=== PATIENT | female | born 1955 | race Caucasian/White ===

== ENCOUNTER 2017-08-08 08:52 | Day surgery (SDC) | payer MEDICARE, SELFPAY ==
[2017-08-08 09:15] VITALS: BP 139/74; PULSE 85; RESP 16; TEMP 36.5; O2SAT 100; BMI 37.6
--- NOTE | 2017-08-08 10:00 | RAD_ITS ---
PROCEDURE: Transforaminal block. DATE OF EXAMINATION: August 08, 2017. INDICATION: Female, 62 years old. Chronic back pain. FLUOROSCOPY TIME (if supplied): (0:21) minutes/seconds Intraoperative fluoroscopic services provided for right L4-L5 and L5-S1 transforaminal block. RAD/Lumbar Spine 2 or 3 Views IMPRESSION: Imaging provided for right L4-L5 and L5-S1 transforaminal block. Electronically Signed: Bartolome Patel MD at 11:32 EST Tel [phone], Service support ,
[2017-08-08] MEDS: MethylPREDNISolone Acetate 80 MG/ML Vial (10:13)
[2017-08-08] MEDS: Bupivacaine 0.25% 30 ML Vial (10:13)
[2017-08-08 10:29] VITALS: BP 131/64; BP 139/74; PULSE 70; RESP 16; TEMP 37.3; O2SAT 99
[2017-08-08 10:34] VITALS: BP 128/97; BP 139/74; PULSE 73; RESP 16; O2SAT 96
[2017-08-08 10:39] VITALS: BP 131/59; BP 139/74; PULSE 70; RESP 16; O2SAT 95
[2017-08-08 10:43] VITALS: BP 138/71; BP 139/74; PULSE 73; RESP 16; TEMP 36.9; O2SAT 95
[2017-08-08 11:12] VITALS: BP 139/74
--- NOTE | 2017-08-08 14:08 | PCM.OPRPT ---
Problem List (1) Lumbosacral radiculopathy Status: Chronic (2) Disc disease, degenerative, lumbar or lumbosacral Status: Chronic Report of Operation Date of Procedure: 08/08/17 Pre-Operative Diagnosis: Lumbosacral radiculopathy, lumbosacral degenerative disc disease, lumbosacral spinal stenosis Post-Operative Diagnosis: Lumbosacral degenerative disc disease, lumbosacral radiculopathy, lumbosacral spinal stenosis Surgery/Procedure Performed:: Right-sided lumbar transforaminal epidural steroid injection L4-5, L5-S1 Description of Surgical Findings:: PROCEDURE: Right sided lumbar transforaminal epidural steroid injection L4-5, L5-S1 PREOPERATIVE DIAGNOSIS: Lumbosacral radiculopathy, lumbosacral degenerative disc disease, lumbosacral spinal stenosis POSTOPERATIVE DIAGNOSIS: Lumbosacral radiculopathy, lumbosacral degenerative disc disease, lumbosacral spinal stenosis ANESTHESIA: MAC COMPLICATIONS: None BLOOD LOSS: Minimal PROCEDURE IN DETAIL: History and physical today was reviewed. Risks and benefits of the procedure were explained. The patient understood, agreed to our procedure, and informed consent was obtained. IV inserted per routine protocol. The patient was taken to the operating room, placed in a prone position with a pillow positioned underneath the abdomen. The right side of her lower back was prepped and draped in a sterile fashion using iodine x3. Under fluoroscopy guidance, on AP view, L4 through S1 vertebral bodies were visualized. Skin and subcutaneous tissues were anesthetized with approximately 5 mL of 1% lidocaine using a 25-gauge regular needle. Under direct visualization with fluoroscopy at approximately 35-degree angle, starting on the right L4, ending on the right L5, using a 22-gauge 3 1/2-inch spinal needle, the needle was advanced via the skin. The tip of the needle was maneuvered and directed towards inferior medial gutter of the transverse process at the superiormost aspect of the neuroforamen Once the tip of the needle was at the vicinity of the foramen after negative aspiration of blood with CSF and confirmation of AP as well as lateral view, a total of 6 mL of preservative-free 0.25% Marcaine with 80 mg of Depo-Medrol was injection in divided doses between those 2 levels. The needles were then removed intact. The patient experienced no signs or symptoms intrathecal, intravascular injection. The patient experienced no paraesthesia. The procedure was completed without any apparent difficult, any complication. The patient appeared to tolerate well. ASSESSMENT AND PLAN: This is a 62-year-old Female with lumbosacral radiculopathy, lumbosacral degenerative disc disease, lumbosacral spinal stenosis status post right sided lumbar transforaminal epidural steroid injection L4-5, L5-S1 the patient will continue her current medications. The patient will follow in approximately 2 weeks for possible repeat of the procedure if indicated.
--- NOTE | 2017-08-08 14:13 | OP.PCM_ITS ---
Problem List (1) Lumbosacral radiculopathy Status: Chronic (2) Disc disease, degenerative, lumbar or lumbosacral Status: Chronic Report of Operation Date of Procedure: 08/08/17 Pre-Operative Diagnosis: Lumbosacral radiculopathy, lumbosacral degenerative disc disease, lumbosacral spinal stenosis Post-Operative Diagnosis: Lumbosacral degenerative disc disease, lumbosacral radiculopathy, lumbosacral spinal stenosis Surgery/Procedure Performed:: Right-sided lumbar transforaminal epidural steroid injection L4-5, L5-S1 Description of Surgical Findings:: PROCEDURE: Right sided lumbar transforaminal epidural steroid injection L4-5, L5-S1 PREOPERATIVE DIAGNOSIS: Lumbosacral radiculopathy, lumbosacral degenerative disc disease, lumbosacral spinal stenosis POSTOPERATIVE DIAGNOSIS: Lumbosacral radiculopathy, lumbosacral degenerative disc disease, lumbosacral spinal stenosis ANESTHESIA: MAC COMPLICATIONS: None BLOOD LOSS: Minimal PROCEDURE IN DETAIL: History and physical today was reviewed. Risks and benefits of the procedure were explained. The patient understood, agreed to our procedure, and informed consent was obtained. IV inserted per routine protocol. The patient was taken to the operating room, placed in a prone position with a pillow positioned underneath the abdomen. The right side of her lower back was prepped and draped in a sterile fashion using iodine x3. Under fluoroscopy guidance, on AP view, L4 through S1 vertebral bodies were visualized. Skin and subcutaneous tissues were anesthetized with approximately 5 mL of 1% lidocaine using a 25-gauge regular needle. Under direct visualization with fluoroscopy at approximately 35-degree angle, starting on the right L4, ending on the right L5, using a 22- gauge 3 1/2-inch spinal needle, the needle was advanced via the skin. The tip of the needle was maneuvered and directed towards inferior medial gutter of the transverse process at the superiormost aspect of the neuroforamen Once the tip of the needle was at the vicinity of the foramen after negative aspiration of blood with CSF and confirmation of AP as well as lateral view, a total of 6 mL of preservative-free 0.25% Marcaine with 80 mg of Depo- Medrol was injection in divided doses between those 2 levels. The needles were then removed intact. The patient experienced no signs or symptoms intrathecal, intravascular injection. The patient experienced no paraesthesia. The procedure was completed without any apparent difficult, any complication. The patient appeared to tolerate well. ASSESSMENT AND PLAN: This is a 62-year-old Female with lumbosacral radiculopathy, lumbosacral degenerative disc disease, lumbosacral spinal stenosis status post right sided lumbar transforaminal epidural steroid injection L4-5, L5-S1 the patient will continue her current medications. The patient will follow in approximately 2 weeks for possible repeat of the procedure if indicated.
== END 2017-08-08 11:29 | disposition home or self-care (01) ==
LOC: SDC 08:53 → AC 08:54
PROVIDERS: Family Provider Internal Medicine; PCP Internal Medicine; Visit Provider Anesthesiology Pain Medicine
PROC: 3E0T3BZ Introduction of Anesthetic Agent into Peripheral Nerves and Plexi, Percutaneous Approach (ICD-10-PCS; CPT 64484; principal; 2017-08-08 09:55)
DX: M51.17 Intervertebral disc disorders with radiculopathy, lumbosacral region (principal); M48.07 Spinal stenosis, lumbosacral region; F32.9 Major depressive disorder, single episode, unspecified; K21.9 Gastro-esophageal reflux disease without esophagitis; J45.909 Unspecified asthma, uncomplicated; K44.9 Diaphragmatic hernia without obstruction or gangrene; Z86.19 Personal history of other infectious and parasitic diseases; Z86.711 Personal history of pulmonary embolism; Z86.718 Personal history of other venous thrombosis and embolism; Z79.899 Other long term (current) drug therapy; Z79.01 Long term (current) use of anticoagulants; M19.90 Unspecified osteoarthritis, unspecified site; E11.9 Type 2 diabetes mellitus without complications; M79.7 Fibromyalgia; Z79.891 Long term (current) use of opiate analgesic
CPT/HCPCS: 64484; 36416; 64483; 72100; 85610; J7120; A4216; J2405

== ENCOUNTER 2017-09-05 07:47 | Day surgery (SDC) | payer MEDICARE, SELFPAY ==
[2017-09-05 08:01] VITALS: BP 141/81; PULSE 90; RESP 18; TEMP 36.6; O2SAT 100; BMI 38.4
[2017-09-05 08:16] LABS: Prothrombin Time Fingerstick 14.9 SEC (11.9-14.4)
[2017-09-05] MEDS: Bupivacaine 0.25% 30 ML Vial (08:42)
[2017-09-05] MEDS: MethylPREDNISolone Acetate 80 MG/ML Vial (08:42)
--- NOTE | 2017-09-05 09:10 | RAD_ITS ---
PROCEDURE: Right L3 S1 lumbar facet block. DATE OF EXAMINATION: September 05, 2017. INDICATION: Female, 62 years old. Chronic low back pain. FLUOROSCOPY TIME (if supplied): (0:10) minutes/seconds Intraoperative imaging provided for right L3-S1 facet joint block. RAD/L/S Spine Min 4 Views IMPRESSION: Imaging provided for right L3-S1 facet joint block. Electronically Signed: Bartolome Patel MD at 9:02 EST Tel [phone], Service support ,
[2017-09-05 09:41] VITALS: BP 128/79; BP 141/81; PULSE 75; RESP 16; TEMP 36.6; O2SAT 100
[2017-09-05 09:45] VITALS: BP 117/67; BP 141/81; PULSE 71; RESP 16; O2SAT 94
--- NOTE | 2017-09-05 09:46 | OP.PCM_ITS ---
Problem List (1) Lumbosacral spondylosis Status: Chronic (2) Disc disease, degenerative, lumbar or lumbosacral Status: Chronic Report of Operation Date of Procedure: 09/05/17 Pre-Operative Diagnosis: Lumbosacral spondylosis, lumbosacral degenerative disc disease, lumbar facet arthropathy Post-Operative Diagnosis: Lumbosacral spondylosis, lumbosacral degenerative disc disease, lumbar facet arthropathy Surgery/Procedure Performed:: Right-sided lumbar facet steroid injection L3, L4 , L5, S1 Description of Surgical Findings:: PROCEDURE: Right-sided lumbar facet steroid injection L3, L4, L5, S1 PREOPERATIVE DIAGNOSIS: Lumbosacral spondylosis, lumbosacral degenerative disc disease, and lumbar facet arthropathy POSTOPERATIVE DIAGNOSIS: Lumbosacral spondylosis, lumbosacral degenerative disc disease, and lumbar facet arthropathy ANESTHESIA: MAC COMPLICATIONS: None BLOOD LOSS: Minimal PROCEDURE IN DETAIL: History and physical today was reviewed. Risks and benefits of the procedure were explained. The patient understood, agreed to our procedure, and informed consent was obtained. IV inserted per routine protocol. The patient was taken to the operating room, placed in a prone position with a pillow positioned underneath the abdomen. The right side of her lower back was prepped and draped in a sterile fashion using iodine x3. Under fluoroscopy guidance, on AP view, L3 through S1 vertebral bodies were visualized. Skin and subcutaneous tissues were anesthetized with approximately 5 mL of 1% lidocaine using a 25-gauge regular needle. Under direct visualization with fluoroscopy at approximately 25-degree angle, starting on the right L3, ending on the right S1, passing through the L4-L5 using a 22-gauge 3 1/2-inch spinal needle, the needle was advanced via the skin. The tip of the needle was maneuvered and directed towards the superior and medial gutter of the transverse process at the vicinity of the medial branch. Once the tip of the needle was in contact with the bone, the needle pulled approximately 2 mm off the bone. After negative aspiration of blood with CSF and confirmation of AP as well as oblique view, a total of 8 mL of preservative-free 0.25% Marcaine with 80 mg of Depo- Medrol was injection in divided doses between those 4 levels. The needles were then removed intact. The patient experienced no signs or symptoms intrathecal, intravascular injection. The patient experienced no paraesthesia. The procedure was completed without any apparent difficult, any complication. The patient appeared to tolerate well. ASSESSMENT AND PLAN: This is a 62-year-old Female with lumbosacral spondylosis, lumbosacral degenerative disc disease, and lumbar facet arthropathy, status post right-sided lumbar facet steroid injection L3 through S1. The patient will continue her current medications. The patient will follow in approximately 2 weeks for possible repeat of the procedure if indicated.
[2017-09-05 09:50] VITALS: BP 123/76; BP 141/81; PULSE 72; RESP 16; O2SAT 93
[2017-09-05 09:55] VITALS: BP 112/62; BP 141/81; PULSE 76; RESP 16; TEMP 36.4; O2SAT 92
[2017-09-05 10:05] VITALS: BP 141/81
== END 2017-09-05 10:17 | disposition home or self-care (01) ==
LOC: SDC 07:48 → AC 07:49
PROVIDERS: Family Provider Internal Medicine; PCP Internal Medicine; Visit Provider Anesthesiology Pain Medicine
PROC: 3E0T3BZ Introduction of Anesthetic Agent into Peripheral Nerves and Plexi, Percutaneous Approach (ICD-10-PCS; CPT 64493; principal; 2017-09-05 09:05)
DX: M47.27 Other spondylosis with radiculopathy, lumbosacral region (principal); M51.17 Intervertebral disc disorders with radiculopathy, lumbosacral region; Z79.891 Long term (current) use of opiate analgesic; Z86.711 Personal history of pulmonary embolism; J45.909 Unspecified asthma, uncomplicated; Z86.19 Personal history of other infectious and parasitic diseases; E11.9 Type 2 diabetes mellitus without complications; M79.7 Fibromyalgia; Z79.899 Other long term (current) drug therapy; Z79.01 Long term (current) use of anticoagulants; F32.9 Major depressive disorder, single episode, unspecified; Z86.718 Personal history of other venous thrombosis and embolism; K21.9 Gastro-esophageal reflux disease without esophagitis
CPT/HCPCS: 64493; 64494; 64495; 36416; 64483; 72110; 85610; J7120; A4216

== ENCOUNTER 2017-11-07 09:32 | Day surgery (SDC) | payer MEDICARE, SELFPAY ==
[2017-11-07] VITALS (7 sets, daily range): BP systolic 123–135; BP diastolic 69–77; PULSE 75–84; RESP 14–20; TEMP 36.5–37.2; O2SAT 95–99; BMI 37.3
--- NOTE | 2017-11-07 10:15 | RAD_ITS ---
PROCEDURE: Right L3-S1 facet joint block. DATE OF EXAMINATION: November 07, 2017. INDICATION: Female, 62 years old. Low back pain. FLUOROSCOPY TIME (if supplied): (0:10) minutes/seconds Intraoperative imaging provided for right L3-S1 facet joint block. RAD/L/S Spine Min 4 Views IMPRESSION: Intraoperative imaging provided for right L3-S1 facet joint block. Electronically Signed: Bartolome Patel MD at 11:01 EDT Tel [phone], Service support ,
[2017-11-07] MEDS: MethylPREDNISolone Acetate 80 MG/ML Vial (10:25)
[2017-11-07] MEDS: Bupivacaine 0.25% 30 ML Vial (10:26)
--- NOTE | 2017-11-07 10:30 | OP.PCM_ITS ---
Problem List (1) Disc disease, degenerative, lumbar or lumbosacral Status: Chronic (2) Lumbosacral spondylosis Status: Chronic Report of Operation Date of Procedure: 11/07/17 Pre-Operative Diagnosis: Lumbosacral spondylosis, lumbosacral degenerative disc disease, lumbar facet arthropathy Post-Operative Diagnosis: Lumbosacral spondylosis, lumbosacral degenerative disc disease, lumbar facet arthropathy Surgery/Procedure Performed:: Right-sided lumbar facet steroid injection L3, L4 , L5, S1 Description of Surgical Findings:: PROCEDURE: Right-sided lumbar facet steroid injection L3, L4, L5, S1 PREOPERATIVE DIAGNOSIS: Lumbosacral spondylosis, lumbosacral degenerative disc disease, and lumbar facet arthropathy POSTOPERATIVE DIAGNOSIS: Lumbosacral spondylosis, lumbosacral degenerative disc disease, and lumbar facet arthropathy ANESTHESIA: MAC COMPLICATIONS: None BLOOD LOSS: Minimal PROCEDURE IN DETAIL: History and physical today was reviewed. Risks and benefits of the procedure were explained. The patient understood, agreed to our procedure, and informed consent was obtained. IV inserted per routine protocol. The patient was taken to the operating room, placed in a prone position with a pillow positioned underneath the abdomen. The right side of her lower back was prepped and draped in a sterile fashion using iodine x3. Under fluoroscopy guidance, on AP view, L3 through S1 vertebral bodies were visualized. Skin and subcutaneous tissues were anesthetized with approximately 5 mL of 1% lidocaine using a 25-gauge regular needle. Under direct visualization with fluoroscopy at approximately 25-degree angle, starting on the right L3, ending on the right S1, passing through the L4-L5 using a 22-gauge 3 1/2-inch spinal needle, the needle was advanced via the skin. The tip of the needle was maneuvered and directed towards the superior and medial gutter of the transverse process at the vicinity of the medial branch. Once the tip of the needle was in contact with the bone, the needle pulled approximately 2 mm off the bone. After negative aspiration of blood with CSF and confirmation of AP as well as oblique view, a total of 8 mL of preservative-free 0.25% Marcaine with 80 mg of Depo- Medrol was injection in divided doses between those 4 levels. The needles were then removed intact. The patient experienced no signs or symptoms intrathecal, intravascular injection. The patient experienced no paraesthesia. The procedure was completed without any apparent difficult, any complication. The patient appeared to tolerate well. ASSESSMENT AND PLAN: This is a 62-year-old female with lumbosacral spondylosis, lumbosacral degenerative disc disease, and lumbar facet arthropathy, status post right-sided lumbar facet steroid injection L3 through S1. The patient will continue her current medications. The patient will follow in approximately 2 weeks for possible repeat of the procedure if indicated.
== END 2017-11-07 11:20 | disposition home or self-care (01) ==
LOC: SDC 09:33 → AC 09:34
PROVIDERS: Family Provider Internal Medicine; PCP Internal Medicine; Visit Provider Anesthesiology Pain Medicine
PROC: 3E0T3BZ Introduction of Anesthetic Agent into Peripheral Nerves and Plexi, Percutaneous Approach (ICD-10-PCS; CPT 64493; principal; 2017-11-07 10:25)
DX: M51.17 Intervertebral disc disorders with radiculopathy, lumbosacral region (principal); M47.27 Other spondylosis with radiculopathy, lumbosacral region; Z79.899 Other long term (current) drug therapy; Z79.891 Long term (current) use of opiate analgesic; J45.909 Unspecified asthma, uncomplicated; G25.81 Restless legs syndrome; Z86.711 Personal history of pulmonary embolism; Z86.718 Personal history of other venous thrombosis and embolism; Z86.19 Personal history of other infectious and parasitic diseases; F32.9 Major depressive disorder, single episode, unspecified; M19.90 Unspecified osteoarthritis, unspecified site; E11.9 Type 2 diabetes mellitus without complications; M79.7 Fibromyalgia
CPT/HCPCS: 64493; 64494; 64495; 64483; 72110; J7120; A4216

== ENCOUNTER → 2017-12-16 12:13 | Outpatient (CLI) | payer MEDICARE, SELFPAY ==
[2017-12-16 12:39] LABS: Absolute Lymphocyte Count 1.62 X10^3/ul (0.83-4.51); Absolute Neutrophil Count 2.5 X10^3/uL (2.0-7.7); Basophil# 0.01 X10^3/uL; Basophil% 0.2 % (0-1); Eosinophil# 0.23 X10^3/uL; Eosinophils% 4.9 % (0-5); Hematocrit 35.7 % (37-47); Hemoglobin 11.9 g/dl (12.0-15.0); Lymphocyte # 1.62 X10^3/ul (4.0); Lymphocyte % 34.5 % (19-41); Mean Corp Hgb Conc 33.3 g/gl (32-36); Mean Corpuscular Hgb 30.4 pg (27.0-32.0); Mean Corpuscular Volume 91.1 fL (81-99); Mean Platelet Vol. 9.4 fl (6.2-12.0); Monocyte# 0.34 X10^3/uL; Monocyte% 7.2 % (0-10); Neutrophil % 53.2 % (47-70); POSITIVE COUNT NO; POSITIVE DIFFERENTIAL NO; POSITIVE MORPHOLOGY NO; Platelet Count 238 K/mm3 (150-450); RBC Distribution Width CV 13.9 % (11.6-14.6); RBC Distribution Width SD 46.2 fl (35.1-43.9); Red Blood Count 3.92 M/mm3 (4.2-5.4); White Blood Count 4.7 K/mm3 (4.4-11.0)
[2017-12-16 12:50] LABS: ALB/GLOB Ratio 1.2 RATIO (0.9-2.4); AST(SGOT) 22 U/L (15-37); Alanine Aminotransfer ALT/SGPT 25 U/L (13-56); Albumin, Serum 3.7 g/dL (3.2-5.0); Alkaline Phosphatase 87 U/L (45-117); Anion Gap 5 (5-15); BUN 15 mg/dL (7-18); BUN/Creat Ratio 19.2 RATIO (10-20); Calcium,Total 8.5 mg/dL (8.5-10.1); Chloride 103 mmol/L (98-107); Creatinine, Serum 0.78 mg/dL (0.55-1.02); EST Glomerular Filtration Rate 79 mL/min (>60); Est Glom Filt Rate - Afr Amer 96 mL/min (>60); Ferritin 82 ng/mL (8-252); Globulin 3.1 g/dL (2.2-4.2); Glucose 101 mg/dL (74-106); Potassium 4.2 mmol/L (3.5-5.1); Protein, Total 6.8 g/dL (6.4-8.2); Sodium Level 137 mmol/L (136-145)
[2017-12-16 13:33] LABS: Vitamin B12 558 pg/mL (211-911)
== END ==
PROVIDERS: Visit Provider Internal Medicine
DX: K86.1 Other chronic pancreatitis (principal); D50.8 Other iron deficiency anemias; Z98.84 Bariatric surgery status
CPT/HCPCS: 36591; 80053; 82607; 82728; 85025; A4216

== ENCOUNTER 2018-01-16 07:25 | Day surgery (SDC) | payer MEDICARE, SELFPAY ==
[2018-01-16 07:49] VITALS: BP 122/82; PULSE 80; RESP 98; TEMP 36.7; BMI 36.3
[2018-01-16 07:50] LABS: Prothrombin Time Fingerstick 12.4 SEC (11.9-14.4)
--- NOTE | 2018-01-16 08:30 | RAD_ITS ---
PROCEDURE: Left lumbar facet block. DATE OF EXAMINATION: January 16, 2018. INDICATION: Female, 62 years old. Back pain. FLUOROSCOPY TIME (if supplied): (0:17) minutes/seconds Intraoperative fluoroscopic imaging provided for left L3-S1 facet joint block. The spinal needles are seen at the appropriate sites. RAD/L/S Spine Min 4 Views IMPRESSION: Fluoroscopic imaging provided for left L3-S1 facet joint block. Electronically Signed: Bartolome Patel MD at 8:18 EDT Tel [phone], Service support ,
[2018-01-16] MEDS: MethylPREDNISolone Acetate 80 MG/ML Vial (08:36)
[2018-01-16] MEDS: Bupivacaine 0.25% 30 ML Vial (08:36)
[2018-01-16 08:50] VITALS: BP 115/68; BP 122/82; PULSE 66; RESP 16; TEMP 36.5; O2SAT 100
[2018-01-16 08:55] VITALS: BP 111/68; BP 122/82; PULSE 72; RESP 18; O2SAT 100
[2018-01-16 09:00] VITALS: BP 110/63; BP 122/82; PULSE 70; RESP 18; O2SAT 100
[2018-01-16 09:05] VITALS: BP 119/69; BP 122/82; RESP 16; TEMP 36.7; O2SAT 97
[2018-01-16 09:30] VITALS: BP 122/82
--- NOTE | 2018-01-16 10:23 | OP.PCM_ITS ---
Problem List (1) Disc disease, degenerative, lumbar or lumbosacral Status: Chronic (2) Lumbosacral spondylosis Status: Chronic Report of Operation Date of Procedure: 01/16/18 Pre-Operative Diagnosis: Lumbosacral spondylosis, lumbosacral degenerative disc disease, lumbar facet arthropathy Post-Operative Diagnosis: Lumbosacral spondylosis, lumbosacral degenerative disc disease, lumbar facet arthropathy Surgery/Procedure Performed:: Left-sided lumbar facet steroid injection L3, L4, L5, S1 Description of Surgical Findings:: PROCEDURE: Left-sided lumbar facet steroid injection L3, L4, L5, S1 PREOPERATIVE DIAGNOSIS: Lumbosacral spondylosis, lumbosacral degenerative disc disease, lumbar facet arthropathy POSTOPERATIVE DIAGNOSIS: Lumbosacral spondylosis, lumbosacral degenerative disc disease, lumbar facet arthropathy ANESTHESIA: MAC COMPLICATIONS: None BLOOD LOSS: Minimal PROCEDURE IN DETAIL: History and physical today was reviewed. Risks and benefits of the procedure were explained. The patient understood, agreed to our procedure, and informed consent was obtained. IV inserted per routine protocol. The patient was taken to the operating room, placed in a prone position with a pillow positioned underneath the abdomen. The left side of her lower back was prepped and draped in a sterile fashion using iodine x3. Under fluoroscopy guidance, on AP view, L3 through S1 vertebral bodies were visualized. Skin and subcutaneous tissues were anesthetized with approximately 5 mL of 1% lidocaine using a 25-gauge regular needle. Under direct visualization with fluoroscopy at approximately 25-degree angle, starting on the left L3, ending on the left S1, passing through the L4-L5 using a 22-gauge 3 1/2-inch spinal needle, the needle was advanced via the skin. The tip of the needle was maneuvered and directed towards the superior and medial gutter of the transverse process at the vicinity of the medial branch. Once the tip of the needle was in contact with the bone, the needle pulled approximately 2 mm off the bone. After negative aspiration of blood with CSF and confirmation of AP as well as oblique view, a total of 8 mL of preservative-free 0.25% Marcaine with 80 mg of Depo- Medrol was injection in divided doses between those 4 levels. The needles were then removed intact. The patient experienced no signs or symptoms intrathecal, intravascular injection. The patient experienced no paraesthesia. The procedure was completed without any apparent difficult, any complication. The patient appeared to tolerate well. ASSESSMENT AND PLAN: This is a 62-year-old Female with Lumbosacral spondylosis, lumbosacral degenerative disc disease, lumbar facet arthropathy, status post left-sided lumbar facet steroid injection L3 through S1. The patient will continue her current medications. The patient will follow in approximately 2 weeks for possible repeat of the procedure if indicated.
== END 2018-01-16 09:31 | disposition home or self-care (01) ==
LOC: SDC 07:25 → AC 07:26
PROVIDERS: Family Provider Internal Medicine; PCP Internal Medicine; Visit Provider Anesthesiology Pain Medicine
PROC: 3E0T3BZ Introduction of Anesthetic Agent into Peripheral Nerves and Plexi, Percutaneous Approach (ICD-10-PCS; CPT 62323; principal; 2018-01-16 08:25)
DX: M47.897 Other spondylosis, lumbosacral region (principal); M51.37 Other intervertebral disc degeneration, lumbosacral region; F32.9 Major depressive disorder, single episode, unspecified; Z79.899 Other long term (current) drug therapy; Z86.19 Personal history of other infectious and parasitic diseases; Z86.711 Personal history of pulmonary embolism; Z86.718 Personal history of other venous thrombosis and embolism; K21.9 Gastro-esophageal reflux disease without esophagitis; K44.9 Diaphragmatic hernia without obstruction or gangrene; J45.909 Unspecified asthma, uncomplicated; I10 Essential (primary) hypertension
CPT/HCPCS: 01992; 62323; 36416; 64483; 72110; 85610; J7120; A4216

== ENCOUNTER → 2018-03-21 10:32 | Outpatient (CLI) | payer MEDICARE, SELFPAY ==
--- NOTE | 2018-03-21 10:34 | BI_ITS ---
MAMMOGRAPHY - BILATERAL SCREENING REASON FOR EXAM: Female, 63 years old. Routine annual screening examination. PERTINENT HISTORY: Aunt with breast cancer. TECHNIQUE: Digital bilateral breast bret (3D mammographic acquisition) in the CC and MLO projections. 2-D mediolateral oblique (MLO) and craniocaudad (CC) views of both breasts were obtained. CAD: Full Field Digital Mammography with Computer Added Detection was performed. COMPARISON: Comparison is made with prior study dated March 16, 2016 and February 05, 2014. FINDINGS: Breast Composition: The breasts are heterogeneously dense, which may obscure small masses. There are no dominant masses or suspicious calcifications. Once again, the reservoir of a port is seen in the right axillary region. No other significant abnormalities are identified. There has been no significant change since the prior study. BI/SCREENING MAMM (CAD), BILAT IMPRESSION: Stable bilateral screening mammogram. Yearly follow-up mammogram recommended. (A) ASSESSMENT CATEGORY: BIRADS Category 2: Benign. A letter regarding these results will be sent to the patient by the facility within 30 days. Approximately 10% of breast cancers are not detected by mammography. A normal mammogram should not delay biopsy of a clinically suspicious abnormality. [id number] Electronically Signed: Bartolome Patel MD at 13:21 EDT Tel [phone], Service support ,
--- NOTE | 2018-03-21 10:39 | BD_ITS ---
STUDY: DUAL ENERGY X-RAY ABSORPTIOMETRY / DXA REASON FOR EXAM: Female, 63 years old. Early menopause. Loss of height. TECHNIQUE: Bone Mineral Density (BMD) measurements of lumbar spine and bilateral hips were obtained. COMPARISON: Comparison is made with prior examination dated March 16, 2016. FINDINGS: Lumbar Spine (L1-L4): g/cm2 (1.216) / T-score (0.1) / Z-score (1.5) Findings are suggestive of normal bone density with a low fracture risk. Left Femur Total: g/cm2 (1.036) / T-score (0.2) / Z-score (1.3) Left Femoral Neck: g/cm2 (0.962) / T-score (-0.5) / Z-score (0.8) Right Femur Total: g/cm2 (0.966) / T-score (-0.3) / Z-score (0.7) Right Femoral Neck: g/cm2 (0.930) / T-score (-0.8) / Z-score (0.5) The T-Scores on the most recent prior examination were: Lumbar Spine (L1-L4): There has been improvement of bone density since the previous examination. Left Femur Total: which represents a worsening of 0.9%. Right Femur Total: which represents a worsening of 7.1%. BD/Dexa Bone Density Study IMPRESSION: The patient is considered normal as outlined below according to World Rogers Organization (WHO) criteria with a low fracture risk. There has been worsening of bone density since the previous examination. Reference Information: The T-score is the number of standard deviations above or below the standard which is normal for young adults at their peak bone mineral density. The World Health Organization (WHO) interprets the T-scores as follows: Above -1 Normal bone density Between -1 and -2.5 Osteopenia Equal to / or below -2.5 Osteoporosis As a practical clinical guideline, osteopenia may be graded as follows: Mild -1 through -1.5 Moderate -1.6 through -2.0 Severe -2.1 through -2.4 The Z-score is the number of standard deviations above or below age-matched controls. A Z-score of less than -1.5 would be considered abnormal. References: 1. NIH Osteoporosis and Related Bone Diseases http://www.osteo.org 2. International Society for Clinical Densitometry http://www.iscd.org 3. National Osteoporosis Foundation http://www.nof.org Electronically Signed: Bartolome Patel MD at 15:07 EDT Tel [phone], Service support ,
== END ==
PROVIDERS: Family Provider Internal Medicine; PCP Internal Medicine; Visit Provider Internal Medicine
DX: Z12.31 Encounter for screening mammogram for malignant neoplasm of breast (principal); Z78.0 Asymptomatic menopausal state
CPT/HCPCS: 77063; 77067; 77080

== ENCOUNTER 2018-04-03 07:46 | Day surgery (SDC) | payer MEDICARE, SELFPAY ==
[2018-04-03 08:05] LABS: Prothrombin Time Fingerstick 13.7 SEC (11.9-14.4)
[2018-04-03 08:15] VITALS: BP 133/73; PULSE 70; RESP 16; TEMP 36.6; O2SAT 99; BMI 34.7
--- NOTE | 2018-04-03 09:00 | RAD_ITS ---
PROCEDURE: Right L3-S1 radiofrequency ablation. DATE OF EXAMINATION: April 03, 2018. INDICATION: Female, 63 years old. Chronic low back pain. FLUOROSCOPY TIME (if supplied): (0:35) minutes/seconds. 9 fluoroscopic spot views were obtained intraoperatively. RAD/L/S Spine Min 4 Views IMPRESSION: Intraoperative fluoroscopic services provided for right L3-S1 radiofrequency ablation. Electronically Signed: Bartolome Patel MD at 8:35 EDT Tel [phone], Service support ,
[2018-04-03] MEDS: Bupivacaine Mpf 0.5% 30 ML VIAL (09:03)
[2018-04-03] MEDS: MethylPREDNISolone Acetate 80 MG/ML Vial (09:03)
[2018-04-03 09:15] VITALS: BP 133/73; BP 95/51; PULSE 68; RESP 16; TEMP 36.8; O2SAT 92
[2018-04-03 09:20] VITALS: BP 106/67; BP 133/73; PULSE 72; RESP 16; O2SAT 94
[2018-04-03 09:25] VITALS: BP 133/73; BP 97/71; PULSE 69; RESP 16; O2SAT 97
[2018-04-03 09:32] VITALS: BP 108/67; BP 133/73; PULSE 67; RESP 16; TEMP 37.1; O2SAT 93
[2018-04-03 10:05] VITALS: BP 133/73
--- NOTE | 2018-04-03 11:20 | OP.PCM_ITS ---
Problem List (1) Disc disease, degenerative, lumbar or lumbosacral Status: Chronic (2) Lumbosacral spondylosis Status: Chronic Report of Operation Date of Procedure: 04/03/18 Pre-Operative Diagnosis: Lumbosacral spondylosis, lumbosacral degenerative disc disease, lumbar facet arthropathy Post-Operative Diagnosis: Lumbosacral spondylosis, lumbosacral degenerative disc disease, lumbar facet arthropathy Surgery/Procedure Performed:: Right-sided lumbar radiofrequency ablation of the medial branch at L3, L4, L5, S1 Description of Surgical Findings:: PROCEDURE: Right-sided lumbar radiofrequency ablation of the medial branch L3, L4, L5, S1 PREOPERATIVE DIAGNOSES: Lumbosacral spondylosis, lumbosacral degenerative disc disease, lumbar facet arthropathy POSTOPERATIVE DIAGNOSES: Lumbosacral spondylosis, lumbosacral degenerative disc disease, lumbar facet arthropathy ANESTHESIA: MAC COMPLICATIONS: None BLOOD LOSS: Minimal PROCEDURE IN DETAIL: History and physical today was reviewed. Risks and benefits of procedure explained. The patient understood, agreed to the procedure and informed consent was obtained. IV inserted per routine protocol. The patient was taken to the operating room, placed in the prone position with a pillow positioned underneath the abdomen. The right side of the lower back was prepped and draped in a sterile fashion using iodine x 3. Under fluoroscopy guidance, on an oblique view, the L3 through S1 vertebral bodies were visualized. The skin and subcutaneous tissue was anesthetized with approximately 10 mL of 1% lidocaine using a 25-gauge regular needle. Under direct visualization with fluoroscopy at approximately 25-degree angle, starting on the right L3, ending on the right S1 passing through the L4-L5 using a 20-gauge 10 cm with a 10 mm curved active tip radiofrequency ablation needle the needle passed through the skin. The tip of the needle was maneuvered and directed towards the superior and medial gutter of the transverse process at the vicinity of the medial branch. Once the tip of the needle was in contact with the bone, the needle pulled approximately 2 mm up the bone. The stylet of each needle was then removed. After negative aspiration of blood with CSF and confirmation of AP as well as oblique view, radiofrequency ablation probe was then inserted at each level. Impedance was then recorded at L3 to be 259, at L4 272, at L5 254, at S1 254 ohm. Motor-evoked potential was then initiated to 1.5 volt without any motor response at each corresponding level. The probe was then removed intact and a total of 6 mL preservative-free 1% lidocaine was injected in divided doses between those 4 levels after negative aspiration of blood with CSF. The radiofrequency ablation probe was then reinserted after confirmation of AP, oblique as well as lateral view. Radiofrequency ablation was then initiated to 80 degrees Celsius for 90 seconds at each level. Once concluded, the probe was then removed intact and a total of 6 mL of preservative-free 0.25% Marcaine with 40 mg Depo-Medrol was injected in divided doses between those 4 levels. The needles were then removed intact. The patient experienced no signs or symptoms of intrathecal, intravascular injection. The patient experienced no paraesthesia. The procedure was completed without any apparent difficulty, any complication. The patient appeared to tolerate well. Sensory as well as motor exam was unchanged from prior to procedure. ASSESSMENT AND PLAN: This is a 63-year-old female with lumbosacral spondylosis, lumbosacral deg enerative disc disease, lumbar facet arthropathy, status post right-sided lumbar radiofrequency ablation of the medial branch L3 through S1. The patient will continue her current medications. The patient will follow up in approximately 2 weeks for reevaluation.
== END 2018-04-03 10:09 | disposition home or self-care (01) ==
LOC: SDC 07:48 → AC 07:48
PROVIDERS: Family Provider Internal Medicine; PCP Internal Medicine; Visit Provider Anesthesiology Pain Medicine
PROC: (CPT 64635; principal; 2018-04-03 08:50)
DX: M47.897 Other spondylosis, lumbosacral region (principal); M51.37 Other intervertebral disc degeneration, lumbosacral region; I10 Essential (primary) hypertension; E11.9 Type 2 diabetes mellitus without complications; M06.9 Rheumatoid arthritis, unspecified; Z79.899 Other long term (current) drug therapy; Z79.01 Long term (current) use of anticoagulants; F32.9 Major depressive disorder, single episode, unspecified; Z86.711 Personal history of pulmonary embolism; Z86.718 Personal history of other venous thrombosis and embolism; Z86.19 Personal history of other infectious and parasitic diseases
CPT/HCPCS: 64635; 64636 ×3; 36416; 72110; 76000; 85610; J7120; A4216; J3490

== ENCOUNTER 2018-05-08 09:42 | Day surgery (SDC) | payer MEDICARE, SELFPAY ==
[2018-05-08 09:58] VITALS: BP 134/76; PULSE 76; RESP 16; TEMP 36.9; O2SAT 96; BMI 35.3
[2018-05-08 10:05] LABS: Prothrombin Time Fingerstick 11.9 SEC (11.9-14.4)
--- NOTE | 2018-05-08 10:42 | RAD_ITS ---
STUDY: X-RAY - LUMBAR SPINE REASON FOR EXAM: Female, 63 years old. Facet block. TECHNIQUE: 4 C-arm view(s) of the lumbar spine were obtained. 14.1 seconds fluoroscopy time. COMPARISON: None FINDINGS: 4 C-arm views show needles in positions compatible with the left facet joints at L2-L3, L3-L4, L4-L5, L5-S1. Correlate with procedure note. Electronically Signed: Gurdeep Vaca MD at 15:27 EST , Service support , RAD/L/S Spine Min 4 Views
--- NOTE | 2018-05-08 10:43 | PCM.OPRPT ---
Problem List (1) Disc disease, degenerative, lumbar or lumbosacral Status: Chronic (2) Lumbosacral spondylosis Status: Chronic Report of Operation Date of Procedure: 05/08/18 Pre-Operative Diagnosis: Lumbosacral spondylosis, lumbosacral degenerative disc disease, lumbar facet arthropathy Post-Operative Diagnosis: Lumbosacral spondylosis, lumbosacral degenerative disc disease, lumbar facet arthropathy Surgery/Procedure Performed:: Left-sided lumbar facet steroid injection L3, L4, L5, S1 Description of Surgical Findings:: PROCEDURE: Left-sided lumbar facet steroid injection L3, L4, L5, S1 PREOPERATIVE DIAGNOSIS: Lumbosacral spondylosis, lumbosacral degenerative disc disease, lumbar facet arthropathy POSTOPERATIVE DIAGNOSIS: Lumbosacral spondylosis, lumbosacral degenerative disc disease, lumbar facet arthropathy ANESTHESIA: MAC COMPLICATIONS: None BLOOD LOSS: Minimal PROCEDURE IN DETAIL: History and physical today was reviewed. Risks and benefits of the procedure were explained. The patient understood, agreed to our procedure, and informed consent was obtained. IV inserted per routine protocol. The patient was taken to the operating room, placed in a prone position with a pillow positioned underneath the abdomen. The left side of her lower back was prepped and draped in a sterile fashion using iodine x3. Under fluoroscopy guidance, on AP view, L3 through S1 vertebral bodies were visualized. Skin and subcutaneous tissues were anesthetized with approximately 5 mL of 1% lidocaine using a 25-gauge regular needle. Under direct visualization with fluoroscopy at approximately 25-degree angle, starting on the left L3, ending on the left S1, passing through the L4-L5 using a 22-gauge 3 1/2-inch spinal needle, the needle was advanced via the skin. The tip of the needle was maneuvered and directed towards the superior and medial gutter of the transverse process at the vicinity of the medial branch. Once the tip of the needle was in contact with the bone, the needle pulled approximately 2 mm off the bone. After negative aspiration of blood with CSF and confirmation of AP as well as oblique view, a total of 8 mL of preservative-free 0.25% Marcaine with 80 mg of Depo-Medrol was injection in divided doses between those 4 levels. The needles were then removed intact. The patient experienced no signs or symptoms intrathecal, intravascular injection. The patient experienced no paraesthesia. The procedure was completed without any apparent difficult, any complication. The patient appeared to tolerate well. ASSESSMENT AND PLAN: This is a 63-year-old Female with Lumbosacral spondylosis, lumbosacral degenerative disc disease, lumbar facet arthropathy, status post left-sided lumbar facet steroid injection [id number]. The patient will continue his current medications. The patient will follow in approximately 2 weeks for reevaluation
[2018-05-08] MEDS: MethylPREDNISolone Acetate 80 MG/ML Vial (10:49)
[2018-05-08] MEDS: Bupivacaine 0.5% PF 10 ML VIAL (10:49)
[2018-05-08 10:55] VITALS: BP 111/48; BP 134/76; PULSE 72; RESP 16; TEMP 36.3; O2SAT 100
--- NOTE | 2018-05-08 10:55 | OP.PCM_ITS ---
Problem List (1) Disc disease, degenerative, lumbar or lumbosacral Status: Chronic (2) Lumbosacral spondylosis Status: Chronic Report of Operation Date of Procedure: 05/08/18 Pre-Operative Diagnosis: Lumbosacral spondylosis, lumbosacral degenerative disc disease, lumbar facet arthropathy Post-Operative Diagnosis: Lumbosacral spondylosis, lumbosacral degenerative disc disease, lumbar facet arthropathy Surgery/Procedure Performed:: Left-sided lumbar facet steroid injection L3, L4, L5, S1 Description of Surgical Findings:: PROCEDURE: Left-sided lumbar facet steroid injection L3, L4, L5, S1 PREOPERATIVE DIAGNOSIS: Lumbosacral spondylosis, lumbosacral degenerative disc disease, lumbar facet arthropathy POSTOPERATIVE DIAGNOSIS: Lumbosacral spondylosis, lumbosacral degenerative disc disease, lumbar facet arthropathy ANESTHESIA: MAC COMPLICATIONS: None BLOOD LOSS: Minimal PROCEDURE IN DETAIL: History and physical today was reviewed. Risks and benefits of the procedure were explained. The patient understood, agreed to our procedure, and informed consent was obtained. IV inserted per routine protocol. The patient was taken to the o perating room, placed in a prone position with a pillow positioned underneath the abdomen. The left side of her lower back was prepped and draped in a sterile fashion using iodine x3. Under fluoroscopy guidance, on AP view, L3 through S1 vertebral bodies were visualized. Skin and subcutaneous tissues were anesthetized with approximately 5 mL of 1% lidocaine using a 25-gauge regular needle. Under direct visualization with fluoroscopy at approximately 25-degree angle, starting on the left L3, ending on the left S1, passing through the L4-L5 using a 22-gauge 3 1/2-inch spinal needle, the needle was advanced via the skin. The tip of the needle was maneuvered and directed towards the superior and medial gutter of the transverse process at the vicinity of the medial branch. Once the tip of the needle was in contact with the bone, the needle pulled approximately 2 mm off the bone. After negative aspiration of blood with CSF and confirmation of AP as well as oblique view, a total of 8 mL of preservative-free 0.25% Marcaine with 80 mg of Depo- Medrol was injection in divided doses between those 4 levels. The needles were then removed intact. The patient experienced no signs or symptoms intrathecal, intravascular injection. The patient experienced no paraesthesia. The procedure was completed without any apparent difficult, any complication. The patient appeared to tolerate well. ASSESSMENT AND PLAN: This is a 63-year-old Female with Lumbosacral spondylosis, lumbosacral degenerative disc disease, lumbar facet arthropathy, status post left-sided lumbar facet steroid injection [id number] S1. The patient will continue his current medications. The patient will follow in approximately 2 weeks for reevaluation
[2018-05-08 11:00] VITALS: BP 119/65; BP 134/76; PULSE 73; RESP 16; O2SAT 96
[2018-05-08 11:05] VITALS: BP 130/60; BP 134/76; PULSE 73; RESP 16; O2SAT 98
[2018-05-08 11:10] VITALS: BP 124/77; BP 134/76; PULSE 70; RESP 16; TEMP 36.4; O2SAT 95
[2018-05-08 11:32] VITALS: BP 134/76
== END 2018-05-08 11:41 | disposition home or self-care (01) ==
LOC: SDC 09:42 → AC 09:44
PROVIDERS: Family Provider Internal Medicine; PCP Internal Medicine; Referring Provider Anesthesiology Pain Medicine; Visit Provider Anesthesiology Pain Medicine
PROC: 3E0T3BZ Introduction of Anesthetic Agent into Peripheral Nerves and Plexi, Percutaneous Approach (ICD-10-PCS; CPT 64493; principal; 2018-05-08 10:50)
DX: M47.27 Other spondylosis with radiculopathy, lumbosacral region (principal); M51.17 Intervertebral disc disorders with radiculopathy, lumbosacral region; M46.96 Unspecified inflammatory spondylopathy, lumbar region; M47.814 Spondylosis without myelopathy or radiculopathy, thoracic region; M51.34 Other intervertebral disc degeneration, thoracic region; M50.10 Cervical disc disorder with radiculopathy, unspecified cervical region; M47.22 Other spondylosis with radiculopathy, cervical region; M19.90 Unspecified osteoarthritis, unspecified site; J45.909 Unspecified asthma, uncomplicated; M79.7 Fibromyalgia; G25.81 Restless legs syndrome; K44.9 Diaphragmatic hernia without obstruction or gangrene; K21.9 Gastro-esophageal reflux disease without esophagitis; F32.9 Major depressive disorder, single episode, unspecified; Z87.19 Personal history of other diseases of the digestive system; Z86.711 Personal history of pulmonary embolism; Z86.718 Personal history of other venous thrombosis and embolism; Z86.2 Personal history of diseases of the blood and blood-forming organs and certain disorders involving the immune mechanism; Z78.0 Asymptomatic menopausal state; Z96.653 Presence of artificial knee joint, bilateral; Z90.49 Acquired absence of other specified parts of digestive tract; Z79.01 Long term (current) use of anticoagulants; Z79.899 Other long term (current) drug therapy; Z79.891 Long term (current) use of opiate analgesic
CPT/HCPCS: 64493; 64494; 64495; 36416; 64483; 72110; 85610; J7120; A4216; J3490

== ENCOUNTER → 2018-05-22 14:17 | Outpatient (CLI) | payer MEDICARE, SELFPAY ==
[2018-05-22 13:42] VITALS: BMI 37.6
[2018-05-22] MEDS: 0.9% Normal Saline 1,000 ML 999 ML IV (14:45)
[2018-05-22 14:54] VITALS: BP 136/74; PULSE 75; RESP 18; TEMP 36.8; O2SAT 99; BMI 35.1
[2018-05-22 14:55] LABS: Mean Corp Hgb Conc 33.3 g/gl (32-36); Mean Corpuscular Hgb 30.2 pg (27.0-32.0); Mean Corpuscular Volume 90.5 fL (81-99); Mean Platelet Vol. 9.3 fl (6.2-12.0); Platelet Count 266 K/mm3 (150-450); RBC Distribution Width CV 14.2 % (11.6-14.6); RBC Distribution Width SD 46.4 fl (35.1-43.9); Red Blood Count 4.31 M/mm3 (4.2-5.4); White Blood Count 5.3 K/mm3 (4.4-11.0)
[2018-05-22 14:56] LABS: Scan Indicated on CBC? Y/N NO
[2018-05-22 15:12] LABS: ALB/GLOB Ratio 1.2 RATIO (0.9-2.4); AST(SGOT) 14 U/L (15-37); Alanine Aminotransfer ALT/SGPT 23 U/L (13-56); Albumin, Serum 3.9 g/dL (3.2-5.0); Alkaline Phosphatase 82 U/L (45-117); Amylase 73 U/L (25-115); Anion Gap 4 (5-15); BUN 16 mg/dL (7-18); BUN/Creat Ratio 20.2 RATIO (10-20); Calcium,Total 8.6 mg/dL (8.5-10.1); Chloride 102 mmol/L (98-107); Creatinine, Serum 0.79 mg/dL (0.55-1.02); EST Glomerular Filtration Rate 78 mL/min (>60); Est Glom Filt Rate - Afr Amer 95 mL/min (>60); Globulin 3.2 g/dL (2.2-4.2); Glucose 103 mg/dL (74-106); Lipase 314 U/L (73-393); Potassium 4.4 mmol/L (3.5-5.1); Protein, Total 7.1 g/dL (6.4-8.2); Sodium Level 135 mmol/L (136-145)
[2018-05-22 16:16] LABS: Color, Urine Yellow (Yellow); Glucose, Dipstick Normal (Normal); Ketone-Dipstick Negative (Negative); Leukocyte Esterase-Dipstick Negative /ul (Negative); Nitrite-Dipstick Negative (Negative); Occult Blood-Urine Negative /ul (Negative); Protein-Dipstick Negative (Negative); Urine Bilirubin Dipstick Negative (Negative); Urine Clarity Clear (Clear); Urine Urobilinogen Normal (Normal); Urine pH 6.5 (5.0 - 8.0)
== END ==
PROVIDERS: Family Provider Internal Medicine; PCP Internal Medicine; Visit Provider Internal Medicine
DX: K86.1 Other chronic pancreatitis (principal)
CPT/HCPCS: 96360; 36591; 80053; 81002; 82150; 83690; 85027; J7030; A4216

== ENCOUNTER → 2018-06-16 11:55 | Outpatient (CLI) | payer MEDICARE, SELFPAY ==
[2018-05-22 14:54] VITALS: BMI 35.1
[2018-06-16 13:10] LABS: International Normalized Ratio 2.4; Prothrombin Time (Protime)PT. 26.2 SECONDS (11.7-14.9)
--- OUTSIDE RECORDS SUMMARY | 2018-08-02 05:50 | XMS RPT_ITS | Continuity of Care Document ---
:1955 Author Organization [facility] Address [address] [place] [address] Phone Care Team Providers Name Role Phone iDma DURAN, Sarah Rebollar Unavailable Antonino Lucas MD Unavailable Princess DURAN, Brandan Buchanan Unavailable Senthil Romero Unavailable Jeremy DUARN, Dr. George Walker Unavailable Kunal Lea DO Unavailable Sarah Pizano MD Unavailable Shantal Tapia Unavailable Eladio Lyons Unavailable Unavailable Kunal Best Unavailable Antonino Hernandez MD Unavailable COMFORT Gallegos Unavailable Unavailable Unavailable Unavailable Problems Name Dates Details Allergic rhinitis (J30.9, 477.9) Comments: get on singulair worked in the past Status: Active Asthma (J45.909, 493.90) Comments: stable on singulari. proair rescue. doingin home aerosol. Status: Active BMI 34.0-34.9,adult (Z68.34, V85.34) Status: Active BMI 36.0-36.9,adult (Z68.36, V85.36) Status: Active Cervical radiculopathy (M54.12, 723.4) Comments: MRI 4-11 DDD moderate bulges. now seeing Dr. romero. injection did help -17 Status: Active Chest pain at rest (R07.9, 786.50) Comments: had stress and echo on hospital at rest but is a sternal pressure and family history CAD. ? need CTA or cath will send to cardio for surther recommendation. on and offchronic Status: Active Chronic pain (G89.29, 338.29) Comments: now see Dr. romero. now and working on this Status: Active Chronic pancreatitis (K86.1, 577.1) Comments: stable on creon knows when flares then IV fliuds and bowel rest. tried lesss xcreonand notice difference. pain in epig area on and off and not image in awhile. Status: Active Current nonsmoker (Renamed from Current non-smoker) (Z78.9, V49.89) Status: Active Degenerative Disc Disease - Lumbar (722.52) Status: Active Deliveries (Parity) Comments: 3, Term Status: Active Deterioration of spinal disc of lower back (M51.37, 722.52) Comments: throught whole spine did back injection epidural cervical.doing every 6 months. george leaving to [place]. reconmmend Dr. romero and i talk to him. kept meds same. stillhaving pain he is going try facet injetions. looking to wean. cervical injection help 10-17 ROM and arm pain. thoracic injections that helped. now getting xray of lumbar ? injection. right leg radiculopathy Status: Active Dysthymic (F34.1, 300.4) Comments: stable right now rate more mild anxiety think related to pain overall good. velma from where came from Status: Active EBV positive mononucleosis syndrome (B27.00, 075) Status: Active Encounter for screening mammogram for breast cancer (Renamed from Encounter for screening mammogram for malignant neoplasm of breast) (Z12.31, V76.12) Status: Active Fever (R50.9, 780.60) Comments: right now low grade willfollow all cx negative esr normal if over 100.5 willcall. Status: Active Fibrocystic breast disease (N60.19, 610.1) Comments: has tender nodule probably cyst will us. mammo good back to edilia to drain like did in past Status: Active Fibromyalgia (M79.7, 729.1) Comments: stable. seeing Dr. ariel Yeboah. colonscopy 2011 Status: Active GERD (gastroesophageal reflux disease) (K21.9, 530.81) Comments: stable Status: Active High blood triglycerides (E78.1, 272.1) Status: Active Hot flashes (Renamed from Menopausal flushing) (N95.1, 627.2) Comments: ? sugar willlcjosafat BS ? steriods Status: Active Iron deficiency anemia due to dietary causes (D50.8, 280.1) Comments: in past see Dr. malik. tobi now better with IV iron and feel so much better. stable now rechecking ferritin now and low was off IV iron for couple years but now low again so will replace. denzel jaimes to use mal absorption as secondary diagnosis to get IV Venofer Covered Status: Active Migraine (G43.909, 346.80) Comments: stable Status: Active Need for prophylactic vaccination and inoculation against influenza (Renamed from Need for immunization against influenza) (Z23, V04.81) Status: Active Nonsmoker (Z78.9, V49.89) Status: Active Obesity, unspecified (E66.9, 278.00) Status: Active Osteoarthritis (M19.90, 715.90) Comments: knee TKA bilateral really helped Status: Active OTHER AND UNSPECIFIED POSTSURGICAL NONABSORPTION (K91.2, 579.3) Status: Active Other vitamin B12 deficiency anemia (D51.8, 281.1) Status: Active Personal history of venous thrombosis and embolism (Z86.718, V12.51) Comments: on low dose coumadin per surgeon for port. at this poit Dr. Malik felt not need coumadin. on asa and stable. now restarting coumadin because PFO nand Dr. lucas wants back on because clot risk withthat, rechecking echo first and effusin to see if will dosevereal line clots. had one related to surgery after SIOMARA. 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 labs negative. refuse mtx. plaquenil rash. still some signs and symptoms. will get back to stefany she is worried about port and infection with meds. right now not sound inflammatory recent labs rheum good Status: Active Port-a-cath in place (Z95.828, V45.89) Comments: has in place flushes Dr. gillette talked about taking out and she does not want to bcuse for blood and IV access. at this point know risk of infection or clot. soem trouble flush last time wi ll look at n ext month if stillhave. if does have problem then check access. ? 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 sent ramya. clear with steriods and keep up with regularly testing. went back to lachelle almanza PFTS 11-15. adviar prn not really need. recheck good with PFTS 3-17 Status: Active S/P gastric bypass (Z98.84, V45.86) Status: Active Sleep disorder (G47.9, 780.50) Comments: use sleepy time work well will alternate with ambien Status: Active Unspecified Diagnosis Status: Active Vitamin D deficiency, unspecified (E55.9, 268.9) Comments: otc vit d3 Status: Active Well woman exam (Renamed from Encounter for well woman exam) (Z01.419, V72.31) Comments: [facility] 04/29/17 - Mammo 03/16/17 - DEXA 03/16/17 - Colonscopy 7- [address] Harrell - Annual Eye Examinations - - TDAP 11/24/11 - Shingles not done will wait until new vaccine out. - Pneumo vacc BD 8-16 Hepatitis panel 2-17 Status: Active Well woman exam (Renamed from Encounter for well woman exam) (Z01.419, V72.31) Comments: 03-09-16 here for [facility] Physical, not need pap, (had hysterectomy) due for mammo and bd. colonscopy 2007 good Status: Active Medications Name Dates Details ALBUTEROL SULFATE HFA, 108MCG/ACT (Inhalation Aerosol Soln) 1 Aerosol Soln for 0 days Refills: 0 Ordered:16-Sep-2006 QuiquePrema Start : 16-Sep-2006 Active Comments:use regularlya t home Amitriptyline HCl 100 MG Oral Tablet 1 Tablet hs for 0 days Quantity: 90 {Tablet} Refills: 3 Ordered:25-Apr-2017 Sarah Pizano MD, MD, Dana M Start : 25-Apr-2017 Active Azelastine HCl 0.1 % Nasal Solution 1 (one) Solution Solution 2 spray each nostril bid for 0 days Quantity: 1 {Each} Refills: 2 Ordered:23-Jul-2016 COMFORT Gallegos Start : 23-Jul-2016 Active Calcium 1200mg 1 qd Active Comments:plus 1000IU Vitamin D3 Creon 17642 UNIT Oral Capsule Delayed Release Particles 2 (two) Capsule DR Part tid romel meals for 0 days Quantity: 540 {Capsule} Refills: 3 Ordered:09-May-2017 Sarah Pizano MD, MD, Dana M Start : 09-May-2017 Active Cymbalta 60 MG Oral Capsule Delayed Release Particles [address] Part QHS / HS for 0 days Quantity: 90 {Capsule} Refills: 3 Ordered:09-May-2017 Sarah Pizano MD, MD, Dana M Start : 09-May-2017 Active DURAGESIC-50, 50MCG/HR (Transdermal Patch 72 Hour) 1 patch Patch 72HR every 3 days for 0 days Quantity: 10 {Patch_72HR} Refills: 0 Ordered:01-Jul-2009 COMFORT Gallegos Start : 01-Jul-2009 Active Estropipate 0.75 MG Oral Tablet 1 Tablet daily for 0 days Quantity: 90 {Tablet} Refills: 3 Ordered:09-May-2017 Sarah Pizano MD, MD, Dana M Start : 09-May-2017 Active Comments:ninety Montelukast Sodium 10 MG Oral Tablet 1 Tablet qd for 0 days Quantity: 90 {Tablet} Refills: 3 Ordered:30-Nov-2016 Sarah Pizano MD, MD, Dana M Start : 30-Nov-2016 Active [place] 5-325 MG Oral Tablet 1 (one) Tablet q 6 hours prn (usual use tid) for 0 days Quantity: 30 {Tablet} Refills: 0 Ordered:13-Jan-2017 Sarah Pizano MD, MD, Dana M Start : 13-Jan-2017 Active Comments:Dr. Romero Omeprazole 40 MG Oral Capsule Delayed Release 1 (one) Capsule DR bid for 0 days Quantity: 180 {Capsule} Refills: 3 Ordered:15-Dec-2017 Sarah Pizano MD, MD, Dana M Start : 15-Dec-2017 Active OneTouch Ultra Blue In Vitro Strip 1 (one) Strip qd for 0 days Quantity: 30 {Strip} Refills: 6 Ordered:29-Oct-2016 Sarah Pizano MD, MD, Dana M Start : 29-Oct-2016 Active Comments:DX: R73.03 PROAIR RESPICLICK, 108 (90 Base)MCG/ACT (Inhalation Aerosol Powder Breath Activated) 1 (one) puff puff qid for 0 days Quantity: 1 {Inhaler} Refills: 4 Ordered:24-Jun-2015 Sarah Pizano MD, MD, Dana M Start : 17-Apr-2015 Active Comments:Dr. Salazar Singulair 10 MG Oral Tablet 1 (one) Tablet QD for 0 days Quantity: 90 {Tablet} Refills: 3 Ordered:02-Sep-2017 Sarah Pizano MD, MD, Dana M Start : 02-Sep-2017 Active Spironolactone 50 MG Oral Tablet 1 (one) Tablet QD for 0 days Quantity: 90 {Tablet} Refills: 3 Ordered:14-Mar-2018 Sarah Pizano MD, MD, Dana M Start : 14-Mar-2018 Active TiZANidine HCl 4 MG Oral Tablet 1 (one) Capsule Tablet tid for 0 days Quantity: 270 {Tablet} Refills: 3 Ordered:30-May-2017 Sarah Pizano MD, MD, Dana M Start : 30-May-2017 Active Vitamin D (Ergocalciferol) 90262 UNIT Oral Capsule 1 (one) capsule twice weekly for 0 days Quantity: 24 {Capsule} Refills: 3 Ordered:08-Mar-2018 Sarah Pizano MD, MD, Dana M Start : 08-Mar-2018 Active Warfarin Sodium 4 MG Oral Tablet 1 Tablet qd as directed for 0 days Quantity: 90 {Tablet} Refills: 3 Ordered:04-Jun-2016 Sarah Pizano MD, MD, Dana M Start : 04-Jun-2016 Active Comments:Dr. Lucas Zolpidem Tartrate 10 MG Oral Tablet 1 Tablet at night prn for 0 days Quantity: 90 {Tablet} Refills: 1 Ordered:06-Feb-2018 Sarah Pizano MD, MD, Dana M Start : 06-Feb-2018 Active Comments:-0-51 called to [facility] ADVAIR DISKUS, 100-50MCG/DOSE (Inhalation Miscellaneous) 1 puff BID for 0 days Refills: 0 Ordered:17-Sep-2008 Prema Lei End : 14-Mar-2008 Inactive ALBUTEROL, 90MCG/ACT (Inhalation Aerosol Solution) 1 puff Q 4hr/PRN for 0 days Refills: 0 Ordered:17-Sep-2008 Prema Lei End : 14-Mar-2008 Inactive ASTEPRO, 0.15% (Nasal Solution) 1 Solution bid for 0 days Quantity: 1 {Solution} Refills: 0 Ordered:12-Oct-2010 Supriya Fung LPN Start : 26-May-2010 End : 12-Oct-2010 Inactive BENADRYL, 25MG (Oral Tablet) 1 (one) Tablet q8hrs prn for 0 days Quantity: 30 {Tablet} Refills: 0 Ordered:25-Mar-2014 COMFORT Gallegos Start : 20-Mar-2014 End : 25-Mar-2014 Inactive BIAXIN, 500MG (Oral Tablet) 1 Tablet bid for 0 days Quantity: 20 {Tablet} Refills: 0 Ordered:24-Aug-2012 COMFORT Gallegos Start : 29-Jun-2012 End : 24-Aug-2012 Inactive CALCIUM 500/VITAMIN D, 753-441XS-MFKP (Oral Tablet) 1 (one) Tablet daily for 30 days Refills: 0 Ordered:04-Dec-2015 Pamella Saavedra CNP Start : 31-Oct-2015 End : 30-Nov-2015 Inactive CARAFATE, 1GM/10ML (Oral Suspension) 2 tsp bid for 0 days Refills: 0 Ordered:24-Aug-2012 COMFORT Gallegos End : 24-Aug-2012 Inactive CLINDAMYCIN HCL, 150MG (Oral Capsule) 1 Capsule q6hrs for 10 days Quantity: 40 {Capsule} Refills: 0 Ordered:09-Jul-2011 Pamella Saavedra CNP Start : 09-Jul-2011 End : 19-Jul-2011 Inactive CLOTRIMAZOLE, 10MG (Mouth/Throat Donovan) 1 Donovan 5 times daily for 10 days Quantity: 50 {Donovan} Refills: 0 Ordered:14-May-2013 Pamella Saavedra CNP Start : 14-May-2013 End : 24-May-2013 Inactive Diflucan 150 MG Oral Tablet uad Tablet Tablet one today, and may repeat in 2 days if not gone for 0 days Quantity: 2 {Tablet} Refills: 0 Ordered:04-Jun-2016 COMFORT Gallegos Start : 09-Mar-2016 End : 04-Jun-2016 Inactive Drisdol 89088 UNIT Oral Capsule 1 Capsule two times a week for 0 days Quantity: 24 {Capsule} Refills: 3 Ordered:13-Jan-2017 Dima DURAN, Sarah Sloan MD, Sarah Rebollar Start : 23-Jul-2016 End : 13-Jan-2017 Inactive GLUCOSAMINE CHONDR 500 COMPLEX (Oral Capsule) for 0 days Refills: 0 Ordered:19-Mar-2011 Supriya Fung LPN End : 19-Mar-2011 Inactive SOFIE, 30MG (Oral Capsule Extended Release 24 Hour) 1 bid for 0 days Refills: 0 Ordered:26-Mar-2009 COMFORT Gallegos End : 26-Mar-2009 Inactive Levaquin 500 MG Oral Tablet 1 Tablet daily for 0 days Quantity: 14 {Tablet} Refills: 0 Ordered:27-Dec-2016 COMFORT Gallegos Start : 13-Dec-2016 End : 27-Dec-2016 Inactive LEVAQUIN, 750MG (Oral Tablet) 1 Tablet daily for 7 days Quantity: 7 {Tablet} Refills: 0 Ordered:06-Feb-2008 Prema Lei Start : 06-Feb-2008 End : 15-Feb-2008 Inactive LIDODERM, 5% (External Patch) Patch uad for 0 days Quantity: 90 {Patch} Refills: 3 Ordered:31-Mar-2010 COMFORT Gallegos Start : 10-Sep-2008 Inactive LYRICA, 75MG (Oral Capsule) 1 Capsule bid for 0 days Quantity: 180 {Capsule} Refills: 3 Ordered:04-Nov-2008 COMFORT Gallegos Start : 04-Nov-2008 End : 07-Feb-2009 Inactive Medrol 4 MG Oral Tablet Therapy Pack 1 (one) Tab Ther Pack uad for 0 days Quantity: 1 {Package} Refills: 0 Ordered:04-Jun-2016 COMFORT Gallegos Start : 27-Apr-2016 End : 04-Jun-2016 Inactive Comments:take with food MULTIVITAMIN ADULTS 50+ (Oral Tablet) 1 (one) Tablet daily for 30 days Refills: 0 Ordered:04-Dec-2015 Quentin ARGUETAPamella Start : 31-Oct-2015 End : 30-Nov-2015 Inactive NASACORT AQ, 55MCG/ACT (Nasal Aerosol Solution) 1 (one) Aerosol Soln 2puffs once daily x 3 days for 0 days Refills: 0 Ordered:29-Dec-2009 Virginia Patricio Start : 09-Apr-2009 Inactive NEXIUM, 40MG (Oral Capsule Delayed Release) [address] qd for 0 days Quantity: 90 {Capsule_DR} Refills: 4 Ordered:10-Oct-2006 Prema Lei Start : 10-Oct-2006 End : 14-Mar-2008 Inactive NYSTATIN (Powder) Powder apply bid for 0 days Quantity: 1 {Powder} Refills: 1 Ordered:21-Dec-2007 Prema Lei Start : 21-Dec-2007 End : 14-Mar-2008 Inactive Nystatin 570930 UNIT/GM External Powder 1 Powder bid for 0 days Quantity: 1 {Each} Refills: 2 Ordered:04-Jun-2016 COMFORT Gallegos Start : 09-Mar-2016 End : 04-Jun-2016 Inactive OMEPRAZOLE, 20MG (Oral Capsule Delayed Release) [address] QD for 0 days Quantity: 90 {Capsule_DR} Refills: 3 Ordered:31-Mar-2010 COMFORT Gallegos Start : 08-Aug-2009 Inactive OMEPRAZOLE, 20MG (PO Cap CR) 1 QD for 0 days Refills: 0 Ordered:01-Aug-2007 Prema Lei End : 14-Mar-2008 Inactive PERCOCET, 5-325MG (Oral Tablet) 1-2 q6h prn for post op pain (5-325 MG) Inactive Comments:George PERMETHRIN, 5% (External Cream) 1 (one) Cream apply cream head to toe leave on overnght and rinse imani for 0 days Quantity: 1 {Tube} Refills: 0 Ordered:22-Apr-2014 COMFORT Gallegos Start : 25-Mar-2014 End : 22-Apr-2014 Inactive PLAQUENIL, 200MG (Oral Tablet) 1 Tablet two times daily for 0 days Quantity: 180 {Tablet} Refills: 0 Ordered:08-Feb-2011 COMFORT Gallegos Start : 02-Nov-2010 End : 08-Feb-2011 Inactive PREDNISONE (NIEVES), 10MG (Oral Tablet) 1 Tablet TAD for 0 days Refills: 0 Ordered:22-Mar-2011 COMFORT Gallegos Start : 19-Mar-2011 End : 22-Mar-2011 Inactive Comments:2 for 3 days, 1 for 3 days PredniSONE 20 MG Oral Tablet 1 Tablet uad for 0 days Quantity: 18 {QS} Refills: 0 Ordered:13-Jan-2017 COMFORT Gallegos Start : 27-Dec-2016 End : 13-Jan-2017 Inactive Comments:2 a d for 5 d, 1 a d for 5d, 1/2 a d for 5 dwith food PREDNISONE, 10MG (Oral Tablet) 1 Tablet 2 a d for 5d, 1 a d for 5d, 1/2 a d for 5 d for 0 days Quantity: 21 {QS} Refills: 0 Ordered:09-Jul-2011 Supriya Fung LPN Start : 22-Mar-2011 End : 09-Jul-2011 Inactive TOPICORT, 0.05% (External Cream) uad Cream to affected area(s) bid for 21 days Refills: 0 Ordered:13-Feb-2015 Dima DURAN, Sarah Sloan MD, Sarah Rebollar Start : 13-Feb-2015 End : 06-Mar-2015 Inactive Comments:give enough to use bid for 3 weeks to vaginal area(s) that are affected TOPICORT, 0.25% (External Cream) 1 (one) Cream twice daily for 0 days Quantity: 1 {Tube} Refills: 0 Ordered:25-Mar-2014 COMFORT Gallegos Start : 20-Mar-2014 End : 25-Mar-2014 Inactive Triamcinolone Acetonide 0.1 % External Cream 1 (one) Cream Cream bid for 0 days Quantity: 1 {Tube} Refills: 0 Ordered:20-Feb-2016 COMFORT Gallegos Start : 16-Jul-2014 End : 20-Feb-2016 Inactive ULTRAM, 50MG (Oral Tablet) 1 Tablet tid/prn for 0 days Quantity: 60 {Tablet} Refills: 3 Ordered:12-Oct-2010 Supriya Fung LPN Start : 11-Jan-2008 End : 12-Oct-2010 Inactive ZITHROMAX Z-NIEVES, 250MG (Oral Tablet) 1 Tablet as directed for 0 days Quantity: 1 {Package} Refills: 0 Ordered:25-Sep-2013 Makenzie Allred LPN Start : 05-Sep-2013 End : 25-Sep-2013 Inactive Comments:TADPt only to take if symptoms worsen. ADVAIR DISKUS, 100-50MCG/DOSE (Inhalation Aerosol Powder Breath Activated) 1 (one) puff(s) BID for 0 days Quantity: 1 {Each} Refills: 3 Ordered:15-Apr-2015 Dima DURAN, Sarah Sloan MD, Sarah Rebollar Start : 15-Apr-2015 End : 15-Apr-2015 Discontinued COUMADIN, 1MG (Oral Tablet) 1 Tablet Daily for 0 days Quantity: 30 {Tablet} Refills: 6 Ordered:10-Jan-2007 Prema Lei Start : 10-Jan-2007 End : 01-Aug-2007 Discontinued CREON 20, 66.4-20-75MU (Oral Capsule Delayed Release Particles) [address] Part with meals for 0 days Quantity: 480 {Capsule_DR_Part} Refills: 3 Ordered:20-Oct-2009 COMFORT Gallegos Start : 20-Oct-2009 End : 24-Nov-2010 Discontinued Comments:This order discontinued per [facility]. GUAIATUSSIN AC, 100-10MG/5ML (Oral Syrup) 1 Teaspoon(s) qhs / HS for 0 days Quantity: 6 {Ounce(s)} Refills: 0 Ordered:03-Oct-2007 Prema Lei Start : 03-Oct-2007 End : 06-Nov-2007 Discontinued LUNESTA, 3MG (Oral Tablet) 1 Tablet qhs for 0 days Quantity: 90 {Tablet} Refills: 0 Ordered:09-Aug-2011 Sarah Pizano MD, MD, Dana M Start : 09-Aug-2011 End : 09-Aug-2011 Discontinued Comments:It is medically nec. for patient to take every day at bedtime. MOHAMUD dispense ninety MEDROL (NIEVES), 4MG (Oral Tablet) 1 (one) Tablet UAD for 0 days Quantity: 1 {Package} Refills: 0 Ordered:08-Jul-2015 Kacye Rodriges LPN Start : 24-Jun-2015 End : 08-Jul-2015 Discontinued NORFLEX, 100MG (Oral Tablet Extended Release 12 Hour) 1 or 2 Tablet ER 12HR hs for 0 days Quantity: 180 {Tablet_ER_12HR} Refills: 3 Ordered:10-Sep-2008 COMFORT Gallegos Start : 10-Sep-2008 End : 23-Jan-2010 Discontinued Comments:This order discontinued per [facility]. ORPHENADRINE CITRATE ER, 100MG (Oral Tablet Extended Release 12 Hour) 1 Tablet ER 12HR bid for 0 days Quantity: 180 {Tablet} Refills: 3 Ordered:15-Oct-2014 Sarah Pizano MD, MD, Dana M Start : 15-Oct-2014 End : 15-Oct-2014 Discontinued PREMARIN, 0.625MG (Oral Tablet) 1 Tablet daily for 0 days Quantity: 90 {Tablet} Refills: 3 Ordered:09-Aug-2011 Sarah Pizano MD, MD, Dana M Start : 09-Aug-2011 End : 09-Aug-2011 Discontinued SERZONE, 150MG (Oral Tablet) 2 am for 0 days Refills: 0 Ordered:17-Sep-2008 Prema Lei End : 08-Jul-2006 Discontinued SERZONE, 150MG (Oral Tablet) 1 hs for 0 days Refills: 0 Ordered:17-Sep-2008 Prema Lei End : 08-Jul-2006 Discontinued Sudafed 12 Hour 120 MG Oral Tablet Extended Release 12 Hour 1 qd prn (120 MG) End : 27-Apr-2016 Discontinued Allergies and Adverse Reactions Name Dates Details Adhesive Tape (Allergy) Status: Active Erythromycins (Allergy) Status: Active Hydrochlorothiazide *DIURETICS* (Allergy) Status: Active Comments: pancreatitis Lasix (Allergy) Status: Active Penicillins (Allergy) Status: Active Plaquenil *ANTIMALARIALS* (Allergy) Status: Active Comments: major rash per patient Past Medical History Name Dates Details Abdominal pain (R10.9, 789.00) Comments: chronic and stable now Status: Resolved as of 04-Apr-2017 Abdominal pain, acute, generalized (R10.84, 789.07) Comments: stomach upset worsen past few weeks. lost weight. on creon and cararfate will see ondina. talk about using mylanta daily. some diarrhea like had before Status: Inactive as of 24-Aug-2012 Abdominal pain, acute, left upper quadrant (R10.12, 789.02) Status: Inactive as of 24-Aug-2012 Abnormal blood chemistry (R79.9, 790.6) 09-Aug-2011 Status: Inactive as of 28-Jun-2013 Abnormal blood sugar (R73.09, 790.29) Comments: exercise add this. diet fairly good. Status: Resolved as of 04-Apr-2017 Abnormal lung sounds (R09.89, 786.7) 09-Aug-2011 Status: Inactive as of 24-Aug-2012 ACUTE EMBOLISM/THROMB DEEP VSL DISTL LWR EXT (453.42) Status: Inactive as of 28-Jun-2013 Acute pancreatitis (K85.90, 577.0) Comments: reveiwed with patient recent tests discharge adn doing very well Status: Inactive as of 24-Aug-2012 Acute sinusitis, unspecified (J01.90, 461.9) Status: Inactive as of 04-Jun-2013 AFTERCARE, LONG-TERM USE, ANTICOAGULANTS (V58.61) Status: Inactive as of 04-Jun-2016 Allergic rhinitis due to other allergen (J30.89, 477.8) Status: Inactive as of 24-Aug-2012 Anemia (D64.9, 285.9) Comments: .Got iron in hospital during January stay pre op hmg 10.6 post op hmg on January 03, 7.5mg, stat labs drawn today and awaiting results Status: Inactive as of 04-Jun-2013 BMI 33.0-33.9,adult (Z68.33, V85.33) Comments: 33.79 Status: Resolved as of 04-Apr-2017 Breast cancer screening (Z12.39, V76.10) Status: Inactive as of 31-Jan-2015 Bronchitis (J40, 490) 12-Oct-2010 Status: Inactive as of 24-Aug-2012 Bronchitis (J40, 490) Status: Inactive as of 20-Feb-2016 Bronchitis, acute (J20.9, 466.0) Status: Resolved as of 09-Dec-2008 BRONCHITIS, NOT SPECIFIED ACUTE OR CHRONIC (490.) (J40, 490) Status: Inactive as of 04-Jun-2016 Burn (T30.0, 949.0) Comments: better. 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 george leaving to [place]. reconmmend Dr. romero and i talk to him. kept meds same. stillhaving pain he is going try facet injetions. looking to wean. injection help 10-17 ROM and arm pain. Status: Resolved as of 29-Apr-2017 Dehydration (E86.0, 276.51) 09-Aug-2011 Status: Inactive as of 24-Aug-2012 Dermatitis (L30.9, 692.9) Status: Inactive as of 20-Feb-2016 Diarrhea (R19.7, 787.91) Status: Inactive as of 24-Aug-2012 Dyspnea, unspecified (R06.00, 786.09) 09-Aug-2011 Status: Inactive as of 24-Aug-2012 Edema (R60.9, 782.3) Comments: better with aldactonestable wrote for jobst stocking Status: Inactive as of 24-Aug-2012 Encounter for central line care (Z45.2, V58.81) Comments: see princess and he wants her to see Dr. malik to see about the coumadin and proph. Dr. gillette looking into if need chagne port. leave up to Dr. gillette about this. Status: Inactive as of 22-Apr-2014 Epigastric pain (R10.13, 789.06) Comments: likely pancreatitis on and off will check CTscan Status: Inactive as of 27-Dec-2016 Fatigue (R53.83, 780.79) Comments: worsen. right now iron low adn off vit D will get back on vit d and do venofer because not able to absorb. Status: Inactive as of 27-Dec-2016 Flu-like symptoms (R68.89, 780.99) Status: Inactive as of 04-Jun-2016 Flu-like symptoms (R68.89, 780.99) Status: Inactive as of 20-Feb-2016 Flu-like symptoms (R68.89, 780.99) Status: Resolved as of 04-Apr-2017 Hypoglycemia (E16.2, 251.2) Status: Inactive as of 31-Jan-2015 Hyponatremia (E87.1, 276.1) Comments: history of SIADH, she over drinks water because of thirst, stable now Status: Resolved as of 04-Apr-2017 Hypoxia (R09.02, 799.02) Comments: 85 before oxygen in office then to 93% Status: Inactive as of 04-Jun-2013 Hysterectomy; Abdominal Status: Inactive as of 24-Aug-2012 Inflamed skin tag (L91.8, 701.9) Status: Inactive as of 25-Mar-2014 Interstitial lung disease (Renamed from Interstitial lung changes) Comments: saw Dr. salazar--PFTS better now. following Status: Inactive as of 24-Aug-2012 Itch of skin (L29.9, 698.9) Status: Inactive as of 22-Apr-2014 Knee pain (M25.569, 719.46) 08-Feb-2011 Comments: in past had OA on xray. injection in past.injections not helping now. send back ortho sx. will ask Dr. george who likes for knees in spectrum. Status: Inactive as of 24-Aug-2012 Leukopenia (D72.819, 288.50) Status: Inactive as of 28-Jun-2013 Low back pain (M54.5, 724.2) Comments: see ariel and doing MRI Status: Inactive as of 16-Dec-2008 Malabsorption syndrome Status: Inactive as of 24-Aug-2012 Nausea (R11.0, 787.02) Status: Inactive as of 22-Apr-2014 Need for prophylactic vaccination (Renamed from Need for immunization against influenza) (Z23, V04.81) Status: Inactive as of 04-Jun-2016 Need for prophylactic vaccination and inoculation against influenza (Z23, V04.81) Status: Inactive as of 31-Jan-2015 Need for vaccination against Streptococcus pneumoniae (Z23, V03.82) Status: Inactive as of 31-Jan-2015 Need for zoster vaccination (Z23, V04.89) Status: Inactive as of 27-Dec-2016 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 Status: Inactive as of 31-Jan-2015 Other specified periodontal diseases (K05.5, 523.8) Comments: abcess dental carries Status: Resolved as of 09-Aug-2011 Other specified viral infection, in conditions classified elsewhere and of unspecified site (B97.89, 079.89) Status: Inactive as of 24-Aug-2012 Pain in unspecified joint (M25.50, 719.40) Comments: get with fever. desirae rf good right now not seeing Dr. tapia because not want to go on meds Status: Inactive as of 28-Jun-2013 Pain of right lower extremity (M79.604, 729.5) Comments: think related to back will see nick 1-5. check doppler. will check hip. seen knapic Status: Inactive as of 04-Jun-2016 pancreatitis Comments: chronic Status: Inactive as of 24-Aug-2012 Pharyngitis, acute (J02.9, 462) Comments: on and off with hoarseness. tired. willcheck EBV. ? allergies not sound bacterial check cx. Status: Inactive as of 27-Dec-2016 Pre-operative examination (Z01.818, V72.84) Comments: preop her in past and delayed surgery. will do preop testing before not done yet. needs filter place so will do. make sure sinus infection. breathing good no CP signs and symptoms Status: Inactive as of 04-Jun-2013 Rash (R21, 782.1) Comments: think sun induced rash from meds rule out lupus rash Status: Inactive as of 13-Jan-2017 S/P knee replacement (V43.65) Comments: left knee Status: Inactive as of 04-Jun-2013 Screening for osteoporosis (Renamed from Encounter for screening for osteoporosis) (Z13.820, V82.81) Status: Inactive as of 04-Jun-2016 Shortness of breath (R06.02, 786.05) Status: Inactive as of 24-Aug-2012 Sinusitis (J32.9, 473.9) Status: Inactive as of 04-Jun-2016 sub-clavian vein stenosis Status: Inactive as of 24-Aug-2012 SVC thrombosis Comments: anticoag for proph because of port 2000, questionable 34 yo PE Status: Inactive as of 28-Jun-2013 Thrush (B37.0, 112.0) Status: Inactive as of 04-Jun-2013 Unspecified asthma with (acute) exacerbation (J45.901, 493.92) 09-Aug-2011 Status: Inactive as of 20-Feb-2016 Unspecified bacterial pneumonia (J15.9, 482.9) 09-Aug-2011 Comments: hear it. Status: Inactive as of 27-Dec-2016 Unspecified Diagnosis Status: Inactive as of 24-Aug-2012 Unspecified Diagnosis Status: Inactive as of 31-Jan-2015 Unspecified Diagnosis Status: Inactive as of 24-Aug-2012 Unspecified Diagnosis Status: Inactive as of 30-Sep-2009 Unspecified Diagnosis Status: Inactive as of 09-Dec-2008 Unspecified Diagnosis Status: Inactive as of 20-Feb-2016 Vulvar irritation (N90.89, 624.8) Comments: use steriod cream helps. if stop comes back and recommend biopsy Status: Inactive as of 20-Feb-2016 Wheezing (R06.2, 786.07) Status: Inactive as of 04-Jun-2016 WWV V73.21 TAHBSO (Renamed from WWV-TAHBSO) Comments: due for mammo. colonscopy 7- good Status: Inactive as of 25-Mar-2014 Yeast infection (B37.9, 112.9) Status: Resolved as of 04-Apr-2017 yeast infection 09-Aug-2011 Comments: under breastpowder keeps away Status: Inactive as of 09-Aug-2011 Yeast infection of the vagina (B37.3, 112.1) Status: Resolved as of 04-Apr-2017 Procedures Procedure Dates Details [place]ACC, [place] (18985) Date: 01-Oct-2016 Cancelled Cholecystectomy Completed GASTRIC BYPASS, OPEN (16505) Completed Comments: 1997, Dr. lindsay did for recurrent pancreatitis, this is what helped her. Hysterectomy; Abdominal Completed JEJUNOSTOMY (97030) Completed Comments: 1995 closed 1997 when had gastric bypass, because of pancreatitis and was tube feed for 2 years Date Value Details 21-Mar-2018 Dexa Bone Density Study Result: Comments: See Note; NOTES: [facility] Imaging Services [address] [place] [address] Dexa Bone Density Study MR#: [id number] Acct: [id number] Name: JOSE J COBIAN Rep #: [id number] : 1955 F 63 From: Bartolome Patel MD PCP: Sarah Pizano MD Status: REG CLI Study: Dexa Bone Density Study Date of Exam: 03/21/18 Exam# [id number] Ordering Dr: Sarah Pizano MD STUDY: D UAL ENERGY X-RAY ABSORPTIOMETRY / DXA REASON FOR EXAM: Female, 63 years old. Early menopause. Loss of height. TECHNIQUE: Bone Mineral Density (BMD) measurements of lumbar spine and bilateral hips were obtained. COMPARISON: Comparison is made with prior examination dated March 16, 2016. FINDINGS: Lumbar Spine (L1-L4): g/cm2 (1.216) / T-score (0.1) / Z-score (1.5) Findings are suggestive of normal bone density with a low fracture risk. Left Femur Total: g/cm2 (1.036) / T-score (0.2) / Z-score (1.3) Left Femoral Neck: g/cm2 (0.962) / T-score (-0.5) / Z-scor e (0.8) Right Femur Total: g/cm2 (0.966) / T-score (-0.3) / Z-score (0.7) Right Femoral Neck: g/cm2 (0.930) / T-score (-0.8) / Z-score (0.5) The T-Scores on the most recent prior examination were: Lum bar Spine (L1-L4): There has been improvement of bone density since the previous examination. Left Femur Total: which represents a worsening of 0.9%. Right Femur Total: which represents a worsening of 7.1%. BD/Dexa Bone Density Study IMPRESSION: The patient is considered normal as outlined below according to World Rogers Organization (WHO) crite dale with a low fracture risk. There has been worsening of bone density since the previous examination. Reference Information: The T-score is the number of standard deviations above or below the standard which is normal for young adults at their peak bone mineral density. The World Health Organization (WHO) interprets the T-scores as follows: Above -1 Normal bone density Between -1 and -2.5 Osteopenia Equal to / or below -2.5 Osteoporosis As a practical clinical guideline, osteopenia may be graded as follows: Mild -1 through -1.5 Moderate -1.6 through -2.0 Calreen re -2.1 through -2.4 The Z-score is the number of standard deviations above or below age-matched controls. A Z-score of less than -1.5 would be considered abnormal. References: 1. NIH Osteoporosis and Related Bone Diseases http://www.osteo.org 2. International Society for Clinical Densitometry http://www.iscd.org 3. National Osteoporosis Foundation http://www.nof.org Electronically Signed: Bartolome Patel MD at 15:07 EDT Tel [phone], Service support , CC: Sarah Pizano MD Clinical Laboratory Science Professor: Signed 21-Mar-2018 SCREENING MAMM (CAD), BILAT Result: Comments: See Note; NOTES: [facility] Imaging Services [address] [place] [address] SCREENING MAMM (CAD), BILAT MR#: [id number] Acct: [id number] Name: JOSE J COBIAN Rep #: [id number] : 1955 F 63 From: Bartolome Patel MD PCP: Sarah Pizano MD Status: REG CLI Study: SCREENING MAMM (CAD), BILAT Date of Exam: 03/21/18 Exam# [id number] Ordering Dr: Sarah Pizano MD MAMMOGRAPHY - BILATERAL SCREENING REASON FOR EXAM: Female, 63 years old. Routine annual screening examination. PERTINENT HISTORY: Aunt with breast cancer. TECHNIQUE: Digital bilateral breast bret (3D mammographic acquisition) in the CC and MLO projections. 2-D mediolateral oblique (MLO) and craniocaudad (CC) views of both breasts were obtained. CAD: Full Field Digital Mammography with Computer Adde d Detection was performed. COMPARISON: Comparison is made with prior study dated March 16, 2016 and February 05, 2014. FINDINGS: Breast Composition: The breasts ar e heterogeneously dense, which may obscure small masses. There are no dominant masses or suspicious calcifications. Once again, the reservoir of a port is seen in the right axillary region. No other s ignificant abnormalities are identified. There has been no significant change since the prior study. BI/SCREENING MAMM (CAD), BILAT IMPRESSION: S table bilateral screening mammogram. Yearly follow-up mammogram recommended. (A) ASSESSMENT CATEGORY: BIRADS Category 2: Benign. A letter regarding these results wi ll be sent to the patient by the facility within 30 days. Approximately 10% of breast cancers are not detected by mammography. A normal mammogram should not delay biopsy of a clinically suspicious abno rmality. [id number] Electronically Signed: Bartolome Patel MD at 13:21 EDT Tel [phone], Service support , CC: Sarah Pizano MD Clinical Laboratory Science Professor: Signed 07-Nov-2017 Operative Report Result: Comments: See Note; NOTES: [facility] Medical Records Department [address] [place] [address] Operative Report 11/07/17 1027 MR#: [id number] Acct: [id number] Name: JOSE J COBIAN Rep #: [id number] : 1955 62 From: Bubba Romero MD PCP: Sarah Pizano MD Status: REG [facility] [place] Y Location: [place] [address] Problem List (1) Disc disease, degenerative, lumbar or lumbosacral Status: C hronic (2) Lumbosacral spondylosis Status: Chronic Report of Operation Date of Procedure: 11/07/17 Pre-Operative Diagnosis: Lumbosacral spondylosis, lumbosacral degenerative disc disease, lumbar facet arthropathy Post-Operative Diagnosis: Lumbosacral spondylosis, lumbosacral degenerative disc disease, lumbar facet arthropathy Surgery/Procedure Performed:: Right- sided lumbar facet steroid injection L 3, L4, L5, S1 Description of Surgical Findings:: PROCEDURE: Right-sided lumbar facet steroid injection L3, L4, L5, S1 PREOPERATIVE DIAGNOSIS: Lumbosacral spondylosis, lumbosacral degenerative disc dis ease, and lumbar facet arthropathy POSTOPERATIVE DIAGNOSIS: Lumbosacral spondylosis, lumbosacral degenerative disc disease, and lumbar facet arthropathy ANESTHESIA: MAC COMPLICATIONS: None BLOOD LOS S: Minimal PROCEDURE IN DETAIL: History and physical today was reviewed. Risks and benefits of the procedure were explained. The patient understood, agreed to our procedure, and informed consent was ob tained. IV inserted per routine protocol. The patient was taken to the operating room, placed in a prone position with a pillow positioned underneath the abdomen. The right side of her lower back was pr epped and draped in a sterile fashion using iodine x3. Under fluoroscopy guidance, on AP view, L3 through S1 vertebral bodies were visualized. Skin and subcutaneous tissues were anesthetized with approx imately 5 mL of 1% lidocaine using a 25-gauge regular needle. Under direct visualization with fluoroscopy at approximately 25-degree angle, starting on the right L3, ending on the right S1, passing thro ugh the L4-L5 using a 22-gauge 3 1/2-inch spinal needle, the needle was advanced via the skin. The tip of the needle was maneuvered and directed towards the superior and medial gutter of the transverse process at the vicinity of the medial branch. Once the tip of the needle was in contact with the bone, the needle pulled approximately 2 mm off the bone. After negative aspiration of blood with CSF and confirmation of AP as well as oblique view, a total of 8 mL of preservative-free 0.25% Marcaine with 80 mg of Depo-Medrol was injection in divided doses between those 4 levels. The needles were then rem jon intact. The patient experienced no signs or symptoms intrathecal, intravascular injection. The patient experienced no paraesthesia. The procedure was completed without any apparent difficult, any c omplication. The patient appeared to tolerate well. ASSESSMENT AND PLAN: This is a 62-year-old female with lumbosacral spondylosis, lumbosacral degenerative disc disease, and lumbar facet arthropathy, status post right-sided lumbar facet steroid injection L3 through S1. The patient will continue her current medications. The patient will follow in approximately 2 weeks for possible repeat of the proc edure if indicated. 11/07/17 1030 <Electronically signed by Bubba Romero MD> Date Bubba Romero MD CC: Sarah Pizano MD; Bubba Romero Signed 07-Nov-2017 L/S Spine Min 4 Views Result: Comments: See Note; NOTES: [facility] Imaging Services [address] [place] [address] L/S Spine Min 4 Views MR#: [id number] Acct: [id number] Name: JOSE J COBIAN Rep #: [id number] : 1955 F 62 From: Bartolome Patel MD PCP: Sarah Pizano MD Status: [facility] Study: L/S Spine Min 4 Views Date of Exam: 11/07/17 Exam# [id number] Ordering Dr: Bubba Romero MD PROCEDURE : Right L3-S1 facet joint block. DATE OF EXAMINATION: November 07, 2017. INDICATION: Female, 62 years old. Low back pain. FLUOROSCOPY TIME (if supplied): (0:10) minutes/seconds Intraoperative imaging prov ided for right L3-S1 facet joint block. RAD/L/S Spine Min 4 Views IMPRESSION: Intraoperative imaging provided for right L3-S1 facet joint block. Electronically Signed: Bartolome Patel MD at 11:01 EDT Tel [phone], Service support , CC: Sarah Pizano MD; Bubba Romero Clinical Laboratory Science Professor: Signed 04-Oct-2017 Cardiology Visit Report Result: Comments: See Note; NOTES: [facility] [address] [place] [address]. [address] [place] [address] OFFICE VISIT Date of Service: 10/03/17 MR#: [id number] Acct: [id number] Name: JOSE J COBIAN Rep #: [id number] : 1955 Provider: Chanel Shaw Age/Sex: 62/F Location: [facility] Status: Signed HPI HPI Details: JOSE J COBIAN, is a 62 F who presents to the office today for for a cardiova scular follow-up. She was last seen in our office in May 2016. She does have a history of patent foramen ovale and history of DVT/PE. She does have a history of multiple autoimmune diseases. She has been having issues with back and neck pain. She does receive routine injection with pain management. This has affected her coumadin. She does not have any chest pain currently. Last week, she did h ave some heaviness. This is not new and she has had them before. She does not have any worsening SOB. She does not have any palpitations that she is aware of. She does not have any lightheadedness/dizzi ness. She does not any near syncope/syncope. She does not have any edema. Intake Vital Signs10/03/17 Height 4 ft 10 in 10/03/17 Weight: 183 lb 10/03/17 Body Mass Index (BMI) 38.2 10/03/17 Blood Press ure 146/82 10/03/17 Blood Pressure Location Rt brachial Intake Visit Reasons: NOT SEEN SINCE 05/2016 Herb Digger Required: No Accompanied by: Is patient in pain?: Yes (chronic pain in spine, a shawn) Pain scale (1-10): 5 Allergies hydroxychloroquine sulfate [From Plaquenil] Allergy (Intermediate, Verified 10/03/17 11:12) Rash Penicillins Allergy (Intermediate, Verified 10/03/17 11:12) Rash adh esive tape Allergy (Verified 10/03/17 11:12) Rash erythromycin base [Erythromycin Base] Allergy (Verified 10/03/17 11:12) Unknown levofloxacin [From Levaquin] Allergy (Verified 10/03/17 11:12) Unknown f urosemide [From Lasix] Adverse Reaction (Verified 10/03/17 11:12) pancretitis hctz Adverse Reaction (Severe, Uncoded 09/27/17 11:32) Unknown Medications Amitriptyline HCl [Elavil] 100 mg PO QHS 07/30 [History Confirmed 09/27/17] Duloxetine Hcl [Cymbalta] 60 mg PO QHS 07/30/13 [History Confirmed 09/27/17] Estrogens, Conjugated [Premarin] 0.625 mg PO QHS 07/30/13 [History Confirmed 10/03/17] Tera lukast [Singulair] 10 mg PO QHS 07/30/13 [History Confirmed 10/03/17] Spironolactone [Aldactone] 100 mg PO QHS 07/30/13 [History Confirmed 09/27/17] fentaNYL patch [Duragesic patch] 50 mcg TRANSDERM. Q7 2H 07/30/13 [History Confirmed 09/27/17] Albuterol Sulfate [Proventil Hfa] 6.7 gm IH PRN PRN 08/29/13 [History Confirmed 10/03/17] Multivitamins,Therapeutic [Multivitamin] 1 tab PO DAILY 08/29/13 [Histo ry Confirmed 10/03/17] Zolpidem Tartrate [Ambien] 10 mg PO QHS PRN PRN 08/29/13 [History Confirmed 09/27/17] Acetaminophen [Tylenol] 650 mg PO Q4H PRN PRN 07/31/15 [History Confirmed 10/03/17] Tizanidin e HCl 4 mg PO TID 07/31/15 [History Confirmed 09/27/17] Ascorbic Acid [Vitamin C] 1,000 mg PO DAILY@0800 09/08/15 [History Confirmed 09/27/17] Ergocalciferol [Vitamin D] 50,000 unit PO TUTH 09/08/15 [Hi story Confirmed 10/03/17] Ibuprofen [Motrin] 400 mg PO BID PRN PRN 09/08/15 [History Confirmed 10/03/17] Calcium (Elemental) [Os-Wandy 500] 500 mg PO DAILY@0800 10/20/15 [History Confirmed 10/03/17] [place] codone Bitart/Apap 5-325 [[place] 5/325] 1 tab PO Q4H PRN PRN 02/22/16 [History Confirmed 09/27/17] Lipase/Protease/Amylase [Saige Matthews 24,000 Units Capsule] 48,000 units PO TIDCM 02/23/16 [History Confirme d 10/03/17] Omeprazole [Prilosec] 40 mg PO QHS 03/17/16 [History Confirmed 10/03/17] Albuterol Aerosols [Ventolin Aerosols] 2.5 mg INHALATION Q4H PRN PRN 08/03/17 [History Confirmed 09/27/17] Fluticason e 44 Mcg [Flovent (SP)] 2 puff INHALATION BID 08/31/17 [History Confirmed 10/03/17] warfarin 4 mg tablet 4 mg PO QHS #90 tab 10/03/17 [Rx Confirmed 10/03/17] Ejection fraction %: 65 to 70 PFSH Medica l History Patent foramen ovale (Chronic) Deep venous thrombosis (Chronic) COPD (chronic obstructive pulmonary disease) (Chronic) Chest pain (Chronic) Surgical History H/O gastric bypass (Chronic) H/ O: hysterectomy (Chronic) History of cholecystectomy (Chronic) Hx of jejunostomy (Chronic) Family History Mother , age 80 Myocardial infarction beginning age 60's, has had several GA's CAD (co ronary artery disease) history of cardiac stents Father , age 65 Cancer pancreatic Grandfather Myocardial infarction Diabetes Social History Smoking Status: Never smoker alcohol inta ke: never substance use type: does not use caffeine: Yes Type: coffee Number of servings: 1 what type of physical activity do you participate in: walking frequency: 1-2 times per week duration: 15- 30 minutes/day seatbelt use: always do you feel safe at home: Yes ROS Const Const: Negative for weakness, fatigue, fever(s) or headache(s) Eyes Eyes: Negative for blind spots, loss of peripheral vision or transient loss of vision ENT ENT: Negative for headache(s), dizziness, tinnitus or Nosebleed/epistaxis Cardio Chest Pain: No Palpitations: No Edema: None Muscle aches with walking: None Resp R espiratory: Negative for SOB with activity, SOB at rest, SOB orthopnea\SOB lying down or Cough GI GI: Negative nausea, vomiting, heartburn or vomiting blood/hematemesis : Negative for hematuria Mus c Musc: Negative for muscle aches/ myalgia Neuro Neuro: Negative for weakness, headache(s), dizziness, near syncope, syncope, lightheadedness or orthostatic symptoms Javan Hematologic/Lymphatic: Negative for easy bleeding Endo Endo: Negative for fatigue Cardiology Exam Const Appearance: cooperative, no acute distress and well developed Orientation: alert, awake and oriented x3 Head Head: normocephali c and atraumatic Mouth: moist mucous membranes Eyes General: appearance normal, both eyes and all related structures Conjunctivae: conjunctivae normal Pupils: PERRL EOM: EOM intact bilaterally Neck Neck : normal visual inspection, no lymphadenopathy and no JVD Carotids: Negative bruit Neck Mass: Negative Neck mass Chest Chest inspection: normal inspection of the chest, symmetric chest movement and othe r (right central line) Auscultation: Bilateral: Clear to Auscultation Cardio Palpation: normal PMI Rate: regular rate Rhythm: regular rhythm Heart sounds: S1 normal and S2 normal; negative rub, gallop o r murmur GI GI: normal to inspection, soft, no hepatosplenomegaly and bowel sounds present; negative tender Neuro General: alert, awake, oriented x3, CN's II-XI intact bilaterally and moves all extremit ies Extremities Pulses: Normal: Right Posterior Tibial Pulse, Left Posterior Tibial Pulse, Right Radial Pulse, Left Radial Pulse Lower Extremity Edema: None: Bilateral Psych Psychological: normal affect Supplemental Info Echocardiogram in 2016 demonstrated an ejection fraction of 65%. Stage I diastolic dysfunction. Saline contrast study demonstrates small right to left intra-atrial shunt probable pa tent foramen ovale. RVSP 20 mmHg. Similar when compared to previous echo. Exercise stress test in 2016 was negative for ischemia at a moderate workload. Assessment AND Plan Problems 1. Patent foramen ovale Q21.1 2. Chronic deep vein thrombosis (DVT) of femoral vein of right lower extremity I82.511 Plan - BUBBA Holden This was documented on 2 separate echocardiograms. She will remain on Coumadin. She will also use antibiotic prophylaxis. Did review therapeutic INRs with Coumadin. She does need to stop her Coumadin injections frequently due to back injections. Advised that she should let our office know whenever she does hold her Coumadin. Also discussed whether or not she may be a candidate for a factor Xa inhibitor. She cannot recall if she has ever had any kind of hyper coagulat ed ability testing done as she has a history of autoimmune diseases and multiple DVTs along with PE. She thinks that her primary care doctor to do this. However she is hesitant to do this due to cost. F or now she will remain on her Coumadin. Orders Orders: Medications Refilled: Plan Detail Additional Comments - BUBBA Holden The above patient was discussed with Dr. Cooper in Dr. Ron zaman bsejuan, he agrees with plan of care. Thank you for allowing us to participate in patient's plan of care, if you have any questions please do not hesitate to call. This note was generated using a voice recognition system and there may be incorrect words, spelling or punctuation errors that were not noted when reviewing the office note prior to saving. Follow Up 1 Year (NATALYAN) Coding Level of Care Cod e Off vis,est,level 3 Diagnoses Patent foramen ovale Q21.1 Chronic deep vein thrombosis (DVT) of femoral vein of right lower extremity I82.511 DVT location: lower extremity Affected thrombotic vein of extremity: femoral Chronicity: chronic Laterality: right Coding Level of Care Code Off vis,est,level 3 Diagnoses Patent foramen ovale Q21.1 Chronic deep vein thrombosis (DVT) of femoral vein of right lower extremity I82.511 DVT location: lower extremity Affected thrombotic vein of extremity: femoral Chronicity: chronic Laterality: right 10/03/17 1202 <Electronically signed by Chanel MAC> Date Chanel MAC 10/04/17 1108<Electronically signed by Eladio Cooper MD> Cosigner Signature: Date ___ (if applicable) Eladio Cooper MD CC: Sarah Pizano MD 05-Sep-2017 Operative Report Result: Comments: See Note; NOTES: [facility] Medical Records Department [address] [place] [address] Operative Report 09/05/17 0944 MR#: [id number] Acct: [id number] Name: JOSE J COBIAN Rep #: [id number] : 1955 62 From: Bubba Romero MD PCP: Sarah Pizano MD Status: [facility] Y Location: [place] [address] Problem List (1) Lumbosacral spondylosis Status: Chronic (2) Disc disease, degenerative, lumbar or lumbosacral Status: Chronic Report of Operation Date of Procedure: 09/05/17 Pre-Operative Diagnosis: Lumbosacral spondylosis, lumbosacral degenerative disc disease, lumbar facet arthropathy Post-Operative Diagnosis: Lumbosacral spondylosis, lumbosacral degenerative disc disease, lumbar facet arthropathy Surgery/Procedure Performed:: Right- sided lumbar facet steroid injection L 3, L4, L5, S1 Description of Surgical Findings:: PROCEDURE: Right-sided lumbar facet steroid injection L3, L4, L5, S1 PREOPERATIVE DIAGNOSIS: Lumbosacral spondylosis, lumbosacral degenerative disc dis ease, and lumbar facet arthropathy POSTOPERATIVE DIAGNOSIS: Lumbosacral spondylosis, lumbosacral degenerative disc disease, and lumbar facet arthropathy ANESTHESIA: MAC COMPLICATIONS: None BLOOD LOS S: Minimal PROCEDURE IN DETAIL: History and physical today was reviewed. Risks and benefits of the procedure were explained. The patient understood, agreed to our procedure, and informed consent was ob tained. IV inserted per routine protocol. The patient was taken to the operating room, placed in a prone position with a pillow positioned underneath the abdomen. The right side of her lower back was pr epped and draped in a sterile fashion using iodine x3. Under fluoroscopy guidance, on AP view, L3 through S1 vertebral bodies were visualized. Skin and subcutaneous tissues were anesthetized with approx imately 5 mL of 1% lidocaine using a 25-gauge regular needle. Under direct visualization with fluoroscopy at approximately 25-degree angle, starting on the right L3, ending on the right S1, passing thro ugh the L4-L5 using a 22-gauge 3 1/2-inch spinal needle, the needle was advanced via the skin. The tip of the needle was maneuvered and directed towards the superior and medial gutter of the transverse process at the vicinity of the medial branch. Once the tip of the needle was in contact with the bone, the needle pulled approximately 2 mm off the bone. After negative aspiration of blood with CSF and confirmation of AP as well as oblique view, a total of 8 mL of preservative-free 0.25% Marcaine with 80 mg of Depo-Medrol was injection in divided doses between those 4 levels. The needles were then rem jon intact. The patient experienced no signs or symptoms intrathecal, intravascular injection. The patient experienced no paraesthesia. The procedure was completed without any apparent difficult, any c omplication. The patient appeared to tolerate well. ASSESSMENT AND PLAN: This is a 62-year-old Female with lumbosacral spondylosis, lumbosacral degenerative disc disease, and lumbar facet arthropathy, status post right-sided lumbar facet steroid injection L3 through S1. The patient will continue her current medications. The patient will follow in approximately 2 weeks for possible repeat of the proce dure if indicated. 09/05/17 0946 <Electronically signed by Bubba Romero MD> Date Bubba Romero MD CC: Sarah Pizano MD; Bubba Romero Signed 04-Sep-2017 L/S Spine Min 4 Views Result: Comments: See Note; NOTES: [facility] Imaging Services [address] [place] [address] L/S Spine Min 4 Views MR#: [id number] Acct: [id number] Name: JOSE J COBIAN Rep #: [id number] : 1955 F 62 From: Bartolome Patel MD PCP: Sarah Pizano MD Status: [facility] Study: L/S Spine Min 4 Views Date of Exam: 09/05/17 Exam# [id number] Ordering Dr: Bubba Romero MD PROCEDURE : Right L3 S1 lumbar facet block. DATE OF EXAMINATION: September 05, 2017. INDICATION: Female, 62 years old. Chronic low back pain. FLUOROSCOPY TIME (if supplied): (0:10) minutes/seconds Intraoperative i maging provided for right L3-S1 facet joint block. RAD/L/S Spine Min 4 Views IMPRESSION: Imaging provided for right L3-S1 facet joint block. El ectronically Signed: Bartolome Patel MD at 9:02 EST Tel [phone], Service support , CC: Sarah Pizano MD; Bubba Romero Clinical Laboratory Science Professor: Signed 08-Aug-2017 Operative Report Result: Comments: See Note; NOTES: [facility] Medical Records Department [address] [place] [address] Operative Report 08/08/17 1408 MR#: [id number] Acct: [id number] Name: JOSE J COBIAN Rep #: [id number] : 1955 62 From: Bubba Romero MD PCP: Sarah Pizano MD Status: DEP [facility] [place] Y Location: [facility] [place] Problem List (1) Lumbosacral radiculopathy Status: Chronic (2) Disc disease, dege nerative, lumbar or lumbosacral Status: Chronic Report of Operation Date of Procedure: 08/08/17 Pre-Operative Diagnosis: Lumbosacral radiculopathy, lumbosacral degenerative disc disease, lumbosacral sp inal stenosis Post-Operative Diagnosis: Lumbosacral degenerative disc disease, lumbosacral radiculopathy, lumbosacral spinal stenosis Surgery/Procedure Performed:: Right-sided lumbar transforaminal epid ural steroid injection L4-5, L5-S1 Description of Surgical Findings:: PROCEDURE: Right sided lumbar transforaminal epidural steroid injection L4-5, L5-S1 PREOPERATIVE DIAGNOSIS: Lumbosacral radiculopa thy, lumbosacral degenerative disc disease, lumbosacral spinal stenosis POSTOPERATIVE DIAGNOSIS: Lumbosacral radiculopathy, lumbosacral degenerative disc disease, lumbosacral spinal stenosis ANESTHESI A: MAC COMPLICATIONS: None BLOOD LOSS: Minimal PROCEDURE IN DETAIL: History and physical today was reviewed. Risks and benefits of the procedure were explained. The patient understood, agreed to our procedure, and informed consent was obtained. IV inserted per routine protocol. The patient was taken to the operating room, placed in a prone position with a pillow positioned underneath the abdomen. T he right side of her lower back was prepped and draped in a sterile fashion using iodine x3. Under fluoroscopy guidance, on AP view, L4 through S1 vertebral bodies were visualized. Skin and subcutaneous tissues were anesthetized with approximately 5 mL of 1% lidocaine using a 25- gauge regular needle. Under direct visualization with fluoroscopy at approximately 35-degree angle, starting on the right L4 , ending on the right L5, using a 22-gauge 3 1/2-inch spinal needle, the needle was advanced via the skin. The tip of the needle was maneuvered and directed towards inferior medial gutter of the transve rse process at the superiormost aspect of the neuroforamen Once the tip of the needle was at the vicinity of the foramen after negative aspiration of blood with CSF and confirmation of AP as well as lat eral view, a total of 6 mL of preservative-free 0.25% Marcaine with 80 mg of Depo- Medrol was injection in divided doses between those 2 levels. The needles were then removed intact. The patient experien wesley no signs or symptoms intrathecal, intravascular injection. The patient experienced no paraesthesia. The procedure was completed without any apparent difficult, any complication. The patient appeared to tolerate well. ASSESSMENT AND PLAN: This is a 62-year-old Female with lumbosacral radiculopathy, lumbosacral degenerative disc disease, lumbosacral spinal stenosis status post right sided lumbar tr ansforaminal epidural steroid injection L4-5, L5-S1 the patient will continue her current medications. The patient will follow in approximately 2 weeks for possible repeat of the procedure if indicated. 08/08/17 1413 <Electronically signed by Bubba Romero MD> Date Bubba Romero MD CC: Sarah Pizano MD; Bubba Romero Signed 08-Aug-2017 Lumbar Spine 2 or 3 Views Result: Comments: See Note; NOTES: [facility] Imaging Services [address] [place] [address] Lumbar Spine 2 or 3 Views MR#: [id number] Acct: [id number] Name: JOSE J COBIAN Rep #: [id number] : 1955 F 62 From: Bartolome Patel MD PCP: Sarah Pizano MD Status: [facility] Study: Lumbar Spine 2 or 3 Views Date of Exam: 08/08/17 Exam# [id number] Ordering Dr: Bubba Romero MD P ROCEDURE: Transforaminal block. DATE OF EXAMINATION: August 08, 2017. INDICATION: Female, 62 years old. Chronic back pain. FLUOROSCOPY TIME (if supplied): (0:21) minutes/seconds Intraoperative fluo roscopic services provided for right L4-L5 and L5-S1 transforaminal block. RAD/Lumbar Spine 2 or 3 Views IMPRESSION: Imaging provided for right L4-L5 and L5-S1 transforaminal block. Electronically Signed: Bartolome Patel MD at 11:32 EST Tel [phone], Service support , CC: Sarah Pizano MD; Bubba Romero Clinical Laboratory Science Professor: Signed 09-May-2017 Operative Report Result: Comments: See Note; NOTES: [facility] Medical Records Department [address] [place] [address] Operative Report 05/09/17 1348 MR#: [id number] Acct: [id number] Name: JOSE J COBIAN Rep #: [id number] : 1955 62 From: Bubba Romero MD PCP: Sarah Pizano MD Status: REG [facility] Y Location: [place] [address] Report of Operation Date of Procedure: 05/09/17 Pre-Operative Diagnosis: Hieu mbosacral radiculopathy, lumbosacral degenerative disc disease, lumbosacral spinal stenosis Post-Operative Diagnosis: Lumbosacral radiculopathy, lumbosacral degenerative disc disease, lumbosacral spinal stenosis Surgery/Procedure Performed:: Caudal epidural steroid injection Description of Surgical Findings:: Preoperative diagnosis: Lumbosacral radiculopathy, lumbosacral degenerative disc disease, hieu mbosacral spinal stenosis Postoperative diagnosis: Lumbosacral radiculopathy, lumbosacral degenerative disc disease, lumbosacral spinal stenosis Procedure: Caudal epidural steroid injection Anesth esia: MAC Complications: None Blood loss: Minimal Procedure in detail: History and physical if there is a risk and benefits of procedure explained the patient understood and agreed to the procedure an informed consent was obtained. IV inserted per routine protocol, the patient was taken to the operating room placed in the prone position with a pillow position underneath the abdomen, the lower back and buttock area was prepped and draped in a sterile fashion using iodine 3 under direct visualization with fluoroscopy the caudal space was identified on lateral view, the skin and subcutaneous tissue were anesthetized with approximately 3 cc of 1% lidocaine using a 25-gauge regular needle, under direct visual visualization with fluoroscopy using a 22-gauge 3- 1/2 inch spinal needle the needle was ad vanced via the skin through the sacral hiatus the tip of the needle was maneuvered passed through the sacrococcygeal ligament advanced approximately S4 area after negative aspiration for blood or CSF a total of 3 cc of contrast were injected to confirm correct placement of the needle as well as cephalad spread the spread was followed to approximately L5 area after repeated negative aspiration and conf irmation AP as well as lateral view a total of 15 cc of preservative-free 0.125% Marcaine with 80 mg of Depo-Medrol were injected easily the needle was then removed intact patient experienced no signs o r symptoms of intrathecal or intravascular injection patient experienced no paresthesia the procedure was completed without any apparent difficulty or any complication and the patient appeared to tolera te it well. Assessment and plan: This is a 62-year-old female with umbo sacral radiculopathy, lumbosacral degenerative disc disease, lumbosacral spinal stenosis status post caudal epidural steroid inj ection patient will continue her current medications patient will follow approximately 2 weeks for possible repeat of the procedure if indicated. 05/09/17 1350 <Electronically signed by Bubba Romero MD> Date Bubba Romero MD CC: Sarah Pizano MD; Bubba Romero Signed 09-May-2017 Fluor Guidance for Spine Inj Result: Comments: See Note; NOTES: [facility] Imaging Services [address] [place] [address] Fluor Guidance for Spine Inj MR#: [id number] Acct: [id number] Name: JOSE J COBIAN Rep #: [id number] : 1955 F 62 From: Bartolome Patel MD PCP: Sarah Pizano MD Status: [facility] Study: Fluor Guidance for Spine Inj Date of Exam: 05/09/17 Exam# [id number] Ordering Dr: Bubba Romero MD PROCEDURE: Caudal block. DATE OF EXAMINATION: May 09, 2017. INDICATION: Female, 62 years old. Chronic low back pain. FLUOROSCOPY TIME (if supplied): (0:07) minutes/seconds Intraoperative im aging was provided for caudal block. The spinal needle is seen along the posterior midportion of the sacrum. 0059 RAD/Fluor Guidance for Spine Inj IM PRESSION: Imaging provided for caudal block. Electronically Signed: Bartolome Patel MD at 14:03 EST Tel [phone], Service support , CC: Sarah leigh MD; Bubba Romero Clinical Laboratory Science Professor: Signed 29-Apr-2017 L/S Spine Min 4 Views Result: Comments: See Note; NOTES: [facility] Imaging Services [address] [place] [address] L/S Spine Min 4 Views MR#: [id number] Acct: [id number] Name: JOSE J COBIAN Rep #: [id number] : 1955 F 62 From: Feliberto Sim MD PCP: Sarah Pizano MD Status: REG CLI Study: L/S Spine Min 4 Views Date of Exam: 04/29/17 Exam# [id number] Ordering Dr: Lizeth Sanches STUDY: X-RAY - LUMBAR SPINE REASON FOR EXAM: Female, 62 years old. Low back pain TECHNIQUE: 5 view(s) of the lumbar spine were obtained. COMPARISON: None FINDINGS: There is mi ld degenerative spondylolisthesis at L4-L5. Degenerative disc disease predominates at L3-L4 and L2-L3. Normal lumbar lordosis. There is no substantial scoliosis. Postsurgical changes of the abdomen. RAD/L/S Spine Min 4 Views IMPRESSION: Mild degenerative spondylolisthesis, L4-L5 Degenerative disc disease, L3-L4, L2-L3 Electronically Signed: Feliberto Sim MD at 11:26 EDT Tel , Service support , CC: Lizeth Sanches; Sarah Pizano MD Clinical Laboratory Science Professor: Signed 21-Mar-2017 Operative Report Result: Comments: See Note; NOTES: [facility] Medical Records Department [address] [place] [address] Operative Report 03/21/17 0841 MR#: [id number] Acct: [id number] Name: JOES J COBIAN Rep #: [id number] : 1955 62 From: Bubba Romero MD PCP: Sarah Pizano MD Status: [facility] Y Location: [facility] [place] Problem List (1) Cervical spine degeneration Status: Chronic (2) Cervical spondy losis Status: Chronic Operative Report Date of Procedure: 03/21/17 PROCEDURE: Left-sided cervical facet steroid injection C4, C5, C6, C7 PREOPERATIVE DIAGNOSES: Cervical spondylosis, cervical degener ative disc disease, and cervical facet arthropathy POSTOPERATIVE DIAGNOSES: Cervical spondylosis, cervical degenerative disc disease, and cervical facet arthropathy ANESTHESIA: MAC COMPLICATIONS: Non e BLOOD LOSS: Minimal PROCEDURE IN DETAIL: History and physical today was reviewed. Risks and benefits of the procedure were explained. The patient understood, agreed to our procedure, and informed co nsent was obtained. IV inserted per routine protocol. The patient was taken to the operating room, placed in a prone position with a pillow positioned underneath the chest. The neck area was prepped and draped in a sterile fashion using iodine x3. Under fluoroscopy guidance, on AP view, C4 through C7 vertebral bodies were visualized. Under direct visualization with fluoroscopy at approximately 15-degr ee angle, starting on the left C4, ending on the left C7, passing through the C5-C6 using a 25-gauge 3-1/2 inch spinal needle, the needle was passed through the skin. The tip of the needle was maneuvere d and directed towards the apophyseal junction of each corresponding vertebra. Once the tip of the needle was at the vicinity of the medial branch and in contact with the bone, the needle was redirected more lateral towards the medial branch. Once in contact with the medial branch, the stylet of each needle was then removed. After negative aspiration of blood with CSF and confirmation of AP as well as oblique view, a total of 3 mL of preservative-free 0.25% Marcaine with 80 mg Depo-Medrol was injected in divided doses between those 4 levels. The needles were then removed intact. The patient experien wesley no signs or symptoms of intrathecal, intravascular injection. The patient experienced no paraesthesia. The procedure was completed without any apparent difficulty, any complication. The patient appe ared to tolerate well. ASSESSMENT AND PLAN: This is a 62-year-old Female with cervical spondylosis, cervical degenerative disc disease, and cervical facet arthropathy, status post left-sided cervical facet steroid injection C4 through C7. The patient will continue her current medications. The patient will follow up in approximately 2 weeks fo reevaluation. 03/21/17901 <Electronically si gned by Bubba Romero MD> Date Bubba Romero MD CC: Sarah Pizano MD; Bubba Romero Signed 21-Mar-2017 Cerv Spine 4 or 5 Views Result: Comments: See Note; NOTES: [facility] Imaging Services [address] [place] [address] Cerv Spine 4 or 5 Views MR#: [id number] Acct: [id number] Name: JOSE J COBIAN Rep #: [id number] : 1955 F 62 From: Daniel Manzano DO PCP: Sarah Pizano MD Status: [facility] Study: Cerv Spine 4 or 5 Views Date of Exam: 03/21/17 Exam# [id number] Ordering Dr: Bubba Romero MD STUDY: X-RAY - CERVICAL SPINE REASON FOR EXAM: Female, 62 years old. Cervical block TECHNIQUE: 4 view(s) of the cervical spine were obtained. COMPARISON: None FINDINGS: Face t block was performed with 4 spot fluoroscopy images obtained. Total fluoroscopy time 14.7 seconds. Please see performing physician's report for further details ORD ER #: [id number] RAD/Cerv Spine 4 or 5 Views IMPRESSION: As above Electronically Signed: Daniel Manzano DO at 16:12 EDT Tel , Service support , CC: Sarah Pizano MD; Bubba Romero Clinical Laboratory Science Professor: Signed 17-Jan-2017 Operative Report Result: Comments: See Note; NOTES: [facility] Medical Records Department [address] [place] [address] Operative Report 01/17/17 1246 MR#: [id number] Acct: [id number] Name: JOSE J COBIAN Rep #: [id number] : 1955 61 From: Bubba Romero MD PCP: Sarah Pizano MD Status: DEP [facility] [place] Y Location: [facility] [place] [place] Problem List (1) Cervical spine degeneration Status: Chronic (2) Cervical spondy losis Status: Chronic Operative Report (Blank) Date of Procedure: 01/17/17 PROCEDURE: Right-sided cervical facet steroid injection C4, C5, C6, C7 PREOPERATIVE DIAGNOSES: Cervical spondylosis, cervica l degenerative disc disease, and cervical facet arthropathy POSTOPERATIVE DIAGNOSES: Cervical spondylosis, cervical degenerative disc disease, and cervical facet arthropathy ANESTHESIA: MAC COMPLICAT IONS: None BLOOD LOSS: Minimal PROCEDURE IN DETAIL: History and physical today was reviewed. Risks and benefits of the procedure were explained. The patient understood, agreed to our procedure, and in formed consent was obtained. IV inserted per routine protocol. The patient was taken to the operating room, placed in a prone position with a pillow positioned underneath the chest. The neck area was pr epped and draped in a sterile fashion using iodine x3. Under fluoroscopy guidance, on AP view, C4 through C7 vertebral bodies were visualized. Under direct physician fluoroscopy at approximately 10 angl e starting on the right C4 ending on the right since C7 passing through the C5- C6. Using a 25-gauge 3-1/2 inch spinal needle was advanced via the skin the tip of the needle's maneuver and directed towar ds the apophyseal junction of each corresponding vertebra once tip of the needle was at the present of the medial branch and contact with the bone the needle pulled approximately 2 mm of the bone after negative aspiration for CSF and confirmation AP as well as oblique view and lateral view a total of 4 cc of preservative-free 0.25% Marcaine with 80 mg of Depo- Medrol was injected in divided doses betwe en those 4 levels the needle was then removed intact patient experienced no signs or symptoms of intrathecal or intravascular injection ,patient experienced no paresthesia , the procedure was completed without any apparent difficulty any complication the patient appeared to tolerate well. ASSESSMENT AND PLAN: This is a 61-year-old Female with cervical spondylosis, cervical degenerative disc disease, a nd cervical facet arthropathy, status post right-sided cervical facet steroid injection C4 through C7. The patient will continue her current medications. The patient will follow up in approximately 2 we eks fo reevaluation. 01/17/17 1253 <Electronically signed by Bubba Romero MD> Date Bubba Romero MD CC: Sarah Pizano MD; Bubba Romero Signed 17-Jan-2017 Cerv Spine 4 or 5 Views Result: Comments: See Note; NOTES: [facility] Imaging Services [address] [place] [address] Verdana 4d Cerv Spine 4 or 5 Views MR#: [id number] Acct: [id number] Name: JOSE J COBIAN #: [id number] : 1955 F 61 From: Tonia Galvan MD PCP: Sarah Pizano MD Status: [facility] Study: Cerv Spine 4 or 5 Views Date of Exam: 01/17/17 Exam# [id number] Ordering Dr: Bubba Romero MD STUDY: X-RAY - CERVICAL SPINE REASON FOR EXAM: Female, 61 years old. Facet block TECHNIQUE: Limited view(s) of the cervical spine were obtained. COMPARISON: Cervical spine MRI report dated October 022010 FINDINGS: Limited frontal views of the cervical spine were obtained during facet blocks. Fluoroscopy time 15.9 seconds. Cumulative dose 2.16 mGy. RAD/Cerv Spine 4 or 5 Views IMPRESSION: Limited views of the cervical spine were obtained during facet blocks. Electronically Signed: Tonia Galvan MD at 16:36 EDT Tel [phone], Service support , CC: Sarah Pizano MD; Bubba Romero Clinical Laboratory Science Professor: Signed 09-Oct-2016 Abdomen/Pelvis WITH Contrast Result: Comments: See Note; NOTES: [facility] Imaging Services [address] [place] [id number] [place] [address] 4d Abdomen/Pelvis WITH Contrast MR#: [id number] Acct: [id number] Name: VIRAJ COBIAN Rep #: [id number] : 1955 F 61 From: Enrike Peres PCP: Sarah Pizano MD Status: REG CLI Study: Abdomen/Pelvis WITH Contrast Date of Exam: 10/09/16 Exam# [id number] Ordering Dr: Sarah Pizano MD STUDY: CT ABDOMEN AND PELVIS WITH CONTRAST REASON FOR EXAM: Female, 61 years old. Epigastric pain. History of chronic pancreatitis and renal cysts. Prior Phil-en-Y surgery. RADIATION DOSAGE (If Sup plied By Facility): CTDIvol = ( 17.73 ) mGy, DLP = ( 1058.83 ) mGycm TECHNIQUE: Transaxial images were obtained from the dome of the diaphragm to the symphysis pubis with oral contrast. 75mL ml of Isov ue 300 contrast was administered. Sagittal and coronal images were reconstructed. Individualized dose optimization techniques were used for this CT. COMPARISON: 06/06/2013 FINDINGS: The visualized lung bases are unremarkable. The visualized portions of the heart are within normal limits. Normal liver. There is intrahepatic/extrahepatic biliary ductal dilatation. The CBD is 8.9 mm in diameter. There are surgical clips in the gallbladder fossa consistent with a prior cholecystectomy. Normal spleen. There is diffuse atrophy of the pancreas. Normal bilateral adre nal glands. Normal right kidney. Normal left kidney. There are surgical clips and sutures present in the upper abdomen, related to prior Phil-en-Y gastric surgery. There is submucosal edema with mild wall thickening of the distal gastric pouch/gastric antrum and pylorus noted, suggestive of antral gastritis. Normal small intestine. Oral contrast has not reached into the most of the colon. Abundant s tool is seen in the transverse and descending colon, consistent with constipation. There is non-visualization of the appendix. Multiple small subcentimeter reactive lymph nodes are seen in the root of t he small bowel mesentery and in right lower quadrant. There is minimal atherosclerotic calcification of the distal abdominal aorta, without a demonstrated aneurysm. Normal inferior vena cava. Previousl y seen IVC filter has been removed. Small subcentimeter reactive periaortic lymph nodes are present. The urinary bladder is partially empty. There is absence of the uterus consistent with a prior hyste rectomy. No free fluid or free intraperitoneal air. Normal abdominal wall. There is lower lumbosacral degenerative facet arthrosis. CT/Abdomen/Pe lvis WITH Contrast IMPRESSION: 1. Status post prior Phil-en-Y gastric bypass surgery. Submucosal edema/mild wall thickening of the gastric pouch and antrum/pylorus is seen, suggestive of antral gastriti s. Please correlate clinically. 2. Abundant stool is present in a distended transverse colon and descending colon, consistent with constipation. 3. Prior cholecystectomy and mild intrahepatic/extrahepat ic biliary ductal dilatation. Electronically Signed: Terra Peres MD at 9:47 EDT Tel , Service support [phone], CC: Sarah Pizano MD Clinical Laboratory Science Professor: Signed 23-Aug-2016 Operative Report Result: Comments: See Note; NOTES: [facility] Medical Records Department [address] [place] [address] Operative Report MR#: [id number] Acct: [id number] Name: JOSE J COBIAN Rep #: [id number] : 1955 61 From: Bubba Romero MD PCP: Sarah Pizano MD Status: DEP [facility] [place] DATE OF SERVICE: 08/09/2016 DATE OF PROCEDURE: August 09, 2016. ATTENDING PHYSICIAN: Bubba Romero M.D. PROCEDURE: Left-sided thoracic facet steroid injection T4-T5, T6-T7. PREOPERATIVE DIAGNOSES: Thoracic spondylosis, thoracic degenerative disk disease, thoracic facet arthropathy. POSTOPERATIVE DIAGNO SES: Thoracic spondylosis, thoracic degenerative disk disease, thoracic facet arthropathy. ANESTHESIA: MAC. COMPLICATIONS: None. BLOOD LOSS: Minimal. PROCEDURE IN DETAIL: History and physical today was reviewed. Risks and benefits of the procedure explained. The patient understood, agreed to the procedure and informed consent was obtained. IV inserted per routine protocol. The patient was taken to the operating room, placed in the prone position with a pillow positioned underneath the chest. The upper part of her back area was prepped and draped in a sterile fashion using iodine x3. Under fluoro scopy guidance, on AP view, the T4 through T7 vertebral bodies were visualized. The skin and subcutaneous tissues were anesthetized with approximately 5 mL of 1% lidocaine using a 25-gauge regular needl e. Under direct visualization with fluoroscopy at approximately 10-degree angle, starting on the left T4, ending on the left T7, passing through the T5-T6 using a 25-gauge 3-1/2 inch spinal needle, the needle was advanced via the skin, the tip of the needle was maneuvered and directed towards the apophyseal junction of each corresponding vertebra. Once the tip of the needle was at the vicinity of the medial branch and in contact with the bone, the needle pulled approximately 2 mm up the bone. After negative aspiration of blood with CSF and confirmation on AP as well as oblique view, a total of 8 mL of preservative-free 0.25% Marcaine with 80 mg of Depo-Medrol was injected in divided doses between those 4 levels. The patient experienced no signs or symptoms of intrathecal, intravascular injection. The patient experienced no paraesthesia. The procedure was completed without any apparent difficulty, any complication. The patient appeared to tolerate well. ASSESSMENT AND PLAN: This is a 61-year-old female with thoracic spondylosis, thoracic degenerative disk disease, thoracic facet arthropathy, status post left-sided thoracic facet steroid injection T4 through T7. The patient will continue her cu rrent medications. The patient will follow up in approximately 2 weeks for possible repeat of the procedure if indicated. Bubba Romero MD T: [facility] JOB: [id number] 08/23/16 1357 <Electronica lly signed by Bubba Romero MD> Date Bubba Romero MD Cosigner Signature (If Indicated): Date ____ CC: Sarah Pizano MD; Bubba Romero Date Dictated: 08/09/16 1311 Date Transcribed: 08/09/16 131 Clinical Laboratory Science Professor: Signed 09-Aug-2016 Thoracic Spine 3 Views Result: Comments: See Note; NOTES: [facility] Imaging Services [address] [place] [address] Verdana 4d Thoracic Spine 3 Views MR#: [id number] Acct: [id number] Name: JOSE J COBIAN Chantale p #: [id number] : 1955 F 61 From: Azalia Fernandes MD PCP: Sarah Pizano MD Status: [facility] Study: Thoracic Spine 3 Views Date of Exam: 08/09/16 Exam# [id number] Ordering Dr: Bubba Romero MD [facility] DY: X-RAY - THORACIC SPINE REASON FOR EXAM: Female, 61 years old. Documentation of fluoroscopic radiation during thoracic facet injection. TECHNIQUE: Four view(s) of the thoracic spine were obtained. COMPARISON: None. FINDINGS: 12.9 seconds of fluoroscopic radiation was utilized during the procedure. For additional details, please see report by performing physi teetee. RAD/Thoracic Spine 3 Views IMPRESSION: Documentation of fluoroscopic radiation use. Electronically Signed: Azalia Fernandes MD at 1 2:18 EST , Service support [phone], CC: Sarah Pizano MD; Bubba Romero Clinical Laboratory Science Professor: Signed 01-Jun-2016 PT D/C of Non Returning Pt (1) Result: Comments: See Note; NOTES: [facility] Physical Therapy [facility] [address] [place] [address]. [address] [place] [address] Fax REHABILITATION SERVICES DISCHAR GE SUMMARY MR#: [id number] Acct: [id number] Name: JOSE J COBIAN Rep #: [id number] : 1955 61 From: Mac Aquino PT, Cert. MDT, OCS Referring Dr.: Bubba Romero Status: REG RCR Insurance: [employer] HP - Discharge Summary (1) - Patient Information JOSE J COBIAN was seen in my office for initial evaluation on 03/19/16. The following Plan of Care was established for this patient: Initial Frequency: 2x /Week Initial Duration: 6 Weeks - Anticipated Interventions Patient/Client Instruction: Educate patient on: Plan of Care For the Purpose of:: To improve health and function, To improve decision making Therapeutic Exercise to Include: Strength training, Balance training, Body mechanics For the Purpose of:: To improve muscle performance and motor function Manual Therapy Techniques to Include: Massage, Mobilization, Passive ROM For the Purpose of:: To decrease pain, To increase ROM This patient was last seen in our office 04/12/16. Pertinent comments regarding their Physical therapy will appear below: Patient was seen for PT for upper thoracic spine pain GROSS, due to other medical issues patient had ro cancell appointments At this point I will be discontinui ng this patient from physical therapy. I would be happy to see this patient again in the future if found appropriate by the physician. Thank you! Mac Aquino, PT, <Electronically signed b y Mac Aquino PT, Cert. MDT, OCS> 06/01/16 0926 CC: Sarah Pizano MD; Bubba Romero JLA Signed 05-Apr-2016 Operative Report Result: Comments: See Note; NOTES: [facility] Medical Records Department [address] [place] [address] Operative Report MR#: [id number] Acct: [id number] Name: JOSE J COBIAN Rep #: [id number] : 1955 61 From: Bubba Romero MD PCP: Sarah Pizano MD Status: DEP [facility] [place] DATE OF SERVICE: 03/22/2016 DATE OF SERVICE: March 22, 2016 ATTENDING PHYSICIAN: Bubba Romero MD PROCEDURE: Left-sided thoracic facet steroid injection, T4, T5, T6, T7. PREOPERATIVE DIAGNOSES: Thoracic spondylosis, thoracic degenerative disk disease, and thoracic facet arthropathy. POSTOPERATIVE DIAGNOSES: Thoracic spondylosis, thoracic degenerative disk disease, and thoracic facet arthropathy. ANESTHESIA: MAC. COMPLICATIONS: None. BLOOD LOSS: Minimal. PROCEDURE IN DETAIL: History and physi wandy today was reviewed. Risks and benefits of the procedure were explained. The patient understood, agreed to our procedure and informed consent was obtained. IV inserted per routine protocol. The patie nt was taken to the operating room, placed in the prone position with a pillow positioned underneath the chest. The upper part of her back area was prepped and draped in a sterile fashion using iodine x 3. Under fluoroscopy guidance with AP view, the T4 through T7 vertebral bodies were visualized. The skin and subcutaneous tissues were anesthetized with approximately 5 mL of 1% lidocaine using a 25-gau ge regular needle. Under direct visualization with fluoroscopy at approximately 5-degree angle, starting on the left T4, ending on the left T7, passing through the T5-T6 using a 25-gauge 2-1/2 inch spin al needle, the needle was advanced via the skin. The tip of the needle was maneuvered and directed towards the apophyseal junction of each corresponding vertebra. Once the tip of the needle was at the v icinity of the medial branch and contact with the bone, the needle pulled approximately 2 mm off the bone. After negative aspiration of blood with CSF and confirmation of AP as well as oblique view, a t otal of 6 mL preservative-free 0.25% Marcaine with 80 mg of Depo-Medrol was injected in divided doses between those 4 levels. The patient experienced no signs or symptoms of intrathecal, intravascular i njection. The patient experienced no paraesthesia. Procedure was completed without any apparent difficulty, any complication. The patient appeared to tolerate well. ASSESSMENT AND PLAN: This is a 61-ye ar-old female with thoracic spondylosis, thoracic degenerative disk disease, and thoracic facet arthropathy, status post left-sided thoracic facet steroid injection T4 through T7. The patient will luís nue her current medications. The patient will follow up in approximately 2 weeks for possible repeat of the procedure if indicated. Bubba Romero MD T: [facility] JOB: [id number] 04/05/16 1351 <E lectronically signed by Bubba Romero MD> Date Bubba Romero MD Cosigner Signature (If Indicated): Date CC: Sarah Pizano MD; Bubba Romero Date Dictated: 03/22/161415 Date Transcribed: 03/22/161415 Clinical Laboratory Science Professor: Signed 01-Apr-2016 Echocardiogram Complete Result: Comments: See Note; NOTES: [facility] Cardiovascular Services [address] [place] [address] Echo Complete 04/01/16 1256 MR#: [id number] Acct: [id number] Name: JOSE J COBIAN Rep #: [id number] : 1955 61 From: Antonino Lucas MD Attending Dr: Antonino Lucas MD Status: REG CLI Ordering Dr: Antonino Lucas MD Date: 04/01/16 Location: [facility] Sex: F C Admitted: Reason For Study: chest pain Procedure This was a 2D Doppler, Color Flow transthoracic echocardiogram. Exam performed in department. Left Ventricle Normal size and thickness. The estimated ejection fraction is 65 %. Stage 1 diastolic dysfunction. No regional wall motion abnormalities noted. Right Ventricle Normal size and thickness. Normal systolic function. Atria Normal left atrium. Normal right atrium. No rmal atrial septum. Saline contrast study demonstrates small right to left interatrial shunt. Probable patent foramen ovale. Mitral Valve The mitral valve is structurally normal. No prolapse or stenosi s seen. Tricuspid Valve Normal tricuspid valve. Trivial tricuspid valve insufficiency. Right ventricular systolic pressure estimated to be 20 mmHg. Aortic Valve Trisinus/trileaflet aortic valve. Isabell l aortic valve. Pulmonic Valve Normal pulmonic valve. Great Vessels Normal aortic root. Normal arch. Normal inferior vena cava. Inferior vena cava collapse with sniff. Pericardium/Pleural No pericardi al effusion. Medication Performed a rapid injection of agitated mix of 9 cc saline and 1cc air to assess for atrial septal defect. MMode/2D Measurements & Calculations LVIDd: 3.9 cm IVSd: 0.92 cm Ao root diam: 2.5 cm LVIDs: 2.4 cm LVPWd: 1.0 cm LA dimension: 3.7 cm RVDd: 2.6 cm FS: 38.6 % LAV(MOD-bp): 44.6 ml E DV(MOD-sp4): 51.9 ml EDV(MOD-sp2): 38.7 ml LAV(MOD-bp) Indexed: 25.8 ml/m2 ESV(MOD- sp4): 15.3 ml EF(MOD-sp2): 69.8 % LAV(MOD-sp2): 41.7 ml EF(MOD-sp4): 70.6 % LAV(MOD-sp4): 45.0 ml SV(MOD-sp4): 36.6 ml SV(MOD-sp2): 27.0 ml LA A4 area: 16.9 cm2 ___ RA A4 area: 12.0 cm2 Doppler Measurements & Calculations MV E max ishmael: 77.0 cm/sec Lat Peak E' Ishmael: 11.8 cm/sec Med Peak E' Ishmael: 9.7 cm/sec MV A max ishmael: 101.0 cm/sec E/E' lat: 6.5 E/E' med : 8.0 MV E/A: 0.76 Ao V2 max: 147.2 cm/sec LV V1 max: 120.3 cm/sec PA V2 max: 82.7 cm/sec Ao max P.7 mmHg LV V1 max P.8 mmHg TR max ishmael: 192.1 cm/sec TR max P.9 mmHg Interpretation Summary The estimated ejection fraction is 65 %. Stage 1 diastolic dysfunction. Saline contrast study demonstrates small right to left interatrial shunt. Probable patent foramen ovale. Right ventricular systolic pressure estimated to be 20 mmHg. C ompared to echo report dated 2016, no appreciable changes noted, and PFO again noted. Orderi ng Physician: Antonino Lucas Referring Physician: Sarah Pizano Performed By: Cherelle Apple, CYNTHIA, RVT 04/01/16 1515 Date ____ Antonino Lucas MD CC: Sarah Pizano MD; Antonino Lucas MD Date Dictated: 04/01/16 1256 Date Transcribed: 04/01/16 1515 Clinical Laboratory Science Professor: Signed 22-Mar-2016 Breast Limited Unilateral Result: Comments: See Note; NOTES: [facility] Imaging Services [address] [place] [address] Verdana 4d Breast Limited Unilateral MR#: [id number] Acct: [id number] Name: JOSE J COBIAN Rep #: [id number] : 1955 F 61 From: Bartolome Patel MD PCP: Sarah Pizano MD Status: REG CLI Study: Breast Limited Unilateral Date of Exam: 03/22/16 Exam# [id number] Ordering Dr: Zack Pizano MD STUDY: ULTRASOUND BREAST - RIGHT REASON FOR EXAM: Female, 61 years old. Abnormal screening mammogram. TECHNIQUE: Axial and longitudinal images of the RIGHT breast were performed with a high r esolution ultrasound transducer. COMPARISON: Comparison is made with prior mammogram dated March 16, 2016. FINDINGS: RIGHT Breast: 3 sub-centimeters cysts are seen at the 9:00 position the breast. The largest measures 5 mm x 7 mm x 4 mm. There is evidence of a 1.5 cm x 1.3 cm x 0.6 cm well-defined nodule in the retroareolar region of the breast. This most lik tommie represents a small lymph node. US/Breast Limited Unilateral IMPRESSION: 3 small cysts as well as a lymph node I seen. Routine mammographic f ollowup is recommended. ASSESSMENT CATEGORY: BIRADS Category 2: Benign. A letter regarding these results will be sent to the patient by the facility within 30 days. Electronically Signed: Bartolome Patel MD at 12:35 EDT Tel [phone], Service support [phone], CC: Sarah Pizano MD Clinical Laboratory Science Professor: Signed 19-Mar-2016 Thoracic Spine 3 Views Result: Comments: See Note; NOTES: [facility] Imaging Services [address] [place] [address] Verdana 4d Thoracic Spine 3 Views MR#: [id number] Acct: [id number] Name: JOSE J COBIAN ep #: [id number] : 1955 F 61 From: Bartolome Patel MD PCP: Sarah Pizano MD Status: [facility] Study: Thoracic Spine 3 Views Date of Exam: 03/22/16 Exam# [id number] Ordering Dr: Bubba Romero MD STUDY: X-RAY - THORACIC SPINE REASON FOR EXAM: Female, 61 years old. Facet joint block. TECHNIQUE: 4 cone-down view(s) of the thoracic spine were obtained intraoperatively.. COMPARISON: None. _ FINDINGS: The patient is status post left T4-2-3 7 facet injection. 0031 RAD/Thoracic Spine 3 Views IMPRESSION: F luoroscopic imaging provided for facet injection. Electronically Signed: Bartolome Patel MD at 14:10 EDT Tel [phone], Service support [phone], CC: Sarah vasquez MD; Bubba Romero Clinical Laboratory Science Professor: Signed 19-Mar-2016 Inital Evaluation (1) - PT Result: Comments: See Note; NOTES: [facility] Physical Therapy [facility] [address] [place] [address]. 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 Date of Evaluation: 03/19/16 Physical Therapist: Mac Smith - Visit Plan Frequency: 2x /Week Duration: 6 Weeks Plan: Patient to receive skilled PT services inclusive of therapuetic exerc ises, NMR, manual therapy, and modalities to improve thoracic mobility, core stability, and cervical ROM. - Subjective Subjective: Patient reports that she has been dealing with upper back and neck beau n for the past 8-9 years. Patient states that she has treated her pain with epidurals, cortisone injections, and physical therapy in the past. The patient reports that pain has increased and progressed down the center of her back between the shoulder blades over the past month. Patient highlights prolonged sitting and sleeping as times when she notices the most back and neck pain. - Pain Back Pain Intensity (Out of 10): 5 Pain Intensity Range: 3, 7 Comment: Occasional sharp pains and throbbing in the neck/upper back - Objective Observation: flattened thoracic spine w/moderate forward head and r ounded shoulders; moderately anteriorly tilted pelvis. Right scapula rests mildly elevated and protracted. Palpation: patient is tender to palpation along the spinous process and immediately laterally f rom C5 - T8. Cervical AROM: Flexion: 25 % limited. Extension: 25 % limited. Rotation: left: 25% limited Right: 50% limited. Shoulder AROM is WNL in all planes of motion. Moderate joint hypomobiltiy in t he thoracic spine w/PA mobilizations. Shoulder strength on MMT: Right: 4/5. Left: 4-/5 - Goals Goal 1:: Patient will demonstrate cervical AROM WNL in all planes of motion w/no more than 1/10 pain. Goal Time Frame: 2-4 Weeks Goal 2:: Patient will demonstrate improved sitting and standing posture w/minimal cueing. Goal Time Frame: 2-4 Weeks Goal 3:: Patient will tolerate prolonged sitting and other moshe ly activities w/no greater than 1 /10 upper back or neck discomfort. Goal Time Frame: 4-6 Weeks - Rehabilitation Potential Physical Therapy Diagnosis: Thoracic hypomobility w/postural abnormalities Johnson abilitation Potential: Good - Anticipated Interventions Patient/Client Instruction: Educate patient on: Plan of Care For the Purpose of:: To improve health and function, To improve decision making Ther apeutic Exercise to Include: Strength training, Balance training, Body mechanics For the Purpose of:: To improve muscle performance and motor function Manual Therapy Techniques to Include: Massage, Mobi lization, Passive ROM For the Purpose of:: To decrease pain, To increase ROM Thank you for the opportunity to evaluate your patient. For Medicare and Medicare HMO plans, please review the plan of c are and approve it. It will need to be FAXED BACK to us at [phone] for Medicare purposes. Please let me know if there are questions or concerns regarding this plan of care. Physician Signature: Date: <Electronically signed by Mac Smith > 03/19/16 1624 CC: Sarah Pizano MD; Bubba Nick DT: CATIA Signed For Medicare only, by signing this I certify the plan of care. Physicians Signature Date 16-Mar-2016 Bilat Scrn Digital AND CAD Result: Comments: See Note; NOTES: [facility] Imaging Services [address] [place] [address] Verdana 4d Bilat Scrn Digital AND CAD MR#: [id number] Acct: [id number] Name: JSOE J COBIAN Rep #: [id number] : 1955 F 61 From: Bartolome Patel MD PCP: Sarah Pizano MD Status: REG CLI Study: Bilat Scrn Digital AND CAD Date of Exam: 03/16/16 Exam# [id number] Ordering Dr: Sarah Pizano MD MAMMOGRAPHY - BILATERAL SCREENING REASON FOR EXAM: Female, 61 years old. Routine annual screening examination. PERTINENT HISTORY: Non- contributory. TECHNIQUE: Digital bilateral breast bret (3D mammographic acquisition) in the CC and MLO projections. 2-D mediolateral oblique (MLO) and craniocaudad (CC) views of both breasts were obtained. CAD: Full Field Digital Mammography with Computer Added Detection was performed. COMPARISON: Comparison is made with prior study dated February 05, 2014 and November 19, 2010. FINDINGS: Breast Composition: The breasts are heterogeneously dense, which may obscure small masses. A port is seen in the right axillary region. I suspect a 2.7 cm x 2.5 cm hypodense nodule with a well- defined capsule in the lateral retroareolar region of the right breast. Correlation with ultrasound is recommended. No other significant abnormalities are identified. HPBI/Bilat Scrn Digi edvin AND CAD IMPRESSION: Questionable hypodensity in the right breast as described. Correlation with ultrasound is recommended. ASSESSMENT CATEGORY: BIRADS Category 0: Incomplete. Need additional imaging evaluation. A letter regarding these results will be sent to the patient by the facility within 30 days. Approximately 10% of breast cancers are not detected by m ammography. A normal mammogram should not delay biopsy of a clinically suspicious abnormality. [id number] Electronically Signed: Bartolome Patel MD at 15:06 EDT Tel [phone], Service supp ort [phone], CC: Sarah Pizano MD Clinical Laboratory Science Professor: Signed 16-Mar-2016 Dexa Bone Density Study (HP) Result: Comments: See Note; NOTES: [facility] Imaging Services [address] [place] [address] Verdana 4d Dexa Bone Density Study (HP) MR#: [id number] Acct: [id number] Name: MAURI COBIAN ZACK Walker Rep #: [id number] : 1955 F 61 From: Bartolome Patel MD PCP: Sarah Pizano MD Status: REG CLI Study: Dexa Bone Density Study (HP) Date of Exam: 03/16/16 Exam# [id number] Ordering Dr: Sarah Deng MD STUDY: DUAL ENERGY X-RAY ABSORPTIOMETRY / DXA REASON FOR EXAM: Female, 61 years old. Early menopause. Loss of height. TECHNIQUE: Bone Mineral Density (BMD) measurements of lumbar spine and bilateral hips were obtained. COMPARISON: Comparison is made with prior study dated November 19, 2010. FINDINGS: Lumbar Spine (L1-L4): g/cm2 (1.177) / T-score (0.1) / Z-score (1.3) Findings are suggestive of normal bone density with a low fracture risk. Left Femur Total: g/cm2 (1.045) / T-score (0.3) / Z-score (1.2) Left Femoral Neck: g/cm2 (0.968) / T-score (-0. 5) / Z-score (0.7) Right Femur Total: g/cm2 (1.040) / T-score (0.3) / Z-score (1.2) Right Femoral Neck: g/cm2 (0.972) / T-score (-0.5) / Z-score (0.8) The T- Scores on the most recent prior examination were: Lumbar Spine (L1-L4): There has been worsening of bone density since the previous examination. Left Femur Total: which represents a worsening of 0.1%. Right Femur Total: which represents an impr ovement of 1.0%. HPBD/Dexa Bone Density Study (HP) IMPRESSION: The patient is considered normal as outlined below according to World [employer] ization (WHO) criteria with a low fracture risk. There has been worsening of bone density since the previous examination. Reference Information: The T-score is the number of standard deviations above or below the standard which is normal for young adults at their peak bone mineral density. The World Health Organization (WHO) interprets the T-scores as follows: Ab ove -1 Normal bone density Between -1 and -2.5 Osteopenia Equal to / or below -2.5 Osteoporosis As a practical clinical guideline, osteopenia may be graded as follows: Mild -1 through -1.5 Moderate -1. 6 through -2.0 Severe -2.1 through -2.4 The Z-score is the number of standard deviations above or below age-matched controls. A Z-score of less than -1.5 would be considered abnormal. References: 1. N IH Osteoporosis and Related Bone Diseases http://www.osteo.org 2. International Society for Clinical Densitometry http://www.iscd.org 3. National Osteoporosis Foundation http://www.nof.org Electronical ly Signed: Bartolome Patel MD at 14:15 EDT Tel [phone], Service support [phone], CC: Sarah Pizano MD Clinical Laboratory Science Professor: Signed 22-Feb-2016 History and Physical Exam Result: Comments: See Note; NOTES: [facility] Medical Records Department [address] [place] [address] History and Physical 02/22/162054 MR#: [id number] Acct: [id number] Name: JOSE J COBIAN Rep #: [id number] : 1955 60 From: An Dent DO PCP: Sarah Pizano MD Status: REG ER Y Location: ED Problem List (1) Chest pain Status: Acute Qualifiers: Chest pain type: precor dial chest pain Qualifier Code: (R07.2) Precordial pain History of Present Illness Date of Admission: 02/22/16 Chief Complaint: Chest pain The patient is a 60 year old F who was seen in the emergency room at [facility] with a chief complaint of precordial chest pain which she describes as dull and sometimes a heaviness. Patient states she's had the chest pain off and on for approxima tely 2 years, she states that his been worse today, she states she has the pain 24 hours a day at times. Patient denies any thing that brings on the chest pain or makes it go away, Patient denies any di aphoresis, nausea, or vomiting. Patient denies any radiation of the pain into her neck or down her arm. Past medical history includes past history of a PE, degenerative joint disease of the lumbar spine on chronic pain meds, interstitial lung disease, chronic pancreatitis, and a hiatal hernia. Workup in the emergency room included a chest x-ray which shows no acute process, EKG showed normal sinus rh ythm without evidence of ischemic changes, troponin was unremarkable, and patient's labs were unremarkable. Patient was placed in observation status on PCU for chest pain-this chest pain seems atypical to me and she may require a workup including an EGD because the chest pain may be actually esophageal in nature. Echocardiogram will be obtained, I will do a CTA of her chest tonight to rule out PE. Shamika farley was on Coumadin for a long period of time and this was stopped approximately 2 years ago. Past Medical History Allergies hydroxychloroquine sulfate [From Plaquenil] Allergy (Intermediate, Verifi ed 02/22/16 19:10) Rash Penicillins Allergy (Intermediate, Verified 02/22/16 19:10) Rash erythromycin base [Erythromycin Base] Allergy (Verified 02/22/16 19:10) Unknown levofloxacin [From Levaquin] [place] r[place] (Verified 02/22/16 19:10) Unknown azithromycin Adverse Reaction (Intermediate, Verified 02/22/16 19:10) Diarrhea furosemide [From Lasix] Adverse Reaction (Verified 02/22/16 19:10) pancretitis Home Medications: Ambulatory Orders Medication Instructions Recorded Amitriptyline HCl [Elavil] 100 mg PO QHS 07/30/13 Duloxetine Hcl [Cymbalta] 60 mg PO DAILY 07/30/13 Estrogens, Conjugated [Premarin] 0.6 25 mg PO DAILY 07/30/13 Fentanyl [Duragesic] 50 mcg TRANSDERM. Q72H 07/30/13 Hydrocodone/Acetaminophen [Vicodin 1 tablet PO Q4H PRN PRN 07/30/13 5-300 mg Tablet] Lipase/Protease/Amylase [Creon Dr 2 cap PO TIDCM 07/30/13 24,000 Units Capsule] Montelukast [Singulair] 10 mg PO QHS 07/30/13 Spironolactone [Aldactone] 100 mg PO QHS 07/30/13 Albuterol Sulfate [Proventil Hfa] 6.7 gm IH PRN PRN 08/29/13 Flu ticasone/Salmeterol [Advair 1 puff INHALATION BID 08/29/13 100/50 Diskus] Multivitamins,Therapeutic 1 tablet PO DAILY 08/29/13 [Multivitamin] Zolpidem Tartrate [Ambien] 10 mg PO QHS PRN PRN 08/29/13 José Miguel taminophen [Tylenol] 650 mg PO Q4H PRN PRN 07/31/15 Tizanidine HCl 4 mg PO TID 07/31/15 Ascorbic Acid [Vitamin C] 1,000 mg PO DAILY@0800 09/08/15 Ergocalciferol [Vitamin D] 50,000 unit PO TUTH 09/08/15 Ibuprofen [Advil] 400 mg PO BID PRN PRN 09/08/15 Calcium (Elemental) [Os-Wandy 500] 500 mg PO DAILY@0800 10/20/15 Surgical History: cholecystectomy, hysterectomy, - - Mediport placement Psychiatric Hist ory: Anxiety 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: No pertinent ACLS SPECIALIST history Lives: Spouse/ Significant Other Smoking Status: Never smoker Tobacco Use: Non-smoker Alcohol: None Drugs: None - *Family History Maternal History Items: Heart Disease Paternal History Items: Cancer Review of Systems Constitutional: Denies: Anorexia, Chills, Fever, Night Sweats, Malaise, Weakness, Weight Change , Fatigue Eyes: Denies: Blurred vision, Cataracts, Conjunctivae Inflammation, Double vision, Drainage, Eyelid Inflammation HEENT: Denies: Difficulty Hearing, Difficulty Swallowing, Dysphasia, Ear Pain, Head Aches, Hearing Changes, Na ruth bleeding, Nasal Congestion Cardiovascular: Reports: Heaviness. Denies: Chest Pain, Claudication, Chest Tightness, Edema, Light Headedness, Orthopnea, Palpitations, Paroxysmal Noc. Dyspnea, Syncope R espiratory: Denies: Cough, Hemoptysis, Pleuritic Pain, Shortness of Breath, Shortness of breath at rest, Shortness of breath upon exertion, Sputum production, Wheezing Gastrointestinal: Denies: Abdomina l Pain, Constipation, Diarrhea, Hematemesis, Hematochezia, Nausea, Melena, Vomiting Genitourinary: Denies: Dysuria, Frequency, Hematuria, Hesitancy, Urgency Gynecological: Denies: Breast symptoms Muscul oskeletal: Reports: Back Pain - has a history of chronic back pain and takes chronic pain medications. Denies: Arm Pain, Foot Pain, Joint Pain, Joint stiffness, Joint swelling, Joint Tenderness, Leg Beau n Skin: Denies: Dryness, Jaundice, Pruritis, Rash, Skin Changes, Wounds Neurological: Denies: Balance problems, Blurred vision, Double vision, Slurred speech, Difficulty swallowing, Focal weakness, Head aches, Incoordination, Numbness, Tingling Psychiatric: Reports: Anxiety. Denies: Depression, Homicidal Ideations, Suicidal Ideations Endocrine: Denies: Change in Body Habitus, Heat/ Cold Intolerance, Po lydipsia, Polyuria Hematologic/ Lymphatic: Reports: Hx of blood clot. Denies: Adenopathy, Anemia, Easy Bruising, Easy Bleeding, Petechiae, Purpura VTE Information - Inpt Only VTE Present on Admission: No VTE Mechan Device Prophylaxis: None VTE Pharm Prophylaxis ordered?: Yes - Physical Exam General: Alert, Oriented x3, Cooperative, No apparent distress, Well developed, Well nourished HEENT: Atraumat ic, PERRLA, EOMI, Normocephalic Oral: Moist Mucosa, No Gingival or Mucosal Lesions/ Ulcerations Neck: Supple, No JVD, Negative Carotid Bruits, Negative Hepatojugular Reflux, No Nuchal Rigidity, Trachea Midline, Thyroid Normal Size and Texture Lungs: Clear to auscultation, Normal air movement, No rhonchi, No wheeze, No rales Cardiovascular: Regular rate, Regular Rhythm, Normal S1, Normal S2, Murmur - 2 /6 systolic murmur is noted at the left sternal border and apex Abdomen: Bowel Sounds Present, Soft, Non Tender, Non-Distended, No Hepato-splenomegaly, No hernias noted Extremities: No clubbing, No cyan osis, No edema, Capillary Refill Less than 3 Seconds Skin: No rashes, No breakdown Musculoskeletal: No Tenderness to Palpation of Joints or Extremities, No Muscle Wasting Neurological: Cranial nerves II -XII grossly intact, Neuro grossly intact, Muscle tone normal, Sensory exam intact to light touch and pain, Coordination normal Psych/Mental Status: Normal Affect, Appropriate, Alert and oriented to radha e, place, person, mood and affect Vital Signs Temp Pulse Resp BP Pulse Ox 98.6 F 72 20 132/85 98 02/22/16 18:47 02/22/16 20:35 02/22/16 20:35 02/22/16 19:49 02/22/16 20:35 Oxygen Delivery Method Umu m Air Weight: 77.111 kg Body Mass Index (BMI) 35.5 Laboratory Tests Past 24 Hrs 02/22/16 19:00 WBC 4.9 RBC 3.74 L Hgb 11.2 L Hct 32.4 L MCV 86.6 MCH 29.9 MCHC 34.6 RDW 13.8 RDW Differential 43.6 Plt C ount 228 MPV 9.2 Immature Gran % (Auto) 0.200 Neut % (Auto) 44.6 L Lymph % (Auto) 46.1 H [place] % (Auto) 6.9 Eos % (Auto) 2.0 Baso % (Auto) 0.2 Absolute Neuts (auto) 2.2 Absolute Lymphs (auto) 2.27 Total Counted Not Reportable Sodium 131 L Potassium 3.9 Chloride 99 Carbon Dioxide 26.0 Anion Gap 6 BUN 10 Creatinine 0.80 Estim Creat Clear Calc 92.17 Est GFR (MDRD) Af Amer 94 Est GFR (MDRD) Non-Af 78 BUN/C reatinine Ratio 12.5 Glucose 101 Calcium 8.4 L Total Bilirubin 0.30 Direct Bilirubin 0.15 AST 24 ALT 23 Alkaline Phosphatase 81 Troponin I < 0.02 Total Protein 6.8 Albumin 4.0 Globulin 2.8 Lipas e 351 Assessment/Plan Active and Suspected Problems Chest pain (Acute) #1 chest pain-again the patient's chest pain appears atypical for angina-the length of time that it persists does not indicat e its cardiac in nature, patient will be placed in observation status on PCU, enzymes will be cycled, echocardiogram will be obtained, she will have a treadmill nuclear stress test tomorrow if her enzym es are negative. I will do a CTA of her chest to rule out pulmonary emboli tonight, again, ultimately she may need an EGD to try to determine what is causing her discomfort. 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 on chronic pain meds-these will be continued, I will keep her off her ibuprofen for now #3 chronic pancreatitis-this does not appear to be an issue at this time #4 interstitial lung di sease-patient uses albuterol inhaler as needed #5 anxiety 02/22/16 6456 <Electronically signed by An Dent DO> Date An schmidt DO Cosigner Signature (if applicable): Date CC: Sarah Pizano MD; An Dent DO Signed 22-Feb-2016 Chest 1 View (Portable) Result: Comments: See Note; NOTES: [facility] Imaging Services [address] [place] [address] Verdana 4d Chest 1 View (Portable) MR#: [id number] Acct: [id number] Name: JOSE J COBIAN Rep #: [id number] : 1955 F 60 From: Kim Dsouza MD PCP: Sarah Pizano MD Status: REG ER Study: Chest 1 View (Portable) Date of Exam: 02/22/16 Exam# [id number] Ordering Dr: Mac Chi MD STUDY: X-RAY CHEST REASON FOR EXAM: Female, 60 years old. Chest pain TECHNIQUE: Single AP portable view of the chest. COMPARISON: February 07, 2015 FINDINGS: There is a st able right central venous line. The lungs are clear and expanded. There is no demonstrated pleural abnormality. Normal size heart. Normal mediastinum and yu. Normal visualized pulmonary arteries. No rmal visualized aortic arch and descending thoracic aorta. Normal visualized thoracic spine. Normal visualized ribs, clavicles, and shoulders. There are stable epigastric surgical clips. RAD/Chest 1 View (Portable) IMPRESSION: No acute disease is demonstrated. Electronically Signed: Kim Dsouza MD at 19:35 EDT , Service support [phone], CC: Sarah Pizano MD; Mac Chi MD Clinical Laboratory Science Professor: Signed 16-Feb-2016 Thoracic Spine 3 Views Result: Comments: See Note; NOTES: [facility] Imaging Services [address] [place] [address] Verdana 4d Thoracic Spine 3 Views MR#: [id number] Acct: [id number] Name: JOSE J COBIAN Yamilka ep #: [id number] : 1955 F 60 From: Kirk Wall MD PCP: Sarah Pizano MD Status: REG CLI Study: Thoracic Spine 3 Views Date of Exam: 02/16/16 Exam# [id number] Ordering Dr: Sarah Pizano MD UDY: X-RAY - THORACIC SPINE REASON FOR EXAM: Female, 60 years old. Pain TECHNIQUE: 3 view(s) of the thoracic spine were obtained. COMPARISON: None. FINDINGS: Norm al kyphosis of the thoracic spine. There is no substantial scoliosis. There is multilevel endplate spondylosis of the thoracic vertebrae. There is multilevel disc space narrowing of the thoracic spine. Partially visualized right vascular line. Multiple metallic clips overlying the epigastric region suggest prior gastric surgery. The soft tissue structures are unremarkable. RAD/Thoracic Spine 3 Views IMPRESSION: There are degenerative changes as noted above. Electronically Signed: Kirk Wall MD at 21:50 EDT , S maurilioe support [phone], CC: Sarah Pizano MD Clinical Laboratory Science Professor: Signed 03-Nov-2015 Operative Report Result: Comments: See Note; NOTES: [facility] Medical Records Department [address] [place] [address] Operative Report MR#: [id number] Acct: [id number] Name: JOSE J COBIAN Rep #: [id number] : 1955 60 From: Bubba Romero MD PCP: Sarah Pizano MD Status: [facility] DATE OF SERVICE: 10/20/2015 DATE OF PROCEDURE: October 20, 2015. ATTENDING PHYSICIAN: Seth Romero M.D. PROCEDURE: Right-sided cervical facet steroid injection, C4, C5, C6 and C7. PREOPERATIVE DIAGNOSES: Cervical spondylosis, cervical degenerative disk disease, cervical facet arth ropathy. POSTOPERATIVE DIAGNOSES: Cervical spondylosis, cervical degenerative disk disease, cervical facet arthropathy. ANESTHESIA: MAC. COMPLICATIONS: None. BLOOD LOSS: Minimal. PROCEDURE IN DETAIL: History and physical today was reviewed. Risks and benefits of procedure explained. The patient understood, agreed to our procedure and informed consent was obtained. IV inserted per rout ine protocol. The patient was taken to the operating room, placed in the prone position with pillow positioned underneath the chest. The neck area was prepped and draped in a sterile fashion using iod ine x3. Under fluoroscopy guidance, on AP view, the C4 through C7 vertebral bodies were visualized at approximately 10-degree angle, starting on the right C4, ending on the right C7 passing through th e C5-C6 using a 25-gauge 3-1/2 inch spinal needle, the needle was advanced via the skin. The tip of the needle was maneuvered and directed towards the apophyseal junction of each corresponding vertebr a. Once the tip of the needle was at the vicinity of the medial branch and in contact with the bone, the needle pulled approximately 2 mm of the bone. After negative aspiration of blood with CSF and confirmation on AP as well as oblique view, a total of 4 mL of preservative-free 0.25% Marcaine with 80 mg of Depo-Medrol was injected in divided doses between those 4 levels. The patient experienced no signs or symptoms of intrathecal, intravascular injection. The patient experienced no paraesthesia. The procedure was completed without any apparent difficulty, any complication. The patient appear ed to tolerate well. ASSESSMENT AND PLAN: This is a 60-year-old female with cervical spondylosis, cervical degenerative disk disease, cervical facet arthropathy, status post right-sided cervical fa cet steroid injection C4 through C7. The patient will continue her current medications. The patient will follow up in approximately 2 weeks for possible repeat of the procedure if indicated. Lidia Romero MD T: NTS JOB: [id number] 11/03/15 2317 <Electronically signed by Bubba Romero MD> Date Bubba Romero MD Co signer Signature (If Indicated): Date CC: Sarah Pizano MD; Bubba Romero Date Dictated: 10/20/15 1351 Date Transcribed: 10/20/15 135 Clinical Laboratory Science Professor: Signed 20-Oct-2015 Cerv Spine 2 or 3 Views Result: Comments: See Note; NOTES: [facility] Imaging Services [address] [place] [address] Verdana 4d Cerv Spine 2 or 3 Views MR#: [id number] Acct: [id number] Name: JOSE J NOWAK Rep #: [id number] : 1955 F 60 From: Bartolome Patel MD PCP: Sarah Pizano MD Status: [facility] Study: Cerv Spine 2 or 3 Views Date of Exam: 10/20/15 Exam# [id number] Ordering Dr: Bubba Romero MD STUDY: X-RAY - CERVICAL SPINE REASON FOR EXAM: Female, 60 years old. Fluoroscopic services provided for right-sided facet block. TECHNIQUE: 4 cone-down view(s) of the cervi wandy spine were obtained intraoperatively. COMPARISON: None FINDINGS: Fluoroscopic service was provided for right 4 through C7 facet joint block. Fluoroscopic time of 12.7 seconds. IMPRESSION: Fluoroscopic services provided for right 4 through C7 facet block. Electronically Signed: Bartolome Patel MD at 13:45 EDT Tel [phone], Service support [phone], RAD/Cerv Spine 2 or 3 Views IMPRESSION: Fluoroscopic services provided for right 4 through C7 facet block. Electronically Signed: Bartolome Patel MD at 13:45 EDT Tel [phone], Service support [phone], CC: Sarah Pizano MD; Bubba Romero Clinical Laboratory Science Professor: Signed 18-Aug-2015 Operative Report Result: Comments: See Note; NOTES: [facility] Medical Records Department [address] [place] [address] Operative Report MR#: [id number] Acct: [id number] Name: JOSE J COBIAN Rep #: [id number] : 1955 60 From: Bubba Romero MD PCP: Sarah Pizano MD Status: [facility] DATE OF SERVICE: 08/04/2015 DATE OF SERVICE: August 04, 2015 ATTENDING PHYSICIAN: Osiel Romero M.D. PROCEDURE: Left-sided cervical facet steroid injections at C4, C5, C6, C7. PREOPERATIVE DIAGNOSES: Cervical spondylosis, cervical degenerative disk disease, cervical facet arthro lc. POSTOPERATIVE DIAGNOSES: Cervical spondylosis, cervical degenerative disc disease, cervical facet arthropathy. ANESTHESIA: MAC. COMPLICATIONS: None. ESTIMATED BLOOD LOSS: Minimal. D ESCRIPTION OF PROCEDURE: History and physical today was reviewed. Risks and benefits of procedure explained. The patient understood and agreed to the procedure and informed consent was obtained. IV i nserted per routine protocol. The patient was taken to the operating room, placed in the prone position with pillow positioned underneath the chest. The neck area was prepped and draped in a sterile f ashion using iodine x3. Under fluoroscopy guidance, on an AP view, the C4 through C7 vertebral bodies were visualized, at approximately 10-degree angle, starting on the left C4, ending on the left C7, passing through the C5-C6 using a 25-gauge 3-1/2-inch spinal needle, the needle was advanced via the skin. The tip of the needle was maneuvered and directed towards the apophyseal junction of each co rresponding vertebral. Once the tip of the needle was at the vicinity of the medial branch and in contact with the bone, the needle pulled approximately 2 mm up the bone. After negative aspiration of blood with CSF and confirmation on AP as well as oblique view, a total of 4 mL of preservative-free 0.25% Marcaine with 80 mg of Depo-Medrol was injected in divided doses between those 4 levels. The patient experienced no signs or symptoms of intrathecal, intravascular injection. The patient experienced no paresthesia. Procedure was completed without any apparent difficulty, any complication. The patient appeared to tolerate well. ASSESSMENT AND PLAN: This is a 60-year-old female with cervical spondylosis, cervical degenerative disk disease, cervical facet arthropathy status post left sided cervical facet steroid injection at C4 through C7. The patient will continue her current medication. The patient will follow in approximately 2 weeks for possible repeat of the procedure if indicate d. Bubba Romero MD T: NTS JOB: [id number] 08/18/15 0927 <Electronically signed by Bubba Romero MD> Date Bubba copeland MD Cosigner Signature (If Indicated): Date CC: Sarah Pizano MD; Bubba Romero Date Dictated: 08/04/151432 Date Transcribed: 08/04/151432 Clinical Laboratory Science Professor: Signed 04-Aug-2015 Cerv Spine 2 or 3 Views Result: Comments: See Note; NOTES: [facility] Imaging Services [address] [place] [address] Verdana 4d Cerv Spine 2 or 3 Views MR#: [id number] Acct: [id number] Name: JOSE J NOWAK Rep #: [id number] : 1955 F 60 From: Kirk Wall MD PCP: Sarah Pizano MD Status: [facility] Study: Cerv Spine 2 or 3 Views Date of Exam: 08/04/15 Exam# [id number] Ordering Dr: Osiel Romero MD STUDY: X-RAY - CERVICAL SPINE REASON FOR EXAM: Female, 60 years old. cervical facet block at left C4-7 TECHNIQUE: 4 view(s) of the cervical spine were obtained. COMPARISON: Non e FINDINGS: Normal anterior atlantoaxial articulation. Normal odontoid process. First image demonstrates a needle at the level of C3-4. Second image demonstrat es a needle at the level of C4-5. 3rd image demonstrates a needle at the level of C5-6. Final image demonstrates a needle at the level of C6. Normal vertebral bodies and endplates. The soft tissue s tructures are unremarkable. IMPRESSION: Needle positions as above. Electronically Signed: Kirk Wall MD at 16:28 EST , Service support [phone], RAD/Cerv Spine 2 or 3 Views IMPRESSION: Needle positions as above. Electronically Signed: Kirk Wall MD at 16:28 EST , Service support [phone], CC: Sarah Pizano MD; Bubba Romero Clinical Laboratory Science Professor: Signed 02-Jul-2015 Hip min 2 Views Result: Comments: See Note; NOTES: [facility] Imaging Services [address] [place] [address] Verdana 4d Hip min 2 Views MR#: [id number] Acct: [id number] Name: VIRAJ COBIAN Rep #: [id number] : 1955 F 60 From: Tuan Boyd MD PCP: Sarah Pizano MD Status: REG CLI Study: Hip min 2 Views Date of Exam: 07/02/15 Exam# [id number] Ordering Dr: Sarah Pizano MD S TUDY: X-RAY - RIGHT HIP REASON FOR EXAM: Female, 60 years old. Hip pain x1 year TECHNIQUE: 2 views of the hip. COMPARISON: None. FINDINGS: Normal femoral h ead, neck, intertrochanteric region and visualized proximal femur. Normal acetabulum. Normal hip joint. Normal visualized superior and inferior pubic rami and ischial tuberosities. IMPRESSION: Normal x-ray examination of the hip. Electronically Signed: Lucius Boyd MD at 12:42 EST Tel , Service support [phone], Fax RAD/Hip min 2 Views IMPRESSION: Normal x-ray examination of the hip. Electronically Signed: Lucius Boyd MD at 12:42 EST Tel , Servic e support [phone], CC: Sarah Pizano MD Clinical Laboratory Science Professor: Signed 24-Jun-2015 Pelvis 1 or 2 Views Result: Comments: See Note; NOTES: [facility] Imaging Services [address] [place] [address] Verdana 4d Pelvis 1 or 2 Views MR#: [id number] Acct: [id number] Name: JOSE J COBIAN Rep #: [id number] : 1955 F 60 From: Prosper Dumont MD PCP: Sarah Pizano MD Status: REG CLI Study: Pelvis 1 or 2 Views Date of Exam: 06/24/15 Exam# [id number] Ordering Dr: Tuan Pizano MD STUDY: X-RAY - PELVIS REASON FOR EXAM: Female, 60 years old. rt hip pain/lower back x 4 days TECHNIQUE: One view of the pelvis was obtained. COMPARISON: None. FINDINGS: There is a non-specific bowel gas pattern. Normal visualized soft tissue structures. There is narrowing with cortical sclerosis and osteophyte formation of the sacroiliac joint consistent with degenerative osteoarthritic changes. Normal visualized bilateral superior and inferior pubic rami. There are degenerative changes of the pubic symphysis with articular narrowing and sclerosis. Normal ischial tuberosities. Normal visualized right femoral head. Normal right acetabulum. Normal right hip joint. Normal visualized left femoral head. Normal left acetabulum. Normal le ft hip joint. IMPRESSION: There is narrowing with cortical sclerosis and osteophyte formation of the sacroiliac joint consistent with degenerative osteoarthriti c changes. Electronically Signed: Lavell Dumont MD at 11:20 EST Tel , Service support [phone], RAD/Pelvis 1 or 2 Views IMPRESS ION: There is narrowing with cortical sclerosis and osteophyte formation of the sacroiliac joint consistent with degenerative osteoarthritic changes. Electronically Signed: Lavell Dumont MD 08/26 at 11:20 EST Tel , Service support [phone], CC: Sarah Pizano MD Clinical Laboratory Science Professor: Signed 07-Feb-2015 Chest PA and Lateral Result: Comments: See Note; NOTES: [facility] Imaging Services [address] [place] [address] Radiology Report MR#: [id number] Acct: [id number] Name: JOSE J COBIAN Rep #: [id number] : 1955 F 59 From: Baldemar Torres DO PCP: Sarah Pizano MD Status: REG CLI Study: Chest PA and Lateral Date of Exam: 02/07/15 Exam# [id number] Ordering Dr: Pamella Saavedra STUDY: X-RAY CHES T REASON FOR EXAM: Female, 59 years old. Bronchitis. TECHNIQUE: PA and lateral views of the chest. COMPARISON: January 19, 2013 FINDINGS: Stable right jugular Port-A-Cath. The lungs are clear and expanded. There is no demonstrated pleural abnormality. Normal size heart. Normal mediastinum and yu. Normal visualized pulmonary arteries. Normal visualized aortic arch and descending thoracic aorta. Normal visualized thoracic spine. Normal visualized ribs, clavicles, and shoulders. There are surgical changes in the region of the GE junction. IMPRESSION: No acute cardiopulmonary disease or interval change. Electronically Signed: Baldemar Torres DO at 19:14 EDT Tel [phone], Service support , RAD/Chest PA and Lateral IMPRESSION: No acute cardiopulmonary disease or interval change. Electronically Signed: Baldemar Torres DO at 19: 14 EDT Tel [phone], Service support [phone], CC: Pamella Saavedra; Sarah Pizano MD Clinical Laboratory Science Professor: Signed 05-Feb-2014 [facility] [employer] Result: Comments: See Note; NOTES: [facility] Imaging Services [address] [place] [address] Breast Imaging Report MR#: [id number] Acct: [id number] Name: JOSE J COBIAN Rep #: [id number] : 1955 F 58 From: Bartolome Patel MD PCP: Sarah Pizano MD Status: REG CLI Exam# [id number] Ordering Dr: Sarah Pizano MD MAMMOGRAPHY - BILATERAL SCREENING REASON FOR EXAM: Female, 58 years old. Routine annual screening examination. PERTINENT HISTORY: Non-contributory. TECHNIQUE: Digital examination. Mediolateral oblique (MLO) and craniocaudad (CC) views of both antoni asts were obtained. CAD: CAD was performed on this study. COMPARISON: Comparison is made with prior study dated November 19, 2010. FINDINGS: The breast composition is heterogeneously dense, ranging from 51% to 75% of the total breast volume, which may obscure small masses. There are no dominant masses or suspicious calcifications. No other significant abnorma lities are identified. There has been no significant change since the prior study. IMPRESSION: Stable bilateral screening mammogram. Yearly follow-up recommended . (A) ASSESSMENT CATEGORY: BIRADS Category 2: Benign finding(s). A letter regarding these results will be sent to the patient by the facility within 30 days. A pproximately 10% of breast cancers are not detected by mammography. A normal mammogram should not delay biopsy of a clinically suspicious abnormality. Electronically Signed: Bartolome Patel MD at 13:16 EDT Tel [phone], Service support [phone], CC: Sarah Pizano MD Clinical Laboratory Science Professor: Signed 06-Jun-2013 Abdomen/Pelvis with Contrast Result: Comments: See Note; NOTES: [facility] Imaging Services [address] [place] [address] CAT Scan Report MR#: [id number] Acct: [id number] Name: JOSE J COBIAN Rep #: [id number] : [id number] F 58 From: Tuan Atkins MD PCP: Sarah Pizano MD Status: REG CLI Study: Abdomen/Pelvis with Contrast Date of Exam: 06/06/13 Exam# [id number] Ordering Dr: Sarah Pizano MD STUD Y: CT ABDOMEN AND PELVIS WITH CONTRAST REASON FOR EXAM: Female, 58 years old. Epigastric pain for 6 months. RADIATION DOSAGE (If Supplied By Facility): CTDIvol = ( 18 ) mGy, DLP = ( 1812 ) mGycm TECHNIQUE: Transaxial images were obtained from the dome of the diaphragm to the symphysis pubis with oral contrast. 100 ml of Isovue 300 contrast was administered. Bowel opacification is limited to t he stomach and small bowel. Multiplanar coronal and sagittal images were reformatted. COMPARISON: CT abdomen pelvis without IV contrast February 11, 2009. FINDING S: The visualized lung bases are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 Pattern: Unlabored BP Systolic 118 mm[Hg] Comments: Patient Position: Sitting; Cuff Location: Left Arm; Cuff Size: Standard BP Diastolic 76 mm[Hg] Comments: Patient Position: Sitting; Cuff Location: Left Arm; Cuff Size: Standard Weight 170 lb Height 60 in Body Mass Index Calculated 33.2 kg/m2 Body Surface Area Calculated 1.74 m2 :16 Temperature 98.9 f Comments: Method: Oral Pulse 70 /min Comments: Pattern: Regular Respiration Rate 20 /min Comments: Pattern: Unlabored BP Systolic 120 mm[Hg] Comments: Patient Position: Sitting; Cuff Location: Left Arm; Cuff Size: Standard BP Diastolic 76 mm[Hg] Comments: Patient Position: Sitting; Cuff Location: Left Arm; Cuff Size: Standard Weight 165 lb Height 60 in Body Mass Index Calculated 32.22 kg/m2 Body Surface Area Calculated 1.72 m2 :36 Temperature 98.9 f Comments: Method: Temporal Pulse 72 /min Comments: Pattern: Regular Respiration Rate 16 /min Comments: Pattern: Unlabored BP Systolic 124 mm[Hg] Comments: Patient Position: Sitting; Cuff Location: Left Arm; Cuff Size: Standard BP Diastolic 78 mm[Hg] Comments: Patient Position: Sitting; Cuff Location: Left Arm; Cuff Size: Standard Weight 166.5 lb Height 60 in Body Mass Index Calculated 32.52 kg/m2 Body Surface Area Calculated 1.73 m2 :55 Temperature 98 f Comments: Method: Oral Pulse 88 /min Comments: Pattern: Regular Respiration Rate 20 /min Comments: Pattern: Unlabored BP Systolic 120 mm[Hg] Comments: Patient Position: Sitting; Cuff Location: Left Arm; Cuff Size: Large BP Diastolic 78 mm[Hg] Comments: Patient Position: Sitting; Cuff Location: Left Arm; Cuff Size: Large Weight 166.5 lb Height 60 in Body Mass Index Calculated 32.52 kg/m2 Body Surface Area Calculated 1.73 m2 :07 Temperature 98.1 f Comments: Method: Oral Pulse 62 /min Comments: Pattern: Regular Respiration Rate 16 /min Comments: Pattern: Unlabored BP Systolic 130 mm[Hg] Comments: Patient Position: Sitting; Cuff Location: Left Arm; Cuff Size: Standard BP Diastolic 78 mm[Hg] Comments: Patient Position: Sitting; Cuff Location: Left Arm; Cuff Size: Standard Weight 173 lb Height 60 in Body Mass Index Calculated 33.79 kg/m2 Body Surface Area Calculated 1.76 m2 :50 Temperature 97.8 f Comments: Method: Oral Pulse 96 /min Comments: Pattern: Regular Respiration Rate 16 /min Comments: Pattern: Unlabored BP Systolic 142 mm[Hg] Comments: Patient Position: Sitting; Cuff Location: Left Arm; Cuff Size: Large BP Diastolic 70 mm[Hg] Comments: Patient Position: Sitting; Cuff Location: Left Arm; Cuff Size: Large Weight 175 lb Height 60 in Body Mass Index Calculated 34.18 kg/m2 Body Surface Area Calculated 1.76 m2 :25 Temperature 98 f Comments: Method: Oral Pulse 80 /min Comments: Pattern: Regular Respiration Rate 16 /min Comments: Pattern: Unlabored O2 SAT 94 % Comments: Room air BP Systolic 126 mm[Hg] Comments: Patient Position: Sitting; Cuff Location: Left Arm; Cuff Size: Standard BP Diastolic 72 mm[Hg] Comments: Patient Position: Sitting; Cuff Location: Left Arm; Cuff Size: Standard Weight 176 lb Height 60 in Body Mass Index Calculated 34.37 kg/m2 Body Surface Area Calculated 1.77 m2 :52 Pulse 72 /min Comments: Pattern: Regular Respiration Rate 16 /min Comments: Pattern: Unlabored Weight 176 lb Height 60 in Body Mass Index Calculated 34.37 kg/m2 Body Surface Area Calculated 1.77 m2 :15 Temperature 97.6 f Comments: Method: Oral Pulse 74 /min Comments: Pattern: Regular Respiration Rate 18 /min Comments: Pattern: Unlabored BP Systolic 120 mm[Hg] Comments: Patient Position: Sitting; Cuff Location: Left Arm; Cuff Size: Standard BP Diastolic 78 mm[Hg] Comments: Patient Position: Sitting; Cuff Location: Left Arm; Cuff Size: Standard Weight 176 lb Height 60 in Body Mass Index Calculated 34.37 kg/m2 Body Surface Area Calculated 1.77 m2 :21 Temperature 98.9 f Comments: Method: Oral Pulse 86 /min Comments: Pattern: Regular Respiration Rate 18 /min O2 SAT 95 % Comments: Room air BP Systolic 136 mm[Hg] Comments: Patient Position: Sitting; Cuff Location: Left Arm; Cuff Size: Standard BP Diastolic 82 mm[Hg] Comments: Patient Position: Sitting; Cuff Location: Left Arm; Cuff Size: Standard Weight 176 lb Height 60 in Body Mass Index Calculated 34.37 kg/m2 Body Surface Area Calculated 1.77 m2 :39 Temperature 98.1 f Comments: Method: Oral Pulse 68 /min Comments: Pattern: Regular Respiration Rate 18 /min Comments: Pattern: Unlabored BP Systolic 124 mm[Hg] Comments: Patient Position: Sitting; Cuff Location: Left Arm; Cuff Size: Standard BP Diastolic 78 mm[Hg] Comments: Patient Position: Sitting; Cuff Location: Left Arm; Cuff Size: Standard Weight 176 lb Height 60 in Body Mass Index Calculated 34.37 kg/m2 Body Surface Area Calculated 1.77 m2 :20 Temperature 97.9 f Comments: Method: Oral Pulse 84 /min Comments: Pattern: Regular Respiration Rate 20 /min Comments: Pattern: Unlabored BP Systolic 134 mm[Hg] Comments: Patient Position: Sitting; Cuff Location: Left Arm; Cuff Size: Standard BP Diastolic 84 mm[Hg] Comments: Patient Position: Sitting; Cuff Location: Left Arm; Cuff Size: Standard Weight 176 lb Height 60 in Body Mass Index Calculated 34.37 kg/m2 Body Surface Area Calculated 1.77 m2 :06 Temperature 98.1 f Comments: Method: Oral Pulse 70 /min Comments: Pattern: Regular Respiration Rate 18 /min Comments: Pattern: Unlabored BP Systolic 126 mm[Hg] Comments: Patient Position: Sitting; Cuff Location: Left Arm; Cuff Size: Standard BP Diastolic 78 mm[Hg] Comments: Patient Position: Sitting; Cuff Location: Left Arm; Cuff Size: Standard Weight 176 lb Height 60 in Body Mass Index Calculated 34.37 kg/m2 Body Surface Area Calculated 1.77 m2 :58 Temperature 97.6 f Comments: Method: Oral Pulse 72 /min Comments: Pattern: Regular Respiration Rate 16 /min Comments: Pattern: Unlabored BP Systolic 132 mm[Hg] Comments: Patient Position: Sitting; Cuff Location: Left Arm; Cuff Size: Standard BP Diastolic 78 mm[Hg] Comments: Patient Position: Sitting; Cuff Location: Left Arm; Cuff Size: Standard Weight 176.375 lb Height 60 in Body Mass Index Calculated 34.45 kg/m2 Body Surface Area Calculated 1.77 m2 :25 Temperature 97.4 f Comments: Method: Oral Pulse 92 /min Comments: Pattern: Regular Respiration Rate 20 /min Comments: Pattern: Unlabored O2 SAT 98 % Comments: Room air BP Systolic 134 mm[Hg] Comments: Patient Position: Sitting; Cuff Location: Left Arm; Cuff Size: Standard BP Diastolic 82 mm[Hg] Comments: Patient Position: Sitting; Cuff Location: Left Arm; Cuff Size: Standard Weight 175 lb Height 59 in Body Mass Index Calculated 35.35 kg/m2 Body Surface Area Calculated 1.74 m2 :15 Temperature 97 f Comments: Method: Oral Pulse 66 /min Comments: Pattern: Regular Respiration Rate 18 /min Comments: Pattern: Unlabored BP Systolic 128 mm[Hg] Comments: Patient Position: Sitting; Cuff Location: Left Arm; Cuff Size: Standard BP Diastolic 74 mm[Hg] Comments: Patient Position: Sitting; Cuff Location: Left Arm; Cuff Size: Standard Weight 182 lb :29 Temperature 98.2 f Comments: Method: Oral Pulse 74 /min Comments: Pattern: Regular Respiration Rate 18 /min Comments: Pattern: Unlabored BP Systolic 124 mm[Hg] Comments: Patient Position: Sitting; Cuff Location: Left Arm; Cuff Size: Standard BP Diastolic 88 mm[Hg] Comments: Patient Position: Sitting; Cuff Location: Left Arm; Cuff Size: Standard Weight 182 lb :17 Temperature 97.2 f Comments: Method: Oral Pulse 80 /min Comments: Pattern: Regular Respiration Rate 20 /min Comments: Pattern: Unlabored BP Systolic 110 mm[Hg] Comments: Patient Position: Sitting; Cuff Location: Left Arm; Cuff Size: Standard BP Diastolic 68 mm[Hg] Comments: Patient Position: Sitting; Cuff Location: Left Arm; Cuff Size: Standard Weight 183.3125 lb :25 Pulse 74 /min Comments: Pattern: Regular Respiration Rate 18 /min Comments: Pattern: Unlabored BP Systolic 126 mm[Hg] Comments: Patient Position: Sitting; Cuff Location: Left Arm; Cuff Size: Large BP Diastolic 84 mm[Hg] Comments: Patient Position: Sitting; Cuff Location: Left Arm; Cuff Size: Large Weight 197 lb :26 Temperature 98 f Comments: Method: Oral Pulse 88 /min Comments: Pattern: Regular Respiration Rate 18 /min Comments: Pattern: Unlabored BP Systolic 126 mm[Hg] Comments: Patient Position: Sitting; Cuff Location: Right Arm; Cuff Size: Large BP Diastolic 68 mm[Hg] Comments: Patient Position: Sitting; Cuff Location: Right Arm; Cuff Size: Large Weight 0 lb Height 0 in Head Circumference 0.00 cm :13 Pulse 74 /min Comments: Pattern: Regular Respiration Rate 18 /min Comments: Pattern: Unlabored BP Systolic 124 mm[Hg] Comments: Patient Position: Sitting; Cuff Location: Left Arm; Cuff Size: Large BP Diastolic 82 mm[Hg] Comments: Patient Position: Sitting; Cuff Location: Left Arm; Cuff Size: Large Weight 200.0375 lb Height 0 in Head Circumference 0.00 cm :53 Pulse 74 /min Comments: Pattern: Regular Respiration Rate 16 /min Comments: Pattern: Unlabored BP Systolic 126 mm[Hg] Comments: Patient Position: Sitting; Cuff Location: Left Arm; Cuff Size: Large BP Diastolic 84 mm[Hg] Comments: Patient Position: Sitting; Cuff Location: Left Arm; Cuff Size: Large Weight 201 lb Height 0 in Head Circumference 0.00 cm :58 Temperature 98.1 f Comments: Method: Oral Pulse 78 /min Comments: Pattern: Regular Respiration Rate 20 /min Comments: Pattern: Unlabored BP Systolic 140 mm[Hg] Comments: Patient Position: Sitting; Cuff Location: Left Arm; Cuff Size: Large BP Diastolic 90 mm[Hg] Comments: Patient Position: Sitting; Cuff Location: Left Arm; Cuff Size: Large Weight 198.0313 lb Height 0 in Head Circumference 0.00 cm :20 O2 SAT 96 % Comments: Room air Weight 0 lb Height 0 in Head Circumference 0.00 cm :41 Temperature 97.7 f Comments: Method: Undefined Pulse 102 /min Comments: Pattern: Regular Respiration Rate 20 /min Comments: Pattern: Undefined O2 SAT 91 % Comments: Room air BP Systolic 128 mm[Hg] Comments: Patient Position: Sitting; Cuff Location: Right Arm; Cuff Size: Standard BP Diastolic 80 mm[Hg] Comments: Patient Position: Sitting; Cuff Location: Right Arm; Cuff Size: Standard Weight 0 lb Height 0 in Head Circumference 0.00 cm :49 Temperature 97.6 f Comments: Method: Oral Pulse 72 /min Comments: Pattern: Regular Respiration Rate 16 /min Comments: Pattern: Unlabored BP Systolic 126 mm[Hg] Comments: Patient Position: Sitting; Cuff Location: Left Arm; Cuff Size: Large BP Diastolic 82 mm[Hg] Comments: Patient Position: Sitting; Cuff Location: Left Arm; Cuff Size: Large Weight 0 lb Height 0 in Head Circumference 0.00 cm :06 Pulse 76 /min Comments: Pattern: Regular Respiration Rate 16 /min Comments: Pattern: Unlabored BP Systolic 124 mm[Hg] Comments: Patient Position: Sitting; Cuff Location: Left Arm; Cuff Size: Standard BP Diastolic 80 mm[Hg] Comments: Patient Position: Sitting; Cuff Location: Left Arm; Cuff Size: Standard Weight 214 lb Height 0 in Head Circumference 0.00 cm :58 Pulse 72 /min Comments: Pattern: Regular Respiration Rate 16 /min Comments: Pattern: Unlabored BP Systolic 122 mm[Hg] Comments: Patient Position: Sitting; Cuff Location: Left Arm; Cuff Size: Large BP Diastolic 82 mm[Hg] Comments: Patient Position: Sitting; Cuff Location: Left Arm; Cuff Size: Large Weight 0 lb Height 0 in Head Circumference 0.00 cm :54 Pulse 76 /min Comments: Pattern: Regular Respiration Rate 16 /min Comments: Pattern: Unlabored BP Systolic 120 mm[Hg] Comments: Patient Position: Sitting; Cuff Location: Left Arm; Cuff Size: Large BP Diastolic 78 mm[Hg] Comments: Patient Position: Sitting; Cuff Location: Left Arm; Cuff Size: Large Weight 0 lb Height 0 in Head Circumference 0.00 cm :35 Temperature 98.2 f Comments: Method: Oral Pulse 104 /min Comments: Pattern: Regular Respiration Rate 18 /min Comments: Pattern: Unlabored BP Systolic 116 mm[Hg] Comments: Patient Position: Sitting; Cuff Location: Left Arm; Cuff Size: Large BP Diastolic 76 mm[Hg] Comments: Patient Position: Sitting; Cuff Location: Left Arm; Cuff Size: Large Weight 0 lb Height 0 in Head Circumference 0.00 cm :55 Temperature 98.3 f Comments: Method: Oral Pulse 78 /min Comments: Pattern: Regular Respiration Rate 16 /min Comments: Pattern: Unlabored BP Systolic 124 mm[Hg] Comments: Patient Position: Sitting; Cuff Location: Left Arm; Cuff Size: Large BP Diastolic 82 mm[Hg] Comments: Patient Position: Sitting; Cuff Location: Left Arm; Cuff Size: Large Weight 212 lb Height 0 in Head Circumference 0.00 cm :16 Temperature 97.5 f Comments: Method: Oral Pulse 102 /min Comments: Pattern: Regular Respiration Rate 18 /min Comments: Pattern: Unlabored O2 SAT 99 % Comments: Room air BP Systolic 124 mm[Hg] Comments: Patient Position: Sitting; Cuff Location: Left Arm; Cuff Size: Large BP Diastolic 88 mm[Hg] Comments: Patient Position: Sitting; Cuff Location: Left Arm; Cuff Size: Large Weight 209 lb Height 0 in Head Circumference 0.00 cm :56 Temperature 97.1 f Comments: Method: Oral Pulse 88 /min Comments: Pattern: Regular Respiration Rate 20 /min Comments: Pattern: Unlabored O2 SAT 93 % Comments: Room air BP Systolic 138 mm[Hg] Comments: Patient Position: Sitting; Cuff Location: Left Arm; Cuff Size: Large BP Diastolic 78 mm[Hg] Comments: Patient Position: Sitting; Cuff Location: Left Arm; Cuff Size: Large Weight 209 lb Height 0 in Head Circumference 0.00 cm :56 Temperature 98.1 f Comments: Method: Oral Pulse 72 /min Comments: Pattern: Regular Respiration Rate 16 /min Comments: Pattern: Unlabored BP Systolic 120 mm[Hg] Comments: Patient Position: Sitting; Cuff Location: Left Arm; Cuff Size: Standard BP Diastolic 80 mm[Hg] Comments: Patient Position: Sitting; Cuff Location: Left Arm; Cuff Size: Standard Weight 0 lb Height 0 in Head Circumference 0.00 cm :47 Temperature 97.2 f Comments: Method: Oral Pulse 88 /min Comments: Pattern: Regular Respiration Rate 20 /min Comments: Pattern: Unlabored BP Systolic 128 mm[Hg] Comments: Patient Position: Sitting; Cuff Location: Left Arm; Cuff Size: Large BP Diastolic 82 mm[Hg] Comments: Patient Position: Sitting; Cuff Location: Left Arm; Cuff Size: Large Weight 209 lb Height 0 in Head Circumference 0.00 cm :50 Temperature 99.1 f Comments: Method: Oral Pulse 84 /min Comments: Pattern: Regular Respiration Rate 20 /min Comments: Pattern: Unlabored BP Systolic 110 mm[Hg] Comments: Patient Position: Sitting; Cuff Location: Right Arm; Cuff Size: Standard BP Diastolic 72 mm[Hg] Comments: Patient Position: Sitting; Cuff Location: Right Arm; Cuff Size: Standard Weight 209 lb Height 0 in Head Circumference 0.00 cm :52 Temperature 99.9 f Comments: Method: Undefined Pulse 112 /min Comments: Pattern: Regular Respiration Rate 18 /min Comments: Pattern: Undefined O2 SAT 96 % Comments: Room air BP Systolic 126 mm[Hg] Comments: Patient Position: Sitting; Cuff Location: Right Arm; Cuff Size: Large BP Diastolic 64 mm[Hg] Comments: Patient Position: Sitting; Cuff Location: Right Arm; Cuff Size: Large Weight 0 lb Height 0 in Head Circumference 0.00 cm :42 Temperature 99 f Comments: Method: Oral Pulse 84 /min Comments: Pattern: Regular Respiration Rate 18 /min Comments: Pattern: Unlabored O2 SAT 100 % Comments: Room air BP Systolic 116 mm[Hg] Comments: Patient Position: Sitting; Cuff Location: Left Arm; Cuff Size: Large BP Diastolic 78 mm[Hg] Comments: Patient Position: Sitting; Cuff Location: Left Arm; Cuff Size: Large Weight 0 lb Height 0 in Head Circumference 0.00 cm :30 Temperature 98.5 f Comments: Method: Undefined Pulse 106 /min Comments: Pattern: Regular Respiration Rate 20 /min Comments: Pattern: Unlabored O2 SAT 98 % Comments: Room air BP Systolic 118 mm[Hg] Comments: Patient Position: Sitting; Cuff Location: Left Arm; Cuff Size: Large BP Diastolic 58 mm[Hg] Comments: Patient Position: Sitting; Cuff Location: Left Arm; Cuff Size: Large Weight 0 lb Height 0 in Head Circumference 0.00 cm :02 Temperature 98.1 c Comments: Method: Oral Pulse 80 /min Comments: Pattern: Regular Respiration Rate 20 /min Comments: Pattern: Unlabored BP Systolic 118 mm[Hg] Comments: Patient Position: Sitting; Cuff Location: Right Arm; Cuff Size: Large BP Diastolic 78 mm[Hg] Comments: Patient Position: Sitting; Cuff Location: Right Arm; Cuff Size: Large Weight 204 lb Height 0 in Head Circumference 0.00 cm :12 Temperature 98.4 f Comments: Method: Oral Pulse 74 /min Comments: Pattern: Regular Respiration Rate 18 /min Comments: Pattern: Unlabored BP Systolic 120 mm[Hg] Comments: Patient Position: Sitting; Cuff Location: Left Arm; Cuff Size: Standard BP Diastolic 80 mm[Hg] Comments: Patient Position: Sitting; Cuff Location: Left Arm; Cuff Size: Standard Weight 204 lb Height 0 in Head Circumference 0.00 cm :35 Temperature 98.2 f Comments: Method: Oral Pulse 70 /min Comments: Pattern: Regular Respiration Rate 18 /min Comments: Pattern: Unlabored BP Systolic 122 mm[Hg] Comments: Patient Position: Sitting; Cuff Location: Left Arm; Cuff Size: Standard BP Diastolic 80 mm[Hg] Comments: Patient Position: Sitting; Cuff Location: Left Arm; Cuff Size: Standard Weight 203 lb Height 0 in Head Circumference 0.00 cm :24 Temperature 97.9 f Comments: Method: Oral Pulse 70 /min Comments: Pattern: Regular Respiration Rate 18 /min Comments: Pattern: Unlabored BP Systolic 120 mm[Hg] Comments: Patient Position: Sitting; Cuff Location: Left Arm; Cuff Size: Standard BP Diastolic 80 mm[Hg] Comments: Patient Position: Sitting; Cuff Location: Left Arm; Cuff Size: Standard Weight 206 lb Height 0 in Head Circumference 0.00 cm :26 Temperature 98.4 f Comments: Method: Oral Pulse 84 /min Comments: Pattern: Regular Respiration Rate 20 /min Comments: Pattern: Unlabored O2 SAT 99 % Comments: Room air BP Systolic 136 mm[Hg] Comments: Patient Position: Sitting; Cuff Location: Left Arm; Cuff Size: Large BP Diastolic 80 mm[Hg] Comments: Patient Position: Sitting; Cuff Location: Left Arm; Cuff Size: Large Weight 197 lb Height 0 in Head Circumference 0.00 cm :58 Temperature 98.2 f Comments: Method: Oral Pulse 72 /min Comments: Pattern: Regular Respiration Rate 20 /min Comments: Pattern: Unlabored O2 SAT 98 % Comments: Room air BP Systolic 138 mm[Hg] Comments: Patient Position: Sitting; Cuff Location: Left Arm; Cuff Size: Large BP Diastolic 82 mm[Hg] Comments: Patient Position: Sitting; Cuff Location: Left Arm; Cuff Size: Large Weight 197 lb Height 0 in Head Circumference 0.00 cm :12 Temperature 97.5 f Comments: Method: Oral Pulse 80 /min Comments: Pattern: Regular Respiration Rate 18 /min Comments: Pattern: Unlabored BP Systolic 102 mm[Hg] Comments: Patient Position: Sitting; Cuff Location: Left Arm; Cuff Size: Standard BP Diastolic 78 mm[Hg] Comments: Patient Position: Sitting; Cuff Location: Left Arm; Cuff Size: Standard Weight 197 lb Height 0 in Head Circumference 0.00 cm :13 Temperature 98.2 f Comments: Method: Oral Pulse 96 /min Comments: Pattern: Regular Respiration Rate 18 /min Comments: Pattern: Unlabored BP Systolic 144 mm[Hg] Comments: Patient Position: Sitting; Cuff Location: Right Arm; Cuff Size: Standard BP Diastolic 98 mm[Hg] Comments: Patient Position: Sitting; Cuff Location: Right Arm; Cuff Size: Standard Weight 0 lb Height 0 in Head Circumference 0.00 cm :39 Temperature 97.6 f Comments: Method: Oral Pulse 74 /min Comments: Pattern: Regular Respiration Rate 20 /min Comments: Pattern: Unlabored BP Systolic 124 mm[Hg] Comments: Patient Position: Sitting; Cuff Location: Left Arm; Cuff Size: Standard BP Diastolic 82 mm[Hg] Comments: Patient Position: Sitting; Cuff Location: Left Arm; Cuff Size: Standard Weight 0 lb Height 0 in Head Circumference 0.00 cm :53 Temperature 98.6 f Comments: Method: Oral Pulse 74 /min Comments: Pattern: Regular Respiration Rate 20 /min Comments: Pattern: Unlabored BP Systolic 126 mm[Hg] Comments: Patient Position: Sitting; Cuff Location: Left Arm; Cuff Size: Standard BP Diastolic 84 mm[Hg] Comments: Patient Position: Sitting; Cuff Location: Left Arm; Cuff Size: Standard Weight 0 lb Height 0 in Head Circumference 0.00 cm :02 Temperature 98.1 f Comments: Method: Oral Pulse 78 /min Comments: Pattern: Regular Respiration Rate 20 /min Comments: Pattern: Unlabored BP Systolic 124 mm[Hg] Comments: Patient Position: Sitting; Cuff Location: Left Arm; Cuff Size: Standard BP Diastolic 80 mm[Hg] Comments: Patient Position: Sitting; Cuff Location: Left Arm; Cuff Size: Standard Weight 0 lb Height 0 in Head Circumference 0.00 cm :03 Temperature 97.6 f Comments: Method: Oral Pulse 70 /min Comments: Pattern: Regular Respiration Rate 20 /min Comments: Pattern: Unlabored BP Systolic 124 mm[Hg] Comments: Patient Position: Sitting; Cuff Location: Left Arm; Cuff Size: Standard BP Diastolic 78 mm[Hg] Comments: Patient Position: Sitting; Cuff Location: Left Arm; Cuff Size: Standard Weight 198 lb Height 0 in Head Circumference 0.00 cm :27 Temperature 98.4 f Comments: Method: Oral Pulse 86 /min Comments: Pattern: Regular Respiration Rate 18 /min Comments: Pattern: Unlabored BP Systolic 120 mm[Hg] Comments: Patient Position: Sitting; Cuff Location: Left Arm; Cuff Size: Standard BP Diastolic 88 mm[Hg] Comments: Patient Position: Sitting; Cuff Location: Left Arm; Cuff Size: Standard Weight 197 lb Height 0 in Head Circumference 0.00 cm :31 Temperature 97.7 f Comments: Method: Oral Pulse 94 /min Comments: Pattern: Regular Respiration Rate 24 /min Comments: Pattern: Unlabored BP Systolic 120 mm[Hg] Comments: Patient Position: Sitting; Cuff Location: Left Arm; Cuff Size: Standard BP Diastolic 80 mm[Hg] Comments: Patient Position: Sitting; Cuff Location: Left Arm; Cuff Size: Standard Weight 0 lb Height 0 in Head Circumference 0.00 cm :00 Temperature 97.9 f Comments: Method: Oral Pulse 72 /min Comments: Pattern: Regular Respiration Rate 16 /min Comments: Pattern: Unlabored BP Systolic 124 mm[Hg] Comments: Patient Position: Sitting; Cuff Location: Left Arm; Cuff Size: Standard BP Diastolic 78 mm[Hg] Comments: Patient Position: Sitting; Cuff Location: Left Arm; Cuff Size: Standard Weight 0 lb Height 0 in Head Circumference 0.00 cm :23 Temperature 97.8 f Comments: Method: Oral Pulse 102 /min Comments: Pattern: Regular Respiration Rate 20 /min Comments: Pattern: Unlabored O2 SAT 98 % Comments: Room air BP Systolic 124 mm[Hg] Comments: Patient Position: Sitting; Cuff Location: Left Arm; Cuff Size: Standard BP Diastolic 80 mm[Hg] Comments: Patient Position: Sitting; Cuff Location: Left Arm; Cuff Size: Standard Weight 197 lb Height 0 in Head Circumference 0.00 cm :19 Temperature 98.4 f Comments: Method: Oral Pulse 100 /min Comments: Pattern: Regular Respiration Rate 22 /min Comments: Pattern: Wheezing O2 SAT 99 % Comments: Room air BP Systolic 122 mm[Hg] Comments: Patient Position: Sitting; Cuff Location: Left Arm; Cuff Size: Standard BP Diastolic 84 mm[Hg] Comments: Patient Position: Sitting; Cuff Location: Left Arm; Cuff Size: Standard Weight 0 lb Height 0 in Head Circumference 0.00 cm :21 Temperature 97.9 f Comments: Method: Oral Pulse 96 /min Comments: Pattern: Regular Respiration Rate 20 /min Comments: Pattern: Unlabored O2 SAT 98 % Comments: Room air BP Systolic 120 mm[Hg] Comments: Patient Position: Sitting; Cuff Location: Left Arm; Cuff Size: Standard BP Diastolic 78 mm[Hg] Comments: Patient Position: Sitting; Cuff Location: Left Arm; Cuff Size: Standard Weight 182 lb Height 0 in Head Circumference 0.00 cm :21 Temperature 98.3 f Comments: Method: Oral Pulse 70 /min Comments: Pattern: Regular Respiration Rate 20 /min Comments: Pattern: Unlabored BP Systolic 122 mm[Hg] Comments: Patient Position: Sitting; Cuff Location: Left Arm; Cuff Size: Standard BP Diastolic 78 mm[Hg] Comments: Patient Position: Sitting; Cuff Location: Left Arm; Cuff Size: Standard Weight 182 lb Height 0 in Head Circumference 0.00 cm :25 Temperature 97.6 f Comments: Method: Oral Pulse 78 /min Comments: Pattern: Regular Respiration Rate 20 /min Comments: Pattern: Unlabored BP Systolic 124 mm[Hg] Comments: Patient Position: Sitting; Cuff Location: Left Arm; Cuff Size: Standard BP Diastolic 82 mm[Hg] Comments: Patient Position: Sitting; Cuff Location: Left Arm; Cuff Size: Standard Weight 183 lb Height 0 in Head Circumference 0.00 cm :34 Temperature 98 f Comments: Method: Oral Pulse 70 /min Comments: Pattern: Regular Respiration Rate 16 /min Comments: Pattern: Unlabored BP Systolic 124 mm[Hg] Comments: Patient Position: Sitting; Cuff Location: Left Arm; Cuff Size: Standard BP Diastolic 72 mm[Hg] Comments: Patient Position: Sitting; Cuff Location: Left Arm; Cuff Size: Standard Weight 180.25 lb Height 0 in Head Circumference 0.00 cm :53 Temperature 98.1 f Comments: Method: Oral Pulse 84 /min Comments: Pattern: Regular BP Systolic 110 mm[Hg] Comments: Patient Position: Sitting; Cuff Location: Left Arm; Cuff Size: Standard BP Diastolic 78 mm[Hg] Comments: Patient Position: Sitting; Cuff Location: Left Arm; Cuff Size: Standard Weight 180 lb Height 0 in Head Circumference 0.00 cm Results Date Description Value Details 03-Apr-20188:00 Protime w/INR Fingerstick Comments: [facility] LaboratoryPoint of [address] [place], [place] [id number] INR ISTAT 1.10 (Normal) Comments: Critical Value > 3.5 PROTIME ISTAT 13.7 {SEC} (Normal) Range: 11.9-14.4 Comments: Reference Range 11.9 - 14.4 :23 Amylase 89 U/L (Normal) Comments: PATIENT NOT FASTINGPERFORMED BY: [facility] [id number] Range: 31-124 :23 CBC With Differential/Platelet Comments: PATIENT NOT FASTINGPERFORMED BY: [facility] [id number] Immature Grans (Abs) 0.0 {x10E3/uL} (Normal) Range: 0.0-0.1 Immature Granulocytes 0 % (Normal) Baso (Absolute) 0.0 {x10E3/uL} (Normal) Range: 0.0-0.2 Eos (Absolute) 0.2 {x10E3/uL} (Normal) Range: 0.0-0.4 Monocytes(Absolute) 0.3 {x10E3/uL} (Normal) Range: 0.1-0.9 Lymphs (Absolute) 1.6 {x10E3/uL} (Normal) Range: 0.7-3.1 Neutrophils (Absolute) 2.0 {x10E3/uL} (Normal) Range: 1.4-7.0 Basos 0 % (Normal) Eos 5 % (Normal) Monocytes 8 % (Normal) Lymphs 39 % (Normal) Neutrophils 48 % (Normal) Platelets 271 {x10E3/uL} (Normal) Range: 150-379 RDW 14.4 % (Normal) Range: 12.3-15.4 MCHC 33.1 g/dL (Normal) Range: 31.5-35.7 MCH 30.0 pg (Normal) Range: 26.6-33.0 MCV 91 fL (Normal) Range: 79-97 Hematocrit 38.7 % (Normal) Range: 34.0-46.6 Hemoglobin 12.8 g/dL (Normal) Range: 11.1-15.9 RBC 4.26 {x10E6/uL} (Normal) Range: 3.77-5.28 WBC 4.2 {x10E3/uL} (Normal) Range: 3.4-10.8 40-Hiy-784676:23 Comp. Metabolic Panel (14) Comments: PATIENT NOT FASTINGPERFORMED BY: [facility] HospitalGrpisa4941 [facility] [id number] ALT (SGPT) 18 [iU]/L (Normal) Range: 0-32 AST (SGOT) 21 [iU]/L (Normal) Range: 0-40 Alkaline Phosphatase 83 [iU]/L (Normal) Range: 39-117 Bilirubin, Total 0.5 mg/dL (Normal) Range: 0.0-1.2 A/G Ratio 2.3 (Abnormal) Range: 1.2-2.2 Globulin, Total 2.0 g/dL (Normal) Range: 1.5-4.5 Albumin 4.6 g/dL (Normal) Range: 3.6-4.8 Protein, Total 6.6 g/dL (Normal) Range: 6.0-8.5 Calcium 9.3 mg/dL (Normal) Range: 8.7-10.3 Carbon Dioxide, Total 27 mmol/L (Normal) Range: 20-29 Chloride 98 mmol/L (Normal) Range: 96-106 Potassium 4.5 mmol/L (Normal) Range: 3.5-5.2 Sodium 139 mmol/L (Normal) Range: 134-144 BUN/Creatinine Ratio 20 (Normal) Range: 12-28 eGFR If Africn Am 89 mL/min/1.73 (Normal) eGFR If NonAfricn Am 77 mL/min/1.73 (Normal) Creatinine 0.82 mg/dL (Normal) Range: 0.57-1.00 BUN 16 mg/dL (Normal) Range: 8-27 Glucose 95 mg/dL (Normal) Range: 65-99 Lipase 98 U/L (Abnormal) Comments: PATIENT NOT FASTINGPERFORMED BY: [facility] HospitalAzuied2105 [facility] [id number] 4:23 Range: 14-72 55-Vfj-990409:23 Urinalysis, Routine Comments: PATIENT NOT FASTINGPERFORMED BY: [employer] Vwarwu4183 [facility] [id number] Microscopic Examination MICNIP (Normal) Comments: Microscopic not indicated and not performed. Nitrite, Urine Negative (Normal) Urobilinogen,Semi-Qn 1.0 mg/dL (Normal) Range: 0.2-1.0 Bilirubin Negative (Normal) Occult Blood Negative (Normal) Ketones Negative (Normal) Glucose Negative (Normal) Protein Negative (Normal) WBC Esterase Negative (Normal) Appearance Clear (Normal) Urine-Color Yellow (Normal) pH 6.0 (Normal) Range: 5.0-7.5 Specific [place] 1.020 (Normal) Range: 1.005-1.030 :42 Protime w/INR Fingerstick Comments: [facility] LaboratoryPoint of [address] [place], [place] [address] INR ISTAT 1.00 (Normal) Comments: Critical Value > 3.5 PROTIME ISTAT 12.4 {SEC} (Normal) Range: 11.9-14.4 Comments: Reference Range 11.9 - 14.4 36-Eqw-149305:14 CBC W/Diff, Automated Comments: [facility] [address] [place], [place], [address] ; fu 6-19 Absolute Lymph 1.62 {X10_3/ul} (Normal) Range: 0.83-4.51 Absolute Neut 2.5 {X10_3/uL} (Normal) Range: 2.0-7.7 IM GRAN % 0.000 % (Normal) Range: 0.0-0.9 Comments: IG% - Immature Granulocytes (promyelocytes, myelocytes andmetamyelocytes) > 1% indicates that a LEFT SHIFT is Present. BASO% 0.2 % (Normal) Range: 0-1 EO% 4.9 % (Normal) Range: 0-5 MONO% 7.2 % (Normal) Range: 0-10 LY% 34.5 % (Normal) Range: 19-41 NEUT% 53.2 % (Normal) Range: 47-70 MPV 9.4 fL (Normal) Range: 6.2-12.0 PLT 238 K/mm3 (Normal) Range: 150-450 RDW SD 46.2 fL (Abnormal) Range: 35.1-43.9 RDW CV 13.9 % (Normal) Range: 11.6-14.6 MCHC 33.3 {g/gl} (Normal) Range: 32-36 MCH 30.4 pg (Normal) Range: 27.0-32.0 MCV 91.1 fL (Normal) Range: 81-99 HCT 35.7 % (Abnormal) Range: 37-47 HGB 11.9 g/dL (Abnormal) Range: 12.0-15.0 RBC 3.92 {M/mm3} (Abnormal) Range: 4.2-5.4 WBC 4.7 K/mm3 (Normal) Range: 4.4-11.0 44-Uwp-483263:14 Comprehensive Metabolic Profil Comments: [facility] [address] [place], [address] GAP 5 (Normal) Range: 5-15 CO2 29.0 mmol/L (Normal) Range: 21.0-32.0 CL 103 mmol/L (Normal) Range: 98-107 K 4.2 mmol/L (Normal) Range: 3.5-5.1 NA 137 mmol/L (Normal) Range: 136-145 T BILI 0.30 mg/dL (Normal) Range: 0.20-1.00 ALT 25 U/L (Normal) Range: 13-56 ALK P 87 U/L (Normal) Range: 45-117 AST 22 U/L (Normal) Range: 15-37 CA 8.5 mg/dL (Normal) Range: 8.5-10.1 A/G 1.2 {RATIO} (Normal) Range: 0.9-2.4 GLOB 3.1 g/dL (Normal) Range: 2.2-4.2 ALB 3.7 g/dL (Normal) Range: 3.2-5.0 T PROT 6.8 g/dL (Normal) Range: 6.4-8.2 BUN/CRE 19.2 {RATIO} (Normal) Range: 10-20 EST GFR - AA 96 mL/min (Normal) Comments: GFR Calc EST GFR 79 mL/min (Normal) Comments: Non- GFR Calc CREAT,SERUM 0.78 mg/dL (Normal) Range: 0.55-1.02 Comments: The validity of the calculated GFR AND GFRAA in patients over70 years has not been determined. Clinical correlation isessential. BUN 15 mg/dL (Normal) Range: 7-18 GLU 101 mg/dL (Normal) Range: 74-106 Comments: Fasting Glucose result from 100 to 125 mg/dLsuggests IMPAIRED HOMEOSTASIS per A.D.A. criteria.Please note revised GLUCOSE reference range yzdbbxzke51/02/2018. 35-Pef-574826:14 Ferritin Comments: [facility] [address] [place], [address] FERRITIN 82 ng/mL (Normal) Range: 8-252 17-Kij-932009:14 Vitamin B12 558 pg/mL (Normal) Comments: [facility] [address] [place], [address] Range: 211-911 :07 Protime w/INR Fingerstick Comments: [facility] LaboratoryPoint [place] [address] [place] [address] INR ISTAT 1.30 (Normal) Comments: Critical Value > 3.5 PROTIME ISTAT 14.9 {SEC} (Abnormal) Range: 11.9-14.4 Comments: Reference Range 11.9 - 14.4 08-Aug-20179:10 Protime w/INR Fingerstick Comments: [facility] LaboratoryPoint [place] [address] [place] [address] INR ISTAT 1.10 (Normal) Comments: Critical Value > 3.5 PROTIME ISTAT 13.0 {SEC} (Normal) Range: 11.9-14.4 Comments: Reference Range 11.9 - 14.4 31-Fwl-877393:32 Culture, Blood (WB) Comments: [facility] [address] [place], [address] CUB See Note (Normal) Comments: Has pt arrived? Y Comments: DR. Mello growth in 5 days. 45-Yfo-077704:25 CBC W/Diff, Automated Comments: Comments: DR Cui [facility] [address] [place], [id number] Absolute Lymph 1.68 {X10_3/ul} (Normal) Range: 0.83-4.51 Absolute Neut 1.8 {X10_3/uL} (Abnormal) Range: 2.0-7.7 IM GRAN % 0.300 % (Normal) Range: 0.0-0.9 Comments: IG% - Immature Granulocytes (promyelocytes, myelocytes andmetamyelocytes) > 1% indicates that a LEFT SHIFT is Present. BASO% 0.3 % (Normal) Range: 0-1 EO% 4.3 % (Normal) Range: 0-5 MONO% 6.9 % (Normal) Range: 0-10 LY% 42.6 % (Abnormal) Range: 19-41 NEUT% 45.6 % (Abnormal) Range: 47-70 MPV 9.8 fL (Normal) Range: 6.2-12.0 PLT 241 K/mm3 (Normal) Range: 150-450 RDW SD 55.2 fL (Abnormal) Range: 35.1-43.9 RDW CV 16.8 % (Abnormal) Range: 11.6-14.6 MCHC 32.8 {g/gl} (Normal) Range: 32-36 MCH 29.5 pg (Normal) Range: 27.0-32.0 MCV 90.1 fL (Normal) Range: 81-99 HCT 37.2 % (Normal) Range: 37-47 HGB 12.2 g/dL (Normal) Range: 12.0-15.0 RBC 4.13 {M/mm3} (Abnormal) Range: 4.2-5.4 WBC 3.9 K/mm3 (Abnormal) Range: 4.4-11.0 67-Pqu-251639:25 Culture, Blood (WB) Comments: [facility] [address] [place], [address] CUB See Note (Normal) Comments: Has pt arrived? Y Comments: DR. Mello growth in 5 days. 02-Uom-072375:25 Erythrocyte Sed Rate Comments: Comments: [facility] [address] [place], [address] SED RATE 8 mm/h (Normal) Range: 0-30 36-Bvq-511663:25 Ferritin Comments: Comments: [facility] [address] [place], [address] FERRITIN 83 ng/mL (Normal) Range: 8-252 87-Gzo-150050:25 Vitamin D,25 Hydroxy Comments: Order Date: 07/20/17[facility] [address]én[place], [address] Vitamin D 25-OH 34.6 ng/mL (Normal) Comments: Vitamin D 25(OH) Status Range Deficiency <20 ng/mL (50nmol/L) Insuffciency 20 - 30 ng/mL (50 - 75 nmol/L) Sufficiency 30 - 100 ng/mL (75 - 250 nmol/L) Toxicity >100 ng/mL (>250 nmol/L) 66-Gzf-509555:10 Culture, Urine Comments: [facility] [address]ITTANY Mén[place], [id number] CUUR See Note (Normal) Comments: Order Date: 07/20/17 Comments: DR PIZANO Urine CultureCulture exhibits no growth. 10-Hic-447954:10 Urinalysis, Complete Comments: Order Date: 07/20/17Has pt arrived? YComments: DR Morales was Urine Obtained? CLEAN [facility] Ytcofydbsj5042[place], [id number] MUCUS, URINE 0 SEEN {/hpf} (Normal) BACTERIA 0 SEEN {/hpf} (Normal) SQUAM EPI 5-10 SEEN {/hpf} (Normal) Range: 5-10 RBC-UA 0 SEEN {/hpf} (Normal) Range: 0-5 WBC 0 SEEN {/hpf} (Normal) Range: 0-5 LEUK ESTERASE Negative /ul (Normal) OCCULT BLOOD-UR Negative /ul (Normal) NITRITE UR Negative (Normal) UROBILI Normal mg/dL (Normal) PROT DIPSTX Negative mg/dL (Normal) pH UR 6.5 (Normal) Range: 5.0 - 8.0 SP.GR. DIPSTX 1.010 (Normal) Range: 1.002-1.030 KETONE UR Negative mg/dL (Normal) BILIRUBIN URINE Negative mg/dL (Normal) GLUCOSE, UR Normal mg/dL (Normal) CLARITY Clear (Normal) COLOR Yellow (Normal) 1-Nzl-412134:48 Protime w/INR Fingerstick Comments: [place] [address] [place] [address] INR ISTAT 1.10 (Normal) Comments: Critical Value > 3.5 PROTIME ISTAT 13.2 {SEC} (Normal) Range: 11.9-14.4 Comments: Reference Range 11.9 - 14.4 :30 Protime w/INR Fingerstick Comments: [place] [address] [place] [address] INR ISTAT 1.10 (Normal) Comments: Critical Value > 3.5 PROTIME ISTAT 12.8 {SEC} (Normal) Range: 11.9-14.4 Comments: Reference Range 11.9 - 14.4 :44 INR Fingerstick Comments: [place] [address] [place] [address] INR ISTAT 1.10 (Normal) Comments: Critical Value > 3.5 :44 Prothrombin Time Fingerstick Comments: [place] [address] [place] [address] PROTIME ISTAT 13.6 {SEC} (Normal) Range: 11.9-14.4 Comments: Reference Range 11.9 - 14.4 47-Qwx-566418:17 HgA1C , Office (42081) HgA1C , Office 5.7 % (Normal) Range: 4.6 - 7.1 :08 Metabolic Panel, Basic Comments: PATIENT NOT FASTINGPERFORMED BY: [facility]CoHoly Name Medical CenterAmgsvm4727 [facility] [id number] ([id number]) Calcium, Serum 9.1 mg/dL (Normal) Range: 8.7-10.3 Carbon Dioxide, Total 24 mmol/L (Normal) Range: 18-29 Chloride, Serum 97 mmol/L (Normal) Range: 96-106 Potassium, Serum 4.7 mmol/L (Normal) Range: 3.5-5.2 Sodium, Serum 137 mmol/L (Normal) Range: 134-144 BUN/Creatinine Ratio 19 (Normal) Range: 12-28 eGFR If Africn Am 105 mL/min/1.73 (Normal) eGFR If NonAfricn Am 91 mL/min/1.73 (Normal) Creatinine, Serum 0.72 mg/dL (Normal) Range: 0.57-1.00 BUN 14 mg/dL (Normal) Range: 8-27 Glucose, Serum 97 mg/dL (Normal) Range: 65-99 76-Nkj-583605:08 CBC (Auto) (85637) Comments: PATIENT NOT FASTINGPERFORMED BY: [facility]ifyK[place] [address]370 [facility] [id number] Platelets 306 {x10E3/uL} (Normal) Range: 150-379 RDW 15.6 % (Abnormal) Range: 12.3-15.4 MCHC 32.9 g/dL (Normal) Range: 31.5-35.7 MCH 28.3 pg (Normal) Range: 26.6-33.0 MCV 86 fL (Normal) Range: 79-97 Hematocrit 35.9 % (Normal) Range: 34.0-46.6 Hemoglobin 11.8 g/dL (Normal) Range: 11.1-15.9 RBC 4.17 {x10E6/uL} (Normal) Range: 3.77-5.28 WBC 4.6 {x10E3/uL} (Normal) Range: 3.4-10.8 :08 URINALYSIS W/O MICRO (15613) Comments: PATIENT NOT FASTINGPERFORMED BY: [facility]Co[facility] CenterBqjfgm7365 [facility] [id number] Microscopic Examination MICNIP (Normal) Comments: Microscopic not indicated and not performed. Nitrite, Urine Negative (Normal) Urobilinogen,Semi-Qn 0.2 mg/dL (Normal) Range: 0.2-1.0 Bilirubin Negative (Normal) Occult Blood Negative (Normal) Ketones Negative (Normal) Glucose Negative (Normal) Protein Negative (Normal) WBC Esterase Negative (Normal) Appearance Clear (Normal) Urine-Color Yellow (Normal) pH 6.0 (Normal) Range: 5.0-7.5 Specific [place] 1.013 (Normal) Range: 1.005-1.030 30-Ujk-377969:08 COMPLEMENT C4 (46157) Comments: PATIENT NOT FASTINGPERFORMED BY: [facility]6370 [facility] [id number] Complement C4, Serum 16 mg/dL (Normal) Range: 14-44 37-Nvg-586681:08 COMPLEMENT C3 (50350) Comments: PATIENT NOT FASTINGPERFORMED BY: [facility]6370 [facility] [id number] Complement C3, Serum 103 mg/dL (Normal) Range: 82-167 59-Nea-799423:08 DNA ANTIBODY-NATV/DBL ST (29552) Comments: PATIENT NOT FASTINGPERFORMED BY: [place] [address] [facility] [id number] test code 304696 Anti-DNA (DS) Ab Qn <1 {IU/mL} (Normal) Range: 0-9 Comments: Negative <5 Equivocal 5 - 9 Positive >9 27-Fkv-848787:08 Sed Rate Erythrocyte (65198) Comments: PATIENT NOT FASTINGPERFORMED BY: [facility]6370 [facility] [id number] Sedimentation Rate-Westergren 4 mm/h (Normal) Range: 0-40 14-Szo-789535:08 DESIRAE (ANTINUCLEAR ANTIBODY) Comments: PATIENT NOT FASTINGPERFORMED BY: [facility]6370 [facility] [id number] (93097) DESIRAE Direct Negative (Normal) 2-Sbc-566097:04 Prothrombin Time w/INR Comments: [facility] [address] [place], [place], [id number] INR 1.5 (Normal) PROTIME 17.8 s (Abnormal) Range: 11.7-14.9 88-Bjn-619709:45 Prothrombin Time w/INR Comments: [facility] [address] [place], [place], [id number]) INR 3.0 (Normal) PROTIME 30.3 s (Abnormal) Range: 11.7-14.9 09-Oct-20168:51 Serum Creatinine AND GFR Comments: [facility] [address] [place], [address] EST GFR - AA 90 mL/min (Normal) Comments: GFR Calc EST GFR 74 mL/min (Normal) Comments: Non- GFR Calc CREAT,SERUM 0.83 mg/dL (Normal) Range: 0.55-1.02 Comments: The validity of the calculated GFR AND GFRAA in patients over70 years has not been determined. Clinical correlation isessential. :21 LIPASE (26387) Comments: PATIENT NOT FASTINGPERFORMED BY: CB [facility] Nborll1509 [address] RoadDublin [place] [id number] Lipase, Serum 46 U/L (Normal) Range: 14-72 Comments: Please note reference interval change :21 AMYLASE (38485) Comments: PATIENT NOT FASTINGPERFORMED BY: CB [facility] Rxjeiq2113 [address] RoadDublin [place] [id number] Amylase, Serum 65 U/L (Normal) Range: 31-124 :21 CALCIFIDIOL (29828) VIT D 25 Comments: PATIENT NOT FASTINGPERFORMED BY: CB [facility] Tclfdw3919 [address] RoadDublin [place] [id number] Vitamin D, 25-Hydroxy 25.8 ng/mL (Abnormal) Range: 30.0-100.0 Comments: Vitamin D deficiency has been defined by the [place] [employer] and an Endocrine Society practice guideline as alevel of serum 25-OH vitamin D less than 20 ng/mL (1,2).The Endocrine Society went on to further define vitamin Dinsufficiency as a level between 21 and 29 ng/mL (2).1. IOM ([place] [employer]). 2010. Dietary reference intakes for calcium and D. [place]: The National Academies Press.2. Candelaria MF, Janey NC, Rahul-Everett GROSS, et al. Evaluation, treatment, and prevention of vitamin D deficiency: an Endocrine Society clinical practice guideline. JCEM. 2010; 96(7):1911-30. :21 Ferritin (37116) Comments: PATIENT NOT FASTINGPERFORMED BY: CB [facility] Zgolss8522 [address] RoadDublin [place] [id number]; fu 10-27 db Ferritin, Serum 10 ng/mL (Abnormal) Range: 15-150 6-Kse-321971:21 Vitamin B-12 (cyanocobalamin) Comments: PATIENT NOT FASTINGPERFORMED BY: [facility]6370 [facility] [id number] (77145) Vitamin B12 1888 pg/mL (Abnormal) Range: 211-946 4-Ndn-456325:21 METABOLIC PANEL, COMPREHENSIVE Comments: PATIENT NOT FASTINGPERFORMED BY: [facility]6370 [facility] [id number] (13472) ALT (SGPT) 11 [iU]/L (Normal) Range: 0-32 AST (SGOT) 13 [iU]/L (Normal) Range: 0-40 Alkaline Phosphatase, S 86 [iU]/L (Normal) Range: 39-117 Bilirubin, Total 0.2 mg/dL (Normal) Range: 0.0-1.2 A/G Ratio 2.0 (Normal) Range: 1.2-2.2 Globulin, Total 2.2 g/dL (Normal) Range: 1.5-4.5 Albumin, Serum 4.3 g/dL (Normal) Range: 3.6-4.8 Protein, Total, Serum 6.5 g/dL (Normal) Range: 6.0-8.5 Calcium, Serum 9.2 mg/dL (Normal) Range: 8.7-10.3 Carbon Dioxide, Total 28 mmol/L (Normal) Range: 18-29 Chloride, Serum 96 mmol/L (Normal) Range: 96-106 Potassium, Serum 4.7 mmol/L (Normal) Range: 3.5-5.2 Sodium, Serum 136 mmol/L (Normal) Range: 134-144 BUN/Creatinine Ratio 18 (Normal) Range: 12-28 eGFR If Africn Am 106 mL/min/1.73 (Normal) eGFR If NonAfricn Am 92 mL/min/1.73 (Normal) Creatinine, Serum 0.71 mg/dL (Normal) Range: 0.57-1.00 BUN 13 mg/dL (Normal) Range: 8-27 Glucose, Serum 101 mg/dL (Abnormal) Range: 65-99 5-Tca-846322:21 CBC with auto diff Comments: PATIENT NOT FASTINGPERFORMED BY: MONA Hapara6370 [facility]ilaFreeman [facility] [id number] Information: CLIENT DRAW (05170) Immature Grans (Abs) 0.0 {x10E3/uL} (Normal) Range: 0.0-0.1 Immature Granulocytes 0 % (Normal) Baso (Absolute) 0.0 {x10E3/uL} (Normal) Range: 0.0-0.2 Eos (Absolute) 0.2 {x10E3/uL} (Normal) Range: 0.0-0.4 Monocytes(Absolute) 0.3 {x10E3/uL} (Normal) Range: 0.1-0.9 Lymphs (Absolute) 2.1 {x10E3/uL} (Normal) Range: 0.7-3.1 Neutrophils (Absolute) 3.0 {x10E3/uL} (Normal) Range: 1.4-7.0 Basos 0 % (Normal) Eos 4 % (Normal) Monocytes 6 % (Normal) Lymphs 37 % (Normal) Neutrophils 53 % (Normal) Platelets 286 {x10E3/uL} (Normal) Range: 150-379 RDW 16.2 % (Abnormal) Range: 12.3-15.4 MCHC 32.2 g/dL (Normal) Range: 31.5-35.7 MCH 27.1 pg (Normal) Range: 26.6-33.0 MCV 84 fL (Normal) Range: 79-97 Hematocrit 34.2 % (Normal) Range: 34.0-46.6 Hemoglobin 11.0 g/dL (Abnormal) Range: 11.1-15.9 RBC 4.06 {x10E6/uL} (Normal) Range: 3.77-5.28 WBC 5.7 {x10E3/uL} (Normal) Range: 3.4-10.8 31-Mcf-126101:14 Prothrombin Time w/INR Comments: [facility] [address] [place], [place], [id number] INR 1.9 (Normal) Comments: ADDENDA: handled by cardio PROTIME 21.0 s (Abnormal) Range: 11.7-14.9 83-Wdi-951658:57 HEPATIC FUNCTION PANEL Comments: PATIENT NOT FASTINGPERFORMED BY: [facility]6370 [facility] [id number] ([id number]) ALT (SGPT) 15 [iU]/L (Normal) Range: 0-32 AST (SGOT) 20 [iU]/L (Normal) Range: 0-40 Alkaline Phosphatase, S 114 [iU]/L (Normal) Range: 39-117 Bilirubin, Direct 0.10 mg/dL (Normal) Range: 0.00-0.40 Comments: Please note reference interval change Bilirubin, Total <0.2 mg/dL (Normal) Range: 0.0-1.2 Albumin, Serum 4.9 g/dL (Abnormal) Range: 3.6-4.8 Protein, Total, Serum 7.1 g/dL (Normal) Range: 6.0-8.5 :57 IGA/IGD/IGG/IGM-EACH (12607) Comments: PATIENT NOT FASTINGPERFORMED BY: [facility]6370 [facility] [id number] Immunoglobulin E, Total 50 {IU/mL} (Normal) Range: 0-100 Immunoglobulin M, Qn, Serum 43 mg/dL (Normal) Range: 26-217 Immunoglobulin A, Qn, Serum 131 mg/dL (Normal) Range: 87-352 Immunoglobulin G, Qn, Serum 753 mg/dL (Normal) Range: 700-1600 :57 EBV ACUTE PFOF IgG/IgM Comments: PATIENT NOT FASTINGPERFORMED BY: [facility]6370 [facility] [id number] ([id number]) Interpretation: [facility] (Normal) Comments: EBV Interpretation Chart . Interpretation EBV-IgM EA(D)-IgG VCA-IgG EBNA-IgG . EBV Seronegative - - - - Early Phase + - - - Acute Primary + +or- + - Infection Convalescence/Past - +or- + + Infection Reactivated +or- + + + Infection + Antibody Present - Antibody Absent EBV Nuclear Antigen Ab, IgG 156.0 U/mL (Abnormal) Range: 0.0-17.9 Comments: Negative <18.0 Equivocal 18.0 - 21.9 Positive >21.9 EBV Ab VCA, IgG 246.0 U/mL (Abnormal) Range: 0.0-17.9 Comments: Negative <18.0 Equivocal 18.0 - 21.9 Positive >21.9 EBV Early Antigen Ab, IgG 14.4 U/mL (Abnormal) Range: 0.0-8.9 Comments: Hepatitis A, Hepatitis C and HIV antibodies may cross-reactwith this assay. Negative < 9.0 Equivoc al 9.0 - 10.9 Positive >10.9 EBV Ab VCA, IgM <36.0 U/mL (Normal) Range: 0.0-35.9 Comments: Negative <36.0 Equivocal 36.0 - 43.9 Positive >43.9 [id number] LDH (LD) (LACTATE DEHYDROGENASE) Comments: PATIENT NOT FASTINGPERFORMED BY: [address] [id number] ([id number]) LDH 191 [iU]/L (Normal) Range: 119-226 :57 HIV-1 & 2 ANTBDY-SNGL SHAWN Comments: PATIENT NOT FASTINGPERFORMED BY: [address] [id number] ([id number]) HIV Screen 4th Generation wRfx Non Reactive (Normal) :57 HEPATITIS PANEL (47601) Comments: PATIENT NOT FASTINGPERFORMED BY: [place] [id number] [facility] [id number] Hep C Virus Ab 0.1 {s/co_ratio} (Normal) Range: 0.0-0.9 Comments: Negative: < 0.8 Indeterminate: 0.8 - 0.9 Positive: > 0.9 . The CDC recommends that a positive HCV antibody result be followed up with a HCV Nucleic Acid Amplification test (901232). Hep B Core Ab, IgM Negative (Normal) HBsAg Screen Negative (Normal) Hep A Ab, IgM Negative (Normal) :56 Culture, Blood (WB) Comments: [facility] [address] [place], [place], [id number] CUB See Note (Normal) Comments: BCNo growth in 5 days. :56 EBV Acute Prof IgG / IgM Comments: [facility] (refer to report for specific site)refer to report for address and phone number INTERPRETATION Comment (Normal) Comments: EBV Interpretation ChartInterpretation EBV-IgM EA(D)-IgG VCA-IgG EBNA-IgGEBV Seronegative - - - -Early Phase + - - -Acute Primary + +or- + -InfectionConvalescence/Past - +or- + +InfectionReactivated +or- + + +Infection + Antibody Present - Antibody Ab sentPerformed at: [address] [id number] Director: Neo Campos PhD, Phone: [phone] EB-NAg [id number] 136.0 U/mL (Abnormal) Range: 0.0-17.9 Comments: Negative <18.0 Equivocal 18.0 - 21.9 Positive >21.9 EB-VCA [id number] 255.0 U/mL (Abnormal) Range: 0.0-17.9 Comments: Negative <18.0 Equivocal 18.0 - 21.9 Positive >21.9 EB-EA IgG 66943 18.4 U/mL (Abnormal) Range: 0.0-8.9 Comments: Hepatitis A, Hepatitis C and HIV antibodies may cross-reactwith this assay. Negative < 9.0 Equivocal 9.0 - 10.9 Positive >10.9 EB-VCA [id number] 36.1 U/mL (Abnormal) Range: 0.0-35.9 Comments: A second sample should be collected and tested no less than2-4 weeks. Negative <36.0 Equivocal 36.0 - 43.9 Positive >43.9 9-Oda-656886:56 Ferritin Comments: [facility] [address] [place] [address], [id number] FERRITIN 34 ng/mL (Normal) Range: 8-252 7-Xby-174056:56 Vitamin D,25 Hydroxy Comments: [facility] [address] [place], [address] Vitamin D 25-OH 29.2 ng/mL (Normal) Comments: Vitamin D 25(OH) Status Range Deficiency <20 ng/mL (50nmol/L) Insuffciency 20 - 30 ng/mL (50 - 75 nmol/L) Sufficiency 30 - 100 ng/mL (75 - 250 nmol/L) Toxicity >100 ng/mL (>250 nmol/L) 0-Ixx-666666:03 INR Fingerstick Comments: [place] [address] [place] [address] INR ISTAT 1.00 (Normal) Comments: Critical Value > 3.5 0-Amz-915343:03 Prothrombin Time Fingerstick Comments: [place] [address] [place] [address] PROTIME ISTAT 12.1 {SEC} (Normal) Range: 11.9-14.4 Comments: Reference Range 11.9 - 14.4 47-Vqd-180106:55 Prothrombin Time w/INR Comments: [place] [address] [place], [address] INR 2.6 (Normal) PROTIME 26.7 s (Abnormal) Range: 11.7-14.9 :44 GRETTA CULTURE-OTHER (09125) Comments: PATIENT NOT FASTINGPERFORMED BY: [facility]At[facility] [id number] Information: THROAT SRC:TH Result 1 RRF (Normal) Comments: Routine respiratory rajwinder Upper Respiratory Culture Final report (Normal) 37-Abr-365081:31 Rapid Flu (72227 x 2) Influenza A Ag negative (Normal) 74-Tmv-315819:31 Rapid Strep Test, Office (19222) Rapid Strep Test, Office Negative (Normal) 56-Xdc-105532:46 Microscopic Examination Comments: PATIENT NOT FASTINGPERFORMED BY: Bondora (by isePankur)6370 [facility]At[facility] [id number] Bacteria Few (Normal) Mucus Threads Present (Normal) Crystal Type Calcium Oxalate (Normal) Crystals Present (Abnormal) Epithelial Cells (non renal) 0-10 {/hpf} (Normal) Range: 0 - 10 RBC 0-2 {/hpf} (Normal) Range: 0 - 2 WBC 0-5 {/hpf} (Normal) Range: 0 - 5 35-Sid-339863:46 URINALYSIS (44954) Comments: PATIENT NOT FASTINGPERFORMED BY: Polyplus-[facility]fectionTr[facility] Hospital6370 [facility] [id number] Microscopic Examination See below: (Normal) Comments: Microscopic was indicated and was performed. Nitrite, Urine Negative (Normal) Urobilinogen,Semi-Qn 1.0 mg/dL (Normal) Range: 0.2-1.0 Bilirubin Negative (Normal) Occult Blood Negative (Normal) Ketones Negative (Normal) Glucose Negative (Normal) Protein Negative (Normal) WBC Esterase 1+ (Abnormal) Appearance Clear (Normal) Urine-Color Yellow (Normal) pH 6.0 (Normal) Range: 5.0-7.5 Specific [place] 1.018 (Normal) Range: 1.005-1.030 :46 CBC WITH MANUAL DIFF (24789) Comments: PATIENT NOT FASTINGPERFORMED BY: RentifyHoly Name Medical CenterIycgqz6180 [facility] [id number] Immature Grans (Abs) 0.0 {x10E3/uL} (Normal) Range: 0.0-0.1 Immature Granulocytes 0 % (Normal) Baso (Absolute) 0.0 {x10E3/uL} (Normal) Range: 0.0-0.2 Eos (Absolute) 0.1 {x10E3/uL} (Normal) Range: 0.0-0.4 Monocytes(Absolute) 0.4 {x10E3/uL} (Normal) Range: 0.1-0.9 Lymphs (Absolute) 1.8 {x10E3/uL} (Normal) Range: 0.7-3.1 Neutrophils (Absolute) 2.2 {x10E3/uL} (Normal) Range: 1.4-7.0 Basos 0 % (Normal) Eos 3 % (Normal) Monocytes 8 % (Normal) Lymphs 40 % (Normal) Neutrophils 49 % (Normal) Platelets 368 {x10E3/uL} (Normal) Range: 150-379 RDW 15.5 % (Abnormal) Range: 12.3-15.4 MCHC 32.5 g/dL (Normal) Range: 31.5-35.7 MCH 26.9 pg (Normal) Range: 26.6-33.0 MCV 83 fL (Normal) Range: 79-97 Hematocrit 35.7 % (Normal) Range: 34.0-46.6 Hemoglobin 11.6 g/dL (Normal) Range: 11.1-15.9 RBC 4.31 {x10E6/uL} (Normal) Range: 3.77-5.28 WBC 4.5 {x10E3/uL} (Normal) Range: 3.4-10.8 59-Ylt-024167:46 Ferritin (70762) Comments: PATIENT NOT FASTINGPERFORMED BY: Hapara6370 [facility] [id number] Ferritin, Serum 10 ng/mL (Abnormal) Range: 15-150 08-Pnn-605502:46 Metabolic Panel, Comprehensive Comments: PATIENT NOT FASTINGPERFORMED BY: Hapara6370 [facility] [id number] (35438) ALT (SGPT) 18 [iU]/L (Normal) Range: 0-32 AST (SGOT) 19 [iU]/L (Normal) Range: 0-40 Alkaline Phosphatase, S 92 [iU]/L (Normal) Range: 39-117 Bilirubin, Total 0.2 mg/dL (Normal) Range: 0.0-1.2 A/G Ratio 2.0 (Normal) Range: 1.1-2.5 Globulin, Total 2.2 g/dL (Normal) Range: 1.5-4.5 Albumin, Serum 4.5 g/dL (Normal) Range: 3.6-4.8 Protein, Total, Serum 6.7 g/dL (Normal) Range: 6.0-8.5 Calcium, Serum 9.5 mg/dL (Normal) Range: 8.7-10.3 Carbon Dioxide, Total 23 mmol/L (Normal) Range: 18-29 Chloride, Serum 96 mmol/L (Normal) Range: 96-106 Potassium, Serum 5.1 mmol/L (Normal) Range: 3.5-5.2 Sodium, Serum 138 mmol/L (Normal) Range: 134-144 BUN/Creatinine Ratio 16 (Normal) Range: 11-26 eGFR If Africn Am 99 mL/min/1.73 (Normal) eGFR If NonAfricn Am 86 mL/min/1.73 (Normal) Creatinine, Serum 0.76 mg/dL (Normal) Range: 0.57-1.00 BUN 12 mg/dL (Normal) Range: 8-27 Glucose, Serum 86 mg/dL (Normal) Range: 65-99 99-Bxd-674434:46 AMYLASE (48088) Comments: PATIENT NOT FASTINGPERFORMED BY: LabCoHoly Name Medical CenterMyacnw7094 [facility] [id number] Amylase, Serum 81 U/L (Normal) Range: 31-124 97-Eow-092076:46 LIPASE (34993) Comments: PATIENT NOT FASTINGPERFORMED BY: [facility] Dltbvh3573 [facility] [id number] Lipase, Serum 79 U/L (Abnormal) Range: 0-59 82-Ygd-999373:33 Prothrombin Time w/INR Comments: Order Date: 03/23/16Order Date: 03/23/16Interface Comments: Reason:Order Date: 03/23/16[facility] [address] [place], [place], [address] INR 2.0 (Normal) PROTIME 22.3 s (Abnormal) Range: 11.7-14.9 :36 Prothrombin Time w/INR Comments: [facility] [address] [place], [place], [id number] INR 1.4 (Normal) PROTIME 17.1 s (Abnormal) Range: 11.7-14.9 99-Coy-603704:20 Prothrombin Time w/INR Comments: Order Date: 05/11/16Order Info: 6301-6 - *PT/INR - Standing OrderComments: Standing Order-Reason:Order Date: 05/11/16Order Info: 6301-6 - *PT/INR - Standing OrderComments: Standing Order- Reason:[facility] [address] [place], [place], [address] INR 1.2 (Normal) PROTIME 14.8 s (Normal) Range: 11.7-14.9 :50 Prothrombin Time w/INR Comments: Order Date: 05/11/16Order Info: 6301-6 - *PT/INR - Standing OrderComments: Standing Order-Reason:Order Date: 05/11/16Order Info: 6301-6 - *PT/INR - Standing OrderComments: Standing Order-Reason:Order Da te: 05/11/16Order Info: 6301-6 - *PT/INR - Standing OrderComments: Standing Order-Reason:[facility] [address] [place], [address] INR 1.2 (Normal) PROTIME 15.1 s (Abnormal) Range: 11.7-14.9 :00 Culture, Nose Comments: [facility] [address] [place], [address] CUN See Note (Normal) Comments: Comments: NARESGram StainGram Stain Rare White Blood Cells 1+ Epithelial cells 4+ Gram positive rods Nasoph. CultNo Haemophilus, Streptococcus pneumoniae, beta-hemolytic Streptococcus or Staphylococcus aureus isolated. :00 Culture, Throat Comments: [facility] [address] [place], [address] CUT See Note (Normal) Comments: Comments: NARESCulture, ThroatNo Haemophilus, Streptococcus pneumoniae, beta-hemolytic Streptococcus or Staphylococcus aureus isolated. 58-Yld-540553:05 Rapid Flu (69963 x 2) Influenza A Ag neg (Normal) :45 CBC W/Diff, Automated Comments: Order Date: 03/18/16Order Date: 03/18/16WL[facility] [address] [place], [address] Absolute Lymph 2.95 {X10_3/ul} (Normal) Range: 0.83-4.51 Absolute Neut 3.8 {X10_3/uL} (Normal) Range: 2.0-7.7 IM GRAN % 0.100 % (Normal) Range: 0.0-0.9 Comments: IG% - Immature Granulocytes (promyelocytes, myelocytes andmetamyelocytes) > 1% indicates that a LEFT SHIFT is Present. BASO% 0.1 % (Normal) Range: 0-1 EO% 3.4 % (Normal) Range: 0-5 MONO% 8.7 % (Normal) Range: 0-10 LY% 38.4 % (Normal) Range: 19-41 NEUT% 49.3 % (Normal) Range: 47-70 MPV 9.5 fL (Normal) Range: 6.2-12.0 PLT 327 K/mm3 (Normal) Range: 150-450 RDW SD 44.5 fL (Abnormal) Range: 35.1-43.9 RDW CV 13.9 % (Normal) Range: 11.6-14.6 MCHC 33.4 {g/gl} (Normal) Range: 32-36 MCH 29.3 pg (Normal) Range: 27.0-32.0 MCV 87.6 fL (Normal) Range: 81-99 HCT 38.0 % (Normal) Range: 37-47 HGB 12.7 g/dL (Normal) Range: 12.0-15.0 RBC 4.34 {M/mm3} (Normal) Range: 4.2-5.4 WBC 7.7 K/mm3 (Normal) Range: 4.4-11.0 :45 CK-MB Quantitative and Index Comments: Order Date: 03/18/16TROP ADDED 03/19/16Order Date: 03/18/16'TROP' Serial specimen #1, #2, #3, or #4: 1'CKMB' Serial Specimen #1, #2 or #3? 1[facility] [address] [place] [address], [id number] CKRI 3.2 % (Abnormal) Range: 0.0-1.4 Comments: RELATIVE INDEX >1.5% IS PRESUMPTIVELY POSITIVE CPKMB 1.8 ng/mL (Normal) Range: 0.0-5.0 Comments: CK-MB and RI Interpretation MB Relative Index Non-AMI <or= 5 NA Indeterminate > 5 <or= 4 AMI > 5 > 4 CPK TOTAL 57 U/L (Normal) Range: 26-192 :45 Erythrocyte Sed Rate Comments: Order Date: 03/18/16Order Date: 03/18/16[facility] [address] [place] [address], [address] SED RATE 1 mm/h (Normal) Range: 0-30 :45 Myoglobin, Serum Comments: Order Date: 03/18/16[facility] (refer to report for specific site)refer to report for address and phone number Myoglobin, Ser 23 ng/mL (Abnormal) Range: 25-58 Comments: Performed at: - [facility] [address] [id number] Director: Neo Campos PhD, Phone: [phone] 93-Tny-468521:45 Troponin-I Comments: Order Date: 03/18/16TROP ADDED 03/19/16Order Date: 03/18/16'TROP' Serial specimen #1, #2, #3, or #4: 1'CKMB' Serial Specimen #1, #2 or #3? [address] [place] [address] S[address]39 [facility], [address] TROPONIN-I < 0.02 ng/mL (Normal) Comments: TROPONIN-I EXPECTED VALUES <0.05 NEGATIVE 0.06 - 0.59 AT RISK OF GA > OR = 0.60 SUGGEST GA 59-Nlp-896362:00 Basic Metabolic Profile (BMP) Comments: 'TROP' Serial specimen #1, #2, #3, or #4: [address] [place] [address] [address] [place], [place], [address] GAP 6 (Normal) Range: 5-15 CO2 26.0 mmol/L (Normal) Range: 21.0-32.0 CL 99 mmol/L (Normal) Range: 98-107 K 3.9 mmol/L (Normal) Range: 3.5-5.1 NA 131 mmol/L (Abnormal) Range: 136-145 CA 8.4 mg/dL (Abnormal) Range: 8.5-10.1 BUN/CRE 12.5 {RATIO} (Normal) Range: 10-20 Estimated CRCL 92.17 ml/min (Normal) EST GFR - AA 94 mL/min (Normal) Comments: GFR Calc EST GFR 78 mL/min (Normal) Comments: Non- GFR Calc CREAT,SERUM 0.80 mg/dL (Normal) Range: 0.55-1.20 Comments: The validity of the calculated GFR AND GFRAA in patients over70 years has not been determined. Clinical correlation isessential. BUN 10 mg/dL (Normal) Range: 7-18 GLU 101 mg/dL (Normal) Range: 70-110 70-Xow-979880:00 CBC W/Diff, Automated Comments: [facility] [address] [place], [place], [id number] Absolute Lymph 2.27 {X10_3/ul} (Normal) Range: 0.83-4.51 Absolute Neut 2.2 {X10_3/uL} (Normal) Range: 2.0-7.7 IM GRAN % 0.200 % (Normal) Range: 0.0-0.9 Comments: IG% - Immature Granulocytes (promyelocytes, myelocytes andmetamyelocytes) > 1% indicates that a LEFT SHIFT is Present. BASO% 0.2 % (Normal) Range: 0-1 EO% 2.0 % (Normal) Range: 0-5 MONO% 6.9 % (Normal) Range: 0-10 LY% 46.1 % (Abnormal) Range: 19-41 NEUT% 44.6 % (Abnormal) Range: 47-70 MPV 9.2 fL (Normal) Range: 6.2-12.0 PLT 228 K/mm3 (Normal) Range: 150-450 RDW SD 43.6 fL (Normal) Range: 35.1-43.9 RDW CV 13.8 % (Normal) Range: 11.6-14.6 MCHC 34.6 {g/gl} (Normal) Range: 32-36 MCH 29.9 pg (Normal) Range: 27.0-32.0 MCV 86.6 fL (Normal) Range: 81-99 HCT 32.4 % (Abnormal) Range: 37-47 HGB 11.2 g/dL (Abnormal) Range: 12.0-15.0 RBC 3.74 {M/mm3} (Abnormal) Range: 4.2-5.4 WBC 4.9 K/mm3 (Normal) Range: 4.4-11.0 73-Hyx-009565:00 Lipase Comments: 'TROP' Serial specimen #1, #2, #3, or #4: 1[facility] [address] [place], [address] LIPASE 351 U/L (Normal) Range: 73-393 71-Hpl-097255:00 Liver Profile Comments: 'TROP' Serial specimen #1, #2, #3, or #4: [address] [place] [address] [place], [address] D BILI 0.15 mg/dL (Normal) Range: 0.00-0.30 T BILI 0.30 mg/dL (Normal) Range: 0.20-1.00 ALT 23 U/L (Normal) Range: 12-78 ALK P 81 U/L (Normal) Range: 50-136 AST 24 U/L (Normal) Range: 15-37 GLOB 2.8 g/dL (Normal) Range: 2.3-3.5 ALB 4.0 g/dL (Normal) Range: 3.4-5.0 T PROT 6.8 g/dL (Normal) Range: 6.4-8.2 21-Nux-551421:00 Troponin-I Comments: 'TROP' Serial specimen #1, #2, #3, or #4: [address] [place] [address] [address] [place], [address] TROPONIN-I < 0.02 ng/mL (Normal) Comments: TROPONIN-I EXPECTED VALUES <0.05 NEGATIVE 0.06 - 0.59 AT RISK OF GA > OR = 0.60 SUGGEST GA 64-Ktn-035696:08 Osmolality, Urine Comments: Order Date: 02/16/16Has pt arrived? [place] [address] [place], [place], [address] OSMOLALITY,UR 310 {mOsm/KG} (Normal) Comments: OSMOLALITY URINE REFERENCE INTERVALS 24-hour Urine 300 - 900 mOsm/kg Random Urine 50 - 1400 mOsm/kg After 12 Hr fluid restriction >850 mOsm/kg 56-Mta-716349:50 Amylase Comments: [place] [address] [place], [place], [id number] PREMA 80 U/L (Normal) Range: 25-115 77-Zze-534431:50 CBC W/Diff, Automated Comments: [address] [place], [address] Absolute Lymph 1.51 {X10_3/ul} (Normal) Range: 0.83-4.51 Absolute Neut 2.5 {X10_3/uL} (Normal) Range: 2.0-7.7 IM GRAN % 0.200 % (Normal) Range: 0.0-0.9 Comments: IG% - Immature Granulocytes (promyelocytes, myelocytes andmetamyelocytes) > 1% indicates that a LEFT SHIFT is Present. BASO% 0.2 % (Normal) Range: 0-1 EO% 0.9 % (Normal) Range: 0-5 MONO% 7.2 % (Normal) Range: 0-10 LY% 34.9 % (Normal) Range: 19-41 NEUT% 56.6 % (Normal) Range: 47-70 MPV 10.3 fL (Normal) Range: 6.2-12.0 PLT 230 K/mm3 (Normal) Range: 150-450 RDW SD 43.0 fL (Normal) Range: 35.1-43.9 RDW CV 13.7 % (Normal) Range: 11.6-14.6 MCHC 34.3 {g/gl} (Normal) Range: 32-36 MCH 30.1 pg (Normal) Range: 27.0-32.0 MCV 87.8 fL (Normal) Range: 81-99 HCT 35.3 % (Abnormal) Range: 37-47 HGB 12.1 g/dL (Normal) Range: 12.0-15.0 RBC 4.02 {M/mm3} (Abnormal) Range: 4.2-5.4 WBC 4.3 K/mm3 (Abnormal) Range: 4.4-11.0 39-Hch-098820:50 Comprehensive Metabolic Profil Comments: [facility] [address] [place], [address] GAP 6 (Normal) Range: 5-15 CO2 28.0 mmol/L (Normal) Range: 21.0-32.0 CL 100 mmol/L (Normal) Range: 98-107 K 4.1 mmol/L (Normal) Range: 3.5-5.1 NA 134 mmol/L (Abnormal) Range: 136-145 T BILI 0.30 mg/dL (Normal) Range: 0.20-1.00 ALT 23 U/L (Normal) Range: 12-78 ALK P 86 U/L (Normal) Range: 50-136 AST 25 U/L (Normal) Range: 15-37 CA 8.5 mg/dL (Normal) Range: 8.5-10.1 A/G 1.4 {RATIO} (Normal) Range: 0.9-2.4 GLOB 2.9 g/dL (Normal) Range: 2.3-3.5 ALB 4.0 g/dL (Normal) Range: 3.4-5.0 T PROT 6.9 g/dL (Normal) Range: 6.4-8.2 BUN/CRE 12.7 {RATIO} (Normal) Range: 10-20 Estimated CRCL 95.53 ml/min (Normal) EST GFR - AA 96 mL/min (Normal) Comments: GFR Calc EST GFR 79 mL/min (Normal) Comments: Non- GFR Calc CREAT,SERUM 0.79 mg/dL (Normal) Range: 0.55-1.20 Comments: The validity of the calculated GFR AND GFRAA in patients over70 years has not been determined. Clinical correlation isessential. BUN 10 mg/dL (Normal) Range: 7-18 GLU 98 mg/dL (Normal) Range: 70-110 85-Soe-410499:50 Lipase Comments: [address] [place], [id number] LIPASE 424 U/L (Abnormal) Range: 73-393 68-Ggb-579207:50 Osmolality, Serum Comments: [address] [place], [id number] OSMOLALITY,SER 275 {mOsm/KG} (Normal) Range: 275-295 18-Ilc-901767:50 Vitamin B12 489 pg/mL (Normal) Comments: [address] [place], [address] ; will review on 02/19 Range: 211-911 01-Ulv-495645:50 Vitamin D,25 Hydroxy Comments: [address]ario[address] [place], [id number] Vitamin D 25-OH 37.6 ng/mL (Normal) Comments: Vitamin D 25(OH) Status Range Deficiency <20 ng/mL (50nmol/L) Insuffciency 20 - 30 ng/mL (50 - 75 nmol/L) Sufficiency 30 - 100 ng/mL (75 - 250 nmol/L) Toxicity >100 ng/mL (>250 nmol/L) 05-Cze-93656:00 Ferritin Comments: [facility] [address] [place], [address] FERRITIN 13 ng/mL (Normal) Range: 8-252 :00 Lipid Profile Comments: [facility] [address] [place], [address] VLDL 28 mg/dL (Normal) Range: 5-40 LDL 81 mg/dL (Normal) Range: 0-130 HDL 68 mg/dL (Normal) Comments: The drugs N-Acetylcysteine and Metamizole may falsely deressthis assay. Reference Range HDL <40 mg/dL Low HDL Cholesterol HDL >or= 60 mg/dL High HDL Cholesterol TRIG 142 mg/dL (Normal) Comments: The drugs N-Acetylcysteine and Metamizole may falsely deressthis assay.Serum Triglycerides Reference Interval Normal <150 mg/dL Borderline high 150 - 199 mg/dL High 200 - 499 mg/dL Very High > or = 500 mg/dL CHOL 177 mg/dL (Normal) Comments: <200 mg/dL Desirable 200-240 mg/dL Borderline >240 mg/dL High Risk 9-Dds-860289:40 CBC W/Diff, Automated Comments: Order Date: 09/08/15Has pt arrived? [facility] [address] [place], [address] Absolute Lymph 1.80 {X10_3/ul} (Normal) Range: 0.83-4.51 Absolute Neut 2.3 {X10_3/uL} (Normal) Range: 2.0-7.7 IM GRAN % 0.200 % (Normal) Range: 0.0-0.9 Comments: IG% - Immature Granulocytes (promyelocytes, myelocytes andmetamyelocytes) > 1% indicates that a LEFT SHIFT is Present. BASO% 0.2 % (Normal) Range: 0-1 EO% 0.5 % (Normal) Range: 0-5 MONO% 7.4 % (Normal) Range: 0-10 LY% 40.6 % (Normal) Range: 19-41 NEUT% 51.1 % (Normal) Range: 47-70 MPV 9.7 fL (Normal) Range: 6.2-12.0 PLT 284 K/mm3 (Normal) Range: 150-450 RDW SD 43.0 fL (Normal) Range: 35.1-43.9 RDW CV 13.6 % (Normal) Range: 11.6-14.6 MCHC 34.8 {g/gl} (Normal) Range: 32-36 MCH 30.6 pg (Normal) Range: 27.0-32.0 MCV 88.0 fL (Normal) Range: 81-99 HCT 34.5 % (Abnormal) Range: 37-47 HGB 12.0 g/dL (Normal) Range: 12.0-15.0 RBC 3.92 {M/mm3} (Abnormal) Range: 4.2-5.4 WBC 4.4 K/mm3 (Normal) Range: 4.4-11.0 6-Hfw-817231:40 Comprehensive Metabolic Profil Comments: Order Date: 09/08/15Has pt arrived? [facility] [address] [place], [address] GAP -1 (Abnormal) Range: 5-15 CO2 30.0 mmol/L (Normal) Range: 21.0-32.0 CL 102 mmol/L (Normal) Range: 98-107 K 4.2 mmol/L (Normal) Range: 3.5-5.1 NA 131 mmol/L (Abnormal) Range: 136-145 T BILI 0.40 mg/dL (Normal) Range: 0.20-1.00 ALT 22 U/L (Normal) Range: 12-78 ALK P 82 U/L (Normal) Range: 50-136 AST 21 U/L (Normal) Range: 15-37 CA 8.6 mg/dL (Normal) Range: 8.5-10.1 A/G 1.4 {RATIO} (Normal) Range: 0.9-2.4 GLOB 2.9 g/dL (Normal) Range: 2.3-3.5 ALB 4.0 g/dL (Normal) Range: 3.4-5.0 T PROT 6.9 g/dL (Normal) Range: 6.4-8.2 BUN/CRE 14.4 {RATIO} (Normal) Range: 10-20 EST GFR - AA 99 mL/min (Normal) Comments: GFR Calc EST GFR 82 mL/min (Normal) Comments: Non- GFR Calc CREAT,SERUM 0.76 mg/dL (Normal) Range: 0.55-1.20 Comments: The validity of the calculated GFR AND GFRAA in patients over70 years has not been determined. Clinical correlation isessential. BUN 11 mg/dL (Normal) Range: 7-18 GLU 97 mg/dL (Normal) Range: 70-110 8-Cwh-235825:16 Amylase Comments: [facility] [address]rg[address] [facility], [address] PREMA 95 U/L (Normal) Range: 25-115 0-Lir-956649:16 Lipase Comments: [facility] [address] [facility], [address] LIPASE 568 U/L (Abnormal) Range: 73-393 7-Yog-893270:29 Influenza A&B Viral Comments: PATIENT NOT FASTINGPERFORMED BY: [employer] [id number] Information: SRC:NOS [id number] Culture (54871) Viral Culture,Rapid,Influenza FLUABN (Normal) Comments: Negative:No Influenza A or B detected. 6-Adl-820156:49 Rapid Flu (77129 x 2) Influenza A Ag neg (Normal) 14-Rcy-287416:01 CBC (Auto) (80602) Comments: now and in six months (approximately); PATIENT WAS FASTINGPERFORMED BY: [employer]-transfection[address] [id number] Information: [id number], [id number] Platelets 357 {x10E3/uL} (Normal) Range: 150-379 RDW 14.6 % (Normal) Range: 12.3-15.4 MCHC 34.1 g/dL (Normal) Range: 31.5-35.7 MCH 29.8 pg (Normal) Range: 26.6-33.0 MCV 88 fL (Normal) Range: 79-97 Hematocrit 37.0 % (Normal) Range: 34.0-46.6 Hemoglobin 12.6 g/dL (Normal) Range: 11.1-15.9 RBC 4.23 {x10E6/uL} (Normal) Range: 3.77-5.28 WBC 5.7 {x10E3/uL} (Normal) Range: 3.4-10.8 89-Wls-124156:01 Metabolic Panel, Basic Comments: now; PATIENT WAS FASTINGPERFORMED BY: [employer] [facility] [place] [id number] ([id number]) Calcium, Serum 9.1 mg/dL (Normal) Range: 8.7-10.2 Carbon Dioxide, Total 25 mmol/L (Normal) Range: 18-29 Chloride, Serum 95 mmol/L (Abnormal) Range: 97-108 Potassium, Serum 5.1 mmol/L (Normal) Range: 3.5-5.2 Sodium, Serum 133 mmol/L (Abnormal) Range: 134-144 BUN/Creatinine Ratio 17 (Normal) Range: 9-23 eGFR If Africn Am 82 mL/min/1.73 (Normal) eGFR If NonAfricn Am 71 mL/min/1.73 (Normal) Creatinine, Serum 0.89 mg/dL (Normal) Range: 0.57-1.00 BUN 15 mg/dL (Normal) Range: 6-24 Glucose, Serum 102 mg/dL (Abnormal) Range: 65-99 65-Sup-644201:01 CALCIFIDIOL (87979) VIT D 25 Comments: now and in six months (approximately); PATIENT WAS FASTINGPERFORMED BY: [employer] [id number] [facility] [place] [id number] Vitamin D, 25-Hydroxy 32.8 ng/mL (Normal) Range: 30.0-100.0 Comments: Vitamin D deficiency has been defined by the [place] [employer] and an Endocrine Society practice guideline as alevel of serum 25-OH vitamin D less than 20 ng/mL (1,2).The Endocrine Society went on to further define vitamin Dinsufficiency as a level between 21 and 29 ng/mL (2).1. IOM ([place] [employer]). 2010. Dietary reference intakes for calcium and D. [place]: The National Academies Press.2. Candelaria MF, Janey ELIAS, Yolande GROSS, et al. Evaluation, treatment, and prevention of vitamin D deficiency: an Endocrine Society clinical practice guideline. JCEM. 2010; 96(7):1911-30. 0-Lep-049377:06 Sputum Culture (27431) Comments: PATIENT NOT FASTINGPERFORMED BY: [facility] Dzijqt8501 [facility] [id number] Information: [id number] Result 1 RRF (Normal) Comments: Routine respiratory rajwinder Lower Respiratory Culture Final report (Normal) 5-Dqj-002914:12 Rapid Flu (45553 x 2) Influenza A Ag neg a and b (Normal) 52-Pmr-073353:01 Urinalysis, Office (06671) UA - LEUKOCYTE ESTERASE Negative (Normal) UA - NITRITE Negative (Normal) URINE UROBILINGN YANCI TIMED Normal mg/dL (Normal) UA - PROTEIN Negative mg/dL (Normal) UA - PH 6.0 (Normal) Comments: 5.5 UA - BLOOD Negative (Normal) UA - SPECIFIC GRAVITY 1.025 (Normal) UA - KETONES Negative mg/dL (Normal) UA - BILIRUBIN Negative (Normal) UA - GLUCOSE Negative (Normal) [id number]-Lwu-[id number]:40 Lipase (71411) Comments: PATIENT NOT FASTINGPERFORMED BY: [facility] Poenge6883 [facility] [id number] Lipase, Serum 113 U/L (Abnormal) Range: 0-59 22-Oed-501480:40 Amylase (02539) Comments: PATIENT NOT FASTINGPERFORMED BY: [facility] Bgpxdz7677 [facility] [id number] Information: [id number] Amylase, Serum 104 U/L (Normal) Range: 31-124 9-Irc-119475:54 Sputum Culture (13086) Comments: PATIENT NOT FASTINGPERFORMED BY: [facility] Fbvgyp8138 [facility] [id number] Information: SRC: THROAT [id number] Result 1 RRF (Normal) Comments: Routine respiratory rajwinder Lower Respiratory Culture Final report (Normal) 4-Jki-178302:55 Pathology Report Comments: PERFORMED BY: KWCYT [facility] [place] Cyto Ohnza26256 Interchange [facility] [id number] BY: [facility] Dermatopathology Pjovmde369 [address] [id number] Information: [id number] See MATER Comments: Material submitted: .PUNCH BIOPSY VULVAClinician provided ICD-9:239.5 ; Neoplasm of unspecified nature of other genitourinary organsClinical history: Note (Normal) .UNILATERAL LABIA ITCHY RED RASH TO THAT AREA NO RESPOND TO STEROIDSDiagnosis:PSORIASIFORM AND SPONGIOTI C DERMATITIS, SEE COMMENT BELOW..COMMENT:THE HISTOPATHOLOGIC PATTERN NOTED IS NOT DIAGNOSTIC OF A SPECIFICENTITY. THIS PATTERN MAY BE SEEN WITH AN IMPETIGINIZED SUBACUTETO CHRONIC ECZEMATOUS DERMATITIS WITH INTERCURRENT FOLLICULITIS.AN IRRITANT DERMATITIS WOULD ALSO ENTER THE DIFFERENTIALDIAGNOSIS WITH THE PRESENCE OF EROSIVE CHANGES AND INTRAEPIDERMALNEUTROPHILS. AN EXCORIATED PARTIALLY TREATED LESIO N OF PSORIASISCANNOT BE EXCLUDED BUT IS SOMEWHAT LESS FAVORED. I DO NOTAPPRECIATE EVIDENCE OF SQUAMOUS DYSPLASIA OR MALIGNANCY IN THISMATERIAL. RECOMMEND CORRELATION WITH CLINICAL FINDINGS FORFURTHER DI AGNOSTIC CLASSIFICATION.TERI/02/05/2015Electronically signed: .Aliya Dominguez MD, Dermatopatholog istGross description: .RECEIVED IN FORMALIN LABELED JOSE J COBIAN WITH NO DESIGNATION ONTHE CONTAINER DESIGNATED VULVA ON THE REQUISITION IS A HERNANDEZ/YELLOWPUNCH BIOP SY MEASURING 0.4 X 0.3 CM EXCISED TO A DEPTH OF 0.4 CM.THE MARGIN IS MARKED WITH BLACK INK. IT IS BISECTED AND SUBMITTEDENTIRELY IN A SINGLE CASSETTE.LMS/CRYMicroscopic: .SECTIONS OF SKIN DEMONSTRATE IRREGULAR PSORIASIFORM ACANTHOSISAND SPONGIOSIS WITH HYPERKERATOSIS, PARAKERATOSIS AND FOCALEROSION. INTRAEPIDERMAL NEUTROPHILS ARE SEEN IN THE UPPER SPI NOUSAND CORNIFIED LAYERS. THERE IS SOME PROMINENCE OF PAPILLARYDERMAL VESSELS WITH THINNING OF SUPRAPAPILLARY PLATES. APERIVASCULAR AND INTERSTITIAL INFILTRATE COMPOSED OF LYMPHOCYTES,HISTIOCYTES, NEUTR OPHILS AND EOSINOPHILS IS NOTED WITHIN THEDERMIS. INTRACORNEAL BACTERIAL COLONIES ARE FOCALLY APPRECIATED.PAS STAIN IS NEGATIVE FOR FUNGAL FORMS.Pathologist provided ICD-9:692.9CPT .897177, 601810 64-Lne-239831:41 Lipid Panel (28486) Comments: PATIENT WAS FASTINGPERFORMED BY: [facility]CoHoly Name Medical CenterTxzufi2834 [facility] [id number] LDL/HDL Ratio 1.0 {ratio_units} (Normal) Range: 0.0-3.2 Comments: LDL/HDL Ratio Men Women 1/2 Avg.Risk 1.0 1.5 Av g.Risk 3.6 3.2 2X Avg.Risk 6.2 5.0 3X Avg.Risk 8.0 6.1 LDL Cholesterol Calc 73 mg/dL (Normal) Range: 0-99 Comments: Effective April 28, 2015 the reference interval for LDL Cholesterol Calc will be changing to: 0 - 19 years 0 - 109 >19 years 0 - 99 VLDL Cholesterol Wandy 17 mg/dL (Normal) Range: 5-40 HDL Cholesterol 72 mg/dL (Normal) Comments: According to ATP-III Guidelines, HDL-C >59 mg/dL is considered anegative risk factor for CHD. Triglycerides 84 mg/dL (Normal) Range: 0-149 Comments: Effective April 28, 2015 the reference interval for Triglycerides will be changing to: 0 - 9 years 0 - 74 10 - 19 years 0 - 89 >19 years 0 - 149 Cholesterol, Total 162 mg/dL (Normal) Range: 100-199 Comments: Effective April 28, 2015 the reference interval for Cholesterol, Total will be changing to: 0 - 19 years 100 - 169 >19 years 100 - 199 03-Yrb-331573:41 Metabolic Panel, Comments: PATIENT WAS FASTINGPERFORMED BY: [facility]ifyAl[facility] Regional HospitalYptavl9664 [facility] [id number] Information: [id number] [facility] (83945) ALT (SGPT) 13 [iU]/L (Normal) Range: 0-32 AST (SGOT) 21 [iU]/L (Normal) Range: 0-40 Alkaline Phosphatase, S 93 [iU]/L (Normal) Range: 39-117 Bilirubin, Total 0.3 mg/dL (Normal) Range: 0.0-1.2 A/G Ratio 2.3 (Normal) Range: 1.1-2.5 Globulin, Total 1.9 g/dL (Normal) Range: 1.5-4.5 Albumin, Serum 4.4 g/dL (Normal) Range: 3.5-5.5 Protein, Total, Serum 6.3 g/dL (Normal) Range: 6.0-8.5 Calcium, Serum 9.4 mg/dL (Normal) Range: 8.7-10.2 Carbon Dioxide, Total 26 mmol/L (Normal) Range: 18-29 Chloride, Serum 93 mmol/L (Abnormal) Range: 97-108 Potassium, Serum 4.9 mmol/L (Normal) Range: 3.5-5.2 Sodium, Serum 133 mmol/L (Abnormal) Range: 134-144 BUN/Creatinine Ratio 18 (Normal) Range: 9-23 eGFR If Africn Am 98 mL/min/1.73 (Normal) eGFR If NonAfricn Am 85 mL/min/1.73 (Normal) Creatinine, Serum 0.77 mg/dL (Normal) Range: 0.57-1.00 BUN 14 mg/dL (Normal) Range: 6-24 Glucose, Serum 97 mg/dL (Normal) Range: 65-99 77-Xud-717436:41 Vitamin B-12 (cyanocobalamin) Comments: PATIENT WAS FASTINGPERFORMED BY: [facility]ifyHoly Name Medical CenterFdhmsr1340 [facility] [id number] (33217) Vitamin B12 632 pg/mL (Normal) Range: 211-946 00-Yos-595263:41 CBC (Auto) (71998) Comments: PATIENT WAS FASTINGPERFORMED BY: [employer] Mxqydp3311 [facility] [id number] Platelets 270 {x10E3/uL} (Normal) Range: 150-379 RDW 13.9 % (Normal) Range: 12.3-15.4 MCHC 32.8 g/dL (Normal) Range: 31.5-35.7 MCH 29.5 pg (Normal) Range: 26.6-33.0 MCV 90 fL (Normal) Range: 79-97 Hematocrit 36.6 % (Normal) Range: 34.0-46.6 Hemoglobin 12.0 g/dL (Normal) Range: 11.1-15.9 RBC 4.07 {x10E6/uL} (Normal) Range: 3.77-5.28 WBC 8.5 {x10E3/uL} (Normal) Range: 3.4-10.8 :41 Ferritin (09485) Comments: PATIENT WAS FASTINGPERFORMED BY: [facility] Ctemew8527 [facility] [id number] Ferritin, Serum 28 ng/mL (Normal) Range: 15-150 :41 CALCIFIDIOL (83859) VIT D 25 Comments: PATIENT WAS FASTINGPERFORMED BY: [facility] Yojjqg9320 [facility] [id number] Vitamin D, 25-Hydroxy 24.3 ng/mL (Abnormal) Range: 30.0-100.0 Comments: Vitamin D deficiency has been defined by the [place] and an Endocrine Society practice guideline as alevel of serum 25-OH vitamin D less than 20 ng/mL (1,2).The Endocrine Society went on to further define vitamin Dinsufficiency as a level between 21 and 29 ng/mL (2).1. IOM ([place] [employer]). 2010. Dietary reference intakes for calcium and D. [place]: The National Academies Press.2. Candelaria MF, Janey ELIAS, Yolande GROSS, et al. Evaluation, treatment, and prevention of vitamin D deficiency: an Endocrine Society clinical practice guideline. JCEM. 2010; 96(7):1911-30. :55 CBC-Complete Blood Cnt No Diff Comments: Test performed at:[facility] [address] [place] [address] MPV 9.5 fL (Normal) Range: 6.2-12.0 PLT 243 K/mm3 (Normal) Range: 150-450 RDW SD 47.7 fL (Abnormal) Range: 35.1-43.9 RDW CV 14.4 % (Normal) Range: 11.6-14.6 MCHC 33.2 {g/gl} (Normal) Range: 32-36 MCH 29.7 pg (Normal) Range: 27.0-32.0 MCV 89.3 fL (Normal) Range: 81-99 HCT 35.2 % (Abnormal) Range: 37-47 HGB 11.7 g/dL (Abnormal) Range: 12.0-15.0 RBC 3.94 {M/mm3} (Abnormal) Range: 4.2-5.4 WBC 5.1 K/mm3 (Normal) Range: 4.4-11.0 76-Nav-509747:55 Ferritin Comments: Test performed at:[facility] [address] [place] [address] 1908[address] FERRITIN 23 ng/mL (Normal) Range: 8-252 00-Aiy-002853:55 Iron Comments: Test performed at:[facility] [address] [place] [address]691 IRON 75 ug/dL (Normal) Range: 50-170 35-Jtu-638392:53 CBC W/Diff, Automated Comments: Test performed at:[facility] [address] [place] [address] [id number] Absolute Lymph 1.57 {X10_3/ul} (Normal) Range: 0.83-4.51 Absolute Neut 1.9 {X10_3/uL} (Abnormal) Range: 2.0-7.7 IM GRAN % 0.000 % (Normal) Range: 0.0-0.9 Comments: IG% - Immature Granulocytes (promyelocytes, myelocytes andmetamyelocytes) > 1% indicates that a LEFT SHIFT is Present. BASO% 0.0 % (Normal) Range: 0-1 EO% 3.1 % (Normal) Range: 0-5 MONO% 7.1 % (Normal) Range: 0-10 LY% 41.1 % (Abnormal) Range: 19-41 NEUT% 48.7 % (Normal) Range: 47-70 MPV 10.0 fL (Normal) Range: 6.2-12.0 PLT 223 K/mm3 (Normal) Range: 150-450 RDW SD 45.9 fL (Abnormal) Range: 35.1-43.9 RDW CV 14.1 % (Normal) Range: 11.6-14.6 MCHC 33.6 {g/gl} (Normal) Range: 32-36 MCH 29.6 pg (Normal) Range: 27.0-32.0 MCV 88.1 fL (Normal) Range: 81-99 HCT 35.4 % (Abnormal) Range: 37-47 HGB 11.9 g/dL (Abnormal) Range: 12.0-15.0 RBC 4.02 {M/mm3} (Abnormal) Range: 4.2-5.4 WBC 3.8 K/mm3 (Abnormal) Range: 4.4-11.0 35-Wmu-868202:53 Comprehensive Metabolic Profil Comments: Test performed at:[facility] [address] [place], [place] [id number] GAP 5 (Normal) Range: 5-15 CO2 29.0 mmol/L (Normal) Range: 21.0-32.0 CL 101 mmol/L (Normal) Range: 98-107 K 4.2 mmol/L (Normal) Range: 3.5-5.1 NA 135 mmol/L (Abnormal) Range: 136-145 T BILI 0.30 mg/dL (Normal) Range: 0.00-4.00 ALT 19 U/L (Normal) Range: 12-78 ALK P 107 U/L (Normal) Range: 50-136 AST 22 U/L (Normal) Range: 15-37 CA 8.5 mg/dL (Normal) Range: 8.5-10.1 A/G 1.4 {RATIO} (Normal) Range: 0.9-2.4 GLOB 2.8 g/dL (Normal) Range: 2.7-4.2 ALB 4.0 g/dL (Normal) Range: 3.4-5.0 T PROT 6.8 g/dL (Normal) Range: 6.4-8.2 BUN/CRE 12.5 {RATIO} (Normal) Range: 10-20 EST GFR - AA 95 mL/min (Normal) EST GFR 78 mL/min (Normal) CREAT,SERUM 0.8 mg/dL (Normal) Range: 0.6-1.0 BUN 10 mg/dL (Normal) Range: 7-18 GLU 99 mg/dL (Normal) Range: 70-110 36-Kns-500372:53 Ferritin Comments: Test performed at:[facility] [address] [place] [address] FERRITIN 13 ng/mL (Normal) Range: 8-252 25-Fde-258289:53 Lipid Profile Comments: Test performed at:[facility] [address] [place] [address] VLDL 19 mg/dL (Normal) Range: 5-40 LDL 69 mg/dL (Normal) Range: 0-130 HDL 67 mg/dL (Normal) Comments: Reference Range HDL <40 mg/dL Low HDL Cholesterol HDL >or= 60 mg/dL High HDL Cholesterol TRIG 95 mg/dL (Normal) Range: 0-199 Comments: Serum Triglycerides Reference Interval Normal <150 mg/dL Borderline high 150 - 199 mg/dL High 200 - 499 mg/dL Very High > or = 500 mg/dL CHOL 155 mg/dL (Normal) Comments: <200 mg/dL Desirable 200-240 mg/dL Borderline >240 mg/dL High Risk 55-Mcl-657631:53 Vitamin B12 > 2000 pg/mL (Abnormal) Comments: Test performed at:[facility] [address] [place] [address] Range: 211-911 20-Irf-356690:46 CBC W/Diff, Automated Comments: Test performed at:[facility] [address] [place] [address] Absolute Lymph 1.87 {X10_3/ul} (Normal) Range: 0.83-4.51 Absolute Neut 1.7 {X10_3/uL} (Abnormal) Range: 2.0-7.7 IM GRAN % 0.200 % (Normal) Range: 0.0-0.9 Comments: IG% - Immature Granulocytes (promyelocytes, myelocytes andmetamyelocytes) > 1% indicates that a LEFT SHIFT is Present. BASO% 0.2 % (Normal) Range: 0-1 EO% 5.8 % (Abnormal) Range: 0-5 MONO% 7.5 % (Normal) Range: 0-10 LY% 45.5 % (Abnormal) Range: 19-41 NEUT% 40.8 % (Abnormal) Range: 47-70 MPV 9.1 fL (Normal) Range: 6.2-12.0 PLT 256 K/mm3 (Normal) Range: 150-450 RDW SD 44.8 fL (Abnormal) Range: 35.1-43.9 RDW CV 14.0 % (Normal) Range: 11.6-14.6 MCHC 33.3 {g/gl} (Normal) Range: 32-36 MCH 29.8 pg (Normal) Range: 27.0-32.0 MCV 89.4 fL (Normal) Range: 81-99 HCT 34.5 % (Abnormal) Range: 37-47 HGB 11.5 g/dL (Abnormal) Range: 12.0-15.0 RBC 3.86 {M/mm3} (Abnormal) Range: 4.2-5.4 WBC 4.1 K/mm3 (Abnormal) Range: 4.4-11.0 99-Rls-566803:46 Comprehensive Metabolic Profil Comments: Test performed at:[facility] [address] [place] [address] GAP 4 (Abnormal) Range: 5-15 CO2 28.0 mmol/L (Normal) Range: 21.0-32.0 CL 103 mmol/L (Normal) Range: 98-107 K 4.3 mmol/L (Normal) Range: 3.5-5.1 NA 135 mmol/L (Abnormal) Range: 136-145 T BILI 0.30 mg/dL (Normal) Range: 0.00-4.00 ALT 19 U/L (Normal) Range: 12-78 ALK P 91 U/L (Normal) Range: 50-136 AST 17 U/L (Normal) Range: 15-37 CA 8.5 mg/dL (Normal) Range: 8.5-10.1 A/G 1.3 {RATIO} (Normal) Range: 0.9-2.4 GLOB 2.8 g/dL (Normal) Range: 2.7-4.2 ALB 3.5 g/dL (Normal) Range: 3.4-5.0 T PROT 6.3 g/dL (Abnormal) Range: 6.4-8.2 BUN/CRE 12.2 {RATIO} (Normal) Range: 10-20 EST GFR - AA 82 mL/min (Normal) EST GFR 68 mL/min (Normal) CREAT,SERUM 0.9 mg/dL (Normal) Range: 0.6-1.0 BUN 11 mg/dL (Normal) Range: 7-18 GLU 70 mg/dL (Normal) Range: 70-110 83-Iwy-833954:46 Vitamin D,25 Hydroxy Comments: Test performed at:[facility] [address] [place] [address] Vitamin D 25-OH 30.6 ng/mL (Normal) Comments: Vitamin D 25(OH) Status Range Deficiency <20 ng/mL (50nmol/L) Insuffciency 20 - 30 ng/mL (50 - 75 nmol/L) Sufficiency 30 - 100 ng/mL (75 - 250 nmol/L) Toxicity >100 ng/mL (>250 nmol/L) 98-Bpp-318949:04 CALCIFIDIOL (92577) VIT D Comments: PATIENT NOT FASTINGPERFORMED BY: [facility] Wtrmmm5798 [facility] [id number] Information: [id number] 25 Vitamin D, 25-Hydroxy 19.2 ng/mL (Abnormal) Range: 30.0-100.0 Comments: Vitamin D deficiency has been defined by the [place] and an Endocrine Society practice guideline as alevel of serum 25-OH vitamin D less than 20 ng/mL (1,2).The Endocrine Society went on to further define vitamin Dinsufficiency as a level between 21 and 29 ng/mL (2).1. IOM ([place] [employer]). 2010. Dietary reference intakes for calcium and D. [place]: The National Academies Press.2. Candelaria MF, Janey [place], Yolande GROSS, et al. Evaluation, treatment, and prevention of vitamin D deficiency: an Endocrine Society clinical practice guideline. JCEM. 2010; 96(7):1911-30. :04 Ferritin (73077) Comments: PATIENT NOT FASTINGPERFORMED BY: MONA RentifyHoly Name Medical CenterAfrmtb1052 [facility] [id number] Ferritin, Serum 34 ng/mL (Normal) Range: 15-150 :05 METABOLIC PANEL, COMPREHENSIVE Comments: PATIENT NOT FASTINGPERFORMED BY: [facility]ifyHoly Name Medical CenterSlkhuf4673 [facility] [id number] (33105) ALT (SGPT) 10 [iU]/L (Normal) Range: 0-32 AST (SGOT) 18 [iU]/L (Normal) Range: 0-40 Alkaline Phosphatase, S 98 [iU]/L (Normal) Range: 39-117 Bilirubin, Total 0.2 mg/dL (Normal) Range: 0.0-1.2 A/G Ratio 2.2 (Normal) Range: 1.1-2.5 Globulin, Total 1.9 g/dL (Normal) Range: 1.5-4.5 Albumin, Serum 4.2 g/dL (Normal) Range: 3.5-5.5 Protein, Total, Serum 6.1 g/dL (Normal) Range: 6.0-8.5 Calcium, Serum 9.2 mg/dL (Normal) Range: 8.7-10.2 Carbon Dioxide, Total 27 mmol/L (Normal) Range: 18-29 Chloride, Serum 95 mmol/L (Abnormal) Range: 97-108 Potassium, Serum 5.2 mmol/L (Normal) Range: 3.5-5.2 Sodium, Serum 135 mmol/L (Normal) Range: 134-144 BUN/Creatinine Ratio 12 (Normal) Range: 9-23 eGFR If Africn Am 100 mL/min/1.73 (Normal) eGFR If NonAfricn Am 87 mL/min/1.73 (Normal) Creatinine, Serum 0.76 mg/dL (Normal) Range: 0.57-1.00 BUN 9 mg/dL (Normal) Range: 6-24 Glucose, Serum 86 mg/dL (Normal) Range: 65-99 58-Dxy-946069:05 CBC WITH MANUAL DIFF Comments: PATIENT NOT FASTINGPERFORMED BY: COMPS.comlin6370 [facility] [id number] Information: [id number],2ND ORDER NO DRAW F EE (92102) Immature Grans (Abs) 0.0 {x10E3/uL} (Normal) Range: 0.0-0.1 Immature Granulocytes 0 % (Normal) Baso (Absolute) 0.0 {x10E3/uL} (Normal) Range: 0.0-0.2 Eos (Absolute) 0.3 {x10E3/uL} (Normal) Range: 0.0-0.4 Monocytes(Absolute) 0.4 {x10E3/uL} (Normal) Range: 0.1-0.9 Lymphs (Absolute) 2.4 {x10E3/uL} (Normal) Range: 0.7-3.1 Neutrophils (Absolute) 2.1 {x10E3/uL} (Normal) Range: 1.4-7.0 Basos 0 % (Normal) Eos 6 % (Normal) Monocytes 8 % (Normal) Lymphs 46 % (Normal) Neutrophils 40 % (Normal) Platelets 307 {x10E3/uL} (Normal) Range: 150-379 RDW 14.3 % (Normal) Range: 12.3-15.4 MCHC 33.9 g/dL (Normal) Range: 31.5-35.7 MCH 29.7 pg (Normal) Range: 26.6-33.0 MCV 88 fL (Normal) Range: 79-97 Hematocrit 35.4 % (Normal) Range: 34.0-46.6 Hemoglobin 12.0 g/dL (Normal) Range: 11.1-15.9 RBC 4.04 {x10E6/uL} (Normal) Range: 3.77-5.28 WBC 5.2 {x10E3/uL} (Normal) Range: 3.4-10.8 50-Pzl-618749:05 CALCIFIDIOL (94970) VIT D 25 Comments: PATIENT NOT FASTINGPERFORMED BY: [facility]Tr[facility]6370 [facility] [id number] Vitamin D, 25-Hydroxy 19.6 ng/mL (Abnormal) Range: 30.0-100.0 Comments: Vitamin D deficiency has been defined by the [place] and an Endocrine Society practice guideline as alevel of serum 25-OH vitamin D less than 20 ng/mL (1,2).The Endocrine Society went on to further define vitamin Dinsufficiency as a level between 21 and 29 ng/mL (2).1. IOM ([place] [employer]). 2010. Dietary reference intakes for calcium and D. [place]: The National AcademBeMyGuest Press.2. Candelaria MF, Janey ELIAS, Yolande GROSS, et al. Evaluation, treatment, and prevention of vitamin D deficiency: an Endocrine Society clinical practice guideline. JCEM. 2010; 96(9):1911-30. : B12 446 pg/mL (Normal) Range: 211-911 51 :51 CBCD ALC 1.60 {X10_3/ul} (Normal) Range: 0.83-4.51 ANC 1.3 {X10_3/uL} (Abnormal) Range: 2.0-7.7 IG% 0.000 % (Normal) Range: 0.0-0.9 Comments: IG% - Immature Granulocytes (promyelocytes, myelocytes andmetamyelocytes) > 1% indicates that a LEFT SHIFT is Present. B% 0.0 % (Normal) Range: 0-1 E% 3.9 % (Normal) Range: 0-5 M% 9.6 % (Normal) Range: 0-10 L% 47.9 % (Abnormal) Range: 19-41 N% 38.6 % (Abnormal) Range: 47-70 MPV 9.8 fL (Normal) Range: 6.2-12.0 PLT 226 K/mm3 (Normal) Range: 150-450 RDWSD 44.2 fL (Abnormal) Range: 35.1-43.9 RDWCV 14.0 % (Normal) Range: 11.6-14.6 MCHC 34.6 {g/gl} (Normal) Range: 32-36 MCH 29.7 pg (Normal) Range: 27.0-32.0 MCV 85.9 fL (Normal) Range: 81-99 HCT 34.7 % (Abnormal) Range: 37-47 HGB 12.0 g/dL (Normal) Range: 12.0-15.0 RBC 4.04 {M/mm3} (Abnormal) Range: 4.2-5.4 WBC 3.3 K/mm3 (Abnormal) Range: 4.4-11.0 :51 CMP GAP 5 (Normal) Range: 5-15 CO2 28.0 mmol/L (Normal) Range: 21.0-32.0 CL 101 mmol/L (Normal) Range: 98-107 K 4.3 mmol/L (Normal) Range: 3.5-5.1 NA 134 mmol/L (Abnormal) Range: 136-145 BIT 0.40 mg/dL (Normal) Range: 0.00-1.00 ALT 18 U/L (Normal) Range: 12-78 ALK 105 U/L (Normal) Range: 45-117 AST 17 U/L (Normal) Range: 15-37 CA 9.0 mg/dL (Normal) Range: 8.5-10.1 AG 1.4 {RATIO} (Normal) Range: 0.9-2.4 GLOB 2.8 g/dL (Normal) Range: 2.7-4.2 ALB 3.8 g/dL (Normal) Range: 3.4-5.0 TPROT 6.6 g/dL (Normal) Range: 6.4-8.2 BC 21.4 {RATIO} (Abnormal) Range: 10-20 GFRAA 112 mL/min (Normal) GFR 92 mL/min (Normal) CREAT 0.7 mg/dL (Normal) Range: 0.6-1.0 BUN 15 mg/dL (Normal) Range: 7-18 GLU 93 mg/dL (Normal) Range: 70-110 :51 LUZ MARINA 42 ng/mL (Normal) Range: 8-252 :51 LIPID VLDL 23 mg/dL (Normal) Range: 5-40 LDL 83 mg/dL (Normal) Range: 0-130 HDL 62 mg/dL (Normal) Comments: Reference RangeHDL <40 mg/dL Low HDL CholesterolHDL >or= 60 mg/dL High HDL Cholesterol TRIG 113 mg/dL (Normal) Range: 0-199 Comments: Serum Triglycerides Reference IntervalNormal <150 mg/dLBorderline high 150 - 199 mg/dLHigh 200 - 499 mg/ dLVery High > or = 500 mg/dL CHOL 168 mg/dL (Normal) Comments: <200 mg/dL Pdfhupsup660-595 mg/dL Borderline>240 mg/dL High Risk 3-Oxj-094544:51 VITD 38.8 mg/mL (Normal) Comments: Vitamin D 25(OH) Status RangeDeficiency <20 ng/mL (50nmol/L)Insuffciency 20 - 30 ng/mL (50 - 75 nmol/L)Sufficiency 30 - 100 ng/mL (75 - 250 nmol/L)Toxicity >100 ng/mL (>250 nmol/L) 44-Qae-779729:07 Lipase (04557) Comments: PERFORMED BY: [employer] [facility] [id number] Lipase, Serum 67 U/L (Abnormal) Range: 0-59 42-Ino-438706:07 Amylase (47585) Comments: PERFORMED BY: [employer] [facility] [id number] Amylase, Serum 92 U/L (Normal) Range: 31-124 54-Djx-988270:11 Urinalysis, Office (54267) UA - LEUKOCYTE ESTERASE Negative (Normal) UA - NITRITE Negative (Normal) URINE UROBILINGN YANCI TIMED Normal mg/dL (Normal) UA - PROTEIN Negative mg/dL (Normal) UA - PH 5 (Abnormal) Comments: 5.5 UA - BLOOD Negative (Normal) UA - SPECIFIC GRAVITY 1.015 (Normal) UA - KETONES 15 mg/dL (Abnormal) UA - BILIRUBIN Small (Normal) UA - GLUCOSE Negative (Normal) 73-Mpf-072669:28 GRETTA CULTURE-OTHER (16608) Comments: PATIENT NOT FASTINGPERFORMED BY: [facility] [employer] [facility] [id number] Information: SRC:THRT [id number] Result 1 RRF (Normal) Comments: Routine respiratory rajwinder Upper Respiratory Culture Final report (Normal) 91-Ejb-031041:32 Rapid Strep Test, Office (90661) Rapid Strep Test, Office Negative (Normal) 55-Scr-002332:02 Iron Binding Capacity Comments: PATIENT NOT FASTINGPERFORMED BY: [facility] [employer] [facility] [id number] Information: [id number] (TIBC) (42226) Iron Saturation 6 % (Abnormal) Range: 15-55 Iron, Serum 32 ug/dL (Abnormal) Range: 35-155 UIBC 461 ug/dL (Abnormal) Range: 150-375 Iron Bind.Cap.(TIBC) 493 ug/dL (Abnormal) Range: 250-450 :02 Ferritin ([id number]) Comments: PATIENT NOT FASTINGPERFORMED BY: LabCoHoly Name Medical [id number] [facility] [id number] Ferritin, Serum 7 ng/mL (Abnormal) Range: 15-150 :19 PREMA 80 U/L (Normal) Range: 25-115 :19 B12 386 pg/mL (Normal) Range: 211-911 :19 CMP GAP 7 (Normal) Range: 5-15 CO2 28.0 mmol/L (Normal) Range: 21.0-32.0 CL 99 mmol/L (Normal) Range: 98-107 K 4.4 mmol/L (Normal) Range: 3.5-5.1 NA 134 mmol/L (Abnormal) Range: 136-145 BIT 0.40 mg/dL (Normal) Range: 0.00-1.00 ALT 20 U/L (Normal) Range: 12-78 ALK 121 U/L (Normal) Range: 50-136 AST 18 U/L (Normal) Range: 15-37 CA 8.4 mg/dL (Abnormal) Range: 8.5-10.1 AG 1.2 {RATIO} (Normal) Range: 0.9-2.4 GLOB 3.1 g/dL (Normal) Range: 2.7-4.2 ALB 3.6 g/dL (Normal) Range: 3.4-5.0 TPROT 6.7 g/dL (Normal) Range: 6.4-8.2 BC 17.5 {RATIO} (Normal) Range: 10-20 GFRAA 96 mL/min (Normal) GFR 79 mL/min (Normal) CREAT 0.8 mg/dL (Normal) Range: 0.6-1.0 BUN 14 mg/dL (Normal) Range: 7-18 GLU 96 mg/dL (Normal) Range: 70-110 :19 LUZ MARINA 11 ng/mL (Normal) Range: 8-252 :19 LIPASE 600 U/L (Abnormal) Range: 70-290 :19 LIPID VLDL 19 mg/dL (Normal) Range: 5-40 HDL 68 mg/dL (Normal) Comments: Reference RangeHDL <40 mg/dL Low HDL CholesterolHDL >or= 60 mg/dL High HDL Cholesterol LDL 94 mg/dL (Normal) Range: 0-130 TRIG 93 mg/dL (Normal) Range: 0-199 Comments: Serum Triglycerides Reference IntervalNormal <150 mg/dLBorderline high 150 - 199 mg/dLHigh 200 - 499 mg/ dLVery High > or = 500 mg/dL CHOL 181 mg/dL (Normal) Comments: <200 mg/dL [id number] mg/dL Borderline>240 mg/dL High Risk :19 VITD 16.5 mg/mL (Normal) Comments: Vitamin D 25(OH) Status RangeDeficiency <20 ng/mL (50nmol/L)Insuffciency 20 - 30 ng/mL (50 - 75 nmol/L)Sufficiency 30 - 100 ng/mL (75 - 250 nmol/L)Toxicity >100 ng/mL (>250 nmol/L) :18 CBCMD ANC 2.9 3/uL (Normal) Range: 2.0-7.7 B% 0.4 % (Normal) Range: 0-1 IG% 0.20 % (Abnormal) Range: 0.0-0.0 E% 1.4 % (Normal) Range: 0-5 M% 7.7 % (Normal) Range: 0-10 L% 30.9 % (Normal) Range: 19-41 MPV 8.6 fL (Normal) Range: 6.2-12.0 N% 59.4 % (Normal) Range: 47-70 PLT 618 K/mm3 (Abnormal) Range: 150-450 RDWSD 57.7 fL (Abnormal) Range: 35.1-43.9 MCHC 32.0 g/dL (Normal) Range: 32-36 RDWCV 19.6 % (Abnormal) Range: 11.6-14.6 MCH 26.2 pg (Abnormal) Range: 27.0-32.0 MCV 82.0 fL (Normal) Range: 81-99 HCT 29.7 % (Abnormal) Range: 37-47 HGB 9.5 g/dL (Abnormal) Range: 12.0-15.0 RBC 3.62 {M/mm3} (Abnormal) Range: 4.2-5.4 WBC 4.9 {k/mm3} (Normal) Range: 4.4-11.0 :18 CMP GAP 9 (Normal) Range: 5-15 CO2 28.0 mmol/L (Normal) Range: 21.0-32.0 CL 96 mmol/L (Abnormal) Range: 98-107 K 4.9 mmol/L (Normal) Range: 3.5-5.1 NA 133 mmol/L (Abnormal) Range: 136-145 ALT 19 U/L (Normal) Range: 12-78 BIT 0.30 mg/dL (Normal) Range: 0.00-1.00 ALK 160 U/L (Abnormal) Range: 50-136 AST 20 U/L (Normal) Range: 15-37 CA 8.7 mg/dL (Normal) Range: 8.5-10.1 AG 1.3 {RATIO} (Normal) Range: 0.9-2.4 GLOB 3.0 g/dL (Normal) Range: 2.7-4.2 ALB 3.8 g/dL (Normal) Range: 3.4-5.0 TPROT 6.8 g/dL (Normal) Range: 6.4-8.2 BC 18.6 {RATIO} (Normal) Range: 10-20 GFRAA 112 mL/min (Normal) CREAT 0.7 mg/dL (Normal) Range: 0.6-1.0 GFR 92 mL/min (Normal) BUN 13 mg/dL (Normal) Range: 7-18 GLU 79 mg/dL (Normal) Range: 70-110 73-Enn-[id number]:18 TS Ab SCREEN GEL NEGATIVE (Normal) SCREEN CELL I NEGATIVE (Normal) SCREEN CELL II NEGATIVE (Normal) SCREEN CELL III NEGATIVE (Normal) BLOOD TYPE GEL O POSITIVE (Normal) [id number]-Uju-[id number]:17 Metabolic Panel, Comments: PATIENT NOT FASTINGPERFORMED BY: [facility] [id number] [facility] [id number] Information: [id number] Comprehensive (05768) ALT (SGPT) 13 [iU]/L (Normal) Range: 0-32 AST (SGOT) 23 [iU]/L (Normal) Range: 0-40 Alkaline Phosphatase, S 113 [iU]/L (Normal) Range: 25-150 Bilirubin, Total 0.2 mg/dL (Normal) Range: 0.0-1.2 A/G Ratio 1.8 (Normal) Range: 1.1-2.5 Globulin, Total 2.3 g/dL (Normal) Range: 1.5-4.5 Albumin, Serum 4.2 g/dL (Normal) Range: 3.5-5.5 Protein, Total, Serum 6.5 g/dL (Normal) Range: 6.0-8.5 Calcium, Serum 9.1 mg/dL (Normal) Range: 8.7-10.2 Carbon Dioxide, Total 26 mmol/L (Normal) Range: 19-28 Comments: Please note reference interval change Chloride, Serum 97 mmol/L (Normal) Range: 97-108 Potassium, Serum 5.0 mmol/L (Normal) Range: 3.5-5.2 Sodium, Serum 135 mmol/L (Normal) Range: 134-144 BUN/Creatinine Ratio 13 (Normal) Range: 9-23 eGFR If Africn Am 110 mL/min/1.73 (Normal) eGFR If NonAfricn Am 96 mL/min/1.73 (Normal) Creatinine, Serum 0.71 mg/dL (Normal) Range: 0.57-1.00 BUN 9 mg/dL (Normal) Range: 6-24 Glucose, Serum 45 mg/dL (Abnormal) Range: 65-99 Comments: Client Requested Flag :1 PREMA 101 U/L (Normal) Range: 25-115 6 :1 LUZ MARINA 10 ng/mL (Normal) Range: 8-252 6 :1 LIPASE 539 U/L (Abnormal) Range: 70-290 6 :25 PREMA 74 U/L (Normal) Range: 25-115 :25 LIPASE 462 U/L (Abnormal) Range: 70-290 :1 PREMA 92 U/L (Normal) Range: 25-115 9 :19 CBCMD RBCM NORM C+C {NORMAL} (Normal) PE ADEQUATE (Normal) EOS 3 % (Normal) Range: 0-5 MON 12 % (Abnormal) Range: 0-10 LYMPH 47 % (Abnormal) Range: 19-41 BAND 1 % (Normal) Range: 0-5 PMN 37 % (Abnormal) Range: 47-70 TESSA 100 (Normal) ANC 2.3 3/uL (Normal) Range: 2.0-7.7 PLT 271 K/mm3 (Normal) Range: 150-450 RDW 14.1 % (Normal) Range: 11.6-14.6 MCHC 33.3 g/dL (Normal) Range: 32-36 MCH 29.7 pg (Normal) Range: 27.0-32.0 MCV 89.1 fL (Normal) Range: 81-99 HCT 38.0 % (Normal) Range: 37-47 HGB 12.7 g.dL (Normal) Range: 12.0-15.0 Comments: Please note: Revised HEMOGLOBIN REFERENCE RANGES Reference Range effective 12. RBC 4.27 {M/mm3} (Normal) Range: 4.2-5.4 WBC 5.0 K/mm3 (Normal) Range: 4.4-11.0 17-Qop-[id number]:19 CMP GAP 9 (Normal) Range: 5-15 CO2 28.0 mmol/L (Normal) Range: 21.0-32.0 CL 98 mmol/L (Normal) Range: 98-107 K 4.2 mmol/L (Normal) Range: 3.5-5.1 NA 135 mmol/L (Abnormal) Range: 136-145 BIT 0.30 mg/dL (Normal) Range: 0.00-1.00 ALT 24 U/L (Normal) Range: 12-78 ALK 91 U/L (Normal) Range: 50-136 AST 14 U/L (Abnormal) Range: 15-37 CA 9.0 mg/dL (Normal) Range: 8.5-10.1 AG 1.4 {RATIO} (Normal) Range: 0.9-2.4 GLOB 3.1 g/dL (Normal) Range: 2.7-4.2 ALB 4.2 g/dL (Normal) Range: 3.4-5.0 TPROT 7.3 g/dL (Normal) Range: 6.4-8.2 BC 13.8 {RATIO} (Normal) Range: 10-20 GFRAA 96 mL/min (Normal) GFR 79 mL/min (Normal) CREAT 0.8 mg/dL (Normal) Range: 0.6-1.0 BUN 11 mg/dL (Normal) Range: 7-18 GLU 87 mg/dL (Normal) Range: 70-110 :19 LIPASE 576 U/L (Abnormal) Range: 70-290 :19 LIPID VLDL 17 mg/dL (Normal) Range: 5-40 LDL 82 mg/dL (Normal) Range: 0-130 HDL 79 mg/dL (Normal) Comments: Reference Range HDL <40 mg/dL Low HDL Cholesterol HDL >or= 60 mg/dL High HDL Cholesterol TRIG 84 mg/dL (Normal) Comments: Serum Triglycerides Reference Interval Normal <150 mg/dL Borderline high 150 - 199 mg/dL High 200 - 499 mg/dL Very High > or = 500 mg/dL CHOL 178 mg/dL (Normal) Comments: <200 mg/dL Desirable 200-240 mg/dL Borderline >240 mg/dL High Risk :19 MIACRE tMICROCREAT 6.3 {mg/g_CRE} (Normal) CREU 86.9 mg/dL (Normal) MIALB 5.5 mg/L (Normal) :41 PREMA 80 U/L (Normal) Range: 25-115 :41 CBCD ABSOLUTE NEUT 3.9 3/uL (Normal) Range: 2.0-7.7 BASO% 0.6 % (Normal) Range: 0-1 EO% 3.0 % (Normal) Range: 0-5 MONO% 6.2 % (Normal) Range: 0-10 LY% 27.9 % (Normal) Range: 19-41 NEUT% 62.3 % (Normal) Range: 47-70 MPV 9.0 fL (Normal) Range: 6.5-12.0 PLT 212 K/mm3 (Normal) Range: 150-450 RDW 14.9 % (Abnormal) Range: 11.6-14.6 MCHC 34.3 g/dL (Normal) Range: 32-36 MCH 29.8 pg (Normal) Range: 27.0-32.0 MCV 86.8 fL (Normal) Range: 81-99 HCT 33.3 % (Abnormal) Range: 37-47 HGB 11.4 g/dL (Abnormal) Range: 12.0-16.0 RBC 3.84 {M/mm3} (Abnormal) Range: 4.2-5.4 WBC 6.2 K/mm3 (Normal) Range: 4.4-11.0 :41 COMP METABOLIC GAP 8 (Normal) Range: 5-15 CO2 28.0 mmol/L (Normal) Range: 21.0-32.0 CL 100 mmol/L (Normal) Range: 98-107 K 4.7 mmol/L (Normal) Range: 3.5-5.1 NA 136 mmol/L (Normal) Range: 136-145 T BILI 0.30 mg/dL (Normal) Range: 0.00-1.00 ALT 22 U/L (Normal) Range: 12-78 ALK P 75 U/L (Normal) Range: 50-136 AST 20 U/L (Normal) Range: 15-37 CA 8.2 mg/dL (Abnormal) Range: 8.5-10.1 A/G 1.2 {RATIO} (Normal) Range: 0.9-2.4 GLOB 3.0 g/dL (Normal) Range: 2.7-4.2 ALB 3.5 g/dL (Normal) Range: 3.4-5.0 T PROT 6.5 g/dL (Normal) Range: 6.4-8.2 BUN/CRE 17.5 {RATIO} (Normal) Range: 10-20 EST GFR - AA 96 mL/min (Normal) EST GFR 79 mL/min (Normal) CREAT,SERUM 0.8 mg/dL (Normal) Range: 0.6-1.0 BUN 14 mg/dL (Normal) Range: 7-18 GLU 91 mg/dL (Normal) Range: 70-110 :41 FERRITIN 13 ng/mL (Normal) Range: 8-252 :41 IRON 110 ug/dL (Normal) Range: 50-170 :41 LIPASE 336 U/L (Abnormal) Range: 70-290 :41 LIPID VLDL 20 mg/dL (Normal) Range: 5-40 LDL 76 mg/dL (Normal) Range: 0-130 HDL 78 mg/dL (Normal) Comments: Reference Range HDL <40 mg/dL Low HDL Cholesterol HDL >or= 60 mg/dL High HDL Cholesterol TRIG 101 mg/dL (Normal) Comments: Serum Triglycerides Reference Interval Normal <150 mg/dL Borderline high 150 - 199 mg/dL High 200 - 499 mg/dL Very High > or = 500 mg/dL CHOL 174 mg/dL (Normal) Comments: <200 mg/dL Desirable 200-240 mg/dL Borderline >240 mg/dL High Risk :41 PRO TIME INR 1.0 (Normal) PROTIME 13.2 s (Normal) Range: 11.9-14.4 :41 VIT D,25 57878 20.3 ng/mL (Abnormal) Range: 30.0-100.0 Comments: Vitamin D deficiency has been defined by the [place] and an Endocrine Society practice guideline as alevel of serum 25-OH vitamin D less than 20 ng/mL (1,2).The Endocrine Society went on to further define vitamin Dinsufficiency as a level between 21 and 29 ng/mL (2).1. IOM ([place] [employer]). 2010. Dietary reference intakes for calcium and D. [place]: The National Academies Press.2. Candelaria MF, Janey NC, Yolande GROSS, et al. Evaluation, treatment, and prevention of vitamin D deficiency: an Endocrine Society clinical practice guideline. JCEM. 2010; 96(7): 1911-30.Performed at: - [facility] [id number] Director: Yony San MD, Phone: [phone] at: [facility] [id number] Director: Era Tinoco MD, Phone: [phone] :41 VITD 1,25 99804 44.5 pg/mL (Normal) Range: 10.0-75.0 :09 PREMA 87 U/L (Normal) Range: 25-115 :09 CBCD ABSOLUTE NEUT 4.0 3/uL (Normal) Range: 2.0-7.7 BASO% 0.2 % (Normal) Range: 0-1 EO% 1.9 % (Normal) Range: 0-5 MONO% 5.5 % (Normal) Range: 0-10 LY% 28.7 % (Normal) Range: 19-41 NEUT% 63.7 % (Normal) Range: 47-70 MPV 8.1 fL (Normal) Range: 6.5-12.0 PLT 331 K/mm3 (Normal) Range: 150-450 RDW 14.0 % (Normal) Range: 11.6-14.6 MCHC 34.5 g/dL (Normal) Range: 32-36 MCH 31.6 pg (Normal) Range: 27.0-32.0 MCV 91.7 fL (Normal) Range: 81-99 HCT 36.7 % (Abnormal) Range: 37-47 HGB 12.7 g/dL (Normal) Range: 12.0-16.0 RBC 4.00 {M/mm3} (Abnormal) Range: 4.2-5.4 WBC 6.2 K/mm3 (Normal) Range: 4.4-11.0 0-Bpv-463579:09 COMP METABOLIC GAP 11 (Normal) Range: 5-15 CO2 28.0 mmol/L (Normal) Range: 21.0-32.0 CL 95 mmol/L (Abnormal) Range: 98-107 K 5.3 mmol/L (Abnormal) Range: 3.5-5.1 NA 134 mmol/L (Abnormal) Range: 136-145 T BILI 0.40 mg/dL (Normal) Range: 0.00-1.00 ALT 27 U/L (Normal) Range: 12-78 ALK P 87 U/L (Normal) Range: 50-136 AST 19 U/L (Normal) Range: 15-37 CA 9.2 mg/dL (Normal) Range: 8.5-10.1 A/G 1.5 {RATIO} (Normal) Range: 0.9-2.4 GLOB 2.6 g/dL (Abnormal) Range: 2.7-4.2 ALB 4.0 g/dL (Normal) Range: 3.4-5.0 T PROT 6.6 g/dL (Normal) Range: 6.4-8.2 BUN/CRE 17.1 {RATIO} (Normal) Range: 10-20 EST GFR - AA 112 mL/min (Normal) EST GFR 92 mL/min (Normal) CREAT,SERUM 0.7 mg/dL (Normal) Range: 0.6-1.0 BUN 12 mg/dL (Normal) Range: 7-18 GLU 99 mg/dL (Normal) Range: 70-110 :09 FERRITIN 18 ng/mL (Normal) Range: 8-252 4-Gfb-[id number]:09 LIPASE 280 U/L (Normal) Range: 70-290 Comments: Please note:LIPASE revised reference range effective 09. 99-Rkd-550551:05 LIPID Comments: COMMENTS: FAX RESULTS TO DR PIZANO VLDL 12 mg/dL (Normal) Range: 5-40 LDL 66 mg/dL (Normal) Range: 0-130 HDL 87 mg/dL (Normal) Comments: Reference Range HDL <40 mg/dL Low HDL Cholesterol HDL >or= 60 mg/dL High HDL Cholesterol TRIG 62 mg/dL (Normal) Comments: Serum Triglycerides Reference Interval Normal <150 mg/dL Borderline high 150 - 199 mg/dL High 200 - 499 mg/dL Very High > or = 500 mg/dL CHOL 165 mg/dL (Normal) Comments: <200 mg/dL Desirable 200-240 mg/dL Borderline >240 mg/dL High Risk [id number]:54 BILAT SCRN DIGITAL & CAD Radiology Report See Note (Normal) Comments: MAMMOGRAPHY - BILATERAL SCREENING INDICATION:Female, 55 years old. Routine annual screening examination. PERTINENT HISTORY:Non-contributory. TECHNIQUE:Digital examination. Mediolateral oblique (MLO) a nd craniocaudad (CC)views of both breasts were obtained. CAD: CAD was performed on thisstudy. COMPARISON:Comparison is made with prior examination dated September. FINDINGS:The breast composition is heterogeneously dense. A jorge catheter isseenin the right axillary region. There are no masses or suspicious microcalcifications. No other significant abnormalities are identified. There has been no significant change since the prior study. IMPRESSION:Normal bilateral screening mammogram. One year follow-up recommended. (1) ASSESSMENT CATEGORY:BIRADS Category 2: Benign finding(s). A letter regar ding these resultswill be sent to the patient by the facility within 30 days. Approximately 10% of breast cancers are not detected by mammography. Anormal mammogram should not delay biopsy of a clinica lly suspiciousabnormality. Dictated on 11/19/10 1337 by Jaci Patel MDranscribed on 11/20/10 0110 by ITS IMPORTSign by Bartolome Patel MD on 11/20/10 0112 Sign by: Bartolome Patel MD 12-Viu-245527:54 DEXA BONE DENSITY STUDY (HP) Radiology Report See Note (Normal) Comments: CLINICAL:Female, 55 years old. The patient is postmenopausal. EXAMINATION:DUAL ENERGY X-RAY ABSORPTIOMETRY / DEXA. TECHNIQUE:Bone Mineral Density (BMD) measurements of lumbar spine and bila teralhipswer e obtained using a [employer] scanner.. COMPARISON:Comparison is made with prior study dated March. FINDINGS: Lumbar Spine (L1- L4): g/cm2 (1.189) / T-score (0.1) / Z-score (0.3)Left Femur Total: g/cm2 (1.046) / T-score (0.3) / Z-score (0.6)Right Femur Total: g/cm2 (1.030) / T-score (0.2) / Z-score (0.4) Since prior study, there has been an improvement of 20.2% in the bonedensity. IMPRESSION:The patient is considered normal, as outlined above, according to WorldHealth Organization (WHO) criteria. Fracture risk is low. Reference Information:The T-score is the number of standard deviations above or below thestandard which is normal for young adults at their peak bone mineraldensity. The World Health Organization (WHO) interprets the T-scores asfollows: Above -1 Normal bone densityBetween -1 and -2.5 OsteopeniaEqual to / or below -2.5 Osteoporosis As a practical clinical guideline, osteopenia may be graded as follows:Mild -1 through -1 .5Moderate -1.6 through -2.0Severe -2.1 through -2.4 The Z-score is the number of standard deviations above or below age-matchedcontrols. A Z-score of less than -1.5 would be considered abnormal . References:1. NIH Osteoporosis and Related Bone Diseases http://www.osteo.org2. International Society for Clinical Densitometry http://www.iscd.org3. National Osteoporosis Foundation http://www.nof .org Dictated on 11/19/10 1420 by Ty Patel MDscribed on 11/20/1030 by ITS IMPORTSign by Bartolome Patel MD on 11/20/1030 Sign by: Bartolome Patel MD [id number]-Tuz-[id number]:46 DESIRAE DIR SEMI-QL Comments: ORDERED CBC LUZ MARINA FEDRCOREY ORDERED CMP CBCD CRP ESR VITD HEPB SURF AB CCPHEPB IRINA AG HEPC DESIRAE RA HEPB CORE IGM UAC SCL70 ANTOINE ANTI JOANTICENT AB SSA SSB DNA UAPROTEIN C3 C4 TSH DESIARE DIRECT 56 AU/mL (Normal) 7-[id number]:46 ANEX PANEL Comments: ORDERED CBC LUZ MARINA FEDRCOREY ORDERED CMP CBCD CRP ESR VITD HEPB SURF AB CCPHEPB IRINA AG HEPC DESIRAE RA HEPB CORE IGM UAC SCL70 ANTOINE ANTI JOANTICENT AB SSA SSB DNA UAPROTEIN C3 C4 TSH; appt 11/02/10 [facility] AB 14 AU/mL (Normal) ANTI-TORRES AB 7 AU/mL (Normal) :46 ANTI JO1 Comments: ORDERED CBC LUZ MARINA FEDRCOREY ORDERED CMP CBCD CRP ESR VITD HEPB SURF AB CCPHEPB IRINA AG HEPC DESIRAE RA HEPB CORE IGM UAC SCL70 ANTOINE ANTI JOANTICENT AB SSA SSB DNA UAPROTEIN C3 C4 TSH ANTI LAMAR 7 AU/mL (Normal) 2-Aya-[id number]:46 ANTI SCL 70 Comments: ORDERED CBC LUZ MARINA FEDRCOREY ORDERED CMP CBCD CRP ESR VITD HEPB SURF AB CCPHEPB IRINA AG HEPC DESIRAE RA HEPB CORE IGM UAC SCL70 ANTOINE ANTI JOANTICENT AB SSA SSB DNA UAPROTEIN C3 C4 TSH ANTI-SCL 70 14 AU/mL (Normal) 6-Aug-463200:46 ANTI-CCP [id number] < 1 {units} (Normal) Comments: ORDERED CBC LUZ MARINA FEDR.VELSUSHILA ORDERED CMP CBCD CRP ESR VITD HEPB SURF AB CCPHEPB IRINA AG HEPC DESIRAE RA HEPB CORE IGM UAC SCL70 ANTOINE ANTI JOANTICENT AB SSA SSB DNA UAPROTEIN C3 C4 TSH Range: 0-19 Comments: Negative <20 Weak positive 20 - 39 Moderate positive 40 - 59 Strong positive >59 :46 ANTI-dsDNA AB 1 {IU/mL} (Normal) Comments: ORDERED CBC LUZ MARINA FEDR.VELLANCHATO ORDERED CMP CBCD CRP ESR VITD HEPB SURF AB CCPHEPB IRINA AG HEPC DESIRAE RA HEPB CORE IGM UAC SCL70 ANTOINE ANTI JOANTICENT AB SSA SSB DNA UAPROTEIN C3 C4 TSH :46 C-REACTIVE PROT < 2.90 mg/L (Normal) Comments: ORDERED CBC LUZ MARINA FEDR.VELLANCHATO ORDERED CMP CBCD CRP ESR VITD HEPB SURF AB CCPHEPB IRINA AG HEPC DESIRAE RA HEPB CORE IGM UAC SCL70 ANTOINE ANTI JOANTICENT AB SSA SSB DNA UAPROTEIN C3 C4 TSH Range: 0.0-3.0 Comments: C-Reactive Protein (CRP) provides useful information for thediagnosis, therapy and monitoring of inflammatory processesand associated diseases. For the evaluation of Relative Riskfor Cardiovascular Dise ase, a High Sensitivity CRP (HSCRP)should be ordered. :46 CBCD Comments: ORDERED CBC LUZ MARINA FEDR.STEFANY ORDERED CMP CBCD CRP ESR VITD HEPB SURF AB CCPHEPB IRINA AG HEPC DESIRAE RA HEPB CORE IGM UAC SCL70 ANTOINE ANTI JOANTICENT AB SSA SSB DNA UAPROTEIN C3 C4 TSH ABSOLUTE NEUT 3.3 3/uL (Normal) Range: 2.0-7.7 BASO% 0.7 % (Normal) Range: 0-1 EO% 1.4 % (Normal) Range: 0-5 LY% 28.7 % (Normal) Range: 19-41 MONO% 6.7 % (Normal) Range: 0-10 NEUT% 62.5 % (Normal) Range: 47-70 MPV 9.2 fL (Normal) Range: 6.5-12.0 PLT 205 K/mm3 (Normal) Range: 150-450 MCH 31.8 pg (Normal) Range: 27.0-32.0 MCHC 35.4 g/dL (Normal) Range: 32-36 RDW 13.8 % (Normal) Range: 11.6-14.6 HCT 32.6 % (Abnormal) Range: 37-47 MCV 90.0 fL (Normal) Range: 81-99 HGB 11.5 g/dL (Abnormal) Range: 12.0-16.0 RBC 3.62 {M/mm3} (Abnormal) Range: 4.2-5.4 WBC 5.3 K/mm3 (Normal) Range: 4.4-11.0 :46 CENTROMERE B 36 AU/mL (Normal) Comments: ORDERED CBC LUZ MARINA RODRIGUEZ ORDERED CMP CBCD CRP ESR VITD HEPB SURF AB CCPHEPB IRINA AG HEPC DESIRAE RA HEPB CORE IGM UAC SCL70 ANTOINE ANTI JOANTICENT AB SSA SSB DNA UAPROTEIN C3 C4 TSH :46 COMP C3 6452 125 (Normal) Comments: ORDERED CBC LUZ MARINA RODRIGUEZ ORDERED CMP CBCD CRP ESR VITD HEPB SURF AB CCPHEPB IRINA AG HEPC DESIRAE RA HEPB CORE IGM UAC SCL70 ANTOINE ANTI JOANTICENT AB SSA SSB DNA UAPROTEIN C3 C4 TSH Range: 90-180 Comments: INFCE Result Units: mg/dL Adult :46 COMP C4 1834 19 (Normal) Comments: ORDERED CBC LUZ MARINA RODRIGUEZ ORDERED CMP CBCD CRP ESR VITD HEPB SURF AB CCPHEPB IRINA AG HEPC DESIRAE RA HEPB CORE IGM UAC SCL70 ANTOINE ANTI JOANTICENT AB SSA SSB DNA UAPROTEIN C3 C4 TSH Range: 9-36 Comments: INFCE Result Units: mg/dL Adult :46 COMP METABOLIC Comments: ORDERED CBC LUZ MARINA VAZQUEZRCOREY ORDERED CMP CBCD CRP ESR VITD HEPB SURF AB CCPHEPB IRINA AG HEPC DESIRAE RA HEPB CORE IGM UAC SCL70 ANTOINE ANTI JOANTICENT AB SSA SSB DNA UAPROTEIN C3 C4 TSH GAP 11 (Normal) Range: 5-15 CL 97 mmol/L (Abnormal) Range: 98-107 CO2 25.0 mmol/L (Normal) Range: 21.0-32.0 K 4.3 mmol/L (Normal) Range: 3.5-5.1 NA 133 mmol/L (Abnormal) Range: 136-145 Comments: ADDENDA: low na normal for pt last one 131 ALK P 75 U/L (Normal) Range: 50-136 ALT 21 U/L (Normal) Range: 12-78 T BILI 0.20 mg/dL (Normal) Range: 0.00-1.00 AST 18 U/L (Normal) Range: 15-37 CA 8.8 mg/dL (Normal) Range: 8.5-10.1 A/G 1.3 {RATIO} (Normal) Range: 0.9-2.4 ALB 3.8 g/dL (Normal) Range: 3.4-5.0 GLOB 2.9 g/dL (Normal) Range: 2.7-4.2 T PROT 6.7 g/dL (Normal) Range: 6.4-8.2 BUN/CRE 11.1 {RATIO} (Normal) Range: 10-20 EST GFR 69 mL/min (Normal) EST GFR - AA 84 mL/min (Normal) BUN 10 mg/dL (Normal) Range: 7-18 CREAT,SERUM 0.9 mg/dL (Normal) Range: 0.6-1.0 GLU 91 mg/dL (Normal) Range: 70-110 6-Qfv-756860:46 ESR Comments: ORDERED CBC LUZ MARINA RODRIGUEZ ORDERED CMP CBCD CRP ESR VITD HEPB SURF AB CCPHEPB IRINA AG HEPC DESIRAE RA HEPB CORE IGM UAC SCL70 ANTOINE ANTI JOANTICENT AB SSA SSB DNA UAPROTEIN C3 C4 TSH SED RATE 5 mm/h (Normal) Range: 0-30 :46 FERRITIN 9 ng/mL (Normal) Comments: ORDERED CBC LUZ MARINA MICHAEL ORDERED CMP CBCD CRP ESR VITD HEPB SURF AB CCPHEPB IRINA AG HEPC DESIRAE RA HEPB CORE IGM UAC SCL70 ANTOINE ANTI JOANTICENT AB SSA SSB DNA UAPROTEIN C3 C4 TSH Range: 8-252 :46 HB CORE [id number] SeeNote (Normal) Comments: ORDERED CBC LUZ MARINA MICHAEL ORDERED CMP CBCD CRP ESR VITD HEPB SURF AB CCPHEPB IRINA AG HEPC DESIRAE RA HEPB CORE IGM UAC SCL70 ANTOINE ANTI JOANTICENT AB SSA SSB DNA UAPROTEIN C3 C4 TSH Comments: Result: Negative Performed at: - [facility] [address] [id number] Director: Era Tinoco MD, Phone: [phone] at: - [facility] [address] [id number] Director: Yony San MD, Phone: [phone] HBsAg [id number] Comments: ORDERED CBC LUZ MARINA FEDRCOREY ORDERED CMP CBCD CRP ESR VITD HEPB SURF AB CCPHEPB IRINA AG HEPC DESIRAE RA HEPB CORE IGM UAC SCL70 ANTOINE ANTI JOANTICENT AB SSA SSB DNA UAPROTEIN C3 C4 TSH HB SURF AG 6510 SeeNote (Normal) Comments: Result: Negative :46 HEBSAB 6395 < 0.1 (Normal) Comments: ORDERED CBC LUZ MARINA FEDRCOREY ORDERED CMP CBCD CRP ESR VITD HEPB SURF AB CCPHEPB IRINA AG HEPC DESIRAE RA HEPB CORE IGM UAC SCL70 ANTOINE ANTI JOANTICENT AB SSA SSB DNA UAPROTEIN C3 C4 TSH Range: 0.00-0.99 Comments: Status of Immunity Anti-HBs Level Inconsistent with Immunity 0.00 - 0.99 Consistent with Immunity >0.99 . An Index Value of 1.00 is equivalent to 10 mIU/mL. However the magnitude of the Index Value is not indicative of the total amount of antibody present. :46 HEP C AB [id number] <0.1 (Normal) Comments: ORDERED CBC LUZ MARINA FEDRDEMETRILANCHATO ORDERED CMP CBCD CRP ESR VITD HEPB SURF AB CCPHEPB IRINA AG HEPC DESIRAE RA HEPB CORE IGM UAC SCL70 ANTOINE ANTI JOANTICENT AB SSA SSB DNA UAPROTEIN C3 C4 TSH Range: 0.0-0.9 Comments: Negative: < 0.8 Indeterminate 0.8 - 0.9 Positive: > 0.9 . In order to reduce the incidence of a false positive result, the CDC recommends that all s/co ratios between 1.0 and 10.9 be confirmed with additional RIBA or PCR testing. :46 IRON 79 ug/dL (Normal) Comments: ORDERED CBC LUZ MARINA FEDRCOREY ORDERED CMP CBCD CRP ESR VITD HEPB SURF AB CCPHEPB IRINA AG HEPC DESIRAE RA HEPB CORE IGM UAC SCL70 ANTOINE ANTI JOANTICENT AB SSA SSB DNA UAPROTEIN C3 C4 TSH Range: 50-170 :46 RHEUMATOID FAC < 10.0 {IU/mL} (Normal) Comments: ORDERED CBC LUZ MARINA FEDRCOREY ORDERED CMP CBCD CRP ESR VITD HEPB SURF AB CCPHEPB IRINA AG HEPC DESIRAE RA HEPB CORE IGM UAC SCL70 ANTOINE ANTI JOANTICENT AB SSA SSB DNA UAPROTEIN C3 C4 TSH :46 SJOGREN'S SSA 56 AU/mL (Normal) Comments: ORDERED CBC LUZ MARINA FEDRCOREY ORDERED CMP CBCD CRP ESR VITD HEPB SURF AB CCPHEPB IRINA AG HEPC DESIRAE RA HEPB CORE IGM UAC SCL70 ANTOINE ANTI JOANTICENT AB SSA SSB DNA UAPROTEIN C3 C4 TSH :46 SJOGRENS SSB Comments: ORDERED CBC LUZ MARINA FEDR.STEFANY ORDERED CMP CBCD CRP ESR VITD HEPB SURF AB CCPHEPB IRINA AG HEPC DESIRAE RA HEPB CORE IGM UAC SCL70 ANTOINE ANTI JOANTICENT AB SSA SSB DNA UAPROTEIN C3 C4 TSH SJOGREN'S SSB 9 AU/mL (Normal) :46 TSH 1.56 {uIU/mL} (Normal) Comments: ORDERED CBC LUZ MARINA FEDRCOREY ORDERED CMP CBCD CRP ESR VITD HEPB SURF AB CCPHEPB IRINA AG HEPC DESIRAE RA HEPB CORE IGM UAC SCL70 ANTOINE ANTI JOANTICENT AB SSA SSB DNA UAPROTEIN C3 C4 TSH Range: 0.358-3.74 :46 VIT D,25 98720 9.3 ng/mL (Abnormal) Comments: ORDERED CBC LUZ MARINA FEDRCOREY ORDERED CMP CBCD CRP ESR VITD HEPB SURF AB CCPHEPB IRINA AG HEPC DESIRAE RA HEPB CORE IGM UAC SCL70 ANTOINE ANTI JOANTICENT AB SSA SSB DNA UAPROTEIN C3 C4 TSH Range: 32.0-100.0 Comments: Recent studies consider the lower limit of 32.0 ng/mL to jayleen threshold for optimal health.Ortiz SANCHEZ. J Nutr. 2004;135(2):317-22. [id number] CBC Comments: COMMENTS: FAX RESULTS TO DR. CECI FARIAS DRAW MPV 8.8 fL (Normal) Range: 6.5-12.0 MCH 31.4 pg (Normal) Range: 27.0-32.0 MCHC 34.7 g/dL (Normal) Range: 32-36 PLT 301 K/mm3 (Normal) Range: 150-450 RDW 13.2 % (Normal) Range: 11.6-14.6 MCV 90.7 fL (Normal) Range: 81-99 HCT 33.7 % (Abnormal) Range: 37-47 HGB 11.7 g/dL (Abnormal) Range: 12.0-16.0 RBC 3.71 {M/mm3} (Abnormal) Range: 4.2-5.4 WBC 9.8 K/mm3 (Normal) Range: 4.4-11.0 [id number] FERRITIN 21 ng/mL (Normal) Comments: COMMENTS: FAX RESULTS TO DR. CECI NUNORESULTS FAXED 07/17/10 131VLADIMIR MAKI. Range: 8-252 [id number] IRON 125 ug/dL (Normal) Comments: COMMENTS: FAX RESULTS TO DR. CECI FARIAS DRAWRESULTS FAXED 07/17/10 131VLADIMIR MAKI. Range: 50-170 [id number] CBC With Differential/Platelet Comments: [facility]: [facility] [facility] [id number] Baso (Absolute) 0.0 {x10E3/uL} (Normal) Range: 0.0-0.2 Eos (Absolute) 0.1 {x10E3/uL} (Normal) Range: 0.0-0.4 Immature Grans (Abs) 0.0 {x10E3/uL} (Normal) Range: 0.0-0.1 Immature Granulocytes 0 % (Normal) Range: 0-1 Lymphs (Absolute) 2.3 {x10E3/uL} (Normal) Range: 0.7-4.5 Monocytes(Absolute) 0.3 {x10E3/uL} (Normal) Range: 0.1-1.0 Neutrophils (Absolute) 2.6 {x10E3/uL} (Normal) Range: 1.8-7.8 Basos 0 % (Normal) Range: 0-3 Eos 2 % (Normal) Range: 0-7 Lymphs 42 % (Normal) Range: 14-46 Monocytes 6 % (Normal) Range: 4-13 Neutrophils 50 % (Normal) Range: 40-74 Platelets 297 {x10E3/uL} (Normal) Range: 140-415 Hematocrit 36.6 % (Normal) Range: 34.0-44.0 Hemoglobin 12.5 g/dL (Normal) Range: 11.5-15.0 MCH 30.3 pg (Normal) Range: 27.0-34.0 MCHC 34.2 g/dL (Normal) Range: 32.0-36.0 MCV 89 fL (Normal) Range: 80-98 RBC 4.12 {x10E6/uL} (Normal) Range: 3.80-5.10 RDW 14.3 % (Normal) Range: 11.7-15.0 WBC 5.3 {x10E3/uL} (Normal) Range: 4.0-10.5 [id number] Comp. Metabolic Panel (14) Comments: PERFORMED BY: [facility] [facility] [id number] ALT (SGPT) 18 [iU]/L (Normal) Range: 0-40 Alkaline Phosphatase, S 97 [iU]/L (Normal) Range: 25-150 AST (SGOT) 25 [iU]/L (Normal) Range: 0-40 A/G Ratio 1.8 (Normal) Range: 1.1-2.5 Albumin, Serum 4.2 g/dL (Normal) Range: 3.5-5.5 Bilirubin, Total 0.2 mg/dL (Normal) Range: 0.0-1.2 Calcium, Serum 9.1 mg/dL (Normal) Range: 8.7-10.2 Carbon Dioxide, Total 27 mmol/L (Normal) Range: 20-32 Chloride, Serum 95 mmol/L Range: 97-108 (Abnormal) Globulin, Total 2.3 g/dL (Normal) Range: 1.5-4.5 Potassium, Serum 4.7 mmol/L Range: 3.5-5.2 (Normal) Protein, Total, Serum 6.5 g/dL (Normal) Range: 6.0-8.5 BUN 12 mg/dL (Normal) Range: 5-26 BUN/Creatinine Ratio 15 (Normal) Range: 8-27 Creatinine, Serum 0.80 mg/dL Range: 0.57-1.00 (Normal) eGFR >59 mL/min/1.73 (Normal) eGFR AfricanAmerican >59 mL/min/1.73 Comments: Note: Persistent reduction for 3 months or more in an eGFR<60 mL/min/1.73 m2 defines CKD. Patients with eGFR values>/=60 mL/min/1.73 m2 may also have CKD if evidence of persistentproteinuria is (Normal) present. Additional information may be found [email or web address]. Sodium, Serum 131 mmol/L Range: 135-145 (Abnormal) Glucose, Serum 97 mg/dL (Normal) Range: 65-99 31-Mar-2010 Ferritin, Serum 14 ng/mL (Normal) Comments: PERFORMED BY: [facility] (by isePankur)[facility] [facility] [id number] 14:20 Range: 13-150 71-Jtn-071096:20 Iron and TIBC Comments: PERFORMED BY: [employer] [facility] [id number] Iron Saturation 23 % (Normal) Range: 15-55 Iron, Serum 106 ug/dL (Normal) Range: 35-155 UIBC 361 ug/dL (Normal) Range: 150-375 Iron Bind.Cap.(TIBC) 467 ug/dL Range: 250-450 (Abnormal) TSH 1.760 {uIU/mL} Comments: PERFORMED BY: [employer] [facility] [id number] :20 (Normal) Range: 0.450-4.500 C DIF TOXIN/AG See Note (Normal) Comments: PT COLLECTED SPECIMEN 12/30 @2300 :45 Comments: C. DIFF ANTIGENS NEGATIVE :45 CUL STOOL/SHIG Comments: PT COLLECTED SPECIMEN 12/30 @2300 CULTURE, STOOL See Note (Normal) Comments: COPY OF REPORT SENT TO INFECTION CONTROL 01/03/10 [facility]. No Salmonella, Shigella or Yersinia isolated.No significant amount of Staphylococcus aureus oryeast-like organisms isolated. [place] 2+ ORGANISM 1: CAMPYLOBACTER SPECIES SHIGA-TOXIN See Note (Normal) Comments: SHIGA TOXIN 1 AND SHIGA TOXIN 2 NOT DETECTED :45 O AND P See Note (Normal) Comments: PT COLLECTED SPECIMEN 12/30 @2300 Comments: OVA AND PARASITES EXAM, ROUTINEThese results were obtainedusing wet preparation(s) andtrichrome stained smear. Thistest does not include testingfor Crytosporidium parvum,Cyclospora, or Microsporidia.__ TESTING PERFORMED AT [facility]. ORIGINAL REPORT ONFILE IN LAB CONTAINS ADDITIONAL TEST SITE INFORMATION. OVA/ PARASITES EXAM NO OVA, CYSTS, OR PARASITES FOUND. :45 OCCULT BLD,iFOB See Note (Abnormal) Comments: PT COLLECTED SPECIMEN 12/30 @2300 Comments: OCCULT BLOOD POSITIVE :45 WBC,STOOL See Note (Normal) Comments: PT COLLECTED SPECIMEN 12/30 @2300 Comments: FECAL WBCs NONE SEEN :10 PREMA 46 U/L (Normal) Comments: COMMENTS: IV THERAPY DRAWING Range: 25-115 :10 LIPASE 199 U/L (Normal) Comments: COMMENTS: IV THERAPY DRAWING Range: 70-290 Comments: Please note:LIPASE revised reference range effective 09. 66-Lvo-976723:10 RENAL Comments: COMMENTS: IV THERAPY DRAWING CO2 28.0 mmol/L (Normal) Range: 21.0-32.0 ALB 3.2 g/dL (Abnormal) Range: 3.4-5.0 CA 8.9 mg/dL (Normal) Range: 8.5-10.1 CL 95 mmol/L (Abnormal) Range: 98-107 K 4.1 mmol/L (Normal) Range: 3.5-5.1 NA 132 mmol/L (Abnormal) Range: 136-145 PHOS 4.1 mg/dL (Normal) Range: 2.5-4.9 BUN 7 mg/dL (Normal) Range: 7-18 BUN/CRE 11.7 {RATIO} (Normal) Range: 10-20 CREAT,SERUM 0.6 mg/dL (Normal) Range: 0.6-1.0 EST GFR 111 mL/min (Normal) EST GFR - AA 135 mL/min (Normal) GLU 102 mg/dL (Normal) Range: 70-110 32-Vzh-074204:37 OCCULT BLOOD FECES SCREEN (70983) OCCULT BLOOD FECES SCREEN negative (Normal) 06-Ctx-131365:03 CBCD,SMEAR DIFF PLT EST SeeNote (Normal) Comments: Result: ADEQUATE RED CELL MORPH SeeNote {NORMAL} (Normal) Comments: Result: NORM C+C ABSOLUTE NEUT 2.0 3/uL (Normal) Range: 2.0-7.7 CELLS COUNTED 100 (Normal) EOS 1 % (Normal) Range: 0-5 LYMPH 41 % (Normal) Range: 19-41 MONOCYTE 10 % (Normal) Range: 0-10 PLT 251 K/mm3 (Normal) Range: 150-450 RDW 13.8 % (Normal) Range: 11.6-14.6 SEGS 48 % (Normal) Range: 47-70 HCT 35.5 % (Abnormal) Range: 37-47 HGB 12.4 g/dL (Normal) Range: 12.0-16.0 MCH 31.7 pg (Normal) Range: 27.0-32.0 MCHC 34.8 g/dL (Normal) Range: 32-36 MCV 90.9 fL (Normal) Range: 81-99 RBC 3.90 {M/mm3} (Abnormal) Range: 4.2-5.4 WBC 4.2 K/mm3 (Abnormal) Range: 4.4-11.0 :03 COMP METABOLIC CL 96 mmol/L (Abnormal) Range: 98-107 CO2 28.0 mmol/L (Normal) Range: 21.0-32.0 GAP 11 (Normal) Range: 5-15 K 4.5 mmol/L (Normal) Range: 3.5-5.1 NA 135 mmol/L (Abnormal) Range: 136-145 A/G 1.1 {RATIO} (Normal) Range: 0.9-2.4 ALB 3.4 g/dL (Normal) Range: 3.4-5.0 ALK P 75 U/L (Normal) Range: 50-136 ALT 28 U/L (Normal) Range: 12-78 AST 14 U/L (Abnormal) Range: 15-37 BUN 13 mg/dL (Normal) Range: 7-18 BUN/CRE 16.3 {RATIO} (Normal) Range: 10-20 CA 8.7 mg/dL (Normal) Range: 8.5-10.1 CREAT,SERUM 0.8 mg/dL (Normal) Range: 0.6-1.0 EST GFR 80 mL/min (Normal) EST GFR - AA 97 mL/min (Normal) GLOB 3.2 g/dL (Normal) Range: 2.7-4.2 T BILI 0.30 mg/dL (Normal) Range: 0.00-1.00 T PROT 6.6 g/dL (Normal) Range: 6.4-8.2 GLU 94 mg/dL (Normal) Range: 70-110 45-Qpz-192130:03 FERRITIN 12 ng/mL (Normal) Range: 8-252 :03 IRON 128 ug/dL (Normal) Range: 50-170 46-Ntr-052856:03 LIPID LDL 86 mg/dL (Normal) Range: 0-130 VLDL 18 mg/dL (Normal) Range: 5-40 HDL 79 mg/dL (Normal) Comments: Reference RangeHDL <40 mg/dL Low HDL CholesterolHDL >or= 60 mg/dL High HDL Cholesterol CHOL 183 mg/dL (Normal) Comments: <200 mg/dL Jirxgqjbt908-647 mg/dL Borderline>240 mg/dL High Risk TRIG 88 mg/dL (Normal) Comments: Serum Triglycerides Reference IntervalNormal <150 mg/dLBorderline high 150 - 199 mg/dLHigh 200 - 499 mg/ dLVery High > or = 500 mg/dL 53-Cqr-869751:03 VITAMIN B12 342 pg/mL (Normal) Range: 254-1320 10-Apr-20090:00 FLU A+B DIRECT See Note (Normal) Comments: Negative test results should be confirmed by culture. Order Rapid Viral Culture for Influenzae A+B ([id number]) if clinically indicated. INFLUENZA ANTIGEN,DIRECT Presumptive NEGATIVE for Influenza A/B Antigen (See Note) 43-Efr-906507:43 CHEST, PA AND LATERAL Radiology Report See Note (Normal) Comments: Exam Number: [id number] CLINICAL DATAInterstitial lung disease, cough. CHEST PA and lateral views of the chest in comparison to the previousexamination done on April 22, 2008, reveal normal sized heart andslightly prominent bronchovascular markings. There are no pneumonicinfiltrates or pleural effusion. The mediastinum and bony structuresare unremarkable, except for minimal degenerative hypertrophi c spursfrom upper and middle dorsal vertebral bodies. There is an infusioncatheter in place. There are several surgical clips in the left upperabdomen. IMPRESSIONNo evidence of pneumonia. Possible bronchitis. Reported By: FLORINDA CAMPOS 80-Bdb-034401:45 L/S SPINE,MIN 4 VIEWS Radiology Report See Note (Normal) Comments: Exam Number: [id number] CLINICAL PROBLEMLow back pain post fall. LUMBAR SPINEFrontal, both oblique, lateral and spot radiographs. FINDINGSThere are multiple metallic suture lines and damián within theab domen. There are 5 lumbar-type vertebral segments. There is some reductionin height of the L2-3 and L3-4 intervertebral discs and perhaps eventhe L1-2 intervertebral disc. The remaining intervertebr al discs areunremarkable. There is severe facet arthrosis, however, at L4- 5 andL5-S1 bilaterally. There is no evidence of spondylolysis, spondylolisthesis, fracture orbone destruction. IMPRESSIONMultil evel degenerative disc disease and spondylosis. Reported By: AROLDO TILLMAN M.D. 01-Szz-236848:44 KNEE,4 OR MORE VIEWS Radiology Report See Note (Normal) Comments: Exam Number: [id number] CLINICAL PROBLEMPain both knees post fall. FOUR VIEWS RIGHT KNEE FINDINGSThere is juxtaarticular spur formation at the medial compartment andto a very minimal extent the patellofe moral compartment. There is noevidence of fracture, bone destruction or other significant osseousabnormality. A small joint effusion cannot be ruled out but is notspecifically indicated. IMPRESSIONMil d osteoarthritic changes medial and patellofemoral compartments. Reported By: AROLDO TILLMAN M.D. 07-Wvs-483000:44 KNEE,4 OR MORE VIEWS Radiology Report See Note (Normal) Comments: Exam Number: [id number] CLINICAL PROBLEMLeft knee pain status post fall. FOUR VIEWS LEFT KNEE FINDINGSThere is reduction in thickness of articular cartilage in the medialcompartment. There i s juxtaartic ular bone spur formation in all 3compartments but very minimal in the lateral and patellofemoralcompartments. There is very mild subluxation of the patellalaterally. A joint effusion could not be rule d out. There is noevidence of fracture or other significant abnormality. IMPRESSION1. Tricompartment osteoarthritis most severe medially.2. Possible patellar tracking problem. Reported By: AROLDO TILLMAN M.D. FLU A+B DIRECT See Note (Normal) Comments: HOLD IN OE UNTIL SPECIMEN COLLECTED? (Y/N)* NSPECIMEN SOURCE: SWAB FOR FLU 6:25 Comments: Negative test results should be confirmed by culture. Order Rapid Viral Culture for Influenzae A+B ([id number]) if clinically indicated. INFLUENZA ANTIGEN,DIRECT Presumptive NEGATIVE for Influenza A/B Antigen (See Note) 12-Sep-2008 PREMA 66 U/L (Normal) Range: 25-115 12:11 70-Xbr-556137:11 CBCD BASO% 0.2 % (Normal) Range: 0-1 EO% 0.6 % (Normal) Range: 0-5 LY% 24.7 % (Normal) Range: 19-41 MCH 31.9 pg (Normal) Range: 27.0-32.0 MCHC 35.0 g/dL (Normal) Range: 32-36 MCV 91.1 fL (Normal) Range: 81-99 MONO% 5.1 % (Normal) Range: 0-10 MPV 8.2 fL (Normal) Range: 6.5-12.0 NEUT% 69.4 % (Normal) Range: 47-70 PLT 295 K/mm3 (Normal) Range: 150-450 RDW 13.9 % (Normal) Range: 11.6-14.6 HCT 37.6 % (Normal) Range: 37-47 HGB 13.2 g/dL (Normal) Range: 12.0-16.0 RBC 4.13 {M/mm3} (Abnormal) Range: 4.2-5.4 WBC 4.2 K/mm3 (Abnormal) Range: 4.4-11.0 31-Bae-003375:11 COMP METABOLIC A/G 1.2 {RATIO} (Normal) Range: 0.9-2.4 ALB 3.8 g/dL (Normal) Range: 3.4-5.0 ALK P 85 U/L (Normal) Range: 50-136 ALT 30 U/L (Normal) Range: 30-65 AST 22 U/L (Normal) Range: 15-37 BUN 9 mg/dL (Normal) Range: 7-18 BUN/CRE 11.3 {RATIO} (Normal) Range: 10-20 CA 9.1 mg/dL (Normal) Range: 8.5-10.1 CL 97 mmol/L (Abnormal) Range: 98-107 CO2 27.7 mmol/L (Normal) Range: 21.0-32.0 CREAT,SERUM 0.8 mg/dL (Normal) Range: 0.6-1.0 EST GFR 80 mL/min (Normal) EST GFR - AA 97 mL/min (Normal) GAP 4 (Abnormal) Range: 5-15 GLOB 3.1 g/dL (Normal) Range: 2.7-4.2 GLU 110 mg/dL (Normal) Range: 70-110 Comments: Fasting Glucose result from 110 to <126 mg/dL suggests IMPAIRED HOMEOSTASIS per A.D.A. criteria. K 4.3 mmol/L (Normal) Range: 3.5-5.1 NA 129 mmol/L (Abnormal) Range: 136-145 T BILI 0.27 mg/dL (Normal) Range: 0.00-1.00 T PROT 6.9 g/dL (Normal) Range: 6.4-8.2 52-Sgi-642169:11 ESR SED RATE 3 mm/h (Normal) Range: 0-30 90-Rsf-784201:11 LIPASE 229 U/L (Normal) Range: 114-286 :11 LIPID CHOL 180 mg/dL (Normal) Comments: <200 mg/dL Desirable 200-240 mg/dL Borderline >240 mg/dL High Risk HDL 82 mg/dL (Normal) Comments: Reference Range HDL <40 mg/dL Low HDL Cholesterol HDL >or= 60 mg/dL High HDL Cholesterol LDL 79 mg/dL (Normal) Range: 0-130 TRIG 93 mg/dL (Normal) Comments: Serum Triglycerides Reference Interval Normal <150 mg/dL Borderline high 150 - 199 mg/dL High 200 - 499 mg/dL Very High > or = 500 mg/dL VLDL 19 mg/dL (Normal) Range: 5-40 :11 MG 1.9 mg/dL (Normal) Range: 1.5-2.2 :00 CBCD BASO% 0.3 % (Normal) Range: 0-1 EO% 5.2 % (Abnormal) Range: 0-5 HCT 35.2 % (Abnormal) Range: 37-47 HGB 12.2 g/dL (Normal) Range: 12.0-16.0 LY% 26.5 % (Normal) Range: 19-41 MCH 31.1 pg (Normal) Range: 27.0-32.0 MCHC 34.7 g/dL (Normal) Range: 32-36 MCV 89.7 fL (Normal) Range: 81-99 MONO% 5.1 % (Normal) Range: 0-10 MPV 7.4 fL (Normal) Range: 6.5-12.0 NEUT% 62.9 % (Normal) Range: 47-70 PLT 344 K/mm3 (Normal) Range: 150-450 RBC 3.93 {M/mm3} (Abnormal) Range: 4.2-5.4 RDW 13.2 % (Normal) Range: 11.6-14.6 WBC 4.9 K/mm3 (Normal) Range: 4.4-11.0 :00 COMP METABOLIC A/G 1.2 {RATIO} (Normal) Range: 0.9-2.4 ALB 3.7 g/dL (Normal) Range: 3.4-5.0 ALK P 86 U/L (Normal) Range: 50-136 ALT 28 U/L (Abnormal) Range: 30-65 AST 19 U/L (Normal) Range: 15-37 BUN 11 mg/dL (Normal) Range: 7-18 BUN/CRE 15.7 {RATIO} (Normal) Range: 10-20 CA 9.0 mg/dL (Normal) Range: 8.5-10.1 CL 99 mmol/L (Normal) Range: 98-107 CO2 28.4 mmol/L (Normal) Range: 21.0-32.0 CREAT,SERUM 0.7 mg/dL (Normal) Range: 0.6-1.0 GAP 8 (Normal) Range: 5-15 GLOB 3.0 g/dL (Normal) Range: 2.7-4.2 GLU 126 mg/dL (Abnormal) Range: 70-110 Comments: Fasting Glucose result greater than or equal to 126 mg/dL suggests DIABETES MELLITUS per A.D.A. criteria. K 4.7 mmol/L (Normal) Range: 3.5-5.1 NA 135 mmol/L (Abnormal) Range: 136-145 T BILI 0.47 mg/dL (Normal) Range: 0.00-1.00 T PROT 6.7 g/dL (Normal) Range: 6.4-8.2 99-Zfy-195155:00 METHYLM [id number] 330 nmol/L (Normal) Range: 73-376 Comments: The reference range for methylmalonic acid has been set at+3sd above the mean for healthy blood bank donors. In theclinical assessment of patients with megaloblastic anemiasa cutoff of +3sd provides gre ater specificity in thediagnosis of the vitamin deficiency states, despite thesacrifice of some sensitivity.Performed At: [address] [id number] 2-Clz-773953:55 Lower Respiratory Culture Comments: Clinical Information: SRC:SP PERFORMED BY: [facility] [id number] Lower Respiratory Culture Final report (Normal) Result 1 RRF (Normal) Comments: Routine respiratory rajwinder :3 PREMA 62 U/L (Normal) Range: 25-115 6 97-Puh-37484:36 DESIRAE-D 141679 DESIRAE-DIRECT 23 AU/mL (Normal) Range: 0-99 Comments: Negative <100 Equivocal 100 - 120 Positive >120 :36 C-REACTIVE PROT 25.51 mg/L (Abnormal) Range: 0.0-6.0 Comments: Test performed using the Dimension C-Reactive ProteinExtended Range assay method. This assay meets the AHA/CDC 2003 recommendations fordetermining patients at high risk for cardiovasculardisease. Reference: High risk CRP >3.0 mg/L :36 CBCD,SMEAR DIFF ANISO 1+ (Normal) CELLS COUNTED 100 (Normal) EOS 5 % (Normal) Range: 0-5 HCT 32.4 % (Abnormal) Range: 37-47 HGB 11.3 g/dL (Abnormal) Range: 12.0-16.0 LYMPH 37 % (Normal) Range: 19-41 MCH 30.7 pg (Normal) Range: 27.0-32.0 MCHC 34.9 g/dL (Normal) Range: 32-36 MCV 87.8 fL (Normal) Range: 81-99 MONOCYTE 9 % (Normal) Range: 0-10 PLT 287 K/mm3 (Normal) Range: 150-450 PLT EST SeeNote (Normal) Comments: Result: ADEQUATE RBC 3.69 {M/mm3} (Abnormal) Range: 4.2-5.4 RDW 12.7 % (Normal) Range: 11.6-14.6 RED CELL MORPH SeeNote {NORMAL} (Normal) Comments: Result: NORM C+C SEGS 49 % (Normal) Range: 47-70 WBC 4.9 K/mm3 (Normal) Range: 4.4-11.0 :36 COMP METABOLIC A/G 1.0 {RATIO} (Normal) Range: 0.9-2.4 ALB 3.2 g/dL (Abnormal) Range: 3.4-5.0 ALK P 86 U/L (Normal) Range: 50-136 ALT 33 U/L (Normal) Range: 30-65 AST 21 U/L (Normal) Range: 15-37 BUN 12 mg/dL (Normal) Range: 7-18 BUN/CRE 13.3 {RATIO} (Normal) Range: 10-20 CA 8.8 mg/dL (Normal) Range: 8.5-10.1 CL 105 mmol/L (Normal) Range: 98-107 CO2 30.6 mmol/L (Normal) Range: 21.0-32.0 CREAT,SERUM 0.9 mg/dL (Normal) Range: 0.6-1.0 GAP 4 (Abnormal) Range: 5-15 GLOB 3.2 g/dL (Normal) Range: 2.7-4.2 GLU 92 mg/dL (Normal) Range: 70-110 K 4.2 mmol/L (Normal) Range: 3.5-5.1 NA 140 mmol/L (Normal) Range: 136-145 T BILI 0.19 mg/dL (Normal) Range: 0.00-1.00 T PROT 6.4 g/dL (Normal) Range: 6.4-8.2 :36 ESR SED RATE 17 mm/h (Normal) Range: 0-30 :36 LIPASE 324 U/L (Abnormal) Range: 114-286 :36 RA LATEX 6502 9.4 {IU/mL} (Normal) Range: 0.0-13.9 Comments: Performed At: [address] [id number] :36 TSH 1.76 {uIU/mL} (Normal) Range: 0.34-4.82 :29 HgA1C , Office (31571) HgA1C , Office 5.5 % (Normal) Range: 4.6 - 7.1 :29 Blood Glucose , Office (74376) Blood Glucose , Office 108 (Normal) :51 CHEST, PA AND LATERAL Radiology Report See Note (Normal) Comments: Exam Number: [id number] PA AND LATERAL CHEST HISTORY Being done for followup pneumonia. Cardiac configuration is normal. No acute infiltrate, effusion, orpneumothorax is identified. There is mild over inflation of the lungs.There is a port noted from the right anterior chest. No abnormalityis noted in the catheter as demonstrated. IMPRESSION1. No acute infiltrate. 2. The area of increased density in the right middle lobe post bronchoscopy on September 06, 2007 has cleared. IMPRESSIONNo acute infiltrate. Reported By: JERARDO BEAULIEU M.D. :57 Rapid Flu (73814 x 2) INFLUENZA IMMUNOASSY DIRECT OPTICAL OBSERV negative (Normal) Comments: aw 89-Puy-589353:57 LIPID CHOL 186 mg/dL (Normal) Comments: <200 mg/dL Desirable 200-240 mg/dL Borderline >240 mg/dL High Risk HDL 80 mg/dL (Normal) Comments: Reference Range HDL <40 mg/dL Low HDL Cholesterol HDL >or= 60 mg/dL High HDL Cholesterol LDL 63 mg/dL (Normal) Range: 0-130 TRIG 213 mg/dL (Abnormal) Comments: Serum Triglycerides Reference Interval Normal <150 mg/dL Borderline high 150 - 199 mg/dL High 200 - 499 mg/dL Very High > or = 500 mg/dL VLDL 43 mg/dL (Abnormal) Range: 5-40 :57 VITAMIN B12 370 pg/mL (Normal) Range: 211-911 :57 VITD 1,25 37993 69.6 (Normal) Comments: Performed At: [address] [id number] 62-Aax-954073:47 CHEST, PA AND LATERAL Radiology Report See Note (Normal) Comments: Exam Number: [id number] PA AND LATERAL CHEST HISTORY Being done for fever, congestion, shortness of breath. There is a perihilar infiltrate in the left side that is new from theprevious study of February 24, 2007. No effusion or pneumothorax isnoted. There is mild overinflation of the lungs. There is a portnoted from the right anterior chest. Tip of the catheter is in thesuperior vena cava. IMPRESSIO NLeft perihilar infiltrate. Reported By: JERARDO BEAULIEU M.D. 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 Scans were obtained at 2.5-mm intervals from the lung apices to theadrenals without intravenous contrast enhancement. The currentstudy is compared to the examination of February 01, 2007. The previous demonstrated a focal area of ground glass opacity in theright lower lobe. No area of ground glass opacity is seen at thatloca tion on the current study. However, there are areas of groundglass opacity now identified in the right upper lobe and right middlelobe. The extent of the ground glass density is significantly greatert biggs it was on the previous examination. Ground glass opacity can beassociated with extensive allergic alveolitis, sarcoidosis,cryptogenic organizing pneumonia, DIP, UIP. The degree of groundglass opac ity identified on the current study is nonspecific. Itrepresents a change from the examination of February 01, 2007. Sincethere is a history of asthma provided, this may represent allergicalveolitis. Cl inical correlation is needed. No other parenchymaldensities are seen within the lungs. There is no pleural effusionsidentified. There is an indwelling central venous port. No hilar,mediastinal or axi llary adenopathy is identified on the noncontrastimages. What is seen of the liver is within normal limits. There are surgicalclips in the gallbladder fossa. There are multiple surgical clipsseen at the level of the gastroesophageal junction. There is only asmall area of stomach present compatible with a history of gastro-jejunostomy. Adrenal lesion is identified. IMPRESSION1. The focal area o f ground glass opacity seen in the right lowerlobe on the previous examination of February 01, 2007, is not identifiedin that location. 2. There is now ground glass opacity in the right upper lobe l[place] ght middle lobe. There are packets of ground glass opacity seenscattered in the right upper lobe. There are patches of ground glassopacity throughout the right middle lobe. 3. Differential consider ations are discussed above. Reported By: NILSA MAGAÑA M.D. PREMA 73 U/L (Normal) Range: 25-115 :01 61-Scd-732662:01 CBCD BASO% 0.3 % (Normal) Range: 0-1 EO% 1.1 % (Normal) Range: 0-5 HCT 36.2 % (Abnormal) Range: 37-47 HGB 12.5 g/dL (Normal) Range: 12.0-16.0 LY% 36.5 % (Normal) Range: 19-41 MCH 31.2 pg (Normal) Range: 27.0-32.0 MCHC 34.5 g/dL (Normal) Range: 32-36 MCV 90.3 fL (Normal) Range: 81-99 MONO% 8.4 % (Normal) Range: 0-10 MPV 8.4 fL (Normal) Range: 6.5-12.0 NEUT% 53.7 % (Normal) Range: 47-70 PLT 315 K/mm3 (Normal) Range: 150-450 RBC 4.01 {M/mm3} (Abnormal) Range: 4.2-5.4 RDW 14.6 % (Normal) Range: 11.6-14.6 WBC 4.7 K/mm3 (Normal) Range: 4.4-11.0 83-Wcc-127916:01 COMP METABOLIC A/G 1.1 {RATIO} (Normal) Range: 0.9-2.4 ALB 3.5 g/dL (Normal) Range: 3.4-5.0 ALK P 91 U/L (Normal) Range: 50-136 ALT 31 [iU]/L (Normal) Range: 30-65 AST 18 U/L (Normal) Range: 15-37 BUN 12 mg/dL (Normal) Range: 7-18 BUN/CRE 15.0 {RATIO} (Normal) Range: 10-20 CA 8.9 mg/dL (Normal) Range: 8.5-10.1 CL 102 mmol/L (Normal) Range: 98-107 CO2 29.1 mmol/L (Normal) Range: 21.0-32.0 Comments: Please Note Reference Interval Change CREAT,SERUM 0.8 mg/dL (Normal) Range: 0.6-1.0 GAP 7 (Normal) Range: 5-15 GLOB 3.2 g/dL (Normal) Range: 2.7-4.2 Comments: Please Note Reference Interval Change GLU 88 mg/dL (Normal) Range: 70-110 K 4.2 mmol/L (Normal) Range: 3.5-5.1 NA 138 mmol/L (Normal) Range: 136-145 T BILI 0.30 mg/dL (Normal) Range: 0.00-1.00 T PROT 6.7 g/dL (Normal) Range: 6.4-8.2 :01 LIPASE 372 U/L (Abnormal) Range: 114-286 :01 LIPID CHOL 190 mg/dL (Normal) Comments: <200 mg/dL Desirable 200-240 mg/dL Borderline >240 mg/dL High Risk HDL 87 mg/dL (Normal) Comments: Reference Range HDL <40 mg/dL Low HDL Cholesterol HDL >or= 60 mg/dL High HDL Cholesterol LDL 88 mg/dL (Normal) Range: 0-130 TRIG 74 mg/dL (Normal) Comments: Serum Triglycerides Reference Interval Normal <150 mg/dL Borderline high 150 - 199 mg/dL High 200 - 499 mg/dL Very High > or = 500 mg/dL VLDL 15 mg/dL (Normal) Range: 5-40 39-Tsw-122182:40 BC No growth in 5 days. Comments: COMMENTS: ROOM 12 (Normal) 96-Vqy-489592:20 COMPLETE UA Comments: COMMENTS: ROOM 12HOLD IN OE UNTIL SPECIMEN COLLECTED? (Y/N)* N BACTERIA 0 SEEN {/hpf} (Normal) BILIRUBIN URINE SeeNote (Normal) Comments: Result: Negative CLARITY Clear (Normal) COLOR Yellow (Normal) GLUCOSE, UR SeeNote (Normal) Comments: Result: Negative KETONE UR SeeNote mg/dL (Normal) Comments: Result: Negative LEUK ESTERASE SeeNote (Normal) Comments: Result: Negative MUCUS, URINE 0 SEEN {/hpf} (Normal) NITRITE UR SeeNote (Normal) Comments: Result: Negative OCCULT BLOOD-UR SeeNote (Normal) Comments: Result: Negative pH UR 6.5 (Normal) Range: 5.0-8.0 PROT DIPSTX SeeNote (Normal) Comments: Result: Negative RBC-UA 0 SEEN {/hpf} (Normal) Range: 0-5 SP.GR. DIPSTX 1.010 (Normal) Range: 1.002-1.030 SQUAM EPI 0 SEEN {/hpf} (Normal) Range: 5-10 UROBILI 0.2 EU/dl (Normal) Range: 0.2 - 1.0 WBC 0 SEEN {/hpf} (Normal) Range: 0-5 12-Rpt-344861:10 BMP Comments: COMMENTS: ROOM 12 BUN 8 mg/dL (Normal) Range: 7-18 BUN/CRE 11.4 {RATIO} (Normal) Range: 10-20 CA 8.5 mg/dL (Normal) Range: 8.5-10.1 CL 99 mmol/L (Normal) Range: 98-107 CO2 24.5 mmol/L (Normal) Range: 22.0-29.0 CREAT,SERUM 0.7 mg/dL (Normal) Range: 0.6-1.0 GAP 9 (Normal) Range: 5-15 GLU 118 mg/dL (Abnormal) Range: 70-110 Comments: Fasting Glucose result from 110 to <126 mg/dL suggests IMPAIRED HOMEOSTASIS per A.D.A. criteria. K 4.1 mmol/L (Normal) Range: 3.5-5.1 NA 132 mmol/L (Abnormal) Range: 136-145 [id number] CBCD Comments: COMMENTS: ROOM 12 BASO% 0.2 % (Normal) Range: 0-1 EO% 0.9 % (Normal) Range: 0-5 HCT 33.3 % (Abnormal) Range: 37-47 HGB 11.8 g/dL (Abnormal) Range: 12.0-16.0 HYPOCHROMASIA 1+ (Normal) LY% 8.3 % (Abnormal) Range: 19-41 MCH 31.9 pg (Normal) Range: 27.0-32.0 MCHC 35.5 g/dL (Normal) Range: 32-36 MCV 89.8 fL (Normal) Range: 81-99 MONO% 4.8 % (Normal) Range: 0-10 MPV 7.9 fL (Normal) Range: 6.5-12.0 NEUT% 85.8 % (Abnormal) Range: 47-70 PLT 269 K/mm3 (Normal) Range: 150-450 PLT EST SeeNote (Normal) Comments: Result: ADEQUATE RBC 3.70 {M/mm3} (Abnormal) Range: 4.2-5.4 RDW 13.2 % (Normal) Range: 11.6-14.6 SMEAR COMMENT SCANNED (Normal) WBC 10.6 K/mm3 (Normal) Range: 4.4-11.0 [id number] LIPASE 212 U/L (Normal) Comments: COMMENTS: ROOM 12 Range: 114-286 [id number] LIVER Comments: COMMENTS: ROOM 12 ALB 3.4 g/dL (Normal) Range: 3.4-5.0 ALK P 84 U/L (Normal) Range: 50-136 ALT 30 [iU]/L (Normal) Range: 30-65 AST 20 U/L (Normal) Range: 15-37 D BILI 0.13 mg/dL (Normal) Range: 0.00-0.30 T BILI 0.40 mg/dL (Normal) Range: 0.00-1.00 T PROT 6.3 g/dL (Abnormal) Range: 6.4-8.2 :59 CBCD BASO% 0.3 % (Normal) Range: 0-1 EO% 7.9 % (Abnormal) Range: 0-5 HCT 32.8 % (Abnormal) Range: 37-47 HGB 11.3 g/dL (Abnormal) Range: 12.0-16.0 LY% 40.1 % (Normal) Range: 19-41 MCH 31.5 pg (Normal) Range: 27.0-32.0 MCHC 34.3 g/dL (Normal) Range: 32-36 MCV 91.7 fL (Normal) Range: 81-99 MONO% 9.2 % (Normal) Range: 0-10 MPV 8.4 fL (Normal) Range: 6.5-12.0 NEUT% 42.5 % (Abnormal) Range: 47-70 PLT 261 K/mm3 (Normal) Range: 150-450 RBC 3.57 {M/mm3} (Abnormal) Range: 4.2-5.4 RDW 13.9 % (Normal) Range: 11.6-14.6 WBC 3.8 K/mm3 (Abnormal) Range: 4.4-11.0 :59 COMP METABOLIC A/G 1.1 {RATIO} (Normal) Range: 0.9-2.4 ALB 3.2 g/dL (Abnormal) Range: 3.4-5.0 ALK P 72 U/L (Normal) Range: 50-136 ALT 28 [iU]/L (Abnormal) Range: 30-65 AST 19 U/L (Normal) Range: 15-37 BUN 12 mg/dL (Normal) Range: 7-18 BUN/CRE 17.1 {RATIO} (Normal) Range: 10-20 CA 8.3 mg/dL (Abnormal) Range: 8.5-10.1 CL 102 mmol/L (Normal) Range: 98-107 CO2 26.8 mmol/L (Normal) Range: 22.0-29.0 CREAT,SERUM 0.7 mg/dL (Normal) Range: 0.6-1.0 GAP 7 (Normal) Range: 5-15 GLOB 3.0 g/dL (Normal) Range: 2.3-3.5 GLU 86 mg/dL (Normal) Range: 70-110 K 4.1 mmol/L (Normal) Range: 3.5-5.1 NA 136 mmol/L (Normal) Range: 136-145 T BILI 0.27 mg/dL (Normal) Range: 0.00-1.00 T PROT 6.2 g/dL (Abnormal) Range: 6.4-8.2 :59 PRO TIME INR 1.1 (Normal) PROTIME 13.4 s (Abnormal) Range: 10.6-13.2 :59 PTT 36.7 s (Abnormal) Range: 24.6-36.6 :07 ALT 29 [iU]/L (Abnormal) Range: 30-65 :07 DESIRAE-D [id number] DESIRAE-DIRECT 24 U/mL (Normal) Range: 0-99 Comments: Negative <100 Equivocal 100 - 120 Positive >120Performed At: [facility] [id number] [place], [place] [id number] At: [facility] [address] [id number] :07 See Note (Normal) Comments: CHECK BLOOD CULTURE FOR FUNGUS Comments: NO GROWTH IN 30 DAYSNo yeast or fungus isolated. :07 C-REACTIVE PROT 5.22 mg/L (Normal) Range: 0.0-6.0 Comments: Test performed using the Dimension C-Reactive ProteinExtended Range assay method. This assay meets the AHA/CDC 2003 recommendations fordetermining patients at high risk for cardiovasculardisease. Reference: High risk CRP >3.0 mg/L :07 CBC HCT 32.3 % (Abnormal) Range: 37-47 HGB 11.0 g/dL (Abnormal) Range: 12.0-16.0 MCH 30.8 pg (Normal) Range: 27.0-32.0 MCHC 34.1 g/dL (Normal) Range: 32-36 MCV 90.4 fL (Normal) Range: 81-99 PLT 330 K/mm3 (Normal) Range: 150-450 RBC 3.57 {M/mm3} (Abnormal) Range: 4.2-5.4 RDW 14.0 % (Normal) Range: 11.6-14.6 WBC 5.8 K/mm3 (Normal) Range: 4.4-11.0 :07 HISTOPL [id number] SeeNote (Normal) Comments: Result: Negative :07 RA LATEX 6502 8.6 {IU/mL} (Normal) Range: 0.0-13.9 :24 CHEST, PA AND LATERAL Radiology Report See Note (Normal) Comments: Exam Number: [id number] CHEST, PA AND LATERAL HISTORYFever and cough. COMPARISONNone. FINDINGSThere is an indwelling [id number]-[id number] on the right side particularlyin the SVC. The heart, aorta, and media stinum are normal. Lungs areclear. There is no evidence of consolidation, effusion, congestion,or nodules. There are clips in the region of the esophageal hiatus. IMPRESSIONClear lungs. Reported By: AN YOUNG M.D. [id number]-Xxj-[id number]:0 BC No growth in 5 days. 0 (Normal) :5 PREMA 71 U/L (Normal) Range: 25-115 0 :5 BC No growth in 5 days. 0 (Normal) :50 CBCD,SMEAR DIFF BAND 2 % (Normal) Range: 0-5 CELLS COUNTED 100 (Normal) EOS 6 % (Abnormal) Range: 0-5 HCT 34.3 % (Abnormal) Range: 37-47 HGB 12.0 g/dL (Normal) Range: 12.0-16.0 LYMPH 38 % (Normal) Range: 19-41 MCH 31.3 pg (Normal) Range: 27.0-32.0 MCHC 35.0 g/dL (Normal) Range: 32-36 MCV 89.5 fL (Normal) Range: 81-99 MONOCYTE 2 % (Normal) Range: 0-10 PLT 391 K/mm3 (Normal) Range: 150-450 PLT EST SeeNote (Normal) Comments: Result: ADEQUATE RBC 3.83 {M/mm3} (Abnormal) Range: 4.2-5.4 RDW 14.3 % (Normal) Range: 11.6-14.6 RED CELL MORPH SeeNote {NORMAL} (Normal) Comments: Result: NORM C&C SEGS 52 % (Normal) Range: 47-70 WBC 6.1 K/mm3 (Normal) Range: 4.4-11.0 :50 COMP METABOLIC A/G 0.9 {RATIO} (Normal) Range: 0.9-2.4 ALB 3.1 g/dL (Abnormal) Range: 3.4-5.0 ALK P 90 U/L (Normal) Range: 50-136 ALT 31 [iU]/L (Normal) Range: 30-65 AST 17 U/L (Normal) Range: 15-37 BUN 12 mg/dL (Normal) Range: 7-18 BUN/CRE 15.0 {RATIO} (Normal) Range: 10-20 CA 8.3 mg/dL (Abnormal) Range: 8.5-10.1 CL 101 mmol/L (Normal) Range: 98-107 CO2 29.3 mmol/L (Abnormal) Range: 22.0-29.0 CREAT,SERUM 0.8 mg/dL (Normal) Range: 0.6-1.0 GAP 7 (Normal) Range: 5-15 GLOB 3.3 g/dL (Normal) Range: 2.3-3.5 GLU 92 mg/dL (Normal) Range: 70-110 K 4.0 mmol/L (Normal) Range: 3.5-5.1 NA 137 mmol/L (Normal) Range: 136-145 T BILI 0.22 mg/dL (Normal) Range: 0.00-1.00 T PROT 6.4 g/dL (Normal) Range: 6.4-8.2 :50 CULTURE, URINE URINE CULTURE See Note {CFU/mL} Comments: COLONY COUNT 50,000- 80,000 ORGANISM 1: MIXED GRAM POSITIVE ORGANISMS (Normal) :50 LIPASE 290 U/L (Abnormal) Range: 114-286 :50 ROUTINE UA BILIRUBIN URINE SeeNote (Normal) Comments: Result: NEGATIVE CLARITY CLEAR (Normal) COLOR YELLOW (Normal) GLUCOSE, UR SeeNote (Normal) Comments: Result: NEGATIVE KETONE UR TRACE mg/dL (Abnormal) LEUK ESTERASE SeeNote (Normal) Comments: Result: NEGATIVE NITRITE UR SeeNote (Normal) Comments: Result: NEGATIVE OCCULT BLOOD-UR SeeNote (Abnormal) Comments: Result: TRACE-LYSED pH UR 5.5 (Normal) Range: 5.0-8.0 PROT DIPSTX SeeNote (Normal) Comments: Result: NEGATIVE SP.GR. DIPSTX 1.020 (Normal) Range: 1.002-1.030 UROBILI 0.2 EU/dl (Normal) Range: 0.2 - 1.0 :35 BC No growth in 5 days. (Normal) :35 BC No growth in 5 days. (Normal) :35 CBCD BASO% 0.1 % (Normal) Range: 0-1 EO% 3.9 % (Normal) Range: 0-5 HCT 33.9 % (Abnormal) Range: 37-47 HGB 11.8 g/dL (Abnormal) Range: 12.0-16.0 LY% 27.3 % (Normal) Range: 19-41 MCH 30.8 pg (Normal) Range: 27.0-32.0 MCHC 34.8 g/dL (Normal) Range: 32-36 MCV 88.5 fL (Normal) Range: 81-99 MONO% 3.7 % (Normal) Range: 0-10 MPV 7.9 fL (Normal) Range: 6.5-12.0 NEUT% 65.0 % (Normal) Range: 47-70 PLT 300 K/mm3 (Normal) Range: 150-450 RBC 3.84 {M/mm3} (Abnormal) Range: 4.2-5.4 RDW 13.5 % (Normal) Range: 11.6-14.6 WBC 10.2 K/mm3 (Normal) Range: 4.4-11.0 :35 COMP METABOLIC A/G 1.2 {RATIO} (Normal) Range: 0.9-2.4 ALB 3.5 g/dL (Normal) Range: 3.4-5.0 ALK P 99 U/L (Normal) Range: 50-136 ALT 33 [iU]/L (Normal) Range: 30-65 AST 19 U/L (Normal) Range: 15-37 BUN 11 mg/dL (Normal) Range: 7-18 BUN/CRE 15.7 {RATIO} (Normal) Range: 10-20 CA 8.2 mg/dL (Abnormal) Range: 8.5-10.1 CL 98 mmol/L (Normal) Range: 98-107 CO2 29.4 mmol/L (Abnormal) Range: 22.0-29.0 CREAT,SERUM 0.7 mg/dL (Normal) Range: 0.6-1.0 GAP 5 (Normal) Range: 5-15 GLOB 3.0 g/dL (Normal) Range: 2.3-3.5 GLU 84 mg/dL (Normal) Range: 70-110 K 3.9 mmol/L (Normal) Range: 3.5-5.1 NA 132 mmol/L (Abnormal) Range: 136-145 T BILI 0.27 mg/dL (Normal) Range: 0.00-1.00 T PROT 6.5 g/dL (Normal) Range: 6.4-8.2 :35 ESR SED RATE 11 mm/h (Normal) Range: 0-30 :02 Urinalysis, Office ([id number]) Comments: ABn signed CH UA - BILIRUBIN Negative (Normal) UA - BLOOD Negative (Normal) UA - GLUCOSE Negative (Normal) UA - KETONES Negative mg/dL (Normal) UA - LEUKOCYTE ESTERASE Negative (Normal) UA - NITRITE Negative (Normal) UA - PH 5.0 (Normal) UA - PROTEIN Negative mg/dL (Normal) UA - SPECIFIC GRAVITY 1.015 (Normal) URINE UROBILINGN YANCI TIMED 2 mg/dL (Normal) :19 PREMA 56 U/L (Normal) Range: 25-115 :19 CBCD BASO% 0.1 % (Normal) Range: 0-1 EO% 4.0 % (Normal) Range: 0-5 HCT 31.7 % (Abnormal) Range: 37-47 HGB 10.9 g/dL (Abnormal) Range: 12.0-16.0 LY% 16.0 % (Abnormal) Range: 19-41 MCH 30.9 pg (Normal) Range: 27.0-32.0 MCHC 34.5 g/dL (Normal) Range: 32-36 MCV 89.6 fL (Normal) Range: 81-99 MONO% 4.4 % (Normal) Range: 0-10 MPV 8.4 fL (Normal) Range: 6.5-12.0 NEUT% 75.5 % (Abnormal) Range: 47-70 PLT 256 K/mm3 (Normal) Range: 150-450 RBC 3.53 {M/mm3} (Abnormal) Range: 4.2-5.4 RDW 12.7 % (Normal) Range: 11.6-14.6 WBC 10.6 K/mm3 (Normal) Range: 4.4-11.0 :19 COMP METABOLIC A/G 1.0 {RATIO} (Normal) Range: 0.9-2.4 ALB 3.1 g/dL (Abnormal) Range: 3.4-5.0 ALK P 93 U/L (Normal) Range: 50-136 ALT 30 [iU]/L (Normal) Range: 30-65 AST 18 U/L (Normal) Range: 15-37 BUN 13 mg/dL (Normal) Range: 7-18 BUN/CRE 21.7 {RATIO} (Abnormal) Range: 10-20 CA 8.1 mg/dL (Abnormal) Range: 8.5-10.1 CL 100 mmol/L (Normal) Range: 98-107 CO2 26.0 mmol/L (Normal) Range: 22.0-29.0 CREAT,SERUM 0.6 mg/dL (Normal) Range: 0.6-1.0 GAP 8 (Normal) Range: 5-15 GLOB 3.0 g/dL (Normal) Range: 2.3-3.5 GLU 82 mg/dL (Normal) Range: 70-110 K 4.1 mmol/L (Normal) Range: 3.5-5.1 NA 134 mmol/L (Abnormal) Range: 136-145 T BILI 0.39 mg/dL (Normal) Range: 0.00-1.00 T PROT 6.1 g/dL (Abnormal) Range: 6.4-8.2 :19 FERRITIN 54 ng/mL (Normal) Range: 3-244 :19 LIPASE 212 U/L (Normal) Range: 114-286 0-Xed-022862:19 VIT B12 1503 147 pg/mL (Abnormal) Range: 211-911 Comments: Performed At: [address] [id number]-Hxv-[id number]:00 CULTURE, THROAT See Note (Normal) Comments: Normal throat rajwinder isolated. No beta-hemolyticstreptococcus isolated. 7-Ptz-068930:52 Urinalysis, Office (00028) UA - BILIRUBIN Negative (Normal) UA - BLOOD Hemolyzed Trace (Normal) UA - GLUCOSE Negative (Normal) UA - KETONES Negative mg/dL (Normal) UA - NITRITE Negative (Normal) UA - PH 6.0 (Normal) UA - PROTEIN Negative mg/dL (Normal) UA - SPECIFIC GRAVITY 1.005 (Normal) URINE UROBILINGN YANCI TIMED 2 mg/dL (Normal) :30 BMP Comments: COMMENTS: SHAMIKA,OR 07/19/06Precautions*: NOT APPLICABLE BUN 12 mg/dL (Normal) Range: 7-18 BUN/CRE 12.0 {RATIO} (Normal) Range: 10-20 CA 8.3 mg/dL (Abnormal) Range: 8.5-10.1 CL 101 mmol/L (Normal) Range: 98-107 CO2 27.4 mmol/L (Normal) Range: 22.0-29.0 CREAT,SERUM 1.0 mg/dL (Normal) Range: 0.6-1.0 GAP 7 (Normal) Range: 5-15 GLU 94 mg/dL (Normal) Range: 70-110 K 4.3 mmol/L (Normal) Range: 3.5-5.1 NA 135 mmol/L (Abnormal) Range: 136-145 :30 CBC Comments: COMMENTS: SHAMIKA,OR 07/19/06Precautions*: NOT APPLICABLE HCT 33.5 % (Abnormal) Range: 37-47 HGB 11.6 g/dL (Abnormal) Range: 12.0-16.0 MCH 30.9 pg (Normal) Range: 27.0-32.0 MCHC 34.5 g/dL (Normal) Range: 32-36 MCV 89.4 fL (Normal) Range: 81-99 PLT 268 K/mm3 (Normal) Range: 150-450 RBC 3.74 {M/mm3} (Abnormal) Range: 4.2-5.4 RDW 14.1 % (Normal) Range: 11.6-14.6 WBC 4.9 K/mm3 (Normal) Range: 4.4-11.0 :30 PRO TIME Comments: COMMENTS: PAT,OR 07/19/06Precautions*: NOT APPLICABLE INR 1.1 (Normal) PROTIME 13.2 s (Normal) Range: 11.7-13.3 :40 BMP BUN 10 mg/dL (Normal) Range: 7-18 BUN/CRE 12.5 {RATIO} (Normal) Range: 10-20 CA 9.1 mg/dL (Normal) Range: 8.5-10.1 CL 95 mmol/L (Abnormal) Range: 98-107 CO2 27.7 mmol/L (Normal) Range: 22.0-29.0 CREAT,SERUM 0.8 mg/dL (Normal) Range: 0.6-1.0 GAP 8 (Normal) Range: 5-15 GLU 96 mg/dL (Normal) Range: 70-110 K 4.3 mmol/L (Normal) Range: 3.5-5.1 NA 131 mmol/L (Abnormal) Range: 136-145 :40 OSMOLALITY,SER 277 {mOsm/KG} (Normal) Range: 275-295 :40 OSMOLALITY,UR 556 {mOsm/KG} (Normal) Comments: OSMOLALITY URINE REFERENCE INTERVALS 24-hour Urine 300 - 900 mOsm/kg Random Urine 50 - 1400 mOsm/kg After 12 Hr fluid restriction >850 mOsm/kg :40 UR NA 98 mmol/L (Normal) Plan of Care Name Dates Details Instructions Well woman exam (Renamed from Encounter for well woman exam) : Eprescribed prescriptions (G8553) Indication: Well woman exam (Renamed from Encounter for well woman exam) BMI 33.0-33.9,adult : Eprescribed prescriptions (G8553) Indication: BMI 33.0-33.9,adult Wheezing : Follow up if no improvement or if symptoms worsen Indication: Wheezing Flu-like symptoms : Eprescribed prescriptions (G8553) Indication: Flu-like symptoms Allergic rhinitis : Follow up if no improvement or if symptoms worsen Indication: Allergic rhinitis Flu-like symptoms : Follow up tomorrow, as needed Indication: Flu-like symptoms GERD (gastroesophageal reflux disease) : Heartburn *: gerd Indication: GERD (gastroesophageal reflux disease) GERD (gastroesophageal reflux disease) : Eprescribed prescriptions (G8553) Indication: GERD (gastroesophageal reflux disease) Wheezing : Follow up if no improvement or if symptoms worsen Indication: Wheezing 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 : Sciatica: back injury Indication: 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 : Eprescribed prescriptions (G8553) Indication: 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 High blood triglycerides : Heartburn *: gerd Indication: High blood triglycerides High blood triglycerides : Eprescribed prescriptions (G8553) Indication: High blood triglycerides Asthma : Follow up if no improvement or if symptoms worsen Indication: Asthma Wheezing : Follow up if no improvement or if symptoms worsen Indication: Wheezing Unspecified asthma with (acute) exacerbation : Fever: symptoms Indication: Unspecified asthma with (acute) exacerbation Unspecified asthma with (acute) exacerbation : Cough: respiratory infection Indication: Unspecified asthma with (acute) exacerbation Rash : Punch Biopsy without Epi Indication: Rash GERD (gastroesophageal reflux disease) : Eprescribed prescriptions (G8553) Indication: GERD (gastroesophageal reflux disease) Vitamin D deficiency, unspecified : Eprescribed prescriptions (G8553) Indication: Vitamin D deficiency, unspecified Dysthymic : Eprescribed prescriptions (G8553) Indication: Dysthymic Need for prophylactic vaccination and inoculation against influenza : Flu (Influenza) *: flu shot Indication: Need for prophylactic vaccination and inoculation against influenza Inflamed skin tag : Cryotherapy Indication: Inflamed skin tag Asthma : Eprescribed prescriptions (G8553) Indication: Asthma Nausea : Follow up if no improvement or if symptoms worsen Indication: Nausea BRONCHITIS, NOT SPECIFIED ACUTE OR CHRONIC (490.) : *URI Treatment Indication: BRONCHITIS, NOT SPECIFIED ACUTE OR CHRONIC (490.) BRONCHITIS, NOT SPECIFIED ACUTE OR CHRONIC (490.) : *URI Symptoms Indication: BRONCHITIS, NOT SPECIFIED ACUTE OR CHRONIC (490.) BRONCHITIS, NOT SPECIFIED ACUTE OR CHRONIC (490.) : *Antibiotic Usage Education - Female Indication: BRONCHITIS, NOT SPECIFIED ACUTE OR CHRONIC (490.) Pharyngitis, acute : Sore throat: diagnosis and treatment Indication: Pharyngitis, acute Vitamin D deficiency, unspecified : *ERGOCALCIFEROL DOSAGE PER SHEWMON Indication: Vitamin D deficiency, unspecified Asthma : Follow up if no improvement or if symptoms worsen Indication: Asthma Fibromyalgia : Flu (Influenza) *: flu Indication: Fibromyalgia Asthma : Asthma: asthma Indication: Asthma Cough : *URI Treatment Indication: Cough Cough : *URI Symptoms Indication: Cough Cough : Cough: respiratory infection Indication: Cough Fibromyalgia : Fibromyalgia *: fibromyalgia Indication: Fibromyalgia Unspecified asthma with (acute) exacerbation : *Antibiotic Usage Education - Female Indication: Unspecified asthma with (acute) exacerbation Unspecified asthma with (acute) exacerbation : Solu Medrol Injection/ Education Indication: Unspecified asthma with (acute) exacerbation Knee pain : Knee Injections Indication: Knee pain Knee pain : Euflexxa injection Indication: Knee pain Knee pain : Euflexxa injection Indication: Knee pain Knee pain : Euflexxa injection Indication: Knee pain Knee pain : Knee Injections Indication: Knee pain Bronchitis : *URI Treatment Indication: Bronchitis Bronchitis : *URI Symptoms Indication: Bronchitis Bronchitis : *Antibiotic Usage Education - Female Indication: Bronchitis Other specified viral infection, in conditions classified elsewhere and of unspecified site : *URI Symptoms Indication: Other specified viral infection, in conditions classified elsewhere and of unspecified site Other specified viral infection, in conditions classified elsewhere and of unspecified site : *URI Treatment Indication: Other specified viral infection, in conditions classified elsewhere and of unspecified site Knee pain : Knee Injections Indication: Knee pain Allergic rhinitis due to other allergen : ALLERGY CONTROL Indication: Allergic rhinitis due to other allergen Allergic rhinitis due to other allergen : ALLERGY PROOFING Indication: Allergic rhinitis due to other allergen Allergic rhinitis due to other allergen : URI Symptoms Indication: Allergic rhinitis due to other allergen Bronchitis, acute : Antibiotic Usage Education - Female Indication: Bronchitis, acute Knee pain : Knee Injections Indication: Knee pain Osteoarthritis : supartz injection Indication: Osteoarthritis Knee pain : supartz injection Indication: Knee pain Knee pain : supartz injection Indication: Knee pain Knee pain : supartz injection Indication: Knee pain Knee pain : supartz injection Indication: Knee pain Knee pain : supartz injection Indication: Knee pain Abnormal lung sounds : Solu Medrol Injection/ Education Indication: Abnormal lung sounds Bronchitis : *URI Treatment Indication: Bronchitis Bronchitis : Antibiotic Usage Education - Female Indication: Bronchitis Bronchitis : URI Symptoms Indication: Bronchitis Bronchitis : *URI Treatment Indication: Bronchitis Bronchitis : Antibiotic Usage Education - Female Indication: Bronchitis Bronchitis : URI Symptoms Indication: Bronchitis Bronchitis : *URI Treatment Indication: Bronchitis Bronchitis : URI Symptoms Indication: Bronchitis Bronchitis : Antibiotic Usage Education - Female Indication: Bronchitis Bronchitis : *URI Treatment Indication: Bronchitis Bronchitis : Antibiotic Usage Education - Female Indication: Bronchitis Bronchitis : URI Symptoms Indication: Bronchitis Unspecified asthma with (acute) exacerbation : Solu Medrol Injection/ Education Indication: Unspecified asthma with (acute) exacerbation Acute sinusitis, unspecified : *URI Treatment Indication: Acute sinusitis, unspecified Acute sinusitis, unspecified : Antibiotic Usage Education - Female Indication: Acute sinusitis, unspecified Acute sinusitis, unspecified : URI Symptoms Indication: Acute sinusitis, unspecified Pharyngitis, acute : *URI Treatment Indication: Pharyngitis, acute Pharyngitis, acute : Sore throat: diagnosis and treatment Indication: Pharyngitis, acute Edema : FOLLOW UP IN 2 WEEKS Indication: Edema Asthma : FOLLOW UP IN 3 MONTHS Indication: Asthma Bronchitis : Antibiotic Usage Education - Female Indication: Bronchitis Bronchitis : URI Symptoms Indication: Bronchitis Other specified viral infection, in conditions classified elsewhere and of unspecified site : URI treament Indication: Other specified viral infection, in conditions classified elsewhere and of unspecified site Other specified viral infection, in conditions classified elsewhere and of unspecified site : URI Symptoms Indication: Other specified viral infection, in conditions classified elsewhere and of unspecified site Other specified viral infection, in conditions classified elsewhere and of unspecified site : Antibiotic Usage Education - Female Indication: Other specified viral infection, in conditions classified elsewhere and of unspecified site Planned Observations LIPASE (85073)Indication: Chronic pancreatitis On: 89-Coy-059108:51 Request AMYLASE (68364)Indication: Chronic pancreatitis On: 91-Fea-590816:50 Request URINALYSIS (56013)Indication: Chronic pancreatitis On: :50 Request CBC WITH MANUAL DIFF (49938)Indication: Chronic pancreatitis On: 59-Xkv-933569:50 Request Metabolic Panel, Comprehensive (17862)Indication: Chronic pancreatitis On: 04-Jwt-134513:50 Request PT (PROTHROMBIN TIME) (88042)Indication: PFO (patent foramen ovale) On: 73-Lqe-692189:36 Request Vitamin B-12 (cyanocobalamin) (80104)Indication: S/P gastric bypass On: 7-Fyj-973584:21 Request Ferritin (14986)Indication: Iron deficiency anemia due to dietary causes On: 9-Ayq-327501:21 Request CBC, Platelets & Auto Diff (97340)Indication: Chronic pancreatitis On: :21 Request Metabolic Panel, Comprehensive (43574)Indication: Chronic pancreatitis On: 8-End-787712:21 Request CALCIFIDIOL (33097) VIT D 25Indication: Vitamin D deficiency, unspecified On: 78-Cek-89426:55 Request Comments: re check in 8 weeks Sed Rate Erythrocyte (11206)Indication: Fever On: 16-Sme-584106:39 Request URINALYSIS (27829)Indication: Fever On: :33 Request URINE GRETTA CULTURE-IDENTIFICATN (17659)Indication: Fever On: :33 Request CALCIFIDIOL (56100) VIT D 25Indication: Vitamin D deficiency, unspecified On: :32 Request CBC, Platelets & Auto Diff (81357)Indication: Iron deficiency anemia due to dietary causes On: :32 Request Ferritin (76799)Indication: Iron deficiency anemia due to dietary causes On: 34-Sug-387808:32 Request GRETTA CULTURE-BLOOD (96067)Indication: Fever On: 91-Pkp-770224:30 Request Comments: ONE FROM PORT AND ONE PERIPHERAL CALCIFIDIOL (01595) VIT D 25Indication: Vitamin D deficiency, unspecified On: 47-Rpz-117678:24 Request FERRITIN (46791)Indication: Iron deficiency anemia due to dietary causes On: 73-Jip-150474:22 Request EBV ANTIBODY VCA/EA 36111 (28844)Indication: Fatigue On: 62-Jhe-153446:31 Request Comments: please do VCA IGM Ferritin (73278)Indication: Iron deficiency anemia due to dietary causes On: 29-Lto-299449:00 Request CALCIFIDIOL (03094) VIT D 25Indication: Vitamin D deficiency, unspecified On: 77-Fqr-818535:00 Request EBV Panel (58405)Indication: Pharyngitis, acute On: 38-Zba-406775:58 Request Influenza A&B Viral Culture (74393)Indication: Fever On: 2-Nnx-757984:34 Request GRETTA CULTURE-OTHER (42233)Indication: Fever On: :33 Request Rapid Strep Test, Office (13441)Indication: Fever On: :18 Request Troponin I (15802)Indication: Chest pain at rest On: :43 Request Comments: pls add to labs already done MYOGLOBIN (15758)Indication: Chest pain at rest On: : Request CPK MB FRACTION (05279)Indication: Chest pain at rest On: : Request Sed Rate Erythrocyte (58192)Indication: Chest pain at rest On: : Request CBC WITH MANUAL DIFF (68806)Indication: Chest pain at rest On: Request CALCIFEDIOL (72999)Indication: OTHER AND UNSPECIFIED POSTSURGICAL NONABSORPTION On: :12 Request PARATHORMONE (65590)Indication: OTHER AND UNSPECIFIED POSTSURGICAL NONABSORPTION On: : Request Magnesium (02690)Indication: OTHER AND UNSPECIFIED POSTSURGICAL NONABSORPTION On: : Request Phosphorus (72447)Indication: OTHER AND UNSPECIFIED POSTSURGICAL NONABSORPTION On: : Request IRON (63182)Indication: OTHER AND UNSPECIFIED POSTSURGICAL NONABSORPTION On: : Request FERRITIN (16945)Indication: OTHER AND UNSPECIFIED POSTSURGICAL NONABSORPTION On: :12 Request ZINC, BLOOD (68451)Indication: OTHER AND UNSPECIFIED POSTSURGICAL NONABSORPTION On: : Request VITAMIN A (97265)Indication: OTHER AND UNSPECIFIED POSTSURGICAL NONABSORPTION On: : Request TSH (18854)Indication: OTHER AND UNSPECIFIED POSTSURGICAL NONABSORPTION On: : Request MAGNESIUM (35412)Indication: OTHER AND UNSPECIFIED POSTSURGICAL NONABSORPTION On: : Request Folic Acid Serum (40519)Indication: OTHER AND UNSPECIFIED POSTSURGICAL NONABSORPTION On: : Request CHROMIUM (61712)Indication: OTHER AND UNSPECIFIED POSTSURGICAL NONABSORPTION On: :12 Request ASSAY, HOMOCYSTINE (57899)Indication: OTHER AND UNSPECIFIED POSTSURGICAL NONABSORPTION On: :12 Request Metabolic Panel, Basic (25089)Indication: Abdominal pain On: 65-Lzs-678309:11 Request Comments: do on this tuesday OSMOLALITY URINE (58012)Indication: Abdominal pain On: :11 Request Comments: today in ambulatory OSMOLALITY BLOOD (76195)Indication: Abdominal pain On: :11 Request Comments: today in ambulatory Lipase (40911)Indication: Abdominal pain On: :11 Request Comments: today in ambulatory Amylase (91306)Indication: Abdominal pain On: :11 Request Comments: today in ambulatory CBC, Platelets & Auto Diff (18604)Indication: Abdominal pain On: :11 Request Comments: today in ambulatory Metabolic Panel, Comprehensive (93226)Indication: Abdominal pain On: :10 Request Comments: today in ambulatory AMYLASE (87153)Indication: Abdominal pain On: 1-Xwc-503875:12 Request LIPASE (25700)Indication: Abdominal pain On: 4-Eww-675738:12 Request Ferritin (82413)Indication: Iron deficiency anemia due to dietary causes On: :20 Request Comments: in six months (approximately) Vitamin B-12 (cyanocobalamin) (19978)Indication: Other vitamin B12 deficiency anemia On: :19 Request Comments: in six months (approximately) Lipid Panel (01531)Indication: High blood triglycerides On: :19 Request Comments: in six months (approximately) Metabolic Panel, Comprehensive ([id number])Indication: Chronic pancreatitis On: :19 Request Comments: in six months (approximately) Vitamin B-12 (cyanocobalamin) (70845)Indication: Other vitamin B12 deficiency anemia On: :27 Request METABOLIC PANEL, COMPREHENSIVE (19923)Indication: High blood triglycerides On: :19 Request LIPID PANEL (27728)Indication: High blood triglycerides On: :19 Request CBC, Platelets & Auto Diff (82864)Indication: Iron deficiency anemia due to dietary causes On: 13-Ekw-391027:15 Request Ferritin (52269)Indication: Iron deficiency anemia due to dietary causes On: 78-Qmt-757273:15 Request Iron (99359)Indication: Iron deficiency anemia due to dietary causes On: :29 Request Comments: recheck in 4 weeks pt needs to be fasting Iron Binding Capacity (TIBC) (91036)Indication: Iron deficiency anemia due to dietary causes On: :29 Request Comments: recheck in 4 weeks pt needs to be fasting Ferritin (55148)Indication: Iron deficiency anemia due to dietary causes On: :28 Request Comments: recheck in 4 weeks pt needs to be fasting METABOLIC PANEL, COMPREHENSIVE (41041)Indication: High blood triglycerides On: :33 Request LIPID PANEL (55550)Indication: High blood triglycerides On: 69-Jio-287160:33 Request CBC (Auto) (16553)Indication: Iron deficiency anemia due to dietary causes On: 98-Rkd-449841:33 Request Ferritin (01603)Indication: Iron deficiency anemia due to dietary causes On: 65-Yxq-720132:33 Request Vitamin B-12 (cyanocobalamin) (73237)Indication: Other vitamin B12 deficiency anemia On: 10-Ght-784248:32 Request CALCIFIDIOL (47447) VIT D 25Indication: Vitamin D deficiency, unspecified On: 79-Nsn-251689:32 Request CULTURE, SPUTUM (13969)Indication: Cough On: 5-Tyi-433803:36 Request Iron (25942)Indication: Iron deficiency anemia due to dietary causes On: 72-Oxy-984274:53 Request CALCIFIDIOL (52212) VIT D 25Indication: Vitamin D deficiency, unspecified On: 27-Bbz-640810:02 Request CBC (Auto) (99267)Indication: Iron deficiency anemia due to dietary causes On: 1-Auy-688349:49 Request Metabolic Panel, Comprehensive (37140)Indication: Chronic pancreatitis On: 4-Scb-047893:49 Request Lipid Panel (05426)Indication: High blood triglycerides On: 4-Vye-599276:49 Request Ferritin (04886)Indication: Iron deficiency anemia due to dietary causes On: 4-Cgd-167531:48 Request CALCIFEDIOL (93896)Indication: Vitamin D deficiency, unspecified On: :48 Request Vitamin B-12 (cyanocobalamin) (67325)Indication: Other vitamin B12 deficiency anemia On: 4-Roq-513413:47 Request Lipase (92352)Indication: Chronic pancreatitis On: :47 Request Amylase (43547)Indication: Chronic pancreatitis On: :47 Request D-Dimer (00864)Indication: Anemia On: 77-Vkh-590492:28 Request Comments: stat Metabolic Panel, Comprehensive (79820)Indication: Anemia On: :16 Request TYPE & SCREEN GEL (52819)Indication: Anemia On: :16 Request CBC with manual diff (99713)Indication: Anemia On: :15 Request Lipase (44883)Indication: Chronic pancreatitis On: :30 Request Amylase (57977)Indication: Chronic pancreatitis On: 14-Jnu-960465:30 Request Ferritin (31593)Indication: Iron deficiency anemia due to dietary causes On: 85-Gwi-378780:28 Request LIPASE (95115)Indication: Chronic pancreatitis On: 2-Led-930294:21 Request AMYLASE (14141)Indication: Chronic pancreatitis On: 6-Qto-898657:21 Request Lipase (12789)Indication: Chronic pancreatitis On: 65-Rnx-421200:12 Request Amylase (46661)Indication: Chronic pancreatitis On: 87-Toy-024941:12 Request MICROALBUMIN: CREATININE RATIO (90398) AND (99414)Indication: Chronic pancreatitis On: 94-Ejs-676847:12 Request METABOLIC PANEL, COMPREHENSIVE (89253)Indication: Chronic pancreatitis On: 50-Adj-288630:12 Request LIPID PANEL (93586)Indication: High blood triglycerides On: 87-Qgz-835305:12 Request CBC WITH MANUAL DIFF (08178)Indication: Chronic pancreatitis On: 95-Eau-930867:12 Request Metabolic Panel, Comprehensive (45288)Indication: Chronic pancreatitis On: 6-Fjw-024675:46 Request Lipase (34885)Indication: Chronic pancreatitis On: 8-Vpm-275409:46 Request Amylase (80235)Indication: Chronic pancreatitis On: 6-Nry-255044:46 Request CALCIFIDIOL (58323) VIT D 25Indication: Vitamin D deficiency, unspecified On: :43 Request Ferritin (88050)Indication: Iron deficiency anemia due to dietary causes On: :43 Request CBC (Auto) (98634)Indication: Iron deficiency anemia due to dietary causes On: :43 Request PT (Prothrobim Time) (21125)Indication: AFTERCARE, LONG-TERM USE, ANTICOAGULANTS On: :28 Request Lipase (16502)Indication: Chronic pancreatitis On: : Request Amylase (34212)Indication: Chronic pancreatitis On: : Request Metabolic Panel, Comprehensive (03008)Indication: Chronic pancreatitis On: : Request CBC (Auto) (43160)Indication: Leukopenia On: :25 Request Lipid Panel (77006)Indication: High blood triglycerides On: :25 Request Iron (52839)Indication: Iron deficiency anemia due to dietary causes On: :23 Request Ferritin (89944)Indication: Iron deficiency anemia due to dietary causes On: :23 Request Vitamin B-12 (cyanocobalamin) (08074)Indication: Other vitamin B12 deficiency anemia On: :23 Request CALCIFIDIOL (13029) VIT D 25Indication: Vitamin D deficiency, unspecified On: 1-Uiw-606115:23 Request Lipase (38201)Indication: Chronic pancreatitis On: :21 Request Amylase (10427)Indication: Chronic pancreatitis On: 1-Hxp-631664:21 Request Comments: pls add to labs already drawn Metabolic Panel, Comprehensive (47573)Indication: Chronic pancreatitis On: : Request Ferritin (29685)Indication: Iron deficiency anemia due to dietary causes On: 0-Yxa-120756: Request CBC (Auto) (81422)Indication: Chronic pancreatitis On: 4-Dyb-694098:07 Request LIPID PANEL (59840)Indication: High blood triglycerides On: 1-Eql-742703:15 Request Iron Binding Capacity (TIBC) (06445)Indication: Anemia On: :53 Request Iron (87687)Indication: Anemia On: 81-Rvx-357714:53 Request Ferritin (11450)Indication: Anemia On: :53 Request CBC (Auto) (66153)Indication: Anemia On: :53 Request Metabolic Panel, Comprehensive (68669)Indication: Chronic pancreatitis On: :53 Request OVA & PARASITE DIR SMEAR (48615)Indication: Diarrhea On: :37 Request LEUKOCYTE COUNT, FECAL (43455)Indication: Diarrhea On: :37 Request C.Difficile, Stool (21926)Indication: Diarrhea On: :37 Request GRETTA CULTURE-STOOL (61536)Indication: Diarrhea On: :37 Request Vitamin B-12 (cyanocobalamin) (71420)Indication: Other vitamin B12 deficiency anemia On: 91-Wxf-916465:05 Request Iron (82014)Indication: Anemia On: 54-Kwq-477975:05 Request Ferritin (95420)Indication: Anemia On: 30-Gyw-070032:05 Request METABOLIC PANEL, COMPREHENSIVE (55144)Indication: High blood triglycerides On: :05 Request CBC WITH MANUAL DIFF (37514)Indication: Anemia On: 89-Fbk-742541:05 Request LIPID PANEL (38559)Indication: High blood triglycerides On: 65-Vhd-895172:04 Request nasal influenza swab (02419) C5Gxofxqiiut: Unspecified Diagnosis On: 9-Ebz-510102:29 Request Rapid Flu (40278 x 2)Indication: Fever On: 5-Vny-223910:44 Request Lipid Panel (80721)Indication: High blood triglycerides On: 42-Mcz-170661:53 Request CBC (Auto) (81052)Indication: Chronic pancreatitis On: 93-Yix-912817:51 Request Metabolic Panel, Comprehensive (91273)Indication: Chronic pancreatitis On: 29-Kcq-695410:51 Request Ferritin (84884)Indication: Anemia On: 73-Mgk-644771:51 Request Iron (41625)Indication: Anemia On: 75-Djc-124236:51 Request Vitamin B-12 (cyanocobalamin) (85435)Indication: Other vitamin B12 deficiency anemia On: 08-Bwf-596056:51 Request Lipid Panel (14009)Indication: Malabsorption syndrome On: 50-Ezk-451722:39 Request Sed Rate Erythrocyte (20824)Indication: Chronic pancreatitis On: :35 Request CBC, Platelets & Auto Diff (09715)Indication: Chronic pancreatitis On: :35 Request Magnesium (80636)Indication: Chronic pancreatitis On: :35 Request Lipase (49427)Indication: Chronic pancreatitis On: :35 Request Amylase (53015)Indication: Chronic pancreatitis On: :35 Request Metabolic Panel, Comprehensive (65620)Indication: Chronic pancreatitis On: :35 Request CBC (Auto) (20569)Indication: Abdominal pain, acute, generalized On: 46-Kfe-241216:29 Request Metabolic Panel, Comprehensive (19953)Indication: Abdominal pain, acute, generalized On: 08-Cxj-407763:29 Request Methylmalonic acid, serum 98138Bixxuvghey: Other vitamin B12 deficiency anemia On: 25-Uyd-030525:29 Request CULTURE, SPUTUM (79996)Indication: Cough On: 9-Wms-229300:42 Request Lipase (53915)Indication: Acute pancreatitis On: 7-Msp-093662:59 Request Amylase (17838)Indication: Acute pancreatitis On: 2-Aix-102122:59 Request DESIRAE (ANTINUCLEAR ANTIBODY) (96581)Indication: Pain in unspecified joint On: 0-Huo-339923:48 Request C-REACTIVE PROTEIN (68075)Indication: Pain in unspecified joint On: 4-Wjx-807269:48 Request CBC WITH MANUAL DIFF (20001)Indication: Pain in unspecified joint On: 0-Ooa-213826:48 Request METABOLIC PANEL, COMPREHENSIVE (07529)Indication: Pain in unspecified joint On: 9-Uej-322724:48 Request RHEUMATOID FACTOR-QUANT (24993)Indication: Pain in unspecified joint On: 0-Xzc-331032:48 Request SED RATE ERYTHROCYTE (01054)Indication: Pain in unspecified joint On: 2-Vtt-809084:48 Request TSH (27910)Indication: Pain in unspecified joint On: 2-Waq-655259:48 Request GRETTA CULTURE-OTHER (31618)Indication: Pharyngitis, acute On: 07-Igu-552457:12 Request Rapid Strep Test, Office (98886)Indication: Pharyngitis, acute On: 35-Ydn-941322:12 Request Comments: negative VITAMIN D, 1, 25-DIHYDROXY (54878)Indication: Chronic pancreatitis On: 32-Ktj-525468:46 Request Vitamin B-12 (cyanocobalamin) (90294)Indication: Other vitamin B12 deficiency anemia On: 98-Olf-121536:43 Request Lipase (50695)Indication: Chronic pancreatitis On: 55-Mka-939582:35 Request Amylase (24147)Indication: Chronic pancreatitis On: 34-Yjt-526075:34 Request CBC (Auto) (31299)Indication: Chronic pancreatitis On: 23-Rgp-808495:34 Request Metabolic Panel, Comprehensive (42691)Indication: Chronic pancreatitis On: 99-Axi-581930:34 Request Lipid Panel (49115)Indication: Chronic pancreatitis On: 96-Gxh-027188:34 Request Comments: standing order every 3 months Metabolic Panel, Comprehensive (19362)Indication: Edema On: 40-Uwn-787645:13 Request CBC, Platelets & Auto Diff (64986)Indication: Edema On: 55-Cvl-618307:13 Request PTT (Activated Partial Thromboplastin Time) (72138)Indication: Edema On: 89-Osm-994597:12 Request PT (Prothrobim Time) (39189)Indication: Edema On: 25-Vmb-906974:12 Request Lipase (66933)Indication: pancreatitis On: :32 Request Amylase (54110)Indication: pancreatitis On: :32 Request CBC (Auto) (38941)Indication: pancreatitis On: :32 Request Metabolic Panel, Comprehensive (61826)Indication: pancreatitis On: :32 Request Metabolic Panel, Comprehensive (69652)Indication: Fever On: 14-Uvz-794736:57 Request GRETTA CULTURE-BLOOD (09232)Indication: Fever On: 34-Ihc-556876:56 Request Comments: one from peripheral GRETTA CULTURE-BLOOD (72167)Indication: Fever On: 50-Str-985203:56 Request Comments: one from port Sed Rate Erythrocyte (32860)Indication: Fever On: 11-Uro-207664:56 Request CBC, Platelets & Auto Diff (36973)Indication: Fever On: :56 Request Urinalysis, Office (43313)Indication: Fever On: 38-Pwq-734356:56 Request GRETTA CULTURE-OTHER (92516)Indication: Fever On: 5-Zhe-305353:53 Request Rapid Strep Test, Office (16785)Indication: Fever On: :52 Request CBC, Platelets & Auto Diff (81142)Indication: Chronic pancreatitis On: :46 Request Lipase (86341)Indication: Chronic pancreatitis On: :46 Request Amylase (21856)Indication: Chronic pancreatitis On: :46 Request Metabolic Panel, Comprehensive (15089)Indication: Chronic pancreatitis On: 7-Zsf-110449:46 Request FERRITIN (04747)Indication: Anemia On: 4-Gfh-973588:22 Request VITAMIN B-12 (CYANOCOBALAMIN) (90382)Indication: Other vitamin B12 deficiency anemia On: 6-Ldi-771486:22 Request LIPASE (64726)Indication: Acute pancreatitis On: :22 Request ALBUMIN SERUM (97406)Indication: Acute pancreatitis On: :22 Request CBC (AUTO) (08703)Indication: Acute pancreatitis On: 21-Xgx-040263:21 Request METABOLIC PANEL, BASIC (60091)Indication: Abnormal blood chemistry On: 11-Ppo-255260:21 Request Planned Encounters Medical; [facility] (Doctor) - On: 01-May-2018 13:30 [facility] Dima DURAN, Sarah Pizano MD, Sarah Rebollar Planned Procedures Flu Vaccine (Quadrivalent) On: 31-Mar-2018 Intent 99357Hy: COMFORT Gallegos Comments: Lot #:[id number] date: 0-44-52Yxzdvv given:0.5mlRoute: IMSite given:L DltdGiven by: ElaineVIS and ABN signed [employer] SCREENING DIGITAL TOMOSYNTHESIS On: 20-Dec-2017 Intent OF BREAST (21143)By: Sarah Pizano MD, MD, Dana M DEXA SCAN AXIAL SKELETON On: 20-Dec-2017 Intent (90168)By: Sarah Pizano MD, MD, Dana M SCREENING DIGITAL TOMOSYNTHESIS On: 29-Apr-2017 Intent OF BREAST (51053)By: Sarah Pizano MD, MD, Dana M Flu Vaccine (Quadrivalent) On: 29-Apr-2017 Intent 17826Zv: Sarah Pizano MD Comments: lot: [id number]: 12/19/17ite/route: L kelin, IMamt: 0.5mlVIS and ABN signed when applicableChelsea, ASSISTANT ASSOCIATE FULL PROFESSOR Sarah Pizano MD CT - Abdomen & Pelvis (IV On: 01-Oct-2016 Intent Contrast Needed)By: Dima DURAN, Comments: attentinon pancrease follow up on kidney cyst. 07-20 creat 0.76 Sarah Ghosh MD Flu Vaccine (Quadrivalent) On: 17-May-2016 Intent 92085Ug: Sarah Pizano MD Comments: FLUlot: [id number]:11/17site:Lt deltoidroute:IMdose:.5mlDEMICK, MA Sarah Pizano MD Aerosol Treatment (12087)By: On: 27-Apr-2016 Intent Kacey Rodriges LPN DEXA SCAN AXIAL SKELETON On: 09-Mar-2016 Intent (82976)By: aSrah Pizano MD, MD, Dana M MAMMOGRAM, SCREENING, BOTH On: 09-Mar-2016 Intent BREAST (16973)By: Sarah Pizano MD, MD, Dana M DEXA SCAN AXIAL SKELETON On: 15-Jul-2015 Intent (70411)By: Sarah Pizano MD, MD, Dana M MAMMOGRAM, SCREENING, BOTH On: 15-Jul-2015 Intent BREAST (54131)By: Sarah Pizano MD, MD, Dana M Aerosol Treatment (23662)By: On: 08-Jul-2015 Intent Pamella Saavedra CNP Aerosol Treatment (28250)By: On: 08-Jul-2015 Intent Slarb PREFITTER DOORS, Kacey XR HIP RIGHT COMPLETE (86987)By: On: 30-Jun-2015 Intent Sarah Pizano MD, MD, Comments: right hip Sarah Rebollar Radiology - PelvisBy: Dima On: 24-Jun-2015 Intent Sarah DURAN MD, Dana M Comments: and right hip xray Venous Doppler - RightBy: On: 24-Jun-2015 Intent Sarah Pizano MD, MD, Comments: leg Sraah Rebollar Flu Vaccine (Quadrivalent) On: 15-Apr-2015 Intent 51111Ff: Sarah Pizano MD Comments: lot [id number]: 01/01/2016site/route L kelin, IMamt 0.5mlVIS and ABN signed when applicableHellenlsmadeleine CMA4 Sarah Pizano MD Radiology - ChestBy: Quentin ARGUETA, On: 07-Feb-2015 Intent Adeola Aerosol Treatment (55202)By: On: 07-Feb-2015 Intent Ailyn Aguilar Solu -Medrol Injection, 125 mg On: 05-Feb-2015 Intent (J2930)By: Pamella Saavedra CNP Comments: lot:[id number]:route:IMdose:125MGsite: R glutGiven by: FOX Angeles Solu -Medrol Injection, 125 mg On: 04-Feb-2015 Intent (J2930)By: Pamella Saavedra CNP Aerosol Treatment (75352)By: On: 04-Feb-2015 Intent Pamella Saavedra CNP MAMMOGRAM, SCREENING, BOTH On: 14-Jan-2015 Intent BREAST (22948)By: Sarah Pizano MD, MD, Dana M Prevnar 13 (60576)By: Dima On: 16-Jul-2014 Intent Sarah DURAN MD, Dana M ADMINISTRATION OF INFLUENZA On: 22-Apr-2014 Intent VIRUS VACCINE (G0008)By: Sarah Pizano MD, MD, Dana M FLU VAC, SPLIT, >3 YEARS, On: 22-Apr-2014 Intent INTRAMUSC (55314)By: Dima DURAN, Comments: Lot #:[id number] date:mount given:0.5mlRoute: IMSite given:left deltoid Given by: Sarah Mota MD Phenergan Injection, up to 50 mg On: 12-Dec-2013 Intent (J2550)By: Pamella Saavedra CNP MAMMOGRAM, SCREENING, BOTH On: 25-Sep-2013 Intent BREASTS (26641)By: Sarah Pizano MD, MD, Dana M Eprescribed prescriptions On: 25-Sep-2013 Intent (G8553)By: Sarah Pizano MD, MD, Dana M Aerosol Treatment (84558)By: On: 05-Sep-2013 Intent [address]ella Saavedra CNP CT - Abdomen & Pelvis (IV On: 04-Jun-2013 Intent Contrast Needed)By: Sarah Pizano MD, MD, Dana M DXA, BONE DENSITY, AXIAL On: 04-Jun-2013 Intent SKELETON (74436)By: Dima DURAN, Comments: postmenapausal Sarah Ghosh MD MAMMOGRAM, SCREENING, BOTH On: 04-Jun-2013 Intent BREASTS (91803)By: Sarah Pizano MD, MD, Dana M Pulse Oximetry (60068)By: On: 04-Jun-2013 Intent COMFORT Gallegos Eprescribed prescriptions On: 14-May-2013 Intent (G8553)By: Melba Malloy ELECTROCARDIOGRAM, COMPLETE On: 26-Dec-2012 Intent (ECG) (83912)By: Sarah Pizano MD, MD, Dana M Eprescribed prescriptions On: 26-Dec-2012 Intent (G8553)By: Makenzie Allred LPN MAMMOGRAM, SCREENING, BOTH On: 24-Aug-2012 Intent BREASTS (40350)By: Sarah Pizano MD, MD, Dana M Pulse Oximetry (29822)By: On: 29-Jun-2012 Intent COMFORT Gallegos Radiology - Chest- PA and LatBy: On: 01-Jun-2012 Intent Sofia Younger DO Eprescribed prescriptions On: 01-Jun-2012 Intent (G8553)By: Kim Garces LPN FLU VAC, SPLIT, >3 YEARS, On: 28-Apr-2012 Intent INTRAMUSC (89304)By: Balaji, Comments: Lot:[id number]:630.13Dose:prefilledRoute:IMSite:L DltdGiven By:BARRY Garcia IMMUNIZ ADMNIN, 1 VAC, On: 28-Apr-2012 Intent SNGL/COMBO (59176)By: Radha Carpio TDAP VACCINE >7 IM (15041)By: On: 24-Nov-2011 Intent Long Makenzie ABBOTT Comments: Lot #[id number]- 11.13Site- L arm, ImDose prefilledgiven by: Makenzie MAMMOGRAM, SCREENING, BOTH On: 01-Nov-2011 Intent BREASTS (09609)By: Dima DURAN, Sarah Pizano MD, Sarah Rebollar Aerosol Treatment (35052)By: On: 14-Oct-2011 Intent Sofia Younger DO Comments: done pt tolerated well-- more a/e - less wheeze and irritabiltiy after tx Solu- Medrol Injection, 125mg On: 14-Oct-2011 Intent (J2930)By: Sofia Younger DO Comments: 2 ml given im rt hip lot obyr3 exp 07/18 Kenalog Injection, 10 mgm On: 09-Aug-2011 Intent (J3301)By: Dima DURAN, Sarah Pizano MD, Sarah Rebollar FLU VAC, SPLIT, >3 YEARS, On: 20-Apr-2011 Intent INTRAMUSC (45864)By: Cayden Comments: Lot #[id number]/30/12Site-left deltoidgiven by: Jared Rodarte LPN LPN, Chery IMMUNIZ ADMNIN, 1 VAC, On: 20-Apr-2011 Intent SNGL/COMBO (89268)By: Chery Rodarte LPN B 12 Injection, 1000 mcg On: 22-Mar-2011 Intent (J3420)By: COMFORT Gallegos DRAIN/INJECT MAJOR JOINT OR On: 22-Mar-2011 Intent BURSA ()By: COMFORT Gallegos Comments: Lot #:[id number] date: given:2ml Route: intra articular Site given:bilateral knees Given by: Dr. Pizano Pulse Oximetry (95626)By: Quentin On: 19-Mar-2011 Intent DIE SINKER APPRENTICE, Adeola Aerosol Treatment (12047)By: On: 19-Mar-2011 Intent Ciesa DIE SINKER APPRENTICE, Adeola DRAIN/INJECT MAJOR JOINT OR On: 12-Mar-2011 Intent BURSA ()By: COMFORT Gallegos Comments: Lot #:[id number] date: given:2ml Route: intra articular Site given:bilateral knees Given by: Dr. Pizano DRAIN/INJECT MAJOR JOINT OR On: 04-Mar-2011 Intent BURSA ()By: COMFORT Gallegos Comments: Lot #:[id number] date: given:2mlRoute: intra articular Site given:Bilateral knees Given by: Dr. Pizano injection #1 Kenalog Injection, 10 mgm On: 08-Feb-2011 Intent (J3301)By: Sarah Pizano MD Comments: x 8 Sarah Pizano MD Breast Ultrasound - LeftBy: On: 08-Feb-2011 Intent Sarah Pizano MD, MD, Dana M DXA, BONE DENSITY, AXIAL On: 02-Nov-2010 Intent SKELETON (91532)By: Sarah Pizano MD, MD, Dana M MAMMOGRAM, SCREENING, BOTH On: 02-Nov-2010 Intent BREASTS (48763)By: Sarah Pizano MD, MD, Dana M FLU VAC, SPLIT, >3 YEARS, On: 17-Jun-2010 Intent INTRAMUSC (60200)By: Mitchelluszsaskia Comments: Lot #[id number]-4/11Site-right deltoidgiven by:LIBRADO PREFITTER DOORS, Chery IMMUNIZ ADMNIN, 1 VAC, On: 17-Jun-2010 Intent SNGL/COMBO (27384)By: Chery Rodarte LPN DXA, BONE DENSITY, AXIAL On: 30-Sep-2009 Intent SKELETON (26881)By: Dima DURAN, Sarah Pizano MD, Sarah Rebollar MAMMOGRAM, SCREENING, BOTH On: 30-Sep-2009 Intent BREASTS (90818)By: Dima DURAN, Sarah Pizano MD, Sarah Rebollar B 12 Injection, 1000 mcg On: 30-Sep-2009 Intent (J3420)By: COMFORT Gallegos Pulse Oximetry (55718)By: Quentin On: 09-Apr-2009 Intent DIE SINKER APPRENTICE, Adeola Aerosol Treatment (39453)By: On: 09-Apr-2009 Intent Ciesa DIE SINKER APPRENTICE, Adeola FLU VAC, SPLIT, >3 YEARS, On: 26-Mar-2009 Intent INTRAMUSC (31921)By: Lisa HERRON, Andie IMMUNIZ ADMNIN, 1 VAC, On: 26-Mar-2009 Intent SNGL/COMBO (87014)By: Lisa RN, Comments: Lot #: [id number] date: mount given: 0.5 mlRoute: IMSite given: left deltoidGiven by: SCAR Montenegro INJECTION, VITAMIN B-12 On: 07-Feb-2009 Intent CYANOCOBALAMIN, UP TO 1000 MCG Comments: Lot #[id number] date:mount given:1mlSite given: right deltoidGiven by:Wf. (Special Coverage Instructions Apply. See [facility]: 45-4 and [facility]: 2049) (J3420)By: COMFORT Gallegos Pulse Oximetry (24367)By: Ceci On: 04-Dec-2008 Intent Rosa Maria AGUAYO Comments: post mbmayqdnc14% Aerosol Treatment (61325)By: On: 04-Dec-2008 Intent Fast Rosa Maria AGUAYO Comments: done-aw B 12 Injection, 1000 mcg On: 04-Dec-2008 Intent (J3420)By: Tonia Garcia Comments: Lot #[id number]-05/2010Site-right iqcznfnKxbz6331lwc/1mlgiven by Debbie Lei LPN Pulse Oximetry (36087)By: On: 04-Dec-2008 Intent Tonia Garcia Comments: 91% Radiology - Knee - RightBy: On: 05-Nov-2008 Intent Dima DURAN, Sarah Pizano MD, Sarah Rebollar Radiology - Knee - LeftBy: On: 05-Nov-2008 Intent Dima DURAN, Sarah Pizano MD, Sarah Rebollar B 12 Injection, 1000 mcg On: 05-Nov-2008 Intent (J3420)By: COMFORT Gallegos Comments: Lot #:[id number] date: given:1 ml Route: IM Site given:rt. deltoid Given by: aretha aSrkar 12 Injection, 1000 mcg On: 09-Oct-2008 Intent (J3420)By: COMFORT Gallegos Comments: Lot #[id number]-05/2010Site-right jjxgcspFtug3382fxl/1mlgiven by Debbie Lei LPN DRAIN/INJECT MAJOR JOINT OR On: 09-Oct-2008 Intent BURSA ()By: COMFORT Gallegos Comments: Lot #:[id number] date:mount given:Route: intra articular Site given:bilateral knees Given by: Dr. Pizano DRAIN/INJECT MAJOR JOINT OR On: 01-Oct-2008 Intent BURSA ()By: COMFORT Gallegos Comments: Lot #:[id number] date:mo given:2.5ml Route:intra-articular Site given:Bilateral knees Given by: Dr. Pizano DRAIN/INJECT MAJOR JOINT OR On: 24-Sep-2008 Intent BURSA ()By: COMFORT Gallegos Comments: Lot #:[id number] date: Amount given:2.5 mlRoute: intra-articular Site given:bilateral knees Given by: Dr. Pizano DRAIN/INJECT MAJOR JOINT OR On: 17-Sep-2008 Intent BURSA ()By: COMFORT Gallegos Comments: Lot #:[id number] date:mount given:2 grams Route: Intra articular Site given: bilateral knees Given by: Dr. Pizano DRAIN/INJECT MAJOR JOINT OR On: 13-Sep-2008 Intent BURSA ()By: COMFORT Gallegos Comments: Lot #:[id number] date:05-10 Amount given:2.5MLRoute: INTRA ARTICULAR Site given:bilateral knees Given by: Dr. Pizano B 12 Injection, 1000 mcg On: 10-Sep-2008 Intent (J3420)By: COMFORT Gallegos B 12 Injection, 1000 mcg On: 29-Jul-2008 Intent (J3420)By: Denise Collazo Comments: Amt: 1mlLot: [id number]: 02/10Route: IMSite: right deltTolerated: wellGiven By: SCAR Sood Pulse Oximetry (31122)By: Quentin On: 29-Jul-2008 Intent DIE SINKER APPRENTICE, Adeola Aerosol Treatment (40841)By: On: 29-Jul-2008 Intent Ciesa DIE SINKER APPRENTICE, Adeola Aerosol Treatment (43708)By: On: 16-Jul-2008 Intent Sofia Younger DO Comments: done-awnoise resolved and much more air exchange Pulse Oximetry (07891)By: Carisa On: 16-Jul-2008 Sofia Davis DO Comments: 93% Solu- Medrol Injection, 125mg On: 16-Jul-2008 Intent (J2930)By: Sofia Younger DO Comments: Lot #[id number]-6/11Site-right fsnGolh0bl/125mggiven by Debbie Lei LPN B 12 Injection, 1000 mcg On: 30-Apr-2008 Intent (J3420)By: Prema Lei Comments: Lot #[id number]-/10Site-right ejyaeqbTeph7yzyqqjd by Debbie Lei LPN DXA, BONE DENSITY, AXIAL On: 30-Apr-2008 Intent SKELETON (93459)By: Dima DURAN, Comments: estrogen def Sarah Pizano MD, Sarah Rebollar MAMMOGRAM, SCREENING, BOTH On: 30-Apr-2008 Intent BREASTS (91314)By: Dima DURAN, Sarah Pizano MD, Sarah Rebollar B 12 Injection, 1000 mcg On: 27-Mar-2008 Intent (J3420)By: Tonia Garcia Comments: Lot #[id number] date:mount given:.1mlRoute: IMSite given:left deltoidGiven by: EDEN Salcido Pulse Oximetry ([id number])By: On: 27-Mar-2008 Intent Tonia Garcia Comments: 96% Pulse Oximetry ([id number])By: On: 14-Mar-2008 Intent COMFORT Gallegos B 12 Injection, 1000 mcg On: 06-Feb-2008 Intent ([id number])By: Pamella Saavedra CNP Comments: Lot #[id number] date: Amount given:1ml Route: IMSite given:left deltoid Given by: billy Solu -Medrol Injection, 125 mg On: 06-Feb-2008 Intent (J2930)By: Pamella Saavedra CNP Comments: Lot #:[id number] date:mount given:125mgRoute: IMSite given:left gluteal Given by: aretha Pulse Oximetry ([id number])By: Quentin On: 06-Feb-2008 Intent Pamella ARGUETA Aerosol Treatment ([id number])By: On: 06-Feb-2008 Intent Pamella Saavedra CNP B 12 Injection, 1000 mcg On: 21-Dec-2007 Intent (J3420)By: Ledy Nogueira Comments: given in right deltoid, lot#[id number], exp.3.10 >Wf. B 12 Injection, 1000 mcg On: 03-Oct-2007 Intent (J3420)By: Pamella Saavedra CNP Pulse Oximetry ([id number])By: Quentin On: 03-Oct-2007 Intent Pamella ARGUETA Aerosol Treatment ([id number])By: On: 03-Oct-2007 Intent Pamella Saavedra CNP Pulse Oximetry ([id number])By: Lenny, On: 16-Aug-2007 Intent Cira Aerosol Treatment ([id number])By: On: 16-Aug-2007 Intent Sofia Younger DO Comments: no wheeze and better air exchange Solu- Medrol Injection, 125mg On: 16-Aug-2007 Intent ([id number])By: Sofia Younger DO Comments: given in left buttocks.lot # [id number]\Exp 02/2010 SPECIMEN HNDLNG/TRNSPRT, OFFC > On: 16-Aug-2007 Intent LAB ([id number])By: Sofia Younger DO B 12 Injection, 1000 mcg On: 01-Aug-2007 Intent (J3420)By: Prema Lei Comments: Lot #[id number]/12Site-left [id number] by Debbie Lei LPN CT - ChestBy: Sarah Pizano MD On: 01-Aug-2007 Intent Sarah Pizano MD FLU VAC, SPLIT, >3 YEARS, On: 18-Apr-2007 Intent INTRAMUSC ([id number])By: Sarah Pizano MD, MD, Dana M IMMUNIZ ADMNIN, 1 VAC, On: 18-Apr-2007 Intent SNGL/COMBO ([id number])By: Sarah Pizano MD, MD, Dana M B 12 Injection, 1000 mcg On: 18-Apr-2007 Intent ([id number])By: Sarah Pizano MD, MD, Dana M B 12 Injection, 1000 mcg On: 07-Mar-2007 Intent (J3420)By: Sarah Pizano MD, MD, Dana M Breast Screening - BilateralBy: On: 10-Jan-2007 Intent Sarah Pizano MD, MD, Dana M Bone Density StudyBy: Dima On: 10-Jan-2007 Intent Sarah DURAN MD, Dana M B 12 Injection, 1000 mcg On: 10-Jan-2007 Intent (J3420)By: COMFORT [facility] - ChestBy: Dima DURAN, On: 21-Nov-2006 Intent Sarah Ghosh MD 12 Injection, 1000 mcg On: 26-Oct-2006 Intent (J3420)By: Mast RN, Andie SPECIMEN HNDLNG/TRNSPRT, OFFC > On: 10-Oct-2006 Intent LAB ([id number])By: Sarah Pizano MD, MD, Dana M Solu -Medrol Injection, 125 mg On: 16-Sep-2006 Intent ([id number])By: Sarah Pizano MD Comments: lot # [id number] exp 04-11 [address] rt. gluteal by Sarah Chacon lpn, MD Pulse Oximetry ([id number])By: On: 16-Sep-2006 Intent Sarah Pizano MD, MD, Dana M Aerosol Treatment ([id number])By: On: 16-Sep-2006 Intent Sarah Pizano MD, MD, Dana M Pulse Oximetry ([id number])By: On: 04-Aug-2006 Intent Sarah Pizano MD, MD, Dana M EKG ([id number])By: Sarah Pizano MD On: 08-Jul-2006 Intent Sarah Morfin MD IMMUNIZ ADMNIN, 1 VAC, On: 06-May-2006 Intent SNGL/COMBO ([id number])By: Ramiro ABBOTT, Peg FLU VAC, SPLIT, >3 YEARS, On: 06-May-2006 Intent INTRAMUSC ([id number])By: Ramiro ABBOTT, Comments: Lot #:Expiration date:Amount given:Route: imSite given:r armGiven by: galina golden lpn Peg Echo CompleteBy: Dima DURAN, On: 19-Apr-2006 Intent Sarah Ghosh MD CT - Abdomen & PelvisBy: Dima On: 19-Apr-2006 Intent Sarah DURAN MD, Dana M Comments: ?obstruction, pancreatitis, attention kidney cyst send to [facility] gastrologist [facility] Planned Medications INJECTION, METHYLPREDNISOLONE SODIUM SUCCINATE, UP TO 125 MG Ordered: 14-Oct-2011 Pending Sofia Younger DO INJECTION, METHYLPREDNISOLONE SODIUM SUCCINATE, UP TO 125 MG Ordered: 04-Feb-2015 Pending Ciesa DIE SINKER APPRENTICE, Adeola INJECTION, METHYLPREDNISOLONE SODIUM SUCCINATE, UP TO 125 MG Ordered: 05-Feb-2015 Pending Ciesa DIE SINKER APPRENTICE, Adeola INJECTION, TRIAMCINOLONE ACETONIDE, NOT OTHERWISE SPECIFIED, 10 MG Ordered: 08-Feb-2011 Pending Sarah Pizano MD, MD, Dana M INJECTION, TRIAMCINOLONE ACETONIDE, NOT OTHERWISE SPECIFIED, 10 MG Ordered: 09-Aug-2011 Pending Sarah Pizano MD, MD, Dana M Phenergan 50 MG/ML Injection Solution Ordered: 12-Dec-2013 Pending Ciesjunie ARGUETA Adeola Vitamin B-12 1000 MCG/ML Injection Solution Ordered: 22-Mar-2011 PendCOMFORT Harper Instructions Name Dates Details BMI 34.0-34.9,adult : How to access health information online Indication: BMI 34.0-34.9,adult BMI 34.0-34.9,adult : How to access health information online - Detail Indication: BMI 34.0-34.9,adult BMI 34.0-34.9,adult : Patient Instructions Indication: BMI 34.0-34.9,adult BMI 36.0-36.9,adult : How to access health information online Indication: BMI 36.0-36.9,adult BMI 36.0-36.9,adult : How to access health information online - Detail Indication: BMI 36.0-36.9,adult BMI 36.0-36.9,adult : Patient Instructions Indication: BMI 36.0-36.9,adult BMI 36.0-36.9,adult : How to access health information online Indication: BMI 36.0-36.9,adult BMI 36.0-36.9,adult : How to access health information online - Detail Indication: BMI 36.0-36.9,adult BMI 36.0-36.9,adult : Patient Instructions Indication: BMI 36.0-36.9,adult Well woman exam (Renamed from Encounter for well woman exam) : How to access health information online Indication: Well woman exam (Renamed from Encounter for well woman exam) Well woman exam (Renamed from Encounter for well woman exam) : How to access health information online - Detail Indication: Well woman exam (Renamed from Encounter for well woman exam) Well woman exam (Renamed from Encounter for well woman exam) : Patient Instructions Indication: Well woman exam (Renamed from Encounter for well woman exam) BMI 34.0-34.9,adult : How to access health information online Indication: BMI 34.0-34.9,adult BMI 34.0-34.9,adult : How to access health information online - Detail Indication: BMI 34.0-34.9,adult BMI 34.0-34.9,adult : Patient Instructions Indication: BMI 34.0-34.9,adult Rash : How to access health information online Indication: Rash Rash : How to access health information online - Detail Indication: Rash Rash : Patient Instructions Indication: Rash Burn : How to access health information online Indication: Burn Burn : How to access health information online - Detail Indication: Burn Burn : Patient Instructions Indication: Burn Burn : How to access health information online Indication: Burn Burn : How to access health information online - Detail Indication: Burn Burn : Patient Instructions Indication: Burn BMI 33.0-33.9,adult : How to access health information online Indication: BMI 33.0-33.9,adult BMI 33.0-33.9,adult : How to access health information online - Detail Indication: BMI 33.0-33.9,adult BMI 33.0-33.9,adult : Patient Instructions Indication: BMI 33.0-33.9,adult BMI 33.0-33.9,adult : How to access health information online Indication: BMI 33.0-33.9,adult BMI 33.0-33.9,adult : How to access health information online - Detail Indication: BMI 33.0-33.9,adult BMI 33.0-33.9,adult : Patient Instructions Indication: BMI 33.0-33.9,adult BMI 33.0-33.9,adult : How to access health information online Indication: BMI 33.0-33.9,adult BMI 33.0-33.9,adult : How to access health information online - Detail Indication: BMI 33.0-33.9,adult BMI 33.0-33.9,adult : Patient Instructions Indication: BMI 33.0-33.9,adult PFO (patent foramen ovale) : How to access health information online Indication: PFO (patent foramen ovale) PFO (patent foramen ovale) : How to access health information online - Detail Indication: PFO (patent foramen ovale) PFO (patent foramen ovale) : Patient Instructions Indication: PFO (patent foramen ovale) Flu-like symptoms : How to access health information online Indication: Flu-like symptoms Flu-like symptoms : How to access health information online - Detail Indication: Flu-like symptoms Flu-like symptoms : Patient Instructions Indication: Flu-like symptoms Well woman exam (Renamed from Encounter for well woman exam) : How to access health information online Indication: Well woman exam (Renamed from Encounter for well woman exam) Well woman exam (Renamed from Encounter for well woman exam) : How to access health information online - Detail Indication: Well woman exam (Renamed from Encounter for well woman exam) Well woman exam (Renamed from Encounter for well woman exam) : Patient Instructions Indication: Well woman exam (Renamed from Encounter for well woman exam) GERD (gastroesophageal reflux disease) : How to access health information online Indication: GERD (gastroesophageal reflux disease) GERD (gastroesophageal reflux disease) : How to access health information online - Detail Indication: GERD (gastroesophageal reflux disease) GERD (gastroesophageal reflux disease) : Patient Instructions Indication: GERD (gastroesophageal reflux disease) 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 : How to access health information online Indication: 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 : How to access health information online - Detail Indication: 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 : Patient Instructions Indication: 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 High blood triglycerides : How to access health information online Indication: High blood triglycerides High blood triglycerides : How to access health information online - Detail Indication: High blood triglycerides High blood triglycerides : Patient Instructions Indication: High blood triglycerides GERD (gastroesophageal reflux disease) : How to access health information online Indication: GERD (gastroesophageal reflux disease) GERD (gastroesophageal reflux disease) : How to access health information online - Detail Indication: GERD (gastroesophageal reflux disease) GERD (gastroesophageal reflux disease) : Patient Instructions Indication: GERD (gastroesophageal reflux disease) Vitamin D deficiency, unspecified : How to access health information online Indication: Vitamin D deficiency, unspecified Vitamin D deficiency, unspecified : How to access health information online - Detail Indication: Vitamin D deficiency, unspecified Vitamin D deficiency, unspecified : Patient Instructions Indication: Vitamin D deficiency, unspecified Dysthymic : How to access health information online Indication: Dysthymic Dysthymic : How to access health information online - Detail Indication: Dysthymic Dysthymic : Patient Instructions Indication: Dysthymic Need for prophylactic vaccination and inoculation against influenza : Patient Instructions Indication: Need for prophylactic vaccination and inoculation against influenza Asthma : Patient Instructions Indication: Asthma Nausea : Patient Instructions Indication: Nausea Personal history of venous thrombosis and embolism : Patient Instructions Indication: Personal history of venous thrombosis and embolism Pharyngitis, acute : Patient Instructions Indication: Pharyngitis, acute Fibromyalgia : Patient Instructions Indication: Fibromyalgia Pre-operative examination : Patient Instructions Indication: Pre-operative examination Asthma : Patient Instructions Indication: Asthma Cough : Patient Instructions Indication: Cough Advance Directives Name Dates Details Immunization Registry [place] - Effective on Effective: 29-Apr-201704/29/2017. Expiration date unspecified. Patient chose Declined. Encounters Office Visit On: 31-Mar-2018 14:07 Encounter Diagnosis: Need for prophylactic vaccination and inoculation against influenza (Renamed from Need for immunization against influenza) End: 02-Apr-2018 20:55 [facility] Order On: 16-Mar-2018 15:49 Encounter Diagnosis: Chronic pancreatitis (577.1) End: 16-Mar-2018 15:52 [facility] Office Visit On: 20-Dec-2017 11:36 Encounter Reason: Follow up for chronic medical issues - The patient feels well with minor complaints, has decreased energy level and is sleeping well. Patient has been compliant with instructions. Current medication use End: 20-Dec-2017 12:50 : no side effects, compliant with dosing regimen and considered effective by patient. Patient sleeps 7 hours per night. Impact of disease: emotional impact-mild. Nutrition: balanced diet and supplementa l vitamins. The medical issues the patient is following up for include asthma, cardiac issues, depression, fibromyalgia, gastric reflux, high cholesterol, osteoarthritis and other (migraine, chronic beau n, chronic pancreatitis, anemia, allergic rhinitis).Encounter Diagnosis: BMI 34.0- 34.9,adult, Current nonsmoker (Renamed from Current non-smoker), Port-a-cath in place, Osteoarthritis, Sleep disorder, GERD (gastroesophageal reflux disease), Fibromyalgia (729.1), Asthma, Postmenopausal (Renamed from Post-menopausal), Respiratory bronchiolitis associated interstitial lung disease, Fibrocystic breast disease, High blood triglycerides, Deterioration of spinal disc of lower back, Personal history of venous thrombosis and embolism, Migraine (346.80), Obesity, unspecified, Chronic pain, Hot flashes (Renamed from Menopausal flushing), Cervical radiculopathy (723.4), Allergic rhinitis, S/P gastric bypass, Chronic pancreatitis (577.1), Iron deficiency anemia due to dietary causes, Well woman exam (Renamed from Encounter for well woman exam), OTHER AND UNSPECIFIED POSTSURGICAL NONABSORPTION, Dysthymic, PFO (patent foramen ovale), Other vitamin B12 deficiency anemia (281.1), Polyarthropathy, inflammatory, Vitamin D deficiency, unspecified, BMI 36.0-36.9,adult, Encounter for screening mammogram for breast cancer (Renamed from Encounter for screening mammogram f or malignant neoplasm of breast) [facility] Office Visit On: 02-Sep-2017 13:52 Encounter Reason: Follow up acute care visit - The patient feeling better since last seen and improving. Patient has been compliant with instructions. Current medication use: no side effects and compliant with dosing reg End: 02-Sep-2017 14:24 imen. Patient sleeps 7 hours per night. Impact of disease: emotional impact-moderate. Nutrition: balanced diet and supplemental vitamins. The medical issues the patient is following up for include asthma and other (fever of unknown origin). Encounter Diagnosis: BMI 36.0-36.9,adult, Current nonsmoker (Renamed from Current non-smoker), Fever, Iron deficiency anemia due to dietary causes, Chronic pancreatitis (577.1), S/P gastric bypass [facility] Order On: 21-Jul-2017 9:53 Encounter Diagnosis: Vitamin D deficiency, unspecified End: 21-Jul-2017 9:55 [facility] Office Visit On: 20-Jul-2017 12:58 Encounter Reason: Follow up for chronic medical issues - The patient does not feel well and has decreased energy level. Patient has been compliant with instructions. Current medication use: no side effects and compliant End: 20-Jul-2017 13:41 with dosing regimen. Patient sleeps 7 hours per night. Impact of disease: emotional impact-moderate. Nutrition: balanced diet and supplemental vitamins. The medical issues the patient is following up fo r include asthma, cardiac issues, depression, fibromyalgia, gastric reflux, high cholesterol, osteoarthritis and other (DDD, overweight, PFO, anemia, B12 def., chronic pain).Encounter Diagnosis: BMI 36.0-36.9,adult, Current nonsmoker (Renamed from Current non-smoker), Polyarthropathy, inflammatory, Fever, Iron deficiency anemia due to dietary causes, Vitamin D deficiency, unspecified [facility] Office Visit On: 29-Apr-2017 11:20 Encounter Reason: Follow up tests - Date: (04/04 blood work)., [ADDITIONAL REASON] Physical female exam - Last seen between 1-3 months ago. General health: feels w End: 03-May-2017 6:38 ell with minor complaints, has decreased energy level and is sleeping well (with sleeping aid). The patient's appetite is normal. Nutrition: normal/adequate. Exercises 3 days per week. Sleeps on average 10 hours per night. Elimination problems include urinary incontinence (urgency). There are no current emotional problems. screening, colonoscopy and screening, mammography (03/2016). Encounter Diagnosis: Well woman exam (Renamed from Encounter for well woman exam), Current nonsmoker (Renamed from Current non-smoker), Need for prophylactic vaccination and inoculation against influenza (Renamed from Need for immunization against influenza), High blood triglycerides, Port-a-cath in place, Cervical radiculopathy (723.4), Fibrocystic breast disease, GERD (gastroesophageal reflux disease), Chronic pain, Personal history of venous thrombosis and embolism, Migraine (346.80), Postmenopausal (Renamed from Post-menopausal), BMI 34.0-34.9,adult, Osteoarthritis, Fibromyalgia (729.1), Chronic pancreatitis (577.1), PFO (patent foramen ovale), Sleep disorder, S/P gastric bypass, Vitamin D deficiency, unspecified, Iron deficiency anemia due to dietary causes, Respiratory bronchiolitis associated interstitial lung disease, Asthma, Polyarthropathy, inflammatory, Other vitamin B12 deficiency anemia (281.1), Obesity, unspecified, Dysthymic, OTHER AND UNSPECIFIED POSTSURGICAL NONABSORPTION, EBV positive mononucleosis syndrome, 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, Allergic rhinitis, Degenerative Disc Disease - Lumbar (722.52), Degenerative Disc Disease (722.6), Chest pain at rest, Hot flashes (Renamed from Menopausal flushing), Encounter for screening mammogram for breast cancer (Renamed from Encounter for screening mammogram for malignant neoplasm of breast) [facility] Office Visit On: 13-Jan-2017 14:12 Encounter Reason: Follow up for chronic medical issues - The patient feels well with minor complaints and has decreased energy level. Patient has been compliant with instructions. Current medication use: no side effects, End: 13-Jan-2017 15:01 compliant with dosing regimen and considered effective by patient. Patient sleeps 7 hours per night. Impact of disease: emotional impact-mild. Nutrition: balanced diet and supplemental vitamins. The me dical issues the patient is following up for include asthma, blood sugar issues, cardiac issues, depression, fibromyalgia, gastric reflux, high cholesterol, osteoarthritis and other (chronic pancreatiti s, migraine, anemia, vitamin d def., PFO, EBV positive, PFO, cervical radiculopathy, obesity).Encounter Diagnosis: BMI 34.0-34.9,adult, Current nonsmoker (Renamed from Current non-smoker), Prediabetes, Postmenopausal (Renamed from Post-menopausal), Migraine (346.80), Osteoarthritis, PFO (patent foramen ovale), Chronic pancreatitis (577.1), Fibromyalgia (729.1), Cervical radiculopathy (723.4), Well woman exam (Renamed from Encounter for well woman exam), Port-a-cath in place, High blood triglycerides, Fibrocystic breast disease, Personal history of venous thrombosis and embolism, Chronic pain, GERD (gastroesophageal reflux disease), Dysthymic, Respiratory bronchiolitis associated interstitial lung disease, Asthma, Obesity, unspecified, Other vitamin B12 deficiency anemia (281.1), Polyarthropathy, inflammatory, OTHER AND UNSPECIFIED POSTSURGICAL NONABSORPTION, Allergic rhinitis, 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, EBV positive mononucleosis syndrome, Vitamin D deficiency, unspecified, Iron deficiency anemia due to dietary causes, Sleep disorder, S/P gastric bypass, Hyponatremia (276.1), Flu-like symptoms, Chest pain at rest, Abdominal pain, Yeast infection, BMI 33.0-33.9,adult, Burn, Yeast infection of the vagina [facility] Office Visit On: 27-Dec-2016 15:04 Encounter Diagnosis: Rash (782.1), Current nonsmoker (Renamed from Current non-smoker), Polyarthropathy, inflammatory End: 27-Dec-2016 15:39 [facility] Office Visit On: 13-Dec-2016 13:44 Encounter Reason: Follow up acute care visit - The patient does not feel well and has decreased energy level. Patient has been compliant with instructions. Current medication use: no side effects, compliant with dosing r End: 13-Dec-2016 14:07 egimen and considered effective by patient. Patient sleeps 7 hours per night. Impact of disease: emotional impact-moderate. Nutrition: balanced diet and supplemental vitamins. The medical issues the pat ient is following up for include other (burn is getting better and improving, however she has myalgia, fever, cough, and fatigue).Encounter Diagnosis: BMI 33.0- 33.9,adult, Burn, Current nonsmoker (Renamed from Current non-smoker), Unspecified bacterial pneumonia [facility] Office Visit On: 06-Dec-2016 12:59 Encounter Diagnosis: Burn, Nonsmoker, BMI 33.0-33.9,adult End: 06-Dec-2016 14:14 [facility] Office Visit On: 01-Oct-2016 14:04 Encounter Reason: Follow up acute care visit - The patient feeling better since last seen and improving. Patient has been compliant with instructions. Current medication use: no side effects, compliant with dosing regime End: 01-Oct-2016 14:53 n and considered effective by patient. Patient sleeps 7 hours per night. Impact of disease: emotional impact-mild. Nutrition: balanced diet and supplemental vitamins. The medical issues the patient is following up for include other (EB). Encounter Diagnosis: BMI 33.0-33.9,adult, Current nonsmoker (Renamed from Current non-smoker), EBV positive mononucleosis syndrome, Respiratory bronchiolitis associated interstitial lung disease, Chronic pancreatitis (577.1), Epigastric pain (789.06) , Other vitamin B12 deficiency anemia (281.1), Iron deficiency anemia due to dietary causes, Vitamin D deficiency, unspecified, 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, Need for zoster vaccination [facility] Office Visit On: 24-Aug-2016 13:48 Encounter Reason: Follow up acute care visit - The patient feeling better since last seen and improving. Patient has been compliant with instructions. Current medication use: no side effects and compliant with dosing reg End: 24-Aug-2016 14:49 imen. Patient sleeps 7 hours per night. Impact of disease: emotional impact-mild. Nutrition: balanced diet and supplemental vitamins. The medical issues the patient is following up for include other (fatigue, anemia ).Encounter Diagnosis: BMI 33.0-33.9,adult, Nonsmoker, EBV positive mononucleosis syndrome, Fever [facility] Order On: 13-Aug-2016 16:30 Encounter Diagnosis: Fatigue (780.79) End: 13-Aug-2016 16:32 [facility] Office Visit On: 23-Jul-2016 12:20 Encounter Reason: Fatigue - Symptoms include fatigue and myalgias (no more than normal). Onset was week(s) ago. The symptoms occur constantly. The patient describes this as worsening. Associated symptoms include sore thr End: 23-Jul-2016 13:10 oat, while associated symptoms do not include headache, nausea, vomiting or abdominal pain.Encounter Diagnosis: BMI 33.0-33.9,adult, Nonsmoker, Pharyngitis, acute, Fatigue (780.79), Iron deficiency anemia due to dietary causes, Allergic rhinitis, Vitamin D deficiency, unspecified [facility] Order On: 20-Jul-2016 16:02 Encounter Diagnosis: Chronic pancreatitis (577.1), Iron deficiency anemia due to dietary causes End: 20-Jul-2016 16:06 [facility] Office Visit On: 04-Jun-2016 14:54 Encounter Diagnosis: PFO (patent foramen ovale), Current nonsmoker (Renamed from Current non-smoker), Fever, Port-a-cath in place End: 04-Jun-2016 17:36 [facility] Office Visit On: 17-May-2016 15:06 Encounter Diagnosis: Need for prophylactic vaccination (Renamed from Need for immunization against influenza) End: 18-May-2016 6:26 [facility] Office Visit On: 27-Apr-2016 14:00 Encounter Reason: Cough - Symptoms include cough, dyspnea, wheezing and runny nose. The cough is described as moist. Cough onset was 1 week(s) ago. Associated symptoms include postnasal drainage and hoarseness. Previous End: 27-Apr-2016 14:43 presentation included a cough, a runny nose, dyspnea, hoarseness and muscle ache. Note for Cough: all week feeling low, with fever of 102 and SOB Encounter Diagnosis: Flu-like symptoms, BRONCHITIS, NOT SPECIFIED ACUTE OR CHRONIC (490.), Wheezing (786.07) [facility] Office Visit On: 02-Apr-2016 15:43 Encounter Diagnosis: Personal history of venous thrombosis and embolism End: 02-Apr-2016 15:46 [facility] Medicine Lab Order On: 19-Mar-2016 13:43 Encounter Diagnosis: Chest pain at rest End: 19-Mar-2016 13:45 [facility] Lab Order On: 18-Mar-2016 10:23 Encounter Diagnosis: Chest pain at rest End: 18-Mar-2016 10:26 [facility] Office Visit On: 09-Mar-2016 13:33 Encounter Diagnosis: Well woman exam (Renamed from Encounter for well woman exam), Current nonsmoker (Renamed from Current non-smoker), BMI 34.0-34.9,adult, Yeast infection of the vagina, Chest pain at rest, PFO (patent foramen ovale), Dysthymic, End: 16-Mar-2016 8:16 Fibrocystic breast disease, 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, Vitamin D deficiency, unspecified, Iron deficiency anemia due to dietary causes, Other vitamin B12 deficiency anemia (281.1), Personal history of venous thrombosis and embolism, Obesity, unspecified, Pain of right lower extremity, High blood triglycerides, Asthma, Fibromyalgia (729.1), Osteoarthritis, Migraine (346.80), Hyponatremia (276.1), Chronic pancreatitis (577.1), Respiratory bronchiolitis associated interstitial lung disease, Allergic rhinitis, Cervical radiculopathy (723.4), GERD (gastroesophageal reflux disease), Chronic pain, Polyarthropathy, inflammatory, Abdominal pain, Screening for osteoporosis (Renamed from Encounter for screening for osteoporosis), Flu-like symptoms, AFTERCARE, LONG-TERM USE, ANTICOAGULANTS (V58.61), Sinusitis, Yeast infection, Encounter for screening mammogram for breast cancer (Renamed from Encounter for screening mammogram for malignant neoplasm of breast), Postmenopausal (Renamed from Post-menopausal), Sleep disorder, S/P gastric bypass, Prediabetes, OTHER AND UNSPECIFIED POSTSURGICAL NONABSORPTION, Port-a-cath in place [facility] Nurse Visit (Non-[place]) On: 20-Feb-2016 12:12 [facility] End: 20-Feb-2016 12:15 Office Visit On: 16-Feb-2016 10:21 Encounter Reason: Pancreatitis, Acute - Symptoms include abdominal pain, loss of appetite and nausea, while symptoms do not include diarrhea, fever or vomiting. The pain is located in the epigastrium. The pain radiates t End: 16-Feb-2016 11:13 o the chest. The patient describes the pain as sharp. Onset was 1 week(s) ago. The patient describes this as unchanged. Associated symptoms include abdominal distension and chest pain. The patient is not currently being treated for this problem. Encounter Diagnosis: Chronic pancreatitis (577.1), Abdominal pain, Hyponatremia (276.1) [facility] Office Visit On: 31-Oct-2015 10:52 Encounter Reason: Flu Like Symptoms - Symptoms include fever, chills, runny nose, productive cough, facial pressure and headache. Onset was sudden 3 day(s) ago. There is no known event that preceded symptom onset. The pa End: 31-Oct-2015 11:37 juan describes this as worsening. Associated symptoms include fever. Current treatment includes oral decongestants. Previous presentation included runny nose, postnasal drainage and productive cough.Encounter Diagnosis: Sinusitis, Allergic rhinitis (477.9) [facility] Office Visit On: 08-Sep-2015 16:46 Encounter Reason: Flu Like Symptoms - No changes in management were made at the last visit. The symptoms occur intermittently. The patient describes this as unchanged. Symptoms are not exacerbated by activity, lying down End: 08-Sep-2015 17:19 or cold air. Symptoms are not relieved by cough suppressants, inhaler use, lying down, non-prescription cold medications or oral fluids. Associated symptoms include fever and chills. The patient is not currently being treated for this problem. Previous presentation included fever and chills.Encounter Diagnosis: Flu-like symptoms, Abdominal pain [facility] Refill Request On: 20-Aug-2015 11:43 Encounter Diagnosis: Chronic pain End: 20-Aug-2015 11:49 [facility] Office Visit On: 15-Jul-2015 13:28 Encounter Reason: Follow up for chronic medical issues - The patient feels well with minor complaints, has good energy level (improving) and is sleeping well (sometimes no). Patient has been compliant with instructions. End: 15-Jul-2015 14:27 Current medication use: no side effects, compliant with dosing regimen and considered effective by patient. Patient sleeps 7 hours per night. Impact of disease: emotional impact-mild. Nutrition: balance d diet and supplemental vitamins. The medical issues the patient is following up for include asthma, cardiac issues, depression, fibromyalgia, gastric reflux, high cholesterol, osteoarthritis and other (anemia, chronic pancreatitis, intertitial lung disease, obesity, FBD, DDD ).Encounter Diagnosis: Osteoarthritis, Vitamin D deficiency, unspecified, GERD (gastroesophageal reflux disease), Other vitamin B12 deficiency anemia (281.1), Migraine (346.80), Obesity, unspecified, Chronic pain syndrome (338.4), Chronic pancreatitis (577.1), Allergic rhinitis (477.9), POLYARTHROPATHY, INFLAMMATORY NOS (714.9), High blood triglycerides, Fibromyalgia (729.1), HX, PERSONAL, VENOUS THROMBOSIS/EMBOLISM (V12.51), AFTERCARE, LONG-TERM USE, ANTICOAGULANTS (V58.61), ANEMIA DUE TO DIETARY IRON DEFICIENCY (280.1), BMI 34.0-34.9,adult, 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, Cough, Bronchitis, Flu-like symptoms, Pain of right lower extremity, Cervical radiculopathy (723.4), Interstitial lung disease (516.34), Asthma, Fibrocystic breast disease, Dysthymic, Encounter for screening mammogram for breast cancer (Renamed from Encounter for screening mammogram for malignant neoplasm of breast), Screening for osteoporosis (Renamed from Encounter for screening for osteoporosis) [facility] Office Visit On: 08-Jul-2015 15:05 Encounter Reason: Cough - The last clinic visit was 5 day(s) ago. No changes in management were made at the last visit. Symptoms include cough, dyspnea and runny nose. The cough is described as productive. Cough onset wa End: 08-Jul-2015 15:44 s sudden. Onset of cough followed cold symptoms. The cough occurs constantly. Symptoms are described as worsening. Symptoms are exacerbated by lying down. Symptoms are not relieved by air conditioning, humidified air, warm drinks, warm weather, avoiding irritants, resting, lying down, sitting up, cough drops, cough medicine, acetaminophen, nonsteroidal anti- inflammatory drugs or inhaled bronchodilator use. Associated symptoms include postnasal drainage. Current treatment includes nonsteroidal anti-inflammatory drugs. By report there is good compliance with treatment. Previous presentation included a cough, a runny nose, dyspnea and muscle ache. Encounter Diagnosis: Flu-like symptoms, Cough, Wheezing (786.07), Bronchitis [facility] Phone Encounter On: 30-Jun-2015 8:42 Encounter Diagnosis: Pain of right lower extremity End: 30-Jun-2015 9:01 [facility] Annotation/Addendum On: 24-Jun-2015 14:58 Encounter Diagnosis: 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 End: 24-Jun-2015 15:00 [facility] Office Visit On: 24-Jun-2015 9:44 Encounter Reason: Back Pain Lumbar, Acute - Symptoms include pain, muscle spasm and decreased range of motion. Symptoms are located in the right lumbosacral area and symmetrically. The pain radiates to the right groin, r End: 24-Jun-2015 10:39 ight buttock, right thigh and right lower leg. The patient describes the pain as sharp, burning and throbbing. Onset was day(s) ago. The symptoms occur constantly. The patient describes this pain as wor sening. Symptoms are exacerbated by sitting. Associated symptoms do not include urinary incontinence. Current treatment includes nonsteroidal anti-inflammatory drugs and heating pad.Encounter Diagnosis: Degenerative disc disease, Pain of right lower extremity [facility] Annotation/Addendum On: 12-May-2015 13:04 Encounter Diagnosis: DEFICIENCY, VITAMIN D NOS (268.9) End: 12-May-2015 14:14 [facility] Refill Request On: 17-Apr-2015 12:04 Encounter Diagnosis: Asthma End: 17-Apr-2015 12:10 [facility] Office Visit On: 15-Apr-2015 14:50 Encounter Reason: Follow up for chronic medical issues - The patient feels well with minor complaints, has decreased energy level and is sleeping well. Patient has been compliant with instructions. Current medication use End: 15-Apr-2015 15:38 : no side effects, compliant with dosing regimen and considered effective by patient. Patient sleeps 8 hours per night. Impact of disease: emotional impact-mild. Nutrition: balanced diet and supplementa l vitamins. The medical issues the patient is following up for include asthma, cardiac issues, depression, fibromyalgia, gastric reflux, high cholesterol, osteoarthritis and other (anemia, chronic pancr eatitis, intertitial lung disease, obesity, FBD, DDD ).Encounter Diagnosis: GERD (gastroesophageal reflux disease), High blood triglycerides, Need for prophylactic vaccination (Renamed from Need for immunization against influenza), ANEMIA DUE TO DIETARY IRON DEFICIENCY (280.1), POLYARTHROPATHY, INFLAMMATORY NOS (714.9), Interstitial lung disease (516.34), Depression/Anxiety (300.4), Fibromyalgia (729.1), AFTERCARE, LONG-TERM USE, ANTICOAGULANTS (V58.61), Cervical radiculopathy (723.4), HX, PERSONAL, VENOUS THROMBOSIS/EMBOLISM (V12.51), Vulvar irritation, Allergic rhinitis (477.9), Migraine (346.80), Osteoarthritis (715.96), Other vitamin B12 deficiency anemia (281.1), Degenerative Disc Disease (722.6), Obesity, unspecified, Asthma, DEFICIENCY, VITAMIN D NOS (268.9), BMI 34.0-34.9, ADULT (V85.34), Fibrocystic Breast Disease (610.2), Chronic pancreatitis (577.1), Chronic pain syndrome (338.4) [facility] Prescription Refill On: 13-Feb-2015 11:27 Encounter Diagnosis: Dermatitis End: 13-Feb-2015 11:30 [facility] Office Visit On: 07-Feb-2015 13:15 Encounter Reason: Upper respiratory infection - The duration of the symptoms are 1 1 week The course has been without change. Associated features include cough (yellowish white).Encounter Diagnosis: Asthma (493.11), End: 07-Feb-2015 13:36 BRONCHITIS, NOT SPECIFIED ACUTE OR CHRONIC (490.) [facility] Nurse Visit On: 05-Feb-2015 15:19 Encounter Diagnosis: Asthma (493.11) End: 05-Feb-2015 15:52 [facility] Lab Order On: 05-Feb-2015 10:10 Encounter Diagnosis: Cough (786.2) End: 05-Feb-2015 10:11 [facility] Office Visit On: 04-Feb-2015 15:10 Encounter Reason: Cough - The onset of the cough has been gradual. The cough is characterized as productive of mucoid sputum. The amount of sputum produced is half a cup per day. The cough occurs all the time. The sympt End: 04-Feb-2015 15:45 oms have been associated with dyspnea, fever, headache, hoarseness and wheezing, while the symptoms have not been associated with dysphagia, long history of smoking, night sweats, runny nose or sore throat.Encounter Diagnosis: ASTHMA, UNSPECIFIED, WITH ACUTE EXACERBATION (493.92), Wheezing (786.07) [facility] Office Visit On: 31-Jan-2015 13:37 Encounter Diagnosis: Rash (782.1) End: 03-Feb-2015 8:02 [facility] Office Visit On: 14-Jan-2015 12:52 Encounter Reason: Follow up for chronic medical issues - The patient feels well with no complaints, has decreased energy level and is sleeping well. Patient has been compliant with instructions. Current medication use: n End: 14-Jan-2015 13:33 o side effects, compliant with dosing regimen and considered effective by patient. Patient sleeps 8 hours per night. Impact of disease: emotional impact-mild. Nutrition: balanced diet and supplemental v itamins. The medical issues the patient is following up for include asthma, cardiac issues, depression, fibromyalgia, gastric reflux, high cholesterol, osteoarthritis and other (anemia, chronic pancreat itis, intertitial lung disease, obesity, FBD, DDD )., [ADDITIONAL REASON] Follow up tests - Date: (12.13.14). Encounter Diagnosis: GERD (530.81), Asthma (493.11), Fibromyalgia (729.1), DEFICIENCY, VITAMIN D NOS (268.9), Hypertriglycerides (272.1), BMI 34.0-34.9, ADULT (V85.34), POLYARTHROPATHY, INFLAMMATORY NOS (714.9), Other specified intestinal malabsorption (Renamed from Other intestinal malabsorption), Depression/Anxiety (300.4), Migraine (346.80), Fibrocystic Breast Disease (610.2), Osteoarthritis (715.96), Degenerative Disc Disease (722.6), Other vitamin B12 deficiency anemia (281.1), Chronic pain syndrome (338.4), Chronic pancreatitis (577.1), Allergic rhinitis (477.9), Vulvar irritation, Obesity,unspecified (278.00), HX, PERSONAL, VENOUS THROMBOSIS/EMBOLISM (V12.51), ANEMIA DUE TO DIETARY IRON DEFICIENCY (280.1), Cervical radiculopathy (723.4), AFTERCARE, LONG-TERM USE, ANTICOAGULANTS (V58.61), Interstitial lung disease (516.34), Breast cancer screening [facility] Office Visit On: 15-Oct-2014 13:14 Encounter Reason: Follow up for chronic medical issues - The patient feels well with minor complaints (coughs, wheezing, nasal drainage. Worse at nighttime. Also, vaginal dryness), has decreased energy level and is sleep End: 15-Oct-2014 13:51 ing well. Patient has been compliant with instructions. Current medication use: no side effects, compliant with dosing regimen and considered effective by patient. Patient sleeps 8 hours per night. Impa ct of disease: emotional impact-mild. Nutrition: balanced diet and supplemental vitamins. The medical issues the patient is following up for include asthma, cardiac issues, depression, fibromyalgia, gas tric reflux, high cholesterol, osteoarthritis and other (anemia, chronic pancreatitis, intertitial lung disease, obesity, FBD, DDD ).Encounter Diagnosis: Hypertriglycerides (272.1), Osteoarthritis (715.96), DEFICIENCY, VITAMIN D NOS (268.9), Fibrocystic Breast Disease (610.2), Other vitamin B12 deficiency anemia (281.1), Degenerative Disc Disease (722.6), Migraine (346.80), POLYARTHROPATHY, INFLAMMATORY NOS (714.9), BMI 34.0-34.9, ADULT (V85.34), Depression/Anxiety (300.4), Fibromyalgia (729.1), Asthma (493.11), Other specified intestinal malabsorption (Renamed from Other intestinal malabsorption), GERD (530.81), Chronic pain syndrome (338.4), Cervical radiculopathy (723.4), ANEMIA DUE TO DIETARY IRON DEFICIENCY (280.1), Vulvar irritation, Interstitial lung disease (516.34), AFTERCARE, LONG-TERM USE, ANTICOAGULANTS (V58.61), HX, PERSONAL, VENOUS THROMBOSIS/EMBOLISM (V12.51), Allergic rhinitis (477.9), Chronic pancreatitis (577.1), Obesity,unspecified (278.00) [facility] Office Visit On: 16-Jul-2014 13:17 Encounter Reason: Follow up for chronic medical issues - The patient feels well with minor complaints (coughs, wheezing, nasal drainage. Worse at nighttime. Also, vaginal dryness), has decreased energy level and is sleep End: 16-Jul-2014 14:34 ing well. Patient has been compliant with instructions. Current medication use: no side effects, compliant with dosing regimen and considered effective by patient. Patient sleeps 8 hours per night. Impa ct of disease: emotional impact-mild. Nutrition: balanced diet and supplemental vitamins. The medical issues the patient is following up for include asthma, cardiac issues, depression, fibromyalgia, gas tric reflux, high cholesterol, osteoarthritis and other (anemia, chronic pancreatitis, intertitial lung disease, obesity, FBD, DDD )., [ADDITIONAL REASON] Follow up tests - Date: (07/02/14 blood work). Encounter Diagnosis: Depression/Anxiety (300.4) , BMI 34.0-34.9, ADULT (V85.34), Fibromyalgia (729.1), Other specified intestinal malabsorption (Renamed from Other intestinal malabsorption), Asthma (493.11), Other vitamin B12 deficiency anemia (281.1), Fibrocystic Breast Disease (610.2), Interstitial lung disease (516.34), Degenerative Disc Disease (722.6), POLYARTHROPATHY, INFLAMMATORY NOS (714.9), Hypertriglycerides (272.1), Migraine (346.80), GERD (530.81), HX, PERSONAL, VENOUS THROMBOSIS/EMBOLISM (V12.51), AFTERCARE, LONG-TERM USE, ANTICOAGULANTS (V58.61), Allergic rhinitis (477.9), ANEMIA DUE TO DIETARY IRON DEFICIENCY (280.1), Osteoarthritis (715.96), DEFICIENCY, VITAMIN D NOS (268.9), Obesity,unspecified (278.00), Chronic pancreatitis (577.1), Cervical radiculopathy (723.4), Chronic pain syndrome (338.4), Vulvar irritation, Need for vaccination against Streptococcus pneumoniae [facility] Phone Encounter On: 29-Apr-2014 15:01 Encounter Diagnosis: Unspecified Diagnosis End: 29-Apr-2014 15:09 [facility] Office Visit On: 22-Apr-2014 13:30 Encounter Reason: Follow up for chronic medical issues - The patient feels well with minor complaints, has good energy level and is sleeping well. Patient has been compliant with instructions. Current medication use: no End: 22-Apr-2014 14:05 side effects, compliant with dosing regimen and considered effective by patient. Patient sleeps 9 hours per night. Impact of disease: emotional impact-mild. Nutrition: balanced diet and supplemental vit amins. The medical issues the patient is following up for include asthma, cardiac issues, depression, fibromyalgia, gastric reflux, high cholesterol, osteoarthritis and other (anemia, chronic pancreatit is, intertitial lung disease, obesity, FBD, DDD ).Encounter Diagnosis: Depression/Anxiety (300.4), Need for prophylactic vaccination and inoculation against influenza (V04.81), Degenerative Disc Disease (722.6), Interstitial lung disease (516.34), POLYARTHROPATHY, INFLAMMATORY NOS (714.9), Migraine (346.80), Hypertriglycerides (272.1), Other specified intestinal malabsorption (Renamed from Other intestinal malabsorption), Fibromyalgia (729.1), Asthma (493.11), Fibrocystic Breast Disease (610.2), Other vitamin B12 deficiency anemia (281.1), GERD (530.81), Obesity,unspecified (278.00), DEFICIENCY, VITAMIN D NOS (268.9), Chronic pancreatitis (577.1), ANEMIA DUE TO DIETARY IRON DEFICIENCY (280.1), Osteoarthritis (715.96), Chronic pain syndrome (338.4), Cervical radiculopathy (723.4), AFTERCARE, LONG-TERM USE, ANTICOAGULANTS (V58.61), HX, PERSONAL, VENOUS THROMBOSIS/EMBOLISM (V12.51), Allergic rhinitis (477.9), Hypoglycemia (251.2) [facility] Office Visit On: 25-Mar-2014 15:46 Encounter Reason: Follow up acute care visit - The patient worsening. Patient has been compliant with instructions. Current medication use: no side effects and compliant with dosing regimen. Patient sleeps 7 hours per ni End: 25-Mar-2014 16:11 ght. Impact of disease: emotional impact-mild. Nutrition: balanced diet and supplemental vitamins. The medical issues the patient is following up for include other (rash ).Encounter Diagnosis: Rash (782.1) [facility] Office Visit On: 20-Mar-2014 14:15 Encounter Reason: Skin Problems - The onset of the skin problems has been sudden and they have been occurring in a persistent pattern for days. The course has been increasing. The problem is characterized as a rash and i End: 20-Mar-2014 14:52 tching. Lesions are described as red. The spots were first seen on the upper extremity. There has been no progression. There has been associated itching and pain (burning ).Encounter Diagnosis: Rash (782.1), Itch of skin [facility] Office Visit On: 15-Jan-2014 13:26 Encounter Reason: Follow up for chronic medical issues - The patient feels well with minor complaints, has decreased energy level and is sleeping well. Patient has been compliant with instructions. Current medication use End: 15-Jan-2014 14:01 : no side effects, compliant with dosing regimen and considered effective by patient. Patient sleeps 8 hours per night. Impact of disease: emotional impact-mild. Nutrition: balanced diet and supplementa l vitamins. The medical issues the patient is following up for include asthma, cardiac issues, depression, fibromyalgia, gastric reflux, osteoarthritis and other (DDD, migraines, leukopenia, vitamin d d ef., B12 def., anemia, allergic rhinitis, chronic pain syndrome, chronic pancreatitis ).Encounter Diagnosis: Hypertriglycerides (272.1), Asthma (493.11), Interstitial lung disease (516.34), Migraine (346.80), Fatigue (780.79), Osteoarthritis (715.96), Encounter for central line care, Degenerative Disc Disease (722.6), Fibromyalgia (729.1), Other specified intestinal malabsorption (Renamed from Other intestinal malabsorption), WWV V73.21 TAHBSO (Renamed from WWV-TAHBSO), Fibrocystic Breast Disease (610.2), POLYARTHROPATHY, INFLAMMATORY NOS (714.9), GERD (530.81), ANEMIA DUE TO DIETARY IRON DEFICIENCY (280.1), Cervical radiculopathy (723.4), AFTERCARE, LONG-TERM USE, ANTICOAGULANTS (V58.61), Nausea, DEFICIENCY, VITAMIN D NOS (268.9), Depression/Anxiety (300.4), Chronic pain syndrome (338.4), Allergic rhinitis (477.9), HX, PERSONAL, VENOUS THROMBOSIS/EMBOLISM (V12.51), Other vitamin B12 deficiency anemia (281.1), Obesity,unspecified (278.00), Chronic pancreatitis (577.1), Skin Tag, Irritated (701.9) [facility] Office Visit On: 12-Dec-2013 12:57 Encounter Reason: Abdominal pain - The onset of the pain has been sudden and has been occurring in a persistent pattern for 2 days. The course has been decreasing. The pain is described as a moderate stabbing and dull ac End: 12-Dec-2013 13:50 he. The pain is described as being located in the epigastrium. The pain radiates to the back. The symptoms have no aggravating factors. The symptoms have no relieving factors. The symptoms have been ass ociated with bloating, dark urine ( concentrated ) and nausea, while the symptoms have not been associated with diarrhea, fever, heartburn or vomiting.Encounter Diagnosis: Epigastric pain (789.06), Nausea [facility] Lab Order On: 27-Sep-2013 15:27 Encounter Diagnosis: ANEMIA DUE TO DIETARY IRON DEFICIENCY (280.1) End: 27-Sep-2013 15:29 [facility] Office Visit On: 25-Sep-2013 14:59 Encounter Reason: Follow up for chronic medical issues - The patient feels well with minor complaints, has decreased energy level and is sleeping well. Patient has been compliant with instructions. Current medication use End: 25-Sep-2013 15:38 : no side effects, compliant with dosing regimen and considered effective by patient. Patient sleeps 8 hours per night. Impact of disease: emotional impact-mild. Nutrition: balanced diet and supplementa l vitamins. The medical issues the patient is following up for include asthma, cardiac issues, depression, fibromyalgia, gastric reflux, osteoarthritis and other (DDD, migraines, leukopenia, vitamin d d ef., B12 def., anemia, allergic rhinitis, chronic pain syndrome, chronic pancreatitis ).Encounter Diagnosis: HX, PERSONAL, VENOUS THROMBOSIS/EMBOLISM (V12.51), ANEMIA DUE TO DIETARY IRON DEFICIENCY (280.1), Allergic rhinitis (477.9), Chronic pain syndrome (338.4), Other vitamin B12 deficiency anemia (281.1), AFTERCARE, LONG-TERM USE, ANTICOAGULANTS (V58.61), Cervical radiculopathy (723.4), Chronic pancreatitis (577.1), Asthma (493.11), Obesity,unspecified (278.00), GERD (530.81) , POLYARTHROPATHY, INFLAMMATORY NOS (714.9), Fibrocystic Breast Disease (610.2), WWV V73.21 TAHBSO (Renamed from WWV-TAHBSO), Other specified intestinal malabsorption (Renamed from Other intestinal malabsorption), Fibromyalgia (729.1), Degenerative Disc Disease (722.6), BRONCHITIS, NOT SPECIFIED ACUTE OR CHRONIC (490.), Encounter for central line care, DEFICIENCY, VITAMIN D NOS (268.9), Osteoarthritis (715.96), Fatigue (780.79), Migraine (346.80), Interstitial lung disease (516.34), Hypertriglycerides (272.1), Depression/Anxiety (300.4) [facility] Office Visit On: 05-Sep-2013 13:19 Encounter Reason: Cough - The onset of the cough has been sudden. The amount of sputum produced is scanty. The cough occurs all the time. The symptoms have been associated with fever (100.3), hoarseness and wheezing. th End: 05-Sep-2013 15:20 e color of the sputum is yellowish.Encounter Diagnosis: Cough (786.2), Wheezing (786.07), BRONCHITIS, NOT SPECIFIED ACUTE OR CHRONIC (490.) [facility] Office Visit On: 26-Jul-2013 13:28 Encounter Diagnosis: ACUTE PHARYNGITIS (462.) End: 26-Jul-2013 13:53 [facility] Lab Order On: 19-Jul-2013 14:52 Encounter Diagnosis: ANEMIA DUE TO DIETARY IRON DEFICIENCY (280.1) End: 19-Jul-2013 14:54 [facility] Office Visit On: 28-Jun-2013 13:11 Encounter Reason: Follow up, Diagnostic Procedure Results - Diagnostic tests include CT scan and other (labs ). Date: (). Current symptoms include abdominal pain (intermittently ).Encounter Diagnosis: DEFICIENCY, VITAMIN D NOS (268.9), End: 28-Jun-2013 14:18 Other specified intestinal malabsorption (Renamed from Other intestinal malabsorption), ANEMIA DUE TO DIETARY IRON DEFICIENCY (280.1), Encounter for central line care, HX, PERSONAL, VENOUS THROMBOSIS/EMBOLISM (V12.51) [facility] Office Visit On: 04-Jun-2013 11:20 Encounter Diagnosis: Cervical radiculopathy (723.4), Cough (786.2), AFTERCARE, LONG- TERM USE, ANTICOAGULANTS (V58.61), Chronic pancreatitis (577.1), HX, PERSONAL, VENOUS THROMBOSIS/EMBOLISM (V12.51), Chronic pain syndrome (338.4), End: 04-Jun-2013 11:57 Allergic rhinitis (477.9), Hypoglycemia (251.2), ARTHRALGIAS 719.40, ACUTE EMBOLISM/THROMB DEEP VSL DISTL LWR EXT (453.42), Depression/Anxiety (300.4), Interstitial lung disease (516.34), SVC thrombosis, Hypertriglycerides (272.1), Degenerative Disc Disease (722.6), Leukopenia (288.0), Osteoarthritis (715.96), Migraine (346.80), Fatigue (780.79), ANEMIA DUE TO DIETARY IRON DEFICIENCY (280.1), Other specified intestinal malabsorption (579.8), Hyponatremia (276.1), Asthma (493.11), Fibromyalgia (729.1), WWV V73.21 TAHBSO (Renamed from WW-TAHBSO), Obesity,unspecified (278.00), GERD (530.81), DEFICIENCY, VITAMIN D NOS (268.9), POLYARTHROPATHY, INFLAMMATORY NOS (714.9), Cyst of kidney, acquired (593.2), Other vitamin B12 deficiency anemia (281.1), Fibrocystic Breast Disease (610.2), Abnormal blood chemistry (790.6), Epigastric pain (789.06) [facility] Office Visit On: 14-May-2013 13:55 Encounter Reason: Sore Throat - Symptoms include sore throat and chills, while symptoms do not include nasal congestion or postnasal drainage. The symptoms are symmetrical. Onset was day(s) ago. Symptoms are exacerbated End: 14-May-2013 14:19 by swallowing solids. Associated symptoms do not include headache, abdominal pain, nausea or vomiting.Encounter Diagnosis: Fibromyalgia (729.1), Thrush (112.0), Asthma (493.11) [facility] Office Visit On: 19-Jan-2013 12:13 Encounter Reason: Dizziness - Symptoms include dizziness (lightheaded, spinning). The dizziness is described as lightheadedness and a spinning sensation.Encounter Diagnosis: Fatigue (780.79), S/P knee replacement (V43.65), Hyponatremia (276.1), End: 19-Jan-2013 13:30 Anemia (285.9), Hypoxia (799.02) [facility] Office Visit On: 26-Dec-2012 11:29 Encounter Reason: Preoperative evaluation - The patient feels well with minor complaints (epigastric pain adn believes r/t pancreatitis) and has decreased energy level. Surgical procedures include: other (LEFT total knee End: 28-Dec-2012 6:[address] Lea ). Date of procedure: (January 01, 2013) . There have been no problems with general anesthesia or blood/blood products. Prosthetics include: dentures (upper and lower ) and eye glasses.Encounter Diagnosis: Pre-operative examination, unspecified (V72.84), Asthma (493.11), HX, PERSONAL, VENOUS THROMBOSIS/EMBOLISM (V12.51), Chronic pancreatitis (577.1), Hyponatremia (276.1) [facility] Office Visit On: 24-Aug-2012 13:00 Encounter Diagnosis: Asthma (493.11), Chronic pancreatitis (577.1), Pre-operative examination, unspecified (V72.84), Acute sinusitis, unspecified (461.9), HX, PERSONAL, VENOUS THROMBOSIS/EMBOLISM (V12.51), End: 24-Aug-2012 13:36 ANEMIA DUE TO DIETARY IRON DEFICIENCY (280.1), [facility] V73.21 TAHBSO (Renamed from [facility]) [facility] Office Visit On: 29-Jun-2012 12:07 Encounter Reason: Sinusitis/ - The duration of the symptoms are 4 days The course has been recurrent (was treated with levaquin 06-01-12 ). The sinusitis/ has no relieving factors. Associated features include The symptom End: 29-Jun-2012 12:49 s have been associated with cough, ear pain, nasal discharge/stuffy nose and sinus pain.Encounter Diagnosis: Cough (786.2) [facility] Office Visit On: 01-Jun-2012 11:37 Encounter Reason: Cough - The last clinic visit was 3 week(s) ago. No changes in management were made at the last visit. Symptoms include cough, wheezing, fever and runny nose. The cough is described as tight. Cough onse End: 01-Jun-2012 11:52 t was sudden. Onset of cough followed cold symptoms. The cough occurs constantly. Symptoms are described as mild and worsening.Encounter Diagnosis: Cough (786.2), BRONCHITIS, NOT SPECIFIED ACUTE OR CHRONIC (490.) [facility] Office Visit On: 09-May-2012 14:42 Encounter Reason: Preoperative evaluation - The patient feels well with minor complaints and has decreased energy level. Surgical procedures include: other (right total knee replacement per Dr. Lea ). Date of procedur End: 09-May-2012 15:14 e: (will be scheduled upon clearance ) . There have been no problems with general anesthesia or blood/blood products. Prosthetics include: dentures (upper and lower ) and eye glasses.Encounter Diagnosis: Pre-operative examination, unspecified (V72.84), Interstitial lung disease (516.34), HX, PERSONAL, VENOUS THROMBOSIS/EMBOLISM (V12.51), POLYARTHROPATHY, INFLAMMATORY NOS (714.9), Acute sinusitis, unspecified (461.9) [facility] Office Visit On: 28-Apr-2012 13:28 Encounter Reason: Injections - The medication the patient is here to receive is other (flu shot).Encounter Diagnosis: Need for prophylactic vaccination and inoculation against influenza (V04.81) End: 28-Apr-2012 18:59 [facility] Phone Encounter On: 07-Mar-2012 13:19 Encounter Diagnosis: Chronic pancreatitis (577.1) End: 07-Mar-2012 13:22 [facility] Office Visit On: 08-Feb-2012 9:26 Encounter Reason: Follow up for chronic medical issues - The patient feels well with minor complaints, has decreased energy level and is sleeping well. Patient has been compliant with instructions. Current medication use End: 08-Feb-2012 11:15 : no side effects, compliant with dosing regimen and considered effective by patient. Patient sleeps 8 hours per night. Impact of disease: emotional impact-mild. Nutrition: balanced diet and supplementa l vitamins. The medical issues the patient is following up for include asthma, cardiac issues, depression, fibromyalgia, gastric reflux, osteoarthritis and other (DDD, migraines, leukopenia, vitamin d d ef., B12 def., anemia, allergic rhinitis, chronic pain syndrome, chronic pancreatitis ).Encounter Diagnosis: Fibromyalgia (729.1), ACUTE EMBOLISM/THROMB DEEP VSL DISTL LWR EXT (453.42), Osteoarthritis (715.96), Degenerative Disc Disease (722.6), Hypertriglycerides (272.1), Chronic pancreatitis (577.1), Chronic pain syndrome (338.4), Allergic rhinitis (477.9), SVC thrombosis, Migraine (346.80), Obesity,unspecified (278.00), Depression/Anxiety (300.4), Asthma (493.11), Hyponatremia (276.1), GERD (530.81), DEFICIENCY, VITAMIN D NOS (268.9), Other vitamin B12 deficiency anemia (281.1), Hypoglycemia (251.2), Fibrocystic Breast Disease (610.2), POLYARTHROPATHY, INFLAMMATORY NOS (714.9), Leukopenia (288.0), Cyst of kidney, acquired (593.2), Other specified intestinal malabsorption (579.8), ANEMIA DUE TO DIETARY IRON DEFICIENCY (280.1), AFTERCARE, LONG-TERM USE, ANTICOAGULANTS (V58.61), ARTHRALGIAS 719.40, Cervical radiculopathy (723.4), Interstitial lung disease (Renamed from Interstitial lung changes), WWV V73.21 TAHBSO (Renamed from WWV-TAHBSO), Abnormal blood chemistry (790.6) [facility] Office Visit On: 24-Nov-2011 14:34 Encounter Reason: Injections - The medication the patient is here to receive is tetnus vaccine IM.Encounter Diagnosis: Unspecified Diagnosis End: 24-Nov-2011 14:50 [facility] Office Visit On: 01-Nov-2011 10:33 Encounter Reason: Follow up acute care visit - The patient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 Disease (722.6), Hyponatremia (276.1), Hypoglycemia (251.2), Leukopenia (288.0), GERD (530.81), Other vitamin B12 deficiency anemia (281.1), FEVER (780.6), Interstitial lung disease (Renamed from Interstitial lung changes), Cervical radiculopathy (723.4), Dehydration(276.51), BRONCHITIS, NOT SPECIFIED ACUTE OR CHRONIC (490.), Cough (786.2), Chronic pancreatitis (577.1), yeast infection, Cyst of kidney, acquired (593.2), Abnormal blood chemistry (790.6), SVC thrombosis, Acute pancreatitis (577.0), Neoplasm of uncertain behavior of other and unspecified respiratory organs (235.9), ARTHRALGIAS 719.40, Low back pain (724.2), ACUTE PHARYNGITIS (462.), Acute sinusitis, unspecified (461.9), Edema (782.3), Viral infection, unspecified (079.99), WWV-TAHBSO, Obesity,unspecified (278.00), Epigastric pain (789.06), Allergic rhinitis (477.9), OLIVAS(786.09) [facility] Office Visit On: 27-Mar-2008 10:51 Encounter Reason: Cough - The onset of the cough has been sudden (since tuesday). The cough is characterized as dry. The cough occurs all the time. The symptoms are aggravated by supine posture, but not by meals. The symp End: 27-Mar-2008 23:32 toms have been associated with fever ,headache ,hoarseness ,night sweats ,sore throat and wheezing, while the symptoms have not been associated with runny nose. Note for Cough: no sputum- temp was 100 .4- on tuesday-- doesnt think one since-- is more sob than was-- and inhaler not seeming to help and wheezing-- she has been on prednisone-- last on in december or january -- seeing several docs for this Dr Jacob rabago at [facility]-- -- feels similiar to what she had before - only idefferent was sore throat on sun Encounter Diagnosis: Wheezing (786.07), Abdominal Pain,Generalized (789.07), Bacterial pneumonia, unspecified (482.9), Other vitamin B12 deficiency anemia (281.1) [facility] Office Visit On: 14-Mar-2008 10:41 Encounter Reason: Follow up hospital - Reason for ER visit: note: (Interstitial lung/pulmonary fibrosis ). The patient feels well with minor complaints ,has decreased energy level and is sleeping well. Patient has been c End: 14-Mar-2008 11:21 ompliant with instructions. Current medication use: no side effects ,compliant with dosing regimen and considered effective by patient. Patient sleeps 7 hours per night. Impact of disease: emotional imp act-mild. Nutrition: balanced diet. Hospital procedures performed were bronchoscopy. The hospital results of the CT scan chest and other (Echo ) were Encounter Diagnosis: Asthma (493.11), Interstitial lung disease (Renamed from Interstitial lung changes), FEVER (780.6), Depression/Anxiety (300.4), chronic pain, Cervical radiculopathy (723.4) [facility] Office Visit On: 22-Feb-2008 11:20 Encounter Reason: Fever - The onset of the fever has been sudden and has been occurring in a persistent (really sharp pain when taking breath) pattern for 8 hours. The course has been increasing (pain, weakness). The pat End: 22-Feb-2008 12:19 ient has a temperature of up to 100 F. The symptoms have been associated with chest pain (upon deep inhalation) ,chills (this am, since fever broke no ) ,cough ,drug (medication) intake (just normal pre scribed ) ,dyspnea and fatigue, while the symptoms have not been associated with ear pain or foreign travel in last 6 months. Note for Fever: pt had epidural [id number] Diagnosis: Dehydration(276.51), Abdominal Pain,Generalized (789.07), FEVER (780.6) [facility] Office Visit On: 06-Feb-2008 12:01 Encounter Reason: Cough - The onset of the cough has been sudden (5 days). The cough is characterized as productive of blood-stained sputum. The amount of sputum produced is copious. The cough occurs all the time. The sy End: 06-Feb-2008 13:46 mptoms are aggravated by supine posture and particular position, but not by meals. The symptoms have been associated with fever ,hoarseness ,sore throat and wheezing, while the symptoms have not been as sociated with headache or runny nose. the color of the sputum is bloody (brown and castillo). Encounter Diagnosis: BRONCHITIS, NOT SPECIFIED ACUTE OR CHRONIC (490.), Wheezing (786.07), Cough (786.2), Asthma (493.11), Malabsorption syndrome [facility] Office Visit On: 01-Feb-2008 10:12 Encounter Reason: Follow up acute care visit - The patient feeling better since last seen and improving. Patient has been compliant with instructions. Current medication use: no side effects ,compliant with dosing regime End: 01-Feb-2008 10:36 n and considered effective by patient. Patient sleeps 7 hours per night. Impact of disease: emotional impact-moderate. Nutrition: balanced diet. The medical issues the patient is following up for include other (fever of unknown origin ). Encounter Diagnosis: FEVER (780.6), Interstitial lung changes [facility] Office Visit On: 21-Dec-2007 9:31 Encounter Diagnosis: Other vitamin B12 deficiency anemia (281.1) End: 21-Dec-2007 20:30 [facility] Office Visit On: 21-Dec-2007 8:35 Encounter Reason: Follow up, Laboratory Test Results - Date: (11-23-07 ). Current symptoms/reason for visit include/s Symptoms include cough (chest tightness ). There is a family history of cardiovascular disease. Past me End: 21-Dec-2007 9:25 dical history includes anemia ,asthma ,cardiovascular disease ,congenital/chromosomal defects ,coronary artery disease ,diabetes mellitus ,elevated cholesterol ,elevated triglycerides ,emotional problem s ,gastroesophageal reflux disease ,hypertension and kidney disease. Encounter Diagnosis: FEVER (780.6), Interstitial lung changes, Chronic pancreatitis (577.1), yeast infection [facility] Office Visit On: 06-Nov-2007 11:24 Encounter Reason: Follow up for chronic medical issues - The patient feels well with minor complaints ,has decreased energy level and is sleeping well. Patient has been compliant with instructions. Current medication use End: 06-Nov-2007 12:03 : no side effects ,compliant with dosing regimen and considered effective by patient. Patient sleeps 7 hours per night. Impact of disease: emotional impact-moderate. Nutrition: balanced diet and supplem ental vitamins. The medical issues the patient is following up for include blood sugar issues ,cardiac issues ,depression ,fibromyalgia ,high blood pressure ,high cholesterol ,osteoarthritis and other (obesity, DDD, B12 def ). Encounter Diagnosis: Hypoglycemia (251.2), ASTHMA, UNSPECIFIED, WITH ACUTE EXACERBATION (493.92), Malabsorption syndrome, Migraine (346.80), Depression/Anxiety (300.4), Leukopenia (288.0), Osteoarthritis (715.96), Degenerative Disc Disease (722.6), Hyponatremia (276.1) , GERD (530.81), Asthma (493.11), Cervical radiculopathy (723.4), Cyst of kidney, acquired (593.2), Fibromyalgia (729.1), Acute pancreatitis (577.0), Abnormal blood chemistry (790.6), SVC thrombosis, Neoplasm of uncertain behavior of other and unspecified respiratory organs (235.9), FEVER (780.6), Low back pain (724.2), ARTHRALGIAS 719.40 [facility] Office Visit On: 23-Oct-2007 15:27 [facility] End: 23-Oct-2007 15:33 Office Visit On: 03-Oct-2007 15:25 Encounter Reason: Sinusitis/ - The duration of the symptoms are 4 days The course has been gradually worsening. The sinusitis/ are relieved by OTC cold medications (mucinex and sudifed) and Tylenol. Associated features i End: 03-Oct-2007 16:15 nclude The symptoms have been associated with cough (productive of hernandez mucous) ,nasal discharge/stuffy nose ,red eyes ,sinus pain and swollen lymph glands, while the symptoms have not been associated wi th ear pain ,purulent discharge from ear ,purulent nasal discharge ,sore throat or teeth pain. No previous evaluations were reported. none reported. Encounter Diagnosis: BRONCHITIS, NOT SPECIFIED ACUTE OR CHRONIC (490.), ASTHMA, UNSPECIFIED, WITH ACUTE EXACERBATION (493.92), Other vitamin B12 deficiency anemia (281.1) [facility] Office Visit On: 16-Aug-2007 13:58 Encounter Reason: Sinusitis/ - The duration of the symptoms are 5 days The course has been worsening. The sinusitis/ has no relieving factors. Associated features include The symptoms have been associated with cough ,ear End: 16-Aug-2007 14:58 pain ,nasal discharge/stuffy nose ,sinus pain and sore throat (scratchy), while the symptoms have not been associated with teeth pain. No previous evaluations were reported. Encounter Diagnosis: ACUTE PHARYNGITIS (462.), ASTHMA, UNSPECIFIED, WITH ACUTE EXACERBATION (493.92), Acute sinusitis, unspecified (461.9) [facility] Office Visit On: 01-Aug-2007 13:10 Encounter Reason: Follow up for chronic medical issues - The patient feels well with minor complaints. Patient has been compliant with instructions. Current medication use: experiencing side effects (fatigue). Patient sl End: 03-Aug-2007 7:50 eeps 6 hours per night. Nutrition: balanced diet. The medical issues the patient is following up for include All identified problems below ,asthma ,depression ,fibromyalgia ,gastric reflux and osteoarth ritis. Note for Follow up for chronic medical issues: fever intermittent. seeing Dr. pritchett, rheum work up negative. ct scan pancreatits good. stop then fever last week. no atb. having epidurals. did i ntestinal flu and then uri before fever. knee MRI doneEncounter Diagnosis: Depression/Anxiety (300.4), Cervical radiculopathy (723.4), sub-clavian vein stenosis, Asthma (493.11), GERD (530.81), Knee pain (719.46), Neoplasm of uncertain behavior of other and unspecified respiratory organs (235.9), Migraine (346.80), SVC thrombosis, Hysterectomy; Abdominal, Abnormal blood chemistry (790.6), Osteoarthritis (715.96), Hyponatremia (276.1), Epigastric pain (789.06) , Obesity,unspecified (278.00), Other vitamin B12 deficiency anemia (281.1), Hypoglycemia (251.2), Edema (782.3), FEVER (780.6), Cyst of kidney, acquired (593.2), OLIVAS(786.09), Need for prophylactic vaccination and inoculation against influenza (V04.81), Allergic rhinitis (477.9), Viral infection, unspecified (079.99), Chronic pancreatitis (577.1), Fibromyalgia (729.1), WWV-TAHBSO, Degenerative Disc Disease (722.6), Leukopenia (288.0), Anemia (285.9), Acute pancreatitis (577.0) [facility] Office Visit On: 18-Apr-2007 13:13 Encounter Reason: Follow up for chronic medical issues - The patient feels well with minor complaints ,has decreased energy level and is sleeping well. Patient has been compliant with instructions. Current medication use End: 18-Apr-2007 13:41 : no side effects and compliant with dosing regimen. Patient sleeps 7 hours per night. Impact of disease: no overall impact. Nutrition: balanced diet and supplemental vitamins. The medical issues the pa juan is following up for include All identified problems below. weight : (196). Note for Follow up for chronic medical issues: temp 99.5 last tuesday otherwise good. asthma kicked up--use advair bid when need, works, saw Dr. pritchett. Encounter Diagnosis: Hysterectomy; Abdominal, FEVER (780.6), Edema (782.3), Cervical radiculopathy (723.4), Anemia (285.9), sub-clavian vein stenosis, Migraine (346.80), Depression/Anxiety (300.4), Leukopenia (288.0), Osteoarthritis (715.96), Degenerative Disc Disease (722.6), Hyponatremia (276.1), Hypoglycemia (251.2), GERD (530.81), pancreatitis, chronic pain, Malabsorption syndrome, Other vitamin B12 deficiency anemia (281.1), Asthma (493.11), Rash (782.1), Obesity,unspecified (278.00), Epigastric pain (789.06), SVC thrombosis, WWV-TAHBSO, Fibromyalgia (729.1), Chronic pancreatitis (577.1), Viral infection, unspecified (079.99), Allergic rhinitis (477.9), Need for prophylactic vaccination and inoculation against influenza (V04.81), OLIVAS(786.09), Cyst of kidney, acquired (593.2), Acute pancreatitis (577.0), Abnormal blood chemistry (790.6) [facility] Nurse Visit On: 07-Mar-2007 12:18 [facility] End: 07-Mar-2007 12:19 Office Visit On: 07-Mar-2007 11:39 Encounter Reason: Follow up acute care visit - The patient feeling better since last seen and improving. Patient has been compliant with instructions. Current medication use: no side effects ,compliant with dosing regime End: 07-Mar-2007 12:11 n and considered effective by patient. Patient sleeps 7 hours per night. Impact of disease: emotional impact-mild. Nutrition: balanced diet. The medical issues the patient is following up for include ot her (edema lower extremities ). Note for Follow up acute care visit: swelling better with aldactone, reviewed [employer] consultant's letter use compression, work up from signs negativeEncounter Diagnosis: FEVER (780.6), Cervical radiculopathy (723.4), Edema (782.3), Other vitamin B12 deficiency anemia (281.1) [facility] Office Visit On: 20-Feb-2007 16:43 Encounter Reason: Edema - The onset of the edema has been acute and has been occurring in a persistent pattern for 3 days. The course has been constant. The edema is described as being located in both lower extremities. End: 20-Feb-2007 17:20 Note for Edema: has rash on bilateral lower legs, went camping over the weekend , bite by flies, camp in [facility], no fever abd pain still hit abd with bike handleEncounter Diagnosis: Edema (782.3), Rash (782.1) [facility] Office Visit On: 17-Jan-2007 16:02 Encounter Reason: Fever - The onset of the fever has been gradual and has been occurring in an intermittent pattern for 2 weeks (on and off ). The course has been recurrent. The patient has a temperature of up to 102 F. End: 17-Jan-2007 16:49 The symptoms have been associated with fatigue ,malaise and pain in joints. Note for Fever: no sinusitis signs and symptoms , some increase wheeze and asthma using inhalers, advair forget take regular ly, some pain in left CVA, epig pain some increase, more streorrhea, foul smelling stool 9 times a day, no recent atb, had injections in cervical epidurals, last use port 3 weeks agoEncounter Diagnosis: FEVER (780.6) [facility] Office Visit On: 10-Jan-2007 12:03 Encounter Reason: Follow up for chronic medical issues - The patient feels well with minor complaints ,has decreased energy level and is sleeping well. Patient has been compliant with instructions. Current medication use End: 10-Jan-2007 12:38 : no side effects ,compliant with dosing regimen and considered effective by patient. Patient sleeps 7 hours per night. Impact of disease: emotional impact-mild. Nutrition: balanced diet. The medical is sues the patient is following up for include asthma ,cardiac issues ,depression ,gastric reflux ,high blood pressure ,high cholesterol ,osteoarthritis ,osteoporosis/osteopenia and other (B12 def ). Note for Follow up for chronic medical issues: keep gaining--snacking, craving, not hungry, some out of boredomEncounter Diagnosis: Other vitamin B12 deficiency anemia (281.1), Depression/Anxiety (300.4), Cervical radiculopathy (723.4), pancreatitis, Obesity,unspecified (278.00), Epigastric pain (789.06), SVC thrombosis, Fibromyalgia (729.1), [id number] Office Visit On: 21-Nov-2006 16:02 Encounter Diagnosis: Unspecified Diagnosis End: 21-Nov-2006 16:42 [facility] Office Visit On: 21-Nov-2006 15:20 Encounter Reason: Fever - The onset of the fever has been sudden and has been occurring in an intermittent pattern for 1 days. The course has been recurrent. The patient has a temperature of up to 102 F (102.7). The symp End: 21-Nov-2006 16:01 toms have been associated with abdominal pain (worse chronic pancreattis) ,chest pain (ache feels skelatal) ,chills ,cough (minor) ,fatigue ,headache (occipital) ,myalgia ,pain in joints (knees arthriti s) ,rigors and sore throat (minor-), while the symptoms have not been associated with altered sensorium ,bone pain ,conjunctival congestion ,convulsions ,dark urine ,diarrhea ,discharge from ear ,drug ( medication) intake ,drug abuse ,dyspnea ,dysuria ,ear pain ,foreign travel in last 6 months ,frequency ,lymphadenopathy ,hematuria ,hemoptysis ,history of heart disease ,leg pain ,loss of appetite ,pankaj ise ,nausea ,neck stiffness ,night sweats ,non-purulent sputum ,runny nose ,skin rash ,sweating ,swelling in calves ,swelling in joints ,tick bite ,urethral discharge or weight loss. Note for Fever: a hellen in chest some asthma cough no congestion, has port--not tender, alot bloating with gas, grandson vomiting last week--but not GI signs and symptoms , has headache--bandlike--better with fever gone, 10 d ago marcos knee injection but knee fine Encounter Diagnosis: FEVER (780.6), Chronic pancreatitis (577.1) [facility] Office Visit On: 11-Nov-2006 9:30 Encounter Reason: Sinusitis/ - The duration of the symptoms are 3 days The course has been constant. The sinusitis/ has no relieving factors. Associated features include The symptoms have been associated with cough ,ear End: 11-Nov-2006 10:05 pain (feel full) ,sinus pain and sore throat. Encounter Diagnosis: Viral infection, unspecified (079.99), Chronic pancreatitis (577.1) [facility] Office Visit On: 10-Oct-2006 11:07 Encounter Diagnosis: Other vitamin B12 deficiency anemia (281.1) End: 27-Oct-2006 13:14 [facility] Office Visit On: 10-Oct-2006 10:23 Encounter Reason: Sore throat - The onset of the sore throat has been acute and has been occurring in an intermittent pattern for 2 days. The course has been worsening. The symptoms have been associated with cough (dry) End: 10-Oct-2006 10:57 and fever (102F), while the symptoms have not been associated with non-purulent sputum ,post-nasal drip or purulent sputum. Note for Sore throat: little wheeze when cough, ache all over, headache, had flu shot, 2 weeks ago had levaquin and steroid for asthma, [ADDITIONAL REASON] Follow up for chronic medical issues - The patient feels well with minor complai nts ,has decreased energy level and is sleeping well. Patient has been compliant with instructions. Current medication use: no side effects ,compliant with dosing regimen and considered effective by shamika farley. Patient sleeps 5 hours per night. Impact of disease: emotional impact-moderate. Nutrition: balanced diet and supplemental vitamins. The medical issues the patient is following up for include asthm a ,cardiac issues ,depression ,fibromyalgia ,gastric reflux ,high blood pressure ,osteoarthritis and other (DDD, Pancreatitis ). Encounter Diagnosis: Asthma (493.11), GERD (530.81), Osteoarthritis (715.96), Hysterectomy; Abdominal, Anemia (285.9) , BRONCHITIS, NOT SPECIFIED ACUTE OR CHRONIC (490.), Malabsorption syndrome, chronic pain, Depression/Anxiety (300.4), Migraine (346.80), sub-clavian vein stenosis, Leukopenia (288.0), Degenerative Disc Disease (722.6), Hyponatremia (276.1), Hypoglycemia (251.2), Viral infection, unspecified (079.99), Allergic rhinitis (477.9), Pre-operative examination, unspecified (V72.84), Other vitamin B12 deficiency anemia (281.1), Chronic pancreatitis (577.1), Need for prophylactic vaccination and inoculation against influenza (V04.81), Epigastric pain (789.06), Edema (782.3), OLIVAS(786.09), Cyst of kidney, acquired (593.2), Acute pancreatitis (577.0), Cervical radiculopathy (723.4), Obesity,unspecified (278.00), Abnormal blood chemistry (790.6), FEVER (780.6) [facility] Historical Summary On: 03-Oct-2006 13:36 [facility] End: 03-Oct-2006 13:39 Office Visit On: 16-Sep-2006 15:19 Encounter Reason: Wheezing - The onset of the wheezing has been acute and has been occurring in a persistent pattern for 2 weeks (off and on started getting worse on Tuesday ). The course has been increasing. The symptom End: 16-Sep-2006 16:02 s have been associated with cough ,dyspnea and productive sputum (greenish ). Encounter Diagnosis: BRONCHITIS, NOT SPECIFIED ACUTE OR CHRONIC (490.) [facility] Office Visit On: 04-Aug-2006 15:21 Encounter Reason: Asthma - The onset of the asthma has been gradual and has been occurring in all year round pattern for 50 years. The course has been gradually worsening. being outside. The asthma has no relieving facto End: 04-Aug-2006 15:45 rs. Associated features include itchy eyes (velma. left ) ,clear nasal drainage and short of breath (on exertion ). Medications have included rescue inhaler less than twice a week. Note for Asthma: bett er today, start after knee sx, no sputum, postnasal drip, wheezing--advair ran out 1 week, have albuterol few times helpsEncounter Diagnosis: Asthma (493.11), Viral infection, unspecified (079.99), Allergic rhinitis (477.9) [facility] Office Visit On: 14-Jul-2006 16:21 Encounter Reason: Sinusitis/ - The duration of the symptoms are 3 days The course has been gradually worsening. The sinusitis/ has no relieving factors. Associated features include The symptoms have been associated with End: 14-Jul-2006 20:31 nasal discharge/stuffy nose ,sinus pain and sore throat (from drg. ). No previous evaluations were reported. Note for Sinusitis/: Arbonne and Sudafed and Tylenol. Pt has surgery scheduled for next week.Encounter Diagnosis: Viral infection, unspecified (079.99) [facility] Office Visit On: 08-Jul-2006 10:25 Encounter Reason: Physical female exam - Last seen less than 1 month ago. General health: feels well with minor complaints. The patient's appetite is normal. Nutrition: normal/adequate. Exercises 0 days per week. Sleeps End: 08-Jul-2006 16:47 on average 7 hours per night. Normal bowel and bladder habits. Safety measures include appropriate use of safety belts. Current emotional problems include anxiety ,depression and sleep disturbances. scr eening, colonoscopy () ,screening, mammography (07-09) and screening, Pap smear (2003 hysterectomy 1991 complete with bladder suspension ). Note for Physical female exam: preop--surgery 1 - knee goyo--synvisc, injection not help Encounter Diagnosis: Other vitamin B12 deficiency anemia (281.1), Hyponatremia (276.1), Anemia (285.9), Asthma (493.11), Migraine (346.80), Degenerative Disc Disease (722.6), Chronic pancreatitis (577.1), GERD (530.81), Depression/Anxiety (300.4) , Pre-operative examination, unspecified (V72.84), chronic pain [facility] Nurse Visit On: 31-May-2006 14:26 Encounter Diagnosis: Other vitamin B12 deficiency anemia (281.1) End: 31-May-2006 14:29 [facility] Historical Summary On: 17-May-2006 12:06 Encounter Diagnosis: Unspecified Diagnosis End: 17-May-2006 12:15 [facility] Office Visit On: 06-May-2006 13:04 Encounter Diagnosis: Need for prophylactic vaccination and inoculation against influenza (V04.81) End: 06-May-2006 13:07 [facility] Office Visit On: 19-Apr-2006 14:33 Encounter Reason: Follow up for chronic medical issues - The patient feels well with minor complaints ,has decreased energy level and is sleeping well. Patient has been compliant with instructions. Current medication use End: 19-Apr-2006 15:19 : no side effects and compliant with dosing regimen. Patient sleeps 5 hours per night. The medical issues the patient is following up for include other (pancreatitis). Note for Follow up for chronic me dical issues: saw jacqui scretin test and mrcp normal, ? last episode pancreatitis, no HCTZ and lasix. agree rouxeny help--? pouch or obstruction, test recommendedEncounter Diagnosis: Epigastric pain (789.06), Hyponatremia (276.1), Cyst of kidney, acquired (593.2), Edema (782.3), OLIVAS(786.09) [facility] Office Visit On: 30-Mar-2006 14:31 [facility] End: 30-Mar-2006 15:33 Office Visit On: 28-Mar-2006 13:52 Encounter Reason: Follow up hospital - Reason for ER visit: note: (pancreatitis). The patient feels well with minor complaints ,has decreased energy level ,is sleeping poorly and rapidly worsening (out of painkillers, gross End: 28-Mar-2006 14:26 s been using vicoden and ultram). Patient has been compliant with instructions. Current medication use: considered effective by patient. Patient sleeps 5 (nocturia, 3x nightly) hours per night. The hosp ital results of the other (ultrasound) were Note for Follow up hospital: see pain dr tomorrow, stable still pain, do cerv. injectionEncounter Diagnosis: Cyst of kidney, acquired (593.2), Chronic pancreatitis (577.1), Acute pancreatitis (577.0), Cervical radiculopathy (723.4), Obesity,unspecified (278.00), Abnormal blood chemistry (790.6) [facility] Payers [facility] [place] Donovan COBIAN; junie guarantor
--- OUTSIDE RECORDS SUMMARY | 2018-08-02 05:53 | XMS RPT_ITS | Continuity of Care Document ---
:1955 Author Organization [facility] Address [address] [place] [address] Phone Care Team Providers Name Role Phone Dima DURAN, Sarah Rebollar Unavailable Antonino Lucas MD Unavailable Princess DURAN, Brandan Buchanan Unavailable Senthil Romero Unavailable Jeremy DURAN, Dr. George Walker Unavailable Kunal Lea DO [...] cervical.doing every 6 months. george leaving to [place]. reconmmend Dr. romero and i talk to [...] qd Active Comments:plus 1000IU Vitamin D3 Creon 09160 UNIT Oral Capsule Delayed Release Particles 2 [...] MD, Dana M Start : 30-Nov-2016 Active [place] 5-325 MG Oral Tablet 1 (one) Tablet [...] 0 days Quantity: 270 {Tablet} Refills: 3 Ordered:14-Apr-2018 Sarah Pizano MD, MD, Dana M Start : 14-Apr-2018 Active Vitamin D (Ergocalciferol) 24631 UNIT Oral Capsule 1 (one) capsule twice [...] MD, Dana M Start : 06-Feb-2018 Active Comments:[id number] called to [facility] ADVAIR DISKUS, 100-50MCG/DOSE [...] End : 24-Aug-2012 Inactive CALCIUM 500/VITAMIN D, 717-137DX-ZARC (Oral Tablet) 1 (one) Tablet daily for [...] : 09-Mar-2016 End : 04-Jun-2016 Inactive Drisdol 50649 UNIT Oral Capsule 1 Capsule two times [...] : 21-Dec-2007 End : 14-Mar-2008 Inactive Nystatin 182852 UNIT/GM External Powder 1 Powder bid for [...] days Quantity: 1 {Package} Refills: 0 Ordered:08-Jul-2015 Kacey Rodriges LPN Start : 24-Jun-2015 End : [...] cervical.doing every 6 months. george leaving to [place]. reconmmend Dr. romero and i talk to [...] Procedures Procedure Dates Details [place] (89622) Date: 01-Oct-2016 Cancelled Cholecystectomy Completed GASTRIC BYPASS, OPEN (69721) Completed Comments: 1997, Dr. lindsay did for recurrent pancreatitis, this is what helped her. Hysterectomy; Abdominal Completed JEJUNOSTOMY (11862) Completed Comments: 1995 closed 1997 when had gastric bypass, because of pancreatitis and was tube feed for 2 years Date Value Details 21-Mar-2018 Dexa Bone Density Study Result: Comments: See Note; NOTES: [facility] Imaging Services [address] [place] [address] Dexa Bone Density Study MR#: [id number] Acct: [id number] Name: JOSE J COBIAN Rep #: [id number] : 1955 F 63 From: Bartolome Patel MD PCP: Sarah Pizano MD Status: REG CLI Study: Dexa Bone Density Study Date of Exam: 03/21/18 Exam# [id number] Ordering Dr: Sarah Pizano MD STUDY: D [...] -1 through -1.5 Moderate -1.6 through -2.0 Carleen re -2.1 through -2.4 The Z-score is the number of standard deviations above or below age-matched controls. A Z-score of less than -1.5 would be considered abnormal. References: 1. NIH Osteoporosis and Related Bone Diseases http://www.osteo.org 2. International Society for Clinical Densitometry http://www.iscd.org 3. National Osteoporosis Foundation http://www.nof.org Electronically Signed: Bartolome Patel MD at 15:07 EDT Tel [phone], Service support , CC: Sarah Pizano MD Box Sealing Machine Operator: Signed 21-Mar-2018 SCREENING MAMM (CAD), BILAT Result: Comments: See Note; NOTES: [facility] Imaging Services [address] [place] [address] SCREENING MAMM (CAD), BILAT MR#: [id number] Acct: [id number] Name: JOSE J COBIAN Rep #: [id number] : 1955 F 63 From: Bartolome Patel MD PCP: Sarah Pizano MD Status: REG CLI Study: SCREENING MAMM (CAD), BILAT Date of Exam: 03/21/18 Exam# [id number] Ordering Dr: Sarah Pizano MD MAMMOGRAPHY - [...] biopsy of a clinically suspicious abno rmality. [id number] Electronically Signed: Bartolome Patel MD at 13:21 EDT Tel [phone], Service support , CC: Sarah Pizano MD Box Sealing Machine Operator: Signed 07-Nov-2017 Operative Report Result: Comments: See Note; NOTES: [facility] Medical Records Department [address] [place] [address] Operative Report 11/07/17 1027 MR#: [id number] Acct: [id number] Name: JOSE J COBIAN Rep #: [id number] : 1955 62 From: Bubba Romero MD PCP: Sarah Piznao MD Status: REG [facility] Y Location: [place] [address] Problem List (1) Disc disease, degenerative, lumbar [...] 4 Views Result: Comments: See Note; NOTES: [facility] Imaging Services [address] [place] [address] L/S Spine Min 4 Views MR#: [id number] Acct: [id number] Name: JOSE J COBIAN Rep #: [id number] : 1955 F 62 From: Bartolome Patel MD PCP: Sarah Pizano MD Status: [facility] Study: L/S Spine Min 4 Views Date of Exam: 11/07/17 Exam# [id number] Ordering Dr: Bubba Romero MD PROCEDURE : [...] Bartolome Patel MD at 11:01 EDT Tel [phone], Service support , CC: Sarah Pizano MD; Bubba Romero Box Sealing Machine Operator: Signed 04-Oct-2017 Cardiology Visit Report Result: Comments: See Note; NOTES: [facility] [address] [place] [address]. 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 Required: No Accompanied by: Is patient in [...] mg PO DAILY@0800 10/20/15 [History Confirmed 10/03/17] [place] codone Bitart/Apap 5-325 [Stockton 5/325] 1 tab PO Q4H PRN PRN [...] infarction beginning age 61's, has had several MD's CAD (co ronary artery disease) history of [...] Operative Report Result: Comments: See Note; NOTES: [facility] Medical Records Department [address] [place] [address] Operative Report 09/05/17 0944 MR#: [id number] Acct: [id number] Name: JOSE J COBIAN Rep #: [id number] : 1955 62 From: Bubba Romero MD PCP: Sarah Pizano MD Status: [facility] Y Location: [place] [address] Problem List (1) Lumbosacral spondylosis Status: Chronic [...] 4 Views Result: Comments: See Note; NOTES: [facility] Imaging Services [address] [place] [address] L/S Spine Min 4 Views MR#: [id number] Acct: [id number] Name: JOSE J COBIAN Rep #: [id number] : 1955 F 62 From: Bartolome Patel MD PCP: Sarah Pizano MD Status: [facility] Study: L/S Spine Min 4 Views Date of Exam: 09/05/17 Exam# [id number] Ordering Dr: Bubba Romero MD PROCEDURE : [...] Bartolome Patel MD at 9:02 EST Tel [phone], Service support , CC: Sarah Pizano MD; Bubba Romero Box Sealing Machine Operator: Signed 08-Aug-2017 Operative Report Result: Comments: See Note; NOTES: [facility] Medical Records Department [address] [place] [address] Operative Report 08/08/17 1408 MR#: [id number] Acct: [id number] Name: JOSE J COBIAN Rep #: [id number] : 1955 62 From: Bubba Romero MD PCP: Sarah Pizano MD Status: DEP [facility] Y Location: [facility] Problem List (1) Lumbosacral radiculopathy Status: Chronic [...] 3 Views Result: Comments: See Note; NOTES: [facility] Imaging Services [address] [place] [address] Lumbar Spine 2 or 3 Views MR#: [id number] Acct: [id number] Name: JOSE J COBIAN Rep #: [id number] : 1955 F 62 From: Bartolome Patel MD PCP: Sarah Pizano MD Status: [facility] Study: Lumbar Spine 2 or 3 Views Date of Exam: 08/08/17 Exam# [id number] Ordering Dr: Bubba Romero MD P ROCEDURE: [...] Bartolome Patel MD at 11:32 EST Tel [phone], Service support , CC: Sarah Pizano MD; Bubba Romero Box Sealing Machine Operator: Signed 09-May-2017 Operative Report Result: Comments: See Note; NOTES: [facility] Medical Records Department [address] [place] [address] Operative Report 05/09/17 1348 MR#: [id number] Acct: [id number] Name: JOSE J COBIAN Rep #: [id number] : 1955 62 From: Bubba Romero MD PCP: Sarah Pizano MD Status: REG [facility] Y Location: [place] [address] Report of Operation Date of Procedure: 05/09/17 [...] Spine Inj Result: Comments: See Note; NOTES: [facility] Imaging Services [address] [place] [address] Fluor Guidance for Spine Inj MR#: [id number] Acct: [id number] Name: JOSE J COBIAN Rep #: [id number] : 1955 F 62 From: Bartolome Patel MD PCP: Sarah Pizano MD Status: [facility] Study: Fluor Guidance for Spine Inj Date of Exam: 05/09/17 Exam# [id number] Ordering Dr: Bubba Romero MD PROCEDURE: Caudal [...] Bartolome Patel MD at 14:03 EST Tel [phone], Service support , CC: Sarah leigh MD; Bubba Romero Box Sealing Machine Operator: Signed 29-Apr-2017 L/S Spine Min 4 Views Result: Comments: See Note; NOTES: [facility] Imaging Services [address] [place] [address] L/S Spine Min 4 Views MR#: [id number] Acct: [id number] Name: JOSE J COBIAN Rep #: [id number] : 1955 F 62 From: Feliberto Sim MD PCP: Sarah Pizano MD Status: REG CLI Study: L/S Spine Min 4 Views Date of Exam: 04/29/17 Exam# [id number] Ordering Dr: Lizeth Sanches STUDY: X-RAY - [...] , CC: Lizeth Sanches; Sarah Pizano MD Box Sealing Machine Operator: Signed 21-Mar-2017 Operative Report Result: Comments: See Note; NOTES: [facility] Medical Records Department [address] [place] [address] Operative Report 03/21/17 0841 MR#: [id number] Acct: [id number] Name: JOSE J COBIAN Rep #: [id number] : 1955 62 From: Bubba Romero MD PCP: Sarah Pizano MD Status: [facility] Y Location: [facility] Problem List (1) Cervical spine degeneration Status: [...] 5 Views Result: Comments: See Note; NOTES: [facility] Imaging Services [address] [place] [address] Cerv Spine 4 or 5 Views MR#: [id number] Acct: [id number] Name: JOSE J COBIAN Rep #: [id number] : 1955 F 62 From: Daniel Manzano DO PCP: Sarah Pizano MD Status: [facility] Study: Cerv Spine 4 or 5 Views Date of Exam: 03/21/17 Exam# [id number] Ordering Dr: Bubba Romero MD STUDY: X-RAY - CERVICAL SPINE REASON FOR EXAM: Female, 62 years old. Cervical block TECHNIQUE: 4 view(s) of the cervical spine were obtained. COMPARISON: None FINDINGS: Face t block was performed with 4 spot fluoroscopy images obtained. Total fluoroscopy time 14.7 seconds. Please see performing physician's report for further details ORD ER #: [id number] RAD/Cerv Spine 4 or 5 Views IMPRESSION: As above Electronically Signed: Daniel Manzano DO at 16:12 EDT Tel , Service support , CC: Sarah Pizano MD; Bubba Romero Box Sealing Machine Operator: Signed 17-Jan-2017 Operative Report Result: Comments: See Note; NOTES: [facility] Medical Records Department [address] [place] [address] Operative Report 01/17/17 1246 MR#: [id number] Acct: [id number] Name: JOSE J COBIAN Rep #: [id number] : 1955 61 From: Bubba Romero MD PCP: Sarah Pizano MD Status: DEP [facility] Y Location: [facility] Problem List (1) Cervical spine degeneration Status: [...] 5 Views Result: Comments: See Note; NOTES: [facility] Imaging Services [address] [place] [address] Verdana 4d Cerv Spine 4 or 5 Views MR#: [id number] Acct: [id number] Name: JOSE J COBIAN #: [id number] : 1955 F 61 From: Tonia Galvan MD PCP: Sarah Pizano MD Status: [facility] Study: Cerv Spine 4 or 5 Views Date of Exam: 01/17/17 Exam# [id number] Ordering Dr: Bubba Romero MD STUDY: X-RAY [...] Tonia Galvan MD at 16:36 EDT Tel [phone], Service support , CC: Sarah Pizano MD; Bubba Romero Box Sealing Machine Operator: Signed 09-Oct-2016 Abdomen/Pelvis WITH Contrast Result: Comments: See Note; NOTES: [facility] Imaging Services [address] [place] [id number] [place] [address] 4d Abdomen/Pelvis WITH Contrast MR#: [id number] Acct: [id number] Name: VIRAJ COBIAN Rep #: [id number] : 1955 F 61 From: Enrike Peres PCP: Sarah Pizano MD Status: REG CLI Study: Abdomen/Pelvis WITH Contrast Date of Exam: 10/09/16 Exam# [id number] Ordering Dr: Sarah Pizano MD STUDY: CT [...] at 9:47 EDT Tel , Service support [phone], CC: Sarah Pizano MD Box Sealing Machine Operator: Signed 23-Aug-2016 Operative Report Result: Comments: See Note; NOTES: [facility] Medical Records Department [address] [place] [address] Operative Report MR#: [id number] Acct: [id number] Name: JOSE J COBIAN Rep #: [id number] : 1955 61 From: Bubba Romero MD PCP: Sarah Pizano MD Status: DEP [facility] DATE OF SERVICE: 08/09/2016 DATE OF PROCEDURE: [...] indicated. Bubba Romero MD T: NTS JOB: [id number] 08/23/16 1357 <Electronica lly signed by Bubba Romero MD> Date Bubba Romero MD Cosigner Signature (If Indicated): Date ____ CC: Sarah Pizano MD; Bubba Romero Date Dictated: 08/09/16 1311 Date Transcribed: 08/09/16 131 Box Sealing Machine Operator: Signed 09-Aug-2016 Thoracic Spine 3 Views Result: Comments: See Note; NOTES: [facility] Imaging Services [address] [place] [address] Verdana 4d Thoracic Spine 3 Views MR#: [id number] Acct: [id number] Name: JOSE J COBIAN Chantale p #: [id number] : 1955 F 61 From: Azalia Fernandes MD PCP: Sarah Pizano MD Status: [facility] Study: Thoracic Spine 3 Views Date of Exam: 08/09/16 Exam# [id number] Ordering Dr: Bubba Romero MD [facility] DY: X-RAY - THORACIC SPINE [...] at 1 2:18 EST , Service support [phone], CC: Sarah Pizano MD; Bubba Romero Box Sealing Machine Operator: Signed 01-Jun-2016 PT D/C of Non Returning Pt (1) Result: Comments: See Note; NOTES: [facility] Physical Therapy [facility] [address] [place] [address]. [address] [place] [address] Fax REHABILITATION SERVICES DISCHAR GE SUMMARY MR#: [id number] Acct: [id number] Name: JOSE J COBIAN Rep #: [id number] Operative Report Result: Comments: See Note; NOTES: [facility] Medical Records Department [address] [facility] [place] [address] Operative Report MR#: [id number] Acct: [id number] Name: JOSE J COBIAN Rep #: [id number] : 1955 61 From: Bubba Romero MD PCP: Sarah Pizano MD Status: DEP [facility] DATE OF SERVICE: 03/22/2016 DATE OF SERVICE: [...] procedure if indicated. Bubba Romero MD T: [facility] JOB: [id number] 04/05/16 1351 <E lectronically signed by Bubba Romero MD> Date Bubba Romero MD Cosigner Signature (If Indicated): Date CC: Sarah Pizano MD; Bubba Romero Date Dictated: 03/22/161415 Date Transcribed: 03/22/161415 Box Sealing Machine Operator: Signed 01-Apr-2016 Echocardiogram Complete Result: Comments: See Note; NOTES: [facility] Cardiovascular Services [address] [place] [address] Echo Complete 04/01/16 1256 MR#: [id number] Acct: [id number] Name: JOSE J COBIAN Rep #: [id number] : 1955 61 From: Antonino Lucas MD Attending Dr: Antonino Lucas MD Status: REG CLI Ordering Dr: Antonino Lucas MD Date: 04/01/16 Location: [facility] Sex: F C Admitted: Reason For Study: [...] Dictated: 04/01/16 1256 Date Transcribed: 04/01/16 1515 Box Sealing Machine Operator: Signed 22-Mar-2016 Breast Limited Unilateral Result: Comments: See Note; NOTES: [facility] Imaging Services [address] [place] [address] Verdana 4d Breast Limited Unilateral MR#: [id number] Acct: [id number] Name: JOSE J COBIAN Rep #: [id number] : 1955 F 61 From: Bartolome Patel MD PCP: Sarah Pizano MD Status: REG CLI Study: Breast Limited Unilateral Date of Exam: 03/22/16 Exam# [id number] Ordering Dr: aZck Pizano MD STUDY: ULTRASOUND BREAST - RIGHT [...] Bartolome Patel MD at 12:35 EDT Tel [phone], Service support [phone], CC: Sarah Pizano MD Box Sealing Machine Operator: Signed 19-Mar-2016 Thoracic Spine 3 Views Result: Comments: See Note; NOTES: [facility] Imaging Services [address] [place] [address] Verdana 4d Thoracic Spine 3 Views MR#: [id number] Acct: [id number] Name: JOSE J COBIAN ep #: [id number] : 1955 F 61 From: Bartolome Patel MD PCP: Sarah Pizano MD Status: [facility] Study: Thoracic Spine 3 Views Date of Exam: 03/22/16 Exam# [id number] Ordering Dr: Bubba Romero MD STUDY: X-RAY [...] Bartolome Patel MD at 14:10 EDT Tel [phone], Service support [phone], CC: Sarah vasquez MD; Bubba Romero Box Sealing Machine Operator: Signed 19-Mar-2016 Inital Evaluation (1) - PT Result: Comments: See Note; NOTES: [facility] Physical Therapy [facility] [address] [place] [address]. [address] [place], [place] [address] Fax REHABILITATION SERVICES INITIA L EVALUATION MR#: [id number] Acct: [id number] Name: JOSE J COBIAN Rep #: [id number] : 1955 61 From: Mac Smith Referring [...] to be FAXED BACK to us at [phone] for Medicare purposes. Please let me know [...] AND CAD Result: Comments: See Note; NOTES: [facility] Imaging Services [address] [place] [address] Verdana 4d Bilat Scrn Digital AND CAD MR#: [id number] Acct: [id number] Name: JOSE J COBIAN Rep #: [id number] : 1955 F 61 From: Bartolome Patel MD PCP: Sarah Pizano MD Status: REG CLI Study: Bilat Scrn Digital AND CAD Date of Exam: 03/16/16 Exam# [id number] Ordering Dr: Sarah Pizano MD MAMMOGRAPHY - [...] delay biopsy of a clinically suspicious abnormality. [id number] Electronically Signed: Bartolome Patel MD at 15:06 EDT Tel [phone], Service supp ort [phone], CC: Sarah Pizano MD Box Sealing Machine Operator: Signed 16-Mar-2016 Dexa Bone Density Study (HP) Result: Comments: See Note; NOTES: [facility] Imaging Services [address] [place] [address] Verdana 4d Dexa Bone Density Study (HP) MR#: [id number] Acct: [id number] Name: MAURI COBIAN ZACK Walker Rep #: [id number] : 1955 F 61 From: Bartolome Patel MD PCP: Sarah Pizano MD Status: REG CLI Study: Dexa Bone Density Study (HP) Date of Exam: 03/16/16 Exam# [id number] Ordering Dr: Sarah Deng MD STUDY: DUAL [...] Bartolome Patel MD at 14:15 EDT Tel [phone], Service support [phone], CC: Sarah Pizano MD Box Sealing Machine Operator: Signed 22-Feb-2016 History and Physical Exam Result: Comments: See Note; NOTES: [facility] Medical Records Department [address] [place] [address] History and Physical 02/22/162054 MR#: [id number] Acct: [id number] Name: JOSE J COBIAN Rep #: [id number] : 1955 60 From: An Detn DO PCP: Sarah Pizano MD Status: REG ER Y Location: ED Problem List (1) Chest pain Status: Acute Qualifiers: Chest pain type: precor dial chest pain Qualifier Code: (R07.2) Precordial pain History of Present Illness Date of Admission: 02/22/16 Chief Complaint: Chest pain The patient is a 60 year old F who was seen in the emergency room at [facility] with a chief complaint of [...] - Mediport placement Psychiatric Hist ory: Anxiety 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 Lives: Spouse/ Significant Other Smoking Status: [...] 44.6 L Lymph % (Auto) 46.1 H Mckenzie % (Auto) 6.9 Eos % (Auto) 2.0 [...] albuterol inhaler as needed #5 anxiety 02/22/16 4222 <Electronically signed by An Dent DO> Date An schmidt DO Cosigner Signature (if applicable): Date CC: Sarah Pizano MD; An Dent DO Signed 22-Feb-2016 Chest 1 View (Portable) Result: Comments: See Note; NOTES: [facility] Imaging Services [address] [place] [address] Verdana 4d Chest 1 View (Portable) MR#: [id number] Acct: [id number] Name: JOSE J COBIAN Rep #: [id number] : 1955 F 60 From: Kim Dsouza MD PCP: Sarah Pizano MD Status: REG ER Study: Chest 1 View (Portable) Date of Exam: 02/22/16 Exam# [id number] Ordering Dr: Mac Chi MD STUDY: X-RAY [...] MD at 19:35 EDT , Service support [phone], CC: Sarah Pizano MD; Mac Chi MD Box Sealing Machine Operator: Signed 16-Feb-2016 Thoracic Spine 3 Views Result: Comments: See Note; NOTES: [facility] Imaging Services [address] [place] [address] Verdana 4d Thoracic Spine 3 Views MR#: [id number] Acct: [id number] Name: JOSE J COBIAN Yamilka ep #: [id number] : 1955 F 60 From: Kirk Wall MD PCP: Sarah Pizano MD Status: REG CLI Study: Thoracic Spine 3 Views Date of Exam: 02/16/16 Exam# [id number] Ordering Dr: Sarah Pizano MD UDY: X-RAY [...] at 21:50 EDT , S maurilioe support [phone], CC: Sarah Pizano MD Box Sealing Machine Operator: Signed 03-Nov-2015 Operative Report Result: Comments: See Note; NOTES: [facility] Medical Records Department [address] [place] [address] Operative Report MR#: [id number] Acct: [id number] Name: JOSE J COBIAN Rep #: [id number] : 1955 60 From: Bubba Romero MD PCP: Sarah Pizano MD Status: [facility] DATE OF SERVICE: 10/20/2015 DATE OF PROCEDURE: [...] indicated. Lidia Romero MD T: NTS JOB: [id number] 11/03/15 7161 <Electronically signed by Bubba Romero MD> Date Bubba Romero MD Co signer Signature (If Indicated): Date CC: Sarah Pizano MD; Bubba Romero Date Dictated: 10/20/15 1351 Date Transcribed: 10/20/15 135 Box Sealing Machine Operator: Signed 20-Oct-2015 Cerv Spine 2 or 3 Views Result: Comments: See Note; NOTES: [facility] Imaging Services [address] [place] [address] Verdana 4d Cerv Spine 2 or 3 Views MR#: [id number] Acct: [id number] Name: JOSE J NOWAK Rep #: [id number] : 1955 F 60 From: Bartolome Patel MD PCP: Sarah Pizano MD Status: [facility] Study: Cerv Spine 2 or 3 Views Date of Exam: 10/20/15 Exam# [id number] Ordering Dr: Bubba Romero MD STUDY: X-RAY [...] Bartolome Patel MD at 13:45 EDT Tel [phone], Service support [phone], RAD/Cerv Spine 2 or 3 Views IMPRESSION: Fluoroscopic services provided for right 4 through C7 facet block. Electronically Signed: Bartolome Patel MD at 13:45 EDT Tel [phone], Service support [phone], CC: Sarah Pizano MD; Bubba Romero Box Sealing Machine Operator: Signed 18-Aug-2015 Operative Report Result: Comments: See Note; NOTES: [facility] Medical Records Department [address] [place] [address] Operative Report MR#: [id number] Acct: [id number] Name: JOSE J COBIAN Rep #: [id number] : 1955 60 From: Bubba Romero MD PCP: Sarah Pizano MD Status: [facility] DATE OF SERVICE: 08/04/2015 DATE OF SERVICE: [...] d. Bubba Romero MD T: NTS JOB: [id number] 08/18/15 0927 <Electronically signed by Bubba Romero MD> Date Bubba copeland MD Cosigner Signature (If Indicated): Date CC: Sarah Pizano MD; Bubba Romero Date Dictated: 08/04/151432 Date Transcribed: 08/04/151432 Box Sealing Machine Operator: Signed 04-Aug-2015 Cerv Spine 2 or 3 Views Result: Comments: See Note; NOTES: [facility] Imaging Services [address] [place] [address] Verdana 4d Cerv Spine 2 or 3 Views MR#: [id number] Acct: [id number] Name: JOSE J NOWAK Rep #: [id number] : 1955 F 60 From: Kirk Wall MD PCP: Sarah Pizano MD Status: [facility] Study: Cerv Spine 2 or 3 Views Date of Exam: 08/04/15 Exam# [id number] Ordering Dr: Osiel Romero MD STUDY: X-RAY [...] MD at 16:28 EST , Service support [phone], RAD/Cerv Spine 2 or 3 Views IMPRESSION: Needle positions as above. Electronically Signed: Kirk Wall MD at 16:28 EST , Service support [phone], CC: Sarah Pizano MD; Bubba Romero Box Sealing Machine Operator: Signed 02-Jul-2015 Hip min 2 Views Result: Comments: See Note; NOTES: [facility] Imaging Services [address] [place] [address] Verdana 4d Hip min 2 Views MR#: [id number] Acct: [id number] Name: VIRAJ COBIAN Rep #: [id number] : 1955 F 60 From: Tuan Boyd MD PCP: Sarha Pizano MD Status: REG CLI Study: Hip min 2 Views Date of Exam: 07/02/15 Exam# [id number] Ordering Dr: Sarah Pizano MD S TUDY: [...] at 12:42 EST Tel , Service support [phone], Fax RAD/Hip min 2 Views IMPRESSION: Normal x-ray examination of the hip. Electronically Signed: Lucius Boyd MD at 12:42 EST Tel , Servic e support [phone], CC: Sarah Pizano MD Box Sealing Machine Operator: Signed 24-Jun-2015 Pelvis 1 or 2 Views Result: Comments: See Note; NOTES: [facility] Imaging Services [address] [place] [address] Verdana 4d Pelvis 1 or 2 Views MR#: [id number] Acct: [id number] Name: JOSE J COBIAN Rep #: [id number] : 1955 F 60 From: Prosper Dumont MD PCP: Sarah Pizano MD Status: REG CLI Study: Pelvis 1 or 2 Views Date of Exam: 06/24/15 Exam# [id number] Ordering Dr: Tuan Pizano MD STUDY: X-RAY [...] at 11:20 EST Tel , Service support [phone], RAD/Pelvis 1 or 2 Views IMPRESS ION: There is narrowing with cortical sclerosis and osteophyte formation of the sacroiliac joint consistent with degenerative osteoarthritic changes. Electronically Signed: Lavell Dumont MD 08/26 at 11:20 EST Tel , Service support [phone], CC: Sarah Pizano MD Box Sealing Machine Operator: Signed 07-Feb-2015 Chest PA and Lateral Result: Comments: See Note; NOTES: [facility] Services [address] [place] [address] Radiology Report MR#: [id number] Acct: [id number] Name: JOSE J COBIAN Rep #: [id number] : 1955 F 59 From: Baldemar Torres DO PCP: Sarah Pizano MD Status: REG CLI Study: Chest PA and Lateral Date of Exam: 02/07/15 Exam# [id number] Ordering Dr: Pamella Saavedra STUDY: X-RAY CHES [...] Baldemar Torres DO at 19:14 EDT Tel [phone], Service support , RAD/Chest PA and Lateral IMPRESSION: No acute cardiopulmonary disease or interval change. Electronically Signed: Baldemar Torres DO at 19: 14 EDT Tel [phone], Service support [phone], CC: Pamella Saavedra; Sarah Pizano MD Box Sealing Machine Operator: Signed 05-Feb-2014 Katie [facility] [employer] Result: Comments: See Note; NOTES: [facility] Imaging Services [address] [place] [address] Breast Imaging Report MR#: [id number] Acct: [id number] Name: JOSE J COBIAN Rep #: [id number] : 1955 F 58 From: Bartolome Patel MD PCP: Sarah Pizano MD Status: REG CLI Exam# [id number] Ordering Dr: Sarah Pizano MD MAMMOGRAPHY - [...] Bartolome Patel MD at 13:16 EDT Tel [phone], Service support [phone], CC: Sarah Pizano MD 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 yazidi important Status: Active Most Recent Primary Occupation Comments: [employer] retired. 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 sweetheart [...] smoker Vital Signs Date Test Result Details 59-Hvg-087712:36 Temperature 97.9 f Comments: Method: Temporal Pulse [...] Value Details 03-Apr-20188:00 Protime w/INR Fingerstick Comments: [facility] LaboratoryPoint of Habc[address] [place], [place] [id number] INR ISTAT 1.10 (Normal) Comments: Critical Value > 3.5 PROTIME ISTAT 13.7 {SEC} (Normal) Range: 11.9-14.4 Comments: Reference Range 11.9 - 14.4 :23 Amylase 89 U/L (Normal) Comments: PATIENT NOT FASTINGPERFORMED BY: [facility]6370 [facility] [id number] Range: 31-124 :23 CBC With Differential/Platelet Comments: PATIENT NOT FASTINGPERFORMED BY: [facility]6370 [facility] [id number] Immature Grans (Abs) 0.0 {x10E3/uL} (Normal) Range: [...] 3.77-5.28 WBC 4.2 {x10E3/uL} (Normal) Range: 3.4-10.8 48-Pol-531378:23 Comp. Metabolic Panel (14) Comments: PATIENT NOT FASTINGPERFORMED BY: Topica PharmaceuticalsMimbres Memorial HospitalFnoays9782 [facility] [id number] ALT (SGPT) 18 [iU]/L (Normal) Range: 0-32 [...] U/L (Abnormal) Comments: PATIENT NOT FASTINGPERFORMED BY: Topica PharmaceuticalsMimbres Memorial HospitalLjhlof7741 [facility] [id number] 4:23 Range: 14-72 37-Iuq-361313:23 Urinalysis, Routine Comments: PATIENT NOT FASTINGPERFORMED BY: [employer] Wnohot0005 [facility] [id number] Microscopic Examination MICNIP (Normal) Comments: Microscopic not indicated and not performed. Nitrite, Urine Negative (Normal) Urobilinogen,Semi-Qn 1.0 mg/dL (Normal) Range: 0.2-1.0 Bilirubin Negative (Normal) Occult Blood Negative (Normal) Ketones Negative (Normal) Glucose Negative (Normal) Protein Negative (Normal) WBC Esterase Negative (Normal) Appearance Clear (Normal) Urine-Color Yellow (Normal) pH 6.0 (Normal) Range: 5.0-7.5 Specific [place] 1.020 (Normal) Range: 1.005-1.030 :42 Protime w/INR Fingerstick Comments: [facility] LaboratoryPoint of [address] [place], [place] [address] INR ISTAT 1.00 (Normal) Comments: Critical Value > 3.5 PROTIME ISTAT 12.4 {SEC} (Normal) Range: 11.9-14.4 Comments: Reference Range 11.9 - 14.4 01-Cjs-204897:14 CBC W/Diff, Automated Comments: [facility] [address] [place], [place], [address] ; fu 6-19 Absolute Lymph 1.62 {X10_3/ul} [...] 4.2-5.4 WBC 4.7 K/mm3 (Normal) Range: 4.4-11.0 24-Kkj-198618:14 Comprehensive Metabolic Profil Comments: [facility] [address] [place], [address] GAP 5 (Normal) Range: 5-15 CO2 29.0 [...] A.D.A. criteria.Please note revised GLUCOSE reference range epfjcmvzi75/02/2018. 55-Vqn-200658:14 Ferritin Comments: [facility] [address] [place], [address] FERRITIN 82 ng/mL (Normal) Range: 8-252 45-Guo-649909:14 Vitamin B12 558 pg/mL (Normal) Comments: [facility] [address] [place], [address] Range: 211-911 :07 Protime w/INR Fingerstick Comments: [facility] LaboratoryPoint [place] [address] [place] [address] INR ISTAT 1.30 (Normal) Comments: Critical Value > 3.5 PROTIME ISTAT 14.9 {SEC} (Abnormal) Range: 11.9-14.4 Comments: Reference Range 11.9 - 14.4 08-Aug-20179:10 Protime w/INR Fingerstick Comments: [facility] LaboratoryPoint [place] [address] [place] [address] INR ISTAT 1.10 (Normal) Comments: Critical Value > 3.5 PROTIME ISTAT 13.0 {SEC} (Normal) Range: 11.9-14.4 Comments: Reference Range 11.9 - 14.4 80-Urc-708385:32 Culture, Blood (WB) Comments: [facility] [address] [place], [address] CUB See Note (Normal) Comments: Has pt arrived? Y Comments: DR. Mello growth in 5 days. 27-Qkh-765532:25 CBC W/Diff, Automated Comments: Comments: DR Cui [facility] [address] [place], [address] Absolute Lymph 1.68 {X10_3/ul} (Normal) Range: 0.83-4.51 [...] 4.2-5.4 WBC 3.9 K/mm3 (Abnormal) Range: 4.4-11.0 62-Xve-352303:25 Culture, Blood (WB) Comments: [facility] [address] [place], [address] CUB See Note (Normal) Comments: Has pt arrived? Y Comments: DR. Mello growth in 5 days. 18-Rkt-873904:25 Erythrocyte Sed Rate Comments: Comments: [facility] [address] [place], [address] SED RATE 8 mm/h (Normal) Range: 0-30 08-Oyr-825128:25 Ferritin Comments: Comments: [facility] [address] [place], [address] FERRITIN 83 ng/mL (Normal) Range: 8-252 52-Ezr-651362:25 Vitamin D,25 Hydroxy Comments: Order Date: 07/20/17[facility] N[address] [place]én[place], [address] Vitamin D 25-OH 34.6 ng/mL (Normal) Comments: Vitamin D 25(OH) Status Range Deficiency <20 ng/mL (50nmol/L) Insuffciency 20 - 30 ng/mL (50 - 75 nmol/L) Sufficiency 30 - 100 ng/mL (75 - 250 nmol/L) Toxicity >100 ng/mL (>250 nmol/L) 97-Fum-471900:10 Culture, Urine Comments: [facility] [address] [place]én[place], [phone] CUUR See Note (Normal) Comments: Order Date: 07/20/17 Comments: DR PIZANO Urine CultureCulture exhibits no growth. 44-Xmc-355830:10 Urinalysis, Complete Comments: Order Date: 07/20/17Has pt arrived? YComments: DR Morales was Urine Obtained? [facility] T[address]tagjt[address] [place], [id number] MUCUS, URINE 0 SEEN {/hpf} (Normal) BACTERIA [...] (Normal) CLARITY Clear (Normal) COLOR Yellow (Normal) 5-Xat-344967:48 Protime w/INR Fingerstick Comments: [place] [address] [place] [address] INR ISTAT 1.10 (Normal) Comments: Critical Value > 3.5 PROTIME ISTAT 13.2 {SEC} (Normal) Range: 11.9-14.4 Comments: Reference Range 11.9 - 14.4 :30 Protime w/INR Fingerstick Comments: [place] [address] [place] [address] INR ISTAT 1.10 (Normal) Comments: Critical Value > 3.5 PROTIME ISTAT 12.8 {SEC} (Normal) Range: 11.9-14.4 Comments: Reference Range 11.9 - 14.4 :44 INR Fingerstick Comments: [place] [address] [place] [address] INR ISTAT 1.10 (Normal) Comments: Critical Value > 3.5 :44 Prothrombin Time Fingerstick Comments: [place] [address] [place] [address] PROTIME ISTAT 13.6 {SEC} (Normal) Range: 11.9-14.4 Comments: Reference Range 11.9 - 14.4 65-Dib-928171:17 HgA1C , Office (90047) HgA1C , Office 5.7 % (Normal) Range: 4.6 - 7.1 :08 Metabolic Panel, Basic Comments: PATIENT NOT FASTINGPERFORMED BY: LabCoRobert Wood Johnson University HospitalDjvccj9738 [facility] [id number] (77284) Calcium, Serum 9.1 mg/dL (Normal) Range: 8.7-10.3 [...] Glucose, Serum 97 mg/dL (Normal) Range: 65-99 99-Aro-549096:08 CBC (Auto) (91287) Comments: PATIENT NOT FASTINGPERFORMED BY: Topica PharmaceuticalsDebra Ville [address] [facility] [id number] Platelets 306 {x10E3/uL} (Normal) Range: 150-379 RDW 15.6 % (Abnormal) Range: 12.3-15.4 MCHC 32.9 g/dL (Normal) Range: 31.5-35.7 MCH 28.3 pg (Normal) Range: 26.6-33.0 MCV 86 fL (Normal) Range: 79-97 Hematocrit 35.9 % (Normal) Range: 34.0-46.6 Hemoglobin 11.8 g/dL (Normal) Range: 11.1-15.9 RBC 4.17 {x10E6/uL} (Normal) Range: 3.77-5.28 WBC 4.6 {x10E3/uL} (Normal) Range: 3.4-10.8 :08 URINALYSIS W/O MICRO (09569) Comments: PATIENT NOT FASTINGPERFORMED BY: LabCoRobert Wood Johnson University HospitalXkmksy9651 [facility] [id number] Microscopic Examination MICNIP (Normal) Comments: Microscopic not indicated and not performed. Nitrite, Urine Negative (Normal) Urobilinogen,Semi-Qn 0.2 mg/dL (Normal) Range: 0.2-1.0 Bilirubin Negative (Normal) Occult Blood Negative (Normal) Ketones Negative (Normal) Glucose Negative (Normal) Protein Negative (Normal) WBC Esterase Negative (Normal) Appearance Clear (Normal) Urine-Color Yellow (Normal) pH 6.0 (Normal) Range: 5.0-7.5 Specific [place] 1.013 (Normal) Range: 1.005-1.030 73-Act-579107:08 COMPLEMENT C4 (89428) Comments: PATIENT NOT FASTINGPERFORMED BY: [facility]6370 [facility] [id number] Complement C4, Serum 16 mg/dL (Normal) Range: 14-44 97-Cqm-171777:08 COMPLEMENT C3 (47725) Comments: PATIENT NOT FASTINGPERFORMED BY: [facility]6370 [facility] [id number] Complement C3, Serum 103 mg/dL (Normal) Range: 82-167 58-Uho-446734:08 DNA ANTIBODY-NATV/DBL ST (48201) Comments: PATIENT NOT FASTINGPERFORMED BY: [place] [address] [facility] [id number] test code 616170 Anti-DNA (DS) Ab Qn <1 {IU/mL} (Normal) Range: 0-9 Comments: Negative <5 Equivocal 5 - 9 Positive >9 56-Txh-871043:08 Sed Rate Erythrocyte (07542) Comments: PATIENT NOT FASTINGPERFORMED BY: [facility]6370 [facility] [id number] Sedimentation Rate-Westergren 4 mm/h (Normal) Range: 0-40 90-Iod-886155:08 DESIRAE (ANTINUCLEAR ANTIBODY) Comments: PATIENT NOT FASTINGPERFORMED BY: [facility]6370 [facility] [id number] (94778) DESIRAE Direct Negative (Normal) 6-Lcx-818445:04 Prothrombin Time w/INR Comments: [facility] [address] [place], [place], [address] INR 1.5 (Normal) PROTIME 17.8 s (Abnormal) Range: 11.7-14.9 40-Crn-640689:45 Prothrombin Time w/INR Comments: [facility] [address] [place], [place], [address](627) INR 3.0 (Normal) PROTIME 30.3 s (Abnormal) Range: 11.7-14.9 09-Oct-20168:51 Serum Creatinine AND GFR Comments: [facility] [address] [place], [address] EST GFR - AA 90 mL/min (Normal) Comments: GFR Calc EST GFR 74 mL/min (Normal) Comments: Non- GFR Calc CREAT,SERUM 0.83 mg/dL (Normal) Range: 0.55-1.02 Comments: The validity of the calculated GFR AND GFRAA in patients over70 years has not been determined. Clinical correlation isessential. :21 LIPASE (02831) Comments: PATIENT NOT FASTINGPERFORMED BY: CB [facility] Aqyvch8504 [address] RoadDublin [place] [id number] Lipase, Serum 46 U/L (Normal) Range: 14-72 Comments: Please note reference interval change :21 AMYLASE (71414) Comments: PATIENT NOT FASTINGPERFORMED BY: CB [facility] Owxusj4212 [address]ila RoadDublin [place] [id number] Amylase, Serum 65 U/L (Normal) Range: 31-124 :21 CALCIFIDIOL (86295) VIT D 25 Comments: PATIENT NOT FASTINGPERFORMED BY: [facility] Qwrzzn4110 [address]ila RoadDublin [place] [id number] Vitamin D, 25-Hydroxy 25.8 ng/mL (Abnormal) Range: 30.0-100.0 Comments: Vitamin D deficiency has been defined by the [place] of[place] and an Endocrine Society practice guideline as alevel of serum 25-OH vitamin D less than 20 ng/mL (1,2).The Endocrine Society went on to further define vitamin Dinsufficiency as a level between 21 and 29 ng/mL (2).1. IOM ([place] of [employer]). 2010. Dietary reference intakes for calcium and D. Lal [place]: The National Academies Press.2. Candelaria MF, Janey NC, Rahul-Everett GROSS, et al. Evaluation, treatment, and prevention of vitamin D deficiency: an Endocrine Society clinical practice guideline. JCEM. 2010; 96(7):1911-30. :21 Ferritin (13866) Comments: PATIENT NOT FASTINGPERFORMED BY: [facility] Dqpqpc7284 [address] RoadDublin [place] [id number]; fu 10-27 db Ferritin, Serum 10 ng/mL (Abnormal) Range: 15-150 4-Ixu-221106:21 Vitamin B-12 (cyanocobalamin) Comments: PATIENT NOT FASTINGPERFORMED BY: Insp[facility] TechnologiesMar[facility] Hospital6370 [facility] [id number] (09177) Vitamin B12 1888 pg/mL (Abnormal) Range: 211-946 2-Vip-333896:21 METABOLIC PANEL, COMPREHENSIVE Comments: PATIENT NOT FASTINGPERFORMED BY: Inspired TechnologiesMarlette Regional Hospital6370 [facility] [id number] (96193) ALT (SGPT) 11 [iU]/L (Normal) Range: 0-32 [...] Glucose, Serum 101 mg/dL (Abnormal) Range: 65-99 6-Tub-348291:21 CBC with auto diff Comments: PATIENT NOT FASTINGPERFORMED BY: MONA DelaGet6370 [facility]ilaSaint [facility] [id number] Information: CLIENT DRAW (15423) Immature Grans (Abs) 0.0 {x10E3/uL} (Normal) Range: [...] 3.77-5.28 WBC 5.7 {x10E3/uL} (Normal) Range: 3.4-10.8 21-Elz-218062:14 Prothrombin Time w/INR Comments: [facility] [address] [place], [place], [address] INR 1.9 (Normal) Comments: ADDENDA: handled by cardio PROTIME 21.0 s (Abnormal) Range: 11.7-14.9 76-Nca-038615:57 HEPATIC FUNCTION PANEL Comments: PATIENT NOT FASTINGPERFORMED BY: [facility]6370 [facility] [id number] (48264) ALT (SGPT) 15 [iU]/L (Normal) Range: 0-32 AST (SGOT) 20 [iU]/L (Normal) Range: 0-40 Alkaline Phosphatase, S 114 [iU]/L (Normal) Range: 39-117 Bilirubin, Direct 0.10 mg/dL (Normal) Range: 0.00-0.40 Comments: Please note reference interval change Bilirubin, Total <0.2 mg/dL (Normal) Range: 0.0-1.2 Albumin, Serum 4.9 g/dL (Abnormal) Range: 3.6-4.8 Protein, Total, Serum 7.1 g/dL (Normal) Range: 6.0-8.5 :57 IGA/IGD/IGG/IGM-EACH (65381) Comments: PATIENT NOT FASTINGPERFORMED BY: [facility]6370 [facility] [id number] Immunoglobulin E, Total 50 {IU/mL} (Normal) Range: 0-100 Immunoglobulin M, Qn, Serum 43 mg/dL (Normal) Range: 26-217 Immunoglobulin A, Qn, Serum 131 mg/dL (Normal) Range: 87-352 Immunoglobulin G, Qn, Serum 753 mg/dL (Normal) Range: 700-1600 :57 EBV ACUTE PFOF IgG/IgM Comments: PATIENT NOT FASTINGPERFORMED BY: [facility]6370 [facility] [id number] (42927) Interpretation: [facility] (Normal) Comments: EBV Interpretation Chart . Interpretation [...] <36.0 Equivocal 36.0 - 43.9 Positive >43.9 77-Fgm-454994:57 LDH (LD) (LACTATE DEHYDROGENASE) Comments: PATIENT NOT FASTINGPERFORMED BY: [address] [id number] (07354) LDH 191 [iU]/L (Normal) Range: 119-226 :57 HIV-1 & 2 ANTBDY-SNGL SHAWN Comments: PATIENT NOT FASTINGPERFORMED BY: [address] [id number] (80588) HIV Screen 4th Generation wRfx Non Reactive (Normal) :57 HEPATITIS PANEL (76011) Comments: PATIENT NOT FASTINGPERFORMED BY: [place] [address] [facility] [id number] Hep C Virus Ab 0.1 {s/co_ratio} (Normal) Range: 0.0-0.9 Comments: Negative: < 0.8 Indeterminate: 0.8 - 0.9 Positive: > 0.9 . The CDC recommends that a positive HCV antibody result be followed up with a HCV Nucleic Acid Amplification test (356170). Hep B Core Ab, IgM Negative (Normal) HBsAg Screen Negative (Normal) Hep A Ab, IgM Negative (Normal) :56 Culture, Blood (WB) Comments: [facility] [address] [place], [place], [id number] CUB See Note (Normal) Comments: BCNo growth [...] Present - Antibody Ab sentPerformed at: [address] [id number] Director: Neo Campos PhD, Phone: [phone] EB-NAg EyC81885 136.0 U/mL (Abnormal) Range: 0.0-17.9 Comments: Negative <18.0 Equivocal 18.0 - 21.9 Positive >21.9 EB-VCA WcR17301 255.0 U/mL (Abnormal) Range: 0.0-17.9 Comments: Negative <18.0 Equivocal 18.0 - 21.9 Positive >21.9 EB-EA IgG 68452 18.4 U/mL (Abnormal) Range: 0.0-8.9 Comments: Hepatitis A, Hepatitis C and HIV antibodies may cross-reactwith this assay. Negative < 9.0 Equivocal 9.0 - 10.9 Positive >10.9 EB-VCA UvJ10020 36.1 U/mL (Abnormal) Range: 0.0-35.9 Comments: A second sample should be collected and tested no less than2-4 weeks. Negative <36.0 Equivocal 36.0 - 43.9 Positive >43.9 0-Jfs-162326:56 Ferritin Comments: [facility] [address] [place] [address], [id number] FERRITIN 34 ng/mL (Normal) Range: 8-252 5-Vcj-368549:56 Vitamin D,25 Hydroxy Comments: [facility] [address] [place], [address] Vitamin D 25-OH 29.2 ng/mL (Normal) Comments: Vitamin D 25(OH) Status Range Deficiency <20 ng/mL (50nmol/L) Insuffciency 20 - 30 ng/mL (50 - 75 nmol/L) Sufficiency 30 - 100 ng/mL (75 - 250 nmol/L) Toxicity >100 ng/mL (>250 nmol/L) 6-Lnx-933391:03 INR Fingerstick Comments: [place] [address] [place] [address] INR ISTAT 1.00 (Normal) Comments: Critical Value > 3.5 5-Cnc-645311:03 Prothrombin Time Fingerstick Comments: [place] [address] [place] [address] PROTIME ISTAT 12.1 {SEC} (Normal) Range: 11.9-14.4 Comments: Reference Range 11.9 - 14.4 82-Xwj-083860:55 Prothrombin Time w/INR Comments: [place] [address] [place], [address] INR 2.6 (Normal) PROTIME 26.7 s (Abnormal) Range: 11.7-14.9 :44 GRETTA CULTURE-OTHER (05605) Comments: PATIENT NOT FASTINGPERFORMED BY: [facility]Nov[facility] [id number] Information: THROAT SRC:TH Result 1 RRF (Normal) Comments: Routine respiratory rajwinder Upper Respiratory Culture Final report (Normal) 85-Dkp-311571:31 Rapid Flu (11718 x 2) Influenza A Ag negative (Normal) 12-Uxe-856305:31 Rapid Strep Test, Office (84641) Rapid Strep Test, Office Negative (Normal) 45-Uer-013509:46 Microscopic Examination Comments: PATIENT NOT FASTINGPERFORMED BY: [employer]6370 DailyStrengthNovant Health / [facility] [id number] Bacteria Few (Normal) Mucus Threads Present (Normal) Crystal Type Calcium Oxalate (Normal) Crystals Present (Abnormal) Epithelial Cells (non renal) 0-10 {/hpf} (Normal) Range: 0 - 10 RBC 0-2 {/hpf} (Normal) Range: 0 - 2 WBC 0-5 {/hpf} (Normal) Range: 0 - 5 77-Ahd-139202:46 URINALYSIS (37394) Comments: PATIENT NOT FASTINGPERFORMED BY: Inspired TechnologiesMarlette Regional Hospital6370 [facility] [id number] Microscopic Examination See below: (Normal) Comments: Microscopic was indicated and was performed. Nitrite, Urine Negative (Normal) Urobilinogen,Semi-Qn 1.0 mg/dL (Normal) Range: 0.2-1.0 Bilirubin Negative (Normal) Occult Blood Negative (Normal) Ketones Negative (Normal) Glucose Negative (Normal) Protein Negative (Normal) WBC Esterase 1+ (Abnormal) Appearance Clear (Normal) Urine-Color Yellow (Normal) pH 6.0 (Normal) Range: 5.0-7.5 Specific [place] 1.018 (Normal) Range: 1.005-1.030 :46 CBC WITH MANUAL DIFF (31811) Comments: PATIENT NOT FASTINGPERFORMED BY: Topica PharmaceuticalsRobert Wood Johnson University HospitalEiathq1605 [facility] [id number] Immature Grans (Abs) 0.0 {x10E3/uL} (Normal) Range: [...] 3.77-5.28 WBC 4.5 {x10E3/uL} (Normal) Range: 3.4-10.8 56-Nhu-008799:46 Ferritin (48909) Comments: PATIENT NOT FASTINGPERFORMED BY: DelaGet6370 [facility] [id number] Ferritin, Serum 10 ng/mL (Abnormal) Range: 15-150 92-Noj-446217:46 Metabolic Panel, Comprehensive Comments: PATIENT NOT FASTINGPERFORMED BY: DelaGet6370 [facility] [id number] (53721) ALT (SGPT) 18 [iU]/L (Normal) Range: 0-32 [...] Glucose, Serum 86 mg/dL (Normal) Range: 65-99 75-Bdw-285899:46 AMYLASE (41233) Comments: PATIENT NOT FASTINGPERFORMED BY: LabCoRobert Wood Johnson University HospitalJvyvjd6080 [facility] [id number] Amylase, Serum 81 U/L (Normal) Range: 31-124 49-Epc-802546:46 LIPASE (86371) Comments: PATIENT NOT FASTINGPERFORMED BY: [facility] Kiwqdh5110 [facility] [id number] Lipase, Serum 79 U/L (Abnormal) Range: 0-59 72-Yhl-875871:33 Prothrombin Time w/INR Comments: Order Date: 03/23/16Order Date: 03/23/16Interface Comments: Reason:Order Date: 03/23/16[facility] [address] [place], [place], [address] INR 2.0 (Normal) PROTIME 22.3 s (Abnormal) Range: 11.7-14.9 :36 Prothrombin Time w/INR Comments: [facility] [address] [place], [place], [address] INR 1.4 (Normal) PROTIME 17.1 s (Abnormal) Range: 11.7-14.9 19-Jkz-048652:20 Prothrombin Time w/INR Comments: Order Date: 05/11/16Order Info: 6301-6 - *PT/INR - Standing OrderComments: Standing Order-Reason:Order Date: 05/11/16Order Info: 6301-6 - *PT/INR - Standing OrderComments: Standing Order- Reason:[facility] [address] [place], [place], [address] INR 1.2 (Normal) PROTIME 14.8 s (Normal) Range: 11.7-14.9 :50 Prothrombin Time w/INR Comments: Order Date: 05/11/16Order Info: 6301-6 - *PT/INR - Standing OrderComments: Standing Order-Reason:Order Date: 05/11/16Order Info: 6301-6 - *PT/INR - Standing OrderComments: Standing Order-Reason:Order Da te: 05/11/16Order Info: 6301-6 - *PT/INR - Standing OrderComments: Standing Order-Reason:[facility] [address] [place], [address] INR 1.2 (Normal) PROTIME 15.1 s (Abnormal) Range: 11.7-14.9 :00 Culture, Nose Comments: [facility] [address] [place], [address] CUN See Note (Normal) Comments: Comments: NARESGram StainGram Stain Rare White Blood Cells 1+ Epithelial cells 4+ Gram positive rods Nasoph. CultNo Haemophilus, Streptococcus pneumoniae, beta-hemolytic Streptococcus or Staphylococcus aureus isolated. :00 Culture, Throat Comments: [facility] [address] [place], [address] CUT See Note (Normal) Comments: Comments: NARESCulture, ThroatNo Haemophilus, Streptococcus pneumoniae, beta-hemolytic Streptococcus or Staphylococcus aureus isolated. 24-Ope-389428:05 Rapid Flu (67854 x 2) Influenza A Ag neg (Normal) :45 CBC W/Diff, Automated Comments: Order Date: 03/18/16Order Date: 03/18/16[facility] [address] [place], [address] Absolute Lymph 2.95 {X10_3/ul} (Normal) Range: 0.83-4.51 [...] 1'CKMB' Serial Specimen #1, #2 or #3? 1[facility] [address] [place] [address], [id number] CKRI 3.2 % (Abnormal) Range: 0.0-1.4 Comments: RELATIVE INDEX >1.5% IS PRESUMPTIVELY POSITIVE CPKMB 1.8 ng/mL (Normal) Range: 0.0-5.0 Comments: CK-MB and RI Interpretation MB Relative Index Non-AMI <or= 5 NA Indeterminate > 5 <or= 4 AMI > 5 > 4 CPK TOTAL 57 U/L (Normal) Range: 26-192 :45 Erythrocyte Sed Rate Comments: Order Date: 03/18/16Order Date: 03/18/16[facility] [address] [place] [address], [address] SED RATE 1 mm/h (Normal) Range: 0-30 :45 Myoglobin, Serum Comments: Order Date: 03/18/16[facility] (refer to report for specific site)refer to report for address and phone number Myoglobin, Ser 23 ng/mL (Abnormal) Range: 25-58 Comments: Performed at: - [facility] [address] [id number] Director: Neo Campos PhD, Phone: [phone] 98-Mxe-239958:45 Troponin-I Comments: Order Date: 03/18/16TROP ADDED 03/19/16Order Date: 03/18/16'TROP' Serial specimen #1, #2, #3, or #4: 1'CKMB' Serial Specimen #1, #2 or #3? [address] [place] [address] Lizblkdqzt7854 [facility] [place], [address] TROPONIN-I < 0.02 ng/mL (Normal) Comments: TROPONIN-I EXPECTED VALUES <0.05 NEGATIVE 0.06 - 0.59 AT RISK OF MD > OR = 0.60 SUGGEST MD 98-Ilt-960172:00 Basic Metabolic Profile (BMP) Comments: 'TROP' Serial specimen #1, #2, #3, or #4: [address] [place] [address] [address] [place], [place], [id number] GAP 6 (Normal) Range: 5-15 CO2 26.0 [...] 7-18 GLU 101 mg/dL (Normal) Range: 70-110 33-Lrd-012552:00 CBC W/Diff, Automated Comments: [facility] [address] [place], [place], [address] Absolute Lymph 2.27 {X10_3/ul} (Normal) Range: 0.83-4.51 [...] 4.2-5.4 WBC 4.9 K/mm3 (Normal) Range: 4.4-11.0 44-Rxv-816260:00 Lipase Comments: 'TROP' Serial specimen #1, #2, #3, or #4: [facility] [address]fag[address] [place], [address] LIPASE 351 U/L (Normal) Range: 73-393 55-Msy-341984:00 Liver Profile Comments: 'TROP' Serial specimen #1, #2, #3, or #4: [address] [place] [address] Tyicttjzkv5448[place], [address] D BILI 0.15 mg/dL (Normal) Range: 0.00-0.30 T BILI 0.30 mg/dL (Normal) Range: 0.20-1.00 ALT 23 U/L (Normal) Range: 12-78 ALK P 81 U/L (Normal) Range: 50-136 AST 24 U/L (Normal) Range: 15-37 GLOB 2.8 g/dL (Normal) Range: 2.3-3.5 ALB 4.0 g/dL (Normal) Range: 3.4-5.0 T PROT 6.8 g/dL (Normal) Range: 6.4-8.2 06-Ive-458823:00 Troponin-I Comments: 'TROP' Serial specimen #1, #2, #3, or #4: [address] [place] [address] Odbvndcrcg[address]27 [place], [address] TROPONIN-I < 0.02 ng/mL (Normal) Comments: TROPONIN-I EXPECTED VALUES <0.05 NEGATIVE 0.06 - 0.59 AT RISK OF MD > OR = 0.60 SUGGEST MD 96-Vvh-162227:08 Osmolality, Urine Comments: Order Date: 02/16/16Has pt arrived? [address] [place], [place], [id number] OSMOLALITY,UR 310 {mOsm/KG} (Normal) Comments: OSMOLALITY URINE REFERENCE INTERVALS 24-hour Urine 300 - 900 mOsm/kg Random Urine 50 - 1400 mOsm/kg After 12 Hr fluid restriction >850 mOsm/kg 15-Jza-177461:50 Amylase Comments: [place] [address] [address] [place], [place], [id number] PREMA 80 U/L (Normal) Range: 25-115 08-Nhv-867926:50 CBC W/Diff, Automated Comments: [address], [address] Absolute Lymph 1.51 {X10_3/ul} (Normal) [...] 4.2-5.4 WBC 4.3 K/mm3 (Abnormal) Range: 4.4-11.0 05-Iih-596304:50 Comprehensive Metabolic Profil Comments: [facility] [address] [place], [address] GAP 6 (Normal) Range: 5-15 [...] 7-18 GLU 98 mg/dL (Normal) Range: 70-110 62-Lea-391506:50 Lipase Comments: [address] [place], [address] LIPASE 424 U/L (Abnormal) Range: 73-393 82-Pfx-194783:50 Osmolality, Serum Comments: [address] [place], [id number] OSMOLALITY,SER 275 {mOsm/KG} (Normal) Range: 275-295 40-Whv-007122:50 Vitamin B12 489 pg/mL (Normal) Comments: [address] [place], [address] ; will review on 02/19 Range: 211-911 07-Rqx-523257:50 Vitamin D,25 Hydroxy Comments: [address] DarioeTimothy [place], [address] Vitamin D 25-OH 37.6 ng/mL (Normal) Comments: Vitamin D 25(OH) Status Range Deficiency <20 ng/mL (50nmol/L) Insuffciency 20 - 30 ng/mL (50 - 75 nmol/L) Sufficiency 30 - 100 ng/mL (75 - 250 nmol/L) Toxicity >100 ng/mL (>250 nmol/L) 24-Diu-50352:00 Ferritin Comments: [facility] [address] [place], [address] FERRITIN 13 ng/mL (Normal) Range: 8-252 :00 Lipid Profile Comments: [facility] [address] [place], [address] VLDL 28 mg/dL (Normal) Range: 5-40 LDL [...] 200-240 mg/dL Borderline >240 mg/dL High Risk 7-Vcb-192591:40 CBC W/Diff, Automated Comments: Order Date: 09/08/15Has pt arrived? [facility] Qfb[address]dwbij[address] [place], [address] Absolute Lymph 1.80 {X10_3/ul} (Normal) Range: 0.83-4.51 [...] 4.2-5.4 WBC 4.4 K/mm3 (Normal) Range: 4.4-11.0 7-Dbp-896776:40 Comprehensive Metabolic Profil Comments: Order Date: 09/08/15Has pt arrived? [facility] Zfgv[address]ouim[address] [place], [address] GAP -1 (Abnormal) Range: 5-15 CO2 30.0 [...] 7-18 GLU 97 mg/dL (Normal) Range: 70-110 1-Ldb-693082:16 Amylase Comments: [facility] Cqggsbjiju4760 [facility] [place], [address] PREMA 95 U/L (Normal) Range: 25-115 5-Hrx-572809:16 Lipase Comments: [facility] Tsxsvxccvj6546 [facility] [place], [address] LIPASE 568 U/L (Abnormal) Range: 73-393 1-Dcw-262817:29 Influenza A&B Viral Comments: PATIENT NOT FASTINGPERFORMED BY: [employer] [id number] Information: SRC:NOS [id number] Culture (71474) Viral Culture,Rapid,Influenza FLUABN (Normal) Comments: Negative:No Influenza A or B detected. 8-Qsz-987011:49 Rapid Flu (85314 x 2) Influenza A Ag neg (Normal) 21-Bil-707806:01 CBC (Auto) (17229) Comments: now and in six months (approximately); PATIENT WAS FASTINGPERFORMED BY: [employer] [id number] Information: [id number], [id number] Platelets 357 {x10E3/uL} (Normal) Range: 150-379 RDW 14.6 % (Normal) Range: 12.3-15.4 MCHC 34.1 g/dL (Normal) Range: 31.5-35.7 MCH 29.8 pg (Normal) Range: 26.6-33.0 MCV 88 fL (Normal) Range: 79-97 Hematocrit 37.0 % (Normal) Range: 34.0-46.6 Hemoglobin 12.6 g/dL (Normal) Range: 11.1-15.9 RBC 4.23 {x10E6/uL} (Normal) Range: 3.77-5.28 WBC 5.7 {x10E3/uL} (Normal) Range: 3.4-10.8 69-Ujt-609036:01 Metabolic Panel, Basic Comments: now; PATIENT WAS FASTINGPERFORMED BY: [employer] [place] [id number] (01606) Calcium, Serum 9.1 mg/dL (Normal) Range: 8.7-10.2 [...] Glucose, Serum 102 mg/dL (Abnormal) Range: 65-99 67-Sbj-558962:01 CALCIFIDIOL (58322) VIT D 25 Comments: now and in six months (approximately); PATIENT WAS FASTINGPERFORMED BY: [employer]iffynCoMilkPzfdob2608 [employer] [place] [id number] Vitamin D, 25-Hydroxy 32.8 ng/mL (Normal) Range: 30.0-100.0 Comments: Vitamin D deficiency has been defined by the [place] of[place]icine and an Endocrine Society practice guideline as alevel of serum 25-OH vitamin D less than 20 ng/mL (1,2).The Endocrine Society went on to further define vitamin Dinsufficiency as a level between 21 and 29 ng/mL (2).1. IOM ([place] of Medicine). 2010. Dietary reference intakes for calcium and D. [place]: The National Academies Press.2. Candelaria MF, Janey ELIAS, Yolande GROSS, et al. Evaluation, treatment, and prevention of vitamin D deficiency: an Endocrine Society clinical practice guideline. JCEM. 2010; 96(7):1911-30. 9-Zie-840740:06 Sputum Culture (65093) Comments: PATIENT NOT FASTINGPERFORMED BY: [facility] Pwihog2455 [facility] [id number] Information: [id number] Result 1 RRF (Normal) Comments: Routine respiratory rajwinder Lower Respiratory Culture Final report (Normal) 7-Hex-312989:12 Rapid Flu (40489 x 2) Influenza A Ag neg a and b (Normal) 76-Idl-896884:01 Urinalysis, Office (49665) UA - LEUKOCYTE ESTERASE Negative (Normal) UA - NITRITE Negative (Normal) URINE UROBILINGN YANCI TIMED Normal mg/dL (Normal) UA - PROTEIN Negative mg/dL (Normal) UA - PH 6.0 (Normal) Comments: 5.5 UA - BLOOD Negative (Normal) UA - SPECIFIC GRAVITY 1.025 (Normal) UA - KETONES Negative mg/dL (Normal) UA - BILIRUBIN Negative (Normal) UA - GLUCOSE Negative (Normal) 37-Dig-512223:40 Lipase (86888) Comments: PATIENT NOT FASTINGPERFORMED BY: [facility] Tecghj4512 [facility] [id number] Lipase, Serum 113 U/L (Abnormal) Range: 0-59 65-Rds-513010:40 Amylase (66470) Comments: PATIENT NOT FASTINGPERFORMED BY: [facility] Hcieic2284 [facility] [id number] Information: [id number] Amylase, Serum 104 U/L (Normal) Range: 31-124 9-Ztj-752617:54 Sputum Culture (89526) Comments: PATIENT NOT FASTINGPERFORMED BY: [facility] Jvynak1598 [facility] [id number] Information: SRC: THROAT [id number] Result 1 RRF (Normal) Comments: Routine respiratory rajwinder Lower Respiratory Culture Final report (Normal) 2-Ibb-864149:55 Pathology Report Comments: PERFORMED BY: KWCYT [facility] [place] [employer] Xotmc61927 [facility] [id number] BY: [facility] Dermatopathology Kaeoxmv[address] [id number] Information: [id number] See MATER Comments: Material submitted: .PUNCH BIOPSY [...] Dermatopatholog istGross description: .RECEIVED IN FORMALIN LABELED JOSEJ COBIAN WITH NO DESIGNATION ONTHE CONTAINER DESIGNATED [...] IS NEGATIVE FOR FUNGAL FORMS.Pathologist provided ICD-9:692.9CPT .051306, 733681 70-Qgb-384933:41 Lipid Panel (04833) Comments: PATIENT WAS FASTINGPERFORMED BY: [facility]CoRobert Wood Johnson University HospitalIygjds6710 [facility] [id number] LDL/HDL Ratio 1.0 {ratio_units} (Normal) Range: 0.0-3.2 [...] - 169 >19 years 100 - 199 51-Ofd-533276:41 Metabolic Panel, Comments: PATIENT WAS FASTINGPERFORMED BY: [facility]ica PharmaceuticalsMimbres Memorial HospitalZjqrnz6029 [facility] [id number] Information: [id number] [facility] (46316) ALT (SGPT) 13 [iU]/L (Normal) Range: 0-32 [...] Glucose, Serum 97 mg/dL (Normal) Range: 65-99 88-Xtk-529084:41 Vitamin B-12 (cyanocobalamin) Comments: PATIENT WAS FASTINGPERFORMED BY: [facility] PharmaceuticalsRobert Wood Johnson University HospitalTwiogb6058 [facility] [id number] (00102) Vitamin B12 632 pg/mL (Normal) Range: 211-946 89-Pen-952981:41 CBC (Auto) (87861) Comments: PATIENT WAS FASTINGPERFORMED BY: [employer] Zkrjvr3093 [facility] [id number] Platelets 270 {x10E3/uL} (Normal) Range: 150-379 RDW 13.9 % (Normal) Range: 12.3-15.4 MCHC 32.8 g/dL (Normal) Range: 31.5-35.7 MCH 29.5 pg (Normal) Range: 26.6-33.0 MCV 90 fL (Normal) Range: 79-97 Hematocrit 36.6 % (Normal) Range: 34.0-46.6 Hemoglobin 12.0 g/dL (Normal) Range: 11.1-15.9 RBC 4.07 {x10E6/uL} (Normal) Range: 3.77-5.28 WBC 8.5 {x10E3/uL} (Normal) Range: 3.4-10.8 :41 Ferritin (06792) Comments: PATIENT WAS FASTINGPERFORMED BY: [facility] Jtwica7836 [facility] [id number] Ferritin, Serum 28 ng/mL (Normal) Range: 15-150 :41 CALCIFIDIOL (57006) VIT D 25 Comments: PATIENT WAS FASTINGPERFORMED BY: [facility] Tgkyli1216 [facility] [id number] Vitamin D, 25-Hydroxy 24.3 ng/mL (Abnormal) Range: 30.0-100.0 Comments: Vitamin D deficiency has been defined by the [place] of[place]icine and an Endocrine Society practice guideline as alevel of serum 25-OH vitamin D less than 20 ng/mL (1,2).The Endocrine Society went on to further define vitamin Dinsufficiency as a level between 21 and 29 ng/mL (2).1. IOM ([place] of Medicine). 2010. Dietary reference intakes for calcium and D. [place]: The National Academies Press.2. Candelaria MF, Janey ELIAS, Yolande GROSS, et al. Evaluation, treatment, and prevention of vitamin D deficiency: an Endocrine Society clinical practice guideline. JCEM. 2010; 96(7):1911-30. :55 CBC-Complete Blood Cnt No Diff Comments: Test performed at:[facility] Z[address] [place] [address] MPV 9.5 fL (Normal) Range: 6.2-12.0 [...] 4.2-5.4 WBC 5.1 K/mm3 (Normal) Range: 4.4-11.0 57-Ckj-917892:55 Ferritin Comments: Test performed at:[facility] L[address]zimeonl[address] [place] [address] FERRITIN 23 ng/mL (Normal) Range: 8-252 23-Rbu-144918:55 Iron Comments: Test performed at:[facility] Wuv[address]jxs[address] [place] [address] IRON 75 ug/dL (Normal) Range: 50-170 32-Bdz-159179:53 CBC W/Diff, Automated Comments: Test performed at:[facility] Cwijlaztzc[address] [place] [address] Absolute Lymph 1.57 {X10_3/ul} (Normal) Range: 0.83-4.51 [...] 4.2-5.4 WBC 3.8 K/mm3 (Abnormal) Range: 4.4-11.0 26-Uim-743206:53 Comprehensive Metabolic Profil Comments: Test performed at:[facility] [address]pe[address]nxbq[address] [place], [place] [address] GAP 5 (Normal) Range: 5-15 CO2 29.0 [...] 7-18 GLU 99 mg/dL (Normal) Range: 70-110 29-Waj-100812:53 Ferritin Comments: Test performed at:[facility] Z[address] [place] [address] FERRITIN 13 ng/mL (Normal) Range: 8-252 98-Byf-147741:53 Lipid Profile Comments: Test performed at:[facility] X[address]wqdand[address] [place] [address] VLDL 19 mg/dL (Normal) Range: 5-40 [...] 200-240 mg/dL Borderline >240 mg/dL High Risk 60-Uih-769812:53 Vitamin B12 > 2000 pg/mL (Abnormal) Comments: Test performed at:[facility] W[address] [place] [address] Range: 211-911 18-Aby-362059:46 CBC W/Diff, Automated Comments: Test performed at:[facility] X[address]zrl[address] [place] [address] Absolute Lymph 1.87 {X10_3/ul} (Normal) Range: [...] 4.2-5.4 WBC 4.1 K/mm3 (Abnormal) Range: 4.4-11.0 76-Yfv-365735:46 Comprehensive Metabolic Profil Comments: Test performed at:[facility] Ohhjewtojl59[address] [place] [address] GAP 4 (Abnormal) Range: 5-15 CO2 28.0 [...] 7-18 GLU 70 mg/dL (Normal) Range: 70-110 07-Lig-455689:46 Vitamin D,25 Hydroxy Comments: Test performed at:[facility] Xntxtfdcvf95[address] [place] [address] Vitamin D 25-OH 30.6 ng/mL (Normal) Comments: Vitamin D 25(OH) Status Range Deficiency <20 ng/mL (50nmol/L) Insuffciency 20 - 30 ng/mL (50 - 75 nmol/L) Sufficiency 30 - 100 ng/mL (75 - 250 nmol/L) Toxicity >100 ng/mL (>250 nmol/L) 15-Frz-066452:04 CALCIFIDIOL (07373) VIT D Comments: PATIENT NOT FASTINGPERFORMED BY: [facility] Qyroff8615 [facility] [id number] Information: [id number] 25 Vitamin D, 25-Hydroxy 19.2 ng/mL (Abnormal) Range: 30.0-100.0 Comments: Vitamin D deficiency has been defined by the [place] of[place]icine and an Endocrine Society practice guideline as alevel of serum 25-OH vitamin D less than 20 ng/mL (1,2).The Endocrine Society went on to further define vitamin Dinsufficiency as a level between 21 and 29 ng/mL (2).1. IOM ([place] of [place]). 2010. Dietary reference intakes for calcium and D. [place]: The National Academies Press.2. Candelaria MF, Janey NC, Yolande GROSS, et al. Evaluation, treatment, and prevention of vitamin D deficiency: an Endocrine Society clinical practice guideline. JCEM. 2010; 96(7):1911-30. :04 Ferritin (73267) Comments: PATIENT NOT FASTINGPERFORMED BY: MONA Top[facility] PharmaceuticalsRobert Wood Johnson University HospitalPgpuep9076 [facility] [id number] Ferritin, Serum 34 ng/mL (Normal) Range: 15-150 :05 METABOLIC PANEL, COMPREHENSIVE Comments: PATIENT NOT FASTINGPERFORMED BY: [employer] PharmaceuticalsRobert Wood Johnson University HospitalKrusml0922 [facility] [id number] (77646) ALT (SGPT) 10 [iU]/L (Normal) Range: 0-32 [...] Glucose, Serum 86 mg/dL (Normal) Range: 65-99 48-Puq-924495:05 CBC WITH MANUAL DIFF Comments: PATIENT NOT FASTINGPERFORMED BY: [employer] Pharmaceuticalslin6370 [facility] [id number] Information: [id number],2ND ORDER NO DRAW F EE (56804) Immature Grans (Abs) 0.0 {x10E3/uL} (Normal) Range: [...] 3.77-5.28 WBC 5.2 {x10E3/uL} (Normal) Range: 3.4-10.8 20-Vun-199081:05 CALCIFIDIOL (85273) VIT D 25 Comments: PATIENT NOT FASTINGPERFORMED BY: [facility] TechnologiesMarlette Regional Hospital6370 [facility] [id number] Vitamin D, 25-Hydroxy 19.6 ng/mL (Abnormal) Range: 30.0-100.0 Comments: Vitamin D deficiency has been defined by the [place] of[place]icine and an Endocrine Society practice guideline as alevel of serum 25-OH vitamin D less than 20 ng/mL (1,2).The Endocrine Society went on to further define vitamin Dinsufficiency as a level between 21 and 29 ng/mL (2).1. IOM ([place] of [place]). 2010. Dietary reference intakes for calcium and D. [place]: The National AcademThe [employer] Press.2. Candelaria MF, Janey ELIAS, Yolande GROSS, et al. Evaluation, treatment, and prevention of vitamin D deficiency: an Endocrine Society clinical practice guideline. JCEM. 2010; 96():1911-30. : B12 446 pg/mL (Normal) Range: 211-911 [...] CHOL 168 mg/dL (Normal) Comments: <200 mg/dL Qvubrvsnu482-512 mg/dL Borderline>240 mg/dL High Risk 7-Txb-441179:51 VITD 38.8 mg/mL (Normal) Comments: Vitamin D 25(OH) Status RangeDeficiency <20 ng/mL (50nmol/L)Insuffciency 20 - 30 ng/mL (50 - 75 nmol/L)Sufficiency 30 - 100 ng/mL (75 - 250 nmol/L)Toxicity >100 ng/mL (>250 nmol/L) 37-Yfx-457676:07 Lipase (22996) Comments: PERFORMED BY: [employer] LoLo [facility] [id number] Lipase, Serum 67 U/L (Abnormal) Range: 0-59 78-Lfn-078625:07 Amylase (34764) Comments: PERFORMED BY: [employer] LoLo [facility] [id number] Amylase, Serum 92 U/L (Normal) Range: 31-124 80-Ljj-009673:11 Urinalysis, Office (45044) UA - LEUKOCYTE ESTERASE Negative (Normal) UA - NITRITE Negative (Normal) URINE UROBILINGN YANCI TIMED Normal mg/dL (Normal) UA - PROTEIN Negative mg/dL (Normal) UA - PH 5 (Abnormal) Comments: 5.5 UA - BLOOD Negative (Normal) UA - SPECIFIC GRAVITY 1.015 (Normal) UA - KETONES 15 mg/dL (Abnormal) UA - BILIRUBIN Small (Normal) UA - GLUCOSE Negative (Normal) 69-Gtm-954523:28 GRETTA CULTURE-OTHER (72224) Comments: PATIENT NOT FASTINGPERFORMED BY: [facility] LoLo [facility] [id number] Information: SRC:THRT [id number] Result 1 RRF (Normal) Comments: Routine respiratory rajwinder Upper Respiratory Culture Final report (Normal) 04-Lww-775391:32 Rapid Strep Test, Office (82676) Rapid Strep Test, Office Negative (Normal) 54-Kwe-316081:02 Iron Binding Capacity Comments: PATIENT NOT FASTINGPERFORMED BY: [facility] TechnologiesSaint [facility] LoLo [facility] [id number] Information: [id number] (TIBC) (82520) Iron Saturation 6 % (Abnormal) Range: 15-55 Iron, Serum 32 ug/dL (Abnormal) Range: 35-155 UIBC 461 ug/dL (Abnormal) Range: 150-375 Iron Bind.Cap.(TIBC) 493 ug/dL (Abnormal) Range: 250-450 :02 Ferritin (36763) Comments: PATIENT NOT FASTINGPERFORMED BY: LabCoRobert Wood Johnson University HospitalCvndji4206 [facility] [id number] Ferritin, Serum 7 ng/mL (Abnormal) Range: 15-150 [...] CHOL 181 mg/dL (Normal) Comments: <200 mg/dL Rspestggp594-512 mg/dL Borderline>240 mg/dL High Risk :19 VITD [...] 7-18 GLU 79 mg/dL (Normal) Range: 70-110 86-Bxs-770880:18 TS Ab SCREEN GEL NEGATIVE (Normal) SCREEN CELL I NEGATIVE (Normal) SCREEN CELL II NEGATIVE (Normal) SCREEN CELL III NEGATIVE (Normal) BLOOD TYPE GEL O POSITIVE (Normal) 51-Mnq-133271:17 Metabolic Panel, Comments: PATIENT NOT FASTINGPERFORMED BY: [facility] Wxeslb4662 [facility] [id number] Information: [id number] Comprehensive (90388) ALT (SGPT) 13 [iU]/L (Normal) Range: 0-32 [...] 4.2-5.4 WBC 5.0 K/mm3 (Normal) Range: 4.4-11.0 91-Ikp-775648:19 CMP GAP 9 (Normal) Range: 5-15 CO2 [...] s (Normal) Range: 11.9-14.4 :41 VIT D,25 37523 20.3 ng/mL (Abnormal) Range: 30.0-100.0 Comments: Vitamin D deficiency has been defined by the [place] of[place]icine and an Endocrine Society practice guideline as alevel of serum 25-OH vitamin D less than 20 ng/mL (1,2).The Endocrine Society went on to further define vitamin Dinsufficiency as a level between 21 and 29 ng/mL (2).1. IOM ([place] of [place]). 2010. Dietary reference intakes for calcium and D. [place]: The National Academies Press.2. Candelaria MF, Janey NC, Yolande GROSS, et al. Evaluation, treatment, and prevention of vitamin D deficiency: an Endocrine Society clinical practice guideline. JCEM. 2010; 96(7): 1911-30.Performed at: - [employer] [id number] Director: Yony San MD, Phone: [phone] at: [facility] [employer] [id number] Director: Era Tinoco MD, Phone: [phone] VITD 1,25 20401 44.5 pg/mL (Normal) Range: 10.0-75.0 :09 PREMA [...] 4.2-5.4 WBC 6.2 K/mm3 (Normal) Range: 4.4-11.0 2-Hmy-072355:09 COMP METABOLIC GAP 11 (Normal) Range: 5-15 [...] :09 FERRITIN 18 ng/mL (Normal) Range: 8-252 3-Abn-938954:09 LIPASE 280 U/L (Normal) Range: 70-290 Comments: Please note:LIPASE revised reference range effective 09. 40-Jku-404271:05 LIPID Comments: COMMENTS: FAX RESULTS TO DR [...] 200-240 mg/dL Borderline >240 mg/dL High Risk 02-Emk-123910:54 BILAT SCRN DIGITAL & CAD Radiology Report [...] 11/20/10 0112 Sign by: Bartolome Patel MD 15-Upb-261634:54 DEXA BONE DENSITY STUDY (HP) Radiology Report See Note (Normal) Comments: CLINICAL:Female, 55 years old. The patient is postmenopausal. EXAMINATION:DUAL ENERGY X-RAY ABSORPTIOMETRY / DEXA. TECHNIQUE:Bone Mineral Density (BMD) measurements of lumbar spine and bila teralhipswer e obtained using a [employer] scanner.. COMPARISON:Comparison is made with prior study [...] on 11/20/1030 Sign by: Bartolome Patel MD 1-Gie-987108:46 DESIRAE DIR SEMI-QL Comments: ORDERED CBC LUZ MARINA FEDRCOREY ORDERED CMP CBCD CRP ESR VITD HEPB SURF AB CCPHEPB IRINA AG HEPC DESIRAE RA HEPB CORE IGM UAC SCL70 ANTOINE ANTI JOANTICENT AB SSA SSB DNA UAPROTEIN C3 C4 TSH DESIRAE DIRECT 56 AU/mL (Normal) 0-Goz-702527:46 ANEX PANEL Comments: ORDERED CBC LUZ MARINA FEDRCOREY ORDERED CMP CBCD CRP ESR VITD HEPB SURF AB CCPHEPB IRINA AG HEPC DESIRAE RA HEPB CORE IGM UAC SCL70 ANTOINE ANTI JOANTICENT AB SSA SSB DNA UAPROTEIN C3 C4 TSH; appt 11/02/10 [employer] AB 14 AU/mL (Normal) ANTI-TORRES AB 7 AU/mL (Normal) :46 ANTI JO1 Comments: ORDERED CBC LUZ MARINA FEDRCOREY ORDERED CMP CBCD CRP ESR VITD HEPB SURF AB CCPHEPB IRINA AG HEPC DESIRAE RA HEPB CORE IGM UAC SCL70 ANTOINE ANTI JOANTICENT AB SSA SSB DNA UAPROTEIN C3 C4 TSH ANTI LAMAR 7 AU/mL (Normal) 3-Ylm-299040:46 ANTI SCL 70 Comments: ORDERED CBC LUZ MARINA FEDRCOREY ORDERED CMP CBCD CRP ESR VITD HEPB SURF AB CCPHEPB IRINA AG HEPC DESIRAE RA HEPB CORE IGM UAC SCL70 ANTOINE ANTI JOANTICENT AB SSA SSB DNA UAPROTEIN C3 C4 TSH ANTI-SCL 70 14 AU/mL (Normal) [id number] ANTI-CCP [id number] < 1 {units} (Normal) Comments: ORDERED CBC [...] 0.6-1.0 GLU 91 mg/dL (Normal) Range: 70-110 [id number] ESR Comments: ORDERED CBC LUZ MARINA RODRIGUEZ [...] C4 TSH Range: 8-252 :46 HB CORE [id number] SeeNote (Normal) Comments: ORDERED CBC LUZ MARINA MICHAEL ORDERED CMP CBCD CRP ESR VITD HEPB SURF AB CCPHEPB IRINA AG HEPC DESIRAE RA HEPB CORE IGM UAC SCL70 ANTOINE ANTI JOANTICENT AB SSA SSB DNA UAPROTEIN C3 C4 TSH Comments: Result: Negative Performed at: - [facility] [address] [id number] Director: Era Tinoco MD, Phone: [phone] at: - [facility] [address] [id number] Director: Yony San MD, Phone: [phone] :[phone] HBsAg 6510 Comments: ORDERED CBC LUZ [...] of antibody present. :46 HEP C AB 644614 <0.1 (Normal) Comments: ORDERED CBC LUZ MARINA [...] C4 TSH Range: 0.358-3.74 :46 VIT D,25 82076 9.3 ng/mL (Abnormal) Comments: ORDERED CBC LUZ MARINA FEDRCOREY ORDERED CMP CBCD CRP ESR VITD HEPB SURF AB CCPHEPB IRINA AG HEPC DESIRAE RA HEPB CORE IGM UAC SCL70 NATOINE ANTI JOANTICENT AB SSA SSB DNA UAPROTEIN C3 C4 TSH Range: 32.0-100.0 Comments: Recent studies consider the lower limit of 32.0 ng/mL to jayleen threshold for optimal health.Ortiz SANCHEZ. J Nutr. 2004;135(2):317-22. 47-Onb-738523:10 CBC Comments: COMMENTS: FAX RESULTS TO DR. [...] 4.2-5.4 WBC 9.8 K/mm3 (Normal) Range: 4.4-11.0 76-Ylm-604997:10 FERRITIN 21 ng/mL (Normal) Comments: COMMENTS: FAX RESULTS TO DR. CECI NUNORESULTS FAXED 07/17/10 131VLADIMIR MAKI. Range: 8-252 42-Bjs-067172:10 IRON 125 ug/dL (Normal) Comments: COMMENTS: FAX RESULTS TO DR. CECI FARIAS DRAWRESULTS FAXED 07/17/10 131VLADIMIR MAKI. Range: 50-170 77-Azx-874655:20 CBC With Differential/Platelet Comments: [facility]: [facility] [id number] Baso (Absolute) 0.0 {x10E3/uL} (Normal) Range: 0.0-0.2 [...] 11.7-15.0 WBC 5.3 {x10E3/uL} (Normal) Range: 4.0-10.5 99-Wpi-081002:20 Comp. Metabolic Panel (14) Comments: PERFORMED BY: [facility]6[address] [facility] [id number] ALT (SGPT) 18 [iU]/L (Normal) Range: 0-40 [...] Serum 14 ng/mL (Normal) Comments: PERFORMED BY: [employer]6[facility] [id number] 14:20 Range: 13-150 97-Izr-034324:20 Iron and TIBC Comments: PERFORMED BY: [employer] [facility] [id number] Iron Saturation 23 % (Normal) Range: 15-55 Iron, Serum 106 ug/dL (Normal) Range: 35-155 UIBC 361 ug/dL (Normal) Range: 150-375 Iron Bind.Cap.(TIBC) 467 ug/dL Range: 250-450 (Abnormal) TSH 1.760 {uIU/mL} Comments: PERFORMED BY: [employer] [facility] [id number] :20 (Normal) Range: 0.450-4.500 C DIF TOXIN/AG See Note (Normal) Comments: PT COLLECTED SPECIMEN 12/30 @2300 :45 Comments: C. DIFF ANTIGENS NEGATIVE :45 CUL STOOL/SHIG Comments: PT COLLECTED SPECIMEN 12/30 @2300 CULTURE, STOOL See Note (Normal) Comments: [facility] No Salmonella, Shigella or Yersinia isolated.No significant [...] Crytosporidium parvum,Cyclospora, or Microsporidia.__ TESTING PERFORMED AT [facility]. ORIGINAL REPORT ONFILE IN LAB CONTAINS ADDITIONAL [...] Please note:LIPASE revised reference range effective 09. 28-Pxv-755123:10 RENAL Comments: COMMENTS: IV THERAPY DRAWING CO2 [...] (Normal) GLU 102 mg/dL (Normal) Range: 70-110 06-Glr-437351:37 OCCULT BLOOD FECES SCREEN (25071) OCCULT BLOOD FECES SCREEN negative (Normal) 86-Dvd-111947:03 CBCD,SMEAR DIFF PLT EST SeeNote (Normal) Comments: [...] 6.4-8.2 GLU 94 mg/dL (Normal) Range: 70-110 99-Aam-460647:03 FERRITIN 12 ng/mL (Normal) Range: 8-252 :03 IRON 128 ug/dL (Normal) Range: 50-170 95-Bnw-388599:03 LIPID LDL 86 mg/dL (Normal) Range: 0-130 VLDL 18 mg/dL (Normal) Range: 5-40 HDL 79 mg/dL (Normal) Comments: Reference RangeHDL <40 mg/dL Low HDL CholesterolHDL >or= 60 mg/dL High HDL Cholesterol CHOL 183 mg/dL (Normal) Comments: <200 mg/dL Aihsjhakr188-465 mg/dL Borderline>240 mg/dL High Risk TRIG 88 mg/dL (Normal) Comments: Serum Triglycerides Reference IntervalNormal <150 mg/dLBorderline high 150 - 199 mg/dLHigh 200 - 499 mg/ dLVery High > or = 500 mg/dL 36-Qkd-358620:03 VITAMIN B12 342 pg/mL (Normal) Range: 254-1320 10-Apr-20090:00 FLU A+B DIRECT See Note (Normal) Comments: Negative test results should be confirmed by culture. Order Rapid Viral Culture for Influenzae A+B ([id number]) if clinically indicated. INFLUENZA ANTIGEN,DIRECT Presumptive NEGATIVE for Influenza A/B Antigen (See Note) 59-Pzh-302419:43 CHEST, PA AND LATERAL Radiology Report See Note (Normal) Comments: Exam Number: [id number] CLINICAL DATAInterstitial lung disease, cough. CHEST PA [...] pneumonia. Possible bronchitis. Reported By: FLORINDA CAMPOS 27-Lrx-159864:45 L/S SPINE,MIN 4 VIEWS Radiology Report See Note (Normal) Comments: Exam Number: [id number] CLINICAL PROBLEMLow back pain post fall. LUMBAR [...] and spondylosis. Reported By: AROLDO TILLMAN M.D. 33-Ydn-863855:44 KNEE,4 OR MORE VIEWS Radiology Report See Note (Normal) Comments: Exam Number: [id number] CLINICAL PROBLEMPain both knees post fall. FOUR [...] patellofemoral compartments. Reported By: AROLDO TILLMAN M.D. 38-Fbv-669992:44 KNEE,4 OR MORE VIEWS Radiology Report See Note (Normal) Comments: Exam Number: [id number] CLINICAL PROBLEMLeft knee pain status post fall. [...] Order Rapid Viral Culture for Influenzae A+B ([id number]) if clinically indicated. INFLUENZA ANTIGEN,DIRECT Presumptive NEGATIVE for Influenza A/B Antigen (See Note) 12-Sep-2008 PREMA 66 U/L (Normal) Range: 25-115 12:11 98-Jjv-458576:11 CBCD BASO% 0.2 % (Normal) Range: 0-1 [...] 4.2-5.4 WBC 4.2 K/mm3 (Abnormal) Range: 4.4-11.0 46-Rsp-748986:11 COMP METABOLIC A/G 1.2 {RATIO} (Normal) Range: [...] T PROT 6.9 g/dL (Normal) Range: 6.4-8.2 74-Ydw-009105:11 ESR SED RATE 3 mm/h (Normal) Range: 0-30 41-Pty-520133:11 LIPASE 229 U/L (Normal) Range: 114-286 :11 [...] T PROT 6.7 g/dL (Normal) Range: 6.4-8.2 38-Tji-059052:00 METHYLM 276977 330 nmol/L (Normal) Range: 73-376 Comments: The reference range for methylmalonic acid has been set at+3sd above the mean for healthy blood bank donors. In theclinical assessment of patients with megaloblastic anemiasa cutoff of +3sd provides gre ater specificity in thediagnosis of the vitamin deficiency states, despite thesacrifice of some sensitivity.Performed At: [address] [id number] 7-Oje-752985:55 Lower Respiratory Culture Comments: Clinical Information: SRC:SP PERFORMED BY: [facility] [id number] Lower Respiratory Culture Final report (Normal) Result 1 RRF (Normal) Comments: Routine respiratory rajwinder :3 PREMA 62 U/L (Normal) Range: 25-115 6 33-Huo-32929:36 DESIRAE-D 035363 DESIRAE-DIRECT 23 AU/mL (Normal) Range: 0-99 Comments: [...] {IU/mL} (Normal) Range: 0.0-13.9 Comments: Performed At: [address] [id number] :[id number] TSH 1.76 {uIU/mL} (Normal) Range: 0.34-4.82 :29 HgA1C , Office (12277) HgA1C , Office 5.5 % (Normal) Range: 4.6 - 7.1 :29 Blood Glucose , Office (45768) Blood Glucose , Office 108 (Normal) :51 CHEST, PA AND LATERAL Radiology Report See Note (Normal) Comments: Exam Number: [id number] PA AND LATERAL CHEST HISTORY Being done [...] By: JERARDO BEAULIEU M.D. :57 Rapid Flu (31602 x 2) INFLUENZA IMMUNOASSY DIRECT OPTICAL OBSERV negative (Normal) Comments: aw 56-Ybq-850216:57 LIPID CHOL 186 mg/dL (Normal) Comments: <200 [...] pg/mL (Normal) Range: 211-911 :57 VITD 1,25 46756 69.6 (Normal) Comments: Performed At: [address] [id number] 65-Snd-780425:47 CHEST, PA AND LATERAL Radiology Report See Note (Normal) Comments: Exam Number: [id number] PA AND LATERAL CHEST HISTORY Being done [...] perihilar infiltrate. Reported By: JERARDO BEAULIEU M.D. 67-Mac-473064:08 Upper Respiratory Culture Comments: Clinical Information: SRC:TH PERFORMED BY: [facility] [facility] [id number] Result 1 RRF (Normal) Comments: Routine respiratory rajwinder Upper Respiratory Culture Final report (Normal) 2-Fxt-924680:39 CHEST WITHOUT CONTRAST Radiology Report See Note (Normal) Comments: Exam Number: [id number] CT SCAN OF CHEST HISTORYNeoplasm of uncertain [...] PREMA 73 U/L (Normal) Range: 25-115 :01 77-Mij-548525:01 CBCD BASO% 0.3 % (Normal) Range: 0-1 [...] 11.6-14.6 WBC 4.7 K/mm3 (Normal) Range: 4.4-11.0 98-Mke-581041:01 COMP METABOLIC A/G 1.1 {RATIO} (Normal) Range: [...] mg/dL VLDL 15 mg/dL (Normal) Range: 5-40 23-Fbc-794846:40 BC No growth in 5 days. Comments: COMMENTS: ROOM 12 (Normal) 41-Yyl-363051:20 COMPLETE UA Comments: COMMENTS: ROOM 12HOLD IN [...] WBC 0 SEEN {/hpf} (Normal) Range: 0-5 97-Ggj-036389:10 BMP Comments: COMMENTS: ROOM 12 BUN 8 [...] 3.5-5.1 NA 132 mmol/L (Abnormal) Range: 136-145 88-Aqv-615191:10 CBCD Comments: COMMENTS: ROOM 12 BASO% 0.2 [...] (Normal) WBC 10.6 K/mm3 (Normal) Range: 4.4-11.0 56-Keh-152709:10 LIPASE 212 U/L (Normal) Comments: COMMENTS: ROOM 12 Range: 114-286 36-Yga-752592:10 LIVER Comments: COMMENTS: ROOM 12 ALB 3.4 [...] 29 [iU]/L (Abnormal) Range: 30-65 :07 DESIRAE-D 767528 DESIRAE-DIRECT 24 U/mL (Normal) Range: 0-99 Comments: Negative <100 Equivocal 100 - 120 Positive >120Performed At: [facility] [address] [place], [place] [id number] At: [facility] [address] [id number] :[id number] See Note (Normal) Comments: CHECK BLOOD [...] 5.8 K/mm3 (Normal) Range: 4.4-11.0 :07 HISTOPL 473975 SeeNote (Normal) Comments: Result: Negative :07 RA LATEX 6502 8.6 {IU/mL} (Normal) Range: 0.0-13.9 :24 CHEST, PA AND LATERAL Radiology Report See Note (Normal) Comments: Exam Number: [id number] CHEST, PA AND LATERAL HISTORYFever and cough. COMPARISONNone. FINDINGSThere is an indwelling Xqwo-V-Jxprspqc on the right side particularlyin the SVC. The heart, aorta, and media stinum are normal. Lungs areclear. There is no evidence of consolidation, effusion, congestion,or nodules. There are clips in the region of the esophageal hiatus. IMPRESSIONClear lungs. Reported By: AN YOUNG M.D. 11-Yxd-492208:0 BC No growth in 5 days. 0 [...] mm/h (Normal) Range: 0-30 :02 Urinalysis, Office (69175) Comments: ABn signed CH UA - BILIRUBIN [...] :19 LIPASE 212 U/L (Normal) Range: 114-286 4-Oeg-949480:19 VIT B12 1503 147 pg/mL (Abnormal) Range: 211-911 Comments: Performed At: [address] [id number] 5-Npp-718469:00 CULTURE, THROAT See Note (Normal) Comments: Normal throat rajwinder isolated. No beta-hemolyticstreptococcus isolated. 2-Ybj-426389:52 Urinalysis, Office (17507) UA - BILIRUBIN Negative (Normal) UA - [...] and of unspecified site Planned Observations LIPASE (52494)Indication: Chronic pancreatitis On: 85-Vum-825830:51 Request AMYLASE (38220)Indication: Chronic pancreatitis On: 33-Zxn-249251:50 Request URINALYSIS (09509)Indication: Chronic pancreatitis On: :50 Request CBC WITH MANUAL DIFF (89139)Indication: Chronic pancreatitis On: 33-Ieh-965493:50 Request Metabolic Panel, Comprehensive (02075)Indication: Chronic pancreatitis On: 18-Mkh-157497:50 Request PT (PROTHROMBIN TIME) (78073)Indication: PFO (patent foramen ovale) On: 57-Wzd-537142:36 Request Vitamin B-12 (cyanocobalamin) (09915)Indication: S/P gastric bypass On: 9-Ked-330755:21 Request Ferritin (16961)Indication: Iron deficiency anemia due to dietary causes On: 0-Yar-801001:21 Request CBC, Platelets & Auto Diff (84775)Indication: Chronic pancreatitis On: :21 Request Metabolic Panel, Comprehensive (68682)Indication: Chronic pancreatitis On: 0-Xuk-507205:21 Request CALCIFIDIOL (24706) VIT D 25Indication: Vitamin D deficiency, unspecified On: 19-Eyp-50472:55 Request Comments: re check in 8 weeks Sed Rate Erythrocyte (60713)Indication: Fever On: 47-Ssa-763054:39 Request URINALYSIS (58325)Indication: Fever On: :33 Request URINE GRETTA CULTURE-IDENTIFICATN (61432)Indication: Fever On: :33 Request CALCIFIDIOL (22790) VIT D 25Indication: Vitamin D deficiency, unspecified On: :32 Request CBC, Platelets & Auto Diff (45675)Indication: Iron deficiency anemia due to dietary causes On: :32 Request Ferritin (57774)Indication: Iron deficiency anemia due to dietary causes On: 29-Sus-700057:32 Request GRETTA CULTURE-BLOOD (23743)Indication: Fever On: 83-Qzk-372853:30 Request Comments: ONE FROM PORT AND ONE PERIPHERAL CALCIFIDIOL (26215) VIT D 25Indication: Vitamin D deficiency, unspecified On: 54-Vnl-720869:24 Request FERRITIN (17703)Indication: Iron deficiency anemia due to dietary causes On: 88-Aui-553987:22 Request EBV ANTIBODY VCA/EA 02782 (65722)Indication: Fatigue On: 31-Kfk-801746:31 Request Comments: please do VCA IGM Ferritin (12088)Indication: Iron deficiency anemia due to dietary causes On: 84-Spd-129022:00 Request CALCIFIDIOL (35990) VIT D 25Indication: Vitamin D deficiency, unspecified On: 40-Aqy-827728:00 Request EBV Panel (32321)Indication: Pharyngitis, acute On: 83-Hgf-934359:58 Request Influenza A&B Viral Culture (57383)Indication: Fever On: 4-Gyj-847056:34 Request GRETTA CULTURE-OTHER (63830)Indication: Fever On: :33 Request Rapid Strep Test, Office (78609)Indication: Fever On: :18 Request Troponin I (59813)Indication: Chest pain at rest On: :43 Request Comments: pls add to labs already done MYOGLOBIN (20153)Indication: Chest pain at rest On: : Request CPK MB FRACTION (71361)Indication: Chest pain at rest On: : Request Sed Rate Erythrocyte (57199)Indication: Chest pain at rest On: : Request CBC WITH MANUAL DIFF (75900)Indication: Chest pain at rest On: Request CALCIFEDIOL (45717)Indication: OTHER AND UNSPECIFIED POSTSURGICAL NONABSORPTION On: :12 Request PARATHORMONE (04844)Indication: OTHER AND UNSPECIFIED POSTSURGICAL NONABSORPTION On: : Request Magnesium (86960)Indication: OTHER AND UNSPECIFIED POSTSURGICAL NONABSORPTION On: : Request Phosphorus (52494)Indication: OTHER AND UNSPECIFIED POSTSURGICAL NONABSORPTION On: : Request IRON (47025)Indication: OTHER AND UNSPECIFIED POSTSURGICAL NONABSORPTION On: : Request FERRITIN (78473)Indication: OTHER AND UNSPECIFIED POSTSURGICAL NONABSORPTION On: :12 Request ZINC, BLOOD (37130)Indication: OTHER AND UNSPECIFIED POSTSURGICAL NONABSORPTION On: : Request VITAMIN A (80001)Indication: OTHER AND UNSPECIFIED POSTSURGICAL NONABSORPTION On: : Request TSH (10967)Indication: OTHER AND UNSPECIFIED POSTSURGICAL NONABSORPTION On: : Request MAGNESIUM (80688)Indication: OTHER AND UNSPECIFIED POSTSURGICAL NONABSORPTION On: : Request Folic Acid Serum (97905)Indication: OTHER AND UNSPECIFIED POSTSURGICAL NONABSORPTION On: : Request CHROMIUM (00851)Indication: OTHER AND UNSPECIFIED POSTSURGICAL NONABSORPTION On: :12 Request ASSAY, HOMOCYSTINE (06200)Indication: OTHER AND UNSPECIFIED POSTSURGICAL NONABSORPTION On: :12 Request Metabolic Panel, Basic (45378)Indication: Abdominal pain On: 36-Muj-853349:11 Request Comments: do on this tuesday OSMOLALITY URINE (89289)Indication: Abdominal pain On: :11 Request Comments: today in ambulatory OSMOLALITY BLOOD (97058)Indication: Abdominal pain On: :11 Request Comments: today in ambulatory Lipase (43932)Indication: Abdominal pain On: :11 Request Comments: today in ambulatory Amylase (22878)Indication: Abdominal pain On: :11 Request Comments: today in ambulatory CBC, Platelets & Auto Diff (62720)Indication: Abdominal pain On: :11 Request Comments: today in ambulatory Metabolic Panel, Comprehensive (16162)Indication: Abdominal pain On: :10 Request Comments: today in ambulatory AMYLASE (69160)Indication: Abdominal pain On: 3-Ekk-170361:12 Request LIPASE (17035)Indication: Abdominal pain On: 3-Ibz-551261:12 Request Ferritin (65665)Indication: Iron deficiency anemia due to dietary causes On: :20 Request Comments: in six months (approximately) Vitamin B-12 (cyanocobalamin) (68723)Indication: Other vitamin B12 deficiency anemia On: :19 Request Comments: in six months (approximately) Lipid Panel (94910)Indication: High blood triglycerides On: :19 Request Comments: in six months (approximately) Metabolic Panel, Comprehensive (36695)Indication: Chronic pancreatitis On: :19 Request Comments: in six months (approximately) Vitamin B-12 (cyanocobalamin) (84141)Indication: Other vitamin B12 deficiency anemia On: :27 Request METABOLIC PANEL, COMPREHENSIVE (03468)Indication: High blood triglycerides On: :19 Request LIPID PANEL (80373)Indication: High blood triglycerides On: :19 Request CBC, Platelets & Auto Diff (50668)Indication: Iron deficiency anemia due to dietary causes On: 91-Vfv-995988:15 Request Ferritin (02003)Indication: Iron deficiency anemia due to dietary causes On: 07-Nel-747416:15 Request Iron (89554)Indication: Iron deficiency anemia due to dietary causes On: :29 Request Comments: recheck in 4 weeks pt needs to be fasting Iron Binding Capacity (TIBC) (89772)Indication: Iron deficiency anemia due to dietary causes On: :29 Request Comments: recheck in 4 weeks pt needs to be fasting Ferritin (19202)Indication: Iron deficiency anemia due to dietary causes On: :28 Request Comments: recheck in 4 weeks pt needs to be fasting METABOLIC PANEL, COMPREHENSIVE (98515)Indication: High blood triglycerides On: :33 Request LIPID PANEL (35549)Indication: High blood triglycerides On: 55-Vja-426649:33 Request CBC (Auto) (68476)Indication: Iron deficiency anemia due to dietary causes On: 44-Nog-667373:33 Request Ferritin (06753)Indication: Iron deficiency anemia due to dietary causes On: 83-Whi-316776:33 Request Vitamin B-12 (cyanocobalamin) (92465)Indication: Other vitamin B12 deficiency anemia On: 75-Vbl-422708:32 Request CALCIFIDIOL (77612) VIT D 25Indication: Vitamin D deficiency, unspecified On: 38-Rxm-022254:32 Request CULTURE, SPUTUM (09740)Indication: Cough On: 6-Pyv-956998:36 Request Iron (94213)Indication: Iron deficiency anemia due to dietary causes On: 88-Kze-183843:53 Request CALCIFIDIOL (37443) VIT D 25Indication: Vitamin D deficiency, unspecified On: 73-Oja-894662:02 Request CBC (Auto) (02607)Indication: Iron deficiency anemia due to dietary causes On: 3-Aaw-525297:49 Request Metabolic Panel, Comprehensive (97687)Indication: Chronic pancreatitis On: 5-Sdb-474979:49 Request Lipid Panel (21560)Indication: High blood triglycerides On: 8-Nsv-421238:49 Request Ferritin (71877)Indication: Iron deficiency anemia due to dietary causes On: 9-Qau-133617:48 Request CALCIFEDIOL (17772)Indication: Vitamin D deficiency, unspecified On: :48 Request Vitamin B-12 (cyanocobalamin) (22153)Indication: Other vitamin B12 deficiency anemia On: 5-Rmx-828971:47 Request Lipase (66183)Indication: Chronic pancreatitis On: :47 Request Amylase (70689)Indication: Chronic pancreatitis On: :47 Request D-Dimer (27537)Indication: Anemia On: 16-Fmj-464902:28 Request Comments: stat Metabolic Panel, Comprehensive (74189)Indication: Anemia On: :16 Request TYPE & SCREEN GEL (47157)Indication: Anemia On: :16 Request CBC with manual diff (43505)Indication: Anemia On: :15 Request Lipase (23900)Indication: Chronic pancreatitis On: :30 Request Amylase (92338)Indication: Chronic pancreatitis On: 67-Urf-086553:30 Request Ferritin (53101)Indication: Iron deficiency anemia due to dietary causes On: 61-Ypc-477254:28 Request LIPASE (93823)Indication: Chronic pancreatitis On: 5-Atf-672069:21 Request AMYLASE (28180)Indication: Chronic pancreatitis On: 2-Ptm-057766:21 Request Lipase (35321)Indication: Chronic pancreatitis On: 48-Pve-519980:12 Request Amylase (05040)Indication: Chronic pancreatitis On: 32-Wwl-145727:12 Request MICROALBUMIN: CREATININE RATIO (83744) AND (17478)Indication: Chronic pancreatitis On: 47-Avm-092039:12 Request METABOLIC PANEL, COMPREHENSIVE (88767)Indication: Chronic pancreatitis On: 91-Ymm-155042:12 Request LIPID PANEL (43761)Indication: High blood triglycerides On: 58-Bmv-086235:12 Request CBC WITH MANUAL DIFF (67384)Indication: Chronic pancreatitis On: 13-Zau-868348:12 Request Metabolic Panel, Comprehensive (70751)Indication: Chronic pancreatitis On: 5-Cfo-944217:46 Request Lipase (69144)Indication: Chronic pancreatitis On: 9-Ejy-606291:46 Request Amylase (71350)Indication: Chronic pancreatitis On: 7-Flz-179691:46 Request CALCIFIDIOL (48575) VIT D 25Indication: Vitamin D deficiency, unspecified On: :43 Request Ferritin (37809)Indication: Iron deficiency anemia due to dietary causes On: :43 Request CBC (Auto) (80749)Indication: Iron deficiency anemia due to dietary causes On: :43 Request PT (Prothrobim Time) (24645)Indication: AFTERCARE, LONG-TERM USE, ANTICOAGULANTS On: :28 Request Lipase (20155)Indication: Chronic pancreatitis On: : Request Amylase (29438)Indication: Chronic pancreatitis On: : Request Metabolic Panel, Comprehensive (77252)Indication: Chronic pancreatitis On: : Request CBC (Auto) (15615)Indication: Leukopenia On: :25 Request Lipid Panel (81513)Indication: High blood triglycerides On: :25 Request Iron (18512)Indication: Iron deficiency anemia due to dietary causes On: :23 Request Ferritin (09786)Indication: Iron deficiency anemia due to dietary causes On: :23 Request Vitamin B-12 (cyanocobalamin) (81171)Indication: Other vitamin B12 deficiency anemia On: :23 Request CALCIFIDIOL (15948) VIT D 25Indication: Vitamin D deficiency, unspecified On: 7-Ubb-200093:23 Request Lipase (29932)Indication: Chronic pancreatitis On: :21 Request Amylase (63396)Indication: Chronic pancreatitis On: 8-Mtj-866549:21 Request Comments: pls add to labs already drawn Metabolic Panel, Comprehensive (77234)Indication: Chronic pancreatitis On: : Request Ferritin (80819)Indication: Iron deficiency anemia due to dietary causes On: 7-Xgq-370246: Request CBC (Auto) (88311)Indication: Chronic pancreatitis On: 2-Smw-379007:07 Request LIPID PANEL (99601)Indication: High blood triglycerides On: 5-Eip-139067:15 Request Iron Binding Capacity (TIBC) (63707)Indication: Anemia On: :53 Request Iron (27587)Indication: Anemia On: 21-Cye-468065:53 Request Ferritin (78184)Indication: Anemia On: :53 Request CBC (Auto) (69492)Indication: Anemia On: :53 Request Metabolic Panel, Comprehensive (34006)Indication: Chronic pancreatitis On: :53 Request OVA & PARASITE DIR SMEAR (13031)Indication: Diarrhea On: :37 Request LEUKOCYTE COUNT, FECAL (08626)Indication: Diarrhea On: :37 Request C.Difficile, Stool (12954)Indication: Diarrhea On: :37 Request GRETTA CULTURE-STOOL (55176)Indication: Diarrhea On: :37 Request Vitamin B-12 (cyanocobalamin) (60864)Indication: Other vitamin B12 deficiency anemia On: 23-Qcg-700429:05 Request Iron (25141)Indication: Anemia On: 79-Cqw-143535:05 Request Ferritin (51906)Indication: Anemia On: 75-Xss-006787:05 Request METABOLIC PANEL, COMPREHENSIVE (32673)Indication: High blood triglycerides On: :05 Request CBC WITH MANUAL DIFF (71555)Indication: Anemia On: 98-Nvq-406858:05 Request LIPID PANEL (65362)Indication: High blood triglycerides On: 02-Pdc-432811:04 Request nasal influenza swab (93011) T4Sxtdzaeimo: Unspecified Diagnosis On: 3-Nzn-762412:29 Request Rapid Flu (29191 x 2)Indication: Fever On: 1-Esx-285090:44 Request Lipid Panel (03617)Indication: High blood triglycerides On: 65-Zqd-749073:53 Request CBC (Auto) (92641)Indication: Chronic pancreatitis On: 23-Aif-109011:51 Request Metabolic Panel, Comprehensive (88483)Indication: Chronic pancreatitis On: 20-Lcq-368686:51 Request Ferritin (81009)Indication: Anemia On: 44-Pir-131736:51 Request Iron (58865)Indication: Anemia On: 17-Tqz-128923:51 Request Vitamin B-12 (cyanocobalamin) (00779)Indication: Other vitamin B12 deficiency anemia On: 71-Nzf-099647:51 Request Lipid Panel (53693)Indication: Malabsorption syndrome On: 59-Byd-732050:39 Request Sed Rate Erythrocyte (85791)Indication: Chronic pancreatitis On: :35 Request CBC, Platelets & Auto Diff (12095)Indication: Chronic pancreatitis On: :35 Request Magnesium (18799)Indication: Chronic pancreatitis On: :35 Request Lipase (22445)Indication: Chronic pancreatitis On: :35 Request Amylase (18150)Indication: Chronic pancreatitis On: :35 Request Metabolic Panel, Comprehensive (13215)Indication: Chronic pancreatitis On: :35 Request CBC (Auto) (79883)Indication: Abdominal pain, acute, generalized On: 38-Eru-108031:29 Request Metabolic Panel, Comprehensive (08309)Indication: Abdominal pain, acute, generalized On: 15-Hjd-016714:29 Request Methylmalonic acid, serum 32042Pilxgbspqr: Other vitamin B12 deficiency anemia On: 44-Tzn-432777:29 Request CULTURE, SPUTUM (88475)Indication: Cough On: 6-Kfh-084555:42 Request Lipase (35634)Indication: Acute pancreatitis On: 4-Lxe-845847:59 Request Amylase (91536)Indication: Acute pancreatitis On: 8-Vyu-944942:59 Request DESIRAE (ANTINUCLEAR ANTIBODY) (55089)Indication: Pain in unspecified joint On: 8-Jnx-356478:48 Request C-REACTIVE PROTEIN (89597)Indication: Pain in unspecified joint On: 3-Qwq-205391:48 Request CBC WITH MANUAL DIFF (06045)Indication: Pain in unspecified joint On: 4-Uou-146889:48 Request METABOLIC PANEL, COMPREHENSIVE (34437)Indication: Pain in unspecified joint On: 0-Kbl-325155:48 Request RHEUMATOID FACTOR-QUANT (70193)Indication: Pain in unspecified joint On: 8-Xvs-943012:48 Request SED RATE ERYTHROCYTE (00587)Indication: Pain in unspecified joint On: 7-Ium-439655:48 Request TSH ([id number])Indication: Pain in unspecified joint On: 1-Ngf-760569:48 Request GRETTA CULTURE-OTHER (44693)Indication: Pharyngitis, acute On: 83-Uoo-853052:12 Request Rapid Strep Test, Office (32282)Indication: Pharyngitis, acute On: 57-Ffc-063231:12 Request Comments: negative VITAMIN D, 1, 25-DIHYDROXY (25028)Indication: Chronic pancreatitis On: 32-Gsv-694417:46 Request Vitamin B-12 (cyanocobalamin) (38510)Indication: Other vitamin B12 deficiency anemia On: 53-Hku-454584:43 Request Lipase (04422)Indication: Chronic pancreatitis On: 65-Ziu-881032:35 Request Amylase (83312)Indication: Chronic pancreatitis On: 50-Mkf-821653:34 Request CBC (Auto) (08398)Indication: Chronic pancreatitis On: 84-Sqt-525036:34 Request Metabolic Panel, Comprehensive (76483)Indication: Chronic pancreatitis On: 57-Juu-147176:34 Request Lipid Panel (89685)Indication: Chronic pancreatitis On: 03-Vvf-914802:34 Request Comments: standing order every 3 months Metabolic Panel, Comprehensive (04631)Indication: Edema On: 69-Mjr-998360:13 Request CBC, Platelets & Auto Diff (88888)Indication: Edema On: 97-Gpu-401877:13 Request PTT (Activated Partial Thromboplastin Time) (38935)Indication: Edema On: 33-Tyd-199448:12 Request PT (Prothrobim Time) (35766)Indication: Edema On: 89-Zhy-561220:12 Request Lipase (32160)Indication: pancreatitis On: :32 Request Amylase (72135)Indication: pancreatitis On: :32 Request CBC (Auto) (01547)Indication: pancreatitis On: :32 Request Metabolic Panel, Comprehensive (49872)Indication: pancreatitis On: :32 Request Metabolic Panel, Comprehensive (81909)Indication: Fever On: 75-Sub-406050:57 Request GRETTA CULTURE-BLOOD (66655)Indication: Fever On: 65-Qhj-280436:56 Request Comments: one from peripheral GRETTA CULTURE-BLOOD (72047)Indication: Fever On: 89-Wzl-565262:56 Request Comments: one from port Sed Rate Erythrocyte (53805)Indication: Fever On: 95-Myi-599153:56 Request CBC, Platelets & Auto Diff (72282)Indication: Fever On: :56 Request Urinalysis, Office (90473)Indication: Fever On: 66-Zkm-224933:56 Request GRETTA CULTURE-OTHER (71556)Indication: Fever On: 7-Vhg-417698:53 Request Rapid Strep Test, Office (48400)Indication: Fever On: :52 Request CBC, Platelets & Auto Diff (57196)Indication: Chronic pancreatitis On: :46 Request Lipase (28902)Indication: Chronic pancreatitis On: :46 Request Amylase (63118)Indication: Chronic pancreatitis On: :46 Request Metabolic Panel, Comprehensive (37119)Indication: Chronic pancreatitis On: 2-Olw-723544:46 Request FERRITIN ([id number])Indication: Anemia On: 1-Xia-641215:22 Request VITAMIN B-12 (CYANOCOBALAMIN) (96010)Indication: Other vitamin B12 deficiency anemia On: 9-Vyx-125240:22 Request LIPASE (55643)Indication: Acute pancreatitis On: :22 Request ALBUMIN SERUM (59171)Indication: Acute pancreatitis On: :22 Request CBC (AUTO) ([id number])Indication: Acute pancreatitis On: 45-Tyh-718164:21 Request METABOLIC PANEL, BASIC (12832)Indication: Abnormal blood chemistry On: 01-Wuf-963349:21 Request Planned Encounters Medical; [facility] (Doctor) - On: 01-May-2018 13:30 [facility] Dima DURAN, Sarah Pizano MD, Sarah Rebollar Planned Procedures Flu Vaccine (Quadrivalent) On: 31-Mar-2018 Intent 41951Hz: COMFORT Gallegos Comments: Lot #:[id number] date: 8-12-85Ffaufj given:0.5mlRoute: IMSite given:L DltdGiven by: ElaineVIS and ABN signed [employer] SCREENING DIGITAL TOMOSYNTHESIS On: 20-Dec-2017 Intent OF BREAST ([id number])By: Sarah Pizano MD, MD, Dana M DEXA SCAN AXIAL SKELETON On: 20-Dec-2017 Intent (10074)By: Sarah Pizano MD, MD, Dana M SCREENING DIGITAL TOMOSYNTHESIS On: 29-Apr-2017 Intent OF BREAST (49138)By: Sarah Pizano MD, MD, Dana M Flu Vaccine (Quadrivalent) On: 29-Apr-2017 Intent 23282Vz: Sarah Pizano MD Comments: lot: [id number]: 12/19/17ite/route: L kelin, IMamt: 0.5mlVIS and ABN signed when applicableChelsea, LEAD C DEVELOPER Sarah Pizano MD CT - Abdomen & Pelvis (IV On: 01-Oct-2016 Intent Contrast Needed)By: Dima DURAN, Comments: attentinon pancrease follow up on kidney cyst. 07-20 creat 0.76 Sarah Ghosh MD Flu Vaccine (Quadrivalent) On: 17-May-2016 Intent 00579Xz: Sarah Pizano MD Comments: FLUlot: [id number]:11/17site:Lt deltoidroute:IMdose:.5mlDEMICK, MA Sarah Pizano MD Aerosol Treatment (70437)By: On: 27-Apr-2016 Intent Kacey Rodriges LPN DEXA SCAN AXIAL SKELETON On: 09-Mar-2016 Intent (49869)By: Sarah Pizano MD, MD, Dana M MAMMOGRAM, SCREENING, BOTH On: 09-Mar-2016 Intent BREAST (01145)By: Sarah Pizano MD, MD, Dana M DEXA SCAN AXIAL SKELETON On: 15-Jul-2015 Intent (58559)By: Sarah Pizano MD, MD, Dana M MAMMOGRAM, SCREENING, BOTH On: 15-Jul-2015 Intent BREAST (99322)By: Sarah Pizano MD, MD, Dana M Aerosol Treatment (35062)By: On: 08-Jul-2015 Intent Pamella Saavedra CNP Aerosol Treatment (43928)By: On: 08-Jul-2015 Intent Slarb RUSSET REPAIRER, Kacey XR HIP RIGHT COMPLETE (05966)By: On: 30-Jun-2015 Intent Sarah Pizano MD, MD, Comments: right hip Sarah Rebollar Radiology - PelvisBy: Dima On: 24-Jun-2015 Intent Sarah DURAN MD, Dana M Comments: and right hip xray Venous Doppler - RightBy: On: 24-Jun-2015 Intent Sarah Pizano MD, MD, Comments: leg Sarah Rebollar Flu Vaccine (Quadrivalent) On: 15-Apr-2015 Intent 60024Ro: Sarah Pizano MD Comments: lot [id number]: 01/01/2016site/route L kelin, IMamt 0.5mlVIS and ABN signed when applicableHellenlsmadeleine CMA4 Sarah Pizano MD Radiology - ChestBy: Quentin ARGUETA, On: 07-Feb-2015 Intent Adeola Aerosol Treatment (38567)By: On: 07-Feb-2015 Intent Ailyn Aguilar Solu -Medrol Injection, 125 mg On: 05-Feb-2015 Intent (J2930)By: Pamella Saavedra CNP Comments: lot:[id number]:route:IMdose:125MGsite: R glutGiven by: FOX Angeles Solu -Medrol Injection, 125 mg On: 04-Feb-2015 Intent (J2930)By: Pamella Saavedra CNP Aerosol Treatment (08568)By: On: 04-Feb-2015 Intent Pamella Saavedra CNP MAMMOGRAM, SCREENING, BOTH On: 14-Jan-2015 Intent BREAST (86310)By: Sarah Pizano MD, MD, Dana M Prevnar 13 (82025)By: Dima On: 16-Jul-2014 Intent Sarah DURAN MD, Dana M ADMINISTRATION OF INFLUENZA On: 22-Apr-2014 Intent VIRUS VACCINE (G0008)By: Sarah Pizano MD, MD, Dana M FLU VAC, SPLIT, >3 YEARS, On: 22-Apr-2014 Intent INTRAMUSC (19751)By: Dima DURAN, Comments: Lot #:[id number] date:mount given:0.5mlRoute: IMSite given:left deltoid Given by: Sarah Mota MD Phenergan Injection, up to 50 mg On: 12-Dec-2013 Intent (J2550)By: Pamella Saavedra CNP MAMMOGRAM, SCREENING, BOTH On: 25-Sep-2013 Intent BREASTS (86410)By: Sarah Pizano MD, MD, Dana M Eprescribed prescriptions On: 25-Sep-2013 Intent (G8553)By: Sarah Pizano MD, MD, Dana M Aerosol Treatment (81829)By: On: 05-Sep-2013 Intent [address]ella Saavedra CNP CT - Abdomen & Pelvis (IV On: 04-Jun-2013 Intent Contrast Needed)By: Sarah Pizano MD, MD, Dana M DXA, BONE DENSITY, AXIAL On: 04-Jun-2013 Intent SKELETON (45708)By: Dima DURAN, Comments: postmenapausal Sarah Ghosh MD MAMMOGRAM, SCREENING, BOTH On: 04-Jun-2013 Intent BREASTS (70007)By: Sarah Pizano MD, MD, Dana M Pulse Oximetry (35708)By: On: 04-Jun-2013 Intent COMFORT Gallegos Eprescribed prescriptions On: 14-May-2013 Intent (G8553)By: Melba Malloy ELECTROCARDIOGRAM, COMPLETE On: 26-Dec-2012 Intent (ECG) (98028)By: Sarah Pizano MD, MD, Dana M Eprescribed prescriptions On: 26-Dec-2012 Intent (G8553)By: Makenzie Allred LPN MAMMOGRAM, SCREENING, BOTH On: 24-Aug-2012 Intent BREASTS (99475)By: Sarah Pizano MD, MD, Dana M Pulse Oximetry (00046)By: On: 29-Jun-2012 Intent COMFORT Gallegos Radiology - Chest- PA and LatBy: On: 01-Jun-2012 Intent Sofia Younger DO Eprescribed prescriptions On: 01-Jun-2012 Intent (G8553)By: Kim Garces LPN FLU VAC, SPLIT, >3 YEARS, On: 28-Apr-2012 Intent INTRAMUSC (48857)By: Balaji, Comments: Lot:[id number]:630.13Dose:prefilledRoute:IMSite:L DltdGiven By:BARRY Garcia IMMUNIZ ADMNIN, 1 VAC, On: 28-Apr-2012 Intent SNGL/COMBO (16310)By: Radha Carpio TDAP VACCINE >7 IM (34520)By: On: 24-Nov-2011 Intent Long Makenzie ABBOTT Comments: Lot #[id number]- 11.13Site- L arm, ImDose prefilledgiven by: Makenzie MAMMOGRAM, SCREENING, BOTH On: 01-Nov-2011 Intent BREASTS (90374)By: Dima DURAN, Sarah Pizano MD, Sarah Rebollar Aerosol Treatment (36128)By: On: 14-Oct-2011 Intent Sofia Younger DO Comments: [...] SPLIT, >3 YEARS, On: 20-Apr-2011 Intent INTRAMUSC (87569)By: Cayden Comments: Lot #[id number]-4/30/12Site-left deltoidgiven by: Jared Rodarte LPN LPN, Chery IMMUNIZ ADMNIN, 1 VAC, On: 20-Apr-2011 Intent SNGL/COMBO (97877)By: Chery Rodarte LPN B 12 Injection, 1000 mcg On: 22-Mar-2011 Intent (J3420)By: COMFORT Gallegos DRAIN/INJECT MAJOR JOINT OR On: 22-Mar-2011 Intent BURSA ()By: COMFORT Gallegos Comments: Lot #:[id number] date: given:2ml Route: intra articular Site given:bilateral knees Given by: Dr. Pizano Pulse Oximetry (71023)By: Quentin On: 19-Mar-2011 Intent M60A2 ARMOR CREWMAN, Adeola Aerosol Treatment (61135)By: On: 19-Mar-2011 Intent Ciesa M60A2 ARMOR CREWMAN, Adeola DRAIN/INJECT MAJOR JOINT OR On: 12-Mar-2011 Intent BURSA ()By: COMFORT Gallegos Comments: Lot #:[id number] date: given:2ml Route: intra articular Site given:bilateral knees Given by: Dr. Pizano DRAIN/INJECT MAJOR JOINT OR On: 04-Mar-2011 Intent BURSA ()By: COMFORT Gallegos Comments: Lot #:[id number] date: given:2mlRoute: intra articular Site given:Bilateral knees Given by: Dr. Pizano injection #1 Kenalog Injection, 10 mgm On: 08-Feb-2011 Intent (J3301)By: Sarah Pizano MD Comments: x 8 Sarah Pizano MD Breast Ultrasound - LeftBy: On: 08-Feb-2011 Intent Sarah Pizano MD, MD, Dana M DXA, BONE DENSITY, AXIAL On: 02-Nov-2010 Intent SKELETON (37964)By: Sarah Pizano MD, MD, Dana M MAMMOGRAM, SCREENING, BOTH On: 02-Nov-2010 Intent BREASTS (69059)By: Sarah Pizano MD, MD, Dana M FLU VAC, SPLIT, >3 YEARS, On: 17-Jun-2010 Intent INTRAMUSC (18151)By: Mitchelluszsaskia Comments: Lot #[id number] 4PExp-4/11Site-right deltoidgiven by:LIBRADO RUSSET REPAIRER, Chery IMMUNIZ ADMNIN, 1 VAC, On: 17-Jun-2010 Intent SNGL/COMBO (39364)By: Chery Rodarte LPN DXA, BONE DENSITY, AXIAL On: 30-Sep-2009 Intent SKELETON (27983)By: Dima DURAN, Sarah Pizano MD, Sarah Rebollar MAMMOGRAM, SCREENING, BOTH On: 30-Sep-2009 Intent BREASTS (78969)By: Dima DURAN, Sarah Pizano MD, Sarah Rebollar B 12 Injection, 1000 mcg On: 30-Sep-2009 Intent (J3420)By: COMFORT Gallegos Pulse Oximetry (75901)By: Quentin On: 09-Apr-2009 Intent M60A2 ARMOR CREWMAN, Adeola Aerosol Treatment (07733)By: On: 09-Apr-2009 Intent Ciesa M60A2 ARMOR CREWMAN, Adeola FLU VAC, SPLIT, >3 YEARS, On: 26-Mar-2009 Intent INTRAMUSC (69026)By: Lisa HERRON, Andie IMMUNIZ ADMNIN, 1 VAC, On: 26-Mar-2009 Intent SNGL/COMBO (65720)By: Lisa RN, Comments: Lot #: [id number] date: mount given: 0.5 mlRoute: IMSite given: left deltoidGiven by: SCAR Montenegro INJECTION, VITAMIN B-12 On: 07-Feb-2009 Intent CYANOCOBALAMIN, UP TO 1000 MCG Comments: Lot #[id number] date:mount given:1mlSite given: right deltoidGiven by:Wf. (Special Coverage Instructions Apply. See [facility]: 45-4 and [facility]: 2049) (J3420)By: COMFORT Gallegos Pulse Oximetry (45433)By: Ceci On: 04-Dec-2008 Intent Rosa Maria AGUAYO Comments: post mqfuygqpo49% Aerosol Treatment (14887)By: On: 04-Dec-2008 Intent Fast Rosa Maria AGUAYO Comments: done-aw B 12 Injection, 1000 mcg On: 04-Dec-2008 Intent (J3420)By: Tonia Garcia Comments: Lot #[id number]-05/2010Site-right cdhchdrFbul4583eqk/1mlgiven by Debbie Lei LPN Pulse Oximetry (35531)By: On: 04-Dec-2008 Intent Tonia Garcia Comments: 91% Radiology - Knee - RightBy: On: 05-Nov-2008 Intent Dima DURAN, Sarah Pizano MD, Sarah Rebollar Radiology - Knee - LeftBy: On: 05-Nov-2008 Intent Dima DURAN, Sarah Pizano MD, Sarah Rebollar B 12 Injection, 1000 mcg On: 05-Nov-2008 Intent (J3420)By: COMFORT Gallegos Comments: Lot #:[id number] date: given:1 ml Route: IM Site given:rt. deltoid Given by: aretha Sarkar 12 Injection, 1000 mcg On: 09-Oct-2008 Intent (J3420)By: COMFORT Gallegos Comments: Lot #[id number]-05/2010Site-right ncuhijmJibi3642qxc/1mlgiven by Debbie Lei LPN DRAIN/INJECT MAJOR JOINT OR On: 09-Oct-2008 Intent BURSA ()By: COMFORT Gallegos Comments: Lot #:[id number] date:mount given:Route: intra articular Site given:bilateral knees Given by: Dr. Pizano DRAIN/INJECT MAJOR JOINT OR On: 01-Oct-2008 Intent BURSA ()By: COMFORT Gallegos Comments: Lot #:[id number] date:mo given:2.5ml Route:intra-articular Site given:Bilateral knees Given by: Dr. Pizano DRAIN/INJECT MAJOR JOINT OR On: 24-Sep-2008 Intent BURSA ()By: COMFORT Gallegos Comments: Lot #:[id number] date: Amount given:2.5 mlRoute: intra-articular Site given:bilateral knees Given by: Dr. Pizano DRAIN/INJECT MAJOR JOINT OR On: 17-Sep-2008 Intent BURSA ()By: COMFORT Gallegos Comments: Lot #:[id number] date:mount given:2 grams Route: Intra articular Site given: bilateral knees Given by: Dr. Pizano DRAIN/INJECT MAJOR JOINT OR On: 13-Sep-2008 Intent BURSA ()By: COMFORT Gallegos Comments: Lot #:[id number] date:05-10 Amount given:2.5MLRoute: INTRA ARTICULAR Site given:bilateral knees Given by: Dr. Pizano B 12 Injection, 1000 mcg On: 10-Sep-2008 Intent (J3420)By: COMFORT Gallegos B 12 Injection, 1000 mcg On: 29-Jul-2008 Intent (J3420)By: Denise Collazo Comments: Amt: 1mlLot: [id number]: 02/10Route: IMSite: right deltTolerated: wellGiven By: SCAR Sood Pulse Oximetry (19602)By: Quentin On: 29-Jul-2008 Intent M60A2 ARMOR CREWMAN, Adeola Aerosol Treatment (12034)By: On: 29-Jul-2008 Intent Ciesa M60A2 ARMOR CREWMAN, Adeola Aerosol Treatment (32788)By: On: 16-Jul-2008 Intent Sofia Younger DO Comments: done-awnoise resolved and much more air exchange Pulse Oximetry (25992)By: Carisa On: 16-Jul-2008 Sofia Davis DO Comments: 93% Solu- Medrol Injection, 125mg On: 16-Jul-2008 Intent (J2930)By: Sofia Younger DO Comments: Lot #[id number]-6/11Site-right xorPwau0pk/125mggiven by Debbie Lei LPN B 12 Injection, 1000 mcg On: 30-Apr-2008 Intent (J3420)By: Prema Lei Comments: Lot #[id number]-/10Site-right ukcofdyXqff0arlrtro by Debbie Lei LPN DXA, BONE DENSITY, AXIAL On: 30-Apr-2008 Intent SKELETON (17627)By: Dima DURAN, Comments: estrogen def Sarah Pizano MD, Sarah Rebollar MAMMOGRAM, SCREENING, BOTH On: 30-Apr-2008 Intent BREASTS (49557)By: Dima DURAN, Sarah Pizano MD, Sarah Rebollar B 12 Injection, 1000 mcg On: 27-Mar-2008 Intent (J3420)By: Tonia Garcia Comments: Lot #:[id number] date:mount given:.1mlRoute: IMSite given:left deltoidGiven by: EDEN Salcido Pulse Oximetry (77980)By: On: 27-Mar-2008 Intent Tonia Garcia Comments: 96% Pulse Oximetry (37298)By: On: 14-Mar-2008 Intent COMFORT Gallegos B 12 Injection, 1000 mcg On: 06-Feb-2008 Intent (J3420)By: Pamella Saavedra CNP Comments: Lot #:[id number] date: Amount given:1ml Route: IMSite given:left deltoid Given by: billy Solu -Medrol Injection, 125 mg On: 06-Feb-2008 Intent (J2930)By: Pamella Saavedra CNP Comments: Lot #:[id number] date:mount given:125mgRoute: IMSite given:left gluteal Given by: aretha Pulse Oximetry (53504)By: Quentin On: 06-Feb-2008 Intent Pamella ARGUETA Aerosol Treatment (90848)By: On: 06-Feb-2008 Intent Pamella Saavedra CNP B 12 Injection, 1000 mcg On: 21-Dec-2007 Intent (J3420)By: Ledy Nogueira Comments: given in right deltoid, lot#[id number], exp.3.10 >Wf. B 12 Injection, 1000 mcg On: 03-Oct-2007 Intent (J3420)By: Pamella Saavedra CNP Pulse Oximetry (25081)By: Quentin On: 03-Oct-2007 Intent Pamella ARGUETA Aerosol Treatment (43819)By: On: 03-Oct-2007 Intent Pamella Saavedra CNP Pulse Oximetry (14453)By: Lenny, On: 16-Aug-2007 Intent Cira Aerosol Treatment (66172)By: On: 16-Aug-2007 Intent Sofia Younger DO Comments: no wheeze and better air exchange Solu- Medrol Injection, 125mg On: 16-Aug-2007 Intent (J2930)By: Sofia Younger DO Comments: given in left buttocks.lot # [id number]\Exp 02/2010 SPECIMEN HNDLNG/TRNSPRT, OFFC > On: 16-Aug-2007 Intent LAB (17875)By: Sofia Younger DO B 12 Injection, 1000 mcg On: 01-Aug-2007 Intent (J3420)By: Prema Lei Comments: Lot #[id number]-05/12Site-left veoyjwlNzpf2xrzwfly by Debbie Lei LPN CT - ChestBy: Sarah Pizano MD On: 01-Aug-2007 Intent Sarah Pizano MD FLU VAC, SPLIT, >3 YEARS, On: 18-Apr-2007 Intent INTRAMUSC (80502)By: Sarah Pizano MD, MD, Dana M IMMUNIZ ADMNIN, 1 VAC, On: 18-Apr-2007 Intent SNGL/COMBO (85095)By: Sarah Pizano MD, MD, Dana M B 12 Injection, 1000 mcg On: 18-Apr-2007 Intent (J3420)By: Sarah Pizano MD, MD, Dana M B 12 Injection, 1000 mcg On: 07-Mar-2007 Intent (J3420)By: Sraah Pizano MD, MD, Dana M Breast Screening [...] HNDLNG/TRNSPRT, OFFC > On: 10-Oct-2006 Intent LAB (93942)By: Sarah Pizano MD, MD, Dana M Solu -Medrol Injection, 125 mg On: 16-Sep-2006 Intent (J2930)By: Sarah Pizano MD Comments: lot # [id number] exp 04-11 [address]. gluteal by Sarah Chacon lpn, MD Pulse Oximetry (41668)By: On: 16-Sep-2006 Intent Sarah Pizano MD, MD, Dana M Aerosol Treatment (69602)By: On: 16-Sep-2006 Intent Sarah Pizano MD, MD, Dana M Pulse Oximetry (98266)By: On: 04-Aug-2006 Intent Sarah Pizano MD, MD, Dana M EKG (63482)By: Sarah Pizano MD On: 08-Jul-2006 Intent Sarah Morfin MD IMMUNIZ ADMNIN, 1 VAC, On: 06-May-2006 Intent SNGL/COMBO (89327)By: Ramiro ABBOTT, Peg FLU VAC, SPLIT, >3 YEARS, On: 06-May-2006 Intent INTRAMUSC (56702)By: Ramiro ABBOTT, Comments: Lot #:Expiration date:Amount given:Route: imSite given:r armGiven by: galina golden lpn Peg Echo CompleteBy: Dima DURAN, On: 19-Apr-2006 Intent Sarah Ghosh MD CT - Abdomen & PelvisBy: Dima On: 19-Apr-2006 Intent Sarah DURAN MD, Dana M Comments: ?obstruction, pancreatitis, attention kidney cyst send to [facility] gastrologist [facility] [place] Planned Medications INJECTION, METHYLPREDNISOLONE SODIUM SUCCINATE, UP TO 125 MG Ordered: 14-Oct-2011 Pending Sofia Younger DO INJECTION, METHYLPREDNISOLONE SODIUM SUCCINATE, UP TO 125 MG Ordered: 04-Feb-2015 Pending Ciesa M60A2 ARMOR CREWMAN, Adeola INJECTION, METHYLPREDNISOLONE SODIUM SUCCINATE, UP TO 125 MG Ordered: 05-Feb-2015 Pending Ciesa M60A2 ARMOR CREWMAN, Adeola INJECTION, TRIAMCINOLONE ACETONIDE, NOT OTHERWISE SPECIFIED, [...] Advance Directives Name Dates Details Immunization Registry Sunflower - Effective on Effective: 29-Apr-201704/29/2017. Expiration date [...] ANEMIA DUE TO DIETARY IRON DEFICIENCY (280.1), [facility] V73.21 [facility]BS[facility] (Renamed from [facility]) [facility] Office Visit On: 29-Jun-2012 [...] docs for this Dr Jacob rabago at [facility]-- -- feels similiar to what she had [...] months. Note for Fever: pt had epidural [id number] Diagnosis: Dehydration(276.51), Abdominal Pain,Generalized (789.07), FEVER (780.6) [...] care visit: swelling better with aldactone, reviewed wound care center consultant's letter use compression, work up from [...] weekend , bite by flies, camp in [facility], no fever abd pain still hit abd [...] chemistry (790.6) [facility] Payers [facility] Donovan COBIAN; junie guarantor
--- OUTSIDE RECORDS SUMMARY | 2018-08-02 05:56 | XMS RPT_ITS | Continuity of Care Document ---
:1955 Author Organization [facility] Address [address] [place] [address] Phone Care Team Providers Name Role Phone [...] cervical.doing every 6 months. george leaving to [place]. reconmmend Dr. romero and i talk to [...] qd Active Comments:plus 1000IU Vitamin D3 Creon 04889 UNIT Oral Capsule Delayed Release Particles 2 (two) Capsule DR Part tid romel meals for 0 days Quantity: 540 {Capsule} Refills: 3 Ordered:09-May-2017 Sarah Pizano MD, MD, Dana M Start : 09-May-2017 Active Cymbalta 60 MG Oral Capsule Delayed Release Particles [address] Part QHS / HS for 0 days Quantity: 90 {Capsule} Refills: 3 Ordered:09-May-2017 Sarah iPzano MD, MD, Dana M Start : 09-May-2017 [...] MD, Dana M Start : 30-Nov-2016 Active Trumbull 5-325 MG Oral Tablet 1 (one) Tablet [...] Start : 14-Apr-2018 Active Vitamin D (Ergocalciferol) 03246 UNIT Oral Capsule 1 (one) capsule twice [...] MD, Dana M Start : 06-Feb-2018 Active Comments:[id number] called to [facility] ADVAIR DISKUS, 100-50MCG/DOSE [...] End : 24-Aug-2012 Inactive CALCIUM 500/VITAMIN D, 424-225HB-PAUB (Oral Tablet) 1 (one) Tablet daily for [...] : 09-Mar-2016 End : 04-Jun-2016 Inactive Drisdol 02859 UNIT Oral Capsule 1 Capsule two times a week for 0 days Quantity: 24 {Capsule} Refills: 3 Ordered:13-Jan-2017 Dima DURAN, Sarah Sloan MD, Sarah Rebollar Start : 23-Jul-2016 End : 13-Jan-2017 Inactive GLUCOSAMINE CHONDR 500 COMPLEX (Oral Capsule) for 0 days Refills: 0 Ordered:19-Mar-2011 Supriya Fugn LPN End : 19-Mar-2011 Inactive SOFIE, 30MG [...] : 21-Dec-2007 End : 14-Mar-2008 Inactive Nystatin 901931 UNIT/GM External Powder 1 Powder bid for [...] cervical.doing every 6 months. george leaving to [place]. reconmmend Dr. romero and i talk to [...] Procedures Procedure Dates Details [place]ACC, [place] (17726) Date: 01-Oct-2016 Cancelled Cholecystectomy Completed GASTRIC BYPASS, OPEN (30151) Completed Comments: 1997, Dr. lindsay did for recurrent pancreatitis, this is what helped her. Hysterectomy; Abdominal Completed JEJUNOSTOMY (54210) Completed Comments: 1995 closed 1997 when had gastric bypass, because of pancreatitis and was tube feed for 2 years Date Value Details 21-Mar-2018 Dexa Bone Density Study Result: Comments: See Note; NOTES: [facility] Imaging Services [address] [place] [address] Dexa Bone Density Study MR#: [id number] Acct: [id number] Name: JOSE J COBIAN Rep #: [id number] : 1955 F 63 From: Bartolome Patel MD PCP: Sarah Pizano MD Status: REG CLI Study: Dexa Bone Density Study Date of Exam: 03/21/18 Exam# [id number] Ordering Dr: Sarah Pizano MD STUDY: D [...] Bartolome Patel MD at 15:07 EDT Tel [phone], Service support , CC: Sarah Pizano MD Analytical Data Miner: Signed 21-Mar-2018 SCREENING MAMM (CAD), BILAT Result: Comments: See Note; NOTES: [facility] Imaging Services [address] [address] SCREENING MAMM (CAD), BILAT MR#: [id number] Acct: [id number] Name: JOSE J COBIAN Rep #: [id number] : 1955 F 63 From: Bartolome Patel MD PCP: Sarah Pizano MD Status: REG CLI Study: SCREENING MAMM (CAD), BILAT Date of Exam: 03/21/18 Exam# [id number] Ordering Dr: Sarah Pizano MD MAMMOGRAPHY - [...] biopsy of a clinically suspicious abno rmality. [id number] Electronically Signed: Bartolome Patel MD at 13:21 EDT Tel [phone], Service support , CC: Sarah Pizano MD Analytical Data Miner: Signed 07-Nov-2017 Operative Report Result: Comments: See Note; NOTES: [facility] Medical Records Department [address] [place] [address] Operative Report 11/07/17 1027 MR#: [id number] Acct: [id number] Name: JOSE J COBIAN Rep #: [id number] : 1955 62 From: Bubba Romero MD PCP: Sarah Pizano MD Status: REG [facility] Y Location: [place] [address] Problem List (1) Disc disease, degenerative, lumbar [...] 4 Views Result: Comments: See Note; NOTES: [facility] Imaging Services [address] [place] [address] L/S Spine Min 4 Views MR#: [id number] Acct: [id number] Name: JOSE J COBIAN Rep #: [id number] : 1955 F 62 From: Bartolome Patel MD PCP: Sarah Pizano MD Status: [facility] Study: L/S Spine Min 4 Views Date of Exam: 11/07/17 Exam# [id number] Ordering Dr: Bubba Romero MD PROCEDURE : [...] Bartolome Patel MD at 11:01 EDT Tel [phone], Service support , CC: Sarah Pizano MD; Bubba Romero Analytical Data Miner: Signed 04-Oct-2017 Cardiology Visit Report Result: Comments: See Note; NOTES: [facility] [address] [place] [address]. [address] [place] [address] OFFICE VISIT Date of Service: 10/03/17 MR#: [id number] Acct: [id number] Name: JOSE J COBIAN Rep #: [id number] : 1955 Provider: Chanel Shaw Age/Sex: 62/F Location: [facility] Status: Signed HPI HPI Details: JOSE J [...] Intake Visit Reasons: NOT SEEN SINCE 05/2016 Display Decorator Required: No Accompanied by: Is patient in [...] mg PO DAILY@0800 10/20/15 [History Confirmed 10/03/17] [place] codone Bitart/Apap 5-325 [Trumbull 5/325] 1 tab PO Q4H PRN PRN [...] infarction beginning age 61's, has had several NC's CAD (co ronary artery disease) history of [...] Operative Report Result: Comments: See Note; NOTES: [facility] Medical Records Department [address] [place] [address] Operative Report 09/05/17 0944 MR#: [id number] Acct: [id number] Name: JOSE J COBIAN Rep #: [id number] : 1955 62 From: Bubba Romero MD PCP: Sarah Pizano MD Status: [facility] Y Location: [place] [address] Problem List (1) Lumbosacral spondylosis Status: Chronic [...] 4 Views Result: Comments: See Note; NOTES: [facility] Imaging Services [address] [place] [address] L/S Spine Min 4 Views MR#: [id number] Acct: [id number] Name: JOSE J COBIAN Rep #: [id number] : 1955 F 62 From: Bartolome Patel MD PCP: Sarah Pizano MD Status: [facility] Study: L/S Spine Min 4 Views Date of Exam: 09/05/17 Exam# [id number] Ordering Dr: Bubba Romero MD PROCEDURE : [...] Bartolome Patel MD at 9:02 EST Tel [phone], Service support , CC: Sarah Pizano MD; Bubba Romero Analytical Data Miner: Signed 08-Aug-2017 Operative Report Result: Comments: See Note; NOTES: [facility] Medical Records Department [address] [place] [address] Operative Report 08/08/17 1408 MR#: [id number] Acct: [id number] Name: JOSE J COBIAN Rep #: [id number] : 1955 62 From: Bubba Romero MD PCP: Sarah Pizano MD Status: DEP [facility] Y Location: [facility] Problem List (1) Lumbosacral radiculopathy Status: Chronic [...] 3 Views Result: Comments: See Note; NOTES: [facility] Imaging Services [address] [place] [address] Lumbar Spine 2 or 3 Views MR#: [id number] Acct: [id number] Name: JOSE J COBIAN Rep #: [id number] : 1955 F 62 From: Bartolome Patel MD PCP: Sarah Pizano MD Status: [facility] Study: Lumbar Spine 2 or 3 Views Date of Exam: 08/08/17 Exam# [id number] Ordering Dr: Bubba Romero MD P ROCEDURE: [...] Bartolome Patel MD at 11:32 EST Tel [phone], Service support , CC: Sarah Pizano MD; Bubba Romero Analytical Data Miner: Signed 09-May-2017 Operative Report Result: Comments: See Note; NOTES: [facility] Medical Records Department [address] [place] [address] Operative Report 05/09/17 1348 MR#: [id number] Acct: [id number] Name: JOSE J COBIAN Rep #: [id number] : 1955 62 From: Bubba Romero MD PCP: Sarah Pizano MD Status: REG [facility] Y Location: [place] [address] Report of Operation Date of Procedure: 05/09/17 [...] Spine Inj Result: Comments: See Note; NOTES: [facility] Imaging Services [address] [place] [address] Fluor Guidance for Spine Inj MR#: [id number] Acct: [id number] Name: JOSE J COBIAN Rep #: [id number] : 1955 F 62 From: Bartolome Patel MD PCP: Sarah Pizano MD Status: [facility] Study: Fluor Guidance for Spine Inj Date of Exam: 05/09/17 Exam# [id number] Ordering Dr: Bubba Romero MD PROCEDURE: Caudal [...] Bartolome Patel MD at 14:03 EST Tel [phone], Service support , CC: Sarah leigh MD; Bubba Romero Analytical Data Miner: Signed 29-Apr-2017 L/S Spine Min 4 Views Result: Comments: See Note; NOTES: [facility] Imaging Services [address] [place] [address] L/S Spine Min 4 Views MR#: [id number] Acct: [id number] Name: JOSE J COBIAN Rep #: [id number] : 1955 F 62 From: Feliberto Sim MD PCP: Sarah Pizano MD Status: REG CLI Study: L/S Spine Min 4 Views Date of Exam: 04/29/17 Exam# [id number] Ordering Dr: Lizeth Sanches STUDY: X-RAY - [...] , CC: Lizeth Sanches; Sarah Pizano MD Analytical Data Miner: Signed 21-Mar-2017 Operative Report Result: Comments: See Note; NOTES: [facility] Medical Records Department [address] [place] [address] Operative Report 03/21/17 0841 MR#: [id number] Acct: [id number] Name: JOSE J COBIAN Rep #: [id number] : 1955 62 From: Bubba Romero MD PCP: Sarah Pizano MD Status: [facility] Y Location: [facility] Problem List (1) Cervical spine degeneration Status: [...] 5 Views Result: Comments: See Note; NOTES: [facility] Imaging Services [address] [place] [address] Cerv Spine 4 or 5 Views MR#: [id number] Acct: [id number] Name: JOSE J COBIAN Rep #: [id number] : 1955 F 62 From: Daniel Manzano DO PCP: Sarah Pizano MD Status: [facility] Study: Cerv Spine 4 or 5 Views Date of Exam: 03/21/17 Exam# [id number] Ordering Dr: Bubba Romero MD STUDY: X-RAY - CERVICAL SPINE REASON FOR EXAM: Female, 62 years old. Cervical block TECHNIQUE: 4 view(s) of the cervical spine were obtained. COMPARISON: None FINDINGS: Face t block was performed with 4 spot fluoroscopy images obtained. Total fluoroscopy time 14.7 seconds. Please see performing physician's report for further details ORD ER #: [id number] RAD/Cerv Spine 4 or 5 Views IMPRESSION: As above Electronically Signed: Daniel Manzano DO at 16:12 EDT Tel , Service support , CC: Sarah Pizano MD; Bubba Romero Analytical Data Miner: Signed 17-Jan-2017 Operative Report Result: Comments: See Note; NOTES: [facility] Medical Records Department [address] [place] [address] Operative Report 01/17/17 1246 MR#: [id number] Acct: [id number] Name: JOSE J COBIAN Rep #: [id number] : 1955 61 From: Bubba Romero MD PCP: Sarah Pizano MD Status: DEP [facility] Location: [facility] Problem List (1) Cervical spine degeneration Status: [...] 5 Views Result: Comments: See Note; NOTES: [facility] Imaging Services [address] [place] [address] Verdana 4d Cerv Spine 4 or 5 Views MR#: [id number] Acct: [id number] Name: JOSE J COBIAN #: [id number] : 1955 F 61 From: Tonia Galvan MD PCP: Sarah Pizano MD Status: [facility] Study: Cerv Spine 4 or 5 Views Date of Exam: 01/17/17 Exam# [id number] Ordering Dr: Bubba Romero MD STUDY: X-RAY [...] Tonia Galvan MD at 16:36 EDT Tel [phone], Service support , CC: Sarah Pizano MD; Bubba Romero Analytical Data Miner: Signed 09-Oct-2016 Abdomen/Pelvis WITH Contrast Result: Comments: See Note; NOTES: [facility] Imaging Services [address] [place] [address] [place] [address] 4d Abdomen/Pelvis WITH Contrast MR#: [id number] Acct: [id number] Name: VIRAJ COBIAN Rep #: [id number] : 1955 F 61 From: Enrike Peres PCP: Sarah Pizano MD Status: REG CLI Study: Abdomen/Pelvis WITH Contrast Date of Exam: 10/09/16 Exam# [id number] Ordering Dr: Sarah Pizano MD STUDY: CT [...] at 9:47 EDT Tel , Service support [phone], CC: Sarah Pizano MD Analytical Data Miner: Signed 23-Aug-2016 Operative Report Result: Comments: See Note; NOTES: [facility] Medical Records Department [address] [place] [address] Operative Report MR#: [id number] Acct: [id number] Name: JOSE J COBIAN Rep #: [id number] : 1955 61 From: Bubba Romero MD PCP: Sarah Pizano MD Status: DEP [facility] DATE OF SERVICE: 08/09/2016 DATE OF PROCEDURE: [...] indicated. Bubba Romero MD T: NTS JOB: [id number] 08/23/16 1357 <Electronica lly signed by Bubba Romero MD> Date Bubba Romero MD Cosigner Signature (If Indicated): Date ____ CC: Sarah Pizano MD; Bubba Romero Date Dictated: 08/09/16 1311 Date Transcribed: 08/09/16 131 Analytical Data Miner: Signed 09-Aug-2016 Thoracic Spine 3 Views Result: Comments: See Note; NOTES: [facility] Imaging Services [address] [place] [address] Verdana 4d Thoracic Spine 3 Views MR#: [id number] Acct: [id number] Name: JOSE J COBIAN Chantale p #: [id number] : 1955 F 61 From: Azalia Fernandes MD PCP: Sarah Pizano MD Status: [facility] Study: Thoracic Spine 3 Views Date of Exam: 08/09/16 Exam# [id number] Ordering Dr: Bubba Romero MD [facility] DY: X-RAY - THORACIC SPINE REASON FOR [...] at 1 2:18 EST , Service support [phone], CC: Sarah Pizano MD; Bubba Romero Analytical Data Miner: Signed 01-Jun-2016 PT D/C of Non Returning Pt (1) Result: Comments: See Note; NOTES: [facility] Physical Therapy [facility] [address] [place] [address]. [address] [place] [address] Fax REHABILITATION SERVICES DISCHAR GE SUMMARY MR#: [id number] Acct: [id number] Name: JOSE J COBIAN Rep #: [id number] Operative Report Result: Comments: See Note; NOTES: [facility] Medical Records Department [address] [facility] [place] [address] Operative Report MR#: [id number] Acct: [id number] Name: JOSE J COBIAN Rep #: [id number] : 1955 61 From: Bubba Romero MD PCP: Sarah Pizano MD Status: DEP [facility] DATE OF SERVICE: 03/22/2016 DATE OF SERVICE: [...] procedure if indicated. Bubba Romero MD T: [facility] JOB: [id number] 04/05/16 1351 <E lectronically signed by Bubba Romero MD> Date Bubba Romero MD Cosigner Signature (If Indicated): Date CC: Sarah Pizano MD; Bubba Romero Date Dictated: 03/22/161415 Date Transcribed: 03/22/161415 Analytical Data Miner: Signed 01-Apr-2016 Echocardiogram Complete Result: Comments: See Note; NOTES: [facility] Cardiovascular Services [address] [place] [address] Echo Complete 04/01/16 1256 MR#: [id number] Acct: [id number] Name: JOSE J COBIAN Rep #: [id number] : 1955 61 From: Antonino Lucas MD Attending Dr: Antonino Lucas MD Status: REG CLI Ordering Dr: Antonino Lucas MD Date: 04/01/16 Location: [facility] Sex: F C Admitted: Reason For [...] Dictated: 04/01/16 1256 Date Transcribed: 04/01/16 1515 Analytical Data Miner: Signed 22-Mar-2016 Breast Limited Unilateral Result: Comments: See Note; NOTES: [facility] Imaging Services [address] [place] [address] Verdana 4d Breast Limited Unilateral MR#: [id number] Acct: [id number] Name: JOSE J COBIAN Rep #: [id number] : 1955 F 61 From: Bartolome Patel MD PCP: Sarah Pizano MD Status: REG CLI Study: Breast Limited Unilateral Date of Exam: 03/22/16 Exam# [id number] Ordering Dr: Zack Pizano MD STUDY: ULTRASOUND [...] Bartolome Patel MD at 12:35 EDT Tel [phone], Service support [phone], CC: Sarah Pizano MD Analytical Data Miner: Signed 19-Mar-2016 Thoracic Spine 3 Views Result: Comments: See Note; NOTES: [facility] Imaging Services [address] [place] [address] Verdana 4d Thoracic Spine 3 Views MR#: [id number] Acct: [id number] Name: JOSE J COBIAN ep #: [id number] : 1955 F 61 From: Bartolome Patel MD PCP: Sarah Pizano MD Status: [facility] Study: Thoracic Spine 3 Views Date of Exam: 03/22/16 Exam# [id number] Ordering Dr: Bubba Romero MD STUDY: X-RAY [...] Bartolome Patel MD at 14:10 EDT Tel [phone], Service support [phone], CC: Sarah vasquez MD; Bubba Romero Analytical Data Miner: Signed 19-Mar-2016 Inital Evaluation (1) - PT Result: Comments: See Note; NOTES: [facility] Physical Therapy [facility] [address] [place] [address]. [address] [place], [place] [address] Fax REHABILITATION SERVICES INITIA L EVALUATION MR#: [id number] Acct: [id number] Name: JOSE J COBIAN Rep #: [id number] : 1955 61 From: Mac Smith Referring [...] to be FAXED BACK to us at [phone] for Medicare purposes. Please let me know [...] AND CAD Result: Comments: See Note; NOTES: [facility] Imaging Services [address] [place] [address] Verdana 4d Bilat Scrn Digital AND CAD MR#: [id number] Acct: [id number] Name: JOSE J COBIAN Rep #: [id number] : 1955 F 61 From: Bartolome Patel MD PCP: Sarah Pizano MD Status: REG CLI Study: Bilat Scrn Digital AND CAD Date of Exam: 03/16/16 Exam# [id number] Ordering Dr: Sarah Pizano MD MAMMOGRAPHY - [...] delay biopsy of a clinically suspicious abnormality. [id number] Electronically Signed: Bartolome Patel MD at 15:06 EDT Tel [phone], Service supp ort [phone], CC: Sarah Pizano MD Analytical Data Miner: Signed 16-Mar-2016 Dexa Bone Density Study (HP) Result: Comments: See Note; NOTES: [facility] Imaging Services [address] [place] [address] Verdana 4d Dexa Bone Density Study (HP) MR#: [id number] Acct: [id number] Name: MAURI COBIAN ZACK Walker Rep #: [id number] : 1955 F 61 From: Bartolome Patel MD PCP: Sarah Pizano MD Status: REG CLI Study: Dexa Bone Density Study (HP) Date of Exam: 03/16/16 Exam# [id number] Ordering Dr: Sarah Deng MD STUDY: DUAL [...] Bartolome Patel MD at 14:15 EDT Tel [phone], Service support [phone], CC: Sarah Pizano MD Analytical Data Miner: Signed 22-Feb-2016 History and Physical Exam Result: Comments: See Note; NOTES: [facility] Medical Records Department [address] [place] [address] History and Physical 02/22/162054 MR#: [id number] Acct: [id number] Name: JOSE J COBIAN Rep #: [id number] : 1955 60 From: An Dent DO [...] in the emergency room at [facility] with a chief complaint of [...] - Mediport placement Psychiatric Hist ory: Anxiety 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 Lives: Spouse/ Significant Other Smoking Status: [...] 44.6 L Lymph % (Auto) 46.1 H [place] % (Auto) 6.9 Eos % (Auto) 2.0 [...] albuterol inhaler as needed #5 anxiety 02/22/16 0392 <Electronically signed by An Dent DO> Date An schmidt DO Cosigner Signature (if applicable): Date CC: Sarah Pizano MD; An Dent DO Signed 22-Feb-2016 Chest 1 View (Portable) Result: Comments: See Note; NOTES: [facility] Imaging Services [address] [place] [address] Verdana 4d Chest 1 View (Portable) MR#: [id number] Acct: [id number] Name: JOSE J COBIAN Rep #: [id number] : 1955 F 60 From: Kim Dsouza MD PCP: Sarah Pizano MD Status: REG ER Study: Chest 1 View (Portable) Date of Exam: 02/22/16 Exam# [id number] Ordering Dr: Mac Chi MD STUDY: X-RAY [...] MD at 19:35 EDT , Service support [phone], CC: Sarah Pizano MD; Mac Chi MD Analytical Data Miner: Signed 16-Feb-2016 Thoracic Spine 3 Views Result: Comments: See Note; NOTES: [facility] Imaging Services [address] [place] [address] Verdana 4d Thoracic Spine 3 Views MR#: [id number] Acct: [id number] Name: JOSE J COBIAN Yamilka ep #: [id number] : 1955 F 60 From: Kirk Wall MD PCP: Sarah Pizano MD Status: REG CLI Study: Thoracic Spine 3 Views Date of Exam: 02/16/16 Exam# [id number] Ordering Dr: Sarah Pizano MD UDY: X-RAY [...] at 21:50 EDT , S maurilioe support [phone], CC: Sarah Pizano MD Analytical Data Miner: Signed 03-Nov-2015 Operative Report Result: Comments: See Note; NOTES: [facility] Medical Records Department [address] [place] [address] Operative Report MR#: [id number] Acct: [id number] Name: JOSE J COBIAN Rep #: [id number] : 1955 60 From: Bubba Romero MD PCP: Sarah Pizano MD Status: [facility] DATE OF SERVICE: 10/20/2015 DATE OF [...] indicated. Lidia Romero MD T: NTS JOB: [id number] 11/03/15 7353 <Electronically signed by Bubba Romero MD> Date Bubba Romero MD Co signer Signature (If Indicated): Date CC: Sarah Pizano MD; Bubba Romero Date Dictated: 10/20/15 1351 Date Transcribed: 10/20/15 135 Analytical Data Miner: Signed 20-Oct-2015 Cerv Spine 2 or 3 Views Result: Comments: See Note; NOTES: [facility] Imaging Services [address] [place] [address] Verdana 4d Cerv Spine 2 or 3 Views MR#: [id number] Acct: [id number] Name: JOSE J NOWAK Rep #: [id number] : 1955 F 60 From: Bartolome Patel MD PCP: Sarah Pizano MD Status: [facility] Study: Cerv Spine 2 or 3 Views Date of Exam: 10/20/15 Exam# [id number] Ordering Dr: Bubba Romero MD STUDY: X-RAY [...] Bartolome Patel MD at 13:45 EDT Tel [phone], Service support [phone], RAD/Cerv Spine 2 or 3 Views IMPRESSION: Fluoroscopic services provided for right 4 through C7 facet block. Electronically Signed: Bartolome Patel MD at 13:45 EDT Tel [phone], Service support [phone], CC: Sarah Pizano MD; Bubba Romero Analytical Data Miner: Signed 18-Aug-2015 Operative Report Result: Comments: See Note; NOTES: [facility] Medical Records Department [address] [place] [address] Operative Report MR#: [id number] Acct: [id number] Name: JOSE J COBIAN Rep #: [id number] : 1955 60 From: Bubba Romero MD PCP: Sarah Pizano MD Status: [facility] DATE OF SERVICE: 08/04/2015 DATE OF [...] d. Bubba Romero MD T: NTS JOB: [id number] 08/18/15 0927 <Electronically signed by Bubba Romero MD> Date Bubba copeland MD Cosigner Signature (If Indicated): Date CC: Sarah Pizano MD; Bubba Romero Date Dictated: 08/04/151432 Date Transcribed: 08/04/151432 Analytical Data Miner: Signed 04-Aug-2015 Cerv Spine 2 or 3 Views Result: Comments: See Note; NOTES: [facility] Imaging Services [address] [place] [address] Verdana 4d Cerv Spine 2 or 3 Views MR#: [id number] Acct: [id number] Name: JOSE J NOWAK Rep #: [id number] : 1955 F 60 From: Kirk Wall MD PCP: Sarah Pizano MD Status: [facility] Study: Cerv Spine 2 or 3 Views Date of Exam: 08/04/15 Exam# [id number] Ordering Dr: Osiel Romero MD STUDY: X-RAY [...] MD at 16:28 EST , Service support [phone], RAD/Cerv Spine 2 or 3 Views IMPRESSION: Needle positions as above. Electronically Signed: Kirk Wall MD at 16:28 EST , Service support [phone], CC: Sarah Pizano MD; Bubba Romero Analytical Data Miner: Signed 02-Jul-2015 Hip min 2 Views Result: Comments: See Note; NOTES: [facility] Imaging Services [address] [place] [address] Verdana 4d Hip min 2 Views MR#: [id number] Acct: [id number] Name: VIRAJ COBIAN Rep #: [id number] : 1955 F 60 From: Tuan Boyd MD PCP: Sarah Pizano MD Status: REG CLI Study: Hip min 2 Views Date of Exam: 07/02/15 Exam# [id number] Ordering Dr: Sarah Pizano MD S TUDY: [...] at 12:42 EST Tel , Service support [phone], Fax RAD/Hip min 2 Views IMPRESSION: Normal x-ray examination of the hip. Electronically Signed: Lucius Boyd MD at 12:42 EST Tel , Servic e support [phone], CC: Sarah Pizano MD Analytical Data Miner: Signed 24-Jun-2015 Pelvis 1 or 2 Views Result: Comments: See Note; NOTES: [facility] Imaging Services [address] [place] [address] Verdana 4d Pelvis 1 or 2 Views MR#: [id number] Acct: [id number] Name: JOSE J COBIAN Rep #: [id number] : 1955 F 60 From: Prosper Dumont MD PCP: Sarah Pizano MD Status: REG CLI Study: Pelvis 1 or 2 Views Date of Exam: 06/24/15 Exam# [id number] Ordering Dr: Tuan Pizano MD STUDY: X-RAY [...] at 11:20 EST Tel , Service support [phone], RAD/Pelvis 1 or 2 Views IMPRESS ION: There is narrowing with cortical sclerosis and osteophyte formation of the sacroiliac joint consistent with degenerative osteoarthritic changes. Electronically Signed: Lavell Dumont MD 08/26 at 11:20 EST Tel , Service support [phone], CC: Sarah Pizano MD Analytical Data Miner: Signed 07-Feb-2015 Chest PA and Lateral Result: Comments: See Note; NOTES: [facility] Imaging Services [address] [place] [address] Radiology Report MR#: [id number] Acct: [id number] Name: JOSE J COBIAN Rep #: [id number] : 1955 F 59 From: Baldemar Torres DO PCP: Sarah Pizano MD Status: REG CLI Study: Chest PA and Lateral Date of Exam: 02/07/15 Exam# [id number] Ordering Dr: Pamella Saavedra STUDY: X-RAY CHES [...] Baldemar Torres DO at 19:14 EDT Tel [phone], Service support , RAD/Chest PA and Lateral IMPRESSION: No acute cardiopulmonary disease or interval change. Electronically Signed: Baldemar Torres DO at 19: 14 EDT Tel [phone], Service support [phone], CC: Pamella Saavedra; Sarah Pizano MD Analytical Data Miner: Signed 05-Feb-2014 Katie [facility] Digital [employer] CAD Result: Comments: See Note; NOTES: [facility] Imaging Services [address] [place] [address] Breast Imaging Report MR#: [id number] Acct: [id number] Name: JOSE J COBIAN Rep #: [id number] : 1955 F 58 From: Bartolome Patel MD PCP: Sarah Pizano MD Status: REG CLI Exam# [id number] Ordering Dr: Sarah Pizano MD MAMMOGRAPHY - [...] Bartolome Patel MD at 13:16 EDT Tel [phone], Service support [phone], CC: Sarah Pizano MD Analytical Data Miner: Signed 06-Jun-2013 Abdomen/Pelvis with Contrast Result: Comments: See Note; NOTES: [facility] Imaging Services [address] [place] [address] CAT Scan Report MR#: [id number] Acct: [id number] Name: JOSE J COBIAN Rep #: [id number] : 1955 F 58 From: Tuan Atkins MD PCP: Sarah Pizano MD Status: REG CLI Study: Abdomen/Pelvis with Contrast Date of Exam: 06/06/13 Exam# [id number] Ordering Dr: Sarah Pizano MD STUD Y: [...] M.D. 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 [...] smoker Vital Signs Date Test Result Details 63-Bpf-278756:36 Temperature 97.9 f Comments: Method: Temporal Pulse [...] 03-Apr-20188:00 Protime w/INR Fingerstick Comments: [facility] LaboratoryPoint of Mkgl[address] [place], [place] [id number] INR ISTAT 1.10 (Normal) Comments: Critical Value > 3.5 PROTIME ISTAT 13.7 {SEC} (Normal) Range: 11.9-14.4 Comments: Reference Range 11.9 - 14.4 :23 Amylase 89 U/L (Normal) Comments: PATIENT NOT FASTINGPERFORMED BY: [facility]6370 [facility] [id number] Range: 31-124 :23 CBC With Differential/Platelet Comments: PATIENT NOT FASTINGPERFORMED BY: [facility]6[address] [facility] [id number] Immature Grans (Abs) 0.0 {x10E3/uL} (Normal) Range: [...] 3.77-5.28 WBC 4.2 {x10E3/uL} (Normal) Range: 3.4-10.8 69-Fgc-284767:23 Comp. Metabolic Panel (14) Comments: PATIENT NOT FASTINGPERFORMED BY: [facility]trainInscription [facility] Health CenterWfutnp9888 [facility] [id number] ALT (SGPT) 18 [iU]/L (Normal) Range: 0-32 [...] U/L (Abnormal) Comments: PATIENT NOT FASTINGPERFORMED BY: boomtrainInscription House Health CenterDwzyyx9725 [facility] [id number] 4:23 Range: 14-72 42-Knc-734450:23 Urinalysis, Routine Comments: PATIENT NOT FASTINGPERFORMED BY: boomtrain Ccqquk3746 [facility] [id number] Microscopic Examination MICNIP (Normal) Comments: Microscopic not indicated and not performed. Nitrite, Urine Negative (Normal) Urobilinogen,Semi-Qn 1.0 mg/dL (Normal) Range: 0.2-1.0 Bilirubin Negative (Normal) Occult Blood Negative (Normal) Ketones Negative (Normal) Glucose Negative (Normal) Protein Negative (Normal) WBC Esterase Negative (Normal) Appearance Clear (Normal) Urine-Color Yellow (Normal) pH 6.0 (Normal) Range: 5.0-7.5 Specific Harper 1.020 (Normal) Range: 1.005-1.030 :42 Protime w/INR Fingerstick Comments: [facility] LaboratoryPoint of Agts[address] [place], [place] [address] INR ISTAT 1.00 (Normal) Comments: Critical Value > 3.5 PROTIME ISTAT 12.4 {SEC} (Normal) Range: 11.9-14.4 Comments: Reference Range 11.9 - 14.4 65-Dju-001611:14 CBC W/Diff, Automated Comments: [facility] [address] [place], [place], [address] ; fu 6-19 Absolute Lymph 1.62 {X10_3/ul} [...] 4.2-5.4 WBC 4.7 K/mm3 (Normal) Range: 4.4-11.0 75-Ujd-363716:14 Comprehensive Metabolic Profil Comments: [facility] [address] [place], [address] GAP 5 (Normal) Range: 5-15 CO2 29.0 [...] A.D.A. criteria.Please note revised GLUCOSE reference range /02/2018. 69-Cno-876969:14 Ferritin Comments: [facility] [address] [place], [address] FERRITIN 82 ng/mL (Normal) Range: 8-252 48-Xvc-781102:14 Vitamin B12 558 pg/mL (Normal) Comments: [facility] [address] [place], [address] Range: 211-911 :07 Protime w/INR Fingerstick Comments: [facility] LaboratoryPoint [place] [address] [place] [address] INR ISTAT 1.30 (Normal) Comments: Critical Value > 3.5 PROTIME ISTAT 14.9 {SEC} (Abnormal) Range: 11.9-14.4 Comments: Reference Range 11.9 - 14.4 08-Aug-20179:10 Protime w/INR Fingerstick Comments: [facility] LaboratoryPoint [place] [address] [place] [address] INR ISTAT 1.10 (Normal) Comments: Critical Value > 3.5 PROTIME ISTAT 13.0 {SEC} (Normal) Range: 11.9-14.4 Comments: Reference Range 11.9 - 14.4 63-Vgs-679258:32 Culture, Blood (WB) Comments: [facility] [address] [place], [address] CUB See Note (Normal) Comments: Has pt arrived? Y Comments: DR. Mello growth in 5 days. 76-Reg-765173:25 CBC W/Diff, Automated Comments: Comments: DR Cui [facility] [address] [place], [address] Absolute Lymph 1.68 {X10_3/ul} (Normal) Range: 0.83-4.51 [...] 4.2-5.4 WBC 3.9 K/mm3 (Abnormal) Range: 4.4-11.0 90-Dla-519914:25 Culture, Blood (WB) Comments: [facility] [address] [place], [address] CUB See Note (Normal) Comments: Has pt arrived? Y Comments: DR. Mello growth in 5 days. 07-Kom-913899:25 Erythrocyte Sed Rate Comments: Comments: [facility] [address] [place], [address] SED RATE 8 mm/h (Normal) Range: 0-30 25-Wir-269896:25 Ferritin Comments: Comments: [facility] [address] [place], [address] FERRITIN 83 ng/mL (Normal) Range: 8-252 32-Ebb-488163:25 Vitamin D,25 Hydroxy Comments: Order Date: 07/20/17[facility] Osbpxmaqzb[address] Mén[place], [address] Vitamin D 25-OH 34.6 ng/mL (Normal) Comments: Vitamin D 25(OH) Status Range Deficiency <20 ng/mL (50nmol/L) Insuffciency 20 - 30 ng/mL (50 - 75 nmol/L) Sufficiency 30 - 100 ng/mL (75 - 250 nmol/L) Toxicity >100 ng/mL (>250 nmol/L) 66-Mtw-348534:10 Culture, Urine Comments: [facility] M[address]pyza[address]BRITTANY [place]én[place], [id number] CUUR See Note (Normal) Comments: Order Date: 07/20/17 Comments: DR PIZANO Urine CultureCulture exhibits no growth. 52-Qpp-619034:10 Urinalysis, Complete Comments: Order Date: 07/20/17Has pt arrived? YComments: DR Morales was Urine Obtained? CLEAN [facility] Chvyxqsnti[address]24Kyle [place], [phone] MUCUS, URINE 0 SEEN {/hpf} (Normal) BACTERIA [...] (Normal) CLARITY Clear (Normal) COLOR Yellow (Normal) 3-Xfj-402141:48 Protime w/INR Fingerstick Comments: [place] [address] [place] [address] INR ISTAT 1.10 (Normal) Comments: Critical Value > 3.5 PROTIME ISTAT 13.2 {SEC} (Normal) Range: 11.9-14.4 Comments: Reference Range 11.9 - 14.4 :30 Protime w/INR Fingerstick Comments: [place] [address] [place] [address] INR ISTAT 1.10 (Normal) Comments: Critical Value > 3.5 PROTIME ISTAT 12.8 {SEC} (Normal) Range: 11.9-14.4 Comments: Reference Range 11.9 - 14.4 :44 INR Fingerstick Comments: [place] [address] [place] [address] INR ISTAT 1.10 (Normal) Comments: Critical Value > 3.5 :44 Prothrombin Time Fingerstick Comments: [place] [address] [place] [address] PROTIME ISTAT 13.6 {SEC} (Normal) Range: 11.9-14.4 Comments: Reference Range 11.9 - 14.4 02-Exc-752193:17 HgA1C , Office (80191) HgA1C , Office 5.7 % (Normal) Range: 4.6 - 7.1 :08 Metabolic Panel, Basic Comments: PATIENT NOT FASTINGPERFORMED BY: [facility] CenterRwvmqw0776 [facility] [id number] (360[address]) Calcium, Serum 9.1 mg/dL (Normal) Range: 8.7-10.3 [...] Glucose, Serum 97 mg/dL (Normal) Range: 65-99 72-Cgp-293986:08 CBC (Auto) ([address]) Comments: PATIENT NOT FASTINGPERFORMED BY: boomtrainJonathan Ville [address] [facility] [id number] Platelets 306 {x10E3/uL} (Normal) Range: 150-379 RDW 15.6 % (Abnormal) Range: 12.3-15.4 MCHC 32.9 g/dL (Normal) Range: 31.5-35.7 MCH 28.3 pg (Normal) Range: 26.6-33.0 MCV 86 fL (Normal) Range: 79-97 Hematocrit 35.9 % (Normal) Range: 34.0-46.6 Hemoglobin 11.8 g/dL (Normal) Range: 11.1-15.9 RBC 4.17 {x10E6/uL} (Normal) Range: 3.77-5.28 WBC 4.6 {x10E3/uL} (Normal) Range: 3.4-10.8 :08 URINALYSIS W/O MICRO (63038) Comments: PATIENT NOT FASTINGPERFORMED BY: [facility] CenterZaxukx2945 [facility] [id number] Microscopic Examination MICNIP (Normal) Comments: Microscopic not indicated and not performed. Nitrite, Urine Negative (Normal) Urobilinogen,Semi-Qn 0.2 mg/dL (Normal) Range: 0.2-1.0 Bilirubin Negative (Normal) Occult Blood Negative (Normal) Ketones Negative (Normal) Glucose Negative (Normal) Protein Negative (Normal) WBC Esterase Negative (Normal) Appearance Clear (Normal) Urine-Color Yellow (Normal) pH 6.0 (Normal) Range: 5.0-7.5 Specific Harper 1.013 (Normal) Range: 1.005-1.030 06-Aif-876550:08 COMPLEMENT C4 (75128) Comments: PATIENT NOT FASTINGPERFORMED BY: [facility]6370 [facility] [id number] Complement C4, Serum 16 mg/dL (Normal) Range: 14-44 00-Iyz-836189:08 COMPLEMENT C3 (52125) Comments: PATIENT NOT FASTINGPERFORMED BY: [facility]6370 [facility] [id number] Complement C3, Serum 103 mg/dL (Normal) Range: 82-167 03-Jnm-975398:08 DNA ANTIBODY-NATV/DBL ST (02308) Comments: PATIENT NOT FASTINGPERFORMED BY: [place] [address] [facility] [id number] test code 868673 Anti-DNA (DS) Ab Qn <1 {IU/mL} (Normal) Range: 0-9 Comments: Negative <5 Equivocal 5 - 9 Positive >9 42-Wcq-540740:08 Sed Rate Erythrocyte (59557) Comments: PATIENT NOT FASTINGPERFORMED BY: [facility]6370 [facility] [id number] Sedimentation Rate-Westergren 4 mm/h (Normal) Range: 0-40 26-Uay-166267:08 DESIRAE (ANTINUCLEAR ANTIBODY) Comments: PATIENT NOT FASTINGPERFORMED BY: [facility]6370 [facility] [id number] (22410) DESIRAE Direct Negative (Normal) 4-Csu-791851:04 Prothrombin Time w/INR Comments: [facility] [address] [place], [place], [address] INR 1.5 (Normal) PROTIME 17.8 s (Abnormal) Range: 11.7-14.9 97-Ula-829419:45 Prothrombin Time w/INR Comments: [facility] [address] [place], [place], [address]99) INR 3.0 (Normal) PROTIME 30.3 s (Abnormal) Range: 11.7-14.9 09-Oct-20168:51 Serum Creatinine AND GFR Comments: [facility] [address] [place], [address] EST GFR - AA 90 mL/min (Normal) Comments: GFR Calc EST GFR 74 mL/min (Normal) Comments: Non- GFR Calc CREAT,SERUM 0.83 mg/dL (Normal) Range: 0.55-1.02 Comments: The validity of the calculated GFR AND GFRAA in patients over70 years has not been determined. Clinical correlation isessential. :21 LIPASE (52580) Comments: PATIENT NOT FASTINGPERFORMED BY: [facility] Jqdfhg8277 [address]ila RoadDublin [place] [id number] Lipase, Serum 46 U/L (Normal) Range: 14-72 Comments: Please note reference interval change :21 AMYLASE (94907) Comments: PATIENT NOT FASTINGPERFORMED BY: [facility] Pfesbf4492 Vila RoadDublin [place] [id number] Amylase, Serum 65 U/L (Normal) Range: 31-124 :21 CALCIFIDIOL (50320) VIT D 25 Comments: PATIENT NOT FASTINGPERFORMED BY: [facility] Fcykzt3664 [address]ila RoadDublin [place] [id number] Vitamin D, 25-Hydroxy 25.8 ng/mL (Abnormal) Range: 30.0-100.0 Comments: Vitamin D deficiency has been defined by the [place] of[employer] and an Endocrine Society practice guideline as alevel of serum 25-OH vitamin D less than 20 ng/mL (1,2).The Endocrine Society went on to further define vitamin Dinsufficiency as a level between 21 and 29 ng/mL (2).1. IOM ([place] of [employer]). 2010. Dietary reference intakes for calcium and D. Lal [place]: The National Academies Press.2. Candelaria MF, Janey NC, Rahul-Everett GROSS, et al. Evaluation, treatment, and prevention of vitamin D deficiency: an Endocrine Society clinical practice guideline. JCEM. 2010; 96(7):1911-30. :21 Ferritin (01385) Comments: PATIENT NOT FASTINGPERFORMED BY: [facility] Pweiyc9472 Vila RoadDublin [place] [id number]; fu 10-27 db Ferritin, Serum 10 ng/mL (Abnormal) Range: 15-150 3-Bca-775379:21 Vitamin B-12 (cyanocobalamin) Comments: PATIENT NOT FASTINGPERFORMED BY: [facility]6370 [facility] [id number] (01603) Vitamin B12 1888 pg/mL (Abnormal) Range: 211-946 3-Wfi-587084:21 METABOLIC PANEL, COMPREHENSIVE Comments: PATIENT NOT FASTINGPERFORMED BY: [facility]6370 [facility] [id number] (12365) ALT (SGPT) 11 [iU]/L (Normal) Range: 0-32 [...] Glucose, Serum 101 mg/dL (Abnormal) Range: 65-99 5-Ysp-454227:21 CBC with auto diff Comments: PATIENT NOT FASTINGPERFORMED BY: MONA [employer]6370 [facility]ila[facility] [id number] Information: CLIENT DRAW (23442) Immature Grans (Abs) 0.0 {x10E3/uL} (Normal) Range: [...] 3.77-5.28 WBC 5.7 {x10E3/uL} (Normal) Range: 3.4-10.8 16-Ecd-134347:14 Prothrombin Time w/INR Comments: [facility] [address] [place], [place], [address] INR 1.9 (Normal) Comments: ADDENDA: handled by cardio PROTIME 21.0 s (Abnormal) Range: 11.7-14.9 20-Cvv-770831:57 HEPATIC FUNCTION PANEL Comments: PATIENT NOT FASTINGPERFORMED BY: [facility]6370 [facility] [id number] (92985) ALT (SGPT) 15 [iU]/L (Normal) Range: 0-32 AST (SGOT) 20 [iU]/L (Normal) Range: 0-40 Alkaline Phosphatase, S 114 [iU]/L (Normal) Range: 39-117 Bilirubin, Direct 0.10 mg/dL (Normal) Range: 0.00-0.40 Comments: Please note reference interval change Bilirubin, Total <0.2 mg/dL (Normal) Range: 0.0-1.2 Albumin, Serum 4.9 g/dL (Abnormal) Range: 3.6-4.8 Protein, Total, Serum 7.1 g/dL (Normal) Range: 6.0-8.5 :57 IGA/IGD/IGG/IGM-EACH (41263) Comments: PATIENT NOT FASTINGPERFORMED BY: [facility]6370 [facility] [id number] Immunoglobulin E, Total 50 {IU/mL} (Normal) Range: 0-100 Immunoglobulin M, Qn, Serum 43 mg/dL (Normal) Range: 26-217 Immunoglobulin A, Qn, Serum 131 mg/dL (Normal) Range: 87-352 Immunoglobulin G, Qn, Serum 753 mg/dL (Normal) Range: 700-1600 :57 EBV ACUTE PFOF IgG/IgM Comments: PATIENT NOT FASTINGPERFORMED BY: [facility]6370 [facility] [id number] (60169) Interpretation: [facility] (Normal) Comments: EBV Interpretation Chart . [...] <36.0 Equivocal 36.0 - 43.9 Positive >43.9 05-Fpv-720307:57 LDH (LD) (LACTATE DEHYDROGENASE) Comments: PATIENT NOT FASTINGPERFORMED BY: [address] [id number] ([address]491) LDH 191 [iU]/L (Normal) Range: 119-226 :57 HIV-1 & 2 ANTBDY-SNGL SHAWN Comments: PATIENT NOT FASTINGPERFORMED BY: [address] [id number] (75935) HIV Screen 4th Generation wRfx Non Reactive (Normal) :57 HEPATITIS PANEL (41210) Comments: PATIENT NOT FASTINGPERFORMED BY: [place] [address] [facility] [id number] Hep C Virus Ab 0.1 {s/co_ratio} (Normal) Range: 0.0-0.9 Comments: Negative: < 0.8 Indeterminate: 0.8 - 0.9 Positive: > 0.9 . The CDC recommends that a positive HCV antibody result be followed up with a HCV Nucleic Acid Amplification test (842219). Hep B Core Ab, IgM Negative (Normal) HBsAg Screen Negative (Normal) Hep A Ab, IgM Negative (Normal) :56 Culture, Blood (WB) Comments: [facility] [address] [place], [place], [id number] CUB See Note (Normal) Comments: BCNo growth [...] Antibody Present - Antibody Ab sentPerformed at: [address] [id number] Director: Neo Campos PhD, Phone: [phone] EB-NAg [id number] 136.0 U/mL (Abnormal) Range: 0.0-17.9 Comments: Negative <18.0 Equivocal 18.0 - 21.9 Positive >21.9 EB-VCA [id number] 255.0 U/mL (Abnormal) Range: 0.0-17.9 Comments: Negative <18.0 Equivocal 18.0 - 21.9 Positive >21.9 EB-EA IgG 57717 18.4 U/mL (Abnormal) Range: 0.0-8.9 Comments: Hepatitis A, Hepatitis C and HIV antibodies may cross-reactwith this assay. Negative < 9.0 Equivocal 9.0 - 10.9 Positive >10.9 EB-VCA SwF38780 36.1 U/mL (Abnormal) Range: 0.0-35.9 Comments: A second sample should be collected and tested no less than2-4 weeks. Negative <36.0 Equivocal 36.0 - 43.9 Positive >43.9 0-Ceo-191263:56 Ferritin Comments: [facility] [address] [place] [address], [id number] FERRITIN 34 ng/mL (Normal) Range: 8-252 4-Hjh-151190:56 Vitamin D,25 Hydroxy Comments: [facility] [address] [place], [address] Vitamin D 25-OH 29.2 ng/mL (Normal) Comments: Vitamin D 25(OH) Status Range Deficiency <20 ng/mL (50nmol/L) Insuffciency 20 - 30 ng/mL (50 - 75 nmol/L) Sufficiency 30 - 100 ng/mL (75 - 250 nmol/L) Toxicity >100 ng/mL (>250 nmol/L) 9-Cee-102726:03 INR Fingerstick Comments: [place] [address] [place] [address] INR ISTAT 1.00 (Normal) Comments: Critical Value > 3.5 6-Ect-641845:03 Prothrombin Time Fingerstick Comments: [place] [address] [place] [address] PROTIME ISTAT 12.1 {SEC} (Normal) Range: 11.9-14.4 Comments: Reference Range 11.9 - 14.4 51-Itx-301964:55 Prothrombin Time w/INR Comments: [place] [address] [place], [address] INR 2.6 (Normal) PROTIME 26.7 s (Abnormal) Range: 11.7-14.9 :44 GRETTA CULTURE-OTHER (52924) Comments: PATIENT NOT FASTINGPERFORMED BY: [facility]pocketAt[facility] [id number] Information: THROAT SRC:TH Result 1 RRF (Normal) Comments: Routine respiratory rajwinder Upper Respiratory Culture Final report (Normal) 49-Lsm-253158:31 Rapid Flu (08978 x 2) Influenza A Ag negative (Normal) 55-Tpj-401803:31 Rapid Strep Test, Office (03138) Rapid Strep Test, Office Negative (Normal) 22-Qfy-737248:46 Microscopic Examination Comments: PATIENT NOT FASTINGPERFORMED BY: Sellfy6370 [facility]dAt[facility] [id number] Bacteria Few (Normal) Mucus Threads Present (Normal) Crystal Type Calcium Oxalate (Normal) Crystals Present (Abnormal) Epithelial Cells (non renal) 0-10 {/hpf} (Normal) Range: 0 - 10 RBC 0-2 {/hpf} (Normal) Range: 0 - 2 WBC 0-5 {/hpf} (Normal) Range: 0 - 5 36-Fqc-307363:46 URINALYSIS (59946) Comments: PATIENT NOT FASTINGPERFORMED BY: [facility]6370 [facility] [id number] Microscopic Examination See below: (Normal) Comments: Microscopic was indicated and was performed. Nitrite, Urine Negative (Normal) Urobilinogen,Semi-Qn 1.0 mg/dL (Normal) Range: 0.2-1.0 Bilirubin Negative (Normal) Occult Blood Negative (Normal) Ketones Negative (Normal) Glucose Negative (Normal) Protein Negative (Normal) WBC Esterase 1+ (Abnormal) Appearance Clear (Normal) Urine-Color Yellow (Normal) pH 6.0 (Normal) Range: 5.0-7.5 Specific Harper 1.018 (Normal) Range: 1.005-1.030 :46 CBC WITH MANUAL DIFF (22862) Comments: PATIENT NOT FASTINGPERFORMED BY: boomtrainP[facility] CenterOldrbz2643 [facility] [id number] Immature Grans (Abs) 0.0 {x10E3/uL} (Normal) Range: [...] 3.77-5.28 WBC 4.5 {x10E3/uL} (Normal) Range: 3.4-10.8 90-Dyl-438511:46 Ferritin (90013) Comments: PATIENT NOT FASTINGPERFORMED BY: [employer]6370 [facility] [id number] Ferritin, Serum 10 ng/mL (Abnormal) Range: 15-150 50-Ewd-787840:46 Metabolic Panel, Comprehensive Comments: PATIENT NOT FASTINGPERFORMED BY: [employer]6370 [facility] [id number] (41995) ALT (SGPT) 18 [iU]/L (Normal) Range: 0-32 [...] Glucose, Serum 86 mg/dL (Normal) Range: 65-99 99-Bjk-826641:46 AMYLASE (70552) Comments: PATIENT NOT FASTINGPERFORMED BY: [facility]Co[facility] CenterCmscly7914 [facility] [id number] Amylase, Serum 81 U/L (Normal) Range: 31-124 52-Hgv-480526:46 LIPASE (07072) Comments: PATIENT NOT FASTINGPERFORMED BY: [facility] Uozaja2831 [facility] [id number] Lipase, Serum 79 U/L (Abnormal) Range: 0-59 05-Lqx-285845:33 Prothrombin Time w/INR Comments: Order Date: 03/23/16Order Date: 03/23/16Interface Comments: Reason:Order Date: 03/23/16[facility] [address] [place], [place], [address] INR 2.0 (Normal) PROTIME 22.3 s (Abnormal) Range: 11.7-14.9 :36 Prothrombin Time w/INR Comments: [facility] [address] [place], [place], [address] INR 1.4 (Normal) PROTIME 17.1 s (Abnormal) Range: 11.7-14.9 99-Ocw-687542:20 Prothrombin Time w/INR Comments: Order Date: 05/11/16Order Info: 6301-6 - *PT/INR - Standing OrderComments: Standing Order-Reason:Order Date: 05/11/16Order Info: 6301-6 - *PT/INR - Standing OrderComments: Standing Order- Reason:[facility] [address] [place], [place], [address] INR 1.2 (Normal) PROTIME 14.8 s (Normal) Range: 11.7-14.9 :50 Prothrombin Time w/INR Comments: Order Date: 05/11/16Order Info: 6301-6 - *PT/INR - Standing OrderComments: Standing Order-Reason:Order Date: 05/11/16Order Info: 6301-6 - *PT/INR - Standing OrderComments: Standing Order-Reason:Order Da te: 05/11/16Order Info: 6301-6 - *PT/INR - Standing OrderComments: Standing Order-Reason:[facility] [address] [place], [address] INR 1.2 (Normal) PROTIME 15.1 s (Abnormal) Range: 11.7-14.9 :00 Culture, Nose Comments: [facility] [address] [place], [address] CUN See Note (Normal) Comments: Comments: NARESGram StainGram Stain Rare White Blood Cells 1+ Epithelial cells 4+ Gram positive rods Nasoph. CultNo Haemophilus, Streptococcus pneumoniae, beta-hemolytic Streptococcus or Staphylococcus aureus isolated. :00 Culture, Throat Comments: [facility] [address] [place], [address] CUT See Note (Normal) Comments: Comments: NARESCulture, ThroatNo Haemophilus, Streptococcus pneumoniae, beta-hemolytic Streptococcus or Staphylococcus aureus isolated. 68-Ydp-129086:05 Rapid Flu (30305 x 2) Influenza A Ag neg (Normal) :45 CBC W/Diff, Automated Comments: Order Date: 03/18/16Order Date: 03/18/16[facility] [address] [place], [address] Absolute Lymph 2.95 {X10_3/ul} (Normal) Range: 0.83-4.51 [...] Specimen #1, #2 or #3? 1[facility] [address] [place] [address], [id number] CKRI 3.2 % (Abnormal) Range: 0.0-1.4 Comments: RELATIVE INDEX >1.5% IS PRESUMPTIVELY POSITIVE CPKMB 1.8 ng/mL (Normal) Range: 0.0-5.0 Comments: CK-MB and RI Interpretation MB Relative Index Non-AMI <or= 5 NA Indeterminate > 5 <or= 4 AMI > 5 > 4 CPK TOTAL 57 U/L (Normal) Range: 26-192 :45 Erythrocyte Sed Rate Comments: Order Date: 03/18/16Order Date: 03/18/16[facility] [address] [place] [address], [address] SED RATE 1 mm/h (Normal) Range: 0-30 :45 Myoglobin, Serum Comments: Order Date: 03/18/16[facility] (refer to report for specific site)refer to report for address and phone number Myoglobin, Ser 23 ng/mL (Abnormal) Range: 25-58 Comments: Performed at: - [facility] [address] [id number] Director: Neo Campos PhD, Phone: [phone] 12-Lwx-824101:45 Troponin-I Comments: Order Date: 03/18/16TROP ADDED 03/19/16Order Date: 03/18/16'TROP' Serial specimen #1, #2, #3, or #4: 1'CKMB' Serial Specimen #1, #2 or #3? [address] [place] [address] Fxsfvoktct2211 [place], [address] TROPONIN-I < 0.02 ng/mL (Normal) Comments: TROPONIN-I EXPECTED VALUES <0.05 NEGATIVE 0.06 - 0.59 AT RISK OF NC > OR = 0.60 SUGGEST NC 78-Tin-183765:00 Basic Metabolic Profile (BMP) Comments: 'TROP' Serial specimen #1, #2, #3, or #4: [address] [place] [address] [address]othy [place], [place], [id number] GAP 6 (Normal) Range: 5-15 CO2 26.0 [...] 7-18 GLU 101 mg/dL (Normal) Range: 70-110 42-Vbd-477233:00 CBC W/Diff, Automated Comments: [facility] [address] [place], [place], [id number] Absolute Lymph 2.27 {X10_3/ul} (Normal) Range: 0.83-4.51 [...] 4.2-5.4 WBC 4.9 K/mm3 (Normal) Range: 4.4-11.0 89-Kin-481024:00 Lipase Comments: 'TROP' Serial specimen #1, #2, #3, or #4: [facility] X[address]ssvsajn[address] [place], [address] LIPASE 351 U/L (Normal) Range: 73-393 07-Ibj-004636:00 Liver Profile Comments: 'TROP' Serial specimen #1, #2, #3, or #4: [address] [place] [address] Edjqqcraud4180Kyle [place], [address] D BILI 0.15 mg/dL (Normal) Range: 0.00-0.30 T BILI 0.30 mg/dL (Normal) Range: 0.20-1.00 ALT 23 U/L (Normal) Range: 12-78 ALK P 81 U/L (Normal) Range: 50-136 AST 24 U/L (Normal) Range: 15-37 GLOB 2.8 g/dL (Normal) Range: 2.3-3.5 ALB 4.0 g/dL (Normal) Range: 3.4-5.0 T PROT 6.8 g/dL (Normal) Range: 6.4-8.2 83-Qio-581568:00 Troponin-I Comments: 'TROP' Serial specimen #1, #2, #3, or #4: [address] [place] [address] [address] [place], [address] TROPONIN-I < 0.02 ng/mL (Normal) Comments: TROPONIN-I EXPECTED VALUES <0.05 NEGATIVE 0.06 - 0.59 AT RISK OF NC > OR = 0.60 SUGGEST NC 15-Glu-305768:08 Osmolality, Urine Comments: Order Date: 02/16/16Has pt arrived? [address] [place], [place], [id number] OSMOLALITY,UR 310 {mOsm/KG} (Normal) Comments: OSMOLALITY URINE REFERENCE INTERVALS 24-hour Urine 300 - 900 mOsm/kg Random Urine 50 - 1400 mOsm/kg After 12 Hr fluid restriction >850 mOsm/kg 92-Zwt-318505:50 Amylase Comments: [place] [address] [address] [address] [place], [place], [address] PREMA 80 U/L (Normal) Range: 25-115 59-Zub-420744:50 CBC W/Diff, Automated Comments: [address], [address] Absolute Lymph 1.51 {X10_3/ul} (Normal) [...] 4.2-5.4 WBC 4.3 K/mm3 (Abnormal) Range: 4.4-11.0 27-Umv-672958:50 Comprehensive Metabolic Profil Comments: [facility] [address] [place], [address] GAP 6 (Normal) Range: 5-15 [...] 7-18 GLU 98 mg/dL (Normal) Range: 70-110 41-Mss-222706:50 Lipase Comments: [address] [place] Garcia, [address] LIPASE 424 U/L (Abnormal) Range: 73-393 87-Uzf-353651:50 Osmolality, Serum Comments: [address] [place], [id number] OSMOLALITY,SER 275 {mOsm/KG} (Normal) Range: 275-295 19-Ihs-963480:50 Vitamin B12 489 pg/mL (Normal) Comments: [address] [place], [address] ; will review on 02/19 Range: 211-911 79-Yzh-103712:50 Vitamin D,25 Hydroxy Comments: [address] DarioeTimothy [place], [id number] Vitamin D 25-OH 37.6 ng/mL (Normal) Comments: Vitamin D 25(OH) Status Range Deficiency <20 ng/mL (50nmol/L) Insuffciency 20 - 30 ng/mL (50 - 75 nmol/L) Sufficiency 30 - 100 ng/mL (75 - 250 nmol/L) Toxicity >100 ng/mL (>250 nmol/L) 12-Jco-16199:00 Ferritin Comments: [facility] [address] [place], [address] FERRITIN 13 ng/mL (Normal) Range: 8-252 :00 Lipid Profile Comments: [facility] Ed[address] [place], [id number] VLDL 28 mg/dL (Normal) Range: 5-40 LDL [...] 200-240 mg/dL Borderline >240 mg/dL High Risk 3-Qto-166725:40 CBC W/Diff, Automated Comments: Order Date: 09/08/15Has pt arrived? [facility] X[address]dwovrjl[address] [place], [id number] Absolute Lymph 1.80 {X10_3/ul} (Normal) Range: 0.83-4.51 [...] 4.2-5.4 WBC 4.4 K/mm3 (Normal) Range: 4.4-11.0 5-Vua-855320:40 Comprehensive Metabolic Profil Comments: Order Date: 09/08/15Has pt arrived? [facility] F[address]msraoucz[address] [place], [address] GAP -1 (Abnormal) Range: 5-15 CO2 30.0 [...] 7-18 GLU 97 mg/dL (Normal) Range: 70-110 0-Ijd-839652:16 Amylase Comments: [facility] Gnoxcnkuxp0882 [place], [address] PREMA 95 U/L (Normal) Range: 25-115 1-Zty-256121:16 Lipase Comments: [facility] Zkkjdufggp4290 [place], [address] LIPASE 568 U/L (Abnormal) Range: 73-393 6-Hfx-412330:29 Influenza A&B Viral Comments: PATIENT NOT FASTINGPERFORMED BY: boomtrain[address] [id number] Information: SRC:NOS [id number] Culture (19086) Viral Culture,Rapid,Influenza FLUABN (Normal) Comments: Negative:No Influenza A or B detected. 9-Ltn-016500:49 Rapid Flu (46002 x 2) Influenza A Ag neg (Normal) 39-Xpx-744732:01 CBC (Auto) (11324) Comments: now and in six months (approximately); PATIENT WAS FASTINGPERFORMED BY: hipix[address] [id number] Information: [id number], [id number] Platelets 357 {x10E3/uL} (Normal) Range: 150-379 RDW 14.6 % (Normal) Range: 12.3-15.4 MCHC 34.1 g/dL (Normal) Range: 31.5-35.7 MCH 29.8 pg (Normal) Range: 26.6-33.0 MCV 88 fL (Normal) Range: 79-97 Hematocrit 37.0 % (Normal) Range: 34.0-46.6 Hemoglobin 12.6 g/dL (Normal) Range: 11.1-15.9 RBC 4.23 {x10E6/uL} (Normal) Range: 3.77-5.28 WBC 5.7 {x10E3/uL} (Normal) Range: 3.4-10.8 93-Kgs-863985:01 Metabolic Panel, Basic Comments: now; PATIENT WAS FASTINGPERFORMED BY: [employer]70 [facility] [place] [id number] (37777) Calcium, Serum 9.1 mg/dL (Normal) Range: 8.7-10.2 [...] Glucose, Serum 102 mg/dL (Abnormal) Range: 65-99 34-Xym-581987:01 CALCIFIDIOL (41259) VIT D 25 Comments: now and in six months (approximately); PATIENT WAS FASTINGPERFORMED BY: XOS DigitalCoBoomiVjfsbi9739 [facility] [place] [id number] Vitamin D, 25-Hydroxy 32.8 ng/mL (Normal) Range: 30.0-100.0 Comments: Vitamin D deficiency has been defined by the [place] of[place]icine and an Endocrine Society practice guideline as alevel of serum 25-OH vitamin D less than 20 ng/mL (1,2).The Endocrine Society went on to further define vitamin Dinsufficiency as a level between 21 and 29 ng/mL (2).1. IOM ([place] of Medicine). 2010. Dietary reference intakes for calcium and D. [place]: The National Academies Press.2. Candelaria MF, Janey ELIAS, Yolande GROSS, et al. Evaluation, treatment, and prevention of vitamin D deficiency: an Endocrine Society clinical practice guideline. JCEM. 2010; 96(7):1911-30. 5-Agw-053752:06 Sputum Culture (43584) Comments: PATIENT NOT FASTINGPERFORMED BY: [facility] Pxrwfy3544 [facility] [id number] Information: [id number] Result 1 RRF (Normal) Comments: Routine respiratory rajwinder Lower Respiratory Culture Final report (Normal) 4-Fsm-542672:12 Rapid Flu (04237 x 2) Influenza A Ag neg a and b (Normal) 32-Kza-331836:01 Urinalysis, Office (96977) UA - LEUKOCYTE ESTERASE Negative (Normal) UA - NITRITE Negative (Normal) URINE UROBILINGN YANCI TIMED Normal mg/dL (Normal) UA - PROTEIN Negative mg/dL (Normal) UA - PH 6.0 (Normal) Comments: 5.5 UA - BLOOD Negative (Normal) UA - SPECIFIC GRAVITY 1.025 (Normal) UA - KETONES Negative mg/dL (Normal) UA - BILIRUBIN Negative (Normal) UA - GLUCOSE Negative (Normal) 02-Rva-415802:40 Lipase (24211) Comments: PATIENT NOT FASTINGPERFORMED BY: [facility] Ppxihz3978 [facility] [id number] Lipase, Serum 113 U/L (Abnormal) Range: 0-59 62-Tqw-195938:40 Amylase (60222) Comments: PATIENT NOT FASTINGPERFORMED BY: [facility] Mydegi3931 [facility] [id number] Information: [id number] Amylase, Serum 104 U/L (Normal) Range: 31-124 1-Dbq-268763:54 Sputum Culture (11090) Comments: PATIENT NOT FASTINGPERFORMED BY: [facility] Dccult5861 [facility] [id number] Information: SRC: THROAT [id number] Result 1 RRF (Normal) Comments: Routine respiratory rajwinder Lower Respiratory Culture Final report (Normal) 0-Urh-903880:55 Pathology Report Comments: PERFORMED BY: KWCYT [facility] [place] Cyto Vuufl25706 [facility] [id number] BY: [facility] Syugzyn[address] [id number] Information: [id number] See MATER Comments: Material submitted: .PUNCH BIOPSY [...] IS NEGATIVE FOR FUNGAL FORMS.Pathologist provided ICD-9:692.9CPT .978535, 903085 56-Wmx-197776:41 Lipid Panel (03674) Comments: PATIENT WAS FASTINGPERFORMED BY: [facility] CenterHexlpu6771 [facility] [id number] LDL/HDL Ratio 1.0 {ratio_units} (Normal) Range: 0.0-3.2 [...] - 169 >19 years 100 - 199 75-Spu-827748:41 Metabolic Panel, Comments: PATIENT WAS FASTINGPERFORMED BY: boomtrainInscription House Health CenterYboqfa2917 [facility] [id number] Information: [id number] [facility] (19887) ALT (SGPT) 13 [iU]/L (Normal) Range: 0-32 [...] Glucose, Serum 97 mg/dL (Normal) Range: 65-99 04-Vjr-094596:41 Vitamin B-12 (cyanocobalamin) Comments: PATIENT WAS FASTINGPERFORMED BY: boomtrainP[facility] CenterMtnzin6958 [facility] [id number] (72836) Vitamin B12 632 pg/mL (Normal) Range: 211-946 29-Iwj-015623:41 CBC (Auto) (47948) Comments: PATIENT WAS FASTINGPERFORMED BY: [facility]train Hqyhwp6226 [facility] [id number] Platelets 270 {x10E3/uL} (Normal) Range: 150-379 RDW 13.9 % (Normal) Range: 12.3-15.4 MCHC 32.8 g/dL (Normal) Range: 31.5-35.7 MCH 29.5 pg (Normal) Range: 26.6-33.0 MCV 90 fL (Normal) Range: 79-97 Hematocrit 36.6 % (Normal) Range: 34.0-46.6 Hemoglobin 12.0 g/dL (Normal) Range: 11.1-15.9 RBC 4.07 {x10E6/uL} (Normal) Range: 3.77-5.28 WBC 8.5 {x10E3/uL} (Normal) Range: 3.4-10.8 :41 Ferritin (87951) Comments: PATIENT WAS FASTINGPERFORMED BY: [facility] Uybfii0200 [facility] [id number] Ferritin, Serum 28 ng/mL (Normal) Range: 15-150 :41 CALCIFIDIOL (95554) VIT D 25 Comments: PATIENT WAS FASTINGPERFORMED BY: [facility] Oinqxf7018 [facility] [id number] Vitamin D, 25-Hydroxy 24.3 ng/mL (Abnormal) Range: 30.0-100.0 Comments: Vitamin D deficiency has been defined by the [place] of[place]icine and an Endocrine Society practice guideline as alevel of serum 25-OH vitamin D less than 20 ng/mL (1,2).The Endocrine Society went on to further define vitamin Dinsufficiency as a level between 21 and 29 ng/mL (2).1. IOM ([place] of Medicine). 2010. Dietary reference intakes for calcium and D. [place]: The National Academies Press.2. Candelaria MF, Janey ELIAS, Yolande GROSS, et al. Evaluation, treatment, and prevention of vitamin D deficiency: an Endocrine Society clinical practice guideline. JCEM. 2010; 96(7):1911-30. :55 CBC-Complete Blood Cnt No Diff Comments: Test performed at:[facility] [address] [place] [address] MPV 9.5 fL (Normal) Range: 6.2-12.0 [...] 4.2-5.4 WBC 5.1 K/mm3 (Normal) Range: 4.4-11.0 26-Kfw-554728:55 Ferritin Comments: Test performed at:[facility] [address] [place] [address] FERRITIN 23 ng/mL (Normal) Range: 8-252 62-Dfo-319734:55 Iron Comments: Test performed at:[facility] Q[address] [place] [address] IRON 75 ug/dL (Normal) Range: 50-170 87-Pcl-238548:53 CBC W/Diff, Automated Comments: Test performed at:[facility] Zlmp[address]vy[address] [place] [address] 619671 Absolute Lymph 1.57 {X10_3/ul} (Normal) Range: 0.83-4.51 [...] 4.2-5.4 WBC 3.8 K/mm3 (Abnormal) Range: 4.4-11.0 22-Njr-448400:53 Comprehensive Metabolic Profil Comments: Test performed at:[facility] T[address]hs[address] [place], [place] [address] GAP 5 (Normal) Range: 5-15 CO2 29.0 [...] 7-18 GLU 99 mg/dL (Normal) Range: 70-110 79-Xln-805867:53 Ferritin Comments: Test performed at:[facility] J[address] [place] [address] FERRITIN 13 ng/mL (Normal) Range: 8-252 77-Lxx-911027:53 Lipid Profile Comments: Test performed at:[facility] L[address]knipxweh[address] [place] [address] VLDL 19 mg/dL (Normal) Range: 5-40 [...] 200-240 mg/dL Borderline >240 mg/dL High Risk 20-Gmd-132419:53 Vitamin B12 > 2000 pg/mL (Abnormal) Comments: Test performed at:[facility] Ynnpopisem[address] [place] [address] Range: 211-911 77-Ilc-453533:46 CBC W/Diff, Automated Comments: Test performed at:[facility] Qfr[address]raap[address] [place] [address] Absolute Lymph 1.87 {X10_3/ul} (Normal) Range: [...] 4.2-5.4 WBC 4.1 K/mm3 (Abnormal) Range: 4.4-11.0 68-Zco-674457:46 Comprehensive Metabolic Profil Comments: Test performed at:[facility] Bqjdhdrucd4223 [place] [address] GAP 4 (Abnormal) Range: 5-15 CO2 28.0 [...] 7-18 GLU 70 mg/dL (Normal) Range: 70-110 38-Buh-116225:46 Vitamin D,25 Hydroxy Comments: Test performed at:[facility] Upnpyxyjxj8844 [place] [address] Vitamin D 25-OH 30.6 ng/mL (Normal) Comments: Vitamin D 25(OH) Status Range Deficiency <20 ng/mL (50nmol/L) Insuffciency 20 - 30 ng/mL (50 - 75 nmol/L) Sufficiency 30 - 100 ng/mL (75 - 250 nmol/L) Toxicity >100 ng/mL (>250 nmol/L) 69-Fho-424765:04 CALCIFIDIOL (69436) VIT D Comments: PATIENT NOT FASTINGPERFORMED BY: [facility] Mnesan2175 [facility] [id number] Information: [id number] 25 Vitamin D, 25-Hydroxy 19.2 ng/mL (Abnormal) Range: 30.0-100.0 Comments: Vitamin D deficiency has been defined by the [place] of[place]icine and an Endocrine Society practice guideline as alevel of serum 25-OH vitamin D less than 20 ng/mL (1,2).The Endocrine Society went on to further define vitamin Dinsufficiency as a level between 21 and 29 ng/mL (2).1. IOM ([place] of Medicine). 2010. Dietary reference intakes for calcium and D. [place]: The National Academies Press.2. Candelaria MF, Janey NC, Yolande GROSS, et al. Evaluation, treatment, and prevention of vitamin D deficiency: an Endocrine Society clinical practice guideline. JCEM. 2010; 96(7):1911-30. :04 Ferritin (32664) Comments: PATIENT NOT FASTINGPERFORMED BY: MONA boomtrainP[facility] Medicine [facility] Medical CenterCgpsaj5272 [facility] [id number] Ferritin, Serum 34 ng/mL (Normal) Range: 15-150 :05 METABOLIC PANEL, COMPREHENSIVE Comments: PATIENT NOT FASTINGPERFORMED BY: boomtrainP[facility] CenterCwcdpo4398 [facility] [id number] (55904) ALT (SGPT) 10 [iU]/L (Normal) Range: 0-32 [...] Glucose, Serum 86 mg/dL (Normal) Range: 65-99 41-Hql-752406:05 CBC WITH MANUAL DIFF Comments: PATIENT NOT FASTINGPERFORMED BY: KeepFulin6370 [facility] [id number] Information: [id number],2ND ORDER NO DRAW F EE (01424) Immature Grans (Abs) 0.0 {x10E3/uL} (Normal) Range: [...] 3.77-5.28 WBC 5.2 {x10E3/uL} (Normal) Range: 3.4-10.8 83-Jja-556333:05 CALCIFIDIOL (75999) VIT D 25 Comments: PATIENT NOT FASTINGPERFORMED BY: [facility]ixSur[facility] Center6370 [facility] [id number] Vitamin D, 25-Hydroxy 19.6 ng/mL (Abnormal) Range: 30.0-100.0 Comments: Vitamin D deficiency has been defined by the [place] of[place]icine and an Endocrine Society practice guideline as alevel of serum 25-OH vitamin D less than 20 ng/mL (1,2).The Endocrine Society went on to further define vitamin Dinsufficiency as a level between 21 and 29 ng/mL (2).1. IOM ([place] of Medicine). 2010. Dietary reference intakes for calcium and D. [place]: The National AcademVenturepax Press.2. Candelaria MF, Janey ELIAS, Yolande GROSS, [...] CHOL 168 mg/dL (Normal) Comments: <200 mg/dL Vgzrymynl168-995 mg/dL Borderline>240 mg/dL High Risk 5-Boc-707182:51 VITD 38.8 mg/mL (Normal) Comments: Vitamin D 25(OH) Status RangeDeficiency <20 ng/mL (50nmol/L)Insuffciency 20 - 30 ng/mL (50 - 75 nmol/L)Sufficiency 30 - 100 ng/mL (75 - 250 nmol/L)Toxicity >100 ng/mL (>250 nmol/L) 58-Wdi-646808:07 Lipase (83978) Comments: PERFORMED BY: [employer]train [employer] [facility] [id number] Lipase, Serum 67 U/L (Abnormal) Range: 0-59 91-Ytm-178484:07 Amylase (15996) Comments: PERFORMED BY: [employer]train [employer] [facility] ioSemanticsEC[facility] [id number] Amylase, Serum 92 U/L (Normal) Range: 31-124 94-Pdq-746467:11 Urinalysis, Office (25663) UA - LEUKOCYTE ESTERASE Negative (Normal) UA - NITRITE Negative (Normal) URINE UROBILINGN YANCI TIMED Normal mg/dL (Normal) UA - PROTEIN Negative mg/dL (Normal) UA - PH 5 (Abnormal) Comments: 5.5 UA - BLOOD Negative (Normal) UA - SPECIFIC GRAVITY 1.015 (Normal) UA - KETONES 15 mg/dL (Abnormal) UA - BILIRUBIN Small (Normal) UA - GLUCOSE Negative (Normal) 03-Zuv-184736:28 GRETTA CULTURE-OTHER (32875) Comments: PATIENT NOT FASTINGPERFORMED BY: [facility] [employer] [facility] [id number] Information: SRC:THRT [id number] Result 1 RRF (Normal) Comments: Routine respiratory rajwinder Upper Respiratory Culture Final report (Normal) 60-Vcf-844431:32 Rapid Strep Test, Office (50681) Rapid Strep Test, Office Negative (Normal) 95-Vax-433273:02 Iron Binding Capacity Comments: PATIENT NOT FASTINGPERFORMED BY: [facility] [employer] [facility] [id number] Information: [id number],[id number] (TIBC) (21989) Iron Saturation 6 % (Abnormal) Range: 15-55 Iron, Serum 32 ug/dL (Abnormal) Range: 35-155 UIBC 461 ug/dL (Abnormal) Range: 150-375 Iron Bind.Cap.(TIBC) 493 ug/dL (Abnormal) Range: 250-450 :02 Ferritin (90593) Comments: PATIENT NOT FASTINGPERFORMED BY: LabCoP[facility] CenterWjgbvv4242 [facility] [id number] Ferritin, Serum 7 ng/mL (Abnormal) Range: 15-150 [...] CHOL 181 mg/dL (Normal) Comments: <200 mg/dL Tzfdeazaf273-997 mg/dL Borderline>240 mg/dL High Risk :19 VITD [...] 7-18 GLU 79 mg/dL (Normal) Range: 70-110 35-Ygx-048873:18 TS Ab SCREEN GEL NEGATIVE (Normal) SCREEN CELL I NEGATIVE (Normal) SCREEN CELL II NEGATIVE (Normal) SCREEN CELL III NEGATIVE (Normal) BLOOD TYPE GEL O POSITIVE (Normal) 14-Hnu-772484:17 Metabolic Panel, Comments: PATIENT NOT FASTINGPERFORMED BY: [facility] Rsguyd5861 [facility] [id number] Information: [id number] Comprehensive (01443) ALT (SGPT) 13 [iU]/L (Normal) Range: 0-32 [...] 4.2-5.4 WBC 5.0 K/mm3 (Normal) Range: 4.4-11.0 58-Jsd-687937:19 CMP GAP 9 (Normal) Range: 5-15 CO2 [...] s (Normal) Range: 11.9-14.4 :41 VIT D,25 37383 20.3 ng/mL (Abnormal) Range: 30.0-100.0 Comments: Vitamin D deficiency has been defined by the [place] of[place]icine and an Endocrine Society practice guideline as alevel of serum 25-OH vitamin D less than 20 ng/mL (1,2).The Endocrine Society went on to further define vitamin Dinsufficiency as a level between 21 and 29 ng/mL (2).1. IOM ([place] of Medicine). 2010. Dietary reference intakes for calcium and D. [place]: The National Academies Press.2. Candelaria MF, Janey NC, Yolande GROSS, et al. Evaluation, treatment, and prevention of vitamin D deficiency: an Endocrine Society clinical practice guideline. JCEM. 2010; 96(7): 1911-30.Performed at: - hipix[address] [id number] Director: Yony San MD, Phone: [phone] at: [facility] LabCo[address] [id number] Director: Era Tinoco MD, Phone: [phone] VITD 1,25 22701 44.5 pg/mL (Normal) Range: 10.0-75.0 :09 PREMA [...] 4.2-5.4 WBC 6.2 K/mm3 (Normal) Range: 4.4-11.0 9-Wpk-472846:09 COMP METABOLIC GAP 11 (Normal) Range: 5-15 [...] :09 FERRITIN 18 ng/mL (Normal) Range: 8-252 8-Vzq-307970:09 LIPASE 280 U/L (Normal) Range: 70-290 Comments: Please note:LIPASE revised reference range effective 09. 43-Peb-793799:05 LIPID Comments: COMMENTS: FAX RESULTS TO DR [...] 200-240 mg/dL Borderline >240 mg/dL High Risk 29-Xmq-888735:54 BILAT SCRN DIGITAL & CAD Radiology Report [...] 11/20/10 0112 Sign by: Bartolome Patel MD 10-Zsn-822055:54 DEXA BONE DENSITY STUDY (HP) Radiology Report See Note (Normal) Comments: CLINICAL:Female, 55 years old. The patient is postmenopausal. EXAMINATION:DUAL ENERGY X-RAY ABSORPTIOMETRY / DEXA. TECHNIQUE:Bone Mineral Density (BMD) measurements of lumbar spine and bila teralhipswer e obtained using a [employer] scanner.. COMPARISON:Comparison is made with prior study [...] on 11/20/1030 Sign by: Bartolome Patel MD 8-Ptn-557949:46 DESIRAE DIR SEMI-QL Comments: ORDERED CBC LUZ MARINA FEDRCOREY ORDERED CMP CBCD CRP ESR VITD HEPB SURF AB CCPHEPB IRINA AG HEPC DESIRAE RA HEPB CORE IGM UAC SCL70 ANTOINE ANTI JOANTICENT AB SSA SSB DNA UAPROTEIN C3 C4 TSH DESIRAE DIRECT 56 AU/mL (Normal) 8-Tuj-080605:46 ANEX PANEL Comments: ORDERED CBC LUZ MARINA FEDRCOREY ORDERED CMP CBCD CRP ESR VITD HEPB SURF AB CCPHEPB IRINA AG HEPC DESIRAE RA HEPB CORE IGM UAC SCL70 ANTOINE ANTI JOANTICENT AB SSA SSB DNA UAPROTEIN C3 C4 TSH; appt 11/02/10 VET TECH AB 14 AU/mL (Normal) ANTI-TORRES AB 7 AU/mL (Normal) :46 ANTI JO1 Comments: ORDERED CBC LUZ MARINA FEDRCOREY ORDERED CMP CBCD CRP ESR VITD HEPB SURF AB CCPHEPB IRINA AG HEPC DESIRAE RA HEPB CORE IGM UAC SCL70 ANTOINE ANTI JOANTICENT AB SSA SSB DNA UAPROTEIN C3 C4 TSH ANTI LAMAR 7 AU/mL (Normal) 2-Fyz-783571:46 ANTI SCL 70 Comments: ORDERED CBC LUZ MARINA FEDRCOREY ORDERED CMP CBCD CRP ESR VITD HEPB SURF AB CCPHEPB IRINA AG HEPC DESIRAE RA HEPB CORE IGM UAC SCL70 ANTOINE ANTI JOANTICENT AB SSA SSB DNA UAPROTEIN C3 C4 TSH ANTI-SCL 70 14 AU/mL (Normal) 3-Sio-420823:46 ANTI-CCP 648052 < 1 {units} (Normal) Comments: ORDERED CBC [...] 0.6-1.0 GLU 91 mg/dL (Normal) Range: 70-110 9-Kok-351269:46 ESR Comments: ORDERED CBC LUZ MARINA RODRIGUEZ [...] C4 TSH Range: 8-252 :46 HB CORE [id number] SeeNote (Normal) Comments: ORDERED CBC LUZ MARINA MICHAEL ORDERED CMP CBCD CRP ESR VITD HEPB SURF AB CCPHEPB IRINA AG HEPC DESIRAE RA HEPB CORE IGM UAC SCL70 ANTOINE ANTI JOANTICENT AB SSA SSB DNA UAPROTEIN C3 C4 TSH Comments: Result: Negative Performed at: - [facility] [address] [id number] Director: Era Tinoco MD, Phone: [phone] at: - [facility] [address] [id number] Director: Yony San MD, Phone: [phone] :[phone] HBsAg [id number] Comments: ORDERED CBC LUZ [...] of antibody present. :46 HEP C AB 289509 <0.1 (Normal) Comments: ORDERED CBC LUZ MARINA [...] C4 TSH Range: 0.358-3.74 :46 VIT D,25 51986 9.3 ng/mL (Abnormal) Comments: ORDERED CBC LUZ MARINA FEDRCOREY ORDERED CMP CBCD CRP ESR VITD HEPB SURF AB CCPHEPB IRINA AG HEPC DESIRAE RA HEPB CORE IGM UAC SCL70 ANTOINE ANTI JOANTICENT AB SSA SSB DNA UAPROTEIN C3 C4 TSH Range: 32.0-100.0 Comments: Recent studies consider the lower limit of 32.0 ng/mL to jayleen threshold for optimal health.Ortiz SANCHEZ. J Nutr. 2004;135(2):317-22. 40-[id number]:10 CBC Comments: COMMENTS: FAX RESULTS TO DR. [...] 4.2-5.4 WBC 9.8 K/mm3 (Normal) Range: 4.4-11.0 96-Fld-481640:10 FERRITIN 21 ng/mL (Normal) Comments: COMMENTS: FAX RESULTS TO DR. CECI NUNORESULTS FAXED 07/17/10 131VLADIMIR MAKI. Range: 8-252 60-Rfp-902985:10 IRON 125 ug/dL (Normal) Comments: COMMENTS: FAX RESULTS TO DR. CECI FARIAS DRAWRESULTS FAXED 07/17/10 131VLADIMIR MAKI. Range: 50-170 87-Dir-696747:20 CBC With Differential/Platelet Comments: [facility]MED BY: [facility] [id number] Baso (Absolute) 0.0 {x10E3/uL} (Normal) Range: 0.0-0.2 [...] 11.7-15.0 WBC 5.3 {x10E3/uL} (Normal) Range: 4.0-10.5 53-Ito-559282:20 Comp. Metabolic Panel (14) Comments: PERFORMED BY: [facility] [facility] [id number] ALT (SGPT) 18 [iU]/L (Normal) Range: 0-40 [...] Serum 14 ng/mL (Normal) Comments: PERFORMED BY: [facility] [id number] 14:20 Range: 13-150 99-Xxu-451364:20 Iron and TIBC Comments: PERFORMED BY: [employer] [facility] [id number] Iron Saturation 23 % (Normal) Range: 15-55 Iron, Serum 106 ug/dL (Normal) Range: 35-155 UIBC 361 ug/dL (Normal) Range: 150-375 Iron Bind.Cap.(TIBC) 467 ug/dL Range: 250-450 (Abnormal) TSH 1.760 {uIU/mL} Comments: PERFORMED BY: [email or web address] [facility] [id number] :20 (Normal) Range: 0.450-4.500 C DIF TOXIN/AG See Note (Normal) Comments: PT COLLECTED SPECIMEN 12/30 @2300 :45 Comments: C. DIFF ANTIGENS NEGATIVE :45 CUL STOOL/SHIG Comments: PT COLLECTED SPECIMEN 12/30 @2300 CULTURE, STOOL See Note (Normal) Comments: [facility] No Salmonella, Shigella or Yersinia isolated.No significant [...] Crytosporidium parvum,Cyclospora, or Microsporidia.__ TESTING PERFORMED AT [facility]. ORIGINAL REPORT ONFILE IN LAB CONTAINS [...] Please note:LIPASE revised reference range effective 09. 44-Xyz-397495:10 RENAL Comments: COMMENTS: IV THERAPY DRAWING CO2 [...] (Normal) GLU 102 mg/dL (Normal) Range: 70-110 96-Ojk-702633:37 OCCULT BLOOD FECES SCREEN (27595) OCCULT BLOOD FECES SCREEN negative (Normal) 39-Qyz-731059:03 CBCD,SMEAR DIFF PLT EST SeeNote (Normal) Comments: [...] 6.4-8.2 GLU 94 mg/dL (Normal) Range: 70-110 86-Lux-134162:03 FERRITIN 12 ng/mL (Normal) Range: 8-252 :03 IRON 128 ug/dL (Normal) Range: 50-170 37-Wrd-774139:03 LIPID LDL 86 mg/dL (Normal) Range: 0-130 VLDL 18 mg/dL (Normal) Range: 5-40 HDL 79 mg/dL (Normal) Comments: Reference RangeHDL <40 mg/dL Low HDL CholesterolHDL >or= 60 mg/dL High HDL Cholesterol CHOL 183 mg/dL (Normal) Comments: <200 mg/dL Jmzechbzm379-808 mg/dL Borderline>240 mg/dL High Risk TRIG 88 mg/dL (Normal) Comments: Serum Triglycerides Reference IntervalNormal <150 mg/dLBorderline high 150 - 199 mg/dLHigh 200 - 499 mg/ dLVery High > or = 500 mg/dL 50-Urq-057735:03 VITAMIN B12 342 pg/mL (Normal) Range: 254-1320 10-Apr-20090:00 FLU A+B DIRECT See Note (Normal) Comments: Negative test results should be confirmed by culture. Order Rapid Viral Culture for Influenzae A+B (851988) if clinically indicated. INFLUENZA ANTIGEN,DIRECT Presumptive NEGATIVE for Influenza A/B Antigen (See Note) 08-Knz-276730:43 CHEST, PA AND LATERAL Radiology Report See Note (Normal) Comments: Exam Number: [id number] CLINICAL DATAInterstitial lung disease, cough. CHEST PA [...] pneumonia. Possible bronchitis. Reported By: FLORINDA CAMPOS 26-Psy-127399:45 L/S SPINE,MIN 4 VIEWS Radiology Report See Note (Normal) Comments: Exam Number: [id number] CLINICAL PROBLEMLow back pain post fall. LUMBAR [...] and spondylosis. Reported By: AROLDO TILLMAN M.D. 67-Woe-817042:44 KNEE,4 OR MORE VIEWS Radiology Report See Note (Normal) Comments: Exam Number: [id number] CLINICAL PROBLEMPain both knees post fall. FOUR [...] patellofemoral compartments. Reported By: AROLDO TILLMAN M.D. 68-Tei-898095:44 KNEE,4 OR MORE VIEWS Radiology Report See Note (Normal) Comments: Exam Number: [id number] CLINICAL PROBLEMLeft knee pain status post fall. [...] Order Rapid Viral Culture for Influenzae A+B (884042) if clinically indicated. INFLUENZA ANTIGEN,DIRECT Presumptive NEGATIVE for Influenza A/B Antigen (See Note) 12-Sep-2008 PREMA 66 U/L (Normal) Range: 25-115 12:11 17-Qav-551022:11 CBCD BASO% 0.2 % (Normal) Range: 0-1 [...] 4.2-5.4 WBC 4.2 K/mm3 (Abnormal) Range: 4.4-11.0 95-Smz-342101:11 COMP METABOLIC A/G 1.2 {RATIO} (Normal) Range: [...] T PROT 6.9 g/dL (Normal) Range: 6.4-8.2 89-Ntp-431393:11 ESR SED RATE 3 mm/h (Normal) Range: 0-30 75-Tgm-849250:11 LIPASE 229 U/L (Normal) Range: 114-286 :11 [...] T PROT 6.7 g/dL (Normal) Range: 6.4-8.2 31-Jrl-432741:00 METHYLM 811879 330 nmol/L (Normal) Range: 73-376 Comments: The reference range for methylmalonic acid has been set at+3sd above the mean for healthy blood bank donors. In theclinical assessment of patients with megaloblastic anemiasa cutoff of +3sd provides gre ater specificity in thediagnosis of the vitamin deficiency states, despite thesacrifice of some sensitivity.Performed At: [address] [id number] 5-Enc-803491:55 Lower Respiratory Culture Comments: Clinical Information: SRC:SP PERFORMED BY: [facility] [id number] Lower Respiratory Culture Final report (Normal) Result 1 RRF (Normal) Comments: Routine respiratory rajwinder :3 PREMA 62 U/L (Normal) Range: 25-115 6 86-Vbm-97171:36 DESIRAE-D 806256 DESIRAE-DIRECT 23 AU/mL (Normal) Range: 0-99 Comments: [...] (Normal) Range: 0.0-13.9 Comments: Performed At: [address] [id number] :36 TSH 1.76 {uIU/mL} (Normal) Range: 0.34-4.82 :29 HgA1C , Office (93618) HgA1C , Office 5.5 % (Normal) Range: 4.6 - 7.1 :29 Blood Glucose , Office (80466) Blood Glucose , Office 108 (Normal) :51 CHEST, PA AND LATERAL Radiology Report See Note (Normal) Comments: Exam Number: [id number] PA AND LATERAL CHEST HISTORY Being done [...] By: JERARDO BEAULIEU M.D. :57 Rapid Flu (86874 x 2) INFLUENZA IMMUNOASSY DIRECT OPTICAL OBSERV negative (Normal) Comments: aw 38-Awh-124335:57 LIPID CHOL 186 mg/dL (Normal) Comments: <200 [...] pg/mL (Normal) Range: 211-911 :57 VITD 1,25 74880 69.6 (Normal) Comments: Performed At: [address] [id number] 07-Qzz-606795:47 CHEST, PA AND LATERAL Radiology Report See Note (Normal) Comments: Exam Number: [id number] PA AND LATERAL CHEST HISTORY Being done [...] perihilar infiltrate. Reported By: JERARDO BEAULIEU M.D. 23-Rsj-952051:08 Upper Respiratory Culture Comments: Clinical Information: SRC:TH PERFORMED BY: [facility] [facility] [id number] Result 1 RRF (Normal) Comments: Routine respiratory rajwinder Upper Respiratory Culture Final report (Normal) 1-Kfu-073315:39 CHEST WITHOUT CONTRAST Radiology Report See Note (Normal) Comments: Exam Number: [id number] CT SCAN OF CHEST HISTORYNeoplasm of uncertain [...] PREMA 73 U/L (Normal) Range: 25-115 :01 79-Wie-649778:01 CBCD BASO% 0.3 % (Normal) Range: 0-1 [...] 11.6-14.6 WBC 4.7 K/mm3 (Normal) Range: 4.4-11.0 03-Xlp-613333:01 COMP METABOLIC A/G 1.1 {RATIO} (Normal) Range: [...] mg/dL VLDL 15 mg/dL (Normal) Range: 5-40 95-Res-591809:40 BC No growth in 5 days. Comments: COMMENTS: ROOM 12 (Normal) 78-Xca-550828:20 COMPLETE UA Comments: COMMENTS: ROOM 12HOLD IN [...] WBC 0 SEEN {/hpf} (Normal) Range: 0-5 66-Fbc-017218:10 BMP Comments: COMMENTS: ROOM 12 BUN 8 [...] 3.5-5.1 NA 132 mmol/L (Abnormal) Range: 136-145 19-Vwo-455029:10 CBCD Comments: COMMENTS: ROOM 12 BASO% 0.2 [...] (Normal) WBC 10.6 K/mm3 (Normal) Range: 4.4-11.0 95-Bet-279417:10 LIPASE 212 U/L (Normal) Comments: COMMENTS: ROOM 12 Range: 114-286 65-Yea-970767:10 LIVER Comments: COMMENTS: ROOM 12 ALB 3.4 [...] 29 [iU]/L (Abnormal) Range: 30-65 :07 DESIRAE-D 630672 DESIRAE-DIRECT 24 U/mL (Normal) Range: 0-99 Comments: Negative <100 Equivocal 100 - 120 Positive >120Performed At: [facility] [place], [place] [id number] At: [facility] [address] [id number] :07 See Note (Normal) Comments: CHECK BLOOD [...] 5.8 K/mm3 (Normal) Range: 4.4-11.0 :07 HISTOPL 205864 SeeNote (Normal) Comments: Result: Negative :07 RA LATEX 6502 8.6 {IU/mL} (Normal) Range: 0.0-13.9 :24 CHEST, PA AND LATERAL Radiology Report See Note (Normal) Comments: Exam Number: [id number] CHEST, PA AND LATERAL HISTORYFever and cough. COMPARISONNone. FINDINGSThere is an indwelling Mgku-J-Xehlpgst on the right side particularlyin the SVC. The heart, aorta, and media stinum are normal. Lungs areclear. There is no evidence of consolidation, effusion, congestion,or nodules. There are clips in the region of the esophageal hiatus. IMPRESSIONClear lungs. Reported By: AN YOUNG M.D. 12-Wph-775206:0 BC No growth in 5 days. 0 [...] mm/h (Normal) Range: 0-30 :02 Urinalysis, Office (30477) Comments: ABn signed CH UA - BILIRUBIN [...] :19 LIPASE 212 U/L (Normal) Range: 114-286 8-Lko-572440:19 VIT B12 1503 147 pg/mL (Abnormal) Range: 211-911 Comments: Performed At: [address] [id number] 4-Ect-530486:00 CULTURE, THROAT See Note (Normal) Comments: Normal throat rajwinder isolated. No beta-hemolyticstreptococcus isolated. 9-Nyx-194245:52 Urinalysis, Office (00938) UA - BILIRUBIN Negative (Normal) UA - [...] and of unspecified site Planned Observations LIPASE (71416)Indication: Chronic pancreatitis On: 06-Wgm-732014:51 Request AMYLASE (51464)Indication: Chronic pancreatitis On: 14-Yww-912199:50 Request URINALYSIS (19900)Indication: Chronic pancreatitis On: :50 Request CBC WITH MANUAL DIFF (67627)Indication: Chronic pancreatitis On: 13-Sqq-403637:50 Request Metabolic Panel, Comprehensive (99482)Indication: Chronic pancreatitis On: 35-Jam-641874:50 Request PT (PROTHROMBIN TIME) (05486)Indication: PFO (patent foramen ovale) On: 65-Hka-052779:36 Request Vitamin B-12 (cyanocobalamin) (41860)Indication: S/P gastric bypass On: 4-Xrw-037018:21 Request Ferritin (29957)Indication: Iron deficiency anemia due to dietary causes On: 5-Uwk-797291:21 Request CBC, Platelets & Auto Diff (91296)Indication: Chronic pancreatitis On: :21 Request Metabolic Panel, Comprehensive (90540)Indication: Chronic pancreatitis On: 3-Lwx-318388:21 Request CALCIFIDIOL (53331) VIT D 25Indication: Vitamin D deficiency, unspecified On: 38-Vfo-78112:55 Request Comments: re check in 8 weeks Sed Rate Erythrocyte (81141)Indication: Fever On: 76-Kuk-294950:39 Request URINALYSIS (74726)Indication: Fever On: :33 Request URINE GRETTA CULTURE-IDENTIFICATN (56041)Indication: Fever On: :33 Request CALCIFIDIOL (94846) VIT D 25Indication: Vitamin D deficiency, unspecified On: :32 Request CBC, Platelets & Auto Diff (35321)Indication: Iron deficiency anemia due to dietary causes On: :32 Request Ferritin (90472)Indication: Iron deficiency anemia due to dietary causes On: 77-Fjd-308650:32 Request GRETTA CULTURE-BLOOD (40043)Indication: Fever On: 06-Yeu-201525:30 Request Comments: ONE FROM PORT AND ONE PERIPHERAL CALCIFIDIOL (73724) VIT D 25Indication: Vitamin D deficiency, unspecified On: 55-Mlq-733283:24 Request FERRITIN (46784)Indication: Iron deficiency anemia due to dietary causes On: 98-Ypb-912483:22 Request EBV ANTIBODY VCA/EA 51933 (65066)Indication: Fatigue On: 97-Kqh-717791:31 Request Comments: please do VCA IGM Ferritin (35823)Indication: Iron deficiency anemia due to dietary causes On: 35-Cab-241874:00 Request CALCIFIDIOL (18045) VIT D 25Indication: Vitamin D deficiency, unspecified On: 10-Umb-746632:00 Request EBV Panel (83955)Indication: Pharyngitis, acute On: 86-Ein-013683:58 Request Influenza A&B Viral Culture (20138)Indication: Fever On: 6-Uqw-433856:34 Request GRETTA CULTURE-OTHER (96410)Indication: Fever On: :33 Request Rapid Strep Test, Office (76578)Indication: Fever On: :18 Request Troponin I (24201)Indication: Chest pain at rest On: :43 Request Comments: pls add to labs already done MYOGLOBIN (07036)Indication: Chest pain at rest On: : Request CPK MB FRACTION (92824)Indication: Chest pain at rest On: : Request Sed Rate Erythrocyte (62028)Indication: Chest pain at rest On: : Request CBC WITH MANUAL DIFF (69634)Indication: Chest pain at rest On: Request CALCIFEDIOL (45633)Indication: OTHER AND UNSPECIFIED POSTSURGICAL NONABSORPTION On: :12 Request PARATHORMONE (81266)Indication: OTHER AND UNSPECIFIED POSTSURGICAL NONABSORPTION On: : Request Magnesium (63705)Indication: OTHER AND UNSPECIFIED POSTSURGICAL NONABSORPTION On: : Request Phosphorus (55386)Indication: OTHER AND UNSPECIFIED POSTSURGICAL NONABSORPTION On: : Request IRON (52395)Indication: OTHER AND UNSPECIFIED POSTSURGICAL NONABSORPTION On: : Request FERRITIN (20367)Indication: OTHER AND UNSPECIFIED POSTSURGICAL NONABSORPTION On: :12 Request ZINC, BLOOD (41370)Indication: OTHER AND UNSPECIFIED POSTSURGICAL NONABSORPTION On: : Request VITAMIN A (09532)Indication: OTHER AND UNSPECIFIED POSTSURGICAL NONABSORPTION On: : Request TSH (62316)Indication: OTHER AND UNSPECIFIED POSTSURGICAL NONABSORPTION On: : Request MAGNESIUM (17200)Indication: OTHER AND UNSPECIFIED POSTSURGICAL NONABSORPTION On: : Request Folic Acid Serum (85645)Indication: OTHER AND UNSPECIFIED POSTSURGICAL NONABSORPTION On: : Request CHROMIUM (71259)Indication: OTHER AND UNSPECIFIED POSTSURGICAL NONABSORPTION On: :12 Request ASSAY, HOMOCYSTINE (18303)Indication: OTHER AND UNSPECIFIED POSTSURGICAL NONABSORPTION On: :12 Request Metabolic Panel, Basic (88554)Indication: Abdominal pain On: 55-Tmq-260738:11 Request Comments: do on this tuesday OSMOLALITY URINE (65391)Indication: Abdominal pain On: :11 Request Comments: today in ambulatory OSMOLALITY BLOOD (94581)Indication: Abdominal pain On: :11 Request Comments: today in ambulatory Lipase (94942)Indication: Abdominal pain On: :11 Request Comments: today in ambulatory Amylase (47996)Indication: Abdominal pain On: :11 Request Comments: today in ambulatory CBC, Platelets & Auto Diff (87275)Indication: Abdominal pain On: :11 Request Comments: today in ambulatory Metabolic Panel, Comprehensive (11211)Indication: Abdominal pain On: :10 Request Comments: today in ambulatory AMYLASE (15955)Indication: Abdominal pain On: 6-Rcj-766602:12 Request LIPASE (63266)Indication: Abdominal pain On: 5-Rsw-058742:12 Request Ferritin (97031)Indication: Iron deficiency anemia due to dietary causes On: :20 Request Comments: in six months (approximately) Vitamin B-12 (cyanocobalamin) (63072)Indication: Other vitamin B12 deficiency anemia On: :19 Request Comments: in six months (approximately) Lipid Panel (88508)Indication: High blood triglycerides On: :19 Request Comments: in six months (approximately) Metabolic Panel, Comprehensive (89342)Indication: Chronic pancreatitis On: :19 Request Comments: in six months (approximately) Vitamin B-12 (cyanocobalamin) (05788)Indication: Other vitamin B12 deficiency anemia On: :27 Request METABOLIC PANEL, COMPREHENSIVE (18038)Indication: High blood triglycerides On: :19 Request LIPID PANEL (42949)Indication: High blood triglycerides On: :19 Request CBC, Platelets & Auto Diff (83113)Indication: Iron deficiency anemia due to dietary causes On: 69-Adq-898886:15 Request Ferritin (31068)Indication: Iron deficiency anemia due to dietary causes On: 42-Yzu-758111:15 Request Iron (81887)Indication: Iron deficiency anemia due to dietary causes On: :29 Request Comments: recheck in 4 weeks pt needs to be fasting Iron Binding Capacity (TIBC) (67252)Indication: Iron deficiency anemia due to dietary causes On: :29 Request Comments: recheck in 4 weeks pt needs to be fasting Ferritin (95680)Indication: Iron deficiency anemia due to dietary causes On: :28 Request Comments: recheck in 4 weeks pt needs to be fasting METABOLIC PANEL, COMPREHENSIVE (18477)Indication: High blood triglycerides On: :33 Request LIPID PANEL (10153)Indication: High blood triglycerides On: 02-Kdl-465925:33 Request CBC (Auto) (14349)Indication: Iron deficiency anemia due to dietary causes On: 41-Ved-517202:33 Request Ferritin (32591)Indication: Iron deficiency anemia due to dietary causes On: 05-Pde-057916:33 Request Vitamin B-12 (cyanocobalamin) (98800)Indication: Other vitamin B12 deficiency anemia On: 51-Jqu-179207:32 Request CALCIFIDIOL (18162) VIT D 25Indication: Vitamin D deficiency, unspecified On: 51-Ixk-696265:32 Request CULTURE, SPUTUM (08479)Indication: Cough On: 8-Yxl-468954:36 Request Iron (77293)Indication: Iron deficiency anemia due to dietary causes On: 28-Stp-411737:53 Request CALCIFIDIOL (21537) VIT D 25Indication: Vitamin D deficiency, unspecified On: 80-Moo-654048:02 Request CBC (Auto) (60668)Indication: Iron deficiency anemia due to dietary causes On: 3-Nck-750121:49 Request Metabolic Panel, Comprehensive (67845)Indication: Chronic pancreatitis On: 7-Ynb-245161:49 Request Lipid Panel (75865)Indication: High blood triglycerides On: 0-Jrg-889629:49 Request Ferritin (84658)Indication: Iron deficiency anemia due to dietary causes On: 1-Ogp-399368:48 Request CALCIFEDIOL (60578)Indication: Vitamin D deficiency, unspecified On: :48 Request Vitamin B-12 (cyanocobalamin) (91018)Indication: Other vitamin B12 deficiency anemia On: 7-Ogg-435146:47 Request Lipase (65053)Indication: Chronic pancreatitis On: :47 Request Amylase (43384)Indication: Chronic pancreatitis On: :47 Request D-Dimer (61601)Indication: Anemia On: 58-Tej-106396:28 Request Comments: stat Metabolic Panel, Comprehensive (11695)Indication: Anemia On: :16 Request TYPE & SCREEN GEL (34716)Indication: Anemia On: :16 Request CBC with manual diff (99761)Indication: Anemia On: :15 Request Lipase (31564)Indication: Chronic pancreatitis On: :30 Request Amylase (03093)Indication: Chronic pancreatitis On: 23-Wkl-795055:30 Request Ferritin (75966)Indication: Iron deficiency anemia due to dietary causes On: 43-Xya-475251:28 Request LIPASE (12844)Indication: Chronic pancreatitis On: 6-Tgi-198714:21 Request AMYLASE (11707)Indication: Chronic pancreatitis On: 0-Qan-626505:21 Request Lipase (54658)Indication: Chronic pancreatitis On: 05-Sxu-307006:12 Request Amylase (43922)Indication: Chronic pancreatitis On: 99-Oys-787476:12 Request MICROALBUMIN: CREATININE RATIO (63602) AND (03771)Indication: Chronic pancreatitis On: 50-Wwu-381765:12 Request METABOLIC PANEL, COMPREHENSIVE (61941)Indication: Chronic pancreatitis On: 54-Oab-890508:12 Request LIPID PANEL (69620)Indication: High blood triglycerides On: 80-Urr-955308:12 Request CBC WITH MANUAL DIFF (38449)Indication: Chronic pancreatitis On: 23-Tta-222518:12 Request Metabolic Panel, Comprehensive (86388)Indication: Chronic pancreatitis On: 7-Hip-903825:46 Request Lipase (92240)Indication: Chronic pancreatitis On: 9-Zbt-189338:46 Request Amylase (43148)Indication: Chronic pancreatitis On: 9-Tmv-879638:46 Request CALCIFIDIOL (74145) VIT D 25Indication: Vitamin D deficiency, unspecified On: :43 Request Ferritin (96977)Indication: Iron deficiency anemia due to dietary causes On: :43 Request CBC (Auto) (58598)Indication: Iron deficiency anemia due to dietary causes On: :43 Request PT (Prothrobim Time) (96116)Indication: AFTERCARE, LONG-TERM USE, ANTICOAGULANTS On: :28 Request Lipase (11029)Indication: Chronic pancreatitis On: : Request Amylase (35563)Indication: Chronic pancreatitis On: : Request Metabolic Panel, Comprehensive (41303)Indication: Chronic pancreatitis On: : Request CBC (Auto) (37515)Indication: Leukopenia On: :25 Request Lipid Panel (69947)Indication: High blood triglycerides On: :25 Request Iron (56370)Indication: Iron deficiency anemia due to dietary causes On: :23 Request Ferritin (35422)Indication: Iron deficiency anemia due to dietary causes On: :23 Request Vitamin B-12 (cyanocobalamin) (99539)Indication: Other vitamin B12 deficiency anemia On: :23 Request CALCIFIDIOL (14025) VIT D 25Indication: Vitamin D deficiency, unspecified On: 7-Jqf-028244:23 Request Lipase (80137)Indication: Chronic pancreatitis On: :21 Request Amylase (11848)Indication: Chronic pancreatitis On: 6-Ote-321501:21 Request Comments: pls add to labs already drawn Metabolic Panel, Comprehensive (13344)Indication: Chronic pancreatitis On: : Request Ferritin (48746)Indication: Iron deficiency anemia due to dietary causes On: 2-Bhc-423399: Request CBC (Auto) (52749)Indication: Chronic pancreatitis On: 2-Rim-410606:07 Request LIPID PANEL (97448)Indication: High blood triglycerides On: 7-Oat-051796:15 Request Iron Binding Capacity (TIBC) (31073)Indication: Anemia On: :53 Request Iron (60009)Indication: Anemia On: 13-Dcy-271853:53 Request Ferritin (48160)Indication: Anemia On: :53 Request CBC (Auto) (14551)Indication: Anemia On: :53 Request Metabolic Panel, Comprehensive (68918)Indication: Chronic pancreatitis On: :53 Request OVA & PARASITE DIR SMEAR (72341)Indication: Diarrhea On: :37 Request LEUKOCYTE COUNT, FECAL (33300)Indication: Diarrhea On: :37 Request C.Difficile, Stool (02162)Indication: Diarrhea On: :37 Request GRETTA CULTURE-STOOL (57583)Indication: Diarrhea On: :37 Request Vitamin B-12 (cyanocobalamin) (00958)Indication: Other vitamin B12 deficiency anemia On: 67-Gqr-613923:05 Request Iron (37398)Indication: Anemia On: 11-Shm-257524:05 Request Ferritin (28109)Indication: Anemia On: 81-Zxm-252108:05 Request METABOLIC PANEL, COMPREHENSIVE (11436)Indication: High blood triglycerides On: :05 Request CBC WITH MANUAL DIFF (51982)Indication: Anemia On: 29-Yly-779115:05 Request LIPID PANEL (46889)Indication: High blood triglycerides On: 36-Oij-421403:04 Request nasal influenza swab (40552) A0Eujxzdbold: Unspecified Diagnosis On: 5-Eem-044590:29 Request Rapid Flu (37801 x 2)Indication: Fever On: 0-Wbx-715563:44 Request Lipid Panel (31506)Indication: High blood triglycerides On: 65-Adt-457266:53 Request CBC (Auto) (11162)Indication: Chronic pancreatitis On: 52-Buc-993396:51 Request Metabolic Panel, Comprehensive (69158)Indication: Chronic pancreatitis On: 30-Eda-951513:51 Request Ferritin (60235)Indication: Anemia On: 84-Tne-293214:51 Request Iron (18388)Indication: Anemia On: 83-Qbi-580845:51 Request Vitamin B-12 (cyanocobalamin) (55408)Indication: Other vitamin B12 deficiency anemia On: 12-Mgv-287342:51 Request Lipid Panel (24230)Indication: Malabsorption syndrome On: 91-Ygz-354793:39 Request Sed Rate Erythrocyte (42222)Indication: Chronic pancreatitis On: :35 Request CBC, Platelets & Auto Diff (39818)Indication: Chronic pancreatitis On: :35 Request Magnesium (87139)Indication: Chronic pancreatitis On: :35 Request Lipase (00715)Indication: Chronic pancreatitis On: :35 Request Amylase (80899)Indication: Chronic pancreatitis On: :35 Request Metabolic Panel, Comprehensive (16071)Indication: Chronic pancreatitis On: :35 Request CBC (Auto) (67344)Indication: Abdominal pain, acute, generalized On: 05-Rbi-994075:29 Request Metabolic Panel, Comprehensive (46939)Indication: Abdominal pain, acute, generalized On: 37-Vul-432518:29 Request Methylmalonic acid, serum 31684Glvjtczadk: Other vitamin B12 deficiency anemia On: 37-Lbg-774691:29 Request CULTURE, SPUTUM (93042)Indication: Cough On: 6-Bwv-295100:42 Request Lipase (92066)Indication: Acute pancreatitis On: 3-Cma-013269:59 Request Amylase (89854)Indication: Acute pancreatitis On: 1-Drj-868512:59 Request DESIRAE (ANTINUCLEAR ANTIBODY) (94721)Indication: Pain in unspecified joint On: 5-Icf-332842:48 Request C-REACTIVE PROTEIN (79153)Indication: Pain in unspecified joint On: 6-Mhq-235330:48 Request CBC WITH MANUAL DIFF (76654)Indication: Pain in unspecified joint On: 0-Gzf-394637:48 Request METABOLIC PANEL, COMPREHENSIVE (46752)Indication: Pain in unspecified joint On: 6-Cqy-174209:48 Request RHEUMATOID FACTOR-QUANT (88031)Indication: Pain in unspecified joint On: 3-Gdg-467417:48 Request SED RATE ERYTHROCYTE (17090)Indication: Pain in unspecified joint On: 2-Gbp-171398:48 Request TSH (27706)Indication: Pain in unspecified joint On: 1-Eto-906278:48 Request GRETTA CULTURE-OTHER (33208)Indication: Pharyngitis, acute On: 58-Kxs-746803:12 Request Rapid Strep Test, Office (63484)Indication: Pharyngitis, acute On: 91-Hnb-485042:12 Request Comments: negative VITAMIN D, 1, 25-DIHYDROXY (01771)Indication: Chronic pancreatitis On: 40-Jvz-376589:46 Request Vitamin B-12 (cyanocobalamin) (62964)Indication: Other vitamin B12 deficiency anemia On: 32-Zdi-867167:43 Request Lipase ([id number])Indication: Chronic pancreatitis On: 36-Ipc-803571:35 Request Amylase (83378)Indication: Chronic pancreatitis On: 93-Ofm-222111:34 Request CBC (Auto) ([id number])Indication: Chronic pancreatitis On: 87-Dyd-758657:34 Request Metabolic Panel, Comprehensive (04698)Indication: Chronic pancreatitis On: 20-Ead-669015:34 Request Lipid Panel (11928)Indication: Chronic pancreatitis On: 57-Vrr-909211:34 Request Comments: standing order every 3 months Metabolic Panel, Comprehensive ([id number])Indication: Edema On: 81-Ynr-128013:13 Request CBC, Platelets & Auto Diff ([id number])Indication: Edema On: 20-Qnn-137324:13 Request PTT (Activated Partial Thromboplastin Time) ([id number])Indication: Edema On: 84-Lrk-079846:12 Request PT (Prothrobim Time) ([id number])Indication: Edema On: 50-Vbs-382731:12 Request Lipase (29302)Indication: pancreatitis On: :32 Request Amylase (60259)Indication: pancreatitis On: :32 Request CBC (Auto) ([id number])Indication: pancreatitis On: :32 Request Metabolic Panel, Comprehensive (06206)Indication: pancreatitis On: :32 Request Metabolic Panel, Comprehensive (75095)Indication: Fever On: 46-Xor-307117:57 Request GRETTA CULTURE-BLOOD (16183)Indication: Fever On: 78-Dqf-965452:56 Request Comments: one from peripheral GRETTA CULTURE-BLOOD (56788)Indication: Fever On: 16-Mpw-140796:56 Request Comments: one from port Sed Rate Erythrocyte (77341)Indication: Fever On: 24-Sby-112408:56 Request CBC, Platelets & Auto Diff (01005)Indication: Fever On: :56 Request Urinalysis, Office (85346)Indication: Fever On: 87-Mkc-178449:56 Request GRETTA CULTURE-OTHER ([id number])Indication: Fever On: 0-Gld-569592:53 Request Rapid Strep Test, Office (41831)Indication: Fever On: :52 Request CBC, Platelets & Auto Diff ([id number])Indication: Chronic pancreatitis On: :46 Request Lipase (69210)Indication: Chronic pancreatitis On: :46 Request Amylase (62314)Indication: Chronic pancreatitis On: :46 Request Metabolic Panel, Comprehensive ([id number])Indication: Chronic pancreatitis On: 1-Rya-379629:46 Request FERRITIN (03358)Indication: Anemia On: 5-Isf-573408:22 Request VITAMIN B-12 (CYANOCOBALAMIN) (81399)Indication: Other vitamin B12 deficiency anemia On: 0-Iut-352895:22 Request LIPASE ([id number])Indication: Acute pancreatitis On: :22 Request ALBUMIN SERUM ([id number])Indication: Acute pancreatitis On: :22 Request CBC (AUTO) ([id number])Indication: Acute pancreatitis On: 80-Lcj-583567:21 Request METABOLIC PANEL, BASIC ([id number])Indication: Abnormal blood chemistry On: 34-Yzs-279058:21 Request Planned Encounters Medical; [facility] (Doctor) - On: 01-May-2018 13:30 [facility] Dima DURAN, Sarah Pizano MD, Sarah Rebollar Planned Procedures Flu Vaccine (Quadrivalent) On: 31-Mar-2018 Intent 84745Aj: COMFORT Gallegos Comments: Lot #:[id number] date: 8-14-13Hiuefn given:0.5mlRoute: IMSite given:L DltdGiven by: ElaineVIS and ABN signed [employer] SCREENING DIGITAL TOMOSYNTHESIS On: 20-Dec-2017 Intent OF BREAST (72103)By: Sarah Pizaon MD, MD, Dana M DEXA SCAN AXIAL SKELETON On: 20-Dec-2017 Intent (34954)By: Sarah Pizano MD, MD, Dana M SCREENING DIGITAL TOMOSYNTHESIS On: 29-Apr-2017 Intent OF BREAST (87411)By: Sarah Pizano MD, MD, Dana M Flu Vaccine (Quadrivalent) On: 29-Apr-2017 Intent 34679Ih: Sarah Pizano MD Comments: lot: [id number]: 12/19/17ite/route: L kelin, IMamt: 0.5mlVIS and ABN signed when applicableChelsea, STAFFING COORDINATOR Sarah Pizano MD CT - Abdomen & Pelvis (IV On: 01-Oct-2016 Intent Contrast Needed)By: Dima DURAN, Comments: attentinon pancrease follow up on kidney cyst. 07-20 creat 0.76 Sarah Ghosh MD Flu Vaccine (Quadrivalent) On: 17-May-2016 Intent 73787Hi: Sarah Pizano MD Comments: FLUlot: [id number]:11/17site:Lt deltoidroute:IMdose:.5mlDEMICK, MA Sarah Pizano MD Aerosol Treatment (76260)By: On: 27-Apr-2016 Intent Kacey Rodriges LPN DEXA SCAN AXIAL SKELETON On: 09-Mar-2016 Intent (69139)By: Sarah Pizano MD, MD, Dana M MAMMOGRAM, SCREENING, BOTH On: 09-Mar-2016 Intent BREAST ([id number])By: Sarah Pizano MD, MD, Dana M DEXA SCAN AXIAL SKELETON On: 15-Jul-2015 Intent ([id number])By: Sarah Pizano MD, MD, Dana M MAMMOGRAM, SCREENING, BOTH On: 15-Jul-2015 Intent BREAST (04871)By: Sarah Pizano MD, MD, Dana M Aerosol Treatment (04126)By: On: 08-Jul-2015 Intent Pamella Saavedra CNP Aerosol Treatment (68394)By: On: 08-Jul-2015 Intent Slarb CANCELLATION CLERK, Kacey XR HIP RIGHT COMPLETE (84855)By: On: 30-Jun-2015 Intent Sarah Pizano MD, MD, Comments: right hip Sarah Rebollar Radiology - PelvisBy: Dima On: 24-Jun-2015 Intent Sarah DURAN MD, Dana M Comments: and right hip xray Venous Doppler - RightBy: On: 24-Jun-2015 Intent Sarah Pizano MD, MD, Comments: leg Sarah Rebollar Flu Vaccine (Quadrivalent) On: 15-Apr-2015 Intent 54590Ud: Sarah Pizano MD Comments: lot [id number]: 01/01/2016site/route L kelin, IMamt 0.5mlVIS and ABN signed when applicableHellenlsmadeleine CMA4 Sarah Pizano MD Radiology - ChestBy: Quentin ARGUETA, On: 07-Feb-2015 Intent Adeola Aerosol Treatment (18721)By: On: 07-Feb-2015 Intent Ailyn Aguilar Solu -Medrol Injection, 125 mg On: 05-Feb-2015 Intent (J2930)By: Pamella Saavedra CNP Comments: lot:[id number]:route:IMdose:125MGsite: R glutGiven by: FOX Angeles Solu -Medrol Injection, 125 mg On: 04-Feb-2015 Intent (J2930)By: Pamella Saavedra CNP Aerosol Treatment (23235)By: On: 04-Feb-2015 Intent Pamella Saavedra CNP MAMMOGRAM, SCREENING, BOTH On: 14-Jan-2015 Intent BREAST (75603)By: Sarah Pizano MD, MD, Dana M Prevnar 13 (08340)By: Dima On: 16-Jul-2014 Intent Sarah DURAN MD, Dana M ADMINISTRATION OF INFLUENZA On: 22-Apr-2014 Intent VIRUS VACCINE (G0008)By: Sarah Pizano MD, MD, Dana M FLU VAC, SPLIT, >3 YEARS, On: 22-Apr-2014 Intent INTRAMUSC (44517)By: Dima DURAN, Comments: Lot #:[id number] date:mount given:0.5mlRoute: IMSite given:left deltoid Given by: Sarah Mota MD Phenergan Injection, up to 50 mg On: 12-Dec-2013 Intent (J2550)By: Pamella Saavedra CNP MAMMOGRAM, SCREENING, BOTH On: 25-Sep-2013 Intent BREASTS (52668)By: Sarah Pizano MD, MD, Dana M Eprescribed prescriptions On: 25-Sep-2013 Intent (G8553)By: Sarah Pizano MD, MD, Dana M Aerosol Treatment (50504)By: On: 05-Sep-2013 Intent [address] Saavedra CNP CT - Abdomen & Pelvis (IV On: 04-Jun-2013 Intent Contrast Needed)By: Sarah Pizano MD, MD, Dana M DXA, BONE DENSITY, AXIAL On: 04-Jun-2013 Intent SKELETON (50772)By: Dima DURAN, Comments: postmenapausal Sarah Ghosh MD MAMMOGRAM, SCREENING, BOTH On: 04-Jun-2013 Intent BREASTS (41780)By: Sarah Pizano MD, MD, Dana M Pulse Oximetry (23280)By: On: 04-Jun-2013 Intent COMFOTR Gallegos Eprescribed prescriptions On: 14-May-2013 Intent (G8553)By: Melba Malloy ELECTROCARDIOGRAM, COMPLETE On: 26-Dec-2012 Intent (ECG) (96077)By: Sarah Pizano MD, MD, Dana M Eprescribed prescriptions On: 26-Dec-2012 Intent (G8553)By: Makenzie Allred LPN MAMMOGRAM, SCREENING, BOTH On: 24-Aug-2012 Intent BREASTS (82578)By: Sarah Pizano MD, MD, Dana M Pulse Oximetry (66499)By: On: 29-Jun-2012 Intent COMFORT Gallegos Radiology - Chest- PA and LatBy: On: 01-Jun-2012 Intent Sofia Younger DO Eprescribed prescriptions On: 01-Jun-2012 Intent (G8553)By: Kim Garces LPN FLU VAC, SPLIT, >3 YEARS, On: 28-Apr-2012 Intent INTRAMUSC (43491)By: Balaji, Comments: Lot:[id number]:630.13Dose:prefilledRoute:IMSite:L DltdGiven By:BARRY Garcia IMMUNIZ ADMNIN, 1 VAC, On: 28-Apr-2012 Intent SNGL/COMBO (85802)By: Radha Carpio TDAP VACCINE >7 IM (12491)By: On: 24-Nov-2011 Intent Long Makenzie ABBOTT Comments: Lot #[id number]- 11.13Site- L arm, ImDose prefilledgiven by: Makenzie MAMMOGRAM, SCREENING, BOTH On: 01-Nov-2011 Intent BREASTS (78155)By: Dima DURAN, Sarah Pizano MD, Sarah Rebollar Aerosol Treatment (22651)By: On: 14-Oct-2011 Intent Sofia Younger DO Comments: [...] SPLIT, >3 YEARS, On: 20-Apr-2011 Intent INTRAMUSC (80069)By: Cayden Comments: Lot #[id number]-7/30/12Site-left deltoidgiven by: Jared Rodarte LPN LPN, Chery IMMUNIZ ADMNIN, 1 VAC, On: 20-Apr-2011 Intent SNGL/COMBO (10975)By: Chery Rodarte LPN B 12 Injection, 1000 mcg On: 22-Mar-2011 Intent (J3420)By: COMFORT Gallegos DRAIN/INJECT MAJOR JOINT OR On: 22-Mar-2011 Intent BURSA ()By: COMFORT Gallegos Comments: Lot #:[id number] date: given:2ml Route: intra articular Site given:bilateral knees Given by: Dr. Pizano Pulse Oximetry (34601)By: Quentin On: 19-Mar-2011 Intent OILING MACHINE OPERATOR, Adeola Aerosol Treatment (21660)By: On: 19-Mar-2011 Intent Ciesa OILING MACHINE OPERATOR, Adeola DRAIN/INJECT MAJOR JOINT OR On: 12-Mar-2011 Intent BURSA ()By: COMFORT Gallegos Comments: Lot #:[id number] date: given:2ml Route: intra articular Site given:bilateral knees Given by: Dr. Pizano DRAIN/INJECT MAJOR JOINT OR On: 04-Mar-2011 Intent BURSA ()By: COMFORT Gallegos Comments: Lot #:[id number] date: given:2mlRoute: intra articular Site given:Bilateral knees Given by: Dr. Pizano injection #1 Kenalog Injection, 10 mgm On: 08-Feb-2011 Intent (J3301)By: Sarah Pizano MD Comments: x 8 Sarah Pizano MD Breast Ultrasound - LeftBy: On: 08-Feb-2011 Intent Sarah Pizano MD, MD, Dana M DXA, BONE DENSITY, AXIAL On: 02-Nov-2010 Intent SKELETON (29617)By: Sarah Pizano MD, MD, Dana M MAMMOGRAM, SCREENING, BOTH On: 02-Nov-2010 Intent BREASTS (29148)By: Sarah Pizano MD, MD, Dana M FLU VAC, SPLIT, >3 YEARS, On: 17-Jun-2010 Intent INTRAMUSC (75106)By: Mitchelluszsaskia Comments: Lot #[id number] 4PExp-4/11Site-right deltoidgiven by:LIBRADO CANCELLATION CLERK, Chery IMMUNIZ ADMNIN, 1 VAC, On: 17-Jun-2010 Intent SNGL/COMBO (41794)By: Chery Rodarte LPN DXA, BONE DENSITY, AXIAL On: 30-Sep-2009 Intent SKELETON (83918)By: Dima DURAN, Sarah Pizano MD, Sarah Rebollar MAMMOGRAM, SCREENING, BOTH On: 30-Sep-2009 Intent BREASTS (15055)By: Dima DURAN, Sarah Pizano MD, Sarah Rebollar B 12 Injection, 1000 mcg On: 30-Sep-2009 Intent (J3420)By: COMFORT Gallegos Pulse Oximetry (09498)By: Quentin On: 09-Apr-2009 Intent OILING MACHINE OPERATOR, Adeola Aerosol Treatment (91462)By: On: 09-Apr-2009 Intent Ciesa OILING MACHINE OPERATOR, Adeola FLU VAC, SPLIT, >3 YEARS, On: 26-Mar-2009 Intent INTRAMUSC (90187)By: Lisa HERRON, Andie IMMUNIZ ADMNIN, 1 VAC, On: 26-Mar-2009 Intent SNGL/COMBO (64399)By: Lisa RN, Comments: Lot #: [id number] date: mount given: 0.5 mlRoute: IMSite given: left deltoidGiven by: SCAR Montenegro INJECTION, VITAMIN B-12 On: 07-Feb-2009 Intent CYANOCOBALAMIN, UP TO 1000 MCG Comments: Lot #[id number] date:mount given:1mlSite given: right deltoidGiven by:Wf. (Special Coverage Instructions Apply. See CIM: 45-4 and [facility]: 2049) (J3420)By: COMFORT Gallegos Pulse Oximetry (70076)By: Ceci On: 04-Dec-2008 Intent Rosa Maria AGUAYO Comments: post kbidhmbct01% Aerosol Treatment (49679)By: On: 04-Dec-2008 Intent Fast Rosa Maria AGUAYO Comments: done-aw B 12 Injection, 1000 mcg On: 04-Dec-2008 Intent (J3420)By: Tonia Garcia Comments: Lot #[id number]-05/2010Site-right fxqwlmtJekq7772ocg/1mlgiven by Debbie Lei LPN Pulse Oximetry (28479)By: On: 04-Dec-2008 Intent Tonia Garcia Comments: 91% Radiology - Knee - RightBy: On: 05-Nov-2008 Intent Dima DURAN, Sarah Pizano MD, Sarah Rebolalr Radiology - Knee - LeftBy: On: 05-Nov-2008 Intent Dima DURAN, Sarah Pizano MD, Sarah Rebollar B 12 Injection, 1000 mcg On: 05-Nov-2008 Intent (J3420)By: COMFORT Gallegos Comments: Lot #:[id number] date: given:1 ml Route: IM Site given:rt. deltoid Given by: aretha Sarkar 12 Injection, 1000 mcg On: 09-Oct-2008 Intent (J3420)By: COMFORT Gallegos Comments: Lot #[id number]-05/2010Site-right isehqrjRaha1164bou/1mlgiven by Debbie Lei LPN DRAIN/INJECT MAJOR JOINT OR On: 09-Oct-2008 Intent BURSA ()By: COMFORT Gallegos Comments: Lot #:[id number] date:mount given:Route: intra articular Site given:bilateral knees Given by: Dr. Pizano DRAIN/INJECT MAJOR JOINT OR On: 01-Oct-2008 Intent BURSA ()By: COMFORT Gallegos Comments: Lot #:[id number] date:mo given:2.5ml Route:intra-articular Site given:Bilateral knees Given by: Dr. Pizano DRAIN/INJECT MAJOR JOINT OR On: 24-Sep-2008 Intent BURSA ()By: COMFORT Gallegos Comments: Lot #:[id number] date: Amount given:2.5 mlRoute: intra-articular Site given:bilateral knees Given by: Dr. Pizano DRAIN/INJECT MAJOR JOINT OR On: 17-Sep-2008 Intent BURSA ()By: COMFORT Gallegos Comments: Lot #:[id number] date:mount given:2 grams Route: Intra articular Site given: bilateral knees Given by: Dr. Pizano DRAIN/INJECT MAJOR JOINT OR On: 13-Sep-2008 Intent BURSA ()By: COMFORT Gallegos Comments: Lot #:[id number] date:05-10 Amount given:2.5MLRoute: INTRA ARTICULAR Site given:bilateral knees Given by: Dr. Pizano B 12 Injection, 1000 mcg On: 10-Sep-2008 Intent (J3420)By: COFMORT Gallegos B 12 Injection, 1000 mcg On: 29-Jul-2008 Intent (J3420)By: Denise Collazo Comments: Amt: 1mlLot: [id number]: 02/10Route: IMSite: right deltTolerated: wellGiven By: SCAR Sood Pulse Oximetry (11132)By: Quentin On: 29-Jul-2008 Intent OILING MACHINE OPERATOR, Adeola Aerosol Treatment (28048)By: On: 29-Jul-2008 Intent Ciesa OILING MACHINE OPERATOR, Adeola Aerosol Treatment (63157)By: On: 16-Jul-2008 Intent Sofia Younger DO Comments: done-awnoise resolved and much more air exchange Pulse Oximetry (26086)By: Carisa On: 16-Jul-2008 Sofia Davis DO Comments: 93% Solu- Medrol Injection, 125mg On: 16-Jul-2008 Intent (J2930)By: Sofia Younger DO Comments: Lot #[id number]-6/11Site-right lmtYzlh4wa/125mggiven by Debbie Lei LPN B 12 Injection, 1000 mcg On: 30-Apr-2008 Intent (J3420)By: Prema Lei Comments: Lot #[id number]-/10Site-right tmayhabOzuf0cxjpmzy by Debbie Lei LPN DXA, BONE DENSITY, AXIAL On: 30-Apr-2008 Intent SKELETON (44005)By: Dima DURAN, Comments: estrogen def Sarah Pizano MD, Sarah Rebollar MAMMOGRAM, SCREENING, BOTH On: 30-Apr-2008 Intent BREASTS (46345)By: Dima DURAN, Sarah Pizano MD, Sarah Rebollar B 12 Injection, 1000 mcg On: 27-Mar-2008 Intent (J3420)By: Tonia Garcia Comments: Lot #:[id number] date:mount given:.1mlRoute: IMSite given:left deltoidGiven by: EDEN Salcido Pulse Oximetry (47830)By: On: 27-Mar-2008 Intent Tonia Garcia Comments: 96% Pulse Oximetry (19369)By: On: 14-Mar-2008 Intent COMFORT Gallegos B 12 Injection, 1000 mcg On: 06-Feb-2008 Intent (J3420)By: Pamella Saavedra CNP Comments: Lot #:[id number] date: Amount given:1ml Route: IMSite given:left deltoid Given by: billy Solu -Medrol Injection, 125 mg On: 06-Feb-2008 Intent (J2930)By: Pamella Saavedra CNP Comments: Lot #:[id number] date:mount given:125mgRoute: IMSite given:left gluteal Given by: aretha Pulse Oximetry (74587)By: Quentin On: 06-Feb-2008 Intent Pamella ARGUETA Aerosol Treatment (48009)By: On: 06-Feb-2008 Intent Pamella Saavedra CNP B 12 Injection, 1000 mcg On: 21-Dec-2007 Intent (J3420)By: Ledy Nogueira Comments: given in right deltoid, lot#[id number], exp.3.10 >Wf. B 12 Injection, 1000 mcg On: 03-Oct-2007 Intent (J3420)By: Pamella Saavedra CNP Pulse Oximetry (98072)By: Quentin On: 03-Oct-2007 Intent Pamella ARGUETA Aerosol Treatment (55884)By: On: 03-Oct-2007 Intent Pamella Saaverda CNP Pulse Oximetry (39758)By: Lenny, On: 16-Aug-2007 Intent Cira Aerosol Treatment (18526)By: On: 16-Aug-2007 Intent Sofia Younger DO Comments: no wheeze and better air exchange Solu- Medrol Injection, 125mg On: 16-Aug-2007 Intent (J2930)By: Sofia Younger DO Comments: given in left buttocks.lot # [id number]\Exp 02/2010 SPECIMEN HNDLNG/TRNSPRT, OFFC > On: 16-Aug-2007 Intent LAB (48216)By: Sofia Younger DO B 12 Injection, 1000 mcg On: 01-Aug-2007 Intent (J3420)By: Prema Lei Comments: Lot #[id number]-05/12Site-left myagabtCrbm1axnfust by Debbie Lei LPN CT - ChestBy: Sarah Pizano MD On: 01-Aug-2007 Intent Sarah Pizano MD FLU VAC, SPLIT, >3 YEARS, On: 18-Apr-2007 Intent INTRAMUSC (53835)By: Sarah Pizano MD, MD, Dana M IMMUNIZ ADMNIN, 1 VAC, On: 18-Apr-2007 Intent SNGL/COMBO (81666)By: Sarah Pizano MD, MD, Dana M B [...] HNDLNG/TRNSPRT, OFFC > On: 10-Oct-2006 Intent LAB (63516)By: Sarah Pizano MD, MD, Dana M Solu -Medrol Injection, 125 mg On: 16-Sep-2006 Intent (J2930)By: Sarah Pizano MD Comments: lot # [id number] exp 04-11 [address] rt. gluteal by Sarah Chacon lpn, MD Pulse Oximetry (87995)By: On: 16-Sep-2006 Intent Sarah Pizano MD, MD, Dana M Aerosol Treatment (49923)By: On: 16-Sep-2006 Intent Sarah Pizano MD, MD, Dana M Pulse Oximetry (28081)By: On: 04-Aug-2006 Intent Sarah Pizano MD, MD, Dana M EKG (36357)By: Sarah Pziano MD On: 08-Jul-2006 Intent Sarah Morfin MD IMMUNIZ ADMNIN, 1 VAC, On: 06-May-2006 Intent SNGL/COMBO (14710)By: Ramiro ABBOTT, Peg FLU VAC, SPLIT, >3 YEARS, On: 06-May-2006 Intent INTRAMUSC (57483)By: Ramiro ABBOTT, Comments: Lot #:Expiration date:Amount given:Route: imSite given:r armGiven by: galina golden lpn Peg Echo CompleteBy: Dima DURAN, On: 19-Apr-2006 Intent Sarah Gh[address] MD CT - Abdomen & PelvisBy: Dima On: 19-Apr-2006 Intent Sarah DURAN MD, Dana M Comments: ?obstruction, pancreatitis, attention kidney cyst send to [facility] gastrologist [facility] Planned Medications INJECTION, METHYLPREDNISOLONE SODIUM SUCCINATE, UP TO 125 MG Ordered: 14-Oct-2011 Pending Sofia Younger DO INJECTION, METHYLPREDNISOLONE SODIUM SUCCINATE, UP TO 125 MG Ordered: 04-Feb-2015 Pending Ciesa OILING MACHINE OPERATOR, Adeola INJECTION, METHYLPREDNISOLONE SODIUM SUCCINATE, UP TO 125 MG Ordered: 05-Feb-2015 Pending Ciesa OILING MACHINE OPERATOR, Adeola INJECTION, TRIAMCINOLONE ACETONIDE, NOT OTHERWISE SPECIFIED, [...] Advance Directives Name Dates Details Immunization Registry [place] - Effective on Effective: 29-Apr-201704/29/2017. Expiration date [...] ANEMIA DUE TO DIETARY IRON DEFICIENCY (280.1), [facility] V73.21 [facility] (Renamed from [facility]) [facility] Office Visit On: 29-Jun-2012 [...] docs for this Dr Jacob rabago at [facility]-- -- feels similiar to what she had [...] months. Note for Fever: pt had epidural 4-91-31Ikmxxsldd Diagnosis: Dehydration(276.51), Abdominal Pain,Generalized (789.07), FEVER (780.6) [...] care visit: swelling better with aldactone, reviewed practice management consultant's letter use compression, work up from [...] weekend , bite by flies, camp in [facility], no fever abd pain still hit [...] chemistry (790.6) [facility] Payers [facility] Donovan COBIAN; junie guarantor
--- OUTSIDE RECORDS SUMMARY | 2018-08-02 05:59 | XMS RPT_ITS | Continuity of Care Document ---
:1955 Author Organization [facility] Address [address] [place] [address] Phone Care Team Providers Name Role Phone Dima DURAN, Sarah Rebollar Unavailable Antonino Lucas MD Unavailable Princess DURAN, Bradnan Buchanan Unavailable Senthil Romero Unavailable Jeremy DURAN, [...] cervical.doing every 6 months. george leaving to [place]. reconmmend Dr. romero and i talk to [...] qd Active Comments:plus 1000IU Vitamin D3 Creon 54346 UNIT Oral Capsule Delayed Release Particles 2 [...] MD, Dana M Start : 30-Nov-2016 Active Birch Run 5-325 MG Oral Tablet 1 (one) Tablet [...] Start : 14-Apr-2018 Active Vitamin D (Ergocalciferol) 74217 UNIT Oral Capsule 1 (one) capsule twice [...] MD, Dana M Start : 06-Feb-2018 Active Comments:[id number] called to [facility] ADVAIR DISKUS, 100-50MCG/DOSE [...] End : 24-Aug-2012 Inactive CALCIUM 500/VITAMIN D, [id number] (Oral Tablet) 1 (one) Tablet daily for [...] : 09-Mar-2016 End : 04-Jun-2016 Inactive Drisdol 40084 UNIT Oral Capsule 1 Capsule two times [...] : 21-Dec-2007 End : 14-Mar-2008 Inactive Nystatin 977380 UNIT/GM External Powder 1 Powder bid for [...] cervical.doing every 6 months. george leaving to [place]. reconmmend Dr. romero and i talk to [...] Procedures Procedure Dates Details [place] ([address]) Date: 01-Oct-2016 Cancelled Cholecystectomy Completed GASTRIC BYPASS, OPEN (12203) Completed Comments: 1997, Dr. lindsay did for recurrent pancreatitis, this is what helped her. Hysterectomy; Abdominal Completed JEJUNOSTOMY (78780) Completed Comments: 1995 closed 1997 when had gastric bypass, because of pancreatitis and was tube feed for 2 years Date Value Details 21-Mar-2018 Dexa Bone Density Study Result: Comments: See Note; NOTES: [facility] Imaging Services [address] [place] [address] Dexa Bone Density Study MR#: [id number] Acct: [id number] Name: JOSE J COBIAN Rep #: [id number] : 1955 F 63 From: Bartolome Patel MD PCP: Sarah Pizano MD Status: REG CLI Study: Dexa Bone Density Study Date of Exam: 03/21/18 Exam# [id number] Ordering Dr: Sarah Pizano MD STUDY: D [...] Bartolome Patel MD at 15:07 EDT Tel [phone], Service support , CC: Sarah Pizano MD Singe Winder: Signed 21-Mar-2018 SCREENING MAMM (CAD), BILAT Result: Comments: See Note; NOTES: [facility] Imaging Services [address] [address] SCREENING MAMM (CAD), BILAT MR#: [id number] Acct: [id number] Name: JOSE J COBIAN Rep #: [id number] : 1955 F 63 From: Bartolome Patel MD PCP: Sarah Pizano MD Status: REG CLI Study: SCREENING MAMM (CAD), BILAT Date of Exam: 03/21/18 Exam# [id number] Ordering Dr: Sarah Pizano MD MAMMOGRAPHY - [...] biopsy of a clinically suspicious abno rmality. [id number] Electronically Signed: Bartolome Patel MD at 13:21 EDT Tel [phone], Service support , CC: Sarah Pizano MD Singe Winder: Signed 07-Nov-2017 Operative Report Result: Comments: See Note; NOTES: [facility] Medical Records Department [address] [place] [address] Operative Report 11/07/17 1027 MR#: [id number] Acct: [id number] Name: JOSE J COBIAN Rep #: [id number] : 1955 62 From: Bubba Romero MD PCP: Sarah Pizano MD Status: REG [facility] Y Location: [place] [address] Problem List (1) Disc disease, degenerative, lumbar [...] 4 Views Result: Comments: See Note; NOTES: [facility] Imaging Services [address] [place] [address] L/S Spine Min 4 Views MR#: [id number] Acct: [id number] Name: JOSE J COBIAN Rep #: [id number] : 1955 F 62 From: Bartolome Patel MD PCP: Sarah Pizano MD Status: [facility] Study: L/S Spine Min 4 Views Date of Exam: 11/07/17 Exam# [id number] Ordering Dr: Bubba Romero MD PROCEDURE : [...] Bartolome Patel MD at 11:01 EDT Tel [phone], Service support , CC: Sarah Pizano MD; Bubba Romero Singe Winder: Signed 04-Oct-2017 Cardiology Visit Report Result: Comments: See Note; NOTES: [facility] [address] [place] [address]. [address] [place] [address] OFFICE VISIT Date of Service: 10/03/17 MR#: [id number] Acct: [id number] Name: JOSE J COBIAN Rep #: [id number] : 1955 Provider: Chanel Shaw Age/Sex: 62/F Location: [facility] Status: Signed HPI HPI Details: JOSE [...] Intake Visit Reasons: NOT SEEN SINCE 05/2016 Custom Bow Maker Required: No Accompanied by: Is patient in [...] mg PO DAILY@0800 10/20/15 [History Confirmed 10/03/17] [place] codone Bitart/Apap 5-325 [Birch Run 5/325] 1 tab PO Q4H PRN PRN [...] infarction beginning age 61's, has had several ID's CAD (co ronary artery disease) history of [...] Operative Report Result: Comments: See Note; NOTES: [facility] Medical Records Department [address] [place] [address] Operative Report 09/05/17 0944 MR#: [id number] Acct: [id number] Name: JOSE J COBIAN Rep #: [id number] : 1955 62 From: Bubba Romero MD PCP: Sarah Pizano MD Status: [facility] Y Location: [place] [address] Problem List (1) Lumbosacral spondylosis Status: Chronic [...] 4 Views Result: Comments: See Note; NOTES: [facility] Imaging Services [address] [place] [address] L/S Spine Min 4 Views MR#: [id number] Acct: [id number] Name: JOSE J COBIAN Rep #: [id number] : 1955 F 62 From: Bartolome Patel MD PCP: Sarah Pizano MD Status: [facility] Study: L/S Spine Min 4 Views Date of Exam: 09/05/17 Exam# [id number] Ordering Dr: Bubba Romero MD PROCEDURE : [...] Bartolome Patel MD at 9:02 EST Tel [phone], Service support , CC: Sarah Pizano MD; Bubba Romero Singe Winder: Signed 08-Aug-2017 Operative Report Result: Comments: See Note; NOTES: [facility] Medical Records Department [address] [place] [address] Operative Report 08/08/17 1408 MR#: [id number] Acct: [id number] Name: JOSE J COBIAN Rep #: [id number] : 1955 62 From: Bubba Romero MD PCP: Sarah Pizano MD Status: DEP [facility] Y Location: [facility] Problem List (1) Lumbosacral radiculopathy Status: Chronic [...] 3 Views Result: Comments: See Note; NOTES: [facility] Imaging Services [address] [place] [address] Lumbar Spine 2 or 3 Views MR#: [id number] Acct: [id number] Name: JOSE J COBIAN Rep #: [id number] : 1955 F 62 From: Bartolome Patel MD PCP: Sarah Pizano MD Status: [facility] Study: Lumbar Spine 2 or 3 Views Date of Exam: 08/08/17 Exam# [id number] Ordering Dr: Bubba Romero MD P ROCEDURE: [...] Bartolome Patel MD at 11:32 EST Tel [phone], Service support , CC: Sarah Pizano MD; Bubba Romero Singe Winder: Signed 09-May-2017 Operative Report Result: Comments: See Note; NOTES: [facility] Medical Records Department [address] [place] [address] Operative Report 05/09/17 1348 MR#: [id number] Acct: [id number] Name: JOSE J COBIAN Rep #: [id number] : 1955 62 From: Bubba Romero MD PCP: Sarah Pizano MD Status: REG [facility] Y Location: [place] [address] Report of Operation Date of Procedure: 05/09/17 [...] Spine Inj Result: Comments: See Note; NOTES: [facility] Imaging Services [address] [place] [address] Fluor Guidance for Spine Inj MR#: [id number] Acct: [id number] Name: JOSE J COBIAN Rep #: [id number] : 1955 F 62 From: Bartolome Patel MD PCP: Sarah Pizano MD Status: [facility] Study: Fluor Guidance for Spine Inj Date of Exam: 05/09/17 Exam# [id number] Ordering Dr: Bubba Romero MD PROCEDURE: Caudal [...] Bartolome Patel MD at 14:03 EST Tel [phone], Service support , CC: Sarah leigh MD; Bubba Romero Singe Winder: Signed 29-Apr-2017 L/S Spine Min 4 Views Result: Comments: See Note; NOTES: [facility] Imaging Services [address] [place] [address] L/S Spine Min 4 Views MR#: [id number] Acct: [id number] Name: JOSE J COBIAN Rep #: [id number] : 1955 F 62 From: Feliberto Sim MD PCP: Sarah Pizano MD Status: REG CLI Study: L/S Spine Min 4 Views Date of Exam: 04/29/17 Exam# [id number] Ordering Dr: Lizeth Sanches STUDY: X-RAY - [...] , CC: Lizeth Sanches; Sarah Pizano MD Singe Winder: Signed 21-Mar-2017 Operative Report Result: Comments: See Note; NOTES: [facility] Medical Records Department [address] [place] [address] Operative Report 03/21/17 0841 MR#: [id number] Acct: [id number] Name: JOSE J COBIAN Rep #: [id number] : 1955 62 From: Bubba Romero MD PCP: Sarah Pizano MD Status: [facility] Y Location: [facility] Problem List (1) Cervical spine degeneration Status: [...] 5 Views Result: Comments: See Note; NOTES: [facility] Imaging Services [address] [place] [address] Cerv Spine 4 or 5 Views MR#: [id number] Acct: [id number] Name: JOSE J COBIAN Rep #: [id number] : 1955 F 62 From: Daniel Manzano DO PCP: Sarah Pizano MD Status: [facility] Study: Cerv Spine 4 or 5 Views Date of Exam: 03/21/17 Exam# [id number] Ordering Dr: Bbuba Romero MD STUDY: X-RAY - CERVICAL SPINE REASON FOR EXAM: Female, 62 years old. Cervical block TECHNIQUE: 4 view(s) of the cervical spine were obtained. COMPARISON: None FINDINGS: Face t block was performed with 4 spot fluoroscopy images obtained. Total fluoroscopy time 14.7 seconds. Please see performing physician's report for further details ORD ER #: [id number] RAD/Cerv Spine 4 or 5 Views IMPRESSION: As above Electronically Signed: Daniel Manzano DO at 16:12 EDT Tel , Service support , CC: Sarah Pizano MD; Bubba Romero Singe Winder: Signed 17-Jan-2017 Operative Report Result: Comments: See Note; NOTES: [facility] Medical Records Department [address] [place] [address] Operative Report 01/17/17 1246 MR#: [id number] Acct: [id number] Name: JOSE J COBIAN Rep #: [id number] : 1955 61 From: Bubba Romero MD PCP: Sarah Pizano MD Status: DEP [facility] Y Location: [facility] Problem List (1) Cervical spine degeneration Status: [...] 5 Views Result: Comments: See Note; NOTES: [facility] Imaging Services [address] [place] [address] Verdana 4d Cerv Spine 4 or 5 Views MR#: [id number] Acct: [id number] Name: JOSE J COBIAN #: [id number] : 1955 F 61 From: Tonia Galvan MD PCP: Sarah Pizano MD Status: [facility] Study: Cerv Spine 4 or 5 Views Date of Exam: 01/17/17 Exam# [id number] Ordering Dr: Bubba Romero MD STUDY: X-RAY [...] Tonia Galvan MD at 16:36 EDT Tel [phone], Service support , CC: Sarah Pizano MD; Bubba Romero Singe Winder: Signed 09-Oct-2016 Abdomen/Pelvis WITH Contrast Result: Comments: See Note; NOTES: [facility] Imaging Services [address] [place] [address] [place] [address] 4d Abdomen/Pelvis WITH Contrast MR#: [id number] Acct: [id number] Name: VIRAJ COBIAN Rep #: [id number] : 1955 F 61 From: Enrike Peres PCP: Sarah Pizano MD Status: REG CLI Study: Abdomen/Pelvis WITH Contrast Date of Exam: 10/09/16 Exam# [id number] Ordering Dr: Sarah Pizano MD STUDY: CT [...] at 9:47 EDT Tel , Service support [phone], CC: Sarah Pizano MD Singe Winder: Signed 23-Aug-2016 Operative Report Result: Comments: See Note; NOTES: [facility] Medical Records Department [address] [place] [address] Operative Report MR#: [id number] Acct: [id number] Name: JOSE J COBIAN Rep #: [id number] : 1955 61 From: Bubba Romero MD PCP: Sarah Pizano MD Status: DEP [facility] DATE OF SERVICE: 08/09/2016 DATE OF PROCEDURE: [...] indicated. Bubba Romero MD T: NTS JOB: [id number] 08/23/16 1357 <Electronica lly signed by Bubba Romero MD> Date Bubba Romero MD Cosigner Signature (If Indicated): Date ____ CC: Sarah Pizano MD; Bubba Romero Date Dictated: 08/09/16 1311 Date Transcribed: 08/09/16 131 Singe Winder: Signed 09-Aug-2016 Thoracic Spine 3 Views Result: Comments: See Note; NOTES: [facility] Imaging Services [address] [place] [address] Verdana 4d Thoracic Spine 3 Views MR#: [id number] Acct: [id number] Name: JOSE J COBIAN Chantale p #: [id number] : 1955 F 61 From: Azalia Fernandes MD PCP: Sarah Pizano MD Status: [facility] Study: Thoracic Spine 3 Views Date of Exam: 08/09/16 Exam# [id number] Ordering Dr: Bubba Romero MD [facility] DY: X-RAY - THORACIC SPINE [...] at 1 2:18 EST , Service support [phone], CC: Sarah Pizano MD; Bubba Romero Singe Winder: Signed 01-Jun-2016 PT D/C of Non Returning Pt (1) Result: Comments: See Note; NOTES: [facility] [address] [place] [address]. [address] [place] [address] Fax REHABILITATION SERVICES DISCHAR GE SUMMARY MR#: [id number] Acct: [id number] Name: JOSE J COBIAN Rep #: [id number] Operative Report Result: Comments: See Note; NOTES: [facility] Medical Records Department [address] [facility] [place] [address] Operative Report MR#: [id number] Acct: [id number] Name: JOSE J COBIAN Rep #: [id number] : 1955 61 From: Bubba Romero MD PCP: Sarah Pizano MD Status: DEP [facility] DATE OF SERVICE: 03/22/2016 DATE OF SERVICE: [...] possible repeat of the procedure if indicated. Bbuba Romero MD T: [facility] JOB: [id number] 04/05/16 1351 <E lectronically signed by Bubba Romero MD> Date Bubba Romero MD Cosigner Signature (If Indicated): Date CC: Sarah Pizano MD; Bubba Romero Date Dictated: 03/22/161415 Date Transcribed: 03/22/161415 Singe Winder: Signed 01-Apr-2016 Echocardiogram Complete Result: Comments: See Note; NOTES: [facility] Cardiovascular Services [address] [place] [address] Echo Complete 04/01/16 1256 MR#: [id number] Acct: [id number] Name: JOSE J COBIAN Rep #: [id number] : 1955 61 From: Antonino Lucas MD Attending Dr: Antonino Lucas MD Status: REG CLI Ordering Dr: Antonino Lucas MD Date: 04/01/16 Location: [facility] Sex: F C Admitted: Reason For [...] Dictated: 04/01/16 1256 Date Transcribed: 04/01/16 1515 Singe Winder: Signed 22-Mar-2016 Breast Limited Unilateral Result: Comments: See Note; NOTES: [facility] Imaging Services [address] [place] [address] Verdana 4d Breast Limited Unilateral MR#: [id number] Acct: [id number] Name: JOSE J COBIAN Rep #: [id number] : 1955 F 61 From: Bartolome Patel MD PCP: Sarah Pizano MD Status: REG CLI Study: Breast Limited Unilateral Date of Exam: 03/22/16 Exam# [id number] Ordering Dr: Zack Pizano MD STUDY: ULTRASOUND [...] Bartolome Patel MD at 12:35 EDT Tel [phone], Service support [phone], CC: Sarah Pizano MD Singe Winder: Signed 19-Mar-2016 Thoracic Spine 3 Views Result: Comments: See Note; NOTES: [facility] Imaging Services [address] [place] [address] Verdana 4d Thoracic Spine 3 Views MR#: [id number] Acct: [id number] Name: JOSE J COBIAN ep #: [id number] : 1955 F 61 From: Bartolome Patel MD PCP: Sarah Pizano MD Status: [facility] Study: Thoracic Spine 3 Views Date of Exam: 03/22/16 Exam# [id number] Ordering Dr: Bubba Romero MD STUDY: X-RAY [...] Bartolome Patel MD at 14:10 EDT Tel [phone], Service support [phone], CC: Sarah vasquez MD; Bubba Romero Singe Winder: Signed 19-Mar-2016 Inital Evaluation (1) - PT Result: Comments: See Note; NOTES: [facility] [address] [place] [address]. [address] [place], [place] [address] Fax REHABILITATION SERVICES INITIA L EVALUATION MR#: [id number] Acct: [id number] Name: JOSE J COBIAN Rep #: [id number] : 1955 61 From: Mac Smith Referring [...] to be FAXED BACK to us at [phone] for Medicare purposes. Please let me know [...] AND CAD Result: Comments: See Note; NOTES: [facility] Imaging Services [address] [place] [address] Verdana 4d Bilat Scrn Digital AND CAD MR#: [id number] Acct: [id number] Name: JOSE J COBIAN Rep #: [id number] : 1955 F 61 From: Bartolome Patel MD PCP: Sarah Pizano MD Status: REG CLI Study: Bilat Scrn Digital AND CAD Date of Exam: 03/16/16 Exam# [id number] Ordering Dr: Sarah Pizano MD MAMMOGRAPHY - [...] delay biopsy of a clinically suspicious abnormality. [id number] Electronically Signed: Bartolome Patel MD at 15:06 EDT Tel [phone], Service supp ort [phone], CC: Sarah Pizano MD Singe Winder: Signed 16-Mar-2016 Dexa Bone Density Study (HP) Result: Comments: See Note; NOTES: [facility] Imaging Services [address] [place] [address] Verdana 4d Dexa Bone Density Study (HP) MR#: [id number] Acct: [id number] Name: MAURI COBIAN ZACK Walker Rep #: [id number] : 1955 F 61 From: Bartoolme Patel MD PCP: Sarah Pizano MD Status: REG CLI Study: Dexa Bone Density Study (HP) Date of Exam: 03/16/16 Exam# [id number] Ordering Dr: Sarah Deng MD STUDY: DUAL [...] Bartolome Patel MD at 14:15 EDT Tel [phone], Service support [phone], CC: Sarah Pizano MD Singe Winder: Signed 22-Feb-2016 History and Physical Exam Result: Comments: See Note; NOTES: [facility] Medical Records Department [address] [place] [address] History and Physical 02/22/162054 MR#: [id number] Acct: [id number] Name: JOSE J COBIAN Rep #: [id number] : 1955 60 From: An Dent DO [...] was seen in the emergency room at [facility] with a chief complaint of precordial chest [...] - Mediport placement Psychiatric Hist ory: Anxiety 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 Lives: Spouse/ Significant Other Smoking Status: [...] 44.6 L Lymph % (Auto) 46.1 H Briscoe % (Auto) 6.9 Eos % (Auto) 2.0 [...] albuterol inhaler as needed #5 anxiety 02/22/16 4229 <Electronically signed by An Dent DO> Date An schmidt DO Cosigner Signature (if applicable): Date CC: Sarah Pizano MD; An Dent DO Signed 22-Feb-2016 Chest 1 View (Portable) Result: Comments: See Note; NOTES: [facility] Imaging Services [address] [place] [address] Verdana 4d Chest 1 View (Portable) MR#: [id number] Acct: [id number] Name: JOSE J COBIAN Rep #: [id number] : 1955 F 60 From: Kim Dsouza MD PCP: Sarah Pizano MD Status: REG ER Study: Chest 1 View (Portable) Date of Exam: 02/22/16 Exam# [id number] Ordering Dr: Mac Chi MD STUDY: X-RAY CHEST REASON FOR EXAM: Female, 60 years old. Chest pain TECHNIQUE: Single AP portable view of the chest. COMPARISON: February 07, 2015 FINDINGS: There is a st able right central venous line. The lungs are clear and expanded. There is no demonstrated pleural abnormality. Normal size heart. Normal mediastinum and uy. Normal visualized pulmonary arteries. No rmal visualized aortic arch and descending thoracic aorta. Normal visualized thoracic spine. Normal visualized ribs, clavicles, and shoulders. There are stable epigastric surgical clips. RAD/Chest 1 View (Portable) IMPRESSION: No acute disease is demonstrated. Electronically Signed: Kim Dsouza MD at 19:35 EDT , Service support [phone], CC: Sarah Pizano MD; Mac Chi MD Singe Winder: Signed 16-Feb-2016 Thoracic Spine 3 Views Result: Comments: See Note; NOTES: [facility] Imaging Services [address] [place] [address] Verdana 4d Thoracic Spine 3 Views MR#: [id number] Acct: [id number] Name: JOSE J COBIAN Yamilka ep #: [id number] : 1955 F 60 From: Kirk Wall MD PCP: Sarah Pizano MD Status: REG CLI Study: Thoracic Spine 3 Views Date of Exam: 02/16/16 Exam# [id number] Ordering Dr: Sarah Pizano MD UDY: X-RAY [...] at 21:50 EDT , S maurilioe support [phone], CC: Sarah Pizano MD Singe Winder: Signed 03-Nov-2015 Operative Report Result: Comments: See Note; NOTES: [facility] Medical Records Department [address] [place] [address] Operative Report MR#: [id number] Acct: [id number] Name: JOSE J COBIAN Rep #: [id number] : 1955 60 From: Bubba Romero MD PCP: Sarah Pizano MD Status: [facility] DATE OF SERVICE: 10/20/2015 DATE OF PROCEDURE: [...] indicated. Lidia Romero MD T: NTS JOB: [id number] 11/03/15 8259 <Electronically signed by Bubba Romero MD> Date Bubba Romero MD Co signer Signature (If Indicated): Date CC: Sarah Pizano MD; Bubba Romero Date Dictated: 10/20/15 1351 Date Transcribed: 10/20/15 135 Singe Winder: Signed 20-Oct-2015 Cerv Spine 2 or 3 Views Result: Comments: See Note; NOTES: [facility] Imaging Services [address] [place] [address] Verdana 4d Cerv Spine 2 or 3 Views MR#: [id number] Acct: [id number] Name: JOSE J NOWAK Rep #: [id number] : 1955 F 60 From: Bartolome Patel MD PCP: Sarah Pizano MD Status: [facility] Study: Cerv Spine 2 or 3 Views Date of Exam: 10/20/15 Exam# [id number] Ordering Dr: Bubba Romero MD STUDY: X-RAY [...] Bartolome Patel MD at 13:45 EDT Tel [phone], Service support [phone], RAD/Cerv Spine 2 or 3 Views IMPRESSION: Fluoroscopic services provided for right 4 through C7 facet block. Electronically Signed: Bartolome Patel MD at 13:45 EDT Tel [phone], Service support [phone], CC: Sarah Pizano MD; Bubba Romero Singe Winder: Signed 18-Aug-2015 Operative Report Result: Comments: See Note; NOTES: [facility] Medical Records Department [address] [place] [address] Operative Report MR#: [id number] Acct: [id number] Name: JOSE J COBIAN Rep #: [id number] : 1955 60 From: Bubba Romero MD PCP: Sarah Pizano MD Status: [facility] DATE OF SERVICE: 08/04/2015 DATE OF SERVICE: [...] d. Bubba Romero MD T: NTS JOB: [id number] 08/18/15 0927 <Electronically signed by Bubba Romero MD> Date Bubba copeland MD Cosigner Signature (If Indicated): Date CC: Sarah Pizano MD; Bubba Romero Date Dictated: 08/04/151432 Date Transcribed: 08/04/151432 Singe Winder: Signed 04-Aug-2015 Cerv Spine 2 or 3 Views Result: Comments: See Note; NOTES: [facility] Imaging Services [address] [place] [address] Verdana 4d Cerv Spine 2 or 3 Views MR#: [id number] Acct: [id number] Name: JOSE J NOWAK Rep #: [id number] : 1955 F 60 From: Kirk Wall MD PCP: Sarah Pizano MD Status: [facility] Study: Cerv Spine 2 or 3 Views Date of Exam: 08/04/15 Exam# [id number] Ordering Dr: Osiel Romero MD STUDY: X-RAY [...] MD at 16:28 EST , Service support [phone], RAD/Cerv Spine 2 or 3 Views IMPRESSION: Needle positions as above. Electronically Signed: Kirk Wall MD at 16:28 EST , Service support [phone], CC: Sarah Pizano MD; Bubba Romero Singe Winder: Signed 02-Jul-2015 Hip min 2 Views Result: Comments: See Note; NOTES: [facility] Imaging Services [address] [place] [address] Verdana 4d Hip min 2 Views MR#: [id number] Acct: [id number] Name: VIRAJ COBIAN Rep #: [id number] : 1955 F 60 From: Tuan Boyd MD PCP: Sarah Pizano MD Status: REG CLI Study: Hip min 2 Views Date of Exam: 07/02/15 Exam# [id number] Ordering Dr: Sarah Pizano MD S TUDY: [...] at 12:42 EST Tel , Service support [phone], Fax RAD/Hip min 2 Views IMPRESSION: Normal x-ray examination of the hip. Electronically Signed: Lucius Boyd MD at 12:42 EST Tel , Servic e support [phone], CC: Sarah Pizano MD Singe Winder: Signed 24-Jun-2015 Pelvis 1 or 2 Views Result: Comments: See Note; NOTES: [facility] Imaging Services [address] [place] [address] Verdana 4d Pelvis 1 or 2 Views MR#: [id number] Acct: [id number] Name: JOSE J COBIAN Rep #: [id number] : 1955 F 60 From: Prosper Dumont MD PCP: Sarah Pizano MD Status: REG CLI Study: Pelvis 1 or 2 Views Date of Exam: 06/24/15 Exam# [id number] Ordering Dr: Tuan Pizano MD STUDY: X-RAY [...] at 11:20 EST Tel , Service support [phone], RAD/Pelvis 1 or 2 Views IMPRESS ION: There is narrowing with cortical sclerosis and osteophyte formation of the sacroiliac joint consistent with degenerative osteoarthritic changes. Electronically Signed: Lavell Dumont MD 08/26 at 11:20 EST Tel , Service support [phone], CC: Sarah Pizano MD Singe Winder: Signed 07-Feb-2015 Chest PA and Lateral Result: Comments: See Note; NOTES: [facility] Imaging Services [address] [place] [address] Radiology Report MR#: [id number] Acct: [id number] Name: JOSE J COBIAN Rep #: [id number] : 1955 F 59 From: Baldemar Torres DO PCP: Sarah Pizano MD Status: REG CLI Study: Chest PA and Lateral Date of Exam: 02/07/15 Exam# [id number] Ordering Dr: Pamella Saavedra STUDY: X-RAY CHES [...] Baldemar Torres DO at 19:14 EDT Tel [phone], Service support , RAD/Chest PA and Lateral IMPRESSION: No acute cardiopulmonary disease or interval change. Electronically Signed: Baldemar Torres DO at 19: 14 EDT Tel [phone], Service support [phone], CC: Pamella Saavedra; Sarah Pziano MD Singe Winder: Signed 05-Feb-2014 [facility] [employer] Result: Comments: See Note; NOTES: [facility] Imaging Services [address] [place] [address] Breast Imaging Report MR#: [id number] Acct: [id number] Name: JOSE J COBIAN Rep #: [id number] : 1955 F 58 From: Bartolome Patel MD PCP: Sarah Pizano MD Status: REG CLI Exam# [id number] Ordering Dr: Sarah Pizano MD MAMMOGRAPHY - [...] Bartolome Patel MD at 13:16 EDT Tel [phone], Service support [phone], CC: Sarah Pizano MD Singe Winder: Signed 06-Jun-2013 Abdomen/Pelvis with Contrast Result: Comments: See Note; NOTES: [facility] Imaging Services [address] [place] [address] CAT Scan Report MR#: [id number] Acct: [id number] Name: JOSE J COBIAN Rep #: [id number] : 1955 F 58 From: Tuan Atkins MD PCP: Sarah Pizano MD Status: REG CLI Study: Abdomen/Pelvis with Contrast Date of Exam: 06/06/13 Exam# [id number] Ordering Dr: Sarah Pizano MD STUD Y: [...] M.D. at 0:12 EST , Service support [phone], CC: Sarah Pizano MD Singe Winder: Signed Immunization Name Dates Details Influenza (3 [...] Active Living Situation Comments: Lives with spouse. 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 [...] smoker Vital Signs Date Test Result Details 46-Yws-895483:36 Temperature 97.9 f Comments: Method: Temporal Pulse [...] Value Details 03-Apr-20188:00 Protime w/INR Fingerstick Comments: [facility] Mymh[address] [place], [place] [id number] INR ISTAT 1.10 (Normal) Comments: Critical Value > 3.5 PROTIME ISTAT 13.7 {SEC} (Normal) Range: 11.9-14.4 Comments: Reference Range 11.9 - 14.4 :23 Amylase 89 U/L (Normal) Comments: PATIENT NOT FASTINGPERFORMED BY: [facility] [id number] Range: 31-124 :23 CBC With Differential/Platelet Comments: PATIENT NOT FASTINGPERFORMED BY: [facility] [id number] Immature Grans (Abs) 0.0 {x10E3/uL} (Normal) Range: [...] 3.77-5.28 WBC 4.2 {x10E3/uL} (Normal) Range: 3.4-10.8 20-Umg-461915:23 Comp. Metabolic Panel (14) Comments: PATIENT NOT FASTINGPERFORMED BY: [facility]ETSierra [facility] HospitalObdszl7130 [facility] [id number] ALT (SGPT) 18 [iU]/L (Normal) Range: 0-32 [...] U/L (Abnormal) Comments: PATIENT NOT FASTINGPERFORMED BY: IN[facility]IMETSierra Vista HospitalJleekf9139 [facility] [id number] 4:23 Range: 14-72 09-Amq-982020:23 Urinalysis, Routine Comments: PATIENT NOT FASTINGPERFORMED BY: INFIMET Ucgauf9425 [facility] [id number] Microscopic Examination MICNIP (Normal) Comments: Microscopic not indicated and not performed. Nitrite, Urine Negative (Normal) Urobilinogen,Semi-Qn 1.0 mg/dL (Normal) Range: 0.2-1.0 Bilirubin Negative (Normal) Occult Blood Negative (Normal) Ketones Negative (Normal) Glucose Negative (Normal) Protein Negative (Normal) WBC Esterase Negative (Normal) Appearance Clear (Normal) Urine-Color Yellow (Normal) pH 6.0 (Normal) Range: 5.0-7.5 Specific Hull 1.020 (Normal) Range: 1.005-1.030 :42 Protime w/INR Fingerstick Comments: [facility] [address]zll[address] [place], [place] [address] INR ISTAT 1.00 (Normal) Comments: Critical Value > 3.5 PROTIME ISTAT 12.4 {SEC} (Normal) Range: 11.9-14.4 Comments: Reference Range 11.9 - 14.4 64-Kzb-092456:14 CBC W/Diff, Automated Comments: [facility] [address] [place], [place], [address] ; fu 6-19 Absolute Lymph 1.62 {X10_3/ul} [...] 4.2-5.4 WBC 4.7 K/mm3 (Normal) Range: 4.4-11.0 18-Cab-443723:14 Comprehensive Metabolic Profil Comments: [facility] [address] [place], [address] GAP 5 (Normal) Range: 5-15 CO2 29.0 [...] A.D.A. criteria.Please note revised GLUCOSE reference range zkwzauqki79/02/2018. 66-Fkm-289016:14 Ferritin Comments: [facility] [address] [place], [address] FERRITIN 82 ng/mL (Normal) Range: 8-252 94-Qdl-970339:14 Vitamin B12 558 pg/mL (Normal) Comments: [facility] [address] [place], [address] Range: 211-911 :07 Protime w/INR Fingerstick Comments: [facility] LaboratoryPoint [place] [address] [place] [address] INR ISTAT 1.30 (Normal) Comments: Critical Value > 3.5 PROTIME ISTAT 14.9 {SEC} (Abnormal) Range: 11.9-14.4 Comments: Reference Range 11.9 - 14.4 08-Aug-20179:10 Protime w/INR Fingerstick Comments: [facility] Laboratory[facility] [place] [address] [place] [address] INR ISTAT 1.10 (Normal) Comments: Critical Value > 3.5 PROTIME ISTAT 13.0 {SEC} (Normal) Range: 11.9-14.4 Comments: Reference Range 11.9 - 14.4 41-Wqb-761286:32 Culture, Blood (WB) Comments: [facility] [address]mf[address] [place], [address] CUB See Note (Normal) Comments: Has pt arrived? Y Comments: DR. Mello growth in 5 days. 66-Rko-635526:25 CBC W/Diff, Automated Comments: Comments: DR Cui [facility] [address]eg[address] [place], [address] Absolute Lymph 1.68 {X10_3/ul} (Normal) Range: 0.83-4.51 [...] 4.2-5.4 WBC 3.9 K/mm3 (Abnormal) Range: 4.4-11.0 97-Xtp-909272:25 Culture, Blood (WB) Comments: [facility] [address] [place], [address] CUB See Note (Normal) Comments: Has pt arrived? Y Comments: DR. Mello growth in 5 days. 33-Upr-971986:25 Erythrocyte Sed Rate Comments: Comments: [facility] [address] [place], [address] SED RATE 8 mm/h (Normal) Range: 0-30 25-Zbw-652099:25 Ferritin Comments: Comments: DR [facility] [address] [place], [address] FERRITIN 83 ng/mL (Normal) Range: 8-252 68-Rik-758084:25 Vitamin D,25 Hydroxy Comments: Order Date: 07/20/17[facility] Owjjjwtvrc3133BRITTANY [place]én[place], [address] Vitamin D 25-OH 34.6 ng/mL (Normal) Comments: Vitamin D 25(OH) Status Range Deficiency <20 ng/mL (50nmol/L) Insuffciency 20 - 30 ng/mL (50 - 75 nmol/L) Sufficiency 30 - 100 ng/mL (75 - 250 nmol/L) Toxicity >100 ng/mL (>250 nmol/L) 40-Gns-830718:10 Culture, Urine Comments: [facility] Dzobcmcftg[address]BRITTANY Mén[place], [address] CUUR See Note (Normal) Comments: Order Date: 07/20/17 Comments: DR PIZANO Urine CultureCulture exhibits no growth. 06-Pue-646292:10 Urinalysis, Complete Comments: Order Date: 07/20/17Has pt arrived? YComments: DR Morales was Urine Obtained? CLEAN [facility] Kqfpiclgyv[address]138Kyle [place], [address] MUCUS, URINE 0 SEEN {/hpf} (Normal) BACTERIA [...] (Normal) CLARITY Clear (Normal) COLOR Yellow (Normal) 8-Zzo-475940:48 Protime w/INR Fingerstick Comments: [place] [address] [place] [address] INR ISTAT 1.10 (Normal) Comments: Critical Value > 3.5 PROTIME ISTAT 13.2 {SEC} (Normal) Range: 11.9-14.4 Comments: Reference Range 11.9 - 14.4 :30 Protime w/INR Fingerstick Comments: [place] [address] [place] [address] INR ISTAT 1.10 (Normal) Comments: Critical Value > 3.5 PROTIME ISTAT 12.8 {SEC} (Normal) Range: 11.9-14.4 Comments: Reference Range 11.9 - 14.4 :44 INR Fingerstick Comments: [place] [address] [place] [address] INR ISTAT 1.10 (Normal) Comments: Critical Value > 3.5 :44 Prothrombin Time Fingerstick Comments: [place] [address] [place] [address] PROTIME ISTAT 13.6 {SEC} (Normal) Range: 11.9-14.4 Comments: Reference Range 11.9 - 14.4 68-Czb-560587:17 HgA1C , Office (60009) HgA1C , Office 5.7 % (Normal) Range: 4.6 - 7.1 :08 Metabolic Panel, Basic Comments: PATIENT NOT FASTINGPERFORMED BY: [facility]In[facility] Mullica HillBsnkqh9920 [facility] [id number] ([address]668) Calcium, Serum 9.1 mg/dL (Normal) Range: 8.7-10.3 [...] Glucose, Serum 97 mg/dL (Normal) Range: 65-99 01-Sxu-383881:08 CBC (Auto) (43666) Comments: PATIENT NOT FASTINGPERFORMED BY: INFIMETSheena [place] [address]1370 [facility] [id number] Platelets 306 {x10E3/uL} (Normal) Range: 150-379 RDW 15.6 % (Abnormal) Range: 12.3-15.4 MCHC 32.9 g/dL (Normal) Range: 31.5-35.7 MCH 28.3 pg (Normal) Range: 26.6-33.0 MCV 86 fL (Normal) Range: 79-97 Hematocrit 35.9 % (Normal) Range: 34.0-46.6 Hemoglobin 11.8 g/dL (Normal) Range: 11.1-15.9 RBC 4.17 {x10E6/uL} (Normal) Range: 3.77-5.28 WBC 4.6 {x10E3/uL} (Normal) Range: 3.4-10.8 :08 URINALYSIS W/O MICRO (02939) Comments: PATIENT NOT FASTINGPERFORMED BY: [facility]In[facility] Mullica HillAjyyny9698 [facility] [id number] Microscopic Examination MICNIP (Normal) Comments: Microscopic not indicated and not performed. Nitrite, Urine Negative (Normal) Urobilinogen,Semi-Qn 0.2 mg/dL (Normal) Range: 0.2-1.0 Bilirubin Negative (Normal) Occult Blood Negative (Normal) Ketones Negative (Normal) Glucose Negative (Normal) Protein Negative (Normal) WBC Esterase Negative (Normal) Appearance Clear (Normal) Urine-Color Yellow (Normal) pH 6.0 (Normal) Range: 5.0-7.5 Specific Hull 1.013 (Normal) Range: 1.005-1.030 87-Spd-872729:08 COMPLEMENT C4 (78991) Comments: PATIENT NOT FASTINGPERFORMED BY: [facility] [id number] Complement C4, Serum 16 mg/dL (Normal) Range: 14-44 37-Hnj-476146:08 COMPLEMENT C3 (95910) Comments: PATIENT NOT FASTINGPERFORMED BY: [facility] [id number] Complement C3, Serum 103 mg/dL (Normal) Range: 82-167 15-Fac-454870:08 DNA ANTIBODY-NATV/DBL ST (21037) Comments: PATIENT NOT FASTINGPERFORMED BY: [place] 9594270 [facility] [id number] test code 764373 Anti-DNA (DS) Ab Qn <1 {IU/mL} (Normal) Range: 0-9 Comments: Negative <5 Equivocal 5 - 9 Positive >9 77-Mny-597990:08 Sed Rate Erythrocyte (44947) Comments: PATIENT NOT FASTINGPERFORMED BY: [facility] [id number] Sedimentation Rate-Westergren 4 mm/h (Normal) Range: 0-40 93-Ntp-267290:08 DESIRAE (ANTINUCLEAR ANTIBODY) Comments: PATIENT NOT FASTINGPERFORMED BY: [facility] [id number] (31023) DESIRAE Direct Negative (Normal) 9-Gcu-631348:04 Prothrombin Time w/INR Comments: [facility] [address] [place], [place], [address] INR 1.5 (Normal) PROTIME 17.8 s (Abnormal) Range: 11.7-14.9 61-Kop-673843:45 Prothrombin Time w/INR Comments: [facility] [address] [place], [place], [address](596) INR 3.0 (Normal) PROTIME 30.3 s (Abnormal) Range: 11.7-14.9 09-Oct-20168:51 Serum Creatinine AND GFR Comments: [facility] [address] [place], [address] EST GFR - AA 90 mL/min (Normal) Comments: GFR Calc EST GFR 74 mL/min (Normal) Comments: Non- GFR Calc CREAT,SERUM 0.83 mg/dL (Normal) Range: 0.55-1.02 Comments: The validity of the calculated GFR AND GFRAA in patients over70 years has not been determined. Clinical correlation isessential. :21 LIPASE (24252) Comments: PATIENT NOT FASTINGPERFORMED BY: CB [facility] Dognps3302 [address] RoadDublin [place] [id number] Lipase, Serum 46 U/L (Normal) Range: 14-72 Comments: Please note reference interval change :21 AMYLASE (57293) Comments: PATIENT NOT FASTINGPERFORMED BY: CB [facility] Ddrdqn3640 Vila RoadDublin [place] [id number] Amylase, Serum 65 U/L (Normal) Range: 31-124 :21 CALCIFIDIOL (06924) VIT D 25 Comments: PATIENT NOT FASTINGPERFORMED BY: CB [facility] Dypcis4439 [address]ila RoadDublin [place] [id number] Vitamin D, 25-Hydroxy 25.8 ng/mL (Abnormal) Range: 30.0-100.0 Comments: Vitamin D deficiency has been defined by the [place] ofMedicine and an Endocrine Society practice guideline as alevel of serum 25-OH vitamin D less than 20 ng/mL (1,2).The Endocrine Society went on to further define vitamin Dinsufficiency as a level between 21 and 29 ng/mL (2).1. IOM ([place] of Medicine). 2010. Dietary reference intakes for calcium and D. Lal [place]: The National Academies Press.2. Candelaria MF, Janey NC, Rahul-Everett GROSS, et al. Evaluation, treatment, and prevention of vitamin D deficiency: an Endocrine Society clinical practice guideline. JCEM. 2010; 96(7):1911-30. :21 Ferritin (83223) Comments: PATIENT NOT FASTINGPERFORMED BY: CB [facility] Xhidrc1140 [address] RoadDublin [place] [id number]; fu 10-27 db Ferritin, Serum 10 ng/mL (Abnormal) Range: 15-150 7-Ona-883395:21 Vitamin B-12 (cyanocobalamin) Comments: PATIENT NOT FASTINGPERFORMED BY: [facility]DataBe[facility]6370 [facility] [id number] (64059) Vitamin B12 1888 pg/mL (Abnormal) Range: 211-946 2-Dca-277716:21 METABOLIC PANEL, COMPREHENSIVE Comments: PATIENT NOT FASTINGPERFORMED BY: [facility]Data[facility]6370 [facility] [id number] (66500) ALT (SGPT) 11 [iU]/L (Normal) Range: 0-32 [...] Glucose, Serum 101 mg/dL (Abnormal) Range: 65-99 8-Hdk-319326:21 CBC with auto diff Comments: PATIENT NOT FASTINGPERFORMED BY: MONA iAdvize6370 [facility]ilaSt. [facility] [id number] Information: CLIENT DRAW (47971) Immature Grans (Abs) 0.0 {x10E3/uL} (Normal) Range: [...] 3.77-5.28 WBC 5.7 {x10E3/uL} (Normal) Range: 3.4-10.8 45-Mmd-570145:14 Prothrombin Time w/INR Comments: [facility] [address]diwjfvw[address] [place], [place], [address] INR 1.9 (Normal) Comments: ADDENDA: handled by cardio PROTIME 21.0 s (Abnormal) Range: 11.7-14.9 32-Khj-646106:57 HEPATIC FUNCTION PANEL Comments: PATIENT NOT FASTINGPERFORMED BY: [facility] [id number] (06290) ALT (SGPT) 15 [iU]/L (Normal) Range: 0-32 AST (SGOT) 20 [iU]/L (Normal) Range: 0-40 Alkaline Phosphatase, S 114 [iU]/L (Normal) Range: 39-117 Bilirubin, Direct 0.10 mg/dL (Normal) Range: 0.00-0.40 Comments: Please note reference interval change Bilirubin, Total <0.2 mg/dL (Normal) Range: 0.0-1.2 Albumin, Serum 4.9 g/dL (Abnormal) Range: 3.6-4.8 Protein, Total, Serum 7.1 g/dL (Normal) Range: 6.0-8.5 :57 IGA/IGD/IGG/IGM-EACH (33551) Comments: PATIENT NOT FASTINGPERFORMED BY: [facility] [id number] Immunoglobulin E, Total 50 {IU/mL} (Normal) Range: 0-100 Immunoglobulin M, Qn, Serum 43 mg/dL (Normal) Range: 26-217 Immunoglobulin A, Qn, Serum 131 mg/dL (Normal) Range: 87-352 Immunoglobulin G, Qn, Serum 753 mg/dL (Normal) Range: 700-1600 :57 EBV ACUTE PFOF IgG/IgM Comments: PATIENT NOT FASTINGPERFORMED BY: [facility] [id number] (70982) Interpretation: [facility] (Normal) Comments: EBV Interpretation Chart [...] <36.0 Equivocal 36.0 - 43.9 Positive >43.9 35-Rdz-154418:57 LDH (LD) (LACTATE DEHYDROGENASE) Comments: PATIENT NOT FASTINGPERFORMED BY: [address] [id number] (36176) LDH 191 [iU]/L (Normal) Range: 119-226 :57 HIV-1 & 2 ANTBDY-SNGL SHAWN Comments: PATIENT NOT FASTINGPERFORMED BY: [address] [id number] (74695) HIV Screen 4th Generation wRfx Non Reactive (Normal) :57 HEPATITIS PANEL (03431) Comments: PATIENT NOT FASTINGPERFORMED BY: [place] [address] [facility] [id number] Hep C Virus Ab 0.1 {s/co_ratio} (Normal) Range: 0.0-0.9 Comments: Negative: < 0.8 Indeterminate: 0.8 - 0.9 Positive: > 0.9 . The CDC recommends that a positive HCV antibody result be followed up with a HCV Nucleic Acid Amplification test (587099). Hep B Core Ab, IgM Negative (Normal) HBsAg Screen Negative (Normal) Hep A Ab, IgM Negative (Normal) :56 Culture, Blood (WB) Comments: [facility] [address] [place], [place], [id number] CUB See Note (Normal) Comments: BCNo growth [...] Antibody Present - Antibody Ab sentPerformed at: [address] [id number] Director: Neo Campos PhD, Phone: [phone] EB-NAg [id number] 136.0 U/mL (Abnormal) Range: 0.0-17.9 Comments: Negative <18.0 Equivocal 18.0 - 21.9 Positive >21.9 EB-VCA PbQ15358 255.0 U/mL (Abnormal) Range: 0.0-17.9 Comments: Negative <18.0 Equivocal 18.0 - 21.9 Positive >21.9 EB-EA IgG 75959 18.4 U/mL (Abnormal) Range: 0.0-8.9 Comments: Hepatitis A, Hepatitis C and HIV antibodies may cross-reactwith this assay. Negative < 9.0 Equivocal 9.0 - 10.9 Positive >10.9 EB-VCA WhR22265 36.1 U/mL (Abnormal) Range: 0.0-35.9 Comments: A second sample should be collected and tested no less than2-4 weeks. Negative <36.0 Equivocal 36.0 - 43.9 Positive >43.9 7-Rmx-954093:56 Ferritin Comments: [facility] [address] [place] [address], [id number] FERRITIN 34 ng/mL (Normal) Range: 8-252 8-Ove-363328:56 Vitamin D,25 Hydroxy Comments: [facility] [address] [place], [address] Vitamin D 25-OH 29.2 ng/mL (Normal) Comments: Vitamin D 25(OH) Status Range Deficiency <20 ng/mL (50nmol/L) Insuffciency 20 - 30 ng/mL (50 - 75 nmol/L) Sufficiency 30 - 100 ng/mL (75 - 250 nmol/L) Toxicity >100 ng/mL (>250 nmol/L) 1-Uyx-782280:03 INR Fingerstick Comments: [place] [address] [place] [address] INR ISTAT 1.00 (Normal) Comments: Critical Value > 3.5 2-Mqw-957808:03 Prothrombin Time Fingerstick Comments: [place] [address] [place] [address] PROTIME ISTAT 12.1 {SEC} (Normal) Range: 11.9-14.4 Comments: Reference Range 11.9 - 14.4 25-Uns-215308:55 Prothrombin Time w/INR Comments: [place] [address] [place], [address] INR 2.6 (Normal) PROTIME 26.7 s (Abnormal) Range: 11.7-14.9 :44 GRETTA CULTURE-OTHER (41575) Comments: PATIENT NOT FASTINGPERFORMED BY: [facility] TherapeuticsFirst[facility] [id number] Information: THROAT SRC:TH Result 1 RRF (Normal) Comments: Routine respiratory rajwinder Upper Respiratory Culture Final report (Normal) 59-Okr-109248:31 Rapid Flu (33231 x 2) Influenza A Ag negative (Normal) 28-Zqh-584921:31 Rapid Strep Test, Office (11586) Rapid Strep Test, Office Negative (Normal) 94-Pqz-114791:46 Microscopic Examination Comments: PATIENT NOT FASTINGPERFORMED BY: [facility]6370 [facility]ma-WaveFirst[facility] [id number] Bacteria Few (Normal) Mucus Threads Present (Normal) Crystal Type Calcium Oxalate (Normal) Crystals Present (Abnormal) Epithelial Cells (non renal) 0-10 {/hpf} (Normal) Range: 0 - 10 RBC 0-2 {/hpf} (Normal) Range: 0 - 2 WBC 0-5 {/hpf} (Normal) Range: 0 - 5 77-Zwx-070700:46 URINALYSIS (23822) Comments: PATIENT NOT FASTINGPERFORMED BY: UtiliDataBe[facility] Hospital6370 [facility] [id number] Microscopic Examination See below: (Normal) Comments: Microscopic was indicated and was performed. Nitrite, Urine Negative (Normal) Urobilinogen,Semi-Qn 1.0 mg/dL (Normal) Range: 0.2-1.0 Bilirubin Negative (Normal) Occult Blood Negative (Normal) Ketones Negative (Normal) Glucose Negative (Normal) Protein Negative (Normal) WBC Esterase 1+ (Abnormal) Appearance Clear (Normal) Urine-Color Yellow (Normal) pH 6.0 (Normal) Range: 5.0-7.5 Specific Hull 1.018 (Normal) Range: 1.005-1.030 :46 CBC WITH MANUAL DIFF (98632) Comments: PATIENT NOT FASTINGPERFORMED BY: INFIMETInspira Medical Center Mullica HillGkxtaq8170 [facility] [id number] Immature Grans (Abs) 0.0 {x10E3/uL} (Normal) Range: [...] 3.77-5.28 WBC 4.5 {x10E3/uL} (Normal) Range: 3.4-10.8 01-Crs-401434:46 Ferritin (42253) Comments: PATIENT NOT FASTINGPERFORMED BY: [facility]6370 [facility] [id number] Ferritin, Serum 10 ng/mL (Abnormal) Range: 15-150 13-Azp-558215:46 Metabolic Panel, Comprehensive Comments: PATIENT NOT FASTINGPERFORMED BY: [facility]6370 [facility] [id number] (85019) ALT (SGPT) 18 [iU]/L (Normal) Range: 0-32 [...] Glucose, Serum 86 mg/dL (Normal) Range: 65-99 00-Ork-873558:46 AMYLASE (69959) Comments: PATIENT NOT FASTINGPERFORMED BY: LabCoInspira [facility] Center Mullica HillKocbba5428 [facility] [id number] Amylase, Serum 81 U/L (Normal) Range: 31-124 38-Qyc-491884:46 LIPASE (05691) Comments: PATIENT NOT FASTINGPERFORMED BY: [facility] Zjakqt5777 [facility] [id number] Lipase, Serum 79 U/L (Abnormal) Range: 0-59 36-Ocm-282093:33 Prothrombin Time w/INR Comments: Order Date: 03/23/16Order Date: 03/23/16Interface Comments: Reason:Order Date: [facility]/23/[facility] [address] [place], [place], [address] INR 2.0 (Normal) PROTIME 22.3 s (Abnormal) Range: 11.7-14.9 :36 Prothrombin Time w/INR Comments: [facility] [address] [place], [place], [address] INR 1.4 (Normal) PROTIME 17.1 s (Abnormal) Range: 11.7-14.9 79-Zjv-547846:20 Prothrombin Time w/INR Comments: Order Date: 05/11/16Order Info: 6301-6 - *PT/INR - Standing OrderComments: Standing Order-Reason:Order Date: 05/11/16Order Info: 6301-6 - *PT/INR - Standing OrderComments: Standing Order- Reason:[facility] [address] [place], [place], [address] INR 1.2 (Normal) PROTIME 14.8 s (Normal) Range: 11.7-14.9 :50 Prothrombin Time w/INR Comments: Order Date: 05/11/16Order Info: 6301-6 - *PT/INR - Standing OrderComments: Standing Order-Reason:Order Date: 05/11/16Order Info: 6301-6 - *PT/INR - Standing OrderComments: Standing Order-Reason:Order Da te: 05/11/16Order Info: 6301-6 - *PT/INR - Standing OrderComments: Standing Order-Reason:[facility] [address] [place], [address] INR 1.2 (Normal) PROTIME 15.1 s (Abnormal) Range: 11.7-14.9 :00 Culture, Nose Comments: [facility] [address] [place], [address] CUN See Note (Normal) Comments: Comments: NARESGram StainGram Stain Rare White Blood Cells 1+ Epithelial cells 4+ Gram positive rods Nasoph. CultNo Haemophilus, Streptococcus pneumoniae, beta-hemolytic Streptococcus or Staphylococcus aureus isolated. :00 Culture, Throat Comments: [facility] [address] [place], [address] CUT See Note (Normal) Comments: Comments: NARESCulture, ThroatNo Haemophilus, Streptococcus pneumoniae, beta-hemolytic Streptococcus or Staphylococcus aureus isolated. 00-Qxf-882993:05 Rapid Flu (38899 x 2) Influenza A Ag neg (Normal) :45 CBC W/Diff, Automated Comments: Order Date: 03/18/16Order Date: 03/18/16[facility] [address]kyc[address] [place], [address] Absolute Lymph 2.95 {X10_3/ul} (Normal) Range: 0.83-4.51 [...] 1'CKMB' Serial Specimen #1, #2 or #3? 1[facility] [address] [place] [address], [id number] CKRI 3.2 % (Abnormal) Range: 0.0-1.4 Comments: RELATIVE INDEX >1.5% IS PRESUMPTIVELY POSITIVE CPKMB 1.8 ng/mL (Normal) Range: 0.0-5.0 Comments: CK-MB and RI Interpretation MB Relative Index Non-AMI <or= 5 NA Indeterminate > 5 <or= 4 AMI > 5 > 4 CPK TOTAL 57 U/L (Normal) Range: 26-192 :45 Erythrocyte Sed Rate Comments: Order Date: 03/18/16Order Date: 03/18/16[facility] [address] [place] [address], [address] SED RATE 1 mm/h (Normal) Range: 0-30 :45 Myoglobin, Serum Comments: Order Date: 03/18/16[facility] (refer to report for specific site)refer to report for address and phone number Myoglobin, Ser 23 ng/mL (Abnormal) Range: 25-58 Comments: Performed at: - [facility] [address] [id number] Director: Neo Campos PhD, Phone: [phone] 49-Ach-170453:45 Troponin-I Comments: Order Date: 03/18/16TROP ADDED 03/19/16Order Date: 03/18/16'TROP' Serial specimen #1, #2, #3, or #4: 1'CKMB' Serial Specimen #1, #2 or #3? [address] [place] [address] N[address]ens[address]883 [facility] [place], [address] TROPONIN-I < 0.02 ng/mL (Normal) Comments: TROPONIN-I EXPECTED VALUES <0.05 NEGATIVE 0.06 - 0.59 AT RISK OF ID > OR = 0.60 SUGGEST ID [id number] Basic Metabolic Profile (BMP) Comments: 'TROP' Serial specimen #1, #2, #3, or #4: [address] [place] [address] [id number] [place], [place], [id number] GAP 6 (Normal) Range: 5-15 CO2 26.0 [...] 7-18 GLU 101 mg/dL (Normal) Range: 70-110 [id number] CBC W/Diff, Automated Comments: [facility] [id number] [place], [place], [id number] Absolute Lymph 2.27 {X10_3/ul} (Normal) Range: 0.83-4.51 [...] 4.2-5.4 WBC 4.9 K/mm3 (Normal) Range: 4.4-11.0 45-Coj-186285:00 Lipase Comments: 'TROP' Serial specimen #1, #2, #3, or #4: [facility] Rqkxynrhuj45[address] [place], [address] LIPASE 351 U/L (Normal) Range: 73-393 54-Fyt-065913:00 Liver Profile Comments: 'TROP' Serial specimen #1, #2, #3, or #4: [address] [place] [address] Hkcnmmyihp1310[place], [address] D BILI 0.15 mg/dL (Normal) Range: 0.00-0.30 T BILI 0.30 mg/dL (Normal) Range: 0.20-1.00 ALT 23 U/L (Normal) Range: 12-78 ALK P 81 U/L (Normal) Range: 50-136 AST 24 U/L (Normal) Range: 15-37 GLOB 2.8 g/dL (Normal) Range: 2.3-3.5 ALB 4.0 g/dL (Normal) Range: 3.4-5.0 T PROT 6.8 g/dL (Normal) Range: 6.4-8.2 64-Xvh-482326:00 Troponin-I Comments: 'TROP' Serial specimen #1, #2, #3, or #4: [address] [place] [address] Ww[address]osv4163 [place], [address] TROPONIN-I < 0.02 ng/mL (Normal) Comments: TROPONIN-I EXPECTED VALUES <0.05 NEGATIVE 0.06 - 0.59 AT RISK OF ID > OR = 0.60 SUGGEST ID [id number] Osmolality, Urine Comments: Order Date: 02/16/16Has pt arrived? [place] [place], [place], [id number] OSMOLALITY,UR 310 {mOsm/KG} (Normal) Comments: OSMOLALITY URINE REFERENCE INTERVALS 24-hour Urine 300 - 900 mOsm/kg Random Urine 50 - 1400 mOsm/kg After 12 Hr fluid restriction >850 mOsm/kg 74-Gaw-837432:50 Amylase Comments: [place] [address] [address] [place], [place], [id number] PREMA 80 U/L (Normal) Range: 25-115 92-Zih-403138:50 CBC W/Diff, Automated Comments: [address], [address] Absolute Lymph 1.51 {X10_3/ul} [...] 4.2-5.4 WBC 4.3 K/mm3 (Abnormal) Range: 4.4-11.0 88-Tzi-715229:50 Comprehensive Metabolic Profil Comments: [facility] [address] [place], [address] GAP 6 (Normal) Range: [...] 7-18 GLU 98 mg/dL (Normal) Range: 70-110 23-Oxs-778539:50 Lipase Comments: [address] [place] Garcia, [address] LIPASE 424 U/L (Abnormal) Range: 73-393 88-Xac-339027:50 Osmolality, Serum Comments: [address] [place], [id number] OSMOLALITY,SER 275 {mOsm/KG} (Normal) Range: 275-295 49-Dcc-553037:50 Vitamin B12 489 pg/mL (Normal) Comments: [address] [place], [address] ; will review on 02/19 Range: 211-911 74-Puf-579746:50 Vitamin D,25 Hydroxy Comments: [address] DarioeTimothy [place] Garcia, [id number] Vitamin D 25-OH 37.6 ng/mL (Normal) Comments: Vitamin D 25(OH) Status Range Deficiency <20 ng/mL (50nmol/L) Insuffciency 20 - 30 ng/mL (50 - 75 nmol/L) Sufficiency 30 - 100 ng/mL (75 - 250 nmol/L) Toxicity >100 ng/mL (>250 nmol/L) 03-Aux-93740:00 Ferritin Comments: [facility] Qwzruldwkt69[address] [place], [address] FERRITIN 13 ng/mL (Normal) Range: 8-252 :00 Lipid Profile Comments: [facility] Lpyfipxzgt81[address] [place] [place], [id number] VLDL 28 mg/dL (Normal) Range: 5-40 LDL [...] 200-240 mg/dL Borderline >240 mg/dL High Risk 9-Igs-728829:40 CBC W/Diff, Automated Comments: Order Date: 09/08/15Has pt arrived? [facility] Hwbqpsumtp7035 [address] [place], [id number] Absolute Lymph 1.80 {X10_3/ul} (Normal) Range: 0.83-4.51 [...] 4.2-5.4 WBC 4.4 K/mm3 (Normal) Range: 4.4-11.0 5-Spb-095331:40 Comprehensive Metabolic Profil Comments: Order Date: 09/08/15Has pt arrived? [facility] [address]emztslpk[address] [place], [address] GAP -1 (Abnormal) Range: 5-15 CO2 30.0 [...] 7-18 GLU 97 mg/dL (Normal) Range: 70-110 0-Jul-633428:16 Amylase Comments: [facility] Ibjliukdkp7794 [facility], [address] PREMA 95 U/L (Normal) Range: 25-115 6-Vym-825787:16 Lipase Comments: [facility] Iwoioosxhs5428 [facility] [place] [place], [address] LIPASE 568 U/L (Abnormal) Range: 73-393 1-Jez-821052:29 Influenza A&B Viral Comments: PATIENT NOT FASTINGPERFORMED BY: INFIMET[address] [id number] Information: SRC:NOS [id number] Culture (99262) Viral Culture,Rapid,Influenza FLUABN (Normal) Comments: Negative:No Influenza A or B detected. 6-Shg-707964:49 Rapid Flu (80504 x 2) Influenza A Ag neg (Normal) 34-Aeu-177499:01 CBC (Auto) (96485) Comments: now and in six months (approximately); PATIENT WAS FASTINGPERFORMED BY: UtiliData[address] [id number] Information: [id number], [id number] Platelets 357 {x10E3/uL} (Normal) Range: 150-379 RDW 14.6 % (Normal) Range: 12.3-15.4 MCHC 34.1 g/dL (Normal) Range: 31.5-35.7 MCH 29.8 pg (Normal) Range: 26.6-33.0 MCV 88 fL (Normal) Range: 79-97 Hematocrit 37.0 % (Normal) Range: 34.0-46.6 Hemoglobin 12.6 g/dL (Normal) Range: 11.1-15.9 RBC 4.23 {x10E6/uL} (Normal) Range: 3.77-5.28 WBC 5.7 {x10E3/uL} (Normal) Range: 3.4-10.8 34-Kqu-345992:01 Metabolic Panel, Basic Comments: now; PATIENT WAS FASTINGPERFORMED BY: [employer] [place] [id number] (15794) Calcium, Serum 9.1 mg/dL (Normal) Range: 8.7-10.2 [...] Glucose, Serum 102 mg/dL (Abnormal) Range: 65-99 40-Btp-440144:01 CALCIFIDIOL (80787) VIT D 25 Comments: now and in six months (approximately); PATIENT WAS FASTINGPERFORMED BY: [employer] PowerCoSilver Fox EventsHjyhhr3849 [employer] [place] [id number] Vitamin D, 25-Hydroxy 32.8 ng/mL (Normal) Range: 30.0-100.0 Comments: Vitamin D deficiency has been defined by the [place] ofMedicine and an Endocrine Society practice guideline as alevel of serum 25-OH vitamin D less than 20 ng/mL (1,2).The Endocrine Society went on to further define vitamin Dinsufficiency as a level between 21 and 29 ng/mL (2).1. IOM (Hammond of Medicine). 2010. Dietary reference intakes for calcium and D. [place]: The National Academies Press.2. Candelaria MF, Janey ELIAS, Yolande GROSS, et al. Evaluation, treatment, and prevention of vitamin D deficiency: an Endocrine Society clinical practice guideline. JCEM. 2010; 96(7):1911-30. 3-Knx-148622:06 Sputum Culture (43953) Comments: PATIENT NOT FASTINGPERFORMED BY: [facility] Wcwems5889 [facility] [id number] Information: [id number] Result 1 RRF (Normal) Comments: Routine respiratory rajwinder Lower Respiratory Culture Final report (Normal) 7-Fzg-292794:12 Rapid Flu (21460 x 2) Influenza A Ag neg a and b (Normal) 56-Kou-474861:01 Urinalysis, Office (92018) UA - LEUKOCYTE ESTERASE Negative (Normal) UA - NITRITE Negative (Normal) URINE UROBILINGN YANCI TIMED Normal mg/dL (Normal) UA - PROTEIN Negative mg/dL (Normal) UA - PH 6.0 (Normal) Comments: 5.5 UA - BLOOD Negative (Normal) UA - SPECIFIC GRAVITY 1.025 (Normal) UA - KETONES Negative mg/dL (Normal) UA - BILIRUBIN Negative (Normal) UA - GLUCOSE Negative (Normal) 77-Bft-034036:40 Lipase (04081) Comments: PATIENT NOT FASTINGPERFORMED BY: [facility] Oevxvu0944 [facility] [id number] Lipase, Serum 113 U/L (Abnormal) Range: 0-59 01-Rww-008199:40 Amylase (32593) Comments: PATIENT NOT FASTINGPERFORMED BY: [facility] Xexijv4374 [facility] [id number] Information: [id number] Amylase, Serum 104 U/L (Normal) Range: 31-124 0-Xlj-592874:54 Sputum Culture (64890) Comments: PATIENT NOT FASTINGPERFORMED BY: [facility] Hihcuz4913 [facility] [id number] Information: SRC: THROAT [id number] Result 1 RRF (Normal) Comments: Routine respiratory rajwinder Lower Respiratory Culture Final report (Normal) 2-Qpc-629576:55 Pathology Report Comments: PERFORMED BY: KWCYT [facility] [place] Cyto Jpjaw46350 [employer] [id number] BY: [facility] Dermatopathology Fssrcyb124 [address] [id number] Information: [id number] See MATER Comments: Material submitted: .PUNCH BIOPSY [...] IS NEGATIVE FOR FUNGAL FORMS.Pathologist provided ICD-9:692.9CPT .143522, 582349 10-Iup-991103:41 Lipid Panel (35854) Comments: PATIENT WAS FASTINGPERFORMED BY: [facility]CoInsp[facility] Center Mullica HillImcaii8334 [facility] [id number] LDL/HDL Ratio 1.0 {ratio_units} (Normal) Range: 0.0-3.2 [...] - 169 >19 years 100 - 199 39-Qit-435355:41 Metabolic Panel, Comments: PATIENT WAS FASTINGPERFORMED BY: INFIMETSierra Vista HospitalGccoej8925 [facility] [id number] Information: [id number] [facility] (62382) ALT (SGPT) 13 [iU]/L (Normal) Range: 0-32 [...] Glucose, Serum 97 mg/dL (Normal) Range: 65-99 73-Hcc-824757:41 Vitamin B-12 (cyanocobalamin) Comments: PATIENT WAS FASTINGPERFORMED BY: INFIMETInspira Medical Center Mullica HillAipccu3457 [facility] [id number] (10103) Vitamin B12 632 pg/mL (Normal) Range: 211-946 19-Gik-786389:41 CBC (Auto) (01978) Comments: PATIENT WAS FASTINGPERFORMED BY: INFIMET Ojyxnd7113 [facility] [id number] Platelets 270 {x10E3/uL} (Normal) Range: 150-379 RDW 13.9 % (Normal) Range: 12.3-15.4 MCHC 32.8 g/dL (Normal) Range: 31.5-35.7 MCH 29.5 pg (Normal) Range: 26.6-33.0 MCV 90 fL (Normal) Range: 79-97 Hematocrit 36.6 % (Normal) Range: 34.0-46.6 Hemoglobin 12.0 g/dL (Normal) Range: 11.1-15.9 RBC 4.07 {x10E6/uL} (Normal) Range: 3.77-5.28 WBC 8.5 {x10E3/uL} (Normal) Range: 3.4-10.8 :41 Ferritin (80672) Comments: PATIENT WAS FASTINGPERFORMED BY: [facility] Xwbmhn7742 [facility] [id number] Ferritin, Serum 28 ng/mL (Normal) Range: 15-150 :41 CALCIFIDIOL (36042) VIT D 25 Comments: PATIENT WAS FASTINGPERFORMED BY: [facility] Ddshrx4282 [facility] [id number] Vitamin D, 25-Hydroxy 24.3 ng/mL (Abnormal) Range: 30.0-100.0 Comments: Vitamin D deficiency has been defined by the [place] ofMedicine and an Endocrine Society practice guideline as alevel of serum 25-OH vitamin D less than 20 ng/mL (1,2).The Endocrine Society went on to further define vitamin Dinsufficiency as a level between 21 and 29 ng/mL (2).1. IOM (Hammond of Medicine). 2010. Dietary reference intakes for calcium and D. [place]: The National Academies Press.2. Candelaria MF, Janey ELIAS, Yolande GROSS, et al. Evaluation, treatment, and prevention of vitamin D deficiency: an Endocrine Society clinical practice guideline. JCEM. 2010; 96(7):1911-30. :55 CBC-Complete Blood Cnt No Diff Comments: Test performed at:[facility] Aluvcphyql[address] [place] [address] MPV 9.5 fL (Normal) Range: 6.2-12.0 [...] 4.2-5.4 WBC 5.1 K/mm3 (Normal) Range: 4.4-11.0 61-Ava-867568:55 Ferritin Comments: Test performed at:[facility] Xhsxxqkhxf[address] [place] [address] FERRITIN 23 ng/mL (Normal) Range: 8-252 77-Oed-379822:55 Iron Comments: Test performed at:[facility] Fiwmgkbydj[address] [place] [address] IRON 75 ug/dL (Normal) Range: 50-170 12-Shv-565965:53 CBC W/Diff, Automated Comments: Test performed at:[facility] Tsezjwdxiz[address] [place] [address] 893731 Absolute Lymph 1.57 {X10_3/ul} (Normal) Range: 0.83-4.51 [...] 4.2-5.4 WBC 3.8 K/mm3 (Abnormal) Range: 4.4-11.0 03-Hcw-402626:53 Comprehensive Metabolic Profil Comments: Test performed at:[facility] Gkderkicei89[address] [place], [place] [address] GAP 5 (Normal) Range: 5-15 CO2 29.0 [...] 7-18 GLU 99 mg/dL (Normal) Range: 70-110 33-Rsd-013513:53 Ferritin Comments: Test performed at:[facility] [address] [place] [address] FERRITIN 13 ng/mL (Normal) Range: 8-252 24-Bvt-341933:53 Lipid Profile Comments: Test performed at:[facility] Xvqjvaazok[address] [place] [address] VLDL 19 mg/dL (Normal) Range: 5-40 [...] 200-240 mg/dL Borderline >240 mg/dL High Risk 39-Jqa-612257:53 Vitamin B12 > 2000 pg/mL (Abnormal) Comments: Test performed at:[facility] Qmojpcfbhd[address] [place] [address] Range: 211-911 24-Xyk-692895:46 CBC W/Diff, Automated Comments: Test performed at:[facility] Siahyckngu[address] [place] [address] Absolute Lymph 1.87 {X10_3/ul} (Normal) Range: [...] 4.2-5.4 WBC 4.1 K/mm3 (Abnormal) Range: 4.4-11.0 53-Kqb-841268:46 Comprehensive Metabolic Profil Comments: Test performed at:[facility] Gomgkuerpn2470 [place] [address] GAP 4 (Abnormal) Range: 5-15 CO2 28.0 [...] 7-18 GLU 70 mg/dL (Normal) Range: 70-110 86-Yom-906211:46 Vitamin D,25 Hydroxy Comments: Test performed at:[facility] Qhqgsjaoib9179 [place] [address] Vitamin D 25-OH 30.6 ng/mL (Normal) Comments: Vitamin D 25(OH) Status Range Deficiency <20 ng/mL (50nmol/L) Insuffciency 20 - 30 ng/mL (50 - 75 nmol/L) Sufficiency 30 - 100 ng/mL (75 - 250 nmol/L) Toxicity >100 ng/mL (>250 nmol/L) 78-Qam-556401:04 CALCIFIDIOL (59742) VIT D Comments: PATIENT NOT FASTINGPERFORMED BY: [facility] Papewl0222 [facility] [id number] Information: [id number] 25 Vitamin D, 25-Hydroxy 19.2 ng/mL (Abnormal) Range: 30.0-100.0 Comments: Vitamin D deficiency has been defined by the [place] ofMedicine and an Endocrine Society practice guideline as alevel of serum 25-OH vitamin D less than 20 ng/mL (1,2).The Endocrine Society went on to further define vitamin Dinsufficiency as a level between 21 and 29 ng/mL (2).1. IOM (Hammond of Medicine). 2010. Dietary reference intakes for calcium and D. [place]: The National Academies Press.2. Candelaria MF, Janey NC, Yolande GROSS, et al. Evaluation, treatment, and prevention of vitamin D deficiency: an Endocrine Society clinical practice guideline. JCEM. 2010; 96(7):1911-30. :04 Ferritin (81236) Comments: PATIENT NOT FASTINGPERFORMED BY: MONA INFIMETInspira Medical Center Mullica HillQoojyc9427 [facility] [id number] Ferritin, Serum 34 ng/mL (Normal) Range: 15-150 :05 METABOLIC PANEL, COMPREHENSIVE Comments: PATIENT NOT FASTINGPERFORMED BY: INFIMETInspira Medical Center Mullica HillSlnpjj1423 [facility] [id number] (71096) ALT (SGPT) 10 [iU]/L (Normal) Range: 0-32 [...] Glucose, Serum 86 mg/dL (Normal) Range: 65-99 84-Neu-124698:05 CBC WITH MANUAL DIFF Comments: PATIENT NOT FASTINGPERFORMED BY: Zmqnw.com.cnlin6370 [facility] [id number] Information: [id number],2ND ORDER NO DRAW F EE (02577) Immature Grans (Abs) 0.0 {x10E3/uL} (Normal) Range: [...] 3.77-5.28 WBC 5.2 {x10E3/uL} (Normal) Range: 3.4-10.8 61-Cdg-481447:05 CALCIFIDIOL (56565) VIT D 25 Comments: PATIENT NOT FASTINGPERFORMED BY: UtiliDataBeaumont Hospital6370 [facility] [id number] Vitamin D, 25-Hydroxy 19.6 ng/mL (Abnormal) Range: 30.0-100.0 Comments: Vitamin D deficiency has been defined by the [place] ofMedicine and an Endocrine Society practice guideline as alevel of serum 25-OH vitamin D less than 20 ng/mL (1,2).The Endocrine Society went on to further define vitamin Dinsufficiency as a level between 21 and 29 ng/mL (2).1. IOM (Hammond of Medicine). 2010. Dietary reference intakes for calcium and D. [place]: The National AcademEvergram Press.2. Candelaria MF, Janey ELIAS, Yolande GROSS, et al. Evaluation, treatment, and prevention of vitamin D deficiency: an Endocrine Society clinical practice guideline. JCEM. 2010; 96(6):1911-30. : B12 446 pg/mL (Normal) Range: 211-911 [...] CHOL 168 mg/dL (Normal) Comments: <200 mg/dL Aujqxwygu443-250 mg/dL Borderline>240 mg/dL High Risk 1-Klg-283465:51 VITD 38.8 mg/mL (Normal) Comments: Vitamin D 25(OH) Status RangeDeficiency <20 ng/mL (50nmol/L)Insuffciency 20 - 30 ng/mL (50 - 75 nmol/L)Sufficiency 30 - 100 ng/mL (75 - 250 nmol/L)Toxicity >100 ng/mL (>250 nmol/L) 18-Bra-333757:07 Lipase (60589) Comments: PERFORMED BY: IN[employer] [id number] Lipase, Serum 67 U/L (Abnormal) Range: 0-59 32-Sfr-891186:07 Amylase (01673) Comments: PERFORMED BY: INF[facility]ET [facility] [place] QuandooReplaced by [facility] [id number] Amylase, Serum 92 U/L (Normal) Range: 31-124 39-Ocw-983096:11 Urinalysis, Office (10593) UA - LEUKOCYTE ESTERASE Negative (Normal) UA - NITRITE Negative (Normal) URINE UROBILINGN YANCI TIMED Normal mg/dL (Normal) UA - PROTEIN Negative mg/dL (Normal) UA - PH 5 (Abnormal) Comments: 5.5 UA - BLOOD Negative (Normal) UA - SPECIFIC GRAVITY 1.015 (Normal) UA - KETONES 15 mg/dL (Abnormal) UA - BILIRUBIN Small (Normal) UA - GLUCOSE Negative (Normal) 18-Csk-922598:28 GRETTA CULTURE-OTHER (31303) Comments: PATIENT NOT FASTINGPERFORMED BY: [facility] [id number] Information: SRC:THRT [id number] Result 1 RRF (Normal) Comments: Routine respiratory rajwinder Upper Respiratory Culture Final report (Normal) 22-Qpw-625923:32 Rapid Strep Test, Office (08195) Rapid Strep Test, Office Negative (Normal) 57-Udn-095394:02 Iron Binding Capacity Comments: PATIENT NOT FASTINGPERFORMED BY: [facility]iDataCarondelet Health [facility] [id number] Information: [id number] (TIBC) (45392) Iron Saturation 6 % (Abnormal) Range: 15-55 Iron, Serum 32 ug/dL (Abnormal) Range: 35-155 UIBC 461 ug/dL (Abnormal) Range: 150-375 Iron Bind.Cap.(TIBC) 493 ug/dL (Abnormal) Range: 250-450 :02 Ferritin (67059) Comments: PATIENT NOT FASTINGPERFORMED BY: LabCoInspira Medical Center Mullica HillOggfau4968 [facility] [id number] Ferritin, Serum 7 ng/mL (Abnormal) Range: 15-150 [...] CHOL 181 mg/dL (Normal) Comments: <200 mg/dL Fdmnmanmq356-628 mg/dL Borderline>240 mg/dL High Risk :19 VITD [...] 7-18 GLU 79 mg/dL (Normal) Range: 70-110 92-Njz-578725:18 TS Ab SCREEN GEL NEGATIVE (Normal) SCREEN CELL I NEGATIVE (Normal) SCREEN CELL II NEGATIVE (Normal) SCREEN CELL III NEGATIVE (Normal) BLOOD TYPE GEL O POSITIVE (Normal) 32-Qah-178498:17 Metabolic Panel, Comments: PATIENT NOT FASTINGPERFORMED BY: [facility] Hcjfqj1674 [facility] [id number] Information: [id number] Comprehensive (47847) ALT (SGPT) 13 [iU]/L (Normal) Range: 0-32 [...] 4.2-5.4 WBC 5.0 K/mm3 (Normal) Range: 4.4-11.0 47-Iha-707141:19 CMP GAP 9 (Normal) Range: 5-15 CO2 [...] s (Normal) Range: 11.9-14.4 :41 VIT D,25 89702 20.3 ng/mL (Abnormal) Range: 30.0-100.0 Comments: Vitamin D deficiency has been defined by the [place] ofMedicine and an Endocrine Society practice guideline as alevel of serum 25-OH vitamin D less than 20 ng/mL (1,2).The Endocrine Society went on to further define vitamin Dinsufficiency as a level between 21 and 29 ng/mL (2).1. IOM (Hammond of Medicine). 2010. Dietary reference intakes for calcium and D. Lal [place]: The National Academies Press.2. Candelaria MF, Janey NC, Yolande GROSS, et al. Evaluation, treatment, and prevention of vitamin D deficiency: an Endocrine Society clinical practice guideline. JCEM. 2010; 96(7): 1911-30.Performed at: - UtiliData[address] [id number] Director: Yony San MD, Phone: [phone] at: [facility] LabCo[address] [id number] Director: Era Tinoco MD, Phone: [phone] VITD 1,25 99697 44.5 pg/mL (Normal) Range: 10.0-75.0 :09 PREMA [...] 4.2-5.4 WBC 6.2 K/mm3 (Normal) Range: 4.4-11.0 2-Kpd-778324:09 COMP METABOLIC GAP 11 (Normal) Range: 5-15 [...] :09 FERRITIN 18 ng/mL (Normal) Range: 8-252 1-Lsh-227850:09 LIPASE 280 U/L (Normal) Range: 70-290 Comments: Please note:LIPASE revised reference range effective 09. 30-Tnr-794374:05 LIPID Comments: COMMENTS: FAX RESULTS TO DR [...] 200-240 mg/dL Borderline >240 mg/dL High Risk 91-Sam-643659:54 BILAT SCRN DIGITAL & CAD Radiology Report [...] 11/20/10 0112 Sign by: Bartolome Patel MD 78-Mtg-835456:54 DEXA BONE DENSITY STUDY (HP) Radiology Report See Note (Normal) Comments: CLINICAL:Female, 55 years old. The patient is postmenopausal. EXAMINATION:DUAL ENERGY X-RAY ABSORPTIOMETRY / DEXA. TECHNIQUE:Bone Mineral Density (BMD) measurements of lumbar spine and bila teralhipswer e obtained using a [employer] scanner.. COMPARISON:Comparison is made with prior study [...] on 11/20/1030 Sign by: Bartolome Patel MD 8-Veo-044437:46 EDSIRAE DIR SEMI-QL Comments: ORDERED CBC LUZ MARINA FEDRCOREY ORDERED CMP CBCD CRP ESR VITD HEPB SURF AB CCPHEPB IRINA AG HEPC DESIRAE RA HEPB CORE IGM UAC SCL70 ANTOINE ANTI JOANTICENT AB SSA SSB DNA UAPROTEIN C3 C4 TSH DESIRAE DIRECT 56 AU/mL (Normal) 5-Obp-209792:46 ANEX PANEL Comments: ORDERED CBC LUZ MARINA FEDRCOREY ORDERED CMP CBCD CRP ESR VITD HEPB SURF AB CCPHEPB IRINA AG HEPC DESIRAE RA HEPB CORE IGM UAC SCL70 ANTOINE ANTI JOANTICENT AB SSA SSB DNA UAPROTEIN C3 C4 TSH; appt 11/02/10 SECOND CRUSHER AB 14 AU/mL (Normal) ANTI-TORRES AB 7 AU/mL (Normal) :46 ANTI JO1 Comments: ORDERED CBC LUZ MARINA FEDRCOREY ORDERED CMP CBCD CRP ESR VITD HEPB SURF AB CCPHEPB IRINA AG HEPC DESIRAE RA HEPB CORE IGM UAC SCL70 ANTOINE ANTI JOANTICENT AB SSA SSB DNA UAPROTEIN C3 C4 TSH ANTI LAMAR 7 AU/mL (Normal) 9-Dml-144024:46 ANTI SCL 70 Comments: ORDERED CBC LUZ MARINA FEDRCOREY ORDERED CMP CBCD CRP ESR VITD HEPB SURF AB CCPHEPB IRINA AG HEPC DESIRAE RA HEPB CORE IGM UAC SCL70 ANTOINE ANTI JOANTICENT AB SSA SSB DNA UAPROTEIN C3 C4 TSH ANTI-SCL 70 14 AU/mL (Normal) 6-Xvt-556631:46 ANTI-CCP 673204 < 1 {units} (Normal) Comments: ORDERED CBC [...] 0.6-1.0 GLU 91 mg/dL (Normal) Range: 70-110 0-Ljq-421382:46 ESR Comments: ORDERED CBC LUZ MARINA RODRIGUEZ [...] C4 TSH Range: 8-252 :46 HB CORE [id number] SeeNote (Normal) Comments: ORDERED CBC LUZ MARINA MICHAEL ORDERED CMP CBCD CRP ESR VITD HEPB SURF AB CCPHEPB IRINA AG HEPC DESIRAE RA HEPB CORE IGM UAC SCL70 ANTOINE ANTI JOANTICENT AB SSA SSB DNA UAPROTEIN C3 C4 TSH Comments: Result: Negative Performed at: - [facility] [address] [id number] Director: Era Tinoco MD, Phone: [phone] at: - [facility] [address] [id number] Director: Yony San MD, Phone: [phone] :[phone] HBsAg 6510 Comments: ORDERED CBC LUZ [...] of antibody present. :46 HEP C AB 282906 <0.1 (Normal) Comments: ORDERED CBC LUZ MARINA [...] C4 TSH Range: 0.358-3.74 :46 VIT D,25 91017 9.3 ng/mL (Abnormal) Comments: ORDERED CBC LUZ MARINA FEDRCOREY ORDERED CMP CBCD CRP ESR VITD HEPB SURF AB CCPHEPB IRINA AG HEPC DESIRAE RA HEPB CORE IGM UAC SCL70 ANTOINE ANTI JOANTICENT AB SSA SSB DNA UAPROTEIN C3 C4 TSH Range: 32.0-100.0 Comments: Recent studies consider the lower limit of 32.0 ng/mL to jayleen threshold for optimal health.Ortiz SANCHEZ. J Nutr. 2004;135(2):317-22. 81-Ncm-477741:10 CBC Comments: COMMENTS: FAX RESULTS TO DR. [...] 4.2-5.4 WBC 9.8 K/mm3 (Normal) Range: 4.4-11.0 32-Ykp-491405:10 FERRITIN 21 ng/mL (Normal) Comments: COMMENTS: FAX RESULTS TO DR. CECI NUNORESULTS FAXED 07/17/10 131VLADIMIR MAKI. Range: 8-252 34-Zca-728756:10 IRON 125 ug/dL (Normal) Comments: COMMENTS: FAX RESULTS TO DR. CECI FARIAS DRAWRESULTS FAXED 07/17/10 131VLADIMIR MAKI. Range: 50-170 48-Kxz-922917:20 CBC With Differential/Platelet Comments: PERFORMED BY: [facility]6370 [facility] [id number] Baso (Absolute) 0.0 {x10E3/uL} (Normal) Range: 0.0-0.2 [...] 11.7-15.0 WBC 5.3 {x10E3/uL} (Normal) Range: 4.0-10.5 [id number]:20 Comp. Metabolic Panel (14) Comments: PERFORMED BY: [facility] [facility] [id number] ALT (SGPT) 18 [iU]/L (Normal) Range: 0-40 [...] Serum 14 ng/mL (Normal) Comments: PERFORMED BY: [facility] [id number] 14:20 Range: 13-150 [id number]:20 Iron and TIBC Comments: PERFORMED BY: [facility] [id number] Iron Saturation 23 % (Normal) Range: 15-55 Iron, Serum 106 ug/dL (Normal) Range: 35-155 UIBC 361 ug/dL (Normal) Range: 150-375 Iron Bind.Cap.(TIBC) 467 ug/dL Range: 250-450 (Abnormal) TSH 1.760 {uIU/mL} Comments: PERFORMED BY: [facility] [id number] :20 (Normal) Range: 0.450-4.500 C DIF TOXIN/AG See Note (Normal) Comments: PT COLLECTED SPECIMEN 12/30 @2300 :45 Comments: C. DIFF ANTIGENS NEGATIVE :45 CUL STOOL/SHIG Comments: PT COLLECTED SPECIMEN 12/30 @2300 CULTURE, STOOL See Note (Normal) Comments: [facility] No Salmonella, Shigella or Yersinia isolated.No [...] Crytosporidium parvum,Cyclospora, or Microsporidia.__ TESTING PERFORMED AT [facility]. ORIGINAL REPORT ONFILE IN LAB CONTAINS [...] Please note:LIPASE revised reference range effective 09. [id number]-[id number]:10 RENAL Comments: COMMENTS: IV THERAPY DRAWING CO2 [...] (Normal) GLU 102 mg/dL (Normal) Range: 70-110 89-Rkw-639698:37 OCCULT BLOOD FECES SCREEN (24708) OCCULT BLOOD FECES SCREEN negative (Normal) 43-Mdf-327099:03 CBCD,SMEAR DIFF PLT EST SeeNote (Normal) Comments: [...] 6.4-8.2 GLU 94 mg/dL (Normal) Range: 70-110 88-Wpc-442906:03 FERRITIN 12 ng/mL (Normal) Range: 8-252 :03 IRON 128 ug/dL (Normal) Range: 50-170 09-Tom-302912:03 LIPID LDL 86 mg/dL (Normal) Range: 0-130 VLDL 18 mg/dL (Normal) Range: 5-40 HDL 79 mg/dL (Normal) Comments: Reference RangeHDL <40 mg/dL Low HDL CholesterolHDL >or= 60 mg/dL High HDL Cholesterol CHOL 183 mg/dL (Normal) Comments: <200 mg/dL Tkvsxofmf531-183 mg/dL Borderline>240 mg/dL High Risk TRIG 88 mg/dL (Normal) Comments: Serum Triglycerides Reference IntervalNormal <150 mg/dLBorderline high 150 - 199 mg/dLHigh 200 - 499 mg/ dLVery High > or = 500 mg/dL 99-Faw-190899:03 VITAMIN B12 342 pg/mL (Normal) Range: 254-1320 10-Apr-20090:00 FLU A+B DIRECT See Note (Normal) Comments: Negative test results should be confirmed by culture. Order Rapid Viral Culture for Influenzae A+B ([id number]) if clinically indicated. INFLUENZA ANTIGEN,DIRECT Presumptive NEGATIVE for Influenza A/B Antigen (See Note) 28-Bpe-360636:43 CHEST, PA AND LATERAL Radiology Report See Note (Normal) Comments: Exam Number: [id number] CLINICAL DATAInterstitial lung disease, cough. CHEST PA [...] pneumonia. Possible bronchitis. Reported By: FLORINDA CAMPOS 14-Myj-798929:45 L/S SPINE,MIN 4 VIEWS Radiology Report See Note (Normal) Comments: Exam Number: [id number] CLINICAL PROBLEMLow back pain post fall. LUMBAR [...] and spondylosis. Reported By: AROLDO TILLMAN M.D. 16-Cmg-764455:44 KNEE,4 OR MORE VIEWS Radiology Report See Note (Normal) Comments: Exam Number: [id number] CLINICAL PROBLEMPain both knees post fall. FOUR [...] patellofemoral compartments. Reported By: AROLDO TILLMAN M.D. 05-Hlu-212656:44 KNEE,4 OR MORE VIEWS Radiology Report See Note (Normal) Comments: Exam Number: [id number] CLINICAL PROBLEMLeft knee pain status post fall. [...] Order Rapid Viral Culture for Influenzae A+B ([id number]) if clinically indicated. INFLUENZA ANTIGEN,DIRECT Presumptive NEGATIVE for Influenza A/B Antigen (See Note) 12-Sep-2008 PREMA 66 U/L (Normal) Range: 25-115 12:11 74-Rzu-712699:11 CBCD BASO% 0.2 % (Normal) Range: 0-1 [...] 4.2-5.4 WBC 4.2 K/mm3 (Abnormal) Range: 4.4-11.0 45-Mpo-802529:11 COMP METABOLIC A/G 1.2 {RATIO} (Normal) Range: [...] T PROT 6.9 g/dL (Normal) Range: 6.4-8.2 05-Edi-232288:11 ESR SED RATE 3 mm/h (Normal) Range: 0-30 19-Dbs-878933:11 LIPASE 229 U/L (Normal) Range: 114-286 :11 [...] T PROT 6.7 g/dL (Normal) Range: 6.4-8.2 30-Whx-714655:00 METHYLM 417329 330 nmol/L (Normal) Range: 73-376 Comments: The reference range for methylmalonic acid has been set at+3sd above the mean for healthy blood bank donors. In theclinical assessment of patients with megaloblastic anemiasa cutoff of +3sd provides gre ater specificity in thediagnosis of the vitamin deficiency states, despite thesacrifice of some sensitivity.Performed At: [address] [id number] 3-Zqo-803418:55 Lower Respiratory Culture Comments: Clinical Information: SRC:SP PERFORMED BY: [facility] [id number] Lower Respiratory Culture Final report (Normal) Result 1 RRF (Normal) Comments: Routine respiratory rajwinder :3 PREMA 62 U/L (Normal) Range: 25-115 6 79-Jtj-44181:36 DESIRAE-D 445937 DESIRAE-DIRECT 23 AU/mL (Normal) Range: 0-99 Comments: [...] {IU/mL} (Normal) Range: 0.0-13.9 Comments: Performed At: [address] [id number] :36 TSH 1.76 {uIU/mL} (Normal) Range: 0.34-4.82 :29 HgA1C , Office (74852) HgA1C , Office 5.5 % (Normal) Range: 4.6 - 7.1 :29 Blood Glucose , Office (07406) Blood Glucose , Office 108 (Normal) :51 CHEST, PA AND LATERAL Radiology Report See Note (Normal) Comments: Exam Number: [id number] PA AND LATERAL CHEST HISTORY Being done [...] By: JERARDO BEAULIEU M.D. :57 Rapid Flu (07637 x 2) INFLUENZA IMMUNOASSY DIRECT OPTICAL OBSERV negative (Normal) Comments: aw 73-Jsw-975962:57 LIPID CHOL 186 mg/dL (Normal) Comments: <200 [...] pg/mL (Normal) Range: 211-911 :57 VITD 1,25 63756 69.6 (Normal) Comments: Performed At: [address] [id number] 18-Ran-155757:47 CHEST, PA AND LATERAL Radiology Report See Note (Normal) Comments: Exam Number: [id number] PA AND LATERAL CHEST HISTORY Being done [...] perihilar infiltrate. Reported By: JERARDO BEAULIEU M.D. 01-Eaq-748437:08 Upper Respiratory Culture Comments: Clinical Information: SRC:TH PERFORMED BY: [facility] [id number] Result 1 RRF (Normal) Comments: Routine respiratory rajwinder Upper Respiratory Culture Final report (Normal) 7-Fhh-544668:39 CHEST WITHOUT CONTRAST Radiology Report See Note (Normal) Comments: Exam Number: [id number] CT SCAN OF CHEST HISTORYNeoplasm of uncertain [...] PREMA 73 U/L (Normal) Range: 25-115 :01 62-Ttk-527501:01 CBCD BASO% 0.3 % (Normal) Range: 0-1 [...] 11.6-14.6 WBC 4.7 K/mm3 (Normal) Range: 4.4-11.0 52-Tlx-732476:01 COMP METABOLIC A/G 1.1 {RATIO} (Normal) Range: [...] mg/dL VLDL 15 mg/dL (Normal) Range: 5-40 47-Vzk-191601:40 BC No growth in 5 days. Comments: COMMENTS: ROOM 12 (Normal) 88-Jli-609166:20 COMPLETE UA Comments: COMMENTS: ROOM 12HOLD IN [...] WBC 0 SEEN {/hpf} (Normal) Range: 0-5 75-Osp-122336:10 BMP Comments: COMMENTS: ROOM 12 BUN 8 [...] 3.5-5.1 NA 132 mmol/L (Abnormal) Range: 136-145 97-Mki-318583:10 CBCD Comments: COMMENTS: ROOM 12 BASO% 0.2 [...] (Normal) WBC 10.6 K/mm3 (Normal) Range: 4.4-11.0 88-Jfi-424130:10 LIPASE 212 U/L (Normal) Comments: COMMENTS: ROOM 12 Range: 114-286 12-Hak-873143:10 LIVER Comments: COMMENTS: ROOM 12 ALB 3.4 [...] 29 [iU]/L (Abnormal) Range: 30-65 :07 DESIRAE-D 550447 DESIRAE-DIRECT 24 U/mL (Normal) Range: 0-99 Comments: Negative <100 Equivocal 100 - 120 Positive >120Performed At: [facility] [address] [place], [place] [id number] At: [facility] [address] [id number] :[id number] See Note (Normal) Comments: CHECK BLOOD [...] 5.8 K/mm3 (Normal) Range: 4.4-11.0 :07 HISTOPL 802585 SeeNote (Normal) Comments: Result: Negative :07 RA LATEX 6502 8.6 {IU/mL} (Normal) Range: 0.0-13.9 :24 CHEST, PA AND LATERAL Radiology Report See Note (Normal) Comments: Exam Number: [id number] CHEST, PA AND LATERAL HISTORYFever and cough. COMPARISONNone. FINDINGSThere is an indwelling Kjuz-C-Jhwfzohn on the right side particularlyin the SVC. The heart, aorta, and media stinum are normal. Lungs areclear. There is no evidence of consolidation, effusion, congestion,or nodules. There are clips in the region of the esophageal hiatus. IMPRESSIONClear lungs. Reported By: AN YOUNG M.D. 67-Xnr-237453:0 BC No growth in 5 days. 0 [...] mm/h (Normal) Range: 0-30 :02 Urinalysis, Office (54932) Comments: ABn signed CH UA - BILIRUBIN [...] :19 LIPASE 212 U/L (Normal) Range: 114-286 4-Hsd-527338:19 VIT B12 1503 147 pg/mL (Abnormal) Range: 211-911 Comments: Performed At: [address] [id number] 1-Npa-865496:00 CULTURE, THROAT See Note (Normal) Comments: Normal throat rajwinder isolated. No beta-hemolyticstreptococcus isolated. 7-Ujr-969409:52 Urinalysis, Office (51963) UA - BILIRUBIN Negative (Normal) UA - [...] and of unspecified site Planned Observations LIPASE (85985)Indication: Chronic pancreatitis On: 80-Pms-833656:51 Request AMYLASE (84087)Indication: Chronic pancreatitis On: 64-Vjy-135019:50 Request URINALYSIS (19577)Indication: Chronic pancreatitis On: :50 Request CBC WITH MANUAL DIFF (59536)Indication: Chronic pancreatitis On: 56-Sts-179380:50 Request Metabolic Panel, Comprehensive (16965)Indication: Chronic pancreatitis On: 22-Bkk-577191:50 Request PT (PROTHROMBIN TIME) (90587)Indication: PFO (patent foramen ovale) On: 67-Nog-824618:36 Request Vitamin B-12 (cyanocobalamin) (46229)Indication: S/P gastric bypass On: 5-Vfz-843856:21 Request Ferritin (04960)Indication: Iron deficiency anemia due to dietary causes On: 7-Kar-510373:21 Request CBC, Platelets & Auto Diff (87919)Indication: Chronic pancreatitis On: :21 Request Metabolic Panel, Comprehensive (61113)Indication: Chronic pancreatitis On: 2-Vuc-054084:21 Request CALCIFIDIOL (15986) VIT D 25Indication: Vitamin D deficiency, unspecified On: 93-Gbu-28770:55 Request Comments: re check in 8 weeks Sed Rate Erythrocyte (02941)Indication: Fever On: 36-Jat-692584:39 Request URINALYSIS (67868)Indication: Fever On: :33 Request URINE GRETTA CULTURE-IDENTIFICATN (73063)Indication: Fever On: :33 Request CALCIFIDIOL (00633) VIT D 25Indication: Vitamin D deficiency, unspecified On: :32 Request CBC, Platelets & Auto Diff (24334)Indication: Iron deficiency anemia due to dietary causes On: :32 Request Ferritin (39114)Indication: Iron deficiency anemia due to dietary causes On: 36-Ecm-418688:32 Request GRETTA CULTURE-BLOOD (71183)Indication: Fever On: 14-Zij-667367:30 Request Comments: ONE FROM PORT AND ONE PERIPHERAL CALCIFIDIOL (95031) VIT D 25Indication: Vitamin D deficiency, unspecified On: 78-Pcx-003347:24 Request FERRITIN (42862)Indication: Iron deficiency anemia due to dietary causes On: 31-Ngx-662434:22 Request EBV ANTIBODY VCA/EA 05325 (42273)Indication: Fatigue On: 43-Uja-128709:31 Request Comments: please do VCA IGM Ferritin (28206)Indication: Iron deficiency anemia due to dietary causes On: 30-Mxw-803756:00 Request CALCIFIDIOL (94938) VIT D 25Indication: Vitamin D deficiency, unspecified On: 77-Vrk-208195:00 Request EBV Panel (19798)Indication: Pharyngitis, acute On: 01-Vbw-739531:58 Request Influenza A&B Viral Culture (53100)Indication: Fever On: 5-Qnz-564209:34 Request GRETTA CULTURE-OTHER (58009)Indication: Fever On: :33 Request Rapid Strep Test, Office (36957)Indication: Fever On: :18 Request Troponin I (54950)Indication: Chest pain at rest On: :43 Request Comments: pls add to labs already done MYOGLOBIN (37285)Indication: Chest pain at rest On: : Request CPK MB FRACTION (80980)Indication: Chest pain at rest On: : Request Sed Rate Erythrocyte (78617)Indication: Chest pain at rest On: : Request CBC WITH MANUAL DIFF (38230)Indication: Chest pain at rest On: Request CALCIFEDIOL (70205)Indication: OTHER AND UNSPECIFIED POSTSURGICAL NONABSORPTION On: :12 Request PARATHORMONE (30234)Indication: OTHER AND UNSPECIFIED POSTSURGICAL NONABSORPTION On: : Request Magnesium (93700)Indication: OTHER AND UNSPECIFIED POSTSURGICAL NONABSORPTION On: : Request Phosphorus (95784)Indication: OTHER AND UNSPECIFIED POSTSURGICAL NONABSORPTION On: : Request IRON (60114)Indication: OTHER AND UNSPECIFIED POSTSURGICAL NONABSORPTION On: : Request FERRITIN (20436)Indication: OTHER AND UNSPECIFIED POSTSURGICAL NONABSORPTION On: :12 Request ZINC, BLOOD (03338)Indication: OTHER AND UNSPECIFIED POSTSURGICAL NONABSORPTION On: : Request VITAMIN A (74158)Indication: OTHER AND UNSPECIFIED POSTSURGICAL NONABSORPTION On: : Request TSH (83547)Indication: OTHER AND UNSPECIFIED POSTSURGICAL NONABSORPTION On: : Request MAGNESIUM (98907)Indication: OTHER AND UNSPECIFIED POSTSURGICAL NONABSORPTION On: : Request Folic Acid Serum (29882)Indication: OTHER AND UNSPECIFIED POSTSURGICAL NONABSORPTION On: : Request CHROMIUM (15211)Indication: OTHER AND UNSPECIFIED POSTSURGICAL NONABSORPTION On: :12 Request ASSAY, HOMOCYSTINE (81211)Indication: OTHER AND UNSPECIFIED POSTSURGICAL NONABSORPTION On: :12 Request Metabolic Panel, Basic (72372)Indication: Abdominal pain On: 49-Bak-013625:11 Request Comments: do on this tuesday OSMOLALITY URINE (86021)Indication: Abdominal pain On: :11 Request Comments: today in ambulatory OSMOLALITY BLOOD (50574)Indication: Abdominal pain On: :11 Request Comments: today in ambulatory Lipase (47293)Indication: Abdominal pain On: :11 Request Comments: today in ambulatory Amylase (79824)Indication: Abdominal pain On: :11 Request Comments: today in ambulatory CBC, Platelets & Auto Diff (72042)Indication: Abdominal pain On: :11 Request Comments: today in ambulatory Metabolic Panel, Comprehensive (24813)Indication: Abdominal pain On: :10 Request Comments: today in ambulatory AMYLASE (76252)Indication: Abdominal pain On: 1-Fev-650193:12 Request LIPASE (71017)Indication: Abdominal pain On: 8-Npa-397055:12 Request Ferritin (75729)Indication: Iron deficiency anemia due to dietary causes On: :20 Request Comments: in six months (approximately) Vitamin B-12 (cyanocobalamin) (99547)Indication: Other vitamin B12 deficiency anemia On: :19 Request Comments: in six months (approximately) Lipid Panel (44190)Indication: High blood triglycerides On: :19 Request Comments: in six months (approximately) Metabolic Panel, Comprehensive (32776)Indication: Chronic pancreatitis On: :19 Request Comments: in six months (approximately) Vitamin B-12 (cyanocobalamin) (10745)Indication: Other vitamin B12 deficiency anemia On: :27 Request METABOLIC PANEL, COMPREHENSIVE (30530)Indication: High blood triglycerides On: :19 Request LIPID PANEL (42628)Indication: High blood triglycerides On: :19 Request CBC, Platelets & Auto Diff (45558)Indication: Iron deficiency anemia due to dietary causes On: 76-Vnv-695151:15 Request Ferritin (19504)Indication: Iron deficiency anemia due to dietary causes On: 22-Edc-508267:15 Request Iron (93193)Indication: Iron deficiency anemia due to dietary causes On: :29 Request Comments: recheck in 4 weeks pt needs to be fasting Iron Binding Capacity (TIBC) (19332)Indication: Iron deficiency anemia due to dietary causes On: :29 Request Comments: recheck in 4 weeks pt needs to be fasting Ferritin (33925)Indication: Iron deficiency anemia due to dietary causes On: :28 Request Comments: recheck in 4 weeks pt needs to be fasting METABOLIC PANEL, COMPREHENSIVE (24008)Indication: High blood triglycerides On: :33 Request LIPID PANEL (97624)Indication: High blood triglycerides On: 91-Iiq-676805:33 Request CBC (Auto) (12483)Indication: Iron deficiency anemia due to dietary causes On: 86-Mma-005929:33 Request Ferritin (09593)Indication: Iron deficiency anemia due to dietary causes On: 84-Nxe-400282:33 Request Vitamin B-12 (cyanocobalamin) (22913)Indication: Other vitamin B12 deficiency anemia On: 22-Xxo-219097:32 Request CALCIFIDIOL (58931) VIT D 25Indication: Vitamin D deficiency, unspecified On: 12-Sto-131348:32 Request CULTURE, SPUTUM (41938)Indication: Cough On: 2-Njd-401101:36 Request Iron (55762)Indication: Iron deficiency anemia due to dietary causes On: 23-Zqa-946890:53 Request CALCIFIDIOL (80898) VIT D 25Indication: Vitamin D deficiency, unspecified On: 84-Lza-831557:02 Request CBC (Auto) (55192)Indication: Iron deficiency anemia due to dietary causes On: 0-Yxs-259286:49 Request Metabolic Panel, Comprehensive (56096)Indication: Chronic pancreatitis On: 1-Wck-543692:49 Request Lipid Panel (05367)Indication: High blood triglycerides On: 7-Adh-029850:49 Request Ferritin (78730)Indication: Iron deficiency anemia due to dietary causes On: 0-Ber-523076:48 Request CALCIFEDIOL (73738)Indication: Vitamin D deficiency, unspecified On: :48 Request Vitamin B-12 (cyanocobalamin) (83176)Indication: Other vitamin B12 deficiency anemia On: 9-Fcm-523824:47 Request Lipase (80461)Indication: Chronic pancreatitis On: :47 Request Amylase (80590)Indication: Chronic pancreatitis On: :47 Request D-Dimer (13964)Indication: Anemia On: 21-Oal-743972:28 Request Comments: stat Metabolic Panel, Comprehensive (19506)Indication: Anemia On: :16 Request TYPE & SCREEN GEL (59898)Indication: Anemia On: :16 Request CBC with manual diff (65693)Indication: Anemia On: :15 Request Lipase (40719)Indication: Chronic pancreatitis On: :30 Request Amylase (01129)Indication: Chronic pancreatitis On: 26-Cyg-746328:30 Request Ferritin (52185)Indication: Iron deficiency anemia due to dietary causes On: 09-Gna-138318:28 Request LIPASE (42762)Indication: Chronic pancreatitis On: 6-Zsl-409723:21 Request AMYLASE (36801)Indication: Chronic pancreatitis On: 4-Asu-237401:21 Request Lipase (31928)Indication: Chronic pancreatitis On: 14-Sot-355788:12 Request Amylase (18877)Indication: Chronic pancreatitis On: 49-Jsg-876067:12 Request MICROALBUMIN: CREATININE RATIO (15431) AND (25950)Indication: Chronic pancreatitis On: 47-Bwm-458075:12 Request METABOLIC PANEL, COMPREHENSIVE (48722)Indication: Chronic pancreatitis On: 03-Yci-169521:12 Request LIPID PANEL (70299)Indication: High blood triglycerides On: 56-Gbb-871076:12 Request CBC WITH MANUAL DIFF (81561)Indication: Chronic pancreatitis On: 22-Dkb-376842:12 Request Metabolic Panel, Comprehensive (06078)Indication: Chronic pancreatitis On: 5-Xaa-246452:46 Request Lipase (04669)Indication: Chronic pancreatitis On: 1-Dyy-683829:46 Request Amylase (79158)Indication: Chronic pancreatitis On: 1-Gzt-294441:46 Request CALCIFIDIOL (53490) VIT D 25Indication: Vitamin D deficiency, unspecified On: :43 Request Ferritin (41753)Indication: Iron deficiency anemia due to dietary causes On: :43 Request CBC (Auto) (05946)Indication: Iron deficiency anemia due to dietary causes On: :43 Request PT (Prothrobim Time) (55979)Indication: AFTERCARE, LONG-TERM USE, ANTICOAGULANTS On: :28 Request Lipase (24416)Indication: Chronic pancreatitis On: : Request Amylase (56476)Indication: Chronic pancreatitis On: : Request Metabolic Panel, Comprehensive (04854)Indication: Chronic pancreatitis On: : Request CBC (Auto) (78971)Indication: Leukopenia On: :25 Request Lipid Panel (00418)Indication: High blood triglycerides On: :25 Request Iron (43069)Indication: Iron deficiency anemia due to dietary causes On: :23 Request Ferritin (72798)Indication: Iron deficiency anemia due to dietary causes On: :23 Request Vitamin B-12 (cyanocobalamin) (19558)Indication: Other vitamin B12 deficiency anemia On: :23 Request CALCIFIDIOL (58457) VIT D 25Indication: Vitamin D deficiency, unspecified On: 6-Ffs-033052:23 Request Lipase (21031)Indication: Chronic pancreatitis On: :21 Request Amylase (02395)Indication: Chronic pancreatitis On: 5-Oki-081776:21 Request Comments: pls add to labs already drawn Metabolic Panel, Comprehensive (41678)Indication: Chronic pancreatitis On: : Request Ferritin (15964)Indication: Iron deficiency anemia due to dietary causes On: 3-Prg-336512: Request CBC (Auto) (63930)Indication: Chronic pancreatitis On: 3-Tub-288974:07 Request LIPID PANEL (73178)Indication: High blood triglycerides On: 9-Jth-633447:15 Request Iron Binding Capacity (TIBC) (68134)Indication: Anemia On: :53 Request Iron (34764)Indication: Anemia On: 63-Vty-257019:53 Request Ferritin (70944)Indication: Anemia On: :53 Request CBC (Auto) (96146)Indication: Anemia On: :53 Request Metabolic Panel, Comprehensive (06571)Indication: Chronic pancreatitis On: :53 Request OVA & PARASITE DIR SMEAR (36975)Indication: Diarrhea On: :37 Request LEUKOCYTE COUNT, FECAL (41252)Indication: Diarrhea On: :37 Request C.Difficile, Stool (80056)Indication: Diarrhea On: :37 Request GRETTA CULTURE-STOOL (52339)Indication: Diarrhea On: :37 Request Vitamin B-12 (cyanocobalamin) (45804)Indication: Other vitamin B12 deficiency anemia On: 60-Bql-432607:05 Request Iron (50471)Indication: Anemia On: 46-Lai-431492:05 Request Ferritin (18289)Indication: Anemia On: 51-Wsz-460206:05 Request METABOLIC PANEL, COMPREHENSIVE (40265)Indication: High blood triglycerides On: :05 Request CBC WITH MANUAL DIFF (36315)Indication: Anemia On: 87-Pzp-360199:05 Request LIPID PANEL (32305)Indication: High blood triglycerides On: 46-Kum-558502:04 Request nasal influenza swab (43807) W7Rivfjnaauq: Unspecified Diagnosis On: 7-Xrc-772078:29 Request Rapid Flu (42353 x 2)Indication: Fever On: 7-Hbu-352806:44 Request Lipid Panel (73449)Indication: High blood triglycerides On: 75-Jee-215813:53 Request CBC (Auto) (08490)Indication: Chronic pancreatitis On: 03-Mkr-325244:51 Request Metabolic Panel, Comprehensive (85932)Indication: Chronic pancreatitis On: 52-Cgt-805434:51 Request Ferritin (15989)Indication: Anemia On: 51-Edz-412191:51 Request Iron (93578)Indication: Anemia On: 31-Dmy-965490:51 Request Vitamin B-12 (cyanocobalamin) (39993)Indication: Other vitamin B12 deficiency anemia On: 29-Qgb-626250:51 Request Lipid Panel (36760)Indication: Malabsorption syndrome On: 21-Exl-679473:39 Request Sed Rate Erythrocyte (63559)Indication: Chronic pancreatitis On: :35 Request CBC, Platelets & Auto Diff (94751)Indication: Chronic pancreatitis On: :35 Request Magnesium (70791)Indication: Chronic pancreatitis On: :35 Request Lipase (26183)Indication: Chronic pancreatitis On: :35 Request Amylase (19502)Indication: Chronic pancreatitis On: :35 Request Metabolic Panel, Comprehensive (90405)Indication: Chronic pancreatitis On: :35 Request CBC (Auto) (23132)Indication: Abdominal pain, acute, generalized On: 25-Yuc-948243:29 Request Metabolic Panel, Comprehensive (11280)Indication: Abdominal pain, acute, generalized On: 57-Ona-868115:29 Request Methylmalonic acid, serum 54003Mniaxrukyu: Other vitamin B12 deficiency anemia On: 66-Gto-603786:29 Request CULTURE, SPUTUM (73784)Indication: Cough On: 7-Ctj-006466:42 Request Lipase (95983)Indication: Acute pancreatitis On: 4-Ufu-129238:59 Request Amylase (47229)Indication: Acute pancreatitis On: 0-Fwr-842093:59 Request DESIRAE (ANTINUCLEAR ANTIBODY) (40235)Indication: Pain in unspecified joint On: 7-Khy-077329:48 Request C-REACTIVE PROTEIN (58343)Indication: Pain in unspecified joint On: 2-Mmk-512799:48 Request CBC WITH MANUAL DIFF (65868)Indication: Pain in unspecified joint On: 1-Est-152670:48 Request METABOLIC PANEL, COMPREHENSIVE (79769)Indication: Pain in unspecified joint On: 1-Eod-993072:48 Request RHEUMATOID FACTOR-QUANT (58740)Indication: Pain in unspecified joint On: 9-Jok-514607:48 Request SED RATE ERYTHROCYTE (85137)Indication: Pain in unspecified joint On: 2-Skb-718703:48 Request TSH (00828)Indication: Pain in unspecified joint On: 3-Qeu-069480:48 Request GRETTA CULTURE-OTHER (22387)Indication: Pharyngitis, acute On: 68-Cpb-077425:12 Request Rapid Strep Test, Office (85059)Indication: Pharyngitis, acute On: 60-Yef-197122:12 Request Comments: negative VITAMIN D, 1, 25-DIHYDROXY (33664)Indication: Chronic pancreatitis On: 83-Ase-200272:46 Request Vitamin B-12 (cyanocobalamin) (14024)Indication: Other vitamin B12 deficiency anemia On: 86-Lfb-228800:43 Request Lipase (50131)Indication: Chronic pancreatitis On: 95-Tce-676863:35 Request Amylase (24797)Indication: Chronic pancreatitis On: 09-Fjd-577627:34 Request CBC (Auto) (69531)Indication: Chronic pancreatitis On: 42-Eas-867428:34 Request Metabolic Panel, Comprehensive (21339)Indication: Chronic pancreatitis On: 25-Ufk-891623:34 Request Lipid Panel (27848)Indication: Chronic pancreatitis On: 59-Kab-589756:34 Request Comments: standing order every 3 months Metabolic Panel, Comprehensive (78213)Indication: Edema On: 00-Qhc-309355:13 Request CBC, Platelets & Auto Diff (65497)Indication: Edema On: 16-Nra-668447:13 Request PTT (Activated Partial Thromboplastin Time) (10510)Indication: Edema On: 25-Dsm-599118:12 Request PT (Prothrobim Time) (87560)Indication: Edema On: 07-Vmq-451647:12 Request Lipase (17629)Indication: pancreatitis On: :32 Request Amylase (25278)Indication: pancreatitis On: :32 Request CBC (Auto) (70965)Indication: pancreatitis On: :32 Request Metabolic Panel, Comprehensive (09805)Indication: pancreatitis On: :32 Request Metabolic Panel, Comprehensive (04556)Indication: Fever On: 79-Ahq-767603:57 Request GRTETA CULTURE-BLOOD (06967)Indication: Fever On: 20-Xzh-173392:56 Request Comments: one from peripheral GRETTA CULTURE-BLOOD (82566)Indication: Fever On: 18-Qks-797102:56 Request Comments: one from port Sed Rate Erythrocyte (87783)Indication: Fever On: 01-Rfs-345603:56 Request CBC, Platelets & Auto Diff (27767)Indication: Fever On: :56 Request Urinalysis, Office (12526)Indication: Fever On: 66-Xmw-755929:56 Request GRETTA CULTURE-OTHER (01577)Indication: Fever On: 0-Ypr-129199:53 Request Rapid Strep Test, Office (39760)Indication: Fever On: :52 Request CBC, Platelets & Auto Diff (12892)Indication: Chronic pancreatitis On: :46 Request Lipase (25048)Indication: Chronic pancreatitis On: :46 Request Amylase (46600)Indication: Chronic pancreatitis On: :46 Request Metabolic Panel, Comprehensive (40973)Indication: Chronic pancreatitis On: 1-Glw-991746:46 Request FERRITIN ([id number])Indication: Anemia On: 4-Jfl-655364:22 Request VITAMIN B-12 (CYANOCOBALAMIN) ([id number])Indication: Other vitamin B12 deficiency anemia On: 8-Ajh-233433:22 Request LIPASE ([id number])Indication: Acute pancreatitis On: :22 Request ALBUMIN SERUM ([id number])Indication: Acute pancreatitis On: :22 Request CBC (AUTO) ([id number])Indication: Acute pancreatitis On: 99-Pil-220130:21 Request METABOLIC PANEL, BASIC ([id number])Indication: Abnormal blood chemistry On: 14-Ljl-377625:21 Request Planned Encounters Medical; [facility] (Doctor) - On: 01-May-2018 13:30 [facility] Dima DURAN, Sarah Pizano MD, Sarah Rebollar Planned Procedures Flu Vaccine (Quadrivalent) On: 31-Mar-2018 Intent 61382Vu: COMFORT Gallegos Comments: Lot #:[id number] date: 3-86-12Kxgqdv given:0.5mlRoute: IMSite given:L DltdGiven by: ElaineVIS and ABN signed [employer] SCREENING DIGITAL TOMOSYNTHESIS On: 20-Dec-2017 Intent OF BREAST ([id number])By: Sarah Pizano MD, MD, Dana M DEXA SCAN AXIAL SKELETON On: 20-Dec-2017 Intent ([id number])By: Sarah Pizano MD, MD, Dana M SCREENING DIGITAL TOMOSYNTHESIS On: 29-Apr-2017 Intent OF BREAST ([id number])By: Sarah Pizano MD, MD, Dana M Flu Vaccine (Quadrivalent) On: 29-Apr-2017 Intent [id number]: Sarah Pizano MD Comments: lot: [id number]: 12/19/17ite/route: L kelin, IMamt: 0.5mlVIS and ABN signed when applicableChelsea, MANAGER COMBINATION Sarah Pizano MD CT - Abdomen & Pelvis (IV On: 01-Oct-2016 Intent Contrast Needed)By: Dima DURAN, Comments: attentinon pancrease follow up on kidney cyst. 07-20 creat 0.76 Sarah Ghosh MD Flu Vaccine (Quadrivalent) On: 17-May-2016 Intent 06107Kl: Sarah Pizano MD Comments: FLUlot: [id number]:11/17site:Lt deltoidroute:IMdose:.5mlDEMICK, MA Sarah Pizano MD Aerosol Treatment ([id number])By: On: 27-Apr-2016 Intent Kacey Rodriges LPN DEXA SCAN AXIAL SKELETON On: 09-Mar-2016 Intent (00801)By: aSrah Pizano MD, MD, Dana M MAMMOGRAM, SCREENING, BOTH On: 09-Mar-2016 Intent BREAST ([id number])By: Sarah Pizano MD, MD, Dana M DEXA SCAN AXIAL SKELETON On: 15-Jul-2015 Intent ([id number])By: Sarah Pizano MD, MD, Dana M MAMMOGRAM, SCREENING, BOTH On: 15-Jul-2015 Intent BREAST ([id number])By: Sarah Pizano MD, MD, Dana M Aerosol Treatment ([id number])By: On: 08-Jul-2015 Intent Pamella Saavedra CNP Aerosol Treatment ([id number])By: On: 08-Jul-2015 Intent Slarb IRRIGATION DISTRICT MANAGER, Kacey XR HIP RIGHT COMPLETE ([id number])By: On: 30-Jun-2015 Intent Sarah Pizano MD, MD, Comments: right hip Sarah Rebollar Radiology - PelvisBy: Dima On: 24-Jun-2015 Intent Sarah DURAN MD, Dana M Comments: and right hip xray Venous Doppler - RightBy: On: 24-Jun-2015 Intent Sarah Pizano MD, MD, Comments: leg Sarah Rebollar Flu Vaccine (Quadrivalent) On: 15-Apr-2015 Intent 87562Ii: Sarah Pizano MD Comments: lot [id number]: 01/01/2016site/route L kelin, IMamt 0.5mlVIS and ABN signed when applicableHellenlsmadeleine CMA4 Sarah Pizano MD Radiology - ChestBy: Quentin ARGUETA, On: 07-Feb-2015 Intent Adeola Aerosol Treatment (84264)By: On: 07-Feb-2015 Intent Ailyn Aguilar Solu -Medrol Injection, 125 mg On: 05-Feb-2015 Intent (J2930)By: Pamella Saavedra CNP Comments: lot:[id number]:route:IMdose:125MGsite: R glutGiven by: FOX Angeles Solu -Medrol Injection, 125 mg On: 04-Feb-2015 Intent (J2930)By: Pamella Saavedra CNP Aerosol Treatment ([id number])By: On: 04-Feb-2015 Intent Pamella Saavedra CNP MAMMOGRAM, SCREENING, BOTH On: 14-Jan-2015 Intent BREAST (73027)By: Sarah Pizano MD, MD, Dana M Prevnar 13 (67684)By: Dima On: 16-Jul-2014 Intent Sarah DURAN MD, Dana M ADMINISTRATION OF INFLUENZA On: 22-Apr-2014 Intent VIRUS VACCINE (G0008)By: Sarah Pizano MD, MD, Dana M FLU VAC, SPLIT, >3 YEARS, On: 22-Apr-2014 Intent INTRAMUSC (17291)By: Dima DURAN, Comments: Lot #:[id number] date:mount given:0.5mlRoute: IMSite given:left deltoid Given by: Sarah Mota MD Phenergan Injection, up to 50 mg On: 12-Dec-2013 Intent (J2550)By: Pamella Saavedra CNP MAMMOGRAM, SCREENING, BOTH On: 25-Sep-2013 Intent BREASTS (47952)By: Sarah Pizano MD, MD, Dana M Eprescribed prescriptions On: 25-Sep-2013 Intent (G8553)By: Sarah Pizano MD, MD, Dana M Aerosol Treatment (60770)By: On: 05-Sep-2013 Intent [address]ella Saavedra CNP CT - Abdomen & Pelvis (IV On: 04-Jun-2013 Intent Contrast Needed)By: Sarah Pizano MD, MD, Dana M DXA, BONE DENSITY, AXIAL On: 04-Jun-2013 Intent SKELETON (04151)By: Dima DURAN, Comments: postmenapausal Sarah Ghosh MD MAMMOGRAM, SCREENING, BOTH On: 04-Jun-2013 Intent BREASTS (24750)By: Sarah Pizano MD, MD, Dana M Pulse Oximetry (00739)By: On: 04-Jun-2013 Intent COMFORT Gallegos Eprescribed prescriptions On: 14-May-2013 Intent (G8553)By: Melba Malloy ELECTROCARDIOGRAM, COMPLETE On: 26-Dec-2012 Intent (ECG) (53214)By: Sarah Pizano MD, MD, Dana M Eprescribed prescriptions On: 26-Dec-2012 Intent (G8553)By: Makenzie Allred LPN MAMMOGRAM, SCREENING, BOTH On: 24-Aug-2012 Intent BREASTS (32560)By: Sarah Pizano MD, MD, Dana M Pulse Oximetry (38984)By: On: 29-Jun-2012 Intent COMFORT Gallegos Radiology - Chest- PA and LatBy: On: 01-Jun-2012 Intent Sofia Younger DO Eprescribed prescriptions On: 01-Jun-2012 Intent (G8553)By: Kim Garces LPN FLU VAC, SPLIT, >3 YEARS, On: 28-Apr-2012 Intent INTRAMUSC (09289)By: Balaji, Comments: Lot:[id number]:630.13Dose:prefilledRoute:IMSite:L DltdGiven By:BARRY Garcia IMMUNIZ ADMNIN, 1 VAC, On: 28-Apr-2012 Intent SNGL/COMBO (85568)By: Radha Carpio TDAP VACCINE >7 IM (80857)By: On: 24-Nov-2011 Intent Long Makenzie ABBOTT Comments: Lot #[id number]- 11.13Site- L arm, ImDose prefilledgiven by: Makenzie MAMMOGRAM, SCREENING, BOTH On: 01-Nov-2011 Intent BREASTS (68044)By: Dima DURAN, Sarah Pizano MD, Sarah Rebollar Aerosol Treatment (70218)By: On: 14-Oct-2011 Intent Sofia Younger DO Comments: [...] SPLIT, >3 YEARS, On: 20-Apr-2011 Intent INTRAMUSC (80646)By: Cayden Comments: Lot #[id number]-5/30/12Site-left deltoidgiven by: Jared Rodarte LPN LPN, Chery IMMUNIZ ADMNIN, 1 VAC, On: 20-Apr-2011 Intent SNGL/COMBO (23875)By: Chery Rodarte LPN B 12 Injection, 1000 mcg On: 22-Mar-2011 Intent (J3420)By: COMFORT Gallegos DRAIN/INJECT MAJOR JOINT OR On: 22-Mar-2011 Intent BURSA ()By: COMFORT Gallegos Comments: Lot #:[id number] date: given:2ml Route: intra articular Site given:bilateral knees Given by: Dr. Pizano Pulse Oximetry (83356)By: Quentin On: 19-Mar-2011 Intent SOLDERING MACHINE TENDER, Adeola Aerosol Treatment (34480)By: On: 19-Mar-2011 Intent Ciesa SOLDERING MACHINE TENDER, Adeola DRAIN/INJECT MAJOR JOINT OR On: 12-Mar-2011 Intent BURSA ()By: COMFORT Gallegos Comments: Lot #:[id number] date: given:2ml Route: intra articular Site given:bilateral knees Given by: Dr. Pizano DRAIN/INJECT MAJOR JOINT OR On: 04-Mar-2011 Intent BURSA ()By: COMFORT Gallegos Comments: Lot #:[id number] date: given:2mlRoute: intra articular Site given:Bilateral knees Given by: Dr. Pizano injection #1 Kenalog Injection, 10 mgm On: 08-Feb-2011 Intent (J3301)By: Sarah Pizano MD Comments: x 8 Sarah Pizano MD Breast Ultrasound - LeftBy: On: 08-Feb-2011 Intent Sarah Pizano MD, MD, Dana M DXA, BONE DENSITY, AXIAL On: 02-Nov-2010 Intent SKELETON (50853)By: Sarah Pizano MD, MD, Dana M MAMMOGRAM, SCREENING, BOTH On: 02-Nov-2010 Intent BREASTS (10311)By: Sarah Pizano MD, MD, Dana M FLU VAC, SPLIT, >3 YEARS, On: 17-Jun-2010 Intent INTRAMUSC (02016)By: Mitchelluszsaskia Comments: Lot #[id number] 4PExp-4/11Site-right deltoidgiven by:LIBRADO IRRIGATION DISTRICT MANAGER, Chery IMMUNIZ ADMNIN, 1 VAC, On: 17-Jun-2010 Intent SNGL/COMBO (89470)By: Chery Rodarte LPN DXA, BONE DENSITY, AXIAL On: 30-Sep-2009 Intent SKELETON (70143)By: Dima DURAN, Sarah Pizano MD, Sarah Rebollar MAMMOGRAM, SCREENING, BOTH On: 30-Sep-2009 Intent BREASTS (89323)By: Dima DURAN, Sarah Pizano MD, Sarah Rebollar B 12 Injection, 1000 mcg On: 30-Sep-2009 Intent (J3420)By: COMFORT Gallegos Pulse Oximetry (90298)By: Quentin On: 09-Apr-2009 Intent SOLDERING MACHINE TENDER, Adeola Aerosol Treatment (71371)By: On: 09-Apr-2009 Intent Ciesa SOLDERING MACHINE TENDER, Adeola FLU VAC, SPLIT, >3 YEARS, On: 26-Mar-2009 Intent INTRAMUSC (11110)By: Lisa HERRON, Andie IMMUNIZ ADMNIN, 1 VAC, On: 26-Mar-2009 Intent SNGL/COMBO (18550)By: Lisa RN, Comments: Lot #: [id number] date: mount given: 0.5 mlRoute: IMSite given: left deltoidGiven by: SCAR Montenegro INJECTION, VITAMIN B-12 On: 07-Feb-2009 Intent CYANOCOBALAMIN, UP TO 1000 MCG Comments: Lot #[id number] date:mount given:1mlSite given: right deltoidGiven by:Wf. (Special Coverage Instructions Apply. See [facility]: 45-4 and [facility]: 2049) (J3420)By: COMFORT Gallegos Pulse Oximetry (93493)By: Ceci On: 04-Dec-2008 Intent Rosa Maria AGUAYO Comments: post xwnezphnd42% Aerosol Treatment (92867)By: On: 04-Dec-2008 Intent Fast Rosa Maria AGUAYO Comments: done-aw B 12 Injection, 1000 mcg On: 04-Dec-2008 Intent (J3420)By: Tonia Garcia Comments: Lot #[id number]-05/2010Site-right fmvbhlnZuxc4967vaj/1mlgiven by Debbie Lei LPN Pulse Oximetry (76450)By: On: 04-Dec-2008 Intent Tonia Garcia Comments: 91% [...] Intent (J3420)By: COMFORT Gallegos Comments: Lot #[id number]-05/2010Site-right ojygnowOalf6301rac/1mlgiven by Debbie Lei LPN DRAIN/INJECT MAJOR JOINT OR On: 09-Oct-2008 Intent BURSA ()By: COMFORT Gallegos Comments: Lot #:[id number] date:mount given:Route: intra articular Site given:bilateral knees Given by: Dr. Pizano DRAIN/INJECT MAJOR JOINT OR On: 01-Oct-2008 Intent BURSA ()By: COMFORT Gallegos Comments: Lot #:[id number] date:mo given:2.5ml Route:intra-articular Site given:Bilateral knees Given by: Dr. Pizano DRAIN/INJECT MAJOR JOINT OR On: 24-Sep-2008 Intent BURSA ()By: COMFORT Gallegos Comments: Lot #:[id number] date: Amount given:2.5 mlRoute: intra-articular Site given:bilateral knees Given by: Dr. Pizano DRAIN/INJECT MAJOR JOINT OR On: 17-Sep-2008 Intent BURSA ()By: COMFORT Gallegos Comments: Lot #:[id number] date:mount given:2 grams Route: Intra articular Site given: bilateral knees Given by: Dr. Pizano DRAIN/INJECT MAJOR JOINT OR On: 13-Sep-2008 Intent BURSA ()By: COMFORT Gallegos Comments: Lot #:[id number] date:05-10 Amount given:2.5MLRoute: INTRA ARTICULAR Site given:bilateral knees Given by: Dr. Pizano B 12 Injection, 1000 mcg On: 10-Sep-2008 Intent (J3420)By: COMFORT Gallegos B 12 Injection, 1000 mcg On: 29-Jul-2008 Intent (J3420)By: Denise Collazo Comments: Amt: 1mlLot: [id number]: 02/10Route: IMSite: right deltTolerated: wellGiven By: SCAR Sood Pulse Oximetry (60499)By: Quentin On: 29-Jul-2008 Intent SOLDERING MACHINE TENDER, Adeola Aerosol Treatment (49937)By: On: 29-Jul-2008 Intent Ciesa SOLDERING MACHINE TENDER, Adeola Aerosol Treatment (68543)By: On: 16-Jul-2008 Intent Sofia Younger DO Comments: done-awnoise resolved and much more air exchange Pulse Oximetry (75308)By: Carisa On: 16-Jul-2008 Sofia Davis DO Comments: 93% Solu- Medrol Injection, 125mg On: 16-Jul-2008 Intent (J2930)By: Sofia Younger DO Comments: Lot #[id number]-6/11Site-right sbbYabo1ro/125mggiven by Debbie Lei LPN B 12 Injection, 1000 mcg On: 30-Apr-2008 Intent (J3420)By: Prema Lei Comments: Lot #[id number]-/10Site-right dbjjvvjNele7uvtzhto by Debbie Lei LPN DXA, BONE DENSITY, AXIAL On: 30-Apr-2008 Intent SKELETON (64471)By: Dima DURAN, Comments: estrogen def Sarah Pizano MD, Sarah Rebollar MAMMOGRAM, SCREENING, BOTH On: 30-Apr-2008 Intent BREASTS (43201)By: Dima DURAN, Sarah Pizano MD, Sarah Rebollar B 12 Injection, 1000 mcg On: 27-Mar-2008 Intent (J3420)By: Tonia Garcia Comments: Lot #:[id number] date:mount given:.1mlRoute: IMSite given:left deltoidGiven by: EDEN Salcido Pulse Oximetry (73716)By: On: 27-Mar-2008 Intent Tonia Garcia Comments: 96% Pulse Oximetry (06909)By: On: 14-Mar-2008 Intent COMFORT Gallegos B 12 Injection, 1000 mcg On: 06-Feb-2008 Intent (J3420)By: Pamella Saavedra CNP Comments: Lot #:[id number] date: Amount given:1ml Route: IMSite given:left deltoid Given by: billy Solu -Medrol Injection, 125 mg On: 06-Feb-2008 Intent (J2930)By: Pamella Saavedra CNP Comments: Lot #:[id number] date:mount given:125mgRoute: IMSite given:left gluteal Given by: aretha Pulse Oximetry (12385)By: Quentin On: 06-Feb-2008 Intent Pamella ARGUETA Aerosol Treatment (11276)By: On: 06-Feb-2008 Intent Pamella Saavedra CNP B 12 Injection, 1000 mcg On: 21-Dec-2007 Intent (J3420)By: Ledy Nogueira Comments: given in right deltoid, lot#[id number], exp.3.10 >Wf. B 12 Injection, 1000 mcg On: 03-Oct-2007 Intent (J3420)By: Pamella Saavedra CNP Pulse Oximetry (15592)By: Quentin On: 03-Oct-2007 Intent Pamella ARGUETA Aerosol Treatment (15676)By: On: 03-Oct-2007 Intent Pamella Saavedra CNP Pulse Oximetry (43188)By: Lenny, On: 16-Aug-2007 Intent Cira Aerosol Treatment (38944)By: On: 16-Aug-2007 Intent Sofia Younger DO Comments: no wheeze and better air exchange Solu- Medrol Injection, 125mg On: 16-Aug-2007 Intent (J2930)By: Sofia Younger DO Comments: given in left buttocks.lot # [id number]\Exp 02/2010 SPECIMEN HNDLNG/TRNSPRT, OFFC > On: 16-Aug-2007 Intent LAB (09089)By: Sofia Younger DO B 12 Injection, 1000 mcg On: 01-Aug-2007 Intent (J3420)By: Prema Lei Comments: Lot #[id number]-05/12Site-left zrdipryGddf3qmxsclv by Debbie Lei LPN CT - ChestBy: Sarah Pizano MD On: 01-Aug-2007 Intent Sarah Pizano MD FLU VAC, SPLIT, >3 YEARS, On: 18-Apr-2007 Intent INTRAMUSC (20036)By: Sarah Pizano MD, MD, Dana M IMMUNIZ ADMNIN, 1 VAC, On: 18-Apr-2007 Intent SNGL/COMBO (58289)By: Sarah Pizano MD, MD, Dana M B [...] HNDLNG/TRNSPRT, OFFC > On: 10-Oct-2006 Intent LAB (35447)By: Sarah Pizano MD, MD, Dana M Solu -Medrol Injection, 125 mg On: 16-Sep-2006 Intent (J2930)By: Sarah Pizano MD Comments: lot # [id number] exp 04-[address] gluteal by Sarah Chacon lpn, MD Pulse Oximetry (98051)By: On: 16-Sep-2006 Intent Sarah Pizano MD, MD, Dana M Aerosol Treatment (43233)By: On: 16-Sep-2006 Intent Sarah Pizano MD, MD, Dana M Pulse Oximetry (60751)By: On: 04-Aug-2006 Intent Sarah Pizano MD, MD, Dana M EKG (15311)By: Sarah Pizano MD On: 08-Jul-2006 Intent Sarah Morfin MD IMMUNIZ ADMNIN, 1 VAC, On: 06-May-2006 Intent SNGL/COMBO (95503)By: Ramiro ABBOTT, Peg FLU VAC, SPLIT, >3 YEARS, On: 06-May-2006 Intent INTRAMUSC (08189)By: Ramiro ABBOTT, Comments: Lot #:Expiration date:Amount given:Route: imSite given:r armGiven by: galina golden lpn Peg Echo CompleteBy: Dima DURAN, On: 19-Apr-2006 Intent Sarah Ghosh MD CT - Abdomen & PelvisBy: Dima On: 19-Apr-2006 Intent Sarah DURAN MD, Dana M Comments: ?obstruction, pancreatitis, attention kidney cyst send to [facility] gastrologist [facility] Planned Medications INJECTION, METHYLPREDNISOLONE SODIUM SUCCINATE, UP TO 125 MG Ordered: 14-Oct-2011 Pending Sofia Younger DO INJECTION, METHYLPREDNISOLONE SODIUM SUCCINATE, UP TO 125 MG Ordered: 04-Feb-2015 Pending Ciesa SOLDERING MACHINE TENDER, Adeola INJECTION, METHYLPREDNISOLONE SODIUM SUCCINATE, UP TO 125 MG Ordered: 05-Feb-2015 Pending Ciesa SOLDERING MACHINE TENDER, Adeola INJECTION, TRIAMCINOLONE ACETONIDE, NOT OTHERWISE SPECIFIED, [...] Advance Directives Name Dates Details Immunization Registry [place] - Effective on Effective: 29-Apr-201704/29/2017. Expiration date [...] TO DIETARY IRON DEFICIENCY (280.1), [facility] V73.21 [place] (Renamed from [facility]) [facility] Office Visit On: 29-Jun-2012 [...] docs for this Dr Jacob rabago at [facility]-- -- feels similiar to what she had [...] months. Note for Fever: pt had epidural [id number] Diagnosis: Dehydration(276.51), Abdominal Pain,Generalized (789.07), FEVER (780.6) [...] care visit: swelling better with aldactone, reviewed trial consultant's letter use compression, work up from [...] weekend , bite [place] flies, [place], no fever abd pain still hit [...] chemistry (790.6) [facility] Payers [facility] COBIAN; junie guarantor
--- OUTSIDE RECORDS SUMMARY | 2018-08-02 06:02 | XMS RPT_ITS | Continuity of Care Document ---
:1955 Author Organization [facility] Address [address] [facility] [address] [place] [address] Phone Care Team Providers Name Role Phone [...] cervical.doing every 6 months. george leaving to [place]. reconmmend Dr. romero and i talk to [...] 0 days Quantity: 90 {Tablet} Refills: 3 Ordered:25-Apr-2018 Sarah Pizano MD, MD, Dana M Start : 25-Apr-2018 Active Azelastine HCl 0.1 % Nasal Solution 1 (one) Solution Solution 2 spray each nostril bid for 0 days Quantity: 1 {Each} Refills: 2 Ordered:23-Jul-2016 COMFORT Gallegos Start : 23-Jul-2016 Active Calcium 1200mg 1 qd Active Comments:plus 1000IU Vitamin D3 Creon 57534 UNIT Oral Capsule Delayed Release Particles 2 [...] MD, Dana M Start : 30-Nov-2016 Active Denio 5-325 MG Oral Tablet 1 (one) Tablet [...] Start : 14-Apr-2018 Active Vitamin D (Ergocalciferol) 83451 UNIT Oral Capsule 1 (one) capsule twice [...] MD, Dana M Start : 06-Feb-2018 Active Comments:[id number] called to [facility] ADVAIR DISKUS, 100-50MCG/DOSE [...] End : 24-Aug-2012 Inactive CALCIUM 500/VITAMIN D, 411-425VG-IQOG (Oral Tablet) 1 (one) Tablet daily for [...] : 09-Mar-2016 End : 04-Jun-2016 Inactive Drisdol 78405 UNIT Oral Capsule 1 Capsule two times [...] : 21-Dec-2007 End : 14-Mar-2008 Inactive Nystatin 059152 UNIT/GM External Powder 1 Powder bid for [...] weight. on creon and cararfate will see ondnia. talk about using mylanta daily. some diarrhea [...] cervical.doing every 6 months. george leaving to [place]. reconmmend Dr. romero and i talk to [...] Procedures Procedure Dates Details [place] (20409) Date: 01-Oct-2016 Cancelled Cholecystectomy Completed GASTRIC BYPASS, OPEN (54707) Completed Comments: 1997, Dr. lindsay did for recurrent pancreatitis, this is what helped her. Hysterectomy; Abdominal Completed JEJUNOSTOMY (43840) Completed Comments: 1995 closed 1997 when had gastric bypass, because of pancreatitis and was tube feed for 2 years Date Value Details 21-Mar-2018 Dexa Bone Density Study Result: Comments: See Note; NOTES: [facility] Imaging Services [address] [place] [address] Dexa Bone Density Study MR#: [id number] Acct: [id number] Name: JOSE J COBIAN Rep #: [id number] : 1955 F 63 From: Bartolome Patel MD PCP: Sarah Pizano MD Status: REG CLI Study: Dexa Bone Density Study Date of Exam: 03/21/18 Exam# [id number] Ordering Dr: Sarah Pizano MD STUDY: D [...] Bartolome Patel MD at 15:07 EDT Tel [phone], Service support , CC: Sarah Pizano MD Driver Utility Worker: Signed 21-Mar-2018 SCREENING MAMM (CAD), BILAT Result: Comments: See Note; NOTES: [facility] Imaging Services [address] [place] [address] SCREENING MAMM (CAD), BILAT MR#: [id number] Acct: [id number] Name: JOSE J COBIAN Rep #: [id number] : 1955 F 63 From: Bartolome Patel MD PCP: Sarah Pizano MD Status: REG CLI Study: SCREENING MAMM (CAD), BILAT Date of Exam: 03/21/18 Exam# [id number] Ordering Dr: Sarah Pizano MD MAMMOGRAPHY - [...] biopsy of a clinically suspicious abno rmality. [id number] Electronically Signed: Bartolome Patel MD at 13:21 EDT Tel [phone], Service support , CC: Sarah Pizano MD Driver Utility Worker: Signed 07-Nov-2017 Operative Report Result: Comments: See Note; NOTES: [facility] Medical Records Department [address] [place] [address] Operative Report 11/07/17 1027 MR#: [id number] Acct: [id number] Name: JOSE J COBIAN Rep #: [id number] : 1955 62 From: Bubba Romero MD PCP: Sarah Pizano MD Status: REG [facility] Y Location: [place] [address] Problem List (1) Disc disease, degenerative, lumbar [...] Views Result: Comments: See Note; NOTES: [facility] Imaging Services [address] [place] [address] L/S Spine Min 4 Views MR#: [id number] Acct: [id number] Name: JOSE J COBIAN Rep #: [id number] : 1955 F 62 From: Bartolome Patel MD PCP: Sarah Pizano MD Status: [facility] Study: L/S Spine Min 4 Views Date of Exam: 11/07/17 Exam# [id number] Ordering Dr: Bubba Romero MD PROCEDURE : [...] Bartolome Patel MD at 11:01 EDT Tel [phone], Service support , CC: Sarah Pizano MD; Bubba Romero Driver Utility Worker: Signed 04-Oct-2017 Cardiology Visit Report Result: Comments: See Note; NOTES: [facility] [address] [place] [address]. 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 Accompanied by: Is patient in [...] PRN 09/08/15 [History Confirmed 10/03/17] Calcium (Elemental) [Os-Wnady 500] 500 mg PO DAILY@0800 10/20/15 [History Confirmed 10/03/17] Baden codone Bitart/Apap 5-325 [Denio 5/325] 1 tab PO Q4H PRN PRN [...] Report Result: Comments: See Note; NOTES: [facility] Medical Records Department [address] [place] [address] Operative Report 09/05/17 0944 MR#: [id number] Acct: [id number] Name: JOSE J COBIAN Rep #: [id number] : 1955 62 From: Bubba Romero MD PCP: Sarah Pizano MD Status: [facility] Y Location: [place] [address] Problem List (1) Lumbosacral spondylosis Status: Chronic [...] Views Result: Comments: See Note; NOTES: [facility] Imaging Services [address] [place] [address] L/S Spine Min 4 Views MR#: [id number] Acct: [id number] Name: JOSE J COBIAN Rep #: [id number] : 1955 F 62 From: Bartolome Patel MD PCP: Sarah Pizano MD Status: [facility] Study: L/S Spine Min 4 Views Date of Exam: 09/05/17 Exam# [id number] Ordering Dr: Bubba Romero MD PROCEDURE : [...] Bartolome Patel MD at 9:02 EST Tel [phone], Service support , CC: Sarah Pizano MD; Bubba Romero Driver Utility Worker: Signed 08-Aug-2017 Operative Report Result: Comments: See Note; NOTES: [facility] Medical Records Department [address] [place] [address] Operative Report 08/08/17 1408 MR#: [id number] Acct: [id number] Name: JOSE J COBIAN Rep #: [id number] : 1955 62 From: Bubba Romero MD PCP: Sarah Pizano MD Status: DEP [facility] Y Location: [facility] Problem List (1) [...] Views Result: Comments: See Note; NOTES: [facility] Imaging Services [address] [place] [address] Lumbar Spine 2 or 3 Views MR#: [id number] Acct: [id number] Name: JOSE J COBIAN Rep #: [id number] : 1955 F 62 From: Bartolome Patel MD PCP: Sarah Pizano MD Status: [facility] Study: Lumbar Spine 2 or 3 Views Date of Exam: 08/08/17 Exam# [id number] Ordering Dr: Bubba Romero MD P ROCEDURE: [...] Bartolome Patel MD at 11:32 EST Tel [phone], Service support , CC: Sarah Pizano MD; Bubba Romero Driver Utility Worker: Signed 09-May-2017 Operative Report Result: Comments: See Note; NOTES: [facility] Medical Records Department [address] [place] [address] Operative Report 05/09/17 1348 MR#: [id number] Acct: [id number] Name: JOSE J COBIAN Rep #: [id number] : 1955 62 From: Bubba Romero MD PCP: Sarha Pizano MD Status: REG [facility] Y Location: [place] [address] Report of Operation Date of Procedure: 05/09/17 [...] Inj Result: Comments: See Note; NOTES: [facility] Imaging Services [address] [place] [address] Fluor Guidance for Spine Inj MR#: [id number] Acct: [id number] Name: JOSE J COBIAN Rep #: [id number] : 1955 F 62 From: Bartolome Patel MD PCP: Sarah Pizano MD Status: [facility] Study: Fluor Guidance for Spine Inj Date of Exam: 05/09/17 Exam# [id number] Ordering Dr: Bubba Romero MD PROCEDURE: Caudal [...] Bartolome Patel MD at 14:03 EST Tel [phone], Service support , CC: Sarah leigh MD; Bubba Romero Driver Utility Worker: Signed 29-Apr-2017 L/S Spine Min 4 Views Result: Comments: See Note; NOTES: [facility] Imaging Services [address] [place] [address] L/S Spine Min 4 Views MR#: [id number] Acct: [id number] Name: JOSE J COBIAN Rep #: [id number] : 1955 F 62 From: Feliberto Sim MD PCP: Sarah Pizano MD Status: REG CLI Study: L/S Spine Min 4 Views Date of Exam: 04/29/17 Exam# [id number] Ordering Dr: Lizeth Sanches STUDY: X-RAY - [...] , CC: Lizeth Sanches; Sarah Pizano MD Driver Utility Worker: Signed 21-Mar-2017 Operative Report Result: Comments: See Note; NOTES: [facility] Medical Records Department [address] [place] [address] Operative Report 03/21/17 0841 MR#: [id number] Acct: [id number] Name: JOSE J COBIAN Rep #: [id number] : 1955 62 From: Bubba Romero MD PCP: Sarah Pizano MD Status: [facility] Y Location: [facility] Problem List (1) [...] Views Result: Comments: See Note; NOTES: [facility] Imaging Services [address] [place] [address] Cerv Spine 4 or 5 Views MR#: [id number] Acct: [id number] Name: JOSE J COBIAN Rep #: [id number] : 1955 F 62 From: Daniel Manzano DO PCP: Sarah Pizano MD Status: [facility] Study: Cerv Spine 4 or 5 Views Date of Exam: 03/21/17 Exam# [id number] Ordering Dr: Bubba Romero MD STUDY: X-RAY - CERVICAL SPINE REASON FOR EXAM: Female, 62 years old. Cervical block TECHNIQUE: 4 view(s) of the cervical spine were obtained. COMPARISON: None FINDINGS: Face t block was performed with 4 spot fluoroscopy images obtained. Total fluoroscopy time 14.7 seconds. Please see performing physician's report for further details ORD ER #: [id number] RAD/Cerv Spine 4 or 5 Views IMPRESSION: As above Electronically Signed: Daniel Manzano DO at 16:12 EDT Tel , Service support , CC: Sarah Pizano MD; Bubba Romero Driver Utility Worker: Signed 17-Jan-2017 Operative Report Result: Comments: See Note; NOTES: [facility] Medical Records Department [address] [place] [address] Operative Report 01/17/17 1246 MR#: [id number] Acct: [id number] Name: JOSE J COBIAN Rep #: [id number] : 1955 61 From: Bubba Romero MD PCP: Sarah Pizano MD Status: DEP [facility] Y Location: [facility] Problem List (1) [...] Views Result: Comments: See Note; NOTES: [facility] Imaging Services [address] [place] [address] Verdana 4d Cerv Spine 4 or 5 Views MR#: [id number] Acct: [id number] Name: JOSE J COBIAN #: [id number] : 1955 F 61 From: Tonia Galvan MD PCP: Sarah Pizano MD Status: [facility] Study: Cerv Spine 4 or 5 Views Date of Exam: 01/17/17 Exam# [id number] Ordering Dr: Bubba Romero MD STUDY: X-RAY [...] Tonia Galvan MD at 16:36 EDT Tel [phone], Service support , CC: Sarah Pizano MD; Bubba Romero Driver Utility Worker: Signed 09-Oct-2016 Abdomen/Pelvis WITH Contrast Result: Comments: See Note; NOTES: [facility] Imaging Services [address] [place] [address] [place] [address] 4d Abdomen/Pelvis WITH Contrast MR#: [id number] Acct: [id number] Name: VIRAJ COBIAN Rep #: [id number] : 1955 F 61 From: Enrike Peres PCP: Sarah Pizano MD Status: REG CLI Study: Abdomen/Pelvis WITH Contrast Date of Exam: 10/09/16 Exam# [id number] Ordering Dr: Sarah Pizano MD STUDY: CT [...] at 9:47 EDT Tel , Service support [phone], CC: Sarah Pizano MD Driver Utility Worker: Signed 23-Aug-2016 Operative Report Result: Comments: See Note; NOTES: [facility] Medical Records Department [address] [place] [address] Operative Report MR#: [id number] Acct: [id number] Name: JOSE J COBIAN Rep #: [id number] : 1955 61 From: Bubba Romero MD PCP: Sarah Pizano MD Status: DEP [facility] DATE OF SERVICE: [...] indicated. Bubba Romero MD T: NTS JOB: [id number] 08/23/16 1357 <Electronica lly signed by Bubba Romero MD> Date Bubba Romero MD Cosigner Signature (If Indicated): Date ____ CC: Sarah Pizano MD; Bubba Romero Date Dictated: 08/09/16 1311 Date Transcribed: 08/09/16 131 Driver Utility Worker: Signed 09-Aug-2016 Thoracic Spine 3 Views Result: Comments: See Note; NOTES: [facility] Imaging Services [address] [place] [address] Verdana 4d Thoracic Spine 3 Views MR#: [id number] Acct: [id number] Name: JOSE J COBIAN Chantale p #: [id number] : 1955 F 61 From: Azalia Fernandes MD PCP: Sarah Pizano MD Status: [facility] Study: Thoracic Spine 3 Views Date of Exam: 08/09/16 Exam# [id number] Ordering Dr: Bubba Romero MD [facility] DY: X-RAY - THORACIC SPINE [...] at 1 2:18 EST , Service support [phone], CC: Sarah Pizano MD; Bubba Romero Driver Utility Worker: Signed 01-Jun-2016 PT D/C of Non Returning Pt (1) Result: Comments: See Note; NOTES: [facility] Physical Therapy [facility] [address] [place] [address]. [address] [place] [address] Fax REHABILITATION SERVICES DISCHAR GE SUMMARY MR#: [id number] Acct: [id number] Name: JOSE J COBIAN Rep #: [id number] Report Result: Comments: See Note; NOTES: [facility] Medical Records Department [address] [facility] [place] [address] Operative Report MR#: [id number] Acct: [id number] Name: JOSE J COBIAN Rep #: [id number] : 1955 61 From: Bubba Romero MD PCP: Sarah Pizano MD Status: DEP [facility] DATE OF SERVICE: [...] procedure if indicated. Bbuba Romero MD T: [facility] JOB: [id number] 04/05/16 1351 <E lectronically signed by Bubba Romero MD> Date Bubba Romero MD Cosigner Signature (If Indicated): Date CC: Sarah Pizano MD; Bubba Romero Date Dictated: 03/22/161415 Date Transcribed: 03/22/161415 Driver Utility Worker: Signed 01-Apr-2016 Echocardiogram Complete Result: Comments: See Note; NOTES: [facility] Cardiovascular Services [address] [place] [address] Echo Complete 04/01/16 1256 MR#: [id number] Acct: [id number] Name: JOSE J COBIAN Rep #: [id number] : 1955 61 From: Antonino Lucas MD Attending Dr: Antonino Lucas MD Status: REG CLI Ordering Dr: Antonino Lucas MD Date: 04/01/16 Location: [facility] Sex: F C Admitted: Reason For Study: [...] Dictated: 04/01/16 1256 Date Transcribed: 04/01/16 1515 Driver Utility Worker: Signed 22-Mar-2016 Breast Limited Unilateral Result: Comments: See Note; NOTES: [facility] Imaging Services [address] [place] [address] Verdana 4d Breast Limited Unilateral MR#: [id number] Acct: [id number] Name: JOSE J COBIAN Rep #: [id number] : 1955 F 61 From: Bartolome Patel MD PCP: Sarah Pizano MD Status: REG CLI Study: Breast Limited Unilateral Date of Exam: 03/22/16 Exam# [id number] Ordering Dr: Zack Pizano MD STUDY: ULTRASOUND [...] Bartolome Patel MD at 12:35 EDT Tel [phone], Service support [phone], CC: Sarah Pizano MD Driver Utility Worker: Signed 19-Mar-2016 Thoracic Spine 3 Views Result: Comments: See Note; NOTES: [facility] Imaging Services [address] [place] [address] Verdana 4d Thoracic Spine 3 Views MR#: [id number] Acct: [id number] Name: JOSE J COBIAN ep #: [id number] : 1955 F 61 From: Bartolome Patel MD PCP: Sarah Pizano MD Status: [facility] Study: Thoracic Spine 3 Views Date of Exam: 03/22/16 Exam# [id number] Ordering Dr: Bubba Romero MD STUDY: X-RAY [...] Bartolome Patel MD at 14:10 EDT Tel [phone], Service support [phone], CC: Sarah vasquez MD; Bubba Romero Driver Utility Worker: Signed 19-Mar-2016 Inital Evaluation (1) - PT Result: Comments: See Note; NOTES: [facility] Physical Therapy [facility] [address] [place] [address]. [address] [place], [place] [address] Fax REHABILITATION SERVICES INITIA L EVALUATION MR#: [id number] Acct: [id number] Name: JOSE J COBIAN Rep #: [id number] : 1955 61 From: Mac Smith Referring [...] to be FAXED BACK to us at [phone] for Medicare purposes. Please let me know [...] CAD Result: Comments: See Note; NOTES: [facility] Imaging Services [address] [place] [address] Verdana 4d Bilat Scrn Digital AND CAD MR#: [id number] Acct: [id number] Name: JOSE J COBIAN Rep #: [id number] : 1955 F 61 From: Bartolome Patel MD PCP: Sarah Pizano MD Status: REG CLI Study: Bilat Scrn Digital AND CAD Date of Exam: 03/16/16 Exam# [id number] Ordering Dr: Sarah Pizano MD MAMMOGRAPHY - [...] delay biopsy of a clinically suspicious abnormality. [id number] Electronically Signed: Bartolome Patel MD at 15:06 EDT Tel [phone], Service supp ort [phone], CC: Sarah Pizano MD Driver Utility Worker: Signed 16-Mar-2016 Dexa Bone Density Study (HP) Result: Comments: See Note; NOTES: [facility] Imaging Services [address] [place] [address] Verdana 4d Dexa Bone Density Study (HP) MR#: [id number] Acct: [id number] Name: MAURI COBIAN ZACK Walker Rep #: [id number] : 1955 F 61 From: Bartolome Patel MD PCP: Sarah Pizano MD Status: REG CLI Study: Dexa Bone Density Study (HP) Date of Exam: 03/16/16 Exam# [id number] Ordering Dr: Sarah Deng MD STUDY: DUAL [...] Bartolome Patel MD at 14:15 EDT Tel [phone], Service support [phone], CC: Sarah Pizano MD Driver Utility Worker: Signed 22-Feb-2016 History and Physical Exam Result: Comments: See Note; NOTES: [facility] Medical Records Department [address] [place] [address] History and Physical 02/22/162054 MR#: [id number] Acct: [id number] Name: JOSE J COBIAN Rep #: [id number] : 1955 60 From: An Dent DO [...] in the emergency room at 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 Lives: Spouse/ Significant Other Smoking [...] 44.6 L Lymph % (Auto) 46.1 H [place] % (Auto) 6.9 Eos % (Auto) 2.0 [...] albuterol inhaler as needed #5 anxiety 02/22/16 1140 <Electronically signed by An Dent DO> Date An schmidt DO Cosigner Signature (if applicable): Date CC: Sarah Pizano MD; An Dent DO Signed 22-Feb-2016 Chest 1 View (Portable) Result: Comments: See Note; NOTES: [facility] Imaging Services [address] [place] [address] Verdana 4d Chest 1 View (Portable) MR#: [id number] Acct: [id number] Name: JOSE J COBIAN Rep #: [id number] : 1955 F 60 From: Kim Dsouza MD PCP: Sarah Pizano MD Status: REG ER Study: Chest 1 View (Portable) Date of Exam: 02/22/16 Exam# [id number] Ordering Dr: Mac Chi MD STUDY: X-RAY [...] MD at 19:35 EDT , Service support [phone], CC: Sarah Pizano MD; Mac Chi MD Driver Utility Worker: Signed 16-Feb-2016 Thoracic Spine 3 Views Result: Comments: See Note; NOTES: [facility] Imaging Services [address] [place] [address] Verdana 4d Thoracic Spine 3 Views MR#: [id number] Acct: [id number] Name: JOSE J COBIAN Yamilka ep #: [id number] : 1955 F 60 From: Kirk Wall MD PCP: Sarah Pizano MD Status: REG CLI Study: Thoracic Spine 3 Views Date of Exam: 02/16/16 Exam# [id number] Ordering Dr: Sarah Pizano MD UDY: X-RAY [...] at 21:50 EDT , S maurilioe support [phone], CC: Sarah Pizano MD Driver Utility Worker: Signed 03-Nov-2015 Operative Report Result: Comments: See Note; NOTES: [facility] Medical Records Department [address] [place] [address] Operative Report MR#: [id number] Acct: [id number] Name: JOSE J COBIAN Rep #: [id number] : 1955 60 From: Bubba Romero MD PCP: Sarah Pizano MD Status: [facility] DATE OF SERVICE: 10/20/2015 DATE OF PROCEDURE: [...] indicated. Lidia Romero MD T: NTS JOB: [id number] 11/03/15 7198 <Electronically signed by Bbuba Romero MD> Date Bubba Romero MD Co signer Signature (If Indicated): Date CC: Sarah Pizano MD; Bubba Romero Date Dictated: 10/20/15 1351 Date Transcribed: 10/20/15 135 Driver Utility Worker: Signed 20-Oct-2015 Cerv Spine 2 or 3 Views Result: Comments: See Note; NOTES: [facility] Imaging Services [address] [place] [address] Verdana 4d Cerv Spine 2 or 3 Views MR#: [id number] Acct: [id number] Name: JOSE J NOWAK Rep #: [id number] : 1955 F 60 From: Bartolome Patel MD PCP: Sarah Pizano MD Status: [facility] Study: Cerv Spine 2 or 3 Views Date of Exam: 10/20/15 Exam# [id number] Ordering Dr: Bubba Romero MD STUDY: X-RAY [...] Bartolome Patel MD at 13:45 EDT Tel [phone], Service support [phone], RAD/Cerv Spine 2 or 3 Views IMPRESSION: Fluoroscopic services provided for right 4 through C7 facet block. Electronically Signed: Bartolome Patel MD at 13:45 EDT Tel [phone], Service support [phone], CC: Sarah Pizano MD; Bubba Romero Driver Utility Worker: Signed 18-Aug-2015 Operative Report Result: Comments: See Note; NOTES: [facility] Medical Records Department [address] [place] [address] Operative Report MR#: [id number] Acct: [id number] Name: JOSE J COBIAN Rep #: [id number] : 1955 60 From: Bubba Romero MD PCP: Sarah Pizano MD Status: [facility] DATE OF SERVICE: 08/04/2015 DATE OF SERVICE: [...] d. Bubba Romero MD T: NTS JOB: [id number] 08/18/15 0927 <Electronically signed by Bubba Romero MD> Date Bubba copeland MD Cosigner Signature (If Indicated): Date CC: Sarah Pizano MD; Bubba Romero Date Dictated: 08/04/151432 Date Transcribed: 08/04/151432 Driver Utility Worker: Signed 04-Aug-2015 Cerv Spine 2 or 3 Views Result: Comments: See Note; NOTES: [facility] Imaging Services [address] [place] [address] Verdana 4d Cerv Spine 2 or 3 Views MR#: [id number] Acct: [id number] Name: JOSE J NOWAK Rep #: [id number] : 1955 F 60 From: Kirk Wall MD PCP: Sarah Pizano MD Status: [facility] Study: Cerv Spine 2 or 3 Views Date of Exam: 08/04/15 Exam# [id number] Ordering Dr: Osiel Romero MD STUDY: X-RAY [...] MD at 16:28 EST , Service support [phone], RAD/Cerv Spine 2 or 3 Views IMPRESSION: Needle positions as above. Electronically Signed: Kirk Wall MD at 16:28 EST , Service support [phone], CC: Sarah Pizano MD; Bubba Romero Driver Utility Worker: Signed 02-Jul-2015 Hip min 2 Views Result: Comments: See Note; NOTES: [facility] Imaging Services [address] [place] [address] Verdana 4d Hip min 2 Views MR#: [id number] Acct: [id number] Name: VIRAJ COBIAN Rep #: [id number] : 1955 F 60 From: Tuan Boyd MD PCP: Sarah Pizano MD Status: REG CLI Study: Hip min 2 Views Date of Exam: 07/02/15 Exam# [id number] Ordering Dr: Sarah Pizano MD S TUDY: [...] at 12:42 EST Tel , Service support [phone], Fax RAD/Hip min 2 Views IMPRESSION: Normal x-ray examination of the hip. Electronically Signed: Lucius Boyd MD at 12:42 EST Tel , Servic e support [phone], CC: Sarah Pizano MD Driver Utility Worker: Signed 24-Jun-2015 Pelvis 1 or 2 Views Result: Comments: See Note; NOTES: [facility] Imaging Services [address] [place] [address] Verdana 4d Pelvis 1 or 2 Views MR#: [id number] Acct: [id number] Name: JOSE J COBIAN Rep #: [id number] : 1955 F 60 From: Prosper Dumont MD PCP: Sarah Pizano MD Status: REG CLI Study: Pelvis 1 or 2 Views Date of Exam: 06/24/15 Exam# [id number] Ordering Dr: Tuan Pizano MD STUDY: X-RAY [...] at 11:20 EST Tel , Service support [phone], RAD/Pelvis 1 or 2 Views IMPRESS ION: There is narrowing with cortical sclerosis and osteophyte formation of the sacroiliac joint consistent with degenerative osteoarthritic changes. Electronically Signed: Lavell Dumont MD 08/26 at 11:20 EST Tel , Service support [phone], CC: Sarah Pizano MD Driver Utility Worker: Signed 07-Feb-2015 Chest PA and Lateral Result: Comments: See Note; NOTES: [facility] Imaging Services [address] [place] [address] Radiology Report MR#: [id number] Acct: [id number] Name: JOSE J COBIAN Rep #: [id number] : 1955 F 59 From: Baldemar Torres DO PCP: Sarah Pizano MD Status: REG CLI Study: Chest PA and Lateral Date of Exam: 02/07/15 Exam# [id number] Ordering Dr: Pamella Saavedra STUDY: X-RAY CHES [...] Baldemar Torres DO at 19:14 EDT Tel [phone], Service support [phone], RAD/Chest PA and Lateral IMPRESSION: No acute cardiopulmonary disease or interval change. Electronically Signed: Baldemar Torres DO at 19: 14 EDT Tel [phone], Service support [phone], CC: Pamella Saavedra; Sarah Pizano MD Driver Utility Worker: Signed 05-Feb-2014 [employer] Result: Comments: See Note; NOTES: [facility] Imaging Services [address] [place] [address] Breast Imaging Report MR#: [id number] Acct: [id number] Name: JOSE J COBIAN Rep #: [id number] : 1955 F 58 From: Bartolome Patel MD PCP: Sarah Pizano MD Status: REG CLI Exam# [id number] Ordering Dr: Sarah Pizano MD MAMMOGRAPHY - [...] Bartolome Patel MD at 13:16 EDT Tel [phone], Service support [phone], CC: Sarah Pizano MD Driver Utility Worker: Signed 06-Jun-2013 Abdomen/Pelvis with Contrast Result: Comments: See Note; NOTES: [facility] Imaging Services [address] [place] [address] CAT Scan Report MR#: [id number] Acct: [id number] Name: JOSE J COBIAN Rep #: [id number] : 1955 F 58 From: Tuan Atkins MD PCP: Sarah Pizano MD Status: REG CLI Study: Abdomen/Pelvis with Contrast Date of Exam: 06/06/13 Exam# [id number] Ordering Dr: Sarah Pizano MD STUD Y: [...] M.D. at 0:12 EST , Service support [phone], CC: Sarah Pizano MD Driver Utility Worker: Signed Immunization Name Dates Details Influenza (3 [...] Active Living Situation Comments: Lives with spouse. 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 LaboratoryPoint of [address] [place], [place] [id number] INR ISTAT 1.10 (Normal) Comments: Critical Value > 3.5 PROTIME ISTAT 13.7 {SEC} (Normal) Range: 11.9-14.4 Comments: Reference Range 11.9 - 14.4 :23 Amylase 89 U/L (Normal) Comments: PATIENT NOT FASTINGPERFORMED BY: [facility] [id number] Range: 31-124 :23 CBC With Differential/Platelet Comments: PATIENT NOT FASTINGPERFORMED BY: [facility]6370 [facility] [id number] Immature Grans (Abs) 0.0 {x10E3/uL} (Normal) Range: [...] 3.77-5.28 WBC 4.2 {x10E3/uL} (Normal) Range: 3.4-10.8 48-Ktv-908510:23 Comp. Metabolic Panel (14) Comments: PATIENT NOT FASTINGPERFORMED BY: [facility] HospitalHjyeft9127 [facility] [id number] ALT (SGPT) 18 [iU]/L (Normal) Range: 0-32 [...] U/L (Abnormal) Comments: PATIENT NOT FASTINGPERFORMED BY: [facility]Nor-[facility] HospitalRvyxmj8687 [facility] [id number] 4:23 Range: 14-72 03-Gxx-235282:23 Urinalysis, Routine Comments: PATIENT NOT FASTINGPERFORMED BY: Lavante Fedusw9688 [facility] [id number] Microscopic Examination MICNIP (Normal) Comments: Microscopic not indicated and not performed. Nitrite, Urine Negative (Normal) Urobilinogen,Semi-Qn 1.0 mg/dL (Normal) Range: 0.2-1.0 Bilirubin Negative (Normal) Occult Blood Negative (Normal) Ketones Negative (Normal) Glucose Negative (Normal) Protein Negative (Normal) WBC Esterase Negative (Normal) Appearance Clear (Normal) Urine-Color Yellow (Normal) pH 6.0 (Normal) Range: 5.0-7.5 Specific Adrian 1.020 (Normal) Range: 1.005-1.030 :42 Protime w/INR Fingerstick Comments: [facility] LaboratoryPoint of [address] [place], [place] [address] INR ISTAT 1.00 (Normal) Comments: Critical Value > 3.5 PROTIME ISTAT 12.4 {SEC} (Normal) Range: 11.9-14.4 Comments: Reference Range 11.9 - 14.4 94-Jpx-140213:14 CBC W/Diff, Automated Comments: [facility] [address] [place], [place], [address] ; fu 6-19 Absolute Lymph 1.62 {X10_3/ul} [...] 4.2-5.4 WBC 4.7 K/mm3 (Normal) Range: 4.4-11.0 33-Xbp-488693:14 Comprehensive Metabolic Profil Comments: [facility] [address] [place], [address] GAP 5 (Normal) Range: 5-15 CO2 29.0 [...] criteria.Please note revised GLUCOSE reference range /02/2018. 78-Ahv-626512:14 Ferritin Comments: [facility] [address] [place], [address] FERRITIN 82 ng/mL (Normal) Range: 8-252 09-Hwm-008231:14 Vitamin B12 558 pg/mL (Normal) Comments: [facility] [address] [place], [address] Range: 211-911 :07 Protime w/INR Fingerstick Comments: [facility] LaboratoryPoint [place] [address] [place] [address] INR ISTAT 1.30 (Normal) Comments: Critical Value > 3.5 PROTIME ISTAT 14.9 {SEC} (Abnormal) Range: 11.9-14.4 Comments: Reference Range 11.9 - 14.4 08-Aug-20179:10 Protime w/INR Fingerstick Comments: [facility] LaboratoryPoint [address] [place] [address] INR ISTAT 1.10 (Normal) Comments: Critical Value > 3.5 PROTIME ISTAT 13.0 {SEC} (Normal) Range: 11.9-14.4 Comments: Reference Range 11.9 - 14.4 23-Eia-807007:32 Culture, Blood (WB) Comments: [facility] [address] [place], [address] CUB See Note (Normal) Comments: Has pt arrived? Y Comments: DR. Mello growth in 5 days. 48-Qqh-158094:25 CBC W/Diff, Automated Comments: Comments: DR Cui [facility] [address] [place], [address] Absolute Lymph 1.68 {X10_3/ul} (Normal) Range: 0.83-4.51 [...] 4.2-5.4 WBC 3.9 K/mm3 (Abnormal) Range: 4.4-11.0 38-Zni-031789:25 Culture, Blood (WB) Comments: [facility] [address] [place], [address] CUB See Note (Normal) Comments: Has pt arrived? Y Comments: DR. Mello growth in 5 days. 48-Wkl-591750:25 Erythrocyte Sed Rate Comments: Comments: [facility] [address] [place], [address] SED RATE 8 mm/h (Normal) Range: 0-30 63-Zro-225225:25 Ferritin Comments: Comments: [facility] [address] [place], [address] FERRITIN 83 ng/mL (Normal) Range: 8-252 84-Uib-404177:25 Vitamin D,25 Hydroxy Comments: Order Date: 07/20/17[facility] Ntecednmjd3684[place]ANY [place]én[place], [address] Vitamin D 25-OH 34.6 ng/mL (Normal) Comments: Vitamin D 25(OH) Status Range Deficiency <20 ng/mL (50nmol/L) Insuffciency 20 - 30 ng/mL (50 - 75 nmol/L) Sufficiency 30 - 100 ng/mL (75 - 250 nmol/L) Toxicity >100 ng/mL (>250 nmol/L) 94-Fbt-141545:10 Culture, Urine Comments: [facility] Xcsrgzrocy6739BR[place]ANY [place]én[place], [id number] CUUR See Note (Normal) Comments: Order Date: 07/20/17 Comments: DR PIZANO Urine CultureCulture exhibits no growth. 57-Upn-244354:10 Urinalysis, Complete Comments: Order Date: 07/20/17Has pt arrived? YComments: DR Morales was Urine Obtained? CLEAN [facility] Rrmxdeoegu[address], [id number] MUCUS, URINE 0 SEEN {/hpf} (Normal) BACTERIA [...] (Normal) CLARITY Clear (Normal) COLOR Yellow (Normal) 6-Ciw-696159:48 Protime w/INR Fingerstick Comments: [place] [address] [place] [address] INR ISTAT 1.10 (Normal) Comments: Critical Value > 3.5 PROTIME ISTAT 13.2 {SEC} (Normal) Range: 11.9-14.4 Comments: Reference Range 11.9 - 14.4 :30 Protime w/INR Fingerstick Comments: [place] [address] [place] [address] INR ISTAT 1.10 (Normal) Comments: Critical Value > 3.5 PROTIME ISTAT 12.8 {SEC} (Normal) Range: 11.9-14.4 Comments: Reference Range 11.9 - 14.4 :44 INR Fingerstick Comments: [place] [address] [place] [address] INR ISTAT 1.10 (Normal) Comments: Critical Value > 3.5 :44 Prothrombin Time Fingerstick Comments: [place] [address] [place] [address] PROTIME ISTAT 13.6 {SEC} (Normal) Range: 11.9-14.4 Comments: Reference Range 11.9 - 14.4 73-Trk-586838:17 HgA1C , Office (32998) HgA1C , Office 5.7 % (Normal) Range: 4.6 - 7.1 :08 Metabolic Panel, Basic Comments: PATIENT NOT FASTINGPERFORMED BY: LabCoMatheny Medical and Educational CenterSkknjb4050 [facility] [id number] (27124) Calcium, Serum 9.1 mg/dL (Normal) Range: 8.7-10.3 [...] Glucose, Serum 97 mg/dL (Normal) Range: 65-99 73-Zdd-751027:08 CBC (Auto) (83007) Comments: PATIENT NOT FASTINGPERFORMED BY: [place]anteMig[place] [address] [facility] [id number] Platelets 306 {x10E3/uL} (Normal) Range: 150-379 RDW 15.6 % (Abnormal) Range: 12.3-15.4 MCHC 32.9 g/dL (Normal) Range: 31.5-35.7 MCH 28.3 pg (Normal) Range: 26.6-33.0 MCV 86 fL (Normal) Range: 79-97 Hematocrit 35.9 % (Normal) Range: 34.0-46.6 Hemoglobin 11.8 g/dL (Normal) Range: 11.1-15.9 RBC 4.17 {x10E6/uL} (Normal) Range: 3.77-5.28 WBC 4.6 {x10E3/uL} (Normal) Range: 3.4-10.8 :08 URINALYSIS W/O MICRO (07990) Comments: PATIENT NOT FASTINGPERFORMED BY: [facility]CoMat[facility] Educational CenterUyprir2836 [facility] [id number] Microscopic Examination MICNIP (Normal) Comments: Microscopic not indicated and not performed. Nitrite, Urine Negative (Normal) Urobilinogen,Semi-Qn 0.2 mg/dL (Normal) Range: 0.2-1.0 Bilirubin Negative (Normal) Occult Blood Negative (Normal) Ketones Negative (Normal) Glucose Negative (Normal) Protein Negative (Normal) WBC Esterase Negative (Normal) Appearance Clear (Normal) Urine-Color Yellow (Normal) pH 6.0 (Normal) Range: 5.0-7.5 Specific Adrian 1.013 (Normal) Range: 1.005-1.030 28-Hep-360005:08 COMPLEMENT C4 (44040) Comments: PATIENT NOT FASTINGPERFORMED BY: [facility]6370 [facility] [id number] Complement C4, Serum 16 mg/dL (Normal) Range: 14-44 97-Hzs-230789:08 COMPLEMENT C3 (19117) Comments: PATIENT NOT FASTINGPERFORMED BY: [facility]6370 [facility] [id number] Complement C3, Serum 103 mg/dL (Normal) Range: 82-167 69-Cfe-487902:08 DNA ANTIBODY-NATV/DBL ST (01470) Comments: PATIENT NOT FASTINGPERFORMED BY: [place] [address] [facility] [id number] test code 073820 Anti-DNA (DS) Ab Qn <1 {IU/mL} (Normal) Range: 0-9 Comments: Negative <5 Equivocal 5 - 9 Positive >9 40-Dbh-326706:08 Sed Rate Erythrocyte (07525) Comments: PATIENT NOT FASTINGPERFORMED BY: [facility]6370 [facility] [id number] Sedimentation Rate-Westergren 4 mm/h (Normal) Range: 0-40 00-Lps-143208:08 DESIRAE (ANTINUCLEAR ANTIBODY) Comments: PATIENT NOT FASTINGPERFORMED BY: [facility]6370 [facility] [id number] (75490) DESIRAE Direct Negative (Normal) 2-Pcv-578648:04 Prothrombin Time w/INR Comments: [facility] [address] [place], [place], [address] INR 1.5 (Normal) PROTIME 17.8 s (Abnormal) Range: 11.7-14.9 04-Utv-830217:45 Prothrombin Time w/INR Comments: [facility] [address] [place], [place], [address](320) INR 3.0 (Normal) PROTIME 30.3 s (Abnormal) Range: 11.7-14.9 09-Oct-20168:51 Serum Creatinine AND GFR Comments: [facility] [address] [place], [address] EST GFR - AA 90 mL/min (Normal) Comments: GFR Calc EST GFR 74 mL/min (Normal) Comments: Non- GFR Calc CREAT,SERUM 0.83 mg/dL (Normal) Range: 0.55-1.02 Comments: The validity of the calculated GFR AND GFRAA in patients over70 years has not been determined. Clinical correlation isessential. :21 LIPASE (15063) Comments: PATIENT NOT FASTINGPERFORMED BY: CB [facility] Nxlzbd0530 [address] RoadDublin [place] [id number] Lipase, Serum 46 U/L (Normal) Range: 14-72 Comments: Please note reference interval change :21 AMYLASE (87613) Comments: PATIENT NOT FASTINGPERFORMED BY: CB [facility] Xtjuii23[address] RoadDublin [place] [id number] Amylase, Serum 65 U/L (Normal) Range: 31-124 :21 CALCIFIDIOL (87007) VIT D 25 Comments: PATIENT NOT FASTINGPERFORMED BY: CB [facility] Gmczet3409 [address]ila RoadDublin [place] [id number] Vitamin D, 25-Hydroxy 25.8 ng/mL (Abnormal) Range: 30.0-100.0 Comments: Vitamin D deficiency has been defined by the Turner ofMedicine and an Endocrine Society practice guideline as alevel of serum 25-OH vitamin D less than 20 ng/mL (1,2).The Endocrine Society went on to further define vitamin Dinsufficiency as a level between 21 and 29 ng/mL (2).1. IOM (Turner of Medicine). 2010. Dietary reference intakes for calcium and D. Lal [place]: The National Academies Press.2. Candelaria MF, Janey NC, Rahul-Everett GROSS, et al. Evaluation, treatment, and prevention of vitamin D deficiency: an Endocrine Society clinical practice guideline. JCEM. 2010; 96(7):1911-30. :21 Ferritin (96360) Comments: PATIENT NOT FASTINGPERFORMED BY: CB [facility] Tcwueh3175 [address] RoadDublin [place] [id number]; fu 10-27 db Ferritin, Serum 10 ng/mL (Abnormal) Range: 15-150 8-Ukb-635847:21 Vitamin B-12 (cyanocobalamin) Comments: PATIENT NOT FASTINGPERFORMED BY: [facility]6370 [facility] [id number] (33989) Vitamin B12 1888 pg/mL (Abnormal) Range: 211-946 5-Qat-085269:21 METABOLIC PANEL, COMPREHENSIVE Comments: PATIENT NOT FASTINGPERFORMED BY: [facility]6370 [facility] [id number] (39088) ALT (SGPT) 11 [iU]/L (Normal) Range: 0-32 [...] Glucose, Serum 101 mg/dL (Abnormal) Range: 65-99 4-Ngy-968730:21 CBC with auto diff Comments: PATIENT NOT FASTINGPERFORMED BY: [facility]6370 [facility]ilaS[facility] [id number] Information: CLIENT DRAW (82277) Immature Grans (Abs) 0.0 {x10E3/uL} (Normal) Range: [...] 3.77-5.28 WBC 5.7 {x10E3/uL} (Normal) Range: 3.4-10.8 63-Zop-746672:14 Prothrombin Time w/INR Comments: [facility] [address] [place], [place], [address] INR 1.9 (Normal) Comments: ADDENDA: handled by cardio PROTIME 21.0 s (Abnormal) Range: 11.7-14.9 16-Qkl-536751:57 HEPATIC FUNCTION PANEL Comments: PATIENT NOT FASTINGPERFORMED BY: [facility]6370 [facility] [id number] (76532) ALT (SGPT) 15 [iU]/L (Normal) Range: 0-32 AST (SGOT) 20 [iU]/L (Normal) Range: 0-40 Alkaline Phosphatase, S 114 [iU]/L (Normal) Range: 39-117 Bilirubin, Direct 0.10 mg/dL (Normal) Range: 0.00-0.40 Comments: Please note reference interval change Bilirubin, Total <0.2 mg/dL (Normal) Range: 0.0-1.2 Albumin, Serum 4.9 g/dL (Abnormal) Range: 3.6-4.8 Protein, Total, Serum 7.1 g/dL (Normal) Range: 6.0-8.5 :57 IGA/IGD/IGG/IGM-EACH (56657) Comments: PATIENT NOT FASTINGPERFORMED BY: [facility]6370 [facility] [id number] Immunoglobulin E, Total 50 {IU/mL} (Normal) Range: 0-100 Immunoglobulin M, Qn, Serum 43 mg/dL (Normal) Range: 26-217 Immunoglobulin A, Qn, Serum 131 mg/dL (Normal) Range: 87-352 Immunoglobulin G, Qn, Serum 753 mg/dL (Normal) Range: 700-1600 :57 EBV ACUTE PFOF IgG/IgM Comments: PATIENT NOT FASTINGPERFORMED BY: [facility]6370 [facility] [id number] 223589 (09567) Interpretation: [facility] (Normal) Comments: EBV Interpretation Chart . Interpretation [...] <36.0 Equivocal 36.0 - 43.9 Positive >43.9 70-Fyz-325674:57 LDH (LD) (LACTATE DEHYDROGENASE) Comments: PATIENT NOT FASTINGPERFORMED BY: [address] [id number] (496[address]) LDH 191 [iU]/L (Normal) Range: 119-226 :57 HIV-1 & 2 ANTBDY-SNGL SHAWN Comments: PATIENT NOT FASTINGPERFORMED BY: [address] [id number] (16767) HIV Screen 4th Generation wRfx Non Reactive (Normal) :57 HEPATITIS PANEL (52288) Comments: PATIENT NOT FASTINGPERFORMED BY: [place] [address] [facility] [id number] Hep C Virus Ab 0.1 {s/co_ratio} (Normal) Range: 0.0-0.9 Comments: Negative: < 0.8 Indeterminate: 0.8 - 0.9 Positive: > 0.9 . The CDC recommends that a positive HCV antibody result be followed up with a HCV Nucleic Acid Amplification test (429329). Hep B Core Ab, IgM Negative (Normal) HBsAg Screen Negative (Normal) Hep A Ab, IgM Negative (Normal) :56 Culture, Blood (WB) Comments: [facility] [address] [place], [place], [address] CUB See Note (Normal) Comments: BCNo growth [...] Antibody Present - Antibody Ab sentPerformed at: [address] [id number] Director: Neo Campos PhD, Phone: [phone] EB-NAg DaD58860 136.0 U/mL (Abnormal) Range: 0.0-17.9 Comments: Negative <18.0 Equivocal 18.0 - 21.9 Positive >21.9 EB-VCA EhM50571 255.0 U/mL (Abnormal) Range: 0.0-17.9 Comments: Negative <18.0 Equivocal 18.0 - 21.9 Positive >21.9 EB-EA IgG 33470 18.4 U/mL (Abnormal) Range: 0.0-8.9 Comments: Hepatitis A, Hepatitis C and HIV antibodies may cross-reactwith this assay. Negative < 9.0 Equivocal 9.0 - 10.9 Positive >10.9 EB-VCA TcA99905 36.1 U/mL (Abnormal) Range: 0.0-35.9 Comments: A second sample should be collected and tested no less than2-4 weeks. Negative <36.0 Equivocal 36.0 - 43.9 Positive >43.9 3-Sof-021414:56 Ferritin Comments: [facility] Ptzaahpuxv[address] [place] [address], [id number] FERRITIN 34 ng/mL (Normal) Range: 8-252 7-Hfg-371390:56 Vitamin D,25 Hydroxy Comments: [facility] [address] [place], [address] Vitamin D 25-OH 29.2 ng/mL (Normal) Comments: Vitamin D 25(OH) Status Range Deficiency <20 ng/mL (50nmol/L) Insuffciency 20 - 30 ng/mL (50 - 75 nmol/L) Sufficiency 30 - 100 ng/mL (75 - 250 nmol/L) Toxicity >100 ng/mL (>250 nmol/L) 5-Djc-989266:03 INR Fingerstick Comments: [place] [address] [place] [address] INR ISTAT 1.00 (Normal) Comments: Critical Value > 3.5 1-Fcw-858217:03 Prothrombin Time Fingerstick Comments: [place] [address] [place] [address] PROTIME ISTAT 12.1 {SEC} (Normal) Range: 11.9-14.4 Comments: Reference Range 11.9 - 14.4 04-Bej-932675:55 Prothrombin Time w/INR Comments: [place] [address] [place], [address] INR 2.6 (Normal) PROTIME 26.7 s (Abnormal) Range: 11.7-14.9 :44 GRETTA CULTURE-OTHER (19180) Comments: PATIENT NOT FASTINGPERFORMED BY: [facility]St[facility] [id number] Information: THROAT SRC:TH Result 1 RRF (Normal) Comments: Routine respiratory rajwinder Upper Respiratory Culture Final report (Normal) 68-Kvp-048906:31 Rapid Flu (70747 x 2) Influenza A Ag negative (Normal) 95-Ktx-538940:31 Rapid Strep Test, Office (02086) Rapid Strep Test, Office Negative (Normal) 21-Umr-727059:46 Microscopic Examination Comments: PATIENT NOT FASTINGPERFORMED BY: MusicIP6370 MEDArchonSt. Luke[facility] Hospital [id number] Bacteria Few (Normal) Mucus Threads Present (Normal) Crystal Type Calcium Oxalate (Normal) Crystals Present (Abnormal) Epithelial Cells (non renal) 0-10 {/hpf} (Normal) Range: 0 - 10 RBC 0-2 {/hpf} (Normal) Range: 0 - 2 WBC 0-5 {/hpf} (Normal) Range: 0 - 5 27-Ifc-863412:46 URINALYSIS (75457) Comments: PATIENT NOT FASTINGPERFORMED BY: [facility]6[address] [facility] [id number] Microscopic Examination See below: (Normal) Comments: Microscopic was indicated and was performed. Nitrite, Urine Negative (Normal) Urobilinogen,Semi-Qn 1.0 mg/dL (Normal) Range: 0.2-1.0 Bilirubin Negative (Normal) Occult Blood Negative (Normal) Ketones Negative (Normal) Glucose Negative (Normal) Protein Negative (Normal) WBC Esterase 1+ (Abnormal) Appearance Clear (Normal) Urine-Color Yellow (Normal) pH 6.0 (Normal) Range: 5.0-7.5 Specific Adrian 1.018 (Normal) Range: 1.005-1.030 :46 CBC WITH MANUAL DIFF (46131) Comments: PATIENT NOT FASTINGPERFORMED BY: [facility]anteMatheny Medical and Educational CenterAodfrx3823 [facility] [id number] Immature Grans (Abs) 0.0 {x10E3/uL} (Normal) Range: [...] 3.77-5.28 WBC 4.5 {x10E3/uL} (Normal) Range: 3.4-10.8 57-Acm-844139:46 Ferritin (53792) Comments: PATIENT NOT FASTINGPERFORMED BY: [facility]6[address] [facility] [id number] Ferritin, Serum 10 ng/mL (Abnormal) Range: 15-150 30-Fhw-390722:46 Metabolic Panel, Comprehensive Comments: PATIENT NOT FASTINGPERFORMED BY: [facility]6370 [facility] [id number] (05329) ALT (SGPT) 18 [iU]/L (Normal) Range: 0-32 [...] Glucose, Serum 86 mg/dL (Normal) Range: 65-99 12-Mph-014720:46 AMYLASE (84785) Comments: PATIENT NOT FASTINGPERFORMED BY: [facility]CoMat[facility] Medical [facility] Educational CenterEqgoyh1131 [facility] [id number] Amylase, Serum 81 U/L (Normal) Range: 31-124 24-Eol-887474:46 LIPASE (44835) Comments: PATIENT NOT FASTINGPERFORMED BY: [facility] Qmenlq7270 [facility] [id number] Lipase, Serum 79 U/L (Abnormal) Range: 0-59 41-Nsa-628442:33 Prothrombin Time w/INR Comments: Order Date: 03/23/16Order Date: 03/23/16Interface Comments: Reason:Order Date: [facility]23/[address] [address] [facility] [address] [place], [place], [address] INR 2.0 (Normal) PROTIME 22.3 s (Abnormal) Range: 11.7-14.9 :36 Prothrombin Time w/INR Comments: [facility] [address] [place], [place], [address] INR 1.4 (Normal) PROTIME 17.1 s (Abnormal) Range: 11.7-14.9 77-Dcj-904352:20 Prothrombin Time w/INR Comments: Order Date: 05/11/16Order Info: 6301-6 - *PT/INR - Standing OrderComments: Standing Order-Reason:Order Date: 05/11/16Order Info: 6301-6 - *PT/INR - Standing OrderComments: Standing Order- Reason:[facility] [address] [place], [place], [address] INR 1.2 (Normal) PROTIME 14.8 s (Normal) Range: 11.7-14.9 :50 Prothrombin Time w/INR Comments: Order Date: 05/11/16Order Info: 6301-6 - *PT/INR - Standing OrderComments: Standing Order-Reason:Order Date: 05/11/16Order Info: 6301-6 - *PT/INR - Standing OrderComments: Standing Order-Reason:Order Da te: 05/11/16Order Info: 6301-6 - *PT/INR - Standing OrderComments: Standing Order-Reason:[facility] [address] [place], [address] INR 1.2 (Normal) PROTIME 15.1 s (Abnormal) Range: 11.7-14.9 :00 Culture, Nose Comments: [facility] [address] [place], [address] CUN See Note (Normal) Comments: Comments: NARESGram StainGram Stain Rare White Blood Cells 1+ Epithelial cells 4+ Gram positive rods Nasoph. CultNo Haemophilus, Streptococcus pneumoniae, beta-hemolytic Streptococcus or Staphylococcus aureus isolated. :00 Culture, Throat Comments: [facility] [address] [place], [address] CUT See Note (Normal) Comments: Comments: NARESCulture, ThroatNo Haemophilus, Streptococcus pneumoniae, beta-hemolytic Streptococcus or Staphylococcus aureus isolated. 84-Gdy-435955:05 Rapid Flu (66753 x 2) Influenza A Ag neg (Normal) :45 CBC W/Diff, Automated Comments: Order Date: 03/18/16Order Date: 03/18/[address] [facility] [address] [place], [address] Absolute Lymph 2.95 {X10_3/ul} (Normal) Range: 0.83-4.51 [...] Specimen #1, #2 or #3? 1[facility] [address] [place] [address], [id number] CKRI 3.2 % (Abnormal) Range: 0.0-1.4 Comments: RELATIVE INDEX >1.5% IS PRESUMPTIVELY POSITIVE CPKMB 1.8 ng/mL (Normal) Range: 0.0-5.0 Comments: CK-MB and RI Interpretation MB Relative Index Non-AMI <or= 5 NA Indeterminate > 5 <or= 4 AMI > 5 > 4 CPK TOTAL 57 U/L (Normal) Range: 26-192 :45 Erythrocyte Sed Rate Comments: Order Date: 03/18/16Order Date: 03/18/16[facility] [address] [place], [place] [address], [address] SED RATE 1 mm/h (Normal) Range: 0-30 :45 Myoglobin, Serum Comments: Order Date: 03/18/16[facility] (refer to report for specific site)refer to report for address and phone number Myoglobin, Ser 23 ng/mL (Abnormal) Range: 25-58 Comments: Performed at: - [facility] [address] [id number] Director: Neo Campos PhD, Phone: [phone] 12-Nam-490792:45 Troponin-I Comments: Order Date: 03/18/16TROP ADDED 03/19/16Order Date: 03/18/16'TROP' Serial specimen #1, #2, #3, or #4: 1'CKMB' Serial Specimen #1, #2 or #3? [address] [place] [address] Gondretnsr2190 [facility] [place], [address] TROPONIN-I < 0.02 ng/mL (Normal) Comments: TROPONIN-I EXPECTED VALUES <0.05 NEGATIVE 0.06 - 0.59 AT RISK OF GA > OR = 0.60 SUGGEST GA 37-Myt-485704:00 Basic Metabolic Profile (BMP) Comments: 'TROP' Serial specimen #1, #2, #3, or #4: [address] [place] [address] [address] [place], [place], [address] GAP 6 (Normal) Range: 5-15 CO2 26.0 [...] 7-18 GLU 101 mg/dL (Normal) Range: 70-110 27-Qpp-532195:00 CBC W/Diff, Automated Comments: [facility] Qfgficaqmq05[address] [place], [place], [address] Absolute Lymph 2.27 {X10_3/ul} (Normal) Range: 0.83-4.51 [...] 4.2-5.4 WBC 4.9 K/mm3 (Normal) Range: 4.4-11.0 64-Ejf-786658:00 Lipase Comments: 'TROP' Serial specimen #1, #2, #3, or #4: [facility] [address]sv[address] [place], [address] LIPASE 351 U/L (Normal) Range: 73-393 51-Yol-159973:00 Liver Profile Comments: 'TROP' Serial specimen #1, #2, #3, or #4: [address] [place] [address] Vjdnsrfkjo7543Kyle [place], [address] D BILI 0.15 mg/dL (Normal) Range: 0.00-0.30 T BILI 0.30 mg/dL (Normal) Range: 0.20-1.00 ALT 23 U/L (Normal) Range: 12-78 ALK P 81 U/L (Normal) Range: 50-136 AST 24 U/L (Normal) Range: 15-37 GLOB 2.8 g/dL (Normal) Range: 2.3-3.5 ALB 4.0 g/dL (Normal) Range: 3.4-5.0 T PROT 6.8 g/dL (Normal) Range: 6.4-8.2 23-Tvr-696629:00 Troponin-I Comments: 'TROP' Serial specimen #1, #2, #3, or #4: [address] [place] [address] [address]69 [place], [address] TROPONIN-I < 0.02 ng/mL (Normal) Comments: TROPONIN-I EXPECTED VALUES <0.05 NEGATIVE 0.06 - 0.59 AT RISK OF GA > OR = 0.60 SUGGEST GA 73-Ron-330700:08 Osmolality, Urine Comments: Order Date: 02/16/16Has pt arrived? [place] [address] [place], [place], [id number] OSMOLALITY,UR 310 {mOsm/KG} (Normal) Comments: OSMOLALITY URINE REFERENCE INTERVALS 24-hour Urine 300 - 900 mOsm/kg Random Urine 50 - 1400 mOsm/kg After 12 Hr fluid restriction >850 mOsm/kg 65-Gbe-772074:50 Amylase Comments: [place] [address] [address] [place], [place], [address] PREMA 80 U/L (Normal) Range: 25-115 79-Pdp-275968:50 CBC W/Diff, Automated Comments: [address], [address] Absolute Lymph 1.51 {X10_3/ul} (Normal) [...] 4.2-5.4 WBC 4.3 K/mm3 (Abnormal) Range: 4.4-11.0 70-Rxe-911653:50 Comprehensive Metabolic Profil Comments: [facility] [address] [place], [address] GAP 6 (Normal) Range: 5-15 [...] 7-18 GLU 98 mg/dL (Normal) Range: 70-110 15-Ihy-316399:50 Lipase Comments: [address] [place], [address] LIPASE 424 U/L (Abnormal) Range: 73-393 61-Xpw-497497:50 Osmolality, Serum Comments: [address] [place], [address] OSMOLALITY,SER 275 {mOsm/KG} (Normal) Range: 275-295 66-Xxp-528561:50 Vitamin B12 489 pg/mL (Normal) Comments: [address] [place], [address] ; will review on 02/19 Range: 211-911 78-Umm-597158:50 Vitamin D,25 Hydroxy Comments: [address] DarioeTimothy [place], [address] Vitamin D 25-OH 37.6 ng/mL (Normal) Comments: Vitamin D 25(OH) Status Range Deficiency <20 ng/mL (50nmol/L) Insuffciency 20 - 30 ng/mL (50 - 75 nmol/L) Sufficiency 30 - 100 ng/mL (75 - 250 nmol/L) Toxicity >100 ng/mL (>250 nmol/L) 50-Rxx-13557:00 Ferritin Comments: [facility] Iwzxdsnpbv495[address] [place], [address] FERRITIN 13 ng/mL (Normal) Range: 8-252 :00 Lipid Profile Comments: [facility] Qtbvjjsgoh88[address] [place], [address] VLDL 28 mg/dL (Normal) Range: 5-40 LDL [...] 200-240 mg/dL Borderline >240 mg/dL High Risk 9-Lyv-076702:40 CBC W/Diff, Automated Comments: Order Date: 09/08/15Has pt arrived? [facility] Zvwbggsptr5[address] [place], [address] Absolute Lymph 1.80 {X10_3/ul} (Normal) Range: 0.83-4.51 [...] 4.2-5.4 WBC 4.4 K/mm3 (Normal) Range: 4.4-11.0 1-Ahv-652645:40 Comprehensive Metabolic Profil Comments: Order Date: 09/08/15Has pt arrived? [facility] Eoduzilwpq3594 [place], [address] GAP -1 (Abnormal) Range: 5-15 CO2 30.0 [...] 7-18 GLU 97 mg/dL (Normal) Range: 70-110 8-Kyh-148955:16 Amylase Comments: [facility] Nwwtxnvpor4013 [facility] [place], [address] PREMA 95 U/L (Normal) Range: 25-115 3-Iwf-584164:16 Lipase Comments: [facility] Zxfetlrlvp2022 [facility] [place], [address] LIPASE 568 U/L (Abnormal) Range: 73-393 7-Fid-757200:29 Influenza A&B Viral Comments: PATIENT NOT FASTINGPERFORMED BY: Lavante[address] [id number] Information: SRC:NOS [id number] Culture (22569) Viral Culture,Rapid,Influenza FLUABN (Normal) Comments: Negative:No Influenza A or B detected. 5-Sgn-756566:49 Rapid Flu (80712 x 2) Influenza A Ag neg (Normal) 50-Asf-209811:01 CBC (Auto) (01359) Comments: now and in six months (approximately); PATIENT WAS FASTINGPERFORMED BY: [employer] [id number] Information: [id number], [id number] Platelets 357 {x10E3/uL} (Normal) Range: 150-379 RDW 14.6 % (Normal) Range: 12.3-15.4 MCHC 34.1 g/dL (Normal) Range: 31.5-35.7 MCH 29.8 pg (Normal) Range: 26.6-33.0 MCV 88 fL (Normal) Range: 79-97 Hematocrit 37.0 % (Normal) Range: 34.0-46.6 Hemoglobin 12.6 g/dL (Normal) Range: 11.1-15.9 RBC 4.23 {x10E6/uL} (Normal) Range: 3.77-5.28 WBC 5.7 {x10E3/uL} (Normal) Range: 3.4-10.8 45-Lgf-533033:01 Metabolic Panel, Basic Comments: now; PATIENT WAS FASTINGPERFORMED BY: Agentrun[address] [place] [id number] (50833) Calcium, Serum 9.1 mg/dL (Normal) Range: 8.7-10.2 [...] Glucose, Serum 102 mg/dL (Abnormal) Range: 65-99 87-Oms-804026:01 CALCIFIDIOL (63854) VIT D 25 Comments: now and in six months (approximately); PATIENT WAS FASTINGPERFORMED BY: [facility] Operations CenterLmdhcb2165 [place] [id number] Vitamin D, 25-Hydroxy 32.8 ng/mL (Normal) Range: 30.0-100.0 Comments: Vitamin D deficiency has been defined by the Turner ofMedicine and an Endocrine Society practice guideline as alevel of serum 25-OH vitamin D less than 20 ng/mL (1,2).The Endocrine Society went on to further define vitamin Dinsufficiency as a level between 21 and 29 ng/mL (2).1. IOM (Turner of Medicine). 2010. Dietary reference intakes for calcium and D. [place]: The National Academies Press.2. Candelaria MF, Janey ELIAS, Yolande GROSS, et al. Evaluation, treatment, and prevention of vitamin D deficiency: an Endocrine Society clinical practice guideline. JCEM. 2010; 96(7):1911-30. 7-Bme-106046:06 Sputum Culture (93502) Comments: PATIENT NOT FASTINGPERFORMED BY: [facility] Obwzog1902 [facility] [id number] Information: [id number] Result 1 RRF (Normal) Comments: Routine respiratory rajwinder Lower Respiratory Culture Final report (Normal) 2-Svx-793415:12 Rapid Flu (89511 x 2) Influenza A Ag neg a and b (Normal) 22-Fwp-097180:01 Urinalysis, Office (77978) UA - LEUKOCYTE ESTERASE Negative (Normal) UA - NITRITE Negative (Normal) URINE UROBILINGN YANCI TIMED Normal mg/dL (Normal) UA - PROTEIN Negative mg/dL (Normal) UA - PH 6.0 (Normal) Comments: 5.5 UA - BLOOD Negative (Normal) UA - SPECIFIC GRAVITY 1.025 (Normal) UA - KETONES Negative mg/dL (Normal) UA - BILIRUBIN Negative (Normal) UA - GLUCOSE Negative (Normal) 01-Ywd-219046:40 Lipase (94324) Comments: PATIENT NOT FASTINGPERFORMED BY: [facility] Pfszku9333 [facility] [id number] Lipase, Serum 113 U/L (Abnormal) Range: 0-59 32-Gnq-005416:40 Amylase (49194) Comments: PATIENT NOT FASTINGPERFORMED BY: [facility] Lpceev8028 [facility] [id number] Information: [id number] Amylase, Serum 104 U/L (Normal) Range: 31-124 7-Zag-147586:54 Sputum Culture (79542) Comments: PATIENT NOT FASTINGPERFORMED BY: [facility] Wrscqm2710 [facility] [id number] Information: SRC: THROAT [id number] Result 1 RRF (Normal) Comments: Routine respiratory rajwinder Lower Respiratory Culture Final report (Normal) 2-Fmq-730150:55 Pathology Report Comments: PERFORMED BY: KWCYT [facility] [place] Cyto Kyfzh10257 [employer] [facility] [id number] BY: [facility] Dermatopathology Mggwoxb[address] [id number] Information: [id number] See MATER Comments: Material submitted: .PUNCH BIOPSY [...] IS NEGATIVE FOR FUNGAL FORMS.Pathologist provided ICD-9:692.9CPT .839540, 970898 85-Yhm-352406:41 Lipid Panel (52508) Comments: PATIENT WAS FASTINGPERFORMED BY: [facility]CoMatheny Medical and Educational CenterDgbpbj8438 [facility] [id number] LDL/HDL Ratio 1.0 {ratio_units} (Normal) Range: 0.0-3.2 [...] - 169 >19 years 100 - 199 11-Rix-927267:41 Metabolic Panel, Comments: PATIENT WAS FASTINGPERFORMED BY: [facility]Nor-Lea General HospitalCzcnwn2746 [facility] [id number] Information: [id number] [facility] (80582) ALT (SGPT) 13 [iU]/L (Normal) Range: 0-32 [...] Glucose, Serum 97 mg/dL (Normal) Range: 65-99 10-Ren-868618:41 Vitamin B-12 (cyanocobalamin) Comments: PATIENT WAS FASTINGPERFORMED BY: [facility]anteMatheny Medical and Educational CenterBvdyjw4871 [facility] [id number] (07116) Vitamin B12 632 pg/mL (Normal) Range: 211-946 26-San-969433:41 CBC (Auto) (36023) Comments: PATIENT WAS FASTINGPERFORMED BY: [facility] Wtpfkh6217 [facility] [id number] Platelets 270 {x10E3/uL} (Normal) Range: 150-379 RDW 13.9 % (Normal) Range: 12.3-15.4 MCHC 32.8 g/dL (Normal) Range: 31.5-35.7 MCH 29.5 pg (Normal) Range: 26.6-33.0 MCV 90 fL (Normal) Range: 79-97 Hematocrit 36.6 % (Normal) Range: 34.0-46.6 Hemoglobin 12.0 g/dL (Normal) Range: 11.1-15.9 RBC 4.07 {x10E6/uL} (Normal) Range: 3.77-5.28 WBC 8.5 {x10E3/uL} (Normal) Range: 3.4-10.8 :41 Ferritin (18336) Comments: PATIENT WAS FASTINGPERFORMED BY: [facility] Wjjghc6808 [facility] [id number] Ferritin, Serum 28 ng/mL (Normal) Range: 15-150 :41 CALCIFIDIOL (14420) VIT D 25 Comments: PATIENT WAS FASTINGPERFORMED BY: [facility] Pwhawa5054 [facility] [id number] Vitamin D, 25-Hydroxy 24.3 ng/mL (Abnormal) Range: 30.0-100.0 Comments: Vitamin D deficiency has been defined by the Turner ofMedicine and an Endocrine Society practice guideline as alevel of serum 25-OH vitamin D less than 20 ng/mL (1,2).The Endocrine Society went on to further define vitamin Dinsufficiency as a level between 21 and 29 ng/mL (2).1. IOM (Turner of Medicine). 2010. Dietary reference intakes for calcium and D. [place]: The National Academies Press.2. Candelaria MF, Janey ELIAS, Yolande GROSS, et al. Evaluation, treatment, and prevention of vitamin D deficiency: an Endocrine Society clinical practice guideline. JCEM. 2010; 96(7):1911-30. :55 CBC-Complete Blood Cnt No Diff Comments: Test performed at:[facility] C[address] [place] [address] MPV 9.5 fL (Normal) Range: 6.2-12.0 [...] 4.2-5.4 WBC 5.1 K/mm3 (Normal) Range: 4.4-11.0 27-Ond-891168:55 Ferritin Comments: Test performed at:[facility] Vhpxnrblkw[address] [place] [address] FERRITIN 23 ng/mL (Normal) Range: 8-252 23-Clj-957433:55 Iron Comments: Test performed at:[facility] Jtojtcvltz[address] [place] [address] IRON 75 ug/dL (Normal) Range: 50-170 79-Aow-541525:53 CBC W/Diff, Automated Comments: Test performed at:[facility] Eyfyvaxznd8564[address] [place] [address] Absolute Lymph 1.57 {X10_3/ul} (Normal) Range: 0.83-4.51 [...] 4.2-5.4 WBC 3.8 K/mm3 (Abnormal) Range: 4.4-11.0 60-Wup-857530:53 Comprehensive Metabolic Profil Comments: Test performed at:[facility] Wqiaozysso3231 [address] [place], [place] [id number] GAP 5 (Normal) Range: 5-15 CO2 29.0 [...] 7-18 GLU 99 mg/dL (Normal) Range: 70-110 85-Hto-585041:53 Ferritin Comments: Test performed at:[facility] Xsthms[address]xol[address] [place] [address] FERRITIN 13 ng/mL (Normal) Range: 8-252 01-Boo-508194:53 Lipid Profile Comments: Test performed at:[facility] Euzrifqwol[address] [place] [address] VLDL 19 mg/dL (Normal) Range: 5-40 [...] 200-240 mg/dL Borderline >240 mg/dL High Risk 92-Kvp-616060:53 Vitamin B12 > 2000 pg/mL (Abnormal) Comments: Test performed at:[facility] Hoktlmlbgv[address] [place] [address] Range: 211-911 68-Rrs-998212:46 CBC W/Diff, Automated Comments: Test performed at:[facility] Lziuuspwji[address] [place] [address] Absolute Lymph 1.87 {X10_3/ul} (Normal) Range: [...] 4.2-5.4 WBC 4.1 K/mm3 (Abnormal) Range: 4.4-11.0 86-Cay-069213:46 Comprehensive Metabolic Profil Comments: Test performed at:[facility] Hqjogukrpw5531 [place] [address] GAP 4 (Abnormal) Range: 5-15 CO2 28.0 [...] 7-18 GLU 70 mg/dL (Normal) Range: 70-110 84-Pvp-429417:46 Vitamin D,25 Hydroxy Comments: Test performed at:[facility] Lssldpjyut0659 [place] [address] Vitamin D 25-OH 30.6 ng/mL (Normal) Comments: Vitamin D 25(OH) Status Range Deficiency <20 ng/mL (50nmol/L) Insuffciency 20 - 30 ng/mL (50 - 75 nmol/L) Sufficiency 30 - 100 ng/mL (75 - 250 nmol/L) Toxicity >100 ng/mL (>250 nmol/L) 20-Tfr-182966:04 CALCIFIDIOL (74021) VIT D Comments: PATIENT NOT FASTINGPERFORMED BY: [facility] Behelx3456 [facility] [id number] Information: [id number] 25 Vitamin D, 25-Hydroxy 19.2 ng/mL (Abnormal) Range: 30.0-100.0 Comments: Vitamin D deficiency has been defined by the Turner ofMedicine and an Endocrine Society practice guideline as alevel of serum 25-OH vitamin D less than 20 ng/mL (1,2).The Endocrine Society went on to further define vitamin Dinsufficiency as a level between 21 and 29 ng/mL (2).1. IOM (Turner of Medicine). 2010. Dietary reference intakes for calcium and D. [place]: The National Academies Press.2. Candelaria MF, Janey NC, Yolande GROSS, et al. Evaluation, treatment, and prevention of vitamin D deficiency: an Endocrine Society clinical practice guideline. JCEM. 2010; 96(7):1911-30. :04 Ferritin (96280) Comments: PATIENT NOT FASTINGPERFORMED BY: MONA LavanteMatheny Medical and Educational CenterPwrhkb6559 [facility] [id number] Ferritin, Serum 34 ng/mL (Normal) Range: 15-150 :05 METABOLIC PANEL, COMPREHENSIVE Comments: PATIENT NOT FASTINGPERFORMED BY: LavanteMatheny Medical and Educational CenterJthquz9796 [facility] [id number] (84352) ALT (SGPT) 10 [iU]/L (Normal) Range: 0-32 [...] Glucose, Serum 86 mg/dL (Normal) Range: 65-99 49-Fdx-210028:05 CBC WITH MANUAL DIFF Comments: PATIENT NOT FASTINGPERFORMED BY: [place] Enterpriselin6370 [facility] [id number] Information: [id number],2ND ORDER NO DRAW F EE (80141) Immature Grans (Abs) 0.0 {x10E3/uL} (Normal) Range: [...] 3.77-5.28 WBC 5.2 {x10E3/uL} (Normal) Range: 3.4-10.8 90-Mba-292517:05 CALCIFIDIOL (91413) VIT D 25 Comments: PATIENT NOT FASTINGPERFORMED BY: [facility]6370 [facility] [id number] Vitamin D, 25-Hydroxy 19.6 ng/mL (Abnormal) Range: 30.0-100.0 Comments: Vitamin D deficiency has been defined by the Turner ofMedicine and an Endocrine Society practice guideline as alevel of serum 25-OH vitamin D less than 20 ng/mL (1,2).The Endocrine Society went on to further define vitamin Dinsufficiency as a level between 21 and 29 ng/mL (2).1. IOM (Turner of Medicine). 2010. Dietary reference intakes for calcium and D. Lal [place]: The National AcademE[employer] Press.2. Candelaria MF, Janey ELIAS, Yolande GROSS, et al. Evaluation, treatment, and prevention of vitamin D deficiency: an Endocrine Society clinical practice guideline. JCEM. 2010; 96(5):1911-30. : B12 446 pg/mL (Normal) Range: 211-911 [...] CHOL 168 mg/dL (Normal) Comments: <200 mg/dL Dcqwiqvhs638-605 mg/dL Borderline>240 mg/dL High Risk 2-Ayu-373977:51 VITD 38.8 mg/mL (Normal) Comments: Vitamin D 25(OH) Status RangeDeficiency <20 ng/mL (50nmol/L)Insuffciency 20 - 30 ng/mL (50 - 75 nmol/L)Sufficiency 30 - 100 ng/mL (75 - 250 nmol/L)Toxicity >100 ng/mL (>250 nmol/L) 21-Aav-327057:07 Lipase (35148) Comments: PERFORMED BY: [facility] [employer] [facility] [id number] Lipase, Serum 67 U/L (Abnormal) Range: 0-59 16-Xew-279548:07 Amylase (95476) Comments: PERFORMED BY: [facility] [employer] [facility] [id number] Amylase, Serum 92 U/L (Normal) Range: 31-124 30-Mwm-946926:11 Urinalysis, Office (55564) UA - LEUKOCYTE ESTERASE Negative (Normal) UA - NITRITE Negative (Normal) URINE UROBILINGN YANCI TIMED Normal mg/dL (Normal) UA - PROTEIN Negative mg/dL (Normal) UA - PH 5 (Abnormal) Comments: 5.5 UA - BLOOD Negative (Normal) UA - SPECIFIC GRAVITY 1.015 (Normal) UA - KETONES 15 mg/dL (Abnormal) UA - BILIRUBIN Small (Normal) UA - GLUCOSE Negative (Normal) 92-Rci-926647:28 GRETTA CULTURE-OTHER (25566) Comments: PATIENT NOT FASTINGPERFORMED BY: [facility] [employer] [facility] [id number] Information: SRC:THRT [id number] Result 1 RRF (Normal) Comments: Routine respiratory rajwinder Upper Respiratory Culture Final report (Normal) 36-Zek-824280:32 Rapid Strep Test, Office (14795) Rapid Strep Test, Office Negative (Normal) 91-Bql-759696:02 Iron Binding Capacity Comments: PATIENT NOT FASTINGPERFORMED BY: [facility] [employer] [facility] [id number] Information: [id number] (TIBC) (62874) Iron Saturation 6 % (Abnormal) Range: 15-55 Iron, Serum 32 ug/dL (Abnormal) Range: 35-155 UIBC 461 ug/dL (Abnormal) Range: 150-375 Iron Bind.Cap.(TIBC) 493 ug/dL (Abnormal) Range: 250-450 :02 Ferritin (88826) Comments: PATIENT NOT FASTINGPERFORMED BY: LabCoMatheny Medical and Educational CenterYudnip0314 [facility] [id number] Ferritin, Serum 7 ng/mL (Abnormal) Range: 15-150 [...] CHOL 181 mg/dL (Normal) Comments: <200 mg/dL Mdlahfwqc346-429 mg/dL Borderline>240 mg/dL High Risk :19 VITD [...] 7-18 GLU 79 mg/dL (Normal) Range: 70-110 23-Jsq-069128:18 TS Ab SCREEN GEL NEGATIVE (Normal) SCREEN CELL I NEGATIVE (Normal) SCREEN CELL II NEGATIVE (Normal) SCREEN CELL III NEGATIVE (Normal) BLOOD TYPE GEL O POSITIVE (Normal) 29-Bps-749485:17 Metabolic Panel, Comments: PATIENT NOT FASTINGPERFORMED BY: [facility] Eqhgty6678 [facility] [id number] Information: [id number] Comprehensive (55638) ALT (SGPT) 13 [iU]/L (Normal) Range: 0-32 [...] 4.2-5.4 WBC 5.0 K/mm3 (Normal) Range: 4.4-11.0 01-Kll-463333:19 CMP GAP 9 (Normal) Range: 5-15 CO2 [...] s (Normal) Range: 11.9-14.4 :41 VIT D,25 16086 20.3 ng/mL (Abnormal) Range: 30.0-100.0 Comments: Vitamin D deficiency has been defined by the Turner ofMedicine and an Endocrine Society practice guideline as alevel of serum 25-OH vitamin D less than 20 ng/mL (1,2).The Endocrine Society went on to further define vitamin Dinsufficiency as a level between 21 and 29 ng/mL (2).1. IOM (Turner of Medicine). 2010. Dietary reference intakes for calcium and D. Lal [place]: The National Academies Press.2. Candelaria MF, Janey NC, Yolande GROSS, et al. Evaluation, treatment, and prevention of vitamin D deficiency: an Endocrine Society clinical practice guideline. JCEM. 2010; 96(7): 1911-30.Performed at: - [employer] [id number] Director: Yony San MD, Phone: [phone] at: [facility] [id number] Director: Era Tinoco MD, Phone: [phone] :41 VITD 1,25 74086 44.5 pg/mL (Normal) Range: 10.0-75.0 :09 PREMA [...] 4.2-5.4 WBC 6.2 K/mm3 (Normal) Range: 4.4-11.0 8-Wil-704066:09 COMP METABOLIC GAP 11 (Normal) Range: 5-15 [...] :09 FERRITIN 18 ng/mL (Normal) Range: 8-252 3-Mat-770608:09 LIPASE 280 U/L (Normal) Range: 70-290 Comments: Please note:LIPASE revised reference range effective 09. 08-Nkt-397249:05 LIPID Comments: COMMENTS: FAX RESULTS TO DR [...] 200-240 mg/dL Borderline >240 mg/dL High Risk 27-Tsh-452183:54 BILAT SCRN DIGITAL & CAD Radiology Report [...] 11/20/10 0112 Sign by: Bartolome Patel MD 75-Ocb-333148:54 DEXA BONE DENSITY STUDY (HP) Radiology Report See Note (Normal) Comments: CLINICAL:Female, 55 years old. The patient is postmenopausal. EXAMINATION:DUAL ENERGY X-RAY ABSORPTIOMETRY / DEXA. TECHNIQUE:Bone Mineral Density (BMD) measurements of lumbar spine and bila teralhipswer e obtained using a [employer] scanner.. COMPARISON:Comparison is made with prior study [...] on 11/20/1030 Sign by: Bartolome Patel MD 8-Jui-348188:46 DESIRAE DIR SEMI-QL Comments: ORDERED CBC LUZ MARINA FEDRCOREY ORDERED CMP CBCD CRP ESR VITD HEPB SURF AB CCPHEPB IRINA AG HEPC DESIRAE RA HEPB CORE IGM UAC SCL70 ANTOINE ANTI JOANTICENT AB SSA SSB DNA UAPROTEIN C3 C4 TSH DESIRAE DIRECT 56 AU/mL (Normal) 7-Lgw-661308:46 ANEX PANEL Comments: ORDERED CBC LUZ MARINA FEDRCOREY ORDERED CMP CBCD CRP ESR VITD HEPB SURF AB CCPHEPB IRINA AG HEPC DESIRAE RA HEPB CORE IGM UAC SCL70 ANTOINE ANTI JOANTICENT AB SSA SSB DNA UAPROTEIN C3 C4 TSH; appt 11/02/10 SENIOR TERADATA DEVELOPER AB 14 AU/mL (Normal) ANTI-TORRES AB 7 AU/mL (Normal) :46 ANTI JO1 Comments: ORDERED CBC LUZ MARINA FEDRCOREY ORDERED CMP CBCD CRP ESR VITD HEPB SURF AB CCPHEPB IRINA AG HEPC DESIRAE RA HEPB CORE IGM UAC SCL70 ANTOINE ANTI JOANTICENT AB SSA SSB DNA UAPROTEIN C3 C4 TSH ANTI LAMAR 7 AU/mL (Normal) 3-Jtk-846746:46 ANTI SCL 70 Comments: ORDERED CBC LUZ MARINA FEDRCOREY ORDERED CMP CBCD CRP ESR VITD HEPB SURF AB CCPHEPB IRINA AG HEPC DESIRAE RA HEPB CORE IGM UAC SCL70 ANTOINE ANTI JOANTICENT AB SSA SSB DNA UAPROTEIN C3 C4 TSH ANTI-SCL 70 14 AU/mL (Normal) 2-Xpm-765896:46 ANTI-CCP 527760 < 1 {units} (Normal) Comments: ORDERED CBC [...] 0.6-1.0 GLU 91 mg/dL (Normal) Range: 70-110 6-Owi-759041:46 ESR Comments: ORDERED CBC LUZ MARINA RODRIGUEZ [...] C4 TSH Range: 8-252 :46 HB CORE [id number] SeeNote (Normal) Comments: ORDERED CBC LUZ MARINA MICHAEL ORDERED CMP CBCD CRP ESR VITD HEPB SURF AB CCPHEPB IRINA AG HEPC DESIRAE RA HEPB CORE IGM UAC SCL70 ANTOINE ANTI JOANTICENT AB SSA SSB DNA UAPROTEIN C3 C4 TSH Comments: Result: Negative Performed at: - [facility] [address] [id number] Director: Era Tinoco MD, Phone: [phone] at: - [facility] [address] [id number] Director: Yony San MD, Phone: [phone] HBsAg [id number] Comments: ORDERED CBC LUZ [...] of antibody present. :46 HEP C AB [id number] <0.1 (Normal) Comments: ORDERED CBC LUZ MARINA [...] C4 TSH Range: 0.358-3.74 :46 VIT D,25 07309 9.3 ng/mL (Abnormal) Comments: ORDERED CBC LUZ MARINA FEDRCOREY ORDERED CMP CBCD CRP ESR VITD HEPB SURF AB CCPHEPB IRINA AG HEPC DESIRAE RA HEPB CORE IGM UAC SCL70 ANTOINE ANTI JOANTICENT AB SSA SSB DNA UAPROTEIN C3 C4 TSH Range: 32.0-100.0 Comments: Recent studies consider the lower limit of 32.0 ng/mL to jayleen threshold for optimal health.Ortiz SANCHEZ. J Nutr. 2004;135(2):317-22. [id number] CBC Comments: COMMENTS: FAX RESULTS TO DR. [...] 4.2-5.4 WBC 9.8 K/mm3 (Normal) Range: 4.4-11.0 43-Rmh-369237:10 FERRITIN 21 ng/mL (Normal) Comments: COMMENTS: FAX RESULTS TO DR. CECI NUNORESULTS FAXED 07/17/10 131VLADIMIR MAKI. Range: 8-252 00-Buw-285663:10 IRON 125 ug/dL (Normal) Comments: COMMENTS: FAX RESULTS TO DR. CECI FARIAS DRAWRESULTS FAXED 07/17/10 131VLADIMIR MAKI. Range: 50-170 76-Cny-558171:20 CBC With Differential/Platelet Comments: [facility]FORMED BY: [facility] [facility] [id number] Baso (Absolute) 0.0 {x10E3/uL} (Normal) Range: 0.0-0.2 [...] 11.7-15.0 WBC 5.3 {x10E3/uL} (Normal) Range: 4.0-10.5 93-Uep-498057:20 Comp. Metabolic Panel (14) Comments: PERFORMED BY: [facility] [facility] [id number] ALT (SGPT) 18 [iU]/L (Normal) Range: 0-40 [...] Serum 14 ng/mL (Normal) Comments: PERFORMED BY: [facility] [id number] 14:20 Range: 13-150 39-Snn-877094:20 Iron and TIBC Comments: PERFORMED BY: [employer] [facility] [id number] Iron Saturation 23 % (Normal) Range: 15-55 Iron, Serum 106 ug/dL (Normal) Range: 35-155 UIBC 361 ug/dL (Normal) Range: 150-375 Iron Bind.Cap.(TIBC) 467 ug/dL Range: 250-450 (Abnormal) TSH 1.760 {uIU/mL} Comments: PERFORMED BY: [facility] [id number] :20 (Normal) Range: 0.450-4.500 C DIF TOXIN/AG See Note (Normal) Comments: PT COLLECTED SPECIMEN 12/30 @2300 :45 Comments: C. DIFF ANTIGENS NEGATIVE :45 CUL STOOL/SHIG Comments: PT COLLECTED SPECIMEN 12/30 @2300 CULTURE, STOOL See Note (Normal) Comments: COPY OF REPORT SENT TO INFECTION CONTROL 01/03/10 [facility]. No Salmonella, Shigella or Yersinia isolated.No significant [...] Crytosporidium parvum,Cyclospora, or Microsporidia.__ TESTING PERFORMED AT [facility]. ORIGINAL REPORT ONFILE IN LAB CONTAINS [...] Please note:LIPASE revised reference range effective 09. 88-Mxm-979547:10 RENAL Comments: COMMENTS: IV THERAPY DRAWING CO2 [...] (Normal) GLU 102 mg/dL (Normal) Range: 70-110 31-Biu-287586:37 OCCULT BLOOD FECES SCREEN (41029) OCCULT BLOOD FECES SCREEN negative (Normal) 79-Pmr-735794:03 CBCD,SMEAR DIFF PLT EST SeeNote (Normal) Comments: [...] 6.4-8.2 GLU 94 mg/dL (Normal) Range: 70-110 25-Srl-603721:03 FERRITIN 12 ng/mL (Normal) Range: 8-252 :03 IRON 128 ug/dL (Normal) Range: 50-170 92-Qfy-469379:03 LIPID LDL 86 mg/dL (Normal) Range: 0-130 VLDL 18 mg/dL (Normal) Range: 5-40 HDL 79 mg/dL (Normal) Comments: Reference RangeHDL <40 mg/dL Low HDL CholesterolHDL >or= 60 mg/dL High HDL Cholesterol CHOL 183 mg/dL (Normal) Comments: <200 mg/dL Qqazrfqvr688-838 mg/dL Borderline>240 mg/dL High Risk TRIG 88 mg/dL (Normal) Comments: Serum Triglycerides Reference IntervalNormal <150 mg/dLBorderline high 150 - 199 mg/dLHigh 200 - 499 mg/ dLVery High > or = 500 mg/dL 28-Qwz-829211:03 VITAMIN B12 342 pg/mL (Normal) Range: 254-1320 10-Apr-20090:00 FLU A+B DIRECT See Note (Normal) Comments: Negative test results should be confirmed by culture. Order Rapid Viral Culture for Influenzae A+B ([id number]) if clinically indicated. INFLUENZA ANTIGEN,DIRECT Presumptive NEGATIVE for Influenza A/B Antigen (See Note) 86-Svf-704214:43 CHEST, PA AND LATERAL Radiology Report See Note (Normal) Comments: Exam Number: [id number] CLINICAL DATAInterstitial lung disease, cough. CHEST PA [...] pneumonia. Possible bronchitis. Reported By: FLORINDA CAMPOS 84-Wqg-206454:45 L/S SPINE,MIN 4 VIEWS Radiology Report See Note (Normal) Comments: Exam Number: [id number] CLINICAL PROBLEMLow back pain post fall. LUMBAR [...] and spondylosis. Reported By: AROLDO TILLMAN M.D. 05-Lph-718691:44 KNEE,4 OR MORE VIEWS Radiology Report See Note (Normal) Comments: Exam Number: [id number] CLINICAL PROBLEMPain both knees post fall. FOUR [...] patellofemoral compartments. Reported By: AROLDO TILLMAN M.D. 98-Ien-332402:44 KNEE,4 OR MORE VIEWS Radiology Report See Note (Normal) Comments: Exam Number: [id number] CLINICAL PROBLEMLeft knee pain status post fall. [...] Order Rapid Viral Culture for Influenzae A+B ([id number]) if clinically indicated. INFLUENZA ANTIGEN,DIRECT Presumptive NEGATIVE for Influenza A/B Antigen (See Note) 12-Sep-2008 PREMA 66 U/L (Normal) Range: 25-115 12:11 76-Ped-639855:11 CBCD BASO% 0.2 % (Normal) Range: 0-1 [...] 4.2-5.4 WBC 4.2 K/mm3 (Abnormal) Range: 4.4-11.0 98-Ulh-715244:11 COMP METABOLIC A/G 1.2 {RATIO} (Normal) Range: [...] T PROT 6.9 g/dL (Normal) Range: 6.4-8.2 70-Nhf-181596:11 ESR SED RATE 3 mm/h (Normal) Range: 0-30 21-Fnh-284173:11 LIPASE 229 U/L (Normal) Range: 114-286 :11 [...] T PROT 6.7 g/dL (Normal) Range: 6.4-8.2 61-Iad-956597:00 METHYLM 542546 330 nmol/L (Normal) Range: 73-376 Comments: The reference range for methylmalonic acid has been set at+3sd above the mean for healthy blood bank donors. In theclinical assessment of patients with megaloblastic anemiasa cutoff of +3sd provides gre ater specificity in thediagnosis of the vitamin deficiency states, despite thesacrifice of some sensitivity.Performed At: [address] [id number] 5-Hxk-593756:55 Lower Respiratory Culture Comments: Clinical Information: SRC:SP PERFORMED BY: [facility] CenterKaekut[address] [facility] [id number] Lower Respiratory Culture Final report (Normal) Result 1 RRF (Normal) Comments: Routine respiratory rajwinder :3 PREMA 62 U/L (Normal) Range: 25-115 6 77-Vze-19439:36 DESIRAE-D 455374 DESIRAE-DIRECT 23 AU/mL (Normal) Range: 0-99 Comments: [...] {IU/mL} (Normal) Range: 0.0-13.9 Comments: Performed At: [address] [id number] :36 TSH 1.76 {uIU/mL} (Normal) Range: 0.34-4.82 :29 HgA1C , Office (81598) HgA1C , Office 5.5 % (Normal) Range: 4.6 - 7.1 :29 Blood Glucose , Office (58717) Blood Glucose , Office 108 (Normal) :51 CHEST, PA AND LATERAL Radiology Report See Note (Normal) Comments: Exam Number: [id number] PA AND LATERAL CHEST HISTORY Being done [...] By: JERARDO BEAULIEU M.D. :57 Rapid Flu (09158 x 2) INFLUENZA IMMUNOASSY DIRECT OPTICAL OBSERV negative (Normal) Comments: aw 79-Pin-386058:57 LIPID CHOL 186 mg/dL (Normal) Comments: <200 [...] pg/mL (Normal) Range: 211-911 :57 VITD 1,25 32052 69.6 (Normal) Comments: Performed At: [address] [id number] 68-Vqq-051233:47 CHEST, PA AND LATERAL Radiology Report See Note (Normal) Comments: Exam Number: [id number] PA AND LATERAL CHEST HISTORY Being done [...] perihilar infiltrate. Reported By: JERARDO BEAULIEU M.D. 85-Gzy-286942:08 Upper Respiratory Culture Comments: Clinical Information: SRC:TH PERFORMED BY: [facility] [facility] [id number] Result 1 RRF (Normal) Comments: Routine respiratory rajwinder Upper Respiratory Culture Final report (Normal) 3-Dqi-571226:39 CHEST WITHOUT CONTRAST Radiology Report See Note (Normal) Comments: Exam Number: [id number] CT SCAN OF CHEST HISTORYNeoplasm of uncertain [...] PREMA 73 U/L (Normal) Range: 25-115 :01 16-Gwr-198112:01 CBCD BASO% 0.3 % (Normal) Range: 0-1 [...] 11.6-14.6 WBC 4.7 K/mm3 (Normal) Range: 4.4-11.0 36-Chu-576904:01 COMP METABOLIC A/G 1.1 {RATIO} (Normal) Range: [...] mg/dL VLDL 15 mg/dL (Normal) Range: 5-40 84-Sbm-141850:40 BC No growth in 5 days. Comments: COMMENTS: ROOM 12 (Normal) 53-Slq-981687:20 COMPLETE UA Comments: COMMENTS: ROOM 12HOLD IN [...] WBC 0 SEEN {/hpf} (Normal) Range: 0-5 14-Oit-312133:10 BMP Comments: COMMENTS: ROOM 12 BUN 8 [...] 3.5-5.1 NA 132 mmol/L (Abnormal) Range: 136-145 60-Rja-367216:10 CBCD Comments: COMMENTS: ROOM 12 BASO% 0.2 [...] (Normal) WBC 10.6 K/mm3 (Normal) Range: 4.4-11.0 71-Chp-848490:10 LIPASE 212 U/L (Normal) Comments: COMMENTS: ROOM 12 Range: 114-286 85-Kqy-133483:10 LIVER Comments: COMMENTS: ROOM 12 ALB 3.4 [...] 29 [iU]/L (Abnormal) Range: 30-65 :07 DESIRAE-D 540808 DESIRAE-DIRECT 24 U/mL (Normal) Range: 0-99 Comments: Negative <100 Equivocal 100 - 120 Positive >120Performed At: [facility] [address] [place], [place] [id number] At: [facility] [address] [id number] :07 See Note (Normal) Comments: CHECK BLOOD [...] 5.8 K/mm3 (Normal) Range: 4.4-11.0 :07 HISTOPL 434763 SeeNote (Normal) Comments: Result: Negative :07 RA LATEX 6502 8.6 {IU/mL} (Normal) Range: 0.0-13.9 :24 CHEST, PA AND LATERAL Radiology Report See Note (Normal) Comments: Exam Number: [id number] CHEST, PA AND LATERAL HISTORYFever and cough. COMPARISONNone. FINDINGSThere is an indwelling Lsmo-I-Mexbithz on the right side particularlyin the SVC. The heart, aorta, and media stinum are normal. Lungs areclear. There is no evidence of consolidation, effusion, congestion,or nodules. There are clips in the region of the esophageal hiatus. IMPRESSIONClear lungs. Reported By: AN YOUNG M.D. 40-Zvg-396596:0 BC No growth in 5 days. 0 [...] mm/h (Normal) Range: 0-30 :02 Urinalysis, Office (72152) Comments: ABn signed CH UA - BILIRUBIN [...] :19 LIPASE 212 U/L (Normal) Range: 114-286 3-Hut-334813:19 VIT B12 1503 147 pg/mL (Abnormal) Range: 211-911 Comments: Performed At: [address] [id number] 7-Hzr-902950:00 CULTURE, THROAT See Note (Normal) Comments: Normal throat rajwinder isolated. No beta-hemolyticstreptococcus isolated. 4-Vvo-914326:52 Urinalysis, Office (16166) UA - BILIRUBIN Negative (Normal) UA - [...] and of unspecified site Planned Observations LIPASE (02331)Indication: Chronic pancreatitis On: 49-Zpi-067704:51 Request AMYLASE (57308)Indication: Chronic pancreatitis On: 62-Pgp-282403:50 Request URINALYSIS (24302)Indication: Chronic pancreatitis On: :50 Request CBC WITH MANUAL DIFF (55176)Indication: Chronic pancreatitis On: 88-Eyi-365100:50 Request Metabolic Panel, Comprehensive (88291)Indication: Chronic pancreatitis On: 19-Kpv-947135:50 Request PT (PROTHROMBIN TIME) (86528)Indication: PFO (patent foramen ovale) On: 32-Ydj-607351:36 Request Vitamin B-12 (cyanocobalamin) (80509)Indication: S/P gastric bypass On: 5-Jqb-248848:21 Request Ferritin (03285)Indication: Iron deficiency anemia due to dietary causes On: 8-Tsh-165011:21 Request CBC, Platelets & Auto Diff (25973)Indication: Chronic pancreatitis On: :21 Request Metabolic Panel, Comprehensive (93450)Indication: Chronic pancreatitis On: 3-Bua-480968:21 Request CALCIFIDIOL (09202) VIT D 25Indication: Vitamin D deficiency, unspecified On: 52-Tfo-87894:55 Request Comments: re check in 8 weeks Sed Rate Erythrocyte (91147)Indication: Fever On: 48-Xio-981144:39 Request URINALYSIS (65073)Indication: Fever On: :33 Request URINE GRETTA CULTURE-IDENTIFICATN (10107)Indication: Fever On: :33 Request CALCIFIDIOL (21129) VIT D 25Indication: Vitamin D deficiency, unspecified On: :32 Request CBC, Platelets & Auto Diff (58328)Indication: Iron deficiency anemia due to dietary causes On: :32 Request Ferritin (25569)Indication: Iron deficiency anemia due to dietary causes On: 16-Fti-414872:32 Request GRETTA CULTURE-BLOOD (05185)Indication: Fever On: 27-Mmf-010022:30 Request Comments: ONE FROM PORT AND ONE PERIPHERAL CALCIFIDIOL (32467) VIT D 25Indication: Vitamin D deficiency, unspecified On: 32-Jvc-264913:24 Request FERRITIN (66981)Indication: Iron deficiency anemia due to dietary causes On: 95-Xut-366717:22 Request EBV ANTIBODY VCA/EA 12069 (21340)Indication: Fatigue On: 03-Afo-978804:31 Request Comments: please do VCA IGM Ferritin (00453)Indication: Iron deficiency anemia due to dietary causes On: 49-Bcu-381530:00 Request CALCIFIDIOL (62161) VIT D 25Indication: Vitamin D deficiency, unspecified On: 96-Evp-675741:00 Request EBV Panel (77733)Indication: Pharyngitis, acute On: 89-Hgo-268917:58 Request Influenza A&B Viral Culture (17778)Indication: Fever On: 4-Rrx-056017:34 Request GRETTA CULTURE-OTHER (20360)Indication: Fever On: :33 Request Rapid Strep Test, Office (81969)Indication: Fever On: :18 Request Troponin I (05918)Indication: Chest pain at rest On: :43 Request Comments: pls add to labs already done MYOGLOBIN (96197)Indication: Chest pain at rest On: : Request CPK MB FRACTION (50794)Indication: Chest pain at rest On: : Request Sed Rate Erythrocyte (25591)Indication: Chest pain at rest On: : Request CBC WITH MANUAL DIFF (43704)Indication: Chest pain at rest On: Request CALCIFEDIOL (49034)Indication: OTHER AND UNSPECIFIED POSTSURGICAL NONABSORPTION On: :12 Request PARATHORMONE (00593)Indication: OTHER AND UNSPECIFIED POSTSURGICAL NONABSORPTION On: : Request Magnesium (73539)Indication: OTHER AND UNSPECIFIED POSTSURGICAL NONABSORPTION On: : Request Phosphorus (74355)Indication: OTHER AND UNSPECIFIED POSTSURGICAL NONABSORPTION On: : Request IRON (12321)Indication: OTHER AND UNSPECIFIED POSTSURGICAL NONABSORPTION On: : Request FERRITIN (52043)Indication: OTHER AND UNSPECIFIED POSTSURGICAL NONABSORPTION On: :12 Request ZINC, BLOOD (48034)Indication: OTHER AND UNSPECIFIED POSTSURGICAL NONABSORPTION On: : Request VITAMIN A (51681)Indication: OTHER AND UNSPECIFIED POSTSURGICAL NONABSORPTION On: : Request TSH (34375)Indication: OTHER AND UNSPECIFIED POSTSURGICAL NONABSORPTION On: : Request MAGNESIUM (34849)Indication: OTHER AND UNSPECIFIED POSTSURGICAL NONABSORPTION On: : Request Folic Acid Serum (43903)Indication: OTHER AND UNSPECIFIED POSTSURGICAL NONABSORPTION On: : Request CHROMIUM (97556)Indication: OTHER AND UNSPECIFIED POSTSURGICAL NONABSORPTION On: :12 Request ASSAY, HOMOCYSTINE (01119)Indication: OTHER AND UNSPECIFIED POSTSURGICAL NONABSORPTION On: :12 Request Metabolic Panel, Basic (50325)Indication: Abdominal pain On: 58-Yla-658804:11 Request Comments: do on this tuesday OSMOLALITY URINE (55982)Indication: Abdominal pain On: :11 Request Comments: today in ambulatory OSMOLALITY BLOOD (73081)Indication: Abdominal pain On: :11 Request Comments: today in ambulatory Lipase (28121)Indication: Abdominal pain On: :11 Request Comments: today in ambulatory Amylase (52761)Indication: Abdominal pain On: :11 Request Comments: today in ambulatory CBC, Platelets & Auto Diff (25797)Indication: Abdominal pain On: :11 Request Comments: today in ambulatory Metabolic Panel, Comprehensive (55436)Indication: Abdominal pain On: :10 Request Comments: today in ambulatory AMYLASE (42876)Indication: Abdominal pain On: 1-Xur-998117:12 Request LIPASE (99516)Indication: Abdominal pain On: 6-Bbq-259160:12 Request Ferritin (08895)Indication: Iron deficiency anemia due to dietary causes On: :20 Request Comments: in six months (approximately) Vitamin B-12 (cyanocobalamin) (46150)Indication: Other vitamin B12 deficiency anemia On: :19 Request Comments: in six months (approximately) Lipid Panel (76324)Indication: High blood triglycerides On: :19 Request Comments: in six months (approximately) Metabolic Panel, Comprehensive (95160)Indication: Chronic pancreatitis On: :19 Request Comments: in six months (approximately) Vitamin B-12 (cyanocobalamin) (22287)Indication: Other vitamin B12 deficiency anemia On: :27 Request METABOLIC PANEL, COMPREHENSIVE (47642)Indication: High blood triglycerides On: :19 Request LIPID PANEL (20643)Indication: High blood triglycerides On: :19 Request CBC, Platelets & Auto Diff (21173)Indication: Iron deficiency anemia due to dietary causes On: 23-Scn-378383:15 Request Ferritin (82909)Indication: Iron deficiency anemia due to dietary causes On: 98-Zsr-651491:15 Request Iron (64370)Indication: Iron deficiency anemia due to dietary causes On: :29 Request Comments: recheck in 4 weeks pt needs to be fasting Iron Binding Capacity (TIBC) (32936)Indication: Iron deficiency anemia due to dietary causes On: :29 Request Comments: recheck in 4 weeks pt needs to be fasting Ferritin (65525)Indication: Iron deficiency anemia due to dietary causes On: :28 Request Comments: recheck in 4 weeks pt needs to be fasting METABOLIC PANEL, COMPREHENSIVE (72443)Indication: High blood triglycerides On: :33 Request LIPID PANEL (62291)Indication: High blood triglycerides On: 69-Tvk-190998:33 Request CBC (Auto) (48602)Indication: Iron deficiency anemia due to dietary causes On: 99-Wet-077393:33 Request Ferritin (22801)Indication: Iron deficiency anemia due to dietary causes On: 49-Owz-229699:33 Request Vitamin B-12 (cyanocobalamin) (04987)Indication: Other vitamin B12 deficiency anemia On: 43-Mwo-146376:32 Request CALCIFIDIOL (47107) VIT D 25Indication: Vitamin D deficiency, unspecified On: 50-Cbv-391440:32 Request CULTURE, SPUTUM (18641)Indication: Cough On: 1-Fgf-730234:36 Request Iron (05301)Indication: Iron deficiency anemia due to dietary causes On: 12-Oek-333221:53 Request CALCIFIDIOL (92028) VIT D 25Indication: Vitamin D deficiency, unspecified On: 68-Kbd-932374:02 Request CBC (Auto) (49374)Indication: Iron deficiency anemia due to dietary causes On: 6-Ztr-912797:49 Request Metabolic Panel, Comprehensive (11035)Indication: Chronic pancreatitis On: 2-Ycd-422013:49 Request Lipid Panel (02989)Indication: High blood triglycerides On: 2-Ywl-046975:49 Request Ferritin (69439)Indication: Iron deficiency anemia due to dietary causes On: 8-Qds-752035:48 Request CALCIFEDIOL (07842)Indication: Vitamin D deficiency, unspecified On: :48 Request Vitamin B-12 (cyanocobalamin) (85183)Indication: Other vitamin B12 deficiency anemia On: 5-Oef-783177:47 Request Lipase (28968)Indication: Chronic pancreatitis On: :47 Request Amylase (63080)Indication: Chronic pancreatitis On: :47 Request D-Dimer (58384)Indication: Anemia On: 00-Svg-513765:28 Request Comments: stat Metabolic Panel, Comprehensive (47090)Indication: Anemia On: :16 Request TYPE & SCREEN GEL (54057)Indication: Anemia On: :16 Request CBC with manual diff (68685)Indication: Anemia On: :15 Request Lipase (82367)Indication: Chronic pancreatitis On: :30 Request Amylase (18650)Indication: Chronic pancreatitis On: 27-Rfy-422168:30 Request Ferritin (60107)Indication: Iron deficiency anemia due to dietary causes On: 71-Xzt-248759:28 Request LIPASE (27697)Indication: Chronic pancreatitis On: 6-Tvh-786493:21 Request AMYLASE (63642)Indication: Chronic pancreatitis On: 9-Fgi-190243:21 Request Lipase (67926)Indication: Chronic pancreatitis On: 07-Twt-355331:12 Request Amylase (54582)Indication: Chronic pancreatitis On: 65-Fmd-343580:12 Request MICROALBUMIN: CREATININE RATIO (36519) AND (54627)Indication: Chronic pancreatitis On: 04-Lok-067575:12 Request METABOLIC PANEL, COMPREHENSIVE (67266)Indication: Chronic pancreatitis On: 42-Oqu-799792:12 Request LIPID PANEL (61101)Indication: High blood triglycerides On: 42-Lbd-082345:12 Request CBC WITH MANUAL DIFF (64422)Indication: Chronic pancreatitis On: 13-Dbi-896149:12 Request Metabolic Panel, Comprehensive (05247)Indication: Chronic pancreatitis On: 2-Nat-612469:46 Request Lipase (52728)Indication: Chronic pancreatitis On: 3-Jav-975751:46 Request Amylase (85149)Indication: Chronic pancreatitis On: 5-Fyf-837246:46 Request CALCIFIDIOL (85619) VIT D 25Indication: Vitamin D deficiency, unspecified On: :43 Request Ferritin (82687)Indication: Iron deficiency anemia due to dietary causes On: :43 Request CBC (Auto) (26345)Indication: Iron deficiency anemia due to dietary causes On: :43 Request PT (Prothrobim Time) (19248)Indication: AFTERCARE, LONG-TERM USE, ANTICOAGULANTS On: :28 Request Lipase (57528)Indication: Chronic pancreatitis On: : Request Amylase (21359)Indication: Chronic pancreatitis On: : Request Metabolic Panel, Comprehensive (26028)Indication: Chronic pancreatitis On: : Request CBC (Auto) (13262)Indication: Leukopenia On: :25 Request Lipid Panel (51738)Indication: High blood triglycerides On: :25 Request Iron (69985)Indication: Iron deficiency anemia due to dietary causes On: :23 Request Ferritin (51815)Indication: Iron deficiency anemia due to dietary causes On: :23 Request Vitamin B-12 (cyanocobalamin) (64287)Indication: Other vitamin B12 deficiency anemia On: :23 Request CALCIFIDIOL (49580) VIT D 25Indication: Vitamin D deficiency, unspecified On: 3-Wee-990764:23 Request Lipase (09088)Indication: Chronic pancreatitis On: :21 Request Amylase (96930)Indication: Chronic pancreatitis On: 5-Nbx-654552:21 Request Comments: pls add to labs already drawn Metabolic Panel, Comprehensive (41392)Indication: Chronic pancreatitis On: : Request Ferritin (42697)Indication: Iron deficiency anemia due to dietary causes On: 4-Smx-159153: Request CBC (Auto) (61729)Indication: Chronic pancreatitis On: 4-Bpa-456012:07 Request LIPID PANEL (59431)Indication: High blood triglycerides On: 6-Olw-020311:15 Request Iron Binding Capacity (TIBC) (82782)Indication: Anemia On: :53 Request Iron (16510)Indication: Anemia On: 82-Gnj-935497:53 Request Ferritin (03589)Indication: Anemia On: :53 Request CBC (Auto) (37746)Indication: Anemia On: :53 Request Metabolic Panel, Comprehensive (24776)Indication: Chronic pancreatitis On: :53 Request OVA & PARASITE DIR SMEAR (54362)Indication: Diarrhea On: :37 Request LEUKOCYTE COUNT, FECAL (26062)Indication: Diarrhea On: :37 Request C.Difficile, Stool (10824)Indication: Diarrhea On: :37 Request GRETTA CULTURE-STOOL (61362)Indication: Diarrhea On: :37 Request Vitamin B-12 (cyanocobalamin) (73355)Indication: Other vitamin B12 deficiency anemia On: 62-Ltn-929860:05 Request Iron (53552)Indication: Anemia On: 34-Ibr-635550:05 Request Ferritin (46576)Indication: Anemia On: 08-Mms-548998:05 Request METABOLIC PANEL, COMPREHENSIVE (47748)Indication: High blood triglycerides On: :05 Request CBC WITH MANUAL DIFF (39058)Indication: Anemia On: 42-Fpl-249835:05 Request LIPID PANEL (57067)Indication: High blood triglycerides On: 76-Tnj-446861:04 Request nasal influenza swab (94365) W4Szysminsgs: Unspecified Diagnosis On: 8-Ups-281439:29 Request Rapid Flu (28373 x 2)Indication: Fever On: 9-Ytg-789272:44 Request Lipid Panel (66617)Indication: High blood triglycerides On: 73-Eyp-162872:53 Request CBC (Auto) (30961)Indication: Chronic pancreatitis On: 19-Gyn-033419:51 Request Metabolic Panel, Comprehensive (63680)Indication: Chronic pancreatitis On: 07-Lws-721699:51 Request Ferritin (42386)Indication: Anemia On: 12-Tej-042579:51 Request Iron (70469)Indication: Anemia On: 07-Zae-138148:51 Request Vitamin B-12 (cyanocobalamin) (07317)Indication: Other vitamin B12 deficiency anemia On: 01-Oph-244310:51 Request Lipid Panel (12238)Indication: Malabsorption syndrome On: 53-Oaj-241817:39 Request Sed Rate Erythrocyte (15281)Indication: Chronic pancreatitis On: :35 Request CBC, Platelets & Auto Diff (74966)Indication: Chronic pancreatitis On: :35 Request Magnesium (60582)Indication: Chronic pancreatitis On: :35 Request Lipase (79380)Indication: Chronic pancreatitis On: :35 Request Amylase (39216)Indication: Chronic pancreatitis On: :35 Request Metabolic Panel, Comprehensive (20858)Indication: Chronic pancreatitis On: :35 Request CBC (Auto) (15379)Indication: Abdominal pain, acute, generalized On: 05-Wtc-017573:29 Request Metabolic Panel, Comprehensive (03310)Indication: Abdominal pain, acute, generalized On: 83-Kgk-473800:29 Request Methylmalonic acid, serum 09388Hqouohvnmm: Other vitamin B12 deficiency anemia On: 02-Khl-502039:29 Request CULTURE, SPUTUM (74744)Indication: Cough On: 3-Cua-431511:42 Request Lipase (69472)Indication: Acute pancreatitis On: 6-Zpl-394828:59 Request Amylase (69158)Indication: Acute pancreatitis On: 9-Urh-212969:59 Request DESIRAE (ANTINUCLEAR ANTIBODY) (54341)Indication: Pain in unspecified joint On: 6-Nvl-807168:48 Request C-REACTIVE PROTEIN (69678)Indication: Pain in unspecified joint On: 7-Ojh-862204:48 Request CBC WITH MANUAL DIFF (96993)Indication: Pain in unspecified joint On: 7-Zaz-957272:48 Request METABOLIC PANEL, COMPREHENSIVE (12571)Indication: Pain in unspecified joint On: 9-Zsj-616952:48 Request RHEUMATOID FACTOR-QUANT (65196)Indication: Pain in unspecified joint On: 3-Fgi-235529:48 Request SED RATE ERYTHROCYTE (04361)Indication: Pain in unspecified joint On: 5-Wjh-056629:48 Request TSH (72931)Indication: Pain in unspecified joint On: 2-Fkb-771033:48 Request GRETTA CULTURE-OTHER (64161)Indication: Pharyngitis, acute On: 62-Ada-976623:12 Request Rapid Strep Test, Office (05767)Indication: Pharyngitis, acute On: 67-Xqt-801964:12 Request Comments: negative VITAMIN D, 1, 25-DIHYDROXY (81867)Indication: Chronic pancreatitis On: 98-Lyt-823456:46 Request Vitamin B-12 (cyanocobalamin) ([id number])Indication: Other vitamin B12 deficiency anemia On: 99-Wrh-129156:43 Request Lipase (61711)Indication: Chronic pancreatitis On: 47-Lwu-815170:35 Request Amylase (80177)Indication: Chronic pancreatitis On: 09-Awu-081971:34 Request CBC (Auto) ([id number])Indication: Chronic pancreatitis On: 51-Efq-147482:34 Request Metabolic Panel, Comprehensive ([id number])Indication: Chronic pancreatitis On: 10-Tzh-801176:34 Request Lipid Panel ([id number])Indication: Chronic pancreatitis On: 73-Xrg-822060:34 Request Comments: standing order every 3 months Metabolic Panel, Comprehensive ([id number])Indication: Edema On: 37-Fmy-902036:13 Request CBC, Platelets & Auto Diff (50395)Indication: Edema On: 16-Vkb-052223:13 Request PTT (Activated Partial Thromboplastin Time) ([id number])Indication: Edema On: 34-Prk-300015:12 Request PT (Prothrobim Time) ([id number])Indication: Edema On: 01-Kdc-842519:12 Request Lipase (10665)Indication: pancreatitis On: :32 Request Amylase (90168)Indication: pancreatitis On: :32 Request CBC (Auto) ([id number])Indication: pancreatitis On: :32 Request Metabolic Panel, Comprehensive (50247)Indication: pancreatitis On: :32 Request Metabolic Panel, Comprehensive ([id number])Indication: Fever On: 09-Rau-093767:57 Request GRETTA CULTURE-BLOOD ([id number])Indication: Fever On: 07-Noj-944830:56 Request Comments: one from peripheral GRETTA CULTURE-BLOOD ([id number])Indication: Fever On: 41-Mtl-771134:56 Request Comments: one from port Sed Rate Erythrocyte ([id number])Indication: Fever On: 01-Eyw-551986:56 Request CBC, Platelets & Auto Diff ([id number])Indication: Fever On: :56 Request Urinalysis, Office (02076)Indication: Fever On: 96-Oob-010072:56 Request GRETTA CULTURE-OTHER ([id number])Indication: Fever On: 3-Dln-808978:53 Request Rapid Strep Test, Office (71609)Indication: Fever On: :52 Request CBC, Platelets & Auto Diff (07100)Indication: Chronic pancreatitis On: :46 Request Lipase (08450)Indication: Chronic pancreatitis On: :46 Request Amylase (42535)Indication: Chronic pancreatitis On: :46 Request Metabolic Panel, Comprehensive ([id number])Indication: Chronic pancreatitis On: 6-Isj-603207:46 Request FERRITIN ([id number])Indication: Anemia On: 2-Oiy-784784:22 Request VITAMIN B-12 (CYANOCOBALAMIN) (52837)Indication: Other vitamin B12 deficiency anemia On: 9-Bsx-348731:22 Request LIPASE ([id number])Indication: Acute pancreatitis On: :22 Request ALBUMIN SERUM ([id number])Indication: Acute pancreatitis On: :22 Request CBC (AUTO) ([id number])Indication: Acute pancreatitis On: 22-Vwy-979855:21 Request METABOLIC PANEL, BASIC ([id number])Indication: Abnormal blood chemistry On: 04-Qzk-001448:21 Request Planned Encounters Medical; [facility] (Doctor) - On: 01-May-2018 13:30 [facility] Dima DURAN, Sarah Pizano MD, Sarah Rebollar Planned Procedures Flu Vaccine (Quadrivalent) On: 31-Mar-2018 Intent 70182Vt: COMFORT Gallegos Comments: Lot #:[id number] date: 4-15-81Fsvoaz given:0.5mlRoute: IMSite given:L DltdGiven by: ElaineVIS and ABN signed [employer] SCREENING DIGITAL TOMOSYNTHESIS On: 20-Dec-2017 Intent OF BREAST ([id number])By: Sarah Pizano MD, MD, Dana M DEXA SCAN AXIAL SKELETON On: 20-Dec-2017 Intent (29428)By: Sarah Pizano MD, MD, Dana M SCREENING DIGITAL TOMOSYNTHESIS On: 29-Apr-2017 Intent OF BREAST (08675)By: Sarah Pizano MD, MD, Dana M Flu Vaccine (Quadrivalent) On: 29-Apr-2017 Intent 32888Rw: Sarah Pizano MD Comments: lot: [id number]: 12/19/17ite/route: L kelin, IMamt: 0.5mlVIS and ABN signed when applicableChelsea, INTERNET E COMMERCE SPECIALIST Sarah Pizano MD CT - Abdomen & Pelvis (IV On: 01-Oct-2016 Intent Contrast Needed)By: Dima DURAN, Comments: attentinon pancrease follow up on kidney cyst. 07-20 creat 0.76 Sarah Ghosh MD Flu Vaccine (Quadrivalent) On: 17-May-2016 Intent 59191Hg: Sarah Pizano MD Comments: FLUlot: [id number]:11/17site:Lt deltoidroute:IMdose:.5mlDEMICK, MA Sarah Pizano MD Aerosol Treatment (59961)By: On: 27-Apr-2016 Intent Kacey Rodriges LPN DEXA SCAN AXIAL SKELETON On: 09-Mar-2016 Intent ([id number])By: Sarah Pizano MD, MD, Dana M MAMMOGRAM, SCREENING, BOTH On: 09-Mar-2016 Intent BREAST (52923)By: Sarah Pizano MD, MD, Dana M DEXA SCAN AXIAL SKELETON On: 15-Jul-2015 Intent (39819)By: Sarah Pizano MD, MD, Dana M MAMMOGRAM, SCREENING, BOTH On: 15-Jul-2015 Intent BREAST (16511)By: Sarah Pizano MD, MD, Dana M Aerosol Treatment (40884)By: On: 08-Jul-2015 Intent Pamella Saavedra CNP Aerosol Treatment (63863)By: On: 08-Jul-2015 Intent Slarb TUBE BACKER, Kacey XR HIP RIGHT COMPLETE (40907)By: On: 30-Jun-2015 Intent Sarah Pizano MD, MD, Comments: right hip Sarah Rebollar Radiology - PelvisBy: Dima On: 24-Jun-2015 Intent Sarah DURAN MD, Dana M Comments: and right hip xray Venous Doppler - RightBy: On: 24-Jun-2015 Intent Sarah Pizano MD, MD, Comments: leg Sarah Rebollar Flu Vaccine (Quadrivalent) On: 15-Apr-2015 Intent 97780Ql: Sarah Pizano MD Comments: lot [id number]: 01/01/2016site/route L kelin, IMamt 0.5mlVIS and ABN signed when applicableHellenlsmadeleine CMA4 Sarah Pizano MD Radiology - ChestBy: Quentin ARGUETA, On: 07-Feb-2015 Intent Adeola Aerosol Treatment (42265)By: On: 07-Feb-2015 Intent Ailyn Aguilar Solu -Medrol Injection, 125 mg On: 05-Feb-2015 Intent (J2930)By: Pamella Saavedra CNP Comments: lot:[id number]:route:IMdose:125MGsite: R glutGiven by: FOX Angeles Solu -Medrol Injection, 125 mg On: 04-Feb-2015 Intent (J2930)By: Pamella Saavedra CNP Aerosol Treatment (02431)By: On: 04-Feb-2015 Intent Pamella Saavedra CNP MAMMOGRAM, SCREENING, BOTH On: 14-Jan-2015 Intent BREAST (25084)By: Sarah Pizano MD, MD, Dana M Prevnar 13 (49354)By: Dima On: 16-Jul-2014 Intent Sarah DURAN MD, Dana M ADMINISTRATION OF INFLUENZA On: 22-Apr-2014 Intent VIRUS VACCINE (G0008)By: Sarah Pizano MD, MD, Dana M FLU VAC, SPLIT, >3 YEARS, On: 22-Apr-2014 Intent INTRAMUSC (07929)By: Dima DURAN, Comments: Lot #:[id number] date:mount given:0.5mlRoute: IMSite given:left deltoid Given by: Sarah Mota MD Phenergan Injection, up to 50 mg On: 12-Dec-2013 Intent (J2550)By: Pamella Saavedra CNP MAMMOGRAM, SCREENING, BOTH On: 25-Sep-2013 Intent BREASTS ([id number])By: Sarah Pizano MD, MD, Dana M Eprescribed prescriptions On: 25-Sep-2013 Intent (G8553)By: Sarah Pizano MD, MD, Dana M Aerosol Treatment (63688)By: On: 05-Sep-2013 Intent [address]ella Saavedra CNP CT - Abdomen & Pelvis (IV On: 04-Jun-2013 Intent Contrast Needed)By: Sarah Pizano MD, MD, Dana M DXA, BONE DENSITY, AXIAL On: 04-Jun-2013 Intent SKELETON (06914)By: Dima DURAN, Comments: postmenapausal Sarah Ghosh MD MAMMOGRAM, SCREENING, BOTH On: 04-Jun-2013 Intent BREASTS (47948)By: Sarah Pizano MD, MD, Dana M Pulse Oximetry (25797)By: On: 04-Jun-2013 Intent COMFORT Gallegos Eprescribed prescriptions On: 14-May-2013 Intent (G8553)By: Melba Malloy ELECTROCARDIOGRAM, COMPLETE On: 26-Dec-2012 Intent (ECG) (13176)By: Sarah Pizano MD, MD, Dana M Eprescribed prescriptions On: 26-Dec-2012 Intent (G8553)By: Makenzie Allred LPN MAMMOGRAM, SCREENING, BOTH On: 24-Aug-2012 Intent BREASTS (16720)By: Sarah Pizano MD, MD, Dana M Pulse Oximetry (62182)By: On: 29-Jun-2012 Intent COMFORT Gallegos Radiology - Chest- PA and LatBy: On: 01-Jun-2012 Intent Sofia Younger DO Eprescribed prescriptions On: 01-Jun-2012 Intent (G8553)By: Kim Garces LPN FLU VAC, SPLIT, >3 YEARS, On: 28-Apr-2012 Intent INTRAMUSC (98727)By: Balaji, Comments: Lot:[id number]:630.13Dose:prefilledRoute:IMSite:L DltdGiven By:BARRY Garcia IMMUNIZ ADMNIN, 1 VAC, On: 28-Apr-2012 Intent SNGL/COMBO (35815)By: Radha Carpio TDAP VACCINE >7 IM (58683)By: On: 24-Nov-2011 Intent Long Makenzie ABBOTT Comments: Lot #[id number]- 11.13Site- L arm, ImDose prefilledgiven by: Makenzie MAMMOGRAM, SCREENING, BOTH On: 01-Nov-2011 Intent BREASTS (80975)By: Dima DURAN, Sarah Pizano MD, Sarah Rebollar Aerosol Treatment (95038)By: On: 14-Oct-2011 Intent Sofia Younger DO Comments: [...] SPLIT, >3 YEARS, On: 20-Apr-2011 Intent INTRAMUSC (58735)By: Cayden Comments: Lot #[id number]-7/30/12Site-left deltoidgiven by: Jared Rodarte LPN LPN, Chery IMMUNIZ ADMNIN, 1 VAC, On: 20-Apr-2011 Intent SNGL/COMBO (44187)By: Chery Rodarte LPN B 12 Injection, 1000 mcg On: 22-Mar-2011 Intent (J3420)By: COMFORT Gallegos DRAIN/INJECT MAJOR JOINT OR On: 22-Mar-2011 Intent BURSA ()By: COMFORT Gallegos Comments: Lot #:[id number] date: given:2ml Route: intra articular Site given:bilateral knees Given by: Dr. Pizano Pulse Oximetry (51167)By: Quentin On: 19-Mar-2011 Intent VASCULAR NEUROLOGIST, Adeola Aerosol Treatment (12059)By: On: 19-Mar-2011 Intent Ciesa VASCULAR NEUROLOGIST, Adeola DRAIN/INJECT MAJOR JOINT OR On: 12-Mar-2011 Intent BURSA ()By: COMFORT Gallegos Comments: Lot #:[id number] date: given:2ml Route: intra articular Site given:bilateral knees Given by: Dr. Pizano DRAIN/INJECT MAJOR JOINT OR On: 04-Mar-2011 Intent BURSA ()By: COMFORT Glalegos Comments: Lot #:[id number] date: given:2mlRoute: intra articular Site given:Bilateral knees Given by: Dr. Pizano injection #1 Kenalog Injection, 10 mgm On: 08-Feb-2011 Intent (J3301)By: Sarah Pizano MD Comments: x 8 Sarah Pizano MD Breast Ultrasound - LeftBy: On: 08-Feb-2011 Intent Sarah Pizano MD, MD, Dana M DXA, BONE DENSITY, AXIAL On: 02-Nov-2010 Intent SKELETON (12527)By: Sarah Pizano MD, MD, Dana M MAMMOGRAM, SCREENING, BOTH On: 02-Nov-2010 Intent BREASTS (07839)By: Sarah Pizano MD, MD, Dana M FLU VAC, SPLIT, >3 YEARS, On: 17-Jun-2010 Intent INTRAMUSC (59922)By: Mitchelluszsaskia Comments: Lot #[id number] 4PExp-4/11Site-right deltoidgiven by:LIBRADO TUBE BACKER, Chery IMMUNIZ ADMNIN, 1 VAC, On: 17-Jun-2010 Intent SNGL/COMBO (75262)By: Chery Rodarte LPN DXA, BONE DENSITY, AXIAL On: 30-Sep-2009 Intent SKELETON (88773)By: Dima DURAN, Sarah Pizano MD, Sarah Rebollar MAMMOGRAM, SCREENING, BOTH On: 30-Sep-2009 Intent BREASTS (10963)By: Dima DURAN, Sarah Pizano MD, Sarah Rebollar B 12 Injection, 1000 mcg On: 30-Sep-2009 Intent (J3420)By: COMFORT Gallegos Pulse Oximetry (14086)By: Quentin On: 09-Apr-2009 Intent VASCULAR NEUROLOGIST, Adeola Aerosol Treatment (13296)By: On: 09-Apr-2009 Intent Ciesa VASCULAR NEUROLOGIST, Adeola FLU VAC, SPLIT, >3 YEARS, On: 26-Mar-2009 Intent INTRAMUSC (91184)By: Lisa HERRON, Andie IMMUNIZ ADMNIN, 1 VAC, On: 26-Mar-2009 Intent SNGL/COMBO (17929)By: Lisa RN, Comments: Lot #: [id number] date: mount given: 0.5 mlRoute: IMSite given: left deltoidGiven by: SCAR Montenegro INJECTION, VITAMIN B-12 On: 07-Feb-2009 Intent CYANOCOBALAMIN, UP TO 1000 MCG Comments: Lot #[id number] date:mount given:1mlSite given: right deltoidGiven by:Wf. (Special Coverage Instructions Apply. See CIM: 45-4 and [facility]: 2049) (J3420)By: COMFORT Gallegos Pulse Oximetry (74626)By: Ceci On: 04-Dec-2008 Intent Rosa Maria AGUAYO Comments: post meaknnmio62% Aerosol Treatment (80722)By: On: 04-Dec-2008 Intent Fast Rosa Maria AGUAYO Comments: done-aw B 12 Injection, 1000 mcg On: 04-Dec-2008 Intent (J3420)By: Tonia Garcia Comments: Lot #[id number]-05/2010Site-right hqwnwnbIcev0913sec/1mlgiven by Debbie Lei LPN Pulse Oximetry (56430)By: On: 04-Dec-2008 Intent Tonia Garcia Comments: 91% [...] Intent (J3420)By: COMFORT Gallegos Comments: Lot #[id number]-05/2010Site-right yxaimzjOinj0933hlq/1mlgiven by Debbie Lei LPN DRAIN/INJECT MAJOR JOINT OR On: 09-Oct-2008 Intent BURSA ()By: COMFORT Gallegos Comments: Lot #:[id number] date:mount given:Route: intra articular Site given:bilateral knees Given by: Dr. Pizano DRAIN/INJECT MAJOR JOINT OR On: 01-Oct-2008 Intent BURSA ()By: COMFORT Gallegos Comments: Lot #:[id number] date:mo given:2.5ml Route:intra-articular Site given:Bilateral knees Given by: Dr. Pizano DRAIN/INJECT MAJOR JOINT OR On: 24-Sep-2008 Intent BURSA ()By: COMFORT Gallegos Comments: Lot #:[id number] date: Amount given:2.5 mlRoute: intra-articular Site given:bilateral knees Given by: Dr. Pizano DRAIN/INJECT MAJOR JOINT OR On: 17-Sep-2008 Intent BURSA ()By: COMFORT Gallegos Comments: Lot #:[id number] date:mount given:2 grams Route: Intra articular Site given: bilateral knees Given by: Dr. Pizano DRAIN/INJECT MAJOR JOINT OR On: 13-Sep-2008 Intent BURSA ()By: COMFORT Gallegos Comments: Lot #:[id number] date:05-10 Amount given:2.5MLRoute: INTRA ARTICULAR Site given:bilateral knees Given by: Dr. Pizano B 12 Injection, 1000 mcg On: 10-Sep-2008 Intent (J3420)By: COMFORT Gallegos B 12 Injection, 1000 mcg On: 29-Jul-2008 Intent (J3420)By: Denise Collazo Comments: Amt: 1mlLot: [id number]: 02/10Route: IMSite: right deltTolerated: wellGiven By: SCAR Sood Pulse Oximetry (13409)By: Quentin On: 29-Jul-2008 Intent VASCULAR NEUROLOGIST, Adeola Aerosol Treatment (35500)By: On: 29-Jul-2008 Intent Ciesa VASCULAR NEUROLOGIST, Adeola Aerosol Treatment (93344)By: On: 16-Jul-2008 Intent Sofia Younger DO Comments: done-awnoise resolved and much more air exchange Pulse Oximetry (70991)By: Carisa On: 16-Jul-2008 Sofia Davis DO Comments: 93% Solu- Medrol Injection, 125mg On: 16-Jul-2008 Intent (J2930)By: Sofia Younger DO Comments: Lot #[id number]-6/11Site-right skyXtlx6tz/125mggiven by Debbie Lei LPN B 12 Injection, 1000 mcg On: 30-Apr-2008 Intent (J3420)By: Prema Lei Comments: Lot #[id number]-/10Site-right lzjuzojUoqz1puhdgup by Debbie Lei LPN DXA, BONE DENSITY, AXIAL On: 30-Apr-2008 Intent SKELETON (71586)By: Dmia DURAN, Comments: estrogen def Sarah Pizano MD, Sarah Rebollar MAMMOGRAM, SCREENING, BOTH On: 30-Apr-2008 Intent BREASTS (49151)By: Dima DURAN, Sarah Pizano MD, Sarah Rebollar B 12 Injection, 1000 mcg On: 27-Mar-2008 Intent (J3420)By: Tonia Garcia Comments: Lot #:[id number] date:mount given:.1mlRoute: IMSite given:left deltoidGiven by: EDEN Salcido Pulse Oximetry (83369)By: On: 27-Mar-2008 Intent Tonia Garcia Comments: 96% Pulse Oximetry (19249)By: On: 14-Mar-2008 Intent COMFORT Gallegos B 12 Injection, 1000 mcg On: 06-Feb-2008 Intent (J3420)By: Pamella Saavedra CNP Comments: Lot #:[id number] date: Amount given:1ml Route: IMSite given:left deltoid Given by: billy Solu -Medrol Injection, 125 mg On: 06-Feb-2008 Intent (J2930)By: Pamella Saavedra CNP Comments: Lot #:[id number] date:mount given:125mgRoute: IMSite given:left gluteal Given by: aretha Pulse Oximetry (24808)By: Quentin On: 06-Feb-2008 Intent Pamella ARGUETA Aerosol Treatment (80445)By: On: 06-Feb-2008 Intent Pamella Saavedra CNP B 12 Injection, 1000 mcg On: 21-Dec-2007 Intent (J3420)By: Ledy Nogueira Comments: given in right deltoid, lot#[id number], exp.3.10 >Wf. B 12 Injection, 1000 mcg On: 03-Oct-2007 Intent (J3420)By: Pamella Saavedra CNP Pulse Oximetry (57489)By: Quentin On: 03-Oct-2007 Intent Pamella ARGUETA Aerosol Treatment (30393)By: On: 03-Oct-2007 Intent Pamella Saavedra CNP Pulse Oximetry (66942)By: Lenny, On: 16-Aug-2007 Intent Cira Aerosol Treatment (07561)By: On: 16-Aug-2007 Intent Sofia Younger DO Comments: no wheeze and better air exchange Solu- Medrol Injection, 125mg On: 16-Aug-2007 Intent (J2930)By: Sofia Younger DO Comments: given in left buttocks.lot # [id number]\Exp 02/2010 SPECIMEN HNDLNG/TRNSPRT, OFFC > On: 16-Aug-2007 Intent LAB (47362)By: Sofia Younger DO B 12 Injection, 1000 mcg On: 01-Aug-2007 Intent (J3420)By: Prema Lei Comments: Lot #[id number]-05/12Site-left xwgihwoIzwt5kvjmxmn by Debbie Lei LPN CT - ChestBy: Sarah Pizano MD On: 01-Aug-2007 Intent Sarah Pizano MD FLU VAC, SPLIT, >3 YEARS, On: 18-Apr-2007 Intent INTRAMUSC (45371)By: Sarah Pizano MD, MD, Dana M IMMUNIZ ADMNIN, 1 VAC, On: 18-Apr-2007 Intent SNGL/COMBO (45867)By: Sarah Pizano MD, MD, Dana M B [...] HNDLNG/TRNSPRT, OFFC > On: 10-Oct-2006 Intent LAB (96050)By: Sarah Pizano MD, MD, Dana M Solu -Medrol Injection, 125 mg On: 16-Sep-2006 Intent (J2930)By: Sarah Pizano MD Comments: lot # [id number] exp 04-[address] gluteal by Sarah Chacon lpn, MD Pulse Oximetry (41104)By: On: 16-Sep-2006 Intent Sarah Pizano MD, MD, Dana M Aerosol Treatment (38895)By: On: 16-Sep-2006 Intent Sarah Pizano MD, MD, Dana M Pulse Oximetry (20868)By: On: 04-Aug-2006 Intent Sarah Pizano MD, MD, Dana M EKG (63193)By: Sarah Pizano MD On: 08-Jul-2006 Intent Sarah Morfin MD IMMUNIZ ADMNIN, 1 VAC, On: 06-May-2006 Intent SNGL/COMBO (16784)By: Ramiro ABBOTT, Peg FLU VAC, SPLIT, >3 YEARS, On: 06-May-2006 Intent INTRAMUSC (61442)By: Ramiro ABBOTT, Comments: Lot #:Expiration date:Amount given:Route: imSite given:r armGiven by: galina golden lpn Peg Echo CompleteBy: Dima DURAN, On: 19-Apr-2006 Intent Sarah Ghosh MD CT - Abdomen & PelvisBy: Dima On: 19-Apr-2006 Intent Sarah DURAN MD, Dana M Comments: ?obstruction, pancreatitis, attention kidney cyst send to [facility] gastrologist [facility] Planned Medications INJECTION, METHYLPREDNISOLONE SODIUM SUCCINATE, UP TO 125 MG Ordered: 14-Oct-2011 Pending Sofia Younger DO INJECTION, METHYLPREDNISOLONE SODIUM SUCCINATE, UP TO 125 MG Ordered: 04-Feb-2015 Pending Ciesa VASCULAR NEUROLOGIST, Adeola INJECTION, METHYLPREDNISOLONE SODIUM SUCCINATE, UP TO 125 MG Ordered: 05-Feb-2015 Pending Ciesa VASCULAR NEUROLOGIST, Adeola INJECTION, TRIAMCINOLONE ACETONIDE, NOT OTHERWISE SPECIFIED, [...] Advance Directives Name Dates Details Immunization Registry [place] - Effective on Effective: 29-Apr-201704/29/2017. 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 Note for Fever: pt had epidural [id number] Diagnosis: Dehydration(276.51), Abdominal Pain,Generalized (789.07), FEVER (780.6) [...] care visit: swelling better with aldactone, reviewed reimbursement consultant's letter use compression, work up from [...] weekend , bite by flies, camp in [facility], no fever abd pain still hit [...] chemistry (790.6) [facility] Payers [facility] Donovan COBIAN; junie guarantor
--- OUTSIDE RECORDS SUMMARY | 2018-08-02 06:06 | XMS RPT_ITS | Continuity of Care Document ---
:1955 Author Organization [facility] Address [address] [place] [address] Phone Care Team Providers Name Role Phone [...] on singulari. proair rescue. doingin home aerosol. been off dulera and signs and symptoms will get back on. Status: Active BMI 34.0-34.9,adult (Z68.34, V85.34) Status: Active BMI 35.0-35.9,adult (Z68.35, V85.35) Status: Active Cervical radiculopathy (M54.12, 723.4) Comments: MRI 4-11 DDD moderate bulges. now seeing Dr. romero. injection did help 10-17 thinking about ablation. use norco up to tid not all time. ambien on too talk about do not combine. Status: Active Chronic pain (G89.29, 338.29) Comments: [...] from Current non-smoker) (Z78.9, V49.89) Status: Active Deliveries (Parity) Comments: 3, Term Status: Active Deterioration of spinal disc of lower back (M51.37, 722.52) Comments: throught whole spine did back injection epidural cervical.doing every 6 months. ariel leaving to [place]. reconmmend Dr. romero and i talk to him. kept meds same. stillhaving pain he is going try facet injetions. looking to wean. cervical injection help 10-17 ROM and arm pain. thoracic injections that helped. lumbar ride side nerve ablation 10-18 did think help some will get left side down next week Status: Active Dysthymic (F34.1, 300.4) Comments: stable right now rate more mild anxiety think related to pain overall good. velma from where came from Status: Active Fibrocystic breast disease (N60.19, 610.1) [...] Menopausal flushing) (N95.1, 627.2) Comments: ? sugar willlcheck BS ? steriods Status: Active Hyperlipidemia (E78.5, 272.4) Status: Active Iron deficiency anemia due to dietary causes (D50.8, 280.1) Comments: in past see Dr. malik. tobi now better with IV iron and feel so much better. stable now rechecking ferritin now and low was off IV iron for couple years but now low again so will replace. rightnow st price to use mal absorption as secondary diagnosis to get IV Venofer Covered Status: Active Migraine (G43.909, 346.80) Comments: stable Status: Active Nonsmoker (Z78.9, V49.89) Status: Active Obesity, unspecified (E66.9, 278.00) Status: Active Osteoarthritis (M19.90, 715.90) Comments: knee TKA bilateral really helped Status: Active OTHER AND UNSPECIFIED POSTSURGICAL NONABSORPTION (K91.2, 579.3) Status: Active Other vitamin B12 deficiency anemia (D51.8, 281.1) Status: Active Perioral dermatitis (L71.0, 695.3) Comments: ? cause of pimples in chin ? just picking will do cleocin gel she does not want oral atb velma withwarfarin. Status: Active Personal history of venous thrombosis [...] then check access. ? 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 sent ramya. clear with steriods and keep up with regularly testing. went back to martin getlaurie PFTS 11-15. adviar prn not really need. recheck good with PFTS 3-17 Status: Active S/P gastric bypass (Z98.84, V45.86) Status: Active Sleep disorder (G47.9, 780.50) Comments: use sleepy time work well will alternate with ambien Status: Active Tremor (R25.1, 781.0) Comments: had for years. not think worsen. not affect ADLS. she drop things alot think hands weaker. some she think lid weakness Status: Active Urgency incontinence (N39.41, 788.31) Status: Active Vitamin D deficiency, unspecified (E55.9, 268.9) Comments: otc vit d3 Status: Active Well woman exam (Renamed from Encounter for well woman exam) (Z01.419, V72.31) Comments: 03-09-16 here for [facility], not need pap, (had hysterectomy) due for mammo and bd. colonscopy 2007 good Status: Active Well woman exam (Renamed from Encounter for well woman exam) (Z01.419, V72.31) Comments: [facility]: 05-01-18 Mammo 03-21-18- DEXA 03-21-18-Colonoscopy 7-[address] Harrell - Annual Eye Examinations - TDAP 11/24/11 - Shingles not done will wait until new vaccine out. - Pneumo vacc 07/04 09/15 had bothpneumonia vaccines in life. Hep C good Status: Active Medications Name Dates Details ALBUTEROL SULFATE HFA, 108MCG/ACT (Inhalation Aerosol Soln) 1 Aerosol Soln for 0 days Refills: 0 Ordered:16-Sep-2006 Prema Lei Start : 16-Sep-2006 Active Comments:use regularlya t [...] 1 qd Active Comments:plus 1000IU Vitamin D3 Clindamycin Phosphate 1 % External Lotion 1 (one) Application apply daily for 0 days Quantity: 1 {Tube} Refills: 0 Ordered:01-May-2018 Sarah Pizano MD, MD, Dana M Start : 01-May-2018 Active Comments:if really expensive can use an equivalent Creon 94438 UNIT Oral Capsule Delayed Release Particles 2 (two) Capsule DR Part tid romel meals for 0 days Quantity: 540 {Capsule} Refills: 3 Ordered:09-May-2017 Sarah Pizano MD, MD, Dana M Start : 09-May-2017 Active Cymbalta 60 MG Oral Capsule Delayed Release Particles [address] Part QHS / HS for 0 days Quantity: 90 {Capsule} Refills: 3 Ordered:09-May-2017 Sarha Pizano MD, MD, Dana M Start : [...] MD, Dana M Start : 30-Nov-2016 Active Fairmont 5-325 MG Oral Tablet 1 (one) Tablet [...] Dana M Start : 17-Apr-2015 Active Comments:Dr. Martin Wren 10 MG Oral Tablet 1 (one) Tablet [...] Start : 14-Apr-2018 Active Vitamin D (Ergocalciferol) 38864 UNIT Oral Capsule 1 (one) capsule twice [...] MD, Dana M Start : 06-Feb-2018 Active Comments:[id number] called to [facility] ADVAIR DISKUS, 100-50MCG/DOSE [...] End : 24-Aug-2012 Inactive CALCIUM 500/VITAMIN D, 009-129RL-NCLD (Oral Tablet) 1 (one) Tablet daily for [...] : 09-Mar-2016 End : 04-Jun-2016 Inactive Drisdol 37638 UNIT Oral Capsule 1 Capsule two times [...] : 21-Dec-2007 End : 14-Mar-2008 Inactive Nystatin 316242 UNIT/GM External Powder 1 Powder bid for [...] days Quantity: 1 {Package} Refills: 0 Ordered:08-Jul-2015 Slarb Shawn ABBOTTa Start : 24-Jun-2015 End : 08-Jul-2015 Discontinued [...] days Quantity: 180 {Tablet} Refills: 3 Ordered:15-Oct-2014 Dima DURAN, Sarah Hernandez MD Start : 15-Oct-2014 End : 15-Oct-2014 Discontinued [...] Comments: 33.79 Status: Resolved as of 04-Apr-2017 BMI 36.0-36.9,adult (Z68.36, V85.36) Status: Resolved as of 01-May-2018 Breast cancer screening (Z12.39, V76.10) Status: Inactive as of 31-Jan-2015 Bronchitis (J40, 490) 12-Oct-2010 Status: Inactive as of 24-Aug-2012 Bronchitis (J40, 490) Status: Inactive as of 20-Feb-2016 Bronchitis, acute (J20.9, 466.0) Status: Resolved as of 09-Dec-2008 BRONCHITIS, NOT SPECIFIED ACUTE OR CHRONIC (490.) (J40, 490) Status: Inactive as of 04-Jun-2016 Burn (T30.0, 949.0) Comments: better. Status: Resolved as of 04-Apr-2017 Chest pain at rest (R07.9, 786.50) Comments: had stress and echo on hospital at rest but is a sternal pressure and family history CAD. ? need CTA or cath will send to cardio for surther recommendation. 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 george leaving to [place]. reconmmend Dr. romero and i talk to him. kept meds same. stillhaving pain he is going try facet injetions. looking to wean. injection help 10-17 ROM and arm pain. Status: Resolved as of 29-Apr-2017 Degenerative Disc Disease - Lumbar (722.52) Status: Resolved as of 01-May-2018 Dehydration (E86.0, 276.51) 09-Aug-2011 Status: Inactive as of 24-Aug-2012 Dermatitis (L30.9, 692.9) Status: Inactive as of 20-Feb-2016 Diarrhea (R19.7, 787.91) Status: Inactive as of 24-Aug-2012 Dyspnea, unspecified (R06.00, 786.09) 09-Aug-2011 Status: Inactive as of 24-Aug-2012 EBV positive mononucleosis syndrome (B27.00, 075) Status: Resolved as of 01-May-2018 Edema (R60.9, 782.3) Comments: better with aldactonestable wrote for jobst stocking Status: Inactive as of 24-Aug-2012 Encounter for central line care (Z45.2, V58.81) Comments: see princess and he wants her to see Dr. malik to see about the coumadin and proph. Dr. gillette looking into if need chagne port. leave up to Dr. gillette about this. Status: Inactive as of 22-Apr-2014 Encounter for screening mammogram for breast cancer (Renamed from Encounter for screening mammogram for malignant neoplasm of breast) (Z12.31, V76.12) Status: Resolved as of 01-May-2018 Epigastric pain (R10.13, 789.06) Comments: likely pancreatitis on and off will check CTscan Status: Inactive as of 27-Dec-2016 Fatigue (R53.83, 780.79) Comments: worsen. right now iron low adn off vit D will get back on vit d and do venofer because not able to absorb. Status: Inactive as of 27-Dec-2016 Fever (R50.9, 780.60) Comments: right now low grade willfollow all cx negative esr normal if over 100.5 willcall. Status: Resolved as of 01-May-2018 Flu-like symptoms (R68.89, 780.99) Status: Resolved as of 04-Apr-2017 Flu-like symptoms (R68.89, 780.99) Status: Inactive as of 20-Feb-2016 Flu-like symptoms (R68.89, 780.99) Status: Inactive as of 04-Jun-2016 Hypoglycemia (E16.2, 251.2) Status: Inactive as of [...] from Interstitial lung changes) Comments: saw Dr. larose--PFTS better now. 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 check doppler. will check hip. seen [...] 27-Dec-2016 Unspecified Diagnosis Status: Inactive as of 31-Jan-2015 Unspecified Diagnosis Status: Inactive as of 24-Aug-2012 Unspecified Diagnosis Status: Inactive as of 24-Aug-2012 Unspecified Diagnosis Status: Inactive as of 30-Sep-2009 Unspecified Diagnosis Status: Inactive as of 20-Feb-2016 Unspecified Diagnosis Status: Inactive as of 09-Dec-2008 Unspecified Diagnosis Status: Resolved as of 01-May-2018 Vulvar irritation (N90.89, 624.8) Comments: use steriod cream helps. if stop comes back and recommend biopsy Status: Inactive as of 20-Feb-2016 Wheezing (R06.2, 786.07) Status: Inactive as of 04-Jun-2016 WWV V73.21 TAHBSO (Renamed from WWV-TAHBSO) Comments: due for mammo. colonscopy 01-11 Status: Inactive as of 25-Mar-2014 Yeast infection (B37.9, 112.9) Status: Resolved as of 04-Apr-2017 yeast infection 09-Aug-2011 Comments: under breastpowder keeps away Status: Inactive as of 09-Aug-2011 Yeast infection of the vagina (B37.3, 112.1) Status: Resolved as of 04-Apr-2017 Procedures Procedure Dates Details [place], [place] (43838) Date: 01-Oct-2016 Cancelled Cholecystectomy Completed GASTRIC BYPASS, OPEN (08873) Completed Comments: 1997, Dr. lindsay did for recurrent pancreatitis, this is what helped her. Hysterectomy; Abdominal Completed JEJUNOSTOMY (76525) Completed Comments: 1995 closed 1997 when had gastric bypass, because of pancreatitis and was tube feed for 2 years Date Value Details 21-Mar-2018 Dexa Bone Density Study Result: Comments: See Note; NOTES: [facility] Imaging Services [address] [place] [address] Dexa Bone Density Study MR#: [id number] Acct: [id number] Name: JOSE J COBIAN Rep #: [id number] : 1955 F 63 From: Bartolome Patel MD PCP: Sarah Pizano MD Status: REG CLI Study: Dexa Bone Density Study Date of Exam: 03/21/18 Exam# [id number] Ordering Dr: Sarah Pizano MD STUDY: D [...] Bartolome Patel MD at 15:07 EDT Tel [phone], Service support , CC: Sarah Pizano MD Tax Manager: Signed 21-Mar-2018 SCREENING MAMM (CAD), BILAT Result: Comments: See Note; NOTES: [facility] Imaging Services [address] [place] [address] SCREENING MAMM (CAD), BILAT MR#: [id number] Acct: [id number] Name: JOSE J COBIAN Rep #: [id number] : 1955 F 63 From: Bartolome Patel MD PCP: Sarah Pizano MD Status: [facility] Study: SCREENING MAMM (CAD), BILAT Date of Exam: 03/21/18 Exam# [id number] Ordering Dr: Sarah Pizano MD MAMMOGRAPHY - [...] biopsy of a clinically suspicious abno rmality. [id number] Electronically Signed: Bartolome Patel MD at 13:21 EDT Tel [phone], Service support , CC: Sarah Pizano MD Tax Manager: Signed 07-Nov-2017 Operative Report Result: Comments: See Note; NOTES: [facility] Medical Records Department [address] [place] [address] Operative Report 11/07/17 1027 MR#: [id number] Acct: [id number] Name: JOSE J COBIAN Rep #: [id number] : 1955 62 From: Bubba Romero MD PCP: Sarah Pizano MD Status: REG SDC Y Location: [place] [address] Problem List (1) Disc disease, degenerative, lumbar [...] 4 Views Result: Comments: See Note; NOTES: [facility] Imaging Services [address] [place] [address] L/S Spine Min 4 Views MR#: [id number] Acct: [id number] Name: JOSE J COBIAN Rep #: [id number] : 1955 F 62 From: Bartolome Patel MD PCP: Sarah Pizano MD Status: [facility] Study: L/S Spine Min 4 Views Date of Exam: 11/07/17 Exam# [id number] Ordering Dr: Bubba Romero MD PROCEDURE : [...] Bartolome Patel MD at 11:01 EDT Tel [phone], Service support , CC: Sarah Pizano MD; Bubba Romero Tax Manager: Signed 04-Oct-2017 Cardiology Visit Report Result: Comments: See Note; NOTES: [facility] [address] [place] [address] OFFICE VISIT Date of Service: 10/03/17 MR#: [id number] Acct: [id number] Name: JOSE J COBIAN Rep #: [id number] : 1955 Provider: Chanel Shaw Age/Sex: 62/F Location: [facility] Status: Signed HPI HPI Details: JOSE [...] Intake Visit Reasons: NOT SEEN SINCE 05/2016 Finishing Manager Required: No Accompanied by: Is patient in [...] mg PO DAILY@0800 10/20/15 [History Confirmed 10/03/17] [place] codone Bitart/Apap 5-325 [Fairmont 5/325] 1 tab PO Q4H PRN PRN 02/22/16 [History Confirmed 09/27/17] Lipase/Protease/Amylase [Saige Cole 24,000 Units Capsule] 48,000 units PO TIDCM [...] discussed with Dr. Cooper in Dr. Ron mcdowell, he agrees with plan of care. Thank [...] prior to saving. Follow Up 1 Year (DJN) Coding Level of Care Cod e Off [...] Operative Report Result: Comments: See Note; NOTES: [facility] Medical Records Department [address] [place] [address] Operative Report 09/05/17 0944 MR#: [id number] Acct: [id number] Name: JOSE J COBIAN Rep #: [id number] : 1955 62 From: Bubba Romero MD PCP: Sarah Pizano MD Status: REG [facility] Y Location: [place] [address] Problem List (1) Lumbosacral spondylosis Status: Chronic [...] 4 Views Result: Comments: See Note; NOTES: [facility] Imaging Services [address] [place] [address] L/S Spine Min 4 Views MR#: [id number] Acct: [id number] Name: JOSE J COBIAN Rep #: [id number] : 1955 F 62 From: Bartolome Patel MD PCP: Sarah Pizano MD Status: [facility] Study: L/S Spine Min 4 Views Date of Exam: 09/05/17 Exam# [id number] Ordering Dr: Bubba Romero MD PROCEDURE : [...] Bartolome Patel MD at 9:02 EST Tel [phone], Service support , CC: Sarah Pizano MD; Bubba Romero Tax Manager: Signed 08-Aug-2017 Operative Report Result: Comments: See Note; NOTES: [facility] Medical Records Department [address] [place] [address] Operative Report 08/08/17 1408 MR#: [id number] Acct: [id number] Name: JOSE J COBIAN Rep #: [id number] : 1955 62 From: Bubba Romero MD PCP: Sarah Pizano MD Status: [facility] Y Location: [facility] Problem List (1) Lumbosacral radiculopathy Status: Chronic [...] 3 Views Result: Comments: See Note; NOTES: [facility] Imaging Services [address] [place] [address] Lumbar Spine 2 or 3 Views MR#: [id number] Acct: [id number] Name: JOSE J COBIAN Rep #: [id number] : 1955 F 62 From: Bartolome Patel MD PCP: Sarah Pizano MD Status: [facility] Study: Lumbar Spine 2 or 3 Views Date of Exam: 08/08/17 Exam# [id number] Ordering Dr: Bubba Romero MD P ROCEDURE: [...] Bartolome Patel MD at 11:32 EST Tel [phone], Service support , CC: Sarah Pizano MD; Bubba Romero Tax Manager: Signed 09-May-2017 Operative Report Result: Comments: See Note; NOTES: [facility] Medical Records Department [address] [place] [address] Operative Report 05/09/17 1348 MR#: [id number] Acct: [id number] Name: VIRAJ COBIANA Denise Rep #: [id number] : 1955 62 From: Bubba Romero MD PCP: Sarah Pizano MD Status: REG SDC Y Location: [place] [address] Report of Operation Date of Procedure: 05/09/17 [...] Bubba Romero MD CC: Sarah Pizano MD; Bubab Romero Signed 09-May-2017 Fluor Guidance for Spine Inj Result: Comments: See Note; NOTES: [facility] Imaging Services [address] [address] Fluor Guidance for Spine Inj MR#: [id number] Acct: [id number] Name: JOSE J COBIAN Rep #: [id number] : 1955 F 62 From: Bartolome Patel MD PCP: Sarah Pizano MD Status: [facility] Study: Fluor Guidance for Spine Inj Date of Exam: 05/09/17 Exam# [id number] Ordering Dr: Bubba Romero MD PROCEDURE: Caudal [...] Bartolome Patel MD at 14:03 EST Tel [phone], Service support , CC: Sarah leigh MD; Bubba Romero Tax Manager: Signed 29-Apr-2017 L/S Spine Min 4 Views Result: Comments: See Note; NOTES: [facility] Imaging Services [address] [place] [address] L/S Spine Min 4 Views MR#: [id number] Acct: [id number] Name: JOSE J COBIAN Rep #: [id number] : 1955 F 62 From: Feliberto Sim MD PCP: Sarah Pizano MD Status: REG CLI Study: L/S Spine Min 4 Views Date of Exam: 04/29/17 Exam# [id number] Ordering Dr: Lizeth Sanches STUDY: X-RAY - [...] , CC: Lizeth Sanches; Sarah Pizano MD Tax Manager: Signed 21-Mar-2017 Operative Report Result: Comments: See Note; NOTES: [facility] Medical Records Department [address] [place] [address] Operative Report 03/21/17 0841 MR#: [id number] Acct: [id number] Name: JOSE J COBIAN Rep #: [id number] : 1955 62 From: Bubba Romero MD PCP: Sarah Pizano MD Status: DEP [facility] Y Location: [facility] Problem List (1) Cervical spine degeneration Status: [...] up in approximately 2 weeks fo reevaluation. 03/21/17 09 <Electronically si gned by Bubba Romero MD> Date Bubba Romero MD CC: Sarah Pizano MD; Bubba Romero Signed 21-Mar-2017 Cerv Spine 4 or 5 Views Result: Comments: See Note; NOTES: [facility] Imaging Services [address] [place] [address] Cerv Spine 4 or 5 Views MR#: [id number] Acct: [id number] Name: JOSE J COBIAN Rep #: [id number] : 1955 F 62 From: Daniel Manzano DO PCP: Sarah Pizano MD Status: [facility] Study: Cerv Spine 4 or 5 Views Date of Exam: 03/21/17 Exam# [id number] Ordering Dr: Bubba Romero MD STUDY: X-RAY - CERVICAL SPINE REASON FOR EXAM: Female, 62 years old. Cervical block TECHNIQUE: 4 view(s) of the cervical spine were obtained. COMPARISON: None FINDINGS: Face t block was performed with 4 spot fluoroscopy images obtained. Total fluoroscopy time 14.7 seconds. Please see performing physician's report for further details ORD ER #: [id number] RAD/Cerv Spine 4 or 5 Views IMPRESSION: As above Electronically Signed: Daniel Manzano DO at 16:12 EDT Tel , Service support , CC: Sarah Pizano MD; Bubba Romero Tax Manager: Signed 17-Jan-2017 Operative Report Result: Comments: See Note; NOTES: [facility] Medical Records Department [address] [place] [address] Operative Report 01/17/17 1246 MR#: [id number] Acct: [id number] Name: JOSE J COBIAN Rep #: [id number] : 1955 61 From: Bubba Romero MD PCP: Sarah Pizano MD Status: DEP [facility] Y Location: [facility] Problem List (1) Cervical spine degeneration Status: [...] 5 Views Result: Comments: See Note; NOTES: [facility] Imaging Services [address] [place] [address] Verdana 4d Cerv Spine 4 or 5 Views MR#: [id number] Acct: [id number] Name: JOSE J COBIAN #: [id number] : 1955 F 61 From: Tonia Galvan MD PCP: Sarah Pizano MD Status: [facility] Study: Cerv Spine 4 or 5 Views Date of Exam: 01/17/17 Exam# [id number] Ordering Dr: Bubba Romero MD STUDY: X-RAY [...] Tonia Galvan MD at 16:36 EDT Tel [phone], Service support , CC: Sarah Pizano MD; Bubba Romero Tax Manager: Signed 09-Oct-2016 Abdomen/Pelvis WITH Contrast Result: Comments: See Note; NOTES: [facility] Imaging Services [address] [place] [address] Shiradana 4d Abdomen/Pelvis WITH Contrast MR#: [id number] Acct: [id number] Name: VIRAJ COBIAN Rep #: [id number] : 1955 F 61 From: Enrike Peres PCP: Sarah Pizano MD Status: REG CLI Study: Abdomen/Pelvis WITH Contrast Date of Exam: 10/09/16 Exam# [id number] Ordering Dr: Sarah Pizano MD STUDY: CT [...] at 9:47 EDT Tel , Service support [phone], CC: Sarah Pizano MD Tax Manager: Signed 23-Aug-2016 Operative Report Result: Comments: See Note; NOTES: [facility] Medical Records Department [address] [place] [address] Operative Report MR#: [id number] Acct: [id number] Name: JOSE J COBIAN Rep #: [id number] : 1955 61 From: Bubba Romero MD PCP: Sarah Pizano MD Status: [facility] DATE OF SERVICE: 08/09/2016 DATE OF PROCEDURE: [...] indicated. Bubba Romero MD T: NTS JOB: [id number] 08/23/16 1357 <Electronica lly signed by Bubba Romero MD> Date [facility]ubba Romero MD [facility] Signature (If Indicated): Date ____ CC: Sarah Pizano MD; Bubba Romero Date Dictated: 08/09/16 1311 Date Transcribed: 08/09/161310 Tax Manager: Signed 09-Aug-2016 Thoracic Spine 3 Views Result: Comments: See Note; NOTES: [facility] Imaging Services [address] [place] [address] Verdana 4d Thoracic Spine 3 Views MR#: [id number] Acct: [id number] Name: JOSE J COBIAN p #: [id number] : 1955 F 61 From: Azalia Fernandes MD PCP: Sarah Pizano MD Status: [facility] Study: Thoracic Spine 3 Views Date of Exam: 08/09/16 Exam# [id number] Ordering Dr: Bubba Romero MD JERO DY: X-RAY - THORACIC SPINE REASON FOR [...] at 1 2:18 EST , Service support [phone], CC: Sarah Pizano MD; Bubba Romero Tax Manager: Signed 01-Jun-2016 PT D/C of Non Returning Pt (1) Result: Comments: See Note; NOTES: [facility] Physical Therapy [facility] [address] [place], [place] [address] Fax REHABILITATION SERVICES DISCHAR GE SUMMARY MR#: [id number] Acct: [id number] Name: JOSE J COBIAN Rep #: [id number] : 1955 61 From: Cert. ROGER Dickerson PTT, OCS Referring Dr.: Bubba Romero Status: REG [...] PT, <Electronically signed b y Mac Aquino PT CertTimothy DURANT, OCS> 06/01/16 0926 CC: Sarah Pizano MD; Bubba Romero VIRGILIO Signed 05-Apr-2016 Operative Report Result: Comments: See Note; NOTES: [facility] Medical Records Department [address] [address] Operative Report MR#: [id number] Acct: [id number] Name: JOSE J COBIAN Rep #: [id number] : 1955 61 From: Bubba Romero MD PCP: Sarah Pizano MD Status: [facility] DATE OF SERVICE: 03/22/2016 DATE OF SERVICE: [...] indicated. Bubba Romero MD T: NTS JOB: [id number] 04/05/16 1351 <E lectronically signed by Bubba Romero MD> Date Bubba Romero MD Cosigner Signature (If Indicated): Date CC: Sarah Pizano MD; Bubba Romero Date Dictated: 03/22/161415 Date Transcribed: 03/22/161415 Tax Manager: Signed 01-Apr-2016 Echocardiogram Complete Result: Comments: See Note; NOTES: [facility] Cardiovascular Services [address] [place] [address] Echo Complete 04/01/16 1256 MR#: [id number] Acct: [id number] Name: JOSE J COBIAN Rep #: [id number] : 1955 61 From: Antonino Lucas MD Attending Dr: Antonino Lucas MD Status: REG CLI Ordering Dr: Antonino Lucas MD Date: 04/01/16 Location: [facility] Sex: F C Admitted: Reason For [...] changes noted, and PFO again noted. Orderi Physician: Antonino Lucas Referring Physician: Sarah Pizano Performed By: Cherelle Apple, CYNTHIA, RVT 04/01/16 1515 Date ____ Antonino Lucas MD CC: Sarah Pizano MD; Antonino Lucas MD Date Dictated: 04/01/16 1256 Date Transcribed: 04/01/16 1515 Tax Manager: Signed 22-Mar-2016 Breast Limited Unilateral Result: Comments: See Note; NOTES: [facility] Imaging Services [address] [place] [address] Verdana 4d Breast Limited Unilateral MR#: [id number] Acct: [id number] Name: JOSE J COBIAN Rep #: [id number] : 1955 F 61 From: Bartolome Patel MD PCP: Sarah Pizano MD Status: REG CLI Study: Breast Limited Unilateral Date of Exam: 03/22/16 Exam# [id number] Ordering Dr: Zack Pizano MD STUDY: ULTRASOUND [...] Bartolome Patel MD at 12:35 EDT Tel [phone], Service support [phone], CC: Sarah Pizano MD Tax Manager: Signed 19-Mar-2016 Thoracic Spine 3 Views Result: Comments: See Note; NOTES: [facility] Imaging Services [address] [place] [address] Verdana 4d Thoracic Spine 3 Views MR#: [id number] Acct: [id number] Name: MANGOVIRAJA Denise Prather #: [id number] : 1955 F 61 From: Bartolome Patel MD PCP: Sarah Pizano MD Status: REG [facility] Study: Thoracic Spine 3 Views Date of Exam: 03/22/16 Exam# [id number] Ordering Dr: Bubba Romero MD STUDY: X-RAY [...] Bartolome Patel MD at 14:10 EDT Tel [phone], Service support [phone], CC: Sarah vasquez MD; Bubba Romero Tax Manager: Signed 19-Mar-2016 Inital Evaluation (1) - PT Result: Comments: See Note; NOTES: [facility] Physical Therapy [facility] [address] [place] [address] Fax [facility] HERI Springer EVALUATION MR#: [id number] Acct: [id number] Name: JOSE J COBIAN Rep #: [id number] : 1955 61 From: Mac Smith Referring Dr.: Bubba Romero Status: REG RCR Insurance: [employer] ARE MEDICARE Patient's Visit Information JOSE J [...] w/PA mobilizations. Shoulder strength on MMT: Right: 5. Left: 4-/5 - Goals Goal 1:: Patient [...] to be FAXED BACK to us at [phone] for Medicare purposes. Please let me know if there are questions or concerns regarding this plan of care. Physician Signature: Date: <Electronically signed by Mac Smith > 03/19/16 1624 CC: Sarah Pizano MD; Bubba Romero DT: CATIA Signed For Medicare only, by signing this I certify the plan of care. Physicians Signature Date 16-Mar-2016 Bilat Scrn Digital AND CAD Result: Comments: See Note; NOTES: [facility] Imaging Services [address] [address] Verdana 4d Bilat Scrn Digital AND CAD MR#: [id number] Acct: [id number] Name: JOSE J COBIAN Rep #: [id number] : 1955 F 61 From: Bartolome Patel MD PCP: Sarah Pizano MD Status: REG CLI Study: Bilat Scrn Digital AND CAD Date of Exam: 03/16/16 Exam# [id number] Ordering Dr: Sarah Pizano MD MAMMOGRAPHY - [...] delay biopsy of a clinically suspicious abnormality. [id number] Electronically Signed: Bartolome Patel MD at 15:06 EDT Tel [phone], Service supp ort [phone], CC: Sarah Pizano MD Tax Manager: Signed 16-Mar-2016 Dexa Bone Density Study (HP) Result: Comments: See Note; NOTES: [facility] Imaging Services [address] [address] Verdana 4d Dexa Bone Density Study (HP) MR#: [id number] Acct: [id number] Name: MAURI COBIAN Rep #: [id number] : 1955 F 61 From: Bartolome Patel MD PCP: Sarah Pizano MD Status: REG CLI Study: Dexa Bone Density Study (HP) Date of Exam: 03/16/16 Exam# [id number] Ordering Dr: Sarah Deng MD STUDY: DUAL [...] Bartolome Patel MD at 14:15 EDT Tel [phone], Service support [phone], CC: Sarah Pizano MD Tax Manager: Signed 22-Feb-2016 History and Physical Exam Result: Comments: See Note; NOTES: [facility] Medical Records Department [address] [place] [address] History and Physical 02/22/162054 MR#: [id number] Acct: [id number] Name: JOSE J COBIAN Rep #: [id number] : 1955 60 From: An Dent DO [...] was seen in the emergency room at 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 Lives: Spouse/ Significant Other Smoking Status: [...] 44.6 L Lymph % (Auto) 46.1 H Dickson % (Auto) 6.9 Eos % (Auto) 2.0 [...] uses albuterol inhaler as needed #5 anxiety 02/22/162104 <Electronically signed by An Dent DO> Date An schmidt DO Cosigner Signature (if applicable): Date CC: Sarah Pizano MD; An Dent DO Signed 22-Feb-2016 Chest 1 View (Portable) Result: Comments: See Note; NOTES: [facility] Imaging Services [address] [place] [address] Verdaolvin 4d Chest 1 View (Portable) MR#: [id number] Acct: [id number] Name: JOSE J COBIAN Rep #: [id number] : 1955 F 60 From: Kim Dsouza MD PCP: Sarah Pizano MD Status: REG ER Study: Chest 1 View (Portable) Date of Exam: 02/22/16 Exam# [id number] Ordering Dr: Mac Chi MD STUDY: X-RAY [...] MD at 19:35 EDT , Service support [phone], CC: Sarah Pizano MD; Mac Chi MD Tax Manager: Signed 16-Feb-2016 Thoracic Spine 3 Views Result: Comments: See Note; NOTES: [facility] Imaging Services [address] [place] [address] Verdana 4d Thoracic Spine 3 Views MR#: [id number] Acct: [id number] Name: JOSE J COBIAN Yamilka #: [id number] : 1955 F 60 From: Kirk Wall MD PCP: Sarah Pizano MD Status: REG CLI Study: Thoracic Spine 3 Views Date of Exam: 02/16/16 Exam# [id number] Ordering Dr: Sarah Pizano MD ST UDY: X-RAY - THORACIC SPINE REASON FOR [...] Wall MD at 21:50 EDT , S titi support [phone], CC: Sarah Pizano MD Tax Manager: Signed 03-Nov-2015 Operative Report Result: Comments: See Note; NOTES: [facility] Medical Records Department [facility] [place] [address] Operative Report MR#: [id number] Acct: [id number] Name: JOSE J COBIAN Rep #: [id number] : 1955 60 From: Bubba Romero MD PCP: Sarah Pizano MD Status: [facility] DATE OF SERVICE: 10/20/2015 DATE [...] indicated. Lidia Romero MD T: [facility] JOB: [id number] 11/03/15 4755 <Electronically signed by Bubba Romero MD> Date Bubba Romero MD Co signer Signature (If Indicated): Date CC: Sarah Pizano MD; Bubba Romero Date Dictated: 10/20/15 1351 Date Transcribed: 10/20/151350 Tax Manager: Signed 20-Oct-2015 Cerv Spine 2 or 3 Views Result: Comments: See Note; NOTES: [facility] Imaging Services [address] [place] [address] Verdana 4d Cerv Spine 2 or 3 Views MR#: [id number] Acct: [id number] Name: JOSE J NOWAK Rep #: [id number] : 1955 F 60 From: Bartolome Patel MD PCP: Sarah Pizano MD Status: [facility] Study: Cerv Spine 2 or 3 Views Date of Exam: 10/20/15 Exam# [id number] Ordering Dr: Bubba Romero MD STUDY: X-RAY [...] Bartolome Patel MD at 13:45 EDT Tel [phone], Service support [phone], RAD/Cerv Spine 2 or 3 Views IMPRESSION: Fluoroscopic services provided for right 4 through C7 facet block. Electronically Signed: Bartolome Patel MD at 13:45 EDT Tel [phone], Service support [phone], CC: Sarah Pizano MD; Bubba Romero Tax Manager: Signed 18-Aug-2015 Operative Report Result: Comments: See Note; NOTES: [facility] Medical Records Department [address] [place] [address] Operative Report MR#: [id number] Acct: [id number] Name: JOSE J COBIAN Denise Rep #: [id number] : 1955 60 From: Bubba Romero MD PCP: Sarah Pizano MD Status: [facility] DATE OF SERVICE: 08/04/2015 DATE [...] if indicate d. Bubba Romero MD T: [facility] JOB: [id number] 08/18/15 0927 <Electronically signed by Bubba Romero MD> Date Bubba copeland MD Cosigner Signature (If Indicated): Date CC: Sarah Pizano MD; Bubba Romero Date Dictated: 08/04/151432 Date Transcribed: 08/04/151432 Tax Manager: Signed 04-Aug-2015 Cerv Spine 2 or 3 Views Result: Comments: See Note; NOTES: [facility] Imaging Services [address] [place] [address] Verdana 4d Cerv Spine 2 or 3 Views MR#: [id number] Acct: [id number] Name: JOSE J NOWAK Rep #: [id number] : 1955 F 60 From: Kirk Wall MD PCP: Sarah Pizano MD Status: [facility] Study: Cerv Spine 2 or 3 Views Date of Exam: 08/04/15 Exam# [id number] Ordering Dr: Osiel Romero MD STUDY: X-RAY [...] MD at 16:28 EST , Service support [phone], RAD/Cerv Spine 2 or 3 Views IMPRESSION: Needle positions as above. Electronically Signed: Kirk Wall MD at 16:28 EST , Service support [phone], CC: Sarah Pizano MD; Bubba Romero Tax Manager: Signed 02-Jul-2015 Hip min 2 Views Result: Comments: See Note; NOTES: [facility] Imaging Services [address] [place] [address] Verdana 4d Hip min 2 Views MR#: [id number] Acct: [id number] Name: VIRAJ COBIAN Rep #: [id number] : 1955 F 60 From: Tuan Boyd MD PCP: Sarah Pizano MD Status: REG CLI Study: Hip min 2 Views Date of Exam: 07/02/15 Exam# [id number] Ordering Dr: Sarah Pizano MD S DY: X-RAY - RIGHT HIP REASON FOR EXAM: [...] at 12:42 EST Tel , Service support [phone], Fax RAD/Hip min 2 Views IMPRESSION: Normal x-ray examination of the hip. Electronically Signed: Lucius Boyd MD at 12:42 EST Tel , Linnea e support [phone], CC: Sarah Pizano MD Tax Manager: Signed 24-Jun-2015 Pelvis 1 or 2 Views Result: Comments: See Note; NOTES: [facility] Imaging Services [address] [place] [address] Verdana 4d Pelvis 1 or 2 Views MR#: [id number] Acct: [id number] Name: JOSE J COBIAN Rep #: [id number] : 1955 F 60 From: Prosper Dumont MD PCP: Sarah Pizano MD Status: REG CLI Study: Pelvis 1 or 2 Views Date of Exam: 06/24/15 Exam# [id number] Ordering Dr: Tuan Pizano MD STUDY: X-RAY [...] at 11:20 EST Tel , Service support [phone], RAD/Pelvis 1 or 2 Views IMPRESS ION: There is narrowing with cortical sclerosis and osteophyte formation of the sacroiliac joint consistent with degenerative osteoarthritic changes. Electronically Signed: Lavell Dumont MD 08/26 at 11:20 EST Tel , Service support [phone], CC: Sarah Pizano MD Tax Manager: Signed 07-Feb-2015 Chest PA and Lateral Result: Comments: See Note; NOTES: [facility] Imaging Services [address] [place] [address] Radiology Report MR#: [id number] Acct: [id number] Name: JOSE J COBIAN Rep #: [id number] : 1955 F 59 From: Baldemar Torres DO PCP: Sarah Pizano MD Status: REG CLI Study: Chest PA and Lateral Date of Exam: 02/07/15 Exam# [id number] Ordering Dr: Pamella Saavedra STUDY: X-RAY CHES [...] Baldemar Torres DO at 19:14 EDT Tel [phone], Service support , RAD/Chest PA and Lateral IMPRESSION: No acute cardiopulmonary disease or interval change. Electronically Signed: Baldemar Torres DO at 19: 14 EDT Tel [phone], Service support [phone], CC: Pamella Saavedra; Sarah Pizano MD Tax Manager: Signed 05-Feb-2014 Katie Santillann Digital & CAD Result: Comments: See Note; NOTES: [facility] Imaging Services [address] [place] [address] Breast Imaging Report MR#: [id number] Acct: [id number] Name: JOSE J COBIAN Rep #: [id number] : 1955 F 58 From: Bartolome Patel MD PCP: Sarah Pizano MD Status: REG CLI Exam# [id number] Ordering Dr: Sarah Pizano MD MAMMOGRAPHY - [...] Bartolome Patel MD at 13:16 EDT Tel [phone], Service support [phone], CC: Sarah Pizano MD Tax Manager: Signed 06-Jun-2013 Abdomen/Pelvis with Contrast Result: Comments: See Note; NOTES: [facility] Imaging Services [address] [place] [address] CAT Scan Report MR#: [id number] Acct: [id number] Name: JOSE J COBIAN Rep #: [id number] : 1955 F 58 From: Tuan Atkins MD PCP: Sarah Pizano MD Status: REG CLI Study: Abdomen/Pelvis with Contrast Date of Exam: 06/06/13 Exam# [id number] Ordering Dr: Sarah Pizano MD STUD Y: [...] M.D. at 0:12 EST , Service support [phone], CC: Sarah Pizano MD Tax Manager: Signed Immunization Name Dates Details Influenza (3 [...] lipomas Status: Active Daughter 1 Comments: oldest. [place] Status: Active Father Comments: pancreatic cancer at [...] Active Living Situation Comments: Lives with spouse. 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 sweetheart [...] smoker Vital Signs Date Test Result Details :29 Temperature 98.2 f Comments: Method: Temporal Pulse 82 /min Comments: Pattern: Regular Respiration Rate 20 /min Comments: Pattern: Unlabored O2 SAT 98 % Comments: Room air BP Systolic 126 mm[Hg] Comments: Patient Position: Sitting; Cuff Location: Left Arm; Cuff Size: Standard BP Diastolic 84 mm[Hg] Comments: Patient Position: Sitting; Cuff Location: Left Arm; Cuff Size: Standard Weight 174 lb Height 59 in Body Mass Index Calculated 35.14 kg/m2 Body Surface Area Calculated 1.74 m2 :36 Temperature 97.9 f Comments: Method: Temporal Pulse [...] kg/m2 Body Surface Area Calculated 1.77 m2 25-Rom-966520:04 Temperature 97 f Comments: Method: Temporal Pulse [...] kg/m2 Body Surface Area Calculated 1.78 m2 2-Wgv-879312:11 Temperature 98.6 f Pulse 84 /min Comments: [...] Height 0 in Head Circumference 0.00 cm 88-Nvf-163217:53 Pulse 74 /min Comments: Pattern: Regular Respiration [...] 0.00 cm Results Date Description Value Details :57 Urinalysis, Office (17721) UA - LEUKOCYTE ESTERASE Negative (Normal) UA - NITRITE Negative (Normal) URINE UROBILINGN YANCI TIMED 2 mg/dL (Normal) UA - PROTEIN Negative mg/dL (Normal) UA - PH 7.0 (Normal) UA - BLOOD Negative (Normal) UA - SPECIFIC GRAVITY 1.010 (Normal) UA - KETONES Negative mg/dL (Normal) UA - BILIRUBIN Negative (Normal) UA - GLUCOSE Negative (Normal) 03-Apr-20188:00 Protime w/INR Fingerstick Comments: [facility] [address] [place], [place] [address] INR ISTAT 1.10 (Normal) Comments: Critical Value > 3.5 PROTIME ISTAT 13.7 {SEC} (Normal) Range: 11.9-14.4 Comments: Reference Range 11.9 - 14.4 :23 Amylase 89 U/L (Normal) Comments: PATIENT NOT FASTINGPERFORMED BY: [facility]CoUniversity HospitalHxjkiq5257 [facility] [id number] Range: 31-124 66-Gwz-590020:23 CBC With Differential/Platelet Comments: PATIENT NOT FASTINGPERFORMED BY: [facility]Co[facility] HospitalGeqjdn9398 [facility] [id number] Immature Grans (Abs) 0.0 {x10E3/uL} (Normal) Range: [...] 3.77-5.28 WBC 4.2 {x10E3/uL} (Normal) Range: 3.4-10.8 33-Wyy-385313:23 Comp. Metabolic Panel (14) Comments: PATIENT NOT FASTINGPERFORMED BY: [employer] (MM)[facility] HospitalIfdslc4812 [facility] [id number] ALT (SGPT) 18 [iU]/L (Normal) Range: 0-32 [...] U/L (Abnormal) Comments: PATIENT NOT FASTINGPERFORMED BY: [employer] [facility] (MM)[facility] HospitalJzxsxy2330 [facility] [id number] 4:23 Range: 14-72 79-Iqy-728391:23 Urinalysis, Routine Comments: PATIENT NOT FASTINGPERFORMED BY: [facility]Co[facility] HospitalRvjtbd5334 [address] [place] [id number] Microscopic Examination MICNIP (Normal) Comments: Microscopic not indicated and not performed. Nitrite, Urine Negative (Normal) Urobilinogen,Semi-Qn 1.0 mg/dL (Normal) Range: 0.2-1.0 Bilirubin Negative (Normal) Occult Blood Negative (Normal) Ketones Negative (Normal) Glucose Negative (Normal) Protein Negative (Normal) WBC Esterase Negative (Normal) Appearance Clear (Normal) Urine-Color Yellow (Normal) pH 6.0 (Normal) Range: 5.0-7.5 Specific [place] 1.020 (Normal) Range: 1.005-1.030 :42 Protime w/INR Fingerstick Comments: [facility] [address] [place], [place] [address] INR ISTAT 1.00 (Normal) Comments: Critical Value > 3.5 PROTIME ISTAT 12.4 {SEC} (Normal) Range: 11.9-14.4 Comments: Reference Range 11.9 - 14.4 07-Mwh-893667:14 CBC W/Diff, Automated Comments: [facility] [address] [place], [address] ; fu 6-19 Absolute Lymph 1.62 {X10_3/ul} [...] 4.2-5.4 WBC 4.7 K/mm3 (Normal) Range: 4.4-11.0 52-Hir-820400:14 Comprehensive Metabolic Profil Comments: [facility] [address] [place], [address] GAP 5 (Normal) Range: 5-15 CO2 29.0 [...] A.D.A. criteria.Please note revised GLUCOSE reference range jikdhnnhb14/02/2018. 27-Wbk-207081:14 Ferritin Comments: [facility] [address] [place], [address] FERRITIN 82 ng/mL (Normal) Range: 8-252 80-Pnf-023150:14 Vitamin B12 558 pg/mL (Normal) Comments: [place] [address] [address] [place], [address] Range: 211-911 05-Sep-20178:07 Protime w/INR Fingerstick Comments: [facility] [place] [address] [address] [place] [address] INR ISTAT 1.30 (Normal) Comments: Critical Value > 3.5 PROTIME ISTAT 14.9 {SEC} (Abnormal) Range: 11.9-14.4 Comments: Reference Range 11.9 - 14.4 08-Aug-20179:10 Protime w/INR Fingerstick Comments: [place] [address] [address] [place] [address] INR ISTAT 1.10 (Normal) Comments: Critical Value > 3.5 PROTIME ISTAT 13.0 {SEC} (Normal) Range: 11.9-14.4 Comments: Reference Range 11.9 - 14.4 45-Gkk-011280:32 Culture, Blood (WB) Comments: [place] [address] [address] [place], [address] CUB See Note (Normal) Comments: Has pt arrived? Y Comments: DR. Mello growth in 5 days. 26-Gya-685183:25 CBC W/Diff, Automated Comments: Comments: DR Cui [facility] [address] [place], [address] Absolute Lymph 1.68 {X10_3/ul} (Normal) Range: 0.83-4.51 [...] 4.2-5.4 WBC 3.9 K/mm3 (Abnormal) Range: 4.4-11.0 24-Zyd-045262:25 Culture, Blood (WB) Comments: [facility] [address] [place], [address] CUB See Note (Normal) Comments: Has pt arrived? Y Comments: DR. Mello growth in 5 days. 62-Uic-088372:25 Erythrocyte Sed Rate Comments: Comments: DR Cui [facility] [address] [place], [address] SED RATE 8 mm/h (Normal) Range: 0-30 27-Hpe-388887:25 Ferritin Comments: Comments: [facility] [address] [place], [address] FERRITIN 83 ng/mL (Normal) Range: 8-252 76-Png-460265:25 Vitamin D,25 Hydroxy Comments: Order Date: 07/20/17[facility] [address] [place], [address] Vitamin D 25-OH 34.6 ng/mL (Normal) Comments: Vitamin D 25(OH) Status Range Deficiency <20 ng/mL (50nmol/L) Insuffciency 20 - 30 ng/mL (50 - 75 nmol/L) Sufficiency 30 - 100 ng/mL (75 - 250 nmol/L) Toxicity >100 ng/mL (>250 nmol/L) 67-Ben-632276:10 Culture, Urine Comments: [facility] [address] [place] [place], [address] CUUR See Note (Normal) Comments: Order Date: 07/20/17 Comments: DR PIZANO Urine CultureCulture exhibits no growth. 12-Yrh-092323:10 Urinalysis, Complete Comments: Order Date: 07/20/17Has pt arrived? YComments: DR Morales was Urine Obtained? CLEAN [facility] [address] [place], [address] MUCUS, URINE 0 SEEN {/hpf} (Normal) BACTERIA [...] (Normal) CLARITY Clear (Normal) COLOR Yellow (Normal) :48 Protime w/INR Fingerstick Comments: [place] [address] [place] [address] INR ISTAT 1.10 (Normal) Comments: Critical Value > 3.5 PROTIME ISTAT 13.2 {SEC} (Normal) Range: 11.9-14.4 Comments: Reference Range 11.9 - 14.4 :30 Protime w/INR Fingerstick Comments: [place] [address] [place] [address] INR ISTAT 1.10 (Normal) Comments: Critical Value > 3.5 PROTIME ISTAT 12.8 {SEC} (Normal) Range: 11.9-14.4 Comments: Reference Range 11.9 - 14.4 :44 INR Fingerstick Comments: [place] [address] [place] [address] INR ISTAT 1.10 (Normal) Comments: Critical Value > 3.5 :44 Prothrombin Time Fingerstick Comments: [place] [address] [place] [address] PROTIME ISTAT 13.6 {SEC} (Normal) Range: 11.9-14.4 Comments: Reference Range 11.9 - 14.4 60-Osj-342638:17 HgA1C , Office (69612) HgA1C , Office 5.7 % (Normal) Range: 4.6 - 7.1 82-Rwq-337052:08 Metabolic Panel, Basic Comments: PATIENT NOT FASTINGPERFORMED BY: [facility] [address] [facility] [id number] ([address]) Calcium, Serum 9.1 mg/dL (Normal) Range: 8.7-10.3 [...] Glucose, Serum 97 mg/dL (Normal) Range: 65-99 11-Vmx-659297:08 CBC (Auto) (78290) Comments: PATIENT NOT FASTINGPERFORMED BY: [facility] [facility] [id number] Platelets 306 {x10E3/uL} (Normal) Range: 150-379 RDW 15.6 % (Abnormal) Range: 12.3-15.4 MCHC 32.9 g/dL (Normal) Range: 31.5-35.7 MCH 28.3 pg (Normal) Range: 26.6-33.0 MCV 86 fL (Normal) Range: 79-97 Hematocrit 35.9 % (Normal) Range: 34.0-46.6 Hemoglobin 11.8 g/dL (Normal) Range: 11.1-15.9 RBC 4.17 {x10E6/uL} (Normal) Range: 3.77-5.28 WBC 4.6 {x10E3/uL} (Normal) Range: 3.4-10.8 49-Vkr-706753:08 URINALYSIS W/O MICRO (90311) Comments: PATIENT NOT FASTINGPERFORMED BY: [facility] [id number] Microscopic Examination MICNIP (Normal) Comments: Microscopic not indicated and not performed. Nitrite, Urine Negative (Normal) Urobilinogen,Semi-Qn 0.2 mg/dL (Normal) Range: 0.2-1.0 Bilirubin Negative (Normal) Occult Blood Negative (Normal) Ketones Negative (Normal) Glucose Negative (Normal) Protein Negative (Normal) WBC Esterase Negative (Normal) Appearance Clear (Normal) Urine-Color Yellow (Normal) pH 6.0 (Normal) Range: 5.0-7.5 Specific [place] 1.013 (Normal) Range: 1.005-1.030 16-Eix-890155:08 COMPLEMENT C4 (57515) Comments: PATIENT NOT FASTINGPERFORMED BY: [facility] [facility] [id number] Complement C4, Serum 16 mg/dL (Normal) Range: 14-44 30-Ymw-232656:08 COMPLEMENT C3 (51178) Comments: PATIENT NOT FASTINGPERFORMED BY: [address] [id number] Complement C3, Serum 103 mg/dL (Normal) Range: 82-167 87-Pqt-348358:08 DNA ANTIBODY-NATV/DBL ST (65161) Comments: PATIENT NOT FASTINGPERFORMED BY: [address] [id number] test code 593129 Anti-DNA (DS) Ab Qn <1 {IU/mL} (Normal) Range: 0-9 Comments: Negative <5 Equivocal 5 - 9 Positive >9 83-Ixk-086816:08 Sed Rate Erythrocyte (06296) Comments: PATIENT NOT FASTINGPERFORMED BY: [place] [id number] [facility] [id number] Sedimentation Rate-Westergren 4 mm/h (Normal) Range: 0-40 73-Djq-273639:08 DESIRAE (ANTINUCLEAR ANTIBODY) Comments: PATIENT NOT FASTINGPERFORMED BY: [address] [id number] ([address]2496) DESIRAE Direct Negative (Normal) 1-Lca-281217:04 Prothrombin Time w/INR Comments: [facility] [address] [place], [place], [address] INR 1.5 (Normal) PROTIME 17.8 s (Abnormal) Range: 11.7-14.9 33-Wgz-669644:45 Prothrombin Time w/INR Comments: [facility] [address] [place], [place], [address]49) INR 3.0 (Normal) PROTIME 30.3 s (Abnormal) Range: 11.7-14.9 :51 Serum Creatinine AND GFR Comments: [facility] [address] [place], [address] EST GFR - AA 90 mL/min (Normal) Comments: GFR Calc EST GFR 74 mL/min (Normal) Comments: Non- GFR Calc CREAT,SERUM 0.83 mg/dL (Normal) Range: 0.55-1.02 Comments: The validity of the calculated GFR AND GFRAA in patients over70 years has not been determined. Clinical correlation isessential. :21 LIPASE (91999) Comments: PATIENT NOT FASTINGPERFORMED BY: [facility] [address] Road[address] [place] [id number] Lipase, Serum 46 U/L (Normal) Range: 14-72 Comments: Please note reference interval change :21 AMYLASE (56366) Comments: PATIENT NOT FASTINGPERFORMED BY: CB [facility] Fnigci6319 Vila RoadDublin [place] [id number] Amylase, Serum 65 U/L (Normal) Range: 31-124 5-Twi-539801:21 CALCIFIDIOL (54557) VIT D 25 Comments: PATIENT NOT FASTINGPERFORMED BY: CB [facility] Reoibq1741 Vila RoadDublin [place] [id number] Vitamin D, 25-Hydroxy 25.8 ng/mL (Abnormal) Range: 30.0-100.0 Comments: Vitamin D deficiency has been defined by the Dewey ofMedicine and an Endocrine Society practice guideline as alevel of serum 25-OH vitamin D less than 20 ng/mL (1,2).The Endocrine Society went on to further define vitamin Dinsufficiency as a level between 21 and 29 ng/mL (2).1. IOM (Dewey of Medicine). 2010. Dietary reference intakes for calcium and D. [place]: The National Academies Press.2. Candelaria MF, Janey ELIAS, Yolande GROSS, et al. Evaluation, treatment, and prevention of vitamin D deficiency: an Endocrine Society clinical practice guideline. JCEM. 2010; 96(7):1911-30. 9-Ous-991081:21 Ferritin (47643) Comments: PATIENT NOT FASTINGPERFORMED BY: MONA [facility] Tymdwg[address] RevealCaromont Regional Medical Centerin [place] [id number]; fu 10-27 db Ferritin, Serum 10 ng/mL (Abnormal) Range: 15-150 9-Jzw-588874:21 Vitamin B-12 (cyanocobalamin) Comments: PATIENT NOT FASTINGPERFORMED BY: [facility] Unjfro[address] [facility] [id number] (40583) Vitamin B12 1888 pg/mL (Abnormal) Range: 211-946 3-Sul-172569:21 METABOLIC PANEL, COMPREHENSIVE Comments: PATIENT NOT FASTINGPERFORMED BY: MONA [facility] Cxdxna59[address] RevealUNC Health Johnston [id number] (87058) ALT (SGPT) 11 [iU]/L (Normal) Range: 0-32 [...] Glucose, Serum 101 mg/dL (Abnormal) Range: 65-99 4-Dms-723872:21 CBC with auto diff Comments: PATIENT NOT FASTINGPERFORMED BY: MONA [facility] Imebon[address] [place] [id number] Information: CLIENT DRAW (54356) Immature Grans (Abs) 0.0 {x10E3/uL} (Normal) Range: [...] 3.77-5.28 WBC 5.7 {x10E3/uL} (Normal) Range: 3.4-10.8 49-Zkj-263386:14 Prothrombin Time w/INR Comments: [facility] [address] [place], [address] INR 1.9 (Normal) Comments: ADDENDA: handled by cardio PROTIME 21.0 s (Abnormal) Range: 11.7-14.9 :57 HEPATIC FUNCTION PANEL Comments: PATIENT NOT FASTINGPERFORMED BY: Gra[facility]sFormerly [facility] [facility] [id number] (25463) ALT (SGPT) 15 [iU]/L (Normal) Range: 0-32 AST (SGOT) 20 [iU]/L (Normal) Range: 0-40 Alkaline Phosphatase, S 114 [iU]/L (Normal) Range: 39-117 Bilirubin, Direct 0.10 mg/dL (Normal) Range: 0.00-0.40 Comments: Please note reference interval change Bilirubin, Total <0.2 mg/dL (Normal) Range: 0.0-1.2 Albumin, Serum 4.9 g/dL (Abnormal) Range: 3.6-4.8 Protein, Total, Serum 7.1 g/dL (Normal) Range: 6.0-8.5 :57 IGA/IGD/IGG/IGM-EACH (04067) Comments: PATIENT NOT FASTINGPERFORMED BY: [facility] [id number] Immunoglobulin E, Total 50 {IU/mL} (Normal) Range: 0-100 Immunoglobulin M, Qn, Serum 43 mg/dL (Normal) Range: 26-217 Immunoglobulin A, Qn, Serum 131 mg/dL (Normal) Range: 87-352 Immunoglobulin G, Qn, Serum 753 mg/dL (Normal) Range: 700-1600 94-Lot-113682:57 EBV ACUTE PFOF IgG/IgM Comments: PATIENT NOT FASTINGPERFORMED BY: [facility] [facility] [address] [id number] (25120) Interpretation: SPR (Normal) Comments: EBV Interpretation Chart . Interpretation [...] <36.0 Equivocal 36.0 - 43.9 Positive >43.9 :57 LDH (LD) (LACTATE DEHYDROGENASE) Comments: PATIENT NOT FASTINGPERFORMED BY: [facility] [id number] (55616) LDH 191 [iU]/L (Normal) Range: 119-226 30-Azz-611736:57 HIV-1 & 2 ANTBDY-SNGL SHAWN Comments: PATIENT NOT FASTINGPERFORMED BY: [facility] [id number] (04153) HIV Screen 4th Generation wRfx Non Reactive (Normal) :57 HEPATITIS PANEL (67134) Comments: PATIENT NOT FASTINGPERFORMED BY: [facility] [facility] [address] [id number] Hep C Virus Ab 0.1 {s/co_ratio} (Normal) Range: 0.0-0.9 Comments: Negative: < 0.8 Indeterminate: 0.8 - 0.9 Positive: > 0.9 . The CDC recommends that a positive HCV antibody result be followed up with a HCV Nucleic Acid Amplification test (859033). Hep B Core Ab, IgM Negative (Normal) HBsAg Screen Negative (Normal) Hep A Ab, IgM Negative (Normal) 5-Ljh-925618:56 Culture, Blood (WB) Comments: [facility] [address] [place], [place], [address] CUB See Note (Normal) Comments: BCNo growth in 5 days. 3-Nkr-006825:56 EBV Acute Prof IgG / IgM Comments: [facility] (refer to report for specific site)refer to report for address and phone number INTERPRETATION Comment (Normal) Comments: EBV Interpretation ChartInterpretation EBV-IgM EA(D)-IgG VCA-IgG EBNA-IgGEBV Seronegative - - - -Early Phase + - - -Acute Primary + +or- + -InfectionConvalescence/Past - +or- + +InfectionReactivated +or- + + +Infection + Antibody Present - Antibody Ab sentPerformed at: [address] [id number] Director: Neo Campos PhD, Phone: [phone] EB-NAg GtV89776 136.0 U/mL (Abnormal) Range: 0.0-17.9 Comments: Negative <18.0 Equivocal 18.0 - 21.9 Positive >21.9 EB-VCA MgS49791 255.0 U/mL (Abnormal) Range: 0.0-17.9 Comments: Negative <18.0 Equivocal 18.0 - 21.9 Positive >21.9 EB-EA IgG 18192 18.4 U/mL (Abnormal) Range: 0.0-8.9 Comments: Hepatitis A, Hepatitis C and HIV antibodies may cross-reactwith this assay. Negative < 9.0 Equivocal 9.0 - 10.9 Positive >10.9 EB-VCA CgH38598 36.1 U/mL (Abnormal) Range: 0.0-35.9 Comments: A second sample should be collected and tested no less than2-4 weeks. Negative <36.0 Equivocal 36.0 - 43.9 Positive >43.9 2-Ggb-205019:56 Ferritin Comments: [facility] [address] [place], [address] FERRITIN 34 ng/mL (Normal) Range: 8-252 5-Wmc-440491:56 Vitamin D,25 Hydroxy Comments: [facility] Rcpgjdezpx6117 [facility] [place], [address] Vitamin D 25-OH 29.2 ng/mL (Normal) Comments: Vitamin D 25(OH) Status Range Deficiency <20 ng/mL (50nmol/L) Insuffciency 20 - 30 ng/mL (50 - 75 nmol/L) Sufficiency 30 - 100 ng/mL (75 - 250 nmol/L) Toxicity >100 ng/mL (>250 nmol/L) 7-Uhd-814228:03 INR Fingerstick Comments: [place] [address] [place] [address] INR ISTAT 1.00 (Normal) Comments: Critical Value > 3.5 3-Zrb-082672:03 Prothrombin Time Fingerstick Comments: [address] [place] [address] PROTIME ISTAT 12.1 {SEC} (Normal) Range: 11.9-14.4 Comments: Reference Range 11.9 - 14.4 67-Srv-286698:55 Prothrombin Time w/INR Comments: [place] [address] [place], [address] INR 2.6 (Normal) PROTIME 26.7 s (Abnormal) Range: 11.7-14.9 :44 GRETTA CULTURE-OTHER (20652) Comments: PATIENT NOT FASTINGPERFORMED BY: Beepl [facility] [id number] Information: THROAT SRC:TH Result 1 RRF (Normal) Comments: Routine respiratory rajwinder Upper Respiratory Culture Final report (Normal) 49-Kpa-761533:31 Rapid Flu (28845 x 2) Influenza A Ag negative (Normal) 91-Ttk-412576:31 Rapid Strep Test, Office (38711) Rapid Strep Test, Office Negative (Normal) 13-Ocm-207318:46 Microscopic Examination Comments: PATIENT NOT FASTINGPERFORMED BY: studdex [facility] Iikojp6654 enosiXUNC Health Johnston [id number] Bacteria Few (Normal) Mucus Threads Present (Normal) Crystal Type Calcium Oxalate (Normal) Crystals Present (Abnormal) Epithelial Cells (non renal) 0-10 {/hpf} (Normal) Range: 0 - 10 RBC 0-2 {/hpf} (Normal) Range: 0 - 2 WBC 0-5 {/hpf} (Normal) Range: 0 - 5 62-Eox-834214:46 URINALYSIS (67009) Comments: PATIENT NOT FASTINGPERFORMED BY: Thinque SystemsUniversity HospitalRdchev86[address] [facility] [id number] Microscopic Examination See below: (Normal) Comments: Microscopic was indicated and was performed. Nitrite, Urine Negative (Normal) Urobilinogen,Semi-Qn 1.0 mg/dL (Normal) Range: 0.2-1.0 Bilirubin Negative (Normal) Occult Blood Negative (Normal) Ketones Negative (Normal) Glucose Negative (Normal) Protein Negative (Normal) WBC Esterase 1+ (Abnormal) Appearance Clear (Normal) Urine-Color Yellow (Normal) pH 6.0 (Normal) Range: 5.0-7.5 Specific [place] 1.018 (Normal) Range: 1.005-1.030 36-Mjk-982544:46 CBC WITH MANUAL DIFF (04715) Comments: PATIENT NOT FASTINGPERFORMED BY: Thinque SystemsUniversity HospitalTeiipq97[address] [facility] [id number] Immature Grans (Abs) 0.0 {x10E3/uL} (Normal) Range: [...] 3.77-5.28 WBC 4.5 {x10E3/uL} (Normal) Range: 3.4-10.8 91-Fhq-458940:46 Ferritin (05077) Comments: PATIENT NOT FASTINGPERFORMED BY: Music [employer] (MM)University HospitalFlmwcr5299 [facility] [id number] Ferritin, Serum 10 ng/mL (Abnormal) Range: 15-150 14-Dca-195773:46 Metabolic Panel, Comprehensive Comments: PATIENT NOT FASTINGPERFORMED BY: GraftysCoUniversity HospitalKkepzk2368 [facility] [id number] (13845) ALT (SGPT) 18 [iU]/L (Normal) Range: 0-32 [...] Glucose, Serum 86 mg/dL (Normal) Range: 65-99 31-Elb-296830:46 AMYLASE (20529) Comments: PATIENT NOT FASTINGPERFORMED BY: LabCoUniversity HospitalBggwli0795 [facility] [id number] Amylase, Serum 81 U/L (Normal) Range: 31-124 39-Alu-672729:46 LIPASE (90830) Comments: PATIENT NOT FASTINGPERFORMED BY: LabCoUniversity HospitalRfjgek0978 [facility] [id number] Lipase, Serum 79 U/L (Abnormal) Range: 0-59 27-Bxr-055939:33 Prothrombin Time w/INR Comments: Order Date: 03/23/16Order Date: 03/23/16Interface Comments: Reason:Order Date: 03/23/16[facility] [address] [place], [place], [address] INR 2.0 (Normal) PROTIME 22.3 s (Abnormal) Range: 11.7-14.9 84-Bfh-319824:36 Prothrombin Time w/INR Comments: [facility] [address] [place], [place], [address] INR 1.4 (Normal) PROTIME 17.1 s (Abnormal) Range: 11.7-14.9 92-Bpi-595577:20 Prothrombin Time w/INR Comments: Order Date: 05/11/16Order Info: 6301-6 - *PT/INR - Standing OrderComments: Standing Order-Reason:Order Date: 05/11/16Order Info: 6301-6 - *PT/INR - Standing OrderComments: Standing Order- Reason:[facility] [address] [place], [place], [address] INR 1.2 (Normal) PROTIME 14.8 s (Normal) Range: 11.7-14.9 4-Ive-536610:50 Prothrombin Time w/INR Comments: Order Date: 05/11/16Order Info: 6301-6 - *PT/INR - Standing OrderComments: Standing Order-Reason:Order Date: 05/11/16Order Info: 6301-6 - *PT/INR - Standing OrderComments: Standing Order-Reason:Order Da te: 05/11/16Order Info: 6301-6 - *PT/INR - Standing OrderComments: Standing Order-Reason:[facility] [address] [place], [place], [address] INR 1.2 (Normal) PROTIME 15.1 s (Abnormal) Range: 11.7-14.9 :00 Culture, Nose Comments: [facility] [address] [place], [place], [address] CUN See Note (Normal) Comments: Comments: NARESGram StainGram Stain Rare White Blood Cells 1+ Epithelial cells 4+ Gram positive rods Nasoph. CultNo Haemophilus, Streptococcus pneumoniae, beta-hemolytic Streptococcus or Staphylococcus aureus isolated. :00 Culture, Throat Comments: [facility] [address]nexid[address] [place], [place], [address] CUT See Note (Normal) Comments: Comments: NARESCulture, ThroatNo Haemophilus, Streptococcus pneumoniae, beta-hemolytic Streptococcus or Staphylococcus aureus isolated. 13-Wkk-943078:05 Rapid Flu (39661 x 2) Influenza A Ag neg (Normal) :45 CBC W/Diff, Automated Comments: Order Date: 03/18/16[facility] Date: [facility] [address]abew[address] [place], [place], [address] Absolute Lymph 2.95 {X10_3/ul} (Normal) Range: 0.83-4.51 [...] 1'CKMB' Serial Specimen #1, #2 or #3? 1[facility] Hcbtpkvfio6455 [facility] [place], [address] CKRI 3.2 % (Abnormal) Range: 0.0-1.4 Comments: RELATIVE INDEX >1.5% IS PRESUMPTIVELY POSITIVE CPKMB 1.8 ng/mL (Normal) Range: 0.0-5.0 Comments: CK-MB and RI Interpretation MB Relative Index Non-AMI <or= 5 NA Indeterminate > 5 <or= 4 AMI > 5 > 4 CPK TOTAL 57 U/L (Normal) Range: 26-192 :45 Erythrocyte Sed Rate Comments: Order Date: 03/18/16Order Date: 03/18/16[facility] [address] [place], [address] SED RATE 1 mm/h (Normal) Range: 0-30 :45 Myoglobin, Serum Comments: Order Date: 03/18/16[facility] (refer to report for specific site)refer to report for address and phone number Myoglobin, Ser 23 ng/mL (Abnormal) Range: 25-58 Comments: Performed at: - [facility] [id number] Director: Neo Campos PhD, Phone: [phone] 66-Vgh-539653:45 Troponin-I Comments: Order Date: 03/18/16TROP ADDED 03/19/16Order Date: 03/18/16'TROP' Serial specimen #1, #2, #3, or #4: 1'CKMB' Serial Specimen #1, #2 or #3? [address] [place] [address] [address] [place], [address] TROPONIN-I < 0.02 ng/mL (Normal) Comments: TROPONIN-I EXPECTED VALUES <0.05 NEGATIVE 0.06 - 0.59 AT RISK OF GA > OR = 0.60 SUGGEST GA 74-Obt-930335:00 Basic Metabolic Profile (BMP) Comments: 'TROP' Serial specimen #1, #2, #3, or #4: [address] [place] [address] [address] [place], [address] GAP 6 (Normal) Range: 5-15 CO2 26.0 [...] 7-18 GLU 101 mg/dL (Normal) Range: 70-110 :00 CBC W/Diff, Automated Comments: [facility] [address] [place], [address] Absolute Lymph 2.27 {X10_3/ul} (Normal) Range: 0.83-4.51 [...] 4.2-5.4 WBC 4.9 K/mm3 (Normal) Range: 4.4-11.0 37-Sxn-478257:00 Lipase Comments: 'TROP' Serial specimen #1, #2, #3, or #4: [address] [place] [address] [address] [place], [address] LIPASE 351 U/L (Normal) Range: 73-393 95-Ioz-976594:00 Liver Profile Comments: 'TROP' Serial specimen #1, #2, #3, or #4: [address] [place] [address] [address] [place], [address] D BILI 0.15 mg/dL (Normal) Range: 0.00-0.30 T BILI 0.30 mg/dL (Normal) Range: 0.20-1.00 ALT 23 U/L (Normal) Range: 12-78 ALK P 81 U/L (Normal) Range: 50-136 AST 24 U/L (Normal) Range: 15-37 GLOB 2.8 g/dL (Normal) Range: 2.3-3.5 ALB 4.0 g/dL (Normal) Range: 3.4-5.0 T PROT 6.8 g/dL (Normal) Range: 6.4-8.2 12-Ksr-916024:00 Troponin-I Comments: 'TROP' Serial specimen #1, #2, #3, or #4: [address] [place] [address] [address] [place], [address] TROPONIN-I < 0.02 ng/mL (Normal) Comments: TROPONIN-I EXPECTED VALUES <0.05 NEGATIVE 0.06 - 0.59 AT RISK OF GA > OR = 0.60 SUGGEST GA 93-Qqg-618819:08 Osmolality, Urine Comments: Order Date: 02/16/16Has pt arrived? [facility] [address] [place], [address] OSMOLALITY,UR 310 {mOsm/KG} (Normal) Comments: OSMOLALITY URINE REFERENCE INTERVALS 24-hour Urine 300 - 900 mOsm/kg Random Urine 50 - 1400 mOsm/kg After 12 Hr fluid restriction >850 mOsm/kg 79-Kry-339848:50 Amylase Comments: [facility] [address] [place], [place], [address] PREMA 80 U/L (Normal) Range: 25-115 56-Whh-737861:50 CBC W/Diff, Automated Comments: [facility] [address] [place], [address] Absolute Lymph 1.51 {X10_3/ul} (Normal) Range: [...] 4.2-5.4 WBC 4.3 K/mm3 (Abnormal) Range: 4.4-11.0 82-Rkn-363495:50 Comprehensive Metabolic Profil Comments: [facility] [address] [place], [address] GAP 6 (Normal) Range: 5-15 CO2 28.0 [...] 7-18 GLU 98 mg/dL (Normal) Range: 70-110 56-Epd-568229:50 Lipase Comments: [facility] [address] [place], [place], [address] LIPASE 424 U/L (Abnormal) Range: 73-393 71-Cxc-741862:50 Osmolality, Serum Comments: [facility] [address] [place], [place], [address] OSMOLALITY,SER 275 {mOsm/KG} (Normal) Range: 275-295 66-Poj-568952:50 Vitamin B12 489 pg/mL (Normal) Comments: [facility] [address] [place], [place], [address] ; will review on 02/19 Range: 211-911 80-Jzd-256928:50 Vitamin D,25 Hydroxy Comments: [facility] [address]rtaxucgb[address] [place], [address] Vitamin D 25-OH 37.6 ng/mL (Normal) Comments: Vitamin D 25(OH) Status Range Deficiency <20 ng/mL (50nmol/L) Insuffciency 20 - 30 ng/mL (50 - 75 nmol/L) Sufficiency 30 - 100 ng/mL (75 - 250 nmol/L) Toxicity >100 ng/mL (>250 nmol/L) 55-Tmz-36628:00 Ferritin Comments: [facility] [address] [place], [address] FERRITIN 13 ng/mL (Normal) Range: 8-252 35-Aen-75945:00 Lipid Profile Comments: [facility] [address] [place], [address] VLDL 28 mg/dL (Normal) Range: 5-40 LDL [...] 200-240 mg/dL Borderline >240 mg/dL High Risk 0-Atx-303732:40 CBC W/Diff, Automated Comments: Order Date: 09/08/15Has pt arrived? [facility] [address]ofi[address] [place], [address] Absolute Lymph 1.80 {X10_3/ul} (Normal) Range: 0.83-4.51 [...] 4.2-5.4 WBC 4.4 K/mm3 (Normal) Range: 4.4-11.0 9-Kgn-631008:40 Comprehensive Metabolic Profil Comments: Order Date: 09/08/15Has pt arrived? [facility] Zjmrguvrhx4902 [facility] [place], [place], [address] GAP -1 (Abnormal) Range: 5-15 CO2 30.0 [...] 7-18 GLU 97 mg/dL (Normal) Range: 70-110 2-Cig-502603:16 Amylase Comments: [facility] [address] [place], [address] PREMA 95 U/L (Normal) Range: 25-115 5-Hku-065703:16 Lipase Comments: [facility] Qctnnftndf[address]367 [place], [address] LIPASE 568 U/L (Abnormal) Range: 73-393 6-Kco-746214:29 Influenza A&B Viral Comments: PATIENT NOT FASTINGPERFORMED BY: Music Messenger (MM) BubbleGab [facility] [id number] Information: SRC:NOS [id number] Culture (05415) Viral Culture,Rapid,Influenza FLUABN (Normal) Comments: Negative:No Influenza A or B detected. 0-Vwy-794206:49 Rapid Flu (40192 x 2) Influenza A Ag neg (Normal) 61-Cms-556305:01 CBC (Auto) (26702) Comments: now and in six months (approximately); PATIENT WAS FASTINGPERFORMED BY: GraftysFormerly [facility] [facility] [address] [id number] Information: [id number], [id number] Platelets 357 {x10E3/uL} (Normal) Range: 150-379 RDW 14.6 % (Normal) Range: 12.3-15.4 MCHC 34.1 g/dL (Normal) Range: 31.5-35.7 MCH 29.8 pg (Normal) Range: 26.6-33.0 MCV 88 fL (Normal) Range: 79-97 Hematocrit 37.0 % (Normal) Range: 34.0-46.6 Hemoglobin 12.6 g/dL (Normal) Range: 11.1-15.9 RBC 4.23 {x10E6/uL} (Normal) Range: 3.77-5.28 WBC 5.7 {x10E3/uL} (Normal) Range: 3.4-10.8 00-Qky-137113:01 Metabolic Panel, Basic Comments: now; PATIENT WAS FASTINGPERFORMED BY: [place] [id number] (93918) Calcium, Serum 9.1 mg/dL (Normal) Range: 8.7-10.2 [...] Glucose, Serum 102 mg/dL (Abnormal) Range: 65-99 39-Afp-379967:01 CALCIFIDIOL (90776) VIT D 25 Comments: now and in six months (approximately); PATIENT WAS FASTINGPERFORMED BY: [employer]70 [address] [place] [id number] Vitamin D, 25-Hydroxy 32.8 ng/mL (Normal) Range: 30.0-100.0 Comments: Vitamin D deficiency has been defined by the [place]wey ofMedicine and an Endocrine Society practice guideline as alevel of serum 25-OH vitamin D less than 20 ng/mL (1,2).The Endocrine Society went on to further define vitamin Dinsufficiency as a level between 21 and 29 ng/mL (2).1. IOM ([place]wey of Medicine). 2010. Dietary reference intakes for calcium and D. [place]: The National Academies Press.2. Candelaria MF, Janey ELIAS, Yolande GROSS, et al. Evaluation, treatment, and prevention of vitamin D deficiency: an Endocrine Society clinical practice guideline. JCEM. 2010; 96(7):1911-30. 0-Crl-565436:06 Sputum Culture (24242) Comments: PATIENT NOT FASTINGPERFORMED BY: [employer] [facility] Medical CenterOthera PharmaceuticalsUNC Health [facility] Ridge [id number] Information: [id number] Result 1 RRF (Normal) Comments: Routine respiratory rajwinder Lower Respiratory Culture Final report (Normal) 1-Zpz-636035:12 Rapid Flu (34450 x 2) Influenza A Ag neg a and b (Normal) 80-Viq-567750:01 Urinalysis, Office (63207) UA - LEUKOCYTE ESTERASE Negative (Normal) UA - NITRITE Negative (Normal) URINE UROBILINGN YANCI TIMED Normal mg/dL (Normal) UA - PROTEIN Negative mg/dL (Normal) UA - PH 6.0 (Normal) Comments: 5.5 UA - BLOOD Negative (Normal) UA - SPECIFIC GRAVITY 1.025 (Normal) UA - KETONES Negative mg/dL (Normal) UA - BILIRUBIN Negative (Normal) UA - GLUCOSE Negative (Normal) 01-Xpy-148857:40 Lipase (58674) Comments: PATIENT NOT FASTINGPERFORMED BY: [facility] Xpmzkk8244 UncovetUNC Health Blue Ridge [id number] Lipase, Serum 113 U/L (Abnormal) Range: 0-59 87-Naj-920780:40 Amylase (09146) Comments: PATIENT NOT FASTINGPERFORMED BY: studdex [facility] Amuxfj1010 UncovetUNC Health Blue Ridge [id number] Information: [id number] Amylase, Serum 104 U/L (Normal) Range: 31-124 3-Wyn-964755:54 Sputum Culture (38288) Comments: PATIENT NOT FASTINGPERFORMED BY: MONA [facility] Etmaft2068 Vila RoadDublin [place] [id number] Information: SRC: THROAT [id number] Result 1 RRF (Normal) Comments: Routine respiratory rajwinder Lower Respiratory Culture Final report (Normal) 0-Rge-836006:55 Pathology Report Comments: PERFORMED BY: KWCYT [facility] [place] Cyto Wzwdl16683 [employer] [facility] [id number] BY: [facility] Dermatopathology Qivibap[address] [id number] Information: [id number] See MATER Comments: Material submitted: .PUNCH BIOPSY [...] description: .RECEIVED IN FORMALIN LABELED JOSE J OCBIAN WITH NO DESIGNATION ONTHE CONTAINER DESIGNATED VULVA [...] IS NEGATIVE FOR FUNGAL FORMS.Pathologist provided ICD-9:692.9CPT .074605, 340290 19-Jqu-560967:41 Lipid Panel (26038) Comments: PATIENT WAS FASTINGPERFORMED BY: LabCoUniversity HospitalBekjpa9256 [facility] [id number] LDL/HDL Ratio 1.0 {ratio_units} (Normal) Range: 0.0-3.2 [...] - 169 >19 years 100 - 199 42-Prk-254742:41 Metabolic Panel, Comments: PATIENT WAS FASTINGPERFORMED BY: WiWideUNC Health Johnston [id number] Information: [id number] Comprehensive (98799) ALT (SGPT) 13 [iU]/L (Normal) Range: 0-32 [...] Glucose, Serum 97 mg/dL (Normal) Range: 65-99 77-Qff-256041:41 Vitamin B-12 (cyanocobalamin) Comments: PATIENT WAS FASTINGPERFORMED BY: MENA PRESTIGEblin [place] [id number] (88556) Vitamin B12 632 pg/mL (Normal) Range: 211-946 :41 CBC (Auto) (63319) Comments: PATIENT WAS FASTINGPERFORMED BY: [facility] [facility] [id number] Platelets 270 {x10E3/uL} (Normal) Range: 150-379 RDW 13.9 % (Normal) Range: 12.3-15.4 MCHC 32.8 g/dL (Normal) Range: 31.5-35.7 MCH 29.5 pg (Normal) Range: 26.6-33.0 MCV 90 fL (Normal) Range: 79-97 Hematocrit 36.6 % (Normal) Range: 34.0-46.6 Hemoglobin 12.0 g/dL (Normal) Range: 11.1-15.9 RBC 4.07 {x10E6/uL} (Normal) Range: 3.77-5.28 WBC 8.5 {x10E3/uL} (Normal) Range: 3.4-10.8 :41 Ferritin ([id number]) Comments: PATIENT WAS FASTINGPERFORMED BY: [facility] [id number] Ferritin, Serum 28 ng/mL (Normal) Range: 15-150 :41 CALCIFIDIOL ([id number]) VIT D 25 Comments: PATIENT WAS FASTINGPERFORMED BY: [facility] [id number] Vitamin D, 25-Hydroxy 24.3 ng/mL (Abnormal) Range: 30.0-100.0 Comments: Vitamin D deficiency has been defined by the [place] [employer] and an Endocrine Society practice guideline as alevel of serum 25-OH vitamin D less than 20 ng/mL (1,2).The Endocrine Society went on to further define vitamin Dinsufficiency as a level between 21 and 29 ng/mL (2).1. IOM ([place] [employer]). 2010. Dietary reference intakes for calcium and D. [place]: The National Academies Press.2. Candelaria MF, Janey ELIAS, Yolande GROSS et al. Evaluation, treatment, and prevention of vitamin D deficiency: an Endocrine Society clinical practice guideline. JCEM. 2010; 96(7):1911-30. :55 CBC-Complete Blood Cnt No Diff Comments: Test performed at:[place] [address] [place] [address] MPV 9.5 fL (Normal) Range: 6.2-12.0 PLT [...] 4.2-5.4 WBC 5.1 K/mm3 (Normal) Range: 4.4-11.0 :55 Ferritin Comments: Test performed at:[facility] [address] [place] [address] [place] [address] FERRITIN 23 ng/mL (Normal) Range: 8-252 :55 Iron Comments: Test performed at:[facility] [address] [place] [address] IRON 75 ug/dL (Normal) Range: 50-170 :53 CBC W/Diff, Automated Comments: Test performed at:[facility] [address] [place] [address] Absolute Lymph 1.57 {X10_3/ul} (Normal) Range: 0.83-4.51 [...] 4.2-5.4 WBC 3.8 K/mm3 (Abnormal) Range: 4.4-11.0 50-Dyv-102480:53 Comprehensive Metabolic Profil Comments: Test performed at:[facility] [address] [place] [address] GAP 5 (Normal) Range: 5-15 CO2 29.0 [...] 7-18 GLU 99 mg/dL (Normal) Range: 70-110 37-Zbi-467929:53 Ferritin Comments: Test performed at:[facility] [address] [place] [address] FERRITIN 13 ng/mL (Normal) Range: 8-252 :53 Lipid Profile Comments: Test performed at:[facility] [address] [place] [address] VLDL 19 mg/dL (Normal) Range: 5-40 [...] 200-240 mg/dL Borderline >240 mg/dL High Risk :53 Vitamin B12 > 2000 pg/mL (Abnormal) Comments: Test performed at:[facility] [address] [place] [address] Range: 211-911 37-Far-676576:46 CBC W/Diff, Automated Comments: Test performed at:[facility] [address] [place] [address] Absolute Lymph 1.87 {X10_3/ul} (Normal) Range: [...] 4.2-5.4 WBC 4.1 K/mm3 (Abnormal) Range: 4.4-11.0 51-Mla-424373:46 Comprehensive Metabolic Profil Comments: Test performed at:[facility] [address] [place], [place] [id number] GAP 4 (Abnormal) Range: 5-15 CO2 28.0 [...] 7-18 GLU 70 mg/dL (Normal) Range: 70-110 23-Vkn-572394:46 Vitamin D,25 Hydroxy Comments: Test performed at:[facility] [address] [place] [address] Vitamin D 25-OH 30.6 ng/mL (Normal) Comments: Vitamin D 25(OH) Status Range Deficiency <20 ng/mL (50nmol/L) Insuffciency 20 - 30 ng/mL (50 - 75 nmol/L) Sufficiency 30 - 100 ng/mL (75 - 250 nmol/L) Toxicity >100 ng/mL (>250 nmol/L) 31-Jql-986110:04 CALCIFIDIOL (07041) VIT D Comments: PATIENT NOT FASTINGPERFORMED BY: [facility] Gh[address]dfe[address] [facility] [id number] Information: [id number] 25 Vitamin D, 25-Hydroxy 19.2 ng/mL (Abnormal) Range: 30.0-100.0 Comments: Vitamin D deficiency has been defined by the [place]wey ofMedicine and an Endocrine Society practice guideline as alevel of serum 25-OH vitamin D less than 20 ng/mL (1,2).The Endocrine Society went on to further define vitamin Dinsufficiency as a level between 21 and 29 ng/mL (2).1. IOM (Dewey of Medicine). 2010. Dietary reference intakes for calcium and D. [place]: The National Academies Press.2. Candelaria MF, Janey ELIAS, Yolande GROSS, et al. Evaluation, treatment, and prevention of vitamin D deficiency: an Endocrine Society clinical practice guideline. JCEM. 2010; 96(7):1911-30. 66-Sfi-004656:04 Ferritin (16369) Comments: PATIENT NOT FASTINGPERFORMED BY: LabCoY'allLjgdfp1329 [employer] ([employer]) [facility] [id number] Ferritin, Serum 34 ng/mL (Normal) Range: 15-150 13-Kuk-550848:05 METABOLIC PANEL, COMPREHENSIVE Comments: PATIENT NOT FASTINGPERFORMED BY: studdex [facility] Juzxpa0089 enosiXUNC Health [facility] [id number] (80414) ALT (SGPT) 10 [iU]/L (Normal) Range: 0-32 [...] Glucose, Serum 86 mg/dL (Normal) Range: 65-99 79-Lkc-034328:05 CBC WITH MANUAL DIFF Comments: PATIENT NOT FASTINGPERFORMED BY: MONA [employer] (MM)[facility]cjr[facility] [id number] Information: [id number],2ND ORDER NO DRAW F EE (44559) Immature Grans (Abs) 0.0 {x10E3/uL} (Normal) Range: [...] 3.77-5.28 WBC 5.2 {x10E3/uL} (Normal) Range: 3.4-10.8 14-Juc-173605:05 CALCIFIDIOL (98657) VIT D 25 Comments: PATIENT NOT FASTINGPERFORMED BY: GraftysFormerly [facility] [facility] [id number] Vitamin D, 25-Hydroxy 19.6 ng/mL (Abnormal) Range: 30.0-100.0 Comments: Vitamin D deficiency has been defined by the Dewey ofMedicine and an Endocrine Society practice guideline as alevel of serum 25-OH vitamin D less than 20 ng/mL (1,2).The Endocrine Society went on to further define vitamin Dinsufficiency as a level between 21 and 29 ng/mL (2).1. IOM (Dewey of Medicine). 2010. Dietary reference intakes for calcium and D. [place]: The National Academies Press.2. Candelaria MF, Janey ELIAS, Yolande GROSS, et al. Evaluation, treatment, and prevention of vitamin D deficiency: an Endocrine Society clinical practice guideline. JCEM. 2010; 96(7):1911-30. : B12 446 pg/mL (Normal) Range: 211-911 [...] CHOL 168 mg/dL (Normal) Comments: <200 mg/dL Baqsdjfys038-136 mg/dL Borderline>240 mg/dL High Risk 7-Ezl-461636:51 VITD 38.8 mg/mL (Normal) Comments: Vitamin D 25(OH) Status RangeDeficiency <20 ng/mL (50nmol/L)Insuffciency 20 - 30 ng/mL (50 - 75 nmol/L)Sufficiency 30 - 100 ng/mL (75 - 250 nmol/L)Toxicity >100 ng/mL (>250 nmol/L) 00-Nfa-734490:07 Lipase (47962) Comments: PERFORMED BY: MENA PRESTIGEUNC Health [facility] [id number] Lipase, Serum 67 U/L (Abnormal) Range: 0-59 35-Hlp-422268:07 Amylase (13210) Comments: PERFORMED BY: MENA PRESTIGEUNC Health [facility] [id number] Amylase, Serum 92 U/L (Normal) Range: 31-124 43-Dvy-957312:11 Urinalysis, Office (00196) UA - LEUKOCYTE ESTERASE Negative (Normal) UA - NITRITE Negative (Normal) URINE UROBILINGN YANCI TIMED Normal mg/dL (Normal) UA - PROTEIN Negative mg/dL (Normal) UA - PH 5 (Abnormal) Comments: 5.5 UA - BLOOD Negative (Normal) UA - SPECIFIC GRAVITY 1.015 (Normal) UA - KETONES 15 mg/dL (Abnormal) UA - BILIRUBIN Small (Normal) UA - GLUCOSE Negative (Normal) 07-Cyg-831195:28 GRETTA CULTURE-OTHER (56381) Comments: PATIENT NOT FASTINGPERFORMED BY: studdex LabCoGrowish [facility] [id number] Information: SRC:THRT Q74200 Result 1 RRF (Normal) Comments: Routine respiratory rajwinder Upper Respiratory Culture Final report (Normal) 72-Xbi-763112:32 Rapid Strep Test, Office (61173) Rapid Strep Test, Office Negative (Normal) 23-Dnd-048274:02 Iron Binding Capacity Comments: PATIENT NOT FASTINGPERFORMED BY: LabCoUniversity HospitalNesltk3563 [facility] [id number] Information: [id number],C50895 (TIBC) (30915) Iron Saturation 6 % (Abnormal) Range: 15-55 Iron, Serum 32 ug/dL (Abnormal) Range: 35-155 UIBC 461 ug/dL (Abnormal) Range: 150-375 Iron Bind.Cap.(TIBC) 493 ug/dL (Abnormal) Range: 250-450 60-Nsm-454440:02 Ferritin (43647) Comments: PATIENT NOT FASTINGPERFORMED BY: LabCoUniversity HospitalEaseba4358 [facility] [id number] Ferritin, Serum 7 ng/mL (Abnormal) Range: 15-150 :19 PREMA 80 U/L (Normal) Range: 25-115 6-Vrt-814750:19 B12 386 pg/mL (Normal) Range: 211-911 :19 [...] CHOL 181 mg/dL (Normal) Comments: <200 mg/dL Vjkukvvfb600-797 mg/dL Borderline>240 mg/dL High Risk :19 VITD [...] 7-18 GLU 79 mg/dL (Normal) Range: 70-110 25-Fkh-960552:18 TS Ab SCREEN GEL NEGATIVE (Normal) SCREEN CELL I NEGATIVE (Normal) SCREEN CELL II NEGATIVE (Normal) SCREEN CELL III NEGATIVE (Normal) BLOOD TYPE GEL O POSITIVE (Normal) 24-Vka-835824:17 Metabolic Panel, Comments: PATIENT NOT FASTINGPERFORMED BY: MONA [facility] [address] [place] [id number] Information: [id number] [facility] (28758) ALT (SGPT) 13 [iU]/L (Normal) Range: 0-32 [...] 4.2-5.4 WBC 5.0 K/mm3 (Normal) Range: 4.4-11.0 :19 CMP GAP 9 (Normal) Range: 5-15 CO2 [...] :41 PREMA 80 U/L (Normal) Range: 25-115 68-Gee-933195:41 CBCD ABSOLUTE NEUT 3.9 3/uL (Normal) Range: [...] s (Normal) Range: 11.9-14.4 :41 VIT D,25 45392 20.3 ng/mL (Abnormal) Range: 30.0-100.0 Comments: Vitamin D deficiency has been defined by the Dewey ofMedicine and an Endocrine Society practice guideline as alevel of serum 25-OH vitamin D less than 20 ng/mL (1,2).The Endocrine Society went on to further define vitamin Dinsufficiency as a level between 21 and 29 ng/mL (2).1. IOM (Dewey of Medicine). 2010. Dietary reference intakes for calcium and D. [place]: The National Academies Press.2. Candelaria MF, Janey [place], Yolande GROSS, et al. Evaluation, treatment, and prevention of vitamin D deficiency: an Endocrine Society clinical practice guideline. JCEM. 2010; 96(7): 1911-30.Performed at: [address] [id number] Director: Yony San MD, Phone: [phone] at: [facility] LabCo[address] [id number] Director: Era Tinoco MD, Phone: [phone] :[phone] VITD 1,25 79184 44.5 pg/mL (Normal) Range: 10.0-75.0 :09 PREMA [...] 4.2-5.4 WBC 6.2 K/mm3 (Normal) Range: 4.4-11.0 :09 COMP METABOLIC GAP 11 (Normal) Range: 5-15 [...] :09 FERRITIN 18 ng/mL (Normal) Range: 8-252 :09 LIPASE 280 U/L (Normal) Range: 70-290 Comments: Please note:LIPASE revised reference range effective 09. 64-Vla-890691:05 LIPID Comments: COMMENTS: FAX RESULTS TO DR [...] 200-240 mg/dL Borderline >240 mg/dL High Risk 18-Ypp-360719:54 BILAT SCRN DIGITAL & CAD Radiology Report [...] IMPORTSign by Bartolome Patel MD on 11/20/10 011 Sign by: Bartolome Patel MD 82-Zgo-495807:54 DEXA BONE DENSITY STUDY (HP) Radiology Report See Note (Normal) Comments: CLINICAL:Female, 55 years old. The patient is postmenopausal. EXAMINATION:DUAL ENERGY X-RAY ABSORPTIOMETRY / DEXA. TECHNIQUE:Bone Mineral Density (BMD) measurements of lumbar spine and bila teralhipswer e obtained using a [employer]pec[employer] scanner.. COMPARISON:Comparison is made with prior study [...] [email or web address] [email or web address] Dictated on 11/19/10 1420 by Amanda DURAN,Jaciranscribed on 11/20/1030 by ITS IMPORTSign by Amanda DURAN,Bartolome on 11/20/1030 Sign by: Bartolome Patel MD 4-Dcc-294699:46 DESIRAE DIR SEMI-QL Comments: ORDERED CBC LUZ MARINA FEDRCOREY ORDERED CMP CBCD CRP ESR VITD HEPB SURF AB CCPHEPB IRINA AG HEPC DESIRAE RA HEPB CORE IGM UAC SCL70 ANTOINE ANTI JOANTICENT AB SSA SSB DNA UAPROTEIN C3 C4 TSH DESIRAE DIRECT 56 AU/mL (Normal) 4-Gbg-258931:46 ANEX PANEL Comments: ORDERED CBC LUZ MARINA FEDRCOREY ORDERED CMP CBCD CRP ESR VITD HEPB SURF AB CCPHEPB IRINA AG HEPC DESIRAE RA HEPB CORE IGM UAC SCL70 ANTOINE ANTI JOANTICENT AB SSA SSB DNA UAPROTEIN C3 C4 TSH; appt 11/02/10 AUTOMOTIVE ELECTRICAL FITTER AB 14 AU/mL (Normal) ANTI-OTRRES AB 7 AU/mL (Normal) 5-Ktj-471826:46 ANTI JO1 Comments: ORDERED CBC LUZ MARINA FEDRCOREY ORDERED CMP CBCD CRP ESR VITD HEPB SURF AB CCPHEPB IRINA AG HEPC DESIRAE RA HEPB CORE IGM UAC SCL70 ANTOINE ANTI JOANTICENT AB SSA SSB DNA UAPROTEIN C3 C4 TSH ANTI LAMAR 7 AU/mL (Normal) 2-Kde-124578:46 ANTI SCL 70 Comments: ORDERED CBC LUZ MARINA FEDRCOREY ORDERED CMP CBCD CRP ESR VITD HEPB SURF AB CCPHEPB IRINA AG HEPC DESIRAE RA HEPB CORE IGM UAC SCL70 ANTOINE ANTI JOANTICENT AB SSA SSB DNA UAPROTEIN C3 C4 TSH ANTI-SCL 70 14 AU/mL (Normal) :46 ANTI-CCP 784079 < 1 {units} (Normal) Comments: ORDERED CBC LUZ MARINA FEDRCOREY [...] mg/L (Normal) Comments: ORDERED CBC LUZ MARINA FEDRCOREY [...] :46 CBCD Comments: ORDERED CBC LUZ MARINA FEDRCOREY ORDERED [...] COMP METABOLIC Comments: ORDERED CBC LUZ MARINA RODRIGUEZ ORDERED [...] 0.6-1.0 GLU 91 mg/dL (Normal) Range: 70-110 0-Sas-228863:46 ESR Comments: ORDERED CBC LUZ MARINA RODRIGUEZ ORDERED CMP CBCD CRP ESR VITD HEPB SURF AB CCPHEPB IRINA AG HEPC DESIRAE RA HEPB CORE IGM UAC SCL70 ANTOINE ANTI JOANTICENT AB SSA SSB DNA UAPROTEIN C3 C4 TSH SED RATE 5 mm/h (Normal) Range: 0-30 6-Esf-458756:46 FERRITIN 9 ng/mL (Normal) Comments: ORDERED CBC LUZ MARINA RODRIGUEZ ORDERED CMP CBCD CRP ESR VITD HEPB SURF AB CCPHEPB IRINA AG HEPC DESIRAE RA HEPB CORE IGM UAC SCL70 ANTOINE ANTI JOANTICENT AB SSA SSB DNA UAPROTEIN C3 C4 TSH Range: 8-252 :46 HB CORE [id number] SeeNote (Normal) Comments: ORDERED CBC LUZ MARINA FEDRCOREY ORDERED CMP CBCD CRP ESR VITD HEPB SURF AB CCPHEPB IRINA AG HEPC DESIRAE RA HEPB CORE IGM UAC SCL70 ANTOINE ANTI JOANTICENT AB SSA SSB DNA UAPROTEIN C3 C4 TSH Comments: Result: Negative Performed at: - [facility] [address] [id number] Director: Era Tinoco MD, Phone: [phone] at: - [facility] [address] [id number] Director: Yony San MD, Phone: [phone] :[phone] HBsAg 6510 Comments: ORDERED CBC LUZ [...] of antibody present. :46 HEP C AB 470528 <0.1 (Normal) Comments: ORDERED CBC LUZ MARINA FEDRCOREY [...] AU/mL (Normal) Comments: ORDERED CBC LUZ MARINA FEDR.STEFANY ORDERED CMP CBCD CRP ESR VITD HEPB SURF AB CCPHEPB IRINA AG HEPC DESIRAE RA HEPB CORE IGM UAC SCL70 ANTOINE ANTI JOANTICENT AB SSA SSB DNA UAPROTEIN C3 C4 TSH :46 SJOGRENS SSB Comments: ORDERED CBC LUZ MARINA FEDRCOREY ORDERED [...] DNA UAPROTEIN C3 C4 TSH Range: 0.358-3.74 1-Vrc-699675:46 VIT D,25 08064 9.3 ng/mL (Abnormal) Comments: ORDERED CBC LUZ MARINA MICHAEL ORDERED CMP CBCD CRP ESR VITD HEPB SURF AB CCPHEPB IRINA AG HEPC DESIRAE RA HEPB CORE IGM UAC SCL70 ANTOINE ANTI JOANTICENT AB SSA SSB DNA UAPROTEIN C3 C4 TSH Range: 32.0-100.0 Comments: Recent studies consider the lower limit of 32.0 ng/mL to jayleen threshold for optimal health.Ortiz SANCHEZ. J Nutr. 2004;135(2):317-22. 52-Yhm-417569:10 CBC Comments: COMMENTS: FAX RESULTS TO DR. [...] 4.2-5.4 WBC 9.8 K/mm3 (Normal) Range: 4.4-11.0 :10 FERRITIN 21 ng/mL (Normal) Comments: COMMENTS: FAX RESULTS TO DR. CECI FARIAS DRAWRESULTS FAXED 07/17/10 VLADIMIR SALAMANCA. Range: 8-252 20-Lvx-429557:10 IRON 125 ug/dL (Normal) Comments: COMMENTS: FAX RESULTS TO DR. CECI FARIAS DRAWRESULTS FAXED 07/17/10 VLADIMIR SALAMANCA. Range: 50-170 15-Nvv-617198:20 CBC With Differential/Platelet Comments: PERFORMED BY: [facility] Bacdzg[address] [facility] [id number] Baso (Absolute) 0.0 {x10E3/uL} (Normal) Range: 0.0-0.2 [...] 11.7-15.0 WBC 5.3 {x10E3/uL} (Normal) Range: 4.0-10.5 26-Xwb-004244:20 Comp. Metabolic Panel (14) Comments: PERFORMED BY: [facility] [id number] ALT (SGPT) 18 [iU]/L (Normal) Range: 0-40 [...] Serum 14 ng/mL (Normal) Comments: PERFORMED BY: [facility] [facility] [id number] 14:20 Range: 13-150 82-Gfo-378058:20 Iron and TIBC Comments: PERFORMED BY: [facility] [id number] Iron Saturation 23 % (Normal) Range: 15-55 Iron, Serum 106 ug/dL (Normal) Range: 35-155 UIBC 361 ug/dL (Normal) Range: 150-375 Iron Bind.Cap.(TIBC) 467 ug/dL Range: 250-450 (Abnormal) 61-Hil-529819 TSH 1.760 {uIU/mL} Comments: PERFORMED BY: [facility] [address] [place] [id number] :20 (Normal) Range: 0.450-4.500 C DIF TOXIN/AG See Note (Normal) Comments: PT COLLECTED SPECIMEN 12/30 @2300 :45 Comments: C. DIFF ANTIGENS NEGATIVE :45 CUL STOOL/SHIG Comments: PT COLLECTED SPECIMEN 12/30 @2300 CULTURE, STOOL See Note (Normal) Comments: COPY OF REPORT S[facility]. No Salmonella, Shigella or Yersinia isolated.No [...] Crytosporidium parvum,Cyclospora, or Microsporidia.__ TESTING PERFORMED AT [facility]. ORIGINAL REPORT ONFILE IN LAB [...] Comments: COMMENTS: IV THERAPY DRAWING Range: 25-115 70-Jgy-701116:10 LIPASE 199 U/L (Normal) Comments: COMMENTS: IV THERAPY DRAWING Range: 70-290 Comments: Please note:LIPASE revised reference range effective 09. 22-Bmt-580840:10 RENAL Comments: COMMENTS: IV THERAPY DRAWING CO2 [...] (Normal) GLU 102 mg/dL (Normal) Range: 70-110 32-Akw-648817:37 OCCULT BLOOD FECES SCREEN (66591) OCCULT BLOOD FECES SCREEN negative (Normal) 64-Cjx-771460:03 CBCD,SMEAR DIFF PLT EST SeeNote (Normal) Comments: [...] 6.4-8.2 GLU 94 mg/dL (Normal) Range: 70-110 29-Ffg-071200:03 FERRITIN 12 ng/mL (Normal) Range: 8-252 :03 IRON 128 ug/dL (Normal) Range: 50-170 53-Pmx-918427:03 LIPID LDL 86 mg/dL (Normal) Range: 0-130 VLDL 18 mg/dL (Normal) Range: 5-40 HDL 79 mg/dL (Normal) Comments: Reference RangeHDL <40 mg/dL Low HDL CholesterolHDL >or= 60 mg/dL High HDL Cholesterol CHOL 183 mg/dL (Normal) Comments: <200 mg/dL Xknqqbcnw805-712 mg/dL Borderline>240 mg/dL High Risk TRIG 88 mg/dL (Normal) Comments: Serum Triglycerides Reference IntervalNormal <150 mg/dLBorderline high 150 - 199 mg/dLHigh 200 - 499 mg/ dLVery High > or = 500 mg/dL 40-Sqi-380633:03 VITAMIN B12 342 pg/mL (Normal) Range: 254-1320 10-Apr-20090:00 FLU A+B DIRECT See Note (Normal) Comments: Negative test results should be confirmed by culture. Order Rapid Viral Culture for Influenzae A+B (285761) if clinically indicated. INFLUENZA ANTIGEN,DIRECT Presumptive NEGATIVE for Influenza A/B Antigen (See Note) 39-Veu-652178:43 CHEST, PA AND LATERAL Radiology Report See Note (Normal) Comments: Exam Number: [id number] CLINICAL DATAInterstitial lung disease, cough. CHEST PA [...] pneumonia. Possible bronchitis. Reported By: FLORINDA CAMPOS 30-Cwh-841655:45 L/S SPINE,MIN 4 VIEWS Radiology Report See Note (Normal) Comments: Exam Number: [id number] CLINICAL PROBLEMLow back pain post fall. LUMBAR [...] and spondylosis. Reported By: AROLDO TILLMAN M.D. 30-Ruj-255474:44 KNEE,4 OR MORE VIEWS Radiology Report See Note (Normal) Comments: Exam Number: [id number] CLINICAL PROBLEMPain both knees post fall. FOUR [...] patellofemoral compartments. Reported By: AROLDO TILLMAN M.D. 10-Fyw-804848:44 KNEE,4 OR MORE VIEWS Radiology Report See Note (Normal) Comments: Exam Number: [id number] CLINICAL PROBLEMLeft knee pain status post fall. [...] Order Rapid Viral Culture for Influenzae A+B ([id number]) if clinically indicated. INFLUENZA ANTIGEN,DIRECT Presumptive NEGATIVE for Influenza A/B Antigen (See Note) 12-Sep-2008 PREMA 66 U/L (Normal) Range: 25-115 12:11 42-Aeh-136880:11 CBCD BASO% 0.2 % (Normal) Range: 0-1 [...] 4.2-5.4 WBC 4.2 K/mm3 (Abnormal) Range: 4.4-11.0 50-Mzw-090354:11 COMP METABOLIC A/G 1.2 {RATIO} (Normal) Range: [...] T PROT 6.9 g/dL (Normal) Range: 6.4-8.2 :11 ESR SED RATE 3 mm/h (Normal) Range: 0-30 :11 LIPASE 229 U/L (Normal) Range: 114-286 :11 [...] :11 MG 1.9 mg/dL (Normal) Range: 1.5-2.2 41-Hca-689950:00 CBCD BASO% 0.3 % (Normal) Range: 0-1 [...] T PROT 6.7 g/dL (Normal) Range: 6.4-8.2 09-Lgl-383757:00 METHYLM 501570 330 nmol/L (Normal) Range: 73-376 Comments: The reference range for methylmalonic acid has been set at+3sd above the mean for healthy blood bank donors. In theclinical assessment of patients with megaloblastic anemiasa cutoff of +3sd provides gre ater specificity in thediagnosis of the vitamin deficiency states, despite thesacrifice of some sensitivity.Performed At: [address] [id number] 0-Jld-340494:55 Lower Respiratory Culture Comments: Clinical Information: SRC:SP PERFORMED BY: MONA [facility] [facility] [id number] Lower Respiratory Culture Final report (Normal) Result 1 RRF (Normal) Comments: Routine respiratory rajwinder 51-Hvt-27296:3 PREMA 62 U/L (Normal) Range: 25-115 6 :36 DESIRAE-D 281805 DESIRAE-DIRECT 23 AU/mL (Normal) Range: 0-99 Comments: [...] {IU/mL} (Normal) Range: 0.0-13.9 Comments: Performed At: [address] [id number] :36 TSH 1.76 {uIU/mL} (Normal) Range: 0.34-4.82 :29 HgA1C , Office (31206) HgA1C , Office 5.5 % (Normal) Range: 4.6 - 7.1 7-Tnk-383711:29 Blood Glucose , Office (93825) Blood Glucose , Office 108 (Normal) :51 CHEST, PA AND LATERAL Radiology Report See Note (Normal) Comments: Exam Number: [id number] PA AND LATERAL CHEST HISTORY Being done [...] acute infiltrate. Reported By: JERARDO BEAULIEU M.D. 0-Aio-376868:57 Rapid Flu (35391 x 2) INFLUENZA IMMUNOASSY DIRECT OPTICAL OBSERV negative (Normal) Comments: aw 72-Dmx-675564:57 LIPID CHOL 186 mg/dL (Normal) Comments: <200 [...] mg/dL VLDL 43 mg/dL (Abnormal) Range: 5-40 63-Qkk-898019:57 VITAMIN B12 370 pg/mL (Normal) Range: 211-911 :57 VITD 1,25 80372 69.6 (Normal) Comments: Performed At: [address] [id number] 91-Qwc-361671:47 CHEST, PA AND LATERAL Radiology Report See Note (Normal) Comments: Exam Number: [id number] PA AND LATERAL CHEST HISTORY Being done [...] perihilar infiltrate. Reported By: JERARDO BEAULIEU M.D. :08 Upper Respiratory Culture Comments: Clinical Information: SRC:TH PERFORMED BY: [facility] [id number] Result 1 RRF (Normal) Comments: Routine respiratory rajwinder Upper Respiratory Culture Final report (Normal) 4-Gma-675335:39 CHEST WITHOUT CONTRAST Radiology Report See Note (Normal) Comments: Exam Number: [id number] CT SCAN OF CHEST HISTORYNeoplasm of uncertain [...] PREMA 73 U/L (Normal) Range: 25-115 :01 94-Tzg-610147:01 CBCD BASO% 0.3 % (Normal) Range: 0-1 [...] 11.6-14.6 WBC 4.7 K/mm3 (Normal) Range: 4.4-11.0 40-Kop-068904:01 COMP METABOLIC A/G 1.1 {RATIO} (Normal) Range: [...] mg/dL VLDL 15 mg/dL (Normal) Range: 5-40 68-Ahs-519073:40 BC No growth in 5 days. Comments: COMMENTS: ROOM 12 (Normal) 94-Wqk-146725:20 COMPLETE UA Comments: COMMENTS: ROOM 12HOLD IN [...] WBC 0 SEEN {/hpf} (Normal) Range: 0-5 92-Fad-689969:10 BMP Comments: COMMENTS: ROOM 12 BUN 8 [...] 3.5-5.1 NA 132 mmol/L (Abnormal) Range: 136-145 79-Azs-047172:10 CBCD Comments: COMMENTS: ROOM 12 BASO% 0.2 [...] (Normal) WBC 10.6 K/mm3 (Normal) Range: 4.4-11.0 99-Idb-102876:10 LIPASE 212 U/L (Normal) Comments: COMMENTS: ROOM 12 Range: 114-286 86-Uaz-581418:10 LIVER Comments: COMMENTS: ROOM 12 ALB 3.4 [...] 29 [iU]/L (Abnormal) Range: 30-65 :07 DESIRAE-D 253390 DESIRAE-DIRECT 24 U/mL (Normal) Range: 0-99 Comments: Negative <100 Equivocal 100 - 120 Positive >120Performed At: [facility] [place], [place] [id number] At: [address] [id number] :07 See Note (Normal) Comments: CHECK BLOOD [...] 5.8 K/mm3 (Normal) Range: 4.4-11.0 :07 HISTOPL 946701 SeeNote (Normal) Comments: Result: Negative : RA LATEX 6502 8.6 {IU/mL} (Normal) Range: 0.0-13.9 66-Dok-440309:24 CHEST, PA AND LATERAL Radiology Report See Note (Normal) Comments: Exam Number: [id number] CHEST, PA AND LATERAL HISTORYFever and cough. COMPARISONNone. FINDINGSThere is an indwelling Fumr-A-Nbhldkum on the right side particularlyin the SVC. The heart, aorta, and media stinum are normal. Lungs areclear. There is no evidence of consolidation, effusion, congestion,or nodules. There are clips in the region of the esophageal hiatus. IMPRESSIONClear lungs. Reported By: AN YOUNG M.D. 55-Vkp-160115:0 BC No growth in 5 days. 0 (Normal) :5 PREMA 71 U/L (Normal) Range: 25-115 0 97-Kkb-151121:5 BC No growth in 5 days. 0 [...] mm/h (Normal) Range: 0-30 :02 Urinalysis, Office (23386) Comments: ABn signed CH UA - BILIRUBIN [...] :19 LIPASE 212 U/L (Normal) Range: 114-286 :19 VIT B12 1503 147 pg/mL (Abnormal) Range: 211-911 Comments: Performed At: [address] [id number] 7-Bvq-426731:00 CULTURE, THROAT See Note (Normal) Comments: Normal throat rajwinder isolated. No beta-hemolyticstreptococcus isolated. 4-Nqx-276624:52 Urinalysis, Office (24122) UA - BILIRUBIN Negative (Normal) UA - [...] elsewhere and of unspecified site Planned Observations AMYLASE ([id number])Indication: Chronic pancreatitis On: 11-Bsj-674778:48 Request LIPASE ([id number])Indication: Chronic pancreatitis On: 18-Gpo-641466:48 Request METABOLIC PANEL, COMPREHENSIVE ([id number])Indication: Chronic pancreatitis On: 92-Dok-434860:47 Request LIPOPROTEIN, BLD, BY NMR ([id number])Indication: Hyperlipidemia On: 99-Mgf-716917:47 Request Ferritin (59554)Indication: Iron deficiency anemia due to dietary causes On: 41-Rkb-995357:51 Request URINE GRETTA CULTURE-IDENTIFICATN ([id number])Indication: Urgency incontinence On: 98-Wot-869243:58 Request LIPASE ([id number])Indication: Chronic pancreatitis On: :51 Request AMYLASE (23010)Indication: Chronic pancreatitis On: :50 Request URINALYSIS (04679)Indication: Chronic pancreatitis On: :50 Request CBC WITH MANUAL DIFF ([id number])Indication: Chronic pancreatitis On: :50 Request Metabolic Panel, Comprehensive ([id number])Indication: Chronic pancreatitis On: :50 Request PT (PROTHROMBIN TIME) ([id number])Indication: PFO (patent foramen ovale) On: 23-Mnk-914250:36 Request Vitamin B-12 (cyanocobalamin) (74440)Indication: S/P gastric bypass On: :21 Request Ferritin (60477)Indication: Iron deficiency anemia due to dietary causes On: : Request CBC, Platelets & Auto Diff ([id number])Indication: Chronic pancreatitis On: :21 Request Metabolic Panel, Comprehensive (75353)Indication: Chronic pancreatitis On: 5-Rch-086640:21 Request CALCIFIDIOL (71661) VIT D 25Indication: Vitamin D deficiency, unspecified On: 52-Hjl-23265:55 Request Comments: re check in 8 weeks Sed Rate Erythrocyte (24176)Indication: Fever On: 84-Qxa-958619:39 Request URINALYSIS (57586)Indication: Fever On: :33 Request URINE GRETTA CULTURE-IDENTIFICATN (41458)Indication: Fever On: 69-Ztl-055736:33 Request CALCIFIDIOL (59480) VIT D 25Indication: Vitamin D deficiency, unspecified On: :32 Request CBC, Platelets & Auto Diff (44151)Indication: Iron deficiency anemia due to dietary causes On: :32 Request Ferritin (79008)Indication: Iron deficiency anemia due to dietary causes On: 49-Rlr-639953:32 Request GRETTA CULTURE-BLOOD (64015)Indication: Fever On: 13-Ryu-460291:30 Request Comments: ONE FROM PORT AND ONE PERIPHERAL CALCIFIDIOL (83129) VIT D 25Indication: Vitamin D deficiency, unspecified On: 16-Yyy-678862:24 Request FERRITIN ([id number])Indication: Iron deficiency anemia due to dietary causes On: 97-Hqx-721459:22 Request EBV ANTIBODY VCA/EA 67187 (52339)Indication: Fatigue On: 80-Opz-121609:31 Request Comments: please do VCA IGM Ferritin (30847)Indication: Iron deficiency anemia due to dietary causes On: 42-Udh-153235:00 Request CALCIFIDIOL (42727) VIT D 25Indication: Vitamin D deficiency, unspecified On: 90-Jsa-595762:00 Request EBV Panel ([id number])Indication: Pharyngitis, acute On: 35-Rqa-174926:58 Request Influenza A&B Viral Culture (78753)Indication: Fever On: 9-Sse-439497:34 Request GRETTA CULTURE-OTHER (61260)Indication: Fever On: 6-Etx-212147:33 Request Rapid Strep Test, Office (76529)Indication: Fever On: 3-Kcc-788008:18 Request Troponin I (56770)Indication: Chest pain at rest On: 68-Hgw-403440:43 Request Comments: pls add to labs already done MYOGLOBIN (29910)Indication: Chest pain at rest On: 34-Tjr-463620:25 Request CPK MB FRACTION (95953)Indication: Chest pain at rest On: 97-Mul-582619:25 Request Sed Rate Erythrocyte (06040)Indication: Chest pain at rest On: :25 Request CBC WITH MANUAL DIFF (16562)Indication: Chest pain at rest On: 52-Dlo-171665:25 Request CALCIFEDIOL (98335)Indication: OTHER AND UNSPECIFIED POSTSURGICAL NONABSORPTION On: 9-Fnu-282634:12 Request PARATHORMONE (56372)Indication: OTHER AND UNSPECIFIED POSTSURGICAL NONABSORPTION On: 6-Uea-373947:12 Request Magnesium (07199)Indication: OTHER AND UNSPECIFIED POSTSURGICAL NONABSORPTION On: 1-Ogm-544494:12 Request Phosphorus (49724)Indication: OTHER AND UNSPECIFIED POSTSURGICAL NONABSORPTION On: 2-Xgf-577894:12 Request IRON ([id number])Indication: OTHER AND UNSPECIFIED POSTSURGICAL NONABSORPTION On: :12 Request FERRITIN ([id number])Indication: OTHER AND UNSPECIFIED POSTSURGICAL NONABSORPTION On: :12 Request ZINC, BLOOD (15692)Indication: OTHER AND UNSPECIFIED POSTSURGICAL NONABSORPTION On: :12 Request VITAMIN A (93060)Indication: OTHER AND UNSPECIFIED POSTSURGICAL NONABSORPTION On: :12 Request TSH ([id number])Indication: OTHER AND UNSPECIFIED POSTSURGICAL NONABSORPTION On: : Request MAGNESIUM (40467)Indication: OTHER AND UNSPECIFIED POSTSURGICAL NONABSORPTION On: : Request Folic Acid Serum (65394)Indication: OTHER AND UNSPECIFIED POSTSURGICAL NONABSORPTION On: : Request CHROMIUM (10177)Indication: OTHER AND UNSPECIFIED POSTSURGICAL NONABSORPTION On: : Request ASSAY, HOMOCYSTINE ([id number])Indication: OTHER AND UNSPECIFIED POSTSURGICAL NONABSORPTION On: :12 Request Metabolic Panel, Basic (65499)Indication: Abdominal pain On: 80-Dgx-226324:11 Request Comments: do on this tuesday OSMOLALITY URINE (76325)Indication: Abdominal pain On: :11 Request Comments: today in ambulatory OSMOLALITY BLOOD (21233)Indication: Abdominal pain On: 64-Obh-423340:11 Request Comments: today in ambulatory Lipase (81591)Indication: Abdominal pain On: 77-Hbe-526776:11 Request Comments: today in ambulatory Amylase (21170)Indication: Abdominal pain On: 33-Ivf-955811:11 Request Comments: today in ambulatory CBC, Platelets & Auto Diff (06276)Indication: Abdominal pain On: 17-Bjq-300061:11 Request Comments: today in ambulatory Metabolic Panel, Comprehensive ([id number])Indication: Abdominal pain On: 89-Hgj-954202:10 Request Comments: today in ambulatory AMYLASE (48862)Indication: Abdominal pain On: 9-Nzh-032788:12 Request LIPASE (48670)Indication: Abdominal pain On: 3-Esi-500761:12 Request Ferritin (39158)Indication: Iron deficiency anemia due to dietary causes On: 14-Cpl-312783:20 Request Comments: in six months (approximately) Vitamin B-12 (cyanocobalamin) (55189)Indication: Other vitamin B12 deficiency anemia On: :19 Request Comments: in six months (approximately) Lipid Panel (95546)Indication: High blood triglycerides On: :19 Request Comments: in six months (approximately) Metabolic Panel, Comprehensive (22693)Indication: Chronic pancreatitis On: :19 Request Comments: in six months (approximately) Vitamin B-12 (cyanocobalamin) (45605)Indication: Other vitamin B12 deficiency anemia On: 81-Tno-884500:27 Request METABOLIC PANEL, COMPREHENSIVE (34887)Indication: High blood triglycerides On: :19 Request LIPID PANEL (74144)Indication: High blood triglycerides On: :19 Request CBC, Platelets & Auto Diff (64345)Indication: Iron deficiency anemia due to dietary causes On: 86-Hhy-171074:15 Request Ferritin (35810)Indication: Iron deficiency anemia due to dietary causes On: 89-Lpr-188168:15 Request Iron (37814)Indication: Iron deficiency anemia due to dietary causes On: 36-Kmb-158846:29 Request Comments: recheck in 4 weeks pt needs to be fasting Iron Binding Capacity (TIBC) (91579)Indication: Iron deficiency anemia due to dietary causes On: 78-Gpp-462895:29 Request Comments: recheck in 4 weeks pt needs to be fasting Ferritin (99481)Indication: Iron deficiency anemia due to dietary causes On: 15-Drn-481978:28 Request Comments: recheck in 4 weeks pt needs to be fasting METABOLIC PANEL, COMPREHENSIVE (32488)Indication: High blood triglycerides On: :33 Request LIPID PANEL (35417)Indication: High blood triglycerides On: :33 Request CBC (Auto) ([id number])Indication: Iron deficiency anemia due to dietary causes On: :33 Request Ferritin (18482)Indication: Iron deficiency anemia due to dietary causes On: 77-Yfv-741852:33 Request Vitamin B-12 (cyanocobalamin) (74826)Indication: Other vitamin B12 deficiency anemia On: 32-Qeb-179836:32 Request CALCIFIDIOL (53362) VIT D 25Indication: Vitamin D deficiency, unspecified On: 84-Nrn-404672:32 Request CULTURE, SPUTUM (69633)Indication: Cough On: 2-Lhb-231825:36 Request Iron (15673)Indication: Iron deficiency anemia due to dietary causes On: 25-Gek-713419:53 Request CALCIFIDIOL (62626) VIT D 25Indication: Vitamin D deficiency, unspecified On: 74-Qvj-089741:02 Request CBC (Auto) (50925)Indication: Iron deficiency anemia due to dietary causes On: 8-Dfh-028766:49 Request Metabolic Panel, Comprehensive (22176)Indication: Chronic pancreatitis On: :49 Request Lipid Panel (56827)Indication: High blood triglycerides On: :49 Request Ferritin (58072)Indication: Iron deficiency anemia due to dietary causes On: 2-Inc-880764:48 Request CALCIFEDIOL (70441)Indication: Vitamin D deficiency, unspecified On: :48 Request Vitamin B-12 (cyanocobalamin) (16084)Indication: Other vitamin B12 deficiency anemia On: 8-Phb-083854:47 Request Lipase (49081)Indication: Chronic pancreatitis On: :47 Request Amylase (67641)Indication: Chronic pancreatitis On: :47 Request D-Dimer (17801)Indication: Anemia On: 16-Ouu-810168:28 Request Comments: stat Metabolic Panel, Comprehensive (19683)Indication: Anemia On: :16 Request TYPE & SCREEN GEL (69272)Indication: Anemia On: :16 Request CBC with manual diff (49525)Indication: Anemia On: :15 Request Lipase (18651)Indication: Chronic pancreatitis On: :30 Request Amylase (24358)Indication: Chronic pancreatitis On: 28-Zgx-904705:30 Request Ferritin (95196)Indication: Iron deficiency anemia due to dietary causes On: 81-Unp-620523:28 Request LIPASE (79827)Indication: Chronic pancreatitis On: :21 Request AMYLASE (61165)Indication: Chronic pancreatitis On: 9-Mqh-927012:21 Request Lipase (98971)Indication: Chronic pancreatitis On: : Request Amylase (34076)Indication: Chronic pancreatitis On: :12 Request MICROALBUMIN: CREATININE RATIO (34630) AND (83255)Indication: Chronic pancreatitis On: : Request METABOLIC PANEL, COMPREHENSIVE (81587)Indication: Chronic pancreatitis On: : Request LIPID PANEL (70524)Indication: High blood triglycerides On: : Request CBC WITH MANUAL DIFF (60352)Indication: Chronic pancreatitis On: : Request Metabolic Panel, Comprehensive (36231)Indication: Chronic pancreatitis On: :46 Request Lipase (62815)Indication: Chronic pancreatitis On: :46 Request Amylase (50099)Indication: Chronic pancreatitis On: :46 Request CALCIFIDIOL (33320) VIT D 25Indication: Vitamin D deficiency, unspecified On: 9-Bzl-897449:43 Request Ferritin (06242)Indication: Iron deficiency anemia due to dietary causes On: :43 Request CBC (Auto) (10447)Indication: Iron deficiency anemia due to dietary causes On: :43 Request PT (Prothrobim Time) (96882)Indication: AFTERCARE, LONG-TERM USE, ANTICOAGULANTS On: :28 Request Lipase (25883)Indication: Chronic pancreatitis On: : Request Amylase (28223)Indication: Chronic pancreatitis On: : Request Metabolic Panel, Comprehensive (72687)Indication: Chronic pancreatitis On: : Request CBC (Auto) (35876)Indication: Leukopenia On: : Request Lipid Panel (08015)Indication: High blood triglycerides On: :25 Request Iron (91742)Indication: Iron deficiency anemia due to dietary causes On: :23 Request Ferritin (36277)Indication: Iron deficiency anemia due to dietary causes On: :23 Request Vitamin B-12 (cyanocobalamin) (21353)Indication: Other vitamin B12 deficiency anemia On: :23 Request CALCIFIDIOL (41549) VIT D 25Indication: Vitamin D deficiency, unspecified On: :23 Request Lipase (20273)Indication: Chronic pancreatitis On: : Request Amylase (93022)Indication: Chronic pancreatitis On: :21 Request Comments: pls add to labs already drawn Metabolic Panel, Comprehensive (33525)Indication: Chronic pancreatitis On: : Request Ferritin (90137)Indication: Iron deficiency anemia due to dietary causes On: : Request CBC (Auto) (46569)Indication: Chronic pancreatitis On: : Request LIPID PANEL (28346)Indication: High blood triglycerides On: 0-Kmc-172416:15 Request Iron Binding Capacity (TIBC) (76342)Indication: Anemia On: :53 Request Iron (12639)Indication: Anemia On: :53 Request Ferritin (61371)Indication: Anemia On: :53 Request CBC (Auto) (50390)Indication: Anemia On: :53 Request Metabolic Panel, Comprehensive (10684)Indication: Chronic pancreatitis On: :53 Request OVA & PARASITE DIR SMEAR (93400)Indication: Diarrhea On: :37 Request LEUKOCYTE COUNT, FECAL (69237)Indication: Diarrhea On: :37 Request C.Difficile, Stool (20828)Indication: Diarrhea On: :37 Request GRETTA CULTURE-STOOL (64090)Indication: Diarrhea On: :37 Request Vitamin B-12 (cyanocobalamin) (28605)Indication: Other vitamin B12 deficiency anemia On: :05 Request Iron (53941)Indication: Anemia On: 66-Xdj-817181:05 Request Ferritin (66900)Indication: Anemia On: :05 Request METABOLIC PANEL, COMPREHENSIVE (79071)Indication: High blood triglycerides On: :05 Request CBC WITH MANUAL DIFF (93174)Indication: Anemia On: :05 Request LIPID PANEL (58963)Indication: High blood triglycerides On: 13-Wcw-500790:04 Request nasal influenza swab (30303) H7Ijbrlakbou: Unspecified Diagnosis On: 2-Xlj-648386:29 Request Rapid Flu (02112 x 2)Indication: Fever On: 0-Mko-233708:44 Request Lipid Panel (90772)Indication: High blood triglycerides On: 31-Fxa-080804:53 Request CBC (Auto) (60107)Indication: Chronic pancreatitis On: :51 Request Metabolic Panel, Comprehensive (01894)Indication: Chronic pancreatitis On: :51 Request Ferritin (84873)Indication: Anemia On: :51 Request Iron (83320)Indication: Anemia On: :51 Request Vitamin B-12 (cyanocobalamin) (71737)Indication: Other vitamin B12 deficiency anemia On: 10-Yld-057637:51 Request Lipid Panel (58312)Indication: Malabsorption syndrome On: :39 Request Sed Rate Erythrocyte (11306)Indication: Chronic pancreatitis On: :35 Request CBC, Platelets & Auto Diff (14160)Indication: Chronic pancreatitis On: :35 Request Magnesium (89198)Indication: Chronic pancreatitis On: :35 Request Lipase (17720)Indication: Chronic pancreatitis On: :35 Request Amylase (76819)Indication: Chronic pancreatitis On: :35 Request Metabolic Panel, Comprehensive (53927)Indication: Chronic pancreatitis On: :35 Request CBC (Auto) (45492)Indication: Abdominal pain, acute, generalized On: :29 Request Metabolic Panel, Comprehensive (40480)Indication: Abdominal pain, acute, generalized On: 94-Roi-574478:29 Request Methylmalonic acid, serum 46164Msaytrysxz: Other vitamin B12 deficiency anemia On: 18-Lci-282060:29 Request CULTURE, SPUTUM (41045)Indication: Cough On: 4-Tlr-760751:42 Request Lipase (36614)Indication: Acute pancreatitis On: 6-Fxk-815387:59 Request Amylase (78020)Indication: Acute pancreatitis On: 2-Cwf-186618:59 Request DESIRAE (ANTINUCLEAR ANTIBODY) (40303)Indication: Pain in unspecified joint On: 5-Fbk-617124:48 Request C-REACTIVE PROTEIN (22117)Indication: Pain in unspecified joint On: 8-Lvp-956752:48 Request CBC WITH MANUAL DIFF (78165)Indication: Pain in unspecified joint On: 1-Vee-268085:48 Request METABOLIC PANEL, COMPREHENSIVE (90498)Indication: Pain in unspecified joint On: 6-Qab-327698:48 Request RHEUMATOID FACTOR-QUANT (20671)Indication: Pain in unspecified joint On: 4-Nue-288661:48 Request SED RATE ERYTHROCYTE (91468)Indication: Pain in unspecified joint On: 8-Obe-194224:48 Request TSH (65463)Indication: Pain in unspecified joint On: 6-Rtz-620345:48 Request GRETTA CULTURE-OTHER (08043)Indication: Pharyngitis, acute On: 16-Skw-745622:12 Request Rapid Strep Test, Office (97092)Indication: Pharyngitis, acute On: 84-Xzi-213332:12 Request Comments: negative VITAMIN D, 1, 25-DIHYDROXY (92431)Indication: Chronic pancreatitis On: 99-Kwm-612552:46 Request Vitamin B-12 (cyanocobalamin) (72633)Indication: Other vitamin B12 deficiency anemia On: 24-Muc-357590:43 Request Lipase (35024)Indication: Chronic pancreatitis On: 25-Cil-232424:35 Request Amylase (21091)Indication: Chronic pancreatitis On: 86-Wct-637431:34 Request CBC (Auto) (31913)Indication: Chronic pancreatitis On: 45-Jmy-209109:34 Request Metabolic Panel, Comprehensive (15295)Indication: Chronic pancreatitis On: 55-Frn-987411:34 Request Lipid Panel (89478)Indication: Chronic pancreatitis On: 54-Stm-654520:34 Request Comments: standing order every 3 months Metabolic Panel, Comprehensive (41569)Indication: Edema On: :13 Request CBC, Platelets & Auto Diff (55536)Indication: Edema On: :13 Request PTT (Activated Partial Thromboplastin Time) (56129)Indication: Edema On: :12 Request PT (Prothrobim Time) (82989)Indication: Edema On: 23-Dxd-025324:12 Request Lipase (82200)Indication: pancreatitis On: :32 Request Amylase (96218)Indication: pancreatitis On: :32 Request CBC (Auto) (42469)Indication: pancreatitis On: :32 Request Metabolic Panel, Comprehensive (92202)Indication: pancreatitis On: :32 Request Metabolic Panel, Comprehensive (00357)Indication: Fever On: 81-Eol-185764:57 Request GRETTA CULTURE-BLOOD (08859)Indication: Fever On: :56 Request Comments: one from peripheral GRETTA CULTURE-BLOOD (99630)Indication: Fever On: 52-Nxb-094996:56 Request Comments: one from port Sed Rate Erythrocyte (80604)Indication: Fever On: 59-Nov-614423:56 Request CBC, Platelets & Auto Diff (35744)Indication: Fever On: :56 Request Urinalysis, Office (52849)Indication: Fever On: 44-Fqc-726660:56 Request GRETTA CULTURE-OTHER (74843)Indication: Fever On: :53 Request Rapid Strep Test, Office (99400)Indication: Fever On: 8-Nhy-856761:52 Request CBC, Platelets & Auto Diff (44337)Indication: Chronic pancreatitis On: 3-Lgt-668423:46 Request Lipase (78234)Indication: Chronic pancreatitis On: :46 Request Amylase (56202)Indication: Chronic pancreatitis On: 8-Tqp-297408:46 Request Metabolic Panel, Comprehensive (87899)Indication: Chronic pancreatitis On: 1-Wmu-948716:46 Request FERRITIN (37554)Indication: Anemia On: 3-Bct-182270:22 Request VITAMIN B-12 (CYANOCOBALAMIN) (98038)Indication: Other vitamin B12 deficiency anemia On: 8-Lom-048164:22 Request LIPASE (72255)Indication: Acute pancreatitis On: 59-Dne-485007:22 Request ALBUMIN SERUM (32619)Indication: Acute pancreatitis On: :22 Request CBC (AUTO) (90253)Indication: Acute pancreatitis On: :21 Request METABOLIC PANEL, BASIC (58797)Indication: Abnormal blood chemistry On: :21 Request Planned Encounters Medical; [facility] 4 Month Fu - On: 01-Sep-2018 13:30 [facility] Sarah Pizano MD, MD, Dana M Planned Procedures Flu Vaccine (Quadrivalent) On: 31-Mar-2018 Intent 20128Xc: COMFORT Gallegos Comments: Lot #:[id number] date: 4-25-93Jembwf given:0.5mlRoute: IMSite given:L DltdGiven by: ElaineVIS and ABN signed [employer] SCREENING DIGITAL TOMOSYNTHESIS On: 20-Dec-2017 Intent OF BREAST (22854)By: Sarah Pizano MD, MD, Dana M DEXA SCAN AXIAL SKELETON On: 20-Dec-2017 Intent (08221)By: Sarah Pizano MD, MD, Dana M SCREENING DIGITAL TOMOSYNTHESIS On: 29-Apr-2017 Intent OF BREAST (07599)By: Sarah Pizano MD, MD, Dana M Flu Vaccine (Quadrivalent) On: 29-Apr-2017 Intent 39058Yr: Sarah Pizano MD Comments: lot: [id number]: 12/19/18site/route: L kelin, IMamt: 0.5mlVIS and ABN signed when applicableChelsea, FURNITURE MAKER Sarah Pizano MD CT - Abdomen & Pelvis (IV On: 01-Oct-2016 Intent Contrast Needed)By: Dima DURAN, Comments: attentinon pancrease follow up on kidney cyst. 07-20 creat 0.76 Sarah Ghosh MD Flu Vaccine (Quadrivalent) On: 17-May-2016 Intent 79292Hh: Sarah Pizano MD Comments: FLUlot: [id number]:11/17site:Lt deltoidroute:IMdose:.5mlDEMICK, MA Sarah Pizano MD Aerosol Treatment (48457)By: On: 27-Apr-2016 Intent Slarb FUEL TRUCK DRIVER, Kacey DEXA SCAN AXIAL SKELETON On: 09-Mar-2016 Intent (81412)By: Sarah Pizano MD, MD, Dana M MAMMOGRAM, SCREENING, BOTH On: 09-Mar-2016 Intent BREAST (41387)By: Sarah Pizano MD, MD, Dana M DEXA SCAN AXIAL SKELETON On: 15-Jul-2015 Intent (83947)By: Sarah Pizano MD, MD, Dana M MAMMOGRAM, SCREENING, BOTH On: 15-Jul-2015 Intent BREAST (75363)By: Sarah Pizano MD, MD, Dana M Aerosol Treatment (60344)By: On: 08-Jul-2015 Intent Pamella Saavedra CNP Aerosol Treatment (11674)By: On: 08-Jul-2015 Intent 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 FUEL TRUCK DRIVER, Kacey XR HIP RIGHT COMPLETE (63948)By: On: 30-Jun-2015 Intent Sarah Pizano MD, MD, Comments: right hip Sarah Rebollar Radiology - PelvisBy: Dima On: 24-Jun-2015 Intent Sarah DURAN MD, Dana M Comments: and right hip xray Venous Doppler - RightBy: On: 24-Jun-2015 Intent Sarah Pizano MD, MD, Comments: leg Sarah Rebollar Flu Vaccine (Quadrivalent) On: 15-Apr-2015 Intent 99989Ra: Sarah Pizano MD Comments: lot [id number]: 01/01/2016site/route L kelin, IMamt 0.5mlVIS and ABN signed when applicableMelba, CMAFM4 Sarah Pizano MD Radiology - ChestBy: Quentin ARGUETA, On: 07-Feb-2015 Intent Adeola Aerosol Treatment (00491)By: On: 07-Feb-2015 Intent Ailyn Aguilar Solu -Medrol Injection, 125 mg On: 05-Feb-2015 Intent (J2930)By: Pamella Saavedra CNP Comments: lot:[id number]:route:IMdose:125MGsite: R glutGiven by: FOX Angeles Solu -Medrol Injection, 125 mg On: 04-Feb-2015 Intent (J2930)By: Pamella Saavedra CNP Aerosol Treatment (51928)By: On: 04-Feb-2015 Intent Pamella Saavedra CNP MAMMOGRAM, SCREENING, BOTH On: 14-Jan-2015 Intent BREAST (34832)By: Sarah Pizano MD, MD, Dana M Prevnar 13 (08702)By: Dima On: 16-Jul-2014 Intent Sarah DURAN MD, Dana M ADMINISTRATION OF INFLUENZA On: 22-Apr-2014 Intent VIRUS VACCINE (G0008)By: Sarah Pizano MD, MD, Dana M FLU VAC, SPLIT, >3 YEARS, On: 22-Apr-2014 Intent INTRAMUSC (98535)By: Dima DURAN, Comments: Lot #:[id number] date:mount given:0.5mlRoute: IMSite given:left deltoid Given by: Sarah Mota MD Phenergan Injection, up to 50 mg On: 12-Dec-2013 Intent (J2550)By: Pamella Saavedra CNP MAMMOGRAM, SCREENING, BOTH On: 25-Sep-2013 Intent BREASTS (34807)By: Sarah Pizano MD, MD, Dana M Eprescribed prescriptions On: 25-Sep-2013 Intent (G8553)By: Sarah Pizano MD, MD, Dana M Aerosol Treatment (67674)By: On: 05-Sep-2013 Intent [address] Sa[address]ra CNP CT - Abdomen & Pelvis (IV On: 04-Jun-2013 Intent Contrast Needed)By: Sarah Pizano MD, MD, Dana M DXA, BONE DENSITY, AXIAL On: 04-Jun-2013 Intent SKELETON (21756)By: Dima DURAN, Comments: postmenapausal Sarah Ghosh MD MAMMOGRAM, SCREENING, BOTH On: 04-Jun-2013 Intent BREASTS (63887)By: Dima DURAN, Sarah Ghosh MD Pulse Oximetry (72604)By: On: 04-Jun-2013 Intent COMFORT Gallegos Eprescribed prescriptions On: 14-May-2013 Intent (G8553)By: Melba Malloy ELECTROCARDIOGRAM, COMPLETE On: 26-Dec-2012 Intent (ECG) (64762)By: Sarah Pizano MD, MD, Dana M Eprescribed prescriptions On: 26-Dec-2012 Intent (G8553)By: Makenzie Allred LPN MAMMOGRAM, SCREENING, BOTH On: 24-Aug-2012 Intent BREASTS (70302)By: Sarah Pizano MD, MD, Dana M Pulse Oximetry (89608)By: On: 29-Jun-2012 Intent COMFORT Gallegos Radiology - Chest- PA and LatBy: On: 01-Jun-2012 Intent Sofia Younger DO Eprescribed prescriptions On: 01-Jun-2012 Intent (G8553)By: Kim Garces LPN FLU VAC, SPLIT, >3 YEARS, On: 28-Apr-2012 Intent INTRAMUSC (99566)By: Balaji, Comments: Lot:[id number]:6.30.13Dose:prefilledRoute:IMSite:L DltdGiven By:BARRY Garcia IMMUNIZ ADMNIN, 1 VAC, On: 28-Apr-2012 Intent SNGL/COMBO (02239)By: Radha Carpio TDAP VACCINE >7 IM (39056)By: On: 24-Nov-2011 Intent Makenzie Allred LPN Comments: Lot #[id number] 11.13Site- L arm, ImDose prefilledgiven by: Makenzie MAMMOGRAM, SCREENING, BOTH On: 01-Nov-2011 Intent BREASTS (84865)By: Sarah Pizano MD, MD, Dana M Aerosol Treatment (64476)By: On: 14-Oct-2011 Intent Sofia Younger DO Comments: done pt tolerated well-- more a/e - less wheeze and irritabiltiy after tx Solu- Medrol Injection, 125mg On: 14-Oct-2011 Intent (J2930)By: Carisa AGUAYO Sofia Comments: 2 ml given im rt hip lot obyr3 exp 07/18 Kenalog Injection, 10 mgm On: 09-Aug-2011 Intent (J3301)By: Sarah Pizano MD, MD, Dana M FLU VAC, SPLIT, >3 YEARS, On: 20-Apr-2011 Intent INTRAMUSC (67541)By: Cayden Comments: Lot #[id number]-1/30/12Site-left deltoidgiven by: Jared Rodarte, SCAR CASTILLON, Chery IMMUNIZ ADMNIN, 1 VAC, On: 20-Apr-2011 Intent SNGL/COMBO (43602)By: Chery Rodarte LPN B 12 Injection, 1000 mcg On: 22-Mar-2011 Intent (J3420)By: COMFORT Gallegos DRAIN/INJECT MAJOR JOINT OR On: 22-Mar-2011 Intent BURSA ()By: COMFORT Gallegos Comments: Lot #:[id number] date: given:2ml Route: intra articular Site given:bilateral knees Given by: Dr. Pizano Pulse Oximetry (50192)By: Quentin On: 19-Mar-2011 Intent CAR MANAGER, Adeola Aerosol Treatment (19776)By: On: 19-Mar-2011 Intent Ciesa CAR MANAGER, Adeola DRAIN/INJECT MAJOR JOINT OR On: 12-Mar-2011 Intent BURSA ()By: COMFORT Gallegos Comments: Lot #:[id number] date: given:2ml Route: intra articular Site given:bilateral knees Given by: Dr. Pizano DRAIN/INJECT MAJOR JOINT OR On: 04-Mar-2011 Intent BURSA ()By: COMFORT Gallegos Comments: Lot #:[id number] date: given:2mlRoute: intra articular Site given:Bilateral knees Given by: Dr. Pizano injection #1 Kenalog Injection, 10 mgm On: 08-Feb-2011 Intent (J3301)By: Sarah Pizano MD Comments: x 8 Sarah Pizano MD Breast Ultrasound - LeftBy: On: 08-Feb-2011 Intent Sarah Pizano MD, MD, Sarah Rebollar DXA, BONE DENSITY, AXIAL On: 02-Nov-2010 Intent SKELETON (05903)By: Sarah Pizano MD, MD, Dana M MAMMOGRAM, SCREENING, BOTH On: 02-Nov-2010 Intent BREASTS (61119)By: Sarah Pizano MD, MD, Dana M FLU VAC, SPLIT, >3 YEARS, On: 17-Jun-2010 Intent INTRAMUSC (28744)By: Cayden Comments: Lot #[id number]-4/11Site-right deltoidgiven by:Chery PAVON LPN IMMUNIZ ADMNIN, 1 VAC, On: 17-Jun-2010 Intent SNGL/COMBO (32397)By: Chery Rodarte LPN DXA, BONE DENSITY, AXIAL On: 30-Sep-2009 Intent SKELETON (38151)By: Sarah Pizano MD, MD, Dana M MAMMOGRAM, SCREENING, BOTH On: 30-Sep-2009 Intent BREASTS (17940)By: Sarah Pizano MD, MD, Dana M B 12 Injection, 1000 mcg On: 30-Sep-2009 Intent (J3420)By: COMFORT Gallegos Pulse Oximetry (64958)By: Quentin On: 09-Apr-2009 Intent CAR MANAGER, Adeola Aerosol Treatment ([id number])By: On: 09-Apr-2009 Intent Ciesa CAR MANAGER, Adeola FLU VAC, SPLIT, >3 YEARS, On: 26-Mar-2009 Intent INTRAMUSC ([id number])By: Lisa HERRON, Andie IMMUNIZ ADMNIN, 1 VAC, On: 26-Mar-2009 Intent SNGL/COMBO ([id number])By: Lisa HERRON, Comments: Lot #: [id number] date: mount given: 0.5 mlRoute: IMSite given: left deltoidGiven by: SCAR Montenegro INJECTION, VITAMIN B-12 On: 07-Feb-2009 Intent CYANOCOBALAMIN, UP TO 1000 MCG Comments: Lot #[id number] date: given:1mlSite given: right deltoidGiven by:Judith. (Special Coverage Instructions Apply. See [facility]: 45-4 and [facility]: 2048) ([id number])By: COMFORT Gallegos Pulse Oximetry ([id number])By: Ceci On: 04-Dec-2008 Intent DO, Rosa Maria A Comments: post rhfineqil70% Aerosol Treatment ([id number])By: On: 04-Dec-2008 Intent Fast DORosa Maria A Comments: done-aw B 12 Injection, 1000 mcg On: 04-Dec-2008 Intent (J3420)By: Tonia Garcia Comments: Lot #[id number]/2010Site-right ujhvbiaBbxy9231fzg/1mlgiven by Debbie Lei LPN Pulse Oximetry ([id number])By: On: 04-Dec-2008 Intent Tonia Garcia Comments: 91% Radiology - Knee - RightBy: On: 05-Nov-2008 Intent Dima DURAN, Sarah Pizano MD, Sarah Rebollar Radiology - Knee - LeftBy: On: 05-Nov-2008 Intent Dima DURAN, Sarah Pizano MD, Sarah Rebollar B 12 Injection, 1000 mcg On: 05-Nov-2008 Intent ([id number])By: COMFORT Gallegos Comments: Lot #:[id number] date: given:1 ml Route: IM Site given:rt. deltoid Given by: erussell B 12 Injection, 1000 mcg On: 09-Oct-2008 Intent ([id number])By: COMFORT Gallegos Comments: Lot #[id number]-right lociylrMsnf1195dzm/1mlgiven by Debbie Lei LPN DRAIN/INJECT MAJOR JOINT OR On: 09-Oct-2008 Intent BURSA ()By: COMFORT Gallegos Comments: Lot #:[id number] date:mount given:Route: intra articular Site given:bilateral knees Given by: Dr. Pizano DRAIN/INJECT MAJOR JOINT OR On: 01-Oct-2008 Intent BURSA ()By: COMFORT Gallegos Comments: Lot #:[id number] date:mount given:2.5ml Route:intra-articular Site given:Bilateral knees Given by: Dr. Pizano DRAIN/INJECT MAJOR JOINT OR On: 24-Sep-2008 Intent BURSA ()By: COMFORT Gallegos Comments: Lot #:[id number] date: Amount given:2.5 mlRoute: intra-articular Site given:bilateral knees Given by: Dr. Pizano DRAIN/INJECT MAJOR JOINT OR On: 17-Sep-2008 Intent BURSA ()By: COMFORT Gallegos Comments: Lot #:[id number] date:mount given:2 grams Route: Intra articular Site given: bilateral knees Given by: Dr. Pizano DRAIN/INJECT MAJOR JOINT OR On: 13-Sep-2008 Intent BURSA ()By: COMFORT Gallegos Comments: Lot #:[id number] date:05-10 Amount given:2.5MLRoute: INTRA ARTICULAR Site given:bilateral knees Given by: Dr. Dima Sarkar 12 Injection, 1000 mcg On: 10-Sep-2008 Intent (J3420)By: COMFORT Gallegos B 12 Injection, 1000 mcg On: 29-Jul-2008 Intent (J3420)By: Denise Collazo Comments: Amt: 1mlLot: [id number]: 02/10Route: IMSite: right deltTolerated: wellGiven By: SCAR Sood Pulse Oximetry ([id number])By: Quentin On: 29-Jul-2008 Intent KENDALL Adeola Aerosol Treatment ([id number])By: On: 29-Jul-2008 Intent Ciesa KENDALL Adeola Aerosol Treatment ([id number])By: On: 16-Jul-2008 Intent Sofia Younger DO Comments: done-awnoise resolved and much more air exchange Pulse Oximetry (05331)By: Carisa On: 16-Jul-2008 Sofia Davis DO Comments: 93% Solu- Medrol Injection, 125mg On: 16-Jul-2008 Intent (J2930)By: Sofia Younger DO Comments: Lot #[id number]-12/12Site-right twpFwln9bv/125mggiven by Debbie Lei LPN B 12 Injection, 1000 mcg On: 30-Apr-2008 Intent (J3420)By: Prema Lei Comments: Lot #[id number]-11/10Site-right qqhmhoxSnwh7pulgkke by Debbie Lei LPN DXA, BONE DENSITY, AXIAL On: 30-Apr-2008 Intent SKELETON ([id number])By: Dima DURAN, Comments: estrogen def Sarah Pizano MD, Sarah Rebollar MAMMOGRAM, SCREENING, BOTH On: 30-Apr-2008 Intent BREASTS ([id number])By: Dima DURAN, Sarah Pizano MD, Sarah Rebollar B 12 Injection, 1000 mcg On: 27-Mar-2008 Intent (J3420)By: Tonia Garcia Comments: Lot #:[id number] date:mount given:.1mlRoute: IMSite given:left deltoidGiven by: EDEN Salcido Pulse Oximetry (30050)By: On: 27-Mar-2008 Intent Tonia Garcia Comments: 96% Pulse Oximetry ([id number])By: On: 14-Mar-2008 Intent COMFORT Gallegos B 12 Injection, 1000 mcg On: 06-Feb-2008 Intent (J3420)By: Pamella Saavedra CNP Comments: Lot #:[id number] date: Amount given:1ml Route: IMSite given:left deltoid Given by: billy Solu -Medrol Injection, 125 mg On: 06-Feb-2008 Intent (J2930)By: Pamella Saavedra CNP Comments: Lot #:[id number] date:mount given:125mgRoute: IMSite given:left gluteal Given by: aretha Pulse Oximetry ([id number])By: Quentin On: 06-Feb-2008 Intent Pamella ARGUETA Aerosol Treatment ([id number])By: On: 06-Feb-2008 Intent Pamella Saavedra CNP B 12 Injection, 1000 mcg On: 21-Dec-2007 Intent (J3420)By: Ledy Nogueira Comments: given in right deltoid, lot#[id number], exp.3.10 >Wf. B 12 Injection, 1000 mcg On: 03-Oct-2007 Intent (J3420)By: Ciesa CAR MANAGER, Adeola Pulse Oximetry ([id number])By: Quentin On: 03-Oct-2007 Intent Pamella ARGUETA Aerosol Treatment ([id number])By: On: 03-Oct-2007 Intent Bryanjunie Pamella ARGUETA Pulse Oximetry (05974)By: Lenny, On: 16-Aug-2007 Intent Cira Aerosol Treatment ([id number])By: On: 16-Aug-2007 Intent Sofia Younger DO Comments: no wheeze and better air exchange Solu- Medrol Injection, 125mg On: 16-Aug-2007 Intent (J2930)By: Sofia Younger DO Comments: given in left buttocks.lot # [id number]\Exp 02/2010 SPECIMEN HNDLNG/TRNSPRT, OFFC > On: 16-Aug-2007 Intent LAB ([id number])By: Sofia Younger DO B 12 Injection, 1000 mcg On: 01-Aug-2007 Intent (J3420)By: Prema Lei Comments: Lot #[id number]-05/12Site-left shnuwdwWmut8zrcivcr by Debbie Lei [facility] - ChestBy: Sarah Pizano MD On: 01-Aug-2007 Intent Sarah Pizano MD FLU VAC, SPLIT, >3 YEARS, On: 18-Apr-2007 Intent INTRAMUSC ([id number])By: Sarah Pizano MD, MD, Dana M IMMUNIZ ADMNIN, 1 VAC, On: 18-Apr-2007 Intent SNGL/COMBO (07838)By: Sarah Pizano MD, MD, Dana M B [...] DURAN, On: 21-Nov-2006 Intent Sarah Ghosh MD B 12 Injection, 1000 mcg On: 26-Oct-2006 Intent (J3420)By: Lias RN, Andie SPECIMEN HNDLNG/TRNSPRT, OFFC > On: 10-Oct-2006 Intent LAB ([id number])By: Sarah Pizano MD, MD, Dana M Solu -Medrol Injection, 125 mg On: 16-Sep-2006 Intent (J2930)By: Sarah Pizano MD Comments: lot # [id number] exp 04-11 given rt. gluteal by Sarah Chacon lpn, MD Pulse Oximetry ([id number])By: On: 16-Sep-2006 Intent Sarah Pizano MD, MD, Dana M Aerosol Treatment ([id number])By: On: 16-Sep-2006 Intent Sarah Pizano MD, MD, Dana M Pulse Oximetry (07961)By: On: 04-Aug-2006 Intent Sarah Pizano MD, MD, Dana M EKG (97070)By: Sarah Pizano MD On: 08-Jul-2006 Intent Sarah Morfin MD IMMUNIZ ADMNIN, 1 VAC, On: 06-May-2006 Intent SNGL/COMBO (86202)By: Ramiro ABBOTT, Peg FLU VAC, SPLIT, >3 YEARS, On: 06-May-2006 Intent INTRAMUSC (90448)By: Ramiro ABBOTT, Comments: Lot #:Expiration date:Amount given:Route: imSite given:r armGiven by: galina golden lpn Peg Echo CompleteBy: Dima DURAN, On: 19-Apr-2006 Intent Sarah [address] MD CT - Abdomen & PelvisBy: Dima On: 19-Apr-2006 Intent Sarah DURAN MD, Dana M Comments: ?obstruction, pancreatitis, attention kidney cyst send to [facility] gastrologist [facility] Planned Medications INJECTION, METHYLPREDNISOLONE SODIUM SUCCINATE, UP TO 125 MG Ordered: 14-Oct-2011 Pending Sofia Younger DO INJECTION, METHYLPREDNISOLONE SODIUM SUCCINATE, UP TO 125 MG Ordered: 04-Feb-2015 Pending Quentin ARGUETA Adeola INJECTION, METHYLPREDNISOLONE SODIUM SUCCINATE, UP TO 125 MG Ordered: 05-Feb-2015 Pending Quentin ARGUETA Adeola INJECTION, TRIAMCINOLONE ACETONIDE, NOT OTHERWISE SPECIFIED, 10 MG Ordered: 08-Feb-2011 Pending Dima DURAN, Sarah Pizano MD, Sarah Rebollar INJECTION, TRIAMCINOLONE ACETONIDE, NOT OTHERWISE SPECIFIED, 10 MG Ordered: 09-Aug-2011 Pending Dima DURAN, Sarah Pizano MD, Sarah Rebollar Phenergan 50 MG/ML Injection Solution Ordered: 12-Dec-2013 Pending Pamella Saavedra CNP Vitamin B-12 1000 MCG/ML Injection Solution Ordered: 22-Mar-2011 Pending COMFORT Gallegos Instructions Name Dates Details Well woman exam (Renamed from Encounter for [...] Advance Directives Name Dates Details Immunization Registry [place] - Effective on Effective: 29-Apr-201704/29/2017. Expiration date unspecified. Patient chose Declined. Encounters Office Visit On: 01-May-2018 13:29 Encounter Reason: Physical female exam - Last seen between 6-12 months ago. General health: feels well with minor complaints and has decreased energy level. The patient's appetite is normal. Nutrition: normal/adequate. E End: 02-May-2018 15:11 xercises 3 days per week. Sleeps on average 9 hours per night. Elimination problems include diarrhea (notice at night velma.). Safety measures include appropriate use of safety belts and home smoke detect ors. Current emotional problems include anxiety and depression. screening, mammography (), screening, Pap smear (total hysterectomy) and screening, visual acuity ( q 2 years).Encounter Diagnosis: BMI 35.0-35.9,adult, Current nonsmoker (Renamed from Current non-smoker), Well woman exam (Renamed from Encounter for well woman exam), Urgency incontinence, Deterioration of spinal disc of lower back, High blood triglycerides, Fibrocystic breast disease, Personal history of venous thrombosis and embolism, Chronic pain, Obesity, unspecified, Migraine (346.80), GERD (gastroesophageal reflux disease), Sleep disorder, Osteoarthritis, Fibromyalgia (729.1), Respiratory bronchiolitis associated interstitial lung disease, Postmenopausal (Renamed from Post-menopausal), Asthma, Iron deficiency anemia due to dietary causes, Vitamin D deficiency, unspecified, Polyarthropathy, inflammatory, Chronic pancreatitis (577.1), PFO (patent foramen ovale), Port-a-cath in place, Other vitamin B12 deficiency anemia (281.1), Allergic rhinitis, Cervical radiculopathy (723.4), Hot flashes (Renamed from Menopausal flushing), Dysthymic, OTHER AND UNSPECIFIED POSTSURGICAL NONABSORPTION, S/P gastric bypass, BMI 34.0-34.9,adult, Hyperlipidemia, Tremor, Perioral dermatitis [facility] Office Visit On: 31-Mar-2018 14:07 Encounter Diagnosis: [...] and supplemental vitamins. The medical issues the shamika farley is following up for include other (burn [...] symptom onset. The pa End: 31-Oct-2015 11:37 tient describes this as worsening. Associated symptoms include [...] (579.8), Hyponatremia (276.1), Asthma (493.11), Fibromyalgia (729.1), [facility] V73.21 [place] (Renamed from [facility]), Obesity,unspecified (278.00), GERD (530.81), DEFICIENCY, VITAMIN D [...] ANEMIA DUE TO DIETARY IRON DEFICIENCY (280.1), [facility] V73.21 [place] (Renamed from [facility]) [facility] Office Visit On: [...] Encounter Reason: Follow up tests - Date: (Aug 2011)., [ADDITIONAL REASON] Follow up acute care [...] pain syndrome (338.4), Fibrocystic Breast Disease (610.2), [facility] V73.21 [place] [...] (610.2), [facility] V73.21 [facility] (Renamed from [facility]), Knee pain (719.46) End: 08-Feb-2011 11:41 Comprehensive [...] (477.8), Other vitamin B12 deficiency anemia (281.1), [facility] Phone Encounter On: 23-Jan-2010 [...] for this Dr Jacob rabago at [facility]-- -- feels similiar to what she [...] months. Note for Fever: pt had epidural [id number] Diagnosis: Dehydration(276.51), Abdominal Pain,Generalized (789.07), FEVER (780.6) [...] care visit: swelling better with aldactone, reviewed job service consultant's letter use compression, work up from [...] weekend , bite by flies, camp in [facility], no fever abd pain still hit abd [...] Epigastric pain (789.06), SVC thrombosis, Fibromyalgia (729.1), [facility] Office Visit On: 21-Nov-2006 [...] or weight loss. Note for Fever: a nell in chest some asthma cough no congestion, [...] (07-09) and screening, Pap smear (2003 hysterectomy 1992 complete with bladder suspension ). Note for Physical female exam: preop--surgery 1 -16 knee goyo--synvisc, injection not help Encounter Diagnosis: [...] were Note for Follow up hospital: see dominic cole tomorrow, stable still pain, do cerv. injectionEncounter Diagnosis: Cyst of kidney, acquired (593.2), Chronic pancreatitis (577.1), Acute pancreatitis (577.0), Cervical radiculopathy (723.4), Obesity,unspecified (278.00), Abnormal blood chemistry (790.6) [facility]ayers [facility]; junie guarantor
--- OUTSIDE RECORDS SUMMARY | 2018-08-02 06:09 | XMS RPT_ITS | Continuity of Care Document ---
:1955 Author Organization [facility] Address [address] [place] [address] Phone Care Team Providers Name Role Phone [...] cervical.doing every 6 months. ariel leaving to [place]. reconmmend Dr. romero and i talk to [...] really expensive can use an equivalent Creon 45971 UNIT Oral Capsule Delayed Release Particles 2 [...] MD, Dana M Start : 30-Nov-2016 Active [place] 5-325 MG Oral Tablet 1 (one) Tablet [...] Start : 14-Apr-2018 Active Vitamin D (Ergocalciferol) 97895 UNIT Oral Capsule 1 (one) capsule twice [...] MD, Dana M Start : 06-Feb-2018 Active Comments:-7-16 called to [facility] ADVAIR DISKUS, 100-50MCG/DOSE [...] End : 24-Aug-2012 Inactive CALCIUM 500/VITAMIN D, 909-100DG-IIVH (Oral Tablet) 1 (one) Tablet daily for [...] : 09-Mar-2016 End : 04-Jun-2016 Inactive Drisdol 27198 UNIT Oral Capsule 1 Capsule two times [...] days Quantity: 7 {Tablet} Refills: 0 Ordered:06-Feb-2008 Prmea Lei Start : 06-Feb-2008 End : 15-Feb-2008 [...] : 21-Dec-2007 End : 14-Mar-2008 Inactive Nystatin 634032 UNIT/GM External Powder 1 Powder bid for [...] cervical.doing every 6 months. george leaving to [place]. reconmmend Dr. romero and i talk to [...] Procedures Procedure Dates Details [place] (01[address]) Date: 01-Oct-2016 Cancelled Cholecystectomy Completed GASTRIC BYPASS, OPEN (63824) Completed Comments: 1997, Dr. lindsay did for recurrent pancreatitis, this is what helped her. Hysterectomy; Abdominal Completed JEJUNOSTOMY (00038) Completed Comments: 1995 closed 1997 when had gastric bypass, because of pancreatitis and was tube feed for 2 years Date Value Details 21-Mar-2018 Dexa Bone Density Study Result: Comments: See Note; NOTES: [facility] Imaging Services [address] [place] [address] Dexa Bone Density Study MR#: [id number] Acct: [id number] Name: JOSE J COBIAN Rep #: [id number] : 1955 F 63 From: Bartolome Patel MD PCP: Sarah Pizano MD Status: REG CLI Study: Dexa Bone Density Study Date of Exam: 03/21/18 Exam# [id number] Ordering Dr: Sarah Pizano MD STUDY: D [...] Bartolome Patel MD at 15:07 EDT Tel [phone], Service support , CC: Sarah Pizano MD [employer] Tool Driller: Signed 21-Mar-2018 SCREENING MAMM (CAD), BILAT Result: Comments: See Note; NOTES: [facility] Imaging Services [address] [place] [address] SCREENING MAMM (CAD), BILAT MR#: [id number] Acct: [id number] Name: JOSE J COBIAN Rep #: [id number] : 1955 F 63 From: Bartolome Patel MD PCP: Sarah Pizano MD Status: [facility] Study: SCREENING MAMM (CAD), BILAT Date of Exam: 03/21/18 Exam# [id number] Ordering Dr: Sarah Pizano MD MAMMOGRAPHY - [...] biopsy of a clinically suspicious abno rmality. [id number] Electronically Signed: Bartolome Patel MD at 13:21 EDT Tel [phone], Service support , CC: Sarah Pizano MD [employer] Well [employer] Tool Driller: Signed 07-Nov-2017 Operative Report Result: Comments: See Note; NOTES: [facility] Medical Records Department [address] [place] [address] Operative Report 11/07/17 1027 MR#: [id number] Acct: [id number] Name: JOSE J COBIAN Rep #: [id number] : 1955 62 From: Bubba Romero MD PCP: Sarah Pizano MD Status: REG SDC Y Location: [place] [address] Problem List (1) Disc disease, degenerative, lumbar [...] 4 Views Result: Comments: See Note; NOTES: [facility] Imaging Services [address] [place] [address] L/S Spine Min 4 Views MR#: [id number] Acct: [id number] Name: JOSE J COBIAN Rep #: [id number] : 1955 F 62 From: Bartolome Patel MD PCP: Sarah Pizano MD Status: [facility] Study: L/S Spine Min 4 Views Date of Exam: 11/07/17 Exam# [id number] Ordering Dr: Bubba Romero MD PROCEDURE : [...] Bartolome Patel MD at 11:01 EDT Tel [phone], Service support , CC: Sarah Pizano MD; Bubba Romero [employer] Tool Driller: Signed 04-Oct-2017 Cardiology Visit Report Result: Comments: See Note; NOTES: [facility] [address] [place] [address] OFFICE VISIT Date of Service: 10/03/17 MR#: [id number] Acct: [id number] Name: JOSE J COBIAN Rep #: [id number] : 1955 Provider: Chanel Shaw Age/Sex: 62/F Location: [facility] Status: Signed HPI HPI Details: JOSE [...] Intake Visit Reasons: NOT SEEN SINCE 05/2016 [employer] L[employer] Required: No Accompanied by: Is patient in [...] mg PO DAILY@0800 10/20/15 [History Confirmed 10/03/17] [place] codone Bitart/Apap 5-325 [[place] 5/325] 1 tab PO Q4H PRN PRN [...] infarction beginning age 61's, has had several DC's CAD (co ronary artery disease) history of [...] Operative Report Result: Comments: See Note; NOTES: [facility] Medical Records Department [address] [place] [address] Operative Report 09/05/17 0944 MR#: [id number] Acct: [id number] Name: JOSE J COBIAN Rep #: [id number] : 1955 62 From: Bubba Romero MD PCP: Sarah Pizano MD Status: REG [facility] Y Location: [place] [address] Problem List (1) Lumbosacral spondylosis Status: Chronic [...] 4 Views Result: Comments: See Note; NOTES: [facility] Imaging Services [address] [place] [address] L/S Spine Min 4 Views MR#: [id number] Acct: [id number] Name: JOSE J COBIAN Rep #: [id number] : 1955 F 62 From: Bartolome Patel MD PCP: Sarah Pizano MD Status: [facility] Study: L/S Spine Min 4 Views Date of Exam: 09/05/17 Exam# [id number] Ordering Dr: Bubba Romero MD PROCEDURE : [...] Bartolome Patel MD at 9:02 EST Tel [phone], Service support , CC: Sarah Pizano MD; Bubba Romero [employer] Tool Driller: Signed 08-Aug-2017 Operative Report Result: Comments: See Note; NOTES: [facility] Medical Records Department [address] [place] [address] Operative Report 08/08/17 1408 MR#: [id number] Acct: [id number] Name: JOSE J COBIAN Rep #: [id number] : 1955 62 From: Bubba Romero MD PCP: Sarah Pizano MD Status: [facility] Y Location[place] [facility] Problem List (1) Lumbosacral radiculopathy Status: Chronic [...] 3 Views Result: Comments: See Note; NOTES: [facility] Imaging Services [address] [place] [address] Lumbar Spine 2 or 3 Views MR#: [id number] Acct: [id number] Name: JOSE J COBIAN Rep #: [id number] : 1955 F 62 From: Bartolome Patel MD PCP: Sarah Pizano MD Status: [facility] Study: Lumbar Spine 2 or 3 Views Date of Exam: 08/08/17 Exam# [id number] Ordering Dr: Bubba Romero MD P ROCEDURE: [...] Bartolome Patel MD at 11:32 EST Tel [phone], Service support , CC: Sarah Pizano MD; Bubba Romero [employer] Well Cable Tool Driller: Signed 09-May-2017 Operative Report Result: Comments: See Note; NOTES: [facility] Medical Records Department [address] [place] [address] Operative Report 05/09/17 1348 MR#: [id number] Acct: [id number] Name: VIRAJ COBIANA Denise Rep #: [id number] : 1955 62 From: Bubba Romero MD PCP: Sarah Pizano MD Status: REG SDC Y Location: [place] [address] Report of Operation Date of Procedure: 05/09/17 [...] Spine Inj Result: Comments: See Note; NOTES: [facility] Imaging Services [address] [place] [address] Fluor Guidance for Spine Inj MR#: [id number] Acct: [id number] Name: JOSE J COBIAN Rep #: [id number] : 1955 F 62 From: Bartolome Patel MD PCP: Sarah Pizano MD Status: [facility] Study: Fluor Guidance for Spine Inj Date of Exam: 05/09/17 Exam# [id number] Ordering Dr: Bubba Romero MD PROCEDURE: Caudal [...] Bartolome Patel MD at 14:03 EST Tel [phone], Service support , CC: Sarah leigh MD; Bubba Romero [employer] Well Cable Tool Driller: Signed 29-Apr-2017 L/S Spine Min 4 Views Result: Comments: See Note; NOTES: [facility] Imaging Services [address] [place] [address] L/S Spine Min 4 Views MR#: [id number] Acct: [id number] Name: JOSE J COBIAN Rep #: [id number] : 1955 F 62 From: Feliberto Sim MD PCP: Sarah Pizano MD Status: REG CLI Study: L/S Spine Min 4 Views Date of Exam: 04/29/17 Exam# [id number] Ordering Dr: Lizeth Sanches STUDY: X-RAY - [...] , CC: Lizeth Sanches; Sarah Pizano MD [employer] Cable Tool Driller: Signed 21-Mar-2017 Operative Report Result: Comments: See Note; NOTES: [facility] Medical Records Department [address] [place] [address] Operative Report 03/21/17 0841 MR#: [id number] Acct: [id number] Name: JOSE J COBIAN Rep #: [id number] : 1955 62 From: Bubba Romero MD PCP: Sarah Pizano MD Status: DEP [facility] [place] Location: [facility] Problem List (1) Cervical spine degeneration Status: [...] 5 Views Result: Comments: See Note; NOTES: [facility] Imaging Services [address] [place] [address] Cerv Spine 4 or 5 Views MR#: [id number] Acct: [id number] Name: JOSE J COBIAN Rep #: [id number] : 1955 F 62 From: Daniel Manzano DO PCP: Sarah Pizano MD Status: [facility] Study: Cerv Spine 4 or 5 Views Date of Exam: 03/21/17 Exam# [id number] Ordering Dr: Bubba Romero MD STUDY: X-RAY - CERVICAL SPINE REASON FOR EXAM: Female, 62 years old. Cervical block TECHNIQUE: 4 view(s) of the cervical spine were obtained. COMPARISON: None FINDINGS: Face t block was performed with 4 spot fluoroscopy images obtained. Total fluoroscopy time 14.7 seconds. Please see performing physician's report for further details ORD ER #: [id number] RAD/Cerv Spine 4 or 5 Views IMPRESSION: As above Electronically Signed: Daniel Manzano DO at 16:12 EDT Tel , Service support , CC: Sarah Pizano MD; Bubba Romero [employer] Well Cable Tool Driller: Signed 17-Jan-2017 Operative Report Result: Comments: See Note; NOTES: [facility] Medical Records Department [address] [place] [address] Operative Report 01/17/17 1246 MR#: [id number] Acct: [id number] Name: JOSE J COBIAN Rep #: [id number] : 1955 61 From: Bubba Romero MD PCP: Sarah Pizano MD Status: DEP [facility] [place] Location: [facility] Problem List (1) Cervical spine degeneration Status: [...] 5 Views Result: Comments: See Note; NOTES: [facility] Imaging Services [address] [place] [address] Verdana 4d Cerv Spine 4 or 5 Views MR#: [id number] Acct: [id number] Name: JOSE J COBIAN #: [id number] : 1955 F 61 From: Tonia Galvan MD PCP: Sarah Pizano MD Status: [facility] Study: Cerv Spine 4 or 5 Views Date of Exam: 01/17/17 Exam# [id number] Ordering Dr: Bubba Romero MD STUDY: X-RAY [...] Tonia Galvan MD at 16:36 EDT Tel [phone], Service support , CC: Sarah Pizano MD; Bubba Romero Oil Well Cable Tool Driller: Signed 09-Oct-2016 Abdomen/Pelvis WITH Contrast Result: Comments: See Note; NOTES: [facility] Imaging Services [address] [place] [address] Shiradana 4d Abdomen/Pelvis WITH Contrast MR#: [id number] Acct: [id number] Name: VIRAJ COBIAN Rep #: [id number] : 1955 F 61 From: Enrike Peres PCP: Sarah Pizano MD Status: REG CLI Study: Abdomen/Pelvis WITH Contrast Date of Exam: 10/09/16 Exam# [id number] Ordering Dr: Sarah Pziano MD STUDY: CT ABDOMEN AND PELVIS WITH [...] at 9:47 EDT Tel , Service support [phone], CC: Sarah Pizano MD Oil Well Cable Tool Driller: Signed 23-Aug-2016 Operative Report Result: Comments: See Note; NOTES: [facility] Medical Records Department [address] [place] [address] Operative Report MR#: [id number] Acct: [id number] Name: JOSE J COBIAN Rep #: [id number] : 1955 61 From: Bubba Romero MD PCP: Sarah Pizano MD Status: [facility] DATE OF SERVICE: 08/09/2016 DATE OF PROCEDURE: [...] indicated. Bubba Romero MD T: NTS JOB: [id number] 08/23/16 1357 <Electronica lly signed by Bubba Romero MD> Date Bubba Romero MD [facility] Signature (If Indicated): Date ____ CC: Sarah Pizano MD; Bubba Romero Date Dictated: 08/09/16 1311 Date Transcribed: 08/09/161310 [employer] Cable Tool Driller: Signed 09-Aug-2016 Thoracic Spine 3 Views Result: Comments: See Note; NOTES: [facility] Imaging Services [address] [place] [address] Verdana 4d Thoracic Spine 3 Views MR#: [id number] Acct: [id number] Name: JOSE J COBIAN p #: [id number] : 1955 F 61 From: Azalia Fernandes MD PCP: Sarah Pizano MD Status: [facility] Study: Thoracic Spine 3 Views Date of Exam: 08/09/16 Exam# [id number] Ordering Dr: Bubba Romero MD JERO DY: [...] at 1 2:18 EST , Service support [phone], CC: Sarah Pizano MD; Bubba Romero Oil Well Cable Tool Driller: Signed 01-Jun-2016 PT D/C of Non Returning Pt (1) Result: Comments: See Note; NOTES: [facility] Physical Therapy [facility] [address] [place], [place] [address] Fax REHABILITATION SERVICES DISCHAR GE SUMMARY MR#: [id number] Acct: [id number] Name: JOSE J COBIAN Rep #: [id number] Operative Report Result: Comments: See Note; NOTES: [facility] Medical Records Department [address] [place] [address] Operative Report MR#: [id number] Acct: [id number] Name: JOSE J COBIAN Rep #: [id number] : 1955 61 From: Bubba Romero MD PCP: Sarah Pizano MD Status: [facility] DATE OF SERVICE: 03/22/2016 DATE OF SERVICE: [...] indicated. Bubba Romero MD T: NTS JOB: [id number] 04/05/16 1351 <E lectronically signed by Bubba Romero MD> Date Bubba Romero MD Cosigner Signature (If Indicated): Date CC: Sarah Pizano MD; Bubba Romero Date Dictated: 03/22/161415 Date Transcribed: 03/22/161415 Oil Well Cable Tool Driller: Signed 01-Apr-2016 Echocardiogram Complete Result: Comments: See Note; NOTES: [facility] Cardiovascular Services [address] [place] [address] Echo Complete 04/01/16 1256 MR#: [id number] Acct: [id number] Name: JOSE J COBIAN Rep #: [id number] : 1955 61 From: Antonino Lucas MD Attending Dr: Antonino Lucas MD Status: REG CLI Ordering Dr: Antonino Lucas MD Date: 04/01/16 Location: [facility] Sex: F C Admitted: Reason For Study: [...] Dictated: 04/01/16 1256 Date Transcribed: 04/01/16 1515 Oil Well Cable Tool Driller: Signed 22-Mar-2016 Breast Limited Unilateral Result: Comments: See Note; NOTES: [facility] Imaging Services [address] [place] [address] Verdana 4d Breast Limited Unilateral MR#: [id number] Acct: [id number] Name: JOSE J COBIAN Rep #: [id number] : 1955 F 61 From: Bartolome Patel MD PCP: Sarah Pizano MD Status: REG CLI Study: Breast Limited Unilateral Date of Exam: 03/22/16 Exam# [id number] Ordering Dr: Zack Pizano MD STUDY: ULTRASOUND [...] Bartolome Patel MD at 12:35 EDT Tel [phone], Service support [phone], CC: Sarah Pizano MD Oil Well Cable Tool Driller: Signed 19-Mar-2016 Thoracic Spine 3 Views Result: Comments: See Note; NOTES: [facility] Imaging Services [address] [place] [address] Verdana 4d Thoracic Spine 3 Views MR#: [id number] Acct: [id number] Name: MANGOVRIAJA Denise Prather #: [id number] : 1955 F 61 From: Bartolome Patel MD PCP: Sarah Pizano MD Status: REG [facility] Study: Thoracic Spine 3 Views Date of Exam: 03/22/16 Exam# [id number] Ordering Dr: Bubba Romreo MD STUDY: X-RAY - THORACIC SPINE REASON FOR EXAM: Female, 61 years old. Facet joint block. TECHNIQUE: 4 cone-down view(s) of the thoracic spine were obtained intraoperatively.. COMPARISON: None. _ FINDINGS: The patient is status post left T4-2-3 7 facet injection. 0031 RAD/Thoracic Spine 3 Views IMPRESSION: F luoroscopic imaging provided for facet injection. Electronically Signed: Bartolome Patel MD at 14:10 EDT Tel [phone], Service support [phone], CC: Sarah vasquez MD; Bubba Romero Oil Well Cable Tool Driller: Signed 19-Mar-2016 Inital Evaluation (1) - PT Result: Comments: See Note; NOTES: [facility] Physical Therapy [facility] [address] [place] [address] Fax REHABILITATION SERVICES HERI Springer EVALUATION MR#: [id number] Acct: [id number] Name: JOSE J COBIAN Rep #: [id number] : 1955 61 From: Mac Smith Referring Dr.: Bubba Romero Status: REG RCR Insurance: [employer] ARE MEDICARE Patient's Visit Information JOSE J [...] to be FAXED BACK to us at [phone] for Medicare purposes. Please let me know [...] AND CAD Result: Comments: See Note; NOTES: [facility] Imaging Services [address] [place] [address] Verdana 4d Bilat Scrn Digital AND CAD MR#: [id number] Acct: [id number] Name: JOSE J COBIAN Rep #: [id number] : 1955 F 61 From: Bartolome Patel MD PCP: Sarah Pizano MD Status: REG CLI Study: Bilat Scrn Digital AND CAD Date of Exam: 03/16/16 Exam# [id number] Ordering Dr: Sarah Pizano MD MAMMOGRAPHY - [...] delay biopsy of a clinically suspicious abnormality. [id number] Electronically Signed: Bartolome Patel MD at 15:06 EDT Tel [phone], Service supp ort [phone], CC: Sarah Pizano MD Oil Well Cable Tool Driller: Signed 16-Mar-2016 Dexa Bone Density Study (HP) Result: Comments: See Note; NOTES: [facility] Imaging Services [address] [place] [address] Verdana 4d Dexa Bone Density Study (HP) MR#: [id number] Acct: [id number] Name: MAURI COBIAN Rep #: [id number] : 1955 F 61 From: Bartolome Patel MD PCP: Sarah Pizano MD Status: REG CLI Study: Dexa Bone Density Study (HP) Date of Exam: 03/16/16 Exam# [id number] Ordering Dr: Sarah Deng MD STUDY: DUAL [...] Bartolome Patel MD at 14:15 EDT Tel [phone], Service support [phone], CC: Sarah Pizano MD Oil Well Cable Tool Driller: Signed 22-Feb-2016 History and Physical Exam Result: Comments: See Note; NOTES: [facility] Medical Records Department [address] [place] [address] History and Physical 02/22/162054 MR#: [id number] Acct: [id number] Name: JOSE J COBIAN Rep #: [id number] : 1955 60 From: An Dent DO [...] was seen in the emergency room at [facility] with a chief complaint of [...] - Mediport placement Psychiatric Hist ory: Anxiety MORNING [employer] History: No pertinent MORNING [employer] history Lives: Spouse/ Significant Other Smoking Status: [...] 44.6 L Lymph % (Auto) 46.1 H Whiteside % (Auto) 6.9 Eos % (Auto) 2.0 [...] View (Portable) Result: Comments: See Note; NOTES: [facility] Imaging Services [address] [place] [address] Verdaolvin 4d Chest 1 View (Portable) MR#: [id number] Acct: [id number] Name: JOSE J COBIAN Rep #: [id number] : 1955 F 60 From: Kim Dsouza MD PCP: Sarah Pizano MD Status: REG ER Study: Chest 1 View (Portable) Date of Exam: 02/22/16 Exam# [id number] Ordering Dr: Mac Chi MD STUDY: X-RAY [...] MD at 19:35 EDT , Service support [phone], CC: Sarah Pizano MD; Mac Chi MD Oil Well Cable Tool Driller: Signed 16-Feb-2016 Thoracic Spine 3 Views Result: Comments: See Note; NOTES: [facility] Imaging Services [address] [place] [address] Verdana 4d Thoracic Spine 3 Views MR#: [id number] Acct: [id number] Name: JOSE J COBIAN Yamilka #: [id number] : 1955 F 60 From: Kirk Wall MD PCP: Sarah Pizano MD Status: REG CLI Study: Thoracic Spine 3 Views Date of Exam: 02/16/16 Exam# [id number] Ordering Dr: Sarah Pizano MD ST UDY: [...] at 21:50 EDT , S titi support [phone], CC: Sarah Pizano MD Oil Well Cable Tool Driller: Signed 03-Nov-2015 Operative Report Result: Comments: See Note; NOTES: [facility] Medical Records Department [facility] [place] [address] Operative Report MR#: [id number] Acct: [id number] Name: JOSE J COBIAN Rep #: [id number] : 1955 60 From: Bubba Romero MD PCP: Sarah Pizano MD Status: [facility] DATE OF SERVICE: 10/20/2015 DATE OF PROCEDURE: [...] indicated. Lidia Romero MD T: NTS JOB: [id number] 11/03/15 3045 <Electronically signed by Bubba Romero MD> Date Bubba Romero MD Co signer Signature (If Indicated): Date CC: Sarah Pizano MD; Bubba Romero Date Dictated: 10/20/15 1351 Date Transcribed: 10/20/151350 Oil Well Cable Tool Driller: Signed 20-Oct-2015 Cerv Spine 2 or 3 Views Result: Comments: See Note; NOTES: [facility] Imaging Services [address] [place] [address] Verdana 4d Cerv Spine 2 or 3 Views MR#: [id number] Acct: [id number] Name: JOSE J NOWAK Rep #: [id number] : 1955 F 60 From: Bartolome Patel MD PCP: Sarah Pizano MD Status: [facility] Study: Cerv Spine 2 or 3 Views Date of Exam: 10/20/15 Exam# [id number] Ordering Dr: Bubba Romero MD STUDY: X-RAY [...] Bartolome Patel MD at 13:45 EDT Tel [phone], Service support [phone], RAD/Cerv Spine 2 or 3 Views IMPRESSION: Fluoroscopic services provided for right 4 through C7 facet block. Electronically Signed: Bartolome Patel MD at 13:45 EDT Tel [phone], Service support [phone], CC: Sarah Pizano MD; Bubba Romero Oil Well Cable Tool Driller: Signed 18-Aug-2015 Operative Report Result: Comments: See Note; NOTES: [facility] Medical Records Department [address] [place] [address] Operative Report MR#: [id number] Acct: [id number] Name: JOSE J COBIAN Denise Rep #: [id number] : 1955 60 From: Bubba Romero MD PCP: Sarah Pizano MD Status: [facility] DATE OF SERVICE: 08/04/2015 DATE OF SERVICE: [...] if indicate d. Bubba Romero MD T: [facility] JOB: [id number] 08/18/15 0927 <Electronically signed by Bubba Romero MD> Date Bubba copeland MD Cosigner Signature (If Indicated): Date CC: Sarah Pizano MD; Bubba Romero Date Dictated: 08/04/151432 Date Transcribed: 08/04/151432 Oil Well Cable Tool Driller: Signed 04-Aug-2015 Cerv Spine 2 or 3 Views Result: Comments: See Note; NOTES: [facility] Imaging Services [address] [place] [address] Verdana 4d Cerv Spine 2 or 3 Views MR#: [id number] Acct: [id number] Name: JOSE J NOWAK Rep #: [id number] : 1955 F 60 From: Kirk Wall MD PCP: Sarah Pizano MD Status: [facility] Study: Cerv Spine 2 or 3 Views Date of Exam: 08/04/15 Exam# [id number] Ordering Dr: Osiel Romero MD STUDY: X-RAY [...] MD at 16:28 EST , Service support [phone], RAD/Cerv Spine 2 or 3 Views IMPRESSION: Needle positions as above. Electronically Signed: Kirk Wall MD at 16:28 EST , Service support [phone], CC: Sarah Pizano MD; Bubba Romero Oil Well Cable Tool Driller: Signed 02-Jul-2015 Hip min 2 Views Result: Comments: See Note; NOTES: [facility] Imaging Services [address] [place] [address] Verdana 4d Hip min 2 Views MR#: [id number] Acct: [id number] Name: VIRAJ COBIAN Rep #: [id number] : 1955 F 60 From: Tuan Boyd MD PCP: Sarah Pizano MD Status: REG CLI Study: Hip min 2 Views Date of Exam: 07/02/15 Exam# [id number] Ordering Dr: Sarah Pizano MD S DY: [...] at 12:42 EST Tel , Service support [phone], Fax RAD/Hip min 2 Views IMPRESSION: Normal x-ray examination of the hip. Electronically Signed: Lucius Boyd MD at 12:42 EST Tel , Linnea e support [phone], CC: Sarah Pizano MD Oil Well Cable Tool Driller: Signed 24-Jun-2015 Pelvis 1 or 2 Views Result: Comments: See Note; NOTES: [facility] Imaging Services [address] [place] [address] Verdana 4d Pelvis 1 or 2 Views MR#: [id number] Acct: [id number] Name: JOSE J COBIAN Rep #: [id number] : 1955 F 60 From: Prosper Dumont MD PCP: Sarah Pizano MD Status: REG CLI Study: Pelvis 1 or 2 Views Date of Exam: 06/24/15 Exam# [id number] Ordering Dr: Tuan Pizano MD STUDY: X-RAY [...] at 11:20 EST Tel , Service support [phone], RAD/Pelvis 1 or 2 Views IMPRESS ION: There is narrowing with cortical sclerosis and osteophyte formation of the sacroiliac joint consistent with degenerative osteoarthritic changes. Electronically Signed: Lavell Dumont MD 08/26 at 11:20 EST Tel , Service support [phone], CC: Sarah Pizano MD Oil [employer] Cable Tool Driller: Signed 07-Feb-2015 Chest PA and Lateral Result: Comments: See Note; NOTES: [facility] [facility] Imaging Services [address] [place] [address] Radiology Report MR#: [id number] Acct: [id number] Name: JOSE J COBIAN Rep #: [id number] : 1955 F 59 From: Baldemar Torres DO PCP: Sarah Pizano MD Status: REG CLI Study: Chest PA and Lateral Date of Exam: 02/07/15 Exam# [id number] Ordering Dr: Pamella Saavedra STUDY: X-RAY CHES [...] Baldemar Torres DO at 19:14 EDT Tel [phone], Service support , RAD/Chest PA and Lateral IMPRESSION: No acute cardiopulmonary disease or interval change. Electronically Signed: Baldemar Torres DO at 19: 14 EDT Tel [phone], Service support [phone], CC: Pamella Saavedra; Sarah Pizano MD [employer]: Signed 05-Feb-2014 Katie Santillann [employer] CAD Result: Comments: See Note; NOTES: [facility] Imaging Services [address] [place] [address] Breast Imaging Report MR#: [id number] Acct: [id number] Name: JOSE J COBIAN Rep #: [id number] : 1955 F 58 From: Bartolome Patel MD PCP: Sarah Pizano MD Status: REG CLI Exam# [id number] Ordering Dr: Sarah Pizano MD MAMMOGRAPHY - [...] Bartolome Patel MD at 13:16 EDT Tel [phone], Service support [phone], CC: Sarah Pizano MD [employer]: Signed 06-Jun-2013 Abdomen/Pelvis with Contrast Result: Comments: See Note; NOTES: [facility] Imaging Services [address] [place] [address] CAT Scan Report MR#: [id number] Acct: [id number] Name: JOSE J COBIAN Rep #: [id number] : 1955 F 58 From: Tuan Atkins MD PCP: Sarah Pizano MD Status: REG CLI Study: Abdomen/Pelvis with Contrast Date of Exam: 06/06/13 Exam# [id number] Ordering Dr: Sarah Pizano MD STUD Y: [...] M.D. at 0:12 EST , Service support [phone], CC: Sarah Pizano MD [employer]: Signed Immunization Name Dates Details Influenza (3 [...] Lives with spouse. 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0 (Normal) UA - BLOOD Negative (Normal) UA - SPECIFIC GRAVITY 1.010 (Normal) UA - KETONES Negative mg/dL (Normal) UA - BILIRUBIN Negative (Normal) UA - GLUCOSE Negative (Normal) 03-Apr-20188:00 Protime w/INR Fingerstick Comments: [facility]Point of [address]orm[address] [place], [place] [id number] INR ISTAT 1.10 (Normal) Comments: Critical Value > 3.5 PROTIME ISTAT 13.7 {SEC} (Normal) Range: 11.9-14.4 Comments: Reference Range 11.9 - 14.4 :23 Amylase 89 U/L (Normal) Comments: PATIENT NOT FASTINGPERFORMED BY: [facility]CoKind[facility] at MorrisMaiwqm0045 [facility] [id number] Range: 31-124 23-Def-250286:23 CBC With Differential/Platelet Comments: PATIENT NOT FASTINGPERFORMED BY: [facility]CoKind[facility] at MorrisHhxntf6873 [facility] [id number] Immature Grans (Abs) 0.0 {x10E3/uL} (Normal) Range: [...] 3.77-5.28 WBC 4.2 {x10E3/uL} (Normal) Range: 3.4-10.8 81-Fcd-668933:23 Comp. Metabolic Panel (14) Comments: PATIENT NOT FASTINGPERFORMED BY: [facility] LabsKind[facility] at MorrisSdvdqt4090 [facility] [id number] ALT (SGPT) 18 [iU]/L (Normal) Range: 0-32 [...] U/L (Abnormal) Comments: PATIENT NOT FASTINGPERFORMED BY: [facility] LabsKind[facility] at MorrisUtoujw9211 [facility] [id number] 4:23 Range: 14-72 24-Eio-885233:23 Urinalysis, Routine Comments: PATIENT NOT FASTINGPERFORMED BY: [facility]CoKind[facility] at MorrisWxeizo4[address] [place] [id number] Microscopic Examination MICNIP (Normal) Comments: Microscopic not indicated and not performed. Nitrite, Urine Negative (Normal) Urobilinogen,Semi-Qn 1.0 mg/dL (Normal) Range: 0.2-1.0 Bilirubin Negative (Normal) Occult Blood Negative (Normal) Ketones Negative (Normal) Glucose Negative (Normal) Protein Negative (Normal) WBC Esterase Negative (Normal) Appearance Clear (Normal) Urine-Color Yellow (Normal) pH 6.0 (Normal) Range: 5.0-7.5 Specific [place] 1.020 (Normal) Range: 1.005-1.030 :42 Protime w/INR Fingerstick Comments: [facility]Point of [address] [place], [place] [address] INR ISTAT 1.00 (Normal) Comments: Critical Value > 3.5 PROTIME ISTAT 12.4 {SEC} (Normal) Range: 11.9-14.4 Comments: Reference Range 11.9 - 14.4 30-Rut-870196:14 CBC W/Diff, Automated Comments: [facility] [address] [place], [address] ; fu 6-19 Absolute Lymph [...] 4.2-5.4 WBC 4.7 K/mm3 (Normal) Range: 4.4-11.0 15-Hzq-694391:14 Comprehensive Metabolic Profil Comments: [facility] [address] [place], [address] GAP 5 (Normal) Range: 5-15 CO2 29.0 [...] A.D.A. criteria.Please note revised GLUCOSE reference range vetdrvgfe00/02/2018. 98-Fmb-409574:14 Ferritin Comments: [facility] [address] [place], [address] FERRITIN 82 ng/mL (Normal) Range: 8-252 85-Sjz-950065:14 Vitamin B12 558 pg/mL (Normal) Comments: [place] [address] [place], [id number] Range: 211-911 05-Sep-20178:07 Protime w/INR Fingerstick Comments: [facility] LaboratoryPoint [place] [address] [address] [place] [address] INR ISTAT 1.30 (Normal) Comments: Critical Value > 3.5 PROTIME ISTAT 14.9 {SEC} (Abnormal) Range: 11.9-14.4 Comments: Reference Range 11.9 - 14.4 08-Aug-20179:10 Protime w/INR Fingerstick Comments: [place] [address] [address] [place] [address] INR ISTAT 1.10 (Normal) Comments: Critical Value > 3.5 PROTIME ISTAT 13.0 {SEC} (Normal) Range: 11.9-14.4 Comments: Reference Range 11.9 - 14.4 20-Okr-769301:32 Culture, Blood (WB) Comments: [place] [address] [address] [place], [id number] CUB See Note (Normal) Comments: Has pt arrived? Y Comments: DR. Mello growth in 5 days. 23-Mvv-262266:25 CBC W/Diff, Automated Comments: Comments: DR Cui [facility] [address] [place], [address] Absolute Lymph 1.68 {X10_3/ul} (Normal) [...] 4.2-5.4 WBC 3.9 K/mm3 (Abnormal) Range: 4.4-11.0 49-Mnb-137426:25 Culture, Blood (WB) Comments: [facility] [address] [place], [address] CUB See Note (Normal) Comments: Has pt arrived? Y Comments: DR. Mello growth in 5 days. 74-Nzs-755326:25 Erythrocyte Sed Rate Comments: Comments: DR Cui [facility] [address] [place], [address] SED RATE 8 mm/h (Normal) Range: 0-30 13-Mit-037025:25 Ferritin Comments: Comments: [facility] [address]hozl[address] [place], [address] FERRITIN 83 ng/mL (Normal) Range: 8-252 45-Xiw-303542:25 Vitamin D,25 Hydroxy Comments: Order Date: 07/20/17[facility] [address] [place], [address] Vitamin D 25-OH 34.6 ng/mL (Normal) Comments: Vitamin D 25(OH) Status Range Deficiency <20 ng/mL (50nmol/L) Insuffciency 20 - 30 ng/mL (50 - 75 nmol/L) Sufficiency 30 - 100 ng/mL (75 - 250 nmol/L) Toxicity >100 ng/mL (>250 nmol/L) 00-Qhh-587595:10 Culture, Urine Comments: [facility] [address]im[address] [place] [place], [address] CUUR See Note (Normal) Comments: Order Date: 07/20/17 Comments: DR PIZANO Urine CultureCulture exhibits no growth. 91-Bby-589814:10 Urinalysis, Complete Comments: Order Date: 07/20/17Has pt arrived? YComments: DR Morales was Urine Obtained? CLEAN [facility] [address] [place], [address] MUCUS, URINE 0 SEEN {/hpf} (Normal) [...] Yellow (Normal) :48 Protime w/INR Fingerstick Comments: [place] [address] [place] [address] INR ISTAT 1.10 (Normal) Comments: Critical Value > 3.5 PROTIME ISTAT 13.2 {SEC} (Normal) Range: 11.9-14.4 Comments: Reference Range 11.9 - 14.4 :30 Protime w/INR Fingerstick Comments: [place] [address] [place] [address] INR ISTAT 1.10 (Normal) Comments: Critical Value > 3.5 PROTIME ISTAT 12.8 {SEC} (Normal) Range: 11.9-14.4 Comments: Reference Range 11.9 - 14.4 :44 INR Fingerstick Comments: [place] [address] [place] [address] INR ISTAT 1.10 (Normal) Comments: Critical Value > 3.5 :44 Prothrombin Time Fingerstick Comments: [place] [address] [place] [address] PROTIME ISTAT 13.6 {SEC} (Normal) Range: 11.9-14.4 Comments: Reference Range 11.9 - 14.4 68-Itt-735175:17 HgA1C , Office (95199) HgA1C , Office 5.7 % (Normal) Range: 4.6 - 7.1 49-Kig-049593:08 Metabolic Panel, Basic Comments: PATIENT NOT FASTINGPERFORMED BY: [facility] Znfend8276 [facility] [id number] (46607) Calcium, Serum 9.1 mg/dL (Normal) Range: 8.7-10.3 [...] Glucose, Serum 97 mg/dL (Normal) Range: 65-99 17-Edq-490497:08 CBC (Auto) (74444) Comments: PATIENT NOT FASTINGPERFORMED BY: [facility]6[address] [facility] [id number] Platelets 306 {x10E3/uL} (Normal) Range: 150-379 RDW 15.6 % (Abnormal) Range: 12.3-15.4 MCHC 32.9 g/dL (Normal) Range: 31.5-35.7 MCH 28.3 pg (Normal) Range: 26.6-33.0 MCV 86 fL (Normal) Range: 79-97 Hematocrit 35.9 % (Normal) Range: 34.0-46.6 Hemoglobin 11.8 g/dL (Normal) Range: 11.1-15.9 RBC 4.17 {x10E6/uL} (Normal) Range: 3.77-5.28 WBC 4.6 {x10E3/uL} (Normal) Range: 3.4-10.8 89-Ybn-328174:08 URINALYSIS W/O MICRO (20668) Comments: PATIENT NOT FASTINGPERFORMED BY: Ana[employer]ios6370 [facility]Carol[facility] [id number] Microscopic Examination MICNIP (Normal) Comments: Microscopic not indicated and not performed. Nitrite, Urine Negative (Normal) Urobilinogen,Semi-Qn 0.2 mg/dL (Normal) Range: 0.2-1.0 Bilirubin Negative (Normal) Occult Blood Negative (Normal) Ketones Negative (Normal) Glucose Negative (Normal) Protein Negative (Normal) WBC Esterase Negative (Normal) Appearance Clear (Normal) Urine-Color Yellow (Normal) pH 6.0 (Normal) Range: 5.0-7.5 Specific [place] 1.013 (Normal) Range: 1.005-1.030 56-Met-541970:08 COMPLEMENT C4 (10895) Comments: PATIENT NOT FASTINGPERFORMED BY: [facility]6370 [facility] [id number] Complement C4, Serum 16 mg/dL (Normal) Range: 14-44 92-Kvc-900357:08 COMPLEMENT C3 (35107) Comments: PATIENT NOT FASTINGPERFORMED BY: [address] [id number] Complement C3, Serum 103 mg/dL (Normal) Range: 82-167 78-Wey-999757:08 DNA ANTIBODY-NATV/DBL ST (96902) Comments: PATIENT NOT FASTINGPERFORMED BY: [address] [id number] test code 035209 Anti-DNA (DS) Ab Qn <1 {IU/mL} (Normal) Range: 0-9 Comments: Negative <5 Equivocal 5 - 9 Positive >9 38-Exo-389846:08 Sed Rate Erythrocyte (28949) Comments: PATIENT NOT FASTINGPERFORMED BY: [place] [address] [facility] [id number] Sedimentation Rate-Westergren 4 mm/h (Normal) Range: 0-40 21-Xwx-179708:08 DESIRAE (ANTINUCLEAR ANTIBODY) Comments: PATIENT NOT FASTINGPERFORMED BY: [address] [id number] (14560) DESIRAE Direct Negative (Normal) 1-Gwq-699522:04 Prothrombin Time w/INR Comments: [facility] [address] [place], [place], [address] INR 1.5 (Normal) PROTIME 17.8 s (Abnormal) Range: 11.7-14.9 06-Dwq-254507:45 Prothrombin Time w/INR Comments: [facility] [address] [place], [place], [address](364) INR 3.0 (Normal) PROTIME 30.3 s (Abnormal) Range: 11.7-14.9 :51 Serum Creatinine AND GFR Comments: [facility] [address] [place], [address] EST GFR - AA 90 mL/min (Normal) Comments: GFR Calc EST GFR 74 mL/min (Normal) Comments: Non- GFR Calc CREAT,SERUM 0.83 mg/dL (Normal) Range: 0.55-1.02 Comments: The validity of the calculated GFR AND GFRAA in patients over70 years has not been determined. Clinical correlation isessential. :21 LIPASE (91546) Comments: PATIENT NOT FASTINGPERFORMED BY: [facility] Qqtqop5097 [address] RoadDublin [place] [id number] Lipase, Serum 46 U/L (Normal) Range: 14-72 Comments: Please note reference interval change :21 AMYLASE (75196) Comments: PATIENT NOT FASTINGPERFORMED BY: CB [facility] Vbnzqn2686 Vila RoadDublin [place] [id number] Amylase, Serum 65 U/L (Normal) Range: 31-124 6-Uaq-983415:21 CALCIFIDIOL (88772) VIT D 25 Comments: PATIENT NOT FASTINGPERFORMED BY: CB [facility] Zfcodl0105 [address] Road[address]ublin [place] [id number] Vitamin D, 25-Hydroxy 25.8 ng/mL (Abnormal) Range: 30.0-100.0 Comments: Vitamin D deficiency has been defined by the [place] ofMedicine and an Endocrine Society practice guideline as alevel of serum 25-OH vitamin D less than 20 ng/mL (1,2).The Endocrine Society went on to further define vitamin Dinsufficiency as a level between 21 and 29 ng/mL (2).1. IOM ([place] of Medicine). 2010. Dietary reference intakes for calcium and D. [place]: The National Academies Press.2. Candelaria MF, Janey ELIAS, Yolande GROSS, et al. Evaluation, treatment, and prevention of vitamin D deficiency: an Endocrine Society clinical practice guideline. JCEM. 2010; 96(7):1911-30. 0-Iul-444731:21 Ferritin (39791) Comments: PATIENT NOT FASTINGPERFORMED BY: MONA [facility] Lxggbc[address]87 [address] [facility] [place] [id number]; fu 10-27 db Ferritin, Serum 10 ng/mL (Abnormal) Range: 15-150 6-Fvb-021477:21 Vitamin B-12 (cyanocobalamin) Comments: PATIENT NOT FASTINGPERFORMED BY: [facility] Jslgoy9850 [facility] [id number] (89083) Vitamin B12 1888 pg/mL (Abnormal) Range: 211-946 2-Kco-909015:21 METABOLIC PANEL, COMPREHENSIVE Comments: PATIENT NOT FASTINGPERFORMED BY: MONA [facility] Fpkzck1745 [address] [facility] [id number] (63521) ALT (SGPT) 11 [iU]/L (Normal) Range: 0-32 [...] Glucose, Serum 101 mg/dL (Abnormal) Range: 65-99 5-Tkg-680488:21 CBC with auto diff Comments: PATIENT NOT FASTINGPERFORMED BY: MONA [facility] Gxqrqk[address] [place] [id number] Information: CLIENT DRAW (28760) Immature Grans (Abs) 0.0 {x10E3/uL} (Normal) Range: [...] 3.77-5.28 WBC 5.7 {x10E3/uL} (Normal) Range: 3.4-10.8 18-Bzn-743454:14 Prothrombin Time w/INR Comments: [facility] [address] [place], [address] INR 1.9 (Normal) Comments: ADDENDA: handled by cardio PROTIME 21.0 s (Abnormal) Range: 11.7-14.9 :57 HEPATIC FUNCTION PANEL Comments: PATIENT NOT FASTINGPERFORMED BY: [facility]6370 [facility] [id number] (02319) ALT (SGPT) 15 [iU]/L (Normal) Range: 0-32 AST (SGOT) 20 [iU]/L (Normal) Range: 0-40 Alkaline Phosphatase, S 114 [iU]/L (Normal) Range: 39-117 Bilirubin, Direct 0.10 mg/dL (Normal) Range: 0.00-0.40 Comments: Please note reference interval change Bilirubin, Total <0.2 mg/dL (Normal) Range: 0.0-1.2 Albumin, Serum 4.9 g/dL (Abnormal) Range: 3.6-4.8 Protein, Total, Serum 7.1 g/dL (Normal) Range: 6.0-8.5 :57 IGA/IGD/IGG/IGM-EACH (02711) Comments: PATIENT NOT FASTINGPERFORMED BY: [facility]6370 [facility] [id number] Immunoglobulin E, Total 50 {IU/mL} (Normal) Range: 0-100 Immunoglobulin M, Qn, Serum 43 mg/dL (Normal) Range: 26-217 Immunoglobulin A, Qn, Serum 131 mg/dL (Normal) Range: 87-352 Immunoglobulin G, Qn, Serum 753 mg/dL (Normal) Range: 700-1600 68-Ntl-059125:57 EBV ACUTE PFOF IgG/IgM Comments: PATIENT NOT FASTINGPERFORMED BY: [facility]6370 [facility] [id number] (21714) Interpretation: SPR (Normal) Comments: EBV Interpretation Chart [...] (LACTATE DEHYDROGENASE) Comments: PATIENT NOT FASTINGPERFORMED BY: [facility]6370 [facility] [id number] (19068) LDH 191 [iU]/L (Normal) Range: 119-226 48-Bri-300569:57 HIV-1 & 2 ANTBDY-SNGL SHAWN Comments: PATIENT NOT FASTINGPERFORMED BY: [facility]6370 [facility] [id number] (64373) HIV Screen 4th Generation wRfx Non Reactive (Normal) :57 HEPATITIS PANEL (69752) Comments: PATIENT NOT FASTINGPERFORMED BY: [facility]6370 [facility] [id number] Hep C Virus Ab 0.1 {s/co_ratio} (Normal) Range: 0.0-0.9 Comments: Negative: < 0.8 Indeterminate: 0.8 - 0.9 Positive: > 0.9 . The CDC recommends that a positive HCV antibody result be followed up with a HCV Nucleic Acid Amplification test (482308). Hep B Core Ab, IgM Negative (Normal) HBsAg Screen Negative (Normal) Hep A Ab, IgM Negative (Normal) 1-Izi-304199:56 Culture, Blood (WB) Comments: [facility] [address] [place], [place], [address] CUB See Note (Normal) Comments: BCNo growth in 5 days. 3-Jtq-612720:56 EBV Acute Prof IgG / IgM Comments: [facility] (refer to report for specific site)refer to report for address and phone number INTERPRETATION Comment (Normal) Comments: EBV Interpretation ChartInterpretation EBV-IgM EA(D)-IgG VCA-IgG EBNA-IgGEBV Seronegative - - - -Early Phase + - - -Acute Primary + +or- + -InfectionConvalescence/Past - +or- + +InfectionReactivated +or- + + +Infection + Antibody Present - Antibody Ab sentPerformed at: [address] [id number] Director: Neo Campos PhD, Phone: [phone] EB-NAg [id number] 136.0 U/mL (Abnormal) Range: 0.0-17.9 Comments: Negative <18.0 Equivocal 18.0 - 21.9 Positive >21.9 EB-VCA IpH96652 255.0 U/mL (Abnormal) Range: 0.0-17.9 Comments: Negative <18.0 Equivocal 18.0 - 21.9 Positive >21.9 EB-EA IgG 50088 18.4 U/mL (Abnormal) Range: 0.0-8.9 Comments: Hepatitis A, Hepatitis C and HIV antibodies may cross-reactwith this assay. Negative < 9.0 Equivocal 9.0 - 10.9 Positive >10.9 EB-VCA CcN58925 36.1 U/mL (Abnormal) Range: 0.0-35.9 Comments: A second sample should be collected and tested no less than2-4 weeks. Negative <36.0 Equivocal 36.0 - 43.9 Positive >43.9 7-Tty-972156:56 Ferritin Comments: [facility] [address] [place], [address] FERRITIN 34 ng/mL (Normal) Range: 8-252 0-Xms-838708:56 Vitamin D,25 Hydroxy Comments: [facility] [address]qaj[address] [facility] [place], [address] Vitamin D 25-OH 29.2 ng/mL (Normal) Comments: Vitamin D 25(OH) Status Range Deficiency <20 ng/mL (50nmol/L) Insuffciency 20 - 30 ng/mL (50 - 75 nmol/L) Sufficiency 30 - 100 ng/mL (75 - 250 nmol/L) Toxicity >100 ng/mL (>250 nmol/L) 5-Oov-128068:03 INR Fingerstick Comments: [place] [address] [place] [address] INR ISTAT 1.00 (Normal) Comments: Critical Value > 3.5 3-Kel-391632:03 Prothrombin Time Fingerstick Comments: [place] [address] [place] [address] PROTIME ISTAT 12.1 {SEC} (Normal) Range: 11.9-14.4 Comments: Reference Range 11.9 - 14.4 35-Jos-682125:55 Prothrombin Time w/INR Comments: [place] [address] [place], [address] INR 2.6 (Normal) PROTIME 26.7 s (Abnormal) Range: 11.7-14.9 :44 GRETTA CULTURE-OTHER (63433) Comments: PATIENT NOT FASTINGPERFORMED BY: [facility] [id number] Information: THROAT SRC:TH Result 1 RRF (Normal) Comments: Routine respiratory rajwinder Upper Respiratory Culture Final report (Normal) 63-Ade-430474:31 Rapid Flu (24660 x 2) Influenza A Ag negative (Normal) 66-Xcb-872386:31 Rapid Strep Test, Office (05591) Rapid Strep Test, Office Negative (Normal) 01-Arx-314620:46 Microscopic Examination Comments: PATIENT NOT FASTINGPERFORMED BY: [facility] [facility] Frtptj3703 [facility] [id number] Bacteria Few (Normal) Mucus Threads Present (Normal) Crystal Type Calcium Oxalate (Normal) Crystals Present (Abnormal) Epithelial Cells (non renal) 0-10 {/hpf} (Normal) Range: 0 - 10 RBC 0-2 {/hpf} (Normal) Range: 0 - 2 WBC 0-5 {/hpf} (Normal) Range: 0 - 5 99-Cnc-057884:46 URINALYSIS (35306) Comments: PATIENT NOT FASTINGPERFORMED BY: [employer] OneKind[facility] at MorrisFiehte6413 [facility] [id number] Microscopic Examination See below: (Normal) Comments: Microscopic was indicated and was performed. Nitrite, Urine Negative (Normal) Urobilinogen,Semi-Qn 1.0 mg/dL (Normal) Range: 0.2-1.0 Bilirubin Negative (Normal) Occult Blood Negative (Normal) Ketones Negative (Normal) Glucose Negative (Normal) Protein Negative (Normal) WBC Esterase 1+ (Abnormal) Appearance Clear (Normal) Urine-Color Yellow (Normal) pH 6.0 (Normal) Range: 5.0-7.5 Specific [place] 1.018 (Normal) Range: 1.005-1.030 74-Vee-686937:46 CBC WITH MANUAL DIFF (18941) Comments: PATIENT NOT FASTINGPERFORMED BY: [facility]Kind[facility] at MorrisWizhsi0583 [facility] [id number] Immature Grans (Abs) 0.0 {x10E3/uL} (Normal) Range: [...] 3.77-5.28 WBC 4.5 {x10E3/uL} (Normal) Range: 3.4-10.8 99-Jiz-708516:46 Ferritin (38925) Comments: PATIENT NOT FASTINGPERFORMED BY: [facility] LabsKindred Hospital at MorrisFbwvig6497 [facility] [id number] Ferritin, Serum 10 ng/mL (Abnormal) Range: 15-150 47-Twi-525741:46 Metabolic Panel, Comprehensive Comments: PATIENT NOT FASTINGPERFORMED BY: [facility]ProCoKind[facility] Hospital at MorrisUekcqz9009 [facility] [id number] (13464) ALT (SGPT) 18 [iU]/L (Normal) Range: 0-32 [...] Glucose, Serum 86 mg/dL (Normal) Range: 65-99 84-Qke-286105:46 AMYLASE (09596) Comments: PATIENT NOT FASTINGPERFORMED BY: [facility]CoKind[facility] Hospital at MorrisVhhshk0777 [facility] [id number] Amylase, Serum 81 U/L (Normal) Range: 31-124 22-Wkk-526261:46 LIPASE (36791) Comments: PATIENT NOT FASTINGPERFORMED BY: [facility]CoKind[facility] Hospital at MorrisFxljxu9563 [facility] [id number] Lipase, Serum 79 U/L (Abnormal) Range: 0-59 10-Mml-463166:33 Prothrombin Time w/INR Comments: Order Date: 03/23/16Order Date: 03/23/16Interface Comments: Reason:Order Date: 03/23/16[facility] [address] [place], [place], [address] INR 2.0 (Normal) PROTIME 22.3 s (Abnormal) Range: 11.7-14.9 77-Iaw-037912:36 Prothrombin Time w/INR Comments: [facility] [address] [place], [place], [address] INR 1.4 (Normal) PROTIME 17.1 s (Abnormal) Range: 11.7-14.9 18-Emh-422087:20 Prothrombin Time w/INR Comments: Order Date: 05/11/16Order Info: 6301-6 - *PT/INR - Standing OrderComments: Standing Order-Reason:Order Date: 05/11/16Order Info: 6301-6 - *PT/INR - Standing OrderComments: Standing Order- Reason:[facility] [address] [place], [place], [address] INR 1.2 (Normal) PROTIME 14.8 s (Normal) Range: 11.7-14.9 8-Ahh-690386:50 Prothrombin Time w/INR Comments: Order Date: 05/11/16Order Info: 6301-6 - *PT/INR - Standing OrderComments: Standing Order-Reason:Order Date: 05/11/16Order Info: 6301-6 - *PT/INR - Standing OrderComments: Standing Order-Reason:Order Da te: 05/11/16Order Info: 6301-6 - *PT/INR - Standing OrderComments: Standing Order-Reason:[facility] [address] [place], [place], [address] INR 1.2 (Normal) PROTIME 15.1 s (Abnormal) Range: 11.7-14.9 :00 Culture, Nose Comments: [facility] [address] [place], [place], [address] CUN See Note (Normal) Comments: Comments: NARESGram StainGram Stain Rare White Blood Cells 1+ Epithelial cells 4+ Gram positive rods Nasoph. CultNo Haemophilus, Streptococcus pneumoniae, beta-hemolytic Streptococcus or Staphylococcus aureus isolated. :00 Culture, Throat Comments: [facility] [address] [place], [place], [address] CUT See Note (Normal) Comments: Comments: NARESCulture, ThroatNo Haemophilus, Streptococcus pneumoniae, beta-hemolytic Streptococcus or Staphylococcus aureus isolated. 04-Qfb-099843:05 Rapid Flu (41651 x 2) Influenza A Ag neg (Normal) :45 CBC W/Diff, Automated Comments: Order Date: 03/18/16Order Date: 03/18/16[facility] Oddjeaerru[address] [place], [place], [address] Absolute Lymph 2.95 {X10_3/ul} (Normal) Range: 0.83-4.51 [...] 1'CKMB' Serial Specimen #1, #2 or #3? 1[facility] Qxwhxrscjw0114 [facility] [place], [address] CKRI 3.2 % (Abnormal) Range: 0.0-1.4 Comments: RELATIVE INDEX >1.5% IS PRESUMPTIVELY POSITIVE CPKMB 1.8 ng/mL (Normal) Range: 0.0-5.0 Comments: CK-MB and RI Interpretation MB Relative Index Non-AMI <or= 5 NA Indeterminate > 5 <or= 4 AMI > 5 > 4 CPK TOTAL 57 U/L (Normal) Range: 26-192 :45 Erythrocyte Sed Rate Comments: Order Date: 03/18/16Order Date: 03/18/16[facility] Hhgditwlkz6[address] [place], [id number] SED RATE 1 mm/h (Normal) Range: 0-30 :45 Myoglobin, Serum Comments: Order Date: 03/18/16[facility] (refer to report for specific site)refer to report for address and phone number Myoglobin, Ser 23 ng/mL (Abnormal) Range: 25-58 Comments: Performed at: - [facility] [id number] Director: Neo Campos PhD, Phone: [phone] 84-Qtz-596256:45 Troponin-I Comments: Order Date: 03/18/16TROP ADDED 03/19/16Order Date: 03/18/16'TROP' Serial specimen #1, #2, #3, or #4: 1'CKMB' Serial Specimen #1, #2 or #3? [address] [place] [address] Dzskmqmsjx9438 [address] [place], [id number] TROPONIN-I < 0.02 ng/mL (Normal) Comments: TROPONIN-I EXPECTED VALUES <0.05 NEGATIVE 0.06 - 0.59 AT RISK OF DC > OR = 0.60 SUGGEST DC 86-Ktv-987897:00 Basic Metabolic Profile (BMP) Comments: 'TROP' Serial specimen #1, #2, #3, or #4: [address] [place] [address] Wgmmhrrkam5492 [address] [place], [id number] GAP 6 (Normal) Range: 5-15 CO2 26.0 [...] Range: 70-110 :00 CBC W/Diff, Automated Comments: [facility] Zjaodezicu[address] [place], [address] Absolute Lymph 2.27 {X10_3/ul} (Normal) Range: 0.83-4.51 [...] 4.2-5.4 WBC 4.9 K/mm3 (Normal) Range: 4.4-11.0 88-Wkz-349236:00 Lipase Comments: 'TROP' Serial specimen #1, #2, #3, or #4: [address] [place] [address] Llelpyvcxx0253 [place], [address] LIPASE 351 U/L (Normal) Range: 73-393 78-Iba-581685:00 Liver Profile Comments: 'TROP' Serial specimen #1, #2, #3, or #4: [address] [place] [address] Qdwddpbkmt2960 [place], [address] D BILI 0.15 mg/dL (Normal) Range: 0.00-0.30 T BILI 0.30 mg/dL (Normal) Range: 0.20-1.00 ALT 23 U/L (Normal) Range: 12-78 ALK P 81 U/L (Normal) Range: 50-136 AST 24 U/L (Normal) Range: 15-37 GLOB 2.8 g/dL (Normal) Range: 2.3-3.5 ALB 4.0 g/dL (Normal) Range: 3.4-5.0 T PROT 6.8 g/dL (Normal) Range: 6.4-8.2 34-Hmq-107642:00 Troponin-I Comments: 'TROP' Serial specimen #1, #2, #3, or #4: [address] [place] [address] [address]zlf[address] [place], [address] TROPONIN-I < 0.02 ng/mL (Normal) Comments: TROPONIN-I EXPECTED VALUES <0.05 NEGATIVE 0.06 - 0.59 AT RISK OF DC > OR = 0.60 SUGGEST DC 27-Hdj-065429:08 Osmolality, Urine Comments: Order Date: 02/16/16Has pt arrived? [facility] Trjxifclbj9039 [place], [address] OSMOLALITY,UR 310 {mOsm/KG} (Normal) Comments: OSMOLALITY URINE REFERENCE INTERVALS 24-hour Urine 300 - 900 mOsm/kg Random Urine 50 - 1400 mOsm/kg After 12 Hr fluid restriction >850 mOsm/kg 34-Fck-419006:50 Amylase Comments: [facility] Ibvuyhfgrf89[address] [place], [place], [address] PREMA 80 U/L (Normal) Range: 25-115 27-Dhr-300781:50 CBC W/Diff, Automated Comments: [facility] [address] [place], [address] Absolute Lymph 1.51 {X10_3/ul} (Normal) Range: [...] 4.2-5.4 WBC 4.3 K/mm3 (Abnormal) Range: 4.4-11.0 56-Zvz-874612:50 Comprehensive Metabolic Profil Comments: [facility] Dggjnmrxrf96[address] [place], [id number] GAP 6 (Normal) Range: 5-15 CO2 28.0 [...] 7-18 GLU 98 mg/dL (Normal) Range: 70-110 48-Vss-052647:50 Lipase Comments: [facility] Mvhtswogzt8257 [address] [place], [place], [id number] LIPASE 424 U/L (Abnormal) Range: 73-393 96-Cct-293079:50 Osmolality, Serum Comments: [facility] Nvjtpztftk0062 [address] [place], [place], [address] OSMOLALITY,SER 275 {mOsm/KG} (Normal) Range: 275-295 98-Uuu-985671:50 Vitamin B12 489 pg/mL (Normal) Comments: [facility] Omwfesoscf8846 [address] [place], [place], [address] ; will review on 02/19 Range: 211-911 37-Rsi-643761:50 Vitamin D,25 Hydroxy Comments: [facility] Ilxuqhspfm6760 BR[place], [address] Vitamin D 25-OH 37.6 ng/mL (Normal) Comments: Vitamin D 25(OH) Status Range Deficiency <20 ng/mL (50nmol/L) Insuffciency 20 - 30 ng/mL (50 - 75 nmol/L) Sufficiency 30 - 100 ng/mL (75 - 250 nmol/L) Toxicity >100 ng/mL (>250 nmol/L) 93-Jmh-72115:00 Ferritin Comments: [facility] Gmtbisnkxb1829 [place], [address] FERRITIN 13 ng/mL (Normal) Range: 8-252 03-Lvy-11825:00 Lipid Profile Comments: [facility] Zpypusyzub9471 [place], [address] VLDL 28 mg/dL (Normal) Range: 5-40 [...] 200-240 mg/dL Borderline >240 mg/dL High Risk 7-Hrl-253310:40 CBC W/Diff, Automated Comments: Order Date: 09/08/15Has pt arrived? [facility] Kuhcebhcjj9232 [place], [address] Absolute Lymph 1.80 {X10_3/ul} [...] 4.2-5.4 WBC 4.4 K/mm3 (Normal) Range: 4.4-11.0 2-Ncj-697563:40 Comprehensive Metabolic Profil Comments: Order Date: 09/08/15Has pt arrived? [facility] Fzthvycbup2715 [facility] [place], [place], [address] GAP -1 (Abnormal) Range: 5-15 CO2 30.0 [...] 7-18 GLU 97 mg/dL (Normal) Range: 70-110 9-Aii-719516:16 Amylase Comments: [facility] Dzzeacueok2661 [place], [address] PREMA 95 U/L (Normal) Range: 25-115 6-Qir-198270:16 Lipase Comments: [facility] Nzpbkvldko8881 [place], [address] LIPASE 568 U/L (Abnormal) Range: 73-393 5-Srw-199453:29 Influenza A&B Viral Comments: PATIENT NOT FASTINGPERFORMED BY: [facility] [employer] [facility] [id number] Information: SRC:NOS [id number] Culture (10162) Viral Culture,Rapid,Influenza FLUABN (Normal) Comments: Negative:No Influenza A or B detected. 5-Aac-057266:49 Rapid Flu (39255 x 2) Influenza A Ag neg (Normal) 27-Znv-247086:01 CBC (Auto) (67015) Comments: now and in six months (approximately); PATIENT WAS FASTINGPERFORMED BY: [facility]6370 [facility] [id number] Information: [id number], [id number] Platelets 357 {x10E3/uL} (Normal) Range: 150-379 RDW 14.6 % (Normal) Range: 12.3-15.4 MCHC 34.1 g/dL (Normal) Range: 31.5-35.7 MCH 29.8 pg (Normal) Range: 26.6-33.0 MCV 88 fL (Normal) Range: 79-97 Hematocrit 37.0 % (Normal) Range: 34.0-46.6 Hemoglobin 12.6 g/dL (Normal) Range: 11.1-15.9 RBC 4.23 {x10E6/uL} (Normal) Range: 3.77-5.28 WBC 5.7 {x10E3/uL} (Normal) Range: 3.4-10.8 24-Nws-941236:01 Metabolic Panel, Basic Comments: now; PATIENT WAS FASTINGPERFORMED BY: [employer] [place] [id number] (70342) Calcium, Serum 9.1 mg/dL (Normal) Range: 8.7-10.2 [...] Glucose, Serum 102 mg/dL (Abnormal) Range: 65-99 30-Jvy-950247:01 CALCIFIDIOL (82940) VIT D 25 Comments: now and in six months (approximately); PATIENT WAS FASTINGPERFORMED BY: [employer] [place] [id number] Vitamin D, 25-Hydroxy 32.8 ng/mL (Normal) Range: 30.0-100.0 Comments: Vitamin D deficiency has been defined by the [place] ofMedicine and an Endocrine Society practice guideline as alevel of serum 25-OH vitamin D less than 20 ng/mL (1,2).The Endocrine Society went on to further define vitamin Dinsufficiency as a level between 21 and 29 ng/mL (2).1. IOM (Will[place] of Medicine). 2010. Dietary reference intakes for calcium and D. [place]: The National Academies Press.2. Candelaria MF, Janey ELIAS, Yolande GROSS, et al. Evaluation, treatment, and prevention of vitamin D deficiency: an Endocrine Society clinical practice guideline. JCEM. 2010; 96(7):1911-30. 8-Qrr-685650:06 Sputum Culture (56655) Comments: PATIENT NOT FASTINGPERFORMED BY: [employer] [facility] HealthAmie StreetNovant [facility] [id number] Information: [id number] Result 1 RRF (Normal) Comments: Routine respiratory rajwinder Lower Respiratory Culture Final report (Normal) 5-Wlq-665472:12 Rapid Flu (25409 x 2) Influenza A Ag neg a and b (Normal) 09-Bhx-003165:01 Urinalysis, Office (46777) UA - LEUKOCYTE ESTERASE Negative (Normal) UA - NITRITE Negative (Normal) URINE UROBILINGN YANCI TIMED Normal mg/dL (Normal) UA - PROTEIN Negative mg/dL (Normal) UA - PH 6.0 (Normal) Comments: 5.5 UA - BLOOD Negative (Normal) UA - SPECIFIC GRAVITY 1.025 (Normal) UA - KETONES Negative mg/dL (Normal) UA - BILIRUBIN Negative (Normal) UA - GLUCOSE Negative (Normal) 64-Cpp-509052:40 Lipase (54775) Comments: PATIENT NOT FASTINGPERFORMED BY: [facility] Cjjqlg6936 [place] WaterNov[facility] [id number] Lipase, Serum 113 U/L (Abnormal) Range: 0-59 55-Wqo-681577:40 Amylase (22517) Comments: PATIENT NOT FASTINGPERFORMED BY: [employer] [facility] Iyxxea3161 [address] WaterNovant Health [facility] Hospital [id number] Information: [id number] Amylase, Serum 104 U/L (Normal) Range: 31-124 4-Djh-713491:54 Sputum Culture (99471) Comments: PATIENT NOT FASTINGPERFORMED BY: MONA [facility] Udxcjn3552 Vila RoadDublin [place] [id number] Information: SRC: THROAT [id number] Result 1 RRF (Normal) Comments: Routine respiratory rajwinder Lower Respiratory Culture Final report (Normal) 5-Ocw-702917:55 Pathology Report Comments: PERFORMED BY: KWCYT [facility] [place] Cyto Sykol70863 [employer] [facility] [id number] BY: [facility] Dermatopathology Qlaqtef[address] [id number] Information: [id number] See MATER Comments: Material submitted: .PUNCH BIOPSY [...] IS NEGATIVE FOR FUNGAL FORMS.Pathologist provided ICD-9:692.9CPT .372620, 711445 04-Fcg-106252:41 Lipid Panel (68118) Comments: PATIENT WAS FASTINGPERFORMED BY: [facility]CoKindred Hospital at MorrisEecpal2061 [facility] [id number] LDL/HDL Ratio 1.0 {ratio_units} (Normal) Range: 0.0-3.2 [...] - 169 >19 years 100 - 199 92-Bjs-858543:41 Metabolic Panel, Comments: PATIENT WAS FASTINGPERFORMED BY: [facility] [id number] Information: [id number] Comprehensive (10940) ALT (SGPT) 13 [iU]/L (Normal) Range: 0-32 [...] Glucose, Serum 97 mg/dL (Normal) Range: 65-99 64-Xpu-155548:41 Vitamin B-12 (cyanocobalamin) Comments: PATIENT WAS FASTINGPERFORMED BY: [place] [id number] (57010) Vitamin B12 632 pg/mL (Normal) Range: 211-946 :41 CBC (Auto) (98520) Comments: PATIENT WAS FASTINGPERFORMED BY: [facility]6370 [facility] [id number] Platelets 270 {x10E3/uL} (Normal) Range: 150-379 RDW 13.9 % (Normal) Range: 12.3-15.4 MCHC 32.8 g/dL (Normal) Range: 31.5-35.7 MCH 29.5 pg (Normal) Range: 26.6-33.0 MCV 90 fL (Normal) Range: 79-97 Hematocrit 36.6 % (Normal) Range: 34.0-46.6 Hemoglobin 12.0 g/dL (Normal) Range: 11.1-15.9 RBC 4.07 {x10E6/uL} (Normal) Range: 3.77-5.28 WBC 8.5 {x10E3/uL} (Normal) Range: 3.4-10.8 :41 Ferritin (75725) Comments: PATIENT WAS FASTINGPERFORMED BY: LabAsc[facility]6370 [facility] [id number] Ferritin, Serum 28 ng/mL (Normal) Range: 15-150 :41 CALCIFIDIOL (42124) VIT D 25 Comments: PATIENT WAS FASTINGPERFORMED BY: LabAsc[facility] Hospital6370 [facility] [id number] Vitamin D, 25-Hydroxy 24.3 ng/mL (Abnormal) Range: 30.0-100.0 Comments: Vitamin D deficiency has been defined by the [place] ofMedicine and an Endocrine Society practice guideline as alevel of serum 25-OH vitamin D less than 20 ng/mL (1,2).The Endocrine Society went on to further define vitamin Dinsufficiency as a level between 21 and 29 ng/mL (2).1. IOM ([place]ard of Medicine). 2010. Dietary reference intakes for calcium and D. [place]: The National Academies Press.2. Candelaria MF, Janey ELIAS, Yolande GROSS et al. Evaluation, treatment, and prevention of vitamin D deficiency: an Endocrine Society clinical practice guideline. JCEM. 2010; 96(7):1911-30. :55 CBC-Complete Blood Cnt No Diff Comments: Test performed at:[place] [address] [place] [address] MPV 9.5 fL (Normal) Range: 6.2-12.0 PLT [...] Range: 4.4-11.0 :55 Ferritin Comments: Test performed at:[facility] Crpfesfu[address] [place] [address] [place] [address] FERRITIN 23 ng/mL (Normal) Range: 8-252 :55 Iron Comments: Test performed at:[facility] [address] [place] [address] IRON 75 ug/dL (Normal) Range: 50-170 :53 CBC W/Diff, Automated Comments: Test performed at:[facility] [address] [place] [address] Absolute Lymph 1.57 {X10_3/ul} (Normal) Range: 0.83-4.51 [...] 4.2-5.4 WBC 3.8 K/mm3 (Abnormal) Range: 4.4-11.0 52-Ukj-387140:53 Comprehensive Metabolic Profil Comments: Test performed at:[facility] Uriarrcini[address] [place] [address] GAP 5 (Normal) Range: 5-15 CO2 29.0 [...] 7-18 GLU 99 mg/dL (Normal) Range: 70-110 39-Wll-092816:53 Ferritin Comments: Test performed at:[facility] Hazboxnavy[address] [place] [address] FERRITIN 13 ng/mL (Normal) Range: 8-252 :53 Lipid Profile Comments: Test performed at:[facility] Iuvhuenhut[address] [place] [address] VLDL 19 mg/dL (Normal) Range: [...] > 2000 pg/mL (Abnormal) Comments: Test performed at:[facility] Qibyeqdsup[address] [place] [address] Range: 211-911 34-Act-226952:46 CBC W/Diff, Automated Comments: Test performed at:[facility] V[address]ofnrnth[address] [place] [address] Absolute Lymph 1.87 {X10_3/ul} (Normal) [...] 4.2-5.4 WBC 4.1 K/mm3 (Abnormal) Range: 4.4-11.0 07-Qka-019560:46 Comprehensive Metabolic Profil Comments: Test performed at:[facility] Cxyodmnbqk3584 [address] [place], [place] [address] GAP 4 (Abnormal) Range: 5-15 CO2 28.0 [...] 7-18 GLU 70 mg/dL (Normal) Range: 70-110 17-Kpz-932775:46 Vitamin D,25 Hydroxy Comments: Test performed at:[facility] Xggtvhpkzl6215 [place] [address] Vitamin D 25-OH 30.6 ng/mL (Normal) Comments: Vitamin D 25(OH) Status Range Deficiency <20 ng/mL (50nmol/L) Insuffciency 20 - 30 ng/mL (50 - 75 nmol/L) Sufficiency 30 - 100 ng/mL (75 - 250 nmol/L) Toxicity >100 ng/mL (>250 nmol/L) 63-Vnv-735578:04 CALCIFIDIOL (23453) VIT D Comments: PATIENT NOT FASTINGPERFORMED BY: [facility] Jymseg6072 [facility] [id number] Information: [id number] 25 Vitamin D, 25-Hydroxy 19.2 ng/mL (Abnormal) Range: 30.0-100.0 Comments: Vitamin D deficiency has been defined by the Willard ofMedicine and an Endocrine Society practice guideline as alevel of serum 25-OH vitamin D less than 20 ng/mL (1,2).The Endocrine Society went on to further define vitamin Dinsufficiency as a level between 21 and 29 ng/mL (2).1. IOM (Willard of Medicine). 2010. Dietary reference intakes for calcium and D. [place]: The National Academies Press.2. Candelaria MF, Janey ELIAS, Yolande GROSS, et al. Evaluation, treatment, and prevention of vitamin D deficiency: an Endocrine Society clinical practice guideline. JCEM. 2010; 96(7):1911-30. 58-Nqm-216423:04 Ferritin (36553) Comments: PATIENT NOT FASTINGPERFORMED BY: LabCoDissolveXilayt5190 CityIN [facility] [id number] Ferritin, Serum 34 ng/mL (Normal) Range: 15-150 21-Kxj-446346:05 METABOLIC PANEL, COMPREHENSIVE Comments: PATIENT NOT FASTINGPERFORMED BY: [employer] [facility] Jnjzvm8616 [facility] NetworkCarolina[facility] [id number] (18705) ALT (SGPT) 10 [iU]/L (Normal) Range: 0-32 [...] Glucose, Serum 86 mg/dL (Normal) Range: 65-99 70-Pab-966839:05 CBC WITH MANUAL DIFF Comments: PATIENT NOT FASTINGPERFORMED BY: MONA [facility] LabsKindred Hospital at MorrisEfkdoa8059 [facility] [id number] Information: [id number],2ND ORDER NO DRAW F EE (51093) Immature Grans (Abs) 0.0 {x10E3/uL} (Normal) Range: [...] 3.77-5.28 WBC 5.2 {x10E3/uL} (Normal) Range: 3.4-10.8 59-Aaw-351075:05 CALCIFIDIOL (75972) VIT D 25 Comments: PATIENT NOT FASTINGPERFORMED BY: [facility]6370 [facility] [id number] Vitamin D, 25-Hydroxy 19.6 ng/mL (Abnormal) Range: 30.0-100.0 Comments: Vitamin D deficiency has been defined by the Willard ofMedicine and an Endocrine Society practice guideline as alevel of serum 25-OH vitamin D less than 20 ng/mL (1,2).The Endocrine Society went on to further define vitamin Dinsufficiency as a level between 21 and 29 ng/mL (2).1. IOM (Willard of Medicine). 2010. Dietary reference intakes for [...] CHOL 168 mg/dL (Normal) Comments: <200 mg/dL Dhubsurol920-899 mg/dL Borderline>240 mg/dL High Risk 6-Lsj-303436:51 VITD 38.8 mg/mL (Normal) Comments: Vitamin D 25(OH) Status RangeDeficiency <20 ng/mL (50nmol/L)Insuffciency 20 - 30 ng/mL (50 - 75 nmol/L)Sufficiency 30 - 100 ng/mL (75 - 250 nmol/L)Toxicity >100 ng/mL (>250 nmol/L) 93-Xll-432738:07 Lipase (16447) Comments: PERFORMED BY: [facility] [id number] Lipase, Serum 67 U/L (Abnormal) Range: 0-59 47-Wnh-119976:07 Amylase (80207) Comments: PERFORMED BY: [facility] [id number] Amylase, Serum 92 U/L (Normal) Range: 31-124 58-Edz-024364:11 Urinalysis, Office (94524) UA - LEUKOCYTE ESTERASE Negative (Normal) UA - NITRITE Negative (Normal) URINE UROBILINGN YANCI TIMED Normal mg/dL (Normal) UA - PROTEIN Negative mg/dL (Normal) UA - PH 5 (Abnormal) Comments: 5.5 UA - BLOOD Negative (Normal) UA - SPECIFIC GRAVITY 1.015 (Normal) UA - KETONES 15 mg/dL (Abnormal) UA - BILIRUBIN Small (Normal) UA - GLUCOSE Negative (Normal) 93-Gax-900532:28 GRETTA CULTURE-OTHER (44959) Comments: PATIENT NOT FASTINGPERFORMED BY: [employer] LabCoEvoleen [facility] [id number] Information: SRC:THRT [id number] Result 1 RRF (Normal) Comments: Routine respiratory rajwinder Upper Respiratory Culture Final report (Normal) 66-Che-333061:32 Rapid Strep Test, Office (66490) Rapid Strep Test, Office Negative (Normal) 55-Uyn-918923:02 Iron Binding Capacity Comments: PATIENT NOT FASTINGPERFORMED BY: [facility]CoKindred Hospital at MorrisNevhkl3499 [facility] [id number] Information: [id number] (TIBC) (13556) Iron Saturation 6 % (Abnormal) Range: 15-55 Iron, Serum 32 ug/dL (Abnormal) Range: 35-155 UIBC 461 ug/dL (Abnormal) Range: 150-375 Iron Bind.Cap.(TIBC) 493 ug/dL (Abnormal) Range: 250-450 10-Mnb-098289:02 Ferritin (95634) Comments: PATIENT NOT FASTINGPERFORMED BY: [facility]CoKindred Hospital at MorrisJamrnh0678 [facility] [id number] Ferritin, Serum 7 ng/mL (Abnormal) Range: 15-150 :19 PREMA 80 U/L (Normal) Range: 25-115 0-Rdk-499258:19 B12 386 pg/mL (Normal) Range: 211-911 :19 [...] CHOL 181 mg/dL (Normal) Comments: <200 mg/dL Qqcsfbucf950-603 mg/dL Borderline>240 mg/dL High Risk :19 VITD [...] 7-18 GLU 79 mg/dL (Normal) Range: 70-110 86-Pup-858529:18 TS Ab SCREEN GEL NEGATIVE (Normal) SCREEN CELL I NEGATIVE (Normal) SCREEN CELL II NEGATIVE (Normal) SCREEN CELL III NEGATIVE (Normal) BLOOD TYPE GEL O POSITIVE (Normal) 45-Zot-761190:17 Metabolic Panel, Comments: PATIENT NOT FASTINGPERFORMED BY: MONA [facility] Uhxiad0185 [address] [place] [id number] Information: [id number] [facility] (78883) ALT (SGPT) 13 [iU]/L (Normal) Range: 0-32 [...] :41 PREMA 80 U/L (Normal) Range: 25-115 62-Gnv-281219:41 CBCD ABSOLUTE NEUT 3.9 3/uL (Normal) Range: [...] s (Normal) Range: 11.9-14.4 :41 VIT D,25 69062 20.3 ng/mL (Abnormal) Range: 30.0-100.0 Comments: Vitamin D deficiency has been defined by the Willard ofMedicine and an Endocrine Society practice guideline as alevel of serum 25-OH vitamin D less than 20 ng/mL (1,2).The Endocrine Society went on to further define vitamin Dinsufficiency as a level between 21 and 29 ng/mL (2).1. IOM (Willard of Medicine). 2010. Dietary reference intakes for calcium and D. [place]: The National Academies Press.2. Candelaria MF, Janey [place], Yolande GROSS, et al. Evaluation, treatment, and prevention of vitamin D deficiency: an Endocrine Society clinical practice guideline. JCEM. 2010; 96(7): 1911-30.Performed at: [address] [id number] Director: Yony San MD, Phone: [phone] at: [facility]Co[address] [id number] Director: Era Tinoco MD, Phone: [phone] VITD 1,25 86104 44.5 pg/mL (Normal) Range: 10.0-75.0 :09 PREMA [...] Please note:LIPASE revised reference range effective 09. 19-Imc-023333:05 LIPID Comments: COMMENTS: FAX RESULTS TO DR [...] 200-240 mg/dL Borderline >240 mg/dL High Risk 68-Lqz-495467:54 BILAT SCRN DIGITAL & CAD Radiology Report [...] 11/20/10 011 Sign by: Bartolome Patel MD 78-Vel-651003:54 DEXA BONE DENSITY STUDY (HP) Radiology Report See Note (Normal) Comments: CLINICAL:Female, 55 years old. The patient is postmenopausal. EXAMINATION:DUAL ENERGY X-RAY ABSORPTIOMETRY / DEXA. TECHNIQUE:Bone Mineral Density (BMD) measurements of lumbar spine and bila teralhipswer e obtained using a [employer] scanner.. COMPARISON:Comparison is made with prior study [...] on 11/20/1030 Sign by: Bartolome Patel MD 8-Gxw-371564:46 DESIRAE DIR SEMI-QL Comments: ORDERED CBC LUZ MARINA FEDRCOREY ORDERED CMP CBCD CRP ESR VITD HEPB SURF AB CCPHEPB IRINA AG HEPC DESIRAE RA HEPB CORE IGM UAC SCL70 ANTOINE ANTI JOANTICENT AB SSA SSB DNA UAPROTEIN C3 C4 TSH DESIRAE DIRECT 56 AU/mL (Normal) 1-Glb-727031:46 ANEX PANEL Comments: ORDERED CBC LUZ MARINA FEDRCOREY ORDERED CMP CBCD CRP ESR VITD HEPB SURF AB CCPHEPB RIINA AG HEPC DESIRAE RA HEPB CORE IGM UAC SCL70 ANTOINE ANTI JOANTICENT AB SSA SSB DNA UAPROTEIN C3 C4 TSH; appt 11/02/10 CHURCH MUSICIAN AB 14 AU/mL (Normal) ANTI-TORRES AB 7 AU/mL (Normal) 2-Gks-296685:46 ANTI JO1 Comments: ORDERED CBC LUZ MARINA FEDRCOREY ORDERED CMP CBCD CRP ESR VITD HEPB SURF AB CCPHEPB IRINA AG HEPC DESIRAE RA HEPB CORE IGM UAC SCL70 ANTOINE ANTI JOANTICENT AB SSA SSB DNA UAPROTEIN C3 C4 TSH ANTI LAMAR 7 AU/mL (Normal) 5-Spv-597143:46 ANTI SCL 70 Comments: ORDERED CBC LUZ MARINA FEDRCOREY ORDERED CMP CBCD CRP ESR VITD HEPB SURF AB CCPHEPB IRINA AG HEPC DESIRAE RA HEPB CORE IGM UAC SCL70 ANTOINE ANTI JOANTICENT AB SSA SSB DNA UAPROTEIN C3 C4 TSH ANTI-SCL 70 14 AU/mL (Normal) :46 ANTI-CCP 789392 < 1 {units} (Normal) Comments: ORDERED CBC [...] 0.6-1.0 GLU 91 mg/dL (Normal) Range: 70-110 6-Wiu-322638:46 ESR Comments: ORDERED CBC LUZ MARINA RODRIGUEZ ORDERED CMP CBCD CRP ESR VITD HEPB SURF AB CCPHEPB IRINA AG HEPC DESIRAE RA HEPB CORE IGM UAC SCL70 ANTOINE ANTI JOANTICENT AB SSA SSB DNA UAPROTEIN C3 C4 TSH SED RATE 5 mm/h (Normal) Range: 0-30 7-Ool-328567:46 FERRITIN 9 ng/mL (Normal) Comments: ORDERED CBC LUZ MARINA RODRIGUEZ ORDERED CMP CBCD CRP ESR VITD HEPB SURF AB CCPHEPB IRINA AG HEPC DESIRAE RA HEPB CORE IGM UAC SCL70 ANTOINE ANTI JOANTICENT AB SSA SSB DNA UAPROTEIN C3 C4 TSH Range: 8-252 :46 HB CORE [id number] SeeNote (Normal) Comments: ORDERED CBC LUZ MARINA FEDRCOREY ORDERED CMP CBCD CRP ESR VITD HEPB SURF AB CCPHEPB IRINA AG HEPC DESIRAE RA HEPB CORE IGM UAC SCL70 ANTOINE ANTI JOANTICENT AB SSA SSB DNA UAPROTEIN C3 C4 TSH Comments: Result: Negative Performed at: - [facility] [address] [id number] Director: Era Tinoco MD, Phone: [phone] at: - [facility] [address] [id number] Director: Yony San MD, Phone: [phone] HBsAg [id number] Comments: ORDERED CBC LUZ [...] of antibody present. :46 HEP C AB [id number] <0.1 (Normal) Comments: ORDERED CBC LUZ MARINA [...] DNA UAPROTEIN C3 C4 TSH Range: 0.358-3.74 [id number] VIT D,25 52580 9.3 ng/mL (Abnormal) Comments: ORDERED CBC LUZ MARINA MICHAEL ORDERED CMP CBCD CRP ESR VITD HEPB SURF AB CCPHEPB IRINA AG HEPC DESIRAE RA HEPB CORE IGM UAC SCL70 ANTOINE ANTI JOANTICENT AB SSA SSB DNA UAPROTEIN C3 C4 TSH Range: 32.0-100.0 Comments: Recent studies consider the lower limit of 32.0 ng/mL to jayleen threshold for optimal health.Ortiz SANCHEZ. J Nutr. 2004;135(2):317-22. 85-Wkm-971173:10 CBC Comments: COMMENTS: FAX RESULTS TO DR. [...] DRAWRESULTS FAXED 07/17/10 VLADIMIR SALAMANCA. Range: 8-252 38-Ule-371500:10 IRON 125 ug/dL (Normal) Comments: COMMENTS: FAX RESULTS TO DR. CECI FARIAS DRAWRESULTS FAXED 07/17/10 VLADIMIR SALAMANCA. Range: 50-170 88-Ozv-530917:20 CBC With Differential/Platelet Comments: PERFORMED BY: [facility] Jnasvt0671 [facility] [id number] Baso (Absolute) 0.0 {x10E3/uL} (Normal) Range: 0.0-0.2 [...] 11.7-15.0 WBC 5.3 {x10E3/uL} (Normal) Range: 4.0-10.5 99-Eis-712587:20 Comp. Metabolic Panel (14) Comments: PERFORMED BY: [facility] [id number] ALT (SGPT) 18 [iU]/L (Normal) Range: 0-40 [...] Serum 14 ng/mL (Normal) Comments: PERFORMED BY: [employer]6[facility] [id number] 14:20 Range: 13-150 99-Tyu-836704:20 Iron and TIBC Comments: PERFORMED BY: [employer] [facility] [id number] Iron Saturation 23 % (Normal) Range: 15-55 Iron, Serum 106 ug/dL (Normal) Range: 35-155 UIBC 361 ug/dL (Normal) Range: 150-375 Iron Bind.Cap.(TIBC) 467 ug/dL Range: 250-450 (Abnormal) 46-Ztp-987538 TSH 1.760 {uIU/mL} Comments: [facility]FORMED BY: [facility] Nnd[facility] [place] [id number] :20 (Normal) Range: 0.450-4.500 C DIF TOXIN/AG See Note (Normal) Comments: PT COLLECTED SPECIMEN 12/30 @2300 :45 Comments: C. DIFF ANTIGENS NEGATIVE :45 CUL STOOL/SHIG Comments: PT COLLECTED SPECIMEN 12/30 @2300 CULTURE, STOOL See Note (Normal) Comments: COPY OF REPORT SENT TO INFECTION CONTROL 01/03/10 [facility]. No Salmonella, Shigella or Yersinia isolated.No [...] Crytosporidium parvum,Cyclospora, or Microsporidia.__ TESTING PERFORMED AT [facility]. ORIGINAL REPORT ONFILE IN LAB CONTAINS [...] Comments: COMMENTS: IV THERAPY DRAWING Range: 25-115 58-Qgs-733341:10 LIPASE 199 U/L (Normal) Comments: COMMENTS: IV THERAPY DRAWING Range: 70-290 Comments: Please note:LIPASE revised reference range effective 09. 87-Rsy-856769:10 RENAL Comments: COMMENTS: IV THERAPY DRAWING CO2 [...] (Normal) GLU 102 mg/dL (Normal) Range: 70-110 21-Rig-972079:37 OCCULT BLOOD FECES SCREEN (52507) OCCULT BLOOD FECES SCREEN negative (Normal) 07-Dly-485323:03 CBCD,SMEAR DIFF PLT EST SeeNote (Normal) Comments: [...] 6.4-8.2 GLU 94 mg/dL (Normal) Range: 70-110 43-Wgk-222212:03 FERRITIN 12 ng/mL (Normal) Range: 8-252 :03 IRON 128 ug/dL (Normal) Range: 50-170 21-Twm-655856:03 LIPID LDL 86 mg/dL (Normal) Range: 0-130 VLDL 18 mg/dL (Normal) Range: 5-40 HDL 79 mg/dL (Normal) Comments: Reference RangeHDL <40 mg/dL Low HDL CholesterolHDL >or= 60 mg/dL High HDL Cholesterol CHOL 183 mg/dL (Normal) Comments: <200 mg/dL Bjisczjqm166-214 mg/dL Borderline>240 mg/dL High Risk TRIG 88 mg/dL (Normal) Comments: Serum Triglycerides Reference IntervalNormal <150 mg/dLBorderline high 150 - 199 mg/dLHigh 200 - 499 mg/ dLVery High > or = 500 mg/dL 73-Hfb-377586:03 VITAMIN B12 342 pg/mL (Normal) Range: 254-1320 10-Apr-20090:00 FLU A+B DIRECT See Note (Normal) Comments: Negative test results should be confirmed by culture. Order Rapid Viral Culture for Influenzae A+B ([id number]) if clinically indicated. INFLUENZA ANTIGEN,DIRECT Presumptive NEGATIVE for Influenza A/B Antigen (See Note) 93-Yxq-427575:43 CHEST, PA AND LATERAL Radiology Report See Note (Normal) Comments: Exam Number: [id number] CLINICAL DATAInterstitial lung disease, cough. CHEST PA [...] pneumonia. Possible bronchitis. Reported By: FLORINDA CAMPOS 95-Hfb-302386:45 L/S SPINE,MIN 4 VIEWS Radiology Report See Note (Normal) Comments: Exam Number: [id number] CLINICAL PROBLEMLow back pain post fall. LUMBAR [...] and spondylosis. Reported By: AROLDO TILLMAN M.D. 79-Ntn-871416:44 KNEE,4 OR MORE VIEWS Radiology Report See Note (Normal) Comments: Exam Number: [id number] CLINICAL PROBLEMPain both knees post fall. FOUR [...] patellofemoral compartments. Reported By: AROLDO TILLMAN M.D. 50-Cfk-288513:44 KNEE,4 OR MORE VIEWS Radiology Report See Note (Normal) Comments: Exam Number: [id number] CLINICAL PROBLEMLeft knee pain status post fall. [...] Order Rapid Viral Culture for Influenzae A+B ([id number]) if clinically indicated. INFLUENZA ANTIGEN,DIRECT Presumptive NEGATIVE for Influenza A/B Antigen (See Note) 12-Sep-2008 PREMA 66 U/L (Normal) Range: 25-115 12:11 50-Ppf-143799:11 CBCD BASO% 0.2 % (Normal) Range: 0-1 [...] 4.2-5.4 WBC 4.2 K/mm3 (Abnormal) Range: 4.4-11.0 80-Mdh-575643:11 COMP METABOLIC A/G 1.2 {RATIO} (Normal) Range: [...] :11 MG 1.9 mg/dL (Normal) Range: 1.5-2.2 35-Kho-933918:00 CBCD BASO% 0.3 % (Normal) Range: 0-1 [...] T PROT 6.7 g/dL (Normal) Range: 6.4-8.2 64-Unm-292649:00 METHYLM 911901 330 nmol/L (Normal) Range: 73-376 Comments: The reference range for methylmalonic acid has been set at+3sd above the mean for healthy blood bank donors. In theclinical assessment of patients with megaloblastic anemiasa cutoff of +3sd provides gre ater specificity in thediagnosis of the vitamin deficiency states, despite thesacrifice of some sensitivity.Performed At: [address] [id number] 3-Els-484404:55 Lower Respiratory Culture Comments: Clinical Information: SRC:SP PERFORMED BY: [facility] [id number] Lower Respiratory Culture Final report (Normal) Result 1 RRF (Normal) Comments: Routine respiratory rajwinder 10-Qmh-78006:3 PREMA 62 U/L (Normal) Range: 25-115 6 :36 DESIRAE-D 674669 DESIRAE-DIRECT 23 AU/mL (Normal) Range: 0-99 Comments: [...] {IU/mL} (Normal) Range: 0.0-13.9 Comments: Performed At: [address] [id number] :36 TSH 1.76 {uIU/mL} (Normal) Range: 0.34-4.82 :29 HgA1C , Office (42561) HgA1C , Office 5.5 % (Normal) Range: 4.6 - 7.1 1-Tdj-409177:29 Blood Glucose , Office (23581) Blood Glucose , Office 108 (Normal) :51 CHEST, PA AND LATERAL Radiology Report See Note (Normal) Comments: Exam Number: [id number] PA AND LATERAL CHEST HISTORY Being done [...] acute infiltrate. Reported By: JERARDO BEAULIEU M.D. 1-Ghg-862505:57 Rapid Flu (16995 x 2) INFLUENZA IMMUNOASSY DIRECT OPTICAL OBSERV negative (Normal) Comments: aw 36-Ifp-584927:57 LIPID CHOL 186 mg/dL (Normal) Comments: <200 [...] mg/dL VLDL 43 mg/dL (Abnormal) Range: 5-40 07-Krz-160688:57 VITAMIN B12 370 pg/mL (Normal) Range: 211-911 :57 VITD 1,25 61788 69.6 (Normal) Comments: Performed At: [address] [id number] 68-Ucy-054480:47 CHEST, PA AND LATERAL Radiology Report See Note (Normal) Comments: Exam Number: [id number] PA AND LATERAL CHEST HISTORY Being done [...] Culture Comments: Clinical Information: SRC:TH PERFORMED BY: [facility] [id number] Result 1 RRF (Normal) Comments: Routine respiratory rajwinder Upper Respiratory Culture Final report (Normal) 4-Zkf-257257:39 CHEST WITHOUT CONTRAST Radiology Report See Note (Normal) Comments: Exam Number: [id number] CT SCAN OF CHEST HISTORYNeoplasm of uncertain [...] PREMA 73 U/L (Normal) Range: 25-115 :01 45-Pec-745766:01 CBCD BASO% 0.3 % (Normal) Range: 0-1 [...] 11.6-14.6 WBC 4.7 K/mm3 (Normal) Range: 4.4-11.0 60-Kqn-255983:01 COMP METABOLIC A/G 1.1 {RATIO} (Normal) Range: [...] mg/dL VLDL 15 mg/dL (Normal) Range: 5-40 71-Otm-007312:40 BC No growth in 5 days. Comments: COMMENTS: ROOM 12 (Normal) 02-Fdn-668887:20 COMPLETE UA Comments: COMMENTS: ROOM 12HOLD IN [...] WBC 0 SEEN {/hpf} (Normal) Range: 0-5 98-Zzv-680323:10 BMP Comments: COMMENTS: ROOM 12 BUN 8 [...] 3.5-5.1 NA 132 mmol/L (Abnormal) Range: 136-145 37-Zcb-373265:10 CBCD Comments: COMMENTS: ROOM 12 BASO% 0.2 [...] (Normal) WBC 10.6 K/mm3 (Normal) Range: 4.4-11.0 47-Ezv-486644:10 LIPASE 212 U/L (Normal) Comments: COMMENTS: ROOM 12 Range: 114-286 07-Ipl-665463:10 LIVER Comments: COMMENTS: ROOM 12 ALB 3.4 [...] 29 [iU]/L (Abnormal) Range: 30-65 :07 DESIRAE-D 726115 DESIRAE-DIRECT 24 U/mL (Normal) Range: 0-99 Comments: Negative <100 Equivocal 100 - 120 Positive >120Performed At: [facility]6[address] [place], [place] [id number] At: [address] [id number] :07 See Note (Normal) Comments: CHECK BLOOD [...] 5.8 K/mm3 (Normal) Range: 4.4-11.0 :07 HISTOPL 862334 SeeNote (Normal) Comments: Result: Negative : RA LATEX 6502 8.6 {IU/mL} (Normal) Range: 0.0-13.9 86-Jzs-580407:24 CHEST, PA AND LATERAL Radiology Report See Note (Normal) Comments: Exam Number: [id number] CHEST, PA AND LATERAL HISTORYFever and cough. COMPARISONNone. FINDINGSThere is an indwelling Rqlg-D-Uxsyhaaj on the right side particularlyin the SVC. The heart, aorta, and media stinum are normal. Lungs areclear. There is no evidence of consolidation, effusion, congestion,or nodules. There are clips in the region of the esophageal hiatus. IMPRESSIONClear lungs. Reported By: AN YOUNG M.D. 92-Ekd-079870:0 BC No growth in 5 days. 0 (Normal) :5 PREMA 71 U/L (Normal) Range: 25-115 0 46-Dqa-714838:5 BC No growth in 5 days. 0 [...] mm/h (Normal) Range: 0-30 :02 Urinalysis, Office (15938) Comments: ABn signed CH UA - BILIRUBIN [...] pg/mL (Abnormal) Range: 211-911 Comments: Performed At: [address] [id number] 2-Cou-843193:00 CULTURE, THROAT See Note (Normal) Comments: Normal throat rajwinder isolated. No beta-hemolyticstreptococcus isolated. 4-Mey-106513:52 Urinalysis, Office (09145) UA - BILIRUBIN Negative (Normal) UA - [...] and of unspecified site Planned Observations AMYLASE (17089)Indication: Chronic pancreatitis On: 65-Iyr-946405:48 Request LIPASE (45925)Indication: Chronic pancreatitis On: 58-Ert-669735:48 Request METABOLIC PANEL, COMPREHENSIVE (56862)Indication: Chronic pancreatitis On: 85-Ihg-831345:47 Request LIPOPROTEIN, BLD, BY NMR (89084)Indication: Hyperlipidemia On: 02-Jwt-287728:47 Request Ferritin (14467)Indication: Iron deficiency anemia due to dietary causes On: 42-Saq-938567:51 Request URINE GRETTA CULTURE-IDENTIFICATN (82409)Indication: Urgency incontinence On: 66-Qtj-365591:58 Request LIPASE (28843)Indication: Chronic pancreatitis On: :51 Request AMYLASE (43443)Indication: Chronic pancreatitis On: :50 Request URINALYSIS (67004)Indication: Chronic pancreatitis On: :50 Request CBC WITH MANUAL DIFF (83895)Indication: Chronic pancreatitis On: :50 Request Metabolic Panel, Comprehensive (64423)Indication: Chronic pancreatitis On: :50 Request PT (PROTHROMBIN TIME) (29935)Indication: PFO (patent foramen ovale) On: 11-Mcd-403413:36 Request Vitamin B-12 (cyanocobalamin) (37942)Indication: S/P gastric bypass On: :21 Request Ferritin (96339)Indication: Iron deficiency anemia due to dietary causes On: : Request CBC, Platelets & Auto Diff (68271)Indication: Chronic pancreatitis On: :21 Request Metabolic Panel, Comprehensive (12735)Indication: Chronic pancreatitis On: 5-Lhj-264702:21 Request CALCIFIDIOL (00131) VIT D 25Indication: Vitamin D deficiency, unspecified On: 77-Abw-16110:55 Request Comments: re check in 8 weeks Sed Rate Erythrocyte (25017)Indication: Fever On: 17-Izb-309143:39 Request URINALYSIS (49623)Indication: Fever On: :33 Request URINE GRETTA CULTURE-IDENTIFICATN (58768)Indication: Fever On: 09-Vry-693347:33 Request CALCIFIDIOL (24101) VIT D 25Indication: Vitamin D deficiency, unspecified On: :32 Request CBC, Platelets & Auto Diff (89133)Indication: Iron deficiency anemia due to dietary causes On: :32 Request Ferritin (80976)Indication: Iron deficiency anemia due to dietary causes On: 84-Utt-345301:32 Request GRETTA CULTURE-BLOOD (08328)Indication: Fever On: 06-Sjs-096130:30 Request Comments: ONE FROM PORT AND ONE PERIPHERAL CALCIFIDIOL (05626) VIT D 25Indication: Vitamin D deficiency, unspecified On: 66-Bpy-640163:24 Request FERRITIN (69675)Indication: Iron deficiency anemia due to dietary causes On: 97-Kou-686991:22 Request EBV ANTIBODY VCA/EA 08010 (14530)Indication: Fatigue On: 26-Brp-388827:31 Request Comments: please do VCA IGM Ferritin (56912)Indication: Iron deficiency anemia due to dietary causes On: 47-Rtn-251245:00 Request CALCIFIDIOL (91574) VIT D 25Indication: Vitamin D deficiency, unspecified On: 24-Lxn-037290:00 Request EBV Panel (86511)Indication: Pharyngitis, acute On: 01-Cvp-503620:58 Request Influenza A&B Viral Culture (48706)Indication: Fever On: 6-Klc-756691:34 Request GRETTA CULTURE-OTHER (83617)Indication: Fever On: 1-Byu-328614:33 Request Rapid Strep Test, Office (46375)Indication: Fever On: 7-Xvd-967434:18 Request Troponin I (14199)Indication: Chest pain at rest On: 87-Sbg-329090:43 Request Comments: pls add to labs already done MYOGLOBIN (35201)Indication: Chest pain at rest On: 88-Hwr-236227:25 Request CPK MB FRACTION (15220)Indication: Chest pain at rest On: 80-Oka-743017:25 Request Sed Rate Erythrocyte (03999)Indication: Chest pain at rest On: :25 Request CBC WITH MANUAL DIFF (67626)Indication: Chest pain at rest On: 41-Ruv-577065:25 Request CALCIFEDIOL (28831)Indication: OTHER AND UNSPECIFIED POSTSURGICAL NONABSORPTION On: 2-Ifb-379458:12 Request PARATHORMONE (83158)Indication: OTHER AND UNSPECIFIED POSTSURGICAL NONABSORPTION On: 7-Hts-432724:12 Request Magnesium (55061)Indication: OTHER AND UNSPECIFIED POSTSURGICAL NONABSORPTION On: 5-Lsb-663730:12 Request Phosphorus (16181)Indication: OTHER AND UNSPECIFIED POSTSURGICAL NONABSORPTION On: 8-Ccd-688911:12 Request IRON (33259)Indication: OTHER AND UNSPECIFIED POSTSURGICAL NONABSORPTION On: :12 Request FERRITIN (07093)Indication: OTHER AND UNSPECIFIED POSTSURGICAL NONABSORPTION On: :12 Request ZINC, BLOOD (25445)Indication: OTHER AND UNSPECIFIED POSTSURGICAL NONABSORPTION On: :12 Request VITAMIN A (81474)Indication: OTHER AND UNSPECIFIED POSTSURGICAL NONABSORPTION On: :12 Request TSH (73122)Indication: OTHER AND UNSPECIFIED POSTSURGICAL NONABSORPTION On: : Request MAGNESIUM (71711)Indication: OTHER AND UNSPECIFIED POSTSURGICAL NONABSORPTION On: : Request Folic Acid Serum (68506)Indication: OTHER AND UNSPECIFIED POSTSURGICAL NONABSORPTION On: : Request CHROMIUM (22884)Indication: OTHER AND UNSPECIFIED POSTSURGICAL NONABSORPTION On: : Request ASSAY, HOMOCYSTINE (22135)Indication: OTHER AND UNSPECIFIED POSTSURGICAL NONABSORPTION On: :12 Request Metabolic Panel, Basic (54302)Indication: Abdominal pain On: 62-Lpt-093503:11 Request Comments: do on this tuesday OSMOLALITY URINE (08265)Indication: Abdominal pain On: :11 Request Comments: today in ambulatory OSMOLALITY BLOOD (13780)Indication: Abdominal pain On: 96-Mzg-516790:11 Request Comments: today in ambulatory Lipase (25456)Indication: Abdominal pain On: 26-Yhh-267292:11 Request Comments: today in ambulatory Amylase (29222)Indication: Abdominal pain On: 26-Vgt-740093:11 Request Comments: today in ambulatory CBC, Platelets & Auto Diff (54189)Indication: Abdominal pain On: 19-Djk-758855:11 Request Comments: today in ambulatory Metabolic Panel, Comprehensive (83626)Indication: Abdominal pain On: 72-Igf-766017:10 Request Comments: today in ambulatory AMYLASE (61856)Indication: Abdominal pain On: 3-Ewo-518324:12 Request LIPASE (19971)Indication: Abdominal pain On: 8-Xdd-999840:12 Request Ferritin (23589)Indication: Iron deficiency anemia due to dietary causes On: 85-Bbd-200532:20 Request Comments: in six months (approximately) Vitamin B-12 (cyanocobalamin) (87810)Indication: Other vitamin B12 deficiency anemia On: :19 Request Comments: in six months (approximately) Lipid Panel (71262)Indication: High blood triglycerides On: :19 Request Comments: in six months (approximately) Metabolic Panel, Comprehensive (86177)Indication: Chronic pancreatitis On: :19 Request Comments: in six months (approximately) Vitamin B-12 (cyanocobalamin) (90361)Indication: Other vitamin B12 deficiency anemia On: 18-Doo-494097:27 Request METABOLIC PANEL, COMPREHENSIVE (83258)Indication: High blood triglycerides On: :19 Request LIPID PANEL (35347)Indication: High blood triglycerides On: :19 Request CBC, Platelets & Auto Diff (19562)Indication: Iron deficiency anemia due to dietary causes On: 22-Din-476854:15 Request Ferritin (05104)Indication: Iron deficiency anemia due to dietary causes On: 81-Kgq-383882:15 Request Iron (12386)Indication: Iron deficiency anemia due to dietary causes On: 09-Szw-636125:29 Request Comments: recheck in 4 weeks pt needs to be fasting Iron Binding Capacity (TIBC) (73842)Indication: Iron deficiency anemia due to dietary causes On: 56-Cgi-917506:29 Request Comments: recheck in 4 weeks pt needs to be fasting Ferritin (01643)Indication: Iron deficiency anemia due to dietary causes On: 67-Cgk-534714:28 Request Comments: recheck in 4 weeks pt needs to be fasting METABOLIC PANEL, COMPREHENSIVE (34385)Indication: High blood triglycerides On: :33 Request LIPID PANEL (85184)Indication: High blood triglycerides On: :33 Request CBC (Auto) (84893)Indication: Iron deficiency anemia due to dietary causes On: :33 Request Ferritin (52858)Indication: Iron deficiency anemia due to dietary causes On: 59-Nhx-461012:33 Request Vitamin B-12 (cyanocobalamin) (81186)Indication: Other vitamin B12 deficiency anemia On: 50-Ieu-718900:32 Request CALCIFIDIOL (23941) VIT D 25Indication: Vitamin D deficiency, unspecified On: 29-Uts-482813:32 Request CULTURE, SPUTUM (04354)Indication: Cough On: 8-Lqb-666155:36 Request Iron (37140)Indication: Iron deficiency anemia due to dietary causes On: 47-Oud-364915:53 Request CALCIFIDIOL (85130) VIT D 25Indication: Vitamin D deficiency, unspecified On: 70-Jky-359153:02 Request CBC (Auto) (41553)Indication: Iron deficiency anemia due to dietary causes On: 5-Txg-146948:49 Request Metabolic Panel, Comprehensive (08950)Indication: Chronic pancreatitis On: :49 Request Lipid Panel (91121)Indication: High blood triglycerides On: :49 Request Ferritin (97038)Indication: Iron deficiency anemia due to dietary causes On: 8-Lxq-447829:48 Request CALCIFEDIOL (91412)Indication: Vitamin D deficiency, unspecified On: :48 Request Vitamin B-12 (cyanocobalamin) (68344)Indication: Other vitamin B12 deficiency anemia On: 5-Ocr-804769:47 Request Lipase (88910)Indication: Chronic pancreatitis On: :47 Request Amylase (21768)Indication: Chronic pancreatitis On: :47 Request D-Dimer (28590)Indication: Anemia On: 50-Xno-762334:28 Request Comments: stat Metabolic Panel, Comprehensive (66572)Indication: Anemia On: :16 Request TYPE & SCREEN GEL (75043)Indication: Anemia On: :16 Request CBC with manual diff (66763)Indication: Anemia On: :15 Request Lipase (82588)Indication: Chronic pancreatitis On: :30 Request Amylase (05329)Indication: Chronic pancreatitis On: 21-Bvp-171478:30 Request Ferritin (34119)Indication: Iron deficiency anemia due to dietary causes On: 88-Klu-842579:28 Request LIPASE (05451)Indication: Chronic pancreatitis On: :21 Request AMYLASE (51937)Indication: Chronic pancreatitis On: 0-Xuh-303255:21 Request Lipase (86513)Indication: Chronic pancreatitis On: : Request Amylase (70105)Indication: Chronic pancreatitis On: :12 Request MICROALBUMIN: CREATININE RATIO (56048) AND (58710)Indication: Chronic pancreatitis On: : Request METABOLIC PANEL, COMPREHENSIVE (61229)Indication: Chronic pancreatitis On: : Request LIPID PANEL (14688)Indication: High blood triglycerides On: : Request CBC WITH MANUAL DIFF (11031)Indication: Chronic pancreatitis On: : Request Metabolic Panel, Comprehensive (01584)Indication: Chronic pancreatitis On: :46 Request Lipase (51335)Indication: Chronic pancreatitis On: :46 Request Amylase (94623)Indication: Chronic pancreatitis On: :46 Request CALCIFIDIOL (26221) VIT D 25Indication: Vitamin D deficiency, unspecified On: 8-Rvp-428933:43 Request Ferritin (13706)Indication: Iron deficiency anemia due to dietary causes On: :43 Request CBC (Auto) (05688)Indication: Iron deficiency anemia due to dietary causes On: :43 Request PT (Prothrobim Time) (27308)Indication: AFTERCARE, LONG-TERM USE, ANTICOAGULANTS On: :28 Request Lipase (87772)Indication: Chronic pancreatitis On: : Request Amylase (68728)Indication: Chronic pancreatitis On: : Request Metabolic Panel, Comprehensive (10508)Indication: Chronic pancreatitis On: : Request CBC (Auto) (15528)Indication: Leukopenia On: : Request Lipid Panel (49275)Indication: High blood triglycerides On: :25 Request Iron (07016)Indication: Iron deficiency anemia due to dietary causes On: :23 Request Ferritin (10007)Indication: Iron deficiency anemia due to dietary causes On: :23 Request Vitamin B-12 (cyanocobalamin) (75226)Indication: Other vitamin B12 deficiency anemia On: :23 Request CALCIFIDIOL (84260) VIT D 25Indication: Vitamin D deficiency, unspecified On: :23 Request Lipase (16112)Indication: Chronic pancreatitis On: : Request Amylase (84677)Indication: Chronic pancreatitis On: :21 Request Comments: pls add to labs already drawn Metabolic Panel, Comprehensive (58550)Indication: Chronic pancreatitis On: : Request Ferritin (25597)Indication: Iron deficiency anemia due to dietary causes On: : Request CBC (Auto) (56630)Indication: Chronic pancreatitis On: : Request LIPID PANEL (20040)Indication: High blood triglycerides On: 0-Lak-914243:15 Request Iron Binding Capacity (TIBC) (29554)Indication: Anemia On: :53 Request Iron (02707)Indication: Anemia On: :53 Request Ferritin (81499)Indication: Anemia On: :53 Request CBC (Auto) (16520)Indication: Anemia On: :53 Request Metabolic Panel, Comprehensive (03733)Indication: Chronic pancreatitis On: :53 Request OVA & PARASITE DIR SMEAR (16444)Indication: Diarrhea On: :37 Request LEUKOCYTE COUNT, FECAL (86439)Indication: Diarrhea On: :37 Request C.Difficile, Stool (37234)Indication: Diarrhea On: :37 Request GRETTA CULTURE-STOOL (83003)Indication: Diarrhea On: :37 Request Vitamin B-12 (cyanocobalamin) (61338)Indication: Other vitamin B12 deficiency anemia On: :05 Request Iron (19476)Indication: Anemia On: 49-Rir-790161:05 Request Ferritin (75761)Indication: Anemia On: :05 Request METABOLIC PANEL, COMPREHENSIVE (78178)Indication: High blood triglycerides On: :05 Request CBC WITH MANUAL DIFF (75534)Indication: Anemia On: :05 Request LIPID PANEL (40532)Indication: High blood triglycerides On: 40-Fqc-696125:04 Request nasal influenza swab (75324) Y7Aulmwtvics: Unspecified Diagnosis On: 8-Ujb-169414:29 Request Rapid Flu (11193 x 2)Indication: Fever On: 8-Hqw-449311:44 Request Lipid Panel (27669)Indication: High blood triglycerides On: 76-Pou-817857:53 Request CBC (Auto) (61349)Indication: Chronic pancreatitis On: :51 Request Metabolic Panel, Comprehensive (72723)Indication: Chronic pancreatitis On: :51 Request Ferritin (95145)Indication: Anemia On: :51 Request Iron (25353)Indication: Anemia On: :51 Request Vitamin B-12 (cyanocobalamin) (12016)Indication: Other vitamin B12 deficiency anemia On: 76-Khp-346857:51 Request Lipid Panel (00847)Indication: Malabsorption syndrome On: :39 Request Sed Rate Erythrocyte (87506)Indication: Chronic pancreatitis On: :35 Request CBC, Platelets & Auto Diff (23157)Indication: Chronic pancreatitis On: :35 Request Magnesium (80138)Indication: Chronic pancreatitis On: :35 Request Lipase (71629)Indication: Chronic pancreatitis On: :35 Request Amylase (08438)Indication: Chronic pancreatitis On: :35 Request Metabolic Panel, Comprehensive (18784)Indication: Chronic pancreatitis On: :35 Request CBC (Auto) (46501)Indication: Abdominal pain, acute, generalized On: :29 Request Metabolic Panel, Comprehensive (80893)Indication: Abdominal pain, acute, generalized On: 12-Vwe-273806:29 Request Methylmalonic acid, serum 25077Foacptgfbk: Other vitamin B12 deficiency anemia On: 07-Mnd-493489:29 Request CULTURE, SPUTUM (48283)Indication: Cough On: 6-Mqh-928719:42 Request Lipase (07826)Indication: Acute pancreatitis On: 5-Xqs-106920:59 Request Amylase (82615)Indication: Acute pancreatitis On: 8-Pzq-323101:59 Request DESIRAE (ANTINUCLEAR ANTIBODY) (25892)Indication: Pain in unspecified joint On: 9-Kee-301461:48 Request C-REACTIVE PROTEIN (48831)Indication: Pain in unspecified joint On: 9-Pze-276628:48 Request CBC WITH MANUAL DIFF (86109)Indication: Pain in unspecified joint On: 6-Yiv-013967:48 Request METABOLIC PANEL, COMPREHENSIVE ([id number])Indication: Pain in unspecified joint On: 4-Jrl-466625:48 Request RHEUMATOID FACTOR-QUANT (84643)Indication: Pain in unspecified joint On: 5-Vca-456131:48 Request SED RATE ERYTHROCYTE (02675)Indication: Pain in unspecified joint On: 5-Gho-863187:48 Request TSH ([id number])Indication: Pain in unspecified joint On: 5-Cwg-000451:48 Request GRETTA CULTURE-OTHER ([id number])Indication: Pharyngitis, acute On: 67-Ojl-696159:12 Request Rapid Strep Test, Office ([id number])Indication: Pharyngitis, acute On: 84-Ilu-526477:12 Request Comments: negative VITAMIN D, 1, 25-DIHYDROXY (84120)Indication: Chronic pancreatitis On: 84-Oxo-501915:46 Request Vitamin B-12 (cyanocobalamin) (16927)Indication: Other vitamin B12 deficiency anemia On: 55-Ruk-220150:43 Request Lipase (46524)Indication: Chronic pancreatitis On: 04-Jww-576706:35 Request Amylase (73947)Indication: Chronic pancreatitis On: 94-Qpx-533569:34 Request CBC (Auto) ([id number])Indication: Chronic pancreatitis On: 32-Myr-217164:34 Request Metabolic Panel, Comprehensive (96333)Indication: Chronic pancreatitis On: 58-Csn-932262:34 Request Lipid Panel ([id number])Indication: Chronic pancreatitis On: 40-Jxi-388271:34 Request Comments: standing order every 3 months Metabolic Panel, Comprehensive ([id number])Indication: Edema On: :13 Request CBC, Platelets & Auto Diff (65568)Indication: Edema On: :13 Request PTT (Activated Partial Thromboplastin Time) (92097)Indication: Edema On: :12 Request PT (Prothrobim Time) (96083)Indication: Edema On: 21-Cmd-602926:12 Request Lipase (18099)Indication: pancreatitis On: :32 Request Amylase (18108)Indication: pancreatitis On: :32 Request CBC (Auto) ([id number])Indication: pancreatitis On: :32 Request Metabolic Panel, Comprehensive ([id number])Indication: pancreatitis On: :32 Request Metabolic Panel, Comprehensive ([id number])Indication: Fever On: 47-Djj-235953:57 Request GRETTA CULTURE-BLOOD (91941)Indication: Fever On: :56 Request Comments: one from peripheral GRETTA CULTURE-BLOOD (11650)Indication: Fever On: 35-Ezy-397116:56 Request Comments: one from port Sed Rate Erythrocyte (09657)Indication: Fever On: 77-Wfl-351274:56 Request CBC, Platelets & Auto Diff ([id number])Indication: Fever On: :56 Request Urinalysis, Office (14979)Indication: Fever On: 97-Zkh-086019:56 Request GRETTA CULTURE-OTHER (26387)Indication: Fever On: :53 Request Rapid Strep Test, Office ([id number])Indication: Fever On: 3-Lsd-414780:52 Request CBC, Platelets & Auto Diff (99404)Indication: Chronic pancreatitis On: 0-Hsi-672744:46 Request Lipase (26684)Indication: Chronic pancreatitis On: :46 Request Amylase (77055)Indication: Chronic pancreatitis On: 8-Idy-358932:46 Request Metabolic Panel, Comprehensive ([id number])Indication: Chronic pancreatitis On: 7-Poc-291651:46 Request FERRITIN (57489)Indication: Anemia On: 7-Xap-382043:22 Request VITAMIN B-12 (CYANOCOBALAMIN) (67717)Indication: Other vitamin B12 deficiency anemia On: 7-Kkb-109269:22 Request LIPASE (01733)Indication: Acute pancreatitis On: 38-Upb-874678:22 Request ALBUMIN SERUM ([id number])Indication: Acute pancreatitis On: :22 Request CBC (AUTO) ([id number])Indication: Acute pancreatitis On: :21 Request METABOLIC PANEL, BASIC (13259)Indication: Abnormal blood chemistry On: :21 Request Planned Encounters Medical; [facility] 4 Month Fu - On: 01-Sep-2018 13:30 [facility] Sarah Pizano MD, MD, Dana M Planned Procedures Flu Vaccine (Quadrivalent) On: 31-Mar-2018 Intent 92862Tj: COMFORT Gallegos Comments: Lot #:[id number] date: 0-93-72Qzndsl given:0.5mlRoute: IMSite given:L DltdGiven by: ElaineVIS and ABN signed [employer] SCREENING DIGITAL TOMOSYNTHESIS On: 20-Dec-2017 Intent OF BREAST (77295)By: Sarah Pizano MD, MD, Dana M DEXA SCAN AXIAL SKELETON On: 20-Dec-2017 Intent (54507)By: Sarah Pizano MD, MD, Dana M SCREENING DIGITAL TOMOSYNTHESIS On: 29-Apr-2017 Intent OF BREAST (91297)By: Sarah Pizano MD, MD, Dana M Flu Vaccine (Quadrivalent) On: 29-Apr-2017 Intent [id number]: Sarah Pizano MD Comments: lot: [id number]: 12/19/18site/route: L kelin, IMamt: 0.5mlVIS and ABN signed when applicableChelsea, MANAGER MERCHANDISE Sarah Pizano MD CT - Abdomen & Pelvis (IV On: 01-Oct-2016 Intent Contrast Needed)By: Dima DURAN, Comments: attentinon pancrease follow up on kidney cyst. 07-20 creat 0.76 Sarah Ghosh MD Flu Vaccine (Quadrivalent) On: 17-May-2016 Intent [id number]: Sarah Pizano MD Comments: FLUlot: [id number]:11/17site:Lt deltoidroute:IMdose:.5mlDEMICK, MA Sarah Pizano MD Aerosol Treatment (38843)By: On: 27-Apr-2016 Intent Slarb UNDERWRITING CONSULTANT, Kacey DEXA SCAN AXIAL SKELETON On: 09-Mar-2016 Intent (46182)By: Sarah Pizano MD, MD, Dana M MAMMOGRAM, SCREENING, BOTH On: 09-Mar-2016 Intent BREAST (50775)By: Sarah Pizano MD, MD, Dana M DEXA SCAN AXIAL SKELETON On: 15-Jul-2015 Intent ([id number])By: Sarah Pizano MD, MD, Dana M MAMMOGRAM, SCREENING, BOTH On: 15-Jul-2015 Intent BREAST (21716)By: Sarah Pizano MD, MD, Dana M Aerosol Treatment (93407)By: On: 08-Jul-2015 Intent Pamella Saavedra CNP Aerosol Treatment (16444)By: On: 08-Jul-2015 Intent Slarb UNDERWRITING CONSULTANT, Kacey XR HIP RIGHT COMPLETE ([id number])By: On: 30-Jun-2015 Intent Sarah Pizano MD, MD, Comments: right hip Sarah Rebollar Radiology - PelvisBy: Dima On: 24-Jun-2015 Intent Sarah DURAN MD, Dana M Comments: and right hip xray Venous Doppler - RightBy: On: 24-Jun-2015 Intent Sarah Pizano MD, MD, Comments: leg Sarah Rebollar Flu Vaccine (Quadrivalent) On: 15-Apr-2015 Intent 14206Pa: Sarah Pizano MD Comments: lot [id number]: 01/01/2016site/route L kelin, IMamt 0.5mlVIS and ABN signed when applicableMelba, CMAFM4 Sarah Pizano MD Radiology - ChestBy: Quentin ARGUETA, On: 07-Feb-2015 Intent Adeola Aerosol Treatment (13598)By: On: 07-Feb-2015 Intent Ailyn Aguilar Solu -Medrol Injection, 125 mg On: 05-Feb-2015 Intent (J2930)By: Pamella Saavedra CNP Comments: lot:[id number]:route:IMdose:125MGsite: R glutGiven by: FOX Angeles Solu -Medrol Injection, 125 mg On: 04-Feb-2015 Intent (J2930)By: Pamella Saavedra CNP Aerosol Treatment ([id number])By: On: 04-Feb-2015 Intent Pamella Saavedra CNP MAMMOGRAM, SCREENING, BOTH On: 14-Jan-2015 Intent BREAST (28003)By: Sarah Pizano MD, MD, Dana M Prevnar 13 (28966)By: Dima On: 16-Jul-2014 Intent Sarah DURAN MD, Dana M ADMINISTRATION OF INFLUENZA On: 22-Apr-2014 Intent VIRUS VACCINE (G0008)By: Sarah Pizano MD, MD, Dana M FLU VAC, SPLIT, >3 YEARS, On: 22-Apr-2014 Intent INTRAMUSC (47975)By: Dima DURAN, Comments: Lot #:[id number] date:mount given:0.5mlRoute: IMSite given:left deltoid Given by: Sarah Mota MD Phenergan Injection, up to 50 mg On: 12-Dec-2013 Intent (J2550)By: Pamella Saavedra CNP MAMMOGRAM, SCREENING, BOTH On: 25-Sep-2013 Intent BREASTS (38799)By: Sarah Pizano MD, MD, Dana M Eprescribed prescriptions On: 25-Sep-2013 Intent (G8553)By: Sarah Pizano MD, MD, Dana M Aerosol Treatment (29851)By: On: 05-Sep-2013 Intent [address] Sa[address]ra CNP CT - Abdomen & Pelvis (IV On: 04-Jun-2013 Intent Contrast Needed)By: Sarah Pizano MD, MD, Dana M DXA, BONE DENSITY, AXIAL On: 04-Jun-2013 Intent SKELETON (72785)By: Dima DURAN, Comments: postmenapausal Sarah Ghosh MD MAMMOGRAM, SCREENING, BOTH On: 04-Jun-2013 Intent BREASTS (33818)By: Dima DURAN, Sarah Ghosh MD Pulse Oximetry (06218)By: On: 04-Jun-2013 Intent COMFROT Gallegos Eprescribed prescriptions On: 14-May-2013 Intent (G8553)By: Melba Malloy ELECTROCARDIOGRAM, COMPLETE On: 26-Dec-2012 Intent (ECG) (34597)By: Sarah Pizano MD, MD, Dana M Eprescribed prescriptions On: 26-Dec-2012 Intent (G8553)By: Makenzie Allred LPN MAMMOGRAM, SCREENING, BOTH On: 24-Aug-2012 Intent BREASTS (18660)By: Sarah Pizano MD, MD, Dana M Pulse Oximetry (38770)By: On: 29-Jun-2012 Intent COMFORT Gallegos Radiology - Chest- PA and LatBy: On: 01-Jun-2012 Intent Sofia Younger DO Eprescribed prescriptions On: 01-Jun-2012 Intent (G8553)By: Kim Garces LPN FLU VAC, SPLIT, >3 YEARS, On: 28-Apr-2012 Intent INTRAMUSC (26096)By: Balaji, Comments: Lot:[id number]:6.30.13Dose:prefilledRoute:IMSite:L DltdGiven By:BARRY Garcia IMMUNIZ ADMNIN, 1 VAC, On: 28-Apr-2012 Intent SNGL/COMBO (18804)By: Radha Carpio TDAP VACCINE >7 IM (58118)By: On: 24-Nov-2011 Intent Makenzie Allred LPN Comments: Lot #[id number]- 11.13Site- L arm, ImDose prefilledgiven by: Makenzie MAMMOGRAM, SCREENING, BOTH On: 01-Nov-2011 Intent BREASTS (50057)By: Sarah Pizano MD, MD, Dana M Aerosol Treatment (85800)By: On: 14-Oct-2011 Intent Sofia Younger DO Comments: [...] SPLIT, >3 YEARS, On: 20-Apr-2011 Intent INTRAMUSC (59992)By: Cayden Comments: Lot #[id number]-8/30/12Site-left deltoidgiven by: Jared Rodarte, SCAR CASTILLON, Chery IMMUNIZ ADMNIN, 1 VAC, On: 20-Apr-2011 Intent SNGL/COMBO (57828)By: Chery Rodarte LPN B 12 Injection, 1000 mcg On: 22-Mar-2011 Intent (J3420)By: COMFORT Gallegos DRAIN/INJECT MAJOR JOINT OR On: 22-Mar-2011 Intent BURSA ()By: COMFORT Gallegos Comments: Lot #:[id number] date: given:2ml Route: intra articular Site given:bilateral knees Given by: Dr. Pizano Pulse Oximetry (84207)By: Quentin On: 19-Mar-2011 Intent PEACH GROWER, Adeola Aerosol Treatment (32701)By: On: 19-Mar-2011 Intent Ciesa PEACH GROWER, Adeola DRAIN/INJECT MAJOR JOINT OR On: 12-Mar-2011 Intent BURSA ()By: COMFORT Gallegos Comments: Lot #:[id number] date: given:2ml Route: intra articular Site given:bilateral knees Given by: Dr. Pizano DRAIN/INJECT MAJOR JOINT OR On: 04-Mar-2011 Intent BURSA ()By: COMFORT Gallegos Comments: Lot #:[id number] date: given:2mlRoute: intra articular Site given:Bilateral knees Given by: Dr. Pizano injection #1 Kenalog Injection, 10 mgm On: 08-Feb-2011 Intent (J3301)By: Sarah Pizano MD Comments: x 8 Sarah Pizano MD Breast Ultrasound - LeftBy: On: 08-Feb-2011 Intent Sarah Pizano MD, MD, Sarah Rebollar DXA, BONE DENSITY, AXIAL On: 02-Nov-2010 Intent SKELETON (21174)By: Sarah Pizano MD, MD, Dana M MAMMOGRAM, SCREENING, BOTH On: 02-Nov-2010 Intent BREASTS (74516)By: Sarah Pizano MD, MD, Dana M FLU VAC, SPLIT, >3 YEARS, On: 17-Jun-2010 Intent INTRAMUSC (25823)By: Cayden Comments: Lot #[id number] 4PExp-4/11Site-right deltoidgiven by:Chery PAVON LPN IMMUNIZ ADMNIN, 1 VAC, On: 17-Jun-2010 Intent SNGL/COMBO (28307)By: Chery Rodarte LPN DXA, BONE DENSITY, AXIAL On: 30-Sep-2009 Intent SKELETON (87723)By: Sarah Pizano MD, MD, Dana M MAMMOGRAM, SCREENING, BOTH On: 30-Sep-2009 Intent BREASTS (30311)By: Sarah Pizano MD, MD, Dana M B 12 Injection, 1000 mcg On: 30-Sep-2009 Intent (J3420)By: COMFORT Gallegos Pulse Oximetry (53830)By: Quentin On: 09-Apr-2009 Intent PEACH GROWER, Adeola Aerosol Treatment (40354)By: On: 09-Apr-2009 Intent Ciesa PEACH GROWER, Adeola FLU VAC, SPLIT, >3 YEARS, On: 26-Mar-2009 Intent INTRAMUSC (11653)By: Lisa HERRON, Andie IMMUNIZ ADMNIN, 1 VAC, On: 26-Mar-2009 Intent SNGL/COMBO (50780)By: Lisa HERRON, Comments: Lot #: [id number] date: mount given: 0.5 mlRoute: IMSite given: left deltoidGiven by: SCAR Montenegro INJECTION, VITAMIN B-12 On: 07-Feb-2009 Intent CYANOCOBALAMIN, UP TO 1000 MCG Comments: Lot #[id number] date: given:1mlSite given: right deltoidGiven by:Judith. (Special Coverage Instructions Apply. See [facility]: 45-4 and [facility]: 2048) (J3420)By: COMFORT Gallegos Pulse Oximetry (33070)By: Ceci On: 04-Dec-2008 Intent DO, Rosa Maria A Comments: post hpuotrxoi27% Aerosol Treatment (55568)By: On: 04-Dec-2008 Intent Fast DORosa Maria A Comments: done-aw B 12 Injection, 1000 mcg On: 04-Dec-2008 Intent (J3420)By: Tonia Garcia Comments: Lot #[id number]-05/2010Site-right batnlvqZuun5193ztg/1mlgiven by Debbie Lei LPN Pulse Oximetry (54652)By: On: 04-Dec-2008 Intent Tonia Garcia Comments: 91% [...] Intent (J3420)By: COMFORT Gallegos Comments: Lot #[id number]-right yvewqwpMwrb6885zle/1mlgiven by Debbie Lei LPN DRAIN/INJECT MAJOR JOINT OR On: 09-Oct-2008 Intent BURSA ()By: COMFORT Gallegos Comments: Lot #:[id number] date:mount given:Route: intra articular Site given:bilateral knees Given by: Dr. Pizano DRAIN/INJECT MAJOR JOINT OR On: 01-Oct-2008 Intent BURSA ()By: COMFORT Gallegos Comments: Lot #:[id number] date:mount given:2.5ml Route:intra-articular Site given:Bilateral knees Given by: Dr. Pizano DRAIN/INJECT MAJOR JOINT OR On: 24-Sep-2008 Intent BURSA ()By: COMFORT Gallegos Comments: Lot #:[id number] date: Amount given:2.5 mlRoute: intra-articular Site given:bilateral knees Given by: Dr. Pizano DRAIN/INJECT MAJOR JOINT OR On: 17-Sep-2008 Intent BURSA ()By: COMFORT Gallegos Comments: Lot #:[id number] date:mount given:2 grams Route: Intra articular Site given: bilateral knees Given by: Dr. Pizano DRAIN/INJECT MAJOR JOINT OR On: 13-Sep-2008 Intent BURSA ()By: COMFORT Gallegos Comments: Lot #:[id number] date:05-10 Amount given:2.5MLRoute: INTRA ARTICULAR Site given:bilateral knees Given by: Dr. Dima Sarkar 12 Injection, 1000 mcg On: 10-Sep-2008 Intent (J3420)By: COMFORT Gallegos B 12 Injection, 1000 mcg On: 29-Jul-2008 Intent (J3420)By: Denise Collazo Comments: Amt: 1mlLot: [id number]: 02/10Route: IMSite: right deltTolerated: wellGiven By: SCAR Sood Pulse Oximetry (70456)By: Quentin On: 29-Jul-2008 Intent KENDALL Adeola Aerosol Treatment (29149)By: On: 29-Jul-2008 Intent Ciesa KENDALL Adeola Aerosol Treatment (79053)By: On: 16-Jul-2008 Intent Sofia Younger DO Comments: done-awnoise resolved and much more air exchange Pulse Oximetry (94371)By: Carisa On: 16-Jul-2008 Sofia Davis DO Comments: 93% Solu- Medrol Injection, 125mg On: 16-Jul-2008 Intent (J2930)By: Sofia Younger DO Comments: Lot #OATYMExp-12/12Site-right wpyCsvw8ou/125mggiven by Debbie Lei LPN B 12 Injection, 1000 mcg On: 30-Apr-2008 Intent (J3420)By: Prema Lei Comments: Lot #[id number]-11/10Site-right zeythltVrss6qanwhxs by Debbie Lei LPN DXA, BONE DENSITY, AXIAL On: 30-Apr-2008 Intent SKELETON (08446)By: Dima DURAN, Comments: estrogen def Sarah Pizano MD, Sarah Rebollar MAMMOGRAM, SCREENING, BOTH On: 30-Apr-2008 Intent BREASTS (66523)By: Dima DURAN, Sarah Pizano MD, Sarah Rebollar B 12 Injection, 1000 mcg On: 27-Mar-2008 Intent (J3420)By: Tonia Garcia Comments: Lot #:[id number] date:mount given:.1mlRoute: IMSite given:left deltoidGiven by: EDEN Salcido Pulse Oximetry (59843)By: On: 27-Mar-2008 Intent Tonia Garcia Comments: 96% Pulse Oximetry (33685)By: On: 14-Mar-2008 Intent COMFORT Gallegos B 12 Injection, 1000 mcg On: 06-Feb-2008 Intent (J3420)By: Pamella Saavedra CNP Comments: Lot #:[id number] date: Amount given:1ml Route: IMSite given:left deltoid Given by: billy Solu -Medrol Injection, 125 mg On: 06-Feb-2008 Intent (J2930)By: Pamella Saavedra CNP Comments: Lot #:[id number] date:mount given:125mgRoute: IMSite given:left gluteal Given by: aretha Pulse Oximetry (45280)By: Quentin On: 06-Feb-2008 Intent Pamella ARGUETA Aerosol Treatment (85024)By: On: 06-Feb-2008 Intent Pamella Saavedra CNP B 12 Injection, 1000 mcg On: 21-Dec-2007 Intent (J3420)By: Ledy Nogueira Comments: given in right deltoid, lot#[id number], exp.3.10 >Wf. B 12 Injection, 1000 mcg On: 03-Oct-2007 Intent (J3420)By: Ciesa PEACH GROWER, Adeola Pulse Oximetry (30090)By: Quentin On: 03-Oct-2007 Intent Pamella ARGUETA Aerosol Treatment (74257)By: On: 03-Oct-2007 Intent Bryanjunie Pamella ARGUETA Pulse Oximetry (34116)By: Lenny, On: 16-Aug-2007 Intent Cira Aerosol Treatment (18929)By: On: 16-Aug-2007 Intent Sofia Younger DO Comments: no wheeze and better air exchange Solu- Medrol Injection, 125mg On: 16-Aug-2007 Intent (J2930)By: Sofia Younger DO Comments: given in left buttocks.lot # [id number]\Exp 02/2010 SPECIMEN HNDLNG/TRNSPRT, OFFC > On: 16-Aug-2007 Intent LAB (93479)By: Sofia Younger DO B 12 Injection, 1000 mcg On: 01-Aug-2007 Intent (J3420)By: Prema Lei Comments: Lot #[id number]-05/12Site-left tdwtcmkEkcc1lcegvth by Debbie Lei [facility] CT - ChestBy: Sarah Pizano MD On: 01-Aug-2007 Intent Sarah Pizano MD FLU VAC, SPLIT, >3 YEARS, On: 18-Apr-2007 Intent INTRAMUSC (86271)By: Sarah Pizano MD, MD, Dana M IMMUNIZ ADMNIN, 1 VAC, On: 18-Apr-2007 Intent SNGL/COMBO (18421)By: Sarah Pizano MD, MD, Dana M B [...] Injection, 1000 mcg On: 26-Oct-2006 Intent (J3420)By: Lisa RN, Andie SPECIMEN HNDLNG/TRNSPRT, OFFC > On: 10-Oct-2006 Intent LAB (36908)By: Sarah Pizano MD, MD, Dana M Solu -Medrol Injection, 125 mg On: 16-Sep-2006 Intent (J2930)By: Sarah Pizano MD Comments: lot # [id number] exp 04-[address] gluteal by Sarah Chacon lpn, MD Pulse Oximetry (41635)By: On: 16-Sep-2006 Intent Sarah Pizano MD, MD, Dana M Aerosol Treatment (08074)By: On: 16-Sep-2006 Intent Sarah Pizano MD, MD, Dana M Pulse Oximetry (56413)By: On: 04-Aug-2006 Intent Sarah Pizano MD, MD, Dana M EKG (63414)By: Sarah Pizano MD On: 08-Jul-2006 Intent Sarah Morfin MD IMMUNIZ ADMNIN, 1 VAC, On: 06-May-2006 Intent SNGL/COMBO (28833)By: Ramiro ABBOTT, Peg FLU VAC, SPLIT, >3 YEARS, On: 06-May-2006 Intent INTRAMUSC (79728)By: Ramiro ABBOTT, Comments: Lot #:Expiration date:Amount given:Route: imSite given:r armGiven by: galina golden lpn Peg Echo CompleteBy: Dima DURAN, On: 19-Apr-2006 Intent [address] MD [address] - Abdomen & PelvisBy: Dima On: 19-Apr-2006 Intent Sarah DURAN MD, Dana M Comments: ?obstruction, pancreatitis, attention kidney cyst send to [facility] gastrologist [facility] Planned Medications INJECTION, METHYLPREDNISOLONE SODIUM [...] Advance Directives Name Dates Details Immunization Registry [place] - Effective on Effective: 29-Apr-201704/29/2017. Expiration date [...] (579.8), Hyponatremia (276.1), Asthma (493.11), Fibromyalgia (729.1), [facility] V73.21 [place] (Renamed from [facility]), Obesity,unspecified (278.00), GERD (530.81), DEFICIENCY, VITAMIN [...] ANEMIA DUE TO DIETARY IRON DEFICIENCY (280.1), [facility] V73.21 [place] (Renamed from [facility]) [facility] Office Visit On: [...] (477.8), Other vitamin B12 deficiency anemia (281.1), [facility] Phone Encounter On: [...] docs for this Dr Jacob rabago at [facility]-- -- feels similiar to what she had [...] months. Note for Fever: pt had epidural 4-58-20Drkhdrwrq Diagnosis: Dehydration(276.51), Abdominal Pain,Generalized (789.07), FEVER (780.6) [...] care visit: swelling better with aldactone, reviewed medical consultant's letter use compression, work up from [...] weekend , bite by flies, camp in [facility], no fever abd pain still [...] Epigastric pain (789.06), SVC thrombosis, Fibromyalgia (729.1), [facility] Office Visit On: 21-Nov-2006 [...] chemistry (790.6) [facility] junie guarantor
--- OUTSIDE RECORDS SUMMARY | 2018-08-02 06:12 | XMS RPT_ITS | Continuity of Care Document ---
:1955 Author Organization [facility] Address [address] [place] [address] Phone Care Team Providers Name Role Phone [...] cervical.doing every 6 months. ariel leaving to [place]. reconmmend Dr. romero and i talk to [...] really expensive can use an equivalent Creon 96714 UNIT Oral Capsule Delayed Release Particles 2 [...] MD, Dana M Start : 30-Nov-2016 Active Lavaca 5-325 MG Oral Tablet 1 (one) Tablet q 6 hours prn (usual use tid) for 0 days Quantity: 30 {Tablet} Refills: 0 Ordered:13-Jan-2017 Sraah Pizano MD, MD, Dana M Start : [...] Start : 14-Apr-2018 Active Vitamin D (Ergocalciferol) 26163 UNIT Oral Capsule 1 (one) capsule twice [...] MD, Dana M Start : 06-Feb-2018 Active Comments:[id number] called to [facility] ADVAIR DISKUS, 100-50MCG/DOSE (Inhalation Miscellaneous) 1 puff BID for 0 days Refills: 0 Ordered:17-Sep-2008 Prema Lei End : 14-Mar-2008 Inactive ALBUTEROL, 90MCG/ACT (Inhalation Aerosol Solution) 1 puff Q 4hr/PRN for 0 days Refills: 0 Ordered:17-Sep-2008 Prema Lei End : 14-Mar-2008 Inactive ASTEPRO, 0.15% (Nasal Solution) 1 Solution bid for 0 days Quantity: 1 {Solution} Refills: 0 Ordered:12-Oct-2010 Spuriya Fung LPN Start : 26-May-2010 End : [...] End : 24-Aug-2012 Inactive CALCIUM 500/VITAMIN D, 357-442VQ-LRJW (Oral Tablet) 1 (one) Tablet daily for [...] : 09-Mar-2016 End : 04-Jun-2016 Inactive Drisdol 27620 UNIT Oral Capsule 1 Capsule two times [...] : 21-Dec-2007 End : 14-Mar-2008 Inactive Nystatin 096153 UNIT/GM External Powder 1 Powder bid for [...] cervical.doing every 6 months. george leaving to [place]. reconmmend Dr. romero and i talk to [...] Procedures Procedure Dates Details [place]ACC, [place] (14398) Date: 01-Oct-2016 Cancelled Cholecystectomy Completed GASTRIC BYPASS, OPEN (92644) Completed Comments: 1997, Dr. lindsay did for recurrent pancreatitis, this is what helped her. Hysterectomy; Abdominal Completed JEJUNOSTOMY (18004) Completed Comments: 1995 closed 1997 when had gastric bypass, because of pancreatitis and was tube feed for 2 years Date Value Details 21-Mar-2018 Dexa Bone Density Study Result: Comments: See Note; NOTES: [facility] Imaging Services [address] [place] [address] Dexa Bone Density Study MR#: [id number] Acct: [id number] Name: JOSE J COBIAN Rep #: [id number] : 1955 F 63 From: Bartolome Patel MD PCP: Sarah Pizano MD Status: REG CLI Study: Dexa Bone Density Study Date of Exam: 03/21/18 Exam# [id number] Ordering Dr: Sarah Piznao MD STUDY: D UAL ENERGY X-RAY ABSORPTIOMETRY [...] Bartolome Patel MD at 15:07 EDT Tel [phone], Service support , CC: Sarah iPzano MD Licensing Court Magistrate: Signed 21-Mar-2018 SCREENING MAMM (CAD), BILAT Result: Comments: See Note; NOTES: [facility] Imaging Services [address] [place] [address] SCREENING MAMM (CAD), BILAT MR#: [id number] Acct: [id number] Name: JOSE J COBIAN Rep #: [id number] : 1955 F 63 From: Bartolome Patel MD PCP: Sarah Pizano MD Status: [facility] Study: SCREENING MAMM (CAD), BILAT Date of Exam: 03/21/18 Exam# [id number] Ordering Dr: Sarah Pizano MD MAMMOGRAPHY - [...] biopsy of a clinically suspicious abno rmality. [id number] Electronically Signed: Bartolome Patel MD at 13:21 EDT Tel [phone], Service support , CC: Sarah Pizano MD Licensing Court Magistrate: Signed 07-Nov-2017 Operative Report Result: Comments: See Note; NOTES: [facility] Medical Records Department [address] [place] [address] Operative Report 11/07/17 1027 MR#: [id number] Acct: [id number] Name: JOSE J COBIAN Rep #: [id number] : 1955 62 From: Bubba Romero MD PCP: Sarah Pizano MD Status: REG SDC Y Location: [place] [address] Problem List (1) Disc disease, degenerative, lumbar [...] 4 Views Result: Comments: See Note; NOTES: [facility] Imaging Services [address] [place] [address] L/S Spine Min 4 Views MR#: [id number] Acct: [id number] Name: JOSE J COBIAN Rep #: [id number] : 1955 F 62 From: Bartolome Patel MD PCP: Sarah Pizano MD Status: [facility] Study: L/S Spine Min 4 Views Date of Exam: 11/07/17 Exam# [id number] Ordering Dr: Bubba Romero MD PROCEDURE : [...] Bartolome Patel MD at 11:01 EDT Tel [phone], Service support , CC: Sarah Pizano MD; Bubba Romero Licensing Court Magistrate: Signed 04-Oct-2017 Cardiology Visit Report Result: Comments: See Note; NOTES: [facility] 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: No Accompanied by: Is patient in [...] mg PO DAILY@0800 10/20/15 [History Confirmed 10/03/17] [place] codone Bitart/Apap 5-325 [Lavaca 5/325] 1 tab PO Q4H PRN PRN [...] infarction beginning age 61's, has had several [place]'s CAD (co ronary artery disease) history of [...] Operative Report Result: Comments: See Note; NOTES: [facility] Medical Records Department [address] [place] [address] Operative Report 09/05/17 0944 MR#: [id number] Acct: [id number] Name: JOSE J COBIAN Rep #: [id number] : 1955 62 From: Bubba Romero MD PCP: Sarah Pizano MD Status: REG [facility] Y Location: [place] [address] Problem List (1) Lumbosacral spondylosis Status: Chronic [...] 4 Views Result: Comments: See Note; NOTES: [facility] Imaging Services [address] [place] [address] L/S Spine Min 4 Views MR#: [id number] Acct: [id number] Name: JOSE J COBIAN Rep #: [id number] : 1955 F 62 From: Bartolome Patel MD PCP: Sarah Pizano MD Status: [facility] Study: L/S Spine Min 4 Views Date of Exam: 09/05/17 Exam# [id number] Ordering Dr: Bubba Romero MD PROCEDURE : [...] Bartolome Patel MD at 9:02 EST Tel [phone], Service support , CC: Sarah Pizano MD; Bubba Romero Licensing Court Magistrate: Signed 08-Aug-2017 Operative Report Result: Comments: See Note; NOTES: [facility] Medical Records Department [address] [place] [address] Operative Report 08/08/17 1408 MR#: [id number] Acct: [id number] Name: JOSE J COBIAN Rep #: [id number] : 1955 62 From: Bubba Romero MD PCP: Sarah Pizano MD Status: [facility] Y Location: [facility] Problem List (1) Lumbosacral radiculopathy Status: Chronic [...] 3 Views Result: Comments: See Note; NOTES: [facility] Imaging Services [address] [place] [address] Lumbar Spine 2 or 3 Views MR#: [id number] Acct: [id number] Name: JOSE J COBIAN Rep #: [id number] : 1955 F 62 From: Bartolome Patel MD PCP: Sarah Pizano MD Status: [facility] Study: Lumbar Spine 2 or 3 Views Date of Exam: 08/08/17 Exam# [id number] Ordering Dr: Bubba Romero MD P ROCEDURE: [...] Bartolome Patel MD at 11:32 EST Tel [phone], Service support , CC: Sarah Pizano MD; Bubba Romero Licensing Court Magistrate: Signed 09-May-2017 Operative Report Result: Comments: See Note; NOTES: [facility] Medical Records Department [address] [place] [address] Operative Report 05/09/17 1348 MR#: [id number] Acct: [id number] Name: VIRAJ COBIANA Denise Rep #: [id number] : 1955 62 From: Bubba Romero MD PCP: Sarah Pizano MD Status: REG SDC Y Location: [place] [address] Report of Operation Date of Procedure: 05/09/17 [...] Spine Inj Result: Comments: See Note; NOTES: [facility] Imaging Services [address] [facility] [place] [address] Fluor Guidance for Spine Inj MR#: [id number] Acct: [id number] Name: JOSE J COBIAN Rep #: [id number] : 1955 F 62 From: Bartolome Patel MD PCP: Sarah Pizano MD Status: [facility] Study: Fluor Guidance for Spine Inj Date of Exam: 05/09/17 Exam# [id number] Ordering Dr: Bubba Romero MD PROCEDURE: Caudal [...] Bartolome Patel MD at 14:03 EST Tel [phone], Service support , CC: Sarah leigh MD; Bubba Romero Licensing Court Magistrate: Signed 29-Apr-2017 L/S Spine Min 4 Views Result: Comments: See Note; NOTES: [facility] Imaging Services [address] [place] [address] L/S Spine Min 4 Views MR#: [id number] Acct: [id number] Name: JOSE J COBIAN Rep #: [id number] : 1955 F 62 From: Feliberto Sim MD PCP: Sarah Pizano MD Status: REG CLI Study: L/S Spine Min 4 Views Date of Exam: 04/29/17 Exam# [id number] Ordering Dr: Lizeth Sanches STUDY: X-RAY - [...] , Service support , CC: Lizeth Sanches; Saarh Pizano MD Licensing Court Magistrate: Signed 21-Mar-2017 Operative Report Result: Comments: See Note; NOTES: [facility] Medical Records Department [address] [place] [address] Operative Report 03/21/17 0841 MR#: [id number] Acct: [id number] Name: JOSE J COBIAN Rep #: [id number] : 1955 62 From: Bubba Romero MD PCP: Sarah Pizano MD Status: DEP [facility] Y Location: [facility] Problem List (1) Cervical spine degeneration Status: [...] 5 Views Result: Comments: See Note; NOTES: [facility] Imaging Services [address] [place] [address] Cerv Spine 4 or 5 Views MR#: [id number] Acct: [id number] Name: JOSE J COBIAN Rep #: [id number] : 1955 F 62 From: Daniel Manzano DO PCP: Sarah Pizano MD Status: [facility] Study: Cerv Spine 4 or 5 Views Date of Exam: 03/21/17 Exam# [id number] Ordering Dr: Bubba Romero MD STUDY: X-RAY - CERVICAL SPINE REASON FOR EXAM: Female, 62 years old. Cervical block TECHNIQUE: 4 view(s) of the cervical spine were obtained. COMPARISON: None FINDINGS: Face t block was performed with 4 spot fluoroscopy images obtained. Total fluoroscopy time 14.7 seconds. Please see performing physician's report for further details ORD ER #: [id number] RAD/Cerv Spine 4 or 5 Views IMPRESSION: As above Electronically Signed: Daniel Manzano DO at 16:12 EDT Tel , Service support , CC: Sarah Pizano MD; Bubba Romero Licensing Court Magistrate: Signed 17-Jan-2017 Operative Report Result: Comments: See Note; NOTES: [facility] Medical Records Department [address] [place] [address] Operative Report 01/17/17 1246 MR#: [id number] Acct: [id number] Name: JOSE J COBIAN Rep #: [id number] : 1955 61 From: Bubba Romero MD PCP: Sarah Pizano MD Status: DEP [facility] Y Location: [facility] Problem List (1) Cervical spine degeneration Status: [...] 5 Views Result: Comments: See Note; NOTES: [facility] Imaging Services [address] [place] [address] Verdana 4d Cerv Spine 4 or 5 Views MR#: [id number] Acct: [id number] Name: JOSE J COBIAN #: [id number] : 1955 F 61 From: Tonia Galvan MD PCP: Sarah Pizano MD Status: [facility] Study: Cerv Spine 4 or 5 Views Date of Exam: 01/17/17 Exam# [id number] Ordering Dr: Bubba Rmoero MD STUDY: X-RAY - CERVICAL SPINE REASON [...] Tonia Galvan MD at 16:36 EDT Tel [phone], Service support , CC: Sarah Pizano MD; Bubba Romero Licensing Court Magistrate: Signed 09-Oct-2016 Abdomen/Pelvis WITH Contrast Result: Comments: See Note; NOTES: [facility] Imaging Services [address] [place] [address] Shiradana 4d Abdomen/Pelvis WITH Contrast MR#: [id number] Acct: [id number] Name: VIRAJ COBIAN Rep #: [id number] : 1955 F 61 From: Enrike Peres PCP: Sarah Pizano MD Status: REG CLI Study: Abdomen/Pelvis WITH Contrast Date of Exam: 10/09/16 Exam# [id number] Ordering Dr: Sarah Pizano MD STUDY: CT [...] at 9:47 EDT Tel , Service support [phone], CC: Sarah Pizano MD Licensing Court Magistrate: Signed 23-Aug-2016 Operative Report Result: Comments: See Note; NOTES: [facility] Medical Records Department [address] [place] [address] Operative Report MR#: [id number] Acct: [id number] Name: JOSE J COBIAN Rep #: [id number] : 1955 61 From: Bubba Romero MD PCP: Sarah Pizano MD Status: [facility] DATE OF SERVICE: 08/09/2016 DATE [...] indicated. Bubba Romero MD T: NTS JOB: [id number] 08/23/16 1357 <Electronica lly signed by Bubba Romero MD> Date [facility] Signature (If Indicated): Date ____ CC: Sarah Pizano MD; Bubba Romero Date Dictated: 08/09/16 1311 Date Transcribed: 08/09/161310 [address] Magistrate: Signed 09-Aug-2016 Thoracic Spine 3 Views Result: Comments: See Note; NOTES: [facility] Imaging Services [address] [place] [address] Verdana 4d Thoracic Spine 3 Views MR#: [id number] Acct: [id number] Name: JOSE J COBIAN p #: [id number] : 1955 F 61 From: Azalia Fernandes MD PCP: Sarah Pizano MD Status: [facility] Study: Thoracic Spine 3 Views Date of Exam: 08/09/16 Exam# [id number] Ordering Dr: Bubba Romero MD JERO DY: [...] at 1 2:18 EST , Service support [phone], CC: Sarah Pizano MD; Bubba Romero Licensing Court Magistrate: Signed 01-Jun-2016 PT D/C of Non Returning Pt (1) Result: Comments: See Note; NOTES: [facility] [address] [place], [place] [address] Fax REHABILITATION SERVICES DISCHAR GE SUMMARY MR#: [id number] Acct: [id number] Name: JOSE J COBIAN Rep #: [id number] Operative Report Result: Comments: See Note; NOTES: [facility] Medical Records Department [address] [address] Operative Report MR#: [id number] Acct: [id number] Name: JOSE J COBIAN Rep #: [id number] : 1955 61 From: Bubba Romero MD PCP: Sarah Pizano MD Status: [facility] DATE OF SERVICE: 03/22/2016 DATE [...] indicated. Bubba Romero MD T: NTS JOB: [id number] 04/05/16 1351 <E lectronically signed by Bubba Romero MD> Date Bubba Romero MD Cosigner Signature (If Indicated): Date CC: Sarah Pizano MD; Bubba Romero Date Dictated: 03/22/161415 Date Transcribed: 03/22/1614[address] Magistrate: Signed 01-Apr-2016 Echocardiogram Complete Result: Comments: See Note; NOTES: [facility] Cardiovascular Services [address] [place] [address] Echo Complete 04/01/16 1256 MR#: [id number] Acct: [id number] Name: JOSE J COBIAN Rep #: [id number] : 1955 61 From: Antonino Lucsa MD Attending Dr: Antonino Lucas MD Status: REG CLI Ordering Dr: Antonino Lucas MD Date: 04/01/16 Location: [facility] Sex: F C Admitted: Reason For [...] Dictated: 04/01/16 1256 Date Transcribed: 04/01/[address] Magistrate: Signed 22-Mar-2016 Breast Limited Unilateral Result: Comments: See Note; NOTES: [facility] Imaging Services [address] [place] [address] Verdana 4d Breast Limited Unilateral MR#: [id number] Acct: [id number] Name: JOSE J COBIAN Rep #: [id number] : 1955 F 61 From: Bartolome Patel MD PCP: Sarah Pizano MD Status: REG CLI Study: Breast Limited Unilateral Date of Exam: 03/22/16 Exam# [id number] Ordering Dr: Zack Pizano MD STUDY: ULTRASOUND [...] Bartolome Patel MD at 12:35 EDT Tel [phone], Service support [phone], CC: Sarah Pizano MD Licensing Court Magistrate: Signed 19-Mar-2016 Thoracic Spine 3 Views Result: Comments: See Note; NOTES: [facility] Imaging Services [address] [place] [address] Verdana 4d Thoracic Spine 3 Views MR#: [id number] Acct: [id number] Name: MANGOVIRAJA Denise Prather #: [id number] : 1955 F 61 From: Bartolome Patel MD PCP: Sarah Pizano MD Status: REG [facility] Study: Thoracic Spine 3 Views Date of Exam: 03/22/16 Exam# [id number] Ordering Dr: Bubba Romero MD STUDY: X-RAY [...] Bartolome Patel MD at 14:10 EDT Tel [phone], Service support [phone], CC: Sarah vasquez MD; Bubba Romero Licensing Court Magistrate: Signed 19-Mar-2016 Inital Evaluation (1) - PT Result: Comments: See Note; NOTES: [facility] [address] [place] [address] Fax REHABILITATION SERVICES HERI Springer EVALUATION MR#: [id number] Acct: [id number] Name: JOSE J COBIAN Rep #: [id number] : 1955 61 From: Mac Smith Referring Dr.: Bubba Romero Status: REG RCR Insurance: the[employer] ARE MEDICARE Patient's Visit Information JOSE J [...] to be FAXED BACK to us at [phone] for Medicare purposes. Please let me know [...] AND CAD Result: Comments: See Note; NOTES: [facility] Imaging Services [address] [address] Verdana 4d Bilat Scrn Digital AND CAD MR#: [id number] Acct: [id number] Name: JOSE J COBIAN Rep #: [id number] : 1955 F 61 From: Bartolome Patel MD PCP: Sarah Pizano MD Status: REG CLI Study: Bilat Scrn Digital AND CAD Date of Exam: 03/16/16 Exam# [id number] Ordering Dr: Sarah Pizano MD MAMMOGRAPHY - [...] delay biopsy of a clinically suspicious abnormality. [id number] Electronically Signed: Bartolome Patel MD at 15:06 EDT Tel [phone], Service supp ort [phone], CC: Sarah Pizano MD Licensing Court Magistrate: Signed 16-Mar-2016 Dexa Bone Density Study (HP) Result: Comments: See Note; NOTES: [facility] Imaging Services [address] [facility] [place] [address] Verdana 4d Dexa Bone Density Study (HP) MR#: [id number] Acct: [id number] Name: MAURI COBIAN Rep #: [id number] : 1955 F 61 From: Bartolome Patel MD PCP: Sarah Pizano MD Status: REG CLI Study: Dexa Bone Density Study (HP) Date of Exam: 03/16/16 Exam# [id number] Ordering Dr: Sarah Deng MD STUDY: DUAL [...] Bartolome Patel MD at 14:15 EDT Tel [phone], Service support [phone], CC: Sarah Pizano MD Licensing Court Magistrate: Signed 22-Feb-2016 History and Physical Exam Result: Comments: See Note; NOTES: [facility] Medical Records Department [address] [place] [address] History and Physical 02/22/162054 MR#: [id number] Acct: [id number] Name: JOSE J COBIAN Rep #: [id number] : 1955 60 From: An Dent DO [...] was seen in the emergency room at [facility] with a chief complaint of precordial [...] - Mediport placement Psychiatric Hist ory: Anxiety 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 Lives: Spouse/ Significant Other Smoking Status: [...] 44.6 L Lymph % (Auto) 46.1 H Isabella % (Auto) 6.9 Eos % (Auto) 2.0 [...] View (Portable) Result: Comments: See Note; NOTES: [facility] Imaging Services [address] [place] [address] Verdaolvin 4d Chest 1 View (Portable) MR#: [id number] Acct: [id number] Name: JOSE J COBIAN Rep #: [id number] : 1955 F 60 From: Kim Dsouza MD PCP: Sarah Pizano MD Status: REG ER Study: Chest 1 View (Portable) Date of Exam: 02/22/16 Exam# [id number] Ordering Dr: Mac Chi MD STUDY: X-RAY [...] MD at 19:35 EDT , Service support [phone], CC: Sarah Pizano MD; Mac Chi MD Licensing Court Magistrate: Signed 16-Feb-2016 Thoracic Spine 3 Views Result: Comments: See Note; NOTES: [facility] Imaging Services [address] [place] [address] Verdana 4d Thoracic Spine 3 Views MR#: [id number] Acct: [id number] Name: JOSE J COBIAN Yamilka #: [id number] : 1955 F 60 From: Kirk Wall MD PCP: Sarah Pizano MD Status: REG CLI Study: Thoracic Spine 3 Views Date of Exam: 02/16/16 Exam# [id number] Ordering Dr: Sarah Pizano MD ST UDY: [...] at 21:50 EDT , S titi support [phone], CC: Sarah Pizano MD Licensing Court Magistrate: Signed 03-Nov-2015 Operative Report Result: Comments: See Note; NOTES: [facility] Medical Records Department [facility] [place] [address] Operative Report MR#: [id number] Acct: [id number] Name: JOSE J COBIAN Rep #: [id number] : 1955 60 From: Bubba Romero MD PCP: Sarah Pizano MD Status: [facility] DATE OF SERVICE: 10/20/2015 DATE [...] indicated. Lidia Romero MD T: NTS JOB: [id number] 11/03/15 4145 <Electronically signed by Bubba Romero MD> Date Bubba Romero MD Co signer Signature (If Indicated): Date CC: Sarah Pizano MD; Bubba Romero Date Dictated: 10/20/15 1351 Date Transcribed: 10/20/151350 [address] Magistrate: Signed 20-Oct-2015 Cerv Spine 2 or 3 Views Result: Comments: See Note; NOTES: [facility] Imaging Services [address] [place] [address] Verdana 4d Cerv Spine 2 or 3 Views MR#: [id number] Acct: [id number] Name: JOSE J NOWAK Rep #: [id number] : 1955 F 60 From: Bartolome Patel MD PCP: Sarah Pizano MD Status: [facility] Study: Cerv Spine 2 or 3 Views Date of Exam: 10/20/15 Exam# [id number] Ordering Dr: Bubba Romero MD STUDY: X-RAY [...] Bartolome Patel MD at 13:45 EDT Tel [phone], Service support [phone], RAD/Cerv Spine 2 or 3 Views IMPRESSION: Fluoroscopic services provided for right 4 through C7 facet block. Electronically Signed: Bartolome Patel MD at 13:45 EDT Tel [phone], Service support [phone], CC: Sarah Pizano MD; Bubba Romero Licensing Court Magistrate: Signed 18-Aug-2015 Operative Report Result: Comments: See Note; NOTES: [facility] Medical Records Department [address] [place] [address] Operative Report MR#: [id number] Acct: [id number] Name: JOSE J COBIAN Denise Rep #: [id number] : 1955 60 From: Bubba Romero MD PCP: Sarah Pizano MD Status: [facility] DATE OF SERVICE: 08/04/2015 DATE [...] d. Bubba Romero MD T: [facility] JOB: [id number] 08/18/15 0927 <Electronically signed by Bubba Romero MD> Date Bubba copeland MD Cosigner Signature (If Indicated): Date CC: Sarah Pizano MD; Bubba Romero Date Dictated: 08/04/151432 Date Transcribed: 08/04/1514[address] Magistrate: Signed 04-Aug-2015 Cerv Spine 2 or 3 Views Result: Comments: See Note; NOTES: [facility] Imaging Services [address] [place] [address] Verdana 4d Cerv Spine 2 or 3 Views MR#: [id number] Acct: [id number] Name: JOSE J NOWAK Rep #: [id number] : 1955 F 60 From: Kirk Wall MD PCP: Sarah Pizano MD Status: [facility] Study: Cerv Spine 2 or 3 Views Date of Exam: 08/04/15 Exam# [id number] Ordering Dr: Osiel Romero MD STUDY: X-RAY [...] MD at 16:28 EST , Service support [phone], RAD/Cerv Spine 2 or 3 Views IMPRESSION: Needle positions as above. Electronically Signed: Kirk Wall MD at 16:28 EST , Service support [phone], CC: Sarah Pizano MD; Bubba Romero Licensing Court Magistrate: Signed 02-Jul-2015 Hip min 2 Views Result: Comments: See Note; NOTES: [facility] Imaging Services [address] [place] [address] Verdana 4d Hip min 2 Views MR#: [id number] Acct: [id number] Name: VIRAJ COBIAN Rep #: [id number] : 1955 F 60 From: Tuan Boyd MD PCP: Sarah Pizano MD Status: REG CLI Study: Hip min 2 Views Date of Exam: 07/02/15 Exam# [id number] Ordering Dr: Sarah Pizano MD S DY: [...] at 12:42 EST Tel , Service support [phone], Fax RAD/Hip min 2 Views IMPRESSION: Normal x-ray examination of the hip. Electronically Signed: Lucius Boyd MD at 12:42 EST Tel , Linnea e support [phone], CC: Sarah Pizano MD Licensing Court Magistrate: Signed 24-Jun-2015 Pelvis 1 or 2 Views Result: Comments: See Note; NOTES: [facility] Imaging Services [address] [place] [address] Verdana 4d Pelvis 1 or 2 Views MR#: [id number] Acct: [id number] Name: JOSE J COBIAN Rep #: [id number] : 1955 F 60 From: Prosper Dumont MD PCP: Sarah Pizano MD Status: REG CLI Study: Pelvis 1 or 2 Views Date of Exam: 06/24/15 Exam# [id number] Ordering Dr: Tuan Pizano MD STUDY: X-RAY [...] at 11:20 EST Tel , Service support [phone], RAD/Pelvis 1 or 2 Views IMPRESS ION: There is narrowing with cortical sclerosis and osteophyte formation of the sacroiliac joint consistent with degenerative osteoarthritic changes. Electronically Signed: Lavell Dumont MD 08/26 at 11:20 EST Tel , Service support [phone], CC: Sarah Pizano MD Licensing Court Magistrate: Signed 07-Feb-2015 Chest PA and Lateral Result: Comments: See Note; NOTES: [facility] Imaging Services [address] [place] [address] Radiology Report MR#: [id number] Acct: [id number] Name: JOSE J COBIAN Rep #: [id number] : 1955 F 59 From: Baldemar Torres DO PCP: Sarah Pizano MD Status: REG CLI Study: Chest PA and Lateral Date of Exam: 02/07/15 Exam# [id number] Ordering Dr: Pamella Saavedra STUDY: X-RAY CHES [...] Baldemar Torres DO at 19:14 EDT Tel [phone], Service support [phone], RAD/Chest PA and Lateral IMPRESSION: No acute cardiopulmonary disease or interval change. Electronically Signed: Baldemar Torres DO at 19: 14 EDT Tel [phone], Service support [phone], CC: Pamella Saavedra; Sarah Pizano MD Licensing Court Magistrate: Signed 05-Feb-2014 Katie Santillann Digital [employer] CAD Result: Comments: See Note; NOTES: [facility] Imaging Services [address] [place] [address] Breast Imaging Report MR#: [id number] Acct: [id number] Name: JOSE J COBIAN Rep #: [id number] : 1955 F 58 From: Bartolome Patel MD PCP: Sarah Pizano MD Status: REG CLI Exam# [id number] Ordering Dr: Sarah Pizano MD MAMMOGRAPHY - [...] Bartolome Patel MD at 13:16 EDT Tel [phone], Service support [phone], CC: Sarah Pizano MD Licensing Court Magistrate: Signed 06-Jun-2013 Abdomen/Pelvis with Contrast Result: Comments: See Note; NOTES: [facility] Imaging Services [address] [place] [address] CAT Scan Report MR#: [id number] Acct: [id number] Name: JOSE J COBIAN Rep #: [id number] : 1955 F 58 From: Tuan Atkins MD PCP: Sarah Pizano MD Status: REG CLI Study: Abdomen/Pelvis with Contrast Date of Exam: 06/06/13 Exam# [id number] Ordering Dr: Sarah Pizano MD STUD Y: [...] M.D. at 0:12 EST , Service support [phone], CC: Sarah Pizano MD Licensing Court Magistrate: Signed Immunization Name Dates Details Influenza (3 [...] Lives with spouse. marixa mcclure PETROS Rangel [phone] Status: Active Most Recent Primary Occupation Comments: [employer] retired. 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 sweetheart [...] kg/m2 Body Surface Area Calculated 1.77 m2 36-Fmt-059847:04 Temperature 97 f Comments: Method: Temporal Pulse [...] kg/m2 Body Surface Area Calculated 1.78 m2 4-Bbt-832042:11 Temperature 98.6 f Pulse 84 /min Comments: [...] Height 0 in Head Circumference 0.00 cm 78-Qrb-958840:53 Pulse 74 /min Comments: Pattern: Regular Respiration [...] Date Description Value Details :57 Urinalysis, Office (70400) UA - LEUKOCYTE ESTERASE Negative (Normal) UA - NITRITE Negative (Normal) URINE UROBILINGN YANCI TIMED 2 mg/dL (Normal) UA - PROTEIN Negative mg/dL (Normal) UA - PH 7.0 (Normal) UA - BLOOD Negative (Normal) UA - SPECIFIC GRAVITY 1.010 (Normal) UA - KETONES Negative mg/dL (Normal) UA - BILIRUBIN Negative (Normal) UA - GLUCOSE Negative (Normal) 03-Apr-20188:00 Protime w/INR Fingerstick Comments: [facility] [address] [place], [place] [address] INR ISTAT 1.10 (Normal) Comments: Critical Value > 3.5 PROTIME ISTAT 13.7 {SEC} (Normal) Range: 11.9-14.4 Comments: Reference Range 11.9 - 14.4 :23 Amylase 89 U/L (Normal) Comments: PATIENT NOT FASTINGPERFORMED BY: LabCoCooper [facility] HospitalCnwkro3864 [facility] [id number] Range: 31-124 34-Ntv-036786:23 CBC With Differential/Platelet Comments: PATIENT NOT FASTINGPERFORMED BY: [facility]CoCo[facility] HospitalNztfid5376 [facility] [id number] Immature Grans (Abs) 0.0 {x10E3/uL} (Normal) Range: [...] 3.77-5.28 WBC 4.2 {x10E3/uL} (Normal) Range: 3.4-10.8 69-Woe-339491:23 Comp. Metabolic Panel (14) Comments: PATIENT NOT FASTINGPERFORMED BY: PokenCooper University HospitalZeuvxz7706 [facility] [id number] ALT (SGPT) 18 [iU]/L (Normal) Range: 0-32 [...] U/L (Abnormal) Comments: PATIENT NOT FASTINGPERFORMED BY: PokenCo[facility] HospitalPswpyl3716 [facility] [id number] 4:23 Range: 14-72 26-Hwd-270370:23 Urinalysis, Routine Comments: PATIENT NOT FASTINGPERFORMED BY: LabCoCooper [facility] HospitalNrmksu[address] [place] [id number] Microscopic Examination MICNIP (Normal) Comments: Microscopic not indicated and not performed. Nitrite, Urine Negative (Normal) Urobilinogen,Semi-Qn 1.0 mg/dL (Normal) Range: 0.2-1.0 Bilirubin Negative (Normal) Occult Blood Negative (Normal) Ketones Negative (Normal) Glucose Negative (Normal) Protein Negative (Normal) WBC Esterase Negative (Normal) Appearance Clear (Normal) Urine-Color Yellow (Normal) pH 6.0 (Normal) Range: 5.0-7.5 Specific [place] 1.020 (Normal) Range: 1.005-1.030 :42 Protime w/INR Fingerstick Comments: [facility] [address] [place], [place] [address] INR ISTAT 1.00 (Normal) Comments: Critical Value > 3.5 PROTIME ISTAT 12.4 {SEC} (Normal) Range: 11.9-14.4 Comments: Reference Range 11.9 - 14.4 77-Lfy-295102:14 CBC W/Diff, Automated Comments: [facility] [address] [facility] [address] [place], [address] ; fu 6-19 Absolute Lymph [...] 4.2-5.4 WBC 4.7 K/mm3 (Normal) Range: 4.4-11.0 34-Nzf-645508:14 Comprehensive Metabolic Profil Comments: [facility] [address] [place], [address] GAP 5 (Normal) Range: 5-15 CO2 29.0 [...] A.D.A. criteria.Please note revised GLUCOSE reference range qcebxfoyr57/02/2018. 36-Lbi-051959:14 Ferritin Comments: [facility] [address] [place], [address] FERRITIN 82 ng/mL (Normal) Range: 8-252 64-Bil-041002:14 Vitamin B12 558 pg/mL (Normal) Comments: [place] [address] [address] [place], [address] Range: 211-911 05-Sep-20178:07 Protime w/INR Fingerstick Comments: [facility] LaboratoryPoint [place] [address] [address] [place] [address] INR ISTAT 1.30 (Normal) Comments: Critical Value > 3.5 PROTIME ISTAT 14.9 {SEC} (Abnormal) Range: 11.9-14.4 Comments: Reference Range 11.9 - 14.4 08-Aug-20179:10 Protime w/INR Fingerstick Comments: [place] [address] [address] [place] [address] INR ISTAT 1.10 (Normal) Comments: Critical Value > 3.5 PROTIME ISTAT 13.0 {SEC} (Normal) Range: 11.9-14.4 Comments: Reference Range 11.9 - 14.4 56-Rnu-456921:32 Culture, Blood (WB) Comments: [place] [address] [address] [place], [address] CUB See Note (Normal) Comments: Has pt arrived? Y Comments: DR. Mello growth in 5 days. 39-Usu-253419:25 CBC W/Diff, Automated Comments: Comments: DR Cui [facility] [address] [place], [address] Absolute Lymph 1.68 {X10_3/ul} (Normal) [...] 4.2-5.4 WBC 3.9 K/mm3 (Abnormal) Range: 4.4-11.0 42-Uii-406064:25 Culture, Blood (WB) Comments: [facility] [address] [place], [address] CUB See Note (Normal) Comments: Has pt arrived? Y Comments: DR. Mello growth in 5 days. 45-Uvl-510072:25 Erythrocyte Sed Rate Comments: Comments: DR Cui [facility] [address]sr[address]lg[address] [place], [address] SED RATE 8 mm/h (Normal) Range: 0-30 48-Zfk-481928:25 Ferritin Comments: Comments: [facility] Ukkkjwqtar4022 [address] [place], [address] FERRITIN 83 ng/mL (Normal) Range: 8-252 14-Zod-027649:25 Vitamin D,25 Hydroxy Comments: Order Date: 07/20/17[facility] [address] [place], [address] Vitamin D 25-OH 34.6 ng/mL (Normal) Comments: Vitamin D 25(OH) Status Range Deficiency <20 ng/mL (50nmol/L) Insuffciency 20 - 30 ng/mL (50 - 75 nmol/L) Sufficiency 30 - 100 ng/mL (75 - 250 nmol/L) Toxicity >100 ng/mL (>250 nmol/L) 95-Rok-924428:10 Culture, Urine Comments: [facility] [address]em[address]myia[address] [place], [address] CUUR See Note (Normal) Comments: Order Date: 07/20/17 Comments: DR PIZANO Urine CultureCulture exhibits no growth. 37-Vaz-487840:10 Urinalysis, Complete Comments: Order Date: 07/20/17Has pt arrived? YComments: DR Morales was Urine Obtained? CLEAN [facility] [address] [place], [address] MUCUS, URINE 0 SEEN {/hpf} (Normal) [...] Yellow (Normal) :48 Protime w/INR Fingerstick Comments: [place] [address] [place] [address] INR ISTAT 1.10 (Normal) Comments: Critical Value > 3.5 PROTIME ISTAT 13.2 {SEC} (Normal) Range: 11.9-14.4 Comments: Reference Range 11.9 - 14.4 :30 Protime w/INR Fingerstick Comments: [place] [address] [place] [address] INR ISTAT 1.10 (Normal) Comments: Critical Value > 3.5 PROTIME ISTAT 12.8 {SEC} (Normal) Range: 11.9-14.4 Comments: Reference Range 11.9 - 14.4 :44 INR Fingerstick Comments: [place] [address] [place] [address] INR ISTAT 1.10 (Normal) Comments: Critical Value > 3.5 :44 Prothrombin Time Fingerstick Comments: [place] [address] [place] [address] PROTIME ISTAT 13.6 {SEC} (Normal) Range: 11.9-14.4 Comments: Reference Range 11.9 - 14.4 98-Nyh-118810:17 HgA1C , Office (86443) HgA1C , Office 5.7 % (Normal) Range: 4.6 - 7.1 10-Gys-228885:08 Metabolic Panel, Basic Comments: PATIENT NOT FASTINGPERFORMED BY: [facility] Yihfgy4714 [facility] [id number] (88655) Calcium, Serum 9.1 mg/dL (Normal) Range: 8.7-10.3 [...] Glucose, Serum 97 mg/dL (Normal) Range: 65-99 09-Qen-741417:08 CBC (Auto) (84358) Comments: PATIENT NOT FASTINGPERFORMED BY: [employer] [facility] [id number] Platelets 306 {x10E3/uL} (Normal) Range: 150-379 RDW 15.6 % (Abnormal) Range: 12.3-15.4 MCHC 32.9 g/dL (Normal) Range: 31.5-35.7 MCH 28.3 pg (Normal) Range: 26.6-33.0 MCV 86 fL (Normal) Range: 79-97 Hematocrit 35.9 % (Normal) Range: 34.0-46.6 Hemoglobin 11.8 g/dL (Normal) Range: 11.1-15.9 RBC 4.17 {x10E6/uL} (Normal) Range: 3.77-5.28 WBC 4.6 {x10E3/uL} (Normal) Range: 3.4-10.8 45-Mrw-875850:08 URINALYSIS W/O MICRO (23052) Comments: PATIENT NOT FASTINGPERFORMED BY: [employer]6370 [facility] [id number] Microscopic Examination MICNIP (Normal) Comments: Microscopic not indicated and not performed. Nitrite, Urine Negative (Normal) Urobilinogen,Semi-Qn 0.2 mg/dL (Normal) Range: 0.2-1.0 Bilirubin Negative (Normal) Occult Blood Negative (Normal) Ketones Negative (Normal) Glucose Negative (Normal) Protein Negative (Normal) WBC Esterase Negative (Normal) Appearance Clear (Normal) Urine-Color Yellow (Normal) pH 6.0 (Normal) Range: 5.0-7.5 Specific [place] 1.013 (Normal) Range: 1.005-1.030 57-Miq-513128:08 COMPLEMENT C4 (55705) Comments: PATIENT NOT FASTINGPERFORMED BY: [facility]6370 [facility] [id number] Complement C4, Serum 16 mg/dL (Normal) Range: 14-44 50-Zsv-843014:08 COMPLEMENT C3 (41102) Comments: PATIENT NOT FASTINGPERFORMED BY: [address] [id number] Complement C3, Serum 103 mg/dL (Normal) Range: 82-167 65-Zge-915366:08 DNA ANTIBODY-NATV/DBL ST (32475) Comments: PATIENT NOT FASTINGPERFORMED BY: [address] [id number] test code 269462 Anti-DNA (DS) Ab Qn <1 {IU/mL} (Normal) Range: 0-9 Comments: Negative <5 Equivocal 5 - 9 Positive >9 42-Lwe-636952:08 Sed Rate Erythrocyte (81576) Comments: PATIENT NOT FASTINGPERFORMED BY: [place] [address] [facility] [id number] Sedimentation Rate-Westergren 4 mm/h (Normal) Range: 0-40 62-Fvo-386462:08 DESIRAE (ANTINUCLEAR ANTIBODY) Comments: PATIENT NOT FASTINGPERFORMED BY: [address] [id number] (09041) DESIRAE Direct Negative (Normal) 4-Fqa-284819:04 Prothrombin Time w/INR Comments: [facility] [address] [place], [place], [address] INR 1.5 (Normal) PROTIME 17.8 s (Abnormal) Range: 11.7-14.9 10-Hub-533777:45 Prothrombin Time w/INR Comments: [facility] [address] [place], [place], [address](773) INR 3.0 (Normal) PROTIME 30.3 s (Abnormal) Range: 11.7-14.9 :51 Serum Creatinine AND GFR Comments: [facility] [address] [place], [address] EST GFR - AA 90 mL/min (Normal) Comments: GFR Calc EST GFR 74 mL/min (Normal) Comments: Non- GFR Calc CREAT,SERUM 0.83 mg/dL (Normal) Range: 0.55-1.02 Comments: The validity of the calculated GFR AND GFRAA in patients over70 years has not been determined. Clinical correlation isessential. :21 LIPASE (66272) Comments: PATIENT NOT FASTINGPERFORMED BY: [facility] Xgwoxp4064 [address] RoadDublin [place] [id number] Lipase, Serum 46 U/L (Normal) Range: 14-72 Comments: Please note reference interval change :21 AMYLASE (24283) Comments: PATIENT NOT FASTINGPERFORMED BY: CB [facility] Rtvshg6775 [address] RoadDublin [place] [id number] Amylase, Serum 65 U/L (Normal) Range: 31-124 3-Syn-352394:21 CALCIFIDIOL (81527) VIT D 25 Comments: PATIENT NOT FASTINGPERFORMED BY: CB [facility] Rfasvz7932 [address] RoadDublin [place] [id number] Vitamin D, 25-Hydroxy 25.8 ng/mL (Abnormal) Range: 30.0-100.0 Comments: Vitamin D deficiency has been defined by the [place] ofMedicine and an Endocrine Society practice guideline as alevel of serum 25-OH vitamin D less than 20 ng/mL (1,2).The Endocrine Society went on to further define vitamin Dinsufficiency as a level between 21 and 29 ng/mL (2).1. IOM ([place] of Medicine). 2010. Dietary reference intakes for calcium and D. [place]: The National Academies Press.2. Candelaria MF, Janey ELIAS, Yolande GROSS, et al. Evaluation, treatment, and prevention of vitamin D deficiency: an Endocrine Society clinical practice guideline. JCEM. 2010; 96(7):1911-30. 2-Sth-386747:21 Ferritin (67386) Comments: PATIENT NOT FASTINGPERFORMED BY: MONA [facility] [address] [place] [facility] [place] [id number]; fu 10-27 db Ferritin, Serum 10 ng/mL (Abnormal) Range: 15-150 0-Svm-526672:21 Vitamin B-12 (cyanocobalamin) Comments: PATIENT NOT FASTINGPERFORMED BY: [facility] Kdcrar5582 [facility] [id number] (56801) Vitamin B12 1888 pg/mL (Abnormal) Range: 211-946 4-Ljd-317356:21 METABOLIC PANEL, COMPREHENSIVE Comments: PATIENT NOT FASTINGPERFORMED BY: MONA [facility] W[address]hatb[address] [place] [facility] [id number] (26479) ALT (SGPT) 11 [iU]/L (Normal) Range: 0-32 [...] Glucose, Serum 101 mg/dL (Abnormal) Range: 65-99 7-Qhy-975709:21 CBC with auto diff Comments: PATIENT NOT FASTINGPERFORMED BY: MONA [facility] Luejex[address] [place] [id number] Information: CLIENT DRAW (33540) Immature Grans (Abs) 0.0 {x10E3/uL} (Normal) Range: [...] 3.77-5.28 WBC 5.7 {x10E3/uL} (Normal) Range: 3.4-10.8 23-Tyf-457503:14 Prothrombin Time w/INR Comments: [facility] [address]sf[address]mtx[address] [place], [address] INR 1.9 (Normal) Comments: ADDENDA: handled by cardio PROTIME 21.0 s (Abnormal) Range: 11.7-14.9 :57 HEPATIC FUNCTION PANEL Comments: PATIENT NOT FASTINGPERFORMED BY: [facility]6370 [facility] [id number] (43309) ALT (SGPT) 15 [iU]/L (Normal) Range: 0-32 AST (SGOT) 20 [iU]/L (Normal) Range: 0-40 Alkaline Phosphatase, S 114 [iU]/L (Normal) Range: 39-117 Bilirubin, Direct 0.10 mg/dL (Normal) Range: 0.00-0.40 Comments: Please note reference interval change Bilirubin, Total <0.2 mg/dL (Normal) Range: 0.0-1.2 Albumin, Serum 4.9 g/dL (Abnormal) Range: 3.6-4.8 Protein, Total, Serum 7.1 g/dL (Normal) Range: 6.0-8.5 :57 IGA/IGD/IGG/IGM-EACH (13731) Comments: PATIENT NOT FASTINGPERFORMED BY: [facility]6370 [facility] [id number] Immunoglobulin E, Total 50 {IU/mL} (Normal) Range: 0-100 Immunoglobulin M, Qn, Serum 43 mg/dL (Normal) Range: 26-217 Immunoglobulin A, Qn, Serum 131 mg/dL (Normal) Range: 87-352 Immunoglobulin G, Qn, Serum 753 mg/dL (Normal) Range: 700-1600 74-Iaz-745237:57 EBV ACUTE PFOF IgG/IgM Comments: PATIENT NOT FASTINGPERFORMED BY: [facility]6370 [facility] [id number] 156611 (89522) Interpretation: SPR (Normal) Comments: EBV Interpretation Chart [...] (LACTATE DEHYDROGENASE) Comments: PATIENT NOT FASTINGPERFORMED BY: [facility]6370 [facility] [id number] (29965) LDH 191 [iU]/L (Normal) Range: 119-226 82-Vit-889280:57 HIV-1 & 2 ANTBDY-SNGL SHAWN Comments: PATIENT NOT FASTINGPERFORMED BY: [facility]6370 [facility] [id number] (41554) HIV Screen 4th Generation wRfx Non Reactive (Normal) :57 HEPATITIS PANEL (83597) Comments: PATIENT NOT FASTINGPERFORMED BY: [facility]6370 [facility] [id number] Hep C Virus Ab 0.1 {s/co_ratio} (Normal) Range: 0.0-0.9 Comments: Negative: < 0.8 Indeterminate: 0.8 - 0.9 Positive: > 0.9 . The CDC recommends that a positive HCV antibody result be followed up with a HCV Nucleic Acid Amplification test (031826). Hep B Core Ab, IgM Negative (Normal) HBsAg Screen Negative (Normal) Hep A Ab, IgM Negative (Normal) 9-Kds-112043:56 Culture, Blood (WB) Comments: [facility] [address] [place], [place], [address] CUB See Note (Normal) Comments: BCNo growth in 5 days. 5-Oao-123928:56 EBV Acute Prof IgG / IgM Comments: [facility] (refer to report for specific site)refer to report for address and phone number INTERPRETATION Comment (Normal) Comments: EBV Interpretation ChartInterpretation EBV-IgM EA(D)-IgG VCA-IgG EBNA-IgGEBV Seronegative - - - -Early Phase + - - -Acute Primary + +or- + -InfectionConvalescence/Past - +or- + +InfectionReactivated +or- + + +Infection + Antibody Present - Antibody Ab sentPerformed at: [address] [id number] Director: Neo Campos PhD, Phone: [phone] EB-NAg OhV96246 136.0 U/mL (Abnormal) Range: 0.0-17.9 Comments: Negative <18.0 Equivocal 18.0 - 21.9 Positive >21.9 EB-VCA GpC26659 255.0 U/mL (Abnormal) Range: 0.0-17.9 Comments: Negative <18.0 Equivocal 18.0 - 21.9 Positive >21.9 EB-EA IgG 72200 18.4 U/mL (Abnormal) Range: 0.0-8.9 Comments: Hepatitis A, Hepatitis C and HIV antibodies may cross-reactwith this assay. Negative < 9.0 Equivocal 9.0 - 10.9 Positive >10.9 EB-VCA YuJ68954 36.1 U/mL (Abnormal) Range: 0.0-35.9 Comments: A second sample should be collected and tested no less than2-4 weeks. Negative <36.0 Equivocal 36.0 - 43.9 Positive >43.9 6-Wgk-760534:56 Ferritin Comments: [facility] [address]ibgpw[address] [place], [address] FERRITIN 34 ng/mL (Normal) Range: 8-252 9-Xjc-831266:56 Vitamin D,25 Hydroxy Comments: [facility] Zkmjgppqpo9250 [facility] [place], [address] Vitamin D 25-OH 29.2 ng/mL (Normal) Comments: Vitamin D 25(OH) Status Range Deficiency <20 ng/mL (50nmol/L) Insuffciency 20 - 30 ng/mL (50 - 75 nmol/L) Sufficiency 30 - 100 ng/mL (75 - 250 nmol/L) Toxicity >100 ng/mL (>250 nmol/L) 2-Wzp-146968:03 INR Fingerstick Comments: [place] [address] [place] [address] INR ISTAT 1.00 (Normal) Comments: Critical Value > 3.5 6-Stv-318362:03 Prothrombin Time Fingerstick Comments: [place] [address] [place] [address] PROTIME ISTAT 12.1 {SEC} (Normal) Range: 11.9-14.4 Comments: Reference Range 11.9 - 14.4 92-Aia-035700:55 Prothrombin Time w/INR Comments: [place] [address] [place], [address] INR 2.6 (Normal) PROTIME 26.7 s (Abnormal) Range: 11.7-14.9 :44 GRETTA CULTURE-OTHER (22806) Comments: PATIENT NOT FASTINGPERFORMED BY: [employer] [facility] [id number] Information: THROAT SRC:TH Result 1 RRF (Normal) Comments: Routine respiratory rajwinder Upper Respiratory Culture Final report (Normal) 92-Aqb-747333:31 Rapid Flu (07913 x 2) Influenza A Ag negative (Normal) 10-Lob-866243:31 Rapid Strep Test, Office (38531) Rapid Strep Test, Office Negative (Normal) 93-Rrf-008388:46 Microscopic Examination Comments: PATIENT NOT FASTINGPERFORMED BY: [facility] Xdfxsq0702 [facility] [id number] Bacteria Few (Normal) Mucus Threads Present (Normal) Crystal Type Calcium Oxalate (Normal) Crystals Present (Abnormal) Epithelial Cells (non renal) 0-10 {/hpf} (Normal) Range: 0 - 10 RBC 0-2 {/hpf} (Normal) Range: 0 - 2 WBC 0-5 {/hpf} (Normal) Range: 0 - 5 48-Qkp-682259:46 URINALYSIS (18662) Comments: PATIENT NOT FASTINGPERFORMED BY: MondeCafesCooper University HospitalNzyxxd8639 [facility] [id number] Microscopic Examination See below: (Normal) Comments: Microscopic was indicated and was performed. Nitrite, Urine Negative (Normal) Urobilinogen,Semi-Qn 1.0 mg/dL (Normal) Range: 0.2-1.0 Bilirubin Negative (Normal) Occult Blood Negative (Normal) Ketones Negative (Normal) Glucose Negative (Normal) Protein Negative (Normal) WBC Esterase 1+ (Abnormal) Appearance Clear (Normal) Urine-Color Yellow (Normal) pH 6.0 (Normal) Range: 5.0-7.5 Specific [place] 1.018 (Normal) Range: 1.005-1.030 42-Mha-367381:46 CBC WITH MANUAL DIFF (28049) Comments: PATIENT NOT FASTINGPERFORMED BY: [facility]deCafesCooper University HospitalOuolot6343 [facility] [id number] Immature Grans (Abs) 0.0 {x10E3/uL} (Normal) Range: [...] 3.77-5.28 WBC 4.5 {x10E3/uL} (Normal) Range: 3.4-10.8 23-Nmy-964833:46 Ferritin (03416) Comments: PATIENT NOT FASTINGPERFORMED BY: PokenCooper University HospitalBimwjr2292 [facility] [id number] Ferritin, Serum 10 ng/mL (Abnormal) Range: 15-150 69-Wwp-489090:46 Metabolic Panel, Comprehensive Comments: PATIENT NOT FASTINGPERFORMED BY: RevistronicCoCooper University HospitalHieufg3381 [facility] [id number] (08749) ALT (SGPT) 18 [iU]/L (Normal) Range: 0-32 [...] Glucose, Serum 86 mg/dL (Normal) Range: 65-99 20-Vcy-414255:46 AMYLASE (98192) Comments: PATIENT NOT FASTINGPERFORMED BY: LabCoCooper [facility] HospitalGlbxcj6740 [facility] [id number] Amylase, Serum 81 U/L (Normal) Range: 31-124 51-Iwq-542659:46 LIPASE (27707) Comments: PATIENT NOT FASTINGPERFORMED BY: LabCoCooper [facility] HospitalFmvike6050 [facility] [id number] Lipase, Serum 79 U/L (Abnormal) Range: 0-59 61-Pxl-333336:33 Prothrombin Time w/INR Comments: Order Date: 03/23/16Order Date: 03/23/16Interface Comments: Reason:Order Date: 03/23/16[facility] [address] [place], [place], [address] INR 2.0 (Normal) PROTIME 22.3 s (Abnormal) Range: 11.7-14.9 26-Tqb-641211:36 Prothrombin Time w/INR Comments: [facility] [address] [place], [place], [address] INR 1.4 (Normal) PROTIME 17.1 s (Abnormal) Range: 11.7-14.9 47-Aen-638995:20 Prothrombin Time w/INR Comments: Order Date: 05/11/16Order Info: 6301-6 - *PT/INR - Standing OrderComments: Standing Order-Reason:Order Date: 05/11/16Order Info: 6301-6 - *PT/INR - Standing OrderComments: Standing Order- Reason:[facility] [address] [place], [place], [address] INR 1.2 (Normal) PROTIME 14.8 s (Normal) Range: 11.7-14.9 4-Xjd-292840:50 Prothrombin Time w/INR Comments: Order Date: 05/11/16Order Info: 6301-6 - *PT/INR - Standing OrderComments: Standing Order-Reason:Order Date: 05/11/16Order Info: 6301-6 - *PT/INR - Standing OrderComments: Standing Order-Reason:Order Da te: 05/11/16Order Info: 6301-6 - *PT/INR - Standing OrderComments: Standing Order-Reason:[facility] [address] [place], [place], [address] INR 1.2 (Normal) PROTIME 15.1 s (Abnormal) Range: 11.7-14.9 :00 Culture, Nose Comments: [facility] [address] [place], [place], [address] CUN See Note (Normal) Comments: Comments: NARESGram StainGram Stain Rare White Blood Cells 1+ Epithelial cells 4+ Gram positive rods Nasoph. CultNo Haemophilus, Streptococcus pneumoniae, beta-hemolytic Streptococcus or Staphylococcus aureus isolated. :00 Culture, Throat Comments: [facility] [address] [place], [place], [address] CUT See Note (Normal) Comments: Comments: NARESCulture, ThroatNo Haemophilus, Streptococcus pneumoniae, beta-hemolytic Streptococcus or Staphylococcus aureus isolated. 39-Txt-073335:05 Rapid Flu (77580 x 2) Influenza A Ag neg (Normal) :45 CBC W/Diff, Automated Comments: Order Date: 03/18/16Order Date: [facility] [address] [place], [place], [address] Absolute Lymph 2.95 {X10_3/ul} (Normal) Range: 0.83-4.51 [...] 1'CKMB' Serial Specimen #1, #2 or #3? 1[facility] Gfzcytepdm4774 [facility] [place], [address] CKRI 3.2 % (Abnormal) Range: 0.0-1.4 Comments: RELATIVE INDEX >1.5% IS PRESUMPTIVELY POSITIVE CPKMB 1.8 ng/mL (Normal) Range: 0.0-5.0 Comments: CK-MB and RI Interpretation MB Relative Index Non-AMI <or= 5 NA Indeterminate > 5 <or= 4 AMI > 5 > 4 CPK TOTAL 57 U/L (Normal) Range: 26-192 :45 Erythrocyte Sed Rate Comments: Order Date: 03/18/16Order Date: 03/18/16[facility] Znvyvpqaeq5656 Camilo [place], [id number] SED RATE 1 mm/h (Normal) Range: 0-30 :45 Myoglobin, Serum Comments: Order Date: 03/18/16[facility] (refer to report for specific site)refer to report for address and phone number Myoglobin, Ser 23 ng/mL (Abnormal) Range: 25-58 Comments: Performed at: - [facility] [id number] Director: Neo Campos PhD, Phone: [phone] 24-Rxx-437946:45 Troponin-I Comments: Order Date: 03/18/16TROP ADDED 03/19/16Order Date: 03/18/16'TROP' Serial specimen #1, #2, #3, or #4: 1'CKMB' Serial Specimen #1, #2 or #3? [address] [place] [address] Ohmtucqgym3879 Camilo [place], [id number] TROPONIN-I < 0.02 ng/mL (Normal) Comments: TROPONIN-I EXPECTED VALUES <0.05 NEGATIVE 0.06 - 0.59 AT RISK OF [place] > OR = 0.60 SUGGEST [place] 70-Qqd-369477:00 Basic Metabolic Profile (BMP) Comments: 'TROP' Serial specimen #1, #2, #3, or #4: [address] [place] [address] Wnmocwegle5754 Camilo Garcia [place], [id number] GAP 6 (Normal) Range: 5-15 CO2 26.0 [...] Range: 70-110 :00 CBC W/Diff, Automated Comments: [facility] Bfqveosqnv6018 [place], [address] Absolute Lymph 2.27 {X10_3/ul} (Normal) Range: 0.83-4.51 [...] 4.2-5.4 WBC 4.9 K/mm3 (Normal) Range: 4.4-11.0 27-Iek-431866:00 Lipase Comments: 'TROP' Serial specimen #1, #2, #3, or #4: [address] [place] [address] Mmvmyneoic4789 [place], [address] LIPASE 351 U/L (Normal) Range: 73-393 66-Snd-535142:00 Liver Profile Comments: 'TROP' Serial specimen #1, #2, #3, or #4: [address] [place] [address] Kuwmhjjvvd3530 [place], [address] D BILI 0.15 mg/dL (Normal) Range: 0.00-0.30 T BILI 0.30 mg/dL (Normal) Range: 0.20-1.00 ALT 23 U/L (Normal) Range: 12-78 ALK P 81 U/L (Normal) Range: 50-136 AST 24 U/L (Normal) Range: 15-37 GLOB 2.8 g/dL (Normal) Range: 2.3-3.5 ALB 4.0 g/dL (Normal) Range: 3.4-5.0 T PROT 6.8 g/dL (Normal) Range: 6.4-8.2 17-Brh-008488:00 Troponin-I Comments: 'TROP' Serial specimen #1, #2, #3, or #4: [address] [place] [address] Rxmjzwbqbd0502 [place], [address] TROPONIN-I < 0.02 ng/mL (Normal) Comments: TROPONIN-I EXPECTED VALUES <0.05 NEGATIVE 0.06 - 0.59 AT RISK OF [place] > OR = 0.60 SUGGEST [place] 30-Dvz-579777:08 Osmolality, Urine Comments: Order Date: 02/16/16Has pt arrived? [facility] Qospicaagk4764 [place], [address] OSMOLALITY,UR 310 {mOsm/KG} (Normal) Comments: OSMOLALITY URINE REFERENCE INTERVALS 24-hour Urine 300 - 900 mOsm/kg Random Urine 50 - 1400 mOsm/kg After 12 Hr fluid restriction >850 mOsm/kg 01-Iht-597738:50 Amylase Comments: [facility] Heuwzbmene3805 [address] [place], [place], [id number] PREMA 80 U/L (Normal) Range: 25-115 77-Iin-344210:50 CBC W/Diff, Automated Comments: [facility] [address] [place], [address] Absolute Lymph 1.51 {X10_3/ul} (Normal) Range: [...] 4.2-5.4 WBC 4.3 K/mm3 (Abnormal) Range: 4.4-11.0 43-Btd-378115:50 Comprehensive Metabolic Profil Comments: [facility] Ciixgldzmk9077 [address] [place], [address] GAP 6 (Normal) Range: 5-15 CO2 28.0 [...] 7-18 GLU 98 mg/dL (Normal) Range: 70-110 52-Ian-474692:50 Lipase Comments: [facility] Rfaxkidwpe7434 [address]. [place], [place], [id number] LIPASE 424 U/L (Abnormal) Range: 73-393 59-Fbm-404651:50 Osmolality, Serum Comments: [facility] Hwjbezdvlz2977 [address] [place], [place], [id number] OSMOLALITY,SER 275 {mOsm/KG} (Normal) Range: 275-295 22-Dye-291447:50 Vitamin B12 489 pg/mL (Normal) Comments: [facility] Vionqfvbms2809 [address] [place], [place], [id number] ; will review on 02/19 Range: 211-911 46-Ezo-826653:50 Vitamin D,25 Hydroxy Comments: [facility] Intxttqblh1858 [place], [address] Vitamin D 25-OH 37.6 ng/mL (Normal) Comments: Vitamin D 25(OH) Status Range Deficiency <20 ng/mL (50nmol/L) Insuffciency 20 - 30 ng/mL (50 - 75 nmol/L) Sufficiency 30 - 100 ng/mL (75 - 250 nmol/L) Toxicity >100 ng/mL (>250 nmol/L) 03-Ujp-45982:00 Ferritin Comments: [facility] Skixdechkn5730 [place], [address] FERRITIN 13 ng/mL (Normal) Range: 8-252 55-Hht-07202:00 Lipid Profile Comments: [facility] Lqsjmvuepr9277 [place], [address] VLDL 28 mg/dL (Normal) Range: 5-40 [...] 200-240 mg/dL Borderline >240 mg/dL High Risk 6-Wqs-000311:40 CBC W/Diff, Automated Comments: Order Date: 09/08/15Has pt arrived? [facility] Sxwrbxzkya7246 [place], [address] Absolute Lymph 1.80 {X10_3/ul} [...] 4.2-5.4 WBC 4.4 K/mm3 (Normal) Range: 4.4-11.0 3-Mbq-378350:40 Comprehensive Metabolic Profil Comments: Order Date: 09/08/15Has pt arrived? [facility] Fvhoztxpos7589 [facility] [place], [place], [address] GAP -1 (Abnormal) Range: 5-15 CO2 30.0 [...] 7-18 GLU 97 mg/dL (Normal) Range: 70-110 1-Lpj-075179:16 Amylase Comments: [facility] Comfdyrrwo4833 [place], [address] PREMA 95 U/L (Normal) Range: 25-115 9-Kbb-857299:16 Lipase Comments: [facility] Gxossmsmix7725 [facility] [place], [address] LIPASE 568 U/L (Abnormal) Range: 73-393 9-Ary-797849:29 Influenza A&B Viral Comments: PATIENT NOT FASTINGPERFORMED BY: [employer] [facility] [id number] Information: SRC:NOS [id number] Culture (94854) Viral Culture,Rapid,Influenza FLUABN (Normal) Comments: Negative:No Influenza A or B detected. 1-Zbc-442396:49 Rapid Flu (38611 x 2) Influenza A Ag neg (Normal) 83-Ifu-993846:01 CBC (Auto) (16431) Comments: now and in six months (approximately); PATIENT WAS FASTINGPERFORMED BY: [facility]6370 [facility] [id number] Information: [id number], [id number] Platelets 357 {x10E3/uL} (Normal) Range: 150-379 RDW 14.6 % (Normal) Range: 12.3-15.4 MCHC 34.1 g/dL (Normal) Range: 31.5-35.7 MCH 29.8 pg (Normal) Range: 26.6-33.0 MCV 88 fL (Normal) Range: 79-97 Hematocrit 37.0 % (Normal) Range: 34.0-46.6 Hemoglobin 12.6 g/dL (Normal) Range: 11.1-15.9 RBC 4.23 {x10E6/uL} (Normal) Range: 3.77-5.28 WBC 5.7 {x10E3/uL} (Normal) Range: 3.4-10.8 94-Rnc-811530:01 Metabolic Panel, Basic Comments: now; PATIENT WAS FASTINGPERFORMED BY: [facility] [place] [id number] (64852) Calcium, Serum 9.1 mg/dL (Normal) Range: 8.7-10.2 [...] Glucose, Serum 102 mg/dL (Abnormal) Range: 65-99 19-Iow-981575:01 CALCIFIDIOL (15046) VIT D 25 Comments: now and in six months (approximately); PATIENT WAS FASTINGPERFORMED BY: [employer]70 Re-APPblin [place] [id number] Vitamin D, 25-Hydroxy 32.8 ng/mL (Normal) Range: 30.0-100.0 Comments: Vitamin D deficiency has been defined by the [place] of[place]icine and an Endocrine Society practice guideline as alevel of serum 25-OH vitamin D less than 20 ng/mL (1,2).The Endocrine Society went on to further define vitamin Dinsufficiency as a level between 21 and 29 ng/mL (2).1. IOM ([place] of Medicine). 2010. Dietary reference intakes for calcium and D. [place]: The National Academies Press.2. Candelaria MF, Janey ELIAS, Yolande GROSS, et al. Evaluation, treatment, and prevention of vitamin D deficiency: an Endocrine Society clinical practice guideline. JCEM. 2010; 96(7):1911-30. 8-Gmp-408416:06 Sputum Culture (39675) Comments: PATIENT NOT FASTINGPERFORMED BY: [employer]70 [place] [facility] HospitalEasy IceAtrium Health Anson [id number] Information: [id number] Result 1 RRF (Normal) Comments: Routine respiratory rajwinder Lower Respiratory Culture Final report (Normal) 5-Qos-667641:12 Rapid Flu (22453 x 2) Influenza A Ag neg a and b (Normal) 06-Vym-584823:01 Urinalysis, Office (34764) UA - LEUKOCYTE ESTERASE Negative (Normal) UA - NITRITE Negative (Normal) URINE UROBILINGN YANCI TIMED Normal mg/dL (Normal) UA - PROTEIN Negative mg/dL (Normal) UA - PH 6.0 (Normal) Comments: 5.5 UA - BLOOD Negative (Normal) UA - SPECIFIC GRAVITY 1.025 (Normal) UA - KETONES Negative mg/dL (Normal) UA - BILIRUBIN Negative (Normal) UA - GLUCOSE Negative (Normal) 23-Gma-054610:40 Lipase (08697) Comments: PATIENT NOT FASTINGPERFORMED BY: [facility] Pgqmud1694 [facility]-APPAt[facility] Health [facility] [id number] Lipase, Serum 113 U/L (Abnormal) Range: 0-59 11-Nxf-274288:40 Amylase (55087) Comments: PATIENT NOT FASTINGPERFORMED BY: CorpU [facility] Bylrgo5357 Re-APPAtrium Health [facility]son [id number] Information: [id number] Amylase, Serum 104 U/L (Normal) Range: 31-124 2-Vkx-889214:54 Sputum Culture (51898) Comments: PATIENT NOT FASTINGPERFORMED BY: MONA [facility] Xqszpt9695 [place] RoadDublin [place] [id number] Information: SRC: THROAT [id number] Result 1 RRF (Normal) Comments: Routine respiratory rajwinder Lower Respiratory Culture Final report (Normal) 8-Mmb-701328:55 Pathology Report Comments: PERFORMED BY: KWCYT [facility] [place] Cyto Sebzp92390 [employer] [facility] [id number] BY: [facility] Dermatopathology Achyacw[address] [id number] Information: [id number] See MATER Comments: Material submitted: .PUNCH BIOPSY [...] IS NEGATIVE FOR FUNGAL FORMS.Pathologist provided ICD-9:692.9CPT .194252, 470705 00-Zrl-872737:41 Lipid Panel (09879) Comments: PATIENT WAS FASTINGPERFORMED BY: LabCoCooper University HospitalAdwgjl6550 [facility] [id number] LDL/HDL Ratio 1.0 {ratio_units} (Normal) Range: 0.0-3.2 [...] - 169 >19 years 100 - 199 75-Bop-443567:41 Metabolic Panel, Comments: PATIENT WAS FASTINGPERFORMED BY: [facility] [id number] Information: [id number] Comprehensive (55806) ALT (SGPT) 13 [iU]/L (Normal) Range: 0-32 [...] Glucose, Serum 97 mg/dL (Normal) Range: 65-99 22-Eyb-219625:41 Vitamin B-12 (cyanocobalamin) Comments: PATIENT WAS FASTINGPERFORMED BY: Fanattacblin [place] [id number] (19279) Vitamin B12 632 pg/mL (Normal) Range: 211-946 :41 CBC (Auto) (29540) Comments: PATIENT WAS FASTINGPERFORMED BY: [facility]6370 [facility] [id number] Platelets 270 {x10E3/uL} (Normal) Range: 150-379 RDW 13.9 % (Normal) Range: 12.3-15.4 MCHC 32.8 g/dL (Normal) Range: 31.5-35.7 MCH 29.5 pg (Normal) Range: 26.6-33.0 MCV 90 fL (Normal) Range: 79-97 Hematocrit 36.6 % (Normal) Range: 34.0-46.6 Hemoglobin 12.0 g/dL (Normal) Range: 11.1-15.9 RBC 4.07 {x10E6/uL} (Normal) Range: 3.77-5.28 WBC 8.5 {x10E3/uL} (Normal) Range: 3.4-10.8 :41 Ferritin (45822) Comments: PATIENT WAS FASTINGPERFORMED BY: LabTr[facility] Hospital6370 [facility] [id number] Ferritin, Serum 28 ng/mL (Normal) Range: 15-150 :41 CALCIFIDIOL (25586) VIT D 25 Comments: PATIENT WAS FASTINGPERFORMED BY: LabTr[facility] Hospital6370 [facility] [id number] Vitamin D, 25-Hydroxy 24.3 ng/mL (Abnormal) Range: 30.0-100.0 Comments: Vitamin D deficiency has been defined by the [place] of[place]icine and an Endocrine Society practice guideline as alevel of serum 25-OH vitamin D less than 20 ng/mL (1,2).The Endocrine Society went on to further define vitamin Dinsufficiency as a level between 21 and 29 ng/mL (2).1. IOM ([place] of Medicine). 2010. Dietary reference intakes for calcium and D. [place]: The National Academies Press.2. Candelaria MF, Janey ELIAS, Yolande GROSS et al. Evaluation, treatment, and prevention of vitamin D deficiency: an Endocrine Society clinical practice guideline. JCEM. 2010; 96(7):1911-30. :55 CBC-Complete Blood Cnt No Diff Comments: Test performed at:[place] [address] [place] [address] MPV 9.5 fL (Normal) Range: 6.2-12.0 PLT [...] Range: 4.4-11.0 :55 Ferritin Comments: Test performed at:[facility] Qflclxngvs[address] [place] [address] [place] [address] FERRITIN 23 ng/mL (Normal) Range: 8-252 :55 Iron Comments: Test performed at:[facility] [address] [place] [address] IRON 75 ug/dL (Normal) Range: 50-170 :53 CBC W/Diff, Automated Comments: Test performed at:[facility] Donpwakwtw35[address] [place] [address] Absolute Lymph 1.57 {X10_3/ul} (Normal) Range: 0.83-4.51 [...] 4.2-5.4 WBC 3.8 K/mm3 (Abnormal) Range: 4.4-11.0 32-Ilm-432006:53 Comprehensive Metabolic Profil Comments: Test performed at:[facility] Utgxraeypz6957 [place] [address] GAP 5 (Normal) Range: 5-15 CO2 29.0 [...] 7-18 GLU 99 mg/dL (Normal) Range: 70-110 89-Jrm-898571:53 Ferritin Comments: Test performed at:[facility] Ouekxmwjtv0242 [place] [address] FERRITIN 13 ng/mL (Normal) Range: 8-252 :53 Lipid Profile Comments: Test performed at:[facility] Gudupxlfta65[address] [place] [address] VLDL 19 mg/dL (Normal) Range: [...] > 2000 pg/mL (Abnormal) Comments: Test performed at:[facility] Aynbzgrtas5[address] [place] [address] Range: 211-911 59-Uzt-060381:46 CBC W/Diff, Automated Comments: Test performed at:[facility] Utbbygukbu8812 [place] [address] Absolute Lymph 1.87 {X10_3/ul} (Normal) [...] 4.2-5.4 WBC 4.1 K/mm3 (Abnormal) Range: 4.4-11.0 61-Hgc-359482:46 Comprehensive Metabolic Profil Comments: Test performed at:[facility] Tecrjetzmt8209 [address] [place], [place] [address] GAP 4 (Abnormal) Range: 5-15 CO2 28.0 [...] 7-18 GLU 70 mg/dL (Normal) Range: 70-110 28-Lgo-084623:46 Vitamin D,25 Hydroxy Comments: Test performed at:[facility] Pbcgoirhnc6256 [place] [address] Vitamin D 25-OH 30.6 ng/mL (Normal) Comments: Vitamin D 25(OH) Status Range Deficiency <20 ng/mL (50nmol/L) Insuffciency 20 - 30 ng/mL (50 - 75 nmol/L) Sufficiency 30 - 100 ng/mL (75 - 250 nmol/L) Toxicity >100 ng/mL (>250 nmol/L) 13-Gch-085041:04 CALCIFIDIOL (48682) VIT D Comments: PATIENT NOT FASTINGPERFORMED BY: [facility] Wuocfw8526 [facility] [id number] Information: [id number] 25 Vitamin D, 25-Hydroxy 19.2 ng/mL (Abnormal) Range: 30.0-100.0 Comments: Vitamin D deficiency has been defined by the [place] of[place]icine and an Endocrine Society practice guideline as alevel of serum 25-OH vitamin D less than 20 ng/mL (1,2).The Endocrine Society went on to further define vitamin Dinsufficiency as a level between 21 and 29 ng/mL (2).1. IOM ([place] of [place]). 2010. Dietary reference intakes for calcium and D. [place]: The National Academies Press.2. Candelaria MF, Janey ELIAS, Yolande GROSS, et al. Evaluation, treatment, and prevention of vitamin D deficiency: an Endocrine Society clinical practice guideline. JCEM. 2010; 96(7):1911-30. 56-Gay-974046:04 Ferritin (26844) Comments: PATIENT NOT FASTINGPERFORMED BY: LabCoHeroes2uQwxvlv4930 [facility] [id number] Ferritin, Serum 34 ng/mL (Normal) Range: 15-150 50-Mhb-163497:05 METABOLIC PANEL, COMPREHENSIVE Comments: PATIENT NOT FASTINGPERFORMED BY: CorpU [facility] Mmafnr8550 [facility] [id number] (28382) ALT (SGPT) 10 [iU]/L (Normal) Range: 0-32 [...] Glucose, Serum 86 mg/dL (Normal) Range: 65-99 80-Zlz-486603:05 CBC WITH MANUAL DIFF Comments: PATIENT NOT FASTINGPERFORMED BY: MONA PokenCooper University HospitalPrzilx2093 [facility] [id number] Information: [id number],2ND ORDER NO DRAW F EE (79699) Immature Grans (Abs) 0.0 {x10E3/uL} (Normal) Range: [...] 3.77-5.28 WBC 5.2 {x10E3/uL} (Normal) Range: 3.4-10.8 90-Szp-341323:05 CALCIFIDIOL (12417) VIT D 25 Comments: PATIENT NOT FASTINGPERFORMED BY: [facility]ronic[facility] Hospital6370 [facility] [id number] Vitamin D, 25-Hydroxy 19.6 ng/mL (Abnormal) Range: 30.0-100.0 Comments: Vitamin D deficiency has been defined by the [place] of[place]icine and an Endocrine Society practice guideline as alevel of serum 25-OH vitamin D less than 20 ng/mL (1,2).The Endocrine Society went on to further define vitamin Dinsufficiency as a level between 21 and 29 ng/mL (2).1. IOM ([place] of [place]). 2010. Dietary reference intakes for [...] CHOL 168 mg/dL (Normal) Comments: <200 mg/dL Pjzecdlme274-271 mg/dL Borderline>240 mg/dL High Risk 8-Mns-056210:51 VITD 38.8 mg/mL (Normal) Comments: Vitamin D 25(OH) Status RangeDeficiency <20 ng/mL (50nmol/L)Insuffciency 20 - 30 ng/mL (50 - 75 nmol/L)Sufficiency 30 - 100 ng/mL (75 - 250 nmol/L)Toxicity >100 ng/mL (>250 nmol/L) 50-Ebu-801976:07 Lipase (54770) Comments: PERFORMED BY: [facility]attacAt[facility] Health [facility] [id number] Lipase, Serum 67 U/L (Abnormal) Range: 0-59 20-Xwc-860902:07 Amylase (97731) Comments: PERFORMED BY: FanattacAt[facility] Health [facility] [id number] Amylase, Serum 92 U/L (Normal) Range: 31-124 41-Znv-086592:11 Urinalysis, Office (72773) UA - LEUKOCYTE ESTERASE Negative (Normal) UA - NITRITE Negative (Normal) URINE UROBILINGN YANCI TIMED Normal mg/dL (Normal) UA - PROTEIN Negative mg/dL (Normal) UA - PH 5 (Abnormal) Comments: 5.5 UA - BLOOD Negative (Normal) UA - SPECIFIC GRAVITY 1.015 (Normal) UA - KETONES 15 mg/dL (Abnormal) UA - BILIRUBIN Small (Normal) UA - GLUCOSE Negative (Normal) 60-Rtt-514586:28 GRETTA CULTURE-OTHER (66926) Comments: PATIENT NOT FASTINGPERFORMED BY: CorpU [facility] [id number] Information: SRC:THRT [id number] Result 1 RRF (Normal) Comments: Routine respiratory rajwinder Upper Respiratory Culture Final report (Normal) 16-Slh-042366:32 Rapid Strep Test, Office (83044) Rapid Strep Test, Office Negative (Normal) 23-Egq-251292:02 Iron Binding Capacity Comments: PATIENT NOT FASTINGPERFORMED BY: LabCoCo[facility] HospitalUlwhvi4214 [facility] [id number] Information: [id number] (TIBC) (84654) Iron Saturation 6 % (Abnormal) Range: 15-55 Iron, Serum 32 ug/dL (Abnormal) Range: 35-155 UIBC 461 ug/dL (Abnormal) Range: 150-375 Iron Bind.Cap.(TIBC) 493 ug/dL (Abnormal) Range: 250-450 68-Rvm-198690:02 Ferritin (98992) Comments: PATIENT NOT FASTINGPERFORMED BY: LabCoCooper University HospitalHjkkpq5771 [facility] [id number] Ferritin, Serum 7 ng/mL (Abnormal) Range: 15-150 :19 PREMA 80 U/L (Normal) Range: 25-115 2-Kop-688671:19 B12 386 pg/mL (Normal) Range: 211-911 :19 [...] CHOL 181 mg/dL (Normal) Comments: <200 mg/dL Nwggxakbh329-379 mg/dL Borderline>240 mg/dL High Risk :19 VITD [...] 7-18 GLU 79 mg/dL (Normal) Range: 70-110 41-Rof-338398:18 TS Ab SCREEN GEL NEGATIVE (Normal) SCREEN CELL I NEGATIVE (Normal) SCREEN CELL II NEGATIVE (Normal) SCREEN CELL III NEGATIVE (Normal) BLOOD TYPE GEL O POSITIVE (Normal) 08-Hsu-120571:17 Metabolic Panel, Comments: PATIENT NOT FASTINGPERFORMED BY: MONA [facility] Vzgmqt9145 [place] [id number] Information: [id number] [facility] (53727) ALT (SGPT) 13 [iU]/L (Normal) Range: 0-32 [...] U/L (Normal) Range: 25-115 6 :1 LUZ AMRINA 10 ng/mL (Normal) Range: 8-252 6 :1 [...] :41 PREMA 80 U/L (Normal) Range: 25-115 28-Iin-562853:41 CBCD ABSOLUTE NEUT 3.9 3/uL (Normal) Range: [...] s (Normal) Range: 11.9-14.4 :41 VIT D,25 61487 20.3 ng/mL (Abnormal) Range: 30.0-100.0 Comments: Vitamin D deficiency has been defined by the [place] of[place]icine and an Endocrine Society practice guideline as alevel of serum 25-OH vitamin D less than 20 ng/mL (1,2).The Endocrine Society went on to further define vitamin Dinsufficiency as a level between 21 and 29 ng/mL (2).1. IOM ([place] of [place]). 2010. Dietary reference intakes for calcium and D. [place]: The National Academies Press.2. Candelaria MF, Janey NC, Yolande GROSS, et al. Evaluation, treatment, and prevention of vitamin D deficiency: an Endocrine Society clinical practice guideline. JCEM. 2010; 96(7): 1911-30.Performed at: [address] [id number] Director: Yony San MD, Phone: [phone] at: [facility] LabCo[address] [id number] Director: Era Tinoco MD, Phone: [phone] :41 VITD 1,25 54439 44.5 pg/mL (Normal) Range: 10.0-75.0 :09 PREMA [...] Please note:LIPASE revised reference range effective 09. 33-Mdq-973733:05 LIPID Comments: COMMENTS: FAX RESULTS TO DR [...] 200-240 mg/dL Borderline >240 mg/dL High Risk 91-Eaf-712659:54 BILAT SCRN DIGITAL & CAD Radiology Report [...] 11/20/10 011 Sign by: Bartolome Patel MD 30-Ava-786231:54 DEXA BONE DENSITY STUDY (HP) Radiology Report See Note (Normal) Comments: CLINICAL:Female, 55 years old. The patient is postmenopausal. EXAMINATION:DUAL ENERGY X-RAY ABSORPTIOMETRY / DEXA. TECHNIQUE:Bone Mineral Density (BMD) measurements of lumbar spine and bila teralhipswer e obtained using a Thrill scanner.. COMPARISON:Comparison is made with prior study [...] on 11/20/1030 Sign by: Bartolome Patel MD 1-Bru-801116:46 DESIRAE DIR SEMI-QL Comments: ORDERED CBC LUZ MARINA FEDRCOREY ORDERED CMP CBCD CRP ESR VITD HEPB SURF AB CCPHEPB IRINA AG HEPC DESIRAE RA HEPB CORE IGM UAC SCL70 ANTOINE ANTI JOANTICENT AB SSA SSB DNA UAPROTEIN C3 C4 TSH DESIRAE DIRECT 56 AU/mL (Normal) 7-Jsi-734185:46 ANEX PANEL Comments: ORDERED CBC LUZ MARINA FEDRCOREY ORDERED CMP CBCD CRP ESR VITD HEPB SURF AB CCPHEPB IRINA AG HEPC DESIRAE RA HEPB CORE IGM UAC SCL70 ANTOINE ANTI JOANTICENT AB SSA SSB DNA UAPROTEIN C3 C4 TSH; appt 11/02/10 GRADUATE CIVIL ENGINEER AB 14 AU/mL (Normal) ANTI-TORRES AB 7 AU/mL (Normal) 7-Rtc-241078:46 ANTI JO1 Comments: ORDERED CBC LUZ MARINA FEDRCOREY ORDERED CMP CBCD CRP ESR VITD HEPB SURF AB CCPHEPB IRINA AG HEPC DESIRAE RA HEPB CORE IGM UAC SCL70 ANTOINE ANTI JOANTICENT AB SSA SSB DNA UAPROTEIN C3 C4 TSH ANTI LAMAR 7 AU/mL (Normal) 4-Blv-516746:46 ANTI SCL 70 Comments: ORDERED CBC LUZ MARINA FEDRCOREY ORDERED CMP CBCD CRP ESR VITD HEPB SURF AB CCPHEPB IRINA AG HEPC DESIRAE RA HEPB CORE IGM UAC SCL70 ANTOINE ANTI JOANTICENT AB SSA SSB DNA UAPROTEIN C3 C4 TSH ANTI-SCL 70 14 AU/mL (Normal) :46 ANTI-CCP 046274 < 1 {units} (Normal) Comments: ORDERED CBC [...] DESIRAE RA HEPB CORE IGM UAC SCL70 ANOTINE ANTI JOANTICENT AB SSA SSB DNA UAPROTEIN [...] 0.6-1.0 GLU 91 mg/dL (Normal) Range: 70-110 0-Xih-101918:46 ESR Comments: ORDERED CBC LUZ MARINA RODRIGUEZ ORDERED CMP CBCD CRP ESR VITD HEPB SURF AB CCPHEPB IRINA AG HEPC DESIRAE RA HEPB CORE IGM UAC SCL70 ANTOINE ANTI JOANTICENT AB SSA SSB DNA UAPROTEIN C3 C4 TSH SED RATE 5 mm/h (Normal) Range: 0-30 1-Eyn-962404:46 FERRITIN 9 ng/mL (Normal) Comments: ORDERED CBC LUZ MARINA RODRIGUEZ ORDERED CMP CBCD CRP ESR VITD HEPB SURF AB CCPHEPB IRINA AG HEPC DESIRAE RA HEPB CORE IGM UAC SCL70 ANTOINE ANTI JOANTICENT AB SSA SSB DNA UAPROTEIN C3 C4 TSH Range: 8-252 :46 HB CORE [id number] SeeNote (Normal) Comments: ORDERED CBC LUZ MARINA FEDRCOREY ORDERED CMP CBCD CRP ESR VITD HEPB SURF AB CCPHEPB IRINA AG HEPC DESIRAE RA HEPB CORE IGM UAC SCL70 ANTOINE ANTI JOANTICENT AB SSA SSB DNA UAPROTEIN C3 C4 TSH Comments: Result: Negative Performed at: - [facility] [address] [id number] Director: Era Tinoco MD, Phone: [phone] at: - [facility] [address] [id number] Director: Yony San MD, Phone: [phone] :46 HBsAg [id number] Comments: ORDERED CBC LUZ [...] of antibody present. :46 HEP C AB [id number] <0.1 (Normal) Comments: ORDERED CBC LUZ MARINA [...] DNA UAPROTEIN C3 C4 TSH Range: 0.358-3.74 [id number] VIT D,25 10559 9.3 ng/mL (Abnormal) Comments: ORDERED CBC LUZ MARINA MICHAEL ORDERED CMP CBCD CRP ESR VITD HEPB SURF AB CCPHEPB IRINA AG HEPC DESIRAE RA HEPB CORE IGM UAC SCL70 ANTOINE ANTI JOANTICENT AB SSA SSB DNA UAPROTEIN C3 C4 TSH Range: 32.0-100.0 Comments: Recent studies consider the lower limit of 32.0 ng/mL to jayleen threshold for optimal health.Ortiz SANCHEZ. J Nutr. 2004;135(2):317-22. [id number] CBC Comments: COMMENTS: FAX RESULTS TO DR. [...] DRAWRESULTS FAXED 07/17/10 VLADIMIR SALAMANCA. Range: 8-252 [id number] IRON 125 ug/dL (Normal) Comments: COMMENTS: FAX RESULTS TO DR. CECI FARIAS DRAWRESULTS FAXED 07/17/10 VLADIMIR SALAMANCA. Range: 50-170 [id number]:20 CBC With Differential/Platelet Comments: PERFORMED BY: [facility] [id number] [facility] [id number] Baso (Absolute) 0.0 {x10E3/uL} (Normal) Range: 0.0-0.2 [...] 11.7-15.0 WBC 5.3 {x10E3/uL} (Normal) Range: 4.0-10.5 79-Bfc-568931:20 Comp. Metabolic Panel (14) Comments: PERFORMED BY: [facility] [id number] ALT (SGPT) 18 [iU]/L (Normal) Range: 0-40 [...] Serum 14 ng/mL (Normal) Comments: PERFORMED BY: [employer]6370 [facility] [id number] 14:20 Range: 13-150 01-Hdc-927099:20 Iron and TIBC Comments: PERFORMED BY: [employer] [facility] [id number] Iron Saturation 23 % (Normal) Range: 15-55 Iron, Serum 106 ug/dL (Normal) Range: 35-155 UIBC 361 ug/dL (Normal) Range: 150-375 Iron Bind.Cap.(TIBC) 467 ug/dL Range: 250-450 (Abnormal) 69-Szu-244899 TSH 1.760 {uIU/mL} Comments: [facility]FORMED BY: [id number] [place] [id number] :20 (Normal) Range: 0.450-4.500 C DIF TOXIN/AG See Note (Normal) Comments: PT COLLECTED SPECIMEN 12/30 @2300 :45 Comments: C. DIFF ANTIGENS NEGATIVE :45 CUL STOOL/SHIG Comments: PT COLLECTED SPECIMEN 12/30 @2300 CULTURE, STOOL See Note (Normal) Comments: COPY OF REPORT SENT TO INFECTION CONTROL 01/03/10 [facility]959[facility]. No Salmonella, Shigella or Yersinia isolated.No [...] Crytosporidium parvum,Cyclospora, or Microsporidia.__ TESTING PERFORMED AT [facility]. ORIGINAL REPORT ONFILE IN LAB [...] Comments: COMMENTS: IV THERAPY DRAWING Range: 25-115 20-Cld-978407:10 LIPASE 199 U/L (Normal) Comments: COMMENTS: IV THERAPY DRAWING Range: 70-290 Comments: Please note:LIPASE revised reference range effective 09. 87-Qat-172977:10 RENAL Comments: COMMENTS: IV THERAPY DRAWING CO2 [...] (Normal) GLU 102 mg/dL (Normal) Range: 70-110 28-Dsu-982420:37 OCCULT BLOOD FECES SCREEN (49239) OCCULT BLOOD FECES SCREEN negative (Normal) 79-Qms-282388:03 CBCD,SMEAR DIFF PLT EST SeeNote (Normal) Comments: [...] 6.4-8.2 GLU 94 mg/dL (Normal) Range: 70-110 77-Yga-794201:03 FERRITIN 12 ng/mL (Normal) Range: 8-252 :03 IRON 128 ug/dL (Normal) Range: 50-170 19-Eeq-283597:03 LIPID LDL 86 mg/dL (Normal) Range: 0-130 VLDL 18 mg/dL (Normal) Range: 5-40 HDL 79 mg/dL (Normal) Comments: Reference RangeHDL <40 mg/dL Low HDL CholesterolHDL >or= 60 mg/dL High HDL Cholesterol CHOL 183 mg/dL (Normal) Comments: <200 mg/dL Dnyiihblu602-195 mg/dL Borderline>240 mg/dL High Risk TRIG 88 mg/dL (Normal) Comments: Serum Triglycerides Reference IntervalNormal <150 mg/dLBorderline high 150 - 199 mg/dLHigh 200 - 499 mg/ dLVery High > or = 500 mg/dL 78-Har-938149:03 VITAMIN B12 342 pg/mL (Normal) Range: 254-1320 10-Apr-20090:00 FLU A+B DIRECT See Note (Normal) Comments: Negative test results should be confirmed by culture. Order Rapid Viral Culture for Influenzae A+B (110328) if clinically indicated. INFLUENZA ANTIGEN,DIRECT Presumptive NEGATIVE for Influenza A/B Antigen (See Note) 40-Qkj-993054:43 CHEST, PA AND LATERAL Radiology Report See Note (Normal) Comments: Exam Number: [id number] CLINICAL DATAInterstitial lung disease, cough. CHEST PA [...] pneumonia. Possible bronchitis. Reported By: FLORINDA CAMPOS 61-Owh-855073:45 L/S SPINE,MIN 4 VIEWS Radiology Report See Note (Normal) Comments: Exam Number: [id number] CLINICAL PROBLEMLow back pain post fall. LUMBAR [...] and spondylosis. Reported By: AROLDO TILLMAN M.D. 56-Wun-499653:44 KNEE,4 OR MORE VIEWS Radiology Report See Note (Normal) Comments: Exam Number: [id number] CLINICAL PROBLEMPain both knees post fall. FOUR [...] patellofemoral compartments. Reported By: AROLDO TILLMAN M.D. 80-Xdh-706695:44 KNEE,4 OR MORE VIEWS Radiology Report See Note (Normal) Comments: Exam Number: [id number] CLINICAL PROBLEMLeft knee pain status post fall. [...] Order Rapid Viral Culture for Influenzae A+B ([id number]) if clinically indicated. INFLUENZA ANTIGEN,DIRECT Presumptive NEGATIVE for Influenza A/B Antigen (See Note) 12-Sep-2008 PREMA 66 U/L (Normal) Range: 25-115 12:11 09-Arq-328418:11 CBCD BASO% 0.2 % (Normal) Range: 0-1 [...] 4.2-5.4 WBC 4.2 K/mm3 (Abnormal) Range: 4.4-11.0 78-Kuo-995218:11 COMP METABOLIC A/G 1.2 {RATIO} (Normal) Range: [...] :11 MG 1.9 mg/dL (Normal) Range: 1.5-2.2 75-Yka-247269:00 CBCD BASO% 0.3 % (Normal) Range: 0-1 [...] T PROT 6.7 g/dL (Normal) Range: 6.4-8.2 61-Mhs-999735:00 METHYLM 565561 330 nmol/L (Normal) Range: 73-376 Comments: The reference range for methylmalonic acid has been set at+3sd above the mean for healthy blood bank donors. In theclinical assessment of patients with megaloblastic anemiasa cutoff of +3sd provides gre ater specificity in thediagnosis of the vitamin deficiency states, despite thesacrifice of some sensitivity.Performed At: [address] [id number] 4-Nxy-309402:55 Lower Respiratory Culture Comments: Clinical Information: SRC:SP PERFORMED BY: [facility] [id number] Lower Respiratory Culture Final report (Normal) Result 1 RRF (Normal) Comments: Routine respiratory rajwinder 04-Rwb-78091:3 PREMA 62 U/L (Normal) Range: 25-115 6 :36 DESIRAE-D 863313 DESIRAE-DIRECT 23 AU/mL (Normal) Range: 0-99 Comments: [...] {IU/mL} (Normal) Range: 0.0-13.9 Comments: Performed At: [address] [id number] :36 TSH 1.76 {uIU/mL} (Normal) Range: 0.34-4.82 :29 HgA1C , Office (44622) HgA1C , Office 5.5 % (Normal) Range: 4.6 - 7.1 6-Zje-379560:29 Blood Glucose , Office (86064) Blood Glucose , Office 108 (Normal) :51 CHEST, PA AND LATERAL Radiology Report See Note (Normal) Comments: Exam Number: [id number] PA AND LATERAL CHEST HISTORY Being done [...] acute infiltrate. Reported By: JERARDO BEAULIEU M.D. 4-Jgw-602651:57 Rapid Flu (35640 x 2) INFLUENZA IMMUNOASSY DIRECT OPTICAL OBSERV negative (Normal) Comments: aw 72-Kei-213455:57 LIPID CHOL 186 mg/dL (Normal) Comments: <200 [...] mg/dL VLDL 43 mg/dL (Abnormal) Range: 5-40 55-Tke-974098:57 VITAMIN B12 370 pg/mL (Normal) Range: 211-911 :57 VITD 1,25 89975 69.6 (Normal) Comments: Performed At: [address] [id number] 52-Rqc-758069:47 CHEST, PA AND LATERAL Radiology Report See Note (Normal) Comments: Exam Number: [id number] PA AND LATERAL CHEST HISTORY Being done [...] Culture Comments: Clinical Information: SRC:TH PERFORMED BY: [facility]6[address] [facility] [id number] Result 1 RRF (Normal) Comments: Routine respiratory rajwinder Upper Respiratory Culture Final report (Normal) 9-Hzn-591623:39 CHEST WITHOUT CONTRAST Radiology Report See Note (Normal) Comments: Exam Number: [id number] CT SCAN OF CHEST HISTORYNeoplasm of uncertain [...] PREMA 73 U/L (Normal) Range: 25-115 :01 68-Tgz-917423:01 CBCD BASO% 0.3 % (Normal) Range: 0-1 [...] 11.6-14.6 WBC 4.7 K/mm3 (Normal) Range: 4.4-11.0 89-Xqe-188996:01 COMP METABOLIC A/G 1.1 {RATIO} (Normal) Range: [...] mg/dL VLDL 15 mg/dL (Normal) Range: 5-40 01-Hsd-330512:40 BC No growth in 5 days. Comments: COMMENTS: ROOM 12 (Normal) 32-Hlq-193308:20 COMPLETE UA Comments: COMMENTS: ROOM 12HOLD IN [...] WBC 0 SEEN {/hpf} (Normal) Range: 0-5 98-Ows-969256:10 BMP Comments: COMMENTS: ROOM 12 BUN 8 [...] 3.5-5.1 NA 132 mmol/L (Abnormal) Range: 136-145 40-Enj-047633:10 CBCD Comments: COMMENTS: ROOM 12 BASO% 0.2 [...] (Normal) WBC 10.6 K/mm3 (Normal) Range: 4.4-11.0 16-Zye-482842:10 LIPASE 212 U/L (Normal) Comments: COMMENTS: ROOM 12 Range: 114-286 02-Jcn-393840:10 LIVER Comments: COMMENTS: ROOM 12 ALB 3.4 [...] 29 [iU]/L (Abnormal) Range: 30-65 :07 DESIRAE-D 472239 DESIRAE-DIRECT 24 U/mL (Normal) Range: 0-99 Comments: Negative <100 Equivocal 100 - 120 Positive >120Performed At: [facility]6[address] [place], [place] [id number] At: [address] [id number] :07 See Note (Normal) Comments: CHECK BLOOD [...] 5.8 K/mm3 (Normal) Range: 4.4-11.0 :07 HISTOPL 559124 SeeNote (Normal) Comments: Result: Negative : RA LATEX 6502 8.6 {IU/mL} (Normal) Range: 0.0-13.9 16-Rhl-229357:24 CHEST, PA AND LATERAL Radiology Report See Note (Normal) Comments: Exam Number: [id number] CHEST, PA AND LATERAL HISTORYFever and cough. COMPARISONNone. FINDINGSThere is an indwelling Dgkk-I-Bnquuygq on the right side particularlyin the SVC. The heart, aorta, and media stinum are normal. Lungs areclear. There is no evidence of consolidation, effusion, congestion,or nodules. There are clips in the region of the esophageal hiatus. IMPRESSIONClear lungs. Reported By: AN YOUNG M.D. 70-Ulk-903075:0 BC No growth in 5 days. 0 (Normal) :5 PREMA 71 U/L (Normal) Range: 25-115 0 65-Ckz-239999:5 BC No growth in 5 days. 0 [...] mm/h (Normal) Range: 0-30 :02 Urinalysis, Office (22985) Comments: ABn signed CH UA - BILIRUBIN [...] pg/mL (Abnormal) Range: 211-911 Comments: Performed At: [address] [id number] 7-Pmj-966144:00 CULTURE, THROAT See Note (Normal) Comments: Normal throat rajwinder isolated. No beta-hemolyticstreptococcus isolated. 7-Tzi-190692:52 Urinalysis, Office (34706) UA - BILIRUBIN Negative (Normal) UA - [...] and of unspecified site Planned Observations AMYLASE (23192)Indication: Chronic pancreatitis On: 03-Jyf-577411:48 Request LIPASE (47480)Indication: Chronic pancreatitis On: 41-Huz-494436:48 Request METABOLIC PANEL, COMPREHENSIVE (55178)Indication: Chronic pancreatitis On: 58-Kew-253748:47 Request LIPOPROTEIN, BLD, BY NMR (95494)Indication: Hyperlipidemia On: 78-Zqa-358510:47 Request Ferritin (34354)Indication: Iron deficiency anemia due to dietary causes On: 42-Ezf-225473:51 Request URINE GRETTA CULTURE-IDENTIFICATN (16095)Indication: Urgency incontinence On: 25-Sht-529859:58 Request LIPASE (39583)Indication: Chronic pancreatitis On: :51 Request AMYLASE (49396)Indication: Chronic pancreatitis On: :50 Request URINALYSIS (75318)Indication: Chronic pancreatitis On: :50 Request CBC WITH MANUAL DIFF (33941)Indication: Chronic pancreatitis On: :50 Request Metabolic Panel, Comprehensive (06741)Indication: Chronic pancreatitis On: :50 Request PT (PROTHROMBIN TIME) (58305)Indication: PFO (patent foramen ovale) On: 11-Tfg-008798:36 Request Vitamin B-12 (cyanocobalamin) (20776)Indication: S/P gastric bypass On: :21 Request Ferritin (28392)Indication: Iron deficiency anemia due to dietary causes On: : Request CBC, Platelets & Auto Diff (67272)Indication: Chronic pancreatitis On: :21 Request Metabolic Panel, Comprehensive (16371)Indication: Chronic pancreatitis On: 8-Xeg-907195:21 Request CALCIFIDIOL (54236) VIT D 25Indication: Vitamin D deficiency, unspecified On: 65-Avi-39318:55 Request Comments: re check in 8 weeks Sed Rate Erythrocyte (19107)Indication: Fever On: 41-Jvr-124486:39 Request URINALYSIS (85245)Indication: Fever On: :33 Request URINE GRETTA CULTURE-IDENTIFICATN (52661)Indication: Fever On: 02-Bjv-115419:33 Request CALCIFIDIOL (71144) VIT D 25Indication: Vitamin D deficiency, unspecified On: :32 Request CBC, Platelets & Auto Diff (84396)Indication: Iron deficiency anemia due to dietary causes On: :32 Request Ferritin (83793)Indication: Iron deficiency anemia due to dietary causes On: 60-Bgm-921209:32 Request GRETTA CULTURE-BLOOD (46288)Indication: Fever On: 72-Ngd-147774:30 Request Comments: ONE FROM PORT AND ONE PERIPHERAL CALCIFIDIOL (47161) VIT D 25Indication: Vitamin D deficiency, unspecified On: 99-Pdv-628565:24 Request FERRITIN (56814)Indication: Iron deficiency anemia due to dietary causes On: 70-Wbp-671260:22 Request EBV ANTIBODY VCA/EA 02453 (44549)Indication: Fatigue On: 16-Klz-764511:31 Request Comments: please do VCA IGM Ferritin (78437)Indication: Iron deficiency anemia due to dietary causes On: 33-Rmg-702115:00 Request CALCIFIDIOL (83399) VIT D 25Indication: Vitamin D deficiency, unspecified On: 44-Tex-849779:00 Request EBV Panel (78500)Indication: Pharyngitis, acute On: 28-Jhu-959296:58 Request Influenza A&B Viral Culture (44066)Indication: Fever On: 6-Vjr-977206:34 Request GRETTA CULTURE-OTHER (51420)Indication: Fever On: 4-Zii-846565:33 Request Rapid Strep Test, Office (57275)Indication: Fever On: 8-Dta-978124:18 Request Troponin I (33065)Indication: Chest pain at rest On: 99-Jbu-512710:43 Request Comments: pls add to labs already done MYOGLOBIN (06038)Indication: Chest pain at rest On: 59-Krn-004805:25 Request CPK MB FRACTION (91329)Indication: Chest pain at rest On: 55-Mxg-042308:25 Request Sed Rate Erythrocyte (48813)Indication: Chest pain at rest On: :25 Request CBC WITH MANUAL DIFF (63979)Indication: Chest pain at rest On: 11-Rjg-462536:25 Request CALCIFEDIOL (15284)Indication: OTHER AND UNSPECIFIED POSTSURGICAL NONABSORPTION On: 9-Fiq-173431:12 Request PARATHORMONE (33073)Indication: OTHER AND UNSPECIFIED POSTSURGICAL NONABSORPTION On: 9-Cly-757440:12 Request Magnesium (87432)Indication: OTHER AND UNSPECIFIED POSTSURGICAL NONABSORPTION On: 3-Uqw-742405:12 Request Phosphorus (46694)Indication: OTHER AND UNSPECIFIED POSTSURGICAL NONABSORPTION On: 6-Uqp-900828:12 Request IRON (53631)Indication: OTHER AND UNSPECIFIED POSTSURGICAL NONABSORPTION On: :12 Request FERRITIN (13030)Indication: OTHER AND UNSPECIFIED POSTSURGICAL NONABSORPTION On: :12 Request ZINC, BLOOD (31313)Indication: OTHER AND UNSPECIFIED POSTSURGICAL NONABSORPTION On: :12 Request VITAMIN A (28570)Indication: OTHER AND UNSPECIFIED POSTSURGICAL NONABSORPTION On: :12 Request TSH (56841)Indication: OTHER AND UNSPECIFIED POSTSURGICAL NONABSORPTION On: : Request MAGNESIUM (03834)Indication: OTHER AND UNSPECIFIED POSTSURGICAL NONABSORPTION On: : Request Folic Acid Serum (59614)Indication: OTHER AND UNSPECIFIED POSTSURGICAL NONABSORPTION On: : Request CHROMIUM (91063)Indication: OTHER AND UNSPECIFIED POSTSURGICAL NONABSORPTION On: : Request ASSAY, HOMOCYSTINE (11170)Indication: OTHER AND UNSPECIFIED POSTSURGICAL NONABSORPTION On: :12 Request Metabolic Panel, Basic (94770)Indication: Abdominal pain On: 94-Fif-660389:11 Request Comments: do on this tuesday OSMOLALITY URINE (13548)Indication: Abdominal pain On: :11 Request Comments: today in ambulatory OSMOLALITY BLOOD (03716)Indication: Abdominal pain On: 55-Nxu-745024:11 Request Comments: today in ambulatory Lipase (32578)Indication: Abdominal pain On: 68-Bnm-210790:11 Request Comments: today in ambulatory Amylase (25275)Indication: Abdominal pain On: 12-Peq-700304:11 Request Comments: today in ambulatory CBC, Platelets & Auto Diff (67942)Indication: Abdominal pain On: 44-Kur-888557:11 Request Comments: today in ambulatory Metabolic Panel, Comprehensive (68016)Indication: Abdominal pain On: 55-Drh-469167:10 Request Comments: today in ambulatory AMYLASE (87228)Indication: Abdominal pain On: 7-Jtq-987836:12 Request LIPASE (41134)Indication: Abdominal pain On: 5-Hfw-943561:12 Request Ferritin (87366)Indication: Iron deficiency anemia due to dietary causes On: 53-Tte-302207:20 Request Comments: in six months (approximately) Vitamin B-12 (cyanocobalamin) (94683)Indication: Other vitamin B12 deficiency anemia On: :19 Request Comments: in six months (approximately) Lipid Panel (44513)Indication: High blood triglycerides On: :19 Request Comments: in six months (approximately) Metabolic Panel, Comprehensive (75294)Indication: Chronic pancreatitis On: :19 Request Comments: in six months (approximately) Vitamin B-12 (cyanocobalamin) (30971)Indication: Other vitamin B12 deficiency anemia On: 63-Psm-751295:27 Request METABOLIC PANEL, COMPREHENSIVE (43371)Indication: High blood triglycerides On: :19 Request LIPID PANEL (95944)Indication: High blood triglycerides On: :19 Request CBC, Platelets & Auto Diff (28002)Indication: Iron deficiency anemia due to dietary causes On: 63-Sbj-824102:15 Request Ferritin (45005)Indication: Iron deficiency anemia due to dietary causes On: 54-Uek-430175:15 Request Iron (28801)Indication: Iron deficiency anemia due to dietary causes On: 24-Mug-015264:29 Request Comments: recheck in 4 weeks pt needs to be fasting Iron Binding Capacity (TIBC) (04113)Indication: Iron deficiency anemia due to dietary causes On: 27-Uno-435648:29 Request Comments: recheck in 4 weeks pt needs to be fasting Ferritin (86804)Indication: Iron deficiency anemia due to dietary causes On: 98-Nyh-218883:28 Request Comments: recheck in 4 weeks pt needs to be fasting METABOLIC PANEL, COMPREHENSIVE (63773)Indication: High blood triglycerides On: :33 Request LIPID PANEL (60104)Indication: High blood triglycerides On: :33 Request CBC (Auto) (86438)Indication: Iron deficiency anemia due to dietary causes On: :33 Request Ferritin (55530)Indication: Iron deficiency anemia due to dietary causes On: 02-Owu-132397:33 Request Vitamin B-12 (cyanocobalamin) (39178)Indication: Other vitamin B12 deficiency anemia On: 28-Bzg-388366:32 Request CALCIFIDIOL (97623) VIT D 25Indication: Vitamin D deficiency, unspecified On: 22-Rtn-313029:32 Request CULTURE, SPUTUM (11051)Indication: Cough On: 8-Mno-104691:36 Request Iron (06165)Indication: Iron deficiency anemia due to dietary causes On: 20-Xyq-926639:53 Request CALCIFIDIOL (57404) VIT D 25Indication: Vitamin D deficiency, unspecified On: 02-Lxn-538959:02 Request CBC (Auto) (08852)Indication: Iron deficiency anemia due to dietary causes On: 9-Woa-259466:49 Request Metabolic Panel, Comprehensive (85476)Indication: Chronic pancreatitis On: :49 Request Lipid Panel (25802)Indication: High blood triglycerides On: :49 Request Ferritin (42594)Indication: Iron deficiency anemia due to dietary causes On: 3-Jhi-230268:48 Request CALCIFEDIOL (00989)Indication: Vitamin D deficiency, unspecified On: :48 Request Vitamin B-12 (cyanocobalamin) (13044)Indication: Other vitamin B12 deficiency anemia On: 6-Pvo-207649:47 Request Lipase (15704)Indication: Chronic pancreatitis On: :47 Request Amylase (45746)Indication: Chronic pancreatitis On: :47 Request D-Dimer (35594)Indication: Anemia On: 02-Kdg-847967:28 Request Comments: stat Metabolic Panel, Comprehensive (81817)Indication: Anemia On: :16 Request TYPE & SCREEN GEL (46276)Indication: Anemia On: :16 Request CBC with manual diff (63456)Indication: Anemia On: :15 Request Lipase (72073)Indication: Chronic pancreatitis On: :30 Request Amylase (42552)Indication: Chronic pancreatitis On: 48-Cff-791556:30 Request Ferritin (81075)Indication: Iron deficiency anemia due to dietary causes On: 73-Mzq-047785:28 Request LIPASE (25309)Indication: Chronic pancreatitis On: :21 Request AMYLASE (03316)Indication: Chronic pancreatitis On: 2-Ogp-644241:21 Request Lipase (35311)Indication: Chronic pancreatitis On: : Request Amylase (20111)Indication: Chronic pancreatitis On: :12 Request MICROALBUMIN: CREATININE RATIO (51963) AND (81101)Indication: Chronic pancreatitis On: : Request METABOLIC PANEL, COMPREHENSIVE (24606)Indication: Chronic pancreatitis On: : Request LIPID PANEL (31313)Indication: High blood triglycerides On: : Request CBC WITH MANUAL DIFF (53207)Indication: Chronic pancreatitis On: : Request Metabolic Panel, Comprehensive (20807)Indication: Chronic pancreatitis On: :46 Request Lipase (07669)Indication: Chronic pancreatitis On: :46 Request Amylase (90034)Indication: Chronic pancreatitis On: :46 Request CALCIFIDIOL (72838) VIT D 25Indication: Vitamin D deficiency, unspecified On: 2-Ugb-269503:43 Request Ferritin (55391)Indication: Iron deficiency anemia due to dietary causes On: :43 Request CBC (Auto) (34543)Indication: Iron deficiency anemia due to dietary causes On: :43 Request PT (Prothrobim Time) (69704)Indication: AFTERCARE, LONG-TERM USE, ANTICOAGULANTS On: :28 Request Lipase (18981)Indication: Chronic pancreatitis On: : Request Amylase (99222)Indication: Chronic pancreatitis On: : Request Metabolic Panel, Comprehensive (10090)Indication: Chronic pancreatitis On: : Request CBC (Auto) (96368)Indication: Leukopenia On: : Request Lipid Panel (95327)Indication: High blood triglycerides On: :25 Request Iron (40130)Indication: Iron deficiency anemia due to dietary causes On: :23 Request Ferritin (35340)Indication: Iron deficiency anemia due to dietary causes On: :23 Request Vitamin B-12 (cyanocobalamin) (05311)Indication: Other vitamin B12 deficiency anemia On: :23 Request CALCIFIDIOL (67266) VIT D 25Indication: Vitamin D deficiency, unspecified On: :23 Request Lipase (45550)Indication: Chronic pancreatitis On: : Request Amylase (95888)Indication: Chronic pancreatitis On: :21 Request Comments: pls add to labs already drawn Metabolic Panel, Comprehensive (98934)Indication: Chronic pancreatitis On: : Request Ferritin (79766)Indication: Iron deficiency anemia due to dietary causes On: : Request CBC (Auto) (06375)Indication: Chronic pancreatitis On: : Request LIPID PANEL (96348)Indication: High blood triglycerides On: 5-Fur-303600:15 Request Iron Binding Capacity (TIBC) (75617)Indication: Anemia On: :53 Request Iron (93138)Indication: Anemia On: :53 Request Ferritin (80564)Indication: Anemia On: :53 Request CBC (Auto) (13908)Indication: Anemia On: :53 Request Metabolic Panel, Comprehensive (13373)Indication: Chronic pancreatitis On: :53 Request OVA & PARASITE DIR SMEAR (35240)Indication: Diarrhea On: :37 Request LEUKOCYTE COUNT, FECAL (02214)Indication: Diarrhea On: :37 Request C.Difficile, Stool (99079)Indication: Diarrhea On: :37 Request GRETTA CULTURE-STOOL (18173)Indication: Diarrhea On: :37 Request Vitamin B-12 (cyanocobalamin) (43526)Indication: Other vitamin B12 deficiency anemia On: :05 Request Iron (64115)Indication: Anemia On: 63-Fch-584171:05 Request Ferritin (33962)Indication: Anemia On: :05 Request METABOLIC PANEL, COMPREHENSIVE (00118)Indication: High blood triglycerides On: :05 Request CBC WITH MANUAL DIFF (98785)Indication: Anemia On: :05 Request LIPID PANEL (39724)Indication: High blood triglycerides On: 80-Vkz-291957:04 Request nasal influenza swab (58790) A7Bagxyumlea: Unspecified Diagnosis On: 7-Smc-783947:29 Request Rapid Flu (86040 x 2)Indication: Fever On: 2-Gvm-712098:44 Request Lipid Panel (52823)Indication: High blood triglycerides On: 72-Kdm-975405:53 Request CBC (Auto) (91956)Indication: Chronic pancreatitis On: :51 Request Metabolic Panel, Comprehensive (27837)Indication: Chronic pancreatitis On: :51 Request Ferritin (39106)Indication: Anemia On: :51 Request Iron (14773)Indication: Anemia On: :51 Request Vitamin B-12 (cyanocobalamin) (28841)Indication: Other vitamin B12 deficiency anemia On: 29-Hyt-564263:51 Request Lipid Panel (58254)Indication: Malabsorption syndrome On: :39 Request Sed Rate Erythrocyte (22870)Indication: Chronic pancreatitis On: :35 Request CBC, Platelets & Auto Diff (88456)Indication: Chronic pancreatitis On: :35 Request Magnesium (27257)Indication: Chronic pancreatitis On: :35 Request Lipase (39882)Indication: Chronic pancreatitis On: :35 Request Amylase (12995)Indication: Chronic pancreatitis On: :35 Request Metabolic Panel, Comprehensive (42035)Indication: Chronic pancreatitis On: :35 Request CBC (Auto) (61021)Indication: Abdominal pain, acute, generalized On: :29 Request Metabolic Panel, Comprehensive (42262)Indication: Abdominal pain, acute, generalized On: 45-Eaq-615305:29 Request Methylmalonic acid, serum 59920Mnzloukful: Other vitamin B12 deficiency anemia On: 71-Muo-759292:29 Request CULTURE, SPUTUM (56766)Indication: Cough On: 1-Apd-611320:42 Request Lipase (80437)Indication: Acute pancreatitis On: 1-Dks-698454:59 Request Amylase (30335)Indication: Acute pancreatitis On: 5-Fro-907344:59 Request DESIRAE (ANTINUCLEAR ANTIBODY) (46181)Indication: Pain in unspecified joint On: 5-Nzt-167695:48 Request C-REACTIVE PROTEIN (47089)Indication: Pain in unspecified joint On: 5-Mke-869778:48 Request CBC WITH MANUAL DIFF (61078)Indication: Pain in unspecified joint On: 2-Uqs-639991:48 Request METABOLIC PANEL, COMPREHENSIVE (08228)Indication: Pain in unspecified joint On: 6-Mih-067216:48 Request RHEUMATOID FACTOR-QUANT (43719)Indication: Pain in unspecified joint On: 5-Duu-585461:48 Request SED RATE ERYTHROCYTE (08928)Indication: Pain in unspecified joint On: 3-Vpz-717469:48 Request TSH (30275)Indication: Pain in unspecified joint On: 2-Ucd-938637:48 Request GRETTA CULTURE-OTHER (43932)Indication: Pharyngitis, acute On: 74-Hkj-920860:12 Request Rapid Strep Test, Office (02826)Indication: Pharyngitis, acute On: 62-Gxv-922962:12 Request Comments: negative VITAMIN D, 1, 25-DIHYDROXY ([id number])Indication: Chronic pancreatitis On: 66-Kfw-415355:46 Request Vitamin B-12 (cyanocobalamin) (95424)Indication: Other vitamin B12 deficiency anemia On: 95-Hvg-171277:43 Request Lipase (10085)Indication: Chronic pancreatitis On: 84-Mag-909135:35 Request Amylase (16429)Indication: Chronic pancreatitis On: 95-Ent-086866:34 Request CBC (Auto) ([id number])Indication: Chronic pancreatitis On: 57-Odx-606056:34 Request Metabolic Panel, Comprehensive ([id number])Indication: Chronic pancreatitis On: 50-Tev-169793:34 Request Lipid Panel (02414)Indication: Chronic pancreatitis On: 44-Btg-962310:34 Request Comments: standing order every 3 months Metabolic Panel, Comprehensive (32613)Indication: Edema On: :13 Request CBC, Platelets & Auto Diff ([id number])Indication: Edema On: :13 Request PTT (Activated Partial Thromboplastin Time) ([id number])Indication: Edema On: :12 Request PT (Prothrobim Time) (36166)Indication: Edema On: 31-Agg-776074:12 Request Lipase (09873)Indication: pancreatitis On: :32 Request Amylase (05354)Indication: pancreatitis On: :32 Request CBC (Auto) ([id number])Indication: pancreatitis On: :32 Request Metabolic Panel, Comprehensive ([id number])Indication: pancreatitis On: :32 Request Metabolic Panel, Comprehensive (58408)Indication: Fever On: 47-Gxd-266416:57 Request GRETTA CULTURE-BLOOD (58550)Indication: Fever On: :56 Request Comments: one from peripheral GRETTA CULTURE-BLOOD ([id number])Indication: Fever On: 93-Wmc-179713:56 Request Comments: one from port Sed Rate Erythrocyte (81239)Indication: Fever On: 71-Pzd-674358:56 Request CBC, Platelets & Auto Diff (95158)Indication: Fever On: :56 Request Urinalysis, Office (61208)Indication: Fever On: 38-Znk-683349:56 Request GRETTA CULTURE-OTHER (73763)Indication: Fever On: :53 Request Rapid Strep Test, Office ([id number])Indication: Fever On: 1-Xyh-748510:52 Request CBC, Platelets & Auto Diff ([id number])Indication: Chronic pancreatitis On: 0-Zzg-603932:46 Request Lipase (92963)Indication: Chronic pancreatitis On: :46 Request Amylase (77667)Indication: Chronic pancreatitis On: 7-Tap-802676:46 Request Metabolic Panel, Comprehensive ([id number])Indication: Chronic pancreatitis On: 7-Zyb-572711:46 Request FERRITIN ([id number])Indication: Anemia On: 4-Vyj-892040:22 Request VITAMIN B-12 (CYANOCOBALAMIN) (45144)Indication: Other vitamin B12 deficiency anemia On: 8-Eiv-977420:22 Request LIPASE ([id number])Indication: Acute pancreatitis On: 43-Gno-112652:22 Request ALBUMIN SERUM ([id number])Indication: Acute pancreatitis On: :22 Request CBC (AUTO) ([id number])Indication: Acute pancreatitis On: :21 Request METABOLIC PANEL, BASIC ([id number])Indication: Abnormal blood chemistry On: :21 Request Planned Encounters Medical; [facility] 4 Month Fu - On: 01-Sep-2018 13:30 [facility] Sarah Pizano MD, MD, Dana M Planned Procedures Flu Vaccine (Quadrivalent) On: 31-Mar-2018 Intent 06868Jl: COMFORT Gallegos Comments: Lot #:[id number] date: 0-51-79Zsetmr given:0.5mlRoute: IMSite given:L DltdGiven by: ElaineVIS and ABN signed [employer] SCREENING DIGITAL TOMOSYNTHESIS On: 20-Dec-2017 Intent OF BREAST ([id number])By: Sarah Pizano MD, MD, Dana M DEXA SCAN AXIAL SKELETON On: 20-Dec-2017 Intent (96204)By: Sarah Pizano MD, MD, Dana M SCREENING DIGITAL TOMOSYNTHESIS On: 29-Apr-2017 Intent OF BREAST (47781)By: Sarah Pizano MD, MD, Dana M Flu Vaccine (Quadrivalent) On: 29-Apr-2017 Intent [id number]: Sarah Pizano MD Comments: lot: [id number]: 12/19/18site/route: L kelin, IMamt: 0.5mlVIS and ABN signed when applicableChelsea, TIP BANDING MACHINE OPERATOR Sarah Pizano MD CT - Abdomen & Pelvis (IV On: 01-Oct-2016 Intent Contrast Needed)By: Dima DURAN, Comments: attentinon pancrease follow up on kidney cyst. 07-20 creat 0.76 Sarah Ghosh MD Flu Vaccine (Quadrivalent) On: 17-May-2016 Intent 59110Lr: Sarah Pizano MD Comments: FLUlot: [id number]:11/17site:Lt deltoidroute:IMdose:.5mlDEMICK, MA Sarah Pizano MD Aerosol Treatment (89444)By: On: 27-Apr-2016 Intent Slarb SEAM STAYER, Kacey DEXA SCAN AXIAL SKELETON On: 09-Mar-2016 Intent (79156)By: Sarah Pizano MD, MD, Dana M MAMMOGRAM, SCREENING, BOTH On: 09-Mar-2016 Intent BREAST (79505)By: Sarah Pizano MD, MD, Dana M DEXA SCAN AXIAL SKELETON On: 15-Jul-2015 Intent (73109)By: Sarah Pizano MD, MD, Dana M MAMMOGRAM, SCREENING, BOTH On: 15-Jul-2015 Intent BREAST ([id number])By: Sarah Pizano MD, MD, Dana M Aerosol Treatment (86982)By: On: 08-Jul-2015 Intent Pamella Saavedra CNP Aerosol Treatment (94643)By: On: 08-Jul-2015 Intent Slarb SEAM STAYER, Kacey XR HIP RIGHT COMPLETE (89099)By: On: 30-Jun-2015 Intent Sarah Pizano MD, MD, Comments: right hip Sarah Rebollar Radiology - PelvisBy: Dima On: 24-Jun-2015 Intent Sarah DURAN MD, Dana M Comments: and right hip xray Venous Doppler - RightBy: On: 24-Jun-2015 Intent Sarah Pizano MD, MD, Comments: leg Sarah Rebollar Flu Vaccine (Quadrivalent) On: 15-Apr-2015 Intent [id number]: Sarah Pizano MD Comments: lot [id number]: 01/01/2016site/route L kelin, IMamt 0.5mlVIS and ABN signed when applicableMelba, CMAFM4 Sarah Pizano MD Radiology - ChestBy: Quentin ARGUETA, On: 07-Feb-2015 Intent Adeola Aerosol Treatment (97456)By: On: 07-Feb-2015 Intent Ailyn Aguilar Solu -Medrol Injection, 125 mg On: 05-Feb-2015 Intent (J2930)By: Pamella Saavedra CNP Comments: lot:[id number]:route:IMdose:125MGsite: R glutGiven by: FOX Angeles Solu -Medrol Injection, 125 mg On: 04-Feb-2015 Intent (J2930)By: Pamella Saavedra CNP Aerosol Treatment (59130)By: On: 04-Feb-2015 Intent Pamella Saavedra CNP MAMMOGRAM, SCREENING, BOTH On: 14-Jan-2015 Intent BREAST (81275)By: Sarah Pizano MD, MD, Dana M Prevnar 13 (17182)By: Dima On: 16-Jul-2014 Intent Sarah DURAN MD, Dana M ADMINISTRATION OF INFLUENZA On: 22-Apr-2014 Intent VIRUS VACCINE (G0008)By: Sarah Pizano MD, MD, Dana M FLU VAC, SPLIT, >3 YEARS, On: 22-Apr-2014 Intent INTRAMUSC (19581)By: Dima DURAN, Comments: Lot #:[id number] date:mount given:0.5mlRoute: IMSite given:left deltoid Given by: Sarah Mota MD Phenergan Injection, up to 50 mg On: 12-Dec-2013 Intent (J2550)By: Pamella Saavedra CNP MAMMOGRAM, SCREENING, BOTH On: 25-Sep-2013 Intent BREASTS (22118)By: Sarah Pizano MD, MD, Dana M Eprescribed prescriptions On: 25-Sep-2013 Intent (G8553)By: Sarah Pizano MD, MD, Dana M Aerosol Treatment (42044)By: On: 05-Sep-2013 Intent [address]ra CNP CT - Abdomen & Pelvis (IV On: 04-Jun-2013 Intent Contrast Needed)By: Sarah Pizano MD, MD, Dana M DXA, BONE DENSITY, AXIAL On: 04-Jun-2013 Intent SKELETON (38751)By: Dima DURAN, Comments: postmenapausal Sarah Ghosh MD MAMMOGRAM, SCREENING, BOTH On: 04-Jun-2013 Intent BREASTS (95910)By: Dima DURAN, Sarah Ghosh MD Pulse Oximetry (78042)By: On: 04-Jun-2013 Intent COMFORT Gallegos Eprescribed prescriptions On: 14-May-2013 Intent (G8553)By: Melba Malloy ELECTROCARDIOGRAM, COMPLETE On: 26-Dec-2012 Intent (ECG) (01744)By: Sarah Pizano MD, MD, Dana M Eprescribed prescriptions On: 26-Dec-2012 Intent (G8553)By: Makenzie Allred LPN MAMMOGRAM, SCREENING, BOTH On: 24-Aug-2012 Intent BREASTS (98103)By: Sarah Pizano MD, MD, Dana M Pulse Oximetry (33634)By: On: 29-Jun-2012 Intent COMFORT Gallegos Radiology - Chest- PA and LatBy: On: 01-Jun-2012 Intent Sofia Younger DO Eprescribed prescriptions On: 01-Jun-2012 Intent (G8553)By: Kim Garces LPN FLU VAC, SPLIT, >3 YEARS, On: 28-Apr-2012 Intent INTRAMUSC (09252)By: Balaji, Comments: Lot:[id number]:6.30.13Dose:prefilledRoute:IMSite:L DltdGiven By:BARRY Garcia IMMUNIZ ADMNIN, 1 VAC, On: 28-Apr-2012 Intent SNGL/COMBO (07163)By: Radha Carpio TDAP VACCINE >7 IM (42172)By: On: 24-Nov-2011 Intent Makenzie Allred LPN Comments: Lot #[id number]- 11.13Site- L arm, ImDose prefilledgiven by: Makenzie MAMMOGRAM, SCREENING, BOTH On: 01-Nov-2011 Intent BREASTS (45330)By: Sarah Pizano MD, MD, Dana M Aerosol Treatment (65351)By: On: 14-Oct-2011 Intent Sofia Younger DO Comments: [...] SPLIT, >3 YEARS, On: 20-Apr-2011 Intent INTRAMUSC (44093)By: Cayden Comments: Lot #[id number]-9/30/12Site-left deltoidgiven by: Jared Rodarte, SCAR CASTILLON, Chery IMMUNIZ ADMNIN, 1 VAC, On: 20-Apr-2011 Intent SNGL/COMBO (05589)By: Chery Rodarte LPN B 12 Injection, 1000 mcg On: 22-Mar-2011 Intent (J3420)By: COMFROT Gallegos DRAIN/INJECT MAJOR JOINT OR On: 22-Mar-2011 Intent BURSA ()By: COMFORT Gallegos Comments: Lot #:[id number] date: given:2ml Route: intra articular Site given:bilateral knees Given by: Dr. Pizano Pulse Oximetry (44359)By: Quentin On: 19-Mar-2011 Intent FLARE MAN, Adeola Aerosol Treatment (50165)By: On: 19-Mar-2011 Intent Ciesa FLARE MAN, Adeola DRAIN/INJECT MAJOR JOINT OR On: 12-Mar-2011 Intent BURSA ()By: COMFORT Gallegos Comments: Lot #:[id number] date: given:2ml Route: intra articular Site given:bilateral knees Given by: Dr. Pizano DRAIN/INJECT MAJOR JOINT OR On: 04-Mar-2011 Intent BURSA ()By: COMFORT Gallegos Comments: Lot #:[id number] date: given:2mlRoute: intra articular Site given:Bilateral knees Given by: Dr. Pizano injection #1 Kenalog Injection, 10 mgm On: 08-Feb-2011 Intent (J3301)By: Sarah Pizano MD Comments: x 8 Sarah Pizano MD Breast Ultrasound - LeftBy: On: 08-Feb-2011 Intent Sarah Pizano MD, MD, Sarah Rebollar DXA, BONE DENSITY, AXIAL On: 02-Nov-2010 Intent SKELETON (71203)By: Sarah Pizano MD, MD, Dana M MAMMOGRAM, SCREENING, BOTH On: 02-Nov-2010 Intent BREASTS (10955)By: Sarah Pizano MD, MD, Dana M FLU VAC, SPLIT, >3 YEARS, On: 17-Jun-2010 Intent INTRAMUSC (76390)By: Caydne Comments: Lot #[id number] 4PExp-4/11Site-right deltoidgiven by:Chery PAVON LPN IMMUNIZ ADMNIN, 1 VAC, On: 17-Jun-2010 Intent SNGL/COMBO (30697)By: Chery Rodarte LPN DXA, BONE DENSITY, AXIAL On: 30-Sep-2009 Intent SKELETON (38284)By: Sarah Pizano MD, MD, Dana M MAMMOGRAM, SCREENING, BOTH On: 30-Sep-2009 Intent BREASTS (29943)By: Sarah Pizano MD, MD, Dana M B 12 Injection, 1000 mcg On: 30-Sep-2009 Intent (J3420)By: COMFORT Gallegos Pulse Oximetry (78782)By: Quentin On: 09-Apr-2009 Intent FLARE MAN, Adeola Aerosol Treatment (81553)By: On: 09-Apr-2009 Intent Ciesa FLARE MAN, Adeola FLU VAC, SPLIT, >3 YEARS, On: 26-Mar-2009 Intent INTRAMUSC (42787)By: Lisa HERRON, Andie IMMUNIZ ADMNIN, 1 VAC, On: 26-Mar-2009 Intent SNGL/COMBO (08693)By: Lisa HERRON, Comments: Lot #: [id number] date: mount given: 0.5 mlRoute: IMSite given: left deltoidGiven by: SCAR Montenegro INJECTION, VITAMIN B-12 On: 07-Feb-2009 Intent CYANOCOBALAMIN, UP TO 1000 MCG Comments: Lot #[id number] date: given:1mlSite given: right deltoidGiven by:Judith. (Special Coverage Instructions Apply. See [facility]: 45-4 and [facility]: 2048) (J3420)By: COMFORT Gallegos Pulse Oximetry (99245)By: Ceci On: 04-Dec-2008 Intent DO, Rosa Maria A Comments: post mpncekgwt78% Aerosol Treatment (82054)By: On: 04-Dec-2008 Intent Fast DORosa Maria A Comments: done-aw B 12 Injection, 1000 mcg On: 04-Dec-2008 Intent (J3420)By: Tonia Garcia Comments: Lot #[id number]-05/2010Site-right zvhkrsuTrll9649iml/1mlgiven by Debbie Lei LPN Pulse Oximetry (23019)By: On: 04-Dec-2008 Intent Tonia Garcia Comments: 91% [...] Intent (J3420)By: COMFORT Gallegos Comments: Lot #[id number]-right novxomhTaot3210gzk/1mlgiven by Debbie Lei LPN DRAIN/INJECT MAJOR JOINT OR On: 09-Oct-2008 Intent BURSA ()By: COMFORT Gallegos Comments: Lot #:[id number] date:mount given:Route: intra articular Site given:bilateral knees Given by: Dr. Pizano DRAIN/INJECT MAJOR JOINT OR On: 01-Oct-2008 Intent BURSA ()By: COMFORT Gallegos Comments: Lot #:[id number] date:mount given:2.5ml Route:intra-articular Site given:Bilateral knees Given by: Dr. Pizano DRAIN/INJECT MAJOR JOINT OR On: 24-Sep-2008 Intent BURSA ()By: COMFORT Gallegos Comments: Lot #:[id number] date: Amount given:2.5 mlRoute: intra-articular Site given:bilateral knees Given by: Dr. Pizano DRAIN/INJECT MAJOR JOINT OR On: 17-Sep-2008 Intent BURSA ()By: COMFORT Gallegos Comments: Lot #:[id number] date:mount given:2 grams Route: Intra articular Site given: bilateral knees Given by: Dr. Pizano DRAIN/INJECT MAJOR JOINT OR On: 13-Sep-2008 Intent BURSA ()By: COMFORT Gallegos Comments: Lot #:[id number] date:05-10 Amount given:2.5MLRoute: INTRA ARTICULAR Site given:bilateral knees Given by: Dr. Dima Sarkar 12 Injection, 1000 mcg On: 10-Sep-2008 Intent (J3420)By: COMFORT Gallegos B 12 Injection, 1000 mcg On: 29-Jul-2008 Intent (J3420)By: Denise Collazo Comments: Amt: 1mlLot: [id number]: 02/10Route: IMSite: right deltTolerated: wellGiven By: SCAR Sood Pulse Oximetry (95628)By: Quentin On: 29-Jul-2008 Intent KENDALL Adeola Aerosol Treatment (41971)By: On: 29-Jul-2008 Intent Ciesa KENDALL Adeola Aerosol Treatment (46551)By: On: 16-Jul-2008 Intent Sofia Younger DO Comments: done-awnoise resolved and much more air exchange Pulse Oximetry (52580)By: Carisa On: 16-Jul-2008 Sofia Davis DO Comments: 93% Solu- Medrol Injection, 125mg On: 16-Jul-2008 Intent (J2930)By: Sofia Younger DO Comments: Lot #OATYMExp-12/12Site-right luhItou5kh/125mggiven by Debbie Lei LPN B 12 Injection, 1000 mcg On: 30-Apr-2008 Intent (J3420)By: Prema Lei Comments: Lot #[id number]-11/10Site-right vwuzpnlHbrj3auaswlv by Debbie Lei LPN DXA, BONE DENSITY, AXIAL On: 30-Apr-2008 Intent SKELETON (19028)By: Dima DURAN, Comments: estrogen def Sarah Pizano MD, Sarah Rebollar MAMMOGRAM, SCREENING, BOTH On: 30-Apr-2008 Intent BREASTS (67086)By: Dima DURAN, Sarah Pizano MD, Sarah Rebollar B 12 Injection, 1000 mcg On: 27-Mar-2008 Intent (J3420)By: Tonia Garcia Comments: Lot #:[id number] date:mount given:.1mlRoute: IMSite given:left deltoidGiven by: EDEN Salcido Pulse Oximetry (09650)By: On: 27-Mar-2008 Intent Tonia Garcia Comments: 96% Pulse Oximetry (24558)By: On: 14-Mar-2008 Intent COMFORT Gallegos B 12 Injection, 1000 mcg On: 06-Feb-2008 Intent (J3420)By: Pamella Saavedra CNP Comments: Lot #:[id number] date: Amount given:1ml Route: IMSite given:left deltoid Given by: billy Solu -Medrol Injection, 125 mg On: 06-Feb-2008 Intent (J2930)By: Pamella Saavedra CNP Comments: Lot #:[id number] date:mount given:125mgRoute: IMSite given:left gluteal Given by: aretha Pulse Oximetry (60570)By: Quentin On: 06-Feb-2008 Intent Pamella ARGUETA Aerosol Treatment (85393)By: On: 06-Feb-2008 Intent Pamella Saavedra CNP B 12 Injection, 1000 mcg On: 21-Dec-2007 Intent (J3420)By: Ledy Nogueira Comments: given in right deltoid, lot#[id number], exp.3.10 >Wf. B 12 Injection, 1000 mcg On: 03-Oct-2007 Intent (J3420)By: Ciesa FLARE MAN, Adeola Pulse Oximetry (83689)By: Quentin On: 03-Oct-2007 Intent Pamella ARGUETA Aerosol Treatment (96928)By: On: 03-Oct-2007 Intent Bryanjunie Pamella ARGUETA Pulse Oximetry (28304)By: Lenny, On: 16-Aug-2007 Intent Cira Aerosol Treatment (49261)By: On: 16-Aug-2007 Intent Sofia Younger DO Comments: no wheeze and better air exchange Solu- Medrol Injection, 125mg On: 16-Aug-2007 Intent (J2930)By: Sofia Younger DO Comments: given in left buttocks.lot # [id number]\Exp 02/2010 SPECIMEN HNDLNG/TRNSPRT, OFFC > On: 16-Aug-2007 Intent LAB (82017)By: Sofia Younger DO B 12 Injection, 1000 mcg On: 01-Aug-2007 Intent (J3420)By: Prema Lei Comments: Lot #[id number]-05/12Site-left zeyvnzeIhix8vybhhbe by Debbie Lei [facility] CT - ChestBy: Sarah Pizano MD On: 01-Aug-2007 Intent Sarah Pizano MD FLU VAC, SPLIT, >3 YEARS, On: 18-Apr-2007 Intent INTRAMUSC (18125)By: Sarah Pizano MD, MD, Dana M IMMUNIZ ADMNIN, 1 VAC, On: 18-Apr-2007 Intent SNGL/COMBO (84634)By: Sarah Pizano MD, MD, Dana M B [...] HNDLNG/TRNSPRT, OFFC > On: 10-Oct-2006 Intent LAB (57335)By: Sarah Pizano MD, MD, Dana M Solu -Medrol Injection, 125 mg On: 16-Sep-2006 Intent (J2930)By: Sarah Pizano MD Comments: lot # [id number] exp 04-[address] gluteal by Sarah Chacon lpn, MD Pulse Oximetry (70777)By: On: 16-Sep-2006 Intent Sarah Pizano MD, MD, Dana M Aerosol Treatment (08757)By: On: 16-Sep-2006 Intent Sarah Pizano MD, MD, Dana M Pulse Oximetry (39210)By: On: 04-Aug-2006 Intent Sarah Pizano MD, MD, Dana M EKG (89985)By: Sarah Pizano MD On: 08-Jul-2006 Intent Sarah Morfin MD IMMUNIZ ADMNIN, 1 VAC, On: 06-May-2006 Intent SNGL/COMBO (60171)By: Ramiro ABBOTT, Peg FLU VAC, SPLIT, >3 YEARS, On: 06-May-2006 Intent INTRAMUSC (47919)By: Ramiro ABBOTT, Comments: Lot #:Expiration date:Amount given:Route: imSite given:r armGiven by: galina golden lpn Peg Echo CompleteBy: Dima DURAN, On: 19-Apr-2006 Intent Sarah [address] MD CT - Abdomen & PelvisBy: Dima On: 19-Apr-2006 Intent Sarah DURAN MD, Dana M Comments: ?obstruction, pancreatitis, attention kidney cyst send to [facility] gastrologist [facility] Planned Medications INJECTION, METHYLPREDNISOLONE SODIUM SUCCINATE, [...] Advance Directives Name Dates Details Immunization Registry [place]el - Effective on Effective: 29-Apr-201704/29/2017. Expiration date [...] (579.8), Hyponatremia (276.1), Asthma (493.11), Fibromyalgia (729.1), [facility] V73.21 [place]AHBSO (Renamed from [facility]), Obesity,unspecified (278.00), GERD (530.81), DEFICIENCY, VITAMIN D [...] ANEMIA DUE TO DIETARY IRON DEFICIENCY (280.1), [facility] V73.21 [place]AHBSO (Renamed from [facility]) [facility] Office Visit On: 29-Jun-2012 [...] (477.8), Other vitamin B12 deficiency anemia (281.1), [facility] Phone Encounter On: 23-Jan-2010 [...] docs for this Dr Jacob rabago at [facility]-- -- feels similiar to what she [...] months. Note for Fever: pt had epidural 5-26-06Oifykhmyf Diagnosis: Dehydration(276.51), Abdominal Pain,Generalized (789.07), FEVER (780.6) [...] care visit: swelling better with aldactone, reviewed it support consultant's letter use compression, work up from [...] weekend , bite by flies, camp in [facility], no fever abd pain still hit abd [...] Epigastric pain (789.06), SVC thrombosis, Fibromyalgia (729.1), [facility] Office Visit On: 21-Nov-2006 [...] chemistry (790.6) [facility] Payers [facility] Center[facility]; junie guarantor
--- OUTSIDE RECORDS SUMMARY | 2018-08-02 06:16 | XMS RPT_ITS | Continuity of Care Document ---
:1955 Author Organization [facility] Address [address] [place] [address] Phone Care Team Providers Name Role Phone [...] cervical.doing every 6 months. ariel leaving to [place]. reconmmend Dr. romero and i talk to [...] really expensive can use an equivalent Creon 59070 UNIT Oral Capsule Delayed Release Particles 2 [...] MD, Dana M Start : 30-Nov-2016 Active Saxe 5-325 MG Oral Tablet 1 (one) Tablet [...] Start : 14-Apr-2018 Active Vitamin D (Ergocalciferol) 77109 UNIT Oral Capsule 1 (one) capsule twice [...] MD, Dana M Start : 06-Feb-2018 Active Comments:[id number] called to [facility] ADVAIR DISKUS, 100-50MCG/DOSE [...] End : 24-Aug-2012 Inactive CALCIUM 500/VITAMIN D, 665-924YG-KGUS (Oral Tablet) 1 (one) Tablet daily for [...] : 09-Mar-2016 End : 04-Jun-2016 Inactive Drisdol 56104 UNIT Oral Capsule 1 Capsule two times [...] : 21-Dec-2007 End : 14-Mar-2008 Inactive Nystatin 175535 UNIT/GM External Powder 1 Powder bid for [...] patient to take every day at bedtime. MOHMAUD dispense ninety MEDROL (NIEVES), 4MG (Oral Tablet) [...] cervical.doing every 6 months. george leaving to [place]. reconmmend Dr. romero and i talk to [...] Procedures Procedure Dates Details [place], [place] (85329) Date: 01-Oct-2016 Cancelled Cholecystectomy Completed GASTRIC BYPASS, OPEN (51112) Completed Comments: 1997, Dr. lindsay did for recurrent pancreatitis, this is what helped her. Hysterectomy; Abdominal Completed JEJUNOSTOMY (54580) Completed Comments: 1995 closed 1997 when had gastric bypass, because of pancreatitis and was tube feed for 2 years Date Value Details 21-Mar-2018 Dexa Bone Density Study Result: Comments: See Note; NOTES: [facility] Imaging Services [address] [place] [address] Dexa Bone Density Study MR#: [id number] Acct: [id number] Name: JOSE J COBIAN Rep #: [id number] : 1955 F 63 From: Bartolome Patel MD PCP: Sarah Pizano MD Status: REG CLI Study: Dexa Bone Density Study Date of Exam: 03/21/18 Exam# [id number] Ordering Dr: Sarah Pizano MD STUDY: D [...] Bartolome Patel MD at 15:07 EDT Tel [phone], Service support , CC: Sarah Pizano MD Cytology Supervisor: Signed 21-Mar-2018 SCREENING MAMM (CAD), BILAT Result: Comments: See Note; NOTES: [facility] Imaging Services [address] [place] [address] SCREENING MAMM (CAD), BILAT MR#: [id number] Acct: [id number] Name: JOSE J COBIAN Rep #: [id number] : 1955 F 63 From: Bartolome Patel MD PCP: Sarah Pizano MD Status: [facility] Study: SCREENING MAMM (CAD), BILAT Date of Exam: 03/21/18 Exam# [id number] Ordering Dr: Sarah Pizano MD MAMMOGRAPHY - [...] biopsy of a clinically suspicious abno rmality. [id number] Electronically Signed: Bartolome Patel MD at 13:21 EDT Tel [phone], Service support , CC: Sarah Pizano MD Cytology Supervisor: Signed 07-Nov-2017 Operative Report Result: Comments: See Note; NOTES: [facility] Medical Records Department [address] [place] [address] Operative Report 11/07/17 1027 MR#: [id number] Acct: [id number] Name: JOSE J COBIAN Rep #: [id number] : 1955 62 From: Bubba Romero MD PCP: Sarah Pizano MD Status: REG SDC Y Location: [place] [address] Problem List (1) Disc disease, degenerative, lumbar [...] 4 Views Result: Comments: See Note; NOTES: [facility] Imaging Services [address] [place] [address] L/S Spine Min 4 Views MR#: [id number] Acct: [id number] Name: JOSE J COBIAN Rep #: [id number] : 1955 F 62 From: Bartolome Patel MD PCP: Sarah Pizano MD Status: [facility] Study: L/S Spine Min 4 Views Date of Exam: 11/07/17 Exam# [id number] Ordering Dr: Bubba Romero MD PROCEDURE : [...] Bartolome Patel MD at 11:01 EDT Tel [phone], Service support , CC: Sarah Pizano MD; Bubba Romero Cytology Supervisor: Signed 04-Oct-2017 Cardiology Visit Report Result: Comments: See Note; NOTES: [facility] [address] [place] [address] OFFICE VISIT Date of Service: 10/03/17 MR#: [id number] Acct: [id number] Name: JOSE J COBIAN Rep #: [id number] : 1955 Provider: Chanel Shaw Age/Sex: 62/F Location: [facility] Status: Signed HPI HPI Details: JOSE J [...] Intake Visit Reasons: NOT SEEN SINCE 05/2016 [place] Joiner Required: No Accompanied by: Is patient in [...] mg PO DAILY@0800 10/20/15 [History Confirmed 10/03/17] [place] codone Bitart/Apap 5-325 [Saxe 5/325] 1 tab PO Q4H PRN PRN [...] Operative Report Result: Comments: See Note; NOTES: [facility] Medical Records Department [address] [place] [address] Operative Report 09/05/17 0944 MR#: [id number] Acct: [id number] Name: JOSE J COBIAN Rep #: [id number] : 1955 62 From: Bubba Romero MD PCP: Sarah Pizano MD Status: REG [facility] Y Location: [place] [address] Problem List (1) Lumbosacral spondylosis Status: Chronic [...] 4 Views Result: Comments: See Note; NOTES: [facility] Imaging Services [address] [place] [address] L/S Spine Min 4 Views MR#: [id number] Acct: [id number] Name: JOSE J COBIAN Rep #: [id number] : 1955 F 62 From: Bartolome Patel MD PCP: Sarah Pizano MD Status: [facility] Study: L/S Spine Min 4 Views Date of Exam: 09/05/17 Exam# [id number] Ordering Dr: Bubba Romero MD PROCEDURE : [...] Bartolome Patel MD at 9:02 EST Tel [phone], Service support , CC: Sarah Pizano MD; Bubba Romero Cytology Supervisor: Signed 08-Aug-2017 Operative Report Result: Comments: See Note; NOTES: [facility] Medical Records Department [address] [place] [address] Operative Report 08/08/17 1408 MR#: [id number] Acct: [id number] Name: JOSE J COBIAN Rep #: [id number] : 1955 62 From: Bubba Romero MD PCP: Sarah Pizano MD Status: [facility] Y Location: [facility] Problem List (1) Lumbosacral radiculopathy Status: Chronic [...] 3 Views Result: Comments: See Note; NOTES: [facility] Imaging Services [address] [place] [address] Lumbar Spine 2 or 3 Views MR#: [id number] Acct: [id number] Name: JOSE J COBIAN Rep #: [id number] : 1955 F 62 From: Bartolome Patel MD PCP: Sarah Pizano MD Status: [facility] Study: Lumbar Spine 2 or 3 Views Date of Exam: 08/08/17 Exam# [id number] Ordering Dr: Bubba Romero MD P ROCEDURE: [...] Bartolome Patel MD at 11:32 EST Tel [phone], Service support , CC: Sarah Pizano MD; Bubba Romero Cytology Supervisor: Signed 09-May-2017 Operative Report Result: Comments: See Note; NOTES: [facility] Medical Records Department [address] [place] [address] Operative Report 05/09/17 1348 MR#: [id number] Acct: [id number] Name: VIRAJ COBIANA Denise Rep #: [id number] : 1955 62 From: Bubba Romero MD PCP: Sarah Pizano MD Status: REG SDC Y Location: [place] [address] Report of Operation Date of Procedure: 05/09/17 [...] Spine Inj Result: Comments: See Note; NOTES: [facility] Imaging Services [address] [place] [address] Fluor Guidance for Spine Inj MR#: [id number] Acct: [id number] Name: JOSE J COBIAN Rep #: [id number] : 1955 F 62 From: Bartolome Patel MD PCP: Sarah Pizano MD Status: [facility] Study: Fluor Guidance for Spine Inj Date of Exam: 05/09/17 Exam# [id number] Ordering Dr: Bubba Romero MD PROCEDURE: Caudal [...] Bartolome Patel MD at 14:03 EST Tel [phone], Service support , CC: Sarah leigh MD; Bubba Romero Cytology Supervisor: Signed 29-Apr-2017 L/S Spine Min 4 Views Result: Comments: See Note; NOTES: [facility] Imaging Services [address] [place] [address] L/S Spine Min 4 Views MR#: [id number] Acct: [id number] Name: JOSE J COBIAN Rep #: [id number] : 1955 F 62 From: Feliberto Sim MD PCP: Sarah Pizano MD Status: REG CLI Study: L/S Spine Min 4 Views Date of Exam: 04/29/17 Exam# [id number] Ordering Dr: Lizeth Sanches STUDY: X-RAY - [...] , CC: Lizeth Sanches; Sarah Pizano MD Cytology Supervisor: Signed 21-Mar-2017 Operative Report Result: Comments: See Note; NOTES: [facility] Medical Records Department [address] [place] [address] Operative Report 03/21/17 0841 MR#: [id number] Acct: [id number] Name: JOSE J COBIAN Rep #: [id number] : 1955 62 From: Bubba Romero MD PCP: Sarah Pizano MD Status: DEP [facility] Y Location: [facility] Problem List (1) Cervical spine degeneration Status: [...] 5 Views Result: Comments: See Note; NOTES: [facility] Imaging Services [address] [place] [address] Cerv Spine 4 or 5 Views MR#: [id number] Acct: [id number] Name: JOSE J COBIAN Rep #: [id number] : 1955 F 62 From: Daniel Manzano DO PCP: Sarah Pizano MD Status: [facility] Study: Cerv Spine 4 or 5 Views Date of Exam: 03/21/17 Exam# [id number] Ordering Dr: Bubba Romero MD STUDY: X-RAY - CERVICAL SPINE REASON FOR EXAM: Female, 62 years old. Cervical block TECHNIQUE: 4 view(s) of the cervical spine were obtained. COMPARISON: None FINDINGS: Face t block was performed with 4 spot fluoroscopy images obtained. Total fluoroscopy time 14.7 seconds. Please see performing physician's report for further details ORD ER #: [id number] RAD/Cerv Spine 4 or 5 Views IMPRESSION: As above Electronically Signed: Daniel Manzano DO at 16:12 EDT Tel , Service support , CC: Sarah Pizano MD; Bubba Romero Cytology Supervisor: Signed 17-Jan-2017 Operative Report Result: Comments: See Note; NOTES: [facility] Medical Records Department [address] [place] [address] Operative Report 01/17/17 1246 MR#: [id number] Acct: [id number] Name: JOSE J COBIAN Rep #: [id number] : 1955 61 From: Bubba Romero MD PCP: Sarah Pizano MD Status: DEP [facility] Y Location: [facility] Problem List (1) Cervical spine degeneration Status: [...] 5 Views Result: Comments: See Note; NOTES: [facility] Imaging Services [address] [place] [address] Verdana 4d Cerv Spine 4 or 5 Views MR#: [id number] Acct: [id number] Name: JOSE J COBIAN #: [id number] : 1955 F 61 From: Tonia Galvan MD PCP: Sarah Pizano MD Status: [facility] Study: Cerv Spine 4 or 5 Views Date of Exam: 01/17/17 Exam# [id number] Ordering Dr: Bubba Romero MD STUDY: X-RAY [...] Tonia Galvan MD at 16:36 EDT Tel [phone], Service support , CC: Sarah Pizano MD; Bubba Romero Cytology Supervisor: Signed 09-Oct-2016 Abdomen/Pelvis WITH Contrast Result: Comments: See Note; NOTES: [facility] Imaging Services [address] [place] [address] Shiradana 4d Abdomen/Pelvis WITH Contrast MR#: [id number] Acct: [id number] Name: VIRAJ COBIAN Rep #: [id number] : 1955 F 61 From: Enrike Peres PCP: Sarah Pizano MD Status: REG CLI Study: Abdomen/Pelvis WITH Contrast Date of Exam: 10/09/16 Exam# [id number] Ordering Dr: Sarah Pizano MD STUDY: CT [...] at 9:47 EDT Tel , Service support [phone], CC: Sarah Pizano MD Cytology Supervisor: Signed 23-Aug-2016 Operative Report Result: Comments: See Note; NOTES: [facility] Medical Records Department [address] [place] [address] Operative Report MR#: [id number] Acct: [id number] Name: JOSE J COBIAN Rep #: [id number] : 1955 61 From: Bubba Romero MD PCP: Sarah Pizano MD Status: [facility] DATE OF SERVICE: 08/09/2016 DATE [...] indicated. Bubba Romero MD T: NTS JOB: [id number] 08/23/16 1357 <Electronica lly signed by Bubba Romero MD> Date [facility] Signature (If Indicated): Date ____ CC: Sarah Pizano MD; Bubba Romero Date Dictated: 08/09/16 1311 Date Transcribed: 08/09/161310 Cytology Supervisor: Signed 09-Aug-2016 Thoracic Spine 3 Views Result: Comments: See Note; NOTES: [facility] Imaging Services [address] [place] [address] Verdana 4d Thoracic Spine 3 Views MR#: [id number] Acct: [id number] Name: JOSE J COBIAN p #: [id number] : 1955 F 61 From: Azalia Fernandes MD PCP: Sarah Pizano MD Status: [facility] Study: Thoracic Spine 3 Views Date of Exam: 08/09/16 Exam# [id number] Ordering Dr: Bubba Romero MD JERO DY: [...] of fluoroscopic radiation use. Electronically Signed: Azalia Frenandes MD at 1 2:18 EST , Service support [phone], CC: Sarah Pizano MD; Bubba Romero Cytology Supervisor: Signed 01-Jun-2016 PT D/C of Non Returning Pt (1) Result: Comments: See Note; NOTES: [facility] Physical Therapy [facility] [address] [place], [place] [address] Fax REHABILITATION SERVICES DISCHAR GE SUMMARY MR#: [id number] Acct: [id number] Name: JOSE J COBIAN Rep #: [id number] Operative Report Result: Comments: See Note; NOTES: [facility] Medical Records Department [address] [place] [address] Operative Report MR#: [id number] Acct: [id number] Name: JOSE J COBIAN Rep #: [id number] : 1955 61 From: Bubba Romero MD PCP: Sarah Pizano MD Status: [facility] DATE OF SERVICE: 03/22/2016 DATE [...] indicated. Bubba Romero MD T: NTS JOB: [id number] 04/05/16 1351 <E lectronically signed by Bubba Romero MD> Date Bubba Romero MD Cosigner Signature (If Indicated): Date CC: Sarah Pizano MD; Bubba Romero Date Dictated: 03/22/161415 Date Transcribed: 03/22/161415 Cytology Supervisor: Signed 01-Apr-2016 Echocardiogram Complete Result: Comments: See Note; NOTES: [facility] Cardiovascular Services [address] [place] [address] Echo Complete 04/01/16 1256 MR#: [id number] Acct: [id number] Name: JOSE J COBIAN Rep #: [id number] : 1955 61 From: Antonino Lucas MD Attending Dr: Antonino Lucas MD Status: REG CLI Ordering Dr: Antonino Lucas MD Date: 04/01/16 Location: [facility] Sex: F C Admitted: Reason [...] Dictated: 04/01/16 1256 Date Transcribed: 04/01/16 1515 Cytology Supervisor: Signed 22-Mar-2016 Breast Limited Unilateral Result: Comments: See Note; NOTES: [facility] Imaging Services [address] [place] [address] Verdana 4d Breast Limited Unilateral MR#: [id number] Acct: [id number] Name: JOSE J COBIAN Rep #: [id number] : 1955 F 61 From: Bartolome Paetl MD PCP: Sarah Pizano MD Status: REG CLI Study: Breast Limited Unilateral Date of Exam: 03/22/16 Exam# [id number] Ordering Dr: Zack Pizano MD STUDY: ULTRASOUND [...] Bartolome Patel MD at 12:35 EDT Tel [phone], Service support [phone], CC: Sarah Pizano MD Cytology Supervisor: Signed 19-Mar-2016 Thoracic Spine 3 Views Result: Comments: See Note; NOTES: [facility] Imaging Services [address] [place] [address] Verdana 4d Thoracic Spine 3 Views MR#: [id number] Acct: [id number] Name: MANGOVIRAJA Denise Prather #: [id number] : 1955 F 61 From: Bartolome Patel MD PCP: Sarah Pizano MD Status: REG [facility] Study: Thoracic Spine 3 Views Date of Exam: 03/22/16 Exam# [id number] Ordering Dr: Bubba Romero MD STUDY: X-RAY [...] Bartolome Patel MD at 14:10 EDT Tel [phone], Service support [phone], CC: Sarah vasquez MD; Bubba Romero Cytology Supervisor: Signed 19-Mar-2016 Inital Evaluation (1) - PT Result: Comments: See Note; NOTES: [facility] Physical Therapy [facility] [address] [place] [address] Fax REHABILITATION SERVICES HERI Springer EVALUATION MR#: [id number] Acct: [id number] Name: JOSE J COBIAN Rep #: [id number] : 1955 61 From: Mac mSith Referring Dr.: Bubba Romero Status: REG RCR Insurance: As Seen on TV ARE MEDICARE Patient's Visit Information JOSE J [...] to be FAXED BACK to us at [phone] for Medicare purposes. Please let me know [...] AND CAD Result: Comments: See Note; NOTES: [facility] Imaging Services [address] [place] [address] Verdana 4d Bilat Scrn Digital AND CAD MR#: [id number] Acct: [id number] Name: JOS EJ COBIAN Rep #: [id number] : 1955 F 61 From: Bartolome Patel MD PCP: Sarah Pizano MD Status: REG CLI Study: Bilat Scrn Digital AND CAD Date of Exam: 03/16/16 Exam# [id number] Ordering Dr: Sarah Pizano MD MAMMOGRAPHY - [...] delay biopsy of a clinically suspicious abnormality. [id number] Electronically Signed: Bartolome Patel MD at 15:06 EDT Tel [phone], Service supp ort [phone], CC: Sarah Pizano MD Cytology Supervisor: Signed 16-Mar-2016 Dexa Bone Density Study (HP) Result: Comments: See Note; NOTES: [facility] Imaging Services [address] [place] [address] Verdana 4d Dexa Bone Density Study (HP) MR#: [id number] Acct: [id number] Name: MAURI COBIAN Rep #: [id number] : 1955 F 61 From: Bartolome Patel MD PCP: Sarah Pizano MD Status: REG CLI Study: Dexa Bone Density Study (HP) Date of Exam: 03/16/16 Exam# [id number] Ordering Dr: Sarah Deng MD STUDY: DUAL [...] Bartolome Patel MD at 14:15 EDT Tel [phone], Service support [phone], CC: Sarah Pizano MD Cytology Supervisor: Signed 22-Feb-2016 History and Physical Exam Result: Comments: See Note; NOTES: [facility] Medical Records Department [address] [place] [address] History and Physical 02/22/162054 MR#: [id number] Acct: [id number] Name: JOSE J COBIAN Rep #: [id number] : 1955 60 From: An Dent DO [...] was seen in the emergency room at [facility] with a chief complaint of precordial [...] - Mediport placement Psychiatric Hist ory: Anxiety 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 Lives: Spouse/ Significant Other Smoking [...] 44.6 L Lymph % (Auto) 46.1 H [place] % (Auto) 6.9 Eos % (Auto) 2.0 [...] View (Portable) Result: Comments: See Note; NOTES: [facility] Imaging Services [address] [place] [address] Verdaolvin 4d Chest 1 View (Portable) MR#: [id number] Acct: [id number] Name: JOSE J COBIAN Rep #: [id number] : 1955 F 60 From: Kim Dsouza MD PCP: Sarah Pizano MD Status: REG ER Study: Chest 1 View (Portable) Date of Exam: 02/22/16 Exam# [id number] Ordering Dr: Mac Chi MD STUDY: X-RAY [...] MD at 19:35 EDT , Service support [phone], CC: Sarah Pizano MD; Mac Chi MD Cytology Supervisor: Signed 16-Feb-2016 Thoracic Spine 3 Views Result: Comments: See Note; NOTES: [facility] Imaging Services [address] [place] [address] Verdana 4d Thoracic Spine 3 Views MR#: [id number] Acct: [id number] Name: JOSE J COBIAN Yamilka #: [id number] : 1955 F 60 From: Kirk Wall MD PCP: Sarah Pizano MD Status: REG CLI Study: Thoracic Spine 3 Views Date of Exam: 02/16/16 Exam# [id number] Ordering Dr: Sarah Pizano MD ST UDY: [...] at 21:50 EDT , S titi support [phone], CC: Sarah Pizano MD Cytology Supervisor: Signed 03-Nov-2015 Operative Report Result: Comments: See Note; NOTES: [facility] Medical Records Department [facility] [place] [address] Operative Report MR#: [id number] Acct: [id number] Name: JOSE J COBIAN Rep #: [id number] : 1955 60 From: Bubba Romero MD PCP: Sarah Pizano MD Status: [facility] DATE OF SERVICE: 10/20/2015 DATE [...] indicated. Lidia Romero MD T: NTS JOB: [id number] 11/03/15 9665 <Electronically signed by Bubba Romero MD> Date Bubba Romero MD Co signer Signature (If Indicated): Date CC: aSrah Pizano MD; Bubba Romero Date Dictated: 10/20/15 1351 Date Transcribed: 10/20/151350 Cytology Supervisor: Signed 20-Oct-2015 Cerv Spine 2 or 3 Views Result: Comments: See Note; NOTES: [facility] Imaging Services [address] [place] [address] Verdana 4d Cerv Spine 2 or 3 Views MR#: [id number] Acct: [id number] Name: JOSE J NOWAK Rep #: [id number] : 1955 F 60 From: Bartolome Patel MD PCP: Sarah Pizano MD Status: [facility] Study: Cerv Spine 2 or 3 Views Date of Exam: 10/20/15 Exam# [id number] Ordering Dr: Bubba Romero MD STUDY: X-RAY [...] Bartolome Patel MD at 13:45 EDT Tel [phone], Service support [phone], RAD/Cerv Spine 2 or 3 Views IMPRESSION: Fluoroscopic services provided for right 4 through C7 facet block. Electronically Signed: Bartolome Patel MD at 13:45 EDT Tel [phone], Service support [phone], CC: Sarah Pizano MD; Bubba Romero Cytology Supervisor: Signed 18-Aug-2015 Operative Report Result: Comments: See Note; NOTES: [facility] Medical Records Department [address] [place] [address] Operative Report MR#: [id number] Acct: [id number] Name: JOSE J COBIAN Denise Rep #: [id number] : 1955 60 From: Bubba Romero MD PCP: Sarah Pizano MD Status: [facility] DATE OF SERVICE: 08/04/2015 DATE [...] if indicate d. Bubba Romero MD T: [facility] JOB: [id number] 08/18/15 0927 <Electronically signed by Bubba Romero MD> Date Bubba [place] MD Cosigner Signature (If Indicated): Date CC: Sarah Piznao MD; Bubba Romero Date Dictated: 08/04/151432 Date Transcribed: 08/04/151432 Cytology Supervisor: Signed 04-Aug-2015 Cerv Spine 2 or 3 Views Result: Comments: See Note; NOTES: [facility] Imaging Services [address] [place] [address] Verdana 4d Cerv Spine 2 or 3 Views MR#: [id number] Acct: [id number] Name: JOSE J NOWAK Rep #: [id number] : 1955 F 60 From: Kirk Wall MD PCP: Sarah Pizano MD Status: [facility] Study: Cerv Spine 2 or 3 Views Date of Exam: 08/04/15 Exam# [id number] Ordering Dr: Osiel Romero MD STUDY: X-RAY [...] MD at 16:28 EST , Service support [phone], RAD/Cerv Spine 2 or 3 Views IMPRESSION: Needle positions as above. Electronically Signed: Kirk Wall MD at 16:28 EST , Service support [phone], CC: Sarah Pizano MD; Bubba Romero Cytology Supervisor: Signed 02-Jul-2015 Hip min 2 Views Result: Comments: See Note; NOTES: [facility] Imaging Services [address] [place] [address] Verdana 4d Hip min 2 Views MR#: [id number] Acct: [id number] Name: VIRAJ COBIAN Rep #: [id number] : 1955 F 60 From: Tuan Boyd MD PCP: Sarah Pizano MD Status: REG CLI Study: Hip min 2 Views Date of Exam: 07/02/15 Exam# [id number] Ordering Dr: Sarah Pizano MD S DY: [...] at 12:42 EST Tel , Service support [phone], Fax RAD/Hip min 2 Views IMPRESSION: Normal x-ray examination of the hip. Electronically Signed: Lucius Boyd MD at 12:42 EST Tel , Linnea e support [phone], CC: Sarah Pizano MD Cytology Supervisor: Signed 24-Jun-2015 Pelvis 1 or 2 Views Result: Comments: See Note; NOTES: [facility] Imaging Services [address] [place] [address] Verdana 4d Pelvis 1 or 2 Views MR#: [id number] Acct: [id number] Name: JOSE J COBIAN Rep #: [id number] : 1955 F 60 From: Prosper Dumont MD PCP: Sarah Pizano MD Status: REG CLI Study: Pelvis 1 or 2 Views Date of Exam: 06/24/15 Exam# [id number] Ordering Dr: Tuan Pizano MD STUDY: X-RAY [...] at 11:20 EST Tel , Service support [phone], RAD/Pelvis 1 or 2 Views IMPRESS ION: There is narrowing with cortical sclerosis and osteophyte formation of the sacroiliac joint consistent with degenerative osteoarthritic changes. Electronically Signed: Lavell Dumont MD 08/26 at 11:20 EST Tel , Service support [phone], CC: Sarah Pizano MD Cytology Supervisor: Signed 07-Feb-2015 Chest PA and Lateral Result: Comments: See Note; NOTES: [facility] Imaging Services [address] [place] [address] Radiology Report MR#: [id number] Acct: [id number] Name: JOSE J COBIAN Rep #: [id number] : 1955 F 59 From: Baldemar Torres DO PCP: Sarah Pizano MD Status: REG CLI Study: Chest PA and Lateral Date of Exam: 02/07/15 Exam# [id number] Ordering Dr: Pamella Saavedra STUDY: X-RAY CHES [...] Baldemar Torres DO at 19:14 EDT Tel [phone], Service support , RAD/Chest PA and Lateral IMPRESSION: No acute cardiopulmonary disease or interval change. Electronically Signed: Baldemar Torres DO at 19: 14 EDT Tel [phone], Service support [phone], CC: Pamella Saavedra; Sarah Pizano MD Cytology Supervisor: Signed 05-Feb-2014 Katie Santillann Digital & CAD Result: Comments: See Note; NOTES: [facility] Imaging Services [address] [place] [address] Breast Imaging Report MR#: [id number] Acct: [id number] Name: JOSE J COBIAN Rep #: [id number] : 1955 F 58 From: Bartolome Patel MD PCP: Sarah Pizano MD Status: REG CLI Exam# [id number] Ordering Dr: Sarah Pizano MD MAMMOGRAPHY - [...] Bartolome Patel MD at 13:16 EDT Tel [phone], Service support [phone], CC: Sarah Pizano MD Cytology Supervisor: Signed 06-Jun-2013 Abdomen/Pelvis with Contrast Result: Comments: See Note; NOTES: [facility] Imaging Services [address] [place] [address] CAT Scan Report MR#: [id number] Acct: [id number] Name: JOSE J COBIAN Rep #: [id number] : 1955 F 58 From: Tuan Atkins MD PCP: Sarah Pizano MD Status: REG CLI Study: Abdomen/Pelvis with Contrast Date of Exam: 06/06/13 Exam# [id number] Ordering Dr: Sarah Pizano MD STUD Y: [...] M.D. at 0:12 EST , Service support [phone], CC: Sarah Pizano MD Cytology Supervisor: Signed Immunization Name Dates Details Influenza (3 [...] Lives with spouse. 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0 (Normal) UA - BLOOD Negative (Normal) UA - SPECIFIC GRAVITY 1.010 (Normal) UA - KETONES Negative mg/dL (Normal) UA - BILIRUBIN Negative (Normal) UA - GLUCOSE Negative (Normal) 03-Apr-20188:00 Protime w/INR Fingerstick Comments: [facility] LaboratoryPoint of [address] [place], [place] [address] INR ISTAT 1.10 (Normal) Comments: Critical Value > 3.5 PROTIME ISTAT 13.7 {SEC} (Normal) Range: 11.9-14.4 Comments: Reference Range 11.9 - 14.4 :23 Amylase 89 U/L (Normal) Comments: PATIENT NOT FASTINGPERFORMED BY: LabCoGreystone Park Psychiatric HospitalQqdvdi7464 [facility] [id number] Range: 31-124 09-Ert-243772:23 CBC With Differential/Platelet Comments: PATIENT NOT FASTINGPERFORMED BY: [facility]CoG[facility] Psychiatric HospitalIxjgjy9226 [facility] [id number] Immature Grans (Abs) 0.0 {x10E3/uL} (Normal) Range: [...] 3.77-5.28 WBC 4.2 {x10E3/uL} (Normal) Range: 3.4-10.8 88-Gbx-652702:23 Comp. Metabolic Panel (14) Comments: PATIENT NOT FASTINGPERFORMED BY: [facility] InstituteGreystone Park Psychiatric HospitalGgipfi3244 [facility] [id number] ALT (SGPT) 18 [iU]/L (Normal) Range: 0-32 [...] U/L (Abnormal) Comments: PATIENT NOT FASTINGPERFORMED BY: [facility] InstituteGreystone Park Psychiatric HospitalNgswja8011 [facility] [id number] 4:23 Range: 14-72 67-Tsc-696466:23 Urinalysis, Routine Comments: PATIENT NOT FASTINGPERFORMED BY: LabCoGrey[facility] Psychiatric HospitalRecfmr67[address] [place] [id number] Microscopic Examination MICNIP (Normal) Comments: Microscopic not indicated and not performed. Nitrite, Urine Negative (Normal) Urobilinogen,Semi-Qn 1.0 mg/dL (Normal) Range: 0.2-1.0 Bilirubin Negative (Normal) Occult Blood Negative (Normal) Ketones Negative (Normal) Glucose Negative (Normal) Protein Negative (Normal) WBC Esterase Negative (Normal) Appearance Clear (Normal) Urine-Color Yellow (Normal) pH 6.0 (Normal) Range: 5.0-7.5 Specific Redwood 1.020 (Normal) Range: 1.005-1.030 :42 Protime w/INR Fingerstick Comments: [facility] LaboratoryPoint of [address]ze[address] [place], [place] [address] INR ISTAT 1.00 (Normal) Comments: Critical Value > 3.5 PROTIME ISTAT 12.4 {SEC} (Normal) Range: 11.9-14.4 Comments: Reference Range 11.9 - 14.4 36-Uqr-462205:14 CBC W/Diff, Automated Comments: [facility] [address] [place], [address] ; fu 6-19 Absolute Lymph [...] 4.2-5.4 WBC 4.7 K/mm3 (Normal) Range: 4.4-11.0 31-Xlj-190942:14 Comprehensive Metabolic Profil Comments: [facility] [address] [place], [address] GAP 5 (Normal) Range: 5-15 CO2 29.0 [...] A.D.A. criteria.Please note revised GLUCOSE reference range fqwcbqctu50/02/2018. 06-Wlh-318392:14 Ferritin Comments: [facility] [address] [place], [address] FERRITIN 82 ng/mL (Normal) Range: 8-252 59-Hyl-025060:14 Vitamin B12 558 pg/mL (Normal) Comments: [place] [address] [address] [place], [address] Range: 211-911 05-Sep-20178:07 Protime w/INR Fingerstick Comments: [facility] LaboratoryPoint [place] [address] [address] [place] [address] INR ISTAT 1.30 (Normal) Comments: Critical Value > 3.5 PROTIME ISTAT 14.9 {SEC} (Abnormal) Range: 11.9-14.4 Comments: Reference Range 11.9 - 14.4 08-Aug-20179:10 Protime w/INR Fingerstick Comments: [place] [address] [address] [place] [address] INR ISTAT 1.10 (Normal) Comments: Critical Value > 3.5 PROTIME ISTAT 13.0 {SEC} (Normal) Range: 11.9-14.4 Comments: Reference Range 11.9 - 14.4 67-Suk-168469:32 Culture, Blood (WB) Comments: [place] [address] [address] [place], [id number] CUB See Note (Normal) Comments: Has pt arrived? Y Comments: DR. Mello growth in 5 days. 53-Pzx-431385:25 CBC W/Diff, Automated Comments: Comments: DR Cui [facility] [address] [place], [address] Absolute Lymph 1.68 {X10_3/ul} (Normal) [...] 4.2-5.4 WBC 3.9 K/mm3 (Abnormal) Range: 4.4-11.0 83-Dac-699141:25 Culture, Blood (WB) Comments: [facility] [address] [place], [address] CUB See Note (Normal) Comments: Has pt arrived? Y Comments: DR. Mello growth in 5 days. 75-Tba-722305:25 Erythrocyte Sed Rate Comments: Comments: DR Cui [facility] [address] [place], [address] SED RATE 8 mm/h (Normal) Range: 0-30 75-Khs-925708:25 Ferritin Comments: Comments: [facility] Tjgbyhnbwo0236 [address]ae[address], [address] FERRITIN 83 ng/mL (Normal) Range: 8-252 66-Wyv-572571:25 Vitamin D,25 Hydroxy Comments: Order Date: 07/20/17[facility] [address] [place], [address] Vitamin D 25-OH 34.6 ng/mL (Normal) Comments: Vitamin D 25(OH) Status Range Deficiency <20 ng/mL (50nmol/L) Insuffciency 20 - 30 ng/mL (50 - 75 nmol/L) Sufficiency 30 - 100 ng/mL (75 - 250 nmol/L) Toxicity >100 ng/mL (>250 nmol/L) 59-Kea-302082:10 Culture, Urine Comments: [facility] Ptproljkao[address] [place], [address] CUUR See Note (Normal) Comments: Order Date: 07/20/17 Comments: DR PIZANO Urine CultureCulture exhibits no growth. 87-Srd-604065:10 Urinalysis, Complete Comments: Order Date: 07/20/17Has pt arrived? YComments: DR Morales was Urine Obtained? [facility] [address] [place], [address] MUCUS, URINE 0 SEEN {/hpf} (Normal) [...] Yellow (Normal) :48 Protime w/INR Fingerstick Comments: [place] [address] [place] [address] INR ISTAT 1.10 (Normal) Comments: Critical Value > 3.5 PROTIME ISTAT 13.2 {SEC} (Normal) Range: 11.9-14.4 Comments: Reference Range 11.9 - 14.4 :30 Protime w/INR Fingerstick Comments: [place] [address] [place] [address] INR ISTAT 1.10 (Normal) Comments: Critical Value > 3.5 PROTIME ISTAT 12.8 {SEC} (Normal) Range: 11.9-14.4 Comments: Reference Range 11.9 - 14.4 :44 INR Fingerstick Comments: [place] [address] [place] [address] INR ISTAT 1.10 (Normal) Comments: Critical Value > 3.5 :44 Prothrombin Time Fingerstick Comments: [place] [address] [place] [address] PROTIME ISTAT 13.6 {SEC} (Normal) Range: 11.9-14.4 Comments: Reference Range 11.9 - 14.4 95-Gnf-058029:17 HgA1C , Office (95660) HgA1C , Office 5.7 % (Normal) Range: 4.6 - 7.1 09-Cjc-966397:08 Metabolic Panel, Basic Comments: PATIENT NOT FASTINGPERFORMED BY: [facility] Eioiib4730 [facility] [id number] (88349) Calcium, Serum 9.1 mg/dL (Normal) Range: 8.7-10.3 [...] Glucose, Serum 97 mg/dL (Normal) Range: 65-99 79-Hnk-406121:08 CBC (Auto) (90684) Comments: PATIENT NOT FASTINGPERFORMED BY: CREOpoint6370 [place] [facility] [id number] Platelets 306 {x10E3/uL} (Normal) Range: 150-379 RDW 15.6 % (Abnormal) Range: 12.3-15.4 MCHC 32.9 g/dL (Normal) Range: 31.5-35.7 MCH 28.3 pg (Normal) Range: 26.6-33.0 MCV 86 fL (Normal) Range: 79-97 Hematocrit 35.9 % (Normal) Range: 34.0-46.6 Hemoglobin 11.8 g/dL (Normal) Range: 11.1-15.9 RBC 4.17 {x10E6/uL} (Normal) Range: 3.77-5.28 WBC 4.6 {x10E3/uL} (Normal) Range: 3.4-10.8 39-Qlz-092281:08 URINALYSIS W/O MICRO (06747) Comments: PATIENT NOT FASTINGPERFORMED BY: CREOpoint6370 y [facility]Critical [facility] hospital [id number] Microscopic Examination MICNIP (Normal) Comments: Microscopic not indicated and not performed. Nitrite, Urine Negative (Normal) Urobilinogen,Semi-Qn 0.2 mg/dL (Normal) Range: 0.2-1.0 Bilirubin Negative (Normal) Occult Blood Negative (Normal) Ketones Negative (Normal) Glucose Negative (Normal) Protein Negative (Normal) WBC Esterase Negative (Normal) Appearance Clear (Normal) Urine-Color Yellow (Normal) pH 6.0 (Normal) Range: 5.0-7.5 Specific Redwood 1.013 (Normal) Range: 1.005-1.030 97-Mdx-654614:08 COMPLEMENT C4 (32988) Comments: PATIENT NOT FASTINGPERFORMED BY: [facility]6370 [facility] [id number] Complement C4, Serum 16 mg/dL (Normal) Range: 14-44 70-Meh-377606:08 COMPLEMENT C3 (04904) Comments: PATIENT NOT FASTINGPERFORMED BY: [address] [id number] Complement C3, Serum 103 mg/dL (Normal) Range: 82-167 39-Dcd-371404:08 DNA ANTIBODY-NATV/DBL ST (98861) Comments: PATIENT NOT FASTINGPERFORMED BY: [address] [id number] test code 262330 Anti-DNA (DS) Ab Qn <1 {IU/mL} (Normal) Range: 0-9 Comments: Negative <5 Equivocal 5 - 9 Positive >9 66-Egn-525247:08 Sed Rate Erythrocyte (67870) Comments: PATIENT NOT FASTINGPERFORMED BY: [place] [address] [facility] [id number] Sedimentation Rate-Westergren 4 mm/h (Normal) Range: 0-40 89-Tsl-161353:08 DESIRAE (ANTINUCLEAR ANTIBODY) Comments: PATIENT NOT FASTINGPERFORMED BY: [address] [id number] (20765) DESIRAE Direct Negative (Normal) 3-Jle-319908:04 Prothrombin Time w/INR Comments: [facility] [address] [place], [place], [address] INR 1.5 (Normal) PROTIME 17.8 s (Abnormal) Range: 11.7-14.9 08-Tgf-850970:45 Prothrombin Time w/INR Comments: [facility] [address] [place], [place], [address](217) INR 3.0 (Normal) PROTIME 30.3 s (Abnormal) Range: 11.7-14.9 :51 Serum Creatinine AND GFR Comments: [facility] [address] [place], [address] EST GFR - AA 90 mL/min (Normal) Comments: GFR Calc EST GFR 74 mL/min (Normal) Comments: Non- GFR Calc CREAT,SERUM 0.83 mg/dL (Normal) Range: 0.55-1.02 Comments: The validity of the calculated GFR AND GFRAA in patients over70 years has not been determined. Clinical correlation isessential. :21 LIPASE (04182) Comments: PATIENT NOT FASTINGPERFORMED BY: [facility] Ompeiu1206 Vila RoadDublin [place] [id number] Lipase, Serum 46 U/L (Normal) Range: 14-72 Comments: Please note reference interval change :21 AMYLASE (35007) Comments: PATIENT NOT FASTINGPERFORMED BY: CB [facility] Cnsxbx4358 Vila RoadDublin [place] [id number] Amylase, Serum 65 U/L (Normal) Range: 31-124 5-Gml-379748:21 CALCIFIDIOL (46580) VIT D 25 Comments: PATIENT NOT FASTINGPERFORMED BY: CB [facility] Kwqcys8647 Vila RoadDublin [place] [id number] Vitamin D, 25-Hydroxy 25.8 ng/mL (Abnormal) Range: 30.0-100.0 Comments: Vitamin D deficiency has been defined by the Queen ofMedicine and an Endocrine Society practice guideline as alevel of serum 25-OH vitamin D less than 20 ng/mL (1,2).The Endocrine Society went on to further define vitamin Dinsufficiency as a level between 21 and 29 ng/mL (2).1. IOM (Queen of Medicine). 2010. Dietary reference intakes for calcium and D. [place]: The National Academies Press.2. Candelaria MF, Janey ELIAS, Yolande GROSS, et al. Evaluation, treatment, and prevention of vitamin D deficiency: an Endocrine Society clinical practice guideline. JCEM. 2010; 96(7):1911-30. 1-Yxy-350295:21 Ferritin (76367) Comments: PATIENT NOT FASTINGPERFORMED BY: MONA [facility] Qfyftd[address] PadProofScotland Memorial Hospitalin [place] [id number]; fu 10-27 db Ferritin, Serum 10 ng/mL (Abnormal) Range: 15-150 0-Guj-279829:21 Vitamin B-12 (cyanocobalamin) Comments: PATIENT NOT FASTINGPERFORMED BY: [facility] Iabtzo9225 [facility] [id number] (12636) Vitamin B12 1888 pg/mL (Abnormal) Range: 211-946 2-Fkz-653030:21 METABOLIC PANEL, COMPREHENSIVE Comments: PATIENT NOT FASTINGPERFORMED BY: MONA [facility] Glwwht[address] PadProofCritical access hospital [id number] (77899) ALT (SGPT) 11 [iU]/L (Normal) Range: 0-32 [...] Glucose, Serum 101 mg/dL (Abnormal) Range: 65-99 3-Ocv-882232:21 CBC with auto diff Comments: PATIENT NOT FASTINGPERFORMED BY: MONA [facility] Eywxtu[address] [place] [id number] Information: CLIENT DRAW (20682) Immature Grans (Abs) 0.0 {x10E3/uL} (Normal) Range: [...] 3.77-5.28 WBC 5.7 {x10E3/uL} (Normal) Range: 3.4-10.8 57-Wcx-246690:14 Prothrombin Time w/INR Comments: [facility] [address] [place], [address] INR 1.9 (Normal) Comments: ADDENDA: handled by cardio PROTIME 21.0 s (Abnormal) Range: 11.7-14.9 :57 HEPATIC FUNCTION PANEL Comments: PATIENT NOT FASTINGPERFORMED BY: [facility]6370 [facility] [id number] (69632) ALT (SGPT) 15 [iU]/L (Normal) Range: 0-32 AST (SGOT) 20 [iU]/L (Normal) Range: 0-40 Alkaline Phosphatase, S 114 [iU]/L (Normal) Range: 39-117 Bilirubin, Direct 0.10 mg/dL (Normal) Range: 0.00-0.40 Comments: Please note reference interval change Bilirubin, Total <0.2 mg/dL (Normal) Range: 0.0-1.2 Albumin, Serum 4.9 g/dL (Abnormal) Range: 3.6-4.8 Protein, Total, Serum 7.1 g/dL (Normal) Range: 6.0-8.5 :57 IGA/IGD/IGG/IGM-EACH (95517) Comments: PATIENT NOT FASTINGPERFORMED BY: [facility]6370 [facility] [id number] Immunoglobulin E, Total 50 {IU/mL} (Normal) Range: 0-100 Immunoglobulin M, Qn, Serum 43 mg/dL (Normal) Range: 26-217 Immunoglobulin A, Qn, Serum 131 mg/dL (Normal) Range: 87-352 Immunoglobulin G, Qn, Serum 753 mg/dL (Normal) Range: 700-1600 15-Oly-100178:57 EBV ACUTE PFOF IgG/IgM Comments: PATIENT NOT FASTINGPERFORMED BY: [facility]6370 [facility] [id number] 143659 (34050) Interpretation: SPR (Normal) Comments: EBV Interpretation Chart [...] (LACTATE DEHYDROGENASE) Comments: PATIENT NOT FASTINGPERFORMED BY: [facility]6370 [facility] [id number] (78723) LDH 191 [iU]/L (Normal) Range: 119-226 33-Jgz-098532:57 HIV-1 & 2 ANTBDY-SNGL SHAWN Comments: PATIENT NOT FASTINGPERFORMED BY: [facility]6370 [facility] [id number] (83961) HIV Screen 4th Generation wRfx Non Reactive (Normal) :57 HEPATITIS PANEL (04558) Comments: PATIENT NOT FASTINGPERFORMED BY: [facility]6370 [facility] [id number] Hep C Virus Ab 0.1 {s/co_ratio} (Normal) Range: 0.0-0.9 Comments: Negative: < 0.8 Indeterminate: 0.8 - 0.9 Positive: > 0.9 . The CDC recommends that a positive HCV antibody result be followed up with a HCV Nucleic Acid Amplification test (413981). Hep B Core Ab, IgM Negative (Normal) HBsAg Screen Negative (Normal) Hep A Ab, IgM Negative (Normal) 4-Qgi-326932:56 Culture, Blood (WB) Comments: [facility] [address] [place], [place], [address] CUB See Note (Normal) Comments: BCNo growth in 5 days. 1-Mgv-338267:56 EBV Acute Prof IgG / IgM Comments: [...] Present - Antibody Ab sentPerformed at: [address] [id number] Director: Neo Campos PhD, Phone: [phone] EB-NAg HmS81498 136.0 U/mL (Abnormal) Range: 0.0-17.9 Comments: Negative <18.0 Equivocal 18.0 - 21.9 Positive >21.9 EB-VCA VyU54345 255.0 U/mL (Abnormal) Range: 0.0-17.9 Comments: Negative <18.0 Equivocal 18.0 - 21.9 Positive >21.9 EB-EA IgG 94835 18.4 U/mL (Abnormal) Range: 0.0-8.9 Comments: Hepatitis A, Hepatitis C and HIV antibodies may cross-reactwith this assay. Negative < 9.0 Equivocal 9.0 - 10.9 Positive >10.9 EB-VCA OnC90778 36.1 U/mL (Abnormal) Range: 0.0-35.9 Comments: A second sample should be collected and tested no less than2-4 weeks. Negative <36.0 Equivocal 36.0 - 43.9 Positive >43.9 3-Nou-035859:56 Ferritin Comments: [facility] [address] [place], [address] FERRITIN 34 ng/mL (Normal) Range: 8-252 2-Oyp-798523:56 Vitamin D,25 Hydroxy Comments: [facility] Asjyqcihdc1291 [facility] [place], [address] Vitamin D 25-OH 29.2 ng/mL (Normal) Comments: Vitamin D 25(OH) Status Range Deficiency <20 ng/mL (50nmol/L) Insuffciency 20 - 30 ng/mL (50 - 75 nmol/L) Sufficiency 30 - 100 ng/mL (75 - 250 nmol/L) Toxicity >100 ng/mL (>250 nmol/L) 9-Qec-041728:03 INR Fingerstick Comments: [place] [address] [place] [address] INR ISTAT 1.00 (Normal) Comments: Critical Value > 3.5 0-Cmw-517526:03 Prothrombin Time Fingerstick Comments: [place] [address] [place] [address] PROTIME ISTAT 12.1 {SEC} (Normal) Range: 11.9-14.4 Comments: Reference Range 11.9 - 14.4 38-Ppv-746009:55 Prothrombin Time w/INR Comments: [place] [address] [place], [address] INR 2.6 (Normal) PROTIME 26.7 s (Abnormal) Range: 11.7-14.9 :44 GRETTA CULTURE-OTHER (85156) Comments: PATIENT NOT FASTINGPERFORMED BY: [facility] [id number] Information: THROAT SRC:TH Result 1 RRF (Normal) Comments: Routine respiratory rajwinder Upper Respiratory Culture Final report (Normal) 92-Zms-762911:31 Rapid Flu (68059 x 2) Influenza A Ag negative (Normal) 84-Adi-845770:31 Rapid Strep Test, Office (16733) Rapid Strep Test, Office Negative (Normal) 65-Tvy-503015:46 Microscopic Examination Comments: PATIENT NOT FASTINGPERFORMED BY: [facility] Cpwfeb9191 y primeCritical access hospital [id number] Bacteria Few (Normal) Mucus Threads Present (Normal) Crystal Type Calcium Oxalate (Normal) Crystals Present (Abnormal) Epithelial Cells (non renal) 0-10 {/hpf} (Normal) Range: 0 - 10 RBC 0-2 {/hpf} (Normal) Range: 0 - 2 WBC 0-5 {/hpf} (Normal) Range: 0 - 5 86-Ytw-103923:46 URINALYSIS (12688) Comments: PATIENT NOT FASTINGPERFORMED BY: LookwiderGreystone Park Psychiatric HospitalAdkway2068 [facility] [id number] Microscopic Examination See below: (Normal) Comments: Microscopic was indicated and was performed. Nitrite, Urine Negative (Normal) Urobilinogen,Semi-Qn 1.0 mg/dL (Normal) Range: 0.2-1.0 Bilirubin Negative (Normal) Occult Blood Negative (Normal) Ketones Negative (Normal) Glucose Negative (Normal) Protein Negative (Normal) WBC Esterase 1+ (Abnormal) Appearance Clear (Normal) Urine-Color Yellow (Normal) pH 6.0 (Normal) Range: 5.0-7.5 Specific Redwood 1.018 (Normal) Range: 1.005-1.030 13-Pcl-524843:46 CBC WITH MANUAL DIFF (80633) Comments: PATIENT NOT FASTINGPERFORMED BY: LookwiderGreystone Park Psychiatric HospitalUlzthb3971 [facility] [id number] Immature Grans (Abs) 0.0 {x10E3/uL} (Normal) Range: [...] 3.77-5.28 WBC 4.5 {x10E3/uL} (Normal) Range: 3.4-10.8 02-Sjr-350985:46 Ferritin (70439) Comments: PATIENT NOT FASTINGPERFORMED BY: [facility] InstituteGreystone Park Psychiatric HospitalQirang0942 [facility] [id number] Ferritin, Serum 10 ng/mL (Abnormal) Range: 15-150 82-Vbk-231982:46 Metabolic Panel, Comprehensive Comments: PATIENT NOT FASTINGPERFORMED BY: [facility] PartnersCoGreystone Park Psychiatric HospitalZgoyey4825 [facility] [id number] (46687) ALT (SGPT) 18 [iU]/L (Normal) Range: 0-32 [...] Glucose, Serum 86 mg/dL (Normal) Range: 65-99 75-Ksb-229348:46 AMYLASE (88935) Comments: PATIENT NOT FASTINGPERFORMED BY: LabCoGreystone Park Psychiatric HospitalJidcke9458 [facility] [id number] Amylase, Serum 81 U/L (Normal) Range: 31-124 92-Jnl-963928:46 LIPASE (45063) Comments: PATIENT NOT FASTINGPERFORMED BY: LabCoGrey[facility] Park Psychiatric HospitalXovkgk5392 [facility] [id number] Lipase, Serum 79 U/L (Abnormal) Range: 0-59 77-Hwn-925361:33 Prothrombin Time w/INR Comments: Order Date: 03/23/16Order Date: 03/23/16Interface Comments: Reason:Order Date: 03/23/16[facility] [address] [place], [place], [address] INR 2.0 (Normal) PROTIME 22.3 s (Abnormal) Range: 11.7-14.9 18-Mcb-832893:36 Prothrombin Time w/INR Comments: [facility] [address] [place], [place], [address] INR 1.4 (Normal) PROTIME 17.1 s (Abnormal) Range: 11.7-14.9 08-Rwn-102710:20 Prothrombin Time w/INR Comments: Order Date: 05/11/16Order Info: 6301-6 - *PT/INR - Standing OrderComments: Standing Order-Reason:Order Date: 05/11/16Order Info: 6301-6 - *PT/INR - Standing OrderComments: Standing Order- Reason:[facility] [address] [place], [place], [address] INR 1.2 (Normal) PROTIME 14.8 s (Normal) Range: 11.7-14.9 1-Gvh-008720:50 Prothrombin Time w/INR Comments: Order Date: 05/11/16Order Info: 6301-6 - *PT/INR - Standing OrderComments: Standing Order-Reason:Order Date: 05/11/16Order Info: 6301-6 - *PT/INR - Standing OrderComments: Standing Order-Reason:Order Da te: 05/11/16Order Info: 6301-6 - *PT/INR - Standing OrderComments: Standing Order-Reason:[facility] [address] [place], [place], [address] INR 1.2 (Normal) PROTIME 15.1 s (Abnormal) Range: 11.7-14.9 :00 Culture, Nose Comments: [facility] [address] [place], [place], [address] CUN See Note (Normal) Comments: Comments: NARESGram StainGram Stain Rare White Blood Cells 1+ Epithelial cells 4+ Gram positive rods Nasoph. CultNo Haemophilus, Streptococcus pneumoniae, beta-hemolytic Streptococcus or Staphylococcus aureus isolated. :00 Culture, Throat Comments: [facility] [address] [place], [place], [address] CUT See Note (Normal) Comments: Comments: NARESCulture, ThroatNo Haemophilus, Streptococcus pneumoniae, beta-hemolytic Streptococcus or Staphylococcus aureus isolated. 33-Qrc-667168:05 Rapid Flu (97574 x 2) Influenza A Ag neg (Normal) :45 CBC W/Diff, Automated Comments: Order Date: 03/18/16[facility] Date[facility] [address]ensrkrsip[address] [place], [place], [address] Absolute Lymph 2.95 {X10_3/ul} (Normal) Range: 0.83-4.51 [...] 1'CKMB' Serial Specimen #1, #2 or #3? 1[facility] Wgwufoxehj0001 [facility] [place], [address] CKRI 3.2 % (Abnormal) Range: 0.0-1.4 Comments: RELATIVE INDEX >1.5% IS PRESUMPTIVELY POSITIVE CPKMB 1.8 ng/mL (Normal) Range: 0.0-5.0 Comments: CK-MB and RI Interpretation MB Relative Index Non-AMI <or= 5 NA Indeterminate > 5 <or= 4 AMI > 5 > 4 CPK TOTAL 57 U/L (Normal) Range: 26-192 :45 Erythrocyte Sed Rate Comments: Order Date: 03/18/16Order Date: 03/18/16[facility] [address] [place], [address] SED RATE 1 mm/h (Normal) Range: 0-30 :45 Myoglobin, Serum Comments: Order Date: 03/18/16[facility] (refer to report for specific site)refer to report for address and phone number Myoglobin, Ser 23 ng/mL (Abnormal) Range: 25-58 Comments: Performed at: - [facility] [id number] Director: Neo Campos PhD, Phone: [phone] 02-Bkp-368312:45 Troponin-I Comments: Order Date: 03/18/16TROP ADDED 03/19/16Order Date: 03/18/16'TROP' Serial specimen #1, #2, #3, or #4: 1'CKMB' Serial Specimen #1, #2 or #3? 00 Adkins [place] [address] Oamgiuemsc8881 Camilo Garcia [place], [id number] TROPONIN-I < 0.02 ng/mL (Normal) Comments: TROPONIN-I EXPECTED VALUES <0.05 NEGATIVE 0.06 - 0.59 AT RISK OF MD > OR = 0.60 SUGGEST MD 94-Ufp-488234:00 Basic Metabolic Profile (BMP) Comments: 'TROP' Serial specimen #1, #2, #3, or #4: [address] [place] [address] Xedyjtcztd6628 Camilo Garcia [place], [id number] GAP 6 (Normal) Range: 5-15 CO2 26.0 [...] Range: 70-110 :00 CBC W/Diff, Automated Comments: [facility] Onyoumwtbh4603 [place], [address] Absolute Lymph 2.27 {X10_3/ul} (Normal) Range: 0.83-4.51 [...] 4.2-5.4 WBC 4.9 K/mm3 (Normal) Range: 4.4-11.0 49-Kei-800614:00 Lipase Comments: 'TROP' Serial specimen #1, #2, #3, or #4: [address] [place] [address] Dnzzzusgqb2312 [place], [address] LIPASE 351 U/L (Normal) Range: 73-393 30-Dwl-262157:00 Liver Profile Comments: 'TROP' Serial specimen #1, #2, #3, or #4: [address] [place] [address] Wicawtmkey3401 [place], [address] D BILI 0.15 mg/dL (Normal) Range: 0.00-0.30 T BILI 0.30 mg/dL (Normal) Range: 0.20-1.00 ALT 23 U/L (Normal) Range: 12-78 ALK P 81 U/L (Normal) Range: 50-136 AST 24 U/L (Normal) Range: 15-37 GLOB 2.8 g/dL (Normal) Range: 2.3-3.5 ALB 4.0 g/dL (Normal) Range: 3.4-5.0 T PROT 6.8 g/dL (Normal) Range: 6.4-8.2 57-Ztq-163599:00 Troponin-I Comments: 'TROP' Serial specimen #1, #2, #3, or #4: [address] [place] [address] Iewhvbpepi4251 [place], [address] TROPONIN-I < 0.02 ng/mL (Normal) Comments: TROPONIN-I EXPECTED VALUES <0.05 NEGATIVE 0.06 - 0.59 AT RISK OF MD > OR = 0.60 SUGGEST MD 40-Hyk-163275:08 Osmolality, Urine Comments: Order Date: 02/16/16Has pt arrived? [facility] Vpxkebalzp9219 [place], [address] OSMOLALITY,UR 310 {mOsm/KG} (Normal) Comments: OSMOLALITY URINE REFERENCE INTERVALS 24-hour Urine 300 - 900 mOsm/kg Random Urine 50 - 1400 mOsm/kg After 12 Hr fluid restriction >850 mOsm/kg 06-Ivk-059146:50 Amylase Comments: [facility] Xlgptwdhqb8066 Camilo Whit[address] [place], [place], [id number] PREMA 80 U/L (Normal) Range: 25-115 67-Wao-000606:50 CBC W/Diff, Automated Comments: [facility] [address] [place], [address] Absolute Lymph 1.51 {X10_3/ul} (Normal) Range: [...] 4.2-5.4 WBC 4.3 K/mm3 (Abnormal) Range: 4.4-11.0 15-Lwv-885112:50 Comprehensive Metabolic Profil Comments: [facility] Dvriyagahc5459 [address] [place], [address] GAP 6 (Normal) Range: 5-15 CO2 28.0 [...] 7-18 GLU 98 mg/dL (Normal) Range: 70-110 12-Shp-932041:50 Lipase Comments: [facility] Ltowtnwpam1291 [address]. [place], [place], [id number] LIPASE 424 U/L (Abnormal) Range: 73-393 84-Grm-611218:50 Osmolality, Serum Comments: [facility] Epcdqirlxw6637 [address] Whit[address] [place], [place], [address] OSMOLALITY,SER 275 {mOsm/KG} (Normal) Range: 275-295 61-Ofv-581609:50 Vitamin B12 489 pg/mL (Normal) Comments: [facility] Ztnkzhkxfi1916 Camilo Whitaker [place], [place], [id number] ; will review on 02/19 Range: 211-911 01-Afz-248674:50 Vitamin D,25 Hydroxy Comments: [facility] Hdwklzzkfi0228 BRITT[place], [address] Vitamin D 25-OH 37.6 ng/mL (Normal) Comments: Vitamin D 25(OH) Status Range Deficiency <20 ng/mL (50nmol/L) Insuffciency 20 - 30 ng/mL (50 - 75 nmol/L) Sufficiency 30 - 100 ng/mL (75 - 250 nmol/L) Toxicity >100 ng/mL (>250 nmol/L) 42-Cgn-41240:00 Ferritin Comments: [facility] Masjzradry0728 [place], [address] FERRITIN 13 ng/mL (Normal) Range: 8-252 08-Dbc-95380:00 Lipid Profile Comments: [facility] Mwdpkctfad6298 [place], [address] VLDL 28 mg/dL (Normal) Range: 5-40 [...] 200-240 mg/dL Borderline >240 mg/dL High Risk 7-Glj-156968:40 CBC W/Diff, Automated Comments: Order Date: 09/08/15Has pt arrived? [facility] Lguzbqxmfz2309 [place], [address] Absolute Lymph 1.80 {X10_3/ul} [...] 4.2-5.4 WBC 4.4 K/mm3 (Normal) Range: 4.4-11.0 3-Uvc-254575:40 Comprehensive Metabolic Profil Comments: Order Date: 09/08/15Has pt arrived? [facility] Dwetdktody9197 [facility] [place], [place], [id number] GAP -1 (Abnormal) Range: 5-15 CO2 30.0 [...] 7-18 GLU 97 mg/dL (Normal) Range: 70-110 7-Rmw-487368:16 Amylase Comments: [facility] Mbupammort5463 [place], [address] PREMA 95 U/L (Normal) Range: 25-115 0-Ocv-136917:16 Lipase Comments: [facility] Gnlkfpaiow0618 [facility] [place], [address] LIPASE 568 U/L (Abnormal) Range: 73-393 1-Yub-676029:29 Influenza A&B Viral Comments: PATIENT NOT FASTINGPERFORMED BY: [facility] [id number] Information: SRC:NOS [id number] Culture (04812) Viral Culture,Rapid,Influenza FLUABN (Normal) Comments: Negative:No Influenza A or B detected. 9-Mha-921889:49 Rapid Flu (19116 x 2) Influenza A Ag neg (Normal) 33-Yjb-235425:01 CBC (Auto) (23666) Comments: now and in six months (approximately); PATIENT WAS FASTINGPERFORMED BY: [facility]6370 [facility] [id number] Information: [id number], [id number] Platelets 357 {x10E3/uL} (Normal) Range: 150-379 RDW 14.6 % (Normal) Range: 12.3-15.4 MCHC 34.1 g/dL (Normal) Range: 31.5-35.7 MCH 29.8 pg (Normal) Range: 26.6-33.0 MCV 88 fL (Normal) Range: 79-97 Hematocrit 37.0 % (Normal) Range: 34.0-46.6 Hemoglobin 12.6 g/dL (Normal) Range: 11.1-15.9 RBC 4.23 {x10E6/uL} (Normal) Range: 3.77-5.28 WBC 5.7 {x10E3/uL} (Normal) Range: 3.4-10.8 92-Lse-211560:01 Metabolic Panel, Basic Comments: now; PATIENT WAS FASTINGPERFORMED BY: [employer] [place] [id number] (74041) Calcium, Serum 9.1 mg/dL (Normal) Range: 8.7-10.2 [...] Glucose, Serum 102 mg/dL (Abnormal) Range: 65-99 94-Qgc-669382:01 CALCIFIDIOL (64720) VIT D 25 Comments: now and in six months (approximately); PATIENT WAS FASTINGPERFORMED BY: Uplike70 [employer] [place] [id number] Vitamin D, 25-Hydroxy 32.8 ng/mL (Normal) Range: 30.0-100.0 Comments: Vitamin D deficiency has been defined by the Queen ofMedicine and an Endocrine Society practice guideline as alevel of serum 25-OH vitamin D less than 20 ng/mL (1,2).The Endocrine Society went on to further define vitamin Dinsufficiency as a level between 21 and 29 ng/mL (2).1. IOM (Queen of Medicine). 2010. Dietary reference intakes for calcium and D. [place]: The National Academies Press.2. Candelaria MF, Janey ELIAS, Yolande GROSS, et al. Evaluation, treatment, and prevention of vitamin D deficiency: an Endocrine Society clinical practice guideline. JCEM. 2010; 96(7):1911-30. 9-Swi-513032:06 Sputum Culture (19350) Comments: PATIENT NOT FASTINGPERFORMED BY: Uplike70 [place] [facility]Cart[facility] EmporiumNov[facility] [id number] Information: [id number] Result 1 RRF (Normal) Comments: Routine respiratory rajwinder Lower Respiratory Culture Final report (Normal) 7-Dtw-398751:12 Rapid Flu (17768 x 2) Influenza A Ag neg a and b (Normal) 28-Qax-827403:01 Urinalysis, Office (73171) UA - LEUKOCYTE ESTERASE Negative (Normal) UA - NITRITE Negative (Normal) URINE UROBILINGN YANCI TIMED Normal mg/dL (Normal) UA - PROTEIN Negative mg/dL (Normal) UA - PH 6.0 (Normal) Comments: 5.5 UA - BLOOD Negative (Normal) UA - SPECIFIC GRAVITY 1.025 (Normal) UA - KETONES Negative mg/dL (Normal) UA - BILIRUBIN Negative (Normal) UA - GLUCOSE Negative (Normal) 92-Zlz-133725:40 Lipase (14448) Comments: PATIENT NOT FASTINGPERFORMED BY: [facility] Longdv3013 [employer] EmpireNov[facility] [id number] Lipase, Serum 113 U/L (Abnormal) Range: 0-59 05-Nmu-106166:40 Amylase (87720) Comments: PATIENT NOT FASTINGPERFORMED BY: Foruforever [facility] Siirrs3511 [employer] EmpireNov[facility] [id number] Information: [id number] Amylase, Serum 104 U/L (Normal) Range: 31-124 1-Hxr-318616:54 Sputum Culture (20745) Comments: PATIENT NOT FASTINGPERFORMED BY: MONA [facility] Suewhs5157 Vila RoadDublin [place] [id number] Information: SRC: THROAT [id number] Result 1 RRF (Normal) Comments: Routine respiratory rajwinder Lower Respiratory Culture Final report (Normal) 6-Uxb-563902:55 Pathology Report Comments: PERFORMED BY: KWCYT [facility] [place] [employer] Ssxvf79483 [facility] [id number] BY: [facility] Dermatopathology Cxhkpxi482 [address] [id number] Information: [id number] See MATER Comments: Material submitted: .PUNCH BIOPSY [...] IS NEGATIVE FOR FUNGAL FORMS.Pathologist provided ICD-9:692.9CPT .868253, 718925 83-Yen-849315:41 Lipid Panel (95022) Comments: PATIENT WAS FASTINGPERFORMED BY: LabCoGreystone Park Psychiatric HospitalKaluui9454 [facility] [id number] LDL/HDL Ratio 1.0 {ratio_units} (Normal) Range: 0.0-3.2 [...] - 169 >19 years 100 - 199 85-Nkh-709603:41 Metabolic Panel, Comments: PATIENT WAS FASTINGPERFORMED BY: [facility] [id number] Information: [id number] Comprehensive (98420) ALT (SGPT) 13 [iU]/L (Normal) Range: 0-32 [...] Glucose, Serum 97 mg/dL (Normal) Range: 65-99 03-Okp-100485:41 Vitamin B-12 (cyanocobalamin) Comments: PATIENT WAS FASTINGPERFORMED BY: [place] [id number] ([address]) Vitamin B12 632 pg/mL (Normal) Range: 211-946 :41 CBC (Auto) (84502) Comments: PATIENT WAS FASTINGPERFORMED BY: [facility]6370 [facility] [id number] Platelets 270 {x10E3/uL} (Normal) Range: 150-379 RDW 13.9 % (Normal) Range: 12.3-15.4 MCHC 32.8 g/dL (Normal) Range: 31.5-35.7 MCH 29.5 pg (Normal) Range: 26.6-33.0 MCV 90 fL (Normal) Range: 79-97 Hematocrit 36.6 % (Normal) Range: 34.0-46.6 Hemoglobin 12.0 g/dL (Normal) Range: 11.1-15.9 RBC 4.07 {x10E6/uL} (Normal) Range: 3.77-5.28 WBC 8.5 {x10E3/uL} (Normal) Range: 3.4-10.8 :41 Ferritin (14400) Comments: PATIENT WAS FASTINGPERFORMED BY: LabMym[facility] Center6370 [facility] [id number] Ferritin, Serum 28 ng/mL (Normal) Range: 15-150 :41 CALCIFIDIOL (25355) VIT D 25 Comments: PATIENT WAS FASTINGPERFORMED BY: LabMymichigan [facility] Center6370 [facility] [id number] Vitamin D, 25-Hydroxy 24.3 ng/mL (Abnormal) Range: 30.0-100.0 Comments: Vitamin D deficiency has been defined by the Queen ofMedicine and an Endocrine Society practice guideline as alevel of serum 25-OH vitamin D less than 20 ng/mL (1,2).The Endocrine Society went on to further define vitamin Dinsufficiency as a level between 21 and 29 ng/mL (2).1. IOM (Queen of Medicine). 2010. Dietary reference intakes for calcium and D. [place]: The National Academies Press.2. Candelaria MF, Janey ELIAS, Yolande GROSS et al. Evaluation, treatment, and prevention of vitamin D deficiency: an Endocrine Society clinical practice guideline. JCEM. 2010; 96(7):1911-30. :55 CBC-Complete Blood Cnt No Diff Comments: Test performed at:[place] [address] [place] [address] MPV 9.5 fL (Normal) Range: 6.2-12.0 PLT [...] Range: 4.4-11.0 :55 Ferritin Comments: Test performed at:[facility] Eozoprlvbc[address] [place] [address] [place] [address] FERRITIN 23 ng/mL (Normal) Range: 8-252 :55 Iron Comments: Test performed at:[facility] [address] [place] [address] IRON 75 ug/dL (Normal) Range: 50-170 :53 CBC W/Diff, Automated Comments: Test performed at:[facility] Ewtgdkjnvh[address] [place] [address] Absolute Lymph 1.57 {X10_3/ul} (Normal) Range: 0.83-4.51 [...] 4.2-5.4 WBC 3.8 K/mm3 (Abnormal) Range: 4.4-11.0 38-Uep-826160:53 Comprehensive Metabolic Profil Comments: Test performed at:[facility] Ovmxnjjdcp3835 [place] [address] GAP 5 (Normal) Range: 5-15 CO2 29.0 [...] 7-18 GLU 99 mg/dL (Normal) Range: 70-110 49-Ozv-139790:53 Ferritin Comments: Test performed at:[facility] Baapnwnhmp45[address] [place] [address] FERRITIN 13 ng/mL (Normal) Range: 8-252 :53 Lipid Profile Comments: Test performed at:[facility] Crldtnkfzz0314 [place] [address] VLDL 19 mg/dL (Normal) Range: [...] > 2000 pg/mL (Abnormal) Comments: Test performed at:[facility] Phnnjlgqsc1653 [place] [address] Range: 211-911 10-Yqk-608277:46 CBC W/Diff, Automated Comments: Test performed at:[facility] Qcpclzsslm9562 [place] [address] Absolute Lymph 1.87 {X10_3/ul} (Normal) [...] 4.2-5.4 WBC 4.1 K/mm3 (Abnormal) Range: 4.4-11.0 62-Slv-308636:46 Comprehensive Metabolic Profil Comments: Test performed at:[facility] Mxoesvvnil5906 Camilo [place], [place] [address] GAP 4 (Abnormal) Range: 5-15 CO2 28.0 [...] 7-18 GLU 70 mg/dL (Normal) Range: 70-110 98-Qxm-330700:46 Vitamin D,25 Hydroxy Comments: Test performed at:[facility] Bpwgujtuyj2398 [place] [address] Vitamin D 25-OH 30.6 ng/mL (Normal) Comments: Vitamin D 25(OH) Status Range Deficiency <20 ng/mL (50nmol/L) Insuffciency 20 - 30 ng/mL (50 - 75 nmol/L) Sufficiency 30 - 100 ng/mL (75 - 250 nmol/L) Toxicity >100 ng/mL (>250 nmol/L) 53-Weu-247664:04 CALCIFIDIOL (89027) VIT D Comments: PATIENT NOT FASTINGPERFORMED BY: [facility] Aijebj7437 [facility] [id number] Information: [id number] 25 Vitamin D, 25-Hydroxy 19.2 ng/mL (Abnormal) Range: 30.0-100.0 Comments: Vitamin D deficiency has been defined by the Queen ofMedicine and an Endocrine Society practice guideline as alevel of serum 25-OH vitamin D less than 20 ng/mL (1,2).The Endocrine Society went on to further define vitamin Dinsufficiency as a level between 21 and 29 ng/mL (2).1. IOM (Queen of Medicine). 2010. Dietary reference intakes for calcium and D. [place]: The National Academies Press.2. Candelaria MF, Janey ELIAS, Yolande GROSS, et al. Evaluation, treatment, and prevention of vitamin D deficiency: an Endocrine Society clinical practice guideline. JCEM. 2010; 96(7):1911-30. 64-Tra-688810:04 Ferritin (23058) Comments: PATIENT NOT FASTINGPERFORMED BY: LabCoTrippeoVmbrkk3749 [employer] [facility] [id number] Ferritin, Serum 34 ng/mL (Normal) Range: 15-150 35-Rtz-596468:05 METABOLIC PANEL, COMPREHENSIVE Comments: PATIENT NOT FASTINGPERFORMED BY: Foruforever [facility] Jhbnfo5509 y [facility]Critical [facility] hospital [id number] (94179) ALT (SGPT) 10 [iU]/L (Normal) Range: 0-32 [...] Glucose, Serum 86 mg/dL (Normal) Range: 65-99 97-Ktn-751110:05 CBC WITH MANUAL DIFF Comments: PATIENT NOT FASTINGPERFORMED BY: MONA [facility] InstituteGreystone Park Psychiatric HospitalTvimck4641 [facility] [id number] Information: [id number],2ND ORDER NO DRAW F EE (78269) Immature Grans (Abs) 0.0 {x10E3/uL} (Normal) Range: [...] 3.77-5.28 WBC 5.2 {x10E3/uL} (Normal) Range: 3.4-10.8 93-Grw-133086:05 CALCIFIDIOL (36036) VIT D 25 Comments: PATIENT NOT FASTINGPERFORMED BY: [facility] PartnersMymichigan Medical Center6370 [facility] [id number] Vitamin D, 25-Hydroxy 19.6 ng/mL (Abnormal) Range: 30.0-100.0 Comments: Vitamin D deficiency has been defined by the Queen ofMedicine and an Endocrine Society practice guideline as alevel of serum 25-OH vitamin D less than 20 ng/mL (1,2).The Endocrine Society went on to further define vitamin Dinsufficiency as a level between 21 and 29 ng/mL (2).1. IOM (Queen of Medicine). 2010. Dietary reference intakes for [...] CHOL 168 mg/dL (Normal) Comments: <200 mg/dL Zcnflbflz658-240 mg/dL Borderline>240 mg/dL High Risk 2-Yyf-606882:51 VITD 38.8 mg/mL (Normal) Comments: Vitamin D 25(OH) Status RangeDeficiency <20 ng/mL (50nmol/L)Insuffciency 20 - 30 ng/mL (50 - 75 nmol/L)Sufficiency 30 - 100 ng/mL (75 - 250 nmol/L)Toxicity >100 ng/mL (>250 nmol/L) 31-Lbq-901283:07 Lipase (36985) Comments: PERFORMED BY: [facility] [id number] Lipase, Serum 67 U/L (Abnormal) Range: 0-59 85-Mpa-914222:07 Amylase (46262) Comments: PERFORMED BY: [facility]PairNov[facility] [id number] Amylase, Serum 92 U/L (Normal) Range: 31-124 24-Oxr-924220:11 Urinalysis, Office (70604) UA - LEUKOCYTE ESTERASE Negative (Normal) UA - NITRITE Negative (Normal) URINE UROBILINGN YANCI TIMED Normal mg/dL (Normal) UA - PROTEIN Negative mg/dL (Normal) UA - PH 5 (Abnormal) Comments: 5.5 UA - BLOOD Negative (Normal) UA - SPECIFIC GRAVITY 1.015 (Normal) UA - KETONES 15 mg/dL (Abnormal) UA - BILIRUBIN Small (Normal) UA - GLUCOSE Negative (Normal) 84-Ipi-690006:28 GRETTA CULTURE-OTHER (96090) Comments: PATIENT NOT FASTINGPERFORMED BY: Foruforever LabCoTouch[facility] [id number] Information: SRC:THRT [id number] Result 1 RRF (Normal) Comments: Routine respiratory rajwinder Upper Respiratory Culture Final report (Normal) 01-Cwj-320136:32 Rapid Strep Test, Office (09257) Rapid Strep Test, Office Negative (Normal) 17-Yir-296153:02 Iron Binding Capacity Comments: PATIENT NOT FASTINGPERFORMED BY: LabCoGreystone Park Psychiatric HospitalWxlpze2703 [facility] [id number] Information: [id number] (TIBC) (00708) Iron Saturation 6 % (Abnormal) Range: 15-55 Iron, Serum 32 ug/dL (Abnormal) Range: 35-155 UIBC 461 ug/dL (Abnormal) Range: 150-375 Iron Bind.Cap.(TIBC) 493 ug/dL (Abnormal) Range: 250-450 04-Upd-851713:02 Ferritin (38346) Comments: PATIENT NOT FASTINGPERFORMED BY: LabCoGreystone Park Psychiatric HospitalRkkluu8862 [facility] [id number] Ferritin, Serum 7 ng/mL (Abnormal) Range: 15-150 :19 PREMA 80 U/L (Normal) Range: 25-115 9-Agw-276689:19 B12 386 pg/mL (Normal) Range: 211-911 :19 [...] CHOL 181 mg/dL (Normal) Comments: <200 mg/dL Vczjjsgel149-098 mg/dL Borderline>240 mg/dL High Risk :19 VITD [...] 7-18 GLU 79 mg/dL (Normal) Range: 70-110 25-Kzh-421425:18 TS Ab SCREEN GEL NEGATIVE (Normal) SCREEN CELL I NEGATIVE (Normal) SCREEN CELL II NEGATIVE (Normal) SCREEN CELL III NEGATIVE (Normal) BLOOD TYPE GEL O POSITIVE (Normal) 88-Gza-095622:17 Metabolic Panel, Comments: PATIENT NOT FASTINGPERFORMED BY: MONA [facility] Bkpxpx7870 [address] [place] [id number] Information: [id number] [facility] (54619) ALT (SGPT) 13 [iU]/L (Normal) Range: 0-32 [...] :41 PREMA 80 U/L (Normal) Range: 25-115 15-Wne-965667:41 CBCD ABSOLUTE NEUT 3.9 3/uL (Normal) Range: [...] s (Normal) Range: 11.9-14.4 :41 VIT D,25 31604 20.3 ng/mL (Abnormal) Range: 30.0-100.0 Comments: Vitamin D deficiency has been defined by the Queen ofMedicine and an Endocrine Society practice guideline as alevel of serum 25-OH vitamin D less than 20 ng/mL (1,2).The Endocrine Society went on to further define vitamin Dinsufficiency as a level between 21 and 29 ng/mL (2).1. IOM (Queen of Medicine). 2010. Dietary reference intakes for calcium and D. Lal [place]: The National Academies Press.2. Candelaria MF, Janey NC, Yolande GROSS, et al. Evaluation, treatment, and prevention of vitamin D deficiency: an Endocrine Society clinical practice guideline. JCEM. 2010; 96(7): 1911-30.Performed at: [address] [id number] Director: Yony San MD, Phone: [phone] at: [facility] LabCo[address] [id number] Director: Era Tinoco MD, Phone: [phone] :[phone] VITD 1,25 15225 44.5 pg/mL (Normal) Range: 10.0-75.0 :09 PREMA [...] Please note:LIPASE revised reference range effective 09. 63-Kil-181374:05 LIPID Comments: COMMENTS: FAX RESULTS TO DR [...] 200-240 mg/dL Borderline >240 mg/dL High Risk 54-Dnb-308786:54 BILAT SCRN DIGITAL & CAD Radiology Report [...] 11/20/10 011 Sign by: Bartolome Patel MD 39-Nyz-401992:54 DEXA BONE DENSITY STUDY (HP) Radiology Report See Note (Normal) Comments: CLINICAL:Female, 55 years old. The patient is postmenopausal. EXAMINATION:DUAL ENERGY X-RAY ABSORPTIOMETRY / DEXA. TECHNIQUE:Bone Mineral Density (BMD) measurements of lumbar spine and bila teralhipswer e obtained using a Next Safety scanner.. COMPARISON:Comparison is made with prior study [...] on 11/20/1030 Sign by: Bartolome Patel MD 6-Wzt-198064:46 DESIRAE DIR SEMI-QL Comments: ORDERED CBC LUZ MARINA FEDRCOREY ORDERED CMP CBCD CRP ESR VITD HEPB SURF AB CCPHEPB IRINA AG HEPC DESIRAE RA HEPB CORE IGM UAC SCL70 ANTOINE ANTI JOANTICENT AB SSA SSB DNA UAPROTEIN C3 C4 TSH DESIRAE DIRECT 56 AU/mL (Normal) 7-Jqx-458094:46 ANEX PANEL Comments: ORDERED CBC LUZ MARINA FEDRCOREY ORDERED CMP CBCD CRP ESR VITD HEPB SURF AB CCPHEPB IRINA AG HEPC DESIRAE RA HEPB CORE IGM UAC SCL70 ANTOINE ANTI JOANTICENT AB SSA SSB DNA UAPROTEIN C3 C4 TSH; appt 11/02/10 ENVIRONMENTAL SOLUTIONS ENGINEER AB 14 AU/mL (Normal) ANTI-TORRES AB 7 AU/mL (Normal) 2-Xld-916118:46 ANTI JO1 Comments: ORDERED CBC LUZ MARINA FEDRCOREY ORDERED CMP CBCD CRP ESR VITD HEPB SURF AB CCPHEPB IRINA AG HEPC DESIRAE RA HEPB CORE IGM UAC SCL70 ANTOINE ANTI JOANTICENT AB SSA SSB DNA UAPROTEIN C3 C4 TSH ANTI LAMAR 7 AU/mL (Normal) 7-Sfw-970437:46 ANTI SCL 70 Comments: ORDERED CBC LUZ MARINA FEDRCOREY ORDERED CMP CBCD CRP ESR VITD HEPB SURF AB CCPHEPB IRINA AG HEPC DESIRAE RA HEPB CORE IGM UAC SCL70 ANTOINE ANTI JOANTICENT AB SSA SSB DNA UAPROTEIN C3 C4 TSH ANTI-SCL 70 14 AU/mL (Normal) :46 ANTI-CCP 157680 < 1 {units} (Normal) Comments: ORDERED CBC [...] 0.6-1.0 GLU 91 mg/dL (Normal) Range: 70-110 8-Bbh-508721:46 ESR Comments: ORDERED CBC LUZ MARINA RODRIGUEZ ORDERED CMP CBCD CRP ESR VITD HEPB SURF AB CCPHEPB IRINA AG HEPC DESIRAE RA HEPB CORE IGM UAC SCL70 ANTOINE ANTI JOANTICENT AB SSA SSB DNA UAPROTEIN C3 C4 TSH SED RATE 5 mm/h (Normal) Range: 0-30 0-Eod-347469:46 FERRITIN 9 ng/mL (Normal) Comments: ORDERED CBC LUZ MARINA RODRIGUEZ ORDERED CMP CBCD CRP ESR VITD HEPB SURF AB CCPHEPB IRINA AG HEPC DESIRAE RA HEPB CORE IGM UAC SCL70 ANTOINE ANTI JOANTICENT AB SSA SSB DNA UAPROTEIN C3 C4 TSH Range: 8-252 :46 HB CORE [id number] SeeNote (Normal) Comments: ORDERED CBC LUZ MARINA FEDRCOREY ORDERED CMP CBCD CRP ESR VITD HEPB SURF AB CCPHEPB IRINA AG HEPC DESIRAE RA HEPB CORE IGM UAC SCL70 ANTOINE ANTI JOANTICENT AB SSA SSB DNA UAPROTEIN C3 C4 TSH Comments: Result: Negative Performed at: - [facility] [address] [id number] Director: Era Tinoco MD, Phone: [phone] at: - [facility] [address] [id number] Director: Yony San MD, Phone: [phone] :[phone] HBsAg 6510 Comments: ORDERED CBC LUZ [...] of antibody present. :46 HEP C AB 883719 <0.1 (Normal) Comments: ORDERED CBC LUZ MARINA [...] DNA UAPROTEIN C3 C4 TSH Range: 0.358-3.74 8-Xcw-476701:46 VIT D,25 50717 9.3 ng/mL (Abnormal) Comments: ORDERED CBC LUZ MARINA MICHAEL ORDERED CMP CBCD CRP ESR VITD HEPB SURF AB CCPHEPB IRINA AG HEPC DESIRAE RA HEPB CORE IGM UAC SCL70 ANTOINE ANTI JOANTICENT AB SSA SSB DNA UAPROTEIN C3 C4 TSH Range: 32.0-100.0 Comments: Recent studies consider the lower limit of 32.0 ng/mL to jayleen threshold for optimal health.Ortiz SANCHEZ. J Nutr. 2004;135(2):317-22. [id number] CBC Comments: COMMENTS: FAX RESULTS TO DR. [...] DRAWRESULTS FAXED 07/17/10 VLADIMIR SALAMANCA. Range: 8-252 [id number]-Tle-[id number]:10 IRON 125 ug/dL (Normal) Comments: COMMENTS: FAX RESULTS TO DR. CECI FARIAS DRAWRESULTS FAXED 07/17/10 VLADIMIR SALAMANCA. Range: 50-170 75-Cyx-759411:20 CBC With Differential/Platelet Comments: PERFORMED BY: [id number] [id number] Baso (Absolute) 0.0 {x10E3/uL} (Normal) Range: 0.0-0.2 [...] 11.7-15.0 WBC 5.3 {x10E3/uL} (Normal) Range: 4.0-10.5 89-Pmz-773727:20 Comp. Metabolic Panel (14) Comments: PERFORMED BY: [facility] [facility] [id number] ALT (SGPT) 18 [iU]/L (Normal) Range: 0-40 [...] Serum 14 ng/mL (Normal) Comments: PERFORMED BY: [id number] [id number] 14:20 Range: 13-150 [id number]-Gii-[id number]:20 Iron and TIBC Comments: PERFORMED BY: [employer] [place] [facility] [id number] Iron Saturation 23 % (Normal) Range: 15-55 Iron, Serum 106 ug/dL (Normal) Range: 35-155 UIBC 361 ug/dL (Normal) Range: 150-375 Iron Bind.Cap.(TIBC) 467 ug/dL Range: 250-450 (Abnormal) 10-Pil-170916 TSH 1.760 {uIU/mL} Comments: [facility]: [facility] [id number] [place] [id number] :20 (Normal) Range: 0.450-4.500 C DIF TOXIN/AG See Note (Normal) Comments: PT COLLECTED SPECIMEN 12/30 @2300 :45 Comments: C. DIFF ANTIGENS NEGATIVE :45 CUL STOOL/SHIG Comments: PT COLLECTED SPECIMEN 12/30 @2300 CULTURE, STOOL See Note (Normal) Comments: COPY OF REPORT SENT TO [facility]FECTION [facility]OL 01/03/10 [facility]. No Salmonella, Shigella or Yersinia isolated.No [...] Crytosporidium parvum,Cyclospora, or Microsporidia.__ TESTING PERFORMED AT [facility]. ORIGINAL REPORT ONFILE IN LAB [...] Comments: COMMENTS: IV THERAPY DRAWING Range: 25-115 44-Fbs-464408:10 LIPASE 199 U/L (Normal) Comments: COMMENTS: IV THERAPY DRAWING Range: 70-290 Comments: Please note:LIPASE revised reference range effective 09. 51-Uwd-584371:10 RENAL Comments: COMMENTS: IV THERAPY DRAWING CO2 [...] (Normal) GLU 102 mg/dL (Normal) Range: 70-110 27-Wzz-578618:37 OCCULT BLOOD FECES SCREEN (76938) OCCULT BLOOD FECES SCREEN negative (Normal) 06-Mmm-712198:03 CBCD,SMEAR DIFF PLT EST SeeNote (Normal) Comments: [...] 6.4-8.2 GLU 94 mg/dL (Normal) Range: 70-110 51-Yxz-794018:03 FERRITIN 12 ng/mL (Normal) Range: 8-252 :03 IRON 128 ug/dL (Normal) Range: 50-170 60-Dul-755247:03 LIPID LDL 86 mg/dL (Normal) Range: 0-130 VLDL 18 mg/dL (Normal) Range: 5-40 HDL 79 mg/dL (Normal) Comments: Reference RangeHDL <40 mg/dL Low HDL CholesterolHDL >or= 60 mg/dL High HDL Cholesterol CHOL 183 mg/dL (Normal) Comments: <200 mg/dL Dnvduswnd628-334 mg/dL Borderline>240 mg/dL High Risk TRIG 88 mg/dL (Normal) Comments: Serum Triglycerides Reference IntervalNormal <150 mg/dLBorderline high 150 - 199 mg/dLHigh 200 - 499 mg/ dLVery High > or = 500 mg/dL 70-Chv-778416:03 VITAMIN B12 342 pg/mL (Normal) Range: 254-1320 10-Apr-20090:00 FLU A+B DIRECT See Note (Normal) Comments: Negative test results should be confirmed by culture. Order Rapid Viral Culture for Influenzae A+B ([id number]) if clinically indicated. INFLUENZA ANTIGEN,DIRECT Presumptive NEGATIVE for Influenza A/B Antigen (See Note) 80-Lel-150764:43 CHEST, PA AND LATERAL Radiology Report See Note (Normal) Comments: Exam Number: [id number] CLINICAL DATAInterstitial lung disease, cough. CHEST PA [...] pneumonia. Possible bronchitis. Reported By: FLORINDA CAMPOS 63-Fwk-024914:45 L/S SPINE,MIN 4 VIEWS Radiology Report See Note (Normal) Comments: Exam Number: [id number] CLINICAL PROBLEMLow back pain post fall. LUMBAR [...] and spondylosis. Reported By: AROLDO TILLMAN M.D. 59-Ufd-099555:44 KNEE,4 OR MORE VIEWS Radiology Report See Note (Normal) Comments: Exam Number: [id number] CLINICAL PROBLEMPain both knees post fall. FOUR [...] patellofemoral compartments. Reported By: AROLDO TILLMAN M.D. 53-Neq-266433:44 KNEE,4 OR MORE VIEWS Radiology Report See Note (Normal) Comments: Exam Number: [id number] CLINICAL PROBLEMLeft knee pain status post fall. [...] Order Rapid Viral Culture for Influenzae A+B ([id number]) if clinically indicated. INFLUENZA ANTIGEN,DIRECT Presumptive NEGATIVE for Influenza A/B Antigen (See Note) 12-Sep-2008 PREMA 66 U/L (Normal) Range: 25-115 12:11 51-Vsj-775215:11 CBCD BASO% 0.2 % (Normal) Range: 0-1 [...] 4.2-5.4 WBC 4.2 K/mm3 (Abnormal) Range: 4.4-11.0 02-Pml-720675:11 COMP METABOLIC A/G 1.2 {RATIO} (Normal) Range: [...] :11 MG 1.9 mg/dL (Normal) Range: 1.5-2.2 03-Nsm-499451:00 CBCD BASO% 0.3 % (Normal) Range: 0-1 [...] T PROT 6.7 g/dL (Normal) Range: 6.4-8.2 46-Pjd-714679:00 METHYLM 918680 330 nmol/L (Normal) Range: 73-376 Comments: The reference range for methylmalonic acid has been set at+3sd above the mean for healthy blood bank donors. In theclinical assessment of patients with megaloblastic anemiasa cutoff of +3sd provides gre ater specificity in thediagnosis of the vitamin deficiency states, despite thesacrifice of some sensitivity.Performed At: [address] [id number] 3-Tuy-842818:55 Lower Respiratory Culture Comments: Clinical Information: SRC:SP PERFORMED BY: [facility] [facility] [id number] Lower Respiratory Culture Final report (Normal) Result 1 RRF (Normal) Comments: Routine respiratory rajwinder 75-Cxb-70235:3 PREMA 62 U/L (Normal) Range: 25-115 6 :36 DESIRAE-D 891162 DESIRAE-DIRECT 23 AU/mL (Normal) Range: 0-99 Comments: [...] {IU/mL} (Normal) Range: 0.0-13.9 Comments: Performed At: [address] [id number] :36 TSH 1.76 {uIU/mL} (Normal) Range: 0.34-4.82 :29 HgA1C , Office (18811) HgA1C , Office 5.5 % (Normal) Range: 4.6 - 7.1 1-Uom-486908:29 Blood Glucose , Office (14747) Blood Glucose , Office 108 (Normal) :51 CHEST, PA AND LATERAL Radiology Report See Note (Normal) Comments: Exam Number: [id number] PA AND LATERAL CHEST HISTORY Being done [...] acute infiltrate. Reported By: JERARDO BEAULIEU M.D. 6-Lrq-178809:57 Rapid Flu (97760 x 2) INFLUENZA IMMUNOASSY DIRECT OPTICAL OBSERV negative (Normal) Comments: aw 39-Ijl-419647:57 LIPID CHOL 186 mg/dL (Normal) Comments: <200 [...] mg/dL VLDL 43 mg/dL (Abnormal) Range: 5-40 87-Nct-426564:57 VITAMIN B12 370 pg/mL (Normal) Range: 211-911 :57 VITD 1,25 74910 69.6 (Normal) Comments: Performed At: [address] [id number] 75-Rhz-198752:47 CHEST, PA AND LATERAL Radiology Report See Note (Normal) Comments: Exam Number: [id number] PA AND LATERAL CHEST HISTORY Being done [...] Culture Comments: Clinical Information: SRC:TH PERFORMED BY: [facility] [facility] [id number] Result 1 RRF (Normal) Comments: Routine respiratory rajwinder Upper Respiratory Culture Final report (Normal) 8-Odh-605786:39 CHEST WITHOUT CONTRAST Radiology Report See Note (Normal) Comments: Exam Number: [id number] CT SCAN OF CHEST HISTORYNeoplasm of uncertain [...] PREMA 73 U/L (Normal) Range: 25-115 :01 91-Hum-482121:01 CBCD BASO% 0.3 % (Normal) Range: 0-1 [...] 11.6-14.6 WBC 4.7 K/mm3 (Normal) Range: 4.4-11.0 24-Ldt-059328:01 COMP METABOLIC A/G 1.1 {RATIO} (Normal) Range: [...] mg/dL VLDL 15 mg/dL (Normal) Range: 5-40 14-Dbk-847533:40 BC No growth in 5 days. Comments: COMMENTS: ROOM 12 (Normal) 04-Toj-789297:20 COMPLETE UA Comments: COMMENTS: ROOM 12HOLD IN [...] WBC 0 SEEN {/hpf} (Normal) Range: 0-5 99-Kcz-191240:10 BMP Comments: COMMENTS: ROOM 12 BUN 8 [...] 3.5-5.1 NA 132 mmol/L (Abnormal) Range: 136-145 72-Ycu-581469:10 CBCD Comments: COMMENTS: ROOM 12 BASO% 0.2 [...] (Normal) WBC 10.6 K/mm3 (Normal) Range: 4.4-11.0 59-Qrm-635218:10 LIPASE 212 U/L (Normal) Comments: COMMENTS: ROOM 12 Range: 114-286 68-Kks-947716:10 LIVER Comments: COMMENTS: ROOM 12 ALB 3.4 [...] 29 [iU]/L (Abnormal) Range: 30-65 :07 DESIRAE-D 070121 DESIRAE-DIRECT 24 U/mL (Normal) Range: 0-99 Comments: Negative <100 Equivocal 100 - 120 Positive >120Performed At: [facility] [place], [place] [id number] At: [address] [id number] :07 See Note (Normal) Comments: CHECK BLOOD [...] 5.8 K/mm3 (Normal) Range: 4.4-11.0 :07 HISTOPL 827751 SeeNote (Normal) Comments: Result: Negative : RA LATEX 6502 8.6 {IU/mL} (Normal) Range: 0.0-13.9 31-Yqn-402717:24 CHEST, PA AND LATERAL Radiology Report See Note (Normal) Comments: Exam Number: [id number] CHEST, PA AND LATERAL HISTORYFever and cough. COMPARISONNone. FINDINGSThere is an indwelling Tgvu-X-Nexjfzow on the right side particularlyin the SVC. The heart, aorta, and media stinum are normal. Lungs areclear. There is no evidence of consolidation, effusion, congestion,or nodules. There are clips in the region of the esophageal hiatus. IMPRESSIONClear lungs. Reported By: AN YOUNG M.D. 56-Inj-221013:0 BC No growth in 5 days. 0 (Normal) :5 PREMA 71 U/L (Normal) Range: 25-115 0 19-Scg-930773:5 BC No growth in 5 days. 0 [...] mm/h (Normal) Range: 0-30 :02 Urinalysis, Office (09524) Comments: ABn signed CH UA - BILIRUBIN [...] pg/mL (Abnormal) Range: 211-911 Comments: Performed At: [address] [id number] 7-Rpi-568528:00 CULTURE, THROAT See Note (Normal) Comments: Normal throat rajwinder isolated. No beta-hemolyticstreptococcus isolated. 4-Enf-154390:52 Urinalysis, Office (53075) UA - BILIRUBIN Negative (Normal) UA - [...] and of unspecified site Planned Observations AMYLASE (61465)Indication: Chronic pancreatitis On: 50-Ahm-692005:48 Request LIPASE (65077)Indication: Chronic pancreatitis On: 17-Hfj-745762:48 Request METABOLIC PANEL, COMPREHENSIVE (46062)Indication: Chronic pancreatitis On: 18-Upw-455725:47 Request LIPOPROTEIN, BLD, BY NMR (45462)Indication: Hyperlipidemia On: 58-Kix-660334:47 Request Ferritin (88932)Indication: Iron deficiency anemia due to dietary causes On: 54-Yik-182486:51 Request URINE GRETTA CULTURE-IDENTIFICATN (25756)Indication: Urgency incontinence On: 19-Vds-036634:58 Request LIPASE (73801)Indication: Chronic pancreatitis On: :51 Request AMYLASE (53309)Indication: Chronic pancreatitis On: :50 Request URINALYSIS (65710)Indication: Chronic pancreatitis On: :50 Request CBC WITH MANUAL DIFF (96683)Indication: Chronic pancreatitis On: :50 Request Metabolic Panel, Comprehensive (88067)Indication: Chronic pancreatitis On: :50 Request PT (PROTHROMBIN TIME) (07987)Indication: PFO (patent foramen ovale) On: 61-Qzd-613621:36 Request Vitamin B-12 (cyanocobalamin) (25592)Indication: S/P gastric bypass On: :21 Request Ferritin (33377)Indication: Iron deficiency anemia due to dietary causes On: : Request CBC, Platelets & Auto Diff (18101)Indication: Chronic pancreatitis On: :21 Request Metabolic Panel, Comprehensive (58649)Indication: Chronic pancreatitis On: 2-Pib-171509:21 Request CALCIFIDIOL (81007) VIT D 25Indication: Vitamin D deficiency, unspecified On: 96-Pwe-68286:55 Request Comments: re check in 8 weeks Sed Rate Erythrocyte (11240)Indication: Fever On: 25-Ddz-372348:39 Request URINALYSIS (84087)Indication: Fever On: :33 Request URINE GRETTA CULTURE-IDENTIFICATN (47649)Indication: Fever On: 04-Mwu-494048:33 Request CALCIFIDIOL (46506) VIT D 25Indication: Vitamin D deficiency, unspecified On: :32 Request CBC, Platelets & Auto Diff (20215)Indication: Iron deficiency anemia due to dietary causes On: :32 Request Ferritin (36022)Indication: Iron deficiency anemia due to dietary causes On: 25-Xtn-723495:32 Request GRETTA CULTURE-BLOOD (23495)Indication: Fever On: 48-Kly-456005:30 Request Comments: ONE FROM PORT AND ONE PERIPHERAL CALCIFIDIOL (19205) VIT D 25Indication: Vitamin D deficiency, unspecified On: 35-Hok-967072:24 Request FERRITIN (52672)Indication: Iron deficiency anemia due to dietary causes On: 66-Idw-560523:22 Request EBV ANTIBODY VCA/EA 01553 (80735)Indication: Fatigue On: 22-Cjv-614528:31 Request Comments: please do VCA IGM Ferritin (98711)Indication: Iron deficiency anemia due to dietary causes On: 30-Gze-906496:00 Request CALCIFIDIOL (61270) VIT D 25Indication: Vitamin D deficiency, unspecified On: 73-Oss-637250:00 Request EBV Panel (95876)Indication: Pharyngitis, acute On: 78-Qle-095822:58 Request Influenza A&B Viral Culture (24946)Indication: Fever On: 7-Wml-262688:34 Request GRETTA CULTURE-OTHER (46673)Indication: Fever On: 0-Mvn-513534:33 Request Rapid Strep Test, Office (19623)Indication: Fever On: 1-Fdt-093419:18 Request Troponin I (21376)Indication: Chest pain at rest On: 16-Thz-710362:43 Request Comments: pls add to labs already done MYOGLOBIN (54571)Indication: Chest pain at rest On: 58-Xug-405609:25 Request CPK MB FRACTION (21609)Indication: Chest pain at rest On: 93-Krg-482382:25 Request Sed Rate Erythrocyte (02013)Indication: Chest pain at rest On: :25 Request CBC WITH MANUAL DIFF (48372)Indication: Chest pain at rest On: 04-Qfs-833569:25 Request CALCIFEDIOL (20707)Indication: OTHER AND UNSPECIFIED POSTSURGICAL NONABSORPTION On: 8-Xnt-513675:12 Request PARATHORMONE (28300)Indication: OTHER AND UNSPECIFIED POSTSURGICAL NONABSORPTION On: 5-Vjv-622915:12 Request Magnesium (97963)Indication: OTHER AND UNSPECIFIED POSTSURGICAL NONABSORPTION On: 9-Has-939581:12 Request Phosphorus (24273)Indication: OTHER AND UNSPECIFIED POSTSURGICAL NONABSORPTION On: 1-Qnz-443439:12 Request IRON (37556)Indication: OTHER AND UNSPECIFIED POSTSURGICAL NONABSORPTION On: :12 Request FERRITIN (29249)Indication: OTHER AND UNSPECIFIED POSTSURGICAL NONABSORPTION On: :12 Request ZINC, BLOOD (72733)Indication: OTHER AND UNSPECIFIED POSTSURGICAL NONABSORPTION On: :12 Request VITAMIN A (12345)Indication: OTHER AND UNSPECIFIED POSTSURGICAL NONABSORPTION On: :12 Request TSH (47077)Indication: OTHER AND UNSPECIFIED POSTSURGICAL NONABSORPTION On: : Request MAGNESIUM (98377)Indication: OTHER AND UNSPECIFIED POSTSURGICAL NONABSORPTION On: : Request Folic Acid Serum (51908)Indication: OTHER AND UNSPECIFIED POSTSURGICAL NONABSORPTION On: : Request CHROMIUM (69033)Indication: OTHER AND UNSPECIFIED POSTSURGICAL NONABSORPTION On: : Request ASSAY, HOMOCYSTINE (93951)Indication: OTHER AND UNSPECIFIED POSTSURGICAL NONABSORPTION On: :12 Request Metabolic Panel, Basic (32709)Indication: Abdominal pain On: 88-Mak-076210:11 Request Comments: do on this tuesday OSMOLALITY URINE (14823)Indication: Abdominal pain On: :11 Request Comments: today in ambulatory OSMOLALITY BLOOD (72875)Indication: Abdominal pain On: 12-Sru-288915:11 Request Comments: today in ambulatory Lipase (32111)Indication: Abdominal pain On: 37-Olj-593934:11 Request Comments: today in ambulatory Amylase (44467)Indication: Abdominal pain On: 78-Ttg-969588:11 Request Comments: today in ambulatory CBC, Platelets & Auto Diff (53742)Indication: Abdominal pain On: 30-Hqs-165846:11 Request Comments: today in ambulatory Metabolic Panel, Comprehensive (57393)Indication: Abdominal pain On: 96-Dbf-325898:10 Request Comments: today in ambulatory AMYLASE (77530)Indication: Abdominal pain On: 4-Xgx-080106:12 Request LIPASE (18554)Indication: Abdominal pain On: 6-Jbq-051334:12 Request Ferritin (41386)Indication: Iron deficiency anemia due to dietary causes On: 27-Aez-469578:20 Request Comments: in six months (approximately) Vitamin B-12 (cyanocobalamin) (93743)Indication: Other vitamin B12 deficiency anemia On: :19 Request Comments: in six months (approximately) Lipid Panel (22486)Indication: High blood triglycerides On: :19 Request Comments: in six months (approximately) Metabolic Panel, Comprehensive (25267)Indication: Chronic pancreatitis On: :19 Request Comments: in six months (approximately) Vitamin B-12 (cyanocobalamin) (75820)Indication: Other vitamin B12 deficiency anemia On: 45-Big-708131:27 Request METABOLIC PANEL, COMPREHENSIVE (40007)Indication: High blood triglycerides On: :19 Request LIPID PANEL (83203)Indication: High blood triglycerides On: :19 Request CBC, Platelets & Auto Diff (85741)Indication: Iron deficiency anemia due to dietary causes On: 43-Arh-553524:15 Request Ferritin (77423)Indication: Iron deficiency anemia due to dietary causes On: 99-Gmi-060841:15 Request Iron (73922)Indication: Iron deficiency anemia due to dietary causes On: 86-Frl-462041:29 Request Comments: recheck in 4 weeks pt needs to be fasting Iron Binding Capacity (TIBC) (22273)Indication: Iron deficiency anemia due to dietary causes On: 26-Lrn-503793:29 Request Comments: recheck in 4 weeks pt needs to be fasting Ferritin (32774)Indication: Iron deficiency anemia due to dietary causes On: 82-Ank-803643:28 Request Comments: recheck in 4 weeks pt needs to be fasting METABOLIC PANEL, COMPREHENSIVE (17310)Indication: High blood triglycerides On: :33 Request LIPID PANEL (90121)Indication: High blood triglycerides On: :33 Request CBC (Auto) (80452)Indication: Iron deficiency anemia due to dietary causes On: :33 Request Ferritin (79055)Indication: Iron deficiency anemia due to dietary causes On: 37-Mvz-713843:33 Request Vitamin B-12 (cyanocobalamin) (79551)Indication: Other vitamin B12 deficiency anemia On: 33-Rny-050644:32 Request CALCIFIDIOL (05686) VIT D 25Indication: Vitamin D deficiency, unspecified On: 03-Yot-314392:32 Request CULTURE, SPUTUM (63897)Indication: Cough On: 4-Mff-840504:36 Request Iron (10487)Indication: Iron deficiency anemia due to dietary causes On: 81-Zfo-234702:53 Request CALCIFIDIOL (40203) VIT D 25Indication: Vitamin D deficiency, unspecified On: 95-Tnu-166910:02 Request CBC (Auto) (30805)Indication: Iron deficiency anemia due to dietary causes On: 5-Yet-914457:49 Request Metabolic Panel, Comprehensive (56379)Indication: Chronic pancreatitis On: :49 Request Lipid Panel (31820)Indication: High blood triglycerides On: :49 Request Ferritin (48844)Indication: Iron deficiency anemia due to dietary causes On: 2-Mok-739301:48 Request CALCIFEDIOL (17981)Indication: Vitamin D deficiency, unspecified On: :48 Request Vitamin B-12 (cyanocobalamin) (94897)Indication: Other vitamin B12 deficiency anemia On: 2-Tjl-986996:47 Request Lipase (63361)Indication: Chronic pancreatitis On: :47 Request Amylase (94438)Indication: Chronic pancreatitis On: :47 Request D-Dimer (79486)Indication: Anemia On: 00-Hvu-679792:28 Request Comments: stat Metabolic Panel, Comprehensive (95342)Indication: Anemia On: :16 Request TYPE & SCREEN GEL (92462)Indication: Anemia On: :16 Request CBC with manual diff (32861)Indication: Anemia On: :15 Request Lipase (98840)Indication: Chronic pancreatitis On: :30 Request Amylase (67320)Indication: Chronic pancreatitis On: 67-Gxu-489992:30 Request Ferritin (41849)Indication: Iron deficiency anemia due to dietary causes On: 10-Foi-090251:28 Request LIPASE (55004)Indication: Chronic pancreatitis On: :21 Request AMYLASE (46709)Indication: Chronic pancreatitis On: 5-Vdj-386724:21 Request Lipase (86620)Indication: Chronic pancreatitis On: : Request Amylase (00099)Indication: Chronic pancreatitis On: :12 Request MICROALBUMIN: CREATININE RATIO (00527) AND (85115)Indication: Chronic pancreatitis On: : Request METABOLIC PANEL, COMPREHENSIVE (33848)Indication: Chronic pancreatitis On: : Request LIPID PANEL (54580)Indication: High blood triglycerides On: : Request CBC WITH MANUAL DIFF (73960)Indication: Chronic pancreatitis On: : Request Metabolic Panel, Comprehensive (32031)Indication: Chronic pancreatitis On: :46 Request Lipase (15710)Indication: Chronic pancreatitis On: :46 Request Amylase (38671)Indication: Chronic pancreatitis On: :46 Request CALCIFIDIOL (67891) VIT D 25Indication: Vitamin D deficiency, unspecified On: 4-Jed-624085:43 Request Ferritin (41748)Indication: Iron deficiency anemia due to dietary causes On: :43 Request CBC (Auto) (48477)Indication: Iron deficiency anemia due to dietary causes On: :43 Request PT (Prothrobim Time) (61034)Indication: AFTERCARE, LONG-TERM USE, ANTICOAGULANTS On: :28 Request Lipase (58256)Indication: Chronic pancreatitis On: : Request Amylase (05605)Indication: Chronic pancreatitis On: : Request Metabolic Panel, Comprehensive (51162)Indication: Chronic pancreatitis On: : Request CBC (Auto) (17683)Indication: Leukopenia On: : Request Lipid Panel (89947)Indication: High blood triglycerides On: :25 Request Iron (51577)Indication: Iron deficiency anemia due to dietary causes On: :23 Request Ferritin (26280)Indication: Iron deficiency anemia due to dietary causes On: :23 Request Vitamin B-12 (cyanocobalamin) (37897)Indication: Other vitamin B12 deficiency anemia On: :23 Request CALCIFIDIOL (29066) VIT D 25Indication: Vitamin D deficiency, unspecified On: :23 Request Lipase (65914)Indication: Chronic pancreatitis On: : Request Amylase (45360)Indication: Chronic pancreatitis On: :21 Request Comments: pls add to labs already drawn Metabolic Panel, Comprehensive (54631)Indication: Chronic pancreatitis On: : Request Ferritin (90621)Indication: Iron deficiency anemia due to dietary causes On: : Request CBC (Auto) (06276)Indication: Chronic pancreatitis On: : Request LIPID PANEL (35593)Indication: High blood triglycerides On: 0-Eea-073873:15 Request Iron Binding Capacity (TIBC) (33055)Indication: Anemia On: :53 Request Iron (30727)Indication: Anemia On: :53 Request Ferritin (83059)Indication: Anemia On: :53 Request CBC (Auto) (56342)Indication: Anemia On: :53 Request Metabolic Panel, Comprehensive (77928)Indication: Chronic pancreatitis On: :53 Request OVA & PARASITE DIR SMEAR (56926)Indication: Diarrhea On: :37 Request LEUKOCYTE COUNT, FECAL (11027)Indication: Diarrhea On: :37 Request C.Difficile, Stool (48926)Indication: Diarrhea On: :37 Request GRETTA CULTURE-STOOL (88245)Indication: Diarrhea On: :37 Request Vitamin B-12 (cyanocobalamin) (06043)Indication: Other vitamin B12 deficiency anemia On: :05 Request Iron (04474)Indication: Anemia On: 23-Rgr-077029:05 Request Ferritin (42627)Indication: Anemia On: :05 Request METABOLIC PANEL, COMPREHENSIVE (22334)Indication: High blood triglycerides On: :05 Request CBC WITH MANUAL DIFF (90246)Indication: Anemia On: :05 Request LIPID PANEL (50156)Indication: High blood triglycerides On: 83-Dbb-993162:04 Request nasal influenza swab (67263) A6Qvimjrbqbd: Unspecified Diagnosis On: 6-Vrc-037374:29 Request Rapid Flu (45388 x 2)Indication: Fever On: 3-Jww-096115:44 Request Lipid Panel (26195)Indication: High blood triglycerides On: 41-Ovr-106513:53 Request CBC (Auto) (26272)Indication: Chronic pancreatitis On: :51 Request Metabolic Panel, Comprehensive (13955)Indication: Chronic pancreatitis On: :51 Request Ferritin (22017)Indication: Anemia On: :51 Request Iron (30896)Indication: Anemia On: :51 Request Vitamin B-12 (cyanocobalamin) (31534)Indication: Other vitamin B12 deficiency anemia On: 00-Bcg-183133:51 Request Lipid Panel (67410)Indication: Malabsorption syndrome On: :39 Request Sed Rate Erythrocyte (39010)Indication: Chronic pancreatitis On: :35 Request CBC, Platelets & Auto Diff (03779)Indication: Chronic pancreatitis On: :35 Request Magnesium (92903)Indication: Chronic pancreatitis On: :35 Request Lipase (25208)Indication: Chronic pancreatitis On: :35 Request Amylase (77808)Indication: Chronic pancreatitis On: :35 Request Metabolic Panel, Comprehensive (63263)Indication: Chronic pancreatitis On: :35 Request CBC (Auto) (43742)Indication: Abdominal pain, acute, generalized On: :29 Request Metabolic Panel, Comprehensive (36310)Indication: Abdominal pain, acute, generalized On: 58-Hyx-482070:29 Request Methylmalonic acid, serum 68029Tbnkwjnjes: Other vitamin B12 deficiency anemia On: 25-Glu-503656:29 Request CULTURE, SPUTUM (69023)Indication: Cough On: 2-Pkb-271500:42 Request Lipase (51636)Indication: Acute pancreatitis On: 7-Xvo-184533:59 Request Amylase (62157)Indication: Acute pancreatitis On: 1-Zob-012501:59 Request DESIRAE (ANTINUCLEAR ANTIBODY) (80936)Indication: Pain in unspecified joint On: 0-Uul-522453:48 Request C-REACTIVE PROTEIN (86930)Indication: Pain in unspecified joint On: 7-Dft-420890:48 Request CBC WITH MANUAL DIFF (99853)Indication: Pain in unspecified joint On: 1-Awi-349174:48 Request METABOLIC PANEL, COMPREHENSIVE (94921)Indication: Pain in unspecified joint On: 5-Brc-283457:48 Request RHEUMATOID FACTOR-QUANT (88859)Indication: Pain in unspecified joint On: 1-Qep-508543:48 Request SED RATE ERYTHROCYTE (58260)Indication: Pain in unspecified joint On: 5-Tdr-807640:48 Request TSH (97884)Indication: Pain in unspecified joint On: 8-Orm-115415:48 Request GRETTA CULTURE-OTHER (10639)Indication: Pharyngitis, acute On: 54-Djt-841633:12 Request Rapid Strep Test, Office (92715)Indication: Pharyngitis, acute On: 14-Aca-462429:12 Request Comments: negative VITAMIN D, 1, 25-DIHYDROXY (53518)Indication: Chronic pancreatitis On: 69-Iti-166829:46 Request Vitamin B-12 (cyanocobalamin) (38021)Indication: Other vitamin B12 deficiency anemia On: 04-Rys-904040:43 Request Lipase (73413)Indication: Chronic pancreatitis On: 28-Epr-140651:35 Request Amylase (01070)Indication: Chronic pancreatitis On: 72-Kdu-728437:34 Request CBC (Auto) (62203)Indication: Chronic pancreatitis On: 81-Rni-959504:34 Request Metabolic Panel, Comprehensive (27303)Indication: Chronic pancreatitis On: 70-Yhf-849651:34 Request Lipid Panel (61871)Indication: Chronic pancreatitis On: 91-Zyq-286528:34 Request Comments: standing order every 3 months Metabolic Panel, Comprehensive ([id number])Indication: Edema On: :13 Request CBC, Platelets & Auto Diff ([id number])Indication: Edema On: :13 Request PTT (Activated Partial Thromboplastin Time) ([id number])Indication: Edema On: :12 Request PT (Prothrobim Time) ([id number])Indication: Edema On: 77-Qmw-387526:12 Request Lipase ([id number])Indication: pancreatitis On: :32 Request Amylase ([id number])Indication: pancreatitis On: :32 Request CBC (Auto) ([id number])Indication: pancreatitis On: :32 Request Metabolic Panel, Comprehensive ([id number])Indication: pancreatitis On: :32 Request Metabolic Panel, Comprehensive ([id number])Indication: Fever On: 07-Ujn-720813:57 Request GRETTA CULTURE-BLOOD ([id number])Indication: Fever On: :56 Request Comments: one from peripheral GRETTA CULTURE-BLOOD ([id number])Indication: Fever On: 48-Zkd-938819:56 Request Comments: one from port Sed Rate Erythrocyte ([id number])Indication: Fever On: 72-Bpq-259493:56 Request CBC, Platelets & Auto Diff ([id number])Indication: Fever On: :56 Request Urinalysis, Office ([id number])Indication: Fever On: 61-Vos-910363:56 Request GRETTA CULTURE-OTHER ([id number])Indication: Fever On: :53 Request Rapid Strep Test, Office ([id number])Indication: Fever On: 1-Nqq-427361:52 Request CBC, Platelets & Auto Diff ([id number])Indication: Chronic pancreatitis On: 7-Wol-707333:46 Request Lipase ([id number])Indication: Chronic pancreatitis On: :46 Request Amylase ([id number])Indication: Chronic pancreatitis On: 6-Zhw-071178:46 Request Metabolic Panel, Comprehensive ([id number])Indication: Chronic pancreatitis On: 1-Wys-446516:46 Request FERRITIN ([id number])Indication: Anemia On: 2-Mel-168351:22 Request VITAMIN B-12 (CYANOCOBALAMIN) ([id number])Indication: Other vitamin B12 deficiency anemia On: 8-Hpu-824474:22 Request LIPASE ([id number])Indication: Acute pancreatitis On: 98-Qgq-712538:22 Request ALBUMIN SERUM ([id number])Indication: Acute pancreatitis On: :22 Request CBC (AUTO) ([id number])Indication: Acute pancreatitis On: :21 Request METABOLIC PANEL, BASIC ([id number])Indication: Abnormal blood chemistry On: :21 Request Planned Encounters Medical; [facility] 4 Month Fu - On: 01-Sep-2018 13:30 [facility] Sarah Pizano MD, MD, Dana M Planned Procedures Flu Vaccine (Quadrivalent) On: 31-Mar-2018 Intent 69565Cc: COMFORT Gallegos Comments: Lot #:[id number] date: [birth year]-49Newpbe given:0.5mlRoute: IMSite given:L DltdGiven by: ElaineVIS and ABN signed [employer] SCREENING DIGITAL TOMOSYNTHESIS On: 20-Dec-2017 Intent OF BREAST (75923)By: Sarah Pizano MD, MD, Dana M DEXA SCAN AXIAL SKELETON On: 20-Dec-2017 Intent (76439)By: Sarah Pizano MD, MD, Dana M SCREENING DIGITAL TOMOSYNTHESIS On: 29-Apr-2017 Intent OF BREAST (78047)By: Sarah Pizano MD, MD, Dana M Flu Vaccine (Quadrivalent) On: 29-Apr-2017 Intent 09756Ue: Sarah Pizano MD Comments: lot: [id number]: 12/19/18site/route: L kelin, IMamt: 0.5mlVIS and ABN signed when applicableChelsea, INSURANCE PROCESSOR Sarah Pizano MD CT - Abdomen & Pelvis (IV On: 01-Oct-2016 Intent Contrast Needed)By: Dima DURAN, Comments: attentinon pancrease follow up on kidney cyst. 07-20 creat 0.76 Sarah Ghosh MD Flu Vaccine (Quadrivalent) On: 17-May-2016 Intent 11626Rs: Sarah Pizano MD Comments: FLUlot: [id number]:11/17site:Lt deltoidroute:IMdose:.5mlDEMICK, MA Sarah Pizano MD Aerosol Treatment (16414)By: On: 27-Apr-2016 Intent Slarb BODY PRESS OPERATOR, Kacey DEXA SCAN AXIAL SKELETON On: 09-Mar-2016 Intent (12151)By: Sarah Pizano MD, MD, Dana M MAMMOGRAM, SCREENING, BOTH On: 09-Mar-2016 Intent BREAST (64133)By: Sarah Pizano MD, MD, Dana M DEXA SCAN AXIAL SKELETON On: 15-Jul-2015 Intent ([id number])By: Sarah Pizano MD, MD, Dana M MAMMOGRAM, SCREENING, BOTH On: 15-Jul-2015 Intent BREAST (62302)By: Sarah Pizano MD, MD, Dana M Aerosol Treatment (58871)By: On: 08-Jul-2015 Intent Pamella Saavedra CNP Aerosol Treatment (27550)By: On: 08-Jul-2015 Intent Slarb BODY PRESS OPERATOR, Kacey XR HIP RIGHT COMPLETE (49765)By: On: 30-Jun-2015 Intent Sarah Pizano MD, MD, Comments: right hip Sarah Rebollar Radiology - PelvisBy: Dima On: 24-Jun-2015 Intent Sarah DURAN MD, Dana M Comments: and right hip xray Venous Doppler - RightBy: On: 24-Jun-2015 Intent Sarah Pizano MD, MD, Comments: leg Sarah Rebollar Flu Vaccine (Quadrivalent) On: 15-Apr-2015 Intent 89788Eq: Sarah Pizano MD Comments: lot [id number]: 01/01/2016site/route L kelin, IMamt 0.5mlVIS and ABN signed when applicableMelba, CMAFM4 Sarah Pizano MD Radiology - ChestBy: Quentin ARGUETA, On: 07-Feb-2015 Intent Adeola Aerosol Treatment ([id number])By: On: 07-Feb-2015 Intent Ailyn Aguilar Solu -Medrol Injection, 125 mg On: 05-Feb-2015 Intent (J2930)By: Pamella Saavedra CNP Comments: lot:[id number]:route:IMdose:125MGsite: R glutGiven by: FOX Angeles Solu -Medrol Injection, 125 mg On: 04-Feb-2015 Intent (J2930)By: Pamella Saavedra CNP Aerosol Treatment (82291)By: On: 04-Feb-2015 Intent Pamella Saavedra CNP MAMMOGRAM, SCREENING, BOTH On: 14-Jan-2015 Intent BREAST (64635)By: Sarah Pizano MD, MD, Dana M Prevnar 13 (64692)By: Dima On: 16-Jul-2014 Intent Sarah DURAN MD, Dana M ADMINISTRATION OF INFLUENZA On: 22-Apr-2014 Intent VIRUS VACCINE (G0008)By: Sarah Pizano MD, MD, Dana M FLU VAC, SPLIT, >3 YEARS, On: 22-Apr-2014 Intent INTRAMUSC (48373)By: Dima DURAN, Comments: Lot #:[id number] date:mount given:0.5mlRoute: IMSite given:left deltoid Given by: Sarah Mota MD Phenergan Injection, up to 50 mg On: 12-Dec-2013 Intent (J2550)By: Pamella Saavedra CNP MAMMOGRAM, SCREENING, BOTH On: 25-Sep-2013 Intent BREASTS ([id number])By: Sarah Pizano MD, MD, Dana M Eprescribed prescriptions On: 25-Sep-2013 Intent (G8553)By: Sarah Pizano MD, MD, Dana M Aerosol Treatment ([id number])By: On: 05-Sep-2013 Intent [address] Saavedra CNP CT - Abdomen & Pelvis (IV On: 04-Jun-2013 Intent Contrast Needed)By: Sarah Pizano MD, MD, Dana M DXA, BONE DENSITY, AXIAL On: 04-Jun-2013 Intent SKELETON (55710)By: Dima DURAN, Comments: postmenapausal Sarah Ghosh MD MAMMOGRAM, SCREENING, BOTH On: 04-Jun-2013 Intent BREASTS (30053)By: Dima DURAN, Sarah Ghosh MD Pulse Oximetry (20158)By: On: 04-Jun-2013 Intent COMFORT Gallegos Eprescribed prescriptions On: 14-May-2013 Intent (G8553)By: Melba Malloy ELECTROCARDIOGRAM, COMPLETE On: 26-Dec-2012 Intent (ECG) (14288)By: Sarah Pizano MD, MD, Dana M Eprescribed prescriptions On: 26-Dec-2012 Intent (G8553)By: Makenzie Allred LPN MAMMOGRAM, SCREENING, BOTH On: 24-Aug-2012 Intent BREASTS (64722)By: Sarah Pizano MD, MD, Dana M Pulse Oximetry (87835)By: On: 29-Jun-2012 Intent COMFORT Gallegos Radiology - Chest- PA and LatBy: On: 01-Jun-2012 Intent Sofia Younger DO Eprescribed prescriptions On: 01-Jun-2012 Intent (G8553)By: Kim Garces LPN FLU VAC, SPLIT, >3 YEARS, On: 28-Apr-2012 Intent INTRAMUSC (10413)By: Balaji, Comments: Lot:[id number]:6.30.13Dose:prefilledRoute:IMSite:L DltdGiven By:BARRY Garcia IMMUNIZ ADMNIN, 1 VAC, On: 28-Apr-2012 Intent SNGL/COMBO (47330)By: Radha Carpio TDAP VACCINE >7 IM (19188)By: On: 24-Nov-2011 Intent Makenzie Allred LPN Comments: Lot #[id number]- 11.13Site- L arm, ImDose prefilledgiven by: Makenzie MAMMOGRAM, SCREENING, BOTH On: 01-Nov-2011 Intent BREASTS (87307)By: Sarah Pizano MD, MD, Dana M Aerosol Treatment (27556)By: On: 14-Oct-2011 Intent Sofia Younger DO Comments: [...] SPLIT, >3 YEARS, On: 20-Apr-2011 Intent INTRAMUSC (50967)By: Cayden Comments: Lot #[id number]-4/30/12Site-left deltoidgiven by: Jared Rodarte, SCAR CASTILLON, Chery IMMUNIZ ADMNIN, 1 VAC, On: 20-Apr-2011 Intent SNGL/COMBO (89420)By: Chery Rodarte LPN B 12 Injection, 1000 mcg On: 22-Mar-2011 Intent (J3420)By: COMFORT Gallegos DRAIN/INJECT MAJOR JOINT OR On: 22-Mar-2011 Intent BURSA ()By: COMFORT Gallegos Comments: Lot #:[id number] date: given:2ml Route: intra articular Site given:bilateral knees Given by: Dr. Pizano Pulse Oximetry (58237)By: Quentin On: 19-Mar-2011 Intent SOCCER COMMENTATOR, Adeola Aerosol Treatment (11514)By: On: 19-Mar-2011 Intent Ciesa SOCCER COMMENTATOR, Adeola DRAIN/INJECT MAJOR JOINT OR On: 12-Mar-2011 Intent BURSA ()By: COMFOTR Gallegos Comments: Lot #:[id number] date: given:2ml Route: intra articular Site given:bilateral knees Given by: Dr. Pizano DRAIN/INJECT MAJOR JOINT OR On: 04-Mar-2011 Intent BURSA ()By: COMFORT Gallegos Comments: Lot #:[id number] date: given:2mlRoute: intra articular Site given:Bilateral knees Given by: Dr. Pizano injection #1 Kenalog Injection, 10 mgm On: 08-Feb-2011 Intent (J3301)By: Sarah Pizano MD Comments: x 8 Sarah Pizano MD Breast Ultrasound - LeftBy: On: 08-Feb-2011 Intent Sarah Pizano MD, MD, Sarah Rebollar DXA, BONE DENSITY, AXIAL On: 02-Nov-2010 Intent SKELETON (68700)By: Sarah Pizano MD, MD, Dana M MAMMOGRAM, SCREENING, BOTH On: 02-Nov-2010 Intent BREASTS (13091)By: Sarah Pizano MD, MD, Dana M FLU VAC, SPLIT, >3 YEARS, On: 17-Jun-2010 Intent INTRAMUSC (94731)By: Cayden Comments: Lot #[id number]-4/11Site-right deltoidgiven by:Chery PAVON LPN IMMUNIZ ADMNIN, 1 VAC, On: 17-Jun-2010 Intent SNGL/COMBO (27061)By: Chery Rodarte LPN DXA, BONE DENSITY, AXIAL On: 30-Sep-2009 Intent SKELETON (65045)By: Sarah Pizano MD, MD, Dana M MAMMOGRAM, SCREENING, BOTH On: 30-Sep-2009 Intent BREASTS (50846)By: Sarah Pizano MD, MD, Dana M B 12 Injection, 1000 mcg On: 30-Sep-2009 Intent (J3420)By: COMFORT Gallegos Pulse Oximetry (71281)By: Quentin On: 09-Apr-2009 Intent SOCCER COMMENTATOR, Adeola Aerosol Treatment (84032)By: On: 09-Apr-2009 Intent Ciesa SOCCER COMMENTATOR, Adeola FLU VAC, SPLIT, >3 YEARS, On: 26-Mar-2009 Intent INTRAMUSC (60121)By: Lisa HERRON, Andie IMMUNIZ ADMNIN, 1 VAC, On: 26-Mar-2009 Intent SNGL/COMBO (01583)By: Lisa HERRON, Comments: Lot #: [id number] date: mount given: 0.5 mlRoute: IMSite given: left deltoidGiven by: SCAR Montenegro INJECTION, VITAMIN B-12 On: 07-Feb-2009 Intent CYANOCOBALAMIN, UP TO 1000 MCG Comments: Lot #[id number] date: given:1mlSite given: right deltoidGiven by:Judith. (Special Coverage Instructions Apply. See C[facility]: 45-4 and [facility]: 2048) (J3420)By: COMFORT Gallegos Pulse Oximetry (90697)By: Ceci On: 04-Dec-2008 Intent DO, Rosa Maria A Comments: post vwanazjlp08% Aerosol Treatment (35173)By: On: 04-Dec-2008 Intent Fast DORosa Maria A Comments: done-aw B 12 Injection, 1000 mcg On: 04-Dec-2008 Intent (J3420)By: Tonia Garcia Comments: Lot #[id number]-05/2010Site-right lhbjptuNwsn7565ihf/1mlgiven by Debbie Lei LPN Pulse Oximetry (67836)By: On: 04-Dec-2008 Intent Tonia Garcia Comments: 91% [...] Intent (J3420)By: COMFORT Gallegos Comments: Lot #[id number]-right sbojpbtPrzp9420trk/1mlgiven by Debbie Lei LPN DRAIN/INJECT MAJOR JOINT OR On: 09-Oct-2008 Intent BURSA ()By: COMFORT Gallegos Comments: Lot #:[id number] date:mount given:Route: intra articular Site given:bilateral knees Given by: Dr. Pizano DRAIN/INJECT MAJOR JOINT OR On: 01-Oct-2008 Intent BURSA ()By: COMFORT Gallegos Comments: Lot #:[id number] date:mount given:2.5ml Route:intra-articular Site given:Bilateral knees Given by: Dr. Pizano DRAIN/INJECT MAJOR JOINT OR On: 24-Sep-2008 Intent BURSA ()By: COMFORT Gallegos Comments: Lot #:[id number] date: Amount given:2.5 mlRoute: intra-articular Site given:bilateral knees Given by: Dr. Pizano DRAIN/INJECT MAJOR JOINT OR On: 17-Sep-2008 Intent BURSA ()By: COMFORT Gallegos Comments: Lot #:[id number] date:mount given:2 grams Route: Intra articular Site given: bilateral knees Given by: Dr. Pizano DRAIN/INJECT MAJOR JOINT OR On: 13-Sep-2008 Intent BURSA ()By: COMFORT Gallegos Comments: Lot #:[id number] date:05-10 Amount given:2.5MLRoute: INTRA ARTICULAR Site given:bilateral knees Given by: Dr. Dima Sarkar 12 Injection, 1000 mcg On: 10-Sep-2008 Intent (J3420)By: COMFORT Gallegos B 12 Injection, 1000 mcg On: 29-Jul-2008 Intent (J3420)By: Denise Collazo Comments: Amt: 1mlLot: [id number]: 02/10Route: IMSite: right deltTolerated: wellGiven By: SCAR Sood Pulse Oximetry (19575)By: Quentin On: 29-Jul-2008 Intent KENDALL Adeola Aerosol Treatment (96214)By: On: 29-Jul-2008 Intent Ciesa KENDALL Adeola Aerosol Treatment (53876)By: On: 16-Jul-2008 Intent Sofia Younger DO Comments: done-awnoise resolved and much more air exchange Pulse Oximetry (76711)By: Carisa On: 16-Jul-2008 Sofia Davis DO Comments: 93% Solu- Medrol Injection, 125mg On: 16-Jul-2008 Intent (J2930)By: Sofia Younger DO Comments: Lot #[id number]-12/12Site-right eqlDnlt2xb/125mggiven by Debbie Lei LPN B 12 Injection, 1000 mcg On: 30-Apr-2008 Intent (J3420)By: Prema Lei Comments: Lot #[id number]-11/10Site-right ixcfpysKlrn9axjlskk by Debbie Lei LPN DXA, BONE DENSITY, AXIAL On: 30-Apr-2008 Intent SKELETON (37704)By: Dima DURAN, Comments: estrogen def Sarah Pizano MD, Sarah Rebollar MAMMOGRAM, SCREENING, BOTH On: 30-Apr-2008 Intent BREASTS (39337)By: Dima DURAN, Sarah Pizano MD, Sarah Rebollar B 12 Injection, 1000 mcg On: 27-Mar-2008 Intent (J3420)By: Tonia Garcia Comments: Lot #:[id number] date:mount given:.1mlRoute: IMSite given:left deltoidGiven by: EDEN Salcido Pulse Oximetry (11261)By: On: 27-Mar-2008 Intent Tonia Garcia Comments: 96% Pulse Oximetry (25638)By: On: 14-Mar-2008 Intent COMFORT Gallegos B 12 Injection, 1000 mcg On: 06-Feb-2008 Intent (J3420)By: Pamella Saavedra CNP Comments: Lot #:[id number] date: Amount given:1ml Route: IMSite given:left deltoid Given by: billy Solu -Medrol Injection, 125 mg On: 06-Feb-2008 Intent (J2930)By: Pamella Saavedra CNP Comments: Lot #:[id number] date:mount given:125mgRoute: IMSite given:left gluteal Given by: aretha Pulse Oximetry (76263)By: Quentin On: 06-Feb-2008 Intent Pamella ARGUETA Aerosol Treatment (00282)By: On: 06-Feb-2008 Intent Pamella Saavedra CNP B 12 Injection, 1000 mcg On: 21-Dec-2007 Intent (J3420)By: Ledy Nogueira Comments: given in right deltoid, lot#[id number], exp.3.10 >Wf. B 12 Injection, 1000 mcg On: 03-Oct-2007 Intent (J3420)By: Ciesa SOCCER COMMENTATOR, Adeola Pulse Oximetry (65051)By: Quentin On: 03-Oct-2007 Intent Pamella ARGUETA Aerosol Treatment (01992)By: On: 03-Oct-2007 Intent Bryanjunie Pamella ARGUETA Pulse Oximetry (05093)By: Lenny, On: 16-Aug-2007 Intent Cira Aerosol Treatment (97218)By: On: 16-Aug-2007 Intent Sofia Younger DO Comments: no wheeze and better air exchange Solu- Medrol Injection, 125mg On: 16-Aug-2007 Intent (J2930)By: Sofia Younger DO Comments: given in left buttocks.lot # [id number]\Exp 02/2010 SPECIMEN HNDLNG/TRNSPRT, OFFC > On: 16-Aug-2007 Intent LAB (95369)By: Sofia Yonuger DO B 12 Injection, 1000 mcg On: 01-Aug-2007 Intent (J3420)By: Prema Lei Comments: Lot #[id number]-05/12Site-left wivbgfcZlnr3zybtncu by Debbie Lei [facility] CT - ChestBy: Sarah Pizano MD On: 01-Aug-2007 Intent Sarah Pizano MD FLU VAC, SPLIT, >3 YEARS, On: 18-Apr-2007 Intent INTRAMUSC (08227)By: Sarah Pizano MD, MD, Dana M IMMUNIZ ADMNIN, 1 VAC, On: 18-Apr-2007 Intent SNGL/COMBO (25534)By: Sarah Pizano MD, MD, Dana M B [...] HNDLNG/TRNSPRT, OFFC > On: 10-Oct-2006 Intent LAB (96223)By: Sarah Pizano MD, MD, Dana M Solu -Medrol Injection, 125 mg On: 16-Sep-2006 Intent (J2930)By: Sarah iPzano MD Comments: lot # [id number] exp 04-[address] gluteal by Sarah Chacon lpn, MD Pulse Oximetry (09469)By: On: 16-Sep-2006 Intent Sarah Pizano MD, MD, Dana M Aerosol Treatment (30946)By: On: 16-Sep-2006 Intent Sarah Pizano MD, MD, Dana M Pulse Oximetry (38231)By: On: 04-Aug-2006 Intent Sarah Pizano MD, MD, Dana M EKG (61323)By: Sarah Pizano MD On: 08-Jul-2006 Intent Sarah Morfin MD IMMUNIZ ADMNIN, 1 VAC, On: 06-May-2006 Intent SNGL/COMBO (54973)By: Ramiro ABBOTT, Peg FLU VAC, SPLIT, >3 YEARS, On: 06-May-2006 Intent INTRAMUSC (93047)By: Ramiro ABBOTT, Comments: Lot #:Expiration date:Amount given:Route: imSite given:r armGiven by: galina golden lpn Peg Echo CompleteBy: Dima DURAN, On: 19-Apr-2006 Intent Sarah Ghosh MD CT - Abdomen & PelvisBy: Dima On: 19-Apr-2006 Intent Sarah DURAN MD, Dana M Comments: ?obstruction, pancreatitis, attention kidney cyst send to [facility] gastrologist [facility] Planned Medications INJECTION, METHYLPREDNISOLONE SODIUM [...] Advance Directives Name Dates Details Immunization Registry [place] - Effective on Effective: 29-Apr-201704/29/2017. Expiration date [...] high cholesterol, osteoarthritis and other (migraine, chronic baeu n, chronic pancreatitis, anemia, allergic rhinitis).Encounter Diagnosis: [...] (579.8), Hyponatremia (276.1), Asthma (493.11), Fibromyalgia (729.1), [facility] V73.21 [place] (Renamed from [facility]), Obesity,unspecified (278.00), GERD (530.81), DEFICIENCY, VITAMIN [...] ANEMIA DUE TO DIETARY IRON DEFICIENCY (280.1), [facility] V73.21 [place] (Renamed from [facility]) [facility] Office Visit On: [...] (477.8), Other vitamin B12 deficiency anemia (281.1), [facility] Phone Encounter On: [...] docs for this Dr Jacob rabago at [facility]-- -- feels similiar to what [...] months. Note for Fever: pt had epidural [id number] Diagnosis: Dehydration(276.51), Abdominal Pain,Generalized (789.07), FEVER (780.6) [...] care visit: swelling better with aldactone, reviewed garden consultant's letter use compression, work up from [...] weekend , bite by flies, camp in [facility], no fever abd pain still hit [...] Epigastric pain (789.06), SVC thrombosis, Fibromyalgia (729.1), [facility] Comprehensive Internal Medicine Office Visit On: [...] chemistry (790.6) [facility] Hospital[facility]; junie guarantor
--- OUTSIDE RECORDS SUMMARY | 2018-08-02 06:19 | XMS RPT_ITS | Continuity of Care Document ---
:1955 Author Organization [facility] Address [address] [place] [address] Phone Care Team Providers Name Role Phone Dima DURAN, Sarah Rebollar Unavailable Antonino Lucas MD Unavailable Princess DURAN, Brandan Buchanan Unavailable Senthil Romero Unavailable Jeremy DRUAN, Dr. George Walker Unavailable Kunal Lea DO [...] cervical.doing every 6 months. ariel leaving to [place]. reconmmend Dr. romero and i talk to [...] really expensive can use an equivalent Creon 23258 UNIT Oral Capsule Delayed Release Particles 2 [...] MD, Dana M Start : 30-Nov-2016 Active Greenland 5-325 MG Oral Tablet 1 (one) Tablet [...] Start : 14-Apr-2018 Active Vitamin D (Ergocalciferol) 83320 UNIT Oral Capsule 1 (one) capsule twice [...] MD, Dana M Start : 06-Feb-2018 Active Comments:-6-76 called to [facility] ADVAIR DISKUS, 100-50MCG/DOSE [...] End : 24-Aug-2012 Inactive CALCIUM 500/VITAMIN D, [id number]-[id number] (Oral Tablet) 1 (one) Tablet daily for [...] : 09-Mar-2016 End : 04-Jun-2016 Inactive Drisdol 27249 UNIT Oral Capsule 1 Capsule two times [...] : 21-Dec-2007 End : 14-Mar-2008 Inactive Nystatin 712641 UNIT/GM External Powder 1 Powder bid for [...] cervical.doing every 6 months. george leaving to [place]. reconmmend Dr. romero and i talk to [...] Procedures Procedure Dates Details [place] (18176) Date: 01-Oct-2016 Cancelled Cholecystectomy Completed GASTRIC BYPASS, OPEN (25268) Completed Comments: 1997, Dr. lindsay did for recurrent pancreatitis, this is what helped her. Hysterectomy; Abdominal Completed JEJUNOSTOMY (73846) Completed Comments: 1995 closed 1997 when had gastric bypass, because of pancreatitis and was tube feed for 2 years Date Value Details 21-Mar-2018 Dexa Bone Density Study Result: Comments: See Note; NOTES: [facility] Imaging Services [address] [place] [address] Dexa Bone Density Study MR#: [id number] Acct: [id number] Name: JOSE J COBIAN Rep #: [id number] : 1955 F 63 From: Bartolome Patel MD PCP: Sarah Pizano MD Status: REG CLI Study: Dexa Bone Density Study Date of Exam: 03/21/18 Exam# [id number] Ordering Dr: Sarah Pizano MD STUDY: D [...] Bartolome Patel MD at 15:07 EDT Tel [phone], Service support , CC: Sarah Pizano MD Solar Energy Technician: Signed 21-Mar-2018 SCREENING MAMM (CAD), BILAT Result: Comments: See Note; NOTES: [facility] Imaging Services [address] [place] [address] SCREENING MAMM (CAD), BILAT MR#: [id number] Acct: [id number] Name: JOSE J COBIAN Rep #: [id number] : 1955 F 63 From: Bartolome Patel MD PCP: Sarah Pizano MD Status: [facility] Study: SCREENING MAMM (CAD), BILAT Date of Exam: 03/21/18 Exam# [id number] Ordering Dr: Sarah Pizano MD MAMMOGRAPHY - [...] biopsy of a clinically suspicious abno rmality. [id number] Electronically Signed: Bartolome Patel MD at 13:21 EDT Tel [phone], Service support , CC: Sarah Pizano MD Solar Energy Technician: Signed 07-Nov-2017 Operative Report Result: Comments: See Note; NOTES: [facility] Medical Records Department [address] [place] [address] Operative Report 11/07/17 1027 MR#: [id number] Acct: [id number] Name: JOSE J COBIAN Rep #: [id number] : 1955 62 From: Bubba Romero MD PCP: Sarah Pizano MD Status: REG SDC Y Location: [place] [address] Problem List (1) Disc disease, degenerative, lumbar [...] 4 Views Result: Comments: See Note; NOTES: [facility] Imaging Services [address] [place] [address] L/S Spine Min 4 Views MR#: [id number] Acct: [id number] Name: JOSE J COBIAN Rep #: [id number] : 1955 F 62 From: Bartolome Patel MD PCP: Sarah Pizano MD Status: [facility] Study: L/S Spine Min 4 Views Date of Exam: 11/07/17 Exam# [id number] Ordering Dr: Bubba Romero MD PROCEDURE : [...] Bartolome Patel MD at 11:01 EDT Tel [phone], Service support , CC: Sarah Pizano MD; Bubba Romero Solar Energy Technician: Signed 04-Oct-2017 Cardiology Visit Report Result: Comments: See Note; NOTES: [facility] [address] [place] [address] OFFICE VISIT Date of Service: 10/03/17 MR#: [id number] Acct: [id number] Name: JOSE J COBIAN Rep #: [id number] : 1955 Provider: Chanel Shaw Age/Sex: 62/F [place] [facility] [place] Status: Signed HPI HPI Details: [...] Intake Visit Reasons: NOT SEEN SINCE 05/2016 Sr. Media Manager Required: No Accompanied by: Is patient [...] mg PO DAILY@0800 10/20/15 [History Confirmed 10/03/17] [place] codone Bitart/Apap 5-325 [Greenland 5/325] 1 tab PO Q4H PRN PRN [...] infarction beginning age 61's, has had several FL's CAD (co ronary artery disease) history of [...] Operative Report Result: Comments: See Note; NOTES: [facility] Medical Records Department [address] [place] [address] Operative Report 09/05/17 0944 MR#: [id number] Acct: [id number] Name: JOSE J COBIAN Rep #: [id number] : 1955 62 From: Bubba Romero MD PCP: Sarah Pizano MD Status: REG [facility] [place] Location: [place] [address] Problem List (1) Lumbosacral spondylosis Status: Chronic [...] 4 Views Result: Comments: See Note; NOTES: [facility] Imaging Services [address] [place] [address] L/S Spine Min 4 Views MR#: [id number] Acct: [id number] Name: JOSE J COBIAN Rep #: [id number] : 1955 F 62 From: Bartolome Patel MD PCP: Sarah Pizano MD Status: [facility] Study: L/S Spine Min 4 Views Date of Exam: 09/05/17 Exam# [id number] Ordering Dr: Bubba Romero MD PROCEDURE : Right L3 S1 lumbar facet block. DATE OF EXAMINATION: September 05, 2017. INDICATION: Female, 62 years old. Chronic low back pain. FLUOROSCOPY TIME (if supplied): (0:10) minutes/seconds Intraoperative i maging provided for right L3-S1 facet joint block. RAD/L/S Spine Min 4 Views IMPRESSION: Imaging provided for right L3-S1 facet joint block. El ectronically Signed: Bartoolme Patel MD at 9:02 EST Tel [phone], Service support , CC: Sarah Pizano MD; Bubba Romero Solar Energy Technician: Signed 08-Aug-2017 Operative Report Result: Comments: See Note; NOTES: [facility] Medical Records Department [address] [place] [address] Operative Report 08/08/17 1408 MR#: [id number] Acct: [id number] Name: JOSE J COBIAN Rep #: [id number] : 1955 62 From: Bubba Romero MD PCP: Sarah Pizano MD Status: [facility] Y [place] [facility] Problem List (1) Lumbosacral radiculopathy Status: Chronic [...] 3 Views Result: Comments: See Note; NOTES: [facility] Imaging Services [address] [place] [address] Lumbar Spine 2 or 3 Views MR#: [id number] Acct: [id number] Name: JOSE J COBIAN Rep #: [id number] : 1955 F 62 From: Bartolome Patel MD PCP: Sarah Pizano MD Status: [facility] Study: Lumbar Spine 2 or 3 Views Date of Exam: 08/08/17 Exam# [id number] Ordering Dr: Bubba Romero MD P ROCEDURE: [...] Bartolome Patel MD at 11:32 EST Tel [phone], Service support , CC: Sarah Pizano MD; Bubba Romero Solar Energy Technician: Signed 09-May-2017 Operative Report Result: Comments: See Note; NOTES: [facility] Medical Records Department [address] [place] [address] Operative Report 05/09/17 1348 MR#: [id number] Acct: [id number] Name: VIRAJ COBIANA Denise Rep #: [id number] : 1955 62 From: Bubba Romero MD PCP: Sarah Pizano MD Status: REG SDC Y Location: [place] [address] Report of Operation Date of Procedure: 05/09/17 [...] Spine Inj Result: Comments: See Note; NOTES: [facility] Imaging Services [address] [facility] [place] [address] Fluor Guidance for Spine Inj MR#: [id number] Acct: [id number] Name: JOSE J COBIAN Rep #: [id number] : 1955 F 62 From: Bartolome Patel MD PCP: Sarah Pizano MD Status: [facility] Study: Fluor Guidance for Spine Inj Date of Exam: 05/09/17 Exam# [id number] Ordering Dr: Bubba Romero MD PROCEDURE: Caudal [...] Bartolome Patel MD at 14:03 EST Tel [phone], Service support , CC: Sarah leigh MD; Bubba Romero Solar Energy Technician: Signed 29-Apr-2017 L/S Spine Min 4 Views Result: Comments: See Note; NOTES: [facility] Imaging Services [address] [place] [address] L/S Spine Min 4 Views MR#: [id number] Acct: [id number] Name: JOSE J COBIAN Rep #: [id number] : 1955 F 62 From: Feliberto Sim MD PCP: Sarah Pizano MD Status: REG CLI Study: L/S Spine Min 4 Views Date of Exam: 04/29/17 Exam# [id number] Ordering Dr: Lizeth Sanches STUDY: X-RAY - [...] , CC: Lizeth Sanches; Sarah Pizano MD Solar Energy Technician: Signed 21-Mar-2017 Operative Report Result: Comments: See Note; NOTES: [facility] Medical Records Department [address] [place] [address] Operative Report 03/21/17 0841 MR#: [id number] Acct: [id number] Name: JOSE J COBIAN Rep #: [id number] : 1955 62 From: Bubba Romero MD PCP: Sarah Pizano MD Status: DEP [facility] [place] Location[place] [facility] Problem List (1) Cervical spine degeneration Status: [...] 5 Views Result: Comments: See Note; NOTES: [facility] Imaging Services [address] [place] [address] Cerv Spine 4 or 5 Views MR#: [id number] Acct: [id number] Name: JOSE J COBIAN Rep #: [id number] : 1955 F 62 From: Daniel Manzano DO PCP: Sarah Pizano MD Status: [facility] Study: Cerv Spine 4 or 5 Views Date of Exam: 03/21/17 Exam# [id number] Ordering Dr: Bubba Romero MD STUDY: X-RAY - CERVICAL SPINE REASON FOR EXAM: Female, 62 years old. Cervical block TECHNIQUE: 4 view(s) of the cervical spine were obtained. COMPARISON: None FINDINGS: Face t block was performed with 4 spot fluoroscopy images obtained. Total fluoroscopy time 14.7 seconds. Please see performing physician's report for further details ORD ER #: [id number] RAD/Cerv Spine 4 or 5 Views IMPRESSION: As above Electronically Signed: Daniel Manzano DO at 16:12 EDT Tel , Service support , CC: Sarah Pizano MD; Bubba Romero Solar Energy Technician: Signed 17-Jan-2017 Operative Report Result: Comments: See Note; NOTES: [facility] Medical Records Department [address] [place] [address] Operative Report 01/17/17 1246 MR#: [id number] Acct: [id number] Name: JOSE J COBIAN Rep #: [id number] : 1955 61 From: Bubba Romero MD PCP: Sarah Pizano MD Status: DEP [facility] [place] [facility] Problem List (1) Cervical spine degeneration Status: [...] 5 Views Result: Comments: See Note; NOTES: [facility] Imaging Services [address] [place] [address] Verdana 4d Cerv Spine 4 or 5 Views MR#: [id number] Acct: [id number] Name: JOSE J COBIAN #: [id number] : 1955 F 61 From: Tonia Galvan MD PCP: Sarah Pizano MD Status: [facility] Study: Cerv Spine 4 or 5 Views Date of Exam: 01/17/17 Exam# [id number] Ordering Dr: Bubba Romero MD STUDY: X-RAY [...] Tonia Galvan MD at 16:36 EDT Tel [phone], Service support , CC: Sarah Pizano MD; Bubba Romero Solar Energy Technician: Signed 09-Oct-2016 Abdomen/Pelvis WITH Contrast Result: Comments: See Note; NOTES: [facility] Imaging Services [address] [place] [address] Shiradana 4d Abdomen/Pelvis WITH Contrast MR#: [id number] Acct: [id number] Name: VIRAJ COBIAN Rep #: [id number] : 1955 F 61 From: Enrike Peres PCP: Sarah Pizano MD Status: REG CLI Study: Abdomen/Pelvis WITH Contrast Date of Exam: 10/09/16 Exam# [id number] Ordering Dr: Sarah Pizano MD STUDY: CT [...] at 9:47 EDT Tel , Service support [phone], CC: Sarah Pizano MD Solar Energy Technician: Signed 23-Aug-2016 Operative Report Result: Comments: See Note; NOTES: [facility] Medical Records Department [address] [place] [address] Operative Report MR#: [id number] Acct: [id number] Name: JOSE J COBIAN Rep #: [id number] : 1955 61 From: Bubba Romero MD PCP: Sarah Pizano MD Status: [facility] DATE OF SERVICE: 08/09/2016 DATE OF PROCEDURE: [...] indicated. Bubba Romero MD T: NTS JOB: [id number] 08/23/16 1357 <Electronica lly signed by Bubba Romero MD> Date [facility] Signature (If Indicated): Date ____ CC: Sarah Pizano MD; Bubba Romero Date Dictated: 08/09/16 1311 Date Transcribed: 08/09/161310 Solar Energy Technician: Signed 09-Aug-2016 Thoracic Spine 3 Views Result: Comments: See Note; NOTES: [facility] Imaging Services [address] [place] [address] Verdana 4d Thoracic Spine 3 Views MR#: [id number] Acct: [id number] Name: JOSE J COBIAN p #: [id number] : 1955 F 61 From: Azalia Fernandes MD PCP: Sarah Pizano MD Status: [facility] Study: Thoracic Spine 3 Views Date of Exam: 08/09/16 Exam# [id number] Ordering Dr: Bubba Romero MD JERO DY: [...] at 1 2:18 EST , Service support [phone], CC: Sarah Pizano MD; Bubba Romero Solar Energy Technician: Signed 01-Jun-2016 PT D/C of Non Returning Pt (1) Result: Comments: See Note; NOTES: [facility] Physical Therapy [facility] [address] [place], [place] [address] Fax REHABILITATION SERVICES DISCHAR GE SUMMARY MR#: [id number] Acct: [id number] Name: JOSE J COBIAN Rep #: [id number] Operative Report Result: Comments: See Note; NOTES: [facility] Medical Records Department [address] [place] [address] Operative Report MR#: [id number] Acct: [id number] Name: JOSE J COBIAN Rep #: [id number] : 1955 61 From: Bubba Romero MD PCP: Sarah Pizano MD Status: [facility] DATE OF SERVICE: 03/22/2016 DATE OF SERVICE: [...] indicated. Bubba Romero MD T: NTS JOB: [id number] 04/05/16 1351 <E lectronically signed by Bubba Romero MD> Date Bubba Romero MD Cosigner Signature (If Indicated): Date CC: Sarah Pizano MD; Bubba Romero Date Dictated: 03/22/161415 Date Transcribed: 03/22/161415 Solar Energy Technician: Signed 01-Apr-2016 Echocardiogram Complete Result: Comments: See Note; NOTES: [facility] Cardiovascular Services [address] [place] [address] Echo Complete 04/01/16 1256 MR#: [id number] Acct: [id number] Name: JOSE J COBIAN Rep #: [id number] : 1955 61 From: Antonino Lucas MD Attending Dr: Antonino Lucas MD Status: REG CLI Ordering Dr: Antonino Lucas MD Date: 04/01/16 Location: [facility] Sex: F C Admitted: Reason For Study: [...] Dictated: 04/01/16 1256 Date Transcribed: 04/01/16 1515 Solar Energy Technician: Signed 22-Mar-2016 Breast Limited Unilateral Result: Comments: See Note; NOTES: [facility] Imaging Services [address] [place] [address] Verdana 4d Breast Limited Unilateral MR#: [id number] Acct: [id number] Name: JOSE J COBIAN Rep #: [id number] : 1955 F 61 From: Bartolome Patel MD PCP: Sarah Pizano MD Status: REG CLI Study: Breast Limited Unilateral Date of Exam: 03/22/16 Exam# [id number] Ordering Dr: Zack Pizano MD STUDY: ULTRASOUND [...] Bartolome Patel MD at 12:35 EDT Tel [phone], Service support [phone], CC: Sarah Pizano MD Solar Energy Technician: Signed 19-Mar-2016 Thoracic Spine 3 Views Result: Comments: See Note; NOTES: [facility] Imaging Services [address] [place] [address] Verdana 4d Thoracic Spine 3 Views MR#: [id number] Acct: [id number] Name: MANGOVIRAJA Denise Prather #: [id number] : 1955 F 61 From: Bartolome Patel MD PCP: Sarah Pizano MD Status: REG [facility] Study: Thoracic Spine 3 Views Date of Exam: 03/22/16 Exam# [id number] Ordering Dr: Bubba Romero MD STUDY: X-RAY [...] Bartolome Patel MD at 14:10 EDT Tel [phone], Service support [phone], CC: Sarah vasquez MD; Bubba Romero Solar Energy Technician: Signed 19-Mar-2016 Inital Evaluation (1) - PT Result: Comments: See Note; NOTES: [facility] Physical Therapy [facility] [address] [place] [address] Fax REHABILITATION SERVICES HERI Springer EVALUATION MR#: [id number] Acct: [id number] Name: JOSE J COBIAN Rep #: [id number] : 1955 61 From: Mac Smith Referring Dr.: Bubba Romero Status: REG RCR Insurance: [employer] ARE MEDICARE Patient's Visit Information JOSE J [...] to be FAXED BACK to us at [phone] for Medicare purposes. Please let me know [...] AND CAD Result: Comments: See Note; NOTES: [facility] Imaging Services [address] [place] [address] Verdana 4d Bilat Scrn Digital AND CAD MR#: [id number] Acct: [id number] Name: JOSE J COBIAN Rep #: [id number] : 1955 F 61 From: Bartolome Patel MD PCP: Sarah Pizano MD Status: REG CLI Study: Bilat Scrn Digital AND CAD Date of Exam: 03/16/16 Exam# [id number] Ordering Dr: Sarah Pizano MD MAMMOGRAPHY - [...] delay biopsy of a clinically suspicious abnormality. [id number] Electronically Signed: Bartolome Patel MD at 15:06 EDT Tel [phone], Service supp ort [phone], CC: Sarah Pizano MD Solar Energy Technician: Signed 16-Mar-2016 Dexa Bone Density Study (HP) Result: Comments: See Note; NOTES: [facility] Imaging Services [address] [facility] [place] [address] Verdana 4d Dexa Bone Density Study (HP) MR#: [id number] Acct: [id number] Name: MAURI COBIAN Rep #: [id number] : 1955 F 61 From: Bartolome Patel MD PCP: Sarah Pizano MD Status: REG CLI Study: Dexa Bone Density Study (HP) Date of Exam: 03/16/16 Exam# [id number] Ordering Dr: Sarah Deng MD STUDY: DUAL [...] Bartolome Patel MD at 14:15 EDT Tel [phone], Service support [phone], CC: Sarah Pizano MD Solar Energy Technician: Signed 22-Feb-2016 History and Physical Exam Result: Comments: See Note; NOTES: [facility] Medical Records Department [address] [place] [address] History and Physical 02/22/162054 MR#: [id number] Acct: [id number] Name: JOSE J COBIAN Rep #: [id number] : 1955 60 From: An Dent DO [...] was seen in the emergency room at [facility] with a chief complaint of precordial [...] - Mediport placement Psychiatric Hist ory: Anxiety GROUP FITNESS MANAGER History: No pertinent GROUP FITNESS MANAGER history Lives: Spouse/ Significant Other Smoking [...] 44.6 L Lymph % (Auto) 46.1 H Banks % (Auto) 6.9 Eos % (Auto) 2.0 [...] View (Portable) Result: Comments: See Note; NOTES: [facility] Imaging Services [address] [place] [address] Verdaolvin 4d Chest 1 View (Portable) MR#: [id number] Acct: [id number] Name: JOSE J COBIAN Rep #: [id number] : 1955 F 60 From: Kim Dsouza MD PCP: Sarah Pizano MD Status: REG ER Study: Chest 1 View (Portable) Date of Exam: 02/22/16 Exam# [id number] Ordering Dr: Mac hCi MD STUDY: X-RAY CHEST REASON FOR EXAM: [...] MD at 19:35 EDT , Service support [phone], CC: Sarah Pizano MD; Mac Chi MD Solar Energy Technician: Signed 16-Feb-2016 Thoracic Spine 3 Views Result: Comments: See Note; NOTES: [facility] Imaging Services [address] [place] [address] Verdana 4d Thoracic Spine 3 Views MR#: [id number] Acct: [id number] Name: JOSE J COBIAN Yamilka #: [id number] : 1955 F 60 From: Kirk Wall MD PCP: Sarah Pizano MD Status: REG CLI Study: Thoracic Spine 3 Views Date of Exam: 02/16/16 Exam# [id number] Ordering Dr: Sarah Pizano MD ST UDY: [...] at 21:50 EDT , S titi support [phone], CC: Sarah Pizano MD Solar Energy Technician: Signed 03-Nov-2015 Operative Report Result: Comments: See Note; NOTES: [facility] Medical Records Department [facility] [place] [address] Operative Report MR#: [id number] Acct: [id number] Name: JOSE J COBIAN Rep #: [id number] : 1955 60 From: Bubba Romero MD PCP: Sarah Pizano MD Status: [facility] DATE OF SERVICE: 10/20/2015 DATE OF PROCEDURE: [...] indicated. Lidia Romero MD T: NTS JOB: [id number] 11/03/15 0795 <Electronically signed by Bubba Romero MD> Date Bubba Romero MD Co signer Signature (If Indicated): Date CC: Sarah Pizano MD; Bubba Romero Date Dictated: 10/20/15 1351 Date Transcribed: 10/20/151350 Solar Energy Technician: Signed 20-Oct-2015 Cerv Spine 2 or 3 Views Result: Comments: See Note; NOTES: [facility] Imaging Services [address] [place] [address] Verdana 4d Cerv Spine 2 or 3 Views MR#: [id number] Acct: [id number] Name: JOSE J NOWAK Rep #: [id number] : 1955 F 60 From: Bartolome Patel MD PCP: Sarah Pizano MD Status: [facility] Study: Cerv Spine 2 or 3 Views Date of Exam: 10/20/15 Exam# [id number] Ordering Dr: Bubba Romero MD STUDY: X-RAY [...] Bartolome Patel MD at 13:45 EDT Tel [phone], Service support [phone], RAD/Cerv Spine 2 or 3 Views IMPRESSION: Fluoroscopic services provided for right 4 through C7 facet block. Electronically Signed: Bartolome Patel MD at 13:45 EDT Tel [phone], Service support [phone], CC: Sarah Pizano MD; Bubba Romero Solar Energy Technician: Signed 18-Aug-2015 Operative Report Result: Comments: See Note; NOTES: [facility] Medical Records Department [address] [place] [address] Operative Report MR#: [id number] Acct: [id number] Name: JOSE J COBIAN Denise Rep #: [id number] : 1955 60 From: Bubba Romero MD PCP: Sarah Pizano MD Status: [facility] DATE OF SERVICE: 08/04/2015 DATE OF SERVICE: [...] if indicate d. Bubba Romero MD T: [facility] JOB: [id number] 08/18/15 0927 <Electronically signed by Bubba Romero MD> Date Bubba copeland MD Cosigner Signature (If Indicated): Date CC: Sarah Pizano MD; Bubba Romero Date Dictated: 08/04/151432 Date Transcribed: 08/04/151432 Solar Energy Technician: Signed 04-Aug-2015 Cerv Spine 2 or 3 Views Result: Comments: See Note; NOTES: [facility] Imaging Services [address] [place] [address] Verdana 4d Cerv Spine 2 or 3 Views MR#: [id number] Acct: [id number] Name: JOSE J NOWAK Rep #: [id number] : 1955 F 60 From: Kirk Wall MD PCP: Sarah Pizano MD Status: [facility] Study: Cerv Spine 2 or 3 Views Date of Exam: 08/04/15 Exam# [id number] Ordering Dr: Osiel Romero MD STUDY: X-RAY [...] MD at 16:28 EST , Service support [phone], RAD/Cerv Spine 2 or 3 Views IMPRESSION: Needle positions as above. Electronically Signed: Kirk Wall MD at 16:28 EST , Service support [phone], CC: Sarah Pizano MD; Bubba Romero Solar Energy Technician: Signed 02-Jul-2015 Hip min 2 Views Result: Comments: See Note; NOTES: [facility] Imaging Services [address] [place] [address] Verdana 4d Hip min 2 Views MR#: [id number] Acct: [id number] Name: VIRAJ COBIAN Rep #: [id number] : 1955 F 60 From: Tuan Boyd MD PCP: Sarah Pizano MD Status: REG CLI Study: Hip min 2 Views Date of Exam: 07/02/15 Exam# [id number] Ordering Dr: Sarah Pizano MD S DY: [...] at 12:42 EST Tel , Service support [phone], Fax RAD/Hip min 2 Views IMPRESSION: Normal x-ray examination of the hip. Electronically Signed: Lucius Boyd MD at 12:42 EST Tel , Linnea e support [phone], CC: Sarah Pizano MD Solar Energy Technician: Signed 24-Jun-2015 Pelvis 1 or 2 Views Result: Comments: See Note; NOTES: [facility] Imaging Services [address] [place] [address] Verdana 4d Pelvis 1 or 2 Views MR#: [id number] Acct: [id number] Name: JOSE J COBIAN Rep #: [id number] : 1955 F 60 From: Prosper Dumont MD PCP: Sarah Pizano MD Status: REG CLI Study: Pelvis 1 or 2 Views Date of Exam: 06/24/15 Exam# [id number] Ordering Dr: Tuan Pizano MD STUDY: X-RAY [...] at 11:20 EST Tel , Service support [phone], RAD/Pelvis 1 or 2 Views IMPRESS ION: There is narrowing with cortical sclerosis and osteophyte formation of the sacroiliac joint consistent with degenerative osteoarthritic changes. Electronically Signed: Lavell Dmuont MD 08/26 at 11:20 EST Tel , Service support [phone], CC: Sarah Pizano MD Solar Energy Technician: Signed 07-Feb-2015 Chest PA and Lateral Result: Comments: See Note; NOTES: [facility] Imaging Services [address] [place] [address] Radiology Report MR#: [id number] Acct: [id number] Name: JOSE J COBIAN Rep #: [id number] : 1955 F 59 From: Baldemar Torres DO PCP: Sarah Pizano MD Status: REG CLI Study: Chest PA and Lateral Date of Exam: 02/07/15 Exam# [id number] Ordering Dr: Pamella Saavedra STUDY: X-RAY CHES T REASON FOR EXAM: Female, 59 years old. Bronchitis. TECHNIQUE: PA and lateral views of the chest. COMPARISON: January 19, 2013 FINDINGS: Stable right jugular Port-A-Cath. The lungs are clear and expanded. There is no demonstrated pleural abnormality. Normal size heart. Normal mediastinum and uy. Normal visualized pulmonary arteries. Normal visualized aortic arch and descending thoracic aorta. Normal visualized thoracic spine. Normal visualized ribs, clavicles, and shoulders. There are surgical changes in the region of the GE junction. IMPRESSION: No acute cardiopulmonary disease or interval change. Electronically Signed: Baldemar Torres DO at 19:14 EDT Tel [phone], Service support , RAD/Chest PA and Lateral IMPRESSION: No acute cardiopulmonary disease or interval change. Electronically Signed: Baldemar Torres DO at 19: 14 EDT Tel [phone], Service support [phone], CC: Pamella Saavedra; Sarah Pizano MD Solar Energy Technician: Signed 05-Feb-2014 Katie Santillann Digital & CAD Result: Comments: See Note; NOTES: [facility] Imaging Services [address] [place] [address] Breast Imaging Report MR#: [id number] Acct: [id number] Name: JOSE J COBIAN Rep #: [id number] : 1955 F 58 From: Bartolome Patel MD PCP: Sarah Pizano MD Status: REG CLI Exam# [id number] Ordering Dr: Sarah Pizano MD MAMMOGRAPHY - [...] Bartolome Patel MD at 13:16 EDT Tel [phone], Service support [phone], CC: Sarah Pizano MD Solar Energy Technician: Signed 06-Jun-2013 Abdomen/Pelvis with Contrast Result: Comments: See Note; NOTES: [facility] Imaging Services [address] [place] [address] CAT Scan Report MR#: [id number] Acct: [id number] Name: JOSE J COBIAN Rep #: [id number] : 1955 F 58 From: Tuan Atkins MD PCP: Sarah Pizano MD Status: REG CLI Study: Abdomen/Pelvis with Contrast Date of Exam: 06/06/13 Exam# [id number] Ordering Dr: Sarah Pizano MD STUD Y: [...] M.D. 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0 (Normal) UA - BLOOD Negative (Normal) UA - SPECIFIC GRAVITY 1.010 (Normal) UA - KETONES Negative mg/dL (Normal) UA - BILIRUBIN Negative (Normal) UA - GLUCOSE Negative (Normal) 03-Apr-20188:00 Protime w/INR Fingerstick Comments: [facility] LaboratoryPoint of Mmed[address] [place], [place] [address] INR ISTAT 1.10 (Normal) Comments: Critical Value > 3.5 PROTIME ISTAT 13.7 {SEC} (Normal) Range: 11.9-14.4 Comments: Reference Range 11.9 - 14.4 :23 Amylase 89 U/L (Normal) Comments: PATIENT NOT FASTINGPERFORMED BY: LabCoNew Bridge Medical CenterQiqezd3[address] [facility] [id number] Range: 31-124 71-Dsq-770280:23 CBC With Differential/Platelet Comments: PATIENT NOT FASTINGPERFORMED BY: LabCoNew Bridge Medical CenterYyufdn[address] [facility] [id number] Immature Grans (Abs) 0.0 {x10E3/uL} (Normal) Range: [...] 3.77-5.28 WBC 4.2 {x10E3/uL} (Normal) Range: 3.4-10.8 85-Uid-167938:23 Comp. Metabolic Panel (14) Comments: PATIENT NOT FASTINGPERFORMED BY: SoNetJobNew Bridge Medical CenterEeygoa[address] [id number] ALT (SGPT) 18 [iU]/L (Normal) Range: 0-32 [...] U/L (Abnormal) Comments: PATIENT NOT FASTINGPERFORMED BY: SoNetJobNew Bridge Medical CenterEyqvgu[address] [facility] [address] [id number] 4:23 Range: 14-72 89-Ekr-640749:23 Urinalysis, Routine Comments: PATIENT NOT FASTINGPERFORMED BY: LabCoNew Bridge Medical CenterEabmyi[address] [place] [id number] Microscopic Examination MICNIP (Normal) Comments: Microscopic not indicated and not performed. Nitrite, Urine Negative (Normal) Urobilinogen,Semi-Qn 1.0 mg/dL (Normal) Range: 0.2-1.0 Bilirubin Negative (Normal) Occult Blood Negative (Normal) Ketones Negative (Normal) Glucose Negative (Normal) Protein Negative (Normal) WBC Esterase Negative (Normal) Appearance Clear (Normal) Urine-Color Yellow (Normal) pH 6.0 (Normal) Range: 5.0-7.5 Specific Republic 1.020 (Normal) Range: 1.005-1.030 :42 Protime w/INR Fingerstick Comments: [facility] LaboratoryPoint of Fhzn[address] [place], [place] [address] INR ISTAT 1.00 (Normal) Comments: Critical Value > 3.5 PROTIME ISTAT 12.4 {SEC} (Normal) Range: 11.9-14.4 Comments: Reference Range 11.9 - 14.4 59-Eip-114074:14 CBC W/Diff, Automated Comments: [facility] [address] [place], [address] ; fu 6-19 Absolute Lymph [...] 4.2-5.4 WBC 4.7 K/mm3 (Normal) Range: 4.4-11.0 82-Yxu-372908:14 Comprehensive Metabolic Profil Comments: [facility] [address] [place], [address] GAP 5 (Normal) Range: 5-15 CO2 29.0 [...] A.D.A. criteria.Please note revised GLUCOSE reference range iylpatpsu49/02/2018. 50-Hbq-825225:14 Ferritin Comments: [facility] [address] [place], [address] FERRITIN 82 ng/mL (Normal) Range: 8-252 73-Jcb-234676:14 Vitamin B12 558 pg/mL (Normal) Comments: [place] [address] [address] [place], [address] Range: 211-911 05-Sep-20178:07 Protime w/INR Fingerstick Comments: [facility] LaboratoryPoint [place] [address] [address] [place] [address] INR ISTAT 1.30 (Normal) Comments: Critical Value > 3.5 PROTIME ISTAT 14.9 {SEC} (Abnormal) Range: 11.9-14.4 Comments: Reference Range 11.9 - 14.4 08-Aug-20179:10 Protime w/INR Fingerstick Comments: [place] [address] [place] [address] INR ISTAT 1.10 (Normal) Comments: Critical Value > 3.5 PROTIME ISTAT 13.0 {SEC} (Normal) Range: 11.9-14.4 Comments: Reference Range 11.9 - 14.4 42-Vrp-346163:32 Culture, Blood (WB) Comments: [place] [address] [address] [place], [id number] CUB See Note (Normal) Comments: Has pt arrived? Y Comments: DR. Mello growth in 5 days. 67-Zar-689022:25 CBC W/Diff, Automated Comments: Comments: DR Ciu [facility] [address] [place], [address] Absolute Lymph 1.68 {X10_3/ul} (Normal) [...] 4.2-5.4 WBC 3.9 K/mm3 (Abnormal) Range: 4.4-11.0 62-Uyh-280813:25 Culture, Blood (WB) Comments: [facility] [address] [place], [address] CUB See Note (Normal) Comments: Has pt arrived? Y Comments: DR. Mello growth in 5 days. 45-Arp-361864:25 Erythrocyte Sed Rate Comments: Comments: DR Cui [facility] [address] [place], [address] SED RATE 8 mm/h (Normal) Range: 0-30 47-Ulb-464796:25 Ferritin Comments: Comments: [facility] [address]ynyvn[address] [place]ae[place], [address] FERRITIN 83 ng/mL (Normal) Range: 8-252 82-Rfo-104311:25 Vitamin D,25 Hydroxy Comments: Order Date: 07/20/17[facility] [address] [place], [address] Vitamin D 25-OH 34.6 ng/mL (Normal) Comments: Vitamin D 25(OH) Status Range Deficiency <20 ng/mL (50nmol/L) Insuffciency 20 - 30 ng/mL (50 - 75 nmol/L) Sufficiency 30 - 100 ng/mL (75 - 250 nmol/L) Toxicity >100 ng/mL (>250 nmol/L) 42-Iaz-691300:10 Culture, Urine Comments: [facility] N[address]ytci[address] [place] [place], [address] CUUR See Note (Normal) Comments: Order Date: 07/20/17 Comments: DR PIZANO Urine CultureCulture exhibits no growth. 90-Mue-457429:10 Urinalysis, Complete Comments: Order Date: 07/20/17Has pt arrived? YComments: DR Morales was Urine Obtained? CLEAN [facility] [address] [place], [address] MUCUS, URINE 0 SEEN {/hpf} (Normal) [...] Yellow (Normal) :48 Protime w/INR Fingerstick Comments: [place] [address] [place] [address] INR ISTAT 1.10 (Normal) Comments: Critical Value > 3.5 PROTIME ISTAT 13.2 {SEC} (Normal) Range: 11.9-14.4 Comments: Reference Range 11.9 - 14.4 :30 Protime w/INR Fingerstick Comments: [place] [address] [place] [address] INR ISTAT 1.10 (Normal) Comments: Critical Value > 3.5 PROTIME ISTAT 12.8 {SEC} (Normal) Range: 11.9-14.4 Comments: Reference Range 11.9 - 14.4 :44 INR Fingerstick Comments: [place] [address] [place] [address] INR ISTAT 1.10 (Normal) Comments: Critical Value > 3.5 :44 Prothrombin Time Fingerstick Comments: [place] [address] [place] [address] PROTIME ISTAT 13.6 {SEC} (Normal) Range: 11.9-14.4 Comments: Reference Range 11.9 - 14.4 59-Abr-277145:17 HgA1C , Office (82424) HgA1C , Office 5.7 % (Normal) Range: 4.6 - 7.1 97-Paj-077367:08 Metabolic Panel, Basic Comments: PATIENT NOT FASTINGPERFORMED BY: [facility] [address] [id number] (17778) Calcium, Serum 9.1 mg/dL (Normal) Range: 8.7-10.3 [...] Glucose, Serum 97 mg/dL (Normal) Range: 65-99 08-Nlo-558072:08 CBC (Auto) (10931) Comments: PATIENT NOT FASTINGPERFORMED BY: KiteDesk[address] [facility] [id number] Platelets 306 {x10E3/uL} (Normal) Range: 150-379 RDW 15.6 % (Abnormal) Range: 12.3-15.4 MCHC 32.9 g/dL (Normal) Range: 31.5-35.7 MCH 28.3 pg (Normal) Range: 26.6-33.0 MCV 86 fL (Normal) Range: 79-97 Hematocrit 35.9 % (Normal) Range: 34.0-46.6 Hemoglobin 11.8 g/dL (Normal) Range: 11.1-15.9 RBC 4.17 {x10E6/uL} (Normal) Range: 3.77-5.28 WBC 4.6 {x10E3/uL} (Normal) Range: 3.4-10.8 06-Egh-463076:08 URINALYSIS W/O MICRO (55547) Comments: PATIENT NOT FASTINGPERFORMED BY: KiteDesk6370 [facility]lex[facility] TherapeuticsHugh [facility] [id number] Microscopic Examination MICNIP (Normal) Comments: Microscopic not indicated and not performed. Nitrite, Urine Negative (Normal) Urobilinogen,Semi-Qn 0.2 mg/dL (Normal) Range: 0.2-1.0 Bilirubin Negative (Normal) Occult Blood Negative (Normal) Ketones Negative (Normal) Glucose Negative (Normal) Protein Negative (Normal) WBC Esterase Negative (Normal) Appearance Clear (Normal) Urine-Color Yellow (Normal) pH 6.0 (Normal) Range: 5.0-7.5 Specific Republic 1.013 (Normal) Range: 1.005-1.030 98-Ehp-738702:08 COMPLEMENT C4 (77954) Comments: PATIENT NOT FASTINGPERFORMED BY: [facility] [id number] Complement C4, Serum 16 mg/dL (Normal) Range: 14-44 28-Wre-475954:08 COMPLEMENT C3 (70125) Comments: PATIENT NOT FASTINGPERFORMED BY: [address] [id number] Complement C3, Serum 103 mg/dL (Normal) Range: 82-167 11-Qtf-060225:08 DNA ANTIBODY-NATV/DBL ST (23385) Comments: PATIENT NOT FASTINGPERFORMED BY: [address] [id number] test code 681319 Anti-DNA (DS) Ab Qn <1 {IU/mL} (Normal) Range: 0-9 Comments: Negative <5 Equivocal 5 - 9 Positive >9 10-Dvw-690846:08 Sed Rate Erythrocyte (09461) Comments: PATIENT NOT FASTINGPERFORMED BY: [place] [address] [facility] [id number] Sedimentation Rate-Westergren 4 mm/h (Normal) Range: 0-40 56-Ugy-346695:08 DESIRAE (ANTINUCLEAR ANTIBODY) Comments: PATIENT NOT FASTINGPERFORMED BY: [address] [id number] (51107) DESIRAE Direct Negative (Normal) 2-Izi-038105:04 Prothrombin Time w/INR Comments: [facility] [address] [place], [place], [address] INR 1.5 (Normal) PROTIME 17.8 s (Abnormal) Range: 11.7-14.9 77-Pxx-370875:45 Prothrombin Time w/INR Comments: [facility] [address] [place], [place], [address]) INR 3.0 (Normal) PROTIME 30.3 s (Abnormal) Range: 11.7-14.9 :51 Serum Creatinine AND GFR Comments: [facility] [address] [place], [address] EST GFR - AA 90 mL/min (Normal) Comments: GFR Calc EST GFR 74 mL/min (Normal) Comments: Non- GFR Calc CREAT,SERUM 0.83 mg/dL (Normal) Range: 0.55-1.02 Comments: The validity of the calculated GFR AND GFRAA in patients over70 years has not been determined. Clinical correlation isessential. :21 LIPASE (37201) Comments: PATIENT NOT FASTINGPERFORMED BY: [facility] Lpqxyz8[address] RoadDublin [place] [id number] Lipase, Serum 46 U/L (Normal) Range: 14-72 Comments: Please note reference interval change :21 AMYLASE (37685) Comments: PATIENT NOT FASTINGPERFORMED BY: CB [facility] Kkpqfh6762 [address]ila RoadDublin [place] [id number] Amylase, Serum 65 U/L (Normal) Range: 31-124 6-Kgb-553864:21 CALCIFIDIOL (52062) VIT D 25 Comments: PATIENT NOT FASTINGPERFORMED BY: CB [facility] Sbrlzb0646 [address]ila RoadDublin [place] [id number] Vitamin D, 25-Hydroxy 25.8 ng/mL (Abnormal) Range: 30.0-100.0 Comments: Vitamin D deficiency has been defined by the Wiley ofMedicine and an Endocrine Society practice guideline as alevel of serum 25-OH vitamin D less than 20 ng/mL (1,2).The Endocrine Society went on to further define vitamin Dinsufficiency as a level between 21 and 29 ng/mL (2).1. IOM (Wiley of Medicine). 2010. Dietary reference intakes for calcium and D. [place]: The National Academies Press.2. Candelaria MF, Janey ELIAS, Yolande GROSS, et al. Evaluation, treatment, and prevention of vitamin D deficiency: an Endocrine Society clinical practice guideline. JCEM. 2010; 96(7):1911-30. 6-Mta-897048:21 Ferritin (24225) Comments: PATIENT NOT FASTINGPERFORMED BY: MONA [facility] Ebjcmo[address] EverZeroFormerly [facility]in [place] [id number]; fu 10-27 db Ferritin, Serum 10 ng/mL (Abnormal) Range: 15-150 3-Tdk-297691:21 Vitamin B-12 (cyanocobalamin) Comments: PATIENT NOT FASTINGPERFORMED BY: [facility] [address] [id number] (04171) Vitamin B12 1888 pg/mL (Abnormal) Range: 211-946 2-Cey-503519:21 METABOLIC PANEL, COMPREHENSIVE Comments: PATIENT NOT FASTINGPERFORMED BY: MONA [facility] Hobsax[address] EverZeroHugh [facility] [id number] (30481) ALT (SGPT) 11 [iU]/L (Normal) Range: 0-32 [...] Glucose, Serum 101 mg/dL (Abnormal) Range: 65-99 0-Lhk-133238:21 CBC with auto diff Comments: PATIENT NOT FASTINGPERFORMED BY: MONA [facility] Yrawuk[address] [place] [id number] Information: CLIENT DRAW (24815) Immature Grans (Abs) 0.0 {x10E3/uL} (Normal) Range: [...] 3.77-5.28 WBC 5.7 {x10E3/uL} (Normal) Range: 3.4-10.8 76-Jkc-311092:14 Prothrombin Time w/INR Comments: [facility] [address] [place], [address] INR 1.9 (Normal) Comments: ADDENDA: handled by cardio PROTIME 21.0 s (Abnormal) Range: 11.7-14.9 :57 HEPATIC FUNCTION PANEL Comments: PATIENT NOT FASTINGPERFORMED BY: [facility] [id number] (84080) ALT (SGPT) 15 [iU]/L (Normal) Range: 0-32 AST (SGOT) 20 [iU]/L (Normal) Range: 0-40 Alkaline Phosphatase, S 114 [iU]/L (Normal) Range: 39-117 Bilirubin, Direct 0.10 mg/dL (Normal) Range: 0.00-0.40 Comments: Please note reference interval change Bilirubin, Total <0.2 mg/dL (Normal) Range: 0.0-1.2 Albumin, Serum 4.9 g/dL (Abnormal) Range: 3.6-4.8 Protein, Total, Serum 7.1 g/dL (Normal) Range: 6.0-8.5 :57 IGA/IGD/IGG/IGM-EACH (18030) Comments: PATIENT NOT FASTINGPERFORMED BY: [facility] [id number] Immunoglobulin E, Total 50 {IU/mL} (Normal) Range: 0-100 Immunoglobulin M, Qn, Serum 43 mg/dL (Normal) Range: 26-217 Immunoglobulin A, Qn, Serum 131 mg/dL (Normal) Range: 87-352 Immunoglobulin G, Qn, Serum 753 mg/dL (Normal) Range: 700-1600 95-Qwt-345513:57 EBV ACUTE PFOF IgG/IgM Comments: PATIENT NOT FASTINGPERFORMED BY: [facility] [id number] (47293) Interpretation: SPR (Normal) Comments: EBV Interpretation Chart [...] (LACTATE DEHYDROGENASE) Comments: PATIENT NOT FASTINGPERFORMED BY: [facility] [id number] (78433) LDH 191 [iU]/L (Normal) Range: 119-226 07-Bow-918990:57 HIV-1 & 2 ANTBDY-SNGL SHAWN Comments: PATIENT NOT FASTINGPERFORMED BY: [facility] [id number] (31243) HIV Screen 4th Generation wRfx Non Reactive (Normal) :57 HEPATITIS PANEL (31999) Comments: PATIENT NOT FASTINGPERFORMED BY: [facility] [id number] Hep C Virus Ab 0.1 {s/co_ratio} (Normal) Range: 0.0-0.9 Comments: Negative: < 0.8 Indeterminate: 0.8 - 0.9 Positive: > 0.9 . The CDC recommends that a positive HCV antibody result be followed up with a HCV Nucleic Acid Amplification test (843238). Hep B Core Ab, IgM Negative (Normal) HBsAg Screen Negative (Normal) Hep A Ab, IgM Negative (Normal) 6-Xiy-458681:56 Culture, Blood (WB) Comments: [facility] [address] [place], [place], [address] CUB See Note (Normal) Comments: BCNo growth in 5 days. 1-Bon-440540:56 EBV Acute Prof IgG / IgM Comments: [facility] (refer to report for specific site)refer to report for address and phone number INTERPRETATION Comment (Normal) Comments: EBV Interpretation ChartInterpretation EBV-IgM EA(D)-IgG VCA-IgG EBNA-IgGEBV Seronegative - - - -Early Phase + - - -Acute Primary + +or- + -InfectionConvalescence/Past - +or- + +InfectionReactivated +or- + + +Infection + Antibody Present - Antibody Ab sentPerformed at: [address] [id number] Director: Neo Campos PhD, Phone: [phone] EB-NAg [id number] 136.0 U/mL (Abnormal) Range: 0.0-17.9 Comments: Negative <18.0 Equivocal 18.0 - 21.9 Positive >21.9 EB-VCA [id number] 255.0 U/mL (Abnormal) Range: 0.0-17.9 Comments: Negative <18.0 Equivocal 18.0 - 21.9 Positive >21.9 EB-EA IgG 61186 18.4 U/mL (Abnormal) Range: 0.0-8.9 Comments: Hepatitis A, Hepatitis C and HIV antibodies may cross-reactwith this assay. Negative < 9.0 Equivocal 9.0 - 10.9 Positive >10.9 EB-VCA [id number] 36.1 U/mL (Abnormal) Range: 0.0-35.9 Comments: A second sample should be collected and tested no less than2-4 weeks. Negative <36.0 Equivocal 36.0 - 43.9 Positive >43.9 0-Fqv-498803:56 Ferritin Comments: [facility] [address] [place], [address] FERRITIN 34 ng/mL (Normal) Range: 8-252 7-Fvp-184815:56 Vitamin D,25 Hydroxy Comments: [facility] [address] [place], [address] Vitamin D 25-OH 29.2 ng/mL (Normal) Comments: Vitamin D 25(OH) Status Range Deficiency <20 ng/mL (50nmol/L) Insuffciency 20 - 30 ng/mL (50 - 75 nmol/L) Sufficiency 30 - 100 ng/mL (75 - 250 nmol/L) Toxicity >100 ng/mL (>250 nmol/L) 3-Koj-275790:03 INR Fingerstick Comments: [place] [address] [place] [address] INR ISTAT 1.00 (Normal) Comments: Critical Value > 3.5 6-Wgy-316244:03 Prothrombin Time Fingerstick Comments: [place] [address] [place] [address] PROTIME ISTAT 12.1 {SEC} (Normal) Range: 11.9-14.4 Comments: Reference Range 11.9 - 14.4 28-Kku-610860:55 Prothrombin Time w/INR Comments: [place] [address] [place], [address] INR 2.6 (Normal) PROTIME 26.7 s (Abnormal) Range: 11.7-14.9 :44 GRETTA CULTURE-OTHER (08506) Comments: PATIENT NOT FASTINGPERFORMED BY: [facility] [id number] Information: THROAT SRC:TH Result 1 RRF (Normal) Comments: Routine respiratory rajwinder Upper Respiratory Culture Final report (Normal) 25-Xix-091695:31 Rapid Flu (06269 x 2) Influenza A Ag negative (Normal) 48-Zsl-418826:31 Rapid Strep Test, Office (31815) Rapid Strep Test, Office Negative (Normal) 87-Bnv-195718:46 Microscopic Examination Comments: PATIENT NOT FASTINGPERFORMED BY: [facility] Lgcwqm6051 Selexagen TherapeuticsHugh [facility] [id number] Bacteria Few (Normal) Mucus Threads Present (Normal) Crystal Type Calcium Oxalate (Normal) Crystals Present (Abnormal) Epithelial Cells (non renal) 0-10 {/hpf} (Normal) Range: 0 - 10 RBC 0-2 {/hpf} (Normal) Range: 0 - 2 WBC 0-5 {/hpf} (Normal) Range: 0 - 5 23-Svh-730035:46 URINALYSIS (35795) Comments: PATIENT NOT FASTINGPERFORMED BY: U4EA NetworksNew Bridge Medical CenterRdiwoq[address] [id number] Microscopic Examination See below: (Normal) Comments: Microscopic was indicated and was performed. Nitrite, Urine Negative (Normal) Urobilinogen,Semi-Qn 1.0 mg/dL (Normal) Range: 0.2-1.0 Bilirubin Negative (Normal) Occult Blood Negative (Normal) Ketones Negative (Normal) Glucose Negative (Normal) Protein Negative (Normal) WBC Esterase 1+ (Abnormal) Appearance Clear (Normal) Urine-Color Yellow (Normal) pH 6.0 (Normal) Range: 5.0-7.5 Specific Republic 1.018 (Normal) Range: 1.005-1.030 80-Gjq-047756:46 CBC WITH MANUAL DIFF (18947) Comments: PATIENT NOT FASTINGPERFORMED BY: U4EA NetworksNew Bridge Medical CenterQpzgmu6461 [address] [id number] Immature Grans (Abs) 0.0 {x10E3/uL} (Normal) Range: [...] 3.77-5.28 WBC 4.5 {x10E3/uL} (Normal) Range: 3.4-10.8 91-Jgt-055208:46 Ferritin (34343) Comments: PATIENT NOT FASTINGPERFORMED BY: SoNetJobNew Bridge Medical CenterLndklt[address] [id number] Ferritin, Serum 10 ng/mL (Abnormal) Range: 15-150 21-Fsv-251303:46 Metabolic Panel, Comprehensive Comments: PATIENT NOT FASTINGPERFORMED BY: AffinegyCoNew Bridge Medical CenterAstbbo3598 [address] [id number] (68403) ALT (SGPT) 18 [iU]/L (Normal) Range: 0-32 [...] Glucose, Serum 86 mg/dL (Normal) Range: 65-99 80-Wyc-807640:46 AMYLASE (95549) Comments: PATIENT NOT FASTINGPERFORMED BY: LabCoNew Bridge Medical CenterPrdxtr9[address] [id number] Amylase, Serum 81 U/L (Normal) Range: 31-124 76-Wsh-497352:46 LIPASE (65719) Comments: PATIENT NOT FASTINGPERFORMED BY: LabCoNew Bridge Medical CenterTsygnm2948 [facility] [address] [id number] Lipase, Serum 79 U/L (Abnormal) Range: 0-59 11-Tph-783926:33 Prothrombin Time w/INR Comments: Order Date: 03/23/16Order Date: 03/23/16Interface Comments: Reason:Order Date: 03/23/16[facility] [address] [place], [place], [address] INR 2.0 (Normal) PROTIME 22.3 s (Abnormal) Range: 11.7-14.9 89-Xbg-310645:36 Prothrombin Time w/INR Comments: [facility] [address] [place], [place], [address] INR 1.4 (Normal) PROTIME 17.1 s (Abnormal) Range: 11.7-14.9 94-Mtn-852056:20 Prothrombin Time w/INR Comments: Order Date: 05/11/16Order Info: 6301-6 - *PT/INR - Standing OrderComments: Standing Order-Reason:Order Date: 05/11/16Order Info: 6301-6 - *PT/INR - Standing OrderComments: Standing Order- Reason:[facility] [address] [place], [place], [address] INR 1.2 (Normal) PROTIME 14.8 s (Normal) Range: 11.7-14.9 6-Btc-348259:50 Prothrombin Time w/INR Comments: Order Date: 05/11/16Order Info: 6301-6 - *PT/INR - Standing OrderComments: Standing Order-Reason:Order Date: 05/11/16Order Info: 6301-6 - *PT/INR - Standing OrderComments: Standing Order-Reason:Order Da te: 05/11/16Order Info: 6301-6 - *PT/INR - Standing OrderComments: Standing Order-Reason:[facility] [facility] Bspxrkhrrt7066 [address]. [place], [place], [address] INR 1.2 (Normal) PROTIME 15.1 s (Abnormal) Range: 11.7-14.9 :00 Culture, Nose Comments: [facility] Esdqaqsbqh6968 [address] [place], [place], [address] CUN See Note (Normal) Comments: Comments: NARESGram StainGram Stain Rare White Blood Cells 1+ Epithelial cells 4+ Gram positive rods Nasoph. CultNo Haemophilus, Streptococcus pneumoniae, beta-hemolytic Streptococcus or Staphylococcus aureus isolated. :00 Culture, Throat Comments: [facility] Jphycpoqee5638 [address] [place], [place], [address] CUT See Note (Normal) Comments: Comments: NARESCulture, ThroatNo Haemophilus, Streptococcus pneumoniae, beta-hemolytic Streptococcus or Staphylococcus aureus isolated. 20-Tzd-373059:05 Rapid Flu (11266 x 2) Influenza A Ag neg (Normal) :45 CBC W/Diff, Automated Comments: Order Date: 03/18/16[facility] Date: [facility] Qmvgvaiinm4079 [address] [place], [place], [address] Absolute Lymph 2.95 {X10_3/ul} (Normal) Range: 0.83-4.51 [...] 1'CKMB' Serial Specimen #1, #2 or #3? 1[facility] Shiymesubd5390 [place], [address] CKRI 3.2 % (Abnormal) Range: 0.0-1.4 Comments: RELATIVE INDEX >1.5% IS PRESUMPTIVELY POSITIVE CPKMB 1.8 ng/mL (Normal) Range: 0.0-5.0 Comments: CK-MB and RI Interpretation MB Relative Index Non-AMI <or= 5 NA Indeterminate > 5 <or= 4 AMI > 5 > 4 CPK TOTAL 57 U/L (Normal) Range: 26-192 :45 Erythrocyte Sed Rate Comments: Order Date: 03/18/16Order Date: 03/18/16[facility] Nmtzbkcbqz9878 Camilo Garcia [place], [id number] SED RATE 1 mm/h (Normal) Range: 0-30 :45 Myoglobin, Serum Comments: Order Date: 03/18/16[facility] (refer to report for specific site)refer to report for address and phone number Myoglobin, Ser 23 ng/mL (Abnormal) Range: 25-58 Comments: Performed at: - [facility] [id number] Director: Neo Campos PhD, Phone: [phone] 73-Ciq-684516:45 Troponin-I Comments: Order Date: 03/18/16TROP ADDED 03/19/16Order Date: 03/18/16'TROP' Serial specimen #1, #2, #3, or #4: 1'CKMB' Serial Specimen #1, #2 or #3? [address] [place] [address] Svafgpvgkc9482 Camilo Garcia [place], [id number] TROPONIN-I < 0.02 ng/mL (Normal) Comments: TROPONIN-I EXPECTED VALUES <0.05 NEGATIVE 0.06 - 0.59 AT RISK OF FL > OR = 0.60 SUGGEST FL 20-Qet-191199:00 Basic Metabolic Profile (BMP) Comments: 'TROP' Serial specimen #1, #2, #3, or #4: [address] [place] [address] Lnyxligkmc8177 Camilo Garcia [place], [id number] GAP 6 (Normal) Range: 5-15 CO2 26.0 [...] Range: 70-110 :00 CBC W/Diff, Automated Comments: [facility] Hwicigzhds9283 [place], [address] Absolute Lymph 2.27 {X10_3/ul} (Normal) Range: 0.83-4.51 [...] 4.2-5.4 WBC 4.9 K/mm3 (Normal) Range: 4.4-11.0 18-Iaq-315423:00 Lipase Comments: 'TROP' Serial specimen #1, #2, #3, or #4: [address] [place] [address] Julaumryke1627 [place], [address] LIPASE 351 U/L (Normal) Range: 73-393 01-Gzk-457076:00 Liver Profile Comments: 'TROP' Serial specimen #1, #2, #3, or #4: [address] [place] [address] Aftcgutbnq5655 [place], [address] D BILI 0.15 mg/dL (Normal) Range: 0.00-0.30 T BILI 0.30 mg/dL (Normal) Range: 0.20-1.00 ALT 23 U/L (Normal) Range: 12-78 ALK P 81 U/L (Normal) Range: 50-136 AST 24 U/L (Normal) Range: 15-37 GLOB 2.8 g/dL (Normal) Range: 2.3-3.5 ALB 4.0 g/dL (Normal) Range: 3.4-5.0 T PROT 6.8 g/dL (Normal) Range: 6.4-8.2 26-Izl-476051:00 Troponin-I Comments: 'TROP' Serial specimen #1, #2, #3, or #4: [address] [place] [address] Zgwobxhkjq1811 [place], [address] TROPONIN-I < 0.02 ng/mL (Normal) Comments: TROPONIN-I EXPECTED VALUES <0.05 NEGATIVE 0.06 - 0.59 AT RISK OF FL > OR = 0.60 SUGGEST FL 14-Pwl-110706:08 Osmolality, Urine Comments: Order Date: 02/16/16Has pt arrived? [facility] Itinqjdxgf1362 [place], [address] OSMOLALITY,UR 310 {mOsm/KG} (Normal) Comments: OSMOLALITY URINE REFERENCE INTERVALS 24-hour Urine 300 - 900 mOsm/kg Random Urine 50 - 1400 mOsm/kg After 12 Hr fluid restriction >850 mOsm/kg 51-Cot-569378:50 Amylase Comments: [facility] Zxboyilgxd3483 [address] [place], [place], [id number] PREMA 80 U/L (Normal) Range: 25-115 53-Bxy-829447:50 CBC W/Diff, Automated Comments: [facility] Is[address] [place], [address] Absolute Lymph 1.51 {X10_3/ul} (Normal) Range: [...] 4.2-5.4 WBC 4.3 K/mm3 (Abnormal) Range: 4.4-11.0 40-Ljz-419727:50 Comprehensive Metabolic Profil Comments: [facility] Dqwibpzqeq4519 [address] [place], [id number] GAP 6 (Normal) Range: 5-15 CO2 28.0 [...] 7-18 GLU 98 mg/dL (Normal) Range: 70-110 95-Lrz-773207:50 Lipase Comments: [facility] Uujwmsmoya8135 [address]. [place], [place], [address] LIPASE 424 U/L (Abnormal) Range: 73-393 71-Omm-410793:50 Osmolality, Serum Comments: [facility] Hivuhkorlm8076 [address] [place], [place], [address] OSMOLALITY,SER 275 {mOsm/KG} (Normal) Range: 275-295 28-Hre-411226:50 Vitamin B12 489 pg/mL (Normal) Comments: [facility] Yuadfnycgl4098 [address] [place], [place], [address] ; will review on 02/19 Range: 211-911 94-Thg-369777:50 Vitamin D,25 Hydroxy Comments: [facility] Fypmomkaza5514 BRITT[place], [address] Vitamin D 25-OH 37.6 ng/mL (Normal) Comments: Vitamin D 25(OH) Status Range Deficiency <20 ng/mL (50nmol/L) Insuffciency 20 - 30 ng/mL (50 - 75 nmol/L) Sufficiency 30 - 100 ng/mL (75 - 250 nmol/L) Toxicity >100 ng/mL (>250 nmol/L) 87-Lfd-24173:00 Ferritin Comments: [facility] Qciloqsezg2097 [place], [address] FERRITIN 13 ng/mL (Normal) Range: 8-252 09-Xop-63989:00 Lipid Profile Comments: [facility] Trmqifdfkb8634 [place], [address] VLDL 28 mg/dL (Normal) Range: 5-40 [...] 200-240 mg/dL Borderline >240 mg/dL High Risk 1-Qzd-877976:40 CBC W/Diff, Automated Comments: Order Date: 09/08/15Has pt arrived? [facility] Hadpjzwbzs0636 BR[place], [address] Absolute Lymph 1.80 {X10_3/ul} [...] 4.2-5.4 WBC 4.4 K/mm3 (Normal) Range: 4.4-11.0 7-Cng-378971:40 Comprehensive Metabolic Profil Comments: Order Date: 09/08/15Has pt arrived? [facility] Cstjnhvdah9803 [facility] [place], [place], [address] GAP -1 (Abnormal) Range: 5-15 CO2 30.0 [...] 7-18 GLU 97 mg/dL (Normal) Range: 70-110 5-Pge-936526:16 Amylase Comments: [facility] Fibtsqemus3369 [place], [address] PREMA 95 U/L (Normal) Range: 25-115 1-Pyd-740383:16 Lipase Comments: [facility] Dymcpqxwlo0615 [facility] [place], [address] LIPASE 568 U/L (Abnormal) Range: 73-393 0-Nyz-292415:29 Influenza A&B Viral Comments: PATIENT NOT FASTINGPERFORMED BY: [employer] [facility] [id number] Information: SRC:NOS [id number] Culture (34549) Viral Culture,Rapid,Influenza FLUABN (Normal) Comments: Negative:No Influenza A or B detected. 1-Gdk-738965:49 Rapid Flu (30575 x 2) Influenza A Ag neg (Normal) 40-Kht-186587:01 CBC (Auto) (31726) Comments: now and in six months (approximately); PATIENT WAS FASTINGPERFORMED BY: [facility] [facility] [id number] Information: [id number], [id number] Platelets 357 {x10E3/uL} (Normal) Range: 150-379 RDW 14.6 % (Normal) Range: 12.3-15.4 MCHC 34.1 g/dL (Normal) Range: 31.5-35.7 MCH 29.8 pg (Normal) Range: 26.6-33.0 MCV 88 fL (Normal) Range: 79-97 Hematocrit 37.0 % (Normal) Range: 34.0-46.6 Hemoglobin 12.6 g/dL (Normal) Range: 11.1-15.9 RBC 4.23 {x10E6/uL} (Normal) Range: 3.77-5.28 WBC 5.7 {x10E3/uL} (Normal) Range: 3.4-10.8 66-Zsk-226869:01 Metabolic Panel, Basic Comments: now; PATIENT WAS FASTINGPERFORMED BY: [employer] [place] [id number] (79440) Calcium, Serum 9.1 mg/dL (Normal) Range: 8.7-10.2 [...] Glucose, Serum 102 mg/dL (Abnormal) Range: 65-99 03-Ieb-889633:01 CALCIFIDIOL (24086) VIT D 25 Comments: now and in six months (approximately); PATIENT WAS FASTINGPERFORMED BY: [employer] [place] [id number] Vitamin D, 25-Hydroxy 32.8 ng/mL (Normal) Range: 30.0-100.0 Comments: Vitamin D deficiency has been defined by the Wiley ofMedicine and an Endocrine Society practice guideline as alevel of serum 25-OH vitamin D less than 20 ng/mL (1,2).The Endocrine Society went on to further define vitamin Dinsufficiency as a level between 21 and 29 ng/mL (2).1. IOM (Wiley of Medicine). 2010. Dietary reference intakes for calcium and D. [place]: The National Academies Press.2. Candelaria MF, Janey ELIAS, Yolande GROSS, et al. Evaluation, treatment, and prevention of vitamin D deficiency: an Endocrine Society clinical practice guideline. JCEM. 2010; 96(7):1911-30. 2-Tmd-621791:06 Sputum Culture (32687) Comments: PATIENT NOT FASTINGPERFORMED BY: [employer] John HospitalKyma TechnologiesCritical access hospital [id number] Information: [id number] Result 1 RRF (Normal) Comments: Routine respiratory rajwinder Lower Respiratory Culture Final report (Normal) 7-Pdh-845556:12 Rapid Flu (38321 x 2) Influenza A Ag neg a and b (Normal) 27-Fsb-882322:01 Urinalysis, Office (47981) UA - LEUKOCYTE ESTERASE Negative (Normal) UA - NITRITE Negative (Normal) URINE UROBILINGN YANCI TIMED Normal mg/dL (Normal) UA - PROTEIN Negative mg/dL (Normal) UA - PH 6.0 (Normal) Comments: 5.5 UA - BLOOD Negative (Normal) UA - SPECIFIC GRAVITY 1.025 (Normal) UA - KETONES Negative mg/dL (Normal) UA - BILIRUBIN Negative (Normal) UA - GLUCOSE Negative (Normal) 77-Jzf-113058:40 Lipase (60187) Comments: PATIENT NOT FASTINGPERFORMED BY: [facility] Fqcvhh4664 [facility] CanadaCritical access hospital [id number] Lipase, Serum 113 U/L (Abnormal) Range: 0-59 79-Jtj-056974:40 Amylase (66728) Comments: PATIENT NOT FASTINGPERFORMED BY: [employer] [facility] Jljrte6768 [facility] CanadaCritical access hospital [id number] Information: [id number] Amylase, Serum 104 U/L (Normal) Range: 31-124 2-Dpx-538376:54 Sputum Culture (32329) Comments: PATIENT NOT FASTINGPERFORMED BY: MONA [facility] Ofbofm5535 Vila RoadDublin [place] [id number] Information: SRC: THROAT [id number] Result 1 RRF (Normal) Comments: Routine respiratory rajwinder Lower Respiratory Culture Final report (Normal) 9-Rqb-280707:55 Pathology Report Comments: PERFORMED BY: KWCYT [facility] [place] [employer] Pkuxw41935 [employer] [facility] [id number] BY: [facility] Dermatopathology Wtqsszh[address] [id number] Information: [id number] See MATER Comments: Material submitted: .PUNCH BIOPSY [...] IS NEGATIVE FOR FUNGAL FORMS.Pathologist provided ICD-9:692.9CPT .120017, 607308 63-Exo-507295:41 Lipid Panel (81357) Comments: PATIENT WAS FASTINGPERFORMED BY: LabCoNew Bridge Medical CenterYedugz0064 [facility] [id number] LDL/HDL Ratio 1.0 {ratio_units} (Normal) Range: 0.0-3.2 [...] - 169 >19 years 100 - 199 41-Ust-824186:41 Metabolic Panel, Comments: PATIENT WAS FASTINGPERFORMED BY: PhoneJoy SolutionsHugh [facility] [id number] Information: [id number] Comprehensive (60003) ALT (SGPT) 13 [iU]/L (Normal) Range: 0-32 [...] Glucose, Serum 97 mg/dL (Normal) Range: 65-99 56-Duk-517858:41 Vitamin B-12 (cyanocobalamin) Comments: PATIENT WAS FASTINGPERFORMED BY: KEM[employer] Truckingbl[place] [id number] (85740) Vitamin B12 632 pg/mL (Normal) Range: 211-946 :41 CBC (Auto) (58892) Comments: PATIENT WAS FASTINGPERFORMED BY: [facility] [facility] [id number] Platelets 270 {x10E3/uL} (Normal) Range: 150-379 RDW 13.9 % (Normal) Range: 12.3-15.4 MCHC 32.8 g/dL (Normal) Range: 31.5-35.7 MCH 29.5 pg (Normal) Range: 26.6-33.0 MCV 90 fL (Normal) Range: 79-97 Hematocrit 36.6 % (Normal) Range: 34.0-46.6 Hemoglobin 12.0 g/dL (Normal) Range: 11.1-15.9 RBC 4.07 {x10E6/uL} (Normal) Range: 3.77-5.28 WBC 8.5 {x10E3/uL} (Normal) Range: 3.4-10.8 :41 Ferritin (77589) Comments: PATIENT WAS FASTINGPERFORMED BY: LabCorewell [facility] [facility] [id number] Ferritin, Serum 28 ng/mL (Normal) Range: 15-150 :41 CALCIFIDIOL (16916) VIT D 25 Comments: PATIENT WAS FASTINGPERFORMED BY: LabCorewell [facility] [facility] [id number] Vitamin D, 25-Hydroxy 24.3 ng/mL (Abnormal) Range: 30.0-100.0 Comments: Vitamin D deficiency has been defined by the Wiley ofMedicine and an Endocrine Society practice guideline as alevel of serum 25-OH vitamin D less than 20 ng/mL (1,2).The Endocrine Society went on to further define vitamin Dinsufficiency as a level between 21 and 29 ng/mL (2).1. IOM (Wiley of Medicine). 2010. Dietary reference intakes for calcium and D. [place]: The National Academies Press.2. Candelaria MF, Janey ELIAS, Yolande GROSS et al. Evaluation, treatment, and prevention of vitamin D deficiency: an Endocrine Society clinical practice guideline. JCEM. 2010; 96(7):1911-30. :55 CBC-Complete Blood Cnt No Diff Comments: Test performed at:[place] [address] [place] [address] MPV 9.5 fL (Normal) Range: 6.2-12.0 PLT [...] Range: 4.4-11.0 :55 Ferritin Comments: Test performed at:[facility] [address] [place] [address] [place] [address] FERRITIN 23 ng/mL (Normal) Range: 8-252 :55 Iron Comments: Test performed at:[facility] Nurs[address]bzd[address] [place] [address] IRON 75 ug/dL (Normal) Range: 50-170 :53 CBC W/Diff, Automated Comments: Test performed at:[facility] Pdeitphpfx[address] [place] [address] Absolute Lymph 1.57 {X10_3/ul} (Normal) Range: 0.83-4.51 [...] 4.2-5.4 WBC 3.8 K/mm3 (Abnormal) Range: 4.4-11.0 16-Xci-060580:53 Comprehensive Metabolic Profil Comments: Test performed at:[facility] Kajifnetwy2626 [place] [address] GAP 5 (Normal) Range: 5-15 CO2 29.0 [...] 7-18 GLU 99 mg/dL (Normal) Range: 70-110 28-Hdv-465020:53 Ferritin Comments: Test performed at:[facility] Apcvksiqmj2618 [place] [address] FERRITIN 13 ng/mL (Normal) Range: 8-252 :53 Lipid Profile Comments: Test performed at:[facility] Rvklfwvfzb9184 [place] [address] VLDL 19 mg/dL (Normal) Range: [...] > 2000 pg/mL (Abnormal) Comments: Test performed at:[facility] Pfudkvybij[address]506 [place] [address] Range: 211-911 54-Kwd-538034:46 CBC W/Diff, Automated Comments: Test performed at:[facility] Zvmvtiyxyh3751 [place] [address] Absolute Lymph 1.87 {X10_3/ul} (Normal) [...] 4.2-5.4 WBC 4.1 K/mm3 (Abnormal) Range: 4.4-11.0 32-Cwc-175352:46 Comprehensive Metabolic Profil Comments: Test performed at:[facility] Pdbzxeynvm5945 [address] [place], [place] [address] GAP 4 (Abnormal) Range: 5-15 CO2 28.0 [...] 7-18 GLU 70 mg/dL (Normal) Range: 70-110 50-Teq-220126:46 Vitamin D,25 Hydroxy Comments: Test performed at:[facility] Zajtovnckh2670 [place] [address] Vitamin D 25-OH 30.6 ng/mL (Normal) Comments: Vitamin D 25(OH) Status Range Deficiency <20 ng/mL (50nmol/L) Insuffciency 20 - 30 ng/mL (50 - 75 nmol/L) Sufficiency 30 - 100 ng/mL (75 - 250 nmol/L) Toxicity >100 ng/mL (>250 nmol/L) 12-Xqv-569102:04 CALCIFIDIOL (60746) VIT D Comments: PATIENT NOT FASTINGPERFORMED BY: [facility] Eyyggx2262 [facility] [id number] Information: [id number] Vitamin D, 25-Hydroxy 19.2 ng/mL (Abnormal) Range: 30.0-100.0 Comments: Vitamin D deficiency has been defined by the Wiley ofMedicine and an Endocrine Society practice guideline as alevel of serum 25-OH vitamin D less than 20 ng/mL (1,2).The Endocrine Society went on to further define vitamin Dinsufficiency as a level between 21 and 29 ng/mL (2).1. IOM (Wiley of Medicine). 2010. Dietary reference intakes for calcium and D. [place]: The National Academies Press.2. Candelaria MF, Janey ELIAS, Yolande GROSS, et al. Evaluation, treatment, and prevention of vitamin D deficiency: an Endocrine Society clinical practice guideline. JCEM. 2010; 96(7):1911-30. 37-Tmy-538861:04 Ferritin (70959) Comments: PATIENT NOT FASTINGPERFORMED BY: LabCoSoFiGkfgfj0038 [employer] [facility] [id number] Ferritin, Serum 34 ng/mL (Normal) Range: 15-150 30-Hef-560962:05 METABOLIC PANEL, COMPREHENSIVE Comments: PATIENT NOT FASTINGPERFORMED BY: [employer] [facility] Bzfnxq0045 Selexagen TherapeuticsHugh [facility] [id number] (10917) ALT (SGPT) 10 [iU]/L (Normal) Range: 0-32 [...] Glucose, Serum 86 mg/dL (Normal) Range: 65-99 21-Cyv-643363:05 CBC WITH MANUAL DIFF Comments: PATIENT NOT FASTINGPERFORMED BY: MONA SoNetJobNew Bridge Medical CenterMjkavv6[address] [facility] [id number] Information: [id number],2ND ORDER NO DRAW F EE (85182) Immature Grans (Abs) 0.0 {x10E3/uL} (Normal) Range: [...] 3.77-5.28 WBC 5.2 {x10E3/uL} (Normal) Range: 3.4-10.8 22-Irk-977772:05 CALCIFIDIOL (73628) VIT D 25 Comments: PATIENT NOT FASTINGPERFORMED BY: AffinegyCorewell Health [facility] [facility] [id number] Vitamin D, 25-Hydroxy 19.6 ng/mL (Abnormal) Range: 30.0-100.0 Comments: Vitamin D deficiency has been defined by the Wiley ofMedicine and an Endocrine Society practice guideline as alevel of serum 25-OH vitamin D less than 20 ng/mL (1,2).The Endocrine Society went on to further define vitamin Dinsufficiency as a level between 21 and 29 ng/mL (2).1. IOM (Wiley of Medicine). 2010. Dietary reference intakes for [...] CHOL 168 mg/dL (Normal) Comments: <200 mg/dL Jcuiftfgy002-800 mg/dL Borderline>240 mg/dL High Risk 8-Crn-245880:51 VITD 38.8 mg/mL (Normal) Comments: Vitamin D 25(OH) Status RangeDeficiency <20 ng/mL (50nmol/L)Insuffciency 20 - 30 ng/mL (50 - 75 nmol/L)Sufficiency 30 - 100 ng/mL (75 - 250 nmol/L)Toxicity >100 ng/mL (>250 nmol/L) 82-Klh-589420:07 Lipase (81595) Comments: PERFORMED BY: KEMOJO TruckingCritical access hospital [id number] Lipase, Serum 67 U/L (Abnormal) Range: 0-59 35-Pkl-998200:07 Amylase (42594) Comments: PERFORMED BY: KEMOJO TruckingCritical access hospital [id number] Amylase, Serum 92 U/L (Normal) Range: 31-124 66-Vcj-362048:11 Urinalysis, Office (78298) UA - LEUKOCYTE ESTERASE Negative (Normal) UA - NITRITE Negative (Normal) URINE UROBILINGN YANCI TIMED Normal mg/dL (Normal) UA - PROTEIN Negative mg/dL (Normal) UA - PH 5 (Abnormal) Comments: 5.5 UA - BLOOD Negative (Normal) UA - SPECIFIC GRAVITY 1.015 (Normal) UA - KETONES 15 mg/dL (Abnormal) UA - BILIRUBIN Small (Normal) UA - GLUCOSE Negative (Normal) 96-Slr-527954:28 GRETTA CULTURE-OTHER (02035) Comments: PATIENT NOT FASTINGPERFORMED BY: [employer] LabCoV[facility] [id number] Information: SRC:THRT [id number] Result 1 RRF (Normal) Comments: Routine respiratory rajwinder Upper Respiratory Culture Final report (Normal) 33-Xfn-250002:32 Rapid Strep Test, Office (25496) Rapid Strep Test, Office Negative (Normal) 86-Rop-730453:02 Iron Binding Capacity Comments: PATIENT NOT FASTINGPERFORMED BY: LabCoNew Bridge Medical CenterLejucy9928 [facility] [id number] Information: [id number] (TIBC) (03403) Iron Saturation 6 % (Abnormal) Range: 15-55 Iron, Serum 32 ug/dL (Abnormal) Range: 35-155 UIBC 461 ug/dL (Abnormal) Range: 150-375 Iron Bind.Cap.(TIBC) 493 ug/dL (Abnormal) Range: 250-450 04-Qbk-648239:02 Ferritin (48311) Comments: PATIENT NOT FASTINGPERFORMED BY: LabCoNew Bridge Medical CenterExwvim0759 [facility] [id number] Ferritin, Serum 7 ng/mL (Abnormal) Range: 15-150 :19 PREMA 80 U/L (Normal) Range: 25-115 9-Nem-537789:19 B12 386 pg/mL (Normal) Range: 211-911 :19 [...] CHOL 181 mg/dL (Normal) Comments: <200 mg/dL Qmkpyriic916-022 mg/dL Borderline>240 mg/dL High Risk :19 VITD [...] 7-18 GLU 79 mg/dL (Normal) Range: 70-110 05-Jht-841251:18 TS Ab SCREEN GEL NEGATIVE (Normal) SCREEN CELL I NEGATIVE (Normal) SCREEN CELL II NEGATIVE (Normal) SCREEN CELL III NEGATIVE (Normal) BLOOD TYPE GEL O POSITIVE (Normal) 65-Cuh-180513:17 Metabolic Panel, Comments: PATIENT NOT FASTINGPERFORMED BY: MONA [facility] Tbrcpw8173 [address] [place] [id number] Information: [id number] [facility] (72515) ALT (SGPT) 13 [iU]/L (Normal) Range: 0-32 [...] :41 PREMA 80 U/L (Normal) Range: 25-115 58-Hnk-987460:41 CBCD ABSOLUTE NEUT 3.9 3/uL (Normal) Range: [...] s (Normal) Range: 11.9-14.4 :41 VIT D,25 11398 20.3 ng/mL (Abnormal) Range: 30.0-100.0 Comments: Vitamin D deficiency has been defined by the Wiley ofMedicine and an Endocrine Society practice guideline as alevel of serum 25-OH vitamin D less than 20 ng/mL (1,2).The Endocrine Society went on to further define vitamin Dinsufficiency as a level between 21 and 29 ng/mL (2).1. IOM (Wiley of Medicine). 2010. Dietary reference intakes for calcium and D. Lal [place]: The National Academies Press.2. Candelaria MF, Janey NC, Yolande GROSS, et al. Evaluation, treatment, and prevention of vitamin D deficiency: an Endocrine Society clinical practice guideline. JCEM. 2010; 96(7): 1911-30.Performed at: [address] [id number] Director: Yony San MD, Phone: [phone] at: [facility] LabCo[address] [id number] Director: Era Tinoco MD, Phone: [phone] VITD 1,25 33190 44.5 pg/mL (Normal) Range: 10.0-75.0 :09 PREMA [...] Please note:LIPASE revised reference range effective 09. 24-Trh-112096:05 LIPID Comments: COMMENTS: FAX RESULTS TO DR [...] 200-240 mg/dL Borderline >240 mg/dL High Risk 05-Bbc-311478:54 BILAT SCRN DIGITAL & CAD Radiology Report [...] 11/20/10 011 Sign by: Bartolome Patel MD 49-Heo-347709:54 DEXA BONE DENSITY STUDY (HP) Radiology Report See Note (Normal) Comments: CLINICAL:Female, 55 years old. The patient is postmenopausal. EXAMINATION:DUAL ENERGY X-RAY ABSORPTIOMETRY / DEXA. TECHNIQUE:Bone Mineral Density (BMD) measurements of lumbar spine and bila teralhipswer e obtained using a iKaaz scanner.. COMPARISON:Comparison is made with prior study [...] on 11/20/1030 Sign by: Bartolome Patel MD 8-Qko-392484:46 DESIRAE DIR SEMI-QL Comments: ORDERED CBC LUZ MARINA FEDRCOREY ORDERED CMP CBCD CRP ESR VITD HEPB SURF AB CCPHEPB IRINA AG HEPC DESIRAE RA HEPB CORE IGM UAC SCL70 ANTOINE ANTI JOANTICENT AB SSA SSB DNA UAPROTEIN C3 C4 TSH DESIRAE DIRECT 56 AU/mL (Normal) 3-Pvw-408079:46 ANEX PANEL Comments: ORDERED CBC LUZ MARINA FEDRCOREY ORDERED CMP CBCD CRP ESR VITD HEPB SURF AB CCPHEPB IRINA AG HEPC DESIRAE RA HEPB CORE IGM UAC SCL70 ANTOINE ANTI JOANTICENT AB SSA SSB DNA UAPROTEIN C3 C4 TSH; appt 11/02/10 [employer]ANCH EMPLOYMENT COORDINATOR AB 14 AU/mL (Normal) ANTI-TORRES AB 7 AU/mL (Normal) 3-Jwm-038634:46 ANTI JO1 Comments: ORDERED CBC LUZ MARINA FEDRCOREY ORDERED CMP CBCD CRP ESR VITD HEPB SURF AB CCP[facility]PB [facility] AG HEPC DESIRAE RA HEPB CORE IGM UAC SCL70 ANTOINE ANTI JOANTICENT AB SSA SSB DNA UAPROTEIN C3 C4 TSH ANTI LAMAR 7 AU/mL (Normal) [id number] ANTI SCL 70 Comments: ORDERED CBC LUZ MARINA FEDRCOREY ORDERED CMP CBCD CRP ESR VITD HEPB SURF AB CCP[facility] AG HEPC DESIRAE RA HEPB CORE IGM UAC [id number] ANTOINE ANTI JOANTICENT AB SSA SSB DNA UAPROTEIN C3 C4 TSH ANTI-SCL 70 14 AU/mL (Normal) :46 ANTI-CCP [id number] < 1 {units} (Normal) Comments: ORDERED CBC [...] 0.6-1.0 GLU 91 mg/dL (Normal) Range: 70-110 [id number] ESR Comments: ORDERED CBC LUZ MARINA RODRIGUEZ ORDERED CMP CBCD CRP ESR VITD HEPB SURF AB CCP[facility]PB [facility] AG HEPC DESIRAE RA HEPB CORE IGM UAC SCL70 ANTOINE ANTI JOANTICENT AB SSA SSB DNA UAPROTEIN C3 C4 TSH SED RATE 5 mm/h (Normal) Range: 0-30 [id number] FERRITIN 9 ng/mL (Normal) Comments: ORDERED CBC LUZ MARINA RODRIGUEZ ORDERED CMP CBCD CRP ESR VITD HEPB SURF AB CCP[facility]PB [facility] AG HEPC DESIRAE RA HEPB CORE IGM UAC SCL70 ANTOINE ANTI JOANTICENT AB SSA SSB DNA UAPROTEIN C3 C4 TSH Range: 8-252 :46 HB CORE [id number] SeeNote (Normal) Comments: ORDERED CBC LUZ MARINA FEDRCOREY ORDERED CMP CBCD CRP ESR VITD HEPB SURF AB CCPHEPB IRINA AG HEPC DESIRAE RA HEPB CORE IGM UAC SCL70 ANTOINE ANTI JOANTICENT AB SSA SSB DNA UAPROTEIN C3 C4 TSH Comments: Result: Negative Performed at: - [facility] [address] [id number] Director: Era Tinoco MD, Phone: [phone] at: - [facility] [address] [id number] Director: Yony San MD, Phone: [phone] :[phone] HBsAg 6510 Comments: ORDERED CBC LUZ [...] of antibody present. :46 HEP C AB [id number] <0.1 (Normal) Comments: ORDERED CBC LUZ MARINA [...] DNA UAPROTEIN C3 C4 TSH Range: 0.358-3.74 9-Kry-310453:46 VIT D,25 01840 9.3 ng/mL (Abnormal) Comments: ORDERED CBC LUZ MARINA MICHAEL ORDERED CMP CBCD CRP ESR VITD HEPB SURF AB CCPHEPB IRINA AG HEPC DESIRAE RA HEPB CORE IGM UAC SCL70 ANTOINE ANTI JOANTICENT AB SSA SSB DNA UAPROTEIN C3 C4 TSH Range: 32.0-100.0 Comments: Recent studies consider the lower limit of 32.0 ng/mL to jayleen threshold for optimal health.Ortiz SANCHEZ. J Nutr. 2004;135(2):317-22. 45-Pvq-419276:10 CBC Comments: COMMENTS: FAX RESULTS TO DR. [...] DRAWRESULTS FAXED 07/17/10 VLADIMIR SALAMANCA. Range: 8-252 99-Gxl-675706:10 IRON 125 ug/dL (Normal) Comments: COMMENTS: FAX RESULTS TO DR. CECI FARIAS DRAWRESULTS FAXED 07/17/10 VLADIMIR SALAMANCA. Range: 50-170 14-Emr-571879:20 CBC With Differential/Platelet Comments: PERFORMED BY: [facility] [facility] [id number] Baso (Absolute) 0.0 {x10E3/uL} (Normal) Range: 0.0-0.2 [...] 11.7-15.0 WBC 5.3 {x10E3/uL} (Normal) Range: 4.0-10.5 43-Ojm-225434:20 Comp. Metabolic Panel (14) Comments: PERFORMED BY: [facility] [facility] [address] [id number] ALT (SGPT) 18 [iU]/L (Normal) Range: 0-40 [...] Serum 14 ng/mL (Normal) Comments: PERFORMED BY: [facility] [facility] [id number] 14:20 Range: 13-150 64-Tpj-220109:20 Iron and TIBC Comments: PERFORMED BY: [facility] [id number] Iron Saturation 23 % (Normal) Range: 15-55 Iron, Serum 106 ug/dL (Normal) Range: 35-155 UIBC 361 ug/dL (Normal) Range: 150-375 Iron Bind.Cap.(TIBC) 467 ug/dL Range: 250-450 (Abnormal) 19-Beg-191096 TSH 1.760 {uIU/mL} Comments: [facility]MED [facility]: [facility] [place] [id number] :20 (Normal) Range: 0.450-4.500 C DIF TOXIN/AG See Note (Normal) Comments: PT COLLECTED SPECIMEN 12/30 @2300 :45 Comments: C. DIFF ANTIGENS NEGATIVE :45 CUL STOOL/SHIG Comments: PT COLLECTED SPECIMEN 12/30 @2300 CULTURE, STOOL See Note (Normal) Comments: COPY OF REPORT S[facility] TO [id number]. No Salmonella, Shigella or Yersinia isolated.No [...] Crytosporidium parvum,Cyclospora, or Microsporidia.__ TESTING PERFORMED AT [facility]. ORIGINAL REPORT ONFILE IN LAB CONTAINS [...] Comments: COMMENTS: IV THERAPY DRAWING Range: 25-115 65-Ykd-845564:10 LIPASE 199 U/L (Normal) Comments: COMMENTS: IV THERAPY DRAWING Range: 70-290 Comments: Please note:LIPASE revised reference range effective 09. 09-Kew-686593:10 RENAL Comments: COMMENTS: IV THERAPY DRAWING CO2 [...] (Normal) GLU 102 mg/dL (Normal) Range: 70-110 96-Eve-526215:37 OCCULT BLOOD FECES SCREEN (77862) OCCULT BLOOD FECES SCREEN negative (Normal) 32-Zzs-254523:03 CBCD,SMEAR DIFF PLT EST SeeNote (Normal) Comments: [...] 6.4-8.2 GLU 94 mg/dL (Normal) Range: 70-110 30-Mjk-412070:03 FERRITIN 12 ng/mL (Normal) Range: 8-252 :03 IRON 128 ug/dL (Normal) Range: 50-170 43-Hss-466834:03 LIPID LDL 86 mg/dL (Normal) Range: 0-130 VLDL 18 mg/dL (Normal) Range: 5-40 HDL 79 mg/dL (Normal) Comments: Reference RangeHDL <40 mg/dL Low HDL CholesterolHDL >or= 60 mg/dL High HDL Cholesterol CHOL 183 mg/dL (Normal) Comments: <200 mg/dL Hwecfuong540-584 mg/dL Borderline>240 mg/dL High Risk TRIG 88 mg/dL (Normal) Comments: Serum Triglycerides Reference IntervalNormal <150 mg/dLBorderline high 150 - 199 mg/dLHigh 200 - 499 mg/ dLVery High > or = 500 mg/dL 04-Dep-428534:03 VITAMIN B12 342 pg/mL (Normal) Range: 254-1320 10-Apr-20090:00 FLU A+B DIRECT See Note (Normal) Comments: Negative test results should be confirmed by culture. Order Rapid Viral Culture for Influenzae A+B ([id number]) if clinically indicated. INFLUENZA ANTIGEN,DIRECT Presumptive NEGATIVE for Influenza A/B Antigen (See Note) 42-Sky-331634:43 CHEST, PA AND LATERAL Radiology Report See Note (Normal) Comments: Exam Number: [id number] CLINICAL DATAInterstitial lung disease, cough. CHEST PA [...] pneumonia. Possible bronchitis. Reported By: FLORINDA CAMPOS 89-Dsy-794124:45 L/S SPINE,MIN 4 VIEWS Radiology Report See Note (Normal) Comments: Exam Number: [id number] CLINICAL PROBLEMLow back pain post fall. LUMBAR [...] and spondylosis. Reported By: AROLDO TILLMAN M.D. 73-Zfp-993644:44 KNEE,4 OR MORE VIEWS Radiology Report See Note (Normal) Comments: Exam Number: [id number] CLINICAL PROBLEMPain both knees post fall. FOUR [...] patellofemoral compartments. Reported By: AROLDO TILLMAN M.D. 55-Zdq-638969:44 KNEE,4 OR MORE VIEWS Radiology Report See Note (Normal) Comments: Exam Number: [id number] CLINICAL PROBLEMLeft knee pain status post fall. [...] Order Rapid Viral Culture for Influenzae A+B ([id number]) if clinically indicated. INFLUENZA ANTIGEN,DIRECT Presumptive NEGATIVE for Influenza A/B Antigen (See Note) 12-Sep-2008 PREMA 66 U/L (Normal) Range: 25-115 12:11 40-Nlu-124725:11 CBCD BASO% 0.2 % (Normal) Range: 0-1 [...] 4.2-5.4 WBC 4.2 K/mm3 (Abnormal) Range: 4.4-11.0 33-Ztw-286505:11 COMP METABOLIC A/G 1.2 {RATIO} (Normal) Range: [...] :11 MG 1.9 mg/dL (Normal) Range: 1.5-2.2 80-Les-086777:00 CBCD BASO% 0.3 % (Normal) Range: 0-1 [...] T PROT 6.7 g/dL (Normal) Range: 6.4-8.2 33-Msi-766719:00 METHYLM 841529 330 nmol/L (Normal) Range: 73-376 Comments: The reference range for methylmalonic acid has been set at+3sd above the mean for healthy blood bank donors. In theclinical assessment of patients with megaloblastic anemiasa cutoff of +3sd provides gre ater specificity in thediagnosis of the vitamin deficiency states, despite thesacrifice of some sensitivity.Performed At: [address] [id number] 8-Clc-338890:55 Lower Respiratory Culture Comments: Clinical Information: SRC:SP PERFORMED BY: [facility] [facility] [id number] Lower Respiratory Culture Final report (Normal) Result 1 RRF (Normal) Comments: Routine respiratory rajwinder 98-Osd-89172:3 PREMA 62 U/L (Normal) Range: 25-115 6 :36 DESIRAE-D 406833 DESIRAE-DIRECT 23 AU/mL (Normal) Range: 0-99 Comments: [...] {IU/mL} (Normal) Range: 0.0-13.9 Comments: Performed At: [address] [id number] :36 TSH 1.76 {uIU/mL} (Normal) Range: 0.34-4.82 :29 HgA1C , Office (78662) HgA1C , Office 5.5 % (Normal) Range: 4.6 - 7.1 5-Qqj-160979:29 Blood Glucose , Office (62201) Blood Glucose , Office 108 (Normal) :51 CHEST, PA AND LATERAL Radiology Report See Note (Normal) Comments: Exam Number: [id number] PA AND LATERAL CHEST HISTORY Being done [...] acute infiltrate. Reported By: JERARDO BEAULIEU M.D. 4-Rar-297209:57 Rapid Flu (21281 x 2) INFLUENZA IMMUNOASSY DIRECT OPTICAL OBSERV negative (Normal) Comments: aw 38-Eic-289194:57 LIPID CHOL 186 mg/dL (Normal) Comments: <200 [...] mg/dL VLDL 43 mg/dL (Abnormal) Range: 5-40 57-Fes-179430:57 VITAMIN B12 370 pg/mL (Normal) Range: 211-911 :57 VITD 1,25 21735 69.6 (Normal) Comments: Performed At: [address] [id number] 64-Cdg-001744:47 CHEST, PA AND LATERAL Radiology Report See Note (Normal) Comments: Exam Number: [id number] PA AND LATERAL CHEST HISTORY Being done [...] Culture Comments: Clinical Information: SRC:TH PERFORMED BY: [facility] [facility] [address] [id number] Result 1 RRF (Normal) Comments: Routine respiratory rajwinder Upper Respiratory Culture Final report (Normal) 8-Awo-827740:39 CHEST WITHOUT CONTRAST Radiology Report See Note (Normal) Comments: Exam Number: [id number] CT SCAN OF CHEST HISTORYNeoplasm of uncertain [...] PREMA 73 U/L (Normal) Range: 25-115 :01 17-Otg-560702:01 CBCD BASO% 0.3 % (Normal) Range: 0-1 [...] 11.6-14.6 WBC 4.7 K/mm3 (Normal) Range: 4.4-11.0 55-Wzq-514907:01 COMP METABOLIC A/G 1.1 {RATIO} (Normal) Range: [...] mg/dL VLDL 15 mg/dL (Normal) Range: 5-40 91-Iii-499282:40 BC No growth in 5 days. Comments: COMMENTS: ROOM 12 (Normal) 24-Jeu-798044:20 COMPLETE UA Comments: COMMENTS: ROOM 12HOLD IN [...] WBC 0 SEEN {/hpf} (Normal) Range: 0-5 22-Pwn-612586:10 BMP Comments: COMMENTS: ROOM 12 BUN 8 [...] 3.5-5.1 NA 132 mmol/L (Abnormal) Range: 136-145 31-Rns-834343:10 CBCD Comments: COMMENTS: ROOM 12 BASO% 0.2 [...] (Normal) WBC 10.6 K/mm3 (Normal) Range: 4.4-11.0 96-Tbi-991439:10 LIPASE 212 U/L (Normal) Comments: COMMENTS: ROOM 12 Range: 114-286 28-Rfs-646740:10 LIVER Comments: COMMENTS: ROOM 12 ALB 3.4 [...] 29 [iU]/L (Abnormal) Range: 30-65 :07 DESIRAE-D 380135 DESIRAE-DIRECT 24 U/mL (Normal) Range: 0-99 Comments: Negative <100 Equivocal 100 - 120 Positive >120Performed At: [facility] [place], [place] [id number] At: [address] [id number] :07 See Note (Normal) Comments: CHECK BLOOD [...] 5.8 K/mm3 (Normal) Range: 4.4-11.0 :07 HISTOPL 580720 SeeNote (Normal) Comments: Result: Negative : RA LATEX 6502 8.6 {IU/mL} (Normal) Range: 0.0-13.9 19-Nng-953142:24 CHEST, PA AND LATERAL Radiology Report See Note (Normal) Comments: Exam Number: [id number] CHEST, PA AND LATERAL HISTORYFever and cough. COMPARISONNone. FINDINGSThere is an indwelling Swms-H-Ouiykstm on the right side particularlyin the SVC. The heart, aorta, and media stinum are normal. Lungs areclear. There is no evidence of consolidation, effusion, congestion,or nodules. There are clips in the region of the esophageal hiatus. IMPRESSIONClear lungs. Reported By: AN YOUNG M.D. 63-Dfs-042790:0 BC No growth in 5 days. 0 (Normal) :5 PREMA 71 U/L (Normal) Range: 25-115 0 55-Icf-943160:5 BC No growth in 5 days. 0 [...] mm/h (Normal) Range: 0-30 :02 Urinalysis, Office (98081) Comments: ABn signed CH UA - BILIRUBIN [...] pg/mL (Abnormal) Range: 211-911 Comments: Performed At: [address] [id number] 7-Ssk-019404:00 CULTURE, THROAT See Note (Normal) Comments: Normal throat rajwinder isolated. No beta-hemolyticstreptococcus isolated. 6-Wzg-571342:52 Urinalysis, Office (24178) UA - BILIRUBIN Negative (Normal) UA - [...] and of unspecified site Planned Observations AMYLASE (64378)Indication: Chronic pancreatitis On: 96-Zdf-736797:48 Request LIPASE (75598)Indication: Chronic pancreatitis On: 41-Kis-948853:48 Request METABOLIC PANEL, COMPREHENSIVE (51245)Indication: Chronic pancreatitis On: 45-Qik-453441:47 Request LIPOPROTEIN, BLD, BY NMR (44196)Indication: Hyperlipidemia On: 67-Jku-782832:47 Request Ferritin (27601)Indication: Iron deficiency anemia due to dietary causes On: 44-Gri-926316:51 Request URINE GRETTA CULTURE-IDENTIFICATN (52589)Indication: Urgency incontinence On: 70-Ffx-226082:58 Request LIPASE (00835)Indication: Chronic pancreatitis On: :51 Request AMYLASE (28047)Indication: Chronic pancreatitis On: :50 Request URINALYSIS (63536)Indication: Chronic pancreatitis On: :50 Request CBC WITH MANUAL DIFF (69112)Indication: Chronic pancreatitis On: :50 Request Metabolic Panel, Comprehensive (13701)Indication: Chronic pancreatitis On: :50 Request PT (PROTHROMBIN TIME) (74771)Indication: PFO (patent foramen ovale) On: 10-Wtd-026962:36 Request Vitamin B-12 (cyanocobalamin) (18688)Indication: S/P gastric bypass On: :21 Request Ferritin (37617)Indication: Iron deficiency anemia due to dietary causes On: : Request CBC, Platelets & Auto Diff (69208)Indication: Chronic pancreatitis On: :21 Request Metabolic Panel, Comprehensive (92396)Indication: Chronic pancreatitis On: 1-Yrx-843492:21 Request CALCIFIDIOL (86246) VIT D 25Indication: Vitamin D deficiency, unspecified On: 95-Rbm-60072:55 Request Comments: re check in 8 weeks Sed Rate Erythrocyte (71726)Indication: Fever On: 73-Gbc-670977:39 Request URINALYSIS (51659)Indication: Fever On: :33 Request URINE GRETTA CULTURE-IDENTIFICATN (70853)Indication: Fever On: 43-Ohs-547432:33 Request CALCIFIDIOL (73802) VIT D 25Indication: Vitamin D deficiency, unspecified On: :32 Request CBC, Platelets & Auto Diff (40214)Indication: Iron deficiency anemia due to dietary causes On: :32 Request Ferritin (54330)Indication: Iron deficiency anemia due to dietary causes On: 15-Msk-495138:32 Request GRETTA CULTURE-BLOOD (67716)Indication: Fever On: 79-Joa-235403:30 Request Comments: ONE FROM PORT AND ONE PERIPHERAL CALCIFIDIOL (96462) VIT D 25Indication: Vitamin D deficiency, unspecified On: 02-Gqd-430443:24 Request FERRITIN (89903)Indication: Iron deficiency anemia due to dietary causes On: 82-Qmc-518624:22 Request EBV ANTIBODY VCA/EA 67933 (83676)Indication: Fatigue On: 88-Ulz-813821:31 Request Comments: please do VCA IGM Ferritin (84611)Indication: Iron deficiency anemia due to dietary causes On: 90-Jhi-113848:00 Request CALCIFIDIOL (16991) VIT D 25Indication: Vitamin D deficiency, unspecified On: 62-Iul-228207:00 Request EBV Panel (08960)Indication: Pharyngitis, acute On: 29-Ppz-353327:58 Request Influenza A&B Viral Culture (25879)Indication: Fever On: 7-Rbf-016416:34 Request GRETTA CULTURE-OTHER (40729)Indication: Fever On: 2-Upw-922782:33 Request Rapid Strep Test, Office (68626)Indication: Fever On: 3-Iit-105950:18 Request Troponin I (90173)Indication: Chest pain at rest On: 29-Ris-190461:43 Request Comments: pls add to labs already done MYOGLOBIN (20089)Indication: Chest pain at rest On: 40-Pxu-288643:25 Request CPK MB FRACTION (66933)Indication: Chest pain at rest On: 31-Ors-311425:25 Request Sed Rate Erythrocyte (98500)Indication: Chest pain at rest On: :25 Request CBC WITH MANUAL DIFF (28947)Indication: Chest pain at rest On: 79-Gqe-509042:25 Request CALCIFEDIOL (41559)Indication: OTHER AND UNSPECIFIED POSTSURGICAL NONABSORPTION On: 0-Say-993216:12 Request PARATHORMONE (68801)Indication: OTHER AND UNSPECIFIED POSTSURGICAL NONABSORPTION On: 2-Kag-470062:12 Request Magnesium (59292)Indication: OTHER AND UNSPECIFIED POSTSURGICAL NONABSORPTION On: 2-Poq-222647:12 Request Phosphorus (63338)Indication: OTHER AND UNSPECIFIED POSTSURGICAL NONABSORPTION On: 5-Bkk-815751:12 Request IRON (19282)Indication: OTHER AND UNSPECIFIED POSTSURGICAL NONABSORPTION On: :12 Request FERRITIN (74031)Indication: OTHER AND UNSPECIFIED POSTSURGICAL NONABSORPTION On: :12 Request ZINC, BLOOD (24340)Indication: OTHER AND UNSPECIFIED POSTSURGICAL NONABSORPTION On: :12 Request VITAMIN A (51568)Indication: OTHER AND UNSPECIFIED POSTSURGICAL NONABSORPTION On: :12 Request TSH (32748)Indication: OTHER AND UNSPECIFIED POSTSURGICAL NONABSORPTION On: : Request MAGNESIUM (36954)Indication: OTHER AND UNSPECIFIED POSTSURGICAL NONABSORPTION On: : Request Folic Acid Serum (13277)Indication: OTHER AND UNSPECIFIED POSTSURGICAL NONABSORPTION On: : Request CHROMIUM (15475)Indication: OTHER AND UNSPECIFIED POSTSURGICAL NONABSORPTION On: : Request ASSAY, HOMOCYSTINE (03828)Indication: OTHER AND UNSPECIFIED POSTSURGICAL NONABSORPTION On: :12 Request Metabolic Panel, Basic (02464)Indication: Abdominal pain On: 65-Fhg-074270:11 Request Comments: do on this tuesday OSMOLALITY URINE (18217)Indication: Abdominal pain On: :11 Request Comments: today in ambulatory OSMOLALITY BLOOD (84229)Indication: Abdominal pain On: 86-Ooo-247090:11 Request Comments: today in ambulatory Lipase (03523)Indication: Abdominal pain On: 71-Yrr-633470:11 Request Comments: today in ambulatory Amylase (10502)Indication: Abdominal pain On: 00-Mml-319565:11 Request Comments: today in ambulatory CBC, Platelets & Auto Diff (85530)Indication: Abdominal pain On: 22-Spk-237176:11 Request Comments: today in ambulatory Metabolic Panel, Comprehensive (88045)Indication: Abdominal pain On: 99-Xyc-997186:10 Request Comments: today in ambulatory AMYLASE (58317)Indication: Abdominal pain On: 0-Nbs-081034:12 Request LIPASE (78077)Indication: Abdominal pain On: 3-Bxd-244581:12 Request Ferritin (28161)Indication: Iron deficiency anemia due to dietary causes On: 94-Miv-759349:20 Request Comments: in six months (approximately) Vitamin B-12 (cyanocobalamin) (41483)Indication: Other vitamin B12 deficiency anemia On: :19 Request Comments: in six months (approximately) Lipid Panel (56129)Indication: High blood triglycerides On: :19 Request Comments: in six months (approximately) Metabolic Panel, Comprehensive (63128)Indication: Chronic pancreatitis On: :19 Request Comments: in six months (approximately) Vitamin B-12 (cyanocobalamin) (66690)Indication: Other vitamin B12 deficiency anemia On: 46-Dhq-963240:27 Request METABOLIC PANEL, COMPREHENSIVE (02238)Indication: High blood triglycerides On: :19 Request LIPID PANEL (77035)Indication: High blood triglycerides On: :19 Request CBC, Platelets & Auto Diff (05334)Indication: Iron deficiency anemia due to dietary causes On: 53-Acw-774405:15 Request Ferritin (10214)Indication: Iron deficiency anemia due to dietary causes On: 38-Wvw-344653:15 Request Iron (55205)Indication: Iron deficiency anemia due to dietary causes On: 90-Kfk-407456:29 Request Comments: recheck in 4 weeks pt needs to be fasting Iron Binding Capacity (TIBC) (19110)Indication: Iron deficiency anemia due to dietary causes On: 18-Oym-626371:29 Request Comments: recheck in 4 weeks pt needs to be fasting Ferritin (91242)Indication: Iron deficiency anemia due to dietary causes On: 75-Jxc-169195:28 Request Comments: recheck in 4 weeks pt needs to be fasting METABOLIC PANEL, COMPREHENSIVE (30865)Indication: High blood triglycerides On: :33 Request LIPID PANEL (75437)Indication: High blood triglycerides On: :33 Request CBC (Auto) (14291)Indication: Iron deficiency anemia due to dietary causes On: :33 Request Ferritin (12146)Indication: Iron deficiency anemia due to dietary causes On: 13-Yxr-583572:33 Request Vitamin B-12 (cyanocobalamin) (36906)Indication: Other vitamin B12 deficiency anemia On: 88-Qpm-681201:32 Request CALCIFIDIOL (51387) VIT D 25Indication: Vitamin D deficiency, unspecified On: 18-Gic-854116:32 Request CULTURE, SPUTUM (32263)Indication: Cough On: 8-Fql-434826:36 Request Iron (75159)Indication: Iron deficiency anemia due to dietary causes On: 50-Cht-201237:53 Request CALCIFIDIOL (55780) VIT D 25Indication: Vitamin D deficiency, unspecified On: 80-Jpd-071797:02 Request CBC (Auto) (89929)Indication: Iron deficiency anemia due to dietary causes On: 1-Fnz-852625:49 Request Metabolic Panel, Comprehensive (22421)Indication: Chronic pancreatitis On: :49 Request Lipid Panel (75096)Indication: High blood triglycerides On: :49 Request Ferritin (85371)Indication: Iron deficiency anemia due to dietary causes On: 7-Phm-715357:48 Request CALCIFEDIOL (73608)Indication: Vitamin D deficiency, unspecified On: :48 Request Vitamin B-12 (cyanocobalamin) (58980)Indication: Other vitamin B12 deficiency anemia On: 0-Otw-519751:47 Request Lipase (95380)Indication: Chronic pancreatitis On: :47 Request Amylase (88660)Indication: Chronic pancreatitis On: :47 Request D-Dimer (12382)Indication: Anemia On: 38-Eft-757240:28 Request Comments: stat Metabolic Panel, Comprehensive (03206)Indication: Anemia On: :16 Request TYPE & SCREEN GEL (23370)Indication: Anemia On: :16 Request CBC with manual diff (04617)Indication: Anemia On: :15 Request Lipase (51124)Indication: Chronic pancreatitis On: :30 Request Amylase (92460)Indication: Chronic pancreatitis On: 74-Xmz-346301:30 Request Ferritin (79676)Indication: Iron deficiency anemia due to dietary causes On: 36-Jei-208634:28 Request LIPASE (42420)Indication: Chronic pancreatitis On: :21 Request AMYLASE (41059)Indication: Chronic pancreatitis On: 3-Xgf-495099:21 Request Lipase (32105)Indication: Chronic pancreatitis On: : Request Amylase (98816)Indication: Chronic pancreatitis On: :12 Request MICROALBUMIN: CREATININE RATIO (22775) AND (01391)Indication: Chronic pancreatitis On: : Request METABOLIC PANEL, COMPREHENSIVE (99788)Indication: Chronic pancreatitis On: : Request LIPID PANEL (80413)Indication: High blood triglycerides On: : Request CBC WITH MANUAL DIFF (79156)Indication: Chronic pancreatitis On: : Request Metabolic Panel, Comprehensive (78166)Indication: Chronic pancreatitis On: :46 Request Lipase (81481)Indication: Chronic pancreatitis On: :46 Request Amylase (70061)Indication: Chronic pancreatitis On: :46 Request CALCIFIDIOL (16920) VIT D 25Indication: Vitamin D deficiency, unspecified On: 8-Hpk-827878:43 Request Ferritin (01369)Indication: Iron deficiency anemia due to dietary causes On: :43 Request CBC (Auto) (48601)Indication: Iron deficiency anemia due to dietary causes On: :43 Request PT (Prothrobim Time) (89064)Indication: AFTERCARE, LONG-TERM USE, ANTICOAGULANTS On: :28 Request Lipase (33242)Indication: Chronic pancreatitis On: : Request Amylase (49657)Indication: Chronic pancreatitis On: : Request Metabolic Panel, Comprehensive (92945)Indication: Chronic pancreatitis On: : Request CBC (Auto) (50883)Indication: Leukopenia On: : Request Lipid Panel (61896)Indication: High blood triglycerides On: :25 Request Iron (13749)Indication: Iron deficiency anemia due to dietary causes On: :23 Request Ferritin (43508)Indication: Iron deficiency anemia due to dietary causes On: :23 Request Vitamin B-12 (cyanocobalamin) (88623)Indication: Other vitamin B12 deficiency anemia On: :23 Request CALCIFIDIOL (77259) VIT D 25Indication: Vitamin D deficiency, unspecified On: :23 Request Lipase (14620)Indication: Chronic pancreatitis On: : Request Amylase (37970)Indication: Chronic pancreatitis On: :21 Request Comments: pls add to labs already drawn Metabolic Panel, Comprehensive (61364)Indication: Chronic pancreatitis On: : Request Ferritin (55257)Indication: Iron deficiency anemia due to dietary causes On: : Request CBC (Auto) (04242)Indication: Chronic pancreatitis On: : Request LIPID PANEL (50747)Indication: High blood triglycerides On: 0-Igz-126656:15 Request Iron Binding Capacity (TIBC) (99471)Indication: Anemia On: :53 Request Iron (36621)Indication: Anemia On: :53 Request Ferritin (98710)Indication: Anemia On: :53 Request CBC (Auto) (60593)Indication: Anemia On: :53 Request Metabolic Panel, Comprehensive (77093)Indication: Chronic pancreatitis On: :53 Request OVA & PARASITE DIR SMEAR (58636)Indication: Diarrhea On: :37 Request LEUKOCYTE COUNT, FECAL (82443)Indication: Diarrhea On: :37 Request C.Difficile, Stool (64594)Indication: Diarrhea On: :37 Request GRETTA CULTURE-STOOL (45222)Indication: Diarrhea On: :37 Request Vitamin B-12 (cyanocobalamin) (67563)Indication: Other vitamin B12 deficiency anemia On: :05 Request Iron (39763)Indication: Anemia On: 30-Mey-495196:05 Request Ferritin (74041)Indication: Anemia On: :05 Request METABOLIC PANEL, COMPREHENSIVE (59697)Indication: High blood triglycerides On: :05 Request CBC WITH MANUAL DIFF (03744)Indication: Anemia On: :05 Request LIPID PANEL (10997)Indication: High blood triglycerides On: 91-Lnt-309891:04 Request nasal influenza swab (09119) R4Bkugiwufwf: Unspecified Diagnosis On: 4-Gjc-335603:29 Request Rapid Flu (75599 x 2)Indication: Fever On: 9-Yxu-514050:44 Request Lipid Panel (20606)Indication: High blood triglycerides On: 45-Cvf-410386:53 Request CBC (Auto) (69027)Indication: Chronic pancreatitis On: :51 Request Metabolic Panel, Comprehensive (47451)Indication: Chronic pancreatitis On: :51 Request Ferritin (84396)Indication: Anemia On: :51 Request Iron (43355)Indication: Anemia On: :51 Request Vitamin B-12 (cyanocobalamin) (00277)Indication: Other vitamin B12 deficiency anemia On: 85-Mrg-868014:51 Request Lipid Panel (07329)Indication: Malabsorption syndrome On: :39 Request Sed Rate Erythrocyte (53446)Indication: Chronic pancreatitis On: :35 Request CBC, Platelets & Auto Diff (72398)Indication: Chronic pancreatitis On: :35 Request Magnesium (38431)Indication: Chronic pancreatitis On: :35 Request Lipase (75986)Indication: Chronic pancreatitis On: :35 Request Amylase (44165)Indication: Chronic pancreatitis On: :35 Request Metabolic Panel, Comprehensive (95215)Indication: Chronic pancreatitis On: :35 Request CBC (Auto) ([id number])Indication: Abdominal pain, acute, generalized On: :29 Request Metabolic Panel, Comprehensive ([id number])Indication: Abdominal pain, acute, generalized On: 41-Mkk-166489:29 Request Methylmalonic acid, serum 59136Mqqaoflwkd: Other vitamin B12 deficiency anemia On: 17-Pfh-191276:29 Request CULTURE, SPUTUM (09760)Indication: Cough On: 2-Gya-275307:42 Request Lipase (48334)Indication: Acute pancreatitis On: 9-Kfg-561494:59 Request Amylase (70672)Indication: Acute pancreatitis On: 4-Egs-038657:59 Request DESIRAE (ANTINUCLEAR ANTIBODY) (95142)Indication: Pain in unspecified joint On: 5-Sut-265177:48 Request C-REACTIVE PROTEIN (86100)Indication: Pain in unspecified joint On: 6-Hic-506460:48 Request CBC WITH MANUAL DIFF (76159)Indication: Pain in unspecified joint On: 3-Qbl-925753:48 Request METABOLIC PANEL, COMPREHENSIVE (48004)Indication: Pain in unspecified joint On: 1-Rnu-050559:48 Request RHEUMATOID FACTOR-QUANT (34772)Indication: Pain in unspecified joint On: 6-Gvi-392602:48 Request SED RATE ERYTHROCYTE (02399)Indication: Pain in unspecified joint On: 9-Gzf-727269:48 Request TSH ([id number])Indication: Pain in unspecified joint On: 7-Sde-461278:48 Request GRETTA CULTURE-OTHER (86902)Indication: Pharyngitis, acute On: 85-Hjj-797174:12 Request Rapid Strep Test, Office (12114)Indication: Pharyngitis, acute On: 21-Nje-037025:12 Request Comments: negative VITAMIN D, 1, 25-DIHYDROXY (71600)Indication: Chronic pancreatitis On: 57-Bsn-039063:46 Request Vitamin B-12 (cyanocobalamin) (62682)Indication: Other vitamin B12 deficiency anemia On: 01-Uco-724966:43 Request Lipase (54015)Indication: Chronic pancreatitis On: 52-Qoq-085285:35 Request Amylase (34972)Indication: Chronic pancreatitis On: 77-Kbp-484883:34 Request CBC (Auto) (09192)Indication: Chronic pancreatitis On: 13-Yty-602271:34 Request Metabolic Panel, Comprehensive (83896)Indication: Chronic pancreatitis On: 19-Fwd-370369:34 Request Lipid Panel (42606)Indication: Chronic pancreatitis On: 73-Gci-502606:34 Request Comments: standing order every 3 months Metabolic Panel, Comprehensive (85180)Indication: Edema On: :13 Request CBC, Platelets & Auto Diff (59083)Indication: Edema On: :13 Request PTT (Activated Partial Thromboplastin Time) (03696)Indication: Edema On: :12 Request PT (Prothrobim Time) (03301)Indication: Edema On: 92-Ayr-497333:12 Request Lipase (24502)Indication: pancreatitis On: :32 Request Amylase (11511)Indication: pancreatitis On: :32 Request CBC (Auto) ([id number])Indication: pancreatitis On: :32 Request Metabolic Panel, Comprehensive (01824)Indication: pancreatitis On: :32 Request Metabolic Panel, Comprehensive (12289)Indication: Fever On: 24-Uad-287806:57 Request GRETTA CULTURE-BLOOD (05620)Indication: Fever On: :56 Request Comments: one from peripheral GRETTA CULTURE-BLOOD (67946)Indication: Fever On: 26-Vhd-581406:56 Request Comments: one from port Sed Rate Erythrocyte (19539)Indication: Fever On: 59-Lhl-192783:56 Request CBC, Platelets & Auto Diff (95863)Indication: Fever On: :56 Request Urinalysis, Office (80718)Indication: Fever On: 42-Ezb-832306:56 Request GRETTA CULTURE-OTHER (53609)Indication: Fever On: :53 Request Rapid Strep Test, Office (62234)Indication: Fever On: 6-Awa-845007:52 Request CBC, Platelets & Auto Diff (75798)Indication: Chronic pancreatitis On: 4-Ifp-362687:46 Request Lipase (93332)Indication: Chronic pancreatitis On: :46 Request Amylase (98471)Indication: Chronic pancreatitis On: 0-Nyg-365939:46 Request Metabolic Panel, Comprehensive (83812)Indication: Chronic pancreatitis On: 6-Upj-641229:46 Request FERRITIN ([id number])Indication: Anemia On: 2-Wkq-729866:22 Request VITAMIN B-12 (CYANOCOBALAMIN) (76879)Indication: Other vitamin B12 deficiency anemia On: 5-Wyb-059375:22 Request LIPASE ([id number])Indication: Acute pancreatitis On: 84-Kma-427726:22 Request ALBUMIN SERUM ([id number])Indication: Acute pancreatitis On: :22 Request CBC (AUTO) ([id number])Indication: Acute pancreatitis On: :21 Request METABOLIC PANEL, BASIC (08993)Indication: Abnormal blood chemistry On: :21 Request Planned Encounters Medical; [facility] 4 Month Fu - On: 01-Sep-2018 13:30 [facility] Sarah Pizano MD, MD, Dana M Planned Procedures Flu Vaccine (Quadrivalent) On: 31-Mar-2018 Intent 01924Nf: COMFORT Gallegos Comments: Lot #:[id number] date: 4-45-47Ofxuig given:0.5mlRoute: IMSite given:L DltdGiven by: ElaineVIS and ABN signed [employer] SCREENING DIGITAL TOMOSYNTHESIS On: 20-Dec-2017 Intent OF BREAST (32102)By: Sarah Pizano MD, MD, Dana M DEXA SCAN AXIAL SKELETON On: 20-Dec-2017 Intent (15749)By: Sarah Pizano MD, MD, Dana M SCREENING DIGITAL TOMOSYNTHESIS On: 29-Apr-2017 Intent OF BREAST (54495)By: Sarah Pizano MD, MD, Dana M Flu Vaccine (Quadrivalent) On: 29-Apr-2017 Intent 12577Am: Sarah Pizano MD Comments: lot: [id number]: 12/19/18site/route: L kelin, IMamt: 0.5mlVIS and ABN signed when applicableChelsea, TEST DESKMAN Sarah Pizano MD CT - Abdomen & Pelvis (IV On: 01-Oct-2016 Intent Contrast Needed)By: Dima DURAN, Comments: attentinon pancrease follow up on kidney cyst. 07-20 creat 0.76 Sarah Ghosh MD Flu Vaccine (Quadrivalent) On: 17-May-2016 Intent 73247Hh: Sarah Pizano MD Comments: FLUlot: [id number]:11/17site:Lt deltoidroute:IMdose:.5mlDEMICK, MA Sarah Pizano MD Aerosol Treatment (79063)By: On: 27-Apr-2016 Intent Slarb SUPERVISOR POLICY CHANGE CLERKS, Kacey DEXA SCAN AXIAL SKELETON On: 09-Mar-2016 Intent (96764)By: Sarah Pizano MD, MD, Dana M MAMMOGRAM, SCREENING, BOTH On: 09-Mar-2016 Intent BREAST ([id number])By: Sarah Pizano MD, MD, Dana M DEXA SCAN AXIAL SKELETON On: 15-Jul-2015 Intent (87056)By: Sarah Pizano MD, MD, Dana M MAMMOGRAM, SCREENING, BOTH On: 15-Jul-2015 Intent BREAST (38252)By: Sarah Pizano MD, MD, Dana M Aerosol Treatment (97199)By: On: 08-Jul-2015 Intent Pamella Saavedra CNP Aerosol Treatment (27435)By: On: 08-Jul-2015 Intent Slarb SUPERVISOR POLICY CHANGE CLERKS, Kacey XR HIP RIGHT COMPLETE (87308)By: On: 30-Jun-2015 Intent Sarah Pizano MD, MD, Comments: right hip Sarah Rebollar Radiology - PelvisBy: Dima On: 24-Jun-2015 Intent Sarah DURAN MD, Dana M Comments: and right hip xray Venous Doppler - RightBy: On: 24-Jun-2015 Intent Sarah Pizano MD, MD, Comments: leg Sarah Rebollar Flu Vaccine (Quadrivalent) On: 15-Apr-2015 Intent 35299Zi: Sarah Pizano MD Comments: lot [id number]: 01/01/2016site/route L kelin, IMamt 0.5mlVIS and ABN signed when applicableMelba, CMAFM4 Sarah Pizano MD Radiology - ChestBy: Quentin ARGUETA, On: 07-Feb-2015 Intent Adeola Aerosol Treatment (77442)By: On: 07-Feb-2015 Intent Ailyn Aguilar Solu -Medrol Injection, 125 mg On: 05-Feb-2015 Intent (J2930)By: Pamella Saavedra CNP Comments: lot:[id number]:route:IMdose:125MGsite: R glutGiven by: FOX Angeles Solu -Medrol Injection, 125 mg On: 04-Feb-2015 Intent (J2930)By: Pamella Saavedra CNP Aerosol Treatment (52098)By: On: 04-Feb-2015 Intent Pamella Saavedra CNP MAMMOGRAM, SCREENING, BOTH On: 14-Jan-2015 Intent BREAST (70795)By: Sarah Pizano MD, MD, Dana M Prevnar 13 (38758)By: Dima On: 16-Jul-2014 Intent Sarah DURAN MD, Dana M ADMINISTRATION OF INFLUENZA On: 22-Apr-2014 Intent VIRUS VACCINE (G0008)By: Sarah Pizano MD, MD, Dana M FLU VAC, SPLIT, >3 YEARS, On: 22-Apr-2014 Intent INTRAMUSC (63823)By: Dima DURAN, Comments: Lot #:[id number] date:mount given:0.5mlRoute: IMSite given:left deltoid Given by: Sarah Mota MD Phenergan Injection, up to 50 mg On: 12-Dec-2013 Intent (J2550)By: Pamella Saavedra CNP MAMMOGRAM, SCREENING, BOTH On: 25-Sep-2013 Intent BREASTS (58541)By: Sarah Pizano MD, MD, Dana M Eprescribed prescriptions On: 25-Sep-2013 Intent (G8553)By: Sarah Pizano MD, MD, Dana M Aerosol Treatment (30615)By: On: 05-Sep-2013 Intent [address] Sa[address]ra CNP CT - Abdomen & Pelvis (IV On: 04-Jun-2013 Intent Contrast Needed)By: Sarah Pizano MD, MD, Dana M DXA, BONE DENSITY, AXIAL On: 04-Jun-2013 Intent SKELETON (97587)By: Dima DURAN, Comments: postmenapausal Sarah Ghosh MD MAMMOGRAM, SCREENING, BOTH On: 04-Jun-2013 Intent BREASTS (54755)By: Dima DURAN, Sarah Ghosh MD Pulse Oximetry (34544)By: On: 04-Jun-2013 Intent COMFORT Gallegos Eprescribed prescriptions On: 14-May-2013 Intent (G8553)By: Melba Malloy ELECTROCARDIOGRAM, COMPLETE On: 26-Dec-2012 Intent (ECG) (69756)By: Sarah Pizano MD, MD, Dana M Eprescribed prescriptions On: 26-Dec-2012 Intent (G8553)By: Makenzie Allred LPN MAMMOGRAM, SCREENING, BOTH On: 24-Aug-2012 Intent BREASTS (98478)By: Sarah Pizano MD, MD, Dana M Pulse Oximetry (50042)By: On: 29-Jun-2012 Intent COMFORT Gallegos Radiology - Chest- PA and LatBy: On: 01-Jun-2012 Intent Sofia Younger DO Eprescribed prescriptions On: 01-Jun-2012 Intent (G8553)By: Kim Garces LPN FLU VAC, SPLIT, >3 YEARS, On: 28-Apr-2012 Intent INTRAMUSC (32489)By: Balaji, Comments: Lot:[id number]:6.30.13Dose:prefilledRoute:IMSite:L DltdGiven By:BARRY Garcia IMMUNIZ ADMNIN, 1 VAC, On: 28-Apr-2012 Intent SNGL/COMBO (12868)By: Radha Carpio TDAP VACCINE >7 IM (42862)By: On: 24-Nov-2011 Intent Makenzie Allred LPN Comments: Lot #[id number]- 11.13Site- L arm, ImDose prefilledgiven by: Makenzie MAMMOGRAM, SCREENING, BOTH On: 01-Nov-2011 Intent BREASTS (30057)By: Sarah Pizano MD, MD, Dana M Aerosol Treatment (02989)By: On: 14-Oct-2011 Intent Sofia Younger DO Comments: [...] SPLIT, >3 YEARS, On: 20-Apr-2011 Intent INTRAMUSC (64273)By: Cayden Comments: Lot #[id number]-5/30/12Site-left deltoidgiven by: Jared Rodarte, SCAR CASTILLON, Chery IMMUNIZ ADMNIN, 1 VAC, On: 20-Apr-2011 Intent SNGL/COMBO (95963)By: Chery Rodarte LPN B 12 Injection, 1000 mcg On: 22-Mar-2011 Intent (J3420)By: COMFORT Gallegos DRAIN/INJECT MAJOR JOINT OR On: 22-Mar-2011 Intent BURSA ()By: COMFORT Gallegos Comments: Lot #:[id number] date: given:2ml Route: intra articular Site given:bilateral knees Given by: Dr. Pizano Pulse Oximetry (90977)By: Quentin On: 19-Mar-2011 Intent INDUSTRIAL WASTE TREATMENT TECHNICIAN, Adeola Aerosol Treatment (55568)By: On: 19-Mar-2011 Intent Ciesa INDUSTRIAL WASTE TREATMENT TECHNICIAN, Adeola DRAIN/INJECT MAJOR JOINT OR On: 12-Mar-2011 Intent BURSA ()By: COMFORT Gallegos Comments: Lot #:[id number] date: given:2ml Route: intra articular Site given:bilateral knees Given by: Dr. Pizano DRAIN/INJECT MAJOR JOINT OR On: 04-Mar-2011 Intent BURSA ()By: COMFORT Gallegos Comments: Lot #:[id number] date: given:2mlRoute: intra articular Site given:Bilateral knees Given by: Dr. Pizano injection #1 Kenalog Injection, 10 mgm On: 08-Feb-2011 Intent (J3301)By: Sarah Pizano MD Comments: x 8 Sarah Pizano MD Breast Ultrasound - LeftBy: On: 08-Feb-2011 Intent Sarah Pizano MD, MD, Sarah Rebollar DXA, BONE DENSITY, AXIAL On: 02-Nov-2010 Intent SKELETON (86363)By: Sarah Pizano MD, MD, Dana M MAMMOGRAM, SCREENING, BOTH On: 02-Nov-2010 Intent BREASTS (33146)By: Sarah Pizano MD, MD, Dana M FLU VAC, SPLIT, >3 YEARS, On: 17-Jun-2010 Intent INTRAMUSC (06446)By: Cayden Comments: Lot #[id number] 4PExp-4/11Site-right deltoidgiven by:Chery PAVON LPN IMMUNIZ ADMNIN, 1 VAC, On: 17-Jun-2010 Intent SNGL/COMBO (22669)By: Chery Rodarte LPN DXA, BONE DENSITY, AXIAL On: 30-Sep-2009 Intent SKELETON (48684)By: Sarah Pizano MD, MD, Dana M MAMMOGRAM, SCREENING, BOTH On: 30-Sep-2009 Intent BREASTS (54560)By: Sarah Pizano MD, MD, Dana M B 12 Injection, 1000 mcg On: 30-Sep-2009 Intent (J3420)By: COMFORT Gallegos Pulse Oximetry (74209)By: Quentin On: 09-Apr-2009 Intent INDUSTRIAL WASTE TREATMENT TECHNICIAN, Adeola Aerosol Treatment (12988)By: On: 09-Apr-2009 Intent Ciesa INDUSTRIAL WASTE TREATMENT TECHNICIAN, Adeola FLU VAC, SPLIT, >3 YEARS, On: 26-Mar-2009 Intent INTRAMUSC (78597)By: Lisa HERRON, Andie IMMUNIZ ADMNIN, 1 VAC, On: 26-Mar-2009 Intent SNGL/COMBO (65431)By: Lisa HERRON, Comments: Lot #: [id number] date: mount given: 0.5 mlRoute: IMSite given: left deltoidGiven by: SCAR Montenegro INJECTION, VITAMIN B-12 On: 07-Feb-2009 Intent CYANOCOBALAMIN, UP TO 1000 MCG Comments: Lot #[id number] date: given:1mlSite given: right deltoidGiven by:Judith. (Special Coverage Instructions Apply. See CIM: 45-4 and [facility]: 2048) (J3420)By: COMFORT Gallegos Pulse Oximetry (25705)By: Ceci On: 04-Dec-2008 Intent DO, Rosa Maria A Comments: post % Aerosol Treatment (55164)By: On: 04-Dec-2008 Intent Fast DORosa Maria A Comments: done-aw B 12 Injection, 1000 mcg On: 04-Dec-2008 Intent (J3420)By: Tonia Garcia Comments: Lot #[id number]-05/2010Site-right ufauicfLpcr5645khu/1mlgiven by Debbie Lei LPN Pulse Oximetry (02184)By: On: 04-Dec-2008 Intent Tonia Garcia Comments: 91% [...] Intent (J3420)By: COMFORT Gallegos Comments: Lot #[id number]-right lsqsijsPqei4739cba/1mlgiven by Debbie Lei LPN DRAIN/INJECT MAJOR JOINT OR On: 09-Oct-2008 Intent BURSA ()By: COMFORT Gallegos Comments: Lot #:[id number] date:mount given:Route: intra articular Site given:bilateral knees Given by: Dr. Pizano DRAIN/INJECT MAJOR JOINT OR On: 01-Oct-2008 Intent BURSA ()By: COMFORT Galleogs Comments: Lot #:[id number] date:mount given:2.5ml Route:intra-articular Site given:Bilateral knees Given by: Dr. Pizano DRAIN/INJECT MAJOR JOINT OR On: 24-Sep-2008 Intent BURSA ()By: COMFORT Gallegos Comments: Lot #:[id number] date: Amount given:2.5 mlRoute: intra-articular Site given:bilateral knees Given by: Dr. Pizano DRAIN/INJECT MAJOR JOINT OR On: 17-Sep-2008 Intent BURSA ()By: COMFORT Gallegos Comments: Lot #:[id number] date:mount given:2 grams Route: Intra articular Site given: bilateral knees Given by: Dr. Piznao DRAIN/INJECT MAJOR JOINT OR On: 13-Sep-2008 Intent BURSA ()By: COMFORT Gallegos Comments: Lot #:[id number] date:05-10 Amount given:2.5MLRoute: INTRA ARTICULAR Site given:bilateral knees Given by: Dr. Dima Sarkar 12 Injection, 1000 mcg On: 10-Sep-2008 Intent (J3420)By: COMFORT Gallegos B 12 Injection, 1000 mcg On: 29-Jul-2008 Intent (J3420)By: Denise Collazo Comments: Amt: 1mlLot: [id number]: 02/10Route: IMSite: right deltTolerated: wellGiven By: SCAR Sood Pulse Oximetry (78605)By: Quentin On: 29-Jul-2008 Intent KENDALL Adeola Aerosol Treatment (23022)By: On: 29-Jul-2008 Intent Ciesa KENDALL Adeola Aerosol Treatment (09095)By: On: 16-Jul-2008 Intent Sofia Younger DO Comments: done-awnoise resolved and much more air exchange Pulse Oximetry (63550)By: Carisa On: 16-Jul-2008 Sofia Davis DO Comments: 93% Solu- Medrol Injection, 125mg On: 16-Jul-2008 Intent (J2930)By: Sofia Younger DO Comments: Lot #OATYMExp-12/12Site-right jfzIzvj8ex/125mggiven by Debbie Lei LPN B 12 Injection, 1000 mcg On: 30-Apr-2008 Intent (J3420)By: Prema Lei Comments: Lot #[id number]-11/10Site-right awcaiizHfhk2packdcm by Debbie Lei LPN DXA, BONE DENSITY, AXIAL On: 30-Apr-2008 Intent SKELETON (06511)By: Dima DURAN, Comments: estrogen def Sarah Pizano MD, Sarah Rebollar MAMMOGRAM, SCREENING, BOTH On: 30-Apr-2008 Intent BREASTS (35957)By: Dima DURAN, Sarah Pizano MD, Sarah Rebollar B 12 Injection, 1000 mcg On: 27-Mar-2008 Intent (J3420)By: Tonia Garcia Comments: Lot #:[id number] date:mount given:.1mlRoute: IMSite given:left deltoidGiven by: EDEN Salcido Pulse Oximetry (35975)By: On: 27-Mar-2008 Intent Tonia Garcia Comments: 96% Pulse Oximetry (89002)By: On: 14-Mar-2008 Intent COMFORT Gallegos B 12 Injection, 1000 mcg On: 06-Feb-2008 Intent (J3420)By: Pamella Saavedra CNP Comments: Lot #:[id number] date: Amount given:1ml Route: IMSite given:left deltoid Given by: billy Solu -Medrol Injection, 125 mg On: 06-Feb-2008 Intent (J2930)By: Pamella Saavedra CNP Comments: Lot #:[id number] date:mount given:125mgRoute: IMSite given:left gluteal Given by: aretha Pulse Oximetry (83969)By: Quentin On: 06-Feb-2008 Intent Pamella ARGUETA Aerosol Treatment (70187)By: On: 06-Feb-2008 Intent Pamella Saavedra CNP B 12 Injection, 1000 mcg On: 21-Dec-2007 Intent (J3420)By: Ledy Nogueira Comments: given in right deltoid, lot#[id number], exp.3.10 >Wf. B 12 Injection, 1000 mcg On: 03-Oct-2007 Intent (J3420)By: Ciesa INDUSTRIAL WASTE TREATMENT TECHNICIAN, Adeola Pulse Oximetry (51757)By: Quentin On: 03-Oct-2007 Intent Pamella ARGUETA Aerosol Treatment (62085)By: On: 03-Oct-2007 Intent Bryanjunie Pamella ARGUETA Pulse Oximetry (06408)By: Lenny, On: 16-Aug-2007 Intent Cira Aerosol Treatment (37769)By: On: 16-Aug-2007 Intent Sofia Younger DO Comments: no wheeze and better air exchange Solu- Medrol Injection, 125mg On: 16-Aug-2007 Intent (J2930)By: Sofia Younger DO Comments: given in left buttocks.lot # [id number]\Exp 02/2010 SPECIMEN HNDLNG/TRNSPRT, OFFC > On: 16-Aug-2007 Intent LAB (31807)By: Sofia Younger DO B 12 Injection, 1000 mcg On: 01-Aug-2007 Intent (J3420)By: Prema Lei Comments: Lot #[id number]-05/12Site-left nmydlzuKpue3ljrjisj by Debbie Lei [facility] CT - ChestBy: Sarah Pizano MD On: 01-Aug-2007 Intent Sarah Pizano MD FLU VAC, SPLIT, >3 YEARS, On: 18-Apr-2007 Intent INTRAMUSC (66139)By: Sarah Pizano MD, MD, Dana M IMMUNIZ ADMNIN, 1 VAC, On: 18-Apr-2007 Intent SNGL/COMBO (06267)By: Sarah Pizano MD, MD, Dana M B [...] HNDLNG/TRNSPRT, OFFC > On: 10-Oct-2006 Intent LAB (44831)By: Sarah Pizano MD, MD, Dana M Solu -Medrol Injection, 125 mg On: 16-Sep-2006 Intent (J2930)By: Sarah Pizano MD Comments: lot # [id number] exp 04-[address] gluteal by Sarah Chacon lpn, MD Pulse Oximetry (26429)By: On: 16-Sep-2006 Intent Sarah Pizano MD, MD, Dana M Aerosol Treatment (38378)By: On: 16-Sep-2006 Intent Sarah Pizano MD, MD, Dana M Pulse Oximetry (71148)By: On: 04-Aug-2006 Intent Sarah Pizano MD, MD, Dana M EKG (08596)By: Sarah Pizano MD On: 08-Jul-2006 Intent Sarah Morfin MD IMMUNIZ ADMNIN, 1 VAC, On: 06-May-2006 Intent SNGL/COMBO (04755)By: Ramiro ABBOTT, Peg FLU VAC, SPLIT, >3 YEARS, On: 06-May-2006 Intent INTRAMUSC (71290)By: Ramiro ABBOTT, Comments: Lot #:Expiration date:Amount given:Route: imSite given:r armGiven by: galina golden lpn Peg Echo CompleteBy: Dima DURAN, On: 19-Apr-2006 Intent [address] MD [address] - Abdomen & PelvisBy: Dima On: 19-Apr-2006 Intent Sarah DURAN MD, Dana M Comments: ?obstruction, pancreatitis, attention kidney cyst send to [facility] gastrologist [facility] Planned Medications INJECTION, METHYLPREDNISOLONE SODIUM SUCCINATE, [...] Advance Directives Name Dates Details Immunization Registry [place] - Effective on Effective: 29-Apr-201704/29/2017. Expiration date [...] (579.8), Hyponatremia (276.1), Asthma (493.11), Fibromyalgia (729.1), [facility] (Renamed from [facility]), Obesity,unspecified (278.00), GERD (530.81), DEFICIENCY, VITAMIN D [...] ANEMIA DUE TO DIETARY IRON DEFICIENCY (280.1), [facility] V[facility] (Renamed from [facility]) [facility] Office Visit On: 29-Jun-2012 [...] no side effects and compliant with dosing iaslinn End: 01-Nov-2011 11:14 men. Patient sleeps 6 [...] (477.8), Other vitamin B12 deficiency anemia (281.1), [facility] Phone Encounter On: 23-Jan-2010 [...] docs for this Dr Jacob rabago at [facility]-- -- feels similiar to what she [...] months. Note for Fever: pt had epidural 9-20-00Gdlkfartd Diagnosis: Dehydration(276.51), Abdominal Pain,Generalized (789.07), FEVER (780.6) [...] care visit: swelling better with aldactone, reviewed lending consultant's letter use compression, work up from [...] weekend , bite by flies, camp in [facility], no fever abd pain still hit abd [...] Epigastric pain (789.06), SVC thrombosis, Fibromyalgia (729.1), [facility] Office Visit On: 21-Nov-2006 [...] chemistry (790.6) [facility]; junie guarantor
--- OUTSIDE RECORDS SUMMARY | 2018-08-02 06:22 | XMS RPT_ITS | Continuity of Care Document ---
:1955 Author Organization [facility] Address [address] [place] [address] Phone Care Team Providers Name Role Phone Dima DURAN, Adalid Rebollar Unavailable Antonino Lucas MD Unavailable Princess DURAN, Brandan Buchanan Unavailable Senthil Romero Unavailable Jeremy DURAN, Dr. George Walker Unavailable Kunal Lea DO Unavailable Adalid Pizano MD Unavailable Shantal Tapia Unavailable Eladio [...] cervical.doing every 6 months. ariel leaving to [place]. reconmmend Dr. romero and i talk to [...] days Quantity: 90 {Tablet} Refills: 3 Ordered:25-Apr-2018 Adalid Pizano MD, MD, Dana M Start : 25-Apr-2018 Active Azelastine HCl 0.1 % Nasal Solution 1 (one) Solution Solution 2 spray each nostril bid for 0 days Quantity: 1 {Each} Refills: 2 Ordered:23-Jul-2016 COMFORT Gallegos Start : 23-Jul-2016 Active Calcium 1200mg 1 qd Active Comments:plus 1000IU Vitamin D3 Clindamycin Phosphate 1 % External Lotion 1 (one) Application Application apply daily for 0 days Quantity: 1 {Tube} Refills: 0 Ordered:01-May-2018 COMFORT Gallegos Start : 01-May-2018 Active Comments:if really expensive can use an equivalent Creon 15662 UNIT Oral Capsule Delayed Release Particles 2 (two) Capsule DR Part tid romel meals for 0 days Quantity: 540 {Capsule} Refills: 3 Ordered:09-May-2017 Adalid Pizano MD, MD, Dana M Start : 09-May-2017 Active Cymbalta 60 MG Oral Capsule Delayed Release Particles [address] Part QHS / HS for 0 days Quantity: 90 {Capsule} Refills: 3 Ordered:09-May-2017 Adalid Pizano MD, MD, Dana M Start : 09-May-2017 Active DURAGESIC-50, 50MCG/HR (Transdermal Patch 72 Hour) 1 patch Patch 72HR every 3 days for 0 days Quantity: 10 {Patch_72HR} Refills: 0 Ordered:01-Jul-2009 COMFORT Gallegos Start : 01-Jul-2009 Active Estropipate 0.75 MG Oral Tablet 1 Tablet daily for 0 days Quantity: 90 {Tablet} Refills: 3 Ordered:09-May-2017 Adalid Pizano MD, MD, Dana M Start : 09-May-2017 Active Comments:ninety Montelukast Sodium 10 MG Oral Tablet 1 Tablet qd for 0 days Quantity: 90 {Tablet} Refills: 3 Ordered:30-Nov-2016 Adalid Pizano MD, MD, Dana M Start : 30-Nov-2016 Active [place] 5-325 MG Oral Tablet 1 (one) Tablet q 6 hours prn (usual use tid) for 0 days Quantity: 30 {Tablet} Refills: 0 Ordered:13-Jan-2017 Adalid Pizano MD, MD, Dana M Start : 13-Jan-2017 Active Comments:Dr. Romero Omeprazole 40 MG Oral Capsule Delayed Release 1 (one) Capsule DR bid for 0 days Quantity: 180 {Capsule} Refills: 3 Ordered:15-Dec-2017 Adalid Pizano MD, MD, Dana M Start : 15-Dec-2017 Active OneTouch Ultra Blue In Vitro Strip 1 (one) Strip qd for 0 days Quantity: 30 {Strip} Refills: 6 Ordered:29-Oct-2016 Adalid Pizano MD, MD, Dana M Start : 29-Oct-2016 Active Comments:DX: R73.03 PROAIR RESPICLICK, 108 (90 Base)MCG/ACT (Inhalation Aerosol Powder Breath Activated) 1 (one) puff puff qid for 0 days Quantity: 1 {Inhaler} Refills: 4 Ordered:24-Jun-2015 Adalid Pizano MD, MD, Dana M Start : 17-Apr-2015 Active Comments:Dr. Martin Wren 10 MG Oral Tablet 1 (one) Tablet QD for 0 days Quantity: 90 {Tablet} Refills: 3 Ordered:02-Sep-2017 Adalid Pizano MD, MD, Dana M Start : 02-Sep-2017 Active Spironolactone 50 MG Oral Tablet 1 (one) Tablet QD for 0 days Quantity: 90 {Tablet} Refills: 3 Ordered:14-Mar-2018 Adalid Pizano MD, MD, Dana M Start : 14-Mar-2018 Active TiZANidine HCl 4 MG Oral Tablet 1 (one) Capsule Tablet tid for 0 days Quantity: 270 {Tablet} Refills: 3 Ordered:14-Apr-2018 Dima DURAN, Adalid Sloan MD, Adalid Rebollar Start : 14-Apr-2018 Active Vitamin D (Ergocalciferol) 59030 UNIT Oral Capsule 1 (one) capsule twice weekly for 0 days Quantity: 24 {Capsule} Refills: 3 Ordered:08-Mar-2018 Dima DURAN, Adalid Sloan MD, Adalid Rebollar Start : 08-Mar-2018 Active Warfarin Sodium 4 MG Oral Tablet 1 Tablet qd as directed for 0 days Quantity: 90 {Tablet} Refills: 3 Ordered:04-Jun-2016 Dima DURAN, Adalid Sloan MD, Adalid Rebollar Start : 04-Jun-2016 Active Comments:Dr. Lucas Zolpidem Tartrate 10 MG Oral Tablet 1 Tablet at night prn for 0 days Quantity: 90 {Tablet} Refills: 1 Ordered:06-Feb-2018 Dima DURAN, Adalid Sloan MD, Adalid Rebollar Start : 06-Feb-2018 Active Comments:[id number] called to [facility] ADVAIR DISKUS, 100-50MCG/DOSE [...] End : 24-Aug-2012 Inactive CALCIUM 500/VITAMIN D, 272-713PS-HNAL (Oral Tablet) 1 (one) Tablet daily for [...] : 09-Mar-2016 End : 04-Jun-2016 Inactive Drisdol 35002 UNIT Oral Capsule 1 Capsule two times a week for 0 days Quantity: 24 {Capsule} Refills: 3 Ordered:13-Jan-2017 Dima DURAN, Adalid Slaon MD, Adalid Rebollar Start : 23-Jul-2016 End : 13-Jan-2017 [...] : 21-Dec-2007 End : 14-Mar-2008 Inactive Nystatin 936307 UNIT/GM External Powder 1 Powder bid for [...] 21 days Refills: 0 Ordered:13-Feb-2015 Dima DURAN, Adalid Sloan MD, Adalid Rebollar Start : 13-Feb-2015 End : 06-Mar-2015 [...] 1 {Each} Refills: 3 Ordered:15-Apr-2015 Dima DURAN, Adalid Sloan MD, Adalid Rebollar Start : 15-Apr-2015 End : 15-Apr-2015 [...] days Quantity: 90 {Tablet} Refills: 0 Ordered:09-Aug-2011 Adalid Pizano MD, MD, Dana M Start : 09-Aug-2011 End : 09-Aug-2011 Discontinued Comments:It is medically nec. for patient to take every day at bedtime. MOHAMUD dispense ninety MEDROL (NIEVES), 4MG (Oral Tablet) 1 (one) Tablet UAD for 0 days Quantity: 1 {Package} Refills: 0 Ordered:08-Jul-2015 Slarb SCAR, Kacey Start : 24-Jun-2015 End : 08-Jul-2015 Discontinued [...] days Quantity: 180 {Tablet} Refills: 3 Ordered:15-Oct-2014 Adalid Pizano MD, MD, Dana M Start : 15-Oct-2014 End : 15-Oct-2014 Discontinued PREMARIN, 0.625MG (Oral Tablet) 1 Tablet daily for 0 days Quantity: 90 {Tablet} Refills: 3 Ordered:09-Aug-2011 Adalid Pizano MD, MD, Dana M Start : 09-Aug-2011 End : 09-Aug-2011 Discontinued SERZONE, 150MG (Oral Tablet) 1 hs for 0 days Refills: 0 Ordered:17-Sep-2008 Prema Lei End : 08-Jul-2006 Discontinued SERZONE, 150MG (Oral Tablet) 2 am [...] cervical.doing every 6 months. george leaving to [place]. reconmmend Dr. romero and i talk to [...] Comments: anticoag for proph because of port 1999, questionable 34 yo PE Status: Inactive as [...] of 04-Jun-2016 WWV V73.21 TAHBSO (Renamed from V-TAHBSO) Comments: due for mammo. colonscopy 01-11 Status: Inactive as of 25-Mar-2014 Yeast infection (B37.9, 112.9) Status: Resolved as of 04-Apr-2017 yeast infection 09-Aug-2011 Comments: under breastpowder keeps away Status: Inactive as of 09-Aug-2011 Yeast infection of the vagina (B37.3, 112.1) Status: Resolved as of 04-Apr-2017 Procedures Procedure Dates Details ZOSTER VACC, [place] (86267) Date: 01-Oct-2016 Cancelled Cholecystectomy Completed GASTRIC BYPASS, OPEN (93704) Completed Comments: 1997, Dr. lindsay did for recurrent pancreatitis, this is what helped her. Hysterectomy; Abdominal Completed JEJUNOSTOMY (58752) Completed Comments: 1995 closed 1997 when had gastric bypass, because of pancreatitis and was tube feed for 2 years Date Value Details 21-Mar-2018 Dexa Bone Density Study Result: Comments: See Note; NOTES: [facility] Imaging Services [address] [place] [address] Dexa Bone Density Study MR#: [id number] Acct: [id number] Name: JOSE J COBIAN Rep #: [id number] : 1955 F 63 From: Bartolome Patel MD PCP: Adalid Pizano MD Status: REG CLI Study: Dexa Bone Density Study Date of Exam: 03/21/18 Exam# [id number] Ordering Dr: Adalid Pizano MD STUDY: D UAL ENERGY X-RAY [...] Bartolome Patel MD at 15:07 EDT Tel [phone], Service support , CC: Adalid Pizano MD Solar Engineer: Signed 21-Mar-2018 SCREENING MAMM (CAD), BILAT Result: Comments: See Note; NOTES: [facility] Imaging Services [address] [place] [address] SCREENING MAMM (CAD), BILAT MR#: [id number] Acct: [id number] Name: JOSE J COBIAN Rep #: [id number] : 1955 F 63 From: Bartolome Patel MD PCP: Adalid Pizano MD Status: [facility] Study: SCREENING MAMM (CAD), BILAT Date of Exam: 03/21/18 Exam# [id number] Ordering Dr: Adalid Pizano MD MAMMOGRAPHY - BILATERAL SCREENING REASON [...] biopsy of a clinically suspicious abno rmality. [id number] Electronically Signed: Bartolome Patel MD at 13:21 EDT Tel [phone], Service support , CC: Adalid Pizano MD Solar Engineer: Signed 07-Nov-2017 Operative Report Result: Comments: See Note; NOTES: [facility] Medical Records Department [address] [place] [address] Operative Report 11/07/17 1027 MR#: [id number] Acct: [id number] Name: JOSE J COBIAN Rep #: [id number] : 1955 62 From: Bubba Romero MD PCP: Adalid Pizano MD Status: REG SDC Y Location: [place] [address] Problem List (1) Disc disease, degenerative, lumbar [...] Romero MD> Date Bubba Romero MD CC: Adalid Pizano MD; Bubba Romero Signed 07-Nov-2017 L/S Spine Min 4 Views Result: Comments: See Note; NOTES: [facility] Imaging Services [address] [place] [address] L/S Spine Min 4 Views MR#: [id number] Acct: [id number] Name: JOSE J COBIAN Rep #: [id number] : 1955 F 62 From: Bartolome Patel MD PCP: Adalid Pizano MD Status: [facility] Study: L/S Spine Min 4 Views Date of Exam: 11/07/17 Exam# [id number] Ordering Dr: Bubba Romero MD PROCEDURE : Right L3-S1 facet joint block. DATE OF EXAMINATION: November 07, 2017. INDICATION: Female, 62 years old. Low back pain. FLUOROSCOPY TIME (if supplied): (0:10) minutes/seconds Intraoperative imaging prov ided for right L3-S1 facet joint block. RAD/L/S Spine Min 4 Views IMPRESSION: Intraoperative imaging provided for right L3-S1 facet joint block. Electronically Signed: Bratolome Patel MD at 11:01 EDT Tel [phone], Service support , CC: Adaild Pizano MD; Bubba Romero Solar Engineer: Signed 04-Oct-2017 Cardiology Visit Report Result: Comments: See Note; NOTES: [facility] [address] [place] [address] OFFICE VISIT Date of Service: 10/03/17 MR#: [id number] Acct: [id number] Name: JOSE J COBIAN Rep #: [id number] : 1955 Provider: Chanel Shaw Age/Sex: 62/F Location: [facility] Status: Signed HPI HPI Details: JOSE J COIBAN, is a 62 F who presents to [...] Intake Visit Reasons: NOT SEEN SINCE 05/2016 Sterilization Technician Required: No Accompanied by: Is patient in [...] mg PO DAILY@0800 10/20/15 [History Confirmed 10/03/17] [place] codone Bitart/Apap 5-325 [[place] 5/325] 1 tab PO Q4H PRN PRN [...] infarction beginning age 61's, has had several SD's CAD (co ronary artery disease) history of [...] ___ (if applicable) Eladio Cooper MD CC: Adalid Pizano MD 05-Sep-2017 Operative Report Result: Comments: See Note; NOTES: [facility] Medical Records Department [address] [place] [address] Operative Report 09/05/17 0944 MR#: [id number] Acct: [id number] Name: JOSE J COBIAN Rep #: [id number] : 1955 62 From: Bubba Romero MD PCP: Adalid Pizano MD Status: REG [facility] Y Location: [place] [address] Problem List (1) Lumbosacral spondylosis Status: Chronic [...] Romero MD> Date Bubba Romero MD CC: Adalid Pizano MD; Bubba Romero Signed 04-Sep-2017 L/S Spine Min 4 Views Result: Comments: See Note; NOTES: [facility] Imaging Services [address] [place] [address] L/S Spine Min 4 Views MR#: [id number] Acct: [id number] Name: JOSE J COBIAN Rep #: [id number] : 1955 F 62 From: Bartolome Patel MD PCP: Adalid Pizano MD Status: [facility] Study: L/S Spine Min 4 Views Date of Exam: 09/05/17 Exam# [id number] Ordering Dr: Bubba Romero MD PROCEDURE : [...] Bartolome Patel MD at 9:02 EST Tel [phone], Service support , CC: Adalid Pizano MD; Bubba Romero Solar Engineer: Signed 08-Aug-2017 Operative Report Result: Comments: See Note; NOTES: [facility] Medical Records Department [address] [place] [address] Operative Report 08/08/17 1408 MR#: [id number] Acct: [id number] Name: JOSE J COBIAN Rep #: [id number] : 1955 62 From: Bubba Romero MD PCP: Adalid Pizano MD Status: [facility] Y Location: [facility] Problem List (1) Lumbosacral radiculopathy Status: Chronic [...] Romero MD> Date Bubba Romero MD CC: Adalid Pizano MD; Bubba Romero Signed 08-Aug-2017 Lumbar Spine 2 or 3 Views Result: Comments: See Note; NOTES: [facility] Imaging Services [address] [place] [address] Lumbar Spine 2 or 3 Views MR#: [id number] Acct: [id number] Name: JOSE J COBIAN Rep #: [id number] : 1955 F 62 From: Bartolome Patel MD PCP: Adalid Pizano MD Status: [facility] Study: Lumbar Spine 2 or 3 Views Date of Exam: 08/08/17 Exam# [id number] Ordering Dr: Bubba Romero MD P ROCEDURE: [...] Bartolome Patel MD at 11:32 EST Tel [phone], Service support , CC: Adalid Pizano MD; Bubba Romero Solar Engineer: Signed 09-May-2017 Operative Report Result: Comments: See Note; NOTES: [facility] Medical Records Department [address] [place] [address] Operative Report 05/09/17 1348 MR#: [id number] Acct: [id number] Name: JOSE J COBIAN Rep #: [id number] : 1955 62 From: Bubba Romero MD PCP: Adalid Pizano MD Status: [facility] Y Location: [place] [address] Report of Operation Date of Procedure: 05/09/17 [...] Romero MD> Date Bubba Romero MD CC: Adalid Pizano MD; Bubba Romero Signed 09-May-2017 Fluor Guidance for Spine Inj Result: Comments: See Note; NOTES: [facility] Imaging Services [address] [place] [address] Fluor Guidance for Spine Inj MR#: [id number] Acct: [id number] Name: JOSE J COBIAN Rep #: [id number] : 1955 F 62 From: Bartolome Patel MD PCP: Adalid Pizano MD Status: [facility] Study: Fluor Guidance for Spine Inj Date of Exam: 05/09/17 Exam# [id number] Ordering Dr: Bubba Romero MD PROCEDURE: Caudal [...] Bartolome Patel MD at 14:03 EST Tel [phone], Service support , CC: Adalid leigh MD; Bubba Romero Solar Engineer: Signed 29-Apr-2017 L/S Spine Min 4 Views Result: Comments: See Note; NOTES: [facility] Imaging Services [address] [place] [address] L/S Spine Min 4 Views MR#: [id number] Acct: [id number] Name: JOSE J COBIAN Rep #: [id number] : 1955 F 62 From: Feliberto Sim MD PCP: Adalid Pizano MD Status: REG CLI Study: L/S Spine Min 4 Views Date of Exam: 04/29/17 Exam# [id number] Ordering Dr: Lizeth Sanches STUDY: X-RAY - [...] , Service support , CC: Lizeth Sanches; Adalid Pizano MD Solar Engineer: Signed 21-Mar-2017 Operative Report Result: Comments: See Note; NOTES: [facility] Medical Records Department [address] [place] [address] Operative Report 03/21/17 0841 MR#: [id number] Acct: [id number] Name: JOSE J COBIAN Rep #: [id number] : 1955 62 From: Bubba Romero MD PCP: Adalid Pizano MD Status: [facility] Y Location: [facility] Problem List (1) Cervical spine degeneration Status: [...] Romero MD> Date Bubba Romero MD CC: Adalid Pizano MD; Bubba Romero Signed 21-Mar-2017 Cerv Spine 4 or 5 Views Result: Comments: See Note; NOTES: [facility] Imaging Services [address] [place] [address] Cerv Spine 4 or 5 Views MR#: [id number] Acct: [id number] Name: JOSE J COBIAN Rep #: [id number] : 1955 F 62 From: Daniel Manzano DO PCP: Adalid Pizano MD Status: [facility] Study: Cerv Spine 4 or 5 Views Date of Exam: 03/21/17 Exam# [id number] Ordering Dr: Bubba Romero MD STUDY: X-RAY - CERVICAL SPINE REASON FOR EXAM: Female, 62 years old. Cervical block TECHNIQUE: 4 view(s) of the cervical spine were obtained. COMPARISON: None FINDINGS: Face t block was performed with 4 spot fluoroscopy images obtained. Total fluoroscopy time 14.7 seconds. Please see performing physician's report for further details ORD ER #: [id number] RAD/Cerv Spine 4 or 5 Views IMPRESSION: As above Electronically Signed: Daniel Manzano DO at 16:12 EDT Tel , Service support , CC: Adalid Pizano MD; Bubba Romero Solar Engineer: Signed 17-Jan-2017 Operative Report Result: Comments: See Note; NOTES: [facility] Medical Records Department [address] [place] [address] Operative Report 01/17/17 1246 MR#: [id number] Acct: [id number] Name: JOSE J COBIAN Rep #: [id number] : 1955 61 From: Bubba Romero MD PCP: Adalid Pizano MD Status: DEP [facility] Y Location: [facility] Problem List (1) Cervical spine degeneration Status: [...] Romero MD> Date Bubba Romero MD CC: Adalid Pizano MD; Bubba Romero Signed 17-Jan-2017 Cerv Spine 4 or 5 Views Result: Comments: See Note; NOTES: [facility] Imaging Services [address] [place] [address] Verdana 4d Cerv Spine 4 or 5 Views MR#: [id number] Acct: [id number] Name: JOSE J COBIAN #: [id number] : 1955 F 61 From: Tonia Galvan MD PCP: Adalid Pizano MD Status: [facility] Study: Cerv Spine 4 or 5 Views Date of Exam: 01/17/17 Exam# [id number] Ordering Dr: Bubba Romero MD STUDY: X-RAY [...] Tonia Galvan MD at 16:36 EDT Tel [phone], Service support , CC: Adalid Pizano MD; Bubba Romero Solar Engineer: Signed 09-Oct-2016 Abdomen/Pelvis WITH Contrast Result: Comments: See Note; NOTES: [facility] Imaging Services [address] [place] [address] Shiradaolvin 4d Abdomen/Pelvis WITH Contrast MR#: [id number] Acct: [id number] Name: VIRAJ COBIAN Rep #: [id number] : 1955 F 61 From: Enrike Peres PCP: Adalid Pizano MD Status: REG CLI Study: Abdomen/Pelvis WITH Contrast Date of Exam: 10/09/16 Exam# [id number] Ordering Dr: Adalid Pizano MD STUDY: CT ABDOMEN AND PELVIS [...] at 9:47 EDT Tel , Service support [phone], CC: Adalid Pizano MD Solar Engineer: Signed 23-Aug-2016 Operative Report Result: Comments: See Note; NOTES: [facility] Medical Records Department [address] [place] [address] Operative Report MR#: [id number] Acct: [id number] Name: JOSE J COBIAN Rep #: [id number] : 1955 61 From: Bubba Romero MD PCP: Adalid Pizano MD Status: [facility] DATE OF SERVICE: 08/09/2016 DATE OF PROCEDURE: [...] indicated. Bubba Romero MD T: NTS JOB: [id number] 08/23/16 1357 <Electronica y signed by Bubba Roemro MD> Date Bubba Romero MD Cosigner Signature (If Indicated): Date ____ CC: Adalid Pizano MD; Bubba Romero Date Dictated: 08/09/161 Date Transcribed: 08/09/161310 Solar Engineer: Signed 09-Aug-2016 Thoracic Spine 3 Views Result: Comments: See Note; NOTES: [facility] Imaging Services [address] [place] [address] Verdana 4d Thoracic Spine 3 Views MR#: [id number] Acct: [id number] Name: JOSE J COBIAN p #: [id number] : 1955 F 61 From: Azalia Fernandes MD PCP: Adalid Pizano MD Status: [facility] Study: Thoracic Spine 3 Views Date of Exam: 08/09/16 Exam# [id number] Ordering Dr: Bubba Romero MD [facility] DY: X-RAY - THORACIC [...] at 1 2:18 EST , Service support [phone], CC: Adalid Pizano MD; Bubba Romero Solar Engineer: Signed 01-Jun-2016 PT D/C of Non Returning Pt (1) Result: Comments: See Note; NOTES: [facility] Physical Therapy [facility] [address] [place], [place] [address] Fax REHABILITATION SERVICES DISCHAR GE SUMMARY MR#: [id number] Acct: [id number] Name: JOSE J COBIAN Rep #: [id number] [...] appropriate by the physician. Thank you! Mac Aquino PT, <Electronically signed b y Cert. EFREM Dickerson PT, OCS> 06/01/16 0926 CC: Adalid Pizano MD; Bubba Romero VIRGILIO Signed 05-Apr-2016 Operative Report Result: Comments: See Note; NOTES: [facility] Medical Records Department [address] [place] [address] Operative Report MR#: [id number] Acct: [id number] Name: JOSE J COBIAN Rep #: [id number] : 1955 61 From: Bubba Romero MD PCP: Adalid Pizano MD Status: [facility] DATE OF SERVICE: 03/22/2016 DATE OF SERVICE: [...] indicated. Bubba Romero MD T: NTS JOB: [id number] 04/05/16 1351 <E lectronically signed by Bubba Romero MD> Date Bubba Romero MD Cosigner Signature (If Indicated): Date CC: Adalid Pizano MD; Bubba Romero Date Dictated: 03/22/161415 Date Transcribed: 03/22/161415 Solar Engineer: Signed 01-Apr-2016 Echocardiogram Complete Result: Comments: See Note; NOTES: [facility] Cardiovascular Services [address] [place] [address] Echo Complete 04/01/16 1256 MR#: [id number] Acct: [id number] Name: JOSE J COBIAN Rep #: [id number] : 1955 61 From: Antonino Lucas MD Attending Dr: Antonino Lucas MD Status: REG I Ordering Dr: Antonino Lucas MD Date: 04/01/16 Location: [facility] Sex: F C Admitted: Reason [...] Orderi ng Physician: Antonino Lucas Referring Physician: Adalid Pizano Performed By: Cherelle Apple DEZCS, RVT 04/01/16 1515 Date ____ Antonino Lucas MD CC: Adalid Pizano MD; Antonino Lucas MD Date Dictated: 04/01/16 1256 Date Transcribed: 04/01/16 1515 Solar Engineer: Signed 22-Mar-2016 Breast Limited Unilateral Result: Comments: See Note; NOTES: [facility] Imaging Services [address] [place] [address] Verdana 4d Breast Limited Unilateral MR#: [id number] Acct: [id number] Name: JOSE J COBIAN Rep #: [id number] : 1955 F 61 From: Bartolome Patel MD PCP: Adalid Pizano MD Status: REG CLI Study: Breast Limited Unilateral Date of Exam: 03/22/16 Exam# [id number] Ordering Dr: Zack Pizano MD STUDY: ULTRASOUND [...] Bartolome Patel MD at 12:35 EDT Tel [phone], Service support [phone], CC: Adalid Pizano MD Solar Engineer: Signed 19-Mar-2016 Thoracic Spine 3 Views Result: Comments: See Note; NOTES: [facility] Imaging Services [address] [place] [address] Verdana 4d Thoracic Spine 3 Views MR#: [id number] Acct: [id number] Name: JOSE J COBIAN #: [id number] : 1955 F 61 From: Bartolome Patel MD PCP: Adalid Pizano MD Status: [facility] Study: Thoracic Spine 3 Views Date of Exam: 03/22/16 Exam# [id number] Ordering Dr: Bubba Romero MD STUDY: X-RAY [...] Bartolome Patel MD at 14:10 EDT Tel [phone], Service support [phone], CC: Adalid vasquez MD; Bubba Romero Solar Engineer: Signed 19-Mar-2016 Inital Evaluation (1) - PT Result: Comments: See Note; NOTES: [facility] Physical Therapy [facility] [address] [place], [place] [address] Fax REHABILITATION SERVICES HERI [facility] EVALUATION MR#: [id number] Acct: [id number] Name: JOSE J COBIAN Rep #: [id number] : 1955 61 From: Mac Smith Referring Dr.: Bubba Romero Status: REG RCR Insurance: [employer] ARE MEDICARE Patient's Visit Information JOSE J [...] to be FAXED BACK to us at [phone] for Medicare purposes. Please let me know if there are questions or concerns regarding this plan of care. Physician Signature: Date: <Electronically signed by Mac Smith > 03/19/16 1624 CC: Adalid Pizano MD; Bubba Romero DT: CATIA Signed For Medicare only, by signing this I certify the plan of care. Physicians Signature Date 16-Mar-2016 Bilat Scrn Digital AND CAD Result: Comments: See Note; NOTES: [facility] Imaging Services [address] [place] [address] Verdana 4d Bilat Scrn Digital AND CAD MR#: [id number] Acct: [id number] Name: JOSE J COBIAN Rep #: [id number] : 1955 F 61 From: Bartolome Patel MD PCP: Adalid Pizano MD Status: REG CLI Study: Bilat Scrn Digital AND CAD Date of Exam: 03/16/16 Exam# [id number] Ordering Dr: Adalid Pizano MD MAMMOGRAPHY - BILATERAL SCREENING REASON [...] delay biopsy of a clinically suspicious abnormality. [id number] Electronically Signed: Bartolome Patel MD at 15:06 EDT Tel [phone], Service supp ort [phone], CC: Adalid Pizano MD Solar Engineer: Signed 16-Mar-2016 Dexa Bone Density Study (HP) Result: Comments: See Note; NOTES: [facility] Imaging Services [address] [place] [address] Verdana 4d Dexa Bone Density Study (HP) MR#: [id number] Acct: [id number] Name: MAURI COBIAN Rep #: [id number] : 1955 F 61 From: Bartolome Patel MD PCP: Adalid Pizano MD Status: REG CLI Study: Dexa Bone Density Study (HP) Date of Exam: 03/16/16 Exam# [id number] Ordering Dr: Adalid Deng MD STUDY: DUAL ENERGY X-RAY ABSORPTIOMETRY [...] Bartolome Patel MD at 14:15 EDT Tel [phone], Service support [phone], CC: Adalid Pizano MD Solar Engineer: Signed 22-Feb-2016 History and Physical Exam Result: Comments: See Note; NOTES: [facility] Medical Records Department [address] [place] [address] History and Physical 02/22/162054 MR#: [id number] Acct: [id number] Name: JOSE J COBIAN Rep #: [id number] : 1955 60 From: An Dent DO PCP: Adalid Pizano MD Status: REG ER Y Location: ED Problem List (1) Chest pain Status: Acute Qualifiers: Chest pain type: precor dial chest pain Qualifier Code: (R07.2) Precordial pain History of Present Illness Date of Admission: 02/22/16 Chief Complaint: Chest pain The patient is a 60 year old F who was seen in the emergency room at [facility] with a chief complaint of precordial [...] Rash erythromycin base [Erythromycin Base] Allergy (Verified 08/21/16 19:10) Unknown levofloxacin [From Levaquin] [place] rgy [...] - Mediport placement Psychiatric Hist ory: Anxiety 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 Lives: Spouse/ Significant Other Smoking [...] 44.6 L Lymph % (Auto) 46.1 H Solano % (Auto) 6.9 Eos % (Auto) 2.0 [...] DO Cosigner Signature (if applicable): Date CC: Adalid Pizano MD; An Dent DO Signed 22-Feb-2016 Chest 1 View (Portable) Result: Comments: See Note; NOTES: [facility] Imaging Services [address] [place] [address] Verdaolvin 4d Chest 1 View (Portable) MR#: [id number] Acct: [id number] Name: JOSE J COBIAN Rep #: [id number] : 1955 F 60 From: Kim Dsouza MD PCP: Adalid Pizano MD Status: REG ER Study: Chest 1 View (Portable) Date of Exam: 02/22/16 Exam# [id number] Ordering Dr: Mac Chi MD STUDY: X-RAY [...] MD at 19:35 EDT , Service support [phone], CC: Adalid Pizano MD; Mac Chi MD Solar Engineer: Signed 16-Feb-2016 Thoracic Spine 3 Views Result: Comments: See Note; NOTES: [facility] Imaging Services [address] [place] [address] Verdana 4d Thoracic Spine 3 Views MR#: [id number] Acct: [id number] Name: MANGOJOSE J Denise Prather #: [id number] : 1955 F 60 From: Kirk Wall MD PCP: Adalid Pizano MD Status: REG CLI Study: Thoracic Spine 3 Views Date of Exam: 02/16/16 Exam# [id number] Ordering Dr: Adalid Pizano MD ST UDY: X-RAY - THORACIC [...] at 21:50 EDT , S titi support [phone], CC: Adalid Pizano MD Solar Engineer: Signed 03-Nov-2015 Operative Report Result: Comments: See Note; NOTES: [facility] Medical Records Department [address] [place] [address] Operative Report MR#: [id number] Acct: [id number] Name: JOSE J COBIAN Rep #: [id number] : 1955 60 From: Bubba Romero MD PCP: Adalid Pizano MD Status: [facility] DATE OF SERVICE: 10/20/2015 DATE OF [...] indicated. Lidia Romero MD T: NTS JOB: [id number] 11/03/15 1250 <Electronically signed by Bubba Romero MD> Date Bubba Romero MD Co signer Signature (If Indicated): Date CC: Adalid Pizano MD; Bubba Romero Date Dictated: 10/20/15 1351 Date Transcribed: 10/20/15 135 Solar Engineer: Signed 20-Oct-2015 Cerv Spine 2 or 3 Views Result: Comments: See Note; NOTES: [facility] Imaging Services [address] [place] [address] Veradalid 4d Cerv Spine 2 or 3 Views MR#: [id number] Acct: [id number] Name: JOSE J NOWAK Rep #: [id number] : 1955 F 60 From: Bartolome Patel MD PCP: Adalid Pizano MD Status: [facility] Study: Cerv Spine 2 or 3 Views Date of Exam: 10/20/15 Exam# [id number] Ordering Dr: Bubba Romero MD STUDY: X-RAY [...] Bartolome Patel MD at 13:45 EDT Tel [phone], Service support [phone], RAD/Cerv Spine 2 or 3 Views IMPRESSION: Fluoroscopic services provided for right 4 through C7 facet block. Electronically Signed: Bartolome Patel MD at 13:45 EDT Tel [phone], Service support [phone], CC: Adalid Pizano MD; Bubba Romero Solar Engineer: Signed 18-Aug-2015 Operative Report Result: Comments: See Note; NOTES: [facility] Medical Records Department [address] [facility] [address] Operative Report MR#: [id number] Acct: [id number] Name: JOSE J COBIAN Rep #: [id number] : 1955 60 From: Bubba Romero MD PCP: Adalid Pizano MD Status: [facility] DATE OF SERVICE: 08/04/2015 DATE OF SERVICE: [...] d. Bubba Romero MD T: NTS JOB: [id number] 08/18/15 0927 <Electronically signed by Bubba Romero MD> Date Bubba copeland MD Cosigner Signature (If Indicated): Date CC: Adalid Pizano MD; Bubba Romero Date Dictated: 08/04/15 143 Date Transcribed: 08/04/151432 Solar Engineer: Signed 04-Aug-2015 Cerv Spine 2 or 3 Views Result: Comments: See Note; NOTES: [facility] Imaging Services [address] [place] [address] Verdana 4d Cerv Spine 2 or 3 Views MR#: [id number] Acct: [id number] Name: JOSE J NOWAK Denise Rep #: [id number] : 1955 F 60 From: Kirk Wall MD PCP: Adalid Pizano MD Status: [facility] Study: Cerv Spine 2 or 3 Views Date of Exam: 08/04/15 Exam# [id number] Ordering Dr: Osiel Romero MD STUDY: X-RAY [...] MD at 16:28 EST , Service support [phone], RAD/Cerv Spine 2 or 3 Views IMPRESSION: Needle positions as above. Electronically Signed: Kirk Wall MD at 16:28 EST , Service support [phone], CC: Adalid Pizano MD; Bubba Romero Solar Engineer: Signed 02-Jul-2015 Hip min 2 Views Result: Comments: See Note; NOTES: [facility] Imaging Services [address] [place] [address] Verdana 4d Hip min 2 Views MR#: [id number] Acct: [id number] Name: VIRAJ COBIAN Rep #: [id number] : 1955 F 60 From: Tuan Boyd MD PCP: Adalid Pizano MD Status: REG CLI Study: Hip min 2 Views Date of Exam: 07/02/15 Exam# [id number] Ordering Dr: Adalid Pizano MD S TUDY: X-RAY - RIGHT [...] at 12:42 EST Tel , Service support [phone], Fax RAD/Hip min 2 Views IMPRESSION: Normal x-ray examination of the hip. Electronically Signed: Lucius Boyd MD at 12:42 EST Tel , Linnea elizabeth support [phone], CC: Adalid Pizano MD Solar Engineer: Signed 24-Jun-2015 Pelvis 1 or 2 Views Result: Comments: See Note; NOTES: [facility] Imaging Services [address] [place] [address] Verdana 4d Pelvis 1 or 2 Views MR#: [id number] Acct: [id number] Name: JOSE J COBIAN Rep #: [id number] : 1955 F 60 From: Prosper Dumont MD PCP: Adalid Pizano MD Status: REG CLI Study: Pelvis 1 or 2 Views Date of Exam: 06/24/15 Exam# [id number] Ordering Dr: Tuan Pizano MD STUDY: X-RAY [...] at 11:20 EST Tel , Service support [phone], RAD/Pelvis 1 or 2 Views IMPRESS ION: There is narrowing with cortical sclerosis and osteophyte formation of the sacroiliac joint consistent with degenerative osteoarthritic changes. Electronically Signed: Lavell Dumont MD 08/26 at 11:20 EST Tel , Service support [phone], CC: Adalid Pizano MD Solar Engineer: Signed 07-Feb-2015 Chest PA and Lateral Result: Comments: See Note; NOTES: [facility] Imaging Services [address] [place] [address] Radiology Report MR#: [id number] Acct: [id number] Name: JOSE J COBIAN Rep #: [id number] : 1955 F 59 From: Baldemar Torres DO PCP: Adalid Pizano MD Status: REG CLI Study: Chest PA and Lateral Date of Exam: 02/07/15 Exam# [id number] Ordering Dr: Pamella Saavedra STUDY: X-RAY CHES [...] Baldemar Torres DO at 19:14 EDT Tel [phone], Service support [phone], RAD/Chest PA and Lateral IMPRESSION: No acute cardiopulmonary disease or interval change. Electronically Signed: Baldemar TorresDO at 19: 14 EDT Tel [phone], Service support [phone], CC: Pamella Saavedra; Adalid Pizano MD Solar Engineer: Signed 05-Feb-2014 Bilat Scrn Digital & CAD Result: Comments: See Note; NOTES: [facility] Imaging Services [address] [place] [address] Breast Imaging Report MR#: [id number] Acct: [id number] Name: JOSE J COBIAN Rep #: [id number] : 1955 F 58 From: Bartolome Patel MD PCP: Adalid Pizano MD Status: REG CLI Exam# [id number] Ordering Dr: Adalid Pizano MD MAMMOGRAPHY - BILATERAL SCREENING REASON [...] Bartolome Patel MD at 13:16 EDT Tel [phone], Service support [phone], CC: Adalid Pizano MD Solar Engineer: Signed 06-Jun-2013 Abdomen/Pelvis with Contrast Result: Comments: See Note; NOTES: [facility] Imaging Services [address] [place] [address] CAT Scan Report MR#: [id number] Acct: [id number] Name: JOSE J COBIAN Rep #: [id number] : 1955 F 58 From: Tuan Atkins MD PCP: Adalid Pizano MD Status: REG CLI Study: Abdomen/Pelvis with Contrast Date of Exam: 06/06/13 Exam# [id number] Ordering Dr: Adalid Pizano MD STUD Y: CT ABDOMEN AND [...] M.D. at 0:12 EST , Service support [phone], CC: Adalid Pizano MD Solar Engineer: Signed Immunization Name Dates Details Influenza (3 years and up) on: 06-May-2006 Comments: Lot #:Expiration date:Amount given:Route: imSite given:r patriziaGicamila by: galina golden lpn Influenza (3 years [...] Situation Comments: Lives with spouse. 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 sweetheart [...] smoker Vital Signs Date Test Result Details :59 Temperature 97.9 f Comments: Method: Temporal Pulse 78 /min Comments: Pattern: Regular Respiration Rate 18 /min Comments: Pattern: Unlabored O2 SAT 98 % Comments: Room air BP Systolic 140 mm[Hg] Comments: Patient Position: Sitting; Cuff Location: Left Arm; Cuff Size: Standard BP Diastolic 90 mm[Hg] Comments: Patient Position: Sitting; Cuff Location: Left Arm; Cuff Size: Standard Weight 174 lb Height 59 in Body Mass Index Calculated 35.14 kg/m2 Body Surface Area Calculated 1.74 m2 :29 Temperature 98.2 f Comments: Method: Temporal [...] 0.00 cm Results Date Description Value Details :27 Amylase Comments: [facility] [address] [place], [id number] PREMA 73 U/L (Normal) Range: 25-115 39-Rzs-931866:27 CBC-Complete Blood Cnt No Diff Comments: [facility] [address] [place], [place], [address] MPV 9.3 fL (Normal) Range: 6.2-12.0 PLT 266 K/mm3 (Normal) Range: 150-450 RDW SD 46.4 fL (Abnormal) Range: 35.1-43.9 RDW CV 14.2 % (Normal) Range: 11.6-14.6 MCHC 33.3 {g/gl} (Normal) Range: 32-36 MCH 30.2 pg (Normal) Range: 27.0-32.0 MCV 90.5 fL (Normal) Range: 81-99 HCT 39.0 % (Normal) Range: 37-47 HGB 13.0 g/dL (Normal) Range: 12.0-15.0 RBC 4.31 {M/mm3} (Normal) Range: 4.2-5.4 WBC 5.3 K/mm3 (Normal) Range: 4.4-11.0 18-Kcu-731720:27 Comprehensive Metabolic Profil Comments: [facility] [address] [place], [place], [id number] GAP 4 (Abnormal) Range: 5-15 CO2 29.0 mmol/L (Normal) Range: 21.0-32.0 CL 102 mmol/L (Normal) Range: 98-107 K 4.4 mmol/L (Normal) Range: 3.5-5.1 NA 135 mmol/L (Abnormal) Range: 136-145 T BILI 0.30 mg/dL (Normal) Range: 0.20-1.00 ALT 23 U/L (Normal) Range: 13-56 ALK P 82 U/L (Normal) Range: 45-117 AST 14 U/L (Abnormal) Range: 15-37 CA 8.6 mg/dL (Normal) Range: 8.5-10.1 A/G 1.2 {RATIO} (Normal) Range: 0.9-2.4 GLOB 3.2 g/dL (Normal) Range: 2.2-4.2 ALB 3.9 g/dL (Normal) Range: 3.2-5.0 T PROT 7.1 g/dL (Normal) Range: 6.4-8.2 BUN/CRE 20.2 {RATIO} (Abnormal) Range: 10-20 Estimated CRCL 92.00 ml/min (Normal) EST GFR - AA 95 mL/min (Normal) Comments: GFR Calc EST GFR 78 mL/min (Normal) Comments: Non- GFR Calc CREAT,SERUM 0.79 mg/dL (Normal) Range: 0.55-1.02 Comments: The validity of the calculated GFR AND GFRAA in patients over70 years has not been determined. Clinical correlation isessential. BUN 16 mg/dL (Normal) Range: 7-18 GLU 103 mg/dL (Normal) Range: 74-106 Comments: Fasting Glucose result from 100 to 125 mg/dLsuggests IMPAIRED HOMEOSTASIS per A.D.A. criteria.Please note revised GLUCOSE reference range mwnlqffet27/02/2018. 81-Diz-575582:27 Lipase Comments: [facility] [address] [facility] [place], [address] LIPASE 314 U/L (Normal) Range: 73-393 52-Cms-665599:27 Urinalysis, Routine (Dipstick) Comments: How was Urine Obtained? Urine, [facility] Fxozsiwkva3407 [facility] [place], [address] LEUK ESTERASE Negative /ul (Normal) OCCULT BLOOD-UR Negative /ul (Normal) NITRITE UR Negative (Normal) UROBILI Normal mg/dL (Normal) PROT DIPSTX Negative mg/dL (Normal) pH UR 6.5 (Normal) Range: 5.0 - 8.0 SP.GR. DIPSTX 1.010 (Normal) Range: 1.002-1.030 KETONE UR Negative mg/dL (Normal) BILIRUBIN URINE Negative mg/dL (Normal) GLUCOSE, UR Normal mg/dL (Normal) CLARITY Clear (Normal) COLOR Yellow (Normal) 0-Cwx-852489:01 Protime w/INR Fingerstick Comments: [facility] of [address] [place] [address]. [place] [address] INR ISTAT 1.00 (Normal) Comments: Critical Value > 3.5 PROTIME ISTAT 11.9 {SEC} (Normal) Range: 11.9-14.4 Comments: Reference Range 11.9 - 14.4 50-Tny-687361:58 URINE GRETTA CULTURE-IDENTIFICATN Comments: PATIENT NOT FASTINGPERFORMED BY: [facility] [facility] [id number] Information: SRC:UC (43290) Result 1 MUG (Normal) Comments: Mixed urogenital floraGreater than 100,000 colony forming units per mL Urine Culture,Comprehensive Final report (Normal) 90-Ivi-588918:57 Urinalysis, Office (26467) UA - LEUKOCYTE ESTERASE Negative (Normal) UA - NITRITE Negative (Normal) URINE UROBILINGN YANCI TIMED 2 mg/dL (Normal) UA - PROTEIN Negative mg/dL (Normal) UA - PH 7.0 (Normal) UA - BLOOD Negative (Normal) UA - SPECIFIC GRAVITY 1.010 (Normal) UA - KETONES Negative mg/dL (Normal) UA - BILIRUBIN Negative (Normal) UA - GLUCOSE Negative (Normal) 03-Apr-20188:00 Protime w/INR Fingerstick Comments: [facility] Laboratory[facility] of [address] [place], [place] [address] INR ISTAT 1.10 (Normal) Comments: Critical Value > 3.5 PROTIME ISTAT 13.7 {SEC} (Normal) Range: 11.9-14.4 Comments: Reference Range 11.9 - 14.4 80-Fpp-431099:23 Amylase 89 U/L (Normal) Comments: PATIENT NOT FASTINGPERFORMED BY: [facility] Clare6[address] [facility] [id number] Range: 31-124 39-Cun-178798:23 CBC With Differential/Platelet Comments: PATIENT NOT FASTINGPERFORMED BY: [facility] Clare6[address] [facility] [id number] Immature Grans (Abs) 0.0 {x10E3/uL} (Normal) Range: [...] 3.77-5.28 WBC 4.2 {x10E3/uL} (Normal) Range: 3.4-10.8 13-Gry-207657:23 Comp. Metabolic Panel (14) Comments: PATIENT NOT FASTINGPERFORMED BY: [facility] Wbrxox2172 [facility] [id number] ALT (SGPT) 18 [iU]/L (Normal) Range: 0-32 [...] U/L (Abnormal) Comments: PATIENT NOT FASTINGPERFORMED BY: [facility] Zmarwo3314 [facility] [id number] 4:23 Range: 14-72 48-Pdr-515099:23 Urinalysis, Routine Comments: PATIENT NOT FASTINGPERFORMED BY: [facility]6[address] [facility] [id number] Microscopic Examination MICNIP (Normal) Comments: Microscopic not indicated and not performed. Nitrite, Urine Negative (Normal) Urobilinogen,Semi-Qn 1.0 mg/dL (Normal) Range: 0.2-1.0 Bilirubin Negative (Normal) Occult Blood Negative (Normal) Ketones Negative (Normal) Glucose Negative (Normal) Protein Negative (Normal) WBC Esterase Negative (Normal) Appearance Clear (Normal) Urine-Color Yellow (Normal) pH 6.0 (Normal) Range: 5.0-7.5 Specific Sutton 1.020 (Normal) Range: 1.005-1.030 :42 Protime w/INR Fingerstick Comments: [facility] of [address] [place], [place] [address] INR ISTAT 1.00 (Normal) Comments: Critical Value > 3.5 PROTIME ISTAT 12.4 {SEC} (Normal) Range: 11.9-14.4 Comments: Reference Range 11.9 - 14.4 :14 CBC W/Diff, Automated Comments: [facility] [address] [place], [place], [id number] ; fu 6-19 Absolute Lymph 1.62 {X10_3/ul} [...] 4.2-5.4 WBC 4.7 K/mm3 (Normal) Range: 4.4-11.0 78-Tfa-277010:14 Comprehensive Metabolic Profil Comments: [facility] [address] [place], [place], [address] GAP 5 (Normal) Range: 5-15 CO2 29.0 [...] A.D.A. criteria.Please note revised GLUCOSE reference range qlaoxbexd70/02/2018. 42-Szo-152364:14 Ferritin Comments: [facility] [address] [place], [place], [address] FERRITIN 82 ng/mL (Normal) Range: 8-252 04-Ntc-113947:14 Vitamin B12 558 pg/mL (Normal) Comments: [facility] [address] [place], [address] Range: 211-911 05-Sep-20178:07 Protime w/INR Fingerstick Comments: [facility] LaboratoryPoint of [address] [place] [address] INR ISTAT 1.30 (Normal) Comments: Critical Value > 3.5 PROTIME ISTAT 14.9 {SEC} (Abnormal) Range: 11.9-14.4 Comments: Reference Range 11.9 - 14.4 :10 Protime w/INR Fingerstick Comments: [facility] of [address] [place] [address] INR ISTAT 1.10 (Normal) Comments: Critical Value > 3.5 PROTIME ISTAT 13.0 {SEC} (Normal) Range: 11.9-14.4 Comments: Reference Range 11.9 - 14.4 40-Ght-860421:32 Culture, Blood (WB) Comments: [facility] [address] [place], [id number] CUB See Note (Normal) Comments: Has pt arrived? Y Comments: DR. Mello growth in 5 days. 25-Tye-516836:25 CBC W/Diff, Automated Comments: Comments: DR Cui [facility] [address] [place], [address] Absolute Lymph 1.68 {X10_3/ul} (Normal) Range: [...] 4.2-5.4 WBC 3.9 K/mm3 (Abnormal) Range: 4.4-11.0 93-Fdp-240702:25 Culture, Blood (WB) Comments: [facility] [address] [place] [place], [id number] CUB See Note (Normal) Comments: Has pt arrived? Y Comments: DR. Mello growth in 5 days. 14-Zen-383817:25 Erythrocyte Sed Rate Comments: Comments: [facility] [address]etkpzeo[address] [place] [place], [phone] SED RATE 8 mm/h (Normal) Range: 0-30 96-Ftb-997403:25 Ferritin Comments: Comments: [facility] Vonbfczlyz[address] [place], [address] FERRITIN 83 ng/mL (Normal) Range: 8-252 04-Air-257515:25 Vitamin D,25 Hydroxy Comments: Order Date: 07/20/17[facility] [address] [place], [id number] Vitamin D 25-OH 34.6 ng/mL (Normal) Comments: Vitamin D 25(OH) Status Range Deficiency <20 ng/mL (50nmol/L) Insuffciency 20 - 30 ng/mL (50 - 75 nmol/L) Sufficiency 30 - 100 ng/mL (75 - 250 nmol/L) Toxicity >100 ng/mL (>250 nmol/L) 47-Pxk-890997:10 Culture, Urine Comments: [facility] [address] [place], [address] CUUR See Note (Normal) Comments: Order Date: 07/20/17 Comments: DR PIZANO Urine CultureCulture exhibits no growth. 55-Vvn-393004:10 Urinalysis, Complete Comments: Order Date: 07/20/17Has pt arrived? YComments: DR Morales was Urine Obtained? CLEAN [facility] [address] [place], [place], [phone] MUCUS, URINE 0 SEEN {/hpf} (Normal) BACTERIA [...] Yellow (Normal) :48 Protime w/INR Fingerstick Comments: [facility] LaboratoryPoint [place] [address] [place], [place] [address] INR ISTAT 1.10 (Normal) Comments: Critical Value > 3.5 PROTIME ISTAT 13.2 {SEC} (Normal) Range: 11.9-14.4 Comments: Reference Range 11.9 - 14.4 :30 Protime w/INR Fingerstick Comments: [facility] HospitalUsap[address] [place], [place] [address] INR ISTAT 1.10 (Normal) Comments: Critical Value > 3.5 PROTIME ISTAT 12.8 {SEC} (Normal) Range: 11.9-14.4 Comments: Reference Range 11.9 - 14.4 :44 INR Fingerstick Comments: [facility] LaboratoryPoint of [address] [place] [address] INR ISTAT 1.10 (Normal) Comments: Critical Value > 3.5 :44 Prothrombin Time Fingerstick Comments: [facility]Point of [address] [place] [address] PROTIME ISTAT 13.6 {SEC} (Normal) Range: 11.9-14.4 Comments: Reference Range 11.9 - 14.4 :17 HgA1C , Office (41951) HgA1C , Office 5.7 % (Normal) Range: 4.6 - 7.1 :08 Metabolic Panel, Basic Comments: PATIENT NOT FASTINGPERFORMED BY: [employer] [facility] Medical CenterCvgram.meECU Health [facility] Hospital [id number] (58745) Calcium, Serum 9.1 mg/dL (Normal) Range: 8.7-10.3 [...] Glucose, Serum 97 mg/dL (Normal) Range: 65-99 49-Hhx-546402:08 CBC (Auto) (92705) Comments: PATIENT NOT FASTINGPERFORMED BY: [facility] [id number] Platelets 306 {x10E3/uL} (Normal) Range: 150-379 RDW 15.6 % (Abnormal) Range: 12.3-15.4 MCHC 32.9 g/dL (Normal) Range: 31.5-35.7 MCH 28.3 pg (Normal) Range: 26.6-33.0 MCV 86 fL (Normal) Range: 79-97 Hematocrit 35.9 % (Normal) Range: 34.0-46.6 Hemoglobin 11.8 g/dL (Normal) Range: 11.1-15.9 RBC 4.17 {x10E6/uL} (Normal) Range: 3.77-5.28 WBC 4.6 {x10E3/uL} (Normal) Range: 3.4-10.8 :08 URINALYSIS W/O MICRO (77912) Comments: PATIENT NOT FASTINGPERFORMED BY: [facility] Exhale FansECU Health Bertie Hospital [id number] Microscopic Examination MICNIP (Normal) Comments: Microscopic not indicated and not performed. Nitrite, Urine Negative (Normal) Urobilinogen,Semi-Qn 0.2 mg/dL (Normal) Range: 0.2-1.0 Bilirubin Negative (Normal) Occult Blood Negative (Normal) Ketones Negative (Normal) Glucose Negative (Normal) Protein Negative (Normal) WBC Esterase Negative (Normal) Appearance Clear (Normal) Urine-Color Yellow (Normal) pH 6.0 (Normal) Range: 5.0-7.5 Specific Sutton 1.013 (Normal) Range: 1.005-1.030 :08 COMPLEMENT C4 (85934) Comments: PATIENT NOT FASTINGPERFORMED BY: [facility] Ivnpib5610 [facility] TherapeuticsECU Health Bert[facility] Hospital [id number] Complement C4, Serum 16 mg/dL (Normal) Range: 14-44 49-Vyh-884228:08 COMPLEMENT C3 (96354) Comments: PATIENT NOT FASTINGPERFORMED BY: [facility] Exhale FansECU Health [facility] Hospital [id number] Complement C3, Serum 103 mg/dL (Normal) Range: 82-167 23-Sux-386011:08 DNA ANTIBODY-NATV/DBL ST (42283) Comments: PATIENT NOT FASTINGPERFORMED BY: [facility] RecorridoAtrium Health [id number] test code 616944 Anti-DNA (DS) Ab Qn <1 {IU/mL} (Normal) Range: 0-9 Comments: Negative <5 Equivocal 5 - 9 Positive >9 17-Idf-634045:08 Sed Rate Erythrocyte (68472) Comments: PATIENT NOT FASTINGPERFORMED BY: VivoxidSaint Barnabas Behavioral Health CenterDrvgkd3668 [facility] [id number] Sedimentation Rate-Westergren 4 mm/h (Normal) Range: 0-40 12-Mae-976422:08 DESIRAE (ANTINUCLEAR ANTIBODY) Comments: PATIENT NOT FASTINGPERFORMED BY: ForMuneMymich[facility] Clare6370 [facility] [id number] (85059) DESIRAE Direct Negative (Normal) 0-Gnu-109138:04 Prothrombin Time w/INR Comments: [facility] [address] [place], [address] INR 1.5 (Normal) PROTIME 17.8 s (Abnormal) Range: 11.7-14.9 71-Jkm-438024:45 Prothrombin Time w/INR Comments: [facility] [address] [place], [address] INR 3.0 (Normal) PROTIME 30.3 s (Abnormal) Range: 11.7-14.9 :51 Serum Creatinine AND GFR Comments: [facility] [address] [place], [place], [address](765) EST GFR - AA 90 mL/min (Normal) Comments: GFR Calc EST GFR 74 mL/min (Normal) Comments: Non- GFR Calc CREAT,SERUM 0.83 mg/dL (Normal) Range: 0.55-1.02 Comments: The validity of the calculated GFR AND GFRAA in patients over70 years has not been determined. Clinical correlation isessential. :21 LIPASE ([id number]) Comments: PATIENT NOT FASTINGPERFORMED BY: VivoxidSaint Barnab[facility] [id number] [facility] [id number] Lipase, Serum 46 U/L (Normal) Range: 14-72 Comments: Please note reference interval change :21 AMYLASE (73610) Comments: PATIENT NOT FASTINGPERFORMED BY: [facility] Uchard5040 [facility] [place] [id number] Amylase, Serum 65 U/L (Normal) Range: 31-124 7-Srp-064765:21 CALCIFIDIOL (27896) VIT D 25 Comments: PATIENT NOT FASTINGPERFORMED BY: [facility] Ycwgkb2479 [facility] [id number] Vitamin D, 25-Hydroxy 25.8 ng/mL (Abnormal) Range: 30.0-100.0 Comments: Vitamin D deficiency has been defined by the [place] ofMedicine and an Endocrine Society practice guideline as alevel of serum 25-OH vitamin D less than 20 ng/mL (1,2).The Endocrine Society went on to further define vitamin Dinsufficiency as a level between 21 and 29 ng/mL (2).1. IOM ([place] of Medicine). 2010. Dietary reference intakes for calcium and D. [place]: The National Academies Press.2. Candelaria MF, Janey NC, Yolande GROSS, et al. Evaluation, treatment, and prevention of vitamin D deficiency: an Endocrine Society clinical practice guideline. JCEM. 2010; 96(7):1911-30. 0-Kxz-987698:21 Ferritin (60893) Comments: PATIENT NOT FASTINGPERFORMED BY: [facility] Xunrwo7614 [facility] [id number]; fu 10-27 db Ferritin, Serum 10 ng/mL (Abnormal) Range: 15-150 4-Mtf-165270:21 Vitamin B-12 (cyanocobalamin) Comments: PATIENT NOT FASTINGPERFORMED BY: [facility] Btdxua1328 [facility] [id number] (22868) Vitamin B12 1888 pg/mL (Abnormal) Range: 211-946 8-Zea-261961:21 METABOLIC PANEL, COMPREHENSIVE Comments: PATIENT NOT FASTINGPERFORMED BY: [facility] Jzfojg3918 [facility] [id number] (42592) ALT (SGPT) 11 [iU]/L (Normal) Range: 0-32 [...] Glucose, Serum 101 mg/dL (Abnormal) Range: 65-99 3-Eon-700245:21 CBC with auto diff Comments: PATIENT NOT FASTINGPERFORMED BY: [facility] Qyczgr4472 [facility] [id number] Information: CLIENT DRAW (17740) Immature Grans (Abs) 0.0 {x10E3/uL} (Normal) Range: [...] 3.77-5.28 WBC 5.7 {x10E3/uL} (Normal) Range: 3.4-10.8 :14 Prothrombin Time w/INR Comments: [facility] Stcfukdhqf[address] [facility]. [place], [place], [address] INR 1.9 (Normal) Comments: ADDENDA: handled by cardio PROTIME 21.0 s (Abnormal) Range: 11.7-14.9 :57 HEPATIC FUNCTION PANEL Comments: PATIENT NOT FASTINGPERFORMED BY: [facility] Jbcizb7158 [facility] [id number] (41939) ALT (SGPT) 15 [iU]/L (Normal) Range: 0-32 AST (SGOT) 20 [iU]/L (Normal) Range: 0-40 Alkaline Phosphatase, S 114 [iU]/L (Normal) Range: 39-117 Bilirubin, Direct 0.10 mg/dL (Normal) Range: 0.00-0.40 Comments: Please note reference interval change Bilirubin, Total <0.2 mg/dL (Normal) Range: 0.0-1.2 Albumin, Serum 4.9 g/dL (Abnormal) Range: 3.6-4.8 Protein, Total, Serum 7.1 g/dL (Normal) Range: 6.0-8.5 :57 IGA/IGD/IGG/IGM-EACH (88470) Comments: PATIENT NOT FASTINGPERFORMED BY: [facility] Lvniid8753 [facility] [id number] Immunoglobulin E, Total 50 {IU/mL} (Normal) Range: 0-100 Immunoglobulin M, Qn, Serum 43 mg/dL (Normal) Range: 26-217 Immunoglobulin A, Qn, Serum 131 mg/dL (Normal) Range: 87-352 Immunoglobulin G, Qn, Serum 753 mg/dL (Normal) Range: 700-1600 24-Yyo-934518:57 EBV ACUTE PFOF IgG/IgM Comments: PATIENT NOT FASTINGPERFORMED BY: [facility] XDx [facility] [id number] (56847) Interpretation: SPRCS (Normal) Comments: EBV Interpretation Chart . Interpretation [...] (LACTATE DEHYDROGENASE) Comments: PATIENT NOT FASTINGPERFORMED BY: [facility] Bxfjma4472 [facility] [id number] (21612) LDH 191 [iU]/L (Normal) Range: 119-226 16-Sxk-390095:57 HIV-1 & 2 ANTBDY-SNGL SHAWN Comments: PATIENT NOT FASTINGPERFORMED BY: [address] [id number] (69082) HIV Screen 4th Generation wRfx Non Reactive (Normal) 10-Ied-225648:57 HEPATITIS PANEL (02364) Comments: PATIENT NOT FASTINGPERFORMED BY: [address] [id number] Hep C Virus Ab 0.1 {s/co_ratio} (Normal) Range: 0.0-0.9 Comments: Negative: < 0.8 Indeterminate: 0.8 - 0.9 Positive: > 0.9 . The CDC recommends that a positive HCV antibody result be followed up with a HCV Nucleic Acid Amplification test (491079). Hep B Core Ab, IgM Negative (Normal) HBsAg Screen Negative (Normal) Hep A Ab, IgM Negative (Normal) :56 Culture, Blood (WB) Comments: [facility] Oxklwimaka[address] [place], [address] CUB See Note (Normal) Comments: BCNo growth in 5 days. 2-Rwk-497889:56 EBV Acute Prof IgG / IgM Comments: [facility] (refer to report for specific site)refer to report for address and phone number INTERPRETATION Comment (Normal) Comments: EBV Interpretation ChartInterpretation EBV-IgM EA(D)-IgG VCA-IgG EBNA-IgGEBV Seronegative - - - -Early Phase + - - -Acute Primary + +or- + -InfectionConvalescence/Past - +or- + +InfectionReactivated +or- + + +Infection + Antibody Present - Antibody Ab sentPerformed at: [address] [id number] Director: Neo Campos PhD, Phone: [phone] EB-NAg [id number] 136.0 U/mL (Abnormal) Range: 0.0-17.9 Comments: Negative <18.0 Equivocal 18.0 - 21.9 Positive >21.9 EB-VCA [id number] 255.0 U/mL (Abnormal) Range: 0.0-17.9 Comments: Negative <18.0 Equivocal 18.0 - 21.9 Positive >21.9 EB-EA IgG 12572 18.4 U/mL (Abnormal) Range: 0.0-8.9 Comments: Hepatitis A, Hepatitis C and HIV antibodies may cross-reactwith this assay. Negative < 9.0 Equivocal 9.0 - 10.9 Positive >10.9 EB-VCA [id number] 36.1 U/mL (Abnormal) Range: 0.0-35.9 Comments: A second sample should be collected and tested no less than2-4 weeks. Negative <36.0 Equivocal 36.0 - 43.9 Positive >43.9 :56 Ferritin Comments: [address] [place], [address] FERRITIN 34 ng/mL (Normal) Range: 8-252 :56 Vitamin D,25 Hydroxy Comments: [address] [place], [address] Vitamin D 25-OH 29.2 ng/mL (Normal) Comments: Vitamin D 25(OH) Status Range Deficiency <20 ng/mL (50nmol/L) Insuffciency 20 - 30 ng/mL (50 - 75 nmol/L) Sufficiency 30 - 100 ng/mL (75 - 250 nmol/L) Toxicity >100 ng/mL (>250 nmol/L) 5-Kaz-825562:03 INR Fingerstick Comments: [address] [place], [place] [address] INR ISTAT 1.00 (Normal) Comments: Critical Value > 3.5 :03 Prothrombin Time Fingerstick Comments: [address] [place]. [place], [place] [id number] PROTIME ISTAT 12.1 {SEC} (Normal) Range: 11.9-14.4 Comments: Reference Range 11.9 - 14.4 95-Qyq-516521:55 Prothrombin Time w/INR Comments: [facility] Mhqraqxkmc8[address] [place], [place], [address] INR 2.6 (Normal) PROTIME 26.7 s (Abnormal) Range: 11.7-14.9 :44 GRETTA CULTURE-OTHER (55577) Comments: PATIENT NOT FASTINGPERFORMED BY: [facility]CoSaint [facility]abas Behavior[facility] Health CenterPvjyue5466 [facility] [id number] Information: THROAT SRC:TH Result 1 RRF (Normal) Comments: Routine respiratory rajwinder Upper Respiratory Culture Final report (Normal) 28-Yab-749340:31 Rapid Flu (42645 x 2) Influenza A Ag negative (Normal) :31 Rapid Strep Test, Office (23718) Rapid Strep Test, Office Negative (Normal) 76-Ftk-314358:46 Microscopic Examination Comments: PATIENT NOT FASTINGPERFORMED BY: [facility] Lugvpk1880 [facility] [id number] Bacteria Few (Normal) Mucus Threads Present (Normal) Crystal Type Calcium Oxalate (Normal) Crystals Present (Abnormal) Epithelial Cells (non renal) 0-10 {/hpf} (Normal) Range: 0 - 10 RBC 0-2 {/hpf} (Normal) Range: 0 - 2 WBC 0-5 {/hpf} (Normal) Range: 0 - 5 88-Goh-108281:46 URINALYSIS (63755) Comments: PATIENT NOT FASTINGPERFORMED BY: [facility] Adtckj7379 [facility] [id number] Microscopic Examination See below: (Normal) Comments: Microscopic was indicated and was performed. Nitrite, Urine Negative (Normal) Urobilinogen,Semi-Qn 1.0 mg/dL (Normal) Range: 0.2-1.0 Bilirubin Negative (Normal) Occult Blood Negative (Normal) Ketones Negative (Normal) Glucose Negative (Normal) Protein Negative (Normal) WBC Esterase 1+ (Abnormal) Appearance Clear (Normal) Urine-Color Yellow (Normal) pH 6.0 (Normal) Range: 5.0-7.5 Specific Sutton 1.018 (Normal) Range: 1.005-1.030 :46 CBC WITH MANUAL DIFF (42286) Comments: PATIENT NOT FASTINGPERFORMED BY: [facility]6370 [facility] [id number] Immature Grans (Abs) 0.0 {x10E3/uL} (Normal) Range: [...] 3.77-5.28 WBC 4.5 {x10E3/uL} (Normal) Range: 3.4-10.8 89-Kko-517357:46 Ferritin (58149) Comments: PATIENT NOT FASTINGPERFORMED BY: [facility]6370 [facility] [id number] Ferritin, Serum 10 ng/mL (Abnormal) Range: 15-150 61-Dqu-558896:46 Metabolic Panel, Comprehensive Comments: PATIENT NOT FASTINGPERFORMED BY: [facility]6370 [facility] [id number] (92726) ALT (SGPT) 18 [iU]/L (Normal) Range: 0-32 [...] Glucose, Serum 86 mg/dL (Normal) Range: 65-99 06-Gpt-064104:46 AMYLASE (86118) Comments: PATIENT NOT FASTINGPERFORMED BY: [facility] Clare6370 [facility] [id number] Amylase, Serum 81 U/L (Normal) Range: 31-124 48-Qfm-028724:46 LIPASE (56192) Comments: PATIENT NOT FASTINGPERFORMED BY: LabMym[facility] Clare6370 [facility] [id number] Lipase, Serum 79 U/L (Abnormal) Range: 0-59 98-Qaq-718582:33 Prothrombin Time w/INR Comments: Order Date: 03/23/16Order Date: 03/23/16Interface Comments: Reason:Order Date: 03/23/16[facility] Bshxbytqnn[address] [place], [address] INR 2.0 (Normal) PROTIME 22.3 s (Abnormal) Range: 11.7-14.9 54-Eqy-816824:36 Prothrombin Time w/INR Comments: [facility] Ik[address] [place], [address] INR 1.4 (Normal) PROTIME 17.1 s (Abnormal) Range: 11.7-14.9 11-Tlu-387326:20 Prothrombin Time w/INR Comments: Order Date: 05/11/16Order Info: 6301-6 - *PT/INR - Standing OrderComments: Standing Order-Reason:Order Date: 05/11/16Order Info: 6301-6 - *PT/INR - Standing OrderComments: Standing Order- Reason:[facility] [address] [place], [address] INR 1.2 (Normal) PROTIME 14.8 s (Normal) Range: 11.7-14.9 9-Kfp-076108:50 Prothrombin Time w/INR Comments: Order Date: 05/11/16Order Info: 6301-6 - *PT/INR - Standing OrderComments: Standing Order-Reason:Order Date: 05/11/16Order Info: 6301-6 - *PT/INR - Standing OrderComments: Standing Order-Reason:Order Da te: 05/11/16Order Info: 6301-6 - *PT/INR - Standing OrderComments: Standing Order-Reason:[facility] [address]jrls[address] [place], [id number] INR 1.2 (Normal) PROTIME 15.1 s (Abnormal) Range: 11.7-14.9 04-Jun-20160:00 Culture, Nose Comments: [facility] Ymgtucfqci1414 [address] [place], [address] CUN See Note (Normal) Comments: Comments: NARESGram StainGram Stain Rare White Blood Cells 1+ Epithelial cells 4+ Gram positive rods Nasoph. CultNo Haemophilus, Streptococcus pneumoniae, beta-hemolytic Streptococcus or Staphylococcus aureus isolated. :00 Culture, Throat Comments: [facility] Uhahbfbhxi5[address] [place], [place], [address] CUT See Note (Normal) Comments: Comments: NARESCulture, ThroatNo Haemophilus, Streptococcus pneumoniae, beta-hemolytic Streptococcus or Staphylococcus aureus isolated. 48-Czx-298828:05 Rapid Flu (07575 x 2) Influenza A Ag neg (Normal) :45 CBC W/Diff, Automated Comments: Order Date: 03/18/16Order Date: 03/18/16[facility] Yxwitdwedf87[address] [place], [place], [address] Absolute Lymph 2.95 {X10_3/ul} (Normal) Range: 0.83-4.51 [...] 1'CKMB' Serial Specimen #1, #2 or #3? [address] [place] [address] Egveqyzfid6[address] [place], [place], [address] CKRI 3.2 % (Abnormal) Range: 0.0-1.4 Comments: RELATIVE INDEX >1.5% IS PRESUMPTIVELY POSITIVE CPKMB 1.8 ng/mL (Normal) Range: 0.0-5.0 Comments: CK-MB and RI Interpretation MB Relative Index Non-AMI <or= 5 NA Indeterminate > 5 <or= 4 AMI > 5 > 4 CPK TOTAL 57 U/L (Normal) Range: 26-192 :45 Erythrocyte Sed Rate Comments: Order Date: 03/18/16Order Date: 03/18/16[facility] Egsednvfdz5763 [address] [place], [place], [address] SED RATE 1 mm/h (Normal) Range: 0-30 :45 Myoglobin, Serum Comments: Order Date: 03/18/16[facility] (refer to report for specific site)refer to report for address and phone number Myoglobin, Ser 23 ng/mL (Abnormal) Range: 25-58 Comments: Performed at: - [facility] [address] [id number] Director: Neo Campso PhD, Phone: [phone] Troponin-I Comments: Order Date: 03/18/16TROP ADDED 03/19/16Order Date: 03/18/16'TROP' Serial specimen #1, #2, #3, or #4: 1'CKMB' Serial Specimen #1, #2 or #3? [address] [place] [address] Wghsuppyhx7726 [address] [place], [place], [address] TROPONIN-I < 0.02 ng/mL (Normal) Comments: TROPONIN-I EXPECTED VALUES <0.05 NEGATIVE 0.06 - 0.59 AT RISK OF SD > OR = 0.60 SUGGEST SD 30-Jhs-051365:00 Basic Metabolic Profile (BMP) Comments: 'TROP' Serial specimen #1, #2, #3, or #4: 1[facility] Wnhfnjkcya5981 [place], [address] GAP 6 (Normal) Range: 5-15 CO2 26.0 [...] 7-18 GLU 101 mg/dL (Normal) Range: 70-110 98-Xwz-969161:00 CBC W/Diff, Automated Comments: [facility] Eraegmxaki1252 [place], [address] Absolute Lymph 2.27 {X10_3/ul} (Normal) Range: 0.83-4.51 [...] 4.2-5.4 WBC 4.9 K/mm3 (Normal) Range: 4.4-11.0 65-Nod-392158:00 Lipase Comments: 'TROP' Serial specimen #1, #2, #3, or #4: [address] [place] [address] Tytctnkyjd3832 [place], [place], [address] LIPASE 351 U/L (Normal) Range: 73-393 09-Bul-559451:00 Liver Profile Comments: 'TROP' Serial specimen #1, #2, #3, or #4: [address] [place] [address] Bfbwxovija2813 [place], [place], [address] D BILI 0.15 mg/dL (Normal) Range: 0.00-0.30 T BILI 0.30 mg/dL (Normal) Range: 0.20-1.00 ALT 23 U/L (Normal) Range: 12-78 ALK P 81 U/L (Normal) Range: 50-136 AST 24 U/L (Normal) Range: 15-37 GLOB 2.8 g/dL (Normal) Range: 2.3-3.5 ALB 4.0 g/dL (Normal) Range: 3.4-5.0 T PROT 6.8 g/dL (Normal) Range: 6.4-8.2 14-Chf-885628:00 Troponin-I Comments: 'TROP' Serial specimen #1, #2, #3, or #4: [address] [place] [address] [address]ilz[address]sh[address] [place], [place], [address] TROPONIN-I < 0.02 ng/mL (Normal) Comments: TROPONIN-I EXPECTED VALUES <0.05 NEGATIVE 0.06 - 0.59 AT RISK OF SD > OR = 0.60 SUGGEST SD 18-Fap-902356:08 Osmolality, Urine Comments: Order Date: 02/16/16[facility] pt arrived? [facility] [address] [place], [address] OSMOLALITY,UR 310 {mOsm/KG} (Normal) Comments: OSMOLALITY URINE REFERENCE INTERVALS 24-hour Urine 300 - 900 mOsm/kg Random Urine 50 - 1400 mOsm/kg After 12 Hr fluid restriction >850 mOsm/kg 21-Sif-192155:50 Amylase Comments: [facility] [address]cxirw[address] [place], [place], [address] PREMA 80 U/L (Normal) Range: 25-115 44-Bbd-077194:50 CBC W/Diff, Automated Comments: [facility] [address]ssiobujn[address] [place], [place], [address] Absolute Lymph 1.51 {X10_3/ul} (Normal) Range: 0.83-4.51 [...] 4.2-5.4 WBC 4.3 K/mm3 (Abnormal) Range: 4.4-11.0 13-Npe-702684:50 Comprehensive Metabolic Profil Comments: [facility] Aqjpasbcjr8[address] [place], [place], [address] GAP 6 (Normal) Range: 5-15 CO2 28.0 [...] 7-18 GLU 98 mg/dL (Normal) Range: 70-110 83-Tao-079785:50 Lipase Comments: [facility] Iomqphqkit47[address] [place], [address] LIPASE 424 U/L (Abnormal) Range: 73-393 91-Yxj-569075:50 Osmolality, Serum Comments: [place] [address] [address] [place], [address] OSMOLALITY,SER 275 {mOsm/KG} (Normal) Range: 275-295 41-Dha-927334:50 Vitamin B12 489 pg/mL (Normal) Comments: [address] [place], [address] ; will review on 02/19 Range: 211-911 84-Yvn-222805:50 Vitamin D,25 Hydroxy Comments: [place] [address] [address] [place], [address] Vitamin D 25-OH 37.6 ng/mL (Normal) Comments: Vitamin D 25(OH) Status Range Deficiency <20 ng/mL (50nmol/L) Insuffciency 20 - 30 ng/mL (50 - 75 nmol/L) Sufficiency 30 - 100 ng/mL (75 - 250 nmol/L) Toxicity >100 ng/mL (>250 nmol/L) :00 Ferritin Comments: [address] [place], [address] FERRITIN 13 ng/mL (Normal) Range: 8-252 :00 Lipid Profile Comments: [address] [place], [address] VLDL 28 mg/dL (Normal) Range: 5-40 [...] 200-240 mg/dL Borderline >240 mg/dL High Risk 4-Xpe-846361:40 CBC W/Diff, Automated Comments: Order Date: 09/08/15Has pt arrived? [facility] Qjtbafopks[address] [place], [place], [address] Absolute Lymph 1.80 {X10_3/ul} (Normal) Range: 0.83-4.51 [...] 4.2-5.4 WBC 4.4 K/mm3 (Normal) Range: 4.4-11.0 :40 Comprehensive Metabolic Profil Comments: Order Date: 09/08/15Has pt arrived? [facility] [address]qfffwedi4319 [place], [address] GAP -1 (Abnormal) Range: 5-15 CO2 30.0 [...] 7-18 GLU 97 mg/dL (Normal) Range: 70-110 :16 Amylase Comments: [facility] [address]evflezzlm[address] [place], [address] PREMA 95 U/L (Normal) Range: 25-115 :16 Lipase Comments: [facility] [address] [place], [address] LIPASE 568 U/L (Abnormal) Range: 73-393 4-Tcj-638541:29 Influenza A&B Viral Comments: PATIENT NOT FASTINGPERFORMED BY: [facility] X[facility]x [facility] [id number] Information: SRC:NOS [id number] Culture (71284) Viral Culture,Rapid,Influenza FLUABN (Normal) Comments: Negative:No Influenza A or B detected. 5-Lzz-764830:49 Rapid Flu (28505 x 2) Influenza A Ag neg (Normal) :01 CBC (Auto) (66003) Comments: now and in six months (approximately); PATIENT WAS FASTINGPERFORMED BY: [employer]70 [facility] [id number] Information: [id number], 886000 Platelets 357 {x10E3/uL} (Normal) Range: 150-379 RDW 14.6 % (Normal) Range: 12.3-15.4 MCHC 34.1 g/dL (Normal) Range: 31.5-35.7 MCH 29.8 pg (Normal) Range: 26.6-33.0 MCV 88 fL (Normal) Range: 79-97 Hematocrit 37.0 % (Normal) Range: 34.0-46.6 Hemoglobin 12.6 g/dL (Normal) Range: 11.1-15.9 RBC 4.23 {x10E6/uL} (Normal) Range: 3.77-5.28 WBC 5.7 {x10E3/uL} (Normal) Range: 3.4-10.8 :01 Metabolic Panel, Basic Comments: now; PATIENT WAS FASTINGPERFORMED BY: [place] [employer] [facility] [id number] (33211) Calcium, Serum 9.1 mg/dL (Normal) Range: 8.7-10.2 [...] Glucose, Serum 102 mg/dL (Abnormal) Range: 65-99 29-Kwk-588264:01 CALCIFIDIOL (09509) VIT D 25 Comments: now and in six months (approximately); PATIENT WAS FASTINGPERFORMED BY: [facility]EC[facility] [id number] Vitamin D, 25-Hydroxy 32.8 ng/mL (Normal) Range: 30.0-100.0 Comments: Vitamin D deficiency has been defined by the [place] ofMedicine and an Endocrine Society practice guideline as alevel of serum 25-OH vitamin D less than 20 ng/mL (1,2).The Endocrine Society went on to further define vitamin Dinsufficiency as a level between 21 and 29 ng/mL (2).1. IOM ([place] of Medicine). 2010. Dietary reference intakes for calcium and D. [place]: The National Academies Press.2. Candelaria MF, Janey NC, Yolande GROSS, et al. Evaluation, treatment, and prevention of vitamin D deficiency: an Endocrine Society clinical practice guideline. JCEM. 2010; 96(7):1911-30. 9-Cyl-178160:06 Sputum Culture (79576) Comments: PATIENT NOT FASTINGPERFORMED BY: PeopleString70 [facility] [id number] Information: [id number] Result 1 RRF (Normal) Comments: Routine respiratory rajwinder Lower Respiratory Culture Final report (Normal) 7-Ezl-567589:12 Rapid Flu (52949 x 2) Influenza A Ag neg a and b (Normal) 54-Gqp-415825:01 Urinalysis, Office (14736) UA - LEUKOCYTE ESTERASE Negative (Normal) UA - NITRITE Negative (Normal) URINE UROBILINGN YANCI TIMED Normal mg/dL (Normal) UA - PROTEIN Negative mg/dL (Normal) UA - PH 6.0 (Normal) Comments: 5.5 UA - BLOOD Negative (Normal) UA - SPECIFIC GRAVITY 1.025 (Normal) UA - KETONES Negative mg/dL (Normal) UA - BILIRUBIN Negative (Normal) UA - GLUCOSE Negative (Normal) 48-Nph-481073:40 Lipase (68587) Comments: PATIENT NOT FASTINGPERFORMED BY: [facility] Clare6370 [facility] [id number] Lipase, Serum 113 U/L (Abnormal) Range: 0-59 11-Zgx-862785:40 Amylase (78334) Comments: PATIENT NOT FASTINGPERFORMED BY: ForMuneMym[facility] Clare[address] [place] [address] [id number] Information: [id number] Amylase, Serum 104 U/L (Normal) Range: 31-124 0-Tja-677480:54 Sputum Culture (19803) Comments: PATIENT NOT FASTINGPERFORMED BY: [facility]uneM[facility] Clare[address] [place] [address] [id number] Information: SRC: THROAT [id number] Result 1 RRF (Normal) Comments: Routine respiratory rajwinder Lower Respiratory Culture Final report (Normal) 4-Xch-737722:55 Pathology Report Comments: PERFORMED BY: [facility]University [facility] Cyto Jzgtn99676 [facility] [id number] BY: [facility] Dermatopathology Jnwwpmn[address] [id number] Information: [id number] See MATER Comments: Material submitted: .PUNCH BIOPSY [...] IS NEGATIVE FOR FUNGAL FORMS.Pathologist provided ICD-9:692.9CPT .243102, 228505 88-Tts-570954:41 Lipid Panel (55887) Comments: PATIENT WAS FASTINGPERFORMED BY: [facility] Clare6370 [facility] [id number] LDL/HDL Ratio 1.0 {ratio_units} (Normal) Range: 0.0-3.2 [...] - 169 >19 years 100 - 199 80-Kdz-347974:41 Metabolic Panel, Comments: PATIENT WAS FASTINGPERFORMED BY: [facility] Clare6370 [facility] [id number] Information: [id number] Comprehensive (62532) ALT (SGPT) 13 [iU]/L (Normal) Range: 0-32 [...] Glucose, Serum 97 mg/dL (Normal) Range: 65-99 84-Wyb-324107:41 Vitamin B-12 (cyanocobalamin) Comments: PATIENT WAS FASTINGPERFORMED BY: Lab[facility] MessagesSaint Barnabas Behavioral Health CenterAzoqxi7421 [address] [facility] [id number] (66788) Vitamin B12 632 pg/mL (Normal) Range: 211-946 :41 CBC (Auto) (61943) Comments: PATIENT WAS FASTINGPERFORMED BY: LabCoSaint Barnabas Behavioral Health CenterSdtxxm6324 [facility] [id number] Platelets 270 {x10E3/uL} (Normal) Range: 150-379 RDW 13.9 % (Normal) Range: 12.3-15.4 MCHC 32.8 g/dL (Normal) Range: 31.5-35.7 MCH 29.5 pg (Normal) Range: 26.6-33.0 MCV 90 fL (Normal) Range: 79-97 Hematocrit 36.6 % (Normal) Range: 34.0-46.6 Hemoglobin 12.0 g/dL (Normal) Range: 11.1-15.9 RBC 4.07 {x10E6/uL} (Normal) Range: 3.77-5.28 WBC 8.5 {x10E3/uL} (Normal) Range: 3.4-10.8 :41 Ferritin (61944) Comments: PATIENT WAS FASTINGPERFORMED BY: LabCoSaint Barnabas Behavioral Health CenterWzvdnj8882 [facility] [id number] Ferritin, Serum 28 ng/mL (Normal) Range: 15-150 :41 CALCIFIDIOL (41824) VIT D 25 Comments: PATIENT WAS FASTINGPERFORMED BY: [facility] Wtzdwl8876 [facility] [id number] Vitamin D, 25-Hydroxy 24.3 ng/mL (Abnormal) Range: 30.0-100.0 Comments: Vitamin D deficiency has been defined by the [place] ofGuernsey Memorial Hospitalcine and an Endocrine Society practice guideline as alevel of serum 25-OH vitamin D less than 20 ng/mL (1,2).The Endocrine Society went on to further define vitamin Dinsufficiency as a level between 21 and 29 ng/mL (2).1. IOM ([place] of Medicine). 2010. Dietary reference intakes for calcium and D. [place]: The National Academies Press.2. Candelaria MF, Janey NC, Yolande GROSS, et al. Evaluation, treatment, and prevention of vitamin D deficiency: an Endocrine Society clinical practice guideline. JCEM. 2010; 96(7):1911-30. :55 CBC-Complete Blood Cnt No Diff Comments: Test performed at:[facility] [id number] [place], [place] [address] MPV 9.5 fL (Normal) Range: 6.2-12.0 PLT [...] 4.2-5.4 WBC 5.1 K/mm3 (Normal) Range: 4.4-11.0 [id number] Ferritin Comments: Test performed at:[facility] [id number] [place] [address] FERRITIN 23 ng/mL (Normal) Range: 8-252 [id number] Iron Comments: Test performed at:[facility] [id number] [place] [address] IRON 75 ug/dL (Normal) Range: 50-170 96-Iqw-308147:53 CBC W/Diff, Automated Comments: Test performed at:[facility] [address] [place], [place] [address] Absolute Lymph 1.57 {X10_3/ul} (Normal) Range: 0.83-4.51 [...] 4.2-5.4 WBC 3.8 K/mm3 (Abnormal) Range: 4.4-11.0 :53 Comprehensive Metabolic Profil Comments: Test performed at:[facility] [address] [place] [address] GAP 5 (Normal) Range: 5-15 CO2 29.0 [...] 7-18 GLU 99 mg/dL (Normal) Range: 70-110 :53 Ferritin Comments: Test performed at:[facility] V[address]vfqbwjc[address] [place] [address] FERRITIN 13 ng/mL (Normal) Range: 8-252 :53 Lipid Profile Comments: Test performed at:[facility] [address] [place] [address] VLDL 19 mg/dL (Normal) Range: 5-40 [...] 200-240 mg/dL Borderline >240 mg/dL High Risk 82-Fnn-035796:53 Vitamin B12 > 2000 pg/mL (Abnormal) Comments: Test performed at:[facility] [address] [place] [address] Range: 211-911 10-Hbj-244494:46 CBC W/Diff, Automated Comments: Test performed at:[facility] [address] [place] [id number] Absolute Lymph 1.87 {X10_3/ul} (Normal) Range: 0.83-4.51 [...] 4.2-5.4 WBC 4.1 K/mm3 (Abnormal) Range: 4.4-11.0 53-Bck-155984:46 Comprehensive Metabolic Profil Comments: Test performed at:[facility] [address] [place], [place] [id number] GAP 4 (Abnormal) Range: 5-15 CO2 28.0 [...] 7-18 GLU 70 mg/dL (Normal) Range: 70-110 :46 Vitamin D,25 Hydroxy Comments: Test performed at:[facility] [address] [place] [address] Vitamin D 25-OH 30.6 ng/mL (Normal) Comments: Vitamin D 25(OH) Status Range Deficiency <20 ng/mL (50nmol/L) Insuffciency 20 - 30 ng/mL (50 - 75 nmol/L) Sufficiency 30 - 100 ng/mL (75 - 250 nmol/L) Toxicity >100 ng/mL (>250 nmol/L) 82-Ckg-189836:04 CALCIFIDIOL (56131) VIT D Comments: PATIENT NOT FASTINGPERFORMED BY: [facility] Jpypzs7766 [facility] [id number] Information: [id number] 25 Vitamin D, 25-Hydroxy 19.2 ng/mL (Abnormal) Range: 30.0-100.0 Comments: Vitamin D deficiency has been defined by the [place] ofMedicine and an Endocrine Society practice guideline as alevel of serum 25-OH vitamin D less than 20 ng/mL (1,2).The Endocrine Society went on to further define vitamin Dinsufficiency as a level between 21 and 29 ng/mL (2).1. IOM ([place] of Medicine). 2010. Dietary reference intakes for calcium and D. [place]: The National Academies Press.2. Candelaria MF, Janey NC, Yolande GROSS, et al. Evaluation, treatment, and prevention of vitamin D deficiency: an Endocrine Society clinical practice guideline. JCEM. 2010; 96(7):1911-30. 59-Czx-750629:04 Ferritin (07507) Comments: PATIENT NOT FASTINGPERFORMED BY: [facility] Cu[address] [facility] [id number] Ferritin, Serum 34 ng/mL (Normal) Range: 15-150 47-Xhq-684583:05 METABOLIC PANEL, COMPREHENSIVE Comments: PATIENT NOT FASTINGPERFORMED BY: [facility] Aycwan9796 [address] [id number] (28564) ALT (SGPT) 10 [iU]/L (Normal) Range: 0-32 [...] Glucose, Serum 86 mg/dL (Normal) Range: 65-99 18-App-927576:05 CBC WITH MANUAL DIFF Comments: PATIENT NOT FASTINGPERFORMED BY: [facility]CoSaint [facility] CenterTmwuua0070 [facility] [id number] Information: [id number],2ND ORDER NO DRAW F (96791) Immature Grans (Abs) 0.0 {x10E3/uL} (Normal) Range: [...] 3.77-5.28 WBC 5.2 {x10E3/uL} (Normal) Range: 3.4-10.8 :05 CALCIFIDIOL (82600) VIT D 25 Comments: PATIENT NOT FASTINGPERFORMED BY: [facility] Ylewlz4181 [facility] [id number] Vitamin D, 25-Hydroxy 19.6 ng/mL (Abnormal) Range: 30.0-100.0 Comments: Vitamin D deficiency has been defined by the [place] ofMedicine and an Endocrine Society practice guideline as alevel of serum 25-OH vitamin D less than 20 ng/mL (1,2).The Endocrine Society went on to further define vitamin Dinsufficiency as a level between 21 and 29 ng/mL (2).1. IOM ([place] of Medicine). 2010. Dietary reference intakes for [...] 4.2-5.4 WBC 3.3 K/mm3 (Abnormal) Range: 4.4-11.0 6-Lxi-502592:51 CMP GAP 5 (Normal) Range: 5-15 CO2 [...] CHOL 168 mg/dL (Normal) Comments: <200 mg/dL Uympzvmtc793-135 mg/dL Borderline>240 mg/dL High Risk :51 VITD 38.8 mg/mL (Normal) Comments: Vitamin D 25(OH) Status RangeDeficiency <20 ng/mL (50nmol/L)Insuffciency 20 - 30 ng/mL (50 - 75 nmol/L)Sufficiency 30 - 100 ng/mL (75 - 250 nmol/L)Toxicity >100 ng/mL (>250 nmol/L) 69-Hrt-787136:07 Lipase (77418) Comments: PERFORMED BY: [facility] [id number] Lipase, Serum 67 U/L (Abnormal) Range: 0-59 :07 Amylase (86053) Comments: PERFORMED BY: CB IncreaseCardox RoadDublin [place] [id number] Amylase, Serum 92 U/L (Normal) Range: 31-124 78-Idd-820953:11 Urinalysis, Office (14162) UA - LEUKOCYTE ESTERASE Negative (Normal) UA - NITRITE Negative (Normal) URINE UROBILINGN YANCI TIMED Normal mg/dL (Normal) UA - PROTEIN Negative mg/dL (Normal) UA - PH 5 (Abnormal) Comments: 5.5 UA - BLOOD Negative (Normal) UA - SPECIFIC GRAVITY 1.015 (Normal) UA - KETONES 15 mg/dL (Abnormal) UA - BILIRUBIN Small (Normal) UA - GLUCOSE Negative (Normal) 92-Ajl-518085:28 GRETTA CULTURE-OTHER (74750) Comments: PATIENT NOT FASTINGPERFORMED BY: [place] [address]278[address] [facility] [id number] Information: SRC:THRT [id number] Result 1 RRF (Normal) Comments: Routine respiratory rajwinder Upper Respiratory Culture Final report (Normal) 64-Nns-383473:32 Rapid Strep Test, Office (21930) Rapid Strep Test, Office Negative (Normal) 40-Ovt-910106:02 Iron Binding Capacity Comments: PATIENT NOT FASTINGPERFORMED BY: [facility]6370 [facility] [id number] Information: [id number] (TIBC) (64579) Iron Saturation 6 % (Abnormal) Range: 15-55 Iron, Serum 32 ug/dL (Abnormal) Range: 35-155 UIBC 461 ug/dL (Abnormal) Range: 150-375 Iron Bind.Cap.(TIBC) 493 ug/dL (Abnormal) Range: 250-450 40-Ltf-309875:02 Ferritin (09075) Comments: PATIENT NOT FASTINGPERFORMED BY: [facility]6370 [facility] [id number] Ferritin, Serum 7 ng/mL (Abnormal) Range: 15-150 7-Vxn-298977:19 PREMA 80 U/L (Normal) Range: 25-115 9-Dxq-899792:19 B12 386 pg/mL (Normal) Range: 211-911 0-Gfe-283407:19 CMP GAP 7 (Normal) Range: 5-15 CO2 [...] CHOL 181 mg/dL (Normal) Comments: <200 mg/dL Bldascvgp116-015 mg/dL Borderline>240 mg/dL High Risk :19 VITD [...] 7-18 GLU 79 mg/dL (Normal) Range: 70-110 03-Ilx-198672:18 TS Ab SCREEN GEL NEGATIVE (Normal) SCREEN CELL I NEGATIVE (Normal) SCREEN CELL II NEGATIVE (Normal) SCREEN CELL III NEGATIVE (Normal) BLOOD TYPE GEL O POSITIVE (Normal) 16-Mwq-636752:17 Metabolic Panel, Comments: PATIENT NOT FASTINGPERFORMED BY: [facility]CoSaint [facility]ab[facility] Health CenterCcgziq4541 [facility] [id number] Information: [id number] Comprehensive (98565) ALT (SGPT) 13 [iU]/L (Normal) Range: 0-32 [...] s (Normal) Range: 11.9-14.4 :41 VIT D,25 92602 20.3 ng/mL (Abnormal) Range: 30.0-100.0 Comments: Vitamin D deficiency has been defined by the [place] of[place]icine and an Endocrine Society practice guideline as alevel of serum 25-OH vitamin D less than 20 ng/mL (1,2).The Endocrine Society went on to further define vitamin Dinsufficiency as a level between 21 and 29 ng/mL (2).1. IOM ([place] of Medicine). 2010. Dietary reference intakes for calcium and D. [place]: The National Academies Press.2. Candelaria MF, Janey ELIAS, Yolande GROSS, et al. Evaluation, treatment, and prevention of vitamin D deficiency: an Endocrine Society clinical practice guideline. JCEM. 2010; 96(7): 1911-30.Performed at: - [facility] [address] [id number] Director: Yony San MD, Phone: [phone] at: [facility] [id number] Director: Era Tinoco MD, Phone: [phone] 77-Ckl-025486:41 VITD 1,25 83304 44.5 pg/mL (Normal) Range: 10.0-75.0 1-Omx-114424:09 PREMA 87 U/L (Normal) Range: 25-115 1-Lmo-000467:09 CBCD ABSOLUTE NEUT 4.0 3/uL (Normal) Range: [...] Please note:LIPASE revised reference range effective 09. 28-Ucd-756738:05 LIPID Comments: COMMENTS: FAX RESULTS TO DR [...] 200-240 mg/dL Borderline >240 mg/dL High Risk 17-Gxh-891758:54 BILAT SCRN DIGITAL & CAD Radiology Report [...] Patel MD on 11/20/10 0112 Sign by: Bartloome Patel MD 11-Tma-607705:54 DEXA BONE DENSITY STUDY (HP) Radiology Report See Note (Normal) Comments: CLINICAL:Female, 55 years old. The patient is postmenopausal. EXAMINATION:DUAL ENERGY X-RAY ABSORPTIOMETRY / DEXA. TECHNIQUE:Bone Mineral Density (BMD) measurements of lumbar spine and bila teralhipswer e obtained using a [employer] scanner.. COMPARISON:Comparison is made with prior study [...] [email or web address] Dictated on 11/19/10 1420 by Jaci Patel MDranscribed on 11/20/1030 by ITS IMPORTSign by Bartolome Patel MD on 11/20/1030 Sign by: Bartolome Patel MD 1-Vxn-730093:46 DESIRAE DIR SEMI-QL Comments: ORDERED CBC LUZ MARINA FEDANITA ORDERED CMP CBCD CRP ESR VITD HEPB SURF AB CCPHEPB IRINA AG HEPC DESIRAE RA HEPB CORE IGM UAC SCL70 ANTOINE ANTI JOANTICENT AB SSA SSB DNA UAPROTEIN C3 C4 TSH DESIRAE DIRECT 56 AU/mL (Normal) :46 ANEX PANEL Comments: ORDERED CBC LUZ MARINA FEDRCOREY ORDERED CMP CBCD CRP ESR VITD HEPB SURF AB CCPHEPB IRINA AG HEPC DESIRAE RA HEPB CORE IGM UAC SCL70 ANTOINE ANTI JOANTICENT AB SSA SSB DNA UAPROTEIN C3 C4 TSH; appt 11/02/10 YIELD IMPROVEMENT ENGINEER AB 14 AU/mL (Normal) ANTI-TORRES AB 7 AU/mL (Normal) :46 ANTI JO1 Comments: ORDERED CBC LUZ MARINA FEDRCOREY ORDERED CMP CBCD CRP ESR VITD HEPB SURF AB CCPHEPB IRINA AG HEPC DESIRAE RA HEPB CORE IGM UAC SCL70 ANTOINE ANTI JOANTICENT AB SSA SSB DNA UAPROTEIN C3 C4 TSH ANTI LAMAR 7 AU/mL (Normal) :46 ANTI SCL 70 Comments: ORDERED CBC LUZ MARINA FEDRCOREY ORDERED CMP CBCD CRP ESR VITD HEPB SURF AB CCPHEPB IRINA AG HEPC DESIRAE RA HEPB CORE IGM UAC SCL70 ANTOINE ANTI JOANTICENT AB SSA SSB DNA UAPROTEIN C3 C4 TSH ANTI-SCL 70 14 AU/mL (Normal) :46 ANTI-CCP 292862 < 1 {units} (Normal) Comments: ORDERED CBC [...] mg/L (Normal) Comments: ORDERED CBC LUZ MARINA TAYLORRCOREY ORDERED CMP CBCD CRP ESR VITD HEPB [...] 125 (Normal) Comments: ORDERED CBC LUZ MARINA FEDRCOREY ORDERED CMP CBCD CRP ESR VITD HEPB SURF AB CCPHEPB IRINA AG HEPC DESIRAE RA HEPB CORE IGM UAC SCL70 ANTOINE ANTI JOANTICENT AB SSA SSB DNA UAPROTEIN C3 C4 TSH Range: 90-180 Comments: INFCE Result Units: mg/dL Adult :46 COMP C4 1834 19 (Normal) Comments: ORDERED CBC LUZ MARINA FEDRCOREY ORDERED CMP CBCD CRP ESR VITD HEPB SURF AB CCPHEPB IRINA AG HEPC DESIRAE RA HEPB CORE IGM UAC SCL70 ANTOINE ANTI JOANTICENT AB SSA SSB DNA UAPROTEIN C3 C4 TSH Range: 9-36 Comments: INFCE Result Units: mg/dL Adult :46 COMP METABOLIC Comments: ORDERED CBC LUZ MARINA FEDRCOREY ORDERED [...] 0.6-1.0 GLU 91 mg/dL (Normal) Range: 70-110 :46 ESR Comments: ORDERED CBC LUZ MARINA FEDRCOREY ORDERED CMP CBCD CRP ESR VITD HEPB SURF AB CCPHEPB IRINA AG HEPC DESIRAE RA HEPB CORE IGM UAC SCL70 ANTOINE ANTI JOANTICENT AB SSA SSB DNA UAPROTEIN C3 C4 TSH SED RATE 5 mm/h (Normal) Range: 0-30 :46 FERRITIN 9 ng/mL (Normal) Comments: ORDERED CBC LUZ MARINA FEDRCOREY ORDERED CMP CBCD CRP ESR VITD HEPB SURF AB CCPHEPB IRINA AG HEPC DESIRAE RA HEPB CORE IGM UAC SCL70 ANTOINE ANTI JOANTICENT AB SSA SSB DNA UAPROTEIN C3 C4 TSH Range: 8-252 :46 HB CORE [id number] SeeNote (Normal) Comments: ORDERED CBC LUZ MARINA FEDRCOREY ORDERED CMP CBCD CRP ESR VITD HEPB SURF AB CCPHEPB IRINA AG HEPC DESIRAE RA HEPB CORE IGM UAC SCL70 ANTOINE ANTI JOANTICENT AB SSA SSB DNA UAPROTEIN C3 C4 TSH Comments: Result: Negative Performed at: - [facility] [address] [id number] Director: Era Tinoco MD, Phone: [phone] at: - [facility] [id number] Director: Ynoy San MD, Phone: [phone] :46 HBsAg 6510 Comments: ORDERED CBC LUZ [...] of antibody present. :46 HEP C AB 456463 <0.1 (Normal) Comments: ORDERED CBC LUZ MARINA [...] SJOGRENS SSB Comments: ORDERED CBC LUZ MARINA FEDRTimothyVELLANCHATO ORDERED CMP CBCD CRP ESR VITD HEPB [...] C4 TSH Range: 0.358-3.74 :46 VIT D,25 79375 9.3 ng/mL (Abnormal) Comments: ORDERED CBC LUZ MARINA FEDRCOREY ORDERED CMP CBCD CRP ESR VITD HEPB SURF AB CCPHEPB IRINA AG HEPC DESIRAE RA HEPB CORE IGM UAC SCL70 ANTOINE ANTI JOANTICENT AB SSA SSB DNA UAPROTEIN C3 C4 TSH Range: 32.0-100.0 Comments: Recent studies consider the lower limit of 32.0 ng/mL to jayleen threshold for optimal health.Ortiz BW. J Nutr. 2004;135(2):317-22. :10 CBC Comments: COMMENTS: FAX RESULTS TO DR. [...] 4.2-5.4 WBC 9.8 K/mm3 (Normal) Range: 4.4-11.0 02-Mdc-952110:10 FERRITIN 21 ng/mL (Normal) Comments: COMMENTS: FAX RESULTS TO DR. CECI FARIAS DRAWRESULTS FAXED 07/17/10 VLADIMIR SALAMANCA. Range: 8-252 33-Bgj-446724:10 IRON 125 ug/dL (Normal) Comments: COMMENTS: FAX RESULTS TO DR. CECI FARIAS DRAWRESULTS FAXED 07/17/10 VLADIMIR SALAMANCA. Range: 50-170 10-Epo-790380:20 CBC With Differential/Platelet Comments: PERFORMED BY: [facility]6370 [facility] [id number] Baso (Absolute) 0.0 {x10E3/uL} (Normal) Range: 0.0-0.2 [...] 11.7-15.0 WBC 5.3 {x10E3/uL} (Normal) Range: 4.0-10.5 96-Whx-331217:20 Comp. Metabolic Panel (14) Comments: PERFORMED BY: [facility]CoSaint [facility] CenterVgrcjq6341 [facility] [id number] ALT (SGPT) 18 [iU]/L (Normal) Range: 0-40 [...] Serum 14 ng/mL (Normal) Comments: PERFORMED BY: [facility] [id number] 14:20 Range: 13-150 23-Vql-618357:20 Iron and TIBC Comments: PERFORMED BY: [place] [place] [facility] [id number] Iron Saturation 23 % (Normal) Range: 15-55 Iron, Serum 106 ug/dL (Normal) Range: 35-155 UIBC 361 ug/dL (Normal) Range: 150-375 Iron Bind.Cap.(TIBC) 467 ug/dL Range: 250-450 (Abnormal) TSH 1.760 {uIU/mL} Comments: PERFORMED BY: [facility] [id number] :20 (Normal) Range: 0.450-4.500 C DIF TOXIN/AG See Note (Normal) Comments: PT COLLECTED SPECIMEN 12/30 @2300 :45 Comments: C. DIFF ANTIGENS NEGATIVE :45 CUL STOOL/SHIG Comments: PT COLLECTED SPECIMEN 12/30 @2300 CULTURE, STOOL See Note (Normal) Comments: COPY OF REPORT SENT TO [facility]. No Salmonella, Shigella or Yersinia isolated.No [...] Crytosporidium parvum,Cyclospora, or Microsporidia.__ TESTING PERFORMED AT [facility]. ORIGINAL REPORT ONFILE IN LAB CONTAINS [...] Please note:LIPASE revised reference range effective 09. :10 RENAL Comments: COMMENTS: IV THERAPY DRAWING CO2 [...] (Normal) GLU 102 mg/dL (Normal) Range: 70-110 81-Osu-860624:37 OCCULT BLOOD FECES SCREEN (32912) OCCULT BLOOD FECES SCREEN negative (Normal) 87-Jff-982918:03 CBCD,SMEAR DIFF PLT EST SeeNote (Normal) Comments: [...] 4.2-5.4 WBC 4.2 K/mm3 (Abnormal) Range: 4.4-11.0 58-Kad-863994:03 COMP METABOLIC CL 96 mmol/L (Abnormal) Range: [...] 6.4-8.2 GLU 94 mg/dL (Normal) Range: 70-110 67-Une-812110:03 FERRITIN 12 ng/mL (Normal) Range: 8-252 18-Asz-609966:03 IRON 128 ug/dL (Normal) Range: 50-170 25-Cwb-261587:03 LIPID LDL 86 mg/dL (Normal) Range: 0-130 VLDL 18 mg/dL (Normal) Range: 5-40 HDL 79 mg/dL (Normal) Comments: Reference RangeHDL <40 mg/dL Low HDL CholesterolHDL >or= 60 mg/dL High HDL Cholesterol CHOL 183 mg/dL (Normal) Comments: <200 mg/dL Rdfqiwbzn511-500 mg/dL Borderline>240 mg/dL High Risk TRIG 88 mg/dL (Normal) Comments: Serum Triglycerides Reference IntervalNormal <150 mg/dLBorderline high 150 - 199 mg/dLHigh 200 - 499 mg/ dLVery High > or = 500 mg/dL 70-Czc-627953:03 VITAMIN B12 342 pg/mL (Normal) Range: 254-1320 10-Apr-20090:00 FLU A+B DIRECT See Note (Normal) Comments: Negative test results should be confirmed by culture. Order Rapid Viral Culture for Influenzae A+B (033557) if clinically indicated. INFLUENZA ANTIGEN,DIRECT Presumptive NEGATIVE for Influenza A/B Antigen (See Note) 94-Ywl-935167:43 CHEST, PA AND LATERAL Radiology Report See Note (Normal) Comments: Exam Number: [id number] CLINICAL DATAInterstitial lung disease, cough. CHEST PA [...] pneumonia. Possible bronchitis. Reported By: FLORINDA CAMPOS 63-Dar-156288:45 L/S SPINE,MIN 4 VIEWS Radiology Report See Note (Normal) Comments: Exam Number: [id number] CLINICAL PROBLEMLow back pain post fall. LUMBAR [...] and spondylosis. Reported By: AROLDO TILLMAN M.D. 95-Mrq-211643:44 KNEE,4 OR MORE VIEWS Radiology Report See Note (Normal) Comments: Exam Number: [id number] CLINICAL PROBLEMPain both knees post fall. FOUR [...] patellofemoral compartments. Reported By: AROLDO TILLMAN M.D. 29-Zma-487726:44 KNEE,4 OR MORE VIEWS Radiology Report See Note (Normal) Comments: Exam Number: [id number] CLINICAL PROBLEMLeft knee pain status post fall. [...] Order Rapid Viral Culture for Influenzae A+B (577352) if clinically indicated. INFLUENZA ANTIGEN,DIRECT Presumptive NEGATIVE for Influenza A/B Antigen (See Note) 12-Sep-2008 PREMA 66 U/L (Normal) Range: 25-115 12:11 88-Bgv-196313:11 CBCD BASO% 0.2 % (Normal) Range: 0-1 [...] 4.2-5.4 WBC 4.2 K/mm3 (Abnormal) Range: 4.4-11.0 83-Tvh-789637:11 COMP METABOLIC A/G 1.2 {RATIO} (Normal) Range: [...] T PROT 6.9 g/dL (Normal) Range: 6.4-8.2 55-Kin-978199:11 ESR SED RATE 3 mm/h (Normal) Range: 0-30 99-Pcm-676990:11 LIPASE 229 U/L (Normal) Range: 114-286 11-Zdy-209725:11 LIPID CHOL 180 mg/dL (Normal) Comments: <200 [...] mg/dL VLDL 19 mg/dL (Normal) Range: 5-40 39-Lek-061655:11 MG 1.9 mg/dL (Normal) Range: 1.5-2.2 36-Fkf-633226:00 CBCD BASO% 0.3 % (Normal) Range: 0-1 [...] 11.6-14.6 WBC 4.9 K/mm3 (Normal) Range: 4.4-11.0 30-Iub-073678:00 COMP METABOLIC A/G 1.2 {RATIO} (Normal) Range: [...] T PROT 6.7 g/dL (Normal) Range: 6.4-8.2 70-Ngj-533850:00 METHYLM 655562 330 nmol/L (Normal) Range: 73-376 Comments: The reference range for methylmalonic acid has been set at+3sd above the mean for healthy blood bank donors. In theclinical assessment of patients with megaloblastic anemiasa cutoff of +3sd provides gre ater specificity in thediagnosis of the vitamin deficiency states, despite thesacrifice of some sensitivity.Performed At: [facility] [address] [id number] 0-Wyu-374391:55 Lower Respiratory Culture Comments: Clinical Information: SRC:SP PERFORMED BY: [facility] Clare6[address] [facility] [id number] Lower Respiratory Culture Final report (Normal) Result 1 RRF (Normal) Comments: Routine respiratory rajwinder :3 PREMA 62 U/L (Normal) Range: 25-115 6 :36 DESIRAE-D 217299 DESIRAE-DIRECT 23 AU/mL (Normal) Range: 0-99 Comments: [...] {IU/mL} (Normal) Range: 0.0-13.9 Comments: Performed At: [facility]6[address] [place], [place] [id number] :36 TSH 1.76 {uIU/mL} (Normal) Range: 0.34-4.82 :29 HgA1C , Office (37878) HgA1C , Office 5.5 % (Normal) Range: 4.6 - 7.1 :29 Blood Glucose , Office (58623) Blood Glucose , Office 108 (Normal) :51 CHEST, PA AND LATERAL Radiology Report See Note (Normal) Comments: Exam Number: [id number] PA AND LATERAL CHEST HISTORY Being done [...] acute infiltrate. Reported By: JERARDO BEAULIEU M.D. 9-Kfn-337076:57 Rapid Flu (84034 x 2) INFLUENZA IMMUNOASSY DIRECT OPTICAL OBSERV negative (Normal) Comments: aw :57 LIPID CHOL 186 mg/dL (Normal) Comments: <200 [...] mg/dL VLDL 43 mg/dL (Abnormal) Range: 5-40 94-Zdh-045892:57 VITAMIN B12 370 pg/mL (Normal) Range: 211-911 75-Ufr-846107:57 VITD 04732 69.6 (Normal) Comments: Performed At: [place] [address] [place], [place] [id number] 92-Txh-523895:47 CHEST, PA AND LATERAL Radiology Report See Note (Normal) Comments: Exam Number: [id number] PA AND LATERAL CHEST HISTORY Being done [...] perihilar infiltrate. Reported By: JERARDO BEAULIEU M.D. 33-Yvc-418803:08 Upper Respiratory Culture Comments: Clinical Information: SRC: PERFORMED BY: [facility] Clare6[address] [facility] [id number] Result 1 RRF (Normal) Comments: Routine respiratory rajwinder Upper Respiratory Culture Final report (Normal) 2-Jlh-061368:39 CHEST WITHOUT CONTRAST Radiology Report See Note (Normal) Comments: Exam Number: [id number] CT SCAN OF CHEST HISTORYNeoplasm of uncertain [...] PREMA 73 U/L (Normal) Range: 25-115 :01 49-Itz-185809:01 CBCD BASO% 0.3 % (Normal) Range: 0-1 [...] 11.6-14.6 WBC 4.7 K/mm3 (Normal) Range: 4.4-11.0 :01 COMP METABOLIC A/G 1.1 {RATIO} (Normal) Range: [...] T PROT 6.7 g/dL (Normal) Range: 6.4-8.2 : LIPASE 372 U/L (Abnormal) Range: 114-286 :01 [...] mg/dL VLDL 15 mg/dL (Normal) Range: 5-40 :40 BC No growth in 5 days. Comments: COMMENTS: ROOM 12 (Normal) 03-Kjz-660326:20 COMPLETE UA Comments: COMMENTS: ROOM 12HOLD IN [...] WBC 0 SEEN {/hpf} (Normal) Range: 0-5 99-Xcm-718427:10 BMP Comments: COMMENTS: ROOM 12 BUN 8 [...] 3.5-5.1 NA 132 mmol/L (Abnormal) Range: 136-145 22-Sug-618470:10 CBCD Comments: COMMENTS: ROOM 12 BASO% 0.2 [...] (Normal) WBC 10.6 K/mm3 (Normal) Range: 4.4-11.0 96-Bqp-161883:10 LIPASE 212 U/L (Normal) Comments: COMMENTS: ROOM 12 Range: 114-286 43-Jet-335300:10 LIVER Comments: COMMENTS: ROOM 12 ALB 3.4 [...] :59 PTT 36.7 s (Abnormal) Range: 24.6-36.6 : ALT 29 [iU]/L (Abnormal) Range: 30-65 :07 DESIRAE-D 506749 DESIRAE-DIRECT 24 U/mL (Normal) Range: 0-99 Comments: Negative <100 Equivocal 100 - 120 Positive >120Performed At: [facility] Wupcad[address] [place], [place] [id number] At: [facility] [address]uy[address] [place], [place] [id number] :07 See Note (Normal) Comments: CHECK BLOOD CULTURE FOR FUNGUS Comments: NO GROWTH IN 30 DAYSNo yeast or fungus isolated. : C-REACTIVE PROT 5.22 mg/L (Normal) Range: 0.0-6.0 Comments: Test performed using the Dimension C-Reactive ProteinExtended Range assay method. This assay meets the AHA/CDC 2003 recommendations fordetermining patients at high risk for cardiovasculardisease. Reference: High risk CRP >3.0 mg/L : CBC HCT 32.3 % (Abnormal) Range: 37-47 HGB 11.0 g/dL (Abnormal) Range: 12.0-16.0 MCH 30.8 pg (Normal) Range: 27.0-32.0 MCHC 34.1 g/dL (Normal) Range: 32-36 MCV 90.4 fL (Normal) Range: 81-99 PLT 330 K/mm3 (Normal) Range: 150-450 RBC 3.57 {M/mm3} (Abnormal) Range: 4.2-5.4 RDW 14.0 % (Normal) Range: 11.6-14.6 WBC 5.8 K/mm3 (Normal) Range: 4.4-11.0 : HISTOPL 930301 SeeNote (Normal) Comments: Result: Negative :07 RA LATEX 6502 8.6 {IU/mL} (Normal) Range: 0.0-13.9 43-Ujx-900214:24 CHEST, PA AND LATERAL Radiology Report See Note (Normal) Comments: Exam Number: [id number] CHEST, PA AND LATERAL HISTORYFever and cough. COMPARISONNone. FINDINGSThere is an indwelling Pczn-G-Dheavxdj on the right side particularlyin the SVC. The heart, aorta, and media stinum are normal. Lungs areclear. There is no evidence of consolidation, effusion, congestion,or nodules. There are clips in the region of the esophageal hiatus. IMPRESSIONClear lungs. Reported By: AN YOUNG M.D. :0 BC No growth in 5 days. 0 [...] mm/h (Normal) Range: 0-30 :02 Urinalysis, Office (66043) Comments: ABn signed [facility] UA - BILIRUBIN [...] pg/mL (Abnormal) Range: 211-911 Comments: Performed At: [address] [id number] CULTURE, THROAT See Note (Normal) Comments: Normal throat rajwinder isolated. No beta-hemolyticstreptococcus isolated. [id number] Urinalysis, Office ([id number]) UA - BILIRUBIN Negative (Normal) UA - [...] (Abnormal) Range: 136-145 :30 CBC Comments: COMMENTS: SHAMIKAOR 07/19/06Precautions*: NOT APPLICABLE HCT 33.5 % (Abnormal) Range: 37-47 HGB 11.6 g/dL (Abnormal) Range: 12.0-16.0 MCH 30.9 pg (Normal) Range: 27.0-32.0 MCHC 34.5 g/dL (Normal) Range: 32-36 MCV 89.4 fL (Normal) Range: 81-99 PLT 268 K/mm3 (Normal) Range: 150-450 RBC 3.74 {M/mm3} (Abnormal) Range: 4.2-5.4 RDW 14.1 % (Normal) Range: 11.6-14.6 WBC 4.9 K/mm3 (Normal) Range: 4.4-11.0 :30 PRO TIME Comments: COMMENTS: SHAMIKA,OR 07/19/06Precautions*: NOT APPLICABLE INR 1.1 (Normal) PROTIME [...] elsewhere and of unspecified site Planned Observations URINALYSIS, W/ MICRO ([id number])Indication: Chronic pancreatitis On: :30 Request Metabolic Panel, Comprehensive ([id number])Indication: Chronic pancreatitis On: : Request CBC WITH MANUAL DIFF ([id number])Indication: Chronic pancreatitis On: :03 Request LIPASE (53317)Indication: Chronic pancreatitis On: :03 Request AMYLASE (24599)Indication: Chronic pancreatitis On: :03 Request AMYLASE (14341)Indication: Chronic pancreatitis On: 66-Qdy-609991:48 Request LIPASE (80695)Indication: Chronic pancreatitis On: :48 Request METABOLIC PANEL, COMPREHENSIVE (41793)Indication: Chronic pancreatitis On: 41-Kig-386288:47 Request LIPOPROTEIN, BLD, BY NMR ([id number])Indication: Hyperlipidemia On: :47 Request Ferritin (50637)Indication: Iron deficiency anemia due to dietary causes On: 46-Deq-043600:51 Request LIPASE (54137)Indication: Chronic pancreatitis On: 02-Ckk-245978:51 Request AMYLASE (07176)Indication: Chronic pancreatitis On: 17-Ruv-850707:50 Request URINALYSIS (53573)Indication: Chronic pancreatitis On: :50 Request CBC WITH MANUAL DIFF ([id number])Indication: Chronic pancreatitis On: :50 Request Metabolic Panel, Comprehensive (14283)Indication: Chronic pancreatitis On: 10-Clq-709943:50 Request PT (PROTHROMBIN TIME) (27334)Indication: PFO (patent foramen ovale) On: 72-Deo-266609:36 Request Vitamin B-12 (cyanocobalamin) (76845)Indication: S/P gastric bypass On: :21 Request Ferritin (82180)Indication: Iron deficiency anemia due to dietary causes On: 5-Kax-810309:21 Request CBC, Platelets & Auto Diff (93682)Indication: Chronic pancreatitis On: : Request Metabolic Panel, Comprehensive (60439)Indication: Chronic pancreatitis On: 8-Cps-327590: Request CALCIFIDIOL (43434) VIT D 25Indication: Vitamin D deficiency, unspecified On: 94-Vjg-17911:55 Request Comments: re check in 8 weeks Sed Rate Erythrocyte (99499)Indication: Fever On: 27-Xeu-846818:39 Request URINALYSIS (17336)Indication: Fever On: 80-Fyn-054096:33 Request URINE GRETTA CULTURE-IDENTIFICATN (67555)Indication: Fever On: :33 Request CALCIFIDIOL (14356) VIT D 25Indication: Vitamin D deficiency, unspecified On: 96-Tuj-647675:32 Request CBC, Platelets & Auto Diff (14837)Indication: Iron deficiency anemia due to dietary causes On: :32 Request Ferritin (58003)Indication: Iron deficiency anemia due to dietary causes On: 45-Xvx-342217:32 Request GRETTA CULTURE-BLOOD (89616)Indication: Fever On: 86-Wof-501826:30 Request Comments: ONE FROM PORT AND ONE PERIPHERAL CALCIFIDIOL (77649) VIT D 25Indication: Vitamin D deficiency, unspecified On: 17-Jbh-356781:24 Request FERRITIN (33205)Indication: Iron deficiency anemia due to dietary causes On: 85-Pxx-765445:22 Request EBV ANTIBODY VCA/EA 02505 (78706)Indication: Fatigue On: 34-Pbl-090708:31 Request Comments: please do VCA IGM Ferritin (59632)Indication: Iron deficiency anemia due to dietary causes On: 67-Bpm-957197:00 Request CALCIFIDIOL (70793) VIT D 25Indication: Vitamin D deficiency, unspecified On: 81-Jay-115974:00 Request EBV Panel (23814)Indication: Pharyngitis, acute On: 66-Vdv-839410:58 Request Influenza A&B Viral Culture (74070)Indication: Fever On: :34 Request GRETTA CULTURE-OTHER (02594)Indication: Fever On: :33 Request Rapid Strep Test, Office (64780)Indication: Fever On: :18 Request Troponin I (56521)Indication: Chest pain at rest On: 55-Eos-021207:43 Request Comments: pls add to labs already done MYOGLOBIN (10416)Indication: Chest pain at rest On: : Request CPK MB FRACTION (02561)Indication: Chest pain at rest On: : Request Sed Rate Erythrocyte (86595)Indication: Chest pain at rest On: : Request CBC WITH MANUAL DIFF (93886)Indication: Chest pain at rest On: : Request CALCIFEDIOL (48218)Indication: OTHER AND UNSPECIFIED POSTSURGICAL NONABSORPTION On: :12 Request PARATHORMONE (16578)Indication: OTHER AND UNSPECIFIED POSTSURGICAL NONABSORPTION On: :12 Request Magnesium (98417)Indication: OTHER AND UNSPECIFIED POSTSURGICAL NONABSORPTION On: : Request Phosphorus (86138)Indication: OTHER AND UNSPECIFIED POSTSURGICAL NONABSORPTION On: :12 Request IRON ([id number])Indication: OTHER AND UNSPECIFIED POSTSURGICAL NONABSORPTION On: :12 Request FERRITIN (71370)Indication: OTHER AND UNSPECIFIED POSTSURGICAL NONABSORPTION On: :12 Request ZINC, BLOOD (64505)Indication: OTHER AND UNSPECIFIED POSTSURGICAL NONABSORPTION On: :12 Request VITAMIN A (06619)Indication: OTHER AND UNSPECIFIED POSTSURGICAL NONABSORPTION On: :12 Request TSH (31871)Indication: OTHER AND UNSPECIFIED POSTSURGICAL NONABSORPTION On: :12 Request MAGNESIUM (04331)Indication: OTHER AND UNSPECIFIED POSTSURGICAL NONABSORPTION On: :12 Request Folic Acid Serum (27466)Indication: OTHER AND UNSPECIFIED POSTSURGICAL NONABSORPTION On: :12 Request CHROMIUM (40919)Indication: OTHER AND UNSPECIFIED POSTSURGICAL NONABSORPTION On: :12 Request ASSAY, HOMOCYSTINE (05548)Indication: OTHER AND UNSPECIFIED POSTSURGICAL NONABSORPTION On: :12 Request Metabolic Panel, Basic (34445)Indication: Abdominal pain On: :11 Request Comments: do on this tuesday OSMOLALITY URINE (62489)Indication: Abdominal pain On: 12-Omy-819899:11 Request Comments: today in ambulatory OSMOLALITY BLOOD (52110)Indication: Abdominal pain On: :11 Request Comments: today in ambulatory Lipase (35722)Indication: Abdominal pain On: :11 Request Comments: today in ambulatory Amylase (17300)Indication: Abdominal pain On: :11 Request Comments: today in ambulatory CBC, Platelets & Auto Diff (67184)Indication: Abdominal pain On: :11 Request Comments: today in ambulatory Metabolic Panel, Comprehensive (72117)Indication: Abdominal pain On: 05-Sam-572320:10 Request Comments: today in ambulatory AMYLASE (77714)Indication: Abdominal pain On: 7-Noe-863126:12 Request LIPASE (52405)Indication: Abdominal pain On: 4-Nvu-195365:12 Request Ferritin (64621)Indication: Iron deficiency anemia due to dietary causes On: :20 Request Comments: in six months (approximately) Vitamin B-12 (cyanocobalamin) (06433)Indication: Other vitamin B12 deficiency anemia On: 05-Jes-762558:19 Request Comments: in six months (approximately) Lipid Panel (63512)Indication: High blood triglycerides On: :19 Request Comments: in six months (approximately) Metabolic Panel, Comprehensive (70174)Indication: Chronic pancreatitis On: :19 Request Comments: in six months (approximately) Vitamin B-12 (cyanocobalamin) (17613)Indication: Other vitamin B12 deficiency anemia On: :27 Request METABOLIC PANEL, COMPREHENSIVE (24787)Indication: High blood triglycerides On: :19 Request LIPID PANEL (31366)Indication: High blood triglycerides On: :19 Request CBC, Platelets & Auto Diff (37370)Indication: Iron deficiency anemia due to dietary causes On: :15 Request Ferritin (98095)Indication: Iron deficiency anemia due to dietary causes On: :15 Request Iron (73019)Indication: Iron deficiency anemia due to dietary causes On: :29 Request Comments: recheck in 4 weeks pt needs to be fasting Iron Binding Capacity (TIBC) (72619)Indication: Iron deficiency anemia due to dietary causes On: :29 Request Comments: recheck in 4 weeks pt needs to be fasting Ferritin (09511)Indication: Iron deficiency anemia due to dietary causes On: :28 Request Comments: recheck in 4 weeks pt needs to be fasting METABOLIC PANEL, COMPREHENSIVE (53115)Indication: High blood triglycerides On: 89-Ghk-067810:33 Request LIPID PANEL (60512)Indication: High blood triglycerides On: :33 Request CBC (Auto) (22487)Indication: Iron deficiency anemia due to dietary causes On: :33 Request Ferritin (27371)Indication: Iron deficiency anemia due to dietary causes On: 93-Epi-294378:33 Request Vitamin B-12 (cyanocobalamin) (55982)Indication: Other vitamin B12 deficiency anemia On: 05-Izj-477787:32 Request CALCIFIDIOL (81116) VIT D 25Indication: Vitamin D deficiency, unspecified On: 98-Mhy-625364:32 Request CULTURE, SPUTUM (09816)Indication: Cough On: 0-Iwf-032738:36 Request Iron (10769)Indication: Iron deficiency anemia due to dietary causes On: 42-Oqy-717563:53 Request CALCIFIDIOL (69262) VIT D 25Indication: Vitamin D deficiency, unspecified On: 92-Ccg-943251:02 Request CBC (Auto) (12280)Indication: Iron deficiency anemia due to dietary causes On: 1-Omy-795241:49 Request Metabolic Panel, Comprehensive (01235)Indication: Chronic pancreatitis On: 6-Tgf-979794:49 Request Lipid Panel (43043)Indication: High blood triglycerides On: :49 Request Ferritin (98054)Indication: Iron deficiency anemia due to dietary causes On: 4-Pli-762234:48 Request CALCIFEDIOL (87163)Indication: Vitamin D deficiency, unspecified On: :48 Request Vitamin B-12 (cyanocobalamin) (38583)Indication: Other vitamin B12 deficiency anemia On: :47 Request Lipase (77661)Indication: Chronic pancreatitis On: :47 Request Amylase (28521)Indication: Chronic pancreatitis On: :47 Request D-Dimer (33752)Indication: Anemia On: 37-Ior-323038:28 Request Comments: stat Metabolic Panel, Comprehensive (09767)Indication: Anemia On: :16 Request TYPE & SCREEN GEL (61525)Indication: Anemia On: :16 Request CBC with manual diff (80536)Indication: Anemia On: :15 Request Lipase (45928)Indication: Chronic pancreatitis On: :30 Request Amylase (83867)Indication: Chronic pancreatitis On: 05-Tyh-705281:30 Request Ferritin (55649)Indication: Iron deficiency anemia due to dietary causes On: 62-Mhd-011106:28 Request LIPASE (33107)Indication: Chronic pancreatitis On: 3-Mte-991755:21 Request AMYLASE (55288)Indication: Chronic pancreatitis On: 5-Gmp-047087:21 Request Lipase (37306)Indication: Chronic pancreatitis On: 46-Fma-761533:12 Request Amylase (43045)Indication: Chronic pancreatitis On: 84-Vgf-338036:12 Request MICROALBUMIN: CREATININE RATIO (77799) AND (70341)Indication: Chronic pancreatitis On: 99-Sqa-210381:12 Request METABOLIC PANEL, COMPREHENSIVE (59636)Indication: Chronic pancreatitis On: 38-Vgt-685653:12 Request LIPID PANEL (57838)Indication: High blood triglycerides On: 81-Ggc-164656:12 Request CBC WITH MANUAL DIFF (18933)Indication: Chronic pancreatitis On: :12 Request Metabolic Panel, Comprehensive (95677)Indication: Chronic pancreatitis On: 2-Xqp-818430:46 Request Lipase (53237)Indication: Chronic pancreatitis On: :46 Request Amylase (69067)Indication: Chronic pancreatitis On: :46 Request CALCIFIDIOL (07899) VIT D 25Indication: Vitamin D deficiency, unspecified On: :43 Request Ferritin (71543)Indication: Iron deficiency anemia due to dietary causes On: :43 Request CBC (Auto) (26105)Indication: Iron deficiency anemia due to dietary causes On: :43 Request PT (Prothrobim Time) (74595)Indication: AFTERCARE, LONG-TERM USE, ANTICOAGULANTS On: :28 Request Lipase (27847)Indication: Chronic pancreatitis On: : Request Amylase (83115)Indication: Chronic pancreatitis On: :25 Request Metabolic Panel, Comprehensive (82266)Indication: Chronic pancreatitis On: :25 Request CBC (Auto) (28803)Indication: Leukopenia On: :25 Request Lipid Panel (92563)Indication: High blood triglycerides On: :25 Request Iron (72802)Indication: Iron deficiency anemia due to dietary causes On: :23 Request Ferritin (30806)Indication: Iron deficiency anemia due to dietary causes On: 9-Isj-227909:23 Request Vitamin B-12 (cyanocobalamin) (38454)Indication: Other vitamin B12 deficiency anemia On: :23 Request CALCIFIDIOL (03687) VIT D 25Indication: Vitamin D deficiency, unspecified On: :23 Request Lipase (45983)Indication: Chronic pancreatitis On: 3-Bqp-387130:21 Request Amylase (23671)Indication: Chronic pancreatitis On: 1-Opi-613028:21 Request Comments: pls add to labs already drawn Metabolic Panel, Comprehensive (79669)Indication: Chronic pancreatitis On: 8-Kww-574502:07 Request Ferritin (38776)Indication: Iron deficiency anemia due to dietary causes On: 1-Cct-892561:07 Request CBC (Auto) (05931)Indication: Chronic pancreatitis On: 3-Jxy-822350:07 Request LIPID PANEL (40129)Indication: High blood triglycerides On: 0-Klo-205883:15 Request Iron Binding Capacity (TIBC) (55718)Indication: Anemia On: :53 Request Iron (54100)Indication: Anemia On: :53 Request Ferritin (01708)Indication: Anemia On: :53 Request CBC (Auto) (90793)Indication: Anemia On: :53 Request Metabolic Panel, Comprehensive (25914)Indication: Chronic pancreatitis On: :53 Request OVA & PARASITE DIR SMEAR (36556)Indication: Diarrhea On: :37 Request LEUKOCYTE COUNT, FECAL (68511)Indication: Diarrhea On: :37 Request C.Difficile, Stool (40871)Indication: Diarrhea On: :37 Request GRETTA CULTURE-STOOL (55743)Indication: Diarrhea On: 05-Bjl-011010:37 Request Vitamin B-12 (cyanocobalamin) (53830)Indication: Other vitamin B12 deficiency anemia On: 18-Rla-007477:05 Request Iron (54416)Indication: Anemia On: 55-Jjh-566849:05 Request Ferritin (73459)Indication: Anemia On: 92-Xcw-367546:05 Request METABOLIC PANEL, COMPREHENSIVE (71062)Indication: High blood triglycerides On: 07-Qsm-031373:05 Request CBC WITH MANUAL DIFF (48318)Indication: Anemia On: 43-Boj-349639:05 Request LIPID PANEL (77376)Indication: High blood triglycerides On: 55-Mki-451160:04 Request nasal influenza swab (95597) T2Ofrpavpwqz: Unspecified Diagnosis On: 8-Csw-083476:29 Request Rapid Flu (34634 x 2)Indication: Fever On: 9-Neq-617958:44 Request Lipid Panel (04974)Indication: High blood triglycerides On: 22-Fsb-097919:53 Request CBC (Auto) (66181)Indication: Chronic pancreatitis On: 50-Gxs-212770:51 Request Metabolic Panel, Comprehensive (87899)Indication: Chronic pancreatitis On: 23-Wnt-705747:51 Request Ferritin (12194)Indication: Anemia On: 90-Icn-024401:51 Request Iron (50197)Indication: Anemia On: :51 Request Vitamin B-12 (cyanocobalamin) (22572)Indication: Other vitamin B12 deficiency anemia On: 78-Juo-770553:51 Request Lipid Panel (59517)Indication: Malabsorption syndrome On: 10-Hlr-554006:39 Request Sed Rate Erythrocyte (46437)Indication: Chronic pancreatitis On: :35 Request CBC, Platelets & Auto Diff (24471)Indication: Chronic pancreatitis On: :35 Request Magnesium (49012)Indication: Chronic pancreatitis On: :35 Request Lipase (41068)Indication: Chronic pancreatitis On: :35 Request Amylase (67096)Indication: Chronic pancreatitis On: 95-Dnb-395437:35 Request Metabolic Panel, Comprehensive (81548)Indication: Chronic pancreatitis On: 71-Ysc-794121:35 Request CBC (Auto) (72895)Indication: Abdominal pain, acute, generalized On: 76-Owm-306690:29 Request Metabolic Panel, Comprehensive (47637)Indication: Abdominal pain, acute, generalized On: 82-Qun-992498:29 Request Methylmalonic acid, serum 01897Kioszqbqxi: Other vitamin B12 deficiency anemia On: 11-Tcb-765240:29 Request CULTURE, SPUTUM (29973)Indication: Cough On: 6-Vpp-510732:42 Request Lipase (80040)Indication: Acute pancreatitis On: 4-Zde-629366:59 Request Amylase (10375)Indication: Acute pancreatitis On: 1-Wms-500771:59 Request DESIRAE (ANTINUCLEAR ANTIBODY) (70304)Indication: Pain in unspecified joint On: 8-Erm-157977:48 Request C-REACTIVE PROTEIN (85069)Indication: Pain in unspecified joint On: 2-Jzw-809332:48 Request CBC WITH MANUAL DIFF (91891)Indication: Pain in unspecified joint On: 6-Kft-788896:48 Request METABOLIC PANEL, COMPREHENSIVE (15917)Indication: Pain in unspecified joint On: 5-Qaz-459040:48 Request RHEUMATOID FACTOR-QUANT (81505)Indication: Pain in unspecified joint On: 5-Bwp-288971:48 Request SED RATE ERYTHROCYTE (12908)Indication: Pain in unspecified joint On: 5-Aqy-248118:48 Request TSH (22912)Indication: Pain in unspecified joint On: 4-Nme-325997:48 Request GRETTA CULTURE-OTHER (07188)Indication: Pharyngitis, acute On: 60-Kle-642529:12 Request Rapid Strep Test, Office (98045)Indication: Pharyngitis, acute On: 01-Bkl-267526:12 Request Comments: negative VITAMIN D, 1, 25-DIHYDROXY (09170)Indication: Chronic pancreatitis On: 79-Zak-486902:46 Request Vitamin B-12 (cyanocobalamin) (74873)Indication: Other vitamin B12 deficiency anemia On: 32-Lea-881929:43 Request Lipase (26047)Indication: Chronic pancreatitis On: 20-Smi-901858:35 Request Amylase (12540)Indication: Chronic pancreatitis On: 51-Bkk-777992:34 Request CBC (Auto) (55010)Indication: Chronic pancreatitis On: 03-Ssn-160289:34 Request Metabolic Panel, Comprehensive (27309)Indication: Chronic pancreatitis On: 09-Que-250365:34 Request Lipid Panel (57179)Indication: Chronic pancreatitis On: 87-Ynk-227323:34 Request Comments: standing order every 3 months Metabolic Panel, Comprehensive (73681)Indication: Edema On: 18-Bmk-581149:13 Request CBC, Platelets & Auto Diff (54535)Indication: Edema On: 83-Ggj-662055:13 Request PTT (Activated Partial Thromboplastin Time) (33575)Indication: Edema On: 65-Hhv-236430:12 Request PT (Prothrobim Time) (61862)Indication: Edema On: 60-Tss-889734:12 Request Lipase (06533)Indication: pancreatitis On: :32 Request Amylase (58371)Indication: pancreatitis On: :32 Request CBC (Auto) (74082)Indication: pancreatitis On: :32 Request Metabolic Panel, Comprehensive (11923)Indication: pancreatitis On: :32 Request Metabolic Panel, Comprehensive (97191)Indication: Fever On: :57 Request GRETTA CULTURE-BLOOD (06320)Indication: Fever On: :56 Request Comments: one from peripheral GRETTA CULTURE-BLOOD (41343)Indication: Fever On: :56 Request Comments: one from port Sed Rate Erythrocyte (33521)Indication: Fever On: :56 Request CBC, Platelets & Auto Diff (84903)Indication: Fever On: :56 Request Urinalysis, Office (49137)Indication: Fever On: :56 Request GRETTA CULTURE-OTHER (21680)Indication: Fever On: 7-Tha-158939:53 Request Rapid Strep Test, Office (38024)Indication: Fever On: :52 Request CBC, Platelets & Auto Diff (44250)Indication: Chronic pancreatitis On: 7-Qgs-192212:46 Request Lipase (64786)Indication: Chronic pancreatitis On: 5-Nys-786172:46 Request Amylase (34727)Indication: Chronic pancreatitis On: 0-Rbw-112204:46 Request Metabolic Panel, Comprehensive (49654)Indication: Chronic pancreatitis On: 6-Lgw-946042:46 Request FERRITIN (61231)Indication: Anemia On: 6-Wji-863751:22 Request VITAMIN B-12 (CYANOCOBALAMIN) (74429)Indication: Other vitamin B12 deficiency anemia On: 1-Xgz-602090:22 Request LIPASE (44685)Indication: Acute pancreatitis On: :22 Request ALBUMIN SERUM (28803)Indication: Acute pancreatitis On: :22 Request CBC (AUTO) (33264)Indication: Acute pancreatitis On: :21 Request METABOLIC PANEL, BASIC (12029)Indication: Abnormal blood chemistry On: :21 Request Planned Encounters Medical; TIMO 4 Month Fu - On: 01-Sep-2018 13:30 [facility] Dima DURAN, Adalid Pizano MD, Adalid Rebollar Planned Procedures Flu Vaccine (Quadrivalent) On: 31-Mar-2018 Intent 62341Jz: COMFORT Gallegos Comments: Lot #:[id number] date: 7-[birth year]-76Lmacun given:0.5mlRoute: IMSite given:L DltdGiven by: Kumar and ABN signed [employer] SCREENING DIGITAL TOMOSYNTHESIS On: 20-Dec-2017 Intent OF BREAST (82294)By: Adalid Pizano MD, MD, Dana M DEXA SCAN AXIAL SKELETON On: 20-Dec-2017 Intent (24744)By: Adalid Pizano MD, MD, Dana M SCREENING DIGITAL TOMOSYNTHESIS On: 29-Apr-2017 Intent OF BREAST (85580)By: Adalid Pizano MD, MD, Dana M Flu Vaccine (Quadrivalent) On: 29-Apr-2017 Intent 45456Aq: Adalid Pizano MD Comments: lot: [id number]: 12/19/ite/route: L kelin, IMamt: 0.5mlVIS and ABN signed when applicableChelsea, SERVICE RESTORER EMERGENCY Adalid Pizano MD CT - Abdomen & Pelvis (IV On: 01-Oct-2016 Intent Contrast Needed)By: Dima DURAN, Comments: attentinon pancrease follow up on kidney cyst. 07-20 creat 0.76 Adalid Ghosh MD Flu Vaccine (Quadrivalent) On: 17-May-2016 Intent 42730Gf: Adalid Pizano MD Comments: FLUlot: [id number]:11/17site:Lt deltoidroute:IMdose:.5mlDEMICK, MA Adalid Pizano MD Aerosol Treatment (55195)By: On: 27-Apr-2016 Intent Slarb PROGRAM ENGINEER, Kacey DEXA SCAN AXIAL SKELETON On: 09-Mar-2016 Intent (25449)By: Adalid Pizano MD, MD, Dana M MAMMOGRAM, SCREENING, BOTH On: 09-Mar-2016 Intent BREAST (40508)By: Adalid Pizano MD, MD, Dana M DEXA SCAN AXIAL SKELETON On: 15-Jul-2015 Intent (69534)By: BoneAdalid leigh MD, MD, Dana M MAMMOGRAM, SCREENING, BOTH On: 15-Jul-2015 Intent BREAST (38566)By: Adalid Pizano MD, MD, Dana M Aerosol Treatment (91529)By: On: 08-Jul-2015 Intent Pamella Saavedra CNP Aerosol Treatment (24062)By: On: 08-Jul-2015 Intent Slarb PROGRAM ENGINEER, Kacey XR HIP RIGHT COMPLETE (18913)By: On: 30-Jun-2015 Intent Adalid Pizano MD, MD, Comments: right hip Adalid Rebollar Radiology - PelvisBy: Dima On: 24-Jun-2015 Intent Adalid DURAN MD, Dana M Comments: and right hip xray Venous Doppler - RightBy: On: 24-Jun-2015 Intent Adalid Pizano MD, MD, Comments: leg Adalid Rebollar Flu Vaccine (Quadrivalent) On: 15-Apr-2015 Intent 46078Lo: Adalid Pizano MD Comments: lot [id number]: 01/01/2016site/route L kelin, IMamt 0.5mlVIS and ABN signed when applicableChelsea, CMAFM4 Adalid Pizano MD Radiology - ChestBy: Quentin ARGUETA, On: 07-Feb-2015 Intent Adeola Aerosol Treatment (33675)By: On: 07-Feb-2015 Intent Ailyn Aguilar Solu -Medrol Injection, 125 mg On: 05-Feb-2015 Intent (J2930)By: Pamella Saavedra CNP Comments: lot:[id number]:route:IMdose:125MGsite: R glutGiven by: FOX Angeles Solu -Medrol Injection, 125 mg On: 04-Feb-2015 Intent (J2930)By: Pamella Saavedra CNP Aerosol Treatment (63925)By: On: 04-Feb-2015 Intent Pamella Saavedra CNP MAMMOGRAM, SCREENING, BOTH On: 14-Jan-2015 Intent BREAST (28524)By: Adalid Pizano MD, MD, Dana M Prevnar 13 (23033)By: Dima On: 16-Jul-2014 Intent Adalid DURAN MD, Dana M ADMINISTRATION OF INFLUENZA On: 22-Apr-2014 Intent VIRUS VACCINE (G0008)By: Adalid Pizano MD, MD, Dana M FLU VAC, SPLIT, >3 YEARS, On: 22-Apr-2014 Intent INTRAMUSC (80442)By: Dima DURAN, Comments: Lot #:[id number] date:mount given:0.5mlRoute: IMSite given:left deltoid Given by: Adalid Mota MD Phenergan Injection, up to 50 mg On: 12-Dec-2013 Intent (J2550)By: Pamella Saavedra CNP MAMMOGRAM, SCREENING, BOTH On: 25-Sep-2013 Intent BREASTS (31929)By: Adalid Pizano MD, MD, Dana M Eprescribed prescriptions On: 25-Sep-2013 Intent (G8553)By: Adalid Pizano MD, MD, Dana M Aerosol Treatment (61476)By: On: 05-Sep-2013 Intent [address]ella Saavedra CNP CT - Abdomen & Pelvis (IV On: 04-Jun-2013 Intent Contrast Needed)By: Adalid Pizano MD, MD, Dana M DXA, BONE DENSITY, AXIAL On: 04-Jun-2013 Intent SKELETON (51369)By: Dima DURAN, Comments: postmenapausal Adalid Ghosh MD MAMMOGRAM, SCREENING, BOTH On: 04-Jun-2013 Intent BREASTS (84199)By: Adalid Pizano MD, MD, Dana M Pulse Oximetry (09473)By: On: 04-Jun-2013 Intent COMFORT Gallegos Eprescribed prescriptions On: 14-May-2013 Intent (G8553)By: Melba Malloy ELECTROCARDIOGRAM, COMPLETE On: 26-Dec-2012 Intent (ECG) (58300)By: Adalid Pizano MD, MD, Dana M Eprescribed prescriptions On: 26-Dec-2012 Intent (G8553)By: Makenzie Allred LPN MAMMOGRAM, SCREENING, BOTH On: 24-Aug-2012 Intent BREASTS (97274)By: Dima DURAN, Adalid Ghosh MD Pulse Oximetry (02486)By: On: 29-Jun-2012 Intent COMFORT Gallegos Radiology - Chest- PA and LatBy: On: 01-Jun-2012 Intent Sofia Younger DO Eprescribed prescriptions On: 01-Jun-2012 Intent (G8553)By: Kim Garces LPN FLU VAC, SPLIT, >3 YEARS, On: 28-Apr-2012 Intent INTRAMUSC (77986)By: Balaji, Comments: Lot:[id number]:12.31.12Dose:prefilledRoute:IMSite:L DltdGiven By:BARRY Garcia IMMUNIZ ADMNIN, 1 VAC, On: 28-Apr-2012 Intent SNGL/COMBO (21036)By: Radha Carpio TDAP VACCINE >7 IM (58642)By: On: 24-Nov-2011 Intent Long Makenzie ABBOTT Comments: Lot #[id number] 11.13Site- L arm, ImDose prefilledgiven by: Makenzie MAMMOGRAM, SCREENING, BOTH On: 01-Nov-2011 Intent BREASTS (25733)By: Dima DURAN, Adalid Ghosh MD Aerosol Treatment (69602)By: On: 14-Oct-2011 Intent Sofia Younger DO Comments: done pt tolerated well-- more a/e - less wheeze and irritabiltiy after tx Solu- Medrol Injection, 125mg On: 14-Oct-2011 Intent (J2930)By: Sofia Younger DO Comments: 2 ml given im rt hip lot obyr3 exp 07/18 Kenalog Injection, 10 mgm On: 09-Aug-2011 Intent (J3301)By: Adalid Pizano MD, MD, Dana M FLU VAC, SPLIT, >3 YEARS, On: 20-Apr-2011 Intent INTRAMUSC (43871)By: Cayden Comments: Lot #[id number]-8/30/12Site-left deltoidgiven by: Jared Rodarte LPN LPN, Connie IMMUNIZ ADMNIN, 1 VAC, On: 20-Apr-2011 Intent SNGL/COMBO (80121)By: Chery Rodarte LPN 12 Injection, 1000 mcg On: 22-Mar-2011 Intent (J3420)By: COMFORT Gallegos DRAIN/INJECT MAJOR JOINT OR On: 22-Mar-2011 Intent BURSA ()By: COMFORT Gallegos Comments: Lot #:[id number] date: given:2ml Route: intra articular Site given:bilateral knees Given by: Dr. Pizano Pulse Oximetry (06740)By: Janieesjunie On: 19-Mar-2011 Intent GLOVE EXAMINER, Adeola Aerosol Treatment (88084)By: On: 19-Mar-2011 Intent Ciesa GLOVE EXAMINER, Adeola DRAIN/INJECT MAJOR JOINT OR On: 12-Mar-2011 Intent BURSA ()By: COMFORT Gallegso Comments: Lot #:[id number] date: given:2ml Route: intra articular Site given:bilateral knees Given by: Dr. Pizano DRAIN/INJECT MAJOR JOINT OR On: 04-Mar-2011 Intent BURSA ()By: COMFORT Gallegos Comments: Lot #:[id number] date: given:2mlRoute: intra articular Site given:Bilateral knees Given by: Dr. Pizano injection #1 Kenalog Injection, 10 mgm On: 08-Feb-2011 Intent (J3301)By: Adalid Pizano MD Comments: x 8 Adalid Pizano MD Breast Ultrasound - LeftBy: On: 08-Feb-2011 Intent Adalid Pizano MD, MD, Dana M DXA, BONE DENSITY, AXIAL On: 02-Nov-2010 Intent SKELETON ([id number])By: Adalid Pizano MD, MD, Dana M MAMMOGRAM, SCREENING, BOTH On: 02-Nov-2010 Intent BREASTS ([id number])By: Adalid Pizano MD, MD, Dana M FLU VAC, SPLIT, >3 YEARS, On: 17-Jun-2010 Intent INTRAMUSC ([id number])By: Cayden Comments: Lot #[id number]-10/12Site-right deltoidgiven by:Chery PAVON LPN IMMUNIZ ADMNIN, 1 VAC, On: 17-Jun-2010 Intent SNGL/COMBO ([id number])By: Chery Rodarte LPN DXA, BONE DENSITY, AXIAL On: 30-Sep-2009 Intent SKELETON (15923)By: Dima DURAN, Adalid Pizano MD, Adalid Rebollar MAMMOGRAM, SCREENING, BOTH On: 30-Sep-2009 Intent BREASTS (07450)By: Dima DURAN, Adalid Ghosh MD B 12 Injection, 1000 mcg On: 30-Sep-2009 Intent ([id number])By: COMFORT Gallegos Pulse Oximetry ([id number])By: Quentin On: 09-Apr-2009 Intent GLOVE EXAMINER, Adeola Aerosol Treatment (19575)By: On: 09-Apr-2009 Intent Ciesa GLOVE EXAMINER, Adeola FLU VAC, SPLIT, >3 YEARS, On: 26-Mar-2009 Intent INTRAMUSC ([id number])By: Lisa RN, Andie IMMUNIZ ADMNIN, 1 VAC, On: 26-Mar-2009 Intent SNGL/COMBO ([id number])By: Lisa RN, Comments: Lot #: [id number] date: mount given: 0.5 mlRoute: IMSite given: left deltoidGiven by: SCAR Montenegro INJECTION, VITAMIN B-12 On: 07-Feb-2009 Intent CYANOCOBALAMIN, UP TO 1000 MCG Comments: Lot #[id number] date:mount given:1mlSite given: right deltoidGiven by:Judith. (Special Coverage Instructions Apply. See CIM: 45-4 and MCM: 2049) (J3420)By: COMFORT Gallegos Pulse Oximetry ([id number])By: Ceci On: 04-Dec-2008 Intent DORosa Maria Comments: post fhfridbvf59% Aerosol Treatment (34298)By: On: 04-Dec-2008 Intent Fast DORosa Maria A Comments: done-aw B 12 Injection, 1000 mcg On: 04-Dec-2008 Intent (J3420)By: Tonia Garcia Comments: Lot #[id number]-05/2010Site-right ihggexcWwwm2698wkn/1mlgiven by Debbie Lei LPN Pulse Oximetry ([id number])By: On: 04-Dec-2008 Intent Tonia Garcia Comments: 91% Radiology - Knee - RightBy: On: 05-Nov-2008 Intent Dima DURAN, Adalid Pizano MD, Adalid Rebollar Radiology - Knee - LeftBy: On: 05-Nov-2008 Intent Dima DURAN, Adalid Pizano MD, Adalid Rebollar B 12 Injection, 1000 mcg On: 05-Nov-2008 Intent (J3420)By: COMFORT Gallegos Comments: Lot #:[id number] date: given:1 ml Route: IM Site given:rt. deltoid Given by: aretha Sarkar 12 Injection, 1000 mcg On: 09-Oct-2008 Intent (J3420)By: COMFORT Gallegos Comments: Lot #[id number]-05/2010Site-right mtaothvUrmf8434hrn/1mlgiven by Debbie Lei LPN DRAIN/INJECT MAJOR JOINT OR On: 09-Oct-2008 Intent BURSA ()By: COMFORT Gallegos Comments: Lot #:[id number] date:mo given:Route: intra articular Site given:bilateral knees Given by: Dr. Pizano DRAIN/INJECT MAJOR JOINT OR On: 01-Oct-2008 Intent BURSA ()By: COMFORT Gallegos Comments: Lot #:[id number] date: given:2.5ml Route:intra-articular Site given:Bilateral knees Given by: Dr. Pizano DRAIN/INJECT MAJOR JOINT OR On: 24-Sep-2008 Intent BURSA ()By: COMFORT Gallegos Comments: Lot #:[id number] date: Amount given:2.5 mlRoute: intra-articular Site given:bilateral knees Given by: Dr. Pizano DRAIN/INJECT MAJOR JOINT OR On: 17-Sep-2008 Intent BURSA ()By: COMFORT Gallegos Comments: Lot #:[id number] date:mo given:2 grams Route: Intra articular Site given: bilateral knees Given by: Dr. Pizano DRAIN/INJECT MAJOR JOINT OR On: 13-Sep-2008 Intent BURSA ([id number])By: COMFORT Gallegos Comments: Lot #:[id number] date:05-10 Amount given:2.5MLRoute: INTRA ARTICULAR Site given:bilateral knees Given by: Dr. Pizano B 12 Injection, 1000 mcg On: 10-Sep-2008 Intent (J3420)By: COMFORT Gallegos B 12 Injection, 1000 mcg On: 29-Jul-2008 Intent (J3420)By: Denise Collazo Comments: Amt: 1mlLot: [id number]: 02/10Route: IMSite: right deltTolerated: wellGiven By: SCAR Sood Pulse Oximetry ([id number])By: Quentin On: 29-Jul-2008 Intent GLOVE EXAMINER, Adeola Aerosol Treatment (89317)By: On: 29-Jul-2008 Intent Ciesa GLOVE EXAMINER, Adeola Aerosol Treatment (08814)By: On: 16-Jul-2008 Intent Sofia Younger DO Comments: done-awnoise resolved and much more air exchange Pulse Oximetry (11376)By: Carisa On: 16-Jul-2008 Sofia Davis DO Comments: 93% Solu- Medrol Injection, 125mg On: 16-Jul-2008 Intent (J2930)By: Sofia Younger DO Comments: Lot #[id number]-6/11Site-right oxiLpcd5ie/125mggiven by Debbie Lei LPN B 12 Injection, 1000 mcg On: 30-Apr-2008 Intent (J3420)By: Prema Lei Comments: Lot #[id number]-5/10Site-right radhfwtYyic6qdpkfnc by Debbie Lei LPN DXA, BONE DENSITY, AXIAL On: 30-Apr-2008 Intent SKELETON (89846)By: Dima DURAN, Comments: estrogen def Adalid Pizano MD, Adalid Rebollar MAMMOGRAM, SCREENING, BOTH On: 30-Apr-2008 Intent BREASTS (63224)By: Dima DURAN, Adalid Ghosh MD B 12 Injection, 1000 mcg On: 27-Mar-2008 Intent (J3420)By: Tonia Garcia Comments: Lot #:[id number] date:mount given:.1mlRoute: IMSite given:left deltoidGiven by: EDEN Salcido Pulse Oximetry (10855)By: On: 27-Mar-2008 Intent Tonia Garcia Comments: 96% Pulse Oximetry (63419)By: On: 14-Mar-2008 Intent COMFORT Gallegos B 12 Injection, 1000 mcg On: 06-Feb-2008 Intent (J3420)By: Pamella Saavedra CNP Comments: Lot #:[id number] date: Amount given:1ml Route: IMSite given:left deltoid Given by: billy Solu -Medrol Injection, 125 mg On: 06-Feb-2008 Intent (J2930)By: Pamella Saavedra CNP Comments: Lot #:[id number] date:mount given:125mgRoute: IMSite given:left gluteal Given by: aretha Pulse Oximetry (93809)By: Quentin On: 06-Feb-2008 Intent Pamella ARGUETA Aerosol Treatment (88821)By: On: 06-Feb-2008 Intent Pamella Saavedra CNP B 12 Injection, 1000 mcg On: 21-Dec-2007 Intent (J3420)By: Ledy Nogueira Comments: given in right deltoid, lot#[id number], exp.3.10 >Wf. B 12 Injection, 1000 mcg On: 03-Oct-2007 Intent (J3420)By: Pamella Saavedra CNP Pulse Oximetry (14617)By: Quentin On: 03-Oct-2007 Intent Pamella ARGUETA Aerosol Treatment (56184)By: On: 03-Oct-2007 Intent Pamella Saavedra CNP Pulse Oximetry (33824)By: Lenny On: 16-Aug-2007 Intent Cira Aerosol Treatment (08054)By: On: 16-Aug-2007 Intent Sofia Younger DO Comments: no wheeze and better air exchange Solu- Medrol Injection, 125mg On: 16-Aug-2007 Intent (J2930)By: Sofia Younger DO Comments: given in left buttocks.lot # [id number]\Exp 02/2010 SPECIMEN HNDLNG/TRNSPRT, OFFC > On: 16-Aug-2007 Intent LAB ([id number])By: Sofia Younger DO B 12 Injection, 1000 mcg On: 01-Aug-2007 Intent (J3420)By: Prema Lei Comments: Lot #[id number]-05/12Site-left adtzxqxRakw7pbiwhqv by Debbie Lei [facility] CT - ChestBy: Adalid Pizano MD On: 01-Aug-2007 Intent Adalid Pizano MD FLU VAC, SPLIT, >3 YEARS, On: 18-Apr-2007 Intent INTRAMUSC (78026)By: Adalid Pizano MD, MD, Dana M IMMUNIZ ADMNIN, 1 VAC, On: 18-Apr-2007 Intent SNGL/COMBO (63456)By: Adalid Pizano MD, MD, Dana M B 12 Injection, 1000 mcg On: 18-Apr-2007 Intent (J3420)By: Adalid Pizano MD, MD, Dana M B 12 Injection, 1000 mcg On: 07-Mar-2007 Intent (J3420)By: Adalid Pizano MD, MD, Dana M Breast Screening - BilateralBy: On: 10-Jan-2007 Intent Adalid Pizano MD, MD, Dana M Bone Density StudyBy: Dima On: 10-Jan-2007 Intent Adalid DURAN MD, Dana M B 12 Injection, 1000 mcg On: 10-Jan-2007 Intent (J3420)By: COMFORT Gallegos Radiology - ChestBy: Dima DURAN, On: 21-Nov-2006 Intent Adalid Ghosh MD B 12 Injection, 1000 mcg On: 26-Oct-2006 Intent (J3420)By: Mast Andie HERRON SPECIMEN HNDLNG/TRNSPRT, OFFC > On: 10-Oct-2006 Intent LAB ([id number])By: Adalid Pizano MD, MD, Dana M Solu -Medrol Injection, 125 mg On: 16-Sep-2006 Intent (J2930)By: Adalid Pizano MD Comments: lot # [id number] exp 04-11 [address] rt. gluteal by Adalid Chacon lpn, MD Pulse Oximetry (76275)By: On: 16-Sep-2006 Intent Adalid Pizano MD, MD, Dana M Aerosol Treatment (63170)By: On: 16-Sep-2006 Intent Adalid Pizano MD, MD, Dana M Pulse Oximetry (59387)By: On: 04-Aug-2006 Intent Dima DURAN, Adalid Ghosh MD EKG (54275)By: Adalid Pizano MD On: 08-Jul-2006 Intent Adalid Morfin MD IMMUNIZ ADMNIN, 1 VAC, On: 06-May-2006 Intent SNGL/COMBO (49976)By: Ramiro ABBOTT, Peg FLU VAC, SPLIT, >3 YEARS, On: 06-May-2006 Intent INTRAMUSC (55387)By: Ramiro ABBOTT, Comments: Lot #:Expiration date:Amount given:Route: imSite given:r armGiven by: galina golden lpn Peg Echo CompleteBy: Dima DURAN, On: 19-Apr-2006 Intent [address] MD CT - Abdomen & PelvisBy: Dima On: 19-Apr-2006 Adalid Davis MD, MD, Dana M Comments: ?obstruction, pancreatitis, attention kidney cyst send to [facility] gastrologist [facility] Planned Medications INJECTION, METHYLPREDNISOLONE SODIUM SUCCINATE, UP TO 125 MG Ordered: 14-Oct-2011 Pending Sofia Younger DO INJECTION, METHYLPREDNISOLONE SODIUM SUCCINATE, UP TO 125 MG Ordered: 04-Feb-2015 Pending Ciesa Pamella ARGUETA INJECTION, METHYLPREDNISOLONE SODIUM SUCCINATE, UP TO 125 MG Ordered: 05-Feb-2015 Pending Ciesa Pamella ARGUETA INJECTION, TRIAMCINOLONE ACETONIDE, NOT OTHERWISE SPECIFIED, 10 MG Ordered: 08-Feb-2011 Pending Adalid Pizano MD, MD, Dana M INJECTION, TRIAMCINOLONE ACETONIDE, NOT OTHERWISE SPECIFIED, 10 MG Ordered: 09-Aug-2011 Pending Adalid Pizano MD, MD, Dana M Phenergan 50 MG/ML Injection Solution Ordered: 12-Dec-2013 Pending Pamella Saavedra CNP Vitamin B-12 1000 MCG/ML Injection Solution Ordered: 22-Mar-2011 Pending COMFORT Gallegos Instructions Name Dates Details BMI 35.0-35.9,adult : How to access health information online Indication: BMI 35.0-35.9,adult BMI 35.0-35.9,adult : How to access health information online - Detail Indication: BMI 35.0-35.9,adult BMI 35.0-35.9,adult : Patient Instructions Indication: BMI 35.0-35.9,adult Well woman exam (Renamed from Encounter for [...] Advance Directives Name Dates Details Immunization Registry [place] - Effective on Effective: 29-Apr-201704/29/2017. Expiration date unspecified. Patient chose Declined. Encounters Office Visit On: 22-May-2018 12:59 Encounter Diagnosis: BMI 35.0-35.9,adult, Current nonsmoker (Renamed from Current non-smoker), Chronic pancreatitis (577.1) End: 22-May-2018 16:45 [facility] Office Visit On: 01-May-2018 13:29 Encounter Reason: [...] Nutrition: balanced diet and supplemental vitamins. The de dical issues the patient is following up [...] (579.8), Hyponatremia (276.1), Asthma (493.11), Fibromyalgia (729.1), [facility] V73.[facility] [place] (Renamed from [facility]), Obesity,unspecified (278.00), GERD (530.81), DEFICIENCY, [...] ANEMIA DUE TO DIETARY IRON DEFICIENCY (280.1), [facility] V73.21 [place] (Renamed from [facility]) [facility] Office Visit [...] docs for this Dr Jacob rabago at [facility]-- -- feels similiar to what she had [...] months. Note for Fever: pt had epidural 2-33-64Puylweinu Diagnosis: Dehydration(276.51), Abdominal Pain,Generalized (789.07), FEVER (780.6) [...] care visit: swelling better with aldactone, reviewed obiee consultant's letter use compression, work up from [...] weekend , bite by flies, camp in [facility], no fever abd pain still [...] Epigastric pain (789.06), SVC thrombosis, Fibromyalgia (729.1), [facility] Office Visit [...] Note for Follow up hospital: see pain tomorrow, stable still pain, do cerv. injectionEncounter Diagnosis: Cyst of kidney, acquired (593.2), Chronic pancreatitis (577.1), Acute pancreatitis (577.0), Cervical radiculopathy (723.4), Obesity,unspecified (278.00), Abnormal blood chemistry (790.6) [facility] Payers The [facility] J zaman guarantor
--- OUTSIDE RECORDS SUMMARY | 2018-08-02 06:25 | XMS RPT_ITS | Continuity of Care Document ---
:1955 Author Organization [facility] Address [address] [place] [address] Phone Care Team Providers Name Role Phone [...] cervical.doing every 6 months. ariel leaving to [place]. reconmmend Dr. romero and i talk to [...] really expensive can use an equivalent Creon 79064 UNIT Oral Capsule Delayed Release Particles 2 (two) Capsule DR Part tid romel meals for 0 days Quantity: 540 {Capsule} Refills: 3 Ordered:09-May-2017 Adalid Pizano MD, MD, Dana M Start : 09-May-2017 Active Cymbalta 60 MG Oral Capsule Delayed Release Particles [address] Part QHS / HS for 0 days Quantity: 90 {Capsule} Refills: 3 Ordered:31-May-2018 Adalid Pizano MD, MD, Dana M Start : 31-May-2018 Active DURAGESIC-50, 50MCG/HR (Transdermal Patch 72 Hour) [...] MD, Dana M Start : 30-Nov-2016 Active Wichita 5-325 MG Oral Tablet 1 (one) Tablet [...] M Start : 17-Apr-2015 Active Comments:Dr. Martin Wern 10 MG Oral Tablet 1 (one) Tablet [...] Start : 14-Apr-2018 Active Vitamin D (Ergocalciferol) 78956 UNIT Oral Capsule 1 (one) capsule twice [...] MD, Adalid Rebollar Start : 06-Feb-2018 Active Comments:[id number] called to [facility] ADVAIR DISKUS, 100-50MCG/DOSE [...] End : 24-Aug-2012 Inactive CALCIUM 500/VITAMIN D, 960-363MP-YPPE (Oral Tablet) 1 (one) Tablet daily for [...] : 09-Mar-2016 End : 04-Jun-2016 Inactive Drisdol 13822 UNIT Oral Capsule 1 Capsule two times a week for 0 days Quantity: 24 {Capsule} Refills: 3 Ordered:13-Jan-2017 Dima DURAN, Adalid Sloan MD, Adalid Rebollar Start : 23-Jul-2016 End [...] : 21-Dec-2007 End : 14-Mar-2008 Inactive Nystatin 287967 UNIT/GM External Powder 1 Powder bid for [...] Quantity: 1 {Package} Refills: 0 Ordered:08-Jul-2015 Slarb PLUMBING SERVICE TECHNICIAN, Kacey Start : 24-Jun-2015 End : 08-Jul-2015 [...] cervical.doing every 6 months. george leaving to [place]. reconmmend Dr. romero and i talk to [...] Procedures Procedure Dates Details [place] (65[address]) Date: 01-Oct-2016 Cancelled Cholecystectomy Completed GASTRIC BYPASS, OPEN (09756) Completed Comments: 1997, Dr. lindsay did for recurrent pancreatitis, this is what helped her. Hysterectomy; Abdominal Completed JEJUNOSTOMY (33809) Completed Comments: 1995 closed 1997 when had gastric bypass, because of pancreatitis and was tube feed for 2 years Date Value Details 21-Mar-2018 Dexa Bone Density Study Result: Comments: See Note; NOTES: [facility] Imaging Services [address] [place] [address] Dexa Bone Density Study MR#: [id number] Acct: [id number] Name: JOSE J COBIAN Rep #: [id number] : 1955 F 63 From: Bartolome Patel MD PCP: Adalid Pizano MD Status: REG CLI Study: Dexa Bone Density Study Date of Exam: 03/21/18 Exam# [id number] Ordering Dr: Adalid Pizano MD STUDY: D [...] Bartolome Patel MD at 15:07 EDT Tel [phone], Service support , CC: Adalid Pizano MD Development System Efficiency Manager: Signed 21-Mar-2018 SCREENING MAMM (CAD), BILAT Result: Comments: See Note; NOTES: [facility] Imaging Services [address] [place] [address] SCREENING MAMM (CAD), BILAT MR#: [id number] Acct: [id number] Name: JOSE J COBIAN Rep #: [id number] : 1955 F 63 From: Bartolome Patel MD PCP: Adalid Pizano MD Status: [facility] Study: SCREENING MAMM (CAD), BILAT Date of Exam: 03/21/18 Exam# [id number] Ordering Dr: Adalid Pizano MD MAMMOGRAPHY - [...] biopsy of a clinically suspicious abno rmality. [id number] Electronically Signed: Bartolome Patel MD at 13:21 EDT Tel [phone], Service support , CC: Adalid Pizano MD Development System Efficiency Manager: Signed 07-Nov-2017 Operative Report Result: Comments: See Note; NOTES: [facility] Medical Records Department [address] [place] [address] Operative Report 11/07/17 1027 MR#: [id number] Acct: [id number] Name: JOSE J COBIAN Rep #: [id number] : 1955 62 From: Bubba Romero MD PCP: Adalid Pizano MD Status: REG SDC Y Location: [place] [address] Problem List (1) Disc disease, degenerative, lumbar [...] 4 Views Result: Comments: See Note; NOTES: [facility] Imaging Services [address] [place] [address] L/S Spine Min 4 Views MR#: [id number] Acct: [id number] Name: JOSE J COBIAN Rep #: [id number] : 1955 F 62 From: Bartolome Patel MD PCP: Adalid Pizano MD Status: [facility] Study: L/S Spine Min 4 Views Date of Exam: 11/07/17 Exam# [id number] Ordering Dr: Bubba Romero MD PROCEDURE : [...] Bartolome Patel MD at 11:01 EDT Tel [phone], Service support , CC: Adalid Pizano MD; Bubba Romero Development System Efficiency Manager: Signed 04-Oct-2017 Cardiology Visit Report Result: Comments: See Note; NOTES: [facility] [address] [place] [address] OFFICE VISIT Date of Service: 10/03/17 MR#: [id number] Acct: [id number] Name: JOSE J COBIAN Rep #: [id number] : 1955 Provider: Chanel Shaw Age/Sex: 62/F Location: [facility] Status: Signed HPI HPI Details: JOSE [...] Intake Visit Reasons: NOT SEEN SINCE 05/2016 Hedis Analyst Required: No Accompanied by: Is patient in [...] mg PO DAILY@0800 10/20/15 [History Confirmed 10/03/17] [place] codone Bitart/Apap 5-325 [[place]ichita 5/325] 1 tab PO Q4H PRN PRN [...] infarction beginning age 61's, has had several [place]'s CAD (co ronary artery disease) history of [...] Operative Report Result: Comments: See Note; NOTES: [facility] Medical Records Department [address] [place] [address] Operative Report 09/05/17 0944 MR#: [id number] Acct: [id number] Name: JOSE J COBIAN Rep #: [id number] : 1955 62 From: Bubba Roemro MD PCP: Adalid Pizano MD Status: REG [facility] Y Location: [place] [address] Problem List (1) Lumbosacral spondylosis Status: Chronic [...] 4 Views Result: Comments: See Note; NOTES: [facility] Imaging Services [address] [place] [address] L/S Spine Min 4 Views MR#: [id number] Acct: [id number] Name: JOSE J COBIAN Rep #: [id number] : 1955 F 62 From: Bartolome Patel MD PCP: Adalid Pizano MD Status: [facility] Study: L/S Spine Min 4 Views Date of Exam: 09/05/17 Exam# [id number] Ordering Dr: Bubba Romero MD PROCEDURE : [...] Bartolome Patel MD at 9:02 EST Tel [phone], Service support , CC: Adalid Pizano MD; Bubba Romero Development System Efficiency Manager: Signed 08-Aug-2017 Operative Report Result: Comments: See Note; NOTES: [facility] Medical Records Department [address] [place] [address] Operative Report 08/08/17 1408 MR#: [id number] Acct: [id number] Name: JOSE J COBIAN Rep #: [id number] : 1955 62 From: Bubba Romero MD PCP: Adalid Pizano MD Status: [facility] Y Location: [facility] Problem List (1) Lumbosacral [...] 3 Views Result: Comments: See Note; NOTES: [facility] Imaging Services [address] [place] [address] Lumbar Spine 2 or 3 Views MR#: [id number] Acct: [id number] Name: JOSE J COBIAN Rep #: [id number] : 1955 F 62 From: Bartolome Patel MD PCP: Adalid Pizano MD Status: [facility] Study: Lumbar Spine 2 or 3 Views Date of Exam: 08/08/17 Exam# [id number] Ordering Dr: Bubba Romero MD P ROCEDURE: [...] Bartolome Patel MD at 11:32 EST Tel [phone], Service support , CC: Adalid Pizano MD; Bubba Romero Development System Efficiency Manager: Signed 09-May-2017 Operative Report Result: Comments: See Note; NOTES: [facility] Medical Records Department [address] [place] [address] Operative Report 05/09/17 1348 MR#: [id number] Acct: [id number] Name: JOSE J COBIAN Rep #: [id number] : 1955 62 From: Bubba Romero MD PCP: Adalid Pizano MD Status: [facility] Y Location: [place] [address] Report of Operation Date of Procedure: 05/09/17 [...] Spine Inj Result: Comments: See Note; NOTES: [facility] Imaging Services [address] [place] [address] Fluor Guidance for Spine Inj MR#: [id number] Acct: [id number] Name: JOSE J COBIAN Rep #: [id number] : 1955 F 62 From: Bartolome Patel MD PCP: Adalid Pizano MD Status: [facility] Study: Fluor Guidance for Spine Inj Date of Exam: 05/09/17 Exam# [id number] Ordering Dr: Bubba Romero MD PROCEDURE: Caudal [...] Bartolome Patel MD at 14:03 EST Tel [phone], Service support , CC: Adalid leigh MD; Bubba Romero Development System Efficiency Manager: Signed 29-Apr-2017 L/S Spine Min 4 Views Result: Comments: See Note; NOTES: [facility] Imaging Services [address] [place] [address] L/S Spine Min 4 Views MR#: [id number] Acct: [id number] Name: JOSE J COBIAN Rep #: [id number] : 1955 F 62 From: Feliberto Sim MD PCP: Adalid Pizano MD Status: REG CLI Study: L/S Spine Min 4 Views Date of Exam: 04/29/17 Exam# [id number] Ordering Dr: Lizeth Sanches STUDY: X-RAY - [...] , CC: Lizeth Sanches; Adalid Pizano MD Development System Efficiency Manager: Signed 21-Mar-2017 Operative Report Result: Comments: See Note; NOTES: [facility] Medical Records Department [address] [place] [address] Operative Report 03/21/17 0841 MR#: [id number] Acct: [id number] Name: JOSE J COBIAN Rep #: [id number] : 1955 62 From: Bubba Romero MD PCP: Adalid Pizano MD Status: [facility] Y Location: [facility] [place] Problem List (1) Cervical [...] 5 Views Result: Comments: See Note; NOTES: [facility] Imaging Services [address] [place] [address] Cerv Spine 4 or 5 Views MR#: [id number] Acct: [id number] Name: JOSE J COBIAN Rep #: [id number] : 1955 F 62 From: Daniel Manzano DO PCP: Adalid Pizano MD Status: [facility] Study: Cerv Spine 4 or 5 Views Date of Exam: 03/21/17 Exam# [id number] Ordering Dr: Bubba Romero MD STUDY: X-RAY - CERVICAL SPINE REASON FOR EXAM: Female, 62 years old. Cervical block TECHNIQUE: 4 view(s) of the cervical spine were obtained. COMPARISON: None FINDINGS: Face t block was performed with 4 spot fluoroscopy images obtained. Total fluoroscopy time 14.7 seconds. Please see performing physician's report for further details ORD ER #: [id number] RAD/Cerv Spine 4 or 5 Views IMPRESSION: As above Electronically Signed: Daniel Manzano DO at 16:12 EDT Tel , Service support , CC: Adalid Pizano MD; Bubba Romero Development System Efficiency Manager: Signed 17-Jan-2017 Operative Report Result: Comments: See Note; NOTES: [facility] Medical Records Department [address] [place] [address] Operative Report 01/17/17 1246 MR#: [id number] Acct: [id number] Name: JOSE J COBIAN Rep #: [id number] : 1955 61 From: Bubba Romero MD PCP: Adalid Pizano MD Status: DEP [facility] Y Location: [facility] Problem List (1) Cervical [...] 5 Views Result: Comments: See Note; NOTES: [facility] Imaging Services [address] [place] [address] Verdana 4d Cerv Spine 4 or 5 Views MR#: [id number] Acct: [id number] Name: JOSE J COBIAN #: [id number] : 1955 F 61 From: Tonia Galvan MD PCP: Adalid Pizano MD Status: [facility] Study: Cerv Spine 4 or 5 Views Date of Exam: 01/17/17 Exam# [id number] Ordering Dr: Bubba Romero MD STUDY: X-RAY [...] Tonia Galvan MD at 16:36 EDT Tel [phone], Service support , CC: Adalid Pizano MD; Bubba Romero Development System Efficiency Manager: Signed 09-Oct-2016 Abdomen/Pelvis WITH Contrast Result: Comments: See Note; NOTES: [facility] Imaging Services [address] [place] [address] Shiradaolvin 4d Abdomen/Pelvis WITH Contrast MR#: [id number] Acct: [id number] Name: VIRAJ COBIAN Rep #: [id number] : 1955 F 61 From: Enrike Peres PCP: Adalid Pizano MD Status: REG CLI Study: Abdomen/Pelvis WITH Contrast Date of Exam: 10/09/16 Exam# [id number] Ordering Dr: Adalid Pizano MD STUDY: CT [...] at 9:47 EDT Tel , Service support [phone], CC: Adalid Pizano MD Development System Efficiency Manager: Signed 23-Aug-2016 Operative Report Result: Comments: See Note; NOTES: [facility] Medical Records Department [address] [place] [address] Operative Report MR#: [id number] Acct: [id number] Name: JOSE J COBIAN Rep #: [id number] : 1955 61 From: Bubba Romero MD PCP: Adalid Pizano MD Status: [facility] DATE OF SERVICE: 08/09/2016 DATE OF PROCEDURE: [...] indicated. Bubba Romero MD T: NTS JOB: [id number] 08/23/16 1357 <Electronica y signed by Bubba Romero MD> Date Bubba Romero MD Cosigner Signature (If Indicated): Date ____ CC: Adalid Pizano MD; Bubba Romero Date Dictated: 08/09/161 Date Transcribed: 08/09/161310 Development System Efficiency Manager: Signed 09-Aug-2016 Thoracic Spine 3 Views Result: Comments: See Note; NOTES: [facility] Imaging Services [address] [address] Verdana 4d Thoracic Spine 3 Views MR#: [id number] Acct: [id number] Name: JOSE J COBIAN p #: [id number] : 1955 F 61 From: Azalia Fernandes MD PCP: Adalid Pizano MD Status: [facility] Study: Thoracic Spine 3 Views Date of Exam: 08/09/16 Exam# [id number] Ordering Dr: Bubba Romero MD [facility] DY: X-RAY - THORACIC SPINE [...] at 1 2:18 EST , Service support [phone], CC: Adalid Pizano MD; Bubba Romero Development System Efficiency Manager: Signed 01-Jun-2016 PT D/C of Non Returning Pt (1) Result: Comments: See Note; NOTES: [facility] Physical Therapy [facility] [address] [place], [place] [address] Fax REHABILITATION SERVICES DISCHAR GE SUMMARY MR#: [id number] Acct: [id number] Name: JOSE J COBIAN Rep #: [id number] Operative Report Result: Comments: See Note; NOTES: [facility] Medical Records Department [address] [place] [address] Operative Report MR#: [id number] Acct: [id number] Name: JOSE J COBIAN Rep #: [id number] : 1955 61 From: Bubba Romero MD PCP: Adalid Pizano MD Status: [facility] DATE OF SERVICE: 03/22/2016 DATE OF SERVICE: [...] indicated. Bubba Romero MD T: NTS JOB: [id number] 04/05/16 1351 <E lectronically signed by Bubba Romero MD> Date Bubba Romero MD Cosigner Signature (If Indicated): Date CC: Adalid Pizano MD; Bubba Romero Date Dictated: 03/22/161415 Date Transcribed: 03/22/161415 Development System Efficiency Manager: Signed 01-Apr-2016 Echocardiogram Complete Result: Comments: See Note; NOTES: [facility] Cardiovascular Services [address] [place] [address] Echo Complete 04/01/16 1256 MR#: [id number] Acct: [id number] Name: JOSEJ COBIAN Rep #: [id number] : 1955 61 From: Antonino Lucas MD Attending Dr: Antonino Lucas MD Status: REG I Ordering Dr: Antonino Lucas MD Date: 04/01/16 Location: [facility] Sex: F C Admitted: Reason For [...] Dictated: 04/01/16 1256 Date Transcribed: 04/01/16 1515 Development System Efficiency Manager: Signed 22-Mar-2016 Breast Limited Unilateral Result: Comments: See Note; NOTES: [facility] Imaging Services [address] [place] [address] Verdana 4d Breast Limited Unilateral MR#: [id number] Acct: [id number] Name: JOSE J COBIAN Rep #: [id number] : 1955 F 61 From: Bartolome Patel MD PCP: Adalid Pizano MD Status: REG CLI Study: Breast Limited Unilateral Date of Exam: 03/22/16 Exam# [id number] Ordering Dr: Zack Pizano MD STUDY: ULTRASOUND [...] Bartolome Patel MD at 12:35 EDT Tel [phone], Service support [phone], CC: Adalid Pizano MD Development System Efficiency Manager: Signed 19-Mar-2016 Thoracic Spine 3 Views Result: Comments: See Note; NOTES: [facility] Imaging Services [address] [place] [address] Verdana 4d Thoracic Spine 3 Views MR#: [id number] Acct: [id number] Name: JOSE J COBIAN #: [id number] : 1955 F 61 From: Bartolome Patel MD PCP: Adalid Pizano MD Status: [facility] Study: Thoracic Spine 3 Views Date of Exam: 03/22/16 Exam# [id number] Ordering Dr: Bubba Romero MD STUDY: X-RAY [...] Bartolome Patel MD at 14:10 EDT Tel [phone], Service support [phone], CC: Adalid vasquez MD; Bubba Romero Development System Efficiency Manager: Signed 19-Mar-2016 Inital Evaluation (1) - PT Result: Comments: See Note; NOTES: [facility] Physical Therapy [facility] [address] [place], [place] [address] Fax REHABILITATION SERVICES HERI Springer EVALUATION MR#: [id number] Acct: [id number] Name: JOSE J COBIAN Rep #: [id number] : 1955 61 From: Mac Smith Referring Dr.: Bubba Romero Status: REG RCR Insurance: Lysanda ARE MEDICARE Patient's Visit Information JOSE J [...] to be FAXED BACK to us at [phone] for Medicare purposes. Please let me know [...] AND CAD Result: Comments: See Note; NOTES: [facility] Imaging Services [address] [place] [address] Verdana 4d Bilat Scrn Digital AND CAD MR#: [id number] Acct: [id number] Name: JOSE J COBIAN Rep #: [id number] : 1955 F 61 From: Bartolome Patel MD PCP: Adalid Pizano MD Status: REG CLI Study: Bilat Scrn Digital AND CAD Date of Exam: 03/16/16 Exam# [id number] Ordering Dr: Adalid Pizano MD MAMMOGRAPHY - [...] delay biopsy of a clinically suspicious abnormality. [id number] Electronically Signed: Bartolome Patel MD at 15:06 EDT Tel [phone], Service supp ort [phone], CC: Adalid Pizano MD Development System Efficiency Manager: Signed 16-Mar-2016 Dexa Bone Density Study (HP) Result: Comments: See Note; NOTES: [facility] Imaging Services [address] [place] [address] Verdana 4d Dexa Bone Density Study (HP) MR#: [id number] Acct: [id number] Name: MAURI COBIAN Rep #: [id number] : 1955 F 61 From: Bartolome Patel MD PCP: Adalid Pizano MD Status: REG CLI Study: Dexa Bone Density Study (HP) Date of Exam: 03/16/16 Exam# [id number] Ordering Dr: Adalid Deng MD STUDY: DUAL [...] Bartolome Patel MD at 14:15 EDT Tel [phone], Service support [phone], CC: Adalid Pizano MD Development System Efficiency Manager: Signed 22-Feb-2016 History and Physical Exam Result: Comments: See Note; NOTES: [facility] Medical Records Department [address] [place] [address] History and Physical 02/22/162054 MR#: [id number] Acct: [id number] Name: JOSE J COBIAN Rep #: [id number] : 1955 60 From: An Dent DO [...] in the emergency room at [facility] with a chief complaint of [...] - Mediport placement Psychiatric Hist ory: Anxiety CLINIC SPECIALIST History: No pertinent CLINIC SPECIALIST history Lives: Spouse/ Significant Other Smoking [...] 44.6 L Lymph % (Auto) 46.1 H Pocahontas % (Auto) 6.9 Eos % (Auto) 2.0 [...] View (Portable) Result: Comments: See Note; NOTES: [facility] Imaging Services [address] [place] [address] Verdaolvin 4d Chest 1 View (Portable) MR#: [id number] Acct: [id number] Name: JOSE J COBIAN Rep #: [id number] : 1955 F 60 From: Kim Dsouza MD PCP: Adalid Pizano MD Status: REG ER Study: Chest 1 View (Portable) Date of Exam: 02/22/16 Exam# [id number] Ordering Dr: Mac Chi MD STUDY: X-RAY [...] MD at 19:35 EDT , Service support [phone], CC: Adalid Pizano MD; Mac Chi MD Development System Efficiency Manager: Signed 16-Feb-2016 Thoracic Spine 3 Views Result: Comments: See Note; NOTES: [facility] Imaging Services [address] [place] [address] Verdana 4d Thoracic Spine 3 Views MR#: [id number] Acct: [id number] Name: MANGOJOSE J Denise Prather #: [id number] : 1955 F 60 From: Kirk Wall MD PCP: Adalid Pizano MD Status: REG CLI Study: Thoracic Spine 3 Views Date of Exam: 02/16/16 Exam# [id number] Ordering Dr: Adalid Pizano MD ST UDY: [...] at 21:50 EDT , S titi support [phone], CC: Adalid Pizano MD Development System Efficiency Manager: Signed 03-Nov-2015 Operative Report Result: Comments: See Note; NOTES: [facility] Medical Records Department [address] [place] [address] Operative Report MR#: [id number] Acct: [id number] Name: JOSE J COBIAN Rep #: [id number] : 1955 60 From: Bubba Romero MD PCP: Adalid Pizano MD Status: [facility] DATE OF SERVICE: 10/20/2015 DATE OF PROCEDURE: [...] indicated. Lidia Romero MD T: NTS JOB: [id number] 11/03/15 3656 <Electronically signed by Bubba Romero MD> Date Bubba Romero MD Co signer Signature (If Indicated): Date CC: Adalid Pizano MD; Bubba Romero Date Dictated: 10/20/15 1351 Date Transcribed: 10/20/15 135 Development System Efficiency Manager: Signed 20-Oct-2015 Cerv Spine 2 or 3 Views Result: Comments: See Note; NOTES: [facility] Imaging Services [address] [place] [address] Veradalid 4d Cerv Spine 2 or 3 Views MR#: [id number] Acct: [id number] Name: JOSE J NOWAK Rep #: [id number] : 1955 F 60 From: Bartolome Patel MD PCP: Adalid Pizano MD Status: [facility] Study: Cerv Spine 2 or 3 Views Date of Exam: 10/20/15 Exam# [id number] Ordering Dr: Bubba Romero MD STUDY: X-RAY [...] Bartolome Patel MD at 13:45 EDT Tel [phone], Service support [phone], RAD/Cerv Spine 2 or 3 Views IMPRESSION: Fluoroscopic services provided for right 4 through C7 facet block. Electronically Signed: Bartolome Patel MD at 13:45 EDT Tel [phone], Service support [phone], CC: Adalid Pizano MD; Bubba Romero Development System Efficiency Manager: Signed 18-Aug-2015 Operative Report Result: Comments: See Note; NOTES: [facility] Medical Records Department [address] [place] [address] Operative Report MR#: [id number] Acct: [id number] Name: JOSE J COBIAN Rep #: [id number] : 1955 60 From: Bubba Romero MD PCP: Adalid Pizano MD Status: [facility] DATE OF SERVICE: 08/04/2015 DATE OF SERVICE: [...] d. Bubba Romero MD T: NTS JOB: [id number] 08/18/15 0927 <Electronically signed by Bubba Romero MD> Date Bubba copeland MD Cosigner Signature (If Indicated): Date CC: Adalid Pizano MD; Bubba Romero Date Dictated: 08/04/15 143 Date Transcribed: 08/04/151432 Development System Efficiency Manager: Signed 04-Aug-2015 Cerv Spine 2 or 3 Views Result: Comments: See Note; NOTES: [facility] Imaging Services [address] [place] [address] Verdana 4d Cerv Spine 2 or 3 Views MR#: [id number] Acct: [id number] Name: JOSE J NOWAK Denise Rep #: [id number] : 1955 F 60 From: Kirk Wall MD PCP: Adalid Pizano MD Status: [facility] Study: Cerv Spine 2 or 3 Views Date of Exam: 08/04/15 Exam# [id number] Ordering Dr: Osiel Romero MD STUDY: X-RAY [...] MD at 16:28 EST , Service support [phone], RAD/Cerv Spine 2 or 3 Views IMPRESSION: Needle positions as above. Electronically Signed: Kirk Wall MD at 16:28 EST , Service support [phone], CC: Adalid Pizano MD; Bubba Romero Development System Efficiency Manager: Signed 02-Jul-2015 Hip min 2 Views Result: Comments: See Note; NOTES: [facility] Imaging Services [address] [place] [address] Verdana 4d Hip min 2 Views MR#: [id number] Acct: [id number] Name: VIRAJ COBIAN Rep #: [id number] : 1955 F 60 From: Tuan Boyd MD PCP: Adalid Pizano MD Status: REG CLI Study: Hip min 2 Views Date of Exam: 07/02/15 Exam# [id number] Ordering Dr: Adalid Pizano MD S TUDY: [...] at 12:42 EST Tel , Service support [phone], Fax RAD/Hip min 2 Views IMPRESSION: Normal x-ray examination of the hip. Electronically Signed: Lucius Boyd MD at 12:42 EST Tel , Linnea elizabeth support [phone], CC: Adalid Pizano MD Development System Efficiency Manager: Signed 24-Jun-2015 Pelvis 1 or 2 Views Result: Comments: See Note; NOTES: [facility] Imaging Services [address] [place] [address] Verdana 4d Pelvis 1 or 2 Views MR#: [id number] Acct: [id number] Name: JOSE J COBIAN Rep #: [id number] : 1955 F 60 From: Prosper Dumont MD PCP: Adalid Pizano MD Status: REG CLI Study: Pelvis 1 or 2 Views Date of Exam: 06/24/15 Exam# [id number] Ordering Dr: Tuan Pizano MD STUDY: X-RAY [...] at 11:20 EST Tel , Service support [phone], RAD/Pelvis 1 or 2 Views IMPRESS ION: There is narrowing with cortical sclerosis and osteophyte formation of the sacroiliac joint consistent with degenerative osteoarthritic changes. Electronically Signed: Lavell Dumont MD 08/26 at 11:20 EST Tel , Service support [phone], CC: Adalid Pizano MD Development System Efficiency Manager: Signed 07-Feb-2015 Chest PA and Lateral Result: Comments: See Note; NOTES: [facility] Imaging Services [address] [place] [address] Radiology Report MR#: [id number] Acct: [id number] Name: JOSE J COBIAN Rep #: [id number] : 1955 F 59 From: Baldemar Torres DO PCP: Adalid Pizano MD Status: REG CLI Study: Chest PA and Lateral Date of Exam: 02/07/15 Exam# [id number] Ordering Dr: Pamella Saavedra STUDY: X-RAY CHES [...] Baldemar Torres DO at 19:14 EDT Tel [phone], Service support , RAD/Chest PA and Lateral IMPRESSION: No acute cardiopulmonary disease or interval change. Electronically Signed: Baldemar TorresDO at 19: 14 EDT Tel [phone], Service support [phone], CC: Pamella Saavedra; Adalid Pizano MD Development System Efficiency Manager: Signed 05-Feb-2014 Bilat Scrn Digital & CAD Result: Comments: See Note; NOTES: [facility] Imaging Services [address] [place] [address] Breast Imaging Report MR#: [id number] Acct: [id number] Name: JOSE J COBIAN Rep #: [id number] : 1955 F 58 From: Bartolome Patel MD PCP: Adalid Pizano MD Status: REG CLI Exam# [id number] Ordering Dr: Adalid Pizano MD MAMMOGRAPHY - [...] Bartolome Patel MD at 13:16 EDT Tel [phone], Service support [phone], CC: Adalid Pizano MD Development System Efficiency Manager: Signed 06-Jun-2013 Abdomen/Pelvis with Contrast Result: Comments: See Note; NOTES: [facility] Imaging Services [address] [place] [address] CAT Scan Report MR#: [id number] Acct: [id number] Name: JOSE J COBIAN Rep #: [id number] : 1955 F 58 From: Tuan Atkins MD PCP: Adalid Pizano MD Status: REG CLI Study: Abdomen/Pelvis with Contrast Date of Exam: 06/06/13 Exam# [id number] Ordering Dr: Adalid Pizano MD STUD Y: [...] M.D. at 0:12 EST , Service support [phone], CC: Adalid Pizano MD Development System Efficiency Manager: Signed Immunization Name Dates Details Influenza [...] with spouse. 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 [place], [place], [id number] PREMA 73 U/L (Normal) Range: 25-115 07-Wgi-813362:27 CBC-Complete Blood Cnt No Diff Comments: [facility] [address]xr[address] [place], [place], [id number] MPV 9.3 fL (Normal) Range: 6.2-12.0 PLT [...] 4.2-5.4 WBC 5.3 K/mm3 (Normal) Range: 4.4-11.0 47-Xoj-467290:27 Comprehensive Metabolic Profil Comments: [facility] [address]cil[address] [place], [place], [address] GAP 4 (Abnormal) Range: 5-15 CO2 29.0 [...] A.D.A. criteria.Please note revised GLUCOSE reference range teqqzydyq17/02/2018. 48-Vco-103281:27 Lipase Comments: [facility] Mdypnhhmyj7472 [facility] [place], [address] LIPASE 314 U/L (Normal) Range: 73-393 92-Jfe-053341:27 Urinalysis, Routine (Dipstick) Comments: How was Urine Obtained? Urine, [facility] Jlmrtyaeqm2533 [facility] [place], [address] LEUK ESTERASE Negative /ul (Normal) OCCULT BLOOD-UR Negative /ul (Normal) NITRITE UR Negative (Normal) UROBILI Normal mg/dL (Normal) PROT DIPSTX Negative mg/dL (Normal) pH UR 6.5 (Normal) Range: 5.0 - 8.0 SP.GR. DIPSTX 1.010 (Normal) Range: 1.002-1.030 KETONE UR Negative mg/dL (Normal) BILIRUBIN URINE Negative mg/dL (Normal) GLUCOSE, UR Normal mg/dL (Normal) CLARITY Clear (Normal) COLOR Yellow (Normal) 9-Jep-833585:01 Protime w/INR Fingerstick Comments: [facility] LaboratoryPoint of [address] [place] [address]. [place] [address] INR ISTAT 1.00 (Normal) Comments: Critical Value > 3.5 PROTIME ISTAT 11.9 {SEC} (Normal) Range: 11.9-14.4 Comments: Reference Range 11.9 - 14.4 30-Lcw-248503:58 URINE GRETTA CULTURE-IDENTIFICATN Comments: PATIENT NOT FASTINGPERFORMED BY: [facility]6370 [facility] [id number] Information: SRC:UC (65607) Result 1 MUG (Normal) Comments: Mixed urogenital floraGreater than 100,000 colony forming units per mL Urine Culture,Comprehensive Final report (Normal) 86-Tvw-266854:57 Urinalysis, Office (75459) UA - LEUKOCYTE ESTERASE Negative (Normal) UA - NITRITE Negative (Normal) URINE UROBILINGN YANCI TIMED 2 mg/dL (Normal) UA - PROTEIN Negative mg/dL (Normal) UA - PH 7.0 (Normal) UA - BLOOD Negative (Normal) UA - SPECIFIC GRAVITY 1.010 (Normal) UA - KETONES Negative mg/dL (Normal) UA - BILIRUBIN Negative (Normal) UA - GLUCOSE Negative (Normal) 03-Apr-20188:00 Protime w/INR Fingerstick Comments: [facility] LaboratoryPoint of [address]ts[address] [place], [place] [address] INR ISTAT 1.10 (Normal) Comments: Critical Value > 3.5 PROTIME ISTAT 13.7 {SEC} (Normal) Range: 11.9-14.4 Comments: Reference Range 11.9 - 14.4 03-Rbk-081101:23 Amylase 89 U/L (Normal) Comments: PATIENT NOT FASTINGPERFORMED BY: LabMcl[facility]6370 [facility] [id number] Range: 31-124 18-Ihw-133146:23 CBC With Differential/Platelet Comments: PATIENT NOT FASTINGPERFORMED BY: LabMcl[facility] Region6370 [facility] [id number] Immature Grans (Abs) 0.0 {x10E3/uL} (Normal) Range: [...] 3.77-5.28 WBC 4.2 {x10E3/uL} (Normal) Range: 3.4-10.8 18-Rnu-103421:23 Comp. Metabolic Panel (14) Comments: PATIENT NOT FASTINGPERFORMED BY: LabCo Vnnaro6495 [facility] [id number] ALT (SGPT) 18 [iU]/L (Normal) Range: 0-32 [...] U/L (Abnormal) Comments: PATIENT NOT FASTINGPERFORMED BY: [employer] Xsoaso1233 [facility] [id number] 4:23 Range: 14-72 89-Zly-528285:23 Urinalysis, Routine Comments: PATIENT NOT FASTINGPERFORMED BY: [employer] OLEDs6370 [facility] [id number] Microscopic Examination MICNIP (Normal) Comments: Microscopic not indicated and not performed. Nitrite, Urine Negative (Normal) Urobilinogen,Semi-Qn 1.0 mg/dL (Normal) Range: 0.2-1.0 Bilirubin Negative (Normal) Occult Blood Negative (Normal) Ketones Negative (Normal) Glucose Negative (Normal) Protein Negative (Normal) WBC Esterase Negative (Normal) Appearance Clear (Normal) Urine-Color Yellow (Normal) pH 6.0 (Normal) Range: 5.0-7.5 Specific Marion 1.020 (Normal) Range: 1.005-1.030 :42 Protime w/INR Fingerstick Comments: [facility] LaboratoryPoint of [address]eii[address] [place], [place] [address] INR ISTAT 1.00 (Normal) Comments: Critical Value > 3.5 PROTIME ISTAT 12.4 {SEC} (Normal) Range: 11.9-14.4 Comments: Reference Range 11.9 - 14.4 :14 CBC W/Diff, Automated Comments: [facility] [address] [place], [place], [id number] ; fu 6-19 Absolute Lymph 1.62 {X10_3/ul} [...] 4.2-5.4 WBC 4.7 K/mm3 (Normal) Range: 4.4-11.0 95-Ikl-166155:14 Comprehensive Metabolic Profil Comments: [facility] [address] [place], [place], [address] GAP 5 (Normal) Range: 5-15 CO2 29.0 [...] A.D.A. criteria.Please note revised GLUCOSE reference range skfylbnnd95/02/2018. 41-Zyl-969106:14 Ferritin Comments: [facility] [address] [place], [place], [address] FERRITIN 82 ng/mL (Normal) Range: 8-252 52-Edp-152394:14 Vitamin B12 558 pg/mL (Normal) Comments: [facility] [address] [place], [address] Range: 211-911 05-Sep-20178:07 Protime w/INR Fingerstick Comments: [facility] LaboratoryPoint of Tyrb[address] [place] [address] INR ISTAT 1.30 (Normal) Comments: Critical Value > 3.5 PROTIME ISTAT 14.9 {SEC} (Abnormal) Range: 11.9-14.4 Comments: Reference Range 11.9 - 14.4 :10 Protime w/INR Fingerstick Comments: [facility] LaboratoryPoint of Flsx[address] [place] [address] INR ISTAT 1.10 (Normal) Comments: Critical Value > 3.5 PROTIME ISTAT 13.0 {SEC} (Normal) Range: 11.9-14.4 Comments: Reference Range 11.9 - 14.4 70-Wcc-743731:32 Culture, Blood (WB) Comments: [facility] [address] [place], [address] CUB See Note (Normal) Comments: Has pt arrived? Y Comments: DR. Mello growth in 5 days. 22-Nso-019948:25 CBC W/Diff, Automated Comments: Comments: DR Cui [facility] [address]gr[address] [place], [address] Absolute Lymph 1.68 {X10_3/ul} (Normal) Range: [...] 4.2-5.4 WBC 3.9 K/mm3 (Abnormal) Range: 4.4-11.0 83-Xqa-911299:25 Culture, Blood (WB) Comments: [facility] [address] [place], [address] CUB See Note (Normal) Comments: Has pt arrived? Y Comments: DR. Mello growth in 5 days. 52-Ogz-209130:25 Erythrocyte Sed Rate Comments: Comments: [facility] [address]ts[address]kqznw[address] [place], [address] SED RATE 8 mm/h (Normal) Range: 0-30 84-Yky-659574:25 Ferritin Comments: Comments: [facility]Bl[facility] [address]veytnhzrn[address] [place], [address] FERRITIN 83 ng/mL (Normal) Range: 8-252 92-Axv-151891:25 Vitamin D,25 Hydroxy Comments: Order Date: 07/20/17[facility] [address] [place], [address] Vitamin D 25-OH 34.6 ng/mL (Normal) Comments: Vitamin D 25(OH) Status Range Deficiency <20 ng/mL (50nmol/L) Insuffciency 20 - 30 ng/mL (50 - 75 nmol/L) Sufficiency 30 - 100 ng/mL (75 - 250 nmol/L) Toxicity >100 ng/mL (>250 nmol/L) 31-Qzs-528506:10 Culture, Urine Comments: [facility] [address]xi[address] [place], [address] CUUR See Note (Normal) Comments: Order Date: 07/20/17 Comments: DR PIZANO Urine CultureCulture exhibits no growth. 50-Dmd-246094:10 Urinalysis, Complete Comments: Order Date: 07/20/17Has pt arrived? YComments: DR Morales was Urine Obtained? CLEAN [facility] [address] [place], [place], [address] MUCUS, URINE 0 SEEN {/hpf} (Normal) BACTERIA [...] Yellow (Normal) :48 Protime w/INR Fingerstick Comments: [facility] LaboratoryPoint [place] [address] [place], [place] [address] INR ISTAT 1.10 (Normal) Comments: Critical Value > 3.5 PROTIME ISTAT 13.2 {SEC} (Normal) Range: 11.9-14.4 Comments: Reference Range 11.9 - 14.4 :30 Protime w/INR Fingerstick Comments: [facility] LaboratoryPoint [facility] CenterLzcc[address] [place], [place] [address] INR ISTAT 1.10 (Normal) Comments: Critical Value > 3.5 PROTIME ISTAT 12.8 {SEC} (Normal) Range: 11.9-14.4 Comments: Reference Range 11.9 - 14.4 :44 INR Fingerstick Comments: [facility] LaboratoryPoint of Eyou[address] [place] [address] INR ISTAT 1.10 (Normal) Comments: Critical Value > 3.5 :44 Prothrombin Time Fingerstick Comments: [facility] LaboratoryPoint of Xdlj[address] [place] [address] PROTIME ISTAT 13.6 {SEC} (Normal) Range: 11.9-14.4 Comments: Reference Range 11.9 - 14.4 :17 HgA1C , Office (94798) HgA1C , Office 5.7 % (Normal) Range: 4.6 - 7.1 :08 Metabolic Panel, Basic Comments: PATIENT NOT FASTINGPERFORMED BY: [facility] AlmaWordlockNov[facility] [id number] (47584) Calcium, Serum 9.1 mg/dL (Normal) Range: 8.7-10.3 [...] Glucose, Serum 97 mg/dL (Normal) Range: 65-99 13-Wjn-543363:08 CBC (Auto) (01534) Comments: PATIENT NOT FASTINGPERFORMED BY: [facility] [employer] [facility] [id number] Platelets 306 {x10E3/uL} (Normal) Range: 150-379 RDW 15.6 % (Abnormal) Range: 12.3-15.4 MCHC 32.9 g/dL (Normal) Range: 31.5-35.7 MCH 28.3 pg (Normal) Range: 26.6-33.0 MCV 86 fL (Normal) Range: 79-97 Hematocrit 35.9 % (Normal) Range: 34.0-46.6 Hemoglobin 11.8 g/dL (Normal) Range: 11.1-15.9 RBC 4.17 {x10E6/uL} (Normal) Range: 3.77-5.28 WBC 4.6 {x10E3/uL} (Normal) Range: 3.4-10.8 :08 URINALYSIS W/O MICRO (79109) Comments: PATIENT NOT FASTINGPERFORMED BY: [employer] Z[facility] GroceryNovant Health Forsy[facility] Center [id number] Microscopic Examination MICNIP (Normal) Comments: Microscopic not indicated and not performed. Nitrite, Urine Negative (Normal) Urobilinogen,Semi-Qn 0.2 mg/dL (Normal) Range: 0.2-1.0 Bilirubin Negative (Normal) Occult Blood Negative (Normal) Ketones Negative (Normal) Glucose Negative (Normal) Protein Negative (Normal) WBC Esterase Negative (Normal) Appearance Clear (Normal) Urine-Color Yellow (Normal) pH 6.0 (Normal) Range: 5.0-7.5 Specific Marion 1.013 (Normal) Range: 1.005-1.030 :08 COMPLEMENT C4 (77552) Comments: PATIENT NOT FASTINGPERFORMED BY: [employer] Mnrmar2085 AventonesNovant Health [facility] [id number] Complement C4, Serum 16 mg/dL (Normal) Range: 14-44 43-Flo-791500:08 COMPLEMENT C3 (16729) Comments: PATIENT NOT FASTINGPERFORMED BY: [employer] [facility] Z[facility] GroceryNovant Health [facility] [id number] Complement C3, Serum 103 mg/dL (Normal) Range: 82-167 48-Dtc-937502:08 DNA ANTIBODY-NATV/DBL ST (89674) Comments: PATIENT NOT FASTINGPERFORMED BY: [employer] SokikomAlleghany Health [id number] test code 662035 Anti-DNA (DS) Ab Qn <1 {IU/mL} (Normal) Range: 0-9 Comments: Negative <5 Equivocal 5 - 9 Positive >9 94-Jbn-588436:08 Sed Rate Erythrocyte (64643) Comments: PATIENT NOT FASTINGPERFORMED BY: [facility] GenesysHoly Name Medical CenterDebhyg0960 [facility] [id number] Sedimentation Rate-Westergren 4 mm/h (Normal) Range: 0-40 25-Lyi-860884:08 DESIRAE (ANTINUCLEAR ANTIBODY) Comments: PATIENT NOT FASTINGPERFORMED BY: Space ApartMclaren Thumb Region6370 [facility] [id number] (66225) DESIRAE Direct Negative (Normal) 9-Lyf-459333:04 Prothrombin Time w/INR Comments: [facility] [address] [place], [address] INR 1.5 (Normal) PROTIME 17.8 s (Abnormal) Range: 11.7-14.9 10-Tga-400875:45 Prothrombin Time w/INR Comments: [facility] [address] [place], [address] INR 3.0 (Normal) PROTIME 30.3 s (Abnormal) Range: 11.7-14.9 :51 Serum Creatinine AND GFR Comments: [facility] [address] [place], [place], [address](537) EST GFR - AA 90 mL/min (Normal) Comments: GFR Calc EST GFR 74 mL/min (Normal) Comments: Non- GFR Calc CREAT,SERUM 0.83 mg/dL (Normal) Range: 0.55-1.02 Comments: The validity of the calculated GFR AND GFRAA in patients over70 years has not been determined. Clinical correlation isessential. :21 LIPASE (69879) Comments: PATIENT NOT FASTINGPERFORMED BY: Cold GenesysHoly Name Medical CenterXlbtqh7216 [facility] [id number] Lipase, Serum 46 U/L (Normal) Range: 14-72 Comments: Please note reference interval change :21 AMYLASE (39477) Comments: PATIENT NOT FASTINGPERFORMED BY: [employer] Uuetus2151 [facility] [place] [id number] Amylase, Serum 65 U/L (Normal) Range: 31-124 1-Wqx-890152:21 CALCIFIDIOL (15985) VIT D 25 Comments: PATIENT NOT FASTINGPERFORMED BY: [facility] Rfzjxd0960 [facility] [id number] Vitamin D, 25-Hydroxy 25.8 ng/mL (Abnormal) Range: 30.0-100.0 Comments: Vitamin D deficiency has been defined by the [place] of[place]icine and an Endocrine Society practice guideline as alevel of serum 25-OH vitamin D less than 20 ng/mL (1,2).The Endocrine Society went on to further define vitamin Dinsufficiency as a level between 21 and 29 ng/mL (2).1. IOM ([place] of Medicine). 2010. Dietary reference intakes for calcium and D. Lal [place]: The National Academies Press.2. Candelaria MF, Janey NC, Yolande GROSS, et al. Evaluation, treatment, and prevention of vitamin D deficiency: an Endocrine Society clinical practice guideline. JCEM. 2010; 96(7):1911-30. 2-Sbu-830086:21 Ferritin (77019) Comments: PATIENT NOT FASTINGPERFORMED BY: [facility] Mafmnq3104 [facility] [id number]; fu 10-27 db Ferritin, Serum 10 ng/mL (Abnormal) Range: 15-150 9-Kve-977818:21 Vitamin B-12 (cyanocobalamin) Comments: PATIENT NOT FASTINGPERFORMED BY: [facility] Rukhzm9990 [facility] [id number] (15556) Vitamin B12 1888 pg/mL (Abnormal) Range: 211-946 7-Ouk-807147:21 METABOLIC PANEL, COMPREHENSIVE Comments: PATIENT NOT FASTINGPERFORMED BY: [facility] Voroeo2162 [facility] [id number] (86711) ALT (SGPT) 11 [iU]/L (Normal) Range: 0-32 [...] Glucose, Serum 101 mg/dL (Abnormal) Range: 65-99 0-Vkt-852023:21 CBC with auto diff Comments: PATIENT NOT FASTINGPERFORMED BY: [facility] Difzjl5496 [facility] [id number] Information: CLIENT DRAW (08392) Immature Grans (Abs) 0.0 {x10E3/uL} (Normal) Range: [...] Range: 3.4-10.8 :14 Prothrombin Time w/INR Comments: [facility] [address] [facility] [place], [place], [address] INR 1.9 (Normal) Comments: ADDENDA: handled by cardio PROTIME 21.0 s (Abnormal) Range: 11.7-14.9 :57 HEPATIC FUNCTION PANEL Comments: PATIENT NOT FASTINGPERFORMED BY: [facility] Tuxyfy9929 [facility] [id number] (40679) ALT (SGPT) 15 [iU]/L (Normal) Range: 0-32 AST (SGOT) 20 [iU]/L (Normal) Range: 0-40 Alkaline Phosphatase, S 114 [iU]/L (Normal) Range: 39-117 Bilirubin, Direct 0.10 mg/dL (Normal) Range: 0.00-0.40 Comments: Please note reference interval change Bilirubin, Total <0.2 mg/dL (Normal) Range: 0.0-1.2 Albumin, Serum 4.9 g/dL (Abnormal) Range: 3.6-4.8 Protein, Total, Serum 7.1 g/dL (Normal) Range: 6.0-8.5 :57 IGA/IGD/IGG/IGM-EACH (80555) Comments: PATIENT NOT FASTINGPERFORMED BY: [employer] Kezfnq7629 [facility] [id number] Immunoglobulin E, Total 50 {IU/mL} (Normal) Range: 0-100 Immunoglobulin M, Qn, Serum 43 mg/dL (Normal) Range: 26-217 Immunoglobulin A, Qn, Serum 131 mg/dL (Normal) Range: 87-352 Immunoglobulin G, Qn, Serum 753 mg/dL (Normal) Range: 700-1600 66-Ymp-688749:57 EBV ACUTE PFOF IgG/IgM Comments: PATIENT NOT FASTINGPERFORMED BY: [employer] [facility] [facility] [id number] (19960) Interpretation: SPRCS (Normal) Comments: EBV Interpretation Chart [...] (LACTATE DEHYDROGENASE) Comments: PATIENT NOT FASTINGPERFORMED BY: [employer] Brnfdf7983 [facility] [id number] (05665) LDH 191 [iU]/L (Normal) Range: 119-226 11-Fgy-161923:57 HIV-1 & 2 ANTBDY-SNGL SHAWN Comments: PATIENT NOT FASTINGPERFORMED BY: [address] [id number] (70542) HIV Screen 4th Generation wRfx Non Reactive (Normal) 44-Cdm-738316:57 HEPATITIS PANEL (80744) Comments: PATIENT NOT FASTINGPERFORMED BY: [address] [id number] Hep C Virus Ab 0.1 {s/co_ratio} (Normal) Range: 0.0-0.9 Comments: Negative: < 0.8 Indeterminate: 0.8 - 0.9 Positive: > 0.9 . The CDC recommends that a positive HCV antibody result be followed up with a HCV Nucleic Acid Amplification test (073866). Hep B Core Ab, IgM Negative (Normal) HBsAg Screen Negative (Normal) Hep A Ab, IgM Negative (Normal) :56 Culture, Blood (WB) Comments: [facility] [address]bsdnb[address] [place], [address] CUB See Note (Normal) Comments: BCNo growth in 5 days. 0-Sqv-268946:56 EBV Acute Prof IgG / IgM Comments: [...] Present - Antibody Ab sentPerformed at: [address] [id number] Director: Neo Campos PhD, Phone: [phone] EB-NAg CyV57259 136.0 U/mL (Abnormal) Range: 0.0-17.9 Comments: Negative <18.0 Equivocal 18.0 - 21.9 Positive >21.9 EB-VCA AbO56510 255.0 U/mL (Abnormal) Range: 0.0-17.9 Comments: Negative <18.0 Equivocal 18.0 - 21.9 Positive >21.9 EB-EA IgG 59884 18.4 U/mL (Abnormal) Range: 0.0-8.9 Comments: Hepatitis A, Hepatitis C and HIV antibodies may cross-reactwith this assay. Negative < 9.0 Equivocal 9.0 - 10.9 Positive >10.9 EB-VCA BsO05399 36.1 U/mL (Abnormal) Range: 0.0-35.9 Comments: A second sample should be collected and tested no less than2-4 weeks. Negative <36.0 Equivocal 36.0 - 43.9 Positive >43.9 :56 Ferritin Comments: [address] [place], [address] FERRITIN 34 ng/mL (Normal) Range: 8-252 :56 Vitamin D,25 Hydroxy Comments: [address] [place], [address] Vitamin D 25-OH 29.2 ng/mL (Normal) Comments: Vitamin D 25(OH) Status Range Deficiency <20 ng/mL (50nmol/L) Insuffciency 20 - 30 ng/mL (50 - 75 nmol/L) Sufficiency 30 - 100 ng/mL (75 - 250 nmol/L) Toxicity >100 ng/mL (>250 nmol/L) 7-Ovl-484315:03 INR Fingerstick Comments: [address] [place], [place] [address] INR ISTAT 1.00 (Normal) Comments: Critical Value > 3.5 :03 Prothrombin Time Fingerstick Comments: [address] [place], [place] [address] PROTIME ISTAT 12.1 {SEC} (Normal) Range: 11.9-14.4 Comments: Reference Range 11.9 - 14.4 20-Bnc-638884:55 Prothrombin Time w/INR Comments: [facility] [address] [place], [place], [address] INR 2.6 (Normal) PROTIME 26.7 s (Abnormal) Range: 11.7-14.9 :44 GRETTA CULTURE-OTHER (87970) Comments: PATIENT NOT FASTINGPERFORMED BY: LabCoHoly Name Medical CenterPcbfwq2511 [facility] [id number] Information: THROAT SRC:TH Result 1 RRF (Normal) Comments: Routine respiratory rajwinder Upper Respiratory Culture Final report (Normal) 70-Aqo-972859:31 Rapid Flu (61677 x 2) Influenza A Ag negative (Normal) :31 Rapid Strep Test, Office (94689) Rapid Strep Test, Office Negative (Normal) 51-Dck-553708:46 Microscopic Examination Comments: PATIENT NOT FASTINGPERFORMED BY: [facility] Qgpqvd8050 [facility] [id number] Bacteria Few (Normal) Mucus Threads Present (Normal) Crystal Type Calcium Oxalate (Normal) Crystals Present (Abnormal) Epithelial Cells (non renal) 0-10 {/hpf} (Normal) Range: 0 - 10 RBC 0-2 {/hpf} (Normal) Range: 0 - 2 WBC 0-5 {/hpf} (Normal) Range: 0 - 5 32-Dnw-181343:46 URINALYSIS (62646) Comments: PATIENT NOT FASTINGPERFORMED BY: [facility] Ftnjuc1186 [facility] [id number] Microscopic Examination See below: (Normal) Comments: Microscopic was indicated and was performed. Nitrite, Urine Negative (Normal) Urobilinogen,Semi-Qn 1.0 mg/dL (Normal) Range: 0.2-1.0 Bilirubin Negative (Normal) Occult Blood Negative (Normal) Ketones Negative (Normal) Glucose Negative (Normal) Protein Negative (Normal) WBC Esterase 1+ (Abnormal) Appearance Clear (Normal) Urine-Color Yellow (Normal) pH 6.0 (Normal) Range: 5.0-7.5 Specific Marion 1.018 (Normal) Range: 1.005-1.030 :46 CBC WITH MANUAL DIFF (70563) Comments: PATIENT NOT FASTINGPERFORMED BY: [facility]6370 [facility] [id number] Immature Grans (Abs) 0.0 {x10E3/uL} (Normal) Range: [...] 3.77-5.28 WBC 4.5 {x10E3/uL} (Normal) Range: 3.4-10.8 00-Ijq-836187:46 Ferritin (89875) Comments: PATIENT NOT FASTINGPERFORMED BY: [facility]6370 [facility] [id number] Ferritin, Serum 10 ng/mL (Abnormal) Range: 15-150 12-Rmk-141382:46 Metabolic Panel, Comprehensive Comments: PATIENT NOT FASTINGPERFORMED BY: [facility]6370 [facility] [id number] (29864) ALT (SGPT) 18 [iU]/L (Normal) Range: 0-32 [...] Glucose, Serum 86 mg/dL (Normal) Range: 65-99 42-Pwl-669356:46 AMYLASE (34626) Comments: PATIENT NOT FASTINGPERFORMED BY: [facility] ApartMcl[facility] Region6370 [facility] [id number] Amylase, Serum 81 U/L (Normal) Range: 31-124 05-Ymu-756176:46 LIPASE (11328) Comments: PATIENT NOT FASTINGPERFORMED BY: LabMcl[facility] Region6370 [facility] [id number] Lipase, Serum 79 U/L (Abnormal) Range: 0-59 77-Gbq-444675:33 Prothrombin Time w/INR Comments: Order Date: 03/23/16Order Date: 03/23/16Interface Comments: Reason:Order Date: [facility]/23/16[facility] Vbvlxibqpn64[address] [place], [address] INR 2.0 (Normal) PROTIME 22.3 s (Abnormal) Range: 11.7-14.9 85-Sdq-119775:36 Prothrombin Time w/INR Comments: [facility] [address] [place], [address] INR 1.4 (Normal) PROTIME 17.1 s (Abnormal) Range: 11.7-14.9 93-Ynd-966968:20 Prothrombin Time w/INR Comments: Order Date: 05/11/16Order Info: 6301-6 - *PT/INR - Standing OrderComments: Standing Order-Reason:Order Date: 05/11/16Order Info: 6301-6 - *PT/INR - Standing OrderComments: Standing Order- Reason:[facility] [address] [place], [address] INR 1.2 (Normal) PROTIME 14.8 s (Normal) Range: 11.7-14.9 2-Gec-335684:50 Prothrombin Time w/INR Comments: Order Date: 05/11/16Order Info: 6301-6 - *PT/INR - Standing OrderComments: Standing Order-Reason:Order Date: 05/11/16Order Info: 6301-6 - *PT/INR - Standing OrderComments: Standing Order-Reason:Order Da te: 05/11/16Order Info: 6301-6 - *PT/INR - Standing OrderComments: Standing Order-Reason:[facility] [address] [place], [id number] INR 1.2 (Normal) PROTIME 15.1 s (Abnormal) Range: 11.7-14.9 04-Jun-20160:00 Culture, Nose Comments: [facility] [address]avf[address] [place], [id number] CUN See Note (Normal) Comments: Comments: NARESGram StainGram Stain Rare White Blood Cells 1+ Epithelial cells 4+ Gram positive rods Nasoph. CultNo Haemophilus, Streptococcus pneumoniae, beta-hemolytic Streptococcus or Staphylococcus aureus isolated. :00 Culture, Throat Comments: [facility] [address] [place], [place], [address] CUT See Note (Normal) Comments: Comments: NARESCulture, ThroatNo Haemophilus, Streptococcus pneumoniae, beta-hemolytic Streptococcus or Staphylococcus aureus isolated. 71-Dwc-621930:05 Rapid Flu (99455 x 2) Influenza A Ag neg (Normal) :45 CBC W/Diff, Automated Comments: Order Date: 03/18/16Order Date: 03/18/16[facility] Bxmyrxrrsd[address] [place], [place], [id number] Absolute Lymph 2.95 {X10_3/ul} (Normal) Range: 0.83-4.51 [...] 1'CKMB' Serial Specimen #1, #2 or #3? [address] [place] [address] Tundm[address] [place], [place], [address] CKRI 3.2 % (Abnormal) Range: 0.0-1.4 Comments: RELATIVE INDEX >1.5% IS PRESUMPTIVELY POSITIVE CPKMB 1.8 ng/mL (Normal) Range: 0.0-5.0 Comments: CK-MB and RI Interpretation MB Relative Index Non-AMI <or= 5 NA Indeterminate > 5 <or= 4 AMI > 5 > 4 CPK TOTAL 57 U/L (Normal) Range: 26-192 :45 Erythrocyte Sed Rate Comments: Order Date: 03/18/16Order Date: 03/18/16[facility] Cl[address]af[address] [place], [place], [id number] SED RATE 1 mm/h (Normal) Range: 0-30 :45 Myoglobin, Serum Comments: Order Date: 03/18/16[facility] (refer to report for specific site)refer to report for address and phone number Myoglobin, Ser 23 ng/mL (Abnormal) Range: 25-58 Comments: Performed at: - [facility] [address] [id number] Director: Neo Campos PhD, Phone: [phone] :45 Troponin-I Comments: Order Date: 03/18/16TROP ADDED 03/19/16Order Date: 03/18/16'TROP' Serial specimen #1, #2, #3, or #4: 1'CKMB' Serial Specimen #1, #2 or #3? [address] [place] [address] Pgnepz[address] [place], [place], [address] TROPONIN-I < 0.02 ng/mL (Normal) Comments: TROPONIN-I EXPECTED VALUES <0.05 NEGATIVE 0.06 - 0.59 AT RISK OF TX > OR = 0.60 SUGGEST [place] 65-Iow-840730:00 Basic Metabolic Profile (BMP) Comments: 'TROP' Serial specimen #1, #2, #3, or #4: 1[facility] Cfkcwbzyxk99[address] [place], [address] GAP 6 (Normal) Range: 5-15 [...] 7-18 GLU 101 mg/dL (Normal) Range: 70-110 84-Lgi-292967:00 CBC W/Diff, Automated Comments: [facility] [address] [place], [address] Absolute Lymph 2.27 {X10_3/ul} (Normal) [...] 4.2-5.4 WBC 4.9 K/mm3 (Normal) Range: 4.4-11.0 41-Igj-761953:00 Lipase Comments: 'TROP' Serial specimen #1, #2, #3, or #4: [address] [place] [address] Ehwxauevap7825 [place], [place], [address] LIPASE 351 U/L (Normal) Range: 73-393 40-Yqo-370020:00 Liver Profile Comments: 'TROP' Serial specimen #1, #2, #3, or #4: [address] [place] [address] Eynnjrsfmu8883 [place], [place], [address] D BILI 0.15 mg/dL (Normal) Range: 0.00-0.30 T BILI 0.30 mg/dL (Normal) Range: 0.20-1.00 ALT 23 U/L (Normal) Range: 12-78 ALK P 81 U/L (Normal) Range: 50-136 AST 24 U/L (Normal) Range: 15-37 GLOB 2.8 g/dL (Normal) Range: 2.3-3.5 ALB 4.0 g/dL (Normal) Range: 3.4-5.0 T PROT 6.8 g/dL (Normal) Range: 6.4-8.2 48-Kci-761286:00 Troponin-I Comments: 'TROP' Serial specimen #1, #2, #3, or #4: [address] [place] [address] Cubbsdqqmg[address] [place], [place], [address] TROPONIN-I < 0.02 ng/mL (Normal) Comments: TROPONIN-I EXPECTED VALUES <0.05 NEGATIVE 0.06 - 0.59 AT RISK OF TX > OR = 0.60 SUGGEST TX 78-Tyd-390538:08 Osmolality, Urine Comments: Order Date: 02/16/16Has pt arrived? [facility] [address] [place], [address] OSMOLALITY,UR 310 {mOsm/KG} (Normal) Comments: OSMOLALITY URINE REFERENCE INTERVALS 24-hour Urine 300 - 900 mOsm/kg Random Urine 50 - 1400 mOsm/kg After 12 Hr fluid restriction >850 mOsm/kg 25-Hgi-263135:50 Amylase Comments: [facility] [address]fh[address] [place], [place], [address] PREMA 80 U/L (Normal) Range: 25-115 89-Rjb-454343:50 CBC W/Diff, Automated Comments: [facility] Ap[address]pv[address] [place], [place], [address] Absolute Lymph 1.51 {X10_3/ul} (Normal) Range: 0.83-4.51 [...] 4.2-5.4 WBC 4.3 K/mm3 (Abnormal) Range: 4.4-11.0 32-Jbv-653977:50 Comprehensive Metabolic Profil Comments: [facility] [address]ff[address] [place], [place], [address] GAP 6 (Normal) Range: 5-15 CO2 28.0 [...] 7-18 GLU 98 mg/dL (Normal) Range: 70-110 68-Bxx-512809:50 Lipase Comments: [facility] [address]cn[address] [place], [address] LIPASE 424 U/L (Abnormal) Range: 73-393 83-Lln-899826:50 Osmolality, Serum Comments: [place] [address] [address] [place], [address] OSMOLALITY,SER 275 {mOsm/KG} (Normal) Range: 275-295 14-Dbc-032067:50 Vitamin B12 489 pg/mL (Normal) Comments: [address] [place], [address] ; will review on 02/19 Range: 211-911 19-Yxp-109816:50 Vitamin D,25 Hydroxy Comments: [place] [address] [address] [place], [address] Vitamin D 25-OH 37.6 ng/mL (Normal) Comments: Vitamin D 25(OH) Status Range Deficiency <20 ng/mL (50nmol/L) Insuffciency 20 - 30 ng/mL (50 - 75 nmol/L) Sufficiency 30 - 100 ng/mL (75 - 250 nmol/L) Toxicity >100 ng/mL (>250 nmol/L) :00 Ferritin Comments: [address] [place], [address] FERRITIN 13 ng/mL (Normal) Range: 8-252 :00 Lipid Profile Comments: [address] [place], [address] VLDL 28 [...] 200-240 mg/dL Borderline >240 mg/dL High Risk 3-Xpn-280332:40 CBC W/Diff, Automated Comments: Order Date: 09/08/15Has pt arrived? [facility] [address]wrkl[address] [place], [place], [address] Absolute Lymph 1.80 {X10_3/ul} (Normal) Range: 0.83-4.51 [...] Profil Comments: Order Date: 09/08/15Has pt arrived? [facility] [address]vnfuoo[address] [place], [address] GAP -1 (Abnormal) Range: 5-15 CO2 30.0 [...] mg/dL (Normal) Range: 70-110 :16 Amylase Comments: [facility] [address]mlb[address] [place], [address] PREMA 95 U/L (Normal) Range: 25-115 :16 Lipase Comments: [facility] [address] [place], [address] LIPASE 568 U/L (Abnormal) Range: 73-393 3-Htq-466603:29 Influenza A&B Viral Comments: PATIENT NOT FASTINGPERFORMED BY: [employer] [facility] [id number] Information: SRC:NOS [id number] Culture (23120) Viral Culture,Rapid,Influenza FLUABN (Normal) Comments: Negative:No Influenza A or B detected. 8-Tkt-362334:49 Rapid Flu (37180 x 2) Influenza A Ag neg (Normal) :01 CBC (Auto) (55499) Comments: now and in six months (approximately); PATIENT WAS FASTINGPERFORMED BY: Center[facility]70 [facility] [id number] Information: [id number], [id number] Platelets 357 {x10E3/uL} (Normal) Range: 150-379 RDW [...] Basic Comments: now; PATIENT WAS FASTINGPERFORMED BY: [employer] [facility] [id number] (20216) Calcium, Serum 9.1 mg/dL (Normal) Range: 8.7-10.2 [...] Glucose, Serum 102 mg/dL (Abnormal) Range: 65-99 54-Vrf-906915:01 CALCIFIDIOL (72143) VIT D 25 Comments: now and in six months (approximately); PATIENT WAS FASTINGPERFORMED BY: OttoL[facility] LabsNov[facility] [id number] Vitamin D, 25-Hydroxy 32.8 ng/mL (Normal) Range: 30.0-100.0 Comments: Vitamin D deficiency has been defined by the [place] of[place]icine and an Endocrine Society practice guideline as alevel of serum 25-OH vitamin D less than 20 ng/mL (1,2).The Endocrine Society went on to further define vitamin Dinsufficiency as a level between 21 and 29 ng/mL (2).1. IOM ([place] of Medicine). 2010. Dietary reference intakes for calcium and D. [place]: The National Academies Press.2. Candelaria MF, Janey NC, Yolande GROSS, et al. Evaluation, treatment, and prevention of vitamin D deficiency: an Endocrine Society clinical practice guideline. JCEM. 2010; 96(7):1911-30. 4-Kew-088074:06 Sputum Culture (33645) Comments: PATIENT NOT FASTINGPERFORMED BY: [facility] [facility] [id number] Information: [id number] Result 1 RRF (Normal) Comments: Routine respiratory rajwinder Lower Respiratory Culture Final report (Normal) 0-Wzu-938128:12 Rapid Flu (73048 x 2) Influenza A Ag neg a and b (Normal) 60-Wam-550989:01 Urinalysis, Office (86483) UA - LEUKOCYTE ESTERASE Negative (Normal) UA - NITRITE Negative (Normal) URINE UROBILINGN YANCI TIMED Normal mg/dL (Normal) UA - PROTEIN Negative mg/dL (Normal) UA - PH 6.0 (Normal) Comments: 5.5 UA - BLOOD Negative (Normal) UA - SPECIFIC GRAVITY 1.025 (Normal) UA - KETONES Negative mg/dL (Normal) UA - BILIRUBIN Negative (Normal) UA - GLUCOSE Negative (Normal) 38-Qzg-787123:40 Lipase (46705) Comments: PATIENT NOT FASTINGPERFORMED BY: [facility]6370 [facility] [id number] Lipase, Serum 113 U/L (Abnormal) Range: 0-59 82-Wrn-822261:40 Amylase (21328) Comments: PATIENT NOT FASTINGPERFORMED BY: Space ApartMcl[facility] Region[address] [place] [address] [id number] Information: [id number] Amylase, Serum 104 U/L (Normal) Range: 31-124 2-Prw-597555:54 Sputum Culture (30686) Comments: PATIENT NOT FASTINGPERFORMED BY: Space ApartMcl[facility] Region[address] [place] [address] [id number] Information: SRC: THROAT [id number] Result 1 RRF (Normal) Comments: Routine respiratory rajwinder Lower Respiratory Culture Final report (Normal) 5-Ial-337193:55 Pathology Report Comments: PERFORMED BY: [facility]CarMEM[facility] Cyto Eexud43983 [facility] [id number] BY: [facility] Dermatopathology Clyvery[address] [id number] Information: [id number] See MATER Comments: Material submitted: .PUNCH BIOPSY [...] IS NEGATIVE FOR FUNGAL FORMS.Pathologist provided ICD-9:692.9CPT .846596, 971155 14-Sas-007363:41 Lipid Panel (48391) Comments: PATIENT WAS FASTINGPERFORMED BY: Space ApartM[facility]6370 [facility] [id number] LDL/HDL Ratio 1.0 {ratio_units} (Normal) Range: 0.0-3.2 [...] - 169 >19 years 100 - 199 12-Noa-165046:41 Metabolic Panel, Comments: PATIENT WAS FASTINGPERFORMED BY: Space ApartMcl[facility] Region6370 [facility] [id number] Information: [id number] Comprehensive (96291) ALT (SGPT) 13 [iU]/L (Normal) Range: 0-32 [...] Glucose, Serum 97 mg/dL (Normal) Range: 65-99 63-Awy-686704:41 Vitamin B-12 (cyanocobalamin) Comments: PATIENT WAS FASTINGPERFORMED BY: LabSendRRHoly Name Medical CenterJhhezc9457 [address] [facility] [id number] (87412) Vitamin B12 632 pg/mL (Normal) Range: 211-946 :41 CBC (Auto) (28172) Comments: PATIENT WAS FASTINGPERFORMED BY: LabCoHoly Name Medical CenterSikaos2953 [facility] [id number] Platelets 270 {x10E3/uL} (Normal) Range: 150-379 RDW 13.9 % (Normal) Range: 12.3-15.4 MCHC 32.8 g/dL (Normal) Range: 31.5-35.7 MCH 29.5 pg (Normal) Range: 26.6-33.0 MCV 90 fL (Normal) Range: 79-97 Hematocrit 36.6 % (Normal) Range: 34.0-46.6 Hemoglobin 12.0 g/dL (Normal) Range: 11.1-15.9 RBC 4.07 {x10E6/uL} (Normal) Range: 3.77-5.28 WBC 8.5 {x10E3/uL} (Normal) Range: 3.4-10.8 :41 Ferritin (64803) Comments: PATIENT WAS FASTINGPERFORMED BY: LabCoHoly Name Medical CenterJfrcui7583 [facility] [id number] Ferritin, Serum 28 ng/mL (Normal) Range: 15-150 :41 CALCIFIDIOL (90026) VIT D 25 Comments: PATIENT WAS FASTINGPERFORMED BY: [facility] Nxirji9666 [facility] [id number] Vitamin D, 25-Hydroxy 24.3 ng/mL (Abnormal) Range: 30.0-100.0 Comments: Vitamin D deficiency has been defined by the [place] ofBerger Hospitalcine and an Endocrine Society practice guideline as alevel of serum 25-OH vitamin D less than 20 ng/mL (1,2).The Endocrine Society went on to further define vitamin Dinsufficiency as a level between 21 and 29 ng/mL (2).1. IOM ([place] of Medicine). 2010. Dietary reference intakes for calcium and D. [place]: The National Academies Press.2. Candelaria MF, Janey NC, Yolande GROSS, et al. Evaluation, treatment, and prevention of vitamin D deficiency: an Endocrine Society clinical practice guideline. JCEM. 2010; 96(7):1911-30. :55 CBC-Complete Blood Cnt No Diff Comments: Test performed at:[facility] [address]fr[address]qqe[address] [place], [place] [address] MPV 9.5 fL (Normal) Range: 6.2-12.0 PLT [...] 4.2-5.4 WBC 5.1 K/mm3 (Normal) Range: 4.4-11.0 44-Hwd-864307:55 Ferritin Comments: Test performed at:[facility] G[address]yt[address]oyal17[address] [place] [address] FERRITIN 23 ng/mL (Normal) Range: 8-252 95-Fov-958146:55 Iron Comments: Test performed at:[facility] [address] [place] [address] IRON 75 ug/dL (Normal) Range: 50-170 45-Cfy-624891:53 CBC W/Diff, Automated Comments: Test performed at:[facility] [address] [place], [place] [address] Absolute Lymph 1.57 {X10_3/ul} (Normal) Range: 0.83-4.51 [...] :53 Comprehensive Metabolic Profil Comments: Test performed at:[facility] [address] [place] [address] GAP 5 (Normal) Range: 5-15 CO2 [...] Range: 70-110 :53 Ferritin Comments: Test performed at:[facility] Bq[address]jwfsy[address]03 [place] [address] FERRITIN 13 ng/mL (Normal) Range: 8-252 :53 Lipid Profile Comments: Test performed at:[facility] [address]fl[address] [place] [address] VLDL 19 mg/dL (Normal) Range: 5-40 [...] 200-240 mg/dL Borderline >240 mg/dL High Risk 60-Wvk-064999:53 Vitamin B12 > 2000 pg/mL (Abnormal) Comments: Test performed at:[facility] [address] [place] [address] Range: 211-911 22-Erz-042642:46 CBC W/Diff, Automated Comments: Test performed at:[facility] [address] [place] [id number] Absolute Lymph 1.87 {X10_3/ul} (Normal) Range: 0.83-4.51 [...] 4.2-5.4 WBC 4.1 K/mm3 (Abnormal) Range: 4.4-11.0 77-Bwk-979091:46 Comprehensive Metabolic Profil Comments: Test performed at:[facility] [address]tmi[address] [place], [place] [address] GAP 4 (Abnormal) Range: 5-15 CO2 28.0 [...] :46 Vitamin D,25 Hydroxy Comments: Test performed at:[facility] [address] [place] [address] Vitamin D 25-OH 30.6 ng/mL (Normal) Comments: Vitamin D 25(OH) Status Range Deficiency <20 ng/mL (50nmol/L) Insuffciency 20 - 30 ng/mL (50 - 75 nmol/L) Sufficiency 30 - 100 ng/mL (75 - 250 nmol/L) Toxicity >100 ng/mL (>250 nmol/L) 81-Wpj-598531:04 CALCIFIDIOL (74261) VIT D Comments: PATIENT NOT FASTINGPERFORMED BY: [employer] Giaitt5121 [facility] [id number] Information: [id number] 25 Vitamin D, 25-Hydroxy 19.2 ng/mL (Abnormal) Range: 30.0-100.0 Comments: Vitamin D deficiency has been defined by the [place] of[place]icine and an Endocrine Society practice guideline as alevel of serum 25-OH vitamin D less than 20 ng/mL (1,2).The Endocrine Society went on to further define vitamin Dinsufficiency as a level between 21 and 29 ng/mL (2).1. IOM ([place] of Medicine). 2010. Dietary reference intakes for calcium and D. [place]: The National Academies Press.2. Candelaria MF, Janey NC, Yolande GROSS, et al. Evaluation, treatment, and prevention of vitamin D deficiency: an Endocrine Society clinical practice guideline. JCEM. 2010; 96(7):1911-30. 26-Pwd-165109:04 Ferritin (44018) Comments: PATIENT NOT FASTINGPERFORMED BY: [facility] Qfaime9658 [address] [facility] [id number] Ferritin, Serum 34 ng/mL (Normal) Range: 15-150 15-Cbs-276858:05 METABOLIC PANEL, COMPREHENSIVE Comments: PATIENT NOT FASTINGPERFORMED BY: [employer] Awcvns8780 [address] [facility] [id number] (22238) ALT (SGPT) 10 [iU]/L (Normal) Range: 0-32 [...] Glucose, Serum 86 mg/dL (Normal) Range: 65-99 43-Jid-177553:05 CBC WITH MANUAL DIFF Comments: PATIENT NOT FASTINGPERFORMED BY: LabCoHoly Name Medical CenterIaijmr3493 [facility] [id number] Information: [id number],2ND ORDER NO DRAW F (14897) Immature Grans (Abs) 0.0 {x10E3/uL} (Normal) Range: [...] 5.2 {x10E3/uL} (Normal) Range: 3.4-10.8 :05 CALCIFIDIOL (08524) VIT D 25 Comments: PATIENT NOT FASTINGPERFORMED BY: [facility] Mnjdvw6444 [facility] [id number] Vitamin D, 25-Hydroxy 19.6 ng/mL (Abnormal) Range: 30.0-100.0 Comments: Vitamin D deficiency has been defined by the [place] ofMedicine and an Endocrine Society practice guideline as alevel of serum 25-OH vitamin D less than 20 ng/mL (1,2).The Endocrine Society went on to further define vitamin Dinsufficiency as a level between 21 and 29 ng/mL (2).1. IOM ([place] of Medicine). 2010. Dietary reference intakes for [...] 4.2-5.4 WBC 3.3 K/mm3 (Abnormal) Range: 4.4-11.0 1-Jil-460646:51 CMP GAP 5 (Normal) Range: 5-15 CO2 [...] CHOL 168 mg/dL (Normal) Comments: <200 mg/dL Udblbnhoy324-854 mg/dL Borderline>240 mg/dL High Risk :51 VITD 38.8 mg/mL (Normal) Comments: Vitamin D 25(OH) Status RangeDeficiency <20 ng/mL (50nmol/L)Insuffciency 20 - 30 ng/mL (50 - 75 nmol/L)Sufficiency 30 - 100 ng/mL (75 - 250 nmol/L)Toxicity >100 ng/mL (>250 nmol/L) 39-Stf-644821:07 Lipase (66841) Comments: PERFORMED BY: [employer] [facility] [id number] Lipase, Serum 67 U/L (Abnormal) Range: 0-59 :07 Amylase (66514) Comments: PERFORMED BY: CB Parallax Enterprisesox RoadDublin [place] [id number] Amylase, Serum 92 U/L (Normal) Range: 31-124 35-Yvq-717734:11 Urinalysis, Office (05201) UA - LEUKOCYTE ESTERASE Negative (Normal) UA - NITRITE Negative (Normal) URINE UROBILINGN YANCI TIMED Normal mg/dL (Normal) UA - PROTEIN Negative mg/dL (Normal) UA - PH 5 (Abnormal) Comments: 5.5 UA - BLOOD Negative (Normal) UA - SPECIFIC GRAVITY 1.015 (Normal) UA - KETONES 15 mg/dL (Abnormal) UA - BILIRUBIN Small (Normal) UA - GLUCOSE Negative (Normal) 23-Oma-067981:28 GRETTA CULTURE-OTHER (58400) Comments: PATIENT NOT FASTINGPERFORMED BY: [place] [address]1270 [facility] [id number] Information: SRC:THRT [id number] Result 1 RRF (Normal) Comments: Routine respiratory rajwinder Upper Respiratory Culture Final report (Normal) 63-Urd-968299:32 Rapid Strep Test, Office (60770) Rapid Strep Test, Office Negative (Normal) 84-Wep-279131:02 Iron Binding Capacity Comments: PATIENT NOT FASTINGPERFORMED BY: [facility]6370 [facility] [id number] Information: [id number] (TIBC) (63346) Iron Saturation 6 % (Abnormal) Range: 15-55 Iron, Serum 32 ug/dL (Abnormal) Range: 35-155 UIBC 461 ug/dL (Abnormal) Range: 150-375 Iron Bind.Cap.(TIBC) 493 ug/dL (Abnormal) Range: 250-450 01-Kvz-665922:02 Ferritin (93567) Comments: PATIENT NOT FASTINGPERFORMED BY: [facility]6370 [facility] [id number] Ferritin, Serum 7 ng/mL (Abnormal) Range: 15-150 1-Jiu-050080:19 PREMA 80 U/L (Normal) Range: 25-115 8-Nxr-876619:19 B12 386 pg/mL (Normal) Range: 211-911 1-Hbz-016656:19 CMP GAP 7 (Normal) Range: 5-15 CO2 [...] CHOL 181 mg/dL (Normal) Comments: <200 mg/dL Jsanxmyxa783-518 mg/dL Borderline>240 mg/dL High Risk :19 VITD [...] 7-18 GLU 79 mg/dL (Normal) Range: 70-110 58-Mdl-400542:18 TS Ab SCREEN GEL NEGATIVE (Normal) SCREEN CELL I NEGATIVE (Normal) SCREEN CELL II NEGATIVE (Normal) SCREEN CELL III NEGATIVE (Normal) BLOOD TYPE GEL O POSITIVE (Normal) 32-Omh-607313:17 Metabolic Panel, Comments: PATIENT NOT FASTINGPERFORMED BY: LabCoHoly Name Medical CenterNwvihv2462 [facility] [id number] Information: [id number] Comprehensive (68203) ALT (SGPT) 13 [iU]/L (Normal) Range: 0-32 [...] s (Normal) Range: 11.9-14.4 :41 VIT D,25 22729 20.3 ng/mL (Abnormal) Range: 30.0-100.0 Comments: Vitamin D deficiency has been defined by the [place] ofMedicine and an Endocrine Society practice guideline as alevel of serum 25-OH vitamin D less than 20 ng/mL (1,2).The Endocrine Society went on to further define vitamin Dinsufficiency as a level between 21 and 29 ng/mL (2).1. IOM ([place] of Medicine). 2010. Dietary reference intakes for calcium and D. [place]: The National Academies Press.2. Candelaria MF, Janey ELIAS, Yolande GROSS, et al. Evaluation, treatment, and prevention of vitamin D deficiency: an Endocrine Society clinical practice guideline. JCEM. 2010; 96(7): 1911-30.Performed at: - LabSendRR[address] [id number] Director: Yony San MD, Phone: [phone] at: [facility] LabSendRR[address] [id number] Director: Era Tinoco MD, Phone: [phone] 00-Ibs-008536:41 VITD 1,25 04204 44.5 pg/mL (Normal) Range: 10.0-75.0 6-Rzy-535797:09 PREMA 87 U/L (Normal) Range: 25-115 9-Hxj-265439:09 CBCD ABSOLUTE NEUT 4.0 3/uL (Normal) Range: [...] Please note:LIPASE revised reference range effective 09. 06-Gxy-717742:05 LIPID Comments: COMMENTS: FAX RESULTS TO DR [...] 200-240 mg/dL Borderline >240 mg/dL High Risk 59-Ecp-278633:54 BILAT SCRN DIGITAL & CAD Radiology Report [...] 11/20/10 0112 Sign by: Bartolome Patel MD [id number]-238685:54 DEXA BONE DENSITY STUDY (HP) Radiology Report See Note (Normal) Comments: CLINICAL:Female, 55 years old. The patient is postmenopausal. EXAMINATION:DUAL ENERGY X-RAY ABSORPTIOMETRY / DEXA. TECHNIQUE:Bone Mineral Density (BMD) measurements of lumbar spine and bila teralhipswer e obtained using a imagoo scanner.. COMPARISON:Comparison is made with prior study [...] on 11/20/1030 Sign by: Bartolome Patel MD 5-Dao-984034:46 DESIRAE DIR SEMI-QL Comments: ORDERED CBC LUZ [...] DNA UAPROTEIN C3 C4 TSH; appt 11/02/10 HEAD OF STOCK AB 14 AU/mL (Normal) ANTI-TORRES AB 7 [...] ANTI-SCL 70 14 AU/mL (Normal) :46 ANTI-CCP 957855 < 1 {units} (Normal) Comments: ORDERED CBC [...] {IU/mL} (Normal) Comments: ORDERED CBC LUZ MARINA FEDRCOERY ORDERED CMP CBCD CRP ESR VITD HEPB [...] C4 TSH Range: 8-252 :46 HB CORE [id number] SeeNote (Normal) Comments: ORDERED CBC LUZ MARINA FEDRCOREY ORDERED CMP CBCD CRP ESR VITD HEPB SURF AB CCPHEPB IRINA AG HEPC DESIRAE RA HEPB CORE IGM UAC SCL70 ANTOINE ANTI JOANTICENT AB SSA SSB DNA UAPROTEIN C3 C4 TSH Comments: Result: Negative Performed at: - [facility] [address] [id number] Director: Era Tinoco MD, Phone: [phone] at: - [facility] [id number] Director: Yony San MD, Phone: [phone] :46 HBsAg 6510 Comments: ORDERED CBC LUZ [...] of antibody present. :46 HEP C AB 492376 <0.1 (Normal) Comments: ORDERED CBC LUZ MARINA [...] C4 TSH Range: 0.358-3.74 :46 VIT D,25 10292 9.3 ng/mL (Abnormal) Comments: ORDERED CBC LUZ [...] 4.2-5.4 WBC 9.8 K/mm3 (Normal) Range: 4.4-11.0 05-Kfy-046512:10 FERRITIN 21 ng/mL (Normal) Comments: COMMENTS: FAX RESULTS TO DR. CECI FARIAS DRAWRESULTS FAXED 07/17/10 VLADIMIR SALAMANCA. Range: 8-252 53-Mzt-320029:10 IRON 125 ug/dL (Normal) Comments: COMMENTS: FAX RESULTS TO DR. CECI FARIAS DRAWRESULTS FAXED 07/17/10 VLADIMIR SALAMANCA. Range: 50-170 16-Ops-997480:20 CBC With Differential/Platelet Comments: PERFORMED BY: [facility] [facility] [id number] Baso (Absolute) 0.0 {x10E3/uL} (Normal) Range: 0.0-0.2 [...] 11.7-15.0 WBC 5.3 {x10E3/uL} (Normal) Range: 4.0-10.5 12-Ziu-496959:20 Comp. Metabolic Panel (14) Comments: PERFORMED BY: [facility] [id number] ALT (SGPT) 18 [iU]/L (Normal) Range: 0-40 [...] Serum 14 ng/mL (Normal) Comments: PERFORMED BY: [facility] [id number] 14:20 Range: 13-150 42-Hpa-700940:20 Iron and TIBC Comments: PERFORMED BY: [facility] [id number] Iron Saturation 23 % (Normal) Range: 15-55 Iron, Serum 106 ug/dL (Normal) Range: 35-155 UIBC 361 ug/dL (Normal) Range: 150-375 Iron Bind.Cap.(TIBC) 467 ug/dL Range: 250-450 (Abnormal) TSH 1.760 {uIU/mL} Comments: PERFORMED BY: [facility] [id number] :20 (Normal) Range: 0.450-4.500 C DIF TOXIN/AG See Note (Normal) Comments: PT COLLECTED SPECIMEN 12/30 @2300 :45 Comments: C. DIFF ANTIGENS NEGATIVE :45 CUL STOOL/SHIG Comments: PT COLLECTED SPECIMEN 12/30 @2300 CULTURE, STOOL See Note (Normal) Comments: [facility] No Salmonella, Shigella or Yersinia [...] Crytosporidium parvum,Cyclospora, or Microsporidia.__ TESTING PERFORMED AT [facility]. ORIGINAL REPORT ONFILE IN LAB CONTAINS [...] (Normal) GLU 102 mg/dL (Normal) Range: 70-110 67-Kya-942138:37 OCCULT BLOOD FECES SCREEN (62350) OCCULT BLOOD FECES SCREEN negative (Normal) 11-Kyn-577965:03 CBCD,SMEAR DIFF PLT EST SeeNote (Normal) Comments: [...] 4.2-5.4 WBC 4.2 K/mm3 (Abnormal) Range: 4.4-11.0 67-Smw-447689:03 COMP METABOLIC CL 96 mmol/L (Abnormal) Range: [...] 6.4-8.2 GLU 94 mg/dL (Normal) Range: 70-110 36-Hma-153527:03 FERRITIN 12 ng/mL (Normal) Range: 8-252 84-Nzp-575900:03 IRON 128 ug/dL (Normal) Range: 50-170 60-Wyn-504307:03 LIPID LDL 86 mg/dL (Normal) Range: 0-130 VLDL 18 mg/dL (Normal) Range: 5-40 HDL 79 mg/dL (Normal) Comments: Reference RangeHDL <40 mg/dL Low HDL CholesterolHDL >or= 60 mg/dL High HDL Cholesterol CHOL 183 mg/dL (Normal) Comments: <200 mg/dL Tulzvlamo956-480 mg/dL Borderline>240 mg/dL High Risk TRIG 88 mg/dL (Normal) Comments: Serum Triglycerides Reference IntervalNormal <150 mg/dLBorderline high 150 - 199 mg/dLHigh 200 - 499 mg/ dLVery High > or = 500 mg/dL 43-Xup-884062:03 VITAMIN B12 342 pg/mL (Normal) Range: 254-1320 10-Apr-20090:00 FLU A+B DIRECT See Note (Normal) Comments: Negative test results should be confirmed by culture. Order Rapid Viral Culture for Influenzae A+B (133985) if clinically indicated. INFLUENZA ANTIGEN,DIRECT Presumptive NEGATIVE for Influenza A/B Antigen (See Note) 08-Igp-318616:43 CHEST, PA AND LATERAL Radiology Report See Note (Normal) Comments: Exam Number: [id number] CLINICAL DATAInterstitial lung disease, cough. CHEST PA [...] pneumonia. Possible bronchitis. Reported By: FLORINDA CAMPOS 79-Qrw-325549:45 L/S SPINE,MIN 4 VIEWS Radiology Report See Note (Normal) Comments: Exam Number: [id number] CLINICAL PROBLEMLow back pain post fall. LUMBAR [...] and spondylosis. Reported By: AROLDO TILLMAN M.D. 56-Lfl-164697:44 KNEE,4 OR MORE VIEWS Radiology Report See Note (Normal) Comments: Exam Number: [id number] CLINICAL PROBLEMPain both knees post fall. FOUR [...] patellofemoral compartments. Reported By: AROLDO TILLMAN M.D. 31-Cde-710888:44 KNEE,4 OR MORE VIEWS Radiology Report See Note (Normal) Comments: Exam Number: [id number] CLINICAL PROBLEMLeft knee pain status post fall. [...] Order Rapid Viral Culture for Influenzae A+B (084515) if clinically indicated. INFLUENZA ANTIGEN,DIRECT Presumptive NEGATIVE for Influenza A/B Antigen (See Note) 12-Sep-2008 PREMA 66 U/L (Normal) Range: 25-115 12:11 76-Xgq-619225:11 CBCD BASO% 0.2 % (Normal) Range: 0-1 [...] 4.2-5.4 WBC 4.2 K/mm3 (Abnormal) Range: 4.4-11.0 97-Bnh-713562:11 COMP METABOLIC A/G 1.2 {RATIO} (Normal) Range: [...] T PROT 6.9 g/dL (Normal) Range: 6.4-8.2 30-Tfw-684898:11 ESR SED RATE 3 mm/h (Normal) Range: 0-30 09-Oyx-207483:11 LIPASE 229 U/L (Normal) Range: 114-286 41-Ivn-152666:11 LIPID CHOL 180 mg/dL (Normal) Comments: <200 [...] mg/dL VLDL 19 mg/dL (Normal) Range: 5-40 07-Cmm-318068:11 MG 1.9 mg/dL (Normal) Range: 1.5-2.2 08-Aty-491484:00 CBCD BASO% 0.3 % (Normal) Range: 0-1 [...] 11.6-14.6 WBC 4.9 K/mm3 (Normal) Range: 4.4-11.0 62-Dlo-976085:00 COMP METABOLIC A/G 1.2 {RATIO} (Normal) Range: [...] T PROT 6.7 g/dL (Normal) Range: 6.4-8.2 15-Imf-409909:00 METHYLM 971869 330 nmol/L (Normal) Range: 73-376 Comments: The reference range for methylmalonic acid has been set at+3sd above the mean for healthy blood bank donors. In theclinical assessment of patients with megaloblastic anemiasa cutoff of +3sd provides gre ater specificity in thediagnosis of the vitamin deficiency states, despite thesacrifice of some sensitivity.Performed At: [facility] [address] [id number] 7-Xvd-159310:55 Lower Respiratory Culture Comments: Clinical Information: SRC:SP PERFORMED BY: [facility] [facility] [id number] Lower Respiratory Culture Final report (Normal) Result 1 RRF (Normal) Comments: Routine respiratory rajwinder :3 PREMA 62 U/L (Normal) Range: 25-115 6 :36 DESIRAE-D 272557 DESIRAE-DIRECT 23 AU/mL (Normal) Range: 0-99 Comments: [...] {IU/mL} (Normal) Range: 0.0-13.9 Comments: Performed At: [facility] [place], [place] [id number] :36 TSH 1.76 {uIU/mL} (Normal) Range: 0.34-4.82 :29 HgA1C , Office (12720) HgA1C , Office 5.5 % (Normal) Range: 4.6 - 7.1 :29 Blood Glucose , Office (47381) Blood Glucose , Office 108 (Normal) :51 CHEST, PA AND LATERAL Radiology Report See Note (Normal) Comments: Exam Number: [id number] PA AND LATERAL CHEST HISTORY Being done [...] acute infiltrate. Reported By: JERARDO BEAULIEU M.D. 1-Por-304668:57 Rapid Flu (30313 x 2) INFLUENZA IMMUNOASSY DIRECT OPTICAL OBSERV [...] mg/dL VLDL 43 mg/dL (Abnormal) Range: 5-40 40-Jor-685530:57 VITAMIN B12 370 pg/mL (Normal) Range: 211-911 22-Lfi-315833:57 VITD 85954 69.6 (Normal) Comments: Performed At: [facility] [address] [place], [place] [id number] 76-Imb-373662:47 CHEST, PA AND LATERAL Radiology Report See Note (Normal) Comments: Exam Number: [id number] PA AND LATERAL CHEST HISTORY Being done [...] perihilar infiltrate. Reported By: JERARDO BEAULIEU M.D. 50-Xix-699215:08 Upper Respiratory Culture Comments: Clinical Information: SRC: PERFORMED BY: [facility] [facility] [id number] Result 1 RRF (Normal) Comments: Routine respiratory rajwinder Upper Respiratory Culture Final report (Normal) 1-Ajh-827425:39 CHEST WITHOUT CONTRAST Radiology Report See Note (Normal) Comments: Exam Number: [id number] CT SCAN OF CHEST HISTORYNeoplasm of uncertain [...] PREMA 73 U/L (Normal) Range: 25-115 :01 88-Eav-507284:01 CBCD BASO% 0.3 % (Normal) Range: 0-1 [...] 5 days. Comments: COMMENTS: ROOM 12 (Normal) 30-Iux-235388:20 COMPLETE UA Comments: COMMENTS: ROOM 12HOLD IN [...] WBC 0 SEEN {/hpf} (Normal) Range: 0-5 42-Lan-996259:10 BMP Comments: COMMENTS: ROOM 12 BUN 8 [...] 3.5-5.1 NA 132 mmol/L (Abnormal) Range: 136-145 59-Xoy-135272:10 CBCD Comments: COMMENTS: ROOM 12 BASO% 0.2 [...] (Normal) WBC 10.6 K/mm3 (Normal) Range: 4.4-11.0 74-Yne-828605:10 LIPASE 212 U/L (Normal) Comments: COMMENTS: ROOM 12 Range: 114-286 50-Tfu-807785:10 LIVER Comments: COMMENTS: ROOM 12 ALB 3.4 [...] 29 [iU]/L (Abnormal) Range: 30-65 :07 DESIRAE-D 639026 DESIRAE-DIRECT 24 U/mL (Normal) Range: 0-99 Comments: Negative <100 Equivocal 100 - 120 Positive >120Performed At: [facility]ycn[address] [place], [place] [id number] At: [facility] [address] [place], [place] [id number] :07 See Note (Normal) Comments: CHECK BLOOD [...] 5.8 K/mm3 (Normal) Range: 4.4-11.0 : HISTOPL 644889 SeeNote (Normal) Comments: Result: Negative :07 RA LATEX 6502 8.6 {IU/mL} (Normal) Range: 0.0-13.9 07-Hbh-911715:24 CHEST, PA AND LATERAL Radiology Report See Note (Normal) Comments: Exam Number: [id number] CHEST, PA AND LATERAL HISTORYFever and cough. COMPARISONNone. FINDINGSThere is an indwelling Dnvj-K-Vofnodhh on the right side particularlyin the SVC. [...] mm/h (Normal) Range: 0-30 :02 Urinalysis, Office (50071) Comments: ABn signed CH UA - BILIRUBIN [...] pg/mL (Abnormal) Range: 211-911 Comments: Performed At: [address] [id number] 7-Xhf-487017:00 CULTURE, THROAT See Note (Normal) Comments: Normal throat rajwinder isolated. No beta-hemolyticstreptococcus isolated. 8-Pai-013029:52 Urinalysis, Office (32746) UA - BILIRUBIN Negative (Normal) UA - [...] unspecified site Planned Observations URINALYSIS, W/ MICRO (80799)Indication: Chronic pancreatitis On: :30 Request Metabolic Panel, Comprehensive (50534)Indication: Chronic pancreatitis On: : Request CBC WITH MANUAL DIFF (69780)Indication: Chronic pancreatitis On: :03 Request LIPASE (59672)Indication: Chronic pancreatitis On: :03 Request AMYLASE (72795)Indication: Chronic pancreatitis On: :03 Request AMYLASE (64672)Indication: Chronic pancreatitis On: 28-Gmo-541273:48 Request LIPASE (02959)Indication: Chronic pancreatitis On: :48 Request METABOLIC PANEL, COMPREHENSIVE (21519)Indication: Chronic pancreatitis On: 50-Pkg-520091:47 Request LIPOPROTEIN, BLD, BY NMR (90266)Indication: Hyperlipidemia On: :47 Request Ferritin (50986)Indication: Iron deficiency anemia due to dietary causes On: 17-Bca-443412:51 Request LIPASE (43331)Indication: Chronic pancreatitis On: 64-Iil-014127:51 Request AMYLASE (33440)Indication: Chronic pancreatitis On: 20-Glw-751554:50 Request URINALYSIS (47118)Indication: Chronic pancreatitis On: :50 Request CBC WITH MANUAL DIFF (89604)Indication: Chronic pancreatitis On: :50 Request Metabolic Panel, Comprehensive (54871)Indication: Chronic pancreatitis On: 45-Hqx-807889:50 Request PT (PROTHROMBIN TIME) (07484)Indication: PFO (patent foramen ovale) On: 51-Wvw-399001:36 Request Vitamin B-12 (cyanocobalamin) (11550)Indication: S/P gastric bypass On: :21 Request Ferritin (88434)Indication: Iron deficiency anemia due to dietary causes On: 3-Gzt-948842:21 Request CBC, Platelets & Auto Diff (19328)Indication: Chronic pancreatitis On: : Request Metabolic Panel, Comprehensive (15257)Indication: Chronic pancreatitis On: 1-Egx-235099: Request CALCIFIDIOL (29639) VIT D 25Indication: Vitamin D deficiency, unspecified On: 32-Brg-47394:55 Request Comments: re check in 8 weeks Sed Rate Erythrocyte (03295)Indication: Fever On: 43-Gbh-289667:39 Request URINALYSIS (23690)Indication: Fever On: 89-Vjo-025925:33 Request URINE GRETTA CULTURE-IDENTIFICATN (97703)Indication: Fever On: :33 Request CALCIFIDIOL (28243) VIT D 25Indication: Vitamin D deficiency, unspecified On: 14-Fsl-459112:32 Request CBC, Platelets & Auto Diff (02146)Indication: Iron deficiency anemia due to dietary causes On: :32 Request Ferritin (77505)Indication: Iron deficiency anemia due to dietary causes On: 38-Iwl-740211:32 Request GRETTA CULTURE-BLOOD (96722)Indication: Fever On: 25-Nub-142557:30 Request Comments: ONE FROM PORT AND ONE PERIPHERAL CALCIFIDIOL (20362) VIT D 25Indication: Vitamin D deficiency, unspecified On: 36-Jes-724648:24 Request FERRITIN (97479)Indication: Iron deficiency anemia due to dietary causes On: 51-Qkh-533283:22 Request EBV ANTIBODY VCA/EA 72924 (07499)Indication: Fatigue On: 65-Rwg-574075:31 Request Comments: please do VCA IGM Ferritin (28645)Indication: Iron deficiency anemia due to dietary causes On: 73-Brx-343349:00 Request CALCIFIDIOL (80073) VIT D 25Indication: Vitamin D deficiency, unspecified On: 15-Rxj-756921:00 Request EBV Panel (35264)Indication: Pharyngitis, acute On: 50-Bru-485609:58 Request Influenza A&B Viral Culture (22897)Indication: Fever On: :34 Request GRETTA CULTURE-OTHER (94256)Indication: Fever On: :33 Request Rapid Strep Test, Office (75358)Indication: Fever On: :18 Request Troponin I (56737)Indication: Chest pain at rest On: 97-Ida-744320:43 Request Comments: pls add to labs already done MYOGLOBIN (53667)Indication: Chest pain at rest On: : Request CPK MB FRACTION (97481)Indication: Chest pain at rest On: : Request Sed Rate Erythrocyte (96590)Indication: Chest pain at rest On: : Request CBC WITH MANUAL DIFF (88891)Indication: Chest pain at rest On: : Request CALCIFEDIOL (71927)Indication: OTHER AND UNSPECIFIED POSTSURGICAL NONABSORPTION On: :12 Request PARATHORMONE (74229)Indication: OTHER AND UNSPECIFIED POSTSURGICAL NONABSORPTION On: :12 Request Magnesium (32806)Indication: OTHER AND UNSPECIFIED POSTSURGICAL NONABSORPTION On: : Request Phosphorus (40550)Indication: OTHER AND UNSPECIFIED POSTSURGICAL NONABSORPTION On: :12 Request IRON (39615)Indication: OTHER AND UNSPECIFIED POSTSURGICAL NONABSORPTION On: :12 Request FERRITIN (20940)Indication: OTHER AND UNSPECIFIED POSTSURGICAL NONABSORPTION On: :12 Request ZINC, BLOOD (89711)Indication: OTHER AND UNSPECIFIED POSTSURGICAL NONABSORPTION On: :12 Request VITAMIN A (46922)Indication: OTHER AND UNSPECIFIED POSTSURGICAL NONABSORPTION On: :12 Request TSH (46444)Indication: OTHER AND UNSPECIFIED POSTSURGICAL NONABSORPTION On: :12 Request MAGNESIUM (26889)Indication: OTHER AND UNSPECIFIED POSTSURGICAL NONABSORPTION On: :12 Request Folic Acid Serum (01839)Indication: OTHER AND UNSPECIFIED POSTSURGICAL NONABSORPTION On: :12 Request CHROMIUM (36522)Indication: OTHER AND UNSPECIFIED POSTSURGICAL NONABSORPTION On: :12 Request ASSAY, HOMOCYSTINE (13602)Indication: OTHER AND UNSPECIFIED POSTSURGICAL NONABSORPTION On: :12 Request Metabolic Panel, Basic (71792)Indication: Abdominal pain On: :11 Request Comments: do on this tuesday OSMOLALITY URINE (17654)Indication: Abdominal pain On: 90-Rug-035367:11 Request Comments: today in ambulatory OSMOLALITY BLOOD (26365)Indication: Abdominal pain On: :11 Request Comments: today in ambulatory Lipase (00225)Indication: Abdominal pain On: :11 Request Comments: today in ambulatory Amylase (07698)Indication: Abdominal pain On: :11 Request Comments: today in ambulatory CBC, Platelets & Auto Diff (98210)Indication: Abdominal pain On: :11 Request Comments: today in ambulatory Metabolic Panel, Comprehensive (49861)Indication: Abdominal pain On: 87-Ueq-157123:10 Request Comments: today in ambulatory AMYLASE (31961)Indication: Abdominal pain On: 0-Bsn-097900:12 Request LIPASE (79003)Indication: Abdominal pain On: 7-Ukk-325615:12 Request Ferritin (35516)Indication: Iron deficiency anemia due to dietary causes On: :20 Request Comments: in six months (approximately) Vitamin B-12 (cyanocobalamin) (53373)Indication: Other vitamin B12 deficiency anemia On: 60-Isf-691725:19 Request Comments: in six months (approximately) Lipid Panel (23621)Indication: High blood triglycerides On: :19 Request Comments: in six months (approximately) Metabolic Panel, Comprehensive (95552)Indication: Chronic pancreatitis On: :19 Request Comments: in six months (approximately) Vitamin B-12 (cyanocobalamin) (45610)Indication: Other vitamin B12 deficiency anemia On: :27 Request METABOLIC PANEL, COMPREHENSIVE (68062)Indication: High blood triglycerides On: :19 Request LIPID PANEL (52245)Indication: High blood triglycerides On: :19 Request CBC, Platelets & Auto Diff (76028)Indication: Iron deficiency anemia due to dietary causes On: :15 Request Ferritin (64503)Indication: Iron deficiency anemia due to dietary causes On: :15 Request Iron (32171)Indication: Iron deficiency anemia due to dietary causes On: :29 Request Comments: recheck in 4 weeks pt needs to be fasting Iron Binding Capacity (TIBC) (94412)Indication: Iron deficiency anemia due to dietary causes On: :29 Request Comments: recheck in 4 weeks pt needs to be fasting Ferritin (13617)Indication: Iron deficiency anemia due to dietary causes On: :28 Request Comments: recheck in 4 weeks pt needs to be fasting METABOLIC PANEL, COMPREHENSIVE (75165)Indication: High blood triglycerides On: 98-Xeu-756661:33 Request LIPID PANEL (24819)Indication: High blood triglycerides On: :33 Request CBC (Auto) (01819)Indication: Iron deficiency anemia due to dietary causes On: :33 Request Ferritin (61791)Indication: Iron deficiency anemia due to dietary causes On: 21-Qur-170587:33 Request Vitamin B-12 (cyanocobalamin) (94106)Indication: Other vitamin B12 deficiency anemia On: 95-Sws-686046:32 Request CALCIFIDIOL (73392) VIT D 25Indication: Vitamin D deficiency, unspecified On: 90-Pxu-913264:32 Request CULTURE, SPUTUM (61132)Indication: Cough On: 4-Zmr-561687:36 Request Iron (91596)Indication: Iron deficiency anemia due to dietary causes On: 49-Ure-694590:53 Request CALCIFIDIOL (97645) VIT D 25Indication: Vitamin D deficiency, unspecified On: 06-Xnu-033998:02 Request CBC (Auto) (16410)Indication: Iron deficiency anemia due to dietary causes On: 8-Egk-982803:49 Request Metabolic Panel, Comprehensive (85433)Indication: Chronic pancreatitis On: 0-Dqp-527591:49 Request Lipid Panel (91612)Indication: High blood triglycerides On: :49 Request Ferritin (51351)Indication: Iron deficiency anemia due to dietary causes On: 0-Kgi-696600:48 Request CALCIFEDIOL (73760)Indication: Vitamin D deficiency, unspecified On: :48 Request Vitamin B-12 (cyanocobalamin) (64769)Indication: Other vitamin B12 deficiency anemia On: :47 Request Lipase (04643)Indication: Chronic pancreatitis On: :47 Request Amylase (87384)Indication: Chronic pancreatitis On: :47 Request D-Dimer (55705)Indication: Anemia On: 37-Jyc-224874:28 Request Comments: stat Metabolic Panel, Comprehensive (93581)Indication: Anemia On: :16 Request TYPE & SCREEN GEL (01458)Indication: Anemia On: :16 Request CBC with manual diff (17462)Indication: Anemia On: :15 Request Lipase (00410)Indication: Chronic pancreatitis On: :30 Request Amylase (08175)Indication: Chronic pancreatitis On: 74-Hjy-895458:30 Request Ferritin (30736)Indication: Iron deficiency anemia due to dietary causes On: 94-Eld-387506:28 Request LIPASE (58703)Indication: Chronic pancreatitis On: 9-Qdf-848396:21 Request AMYLASE (90600)Indication: Chronic pancreatitis On: 1-Yji-742676:21 Request Lipase (27507)Indication: Chronic pancreatitis On: 25-Zvg-658646:12 Request Amylase (30648)Indication: Chronic pancreatitis On: 36-Wyr-684855:12 Request MICROALBUMIN: CREATININE RATIO (51384) AND (01239)Indication: Chronic pancreatitis On: 85-Fmx-004128:12 Request METABOLIC PANEL, COMPREHENSIVE (71769)Indication: Chronic pancreatitis On: 84-Eeh-872419:12 Request LIPID PANEL (69445)Indication: High blood triglycerides On: 56-Cnl-784875:12 Request CBC WITH MANUAL DIFF (20294)Indication: Chronic pancreatitis On: :12 Request Metabolic Panel, Comprehensive (71604)Indication: Chronic pancreatitis On: 0-Xyx-407745:46 Request Lipase (85589)Indication: Chronic pancreatitis On: :46 Request Amylase (89220)Indication: Chronic pancreatitis On: :46 Request CALCIFIDIOL (01943) VIT D 25Indication: Vitamin D deficiency, unspecified On: :43 Request Ferritin (58488)Indication: Iron deficiency anemia due to dietary causes On: :43 Request CBC (Auto) (77924)Indication: Iron deficiency anemia due to dietary causes On: :43 Request PT (Prothrobim Time) (67902)Indication: AFTERCARE, LONG-TERM USE, ANTICOAGULANTS On: :28 Request Lipase (80353)Indication: Chronic pancreatitis On: : Request Amylase (86206)Indication: Chronic pancreatitis On: :25 Request Metabolic Panel, Comprehensive (35975)Indication: Chronic pancreatitis On: :25 Request CBC (Auto) (82003)Indication: Leukopenia On: :25 Request Lipid Panel (83902)Indication: High blood triglycerides On: :25 Request Iron (33225)Indication: Iron deficiency anemia due to dietary causes On: :23 Request Ferritin (02483)Indication: Iron deficiency anemia due to dietary causes On: 6-Yms-684550:23 Request Vitamin B-12 (cyanocobalamin) (25517)Indication: Other vitamin B12 deficiency anemia On: :23 Request CALCIFIDIOL (74757) VIT D 25Indication: Vitamin D deficiency, unspecified On: :23 Request Lipase (05378)Indication: Chronic pancreatitis On: 0-Ygn-069355:21 Request Amylase (76028)Indication: Chronic pancreatitis On: 8-Tco-429423:21 Request Comments: pls add to labs already drawn Metabolic Panel, Comprehensive (83027)Indication: Chronic pancreatitis On: 4-Xyy-644047:07 Request Ferritin (43161)Indication: Iron deficiency anemia due to dietary causes On: 2-Ehb-977233:07 Request CBC (Auto) (65352)Indication: Chronic pancreatitis On: 9-Faa-611999:07 Request LIPID PANEL (73485)Indication: High blood triglycerides On: 4-Qjn-024965:15 Request Iron Binding Capacity (TIBC) (54558)Indication: Anemia On: :53 Request Iron (79323)Indication: Anemia On: :53 Request Ferritin (62746)Indication: Anemia On: :53 Request CBC (Auto) (92989)Indication: Anemia On: :53 Request Metabolic Panel, Comprehensive (96835)Indication: Chronic pancreatitis On: :53 Request OVA & PARASITE DIR SMEAR (85468)Indication: Diarrhea On: :37 Request LEUKOCYTE COUNT, FECAL (95688)Indication: Diarrhea On: :37 Request C.Difficile, Stool (11039)Indication: Diarrhea On: :37 Request GRETTA CULTURE-STOOL (33903)Indication: Diarrhea On: 63-Asf-037227:37 Request Vitamin B-12 (cyanocobalamin) (08824)Indication: Other vitamin B12 deficiency anemia On: 49-Tty-555146:05 Request Iron (42879)Indication: Anemia On: 41-Ban-560308:05 Request Ferritin (20682)Indication: Anemia On: 51-Zsg-204569:05 Request METABOLIC PANEL, COMPREHENSIVE (23691)Indication: High blood triglycerides On: 25-Exj-440273:05 Request CBC WITH MANUAL DIFF (95444)Indication: Anemia On: 28-Eni-588780:05 Request LIPID PANEL (15851)Indication: High blood triglycerides On: 93-Gxu-536198:04 Request nasal influenza swab (64995) X0Atktvuslzt: Unspecified Diagnosis On: 0-Qlq-168136:29 Request Rapid Flu (75692 x 2)Indication: Fever On: 9-Wsg-950113:44 Request Lipid Panel (24708)Indication: High blood triglycerides On: 71-Zhh-305212:53 Request CBC (Auto) (89905)Indication: Chronic pancreatitis On: 78-Vme-870187:51 Request Metabolic Panel, Comprehensive (42598)Indication: Chronic pancreatitis On: 73-Lzn-353189:51 Request Ferritin (31641)Indication: Anemia On: 11-Zpe-090524:51 Request Iron (49752)Indication: Anemia On: :51 Request Vitamin B-12 (cyanocobalamin) (14882)Indication: Other vitamin B12 deficiency anemia On: 50-Cbu-889888:51 Request Lipid Panel (35007)Indication: Malabsorption syndrome On: 84-Zru-949882:39 Request Sed Rate Erythrocyte (68274)Indication: Chronic pancreatitis On: :35 Request CBC, Platelets & Auto Diff (04068)Indication: Chronic pancreatitis On: :35 Request Magnesium (33465)Indication: Chronic pancreatitis On: :35 Request Lipase (29553)Indication: Chronic pancreatitis On: :35 Request Amylase (32497)Indication: Chronic pancreatitis On: 86-Lag-341009:35 Request Metabolic Panel, Comprehensive (25203)Indication: Chronic pancreatitis On: 28-Udj-768080:35 Request CBC (Auto) ([id number])Indication: Abdominal pain, acute, generalized On: 04-Vqm-263531:29 Request Metabolic Panel, Comprehensive ([id number])Indication: Abdominal pain, acute, generalized On: 36-Fwg-679194:29 Request Methylmalonic acid, serum 31415Wvxfszgxop: Other vitamin B12 deficiency anemia On: 33-Tbx-778825:29 Request CULTURE, SPUTUM (06485)Indication: Cough On: 6-Tmi-886847:42 Request Lipase (34006)Indication: Acute pancreatitis On: 1-Izu-654413:59 Request Amylase (04370)Indication: Acute pancreatitis On: 1-Qij-016251:59 Request DESIRAE (ANTINUCLEAR ANTIBODY) (22368)Indication: Pain in unspecified joint On: 1-Gel-694345:48 Request C-REACTIVE PROTEIN (17314)Indication: Pain in unspecified joint On: 0-Vob-234024:48 Request CBC WITH MANUAL DIFF (10949)Indication: Pain in unspecified joint On: 3-Mim-877089:48 Request METABOLIC PANEL, COMPREHENSIVE (72900)Indication: Pain in unspecified joint On: 7-Qqz-585163:48 Request RHEUMATOID FACTOR-QUANT (06146)Indication: Pain in unspecified joint On: 8-Vkj-639885:48 Request SED RATE ERYTHROCYTE (64924)Indication: Pain in unspecified joint On: 0-Iny-808682:48 Request TSH ([id number])Indication: Pain in unspecified joint On: 8-Znp-276238:48 Request GRETTA CULTURE-OTHER (65130)Indication: Pharyngitis, acute On: 56-Rti-848303:12 Request Rapid Strep Test, Office (57260)Indication: Pharyngitis, acute On: 30-Yke-445475:12 Request Comments: negative VITAMIN D, 1, 25-DIHYDROXY (66093)Indication: Chronic pancreatitis On: 85-Ado-361996:46 Request Vitamin B-12 (cyanocobalamin) (91360)Indication: Other vitamin B12 deficiency anemia On: 67-Wtl-475347:43 Request Lipase (35648)Indication: Chronic pancreatitis On: 34-Foy-667809:35 Request Amylase (83313)Indication: Chronic pancreatitis On: 60-Uef-122137:34 Request CBC (Auto) (55911)Indication: Chronic pancreatitis On: 06-Qik-242850:34 Request Metabolic Panel, Comprehensive (19977)Indication: Chronic pancreatitis On: 98-Hkg-202304:34 Request Lipid Panel (45729)Indication: Chronic pancreatitis On: 59-Vpy-549802:34 Request Comments: standing order every 3 months Metabolic Panel, Comprehensive (88452)Indication: Edema On: 30-Uod-050108:13 Request CBC, Platelets & Auto Diff (67170)Indication: Edema On: 39-Gkh-378083:13 Request PTT (Activated Partial Thromboplastin Time) (96643)Indication: Edema On: 26-Trj-880534:12 Request PT (Prothrobim Time) (61238)Indication: Edema On: 37-Esc-575671:12 Request Lipase (32000)Indication: pancreatitis On: :32 Request Amylase (46116)Indication: pancreatitis On: :32 Request CBC (Auto) ([id number])Indication: pancreatitis On: :32 Request Metabolic Panel, Comprehensive (84767)Indication: pancreatitis On: :32 Request Metabolic Panel, Comprehensive (28039)Indication: Fever On: :57 Request GRETTA CULTURE-BLOOD (55463)Indication: Fever On: :56 Request Comments: one from peripheral GRETTA CULTURE-BLOOD ([id number])Indication: Fever On: :56 Request Comments: one from port Sed Rate Erythrocyte (69360)Indication: Fever On: :56 Request CBC, Platelets & Auto Diff (87057)Indication: Fever On: :56 Request Urinalysis, Office (10218)Indication: Fever On: :56 Request GRETTA CULTURE-OTHER ([id number])Indication: Fever On: 4-Sbn-247166:53 Request Rapid Strep Test, Office (19883)Indication: Fever On: :52 Request CBC, Platelets & Auto Diff ([id number])Indication: Chronic pancreatitis On: 9-Rhd-827468:46 Request Lipase (86797)Indication: Chronic pancreatitis On: 2-Yce-325414:46 Request Amylase (14557)Indication: Chronic pancreatitis On: 5-Xxj-324940:46 Request Metabolic Panel, Comprehensive ([id number])Indication: Chronic pancreatitis On: 0-Kym-505179:46 Request FERRITIN ([id number])Indication: Anemia On: 6-Pvw-205320:22 Request VITAMIN B-12 (CYANOCOBALAMIN) (59503)Indication: Other vitamin B12 deficiency anemia On: 0-Gfm-735778:22 Request LIPASE (33742)Indication: Acute pancreatitis On: :22 Request ALBUMIN SERUM ([id number])Indication: Acute pancreatitis On: :22 Request CBC (AUTO) ([id number])Indication: Acute pancreatitis On: :21 Request METABOLIC PANEL, BASIC (66444)Indication: Abnormal blood chemistry On: :21 Request Planned Encounters Medical; TIMO 4 Month Fu - On: 01-Sep-2018 13:30 [facility] Dima DURAN, Adalid Pizano MD, Adalid Rebollar Planned Procedures Flu Vaccine (Quadrivalent) On: 31-Mar-2018 Intent 03339Li: COMFORT Gallegos Comments: Lot #:[id number] date: 2-08-30Hsgmbv given:0.5mlRoute: IMSite given:L DltdGiven by: Kumar and ABN signed [employer] SCREENING DIGITAL TOMOSYNTHESIS On: 20-Dec-2017 Intent OF BREAST (34351)By: Adalid Pizano MD, MD, Dana M DEXA SCAN AXIAL SKELETON On: 20-Dec-2017 Intent (85029)By: Adalid Pizano MD, MD, Dana M SCREENING DIGITAL TOMOSYNTHESIS On: 29-Apr-2017 Intent OF BREAST (18601)By: Adalid Pizano MD, MD, Dana M Flu Vaccine (Quadrivalent) On: 29-Apr-2017 Intent 88346Hb: Adalid Pizano MD Comments: lot: [id number]: 12/19/ite/route: L kelin, IMamt: 0.5mlVIS and ABN signed when applicableChelsea, BANK CASHIER Adalid Pizano MD CT - Abdomen & Pelvis (IV On: 01-Oct-2016 Intent Contrast Needed)By: Dima DURAN, Comments: attentinon pancrease follow up on kidney cyst. 07-20 creat 0.76 Adalid Ghosh MD Flu Vaccine (Quadrivalent) On: 17-May-2016 Intent 11510Fk: Adalid Pizano MD Comments: FLUlot: [id number]:11/17site:Lt deltoidroute:IMdose:.5mlDEMICK, MA Adalid Pizano MD Aerosol Treatment (90655)By: On: 27-Apr-2016 Intent Slarb PLUMBING SERVICE TECHNICIAN, Kacey DEXA SCAN AXIAL SKELETON On: 09-Mar-2016 Intent (32859)By: Adalid Pizano MD, MD, Dana M MAMMOGRAM, SCREENING, BOTH On: 09-Mar-2016 Intent BREAST (81237)By: Adalid Pizano MD, MD, Dana M DEXA SCAN AXIAL SKELETON On: 15-Jul-2015 Intent (14813)By: BoneAdalid leigh MD, MD, Dana M MAMMOGRAM, SCREENING, BOTH On: 15-Jul-2015 Intent BREAST (91085)By: Adalid Pizano MD, MD, Dana M Aerosol Treatment (02141)By: On: 08-Jul-2015 Intent Pamella Saavedra CNP Aerosol Treatment (88488)By: On: 08-Jul-2015 Intent Slarb PLUMBING SERVICE TECHNICIAN, Kacey XR HIP RIGHT COMPLETE (78937)By: On: 30-Jun-2015 Intent Adalid Pizano MD, MD, Comments: right hip Adalid Rebollar Radiology - PelvisBy: Dima On: 24-Jun-2015 Intent Adalid DURAN MD, Dana M Comments: and right hip xray Venous Doppler - RightBy: On: 24-Jun-2015 Intent Adalid Pizano MD, MD, Comments: leg Adalid Rebollar Flu Vaccine (Quadrivalent) On: 15-Apr-2015 Intent 93833Ws: Adalid Pizano MD Comments: lot [id number]: 01/01/2016site/route L kelin, IMamt 0.5mlVIS and ABN signed when applicableChelsea, CMAFM4 Adalid Pizano MD Radiology - ChestBy: Quentin ARGUETA, On: 07-Feb-2015 Intent Adeola Aerosol Treatment ([id number])By: On: 07-Feb-2015 Intent Ailyn Aguilar Solu -Medrol Injection, 125 mg On: 05-Feb-2015 Intent (J2930)By: Pamella Saavedra CNP Comments: lot:[id number]:route:IMdose:125MGsite: R glutGiven by: FOX Angeles Solu -Medrol Injection, 125 mg On: 04-Feb-2015 Intent (J2930)By: Pamella Saavedra CNP Aerosol Treatment (45377)By: On: 04-Feb-2015 Intent Pamella Saavedra CNP MAMMOGRAM, SCREENING, BOTH On: 14-Jan-2015 Intent BREAST (41755)By: Adalid Pizano MD, MD, Dana M Prevnar 13 (38314)By: Dima On: 16-Jul-2014 Intent Adalid DURAN MD, Dana M ADMINISTRATION OF INFLUENZA On: 22-Apr-2014 Intent VIRUS VACCINE (G0008)By: Adalid Pizano MD, MD, Dana M FLU VAC, SPLIT, >3 YEARS, On: 22-Apr-2014 Intent INTRAMUSC (58419)By: Dima DURAN, Comments: Lot #:[id number] date:mount given:0.5mlRoute: IMSite given:left deltoid Given by: Adalid Mota MD Phenergan Injection, up to 50 mg On: 12-Dec-2013 Intent (J2550)By: Pamella Saavedra CNP MAMMOGRAM, SCREENING, BOTH On: 25-Sep-2013 Intent BREASTS (20613)By: Adalid Pizano MD, MD, Dana M Eprescribed prescriptions On: 25-Sep-2013 Intent (G8553)By: Adalid Pizano MD, MD, Dana M Aerosol Treatment (69019)By: On: 05-Sep-2013 Intent [address]ella Saavedra CNP CT - Abdomen & Pelvis (IV On: 04-Jun-2013 Intent Contrast Needed)By: Adalid Pizano MD, MD, Dana M DXA, BONE DENSITY, AXIAL On: 04-Jun-2013 Intent SKELETON (26049)By: Dima DURAN, Comments: postmenapausal Adalid Ghosh MD MAMMOGRAM, SCREENING, BOTH On: 04-Jun-2013 Intent BREASTS (54725)By: Adalid Pizano MD, MD, Dana M Pulse Oximetry (01811)By: On: 04-Jun-2013 Intent COMFORT Gallegos Eprescribed prescriptions On: 14-May-2013 Intent (G8553)By: Melba Malloy ELECTROCARDIOGRAM, COMPLETE On: 26-Dec-2012 Intent (ECG) (43730)By: Adalid Pizano MD, MD, Dana M Eprescribed prescriptions On: 26-Dec-2012 Intent (G8553)By: Makenzie Allred LPN MAMMOGRAM, SCREENING, BOTH On: 24-Aug-2012 Intent BREASTS (15436)By: Dima DURAN, Adalid Ghosh MD Pulse Oximetry (26910)By: On: 29-Jun-2012 Intent COMFORT Gallegos Radiology - Chest- PA and LatBy: On: 01-Jun-2012 Intent Sofia Younger DO Eprescribed prescriptions On: 01-Jun-2012 Intent (G8553)By: Kim Garces LPN FLU VAC, SPLIT, >3 YEARS, On: 28-Apr-2012 Intent INTRAMUSC (84776)By: Balaji, Comments: Lot:[id number]:12.31.12Dose:prefilledRoute:IMSite:L DltdGiven By:BARRY Garcia IMMUNIZ ADMNIN, 1 VAC, On: 28-Apr-2012 Intent SNGL/COMBO (35502)By: Radha Carpio TDAP VACCINE >7 IM (82455)By: On: 24-Nov-2011 Intent Long Makenzie ABBOTT Comments: Lot #[id number]- 11.13Site- L arm, ImDose prefilledgiven by: Makenzie MAMMOGRAM, SCREENING, BOTH On: 01-Nov-2011 Intent BREASTS (38101)By: Dima DURAN, Adalid Ghosh MD Aerosol Treatment (63224)By: On: 14-Oct-2011 Intent Sofia Younger DO Comments: [...] SPLIT, >3 YEARS, On: 20-Apr-2011 Intent INTRAMUSC (71562)By: Cayden Comments: Lot #[id number]-2/30/12Site-left deltoidgiven by: Jared Rodarte LPN LPN, Connie IMMUNIZ ADMNIN, 1 VAC, On: 20-Apr-2011 Intent SNGL/COMBO (75363)By: Chery Rodarte LPN 12 Injection, 1000 mcg On: 22-Mar-2011 Intent (J3420)By: COMFORT Gallegos DRAIN/INJECT MAJOR JOINT OR On: 22-Mar-2011 Intent BURSA ()By: COMFORT Gallegos Comments: Lot #:[id number] date: given:2ml Route: intra articular Site given:bilateral knees Given by: Dr. Pizano Pulse Oximetry (10315)By: Janieesjunie On: 19-Mar-2011 Intent MANAGER FOREIGN, Adeola Aerosol Treatment (30409)By: On: 19-Mar-2011 Intent Ciesa MANAGER FOREIGN, Adeola DRAIN/INJECT MAJOR JOINT OR On: 12-Mar-2011 Intent BURSA ()By: COMFORT Gallegos Comments: Lot #:[id number] date: given:2ml Route: intra articular Site given:bilateral knees Given by: Dr. Pizano DRAIN/INJECT MAJOR JOINT OR On: 04-Mar-2011 Intent BURSA ()By: COMFORT Gallegos Comments: Lot #:[id number] date: given:2mlRoute: intra articular Site given:Bilateral knees Given by: Dr. Pizano injection #1 Kenalog Injection, 10 mgm On: 08-Feb-2011 Intent (J3301)By: Adalid Pizano MD Comments: x 8 Adalid Pizano MD Breast Ultrasound - LeftBy: On: 08-Feb-2011 Intent Adalid Pizano MD, MD, Dana M DXA, BONE DENSITY, AXIAL On: 02-Nov-2010 Intent SKELETON (18690)By: Adalid Pizano MD, MD, Dana M MAMMOGRAM, SCREENING, BOTH On: 02-Nov-2010 Intent BREASTS (02129)By: Adalid Pizano MD, MD, Dana M FLU VAC, SPLIT, >3 YEARS, On: 17-Jun-2010 Intent INTRAMUSC (95668)By: Cayden Comments: Lot #[id number] 4PExp-10/12Site-right deltoidgiven by:Chery PAVON LPN IMMUNIZ ADMNIN, 1 VAC, On: 17-Jun-2010 Intent SNGL/COMBO (48344)By: Chery Rodarte LPN DXA, BONE DENSITY, AXIAL On: 30-Sep-2009 Intent SKELETON (81641)By: Dima DURAN, Adalid Pizano MD, Adalid Rebollar MAMMOGRAM, SCREENING, BOTH On: 30-Sep-2009 Intent BREASTS (87792)By: Dima DURAN, Adalid Ghosh MD B 12 Injection, 1000 mcg On: 30-Sep-2009 Intent (J3420)By: COMFORT Gallegos Pulse Oximetry (62475)By: Quentin On: 09-Apr-2009 Intent MANAGER FOREIGN, Adeola Aerosol Treatment (21210)By: On: 09-Apr-2009 Intent Ciesa MANAGER FOREIGN, Adeola FLU VAC, SPLIT, >3 YEARS, On: 26-Mar-2009 Intent INTRAMUSC (94971)By: Lisa RN, Andie IMMUNIZ ADMNIN, 1 VAC, On: 26-Mar-2009 Intent SNGL/COMBO (00647)By: Lisa RN, Comments: Lot #: [id number] date: mount given: 0.5 mlRoute: IMSite given: left deltoidGiven by: SCAR Montenegro INJECTION, VITAMIN B-12 On: 07-Feb-2009 Intent CYANOCOBALAMIN, UP TO 1000 MCG Comments: Lot #[id number] date:mount given:1mlSite given: right deltoidGiven by:Judith. (Special Coverage Instructions Apply. See CIM: 45-4 and MCM: 2049) (J3420)By: COMFORT Gallegos Pulse Oximetry (42508)By: Ceci On: 04-Dec-2008 Intent DORosa Maria Comments: post uyexsrpfd23% Aerosol Treatment (84530)By: On: 04-Dec-2008 Intent Fast DORosa Maria A Comments: done-aw B 12 Injection, 1000 mcg On: 04-Dec-2008 Intent (J3420)By: Tonia Garcia Comments: Lot #[id number]-05/2010Site-right modplxzTxzl1734sur/1mlgiven by Debbie Lei LPN Pulse Oximetry (62677)By: On: 04-Dec-2008 Intent Tonia Garcia Comments: 91% [...] Intent (J3420)By: COMFORT Gallegos Comments: Lot #[id number]-05/2010Site-right knowspsHzep2418hvj/1mlgiven by Debbie Lei LPN DRAIN/INJECT MAJOR JOINT OR On: 09-Oct-2008 Intent BURSA ()By: COMFORT Gallegos Comments: Lot #:[id number] date:mo given:Route: intra articular Site given:bilateral knees Given by: Dr. Pizano DRAIN/INJECT MAJOR JOINT OR On: 01-Oct-2008 Intent BURSA ()By: COMFORT Gallegos Comments: Lot #:[id number] date: given:2.5ml Route:intra-articular Site given:Bilateral knees Given by: Dr. Pizano DRAIN/INJECT MAJOR JOINT OR On: 24-Sep-2008 Intent BURSA ()By: COMFORT Gallegos Comments: Lot #:[id number] date: Amount given:2.5 mlRoute: intra-articular Site given:bilateral knees Given by: Dr. Pizano DRAIN/INJECT MAJOR JOINT OR On: 17-Sep-2008 Intent BURSA ()By: COMFORT Gallegos Comments: Lot #:[id number] date:mo given:2 grams Route: Intra articular Site given: bilateral knees Given by: Dr. Pizano DRAIN/INJECT MAJOR JOINT OR On: 13-Sep-2008 Intent BURSA (75830)By: COMFORT Gallegos Comments: Lot #:[id number] date:05-10 Amount given:2.5MLRoute: INTRA ARTICULAR Site given:bilateral knees Given by: Dr. Pizano B 12 Injection, 1000 mcg On: 10-Sep-2008 Intent (J3420)By: COMFORT Gallegos B 12 Injection, 1000 mcg On: 29-Jul-2008 Intent (J3420)By: Denise Collazo Comments: Amt: 1mlLot: [id number]: 02/10Route: IMSite: right deltTolerated: wellGiven By: SCAR Sood Pulse Oximetry (10745)By: Quentin On: 29-Jul-2008 Intent MANAGER FOREIGN, Adeola Aerosol Treatment (19377)By: On: 29-Jul-2008 Intent Ciesa MANAGER FOREIGN, Adeola Aerosol Treatment (65737)By: On: 16-Jul-2008 Intent Sofia Younger DO Comments: done-awnoise resolved and much more air exchange Pulse Oximetry (31947)By: Carisa On: 16-Jul-2008 Sofia Davis DO Comments: 93% Solu- Medrol Injection, 125mg On: 16-Jul-2008 Intent (J2930)By: Sofia Younger DO Comments: Lot #[id number]-6/11Site-right sgfGddz0fz/125mggiven by Debbie Lei LPN B 12 Injection, 1000 mcg On: 30-Apr-2008 Intent (J3420)By: Prema Lei Comments: Lot #[id number]-5/10Site-right qgxcfzmQxsm2lrhznqj by Debbie Lei LPN DXA, BONE DENSITY, AXIAL On: 30-Apr-2008 Intent SKELETON (34868)By: Dima DURAN, Comments: estrogen def Adalid Pizano MD, Adalid Rebollar MAMMOGRAM, SCREENING, BOTH On: 30-Apr-2008 Intent BREASTS (49220)By: Dima DURAN, Adalid Ghosh MD B 12 Injection, 1000 mcg On: 27-Mar-2008 Intent (J3420)By: Tonia Garcia Comments: Lot #:[id number] date:mount given:.1mlRoute: IMSite given:left deltoidGiven by: EDEN Salcido Pulse Oximetry (84160)By: On: 27-Mar-2008 Intent Tonia Garcia Comments: 96% Pulse Oximetry (42951)By: On: 14-Mar-2008 Intent COMFORT Gallegos B 12 Injection, 1000 mcg On: 06-Feb-2008 Intent (J3420)By: Pamella Saavedra CNP Comments: Lot #:[id number] date: Amount given:1ml Route: IMSite given:left deltoid Given by: billy Solu -Medrol Injection, 125 mg On: 06-Feb-2008 Intent (J2930)By: Pamella Saavedra CNP Comments: Lot #:[id number] date:mount given:125mgRoute: IMSite given:left gluteal Given by: aretha Pulse Oximetry (36033)By: Quentin On: 06-Feb-2008 Intent Pamella ARGUETA Aerosol Treatment (18987)By: On: 06-Feb-2008 Intent Pamella Saavedra CNP B 12 Injection, 1000 mcg On: 21-Dec-2007 Intent (J3420)By: Ledy Nogueira Comments: given in right deltoid, lot#[id number], exp.3.10 >Wf. B 12 Injection, 1000 mcg On: 03-Oct-2007 Intent (J3420)By: Pamella Saavedra CNP Pulse Oximetry (89680)By: Quentin On: 03-Oct-2007 Intent Pamella ARGUETA Aerosol Treatment (65588)By: On: 03-Oct-2007 Intent Pamella Saavedra CNP Pulse Oximetry (61365)By: Lenny On: 16-Aug-2007 Intent Cira Aerosol Treatment (12539)By: On: 16-Aug-2007 Intent Sofia Younger DO Comments: no wheeze and better air exchange Solu- Medrol Injection, 125mg On: 16-Aug-2007 Intent (J2930)By: Sofia Younger DO Comments: given in left buttocks.lot # [id number]\Exp 02/2010 SPECIMEN HNDLNG/TRNSPRT, OFFC > On: 16-Aug-2007 Intent LAB (10035)By: Sofia Younger DO B 12 Injection, 1000 mcg On: 01-Aug-2007 Intent (J3420)By: Prema Lei Comments: Lot #[id number]-05/12Site-left cyeorxqFixw7xtywdhi by Debbie Lei [facility] CT - ChestBy: Adalid Pizano MD On: 01-Aug-2007 Intent Adalid Pizano MD FLU VAC, SPLIT, >3 YEARS, On: 18-Apr-2007 Intent INTRAMUSC (62461)By: Adalid Pizano MD, MD, Dana M IMMUNIZ ADMNIN, 1 VAC, On: 18-Apr-2007 Intent SNGL/COMBO (40016)By: Adalid Pizano MD, MD, Dana M B [...] HNDLNG/TRNSPRT, OFFC > On: 10-Oct-2006 Intent LAB (21361)By: Adalid Pizano MD, MD, Dana M Solu -Medrol Injection, 125 mg On: 16-Sep-2006 Intent (J2930)By: Adalid Pizano MD Comments: lot # [id number] exp 04-[address] gluteal by Adalid Chacon lpn, MD Pulse Oximetry (58933)By: On: 16-Sep-2006 Intent Adalid Pizano MD, MD, Dana M Aerosol Treatment (90479)By: On: 16-Sep-2006 Intent Adalid Pizano MD, MD, Dana M Pulse Oximetry (63304)By: On: 04-Aug-2006 Intent Dima DURAN, Adalid Ghosh MD EKG (00679)By: Adalid Pizano MD On: 08-Jul-2006 Intent Adalid Morfin MD IMMUNIZ ADMNIN, 1 VAC, On: 06-May-2006 Intent SNGL/COMBO (32797)By: Ramiro ABBOTT, Peg FLU VAC, SPLIT, >3 YEARS, On: 06-May-2006 Intent INTRAMUSC (21894)By: Ramiro ABBOTT, Comments: Lot #:Expiration date:Amount given:Route: imSite given:r armGiven by: galina golden lpn Peg Echo CompleteBy: Dima DURAN, On: 19-Apr-2006 [address] CT - Abdomen & PelvisBy: Dima On: 19-Apr-2006 Adalid Davis MD, MD, Dana M Comments: ?obstruction, pancreatitis, attention kidney cyst send to [facility] gastrolog[facility] Planned Medications INJECTION, METHYLPREDNISOLONE SODIUM SUCCINATE, [...] Advance Directives Name Dates Details Immunization Registry [place] - Effective on Effective: 29-Apr-201704/29/2017. Expiration date [...] Nutrition: balanced diet and supplemental vitamins. The il dical issues the patient is following up [...] for this Dr Jacob rabago at [facility]-- -- feels similiar to what she had [...] months. Note for Fever: pt had epidural 5-28-03Xoyvabyxx Diagnosis: Dehydration(276.51), Abdominal Pain,Generalized (789.07), FEVER (780.6) [...] care visit: swelling better with aldactone, reviewed group segment consultant's letter use compression, work up from [...] weekend , bite by flies[facility] no fever abd pain still hit [...] Epigastric pain (789.06), SVC thrombosis, Fibromyalgia (729.1), [facility] Visit On: 21-Nov-2006 [...] chemistry (790.6) [facility] Payers [facility] J zaman guarantor
--- OUTSIDE RECORDS SUMMARY | 2018-08-02 06:28 | XMS RPT_ITS | Continuity of Care Document ---
:1955 Author Organization [facility] Address [address] [place] [address] Phone Care Team Providers Name Role Phone [...] cervical.doing every 6 months. ariel leaving to [place]. reconmmend Dr. romero and i talk to [...] really expensive can use an equivalent Creon 36414 UNIT Oral Capsule Delayed Release Particles 2 [...] MD, Dana M Start : 30-Nov-2016 Active Eldora 5-325 MG Oral Tablet 1 (one) Tablet [...] Start : 14-Apr-2018 Active Vitamin D (Ergocalciferol) 22066 UNIT Oral Capsule 1 (one) capsule twice [...] MD, Adalid Rebollar Start : 06-Feb-2018 Active Comments:[id number] called to [facility] ADVAIR DISKUS, 100-50MCG/DOSE [...] End : 24-Aug-2012 Inactive CALCIUM 500/VITAMIN D, [id number] (Oral Tablet) 1 (one) Tablet daily for [...] : 09-Mar-2016 End : 04-Jun-2016 Inactive Drisdol 74241 UNIT Oral Capsule 1 Capsule two times [...] : 21-Dec-2007 End : 14-Mar-2008 Inactive Nystatin 436921 UNIT/GM External Powder 1 Powder bid for [...] Quantity: 1 {Package} Refills: 0 Ordered:08-Jul-2015 Slarb BEATER WORKER HELPER, Kacey Start : 24-Jun-2015 End : 08-Jul-2015 [...] cervical.doing every 6 months. george leaving to [place]. reconmmend Dr. romero and i talk to [...] Procedures Procedure Dates Details [place]ACC, [place] (53686) Date: 01-Oct-2016 Cancelled Cholecystectomy Completed GASTRIC BYPASS, OPEN (38256) Completed Comments: 1997, Dr. lindsay did for recurrent pancreatitis, this is what helped her. Hysterectomy; Abdominal Completed JEJUNOSTOMY (23422) Completed Comments: 1995 closed 1997 when had gastric bypass, because of pancreatitis and was tube feed for 2 years Date Value Details 21-Mar-2018 Dexa Bone Density Study Result: Comments: See Note; NOTES: [facility] Imaging Services [address] [place] [address] Dexa Bone Density Study MR#: [id number] Acct: [id number] Name: JOSE J COBIAN Rep #: [id number] : 1955 F 63 From: Bartolome Patel MD PCP: Adalid Pizano MD Status: REG CLI Study: Dexa Bone Density Study Date of Exam: 03/21/18 Exam# [id number] Ordering Dr: Adalid Pizano MD STUDY: D [...] Bartolome Patel MD at 15:07 EDT Tel [phone], Service support , CC: Adalid Pizano MD Epoxy Coatings Installer: Signed 21-Mar-2018 SCREENING MAMM (CAD), BILAT Result: Comments: See Note; NOTES: [facility] Imaging Services [address] [place] [address] SCREENING MAMM (CAD), BILAT MR#: [id number] Acct: [id number] Name: JOSE J COBIAN Rep #: [id number] : 1955 F 63 From: Bartolome Patel MD PCP: Adalid Pizano MD Status: [facility] Study: SCREENING MAMM (CAD), BILAT Date of Exam: 03/21/18 Exam# [id number] Ordering Dr: Adalid Pizano MD MAMMOGRAPHY - [...] biopsy of a clinically suspicious abno rmality. [id number] Electronically Signed: Bartolome Patel MD at 13:21 EDT Tel [phone], Service support , CC: Adalid Pizano MD Epoxy Coatings Installer: Signed 07-Nov-2017 Operative Report Result: Comments: See Note; NOTES: [facility] Medical Records Department [address] [place] [address] Operative Report 11/07/17 1027 MR#: [id number] Acct: [id number] Name: JOSE J COBIAN Rep #: [id number] : 1955 62 From: Bubba Romero MD PCP: Adalid Pizano MD Status: REG SDC Y Location: [place] [address] Problem List (1) Disc disease, degenerative, lumbar [...] 4 Views Result: Comments: See Note; NOTES: [facility] Imaging Services [address] [place] [address] L/S Spine Min 4 Views MR#: [id number] Acct: [id number] Name: JOSE J COBIAN Rep #: [id number] : 1955 F 62 From: Bartolome Patel MD PCP: Adalid Pizano MD Status: [facility] Study: L/S Spine Min 4 Views Date of Exam: 11/07/17 Exam# [id number] Ordering Dr: Bubba Romero MD PROCEDURE : [...] Bartolome Patel MD at 11:01 EDT Tel [phone], Service support , CC: Adalid Pizano MD; Bubba Romero Epoxy Coatings Installer: Signed 04-Oct-2017 Cardiology Visit Report Result: Comments: See Note; NOTES: [facility] [address] [place] [address] OFFICE VISIT Date of Service: 10/03/17 MR#: [id number] Acct: [id number] Name: JOSE J COBIAN Rep #: [id number] : 1955 Provider: Chanel Shaw Age/Sex: 62/F Location: [facility] Status: Signed HPI HPI Details: [...] Intake Visit Reasons: NOT SEEN SINCE 05/2016 Weblogic Administrator Required: No Accompanied by: Is patient in [...] mg PO DAILY@0800 10/20/15 [History Confirmed 10/03/17] Vernon codone Bitart/Apap 5-325 [Eldora 5/325] 1 tab PO Q4H PRN PRN [...] infarction beginning age 61's, has had several MN's CAD (co ronary artery disease) history of [...] Operative Report Result: Comments: See Note; NOTES: [facility] Medical Records Department [address] [place] [address] Operative Report 09/05/17 0944 MR#: [id number] Acct: [id number] Name: JOSE J COBIAN Rep #: [id number] : 1955 62 From: Bubba Romero MD PCP: Adalid Pizano MD Status: REG [facility] Y Location: [place] [address] Problem List (1) Lumbosacral spondylosis Status: Chronic [...] Romero MD CC: Adalid Pizano MD; Bubba Rmoero Signed 04-Sep-2017 L/S Spine Min 4 Views Result: Comments: See Note; NOTES: [facility] Imaging Services [address] [place] [address] L/S Spine Min 4 Views MR#: [id number] Acct: [id number] Name: JOSE J COBIAN Rep #: [id number] : 1955 F 62 From: Bartolome Patel MD PCP: Adalid Pizano MD Status: [facility] Study: L/S Spine Min 4 Views Date of Exam: 09/05/17 Exam# [id number] Ordering Dr: Bubba Romero MD PROCEDURE : [...] Bartolome Patel MD at 9:02 EST Tel [phone], Service support , CC: Adalid Pizano MD; Bubba Romero Epoxy Coatings Installer: Signed 08-Aug-2017 Operative Report Result: Comments: See Note; NOTES: [facility] Medical Records Department [address] [place] [address] Operative Report 08/08/17 1408 MR#: [id number] Acct: [id number] Name: JOSE J COBIAN Rep #: [id number] : 1955 62 From: Bubba Romero MD PCP: Adalid Pizano MD Status: [facility] Y Location: [facility] Problem List (1) Lumbosacral radiculopathy Status: Chronic [...] 3 Views Result: Comments: See Note; NOTES: [facility] Imaging Services [address] [place] [address] Lumbar Spine 2 or 3 Views MR#: [id number] Acct: [id number] Name: JOSE J COBIAN Rep #: [id number] : 1955 F 62 From: Bartolome Patel MD PCP: Adalid Pizano MD Status: [facility] Study: Lumbar Spine 2 or 3 Views Date of Exam: 08/08/17 Exam# [id number] Ordering Dr: Bubba Romero MD P ROCEDURE: [...] Bartolome Patel MD at 11:32 EST Tel [phone], Service support , CC: Adalid Pizano MD; Bubba Romero Epoxy Coatings Installer: Signed 09-May-2017 Operative Report Result: Comments: See Note; NOTES: [facility] Medical Records Department [address] [place] [address] Operative Report 05/09/17 1348 MR#: [id number] Acct: [id number] Name: JOSE J COBIAN Rep #: [id number] : 1955 62 From: Bubba Romero MD PCP: Adalid Pizano MD Status: [facility] Y Location: [place] [address] Report of Operation Date of Procedure: 05/09/17 [...] signed by Bubba Romero MD> Date Bubba oRmero MD CC: Adalid Pizano MD; Bubba Romero Signed 09-May-2017 Fluor Guidance for Spine Inj Result: Comments: See Note; NOTES: [facility] Imaging Services [address] [place] [address] Fluor Guidance for Spine Inj MR#: [id number] Acct: [id number] Name: JOSE J COIBAN Rep #: [id number] : 1955 F 62 From: Bartolome Patel MD PCP: Adalid Pizano MD Status: [facility] Study: Fluor Guidance for Spine Inj Date of Exam: 05/09/17 Exam# [id number] Ordering Dr: Bubba Romero MD PROCEDURE: Caudal [...] Bartolome Patel MD at 14:03 EST Tel [phone], Service support , CC: Adalid leigh MD; Bubba Romero Epoxy Coatings Installer: Signed 29-Apr-2017 L/S Spine Min 4 Views Result: Comments: See Note; NOTES: [facility] Imaging Services [address] [place] [address] L/S Spine Min 4 Views MR#: [id number] Acct: [id number] Name: JOSE J COBIAN Rep #: [id number] : 1955 F 62 From: Feliberto Sim MD PCP: Adalid Pizano MD Status: REG CLI Study: L/S Spine Min 4 Views Date of Exam: 04/29/17 Exam# [id number] Ordering Dr: Lizeth Sanches STUDY: X-RAY - [...] disc disease, L3-L4, L2-L3 Electronically Signed: Feliberto Smi MD at 11:26 EDT Tel , Service support , CC: Lizeth Sanches; Adalid Pizano MD Epoxy Coatings Installer: Signed 21-Mar-2017 Operative Report Result: Comments: See Note; NOTES: [facility] Medical Records Department [address] [place] [address] Operative Report 03/21/17 0841 MR#: [id number] Acct: [id number] Name: JOSE J COBIAN Rep #: [id number] : 1955 62 From: Bubba Romero MD PCP: Adalid Pizano MD Status: [facility] Y Location: [facility] Problem List (1) Cervical spine degeneration Status: [...] 5 Views Result: Comments: See Note; NOTES: [facility] Imaging Services [address] [place] [address] Cerv Spine 4 or 5 Views MR#: [id number] Acct: [id number] Name: JOSE J COBIAN Rep #: [id number] : 1955 F 62 From: Daniel Manzano DO PCP: Adalid Pizano MD Status: [facility] Study: Cerv Spine 4 or 5 Views Date of Exam: 03/21/17 Exam# [id number] Ordering Dr: Bubba Romero MD STUDY: X-RAY - CERVICAL SPINE REASON FOR EXAM: Female, 62 years old. Cervical block TECHNIQUE: 4 view(s) of the cervical spine were obtained. COMPARISON: None FINDINGS: Face t block was performed with 4 spot fluoroscopy images obtained. Total fluoroscopy time 14.7 seconds. Please see performing physician's report for further details ORD ER #: [id number] RAD/Cerv Spine 4 or 5 Views IMPRESSION: As above Electronically Signed: Daniel Manzano DO at 16:12 EDT Tel , Service support , CC: Adalid Pizano MD; Bubba Romero Epoxy Coatings Installer: Signed 17-Jan-2017 Operative Report Result: Comments: See Note; NOTES: [facility] Medical Records Department [address] [place] [address] Operative Report 01/17/17 1246 MR#: [id number] Acct: [id number] Name: JOSE J COBIAN Rep #: [id number] : 1955 61 From: Bubba Romero MD PCP: Adalid Pizano MD Status: DEP [facility] Y Location: [facility] Problem List (1) Cervical spine degeneration Status: [...] 5 Views Result: Comments: See Note; NOTES: [facility] Imaging Services [address] [place] [address] Verdana 4d Cerv Spine 4 or 5 Views MR#: [id number] Acct: [id number] Name: JOSE J COBIAN #: [id number] : 1955 F 61 From: Tonia Galvan MD PCP: Adalid Pizano MD Status: [facility] Study: Cerv Spine 4 or 5 Views Date of Exam: 01/17/17 Exam# [id number] Ordering Dr: Bubba Romero MD STUDY: X-RAY [...] Tonia Galvan MD at 16:36 EDT Tel [phone], Service support , CC: Adalid Pizano MD; Bubba Romero Epoxy Coatings Installer: Signed 09-Oct-2016 Abdomen/Pelvis WITH Contrast Result: Comments: See Note; NOTES: [facility] Imaging Services [address] [place] [address] Shiradaolvin 4d Abdomen/Pelvis WITH Contrast MR#: [id number] Acct: [id number] Name: VIRAJ COBIAN Rep #: [id number] : 1955 F 61 From: Enrike Peres PCP: Adalid Pizano MD Status: REG CLI Study: Abdomen/Pelvis WITH Contrast Date of Exam: 10/09/16 Exam# [id number] Ordering Dr: Adalid Pizano MD STUDY: CT [...] at 9:47 EDT Tel , Service support [phone], CC: Adalid Pizano MD Epoxy Coatings Installer: Signed 23-Aug-2016 Operative Report Result: Comments: See Note; NOTES: [facility] Medical Records Department [address] [place] [address] Operative Report MR#: [id number] Acct: [id number] Name: JOSE J COBIAN Rep #: [id number] : 1955 61 From: Bubba Romero MD PCP: Adalid Pizano MD Status: [facility] DATE OF SERVICE: 08/09/2016 DATE OF [...] indicated. Bubba Romero MD T: NTS JOB: [id number] 08/23/16 1357 <Electronica y signed by Bubba Romero MD> Date Bubba Romero MD Cosigner Signature (If Indicated): Date ____ CC: Adalid Pizano MD; Bubba Romero Date Dictated: 08/09/161 Date Transcribed: 08/09/161310 Epoxy Coatings Installer: Signed 09-Aug-2016 Thoracic Spine 3 Views Result: Comments: See Note; NOTES: [facility] Imaging Services [address] [place] [address] Verdana 4d Thoracic Spine 3 Views MR#: [id number] Acct: [id number] Name: JOSE J COBIAN p #: [id number] : 1955 F 61 From: Azalia Fernandes MD PCP: Adalid Pizano MD Status: [facility] Study: Thoracic Spine 3 Views Date of Exam: 08/09/16 Exam# [id number] Ordering Dr: Bubba Romero MD [facility] DY: X-RAY - THORACIC SPINE REASON FOR [...] at 1 2:18 EST , Service support [phone], CC: Adalid Pizano MD; Bubba Romero Epoxy Coatings Installer: Signed 01-Jun-2016 PT D/C of Non Returning Pt (1) Result: Comments: See Note; NOTES: [facility] Physical Therapy [facility] [address] [place], [place] [address] Fax REHABILITATION SERVICES DISCHAR GE SUMMARY MR#: [id number] Acct: [id number] Name: JOSE J COBIAN Rep #: [id number] Operative Report Result: Comments: See Note; NOTES: [facility] Medical Records Department [address] [address] Operative Report MR#: [id number] Acct: [id number] Name: JOSE J COBIAN Rep #: [id number] : 1955 61 From: Bubba Romero MD PCP: Adalid Pizano MD Status: [facility] DATE OF SERVICE: 03/22/2016 DATE OF SERVICE: March 22, 2016 ATTENDING PHYSICIAN: Bubba oRmero MD PROCEDURE: Left-sided thoracic facet steroid injection, [...] indicated. Bubba Romero MD T: NTS JOB: [id number] 04/05/16 1351 <E lectronically signed by Bubba Romero MD> Date Bubba Romero MD Cosigner Signature (If Indicated): Date CC: Adalid Pizano MD; Bubba Romero Date Dictated: 03/22/161415 Date Transcribed: 03/22/161415 Epoxy Coatings Installer: Signed 01-Apr-2016 Echocardiogram Complete Result: Comments: See Note; NOTES: [facility] Cardiovascular Services [address] [place] [address] Echo Complete 04/01/16 1256 MR#: [id number] Acct: [id number] Name: JOSE J COBIAN Rep #: [id number] : 1955 61 From: Antonino Lucas MD Attending Dr: Antonino Lucas MD Status: REG I Ordering Dr: Antonino Lucas MD Date: 04/01/16 Location: [facility] Sex: F C Admitted: Reason For Study: [...] Dictated: 04/01/16 1256 Date Transcribed: 04/01/16 1515 Epoxy Coatings Installer: Signed 22-Mar-2016 Breast Limited Unilateral Result: Comments: See Note; NOTES: [facility] Imaging Services [address] [place] [address] Verdana 4d Breast Limited Unilateral MR#: [id number] Acct: [id number] Name: JOSE J COBIAN Rep #: [id number] : 1955 F 61 From: Bartolome Patel MD PCP: Adalid Pizano MD Status: REG CLI Study: Breast Limited Unilateral Date of Exam: 03/22/16 Exam# [id number] Ordering Dr: Zack Pizano MD STUDY: ULTRASOUND [...] Bartolome Patel MD at 12:35 EDT Tel [phone], Service support [phone], CC: Adalid Pizano MD Epoxy Coatings Installer: Signed 19-Mar-2016 Thoracic Spine 3 Views Result: Comments: See Note; NOTES: [facility] Imaging Services [address] [place] [address] Verdana 4d Thoracic Spine 3 Views MR#: [id number] Acct: [id number] Name: JOSE J COBIAN #: [id number] : 1955 F 61 From: Bartolome Patel MD PCP: Adalid Pizano MD Status: [facility] Study: Thoracic Spine 3 Views Date of Exam: 03/22/16 Exam# [id number] Ordering Dr: Bubba Romero MD STUDY: X-RAY [...] Bartolome Patel MD at 14:10 EDT Tel [phone], Service support [phone], CC: Adalid vasquez MD; Bubba Romero Epoxy Coatings Installer: Signed 19-Mar-2016 Inital Evaluation (1) - PT Result: Comments: See Note; NOTES: [facility] Physical Therapy [facility] [address] [place], [place] [address] Fax REHABILITATION SERVICES [facility]I [facility] EVALUATION MR#: [id number] Acct: [id number] Name: JOSE J COBIAN Rep #: [id number] : 1955 61 From: Mac Smith Referring Dr.: Bubba Romero Status: REG RCR Insurance: [employer] ARE MEDICARE Patient's Visit Information JOSE J [...] to be FAXED BACK to us at [phone] for Medicare purposes. Please let me know [...] AND CAD Result: Comments: See Note; NOTES: [facility] Imaging Services [address] [place] [address] Verdana 4d Bilat Scrn Digital AND CAD MR#: [id number] Acct: [id number] Name: JOSE J COBIAN Rep #: [id number] : 1955 F 61 From: Bartolome Patel MD PCP: Adalid Pizano MD Status: REG CLI Study: Bilat Scrn Digital AND CAD Date of Exam: 03/16/16 Exam# [id number] Ordering Dr: Adalid Pizano MD MAMMOGRAPHY - [...] delay biopsy of a clinically suspicious abnormality. [id number] Electronically Signed: Bartolome Patel MD at 15:06 EDT Tel [phone], Service supp ort [phone], CC: Adalid Pizano MD Epoxy Coatings Installer: Signed 16-Mar-2016 Dexa Bone Density Study (HP) Result: Comments: See Note; NOTES: [facility] Imaging Services [address] [place] [address] Verdana 4d Dexa Bone Density Study (HP) MR#: [id number] Acct: [id number] Name: MAURI COBIAN Rep #: [id number] : 1955 F 61 From: Bartolome Patel MD PCP: Adalid Pizano MD Status: REG CLI Study: Dexa Bone Density Study (HP) Date of Exam: 03/16/16 Exam# [id number] Ordering Dr: Adalid Deng MD STUDY: DUAL [...] Bartolome Patel MD at 14:15 EDT Tel [phone], Service support [phone], CC: Adalid Pizano MD Epoxy Coatings Installer: Signed 22-Feb-2016 History and Physical Exam Result: Comments: See Note; NOTES: [facility] Medical Records Department [address] [place] [address] History and Physical 02/22/162054 MR#: [id number] Acct: [id number] Name: JOSE J COBIAN Rep #: [id number] : 1955 60 From: An Dent DO [...] was seen in the emergency room at [facility] with a chief complaint of precordial [...] - Mediport placement Psychiatric Hist ory: Anxiety 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 Lives: Spouse/ Significant Other Smoking [...] 44.6 L Lymph % (Auto) 46.1 H Branch % (Auto) 6.9 Eos % (Auto) 2.0 [...] View (Portable) Result: Comments: See Note; NOTES: [facility] Imaging Services [address] [place] [address] Verdaolvin 4d Chest 1 View (Portable) MR#: [id number] Acct: [id number] Name: JOSE J COBIAN Rep #: [id number] : 1955 F 60 From: Kim Dsouza MD PCP: Adalid Pizano MD Status: REG ER Study: Chest 1 View (Portable) Date of Exam: 02/22/16 Exam# [id number] Ordering Dr: Mac Chi MD STUDY: X-RAY [...] MD at 19:35 EDT , Service support [phone], CC: Adalid Pizano MD; Mac Chi MD Epoxy Coatings Installer: Signed 16-Feb-2016 Thoracic Spine 3 Views Result: Comments: See Note; NOTES: [facility] Imaging Services [address] [place] [address] Verdana 4d Thoracic Spine 3 Views MR#: [id number] Acct: [id number] Name: MANGOJOSE J Denise Prather #: [id number] : 1955 F 60 From: Kirk Wall MD PCP: Adalid Pizano MD Status: REG CLI Study: Thoracic Spine 3 Views Date of Exam: 02/16/16 Exam# [id number] Ordering Dr: Adalid Pizano MD ST UDY: [...] at 21:50 EDT , S titi support [phone], CC: Adalid Pizano MD Epoxy Coatings Installer: Signed 03-Nov-2015 Operative Report Result: Comments: See Note; NOTES: [facility] Medical Records Department [address] [place] [address] Operative Report MR#: [id number] Acct: [id number] Name: JOSE J COBIAN Rep #: [id number] : 1955 60 From: Bubba Romero MD PCP: Adalid Pizano MD Status: [facility] DATE OF SERVICE: 10/20/2015 DATE OF [...] indicated. Lidia Romero MD T: NTS JOB: [id number] 11/03/15 4764 <Electronically signed by Bubba Romero MD> Date Bubba Romero MD Co signer Signature (If Indicated): Date CC: Adalid Pizano MD; Bubba Romero Date Dictated: 10/20/15 1351 Date Transcribed: 10/20/15 135 Epoxy Coatings Installer: Signed 20-Oct-2015 Cerv Spine 2 or 3 Views Result: Comments: See Note; NOTES: [facility] Imaging Services [address] [place] [address] Veradalid 4d Cerv Spine 2 or 3 Views MR#: [id number] Acct: [id number] Name: JOSE J NOWAK Rep #: [id number] : 1955 F 60 From: Bartolome Patel MD PCP: Adalid Pizano MD Status: [facility] Study: Cerv Spine 2 or 3 Views Date of Exam: 10/20/15 Exam# [id number] Ordering Dr: Bubba Romero MD STUDY: X-RAY [...] Bartolome Patel MD at 13:45 EDT Tel [phone], Service support [phone], RAD/Cerv Spine 2 or 3 Views IMPRESSION: Fluoroscopic services provided for right 4 through C7 facet block. Electronically Signed: Bartloome Patel MD at 13:45 EDT Tel [phone], Service support [phone], CC: Adalid Pizano MD; Bubba Romero Epoxy Coatings Installer: Signed 18-Aug-2015 Operative Report Result: Comments: See Note; NOTES: [facility] Medical Records Department [address] [address] Operative Report MR#: [id number] Acct: [id number] Name: JOSE J COBIAN Rep #: [id number] : 1955 60 From: Bubba Romero MD PCP: Adalid Pizano MD Status: [facility] DATE OF SERVICE: 08/04/2015 DATE OF SERVICE: [...] d. Bubba Romero MD T: NTS JOB: [id number] 08/18/15 0927 <Electronically signed by Bubba Romero MD> Date Bubba copeland MD Cosigner Signature (If Indicated): Date CC: Adalid Pizano MD; Bubba Romero Date Dictated: 08/04/15 143 Date Transcribed: 08/04/151432 Epoxy Coatings Installer: Signed 04-Aug-2015 Cerv Spine 2 or 3 Views Result: Comments: See Note; NOTES: [facility] Imaging Services [address] [place] [address] Verdana 4d Cerv Spine 2 or 3 Views MR#: [id number] Acct: [id number] Name: JOSE J NOWAK Denise Rep #: [id number] : 1955 F 60 From: Kirk Wall MD PCP: Adalid Pizano MD Status: [facility] Study: Cerv Spine 2 or 3 Views Date of Exam: 08/04/15 Exam# [id number] Ordering Dr: Osiel Romero MD STUDY: X-RAY [...] MD at 16:28 EST , Service support [phone], RAD/Cerv Spine 2 or 3 Views IMPRESSION: Needle positions as above. Electronically Signed: Kirk Wall MD at 16:28 EST , Service support [phone], CC: Adalid Pizano MD; Bubba Romero Epoxy Coatings Installer: Signed 02-Jul-2015 Hip min 2 Views Result: Comments: See Note; NOTES: [facility] Imaging Services [address] [place] [address] Verdana 4d Hip min 2 Views MR#: [id number] Acct: [id number] Name: VIRAJ COBIAN Rep #: [id number] : 1955 F 60 From: Tuan Boyd MD PCP: Adalid Pizano MD Status: REG CLI Study: Hip min 2 Views Date of Exam: 07/02/15 Exam# [id number] Ordering Dr: Adalid Pizano MD S TUDY: [...] at 12:42 EST Tel , Service support [phone], Fax RAD/Hip min 2 Views IMPRESSION: Normal x-ray examination of the hip. Electronically Signed: Lucius Boyd MD at 12:42 EST Tel , Linnea elizabeth support [phone], CC: Adalid Pizano MD [employer]at[employer] Installer: Signed 24-Jun-2015 Pelvis 1 or 2 Views Result: Comments: See Note; NOTES: [facility] [place] Imaging Services [address] [place] [address] Verdana 4d Pelvis 1 or 2 Views MR#: [id number] Acct: [id number] Name: JOSE J COBIAN Rep #: [id number] : 1955 F 60 From: Prosper Dumont MD PCP: Adalid Pizano MD Status: REG CLI Study: Pelvis 1 or 2 Views Date of Exam: 06/24/15 Exam# [id number] Ordering Dr: Tuan Pizano MD STUDY: X-RAY [...] at 11:20 EST Tel , Service support [phone], RAD/Pelvis 1 or 2 Views IMPRESS ION: There is narrowing with cortical sclerosis and osteophyte formation of the sacroiliac joint consistent with degenerative osteoarthritic changes. Electronically Signed: Lavell Dumont MD 08/26 at 11:20 EST Tel , Service support [phone], CC: Adalid Pizano MD [employer] Installer: Signed 07-Feb-2015 Chest PA and Lateral Result: Comments: See Note; NOTES: [facility] [place] Imaging Services [address] [place] [address] Radiology Report MR#: [id number] Acct: [id number] Name: JOSE J COBIAN Rep #: [id number] : 1955 F 59 From: Baldemar Torres DO PCP: Adalid Pizano MD Status: REG CLI Study: Chest PA and Lateral Date of Exam: 02/07/15 Exam# [id number] Ordering Dr: Pamella Saavedra STUDY: X-RAY CHES [...] Baldemar Torres DO at 19:14 EDT Tel [phone], Service support , RAD/Chest PA and Lateral IMPRESSION: No acute cardiopulmonary disease or interval change. Electronically Signed: Baldemar TorresDO at 19: 14 EDT Tel [phone], Service support [phone], CC: Pamella Saavedra; Adalid Pizano MD [employer] Installer: Signed 05-Feb-2014 Bilat Scrn Digital & CAD Result: Comments: See Note; NOTES: [facility] [place] Imaging Services [address] [place] [address] Breast Imaging Report MR#: [id number] Acct: [id number] Name: JOSE J COBIAN Rep #: [id number] : 1955 F 58 From: Bartolome Patel MD PCP: Adalid Pizano MD Status: REG CLI Exam# [id number] Ordering Dr: Adalid Pizano MD MAMMOGRAPHY - [...] Bartolome Patel MD at 13:16 EDT Tel [phone], Service support [phone], CC: Adalid Pizano MD [employer] Installer: Signed 06-Jun-2013 Abdomen/Pelvis with Contrast Result: Comments: See Note; NOTES: [facility] [place] Imaging Services [address] [place] [address] CAT Scan Report MR#: [id number] Acct: [id number] Name: JOSE J COBIAN Rep #: [id number] : 1955 F 58 From: Tuan Atkins MD PCP: Adalid Pizano MD Status: REG CLI Study: Abdomen/Pelvis with Contrast Date of Exam: 06/06/13 Exam# [id number] Ordering Dr: Adalid Pizano MD STUD Y: [...] M.D. at 0:12 EST , Service support [phone], CC: Adalid Pizano MD [employer] Installer: Signed Immunization Name Dates Details Influenza (3 [...] with spouse. 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 [place], [place], [address] PREMA 73 U/L (Normal) Range: 25-115 13-Qtt-549442:27 CBC-Complete Blood Cnt No Diff Comments: [facility] [address]ijzs[address] [place], [place], [address] MPV 9.3 fL (Normal) Range: 6.2-12.0 PLT [...] 4.2-5.4 WBC 5.3 K/mm3 (Normal) Range: 4.4-11.0 73-Hge-059935:27 Comprehensive Metabolic Profil Comments: [facility] [address]rvxxiqex[address] [place], [place], [address] GAP 4 (Abnormal) Range: 5-15 CO2 29.0 [...] A.D.A. criteria.Please note revised GLUCOSE reference range umjbkasbs47/02/2018. 50-Awf-395641:27 Lipase Comments: [facility] Jcmqhqeplw7131 [facility] [place], [address] LIPASE 314 U/L (Normal) Range: 73-393 74-Ayx-286792:27 Urinalysis, Routine (Dipstick) Comments: How was Urine Obtained? [facility], [facility] Icjsehewgb6098 [place] [place], [address] LEUK ESTERASE Negative /ul (Normal) OCCULT BLOOD-UR Negative /ul (Normal) NITRITE UR Negative (Normal) UROBILI Normal mg/dL (Normal) PROT DIPSTX Negative mg/dL (Normal) pH UR 6.5 (Normal) Range: 5.0 - 8.0 SP.GR. DIPSTX 1.010 (Normal) Range: 1.002-1.030 KETONE UR Negative mg/dL (Normal) BILIRUBIN URINE Negative mg/dL (Normal) GLUCOSE, UR Normal mg/dL (Normal) CLARITY Clear (Normal) COLOR Yellow (Normal) 4-Rqw-714852:01 Protime w/INR Fingerstick Comments: [facility] LaboratoryPoint of Upk[address] [place] [address]. [place] [address] INR ISTAT 1.00 (Normal) Comments: Critical Value > 3.5 PROTIME ISTAT 11.9 {SEC} (Normal) Range: 11.9-14.4 Comments: Reference Range 11.9 - 14.4 05-Ydv-154899:58 URINE GRETTA CULTURE-IDENTIFICATN Comments: PATIENT NOT FASTINGPERFORMED BY: [facility]6370 [facility] [id number] Information: SRC:UC (66244) Result 1 MUG (Normal) Comments: Mixed urogenital floraGreater than 100,000 colony forming units per mL Urine Culture,Comprehensive Final report (Normal) 98-Rbu-987844:57 Urinalysis, Office (75718) UA - LEUKOCYTE ESTERASE Negative (Normal) UA - NITRITE Negative (Normal) URINE UROBILINGN YANCI TIMED 2 mg/dL (Normal) UA - PROTEIN Negative mg/dL (Normal) UA - PH 7.0 (Normal) UA - BLOOD Negative (Normal) UA - SPECIFIC GRAVITY 1.010 (Normal) UA - KETONES Negative mg/dL (Normal) UA - BILIRUBIN Negative (Normal) UA - GLUCOSE Negative (Normal) 03-Apr-20188:00 Protime w/INR Fingerstick Comments: [facility] LaboratoryPoint of Edmb[address] [place], [place] [address] INR ISTAT 1.10 (Normal) Comments: Critical Value > 3.5 PROTIME ISTAT 13.7 {SEC} (Normal) Range: 11.9-14.4 Comments: Reference Range 11.9 - 14.4 70-Khu-399221:23 Amylase 89 U/L (Normal) Comments: PATIENT NOT FASTINGPERFORMED BY: [facility]6370 [facility] [id number] Range: 31-124 44-Psy-728378:23 CBC With Differential/Platelet Comments: PATIENT NOT FASTINGPERFORMED BY: [facility]6370 [facility] [id number] Immature Grans (Abs) 0.0 {x10E3/uL} (Normal) Range: [...] 3.77-5.28 WBC 4.2 {x10E3/uL} (Normal) Range: 3.4-10.8 58-Pfa-697775:23 Comp. Metabolic Panel (14) Comments: PATIENT NOT FASTINGPERFORMED BY: [facility] Kiqllu5912 [facility] [id number] ALT (SGPT) 18 [iU]/L (Normal) Range: 0-32 [...] U/L (Abnormal) Comments: PATIENT NOT FASTINGPERFORMED BY: [employer] Gemvrv3466 [facility] [id number] 4:23 Range: 14-72 39-Jco-982892:23 Urinalysis, Routine Comments: PATIENT NOT FASTINGPERFORMED BY: [employer]6370 [facility] [id number] Microscopic Examination MICNIP (Normal) Comments: Microscopic not indicated and not performed. Nitrite, Urine Negative (Normal) Urobilinogen,Semi-Qn 1.0 mg/dL (Normal) Range: 0.2-1.0 Bilirubin Negative (Normal) Occult Blood Negative (Normal) Ketones Negative (Normal) Glucose Negative (Normal) Protein Negative (Normal) WBC Esterase Negative (Normal) Appearance Clear (Normal) Urine-Color Yellow (Normal) pH 6.0 (Normal) Range: 5.0-7.5 Specific [place]ro[place] 1.020 (Normal) Range: 1.005-1.030 :42 Protime w/INR Fingerstick Comments: [facility] LaboratoryPoint of Krxm[address] [place], [place] [address] INR ISTAT 1.00 (Normal) Comments: Critical Value > 3.5 PROTIME ISTAT 12.4 {SEC} (Normal) Range: 11.9-14.4 Comments: Reference Range 11.9 - 14.4 :14 CBC W/Diff, Automated Comments: [facility] [address] [place], [place], [address] ; fu 6-19 Absolute Lymph 1.62 {X10_3/ul} [...] 4.2-5.4 WBC 4.7 K/mm3 (Normal) Range: 4.4-11.0 80-Huj-469173:14 Comprehensive Metabolic Profil Comments: [facility] K[address]izvg[address] [place], [place], [address] GAP 5 (Normal) Range: 5-15 CO2 29.0 [...] A.D.A. criteria.Please note revised GLUCOSE reference range jyhnjbccz87/02/2018. 12-Ohk-447797:14 Ferritin Comments: [facility] [address] [place], [place], [address] FERRITIN 82 ng/mL (Normal) Range: 8-252 61-Taf-492103:14 Vitamin B12 558 pg/mL (Normal) Comments: [facility] [address] [place], [address] Range: 211-911 05-Sep-20178:07 Protime w/INR Fingerstick Comments: [facility] LaboratoryPoint of Jlbm[address] [place] [address] INR ISTAT 1.30 (Normal) Comments: Critical Value > 3.5 PROTIME ISTAT 14.9 {SEC} (Abnormal) Range: 11.9-14.4 Comments: Reference Range 11.9 - 14.4 :10 Protime w/INR Fingerstick Comments: [facility] LaboratoryPoint of Axmm47[address] [place] [address] INR ISTAT 1.10 (Normal) Comments: Critical Value > 3.5 PROTIME ISTAT 13.0 {SEC} (Normal) Range: 11.9-14.4 Comments: Reference Range 11.9 - 14.4 98-Xxg-543726:32 Culture, Blood (WB) Comments: [facility] P[address]efxacc[address] [place], [address] CUB See Note (Normal) Comments: Has pt arrived? Y Comments: DR. Mello growth in 5 days. 67-Rbf-613348:25 CBC W/Diff, Automated Comments: Comments: DR Cui [facility] Ywtnwrpztb99[address] [place], [address] Absolute Lymph 1.68 {X10_3/ul} (Normal) Range: [...] 4.2-5.4 WBC 3.9 K/mm3 (Abnormal) Range: 4.4-11.0 53-Tff-043207:25 Culture, Blood (WB) Comments: [facility] [address] [place], [address] CUB See Note (Normal) Comments: Has pt arrived? Y Comments: DR. Mello growth in 5 days. 25-Jwa-724803:25 Erythrocyte Sed Rate Comments: Comments: [facility] Stnmahuglm0915 [address] [place], [address] SED RATE 8 mm/h (Normal) Range: 0-30 66-Unk-618946:25 Ferritin Comments: Comments: [facility] Bhqtttqzyi6453 [place], [address] FERRITIN 83 ng/mL (Normal) Range: 8-252 52-Oru-353060:25 Vitamin D,25 Hydroxy Comments: Order Date: 07/20/17[facility] G[address]soaheve[address] [place], [address] Vitamin D 25-OH 34.6 ng/mL (Normal) Comments: Vitamin D 25(OH) Status Range Deficiency <20 ng/mL (50nmol/L) Insuffciency 20 - 30 ng/mL (50 - 75 nmol/L) Sufficiency 30 - 100 ng/mL (75 - 250 nmol/L) Toxicity >100 ng/mL (>250 nmol/L) 96-Qbo-436957:10 Culture, Urine Comments: [facility] Rmbffgtwml1238 [address] [place], [address] CUUR See Note (Normal) Comments: Order Date: 07/20/17 Comments: DR PIZANO Urine CultureCulture exhibits no growth. 58-Ylw-005379:10 Urinalysis, Complete Comments: Order Date: 07/20/17Has pt arrived? YComments: DR Morales was Urine Obtained? CLEAN [facility] [address] [place], [place], [address] MUCUS, URINE 0 SEEN {/hpf} (Normal) BACTERIA [...] Yellow (Normal) :48 Protime w/INR Fingerstick Comments: [facility] LaboratoryPoint [place] [address] [place], [place] [address] INR ISTAT 1.10 (Normal) Comments: Critical Value > 3.5 PROTIME ISTAT 13.2 {SEC} (Normal) Range: 11.9-14.4 Comments: Reference Range 11.9 - 14.4 :30 Protime w/INR Fingerstick Comments: [facility] LaboratoryPoint [facility] HospitalBszg[address] [place], [place] [address] INR ISTAT 1.10 (Normal) Comments: Critical Value > 3.5 PROTIME ISTAT 12.8 {SEC} (Normal) Range: 11.9-14.4 Comments: Reference Range 11.9 - 14.4 :44 INR Fingerstick Comments: [facility] LaboratoryPoint of Jxfy[address] [place] [address] INR ISTAT 1.10 (Normal) Comments: Critical Value > 3.5 :44 Prothrombin Time Fingerstick Comments: [facility] LaboratoryPoint of Pffe5362 [place] [address] PROTIME ISTAT 13.6 {SEC} (Normal) Range: 11.9-14.4 Comments: Reference Range 11.9 - 14.4 :17 HgA1C , Office (15579) HgA1C , Office 5.7 % (Normal) Range: 4.6 - 7.1 :08 Metabolic Panel, Basic Comments: PATIENT NOT FASTINGPERFORMED BY: [employer] [facility] HospitalSnoobeCarteret [facility] Care [id number] (06577) Calcium, Serum 9.1 mg/dL (Normal) Range: 8.7-10.3 [...] Glucose, Serum 97 mg/dL (Normal) Range: 65-99 75-Ysm-636005:08 CBC (Auto) (90203) Comments: PATIENT NOT FASTINGPERFORMED BY: [employer] [facility] [id number] Platelets 306 {x10E3/uL} (Normal) Range: 150-379 RDW 15.6 % (Abnormal) Range: 12.3-15.4 MCHC 32.9 g/dL (Normal) Range: 31.5-35.7 MCH 28.3 pg (Normal) Range: 26.6-33.0 MCV 86 fL (Normal) Range: 79-97 Hematocrit 35.9 % (Normal) Range: 34.0-46.6 Hemoglobin 11.8 g/dL (Normal) Range: 11.1-15.9 RBC 4.17 {x10E6/uL} (Normal) Range: 3.77-5.28 WBC 4.6 {x10E3/uL} (Normal) Range: 3.4-10.8 :08 URINALYSIS W/O MICRO (16201) Comments: PATIENT NOT FASTINGPERFORMED BY: [employer] Novihum TechnologiesCarteret Health Care [id number] Microscopic Examination MICNIP (Normal) Comments: Microscopic not indicated and not performed. Nitrite, Urine Negative (Normal) Urobilinogen,Semi-Qn 0.2 mg/dL (Normal) Range: 0.2-1.0 Bilirubin Negative (Normal) Occult Blood Negative (Normal) Ketones Negative (Normal) Glucose Negative (Normal) Protein Negative (Normal) WBC Esterase Negative (Normal) Appearance Clear (Normal) Urine-Color Yellow (Normal) pH 6.0 (Normal) Range: 5.0-7.5 Specific [place] 1.013 (Normal) Range: 1.005-1.030 :08 COMPLEMENT C4 (90160) Comments: PATIENT NOT FASTINGPERFORMED BY: [employer] Sqciba9570 TonxCarteret [facility] Care [id number] Complement C4, Serum 16 mg/dL (Normal) Range: 14-44 50-Png-209174:08 COMPLEMENT C3 (76969) Comments: PATIENT NOT FASTINGPERFORMED BY: Lyatiss Novihum TechnologiesCarteret Health Care [id number] Complement C3, Serum 103 mg/dL (Normal) Range: 82-167 44-Wjy-493821:08 DNA ANTIBODY-NATV/DBL ST (78063) Comments: PATIENT NOT FASTINGPERFORMED BY: Lyatiss [facility] [id number] test code 727438 Anti-DNA (DS) Ab Qn <1 {IU/mL} (Normal) Range: 0-9 Comments: Negative <5 Equivocal 5 - 9 Positive >9 65-Ntk-722507:08 Sed Rate Erythrocyte (56765) Comments: PATIENT NOT FASTINGPERFORMED BY: LyatissGreystone Park Psychiatric HospitalQrdhmn4120 [facility] [id number] Sedimentation Rate-Westergren 4 mm/h (Normal) Range: 0-40 69-Adi-981051:08 DESIRAE (ANTINUCLEAR ANTIBODY) Comments: PATIENT NOT FASTINGPERFORMED BY: [employer] ComicsUniversity [facility]6370 [facility] [id number] (73204) DESIRAE Direct Negative (Normal) 3-Xad-875453:04 Prothrombin Time w/INR Comments: [facility] [address] [place], [address] INR 1.5 (Normal) PROTIME 17.8 s (Abnormal) Range: 11.7-14.9 93-Spo-226385:45 Prothrombin Time w/INR Comments: [facility] [address] [place], [address] INR 3.0 (Normal) PROTIME 30.3 s (Abnormal) Range: 11.7-14.9 :51 Serum Creatinine AND GFR Comments: [facility] [address] [place], [place], [address](474) EST GFR - AA 90 mL/min (Normal) Comments: GFR Calc EST GFR 74 mL/min (Normal) Comments: Non- GFR Calc CREAT,SERUM 0.83 mg/dL (Normal) Range: 0.55-1.02 Comments: The validity of the calculated GFR AND GFRAA in patients over70 years has not been determined. Clinical correlation isessential. :21 LIPASE (70758) Comments: PATIENT NOT FASTINGPERFORMED BY: LyatissGreystone Park Psychiatric HospitalQpthwl5631 [facility] [id number] Lipase, Serum 46 U/L (Normal) Range: 14-72 Comments: Please note reference interval change :21 AMYLASE (08774) Comments: PATIENT NOT FASTINGPERFORMED BY: Lyatiss Fndenf6259 [facility] Hospitalblin [place] [id number] Amylase, Serum 65 U/L (Normal) Range: 31-124 6-Uyo-265447:21 CALCIFIDIOL (57415) VIT D 25 Comments: PATIENT NOT FASTINGPERFORMED BY: [facility] Dbzjpy1761 [facility] [id number] Vitamin D, 25-Hydroxy 25.8 ng/mL (Abnormal) Range: 30.0-100.0 Comments: Vitamin D deficiency has been defined by the [place] of[place] and an Endocrine Society practice guideline as alevel of serum 25-OH vitamin D less than 20 ng/mL (1,2).The Endocrine Society went on to further define vitamin Dinsufficiency as a level between 21 and 29 ng/mL (2).1. IOM ([place] of [employer]). 2010. Dietary reference intakes for calcium and D. Lal [place]: The National Academies Press.2. Candelaria MF, Janey NC, Yolande GROSS, et al. Evaluation, treatment, and prevention of vitamin D deficiency: an Endocrine Society clinical practice guideline. JCEM. 2010; 96(7):1911-30. 5-Yke-304765:21 Ferritin (05010) Comments: PATIENT NOT FASTINGPERFORMED BY: [facility] Ndrhux8215 [facility] [id number]; fu 10-27 db Ferritin, Serum 10 ng/mL (Abnormal) Range: 15-150 7-Rpa-462943:21 Vitamin B-12 (cyanocobalamin) Comments: PATIENT NOT FASTINGPERFORMED BY: [facility] Umrjxw6360 [facility] [id number] (87434) Vitamin B12 1888 pg/mL (Abnormal) Range: 211-946 5-Oim-161723:21 METABOLIC PANEL, COMPREHENSIVE Comments: PATIENT NOT FASTINGPERFORMED BY: [facility] Yhmbiv5297 [facility] [id number] (56485) ALT (SGPT) 11 [iU]/L (Normal) Range: 0-32 [...] Glucose, Serum 101 mg/dL (Abnormal) Range: 65-99 3-Dxe-155239:21 CBC with auto diff Comments: PATIENT NOT FASTINGPERFORMED BY: [facility] Hmoiqn3714 [facility] [id number] Information: CLIENT DRAW (25330) Immature Grans (Abs) 0.0 {x10E3/uL} (Normal) Range: [...] Range: 3.4-10.8 :14 Prothrombin Time w/INR Comments: [facility] [address] [facility]. [place], [place], [address] INR 1.9 (Normal) Comments: ADDENDA: handled by cardio PROTIME 21.0 s (Abnormal) Range: 11.7-14.9 :57 HEPATIC FUNCTION PANEL Comments: PATIENT NOT FASTINGPERFORMED BY: [facility] Tvocrk7748 [facility] [id number] (78809) ALT (SGPT) 15 [iU]/L (Normal) Range: 0-32 AST (SGOT) 20 [iU]/L (Normal) Range: 0-40 Alkaline Phosphatase, S 114 [iU]/L (Normal) Range: 39-117 Bilirubin, Direct 0.10 mg/dL (Normal) Range: 0.00-0.40 Comments: Please note reference interval change Bilirubin, Total <0.2 mg/dL (Normal) Range: 0.0-1.2 Albumin, Serum 4.9 g/dL (Abnormal) Range: 3.6-4.8 Protein, Total, Serum 7.1 g/dL (Normal) Range: 6.0-8.5 :57 IGA/IGD/IGG/IGM-EACH (37311) Comments: PATIENT NOT FASTINGPERFORMED BY: [employer] Wztkrb1587 [facility] [id number] Immunoglobulin E, Total 50 {IU/mL} (Normal) Range: 0-100 Immunoglobulin M, Qn, Serum 43 mg/dL (Normal) Range: 26-217 Immunoglobulin A, Qn, Serum 131 mg/dL (Normal) Range: 87-352 Immunoglobulin G, Qn, Serum 753 mg/dL (Normal) Range: 700-1600 65-Gll-045591:57 EBV ACUTE PFOF IgG/IgM Comments: PATIENT NOT FASTINGPERFORMED BY: [employer] [place] [facility] [id number] (18952) Interpretation: SPRCS (Normal) Comments: EBV Interpretation Chart [...] (LACTATE DEHYDROGENASE) Comments: PATIENT NOT FASTINGPERFORMED BY: [employer] Rfzarn5422 [facility] [id number] (56626) LDH 191 [iU]/L (Normal) Range: 119-226 94-Mdr-725052:57 HIV-1 & 2 ANTBDY-SNGL SHAWN Comments: PATIENT NOT FASTINGPERFORMED BY: [address] [id number] (69735) HIV Screen 4th Generation wRfx Non Reactive (Normal) 49-Yuz-539982:57 HEPATITIS PANEL (52128) Comments: PATIENT NOT FASTINGPERFORMED BY: [address] [id number] Hep C Virus Ab 0.1 {s/co_ratio} (Normal) Range: 0.0-0.9 Comments: Negative: < 0.8 Indeterminate: 0.8 - 0.9 Positive: > 0.9 . The CDC recommends that a positive HCV antibody result be followed up with a HCV Nucleic Acid Amplification test (628785). Hep B Core Ab, IgM Negative (Normal) HBsAg Screen Negative (Normal) Hep A Ab, IgM Negative (Normal) :56 Culture, Blood (WB) Comments: [facility] [address] [place], [address] CUB See Note (Normal) Comments: BCNo growth in 5 days. 8-Mkx-466399:56 EBV Acute Prof IgG / IgM Comments: [facility] (refer to report for specific site)refer to report for address and phone number INTERPRETATION Comment (Normal) Comments: EBV Interpretation ChartInterpretation EBV-IgM EA(D)-IgG VCA-IgG EBNA-IgGEBV Seronegative - - - -Early Phase + - - -Acute Primary + +or- + -InfectionConvalescence/Past - +or- + +InfectionReactivated +or- + + +Infection + Antibody Present - Antibody Ab sentPerformed at: [address] [id number] Director: Neo Campos PhD, Phone: [phone] EB-NAg [id number] 136.0 U/mL (Abnormal) Range: 0.0-17.9 Comments: Negative <18.0 Equivocal 18.0 - 21.9 Positive >21.9 EB-VCA [id number] 255.0 U/mL (Abnormal) Range: 0.0-17.9 Comments: Negative <18.0 Equivocal 18.0 - 21.9 Positive >21.9 EB-EA IgG 91718 18.4 U/mL (Abnormal) Range: 0.0-8.9 Comments: Hepatitis A, Hepatitis C and HIV antibodies may cross-reactwith this assay. Negative < 9.0 Equivocal 9.0 - 10.9 Positive >10.9 EB-VCA [id number] 36.1 U/mL (Abnormal) Range: 0.0-35.9 Comments: A second sample should be collected and tested no less than2-4 weeks. Negative <36.0 Equivocal 36.0 - 43.9 Positive >43.9 :56 Ferritin Comments: [address] [place], [address] FERRITIN 34 ng/mL (Normal) Range: 8-252 :56 Vitamin D,25 Hydroxy Comments: [address] [place], [address] Vitamin D 25-OH 29.2 ng/mL (Normal) Comments: Vitamin D 25(OH) Status Range Deficiency <20 ng/mL (50nmol/L) Insuffciency 20 - 30 ng/mL (50 - 75 nmol/L) Sufficiency 30 - 100 ng/mL (75 - 250 nmol/L) Toxicity >100 ng/mL (>250 nmol/L) 2-Sai-169253:03 INR Fingerstick Comments: [address] [place], [place] [address] INR ISTAT 1.00 (Normal) Comments: Critical Value > 3.5 :03 Prothrombin Time Fingerstick Comments: [address] [place], [place] [address] PROTIME ISTAT 12.1 {SEC} (Normal) Range: 11.9-14.4 Comments: Reference Range 11.9 - 14.4 33-Ljv-141549:55 Prothrombin Time w/INR Comments: [facility] [address]sc[address] [place], [place], [address] INR 2.6 (Normal) PROTIME 26.7 s (Abnormal) Range: 11.7-14.9 :44 GRETTA CULTURE-OTHER (62996) Comments: PATIENT NOT FASTINGPERFORMED BY: [facility]CoGreystone Park Psychiatric HospitalVdkfvv1713 [facility] [id number] Information: THROAT SRC:TH Result 1 RRF (Normal) Comments: Routine respiratory rajwinder Upper Respiratory Culture Final report (Normal) 79-Qzx-431665:31 Rapid Flu (33708 x 2) Influenza A Ag negative (Normal) :31 Rapid Strep Test, Office (96579) Rapid Strep Test, Office Negative (Normal) 67-Svu-826904:46 Microscopic Examination Comments: PATIENT NOT FASTINGPERFORMED BY: [facility] Pzzgfp9745 [facility] [id number] Bacteria Few (Normal) Mucus Threads Present (Normal) Crystal Type Calcium Oxalate (Normal) Crystals Present (Abnormal) Epithelial Cells (non renal) 0-10 {/hpf} (Normal) Range: 0 - 10 RBC 0-2 {/hpf} (Normal) Range: 0 - 2 WBC 0-5 {/hpf} (Normal) Range: 0 - 5 14-Omz-412886:46 URINALYSIS (66346) Comments: PATIENT NOT FASTINGPERFORMED BY: [facility] Yspbri8260 [facility] [id number] Microscopic Examination See below: (Normal) Comments: Microscopic was indicated and was performed. Nitrite, Urine Negative (Normal) Urobilinogen,Semi-Qn 1.0 mg/dL (Normal) Range: 0.2-1.0 Bilirubin Negative (Normal) Occult Blood Negative (Normal) Ketones Negative (Normal) Glucose Negative (Normal) Protein Negative (Normal) WBC Esterase 1+ (Abnormal) Appearance Clear (Normal) Urine-Color Yellow (Normal) pH 6.0 (Normal) Range: 5.0-7.5 Specific [place] 1.018 (Normal) Range: 1.005-1.030 :46 CBC WITH MANUAL DIFF ([id number]) Comments: PATIENT NOT FASTINGPERFORMED BY: [facility] [id number] Immature Grans (Abs) 0.0 {x10E3/uL} (Normal) Range: [...] 3.77-5.28 WBC 4.5 {x10E3/uL} (Normal) Range: 3.4-10.8 [id number] Ferritin ([id number]) Comments: PATIENT NOT FASTINGPERFORMED BY: [facility] [id number] Ferritin, Serum 10 ng/mL (Abnormal) Range: 15-150 55-Cyn-576364:46 Metabolic Panel, Comprehensive Comments: PATIENT NOT FASTINGPERFORMED BY: [facility]6370 [facility] [id number] (34279) ALT (SGPT) 18 [iU]/L (Normal) Range: 0-32 [...] Glucose, Serum 86 mg/dL (Normal) Range: 65-99 91-Gae-856570:46 AMYLASE (17946) Comments: PATIENT NOT FASTINGPERFORMED BY: Fabler ComicsUniversity [facility]6370 [facility] [id number] Amylase, Serum 81 U/L (Normal) Range: 31-124 43-Jky-287068:46 LIPASE (51733) Comments: PATIENT NOT FASTINGPERFORMED BY: [facility]University [facility]6370 [facility] [id number] Lipase, Serum 79 U/L (Abnormal) Range: 0-59 12-Tib-810692:33 Prothrombin Time w/INR Comments: Order Date: 03/23/16Order Date: 03/23/16Interface Comments: Reason:[facility]: [facility]16[facility] [address]szxy[address] [place], [address] INR 2.0 (Normal) PROTIME 22.3 s (Abnormal) Range: 11.7-14.9 02-Snz-939664:36 Prothrombin Time w/INR Comments: [facility] [address] [place], [address] INR 1.4 (Normal) PROTIME 17.1 s (Abnormal) Range: 11.7-14.9 13-Xwb-334613:20 Prothrombin Time w/INR Comments: Order Date: 05/11/16Order Info: 6301-6 - *PT/INR - Standing OrderComments: Standing Order-Reason:Order Date: 05/11/16Order Info: 6301-6 - *PT/INR - Standing OrderComments: Standing Order- Reason:[facility] [address] [place], [address] INR 1.2 (Normal) PROTIME 14.8 s (Normal) Range: 11.7-14.9 0-Dyw-032709:50 Prothrombin Time w/INR Comments: Order Date: 05/11/16Order Info: 6301-6 - *PT/INR - Standing OrderComments: Standing Order-Reason:Order Date: 05/11/16Order Info: 6301-6 - *PT/INR - Standing OrderComments: Standing Order-Reason:Order Da te: 05/11/16Order Info: 6301-6 - *PT/INR - Standing OrderComments: Standing Order-Reason:[facility] [address] [place], [id number] INR 1.2 (Normal) PROTIME 15.1 s (Abnormal) Range: 11.7-14.9 04-Jun-20160:00 Culture, Nose Comments: [facility] Orsfaarsgg[address] [place], [id number] CUN See Note (Normal) Comments: Comments: NARESGram StainGram Stain Rare White Blood Cells 1+ Epithelial cells 4+ Gram positive rods Nasoph. CultNo Haemophilus, Streptococcus pneumoniae, beta-hemolytic Streptococcus or Staphylococcus aureus isolated. :00 Culture, Throat Comments: [facility] [address] [place], [place], [address] CUT See Note (Normal) Comments: Comments: NARESCulture, ThroatNo Haemophilus, Streptococcus pneumoniae, beta-hemolytic Streptococcus or Staphylococcus aureus isolated. 13-Ttl-080522:05 Rapid Flu (32563 x 2) Influenza A Ag neg (Normal) :45 CBC W/Diff, Automated Comments: Order Date: 03/18/16Order Date: 03/18/16[facility] Goyouintpr[address] [place], [place], [id number] Absolute Lymph 2.95 {X10_3/ul} (Normal) Range: 0.83-4.51 [...] 1'CKMB' Serial Specimen #1, #2 or #3? [address] [place] [address] [address] [place], [place], [address] CKRI 3.2 % (Abnormal) Range: 0.0-1.4 Comments: RELATIVE INDEX >1.5% IS PRESUMPTIVELY POSITIVE CPKMB 1.8 ng/mL (Normal) Range: 0.0-5.0 Comments: CK-MB and RI Interpretation MB Relative Index Non-AMI <or= 5 NA Indeterminate > 5 <or= 4 AMI > 5 > 4 CPK TOTAL 57 U/L (Normal) Range: 26-192 :45 Erythrocyte Sed Rate Comments: Order Date: 03/18/16Order Date: 03/18/16[facility] Um[address]ws[address] [place], [place], [id number] SED RATE 1 mm/h (Normal) Range: 0-30 :45 Myoglobin, Serum Comments: Order Date: 03/18/16[facility] (refer to report for specific site)refer to report for address and phone number Myoglobin, Ser 23 ng/mL (Abnormal) Range: 25-58 Comments: Performed at: - [facility] [address] [id number] Director: Neo Campos PhD, Phone: [phone] :[phone] Troponin-I Comments: Order Date: 03/18/16TROP ADDED 03/19/16Order Date: 03/18/16'TROP' Serial specimen #1, #2, #3, or #4: 1'CKMB' Serial Specimen #1, #2 or #3? [address] [place] [address] [address] [place], [place], [address] TROPONIN-I < 0.02 ng/mL (Normal) Comments: TROPONIN-I EXPECTED VALUES <0.05 NEGATIVE 0.06 - 0.59 AT RISK OF MN > OR = 0.60 SUGGEST MN 22-Chh-079015:00 Basic Metabolic Profile (BMP) Comments: 'TROP' Serial specimen #1, #2, #3, or #4: [facility] [address]wgiqea[address] [place], [address] GAP 6 (Normal) Range: 5-15 [...] 7-18 GLU 101 mg/dL (Normal) Range: 70-110 66-Ulc-640037:00 CBC W/Diff, Automated Comments: [facility] [address] [place], [address] Absolute Lymph 2.27 {X10_3/ul} (Normal) [...] 4.2-5.4 WBC 4.9 K/mm3 (Normal) Range: 4.4-11.0 92-Ara-093553:00 Lipase Comments: 'TROP' Serial specimen #1, #2, #3, or #4: [address] [place] [address] [address]9671 [place], [place], [address] LIPASE 351 U/L (Normal) Range: 73-393 20-Bom-192392:00 Liver Profile Comments: 'TROP' Serial specimen #1, #2, #3, or #4: [address] [place] [address] Bvq[address]eqjja2408 [place], [place], [address] D BILI 0.15 mg/dL (Normal) Range: 0.00-0.30 T BILI 0.30 mg/dL (Normal) Range: 0.20-1.00 ALT 23 U/L (Normal) Range: 12-78 ALK P 81 U/L (Normal) Range: 50-136 AST 24 U/L (Normal) Range: 15-37 GLOB 2.8 g/dL (Normal) Range: 2.3-3.5 ALB 4.0 g/dL (Normal) Range: 3.4-5.0 T PROT 6.8 g/dL (Normal) Range: 6.4-8.2 56-Sgx-913003:00 Troponin-I Comments: 'TROP' Serial specimen #1, #2, #3, or #4: [address] [place] [address] [address] [place], [place], [address] TROPONIN-I < 0.02 ng/mL (Normal) Comments: TROPONIN-I EXPECTED VALUES <0.05 NEGATIVE 0.06 - 0.59 AT RISK OF MN > OR = 0.60 SUGGEST MN 02-Emh-108570:08 Osmolality, Urine Comments: Order Date: 02/16/16[facility] pt arrived? [facility] [address] [place], [address] OSMOLALITY,UR 310 {mOsm/KG} (Normal) Comments: OSMOLALITY URINE REFERENCE INTERVALS 24-hour Urine 300 - 900 mOsm/kg Random Urine 50 - 1400 mOsm/kg After 12 Hr fluid restriction >850 mOsm/kg 88-Iar-866583:50 Amylase Comments: [facility] [address] [place], [place], [address] PREMA 80 U/L (Normal) Range: 25-115 86-Yny-933770:50 CBC W/Diff, Automated Comments: [facility] [address]neh[address] [place], [place], [address] Absolute Lymph 1.51 {X10_3/ul} (Normal) Range: 0.83-4.51 [...] 4.2-5.4 WBC 4.3 K/mm3 (Abnormal) Range: 4.4-11.0 12-Lzo-324111:50 Comprehensive Metabolic Profil Comments: [facility] [address] [place], [place], [address] GAP 6 (Normal) Range: 5-15 CO2 28.0 [...] 7-18 GLU 98 mg/dL (Normal) Range: 70-110 89-Qiw-632370:50 Lipase Comments: [facility] [address]te[address] [place], [address] LIPASE 424 U/L (Abnormal) Range: 73-393 78-Hxb-253185:50 Osmolality, Serum Comments: [place] [address] [place], [address] OSMOLALITY,SER 275 {mOsm/KG} (Normal) Range: 275-295 36-Fyi-466898:50 Vitamin B12 489 pg/mL (Normal) Comments: [address] [place], [address] ; will review on 02/19 Range: 211-911 31-Mmf-632422:50 Vitamin D,25 Hydroxy Comments: [place] [address] [place], [address] Vitamin D 25-OH 37.6 ng/mL (Normal) Comments: Vitamin D 25(OH) Status Range Deficiency <20 ng/mL (50nmol/L) Insuffciency 20 - 30 ng/mL (50 - 75 nmol/L) Sufficiency 30 - 100 ng/mL (75 - 250 nmol/L) Toxicity >100 ng/mL (>250 nmol/L) :00 Ferritin Comments: [address] [place], [address] FERRITIN 13 ng/mL (Normal) Range: 8-252 :00 Lipid Profile Comments: [address] [place], [address] VLDL 28 [...] 200-240 mg/dL Borderline >240 mg/dL High Risk 1-Ubb-448735:40 CBC W/Diff, Automated Comments: Order Date: 09/08/15Has pt arrived? [facility] [address] [place], [place], [address] Absolute Lymph 1.80 {X10_3/ul} (Normal) Range: 0.83-4.51 [...] Profil Comments: Order Date: 09/08/15Has pt arrived? [facility] [address] [place], [address] GAP -1 (Abnormal) Range: 5-15 CO2 30.0 [...] mg/dL (Normal) Range: 70-110 :16 Amylase Comments: [facility] [address] [place], [address] PREMA 95 U/L (Normal) Range: 25-115 :16 Lipase Comments: [facility] [address] [place], [address] LIPASE 568 U/L (Abnormal) Range: 73-393 5-Aju-156522:29 Influenza A&B Viral Comments: PATIENT NOT FASTINGPERFORMED BY: Lyatiss Crelow [facility] [id number] Information: SRC:NOS [id number] Culture (81025) Viral Culture,Rapid,Influenza FLUABN (Normal) Comments: Negative:No Influenza A or B detected. 2-All-122626:49 Rapid Flu (00941 x 2) Influenza A Ag neg (Normal) :01 CBC (Auto) (60201) Comments: now and in six months (approximately); PATIENT WAS FASTINGPERFORMED BY: Brick[employer]70 [facility] [id number] Information: [id number], [id number] Platelets 357 {x10E3/uL} (Normal) Range: 150-379 RDW [...] Basic Comments: now; PATIENT WAS FASTINGPERFORMED BY: My[employer] [facility] [id number] (75924) Calcium, Serum 9.1 mg/dL (Normal) Range: 8.7-10.2 [...] Glucose, Serum 102 mg/dL (Abnormal) Range: 65-99 99-Vet-622909:01 CALCIFIDIOL (96978) VIT D 25 Comments: now and in six months (approximately); PATIENT WAS FASTINGPERFORMED BY: [facility] [id number] Vitamin D, 25-Hydroxy 32.8 ng/mL (Normal) Range: 30.0-100.0 Comments: Vitamin D deficiency has been defined by the [place] of[place]icine and an Endocrine Society practice guideline as alevel of serum 25-OH vitamin D less than 20 ng/mL (1,2).The Endocrine Society went on to further define vitamin Dinsufficiency as a level between 21 and 29 ng/mL (2).1. IOM ([place] of Medicine). 2010. Dietary reference intakes for calcium and D. [place]: The National Academies Press.2. Candelaria MF, Jaeny NC, Yolande GROSS, et al. Evaluation, treatment, and prevention of vitamin D deficiency: an Endocrine Society clinical practice guideline. JCEM. 2010; 96(7):1911-30. 7-Oew-731162:06 Sputum Culture (64414) Comments: PATIENT NOT FASTINGPERFORMED BY: [employer]70 [facility]Al[facility] [id number] Information: [id number] Result 1 RRF (Normal) Comments: Routine respiratory rajwinder Lower Respiratory Culture Final report (Normal) 7-Mpy-842610:12 Rapid Flu (55303 x 2) Influenza A Ag neg a and b (Normal) 06-Aws-881473:01 Urinalysis, Office (21248) UA - LEUKOCYTE ESTERASE Negative (Normal) UA - NITRITE Negative (Normal) URINE UROBILINGN YANCI TIMED Normal mg/dL (Normal) UA - PROTEIN Negative mg/dL (Normal) UA - PH 6.0 (Normal) Comments: 5.5 UA - BLOOD Negative (Normal) UA - SPECIFIC GRAVITY 1.025 (Normal) UA - KETONES Negative mg/dL (Normal) UA - BILIRUBIN Negative (Normal) UA - GLUCOSE Negative (Normal) 04-Wqn-604506:40 Lipase (37793) Comments: PATIENT NOT FASTINGPERFORMED BY: Fabler ComicsUniversity [facility]West6370 [facility] [id number] Lipase, Serum 113 U/L (Abnormal) Range: 0-59 72-Oyz-111660:40 Amylase (41903) Comments: PATIENT NOT FASTINGPERFORMED BY: Fabler ComicsUniversity [facility]West[address] [place] [address] [id number] Information: [id number] Amylase, Serum 104 U/L (Normal) Range: 31-124 2-Oac-122901:54 Sputum Culture (73154) Comments: PATIENT NOT FASTINGPERFORMED BY: Fabler ComicsUniversity [facility]West[address] [place] [address] [id number] Information: SRC: THROAT [id number] Result 1 RRF (Normal) Comments: Routine respiratory rajwinder Lower Respiratory Culture Final report (Normal) 6-Aqu-934292:55 Pathology Report Comments: PERFORMED BY: [facility]regMETROHE[facility] Cyto Iazya53457 [facility] [id number] BY: [facility] Dermatopathology Kxofzbo[address] [id number] Information: [id number] See MATER Comments: Material submitted: .PUNCH BIOPSY [...] IS NEGATIVE FOR FUNGAL FORMS.Pathologist provided ICD-9:692.9CPT .696844, 541789 50-Hly-265053:41 Lipid Panel (19694) Comments: PATIENT WAS FASTINGPERFORMED BY: Fabler ComicsUniversity [facility]6370 [facility] [id number] LDL/HDL Ratio 1.0 {ratio_units} (Normal) Range: 0.0-3.2 [...] - 169 >19 years 100 - 199 67-Kqi-224320:41 Metabolic Panel, Comments: PATIENT WAS FASTINGPERFORMED BY: Fabler ComicsUniversity [facility]West6370 [facility] [id number] Information: [id number] Comprehensive (14465) ALT (SGPT) 13 [iU]/L (Normal) Range: 0-32 [...] Glucose, Serum 97 mg/dL (Normal) Range: 65-99 64-Xko-237439:41 Vitamin B-12 (cyanocobalamin) Comments: PATIENT WAS FASTINGPERFORMED BY: LabPuzzleSocialGreystone Park Psychiatric HospitalJubrkb7429 [place] [facility] [id number] (57344) Vitamin B12 632 pg/mL (Normal) Range: 211-946 :41 CBC (Auto) (04509) Comments: PATIENT WAS FASTINGPERFORMED BY: LabCoGreystone Park Psychiatric HospitalAxwewr1176 [facility] [id number] Platelets 270 {x10E3/uL} (Normal) Range: 150-379 RDW 13.9 % (Normal) Range: 12.3-15.4 MCHC 32.8 g/dL (Normal) Range: 31.5-35.7 MCH 29.5 pg (Normal) Range: 26.6-33.0 MCV 90 fL (Normal) Range: 79-97 Hematocrit 36.6 % (Normal) Range: 34.0-46.6 Hemoglobin 12.0 g/dL (Normal) Range: 11.1-15.9 RBC 4.07 {x10E6/uL} (Normal) Range: 3.77-5.28 WBC 8.5 {x10E3/uL} (Normal) Range: 3.4-10.8 :41 Ferritin (84789) Comments: PATIENT WAS FASTINGPERFORMED BY: LabCoGreystone Park Psychiatric HospitalOffpng8947 [facility] [id number] Ferritin, Serum 28 ng/mL (Normal) Range: 15-150 :41 CALCIFIDIOL (03117) VIT D 25 Comments: PATIENT WAS FASTINGPERFORMED BY: [facility] Ltknyj4255 [facility] [id number] Vitamin D, 25-Hydroxy 24.3 ng/mL (Abnormal) Range: 30.0-100.0 Comments: Vitamin D deficiency has been defined by the [place] ofOhiohealth Doctors Hospitalcine and an Endocrine Society practice guideline as alevel of serum 25-OH vitamin D less than 20 ng/mL (1,2).The Endocrine Society went on to further define vitamin Dinsufficiency as a level between 21 and 29 ng/mL (2).1. IOM ([place] of Medicine). 2010. Dietary reference intakes for calcium and D. [place]: The National Academies Press.2. Candelaria MF, Janey NC, Yolande GROSS, et al. Evaluation, treatment, and prevention of vitamin D deficiency: an Endocrine Society clinical practice guideline. JCEM. 2010; 96(7):1911-30. :55 CBC-Complete Blood Cnt No Diff Comments: Test performed at:[facility] C[address]vbwwlfi[address] [place], [place] [address] MPV 9.5 fL (Normal) Range: 6.2-12.0 PLT [...] 4.2-5.4 WBC 5.1 K/mm3 (Normal) Range: 4.4-11.0 45-Myy-378303:55 Ferritin Comments: Test performed at:[facility] V[address]em[address]ivrf9027 [place] [address] FERRITIN 23 ng/mL (Normal) Range: 8-252 26-Kci-440660:55 Iron Comments: Test performed at:[facility] [address] [place] [address] IRON 75 ug/dL (Normal) Range: 50-170 57-Wlv-952386:53 CBC W/Diff, Automated Comments: Test performed at:[facility] [address] [place], [place] [address] Absolute Lymph 1.57 {X10_3/ul} (Normal) Range: 0.83-4.51 [...] :53 Comprehensive Metabolic Profil Comments: Test performed at:[facility] [address] [place] [address] GAP 5 (Normal) Range: 5-15 CO2 [...] Range: 70-110 :53 Ferritin Comments: Test performed at:[facility] Udhjwmpbny1812 [place] [address] FERRITIN 13 ng/mL (Normal) Range: 8-252 :53 Lipid Profile Comments: Test performed at:[facility] [address]xig[address] [place] [address] VLDL 19 mg/dL (Normal) Range: 5-40 [...] 200-240 mg/dL Borderline >240 mg/dL High Risk 79-Vgc-679843:53 Vitamin B12 > 2000 pg/mL (Abnormal) Comments: Test performed at:[facility] [address] [place] [address] Range: 211-911 83-Tgb-444189:46 CBC W/Diff, Automated Comments: Test performed at:[facility] [address] [place] [id number] Absolute Lymph 1.87 {X10_3/ul} (Normal) Range: 0.83-4.51 [...] 4.2-5.4 WBC 4.1 K/mm3 (Abnormal) Range: 4.4-11.0 79-Qgb-654515:46 Comprehensive Metabolic Profil Comments: Test performed at:[facility] [address]uzyndgk[address] [place], [place] [address] GAP 4 (Abnormal) Range: 5-15 CO2 28.0 [...] :46 Vitamin D,25 Hydroxy Comments: Test performed at:[facility] [address]wrk[address] [place] [address] Vitamin D 25-OH 30.6 ng/mL (Normal) Comments: Vitamin D 25(OH) Status Range Deficiency <20 ng/mL (50nmol/L) Insuffciency 20 - 30 ng/mL (50 - 75 nmol/L) Sufficiency 30 - 100 ng/mL (75 - 250 nmol/L) Toxicity >100 ng/mL (>250 nmol/L) 31-Fwa-066478:04 CALCIFIDIOL (83038) VIT D Comments: PATIENT NOT FASTINGPERFORMED BY: [employer] Wyarzg4885 [facility] [id number] Information: [id number] 25 Vitamin D, 25-Hydroxy 19.2 ng/mL (Abnormal) Range: 30.0-100.0 Comments: Vitamin D deficiency has been defined by the [place] of[place]icine and an Endocrine Society practice guideline as alevel of serum 25-OH vitamin D less than 20 ng/mL (1,2).The Endocrine Society went on to further define vitamin Dinsufficiency as a level between 21 and 29 ng/mL (2).1. IOM ([place] of Medicine). 2010. Dietary reference intakes for calcium and D. [place]: The National Academies Press.2. Candelaria MF, Janey NC, Yolande GROSS, et al. Evaluation, treatment, and prevention of vitamin D deficiency: an Endocrine Society clinical practice guideline. JCEM. 2010; 96(7):1911-30. 83-Tup-474299:04 Ferritin (53887) Comments: PATIENT NOT FASTINGPERFORMED BY: [facility] Ndrxwq1968 [place] [facility] [id number] Ferritin, Serum 34 ng/mL (Normal) Range: 15-150 59-Smr-641635:05 METABOLIC PANEL, COMPREHENSIVE Comments: PATIENT NOT FASTINGPERFORMED BY: FUELUPCo Grubsz3134 [place] [facility] [id number] (44195) ALT (SGPT) 10 [iU]/L (Normal) Range: 0-32 [...] Glucose, Serum 86 mg/dL (Normal) Range: 65-99 57-Skp-211396:05 CBC WITH MANUAL DIFF Comments: PATIENT NOT FASTINGPERFORMED BY: LabCoGreystone Park Psychiatric HospitalIdxnos4716 [facility] [id number] Information: [id number],2ND ORDER NO DRAW F (17483) Immature Grans (Abs) 0.0 {x10E3/uL} (Normal) Range: [...] 5.2 {x10E3/uL} (Normal) Range: 3.4-10.8 :05 CALCIFIDIOL (36301) VIT D 25 Comments: PATIENT NOT FASTINGPERFORMED BY: [facility] Ljwhfs9052 [facility] [id number] Vitamin D, 25-Hydroxy 19.6 ng/mL (Abnormal) Range: 30.0-100.0 Comments: Vitamin D deficiency has been defined by the [place] ofMedicine and an Endocrine Society practice guideline as alevel of serum 25-OH vitamin D less than 20 ng/mL (1,2).The Endocrine Society went on to further define vitamin Dinsufficiency as a level between 21 and 29 ng/mL (2).1. IOM ([place] of Medicine). 2010. Dietary reference intakes for [...] 4.2-5.4 WBC 3.3 K/mm3 (Abnormal) Range: 4.4-11.0 9-Qrr-645545:51 CMP GAP 5 (Normal) Range: 5-15 CO2 [...] CHOL 168 mg/dL (Normal) Comments: <200 mg/dL Mufunnqkn442-068 mg/dL Borderline>240 mg/dL High Risk :51 VITD 38.8 mg/mL (Normal) Comments: Vitamin D 25(OH) Status RangeDeficiency <20 ng/mL (50nmol/L)Insuffciency 20 - 30 ng/mL (50 - 75 nmol/L)Sufficiency 30 - 100 ng/mL (75 - 250 nmol/L)Toxicity >100 ng/mL (>250 nmol/L) 38-Lsk-046286:07 Lipase (11106) Comments: PERFORMED BY: [employer] [facility] [id number] Lipase, Serum 67 U/L (Abnormal) Range: 0-59 :07 Amylase (06645) Comments: PERFORMED BY: CB Everyday Solutionsox RoadDublin [place] [id number] Amylase, Serum 92 U/L (Normal) Range: 31-124 23-Bcv-453483:11 Urinalysis, Office (72338) UA - LEUKOCYTE ESTERASE Negative (Normal) UA - NITRITE Negative (Normal) URINE UROBILINGN YANCI TIMED Normal mg/dL (Normal) UA - PROTEIN Negative mg/dL (Normal) UA - PH 5 (Abnormal) Comments: 5.5 UA - BLOOD Negative (Normal) UA - SPECIFIC GRAVITY 1.015 (Normal) UA - KETONES 15 mg/dL (Abnormal) UA - BILIRUBIN Small (Normal) UA - GLUCOSE Negative (Normal) 41-Mix-125707:28 GRETTA CULTURE-OTHER (83215) Comments: PATIENT NOT FASTINGPERFORMED BY: [place] [address]70 [facility] [id number] Information: SRC:THRT [id number] Result 1 RRF (Normal) Comments: Routine respiratory rajwinder Upper Respiratory Culture Final report (Normal) 18-Bzk-624367:32 Rapid Strep Test, Office (07509) Rapid Strep Test, Office Negative (Normal) 43-Trz-033734:02 Iron Binding Capacity Comments: PATIENT NOT FASTINGPERFORMED BY: [facility]6370 [facility] [id number] Information: [id number] (TIBC) (09732) Iron Saturation 6 % (Abnormal) Range: 15-55 Iron, Serum 32 ug/dL (Abnormal) Range: 35-155 UIBC 461 ug/dL (Abnormal) Range: 150-375 Iron Bind.Cap.(TIBC) 493 ug/dL (Abnormal) Range: 250-450 32-Seh-818251:02 Ferritin (23187) Comments: PATIENT NOT FASTINGPERFORMED BY: [facility]6370 [facility] [id number] Ferritin, Serum 7 ng/mL (Abnormal) Range: 15-150 7-Ynw-552207:19 PREMA 80 U/L (Normal) Range: 25-115 3-Cft-942272:19 B12 386 pg/mL (Normal) Range: 211-911 1-Yss-832430:19 CMP GAP 7 (Normal) Range: 5-15 CO2 [...] CHOL 181 mg/dL (Normal) Comments: <200 mg/dL Qygbsedpj602-483 mg/dL Borderline>240 mg/dL High Risk :19 VITD [...] 7-18 GLU 79 mg/dL (Normal) Range: 70-110 14-Npf-465363:18 TS Ab SCREEN GEL NEGATIVE (Normal) SCREEN CELL I NEGATIVE (Normal) SCREEN CELL II NEGATIVE (Normal) SCREEN CELL III NEGATIVE (Normal) BLOOD TYPE GEL O POSITIVE (Normal) 63-Utj-550771:17 Metabolic Panel, Comments: PATIENT NOT FASTINGPERFORMED BY: LabCoGreystone Park Psychiatric HospitalKtvwbn0662 [facility] [id number] Information: [id number] Comprehensive (22918) ALT (SGPT) 13 [iU]/L (Normal) Range: 0-32 [...] s (Normal) Range: 11.9-14.4 :41 VIT D,25 26901 20.3 ng/mL (Abnormal) Range: 30.0-100.0 Comments: Vitamin D deficiency has been defined by the [place] ofMedicine and an Endocrine Society practice guideline as alevel of serum 25-OH vitamin D less than 20 ng/mL (1,2).The Endocrine Society went on to further define vitamin Dinsufficiency as a level between 21 and 29 ng/mL (2).1. IOM ([place] of Medicine). 2010. Dietary reference intakes for calcium and D. [place]: The National Academies Press.2. Candelaria MF, Janey ELIAS, Yolande GROSS, et al. Evaluation, treatment, and prevention of vitamin D deficiency: an Endocrine Society clinical practice guideline. JCEM. 2010; 96(7): 1911-30.Performed at: - LabPuzzleSocial[address] [id number] Director: Yony San MD, Phone: [phone] at: [facility] LabPuzzleSocial[address] [id number] Director: Era Tinoco MD, Phone: [phone] 70-Eiz-674278:41 VITD 1,25 48585 44.5 pg/mL (Normal) Range: 10.0-75.0 8-Bip-393736:09 PREMA 87 U/L (Normal) Range: 25-115 5-Epo-967653:09 CBCD ABSOLUTE NEUT 4.0 3/uL (Normal) Range: [...] Please note:LIPASE revised reference range effective 09. 19-Icx-895462:05 LIPID Comments: COMMENTS: FAX RESULTS TO DR [...] 200-240 mg/dL Borderline >240 mg/dL High Risk [id number]-Jmp-089906:54 BILAT SCRN DIGITAL & CAD Radiology Report [...] 11/20/10 0112 Sign by: Bartolome Patel MD [id number]:54 DEXA BONE DENSITY STUDY (HP) Radiology Report See Note (Normal) Comments: CLINICAL:Female, 55 years old. The patient is postmenopausal. EXAMINATION:DUAL ENERGY X-RAY ABSORPTIOMETRY / DEXA. TECHNIQUE:Bone Mineral Density (BMD) measurements of lumbar spine and bila teralhipswer e obtained using a INNOBI scanner.. COMPARISON:Comparison is made with prior study [...] on 11/20/1030 Sign by: Bartolome Patel MD 6-Vwo-[id number]:46 DESIRAE DIR SEMI-QL Comments: ORDERED CBC LUZ [...] DNA UAPROTEIN C3 C4 TSH; appt 11/02/10 [facility] OPERATOR AB 14 AU/mL (Normal) ANTI-TORRES AB 7 [...] ANTI-SCL 70 14 AU/mL (Normal) :46 ANTI-CCP 199533 < 1 {units} (Normal) Comments: ORDERED CBC [...] C4 TSH Range: 8-252 :46 HB CORE [id number] SeeNote (Normal) Comments: ORDERED CBC LUZ MARINA FEDRCOREY ORDERED CMP CBCD CRP ESR VITD HEPB SURF AB CCPHEPB IRINA AG HEPC DESIRAE RA HEPB CORE IGM UAC SCL70 ANTOINE ANTI JOANTICENT AB SSA SSB DNA UAPROTEIN C3 C4 TSH Comments: Result: Negative Performed at: - [facility] [address] [id number] Director: Era Tinoco MD, Phone: [phone] at: - [facility] [id number] Director: Yony San MD, Phone: [phone] :[phone] HBsAg 6510 Comments: ORDERED CBC LUZ [...] of antibody present. :46 HEP C AB 062300 <0.1 (Normal) Comments: ORDERED CBC LUZ MARINA [...] C4 TSH Range: 0.358-3.74 :46 VIT D,25 53204 9.3 ng/mL (Abnormal) Comments: ORDERED CBC LUZ [...] 4.2-5.4 WBC 9.8 K/mm3 (Normal) Range: 4.4-11.0 41-Atc-725606:10 FERRITIN 21 ng/mL (Normal) Comments: COMMENTS: FAX RESULTS TO DR. CECI FARIAS DRAWRESULTS FAXED 07/17/10 VLADIMIR SALAMANCA. Range: 8-252 06-Rms-326152:10 IRON 125 ug/dL (Normal) Comments: COMMENTS: FAX RESULTS TO DR. CECI FARIAS DRAWRESULTS FAXED 07/17/10 VLADIMIR SALAMANCA. Range: 50-170 76-Luq-840471:20 CBC With Differential/Platelet Comments: PERFORMED BY: [facility] [id number] Baso (Absolute) 0.0 {x10E3/uL} (Normal) Range: 0.0-0.2 [...] 11.7-15.0 WBC 5.3 {x10E3/uL} (Normal) Range: 4.0-10.5 57-Syl-227179:20 Comp. Metabolic Panel (14) Comments: [facility]FORMED BY: [facility] [id number] ALT (SGPT) 18 [iU]/L (Normal) Range: 0-40 [...] Serum 14 ng/mL (Normal) Comments: PERFORMED BY: [facility] [id number] 14:20 Range: 13-150 68-Edi-809973:20 Iron and TIBC Comments: PERFORMED BY: [employer] [place] [facility] [id number] Iron Saturation 23 % (Normal) Range: 15-55 Iron, Serum 106 ug/dL (Normal) Range: 35-155 UIBC 361 ug/dL (Normal) Range: 150-375 Iron Bind.Cap.(TIBC) 467 ug/dL Range: 250-450 (Abnormal) TSH 1.760 {uIU/mL} Comments: PERFORMED BY: [facility] [id number] :20 (Normal) Range: 0.450-4.500 C DIF TOXIN/AG See Note (Normal) Comments: PT COLLECTED SPECIMEN 12/30 @2300 :45 Comments: C. DIFF ANTIGENS NEGATIVE :45 CUL STOOL/SHIG Comments: PT COLLECTED SPECIMEN 12/30 @2300 CULTURE, STOOL See Note (Normal) Comments: COPY OF REPORT S[facility]. No Salmonella, Shigella or Yersinia isolated.No [...] Crytosporidium parvum,Cyclospora, or Microsporidia.__ TESTING PERFORMED AT [facility]. ORIGINAL REPORT ONFILE IN LAB CONTAINS [...] (Normal) GLU 102 mg/dL (Normal) Range: 70-110 58-Pjr-914986:37 OCCULT BLOOD FECES SCREEN (28396) OCCULT BLOOD FECES SCREEN negative (Normal) 02-Naj-033738:03 CBCD,SMEAR DIFF PLT EST SeeNote (Normal) Comments: [...] 4.2-5.4 WBC 4.2 K/mm3 (Abnormal) Range: 4.4-11.0 24-Ddh-129398:03 COMP METABOLIC CL 96 mmol/L (Abnormal) Range: [...] 6.4-8.2 GLU 94 mg/dL (Normal) Range: 70-110 10-Bbm-082080:03 FERRITIN 12 ng/mL (Normal) Range: 8-252 37-Cpv-360577:03 IRON 128 ug/dL (Normal) Range: 50-170 16-Mfq-162530:03 LIPID LDL 86 mg/dL (Normal) Range: 0-130 VLDL 18 mg/dL (Normal) Range: 5-40 HDL 79 mg/dL (Normal) Comments: Reference RangeHDL <40 mg/dL Low HDL CholesterolHDL >or= 60 mg/dL High HDL Cholesterol CHOL 183 mg/dL (Normal) Comments: <200 mg/dL Miehqdbgu353-149 mg/dL Borderline>240 mg/dL High Risk TRIG 88 mg/dL (Normal) Comments: Serum Triglycerides Reference IntervalNormal <150 mg/dLBorderline high 150 - 199 mg/dLHigh 200 - 499 mg/ dLVery High > or = 500 mg/dL 31-Fls-859373:03 VITAMIN B12 342 pg/mL (Normal) Range: 254-1320 10-Apr-20090:00 FLU A+B DIRECT See Note (Normal) Comments: Negative test results should be confirmed by culture. Order Rapid Viral Culture for Influenzae A+B (169541) if clinically indicated. INFLUENZA ANTIGEN,DIRECT Presumptive NEGATIVE for Influenza A/B Antigen (See Note) 28-Sri-305524:43 CHEST, PA AND LATERAL Radiology Report See Note (Normal) Comments: Exam Number: [id number] CLINICAL DATAInterstitial lung disease, cough. CHEST PA [...] pneumonia. Possible bronchitis. Reported By: FLORINDA CAMPOS 42-Clj-098125:45 L/S SPINE,MIN 4 VIEWS Radiology Report See Note (Normal) Comments: Exam Number: [id number] CLINICAL PROBLEMLow back pain post fall. LUMBAR [...] and spondylosis. Reported By: AROLDO TILLMAN M.D. 09-Bbu-856795:44 KNEE,4 OR MORE VIEWS Radiology Report See Note (Normal) Comments: Exam Number: [id number] CLINICAL PROBLEMPain both knees post fall. FOUR [...] patellofemoral compartments. Reported By: AROLDO TILLMAN M.D. 62-Mpl-723233:44 KNEE,4 OR MORE VIEWS Radiology Report See Note (Normal) Comments: Exam Number: [id number] CLINICAL PROBLEMLeft knee pain status post fall. [...] Order Rapid Viral Culture for Influenzae A+B ([id number]) if clinically indicated. INFLUENZA ANTIGEN,DIRECT Presumptive NEGATIVE for Influenza A/B Antigen (See Note) 12-Sep-2008 PREMA 66 U/L (Normal) Range: 25-115 12:11 71-Zdt-892641:11 CBCD BASO% 0.2 % (Normal) Range: 0-1 [...] 4.2-5.4 WBC 4.2 K/mm3 (Abnormal) Range: 4.4-11.0 23-Yfl-675360:11 COMP METABOLIC A/G 1.2 {RATIO} (Normal) Range: [...] T PROT 6.9 g/dL (Normal) Range: 6.4-8.2 54-Dkm-401044:11 ESR SED RATE 3 mm/h (Normal) Range: 0-30 40-Oms-128578:11 LIPASE 229 U/L (Normal) Range: 114-286 40-Uqs-202958:11 LIPID CHOL 180 mg/dL (Normal) Comments: <200 [...] mg/dL VLDL 19 mg/dL (Normal) Range: 5-40 36-Btn-804189:11 MG 1.9 mg/dL (Normal) Range: 1.5-2.2 59-Zxz-052593:00 CBCD BASO% 0.3 % (Normal) Range: 0-1 [...] 11.6-14.6 WBC 4.9 K/mm3 (Normal) Range: 4.4-11.0 79-Zmw-003553:00 COMP METABOLIC A/G 1.2 {RATIO} (Normal) Range: [...] T PROT 6.7 g/dL (Normal) Range: 6.4-8.2 69-Ntu-133162:00 METHYLM 149238 330 nmol/L (Normal) Range: 73-376 Comments: The reference range for methylmalonic acid has been set at+3sd above the mean for healthy blood bank donors. In theclinical assessment of patients with megaloblastic anemiasa cutoff of +3sd provides gre ater specificity in thediagnosis of the vitamin deficiency states, despite thesacrifice of some sensitivity.Performed At: [facility] [address] [id number] 2-Fed-436978:55 Lower Respiratory Culture Comments: Clinical Information: SRC:SP PERFORMED BY: [facility] [id number] Lower Respiratory Culture Final report (Normal) Result 1 RRF (Normal) Comments: Routine respiratory rajwinder :3 PREMA 62 U/L (Normal) Range: 25-115 6 :36 DESIRAE-D 624238 DESIRAE-DIRECT 23 AU/mL (Normal) Range: 0-99 Comments: [...] {IU/mL} (Normal) Range: 0.0-13.9 Comments: Performed At: [facility] [place], [place] [id number] :36 TSH 1.76 {uIU/mL} (Normal) Range: 0.34-4.82 :29 HgA1C , Office (10452) HgA1C , Office 5.5 % (Normal) Range: 4.6 - 7.1 :29 Blood Glucose , Office (76880) Blood Glucose , Office 108 (Normal) :51 CHEST, PA AND LATERAL Radiology Report See Note (Normal) Comments: Exam Number: [id number] PA AND LATERAL CHEST HISTORY Being done [...] acute infiltrate. Reported By: JERARDO BEAULIEU M.D. 5-Kti-345451:57 Rapid Flu (38983 x 2) INFLUENZA IMMUNOASSY DIRECT OPTICAL OBSERV [...] mg/dL VLDL 43 mg/dL (Abnormal) Range: 5-40 94-Ltv-125355:57 VITAMIN B12 370 pg/mL (Normal) Range: 211-911 15-Ydn-224160:57 VITD 34339 69.6 (Normal) Comments: Performed At: [facility] [place] [address] [place], [place] [id number] 28-Raf-818820:47 CHEST, PA AND LATERAL Radiology Report See Note (Normal) Comments: Exam Number: [id number] PA AND LATERAL CHEST HISTORY Being done [...] perihilar infiltrate. Reported By: JERARDO BEAULIEU M.D. 66-Ixp-132706:08 Upper Respiratory Culture Comments: Clinical Information: SRC: PERFORMED BY: [facility] [id number] Result 1 RRF (Normal) Comments: Routine respiratory rajwinder Upper Respiratory Culture Final report (Normal) 7-Gnf-828999:39 CHEST WITHOUT CONTRAST Radiology Report See Note (Normal) Comments: Exam Number: [id number] CT SCAN OF CHEST HISTORYNeoplasm of uncertain [...] PREMA 73 U/L (Normal) Range: 25-115 :01 22-Yqn-360423:01 CBCD BASO% 0.3 % (Normal) Range: 0-1 [...] 5 days. Comments: COMMENTS: ROOM 12 (Normal) 01-Coj-383800:20 COMPLETE UA Comments: COMMENTS: ROOM 12HOLD IN [...] WBC 0 SEEN {/hpf} (Normal) Range: 0-5 59-Iqt-546499:10 BMP Comments: COMMENTS: ROOM 12 BUN 8 [...] 3.5-5.1 NA 132 mmol/L (Abnormal) Range: 136-145 23-Hpc-741662:10 CBCD Comments: COMMENTS: ROOM 12 BASO% 0.2 [...] (Normal) WBC 10.6 K/mm3 (Normal) Range: 4.4-11.0 75-Kat-431011:10 LIPASE 212 U/L (Normal) Comments: COMMENTS: ROOM 12 Range: 114-286 28-Wew-582245:10 LIVER Comments: COMMENTS: ROOM 12 ALB 3.4 [...] 29 [iU]/L (Abnormal) Range: 30-65 :07 DESIRAE-D 372163 DESIRAE-DIRECT 24 U/mL (Normal) Range: 0-99 Comments: Negative <100 Equivocal 100 - 120 Positive >120Performed At: [facility] [address] [place], [place] [id number] At: [facility] [address] [place], [place] [id number] :07 See Note (Normal) Comments: CHECK BLOOD [...] 5.8 K/mm3 (Normal) Range: 4.4-11.0 : HISTOPL 451029 SeeNote (Normal) Comments: Result: Negative :07 RA LATEX 6502 8.6 {IU/mL} (Normal) Range: 0.0-13.9 75-Tfv-290420:24 CHEST, PA AND LATERAL Radiology Report See Note (Normal) Comments: Exam Number: [id number] CHEST, PA AND LATERAL HISTORYFever and cough. COMPARISONNone. FINDINGSThere is an indwelling Tucy-M-Ppnjlacq on the right side particularlyin the SVC. [...] mm/h (Normal) Range: 0-30 :02 Urinalysis, Office (21545) Comments: ABn signed CH UA - BILIRUBIN [...] pg/mL (Abnormal) Range: 211-911 Comments: Performed At: [address] [id number] 3-Jut-154089:00 CULTURE, THROAT See Note (Normal) Comments: Normal throat rajwinder isolated. No beta-hemolyticstreptococcus isolated. 6-Bju-300349:52 Urinalysis, Office (58201) UA - BILIRUBIN Negative (Normal) UA - [...] unspecified site Planned Observations URINALYSIS, W/ MICRO (73175)Indication: Chronic pancreatitis On: :30 Request Metabolic Panel, Comprehensive (53754)Indication: Chronic pancreatitis On: : Request CBC WITH MANUAL DIFF (78492)Indication: Chronic pancreatitis On: :03 Request LIPASE (90065)Indication: Chronic pancreatitis On: :03 Request AMYLASE (07071)Indication: Chronic pancreatitis On: :03 Request AMYLASE (90099)Indication: Chronic pancreatitis On: 08-Zui-548075:48 Request LIPASE (50674)Indication: Chronic pancreatitis On: :48 Request METABOLIC PANEL, COMPREHENSIVE (46264)Indication: Chronic pancreatitis On: 73-Hnc-873641:47 Request LIPOPROTEIN, BLD, BY NMR (60575)Indication: Hyperlipidemia On: :47 Request Ferritin (08029)Indication: Iron deficiency anemia due to dietary causes On: 13-Hta-716280:51 Request LIPASE (80398)Indication: Chronic pancreatitis On: 66-Rvx-612166:51 Request AMYLASE (99301)Indication: Chronic pancreatitis On: 57-Nrh-733544:50 Request URINALYSIS (17875)Indication: Chronic pancreatitis On: :50 Request CBC WITH MANUAL DIFF (06887)Indication: Chronic pancreatitis On: :50 Request Metabolic Panel, Comprehensive (88270)Indication: Chronic pancreatitis On: 55-Wrs-663014:50 Request PT (PROTHROMBIN TIME) (84316)Indication: PFO (patent foramen ovale) On: 13-Xbx-249548:36 Request Vitamin B-12 (cyanocobalamin) (36956)Indication: S/P gastric bypass On: :21 Request Ferritin (38087)Indication: Iron deficiency anemia due to dietary causes On: 9-Wfd-477067:21 Request CBC, Platelets & Auto Diff (21948)Indication: Chronic pancreatitis On: : Request Metabolic Panel, Comprehensive (30290)Indication: Chronic pancreatitis On: 3-Qii-547154: Request CALCIFIDIOL (89192) VIT D 25Indication: Vitamin D deficiency, unspecified On: 51-Jsb-39266:55 Request Comments: re check in 8 weeks Sed Rate Erythrocyte (93942)Indication: Fever On: 29-Uyg-149160:39 Request URINALYSIS (41943)Indication: Fever On: 47-Qfu-705669:33 Request URINE GRETTA CULTURE-IDENTIFICATN (20232)Indication: Fever On: :33 Request CALCIFIDIOL (30864) VIT D 25Indication: Vitamin D deficiency, unspecified On: 93-Soa-247522:32 Request CBC, Platelets & Auto Diff (73573)Indication: Iron deficiency anemia due to dietary causes On: :32 Request Ferritin (13986)Indication: Iron deficiency anemia due to dietary causes On: 11-Aha-107685:32 Request GRETTA CULTURE-BLOOD (16822)Indication: Fever On: 81-Nkb-205104:30 Request Comments: ONE FROM PORT AND ONE PERIPHERAL CALCIFIDIOL (44451) VIT D 25Indication: Vitamin D deficiency, unspecified On: 40-Bat-413887:24 Request FERRITIN (52511)Indication: Iron deficiency anemia due to dietary causes On: 76-Kez-785341:22 Request EBV ANTIBODY VCA/EA 16366 (72802)Indication: Fatigue On: 94-Azj-855123:31 Request Comments: please do VCA IGM Ferritin (33143)Indication: Iron deficiency anemia due to dietary causes On: 61-Unm-071586:00 Request CALCIFIDIOL (25519) VIT D 25Indication: Vitamin D deficiency, unspecified On: 16-Tym-882318:00 Request EBV Panel (15874)Indication: Pharyngitis, acute On: 62-Ytl-632880:58 Request Influenza A&B Viral Culture (98552)Indication: Fever On: :34 Request GRETTA CULTURE-OTHER (64421)Indication: Fever On: :33 Request Rapid Strep Test, Office (76185)Indication: Fever On: :18 Request Troponin I (73674)Indication: Chest pain at rest On: 33-Xcs-180486:43 Request Comments: pls add to labs already done MYOGLOBIN (23789)Indication: Chest pain at rest On: : Request CPK MB FRACTION (56634)Indication: Chest pain at rest On: : Request Sed Rate Erythrocyte (16598)Indication: Chest pain at rest On: : Request CBC WITH MANUAL DIFF (92447)Indication: Chest pain at rest On: : Request CALCIFEDIOL (53344)Indication: OTHER AND UNSPECIFIED POSTSURGICAL NONABSORPTION On: :12 Request PARATHORMONE (14651)Indication: OTHER AND UNSPECIFIED POSTSURGICAL NONABSORPTION On: :12 Request Magnesium (61053)Indication: OTHER AND UNSPECIFIED POSTSURGICAL NONABSORPTION On: : Request Phosphorus (92714)Indication: OTHER AND UNSPECIFIED POSTSURGICAL NONABSORPTION On: :12 Request IRON (18111)Indication: OTHER AND UNSPECIFIED POSTSURGICAL NONABSORPTION On: :12 Request FERRITIN (22174)Indication: OTHER AND UNSPECIFIED POSTSURGICAL NONABSORPTION On: :12 Request ZINC, BLOOD (16647)Indication: OTHER AND UNSPECIFIED POSTSURGICAL NONABSORPTION On: :12 Request VITAMIN A (62631)Indication: OTHER AND UNSPECIFIED POSTSURGICAL NONABSORPTION On: :12 Request TSH (87039)Indication: OTHER AND UNSPECIFIED POSTSURGICAL NONABSORPTION On: :12 Request MAGNESIUM (83975)Indication: OTHER AND UNSPECIFIED POSTSURGICAL NONABSORPTION On: :12 Request Folic Acid Serum (70944)Indication: OTHER AND UNSPECIFIED POSTSURGICAL NONABSORPTION On: :12 Request CHROMIUM (36341)Indication: OTHER AND UNSPECIFIED POSTSURGICAL NONABSORPTION On: :12 Request ASSAY, HOMOCYSTINE (15663)Indication: OTHER AND UNSPECIFIED POSTSURGICAL NONABSORPTION On: :12 Request Metabolic Panel, Basic (52304)Indication: Abdominal pain On: :11 Request Comments: do on this tuesday OSMOLALITY URINE (65906)Indication: Abdominal pain On: 42-Vnd-984213:11 Request Comments: today in ambulatory OSMOLALITY BLOOD (42835)Indication: Abdominal pain On: :11 Request Comments: today in ambulatory Lipase (99063)Indication: Abdominal pain On: :11 Request Comments: today in ambulatory Amylase (33260)Indication: Abdominal pain On: :11 Request Comments: today in ambulatory CBC, Platelets & Auto Diff (74674)Indication: Abdominal pain On: :11 Request Comments: today in ambulatory Metabolic Panel, Comprehensive (80727)Indication: Abdominal pain On: 23-Egd-925564:10 Request Comments: today in ambulatory AMYLASE (76176)Indication: Abdominal pain On: 3-Utc-689606:12 Request LIPASE (08188)Indication: Abdominal pain On: 8-Srd-808090:12 Request Ferritin (74048)Indication: Iron deficiency anemia due to dietary causes On: :20 Request Comments: in six months (approximately) Vitamin B-12 (cyanocobalamin) (34626)Indication: Other vitamin B12 deficiency anemia On: 68-Jva-340667:19 Request Comments: in six months (approximately) Lipid Panel (11269)Indication: High blood triglycerides On: :19 Request Comments: in six months (approximately) Metabolic Panel, Comprehensive (03729)Indication: Chronic pancreatitis On: :19 Request Comments: in six months (approximately) Vitamin B-12 (cyanocobalamin) (99768)Indication: Other vitamin B12 deficiency anemia On: :27 Request METABOLIC PANEL, COMPREHENSIVE (33294)Indication: High blood triglycerides On: :19 Request LIPID PANEL (65268)Indication: High blood triglycerides On: :19 Request CBC, Platelets & Auto Diff (23897)Indication: Iron deficiency anemia due to dietary causes On: :15 Request Ferritin (00895)Indication: Iron deficiency anemia due to dietary causes On: :15 Request Iron (53452)Indication: Iron deficiency anemia due to dietary causes On: :29 Request Comments: recheck in 4 weeks pt needs to be fasting Iron Binding Capacity (TIBC) (95343)Indication: Iron deficiency anemia due to dietary causes On: :29 Request Comments: recheck in 4 weeks pt needs to be fasting Ferritin (09785)Indication: Iron deficiency anemia due to dietary causes On: :28 Request Comments: recheck in 4 weeks pt needs to be fasting METABOLIC PANEL, COMPREHENSIVE (55067)Indication: High blood triglycerides On: 30-Cid-897959:33 Request LIPID PANEL (38582)Indication: High blood triglycerides On: :33 Request CBC (Auto) (01437)Indication: Iron deficiency anemia due to dietary causes On: :33 Request Ferritin (38431)Indication: Iron deficiency anemia due to dietary causes On: 48-Pnm-375558:33 Request Vitamin B-12 (cyanocobalamin) (66880)Indication: Other vitamin B12 deficiency anemia On: 74-Nls-708295:32 Request CALCIFIDIOL (66188) VIT D 25Indication: Vitamin D deficiency, unspecified On: 85-Bsl-306684:32 Request CULTURE, SPUTUM (87762)Indication: Cough On: 9-Yhh-849763:36 Request Iron (12875)Indication: Iron deficiency anemia due to dietary causes On: 84-Qxf-098488:53 Request CALCIFIDIOL (17971) VIT D 25Indication: Vitamin D deficiency, unspecified On: 15-Tpq-588313:02 Request CBC (Auto) (37740)Indication: Iron deficiency anemia due to dietary causes On: 0-Hfr-286390:49 Request Metabolic Panel, Comprehensive (21392)Indication: Chronic pancreatitis On: 3-Nda-002247:49 Request Lipid Panel (67151)Indication: High blood triglycerides On: :49 Request Ferritin (95546)Indication: Iron deficiency anemia due to dietary causes On: 5-Xao-844054:48 Request CALCIFEDIOL (70191)Indication: Vitamin D deficiency, unspecified On: :48 Request Vitamin B-12 (cyanocobalamin) (94252)Indication: Other vitamin B12 deficiency anemia On: :47 Request Lipase (13992)Indication: Chronic pancreatitis On: :47 Request Amylase (31523)Indication: Chronic pancreatitis On: :47 Request D-Dimer (19106)Indication: Anemia On: 25-Zwy-835825:28 Request Comments: stat Metabolic Panel, Comprehensive (23132)Indication: Anemia On: :16 Request TYPE & SCREEN GEL (95622)Indication: Anemia On: :16 Request CBC with manual diff (34858)Indication: Anemia On: :15 Request Lipase (62706)Indication: Chronic pancreatitis On: :30 Request Amylase (90012)Indication: Chronic pancreatitis On: 49-Gfk-125647:30 Request Ferritin (42062)Indication: Iron deficiency anemia due to dietary causes On: 71-Rdb-104877:28 Request LIPASE (66231)Indication: Chronic pancreatitis On: 0-Npb-105965:21 Request AMYLASE (91333)Indication: Chronic pancreatitis On: 1-Mdt-016161:21 Request Lipase (26985)Indication: Chronic pancreatitis On: 58-Bov-526996:12 Request Amylase (81780)Indication: Chronic pancreatitis On: 17-Pvf-814655:12 Request MICROALBUMIN: CREATININE RATIO (08144) AND (01725)Indication: Chronic pancreatitis On: 46-Zri-327303:12 Request METABOLIC PANEL, COMPREHENSIVE (78587)Indication: Chronic pancreatitis On: 72-Oef-626718:12 Request LIPID PANEL (57038)Indication: High blood triglycerides On: 14-Pyq-636631:12 Request CBC WITH MANUAL DIFF (01177)Indication: Chronic pancreatitis On: :12 Request Metabolic Panel, Comprehensive (29344)Indication: Chronic pancreatitis On: 6-Rcv-696633:46 Request Lipase (85406)Indication: Chronic pancreatitis On: :46 Request Amylase (59286)Indication: Chronic pancreatitis On: :46 Request CALCIFIDIOL (85228) VIT D 25Indication: Vitamin D deficiency, unspecified On: :43 Request Ferritin (47961)Indication: Iron deficiency anemia due to dietary causes On: :43 Request CBC (Auto) (57107)Indication: Iron deficiency anemia due to dietary causes On: :43 Request PT (Prothrobim Time) (93546)Indication: AFTERCARE, LONG-TERM USE, ANTICOAGULANTS On: :28 Request Lipase (35069)Indication: Chronic pancreatitis On: : Request Amylase (78944)Indication: Chronic pancreatitis On: :25 Request Metabolic Panel, Comprehensive (91753)Indication: Chronic pancreatitis On: :25 Request CBC (Auto) (61701)Indication: Leukopenia On: :25 Request Lipid Panel (56764)Indication: High blood triglycerides On: :25 Request Iron (09421)Indication: Iron deficiency anemia due to dietary causes On: :23 Request Ferritin (99934)Indication: Iron deficiency anemia due to dietary causes On: 7-Fjz-565002:23 Request Vitamin B-12 (cyanocobalamin) (72568)Indication: Other vitamin B12 deficiency anemia On: :23 Request CALCIFIDIOL (15182) VIT D 25Indication: Vitamin D deficiency, unspecified On: :23 Request Lipase (76238)Indication: Chronic pancreatitis On: 7-Vpw-744143:21 Request Amylase (25105)Indication: Chronic pancreatitis On: 6-Nwe-730711:21 Request Comments: pls add to labs already drawn Metabolic Panel, Comprehensive (59097)Indication: Chronic pancreatitis On: 3-Ftw-523785:07 Request Ferritin (09602)Indication: Iron deficiency anemia due to dietary causes On: 7-Fpl-391383:07 Request CBC (Auto) (86247)Indication: Chronic pancreatitis On: 7-Imm-191216:07 Request LIPID PANEL (39277)Indication: High blood triglycerides On: 9-Gre-204554:15 Request Iron Binding Capacity (TIBC) (07923)Indication: Anemia On: :53 Request Iron (47183)Indication: Anemia On: :53 Request Ferritin (19662)Indication: Anemia On: :53 Request CBC (Auto) (04391)Indication: Anemia On: :53 Request Metabolic Panel, Comprehensive (97867)Indication: Chronic pancreatitis On: :53 Request OVA & PARASITE DIR SMEAR (97448)Indication: Diarrhea On: :37 Request LEUKOCYTE COUNT, FECAL (53169)Indication: Diarrhea On: :37 Request C.Difficile, Stool (13704)Indication: Diarrhea On: :37 Request GRETTA CULTURE-STOOL (80653)Indication: Diarrhea On: 99-Nme-752556:37 Request Vitamin B-12 (cyanocobalamin) (76493)Indication: Other vitamin B12 deficiency anemia On: 79-Xkb-140849:05 Request Iron (02903)Indication: Anemia On: 50-Jkb-556460:05 Request Ferritin (58526)Indication: Anemia On: 21-Fdy-647114:05 Request METABOLIC PANEL, COMPREHENSIVE (94749)Indication: High blood triglycerides On: 97-Rcg-390348:05 Request CBC WITH MANUAL DIFF (67358)Indication: Anemia On: 83-Dbc-047104:05 Request LIPID PANEL (52468)Indication: High blood triglycerides On: 31-Yoi-681398:04 Request nasal influenza swab (90415) H2Tsvgeovkwz: Unspecified Diagnosis On: 4-Wvb-825832:29 Request Rapid Flu (47565 x 2)Indication: Fever On: 4-Odq-138897:44 Request Lipid Panel (47513)Indication: High blood triglycerides On: 14-Mcx-604352:53 Request CBC (Auto) (67501)Indication: Chronic pancreatitis On: 28-Ccl-930342:51 Request Metabolic Panel, Comprehensive (97737)Indication: Chronic pancreatitis On: 64-Dol-359236:51 Request Ferritin (47235)Indication: Anemia On: 56-Rgy-676186:51 Request Iron (45634)Indication: Anemia On: :51 Request Vitamin B-12 (cyanocobalamin) (66284)Indication: Other vitamin B12 deficiency anemia On: 45-Hty-436154:51 Request Lipid Panel (29183)Indication: Malabsorption syndrome On: 04-Her-756785:39 Request Sed Rate Erythrocyte (33413)Indication: Chronic pancreatitis On: :35 Request CBC, Platelets & Auto Diff (45033)Indication: Chronic pancreatitis On: :35 Request Magnesium (38700)Indication: Chronic pancreatitis On: :35 Request Lipase (24150)Indication: Chronic pancreatitis On: :35 Request Amylase (87841)Indication: Chronic pancreatitis On: 92-Htk-437973:35 Request Metabolic Panel, Comprehensive (00986)Indication: Chronic pancreatitis On: 36-Xkp-507101:35 Request CBC (Auto) ([id number])Indication: Abdominal pain, acute, generalized On: 07-Fqb-059522:29 Request Metabolic Panel, Comprehensive ([id number])Indication: Abdominal pain, acute, generalized On: 07-Bgm-935694:29 Request Methylmalonic acid, serum 48489Twgchjqccx: Other vitamin B12 deficiency anemia On: 88-Nnt-505047:29 Request CULTURE, SPUTUM ([id number])Indication: Cough On: 3-Zjb-208137:42 Request Lipase (24864)Indication: Acute pancreatitis On: 1-Zgj-512206:59 Request Amylase (22591)Indication: Acute pancreatitis On: 9-Dvu-334217:59 Request DESIRAE (ANTINUCLEAR ANTIBODY) ([id number])Indication: Pain in unspecified joint On: 0-Hho-869507:48 Request C-REACTIVE PROTEIN ([id number])Indication: Pain in unspecified joint On: 9-Ang-855059:48 Request CBC WITH MANUAL DIFF ([id number])Indication: Pain in unspecified joint On: 2-Pjb-666067:48 Request METABOLIC PANEL, COMPREHENSIVE (17756)Indication: Pain in unspecified joint On: 3-Eon-035692:48 Request RHEUMATOID FACTOR-QUANT (75888)Indication: Pain in unspecified joint On: 2-Nxp-675670:48 Request SED RATE ERYTHROCYTE (60654)Indication: Pain in unspecified joint On: 5-Qmi-843721:48 Request TSH (77181)Indication: Pain in unspecified joint On: 0-Adi-679565:48 Request GRETTA CULTURE-OTHER (89136)Indication: Pharyngitis, acute On: 84-Lek-945238:12 Request Rapid Strep Test, Office (23221)Indication: Pharyngitis, acute On: 57-Gcc-112802:12 Request Comments: negative VITAMIN D, 1, 25-DIHYDROXY (26245)Indication: Chronic pancreatitis On: 58-Kiu-535635:46 Request Vitamin B-12 (cyanocobalamin) (41932)Indication: Other vitamin B12 deficiency anemia On: 12-Szn-846974:43 Request Lipase (51843)Indication: Chronic pancreatitis On: 71-Qzp-320166:35 Request Amylase (80639)Indication: Chronic pancreatitis On: 78-Hpl-454485:34 Request CBC (Auto) ([id number])Indication: Chronic pancreatitis On: 02-Mdk-291613:34 Request Metabolic Panel, Comprehensive (63630)Indication: Chronic pancreatitis On: 32-Zvx-650922:34 Request Lipid Panel (83302)Indication: Chronic pancreatitis On: 85-Pdj-510507:34 Request Comments: standing order every 3 months Metabolic Panel, Comprehensive ([id number])Indication: Edema On: 70-Ddg-889919:13 Request CBC, Platelets & Auto Diff ([id number])Indication: Edema On: 78-Xxs-867651:13 Request PTT (Activated Partial Thromboplastin Time) (79461)Indication: Edema On: 69-Eph-473334:12 Request PT (Prothrobim Time) ([id number])Indication: Edema On: 69-Duz-069890:12 Request Lipase (85049)Indication: pancreatitis On: :32 Request Amylase (63391)Indication: pancreatitis On: :32 Request CBC (Auto) (32453)Indication: pancreatitis On: :32 Request Metabolic Panel, Comprehensive ([id number])Indication: pancreatitis On: :32 Request Metabolic Panel, Comprehensive (19027)Indication: Fever On: :57 Request GRETTA CULTURE-BLOOD (92408)Indication: Fever On: :56 Request Comments: one from peripheral GRETTA CULTURE-BLOOD (86351)Indication: Fever On: :56 Request Comments: one from port Sed Rate Erythrocyte (56722)Indication: Fever On: :56 Request CBC, Platelets & Auto Diff ([id number])Indication: Fever On: :56 Request Urinalysis, Office (01193)Indication: Fever On: :56 Request GRETTA CULTURE-OTHER ([id number])Indication: Fever On: 9-Xpb-486585:53 Request Rapid Strep Test, Office ([id number])Indication: Fever On: :52 Request CBC, Platelets & Auto Diff ([id number])Indication: Chronic pancreatitis On: 9-Mdw-113230:46 Request Lipase (96798)Indication: Chronic pancreatitis On: 8-Xaz-516480:46 Request Amylase ([id number])Indication: Chronic pancreatitis On: 1-Yde-733661:46 Request Metabolic Panel, Comprehensive ([id number])Indication: Chronic pancreatitis On: 1-Rce-906041:46 Request FERRITIN ([id number])Indication: Anemia On: 8-Arr-986696:22 Request VITAMIN B-12 (CYANOCOBALAMIN) ([id number])Indication: Other vitamin B12 deficiency anemia On: 4-Yml-692918:22 Request LIPASE (22121)Indication: Acute pancreatitis On: :22 Request ALBUMIN SERUM ([id number])Indication: Acute pancreatitis On: :22 Request CBC (AUTO) ([id number])Indication: Acute pancreatitis On: :21 Request METABOLIC PANEL, BASIC ([id number])Indication: Abnormal blood chemistry On: :21 Request Planned Encounters Medical; TIMO 4 Month Fu - On: 01-Sep-2018 13:30 [facility] Dima DURAN, Adalid Pizano MD, Adalid Rebollar Planned Procedures Flu Vaccine (Quadrivalent) On: 31-Mar-2018 Intent 47937Zi: COMFORT Gallegos Comments: Lot #:[id number] date: 1-94-41Uxeuzd given:0.5mlRoute: IMSite given:L DltdGiven by: Kumar and ABN signed [employer] SCREENING DIGITAL TOMOSYNTHESIS On: 20-Dec-2017 Intent OF BREAST (12017)By: Adalid Pizano MD, MD, Dana M DEXA SCAN AXIAL SKELETON On: 20-Dec-2017 Intent (13692)By: Adalid Pizano MD, MD, Dana M SCREENING DIGITAL TOMOSYNTHESIS On: 29-Apr-2017 Intent OF BREAST (88349)By: Adalid Pizano MD, MD, Dana M Flu Vaccine (Quadrivalent) On: 29-Apr-2017 Intent 16254Kb: Adalid Pizano MD Comments: lot: [id number]: 12/19/ite/route: L kelin, IMamt: 0.5mlVIS and ABN signed when applicableChelsea, SOLUTION ANALYST Adalid Pizano MD CT - Abdomen & Pelvis (IV On: 01-Oct-2016 Intent Contrast Needed)By: Dima DURAN, Comments: attentinon pancrease follow up on kidney cyst. 07-20 creat 0.76 Adalid Ghosh MD Flu Vaccine (Quadrivalent) On: 17-May-2016 Intent 93275My: Adalid Pizano MD Comments: FLUlot: [id number]:11/17site:Lt deltoidroute:IMdose:.5mlDEMICK, MA Adalid Pizano MD Aerosol Treatment (22330)By: On: 27-Apr-2016 Intent Slarb BEATER WORKER HELPER, Kacey DEXA SCAN AXIAL SKELETON On: 09-Mar-2016 Intent (14794)By: Adalid Pizano MD, MD, Dana M MAMMOGRAM, SCREENING, BOTH On: 09-Mar-2016 Intent BREAST (64404)By: Aadlid Pizano MD, MD, Dana M DEXA SCAN AXIAL SKELETON On: 15-Jul-2015 Intent (85790)By: BoneAdalid leigh MD, MD, Dana M MAMMOGRAM, SCREENING, BOTH On: 15-Jul-2015 Intent BREAST (24325)By: Adalid Pizano MD, MD, Dana M Aerosol Treatment ([id number])By: On: 08-Jul-2015 Intent Pamella Saavedra CNP Aerosol Treatment (98843)By: On: 08-Jul-2015 Intent Slarb BEATER WORKER HELPER, Kacey XR HIP RIGHT COMPLETE (50460)By: On: 30-Jun-2015 Intent Adalid Pizano MD, MD, Comments: right hip Adalid Rebollar Radiology - PelvisBy: Dima On: 24-Jun-2015 Intent Adalid DURAN MD, Dana M Comments: and right hip xray Venous Doppler - RightBy: On: 24-Jun-2015 Intent Adalid Pizano MD, MD, Comments: leg Adalid Rebollar Flu Vaccine (Quadrivalent) On: 15-Apr-2015 Intent 69883If: Adalid Pizano MD Comments: lot [id number]: 01/01/2016site/route L kelin, IMamt 0.5mlVIS and ABN signed when applicableChelsea, CMAFM4 Adalid Pizano MD Radiology - ChestBy: Quentin ARGUETA, On: 07-Feb-2015 Intent Adeola Aerosol Treatment (64737)By: On: 07-Feb-2015 Intent Ailyn Aguilar Solu -Medrol Injection, 125 mg On: 05-Feb-2015 Intent (J2930)By: Pamella Saavedra CNP Comments: lot:[id number]:route:IMdose:125MGsite: R glutGiven by: FOX Angeles Solu -Medrol Injection, 125 mg On: 04-Feb-2015 Intent (J2930)By: Pamella Saavedra CNP Aerosol Treatment ([id number])By: On: 04-Feb-2015 Intent Pamella Saavedra CNP MAMMOGRAM, SCREENING, BOTH On: 14-Jan-2015 Intent BREAST (21028)By: Adalid Pizano MD, MD, Dana M Prevnar 13 (29005)By: Dima On: 16-Jul-2014 Intent Adalid DURAN MD, Dana M ADMINISTRATION OF INFLUENZA On: 22-Apr-2014 Intent VIRUS VACCINE (G0008)By: Adalid Pizano MD, MD, Dana M FLU VAC, SPLIT, >3 YEARS, On: 22-Apr-2014 Intent INTRAMUSC (88489)By: Dima DURAN, Comments: Lot #:[id number] date:mount given:0.5mlRoute: IMSite given:left deltoid Given by: Adalid Mota MD Phenergan Injection, up to 50 mg On: 12-Dec-2013 Intent (J2550)By: Pamella Saavedra CNP MAMMOGRAM, SCREENING, BOTH On: 25-Sep-2013 Intent BREASTS (58584)By: Adalid Pizano MD, MD, Dana M Eprescribed prescriptions On: 25-Sep-2013 Intent (G8553)By: Adalid Pizano MD, MD, Dana M Aerosol Treatment (70842)By: On: 05-Sep-2013 Intent Pamella Saavedra CNP CT - Abdomen & Pelvis (IV On: 04-Jun-2013 Intent Contrast Needed)By: Adalid Pizano MD, MD, Dana M DXA, BONE DENSITY, AXIAL On: 04-Jun-2013 Intent SKELETON (51596)By: Dima DURAN, Comments: postmenapausal Adalid Ghosh MD MAMMOGRAM, SCREENING, BOTH On: 04-Jun-2013 Intent BREASTS (58284)By: Adalid Pizano MD, MD, Dana M Pulse Oximetry (72617)By: On: 04-Jun-2013 Intent COMFORT Gallegos Eprescribed prescriptions On: 14-May-2013 Intent (G8553)By: Melba Malloy ELECTROCARDIOGRAM, COMPLETE On: 26-Dec-2012 Intent (ECG) (18118)By: Adalid Pizano MD, MD, Dana M Eprescribed prescriptions On: 26-Dec-2012 Intent (G8553)By: Makenzie Allred LPN MAMMOGRAM, SCREENING, BOTH On: 24-Aug-2012 Intent BREASTS (97453)By: Dima DURAN, Adalid Ghosh MD Pulse Oximetry (90483)By: On: 29-Jun-2012 Intent COMFORT Gallegos Radiology - Chest- PA and LatBy: On: 01-Jun-2012 Intent Sofia Younger DO Eprescribed prescriptions On: 01-Jun-2012 Intent (G8553)By: Kim Garces LPN FLU VAC, SPLIT, >3 YEARS, On: 28-Apr-2012 Intent INTRAMUSC (89855)By: Balaji, Comments: Lot:[id number]:12.31.12Dose:prefilledRoute:IMSite:L DltdGiven By:BARRY Garcia IMMUNIZ ADMNIN, 1 VAC, On: 28-Apr-2012 Intent SNGL/COMBO (19298)By: Radha Carpio TDAP VACCINE >7 IM (35976)By: On: 24-Nov-2011 Intent Long Makenzie ABBOTT Comments: Lot #[id number]- 11.13Site- L arm, ImDose prefilledgiven by: Makenzie MAMMOGRAM, SCREENING, BOTH On: 01-Nov-2011 Intent BREASTS (94335)By: Dima DURAN, Adalid Ghosh MD Aerosol Treatment (21516)By: On: 14-Oct-2011 Intent Sofia Younger DO Comments: [...] SPLIT, >3 YEARS, On: 20-Apr-2011 Intent INTRAMUSC (50272)By: Cayden Comments: Lot #[id number]-3/30/12Site-left deltoidgiven by: Jared Rodarte LPN LPN, Connie IMMUNIZ ADMNIN, 1 VAC, On: 20-Apr-2011 Intent SNGL/COMBO (25819)By: Chery Rodarte LPN 12 Injection, 1000 mcg On: 22-Mar-2011 Intent (J3420)By: COMFORT Gallegos DRAIN/INJECT MAJOR JOINT OR On: 22-Mar-2011 Intent BURSA ()By: COMFORT Gallegos Comments: Lot #:[id number] date: given:2ml Route: intra articular Site given:bilateral knees Given by: Dr. Pizano Pulse Oximetry (39328)By: Janieesjunie On: 19-Mar-2011 Intent MIXING HOUSE OPERATOR, Adeola Aerosol Treatment (43842)By: On: 19-Mar-2011 Intent Ciesa MIXING HOUSE OPERATOR, Adeola DRAIN/INJECT MAJOR JOINT OR On: 12-Mar-2011 Intent BURSA ()By: COMFORT Gallegos Comments: Lot #:[id number] date: given:2ml Route: intra articular Site given:bilateral knees Given by: Dr. Pizano DRAIN/INJECT MAJOR JOINT OR On: 04-Mar-2011 Intent BURSA ()By: COMFORT Gallegos Comments: Lot #:[id number] date: given:2mlRoute: intra articular Site given:Bilateral knees Given by: Dr. Pizano injection #1 Kenalog Injection, 10 mgm On: 08-Feb-2011 Intent (J3301)By: Adalid Pizano MD Comments: x 8 Adalid Pizano MD Breast Ultrasound - LeftBy: On: 08-Feb-2011 Intent Adalid Pizano MD, MD, Dana M DXA, BONE DENSITY, AXIAL On: 02-Nov-2010 Intent SKELETON (92409)By: Adalid Pizano MD, MD, Dana M MAMMOGRAM, SCREENING, BOTH On: 02-Nov-2010 Intent BREASTS (88884)By: Adalid Pizano MD, MD, Dana M FLU VAC, SPLIT, >3 YEARS, On: 17-Jun-2010 Intent INTRAMUSC (52114)By: Cayden Comments: Lot #[id number] 4PExp-10/12Site-right deltoidgiven by:Chery PAVON LPN IMMUNIZ ADMNIN, 1 VAC, On: 17-Jun-2010 Intent SNGL/COMBO (68271)By: Chery Rodarte LPN DXA, BONE DENSITY, AXIAL On: 30-Sep-2009 Intent SKELETON (88762)By: Dima DURAN, Adalid Pizano MD, Adalid Rebollar MAMMOGRAM, SCREENING, BOTH On: 30-Sep-2009 Intent BREASTS (85301)By: Dima DURAN, Adalid Ghosh MD B 12 Injection, 1000 mcg On: 30-Sep-2009 Intent (J3420)By: COMFORT Gallegos Pulse Oximetry (62231)By: Quentin On: 09-Apr-2009 Intent MIXING HOUSE OPERATOR, Adeola Aerosol Treatment (97234)By: On: 09-Apr-2009 Intent Ciesa MIXING HOUSE OPERATOR, Adeola FLU VAC, SPLIT, >3 YEARS, On: 26-Mar-2009 Intent INTRAMUSC (10998)By: Lisa RN, Andie IMMUNIZ ADMNIN, 1 VAC, On: 26-Mar-2009 Intent SNGL/COMBO (31155)By: Lisa RN, Comments: Lot #: [id number] date: mount given: 0.5 mlRoute: IMSite given: left deltoidGiven by: SCAR Montenegro INJECTION, VITAMIN B-12 On: 07-Feb-2009 Intent CYANOCOBALAMIN, UP TO 1000 MCG Comments: Lot #[id number] date:mount given:1mlSite given: right deltoidGiven by:Judith. (Special Coverage Instructions Apply. See CIM: 45-4 and MCM: 2049) (J3420)By: COMFORT Gallegos Pulse Oximetry (55222)By: Ceci On: 04-Dec-2008 Intent DORosa Maria Comments: post kinxrxbjm13% Aerosol Treatment (77455)By: On: 04-Dec-2008 Intent Fast DORosa Maria A Comments: done-aw B 12 Injection, 1000 mcg On: 04-Dec-2008 Intent (J3420)By: Tonia Garcia Comments: Lot #[id number]-05/2010Site-right lclnqvwJfdx7339hvs/1mlgiven by Debbie Lei LPN Pulse Oximetry (92857)By: On: 04-Dec-2008 Intent Tonia Garcia Comments: 91% [...] Intent (J3420)By: COMFORT Gallegos Comments: Lot #[id number]-05/2010Site-right kfgvlojJgod3727juv/1mlgiven by Debbie Lei LPN DRAIN/INJECT MAJOR JOINT OR On: 09-Oct-2008 Intent BURSA ()By: COMFORT Gallegos Comments: Lot #:[id number] date:mo given:Route: intra articular Site given:bilateral knees Given by: Dr. Pizano DRAIN/INJECT MAJOR JOINT OR On: 01-Oct-2008 Intent BURSA ()By: COMFORT Gallegos Comments: Lot #:[id number] date: given:2.5ml Route:intra-articular Site given:Bilateral knees Given by: Dr. Pizano DRAIN/INJECT MAJOR JOINT OR On: 24-Sep-2008 Intent BURSA ()By: COMFORT Gallegos Comments: Lot #:[id number] date: Amount given:2.5 mlRoute: intra-articular Site given:bilateral knees Given by: Dr. Pizano DRAIN/INJECT MAJOR JOINT OR On: 17-Sep-2008 Intent BURSA ()By: COMFORT Gallegos Comments: Lot #:[id number] date:mo given:2 grams Route: Intra articular Site given: bilateral knees Given by: Dr. Pizano DRAIN/INJECT MAJOR JOINT OR On: 13-Sep-2008 Intent BURSA (64139)By: COMFORT Gallegos Comments: Lot #:[id number] date:05-10 Amount given:2.5MLRoute: INTRA ARTICULAR Site given:bilateral knees Given by: Dr. Pizano B 12 Injection, 1000 mcg On: 10-Sep-2008 Intent (J3420)By: COMFORT Gallegos B 12 Injection, 1000 mcg On: 29-Jul-2008 Intent (J3420)By: Denise Collazo Comments: Amt: 1mlLot: [id number]: 02/10Route: IMSite: right deltTolerated: wellGiven By: SCAR Sood Pulse Oximetry (47491)By: Quentin On: 29-Jul-2008 Intent MIXING HOUSE OPERATOR, Adeola Aerosol Treatment (85190)By: On: 29-Jul-2008 Intent Ciesa MIXING HOUSE OPERATOR, Adeola Aerosol Treatment (82417)By: On: 16-Jul-2008 Intent Sofia Younger DO Comments: done-awnoise resolved and much more air exchange Pulse Oximetry (11557)By: Carisa On: 16-Jul-2008 Sofia Davis DO Comments: 93% Solu- Medrol Injection, 125mg On: 16-Jul-2008 Intent (J2930)By: Sofia Younger DO Comments: Lot #[id number]-6/11Site-right viaRiwt9mu/125mggiven by Debbie Lei LPN B 12 Injection, 1000 mcg On: 30-Apr-2008 Intent (J3420)By: Prema Lei Comments: Lot #[id number]-5/10Site-right valuqqbLlyd0zcjkkdm by Debbie Lei LPN DXA, BONE DENSITY, AXIAL On: 30-Apr-2008 Intent SKELETON (93750)By: Dima DURAN, Comments: estrogen def Adalid Pizano MD, Adalid Rebollar MAMMOGRAM, SCREENING, BOTH On: 30-Apr-2008 Intent BREASTS (44244)By: Dima DURAN, Adalid Ghosh MD B 12 Injection, 1000 mcg On: 27-Mar-2008 Intent (J3420)By: Tonia Garcia Comments: Lot #:[id number] date:mount given:.1mlRoute: IMSite given:left deltoidGiven by: EDEN Salcido Pulse Oximetry (52373)By: On: 27-Mar-2008 Intent Tonia Garcia Comments: 96% Pulse Oximetry (57032)By: On: 14-Mar-2008 Intent COMFORT Gallegos B 12 Injection, 1000 mcg On: 06-Feb-2008 Intent (J3420)By: Pamella Saavedra CNP Comments: Lot #:[id number] date: Amount given:1ml Route: IMSite given:left deltoid Given by: billy Solu -Medrol Injection, 125 mg On: 06-Feb-2008 Intent (J2930)By: Pamella Saavedra CNP Comments: Lot #:[id number] date:mount given:125mgRoute: IMSite given:left gluteal Given by: aretha Pulse Oximetry (01414)By: Quentin On: 06-Feb-2008 Intent Pamella ARGUETA Aerosol Treatment (24721)By: On: 06-Feb-2008 Intent Pamella Saavedra CNP B 12 Injection, 1000 mcg On: 21-Dec-2007 Intent (J3420)By: Ledy Nogueira Comments: given in right deltoid, lot#[id number], exp.3.10 >Wf. B 12 Injection, 1000 mcg On: 03-Oct-2007 Intent (J3420)By: Pamella Saavedra CNP Pulse Oximetry (95012)By: Quentin On: 03-Oct-2007 Intent Pamella ARGUETA Aerosol Treatment (87109)By: On: 03-Oct-2007 Intent Pamella Saavedra CNP Pulse Oximetry (29186)By: Lenny On: 16-Aug-2007 Intent Cira Aerosol Treatment (37642)By: On: 16-Aug-2007 Intent Sofia Younger DO Comments: no wheeze and better air exchange Solu- Medrol Injection, 125mg On: 16-Aug-2007 Intent (J2930)By: Sofia Younger DO Comments: given in left buttocks.lot # [id number]\Exp 02/2010 SPECIMEN HNDLNG/TRNSPRT, OFFC > On: 16-Aug-2007 Intent LAB (47705)By: Sofia Younger DO B 12 Injection, 1000 mcg On: 01-Aug-2007 Intent (J3420)By: Prema Lei Comments: Lot #[id number]-05/12Site-left nzsatdbTpiv9pyxqmxz by Debbie Lei [facility] CT - ChestBy: Adalid Pizano MD On: 01-Aug-2007 Intent Adalid Pizano MD FLU VAC, SPLIT, >3 YEARS, On: 18-Apr-2007 Intent INTRAMUSC (12201)By: Adalid Pizano MD, MD, Dana M IMMUNIZ ADMNIN, 1 VAC, On: 18-Apr-2007 Intent SNGL/COMBO (67867)By: Adalid Pizano MD, MD, Dana M B [...] HNDLNG/TRNSPRT, OFFC > On: 10-Oct-2006 Intent LAB (36456)By: Adalid Pizano MD, MD, Dana M Solu -Medrol Injection, 125 mg On: 16-Sep-2006 Intent (J2930)By: Adalid Pizano MD Comments: lot # [id number] exp 04-[address] gluteal by Adalid Chacon lpn, MD Pulse Oximetry (06732)By: On: 16-Sep-2006 Intent Adalid Pizano MD, MD, Dana M Aerosol Treatment (77569)By: On: 16-Sep-2006 Intent Adalid Pizano MD, MD, Dana M Pulse Oximetry (57723)By: On: 04-Aug-2006 Intent Dima DURAN, Adalid Ghosh MD EKG (91218)By: Adalid Pizano MD On: 08-Jul-2006 Intent Adalid Morfin MD IMMUNIZ ADMNIN, 1 VAC, On: 06-May-2006 Intent SNGL/COMBO (43329)By: Ramiro ABBOTT, Peg FLU VAC, SPLIT, >3 YEARS, On: 06-May-2006 Intent INTRAMUSC (68460)By: Ramiro ABBOTT, Comments: Lot #:Expiration date:Amount given:Route: imSite given:r armGiven by: galina golden lpn Peg Echo CompleteBy: Dima DURAN, On: 19-Apr-2006 Intent [address] MD CT - Abdomen & PelvisBy: Dima On: 19-Apr-2006 Adalid Davis MD, MD, Dana M Comments: ?obstruction, pancreatitis, attention kidney cyst send to [facility] gastrologist [facility] Planned Medications INJECTION, METHYLPREDNISOLONE SODIUM SUCCINATE, UP [...] Advance Directives Name Dates Details Immunization Registry [place] - Effective on Effective: 29-Apr-201704/29/2017. Expiration date [...] Nutrition: balanced diet and supplemental vitamins. The mi dical issues the patient is following up [...] (579.8), Hyponatremia (276.1), Asthma (493.11), Fibromyalgia (729.1), [facility] V73.21 [place] (Renamed from [facility]), Obesity,unspecified (278.00), GERD (530.81), DEFICIENCY, VITAMIN D [...] ANEMIA DUE TO DIETARY IRON DEFICIENCY (280.1), [facility] V73.21 [place] (Renamed from [facility]) [facility] Office Visit On: [...] docs for this Dr Jacob rabago at [facility]-- -- feels similiar to [...] months. Note for Fever: pt had epidural [id number] Diagnosis: Dehydration(276.51), Abdominal Pain,Generalized (789.07), FEVER (780.6) [...] care visit: swelling better with aldactone, reviewed nursing consultant's letter use compression, work up from [...] weekend , bite by flies, camp in [facility], no fever abd pain still hit [...] Epigastric pain (789.06), SVC thrombosis, Fibromyalgia (729.1), [facility] Office Visit On: 21-Nov-2006 [...] chemistry (790.6) [facility] J zaman guarantor
--- OUTSIDE RECORDS SUMMARY | 2018-08-02 06:32 | XMS RPT_ITS | Continuity of Care Document ---
:1955 Author Organization [facility] Address [address] [place] [address] Phone Care Team Providers Name Role Phone [...] cervical.doing every 6 months. ariel leaving to [place]. reconmmend Dr. romero and i talk to [...] really expensive can use an equivalent Creon 79986 UNIT Oral Capsule Delayed Release Particles 2 (two) Capsule DR Part tid romel meals for 0 days Quantity: 540 {Capsule} Refills: 3 Ordered:09-May-2017 Sarah Pizano MD, MD, Dana M Start : 09-May-2017 Active Cymbalta 60 MG Oral Capsule Delayed Release Particles [address] Part QHS / HS for 0 days Quantity: 90 {Capsule} Refills: 3 Ordered:31-May-2018 Sarah Pizano MD, MD, Dana M Start : 31-May-2018 Active DURAGESIC-50, 50MCG/HR (Transdermal Patch 72 Hour) 1 patch Patch 72HR every 3 days for 0 days Quantity: 10 {Patch_72HR} Refills: 0 Ordered:01-Jul-2009 COMFORT Gallegos Start : 01-Jul-2009 Active Montelukast Sodium 10 MG Oral Tablet 1 Tablet qd for 0 days Quantity: 90 {Tablet} Refills: 3 Ordered:30-Nov-2016 Sarah Pizano MD, MD, Dana M Start : 30-Nov-2016 Active East Point 5-325 MG Oral Tablet 1 (one) Tablet [...] Start : 14-Apr-2018 Active Vitamin D (Ergocalciferol) 54398 UNIT Oral Capsule 1 (one) capsule twice weekly for 0 days Quantity: 24 {Capsule} Refills: 3 Ordered:08-Mar-2018 Dima DURAN, Sarah Sloan MD, Sarah Rebollar Start : 08-Mar-2018 Active Warfarin Sodium 4 MG Oral Tablet 1 Tablet qd as directed for 0 days Quantity: 90 {Tablet} Refills: 3 Ordered:04-Jun-2016 Dima DURAN, Sarah Hernandez MD Start : 04-Jun-2016 Active Comments:Dr. Lucas Zolpidem Tartrate 10 MG Oral Tablet 1 Tablet at night prn for 0 days Quantity: 90 {Tablet} Refills: 1 Ordered:06-Feb-2018 Dima DURAN, Sarah Sloan MD, Sarah Rebollar Start : 06-Feb-2018 Active Comments:[id number] called to [facility] ADVAIR DISKUS, 100-50MCG/DOSE [...] End : 24-Aug-2012 Inactive CALCIUM 500/VITAMIN D, [id number] (Oral Tablet) 1 (one) Tablet daily for [...] : 09-Mar-2016 End : 04-Jun-2016 Inactive Drisdol 84480 UNIT Oral Capsule 1 Capsule two times a week for 0 days Quantity: 24 {Capsule} Refills: 3 Ordered:13-Jan-2017 Sarah Pizano MD, MD, Dana M Start : 23-Jul-2016 End : 13-Jan-2017 Inactive Estropipate 0.75 MG Oral Tablet 1 Tablet daily for 0 days Quantity: 90 {Tablet} Refills: 3 Ordered:01-Jun-2018 Sarah Pizano MD, MD, Dana M Start : 09-May-2017 End : 01-Jun-2018 Inactive Comments:ninety GLUCOSAMINE CHONDR 500 COMPLEX (Oral Capsule) for [...] : 21-Dec-2007 End : 14-Mar-2008 Inactive Nystatin 898382 UNIT/GM External Powder 1 Powder bid for [...] cervical.doing every 6 months. george leaving to [place]. reconmmend Dr. romero and i talk to [...] (R06.2, 786.07) Status: Inactive as of 04-Jun-2016 [employer] V73.21 TAHBSO (Renamed from [employer]-TAHBSO) Comments: due for mammo. colonscopy 01-11 Status: Inactive as of 25-Mar-2014 Yeast infection (B37.9, 112.9) Status: Resolved as of 04-Apr-2017 yeast infection 09-Aug-2011 Comments: under breastpowder keeps away Status: Inactive as of 09-Aug-2011 Yeast infection of the vagina (B37.3, 112.1) Status: Resolved as of 04-Apr-2017 Procedures Procedure Dates Details ZOSTER VACC, [place] (88971) Date: 01-Oct-2016 Cancelled Cholecystectomy Completed GASTRIC BYPASS, OPEN (52112) Completed Comments: 1997, Dr. lindsay did for recurrent pancreatitis, this is what helped her. Hysterectomy; Abdominal Completed JEJUNOSTOMY (88120) Completed Comments: 1995 closed 1997 when had gastric bypass, because of pancreatitis and was tube feed for 2 years Date Value Details 21-Mar-2018 Dexa Bone Density Study Result: Comments: See Note; NOTES: [facility] Imaging Services [address] [place] [address] Dexa Bone Density Study MR#: [id number] Acct: [id number] Name: JOSE J COBIAN Rep #: [id number] : 1955 F 63 From: Bartolome Patel MD PCP: Sarah Pizano MD Status: REG CLI Study: Dexa Bone Density Study Date of Exam: 03/21/18 Exam# [id number] Ordering Dr: Sarah Pizano MD STUDY: D [...] Bartolome Patel MD at 15:07 EDT Tel [phone], Service support , CC: Sarah Pizano MD Cullet Crusher: Signed 21-Mar-2018 SCREENING MAMM (CAD), BILAT Result: Comments: See Note; NOTES: [facility] Imaging Services [address] [place] [address] SCREENING MAMM (CAD), BILAT MR#: [id number] Acct: [id number] Name: JOSE J COBIAN Rep #: [id number] : 1955 F 63 From: Bartolome Patel MD PCP: Sarah Pizano MD Status: REG CLI Study: SCREENING MAMM (CAD), BILAT Date of Exam: 03/21/18 Exam# [id number] Ordering Dr: Sarah Pizano MD MAMMOGRAPHY - [...] biopsy of a clinically suspicious abno rmality. [id number] Electronically Signed: Bartolome Patel MD at 13:21 EDT Tel [phone], Service support , CC: Sarah Pizano MD Cullet Crusher: Signed 07-Nov-2017 Operative Report Result: Comments: See Note; NOTES: [facility] Medical Records Department [address] [place] [address] Operative Report 11/07/17 1027 MR#: [id number] Acct: [id number] Name: JOSE J COBIAN Rep #: [id number] : 1955 62 From: Bubba Romero MD PCP: Sarah Pizano MD Status: REG SD Y Location: [place] [address] Problem List (1) Disc disease, degenerative, lumbar [...] 4 Views Result: Comments: See Note; NOTES: [facility] Imaging Services [address] [place] [address] L/S Spine Min 4 Views MR#: [id number] Acct: [id number] Name: JOSE J COBIAN Rep #: [id number] : 1955 F 62 From: Bartolome Patel MD PCP: Sarah Pizano MD Status: [facility] Study: L/S Spine Min 4 Views Date of Exam: 11/07/17 Exam# [id number] Ordering Dr: Bubba Romero MD PROCEDURE : [...] Bartolome Patel MD at 11:01 EDT Tel [phone], Service support , CC: Sarah Pizano MD; Bubba Romero Cullet Crusher: Signed 04-Oct-2017 Cardiology Visit Report Result: Comments: See Note; NOTES: [facility] [address] [place] [address] OFFICE VISIT Date of Service: 10/03/17 MR#: [id number] Acct: [id number] Name: JOSE J COBIAN Rep #: [id number] : 1955 Provider: Chanel Shaw Age/Sex: 62/F Location: [facility] Status: Signed HPI HPI Details: JOSE J [...] Intake Visit Reasons: NOT SEEN SINCE 05/2016 Travel Pt Required: No Accompanied by: Is patient in [...] mg PO DAILY@0800 10/20/15 [History Confirmed 10/03/17] [place] codone Bitart/Apap 5-325 [East Point 5/325] 1 tab PO Q4H PRN PRN [...] infarction beginning age 61's, has had several [place]'s CAD (co ronary artery disease) history of [...] Operative Report Result: Comments: See Note; NOTES: [facility] Medical Records Department [address] [place] [address] Operative Report 09/05/17 0944 MR#: [id number] Acct: [id number] Name: JOSE J COBIAN Rep #: [id number] : 1955 62 From: Bubba Romero MD PCP: Sarah Pizano MD Status: REG WIC Y Location: [place] [address] Problem List (1) Lumbosacral spondylosis Status: Chronic [...] 4 Views Result: Comments: See Note; NOTES: [facility] Imaging Services [address] [place] [address] L/S Spine Min 4 Views MR#: [id number] Acct: [id number] Name: JOSE J COBIAN Rep #: [id number] : 1955 F 62 From: Bartolome Patel MD PCP: Sarah Pizano MD Status: [facility] Study: L/S Spine Min 4 Views Date of Exam: 09/05/17 Exam# [id number] Ordering Dr: Bubba Romero MD PROCEDURE : [...] Bartolome Patel MD at 9:02 EST Tel [phone], Service support , CC: Sarah Pizano MD; Bubba Romero Cullet Crusher: Signed 08-Aug-2017 Operative Report Result: Comments: See Note; NOTES: [facility] Medical Records Department [address] [place] [address] Operative Report 08/08/17 1408 MR#: [id number] Acct: [id number] Name: JOSE J COBIAN Rep #: [id number] : 1955 62 From: Bubba Romero MD PCP: Sarah Pizano MD Status: [facility] Y Location: [facility] [...] 3 Views Result: Comments: See Note; NOTES: [facility] Imaging Services [address] [place] [address] Lumbar Spine 2 or 3 Views MR#: [id number] Acct: [id number] Name: JOSE J COBIAN Rep #: [id number] : 1955 F 62 From: Bartolome Patel MD PCP: Sarah Pizano MD Status: [facility] Study: Lumbar Spine 2 or 3 Views Date of Exam: 08/08/17 Exam# [id number] Ordering Dr: Bubba Romero MD P ROCEDURE: [...] Bartolome Patel MD at 11:32 EST Tel [phone], Service support , CC: Sarah Pizano MD; Bubba Romero Cullet Crusher: Signed 09-May-2017 Operative Report Result: Comments: See Note; NOTES: [facility] Medical Records Department [address] [place] [address] Operative Report 05/09/17 1348 MR#: [id number] Acct: [id number] Name: VIRAJ COBIANDilshad Walker Rep #: [id number] : 1955 62 From: Bubba Romero MD PCP: Sarah Pizano MD Status: REG SDC Y Location: [facility] Report of Operation Date of Procedure: 05/09/17 [...] Spine Inj Result: Comments: See Note; NOTES: [facility] Imaging Services [address] [place] [address] Fluor Guidance for Spine Inj MR#: [id number] Acct: [id number] Name: JOSE J COBIAN Rep #: [id number] : 1955 F 62 From: Bartolome Patel MD PCP: Sarah Pizano MD Status: [facility] Study: Fluor Guidance for Spine Inj Date of Exam: 05/09/17 Exam# [id number] Ordering Dr: Bubba Romero MD PROCEDURE: Caudal [...] Bartolome Patel MD at 14:03 EST Tel [phone], Service support , CC: Sarah leigh MD; Bubba Romero Cullet Crusher: Signed 29-Apr-2017 L/S Spine Min 4 Views Result: Comments: See Note; NOTES: [facility] Imaging Services [address] [place] [address] L/S Spine Min 4 Views MR#: [id number] Acct: [id number] Name: JOSE J COBIAN Rep #: [id number] : 1955 F 62 From: Feliberto Sim MD PCP: Sarah Pizano MD Status: REG CLI Study: L/S Spine Min 4 Views Date of Exam: 04/29/17 Exam# [id number] Ordering Dr: Lizeth Sanches STUDY: X-RAY - [...] , CC: Lizeth Sanches; Sarah Pizano MD Cullet Crusher: Signed 21-Mar-2017 Operative Report Result: Comments: See Note; NOTES: [facility] Medical Records Department [address] [place] [address] Operative Report 03/21/17 0841 MR#: [id number] Acct: [id number] Name: JOSE J COBIAN Rep #: [id number] : 1955 62 From: Bubba Romero MD PCP: Sarah Pizano MD Status: [facility] Y Location: [facility] [...] 5 Views Result: Comments: See Note; NOTES: [facility] Imaging Services [address] [place] [address] Cerv Spine 4 or 5 Views MR#: [id number] Acct: [id number] Name: JOSE J COBIAN Rep #: [id number] : 1955 F 62 From: Daniel Manzano DO PCP: Sarah Pizano MD Status: [facility] Study: Cerv Spine 4 or 5 Views Date of Exam: 03/21/17 Exam# [id number] Ordering Dr: Bubba Romero MD STUDY: X-RAY - CERVICAL SPINE REASON FOR EXAM: Female, 62 years old. Cervical block TECHNIQUE: 4 view(s) of the cervical spine were obtained. COMPARISON: None FINDINGS: Face t block was performed with 4 spot fluoroscopy images obtained. Total fluoroscopy time 14.7 seconds. Please see performing physician's report for further details ORD ER #: [id number] RAD/Cerv Spine 4 or 5 Views IMPRESSION: As above Electronically Signed: Daniel Manzano DO at 16:12 EDT Tel , Service support , CC: Sarah Pizano MD; Bubba Romero Cullet Crusher: Signed 17-Jan-2017 Operative Report Result: Comments: See Note; NOTES: [facility] Medical Records Department [address] [place] [address] Operative Report 01/17/17 1246 MR#: [id number] Acct: [id number] Name: JOSE J COBIAN Rep #: [id number] : 1955 61 From: Bubba Romero MD [...] 5 Views Result: Comments: See Note; NOTES: [facility] Imaging Services [address] [place] [address] Verdana 4d Cerv Spine 4 or 5 Views MR#: [id number] Acct: [id number] Name: JOSE J COBIAN #: [id number] : 1955 F 61 From: Tonia Galvan MD PCP: Sarah Pizano MD Status: [facility] Study: Cerv Spine 4 or 5 Views Date of Exam: 01/17/17 Exam# [id number] Ordering Dr: Bubba Romero MD STUDY: X-RAY [...] Tonia Galvan MD at 16:36 EDT Tel [phone], Service support , CC: Sarah Pizano MD; Bubba Romero Cullet Crusher: Signed 09-Oct-2016 Abdomen/Pelvis WITH Contrast Result: Comments: See Note; NOTES: [facility] Imaging Services [address] [place] [address] Shiradaolvin 4d Abdomen/Pelvis WITH Contrast MR#: [id number] Acct: [id number] Name: VIRAJ COBIAN Rep #: [id number] : 1955 F 61 From: Enrike Peres PCP: Sarah Pizano MD Status: REG CLI Study: Abdomen/Pelvis WITH Contrast Date of Exam: 10/09/16 Exam# [id number] Ordering Dr: Sarah Pizano MD STUDY: CT [...] at 9:47 EDT Tel , Service support [phone], CC: Sarah Pizano MD Cullet Crusher: Signed 23-Aug-2016 Operative Report Result: Comments: See Note; NOTES: [facility] Medical Records Department [address] [place] [address] Operative Report MR#: [id number] Acct: [id number] Name: JOSE J COBIAN Rep #: [id number] : 1955 61 From: Bubba Romero MD PCP: Sarah Pizano MD Status: [facility] DATE OF SERVICE: 08/09/2016 DATE [...] indicated. Bubba Romero MD T: NTS JOB: [id number] 08/23/16 1357 <Electronica lly signed by Bubba Romero MD> Date Bubba Romero MD Cosign Signature (If Indicated): Date ____ CC: Sarah Pizano MD; Bubba Romero Date Dictated: 08/09/161310 Date Transcribed: 08/09/161310 Cullet Crusher: Signed 09-Aug-2016 Thoracic Spine 3 Views Result: Comments: See Note; NOTES: [facility] Imaging Services [address] [place] [address] Verdana 4d Thoracic Spine 3 Views MR#: [id number] Acct: [id number] Name: JOSE J COBIAN p #: [id number] : 1955 F 61 From: Azalia Fernandes MD PCP: Sarah Pizano MD Status: [facility] Study: Thoracic Spine 3 Views Date of Exam: 08/09/16 Exam# [id number] Ordering Dr: Bubba Romero MD JERO DY: [...] at 1 2:18 EST , Service support [phone], CC: Sarah Pizano MD; Bubba Romero Cullet Crusher: Signed 01-Jun-2016 PT D/C of Non Returning Pt (1) Result: Comments: See Note; NOTES: [facility] [address] [place] [address] Fax REHABILITATION SERVICES DISCHAR GE SUMMARY MR#: [id number] Acct: [id number] Name: JOSE J COBIAN Rep #: [id number] Mac Aquino, PT, <Electronically signed b y Cert. ROGER Dickerson PTT, OCS> 06/01/16 09 CC: Sarah Pizano MD; Bubba Romero VIRGILIO Signed -Apr-2016 Operative Report Result: Comments: See Note; NOTES: [facility] Medical Records Department [address] [place] [address] Operative Report MR#: [id number] Acct: [id number] Name: JOSE J COBIAN Rep #: [id number] : 1955 61 From: Bubba Romero MD PCP: Sarah Pizano MD Status: [facility] DATE OF SERVICE: 03/22/2016 DATE [...] indicated. Bubba Romero MD T: NTS JOB: [id number] 04/05/16 1351 <E lectronically signed by Bubba Romero MD> Date Bubba Romero MD Cosigner Signature (If Indicated): Date CC: Sarah Pizano MD; Bubba Romero Date Dictated: 03/22/161415 Date Transcribed: 03/22/161415 Cullet Crusher: Signed 01-Apr-2016 Echocardiogram Complete Result: Comments: See Note; NOTES: [facility] Cardiovascular Services [address] [place] [address] Echo Complete 04/01/16 1256 MR#: [id number] Acct: [id number] Name: JOSE J COBIAN Rep #: [id number] : 1955 61 From: Antonino Lucas MD Attending Dr: Antonino Lucas MD Status: REG CLI Ordering Dr: Antonino Lucas MD Date: 04/01/16 Location: [facility] Sex: F C Admitted: Reason For [...] Physician: Sarah Pizano Performed By: Cherelle Apple, RDCS, RVT 04/01/16 1515 Date ____ Antonino Lucas MD CC: Sarah Pizano MD; Antonino Lucas MD Date Dictated: 04/01/16 1256 Date Transcribed: 04/01/16 1515 Cullet Crusher: Signed 22-Mar-2016 Breast Limited Unilateral Result: Comments: See Note; NOTES: [facility] Imaging Services [address] [place] [address] Verdana 4d Breast Limited Unilateral MR#: [id number] Acct: [id number] Name: JOSE J COBIAN Rep #: [id number] : 1955 F 61 From: Bartolome Patel MD PCP: Sarah Pizano MD Status: REG CLI Study: Breast Limited Unilateral Date of Exam: 03/22/16 Exam# [id number] Ordering Dr: Zack Pizano MD STUDY: ULTRASOUND [...] Bartolome Patel MD at 12:35 EDT Tel [phone], Service support [phone], CC: Sarah Pizano MD Cullet Crusher: Signed 19-Mar-2016 Thoracic Spine 3 Views Result: Comments: See Note; NOTES: [facility] Imaging Services [address] [place] [address] Verdana 4d Thoracic Spine 3 Views MR#: [id number] Acct: [id number] Name: JOSE J COBIAN #: [id number] : 1955 F 61 From: Bartolome Patel MD PCP: Sarah Pizano MD Status: REG [facility] Study: Thoracic Spine 3 Views Date of Exam: 03/22/16 Exam# [id number] Ordering Dr: Bubba Romero MD STUDY: X-RAY [...] Bartolome Patel MD at 14:10 EDT Tel [phone], Service support [phone], CC: Sarah vasquez MD; Bubba Romero Cullet Crusher: Signed 19-Mar-2016 Inital Evaluation (1) - PT Result: Comments: See Note; NOTES: [facility] [address] [place] [address] Fax REHABILITATION SERVICES HERI Springer EVALUATION MR#: [id number] Acct: [id number] Name: JOSE J COBIAN Rep #: [id number] : 1955 61 From: Mac Smith Referring Dr.: Bubba Romero Status: REG RCR Insurance: [place] [employer] ARE MEDICARE Patient's [...] Shoulder strength on MMT: Right: 5. Left: -5 - Goals Goal 1:: Patient will demonstrate [...] to be FAXED BACK to us at [phone] for Medicare purposes. Please let me know [...] AND CAD Result: Comments: See Note; NOTES: [facility] Imaging Services [address] [address] Verdana 4d Bilat Scrn Digital AND CAD MR#: [id number] Acct: [id number] Name: JOSE J COBIAN Rep #: [id number] : 1955 F 61 From: Bartolome Patel MD PCP: Sarah Pizano MD Status: REG CLI Study: Bilat Scrn Digital AND CAD Date of Exam: 03/16/16 Exam# [id number] Ordering Dr: Sarah Pizano MD MAMMOGRAPHY - [...] delay biopsy of a clinically suspicious abnormality. [id number] Electronically Signed: Bartolome Patel MD at 15:06 EDT Tel [phone], Service supp ort [phone], CC: Sarah Pizano MD Cullet Crusher: Signed 16-Mar-2016 Dexa Bone Density Study (HP) Result: Comments: See Note; NOTES: [facility] Imaging Services [address] [place] [address] Verdana 4d Dexa Bone Density Study (HP) MR#: [id number] Acct: [id number] Name: MAURI COBIAN Rep #: [id number] : 1955 F 61 From: Bartolome Patel MD PCP: Sarah Pizano MD Status: REG CLI Study: Dexa Bone Density Study (HP) Date of Exam: 03/16/16 Exam# [id number] Ordering Dr: Sarah Deng MD STUDY: DUAL [...] Bartolome Patel MD at 14:15 EDT Tel [phone], Service support [phone], CC: Sarah Pizano MD Cullet Crusher: Signed 22-Feb-2016 History and Physical Exam Result: Comments: See Note; NOTES: [facility] Medical Records Department [address] [place] [address] History and Physical 02/22/162054 MR#: [id number] Acct: [id number] Name: JOSE J COBIAN Rep #: [id number] : 1955 60 From: An Dent DO [...] was seen in the emergency room at [facility] with a chief complaint of precordial [...] - Mediport placement Psychiatric Hist ory: Anxiety 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 Lives: Spouse/ Significant Other Smoking [...] 44.6 L Lymph % (Auto) 46.1 H [place] % (Auto) 6.9 Eos % (Auto) 2.0 [...] (if applicable): Date CC: Sarah Pizano MD; nA Dent DO Signed 22-Feb-2016 Chest 1 View (Portable) Result: Comments: See Note; NOTES: [facility] Imaging Services [address] [place] [address] Verdana 4d Chest 1 View (Portable) MR#: [id number] Acct: [id number] Name: JOSE J COBIAN Rep #: [id number] : 1955 F 60 From: Kim Dsouza MD PCP: Sarah Pizano MD Status: REG ER Study: Chest 1 View (Portable) Date of Exam: 02/22/16 Exam# [id number] Ordering Dr: Mac Chi MD STUDY: X-RAY [...] Signed: Kim Dsouza MD at 19:35 EDT cf, Service support [phone], CC: Sarah Pizano MD; Mac Chi MD Cullet Crusher: Signed 16-Feb-2016 Thoracic Spine 3 Views Result: Comments: See Note; NOTES: [facility] Imaging Services [address] [place] [address] Verdana 4d Thoracic Spine 3 Views MR#: [id number] Acct: [id number] Name: JOSE J COBIAN Yamilka #: [id number] : 1955 F 60 From: Kirk Wall MD PCP: Sarah Pizano MD Status: REG CLI Study: Thoracic Spine 3 Views Date of Exam: 02/16/16 Exam# [id number] Ordering Dr: Sarah Pizano MD ST UDY: [...] at 21:50 EDT , S titi support [phone], CC: Sarah Pizano MD Cullet Crusher: Signed 03-Nov-2015 Operative Report Result: Comments: See Note; NOTES: [facility] Medical Records Department [address] [place] [address] Operative Report MR#: [id number] Acct: [id number] Name: JOSE J COBIAN Rep #: [id number] : 1955 60 From: Bubba Romero MD PCP: Sarah Pizano MD Status: [facility] DATE OF SERVICE: 10/20/2015 DATE [...] repeat of the procedure if indicated. Lidia Romreo MD T: NTS JOB: [id number] 11/03/15 9147 <Electronically signed by Bubba Romero MD> Date Bubba Romero MD Co signer Signature (If Indicated): Date CC: Sarah Pizano MD; Bubba Romero Date Dictated: 10/20/15 1351 Date Transcribed: 10/20/151350 Cullet Crusher: Signed 20-Oct-2015 Cerv Spine 2 or 3 Views Result: Comments: See Note; NOTES: [facility] Imaging Services [address] [place] [address] Verdana 4d Cerv Spine 2 or 3 Views MR#: [id number] Acct: [id number] Name: JOSE J NOWAK Rep #: [id number] : 1955 F 60 From: Bartolome Patel MD PCP: Sarah Pizano MD Status: [facility] Study: Cerv Spine 2 or 3 Views Date of Exam: 10/20/15 Exam# [id number] Ordering Dr: Bubba Romero MD STUDY: X-RAY [...] Bartolome Patel MD at 13:45 EDT Tel [phone], Service support [phone], RAD/Cerv Spine 2 or 3 Views IMPRESSION: Fluoroscopic services provided for right 4 through C7 facet block. Electronically Signed: Bartolome Patel MD at 13:45 EDT Tel [phone], Service support [phone], CC: Sarah Pizano MD; Bubba Romero Cullet Crusher: Signed 18-Aug-2015 Operative Report Result: Comments: See Note; NOTES: [facility] Medical Records Department [address] [place] [address] Operative Report MR#: [id number] Acct: [id number] Name: JOSE J COBIAN Rep #: [id number] : 1955 60 From: Bubba Romero MD PCP: Sarah Pizano MD Status: [facility] DATE OF SERVICE: 08/04/2015 DATE OF SERVICE: [...] if indicate d. Bubba Romero MD T: [facility] JOB: [id number] 08/18/15 0927 <Electronically signed by Bubba Romero MD> Date Bubba copeland MD Cosigner Signature (If Indicated): Date CC: Sarah Pizano MD; Bubba Romero Date Dictated: 08/04/15 143 Date Transcribed: 08/04/151432 Cullet Crusher: Signed 04-Aug-2015 Cerv Spine 2 or 3 Views Result: Comments: See Note; NOTES: [facility] Imaging Services [address] [place] [address] Verdana 4d Cerv Spine 2 or 3 Views MR#: [id number] Acct: [id number] Name: JOSE J NOWAK Denise Rep #: [id number] : 1955 F 60 From: Kirk Wall MD PCP: Sarah Pizano MD Status: [facility] Study: Cerv Spine 2 or 3 Views Date of Exam: 08/04/15 Exam# [id number] Ordering Dr: Osiel Romero MD STUDY: X-RAY [...] MD at 16:28 EST , Service support [phone], RAD/Cerv Spine 2 or 3 Views IMPRESSION: Needle positions as above. Electronically Signed: Kirk Wall MD at 16:28 EST , Service support [phone], CC: Sarah Pizano MD; Bubba Romero Cullet Crusher: Signed 02-Jul-2015 Hip min 2 Views Result: Comments: See Note; NOTES: [facility] Imaging Services [address] [place] [address] Verdana 4d Hip min 2 Views MR#: [id number] Acct: [id number] Name: VIRAJ COBIAN Rep #: [id number] : 1955 F 60 From: Tuan Boyd MD PCP: Sarah Pizano MD Status: REG CLI Study: Hip min 2 Views Date of Exam: 07/02/15 Exam# [id number] Ordering Dr: Sarah Pizano MD S TUDY: [...] at 12:42 EST Tel , Service support [phone], Fax RAD/Hip min 2 Views IMPRESSION: Normal x-ray examination of the hip. Electronically Signed: Lucius Boyd MD at 12:42 EST Tel , Linnea elizabeth support [phone], CC: Sarah Pizano MD Cullet Crusher: Signed 24-Jun-2015 Pelvis 1 or 2 Views Result: Comments: See Note; NOTES: [facility] Imaging Services [address] [place] [address] Verdana 4d Pelvis 1 or 2 Views MR#: [id number] Acct: [id number] Name: JOSE J COBIAN Rep #: [id number] : 1955 F 60 From: Prosper Dumont MD PCP: Sarah Pizano MD Status: REG CLI Study: Pelvis 1 or 2 Views Date of Exam: 06/24/15 Exam# [id number] Ordering Dr: Tuan Pizano MD STUDY: X-RAY [...] at 11:20 EST Tel , Service support [phone], RAD/Pelvis 1 or 2 Views IMPRESS ION: There is narrowing with cortical sclerosis and osteophyte formation of the sacroiliac joint consistent with degenerative osteoarthritic changes. Electronically Signed: Lavell Dumont MD 08/26 at 11:20 EST Tel , Service support [phone], CC: Sarah Pizano MD Cullet Crusher: Signed 07-Feb-2015 Chest PA and Lateral Result: Comments: See Note; NOTES: [facility] Imaging Services [address] [place] [address] Radiology Report MR#: [id number] Acct: [id number] Name: JOSE J COBIAN Rep #: [id number] : 1955 F 59 From: Baldemar Torres DO PCP: Sarah Pizano MD Status: REG CLI Study: Chest PA and Lateral Date of Exam: 02/07/15 Exam# [id number] Ordering Dr: Pamella Saavedra STUDY: X-RAY CHES [...] Baldemar Torres DO at 19:14 EDT Tel [phone], Service support , RAD/Chest PA and Lateral IMPRESSION: No acute cardiopulmonary disease or interval change. Electronically Signed: Baldemar VogtonDO at 19: 14 EDT Tel [phone], Service support [phone], CC: Pamella Saavedra; Sarah Pizano MD Cullet Crusher: Signed 05-Feb-2014 Katie Santillann Digital & CAD Result: Comments: See Note; NOTES: [facility] Imaging Services [address] [place] [address] Breast Imaging Report MR#: [id number] Acct: [id number] Name: JOSE J COBIAN Rep #: [id number] : 1955 F 58 From: Bartolome Patel MD PCP: Sarah Pizano MD Status: REG CLI Exam# [id number] Ordering Dr: Sarah Pizano MD MAMMOGRAPHY - [...] Bartolome Patel MD at 13:16 EDT Tel [phone], Service support [phone], CC: Sarah Pizano MD Cullet Crusher: Signed 06-Jun-2013 Abdomen/Pelvis with Contrast Result: Comments: See Note; NOTES: [facility] Imaging Services [address] [place] [address] CAT Scan Report MR#: [id number] Acct: [id number] Name: JOSE J COBIAN Rep #: [id number] : 1955 F 58 From: Tuan Atkins MD PCP: Sarah Pizano MD Status: REG CLI Study: Abdomen/Pelvis with Contrast Date of Exam: 06/06/13 Exam# [id number] Ordering Dr: Sarah Pizano MD STUD Y: [...] M.D. at 0:12 EST , Service support [phone], CC: Sarah Pizano MD Cullet Crusher: Signed Immunization Name Dates Details Influenza (3 [...] lipomas Status: Active Daughter 1 Comments: oldest. mitchell Status: Active Father Comments: pancreatic cancer at [...] Living Situation Comments: Lives with spouse. 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 [place], [address] PREMA 73 U/L (Normal) Range: 25-115 00-Voh-566285:27 CBC-Complete Blood Cnt No Diff Comments: [facility] [address] [place], [id number] MPV 9.3 fL (Normal) Range: 6.2-12.0 PLT [...] 4.2-5.4 WBC 5.3 K/mm3 (Normal) Range: 4.4-11.0 07-Hoh-970388:27 Comprehensive Metabolic Profil Comments: [facility] [address] [place], [address] GAP 4 (Abnormal) Range: 5-15 CO2 29.0 [...] A.D.A. criteria.Please note revised GLUCOSE reference range axeeigncy51/02/2018. 79-Yci-582985:27 Lipase Comments: [facility] Hthfon[address]obx[address] [facility] [place], [address] LIPASE 314 U/L (Normal) Range: 73-393 81-Eqd-918373:27 Urinalysis, Routine (Dipstick) Comments: How was Urine Obtained? Urine, [facility] [address] [place], [address] LEUK ESTERASE Negative /ul (Normal) OCCULT BLOOD-UR Negative /ul (Normal) NITRITE UR Negative (Normal) UROBILI Normal mg/dL (Normal) PROT DIPSTX Negative mg/dL (Normal) pH UR 6.5 (Normal) Range: 5.0 - 8.0 SP.GR. DIPSTX 1.010 (Normal) Range: 1.002-1.030 KETONE UR Negative mg/dL (Normal) BILIRUBIN URINE Negative mg/dL (Normal) GLUCOSE, UR Normal mg/dL (Normal) CLARITY Clear (Normal) COLOR Yellow (Normal) 1-Iyx-520254:01 Protime w/INR Fingerstick Comments: [facility] LaboratoryPoint of M[address] [place] [address]. [place] [address] INR ISTAT 1.00 (Normal) Comments: Critical Value > 3.5 PROTIME ISTAT 11.9 {SEC} (Normal) Range: 11.9-14.4 Comments: Reference Range 11.9 - 14.4 59-Plx-516421:58 URINE GRETTA CULTURE-IDENTIFICATN Comments: PATIENT NOT FASTINGPERFORMED BY: [facility] [id number] Information: SRC:UC (14922) Result 1 MUG (Normal) Comments: Mixed urogenital floraGreater than 100,000 colony forming units per mL Urine Culture,Comprehensive Final report (Normal) 98-Itd-844549:57 Urinalysis, Office (91710) UA - LEUKOCYTE ESTERASE Negative (Normal) UA - NITRITE Negative (Normal) URINE UROBILINGN YANCI TIMED 2 mg/dL (Normal) UA - PROTEIN Negative mg/dL (Normal) UA - PH 7.0 (Normal) UA - BLOOD Negative (Normal) UA - SPECIFIC GRAVITY 1.010 (Normal) UA - KETONES Negative mg/dL (Normal) UA - BILIRUBIN Negative (Normal) UA - GLUCOSE Negative (Normal) 03-Apr-20188:00 Protime w/INR Fingerstick Comments: [facility] of Eqdm[address] [place] [address] INR ISTAT 1.10 (Normal) Comments: Critical Value > 3.5 PROTIME ISTAT 13.7 {SEC} (Normal) Range: 11.9-14.4 Comments: Reference Range 11.9 - 14.4 59-Xtl-479584:23 Amylase 89 U/L (Normal) Comments: PATIENT NOT FASTINGPERFORMED BY: [facility] [address]eywv[address] [id number] Range: 31-124 76-Usv-455567:23 CBC With Differential/Platelet Comments: PATIENT NOT FASTINGPERFORMED BY: [facility] [id number] Immature Grans (Abs) 0.0 {x10E3/uL} (Normal) Range: [...] 3.77-5.28 WBC 4.2 {x10E3/uL} (Normal) Range: 3.4-10.8 15-Eww-875310:23 Comp. Metabolic Panel (14) Comments: PATIENT NOT FASTINGPERFORMED BY: LabCoCarrier ClinicQgtetq4665 [address] [id number] ALT (SGPT) 18 [iU]/L (Normal) Range: 0-32 [...] U/L (Abnormal) Comments: PATIENT NOT FASTINGPERFORMED BY: [place] [id number] 4:23 Range: 14-72 37-Grh-870417:23 Urinalysis, Routine Comments: PATIENT NOT FASTINGPERFORMED BY: GiftLauncher[address] [id number] Microscopic Examination MICNIP (Normal) Comments: Microscopic not indicated and not performed. Nitrite, Urine Negative (Normal) Urobilinogen,Semi-Qn 1.0 mg/dL (Normal) Range: 0.2-1.0 Bilirubin Negative (Normal) Occult Blood Negative (Normal) Ketones Negative (Normal) Glucose Negative (Normal) Protein Negative (Normal) WBC Esterase Negative (Normal) Appearance Clear (Normal) Urine-Color Yellow (Normal) pH 6.0 (Normal) Range: 5.0-7.5 Specific Rhine 1.020 (Normal) Range: 1.005-1.030 :42 Protime w/INR Fingerstick Comments: [facility] Laboratory[facility] of [address]soj[address] [place], [place] [address] INR ISTAT 1.00 (Normal) Comments: Critical Value > 3.5 PROTIME ISTAT 12.4 {SEC} (Normal) Range: 11.9-14.4 Comments: Reference Range 11.9 - 14.4 :14 CBC W/Diff, Automated Comments: [facility] [address] [place], [place], [address] ; fu 6-19 Absolute Lymph 1.62 {X10_3/ul} [...] 4.2-5.4 WBC 4.7 K/mm3 (Normal) Range: 4.4-11.0 57-Vbn-116880:14 Comprehensive Metabolic Profil Comments: [facility] [address] [place], [address] GAP 5 (Normal) Range: 5-15 CO2 29.0 [...] A.D.A. criteria.Please note revised GLUCOSE reference range ktikxporw42/02/2018. 84-Pak-077671:14 Ferritin Comments: [facility] [address] [place], [address] FERRITIN 82 ng/mL (Normal) Range: 8-252 07-Fnb-122381:14 Vitamin B12 558 pg/mL (Normal) Comments: [facility] [address] [place], [address] Range: 211-911 05-Sep-20178:07 Protime w/INR Fingerstick Comments: [facility] of [address] [place] [address] INR ISTAT 1.30 (Normal) Comments: Critical Value > 3.5 PROTIME ISTAT 14.9 {SEC} (Abnormal) Range: 11.9-14.4 Comments: Reference Range 11.9 - 14.4 08-Aug-20179:10 Protime w/INR Fingerstick Comments: [facility] LaboratoryPoint [place] [address] [place] [address] INR ISTAT 1.10 (Normal) Comments: Critical Value > 3.5 PROTIME ISTAT 13.0 {SEC} (Normal) Range: 11.9-14.4 Comments: Reference Range 11.9 - 14.4 23-Pev-916632:32 Culture, Blood (WB) Comments: [facility] [address] [place], [address] CUB See Note (Normal) Comments: Has pt arrived? Y Comments: DR. Mello growth in 5 days. 90-Wfq-564840:25 CBC W/Diff, Automated Comments: Comments: DR Cui [facility] [address] [place], [address] Absolute Lymph 1.68 {X10_3/ul} (Normal) [...] 4.2-5.4 WBC 3.9 K/mm3 (Abnormal) Range: 4.4-11.0 25-Icl-886711:25 Culture, Blood (WB) Comments: [facility] [address] [place], [address] CUB See Note (Normal) Comments: Has pt arrived? Y Comments: DR. Mello growth in 5 days. 70-Pzx-864448:25 Erythrocyte Sed Rate Comments: Comments: [facility] Ics[address]wdpek[address] [place], [address] SED RATE 8 mm/h (Normal) Range: 0-30 69-Fhn-038725:25 Ferritin Comments: Comments: DR [facility] O[address]xzhcubz[address] [place], [address] FERRITIN 83 ng/mL (Normal) Range: 8-252 40-Zdk-227654:25 Vitamin D,25 Hydroxy Comments: Order Date: 07/20/17[facility] [address] [place], [address] Vitamin D 25-OH 34.6 ng/mL (Normal) Comments: Vitamin D 25(OH) Status Range Deficiency <20 ng/mL (50nmol/L) Insuffciency 20 - 30 ng/mL (50 - 75 nmol/L) Sufficiency 30 - 100 ng/mL (75 - 250 nmol/L) Toxicity >100 ng/mL (>250 nmol/L) 85-Ijx-515146:10 Culture, Urine Comments: [facility] [address] [place], [address] CUUR See Note (Normal) Comments: Order Date: 07/20/17 Comments: DR PIZANO Urine CultureCulture exhibits no growth. 66-Xcv-609705:10 Urinalysis, Complete Comments: Order Date: 07/20/17Has pt arrived? YComments: DR Morales was Urine Obtained? [facility] [address] [place], [place], [address] MUCUS, URINE 0 SEEN {/hpf} (Normal) BACTERIA [...] (Normal) CLARITY Clear (Normal) COLOR Yellow (Normal) 3-Lah-637915:48 Protime w/INR Fingerstick Comments: [facility] LaboratoryPoint [place] [address] [place] [address] INR ISTAT 1.10 (Normal) Comments: Critical Value > 3.5 PROTIME ISTAT 13.2 {SEC} (Normal) Range: 11.9-14.4 Comments: Reference Range 11.9 - 14.4 :30 Protime w/INR Fingerstick Comments: [facility] of Faqe[address] [place] [address] INR ISTAT 1.10 (Normal) Comments: Critical Value > 3.5 PROTIME ISTAT 12.8 {SEC} (Normal) Range: 11.9-14.4 Comments: Reference Range 11.9 - 14.4 :44 INR Fingerstick Comments: [facility] LaboratoryPoint of [address]tt[address] [place] [address] INR ISTAT 1.10 (Normal) Comments: Critical Value > 3.5 :44 Prothrombin Time Fingerstick Comments: [facility] Kzse[address] [place] [address] PROTIME ISTAT 13.6 {SEC} (Normal) Range: 11.9-14.4 Comments: Reference Range 11.9 - 14.4 87-Ctb-165760:17 HgA1C , Office (08598) HgA1C , Office 5.7 % (Normal) Range: 4.6 - 7.1 00-Tfq-737490:08 Metabolic Panel, Basic Comments: PATIENT NOT FASTINGPERFORMED BY: [facility] [id number] (93833) Calcium, Serum 9.1 mg/dL (Normal) Range: 8.7-10.3 [...] Glucose, Serum 97 mg/dL (Normal) Range: 65-99 02-Jmn-086921:08 CBC (Auto) (70001) Comments: PATIENT NOT FASTINGPERFORMED BY: [employer] [facility] [address]T [address] [id number] Platelets 306 {x10E3/uL} (Normal) Range: 150-379 RDW 15.6 % (Abnormal) Range: 12.3-15.4 MCHC 32.9 g/dL (Normal) Range: 31.5-35.7 MCH 28.3 pg (Normal) Range: 26.6-33.0 MCV 86 fL (Normal) Range: 79-97 Hematocrit 35.9 % (Normal) Range: 34.0-46.6 Hemoglobin 11.8 g/dL (Normal) Range: 11.1-15.9 RBC 4.17 {x10E6/uL} (Normal) Range: 3.77-5.28 WBC 4.6 {x10E3/uL} (Normal) Range: 3.4-10.8 35-Lle-129940:08 URINALYSIS W/O MICRO (20048) Comments: PATIENT NOT FASTINGPERFORMED BY: [facility] [id number] Microscopic Examination MICNIP (Normal) Comments: Microscopic not indicated and not performed. Nitrite, Urine Negative (Normal) Urobilinogen,Semi-Qn 0.2 mg/dL (Normal) Range: 0.2-1.0 Bilirubin Negative (Normal) Occult Blood Negative (Normal) Ketones Negative (Normal) Glucose Negative (Normal) Protein Negative (Normal) WBC Esterase Negative (Normal) Appearance Clear (Normal) Urine-Color Yellow (Normal) pH 6.0 (Normal) Range: 5.0-7.5 Specific Rhine 1.013 (Normal) Range: 1.005-1.030 87-Wzu-765215:08 COMPLEMENT C4 (81913) Comments: PATIENT NOT FASTINGPERFORMED BY: [facility]fastRe[facility] Southern New MexicoQykhlx6165 [address] [facility]engOur [facility] [id number] Complement C4, Serum 16 mg/dL (Normal) Range: 14-44 50-Pwr-960334:08 COMPLEMENT C3 (55178) Comments: PATIENT NOT FASTINGPERFORMED BY: [facility] ID90T [address] UNATIONFormer[facility] [id number] Complement C3, Serum 103 mg/dL (Normal) Range: 82-167 25-Buj-436627:08 DNA ANTIBODY-NATV/DBL ST (44414) Comments: PATIENT NOT FASTINGPERFORMED BY: PublicfastCarrier ClinicTwahui6[address] [id number] test code 255669 Anti-DNA (DS) Ab Qn <1 {IU/mL} (Normal) Range: 0-9 Comments: Negative <5 Equivocal 5 - 9 Positive >9 :08 Sed Rate Erythrocyte (00330) Comments: PATIENT NOT FASTINGPERFORMED BY: [facility] [place] [address] [id number] Sedimentation Rate-Westergren 4 mm/h (Normal) Range: 0-40 94-Kvi-340019:08 DESIRAE (ANTINUCLEAR ANTIBODY) Comments: PATIENT NOT FASTINGPERFORMED BY: [address] [id number] (96661) DESIRAE Direct Negative (Normal) 8-Hba-656698:04 Prothrombin Time w/INR Comments: [facility] [address] [facility] [place], [address] INR 1.5 (Normal) PROTIME 17.8 s (Abnormal) Range: 11.7-14.9 69-Euh-065072:45 Prothrombin Time w/INR Comments: [facility] [address] [place], [address] INR 3.0 (Normal) PROTIME 30.3 s (Abnormal) Range: 11.7-14.9 :51 Serum Creatinine AND GFR Comments: [facility] [address]oshpvc[address] [facility] [place], [address] EST GFR - AA 90 mL/min (Normal) Comments: GFR Calc EST GFR 74 mL/min (Normal) Comments: Non- GFR Calc CREAT,SERUM 0.83 mg/dL (Normal) Range: 0.55-1.02 Comments: The validity of the calculated GFR AND GFRAA in patients over70 years has not been determined. Clinical correlation isessential. :21 LIPASE (58624) Comments: PATIENT NOT FASTINGPERFORMED BY: [facility] [id number] Lipase, Serum 46 U/L (Normal) Range: 14-72 Comments: Please note reference interval change :21 AMYLASE (25920) Comments: PATIENT NOT FASTINGPERFORMED BY: [facility] Qsmznq8125 [address] [facility] [place] [id number] Amylase, Serum 65 U/L (Normal) Range: 31-124 6-Hdu-619569:21 CALCIFIDIOL (15411) VIT D 25 Comments: PATIENT NOT FASTINGPERFORMED BY: [facility] Hwsadk[address] [facility] [place] [id number] Vitamin D, 25-Hydroxy 25.8 ng/mL (Abnormal) Range: 30.0-100.0 Comments: Vitamin D deficiency has been defined by the [place] of[place]icine and an Endocrine Society practice guideline as alevel of serum 25-OH vitamin D less than 20 ng/mL (1,2).The Endocrine Society went on to further define vitamin Dinsufficiency as a level between 21 and 29 ng/mL (2).1. IOM ([place] of Medicine). 2010. Dietary reference intakes for calcium and D. Lal [place]: The National Academies Press.2. Candelaria MF, Janey ELIAS, Yolande GROSS, et al. Evaluation, treatment, and prevention of vitamin D deficiency: an Endocrine Society clinical practice guideline. JCEM. 2010; 96(7):1911-30. 1-Abw-503622:21 Ferritin (97122) Comments: PATIENT NOT FASTINGPERFORMED BY: CB [facility] Eennuc[address] [facility] [place] [id number]; fu 10-27 db Ferritin, Serum 10 ng/mL (Abnormal) Range: 15-150 6-Nwc-764620:21 Vitamin B-12 (cyanocobalamin) Comments: PATIENT NOT FASTINGPERFORMED BY: [facility] Hltozo[address] [facility] [place] [id number] (38097) Vitamin B12 1888 pg/mL (Abnormal) Range: 211-946 3-Non-504772:21 METABOLIC PANEL, COMPREHENSIVE Comments: PATIENT NOT FASTINGPERFORMED BY: [facility] Zpleml3064 [address] [facility] [place] [id number] (96466) ALT (SGPT) 11 [iU]/L (Normal) Range: 0-32 [...] Glucose, Serum 101 mg/dL (Abnormal) Range: 65-99 3-Vum-110316:21 CBC with auto diff Comments: PATIENT NOT FASTINGPERFORMED BY: LabCoCarrier ClinicNnwzpj8603 [address] [id number] Information: CLIENT DRAW (14459) Immature Grans (Abs) 0.0 {x10E3/uL} (Normal) Range: [...] 3.77-5.28 WBC 5.7 {x10E3/uL} (Normal) Range: 3.4-10.8 31-Ckl-236474:14 Prothrombin Time w/INR Comments: [facility] [address]ald[address] [place], [place], [address] INR 1.9 (Normal) Comments: ADDENDA: handled by cardio PROTIME 21.0 s (Abnormal) Range: 11.7-14.9 23-Bpw-732561:57 HEPATIC FUNCTION PANEL Comments: PATIENT NOT FASTINGPERFORMED BY: [facility] Jvnfut[address] [id number] (41900) ALT (SGPT) 15 [iU]/L (Normal) Range: 0-32 AST (SGOT) 20 [iU]/L (Normal) Range: 0-40 Alkaline Phosphatase, S 114 [iU]/L (Normal) Range: 39-117 Bilirubin, Direct 0.10 mg/dL (Normal) Range: 0.00-0.40 Comments: Please note reference interval change Bilirubin, Total <0.2 mg/dL (Normal) Range: 0.0-1.2 Albumin, Serum 4.9 g/dL (Abnormal) Range: 3.6-4.8 Protein, Total, Serum 7.1 g/dL (Normal) Range: 6.0-8.5 :57 IGA/IGD/IGG/IGM-EACH (65406) Comments: PATIENT NOT FASTINGPERFORMED BY: [facility] [address]pa[address] [id number] Immunoglobulin E, Total 50 {IU/mL} (Normal) Range: 0-100 Immunoglobulin M, Qn, Serum 43 mg/dL (Normal) Range: 26-217 Immunoglobulin A, Qn, Serum 131 mg/dL (Normal) Range: 87-352 Immunoglobulin G, Qn, Serum 753 mg/dL (Normal) Range: 700-1600 97-Bqw-186927:57 EBV ACUTE PFOF IgG/IgM Comments: PATIENT NOT FASTINGPERFORMED BY: [employer] [address] [id number] (46276) Interpretation: SPRCS (Normal) Comments: EBV Interpretation Chart [...] (LACTATE DEHYDROGENASE) Comments: PATIENT NOT FASTINGPERFORMED BY: [employer] L[address]vuw[address]25 [address] [id number] (40572) LDH 191 [iU]/L (Normal) Range: 119-226 43-Uiy-277912:57 HIV-1 & 2 ANTBDY-SNGL SHAWN Comments: PATIENT NOT FASTINGPERFORMED BY: [address] [id number] (53236) HIV Screen 4th Generation wRfx Non Reactive (Normal) 55-Yyj-627378:57 HEPATITIS PANEL (87076) Comments: PATIENT NOT FASTINGPERFORMED BY: [address] [id number] Hep C Virus Ab 0.1 {s/co_ratio} (Normal) Range: 0.0-0.9 Comments: Negative: < 0.8 Indeterminate: 0.8 - 0.9 Positive: > 0.9 . The CDC recommends that a positive HCV antibody result be followed up with a HCV Nucleic Acid Amplification test (787253). Hep B Core Ab, IgM Negative (Normal) HBsAg Screen Negative (Normal) Hep A Ab, IgM Negative (Normal) :56 Culture, Blood (WB) Comments: [facility] [address] [place], [address] CUB See Note (Normal) Comments: BCNo growth in 5 days. 9-Zxr-645992:56 EBV Acute Prof IgG / IgM Comments: [facility] (refer to report for specific site)refer to report for address and phone number INTERPRETATION Comment (Normal) Comments: EBV Interpretation ChartInterpretation EBV-IgM EA(D)-IgG VCA-IgG EBNA-IgGEBV Seronegative - - - -Early Phase + - - -Acute Primary + +or- + -InfectionConvalescence/Past - +or- + +InfectionReactivated +or- + + +Infection + Antibody Present - Antibody Ab sentPerformed at: [address] [id number] Director: Neo Campos PhD, Phone: [phone] EB-NAg [id number] 136.0 U/mL (Abnormal) Range: 0.0-17.9 Comments: Negative <18.0 Equivocal 18.0 - 21.9 Positive >21.9 EB-VCA [id number] 255.0 U/mL (Abnormal) Range: 0.0-17.9 Comments: Negative <18.0 Equivocal 18.0 - 21.9 Positive >21.9 EB-EA IgG 94276 18.4 U/mL (Abnormal) Range: 0.0-8.9 Comments: Hepatitis A, Hepatitis C and HIV antibodies may cross-reactwith this assay. Negative < 9.0 Equivocal 9.0 - 10.9 Positive >10.9 EB-VCA [id number] 36.1 U/mL (Abnormal) Range: 0.0-35.9 Comments: A second sample should be collected and tested no less than2-4 weeks. Negative <36.0 Equivocal 36.0 - 43.9 Positive >43.9 :56 Ferritin Comments: [place] [address] [place], [address] FERRITIN 34 ng/mL (Normal) Range: 8-252 2-Nbd-718864:56 Vitamin D,25 Hydroxy Comments: [address] [place], [address] Vitamin D 25-OH 29.2 ng/mL (Normal) Comments: Vitamin D 25(OH) Status Range Deficiency <20 ng/mL (50nmol/L) Insuffciency 20 - 30 ng/mL (50 - 75 nmol/L) Sufficiency 30 - 100 ng/mL (75 - 250 nmol/L) Toxicity >100 ng/mL (>250 nmol/L) 1-Mis-367703:03 INR Fingerstick Comments: [place] [address] [place] [address] INR ISTAT 1.00 (Normal) Comments: Critical Value > 3.5 :03 Prothrombin Time Fingerstick Comments: [place] [address] [place] [address] PROTIME ISTAT 12.1 {SEC} (Normal) Range: 11.9-14.4 Comments: Reference Range 11.9 - 14.4 46-Hhx-190771:55 Prothrombin Time w/INR Comments: [facility] [address]qmh[address] [place], [place], [address] INR 2.6 (Normal) PROTIME 26.7 s (Abnormal) Range: 11.7-14.9 :44 GRETTA CULTURE-OTHER (00517) Comments: PATIENT NOT FASTINGPERFORMED BY: LabCoNicholas [place] [address] [id number] Information: THROAT SRC:TH Result 1 RRF (Normal) Comments: Routine respiratory rajwinder Upper Respiratory Culture Final report (Normal) 36-Ily-731702:31 Rapid Flu (52096 x 2) Influenza A Ag negative (Normal) :31 Rapid Strep Test, Office (29900) Rapid Strep Test, Office Negative (Normal) 69-Ywg-730489:46 Microscopic Examination Comments: PATIENT NOT FASTINGPERFORMED BY: [facility] Biazkm6030 [address] [id number] Bacteria Few (Normal) Mucus Threads Present (Normal) Crystal Type Calcium Oxalate (Normal) Crystals Present (Abnormal) Epithelial Cells (non renal) 0-10 {/hpf} (Normal) Range: 0 - 10 RBC 0-2 {/hpf} (Normal) Range: 0 - 2 WBC 0-5 {/hpf} (Normal) Range: 0 - 5 43-Zcc-003546:46 URINALYSIS (59496) Comments: PATIENT NOT FASTINGPERFORMED BY: [facility] Dixkoi[address] [id number] Microscopic Examination See below: (Normal) Comments: Microscopic was indicated and was performed. Nitrite, Urine Negative (Normal) Urobilinogen,Semi-Qn 1.0 mg/dL (Normal) Range: 0.2-1.0 Bilirubin Negative (Normal) Occult Blood Negative (Normal) Ketones Negative (Normal) Glucose Negative (Normal) Protein Negative (Normal) WBC Esterase 1+ (Abnormal) Appearance Clear (Normal) Urine-Color Yellow (Normal) pH 6.0 (Normal) Range: 5.0-7.5 Specific Rhine 1.018 (Normal) Range: 1.005-1.030 :46 CBC WITH MANUAL DIFF ([id number]) Comments: PATIENT NOT FASTINGPERFORMED BY: [facility]The [facility] St[facility] [id number] [id number] Immature Grans (Abs) 0.0 {x10E3/uL} (Normal) Range: [...] 3.77-5.28 WBC 4.5 {x10E3/uL} (Normal) Range: 3.4-10.8 [id number] Ferritin (01522) Comments: PATIENT NOT FASTINGPERFORMED BY: [facility] [id number] Ferritin, Serum 10 ng/mL (Abnormal) Range: 15-150 13-Hnj-274476:46 Metabolic Panel, Comprehensive Comments: PATIENT NOT FASTINGPERFORMED BY: [facility] [id number] (35729) ALT (SGPT) 18 [iU]/L (Normal) Range: 0-32 [...] Glucose, Serum 86 mg/dL (Normal) Range: 65-99 71-Wso-104441:46 AMYLASE (87606) Comments: PATIENT NOT FASTINGPERFORMED BY: [facility] [id number] Amylase, Serum 81 U/L (Normal) Range: 31-124 68-Qrr-497112:46 LIPASE (51710) Comments: PATIENT NOT FASTINGPERFORMED BY: [facility] [id number] Lipase, Serum 79 U/L (Abnormal) Range: 0-59 71-Qcf-874314:33 Prothrombin Time w/INR Comments: Order Date: 03/23/16Order Date: 03/23/16Interface Comments: Reason:Order Date: 03/23/16[facility] Rjjjqjqgkx3654 [address] Ben[address]. [place], [id number] INR 2.0 (Normal) PROTIME 22.3 s (Abnormal) Range: 11.7-14.9 09-Auj-645403:36 Prothrombin Time w/INR Comments: [facility] Ckgfrrtmae2253 [address]. [place], [id number] INR 1.4 (Normal) PROTIME 17.1 s (Abnormal) Range: 11.7-14.9 80-Cvv-719611:20 Prothrombin Time w/INR Comments: Order Date: 05/11/16Order Info: 6301-6 - *PT/INR - Standing OrderComments: Standing Order-Reason:Order Date: 05/11/16Order Info: 6301-6 - *PT/INR - Standing OrderComments: Standing Order- Reason:[facility] Nsdtiditih5683 [address] [place], [id number] INR 1.2 (Normal) PROTIME 14.8 s (Normal) Range: 11.7-14.9 1-Bft-750326:50 Prothrombin Time w/INR Comments: Order Date: 05/11/16Order Info: 6301-6 - *PT/INR - Standing OrderComments: Standing Order-Reason:Order Date: 05/11/16Order Info: 6301-6 - *PT/INR - Standing OrderComments: Standing Order-Reason:Order Da te: 05/11/16Order Info: 6301-6 - *PT/INR - Standing OrderComments: Standing Order-Reason:[facility] Uikxilxmfc0413 [address]. [place], [id number] INR 1.2 (Normal) PROTIME 15.1 s (Abnormal) Range: 11.7-14.9 04-Jun-20160:00 Culture, Nose Comments: [facility] Imqzuawioh2257 [address]. [place], [id number] CUN See Note (Normal) Comments: Comments: NARESGram StainGram Stain Rare White Blood Cells 1+ Epithelial cells 4+ Gram positive rods Nasoph. CultNo Haemophilus, Streptococcus pneumoniae, beta-hemolytic Streptococcus or Staphylococcus aureus isolated. :00 Culture, Throat Comments: [facility] Dikragwrrf5[address] [place], [place], [id number] CUT See Note (Normal) Comments: Comments: NARESCulture, ThroatNo Haemophilus, Streptococcus pneumoniae, beta-hemolytic Streptococcus or Staphylococcus aureus isolated. :05 Rapid Flu (92355 x 2) Influenza A Ag neg (Normal) :45 CBC W/Diff, Automated Comments: Order Date: 03/18/16Order Date: 03/18/16[facility] Nxldtsduqm6244 [address] [place] [employer], [place], [address] Absolute Lymph 2.95 {X10_3/ul} (Normal) Range: 0.83-4.51 [...] Serial Specimen #1, #2 or #3? [address] [place] [address] Oekmibvkyx3372 [address] [place] [employer], [place], [address] CKRI 3.2 % (Abnormal) Range: 0.0-1.4 Comments: RELATIVE INDEX >1.5% IS PRESUMPTIVELY POSITIVE CPKMB 1.8 ng/mL (Normal) Range: 0.0-5.0 Comments: CK-MB and RI Interpretation MB Relative Index Non-AMI <or= 5 NA Indeterminate > 5 <or= 4 AMI > 5 > 4 CPK TOTAL 57 U/L (Normal) Range: 26-192 :45 Erythrocyte Sed Rate Comments: Order Date: 03/18/16Order Date: 03/18/16[facility] Quwtvuuuyl6777 [place], [address] SED RATE 1 mm/h (Normal) Range: 0-30 :45 Myoglobin, Serum Comments: Order Date: 03/18/16[facility] (refer to report for specific site)refer to report for address and phone number Myoglobin, Ser 23 ng/mL (Abnormal) Range: 25-58 Comments: Performed at: - [facility] [address] [id number] Director: Neo Campos PhD, Phone: [phone] Troponin-I Comments: Order Date: 03/18/16TROP ADDED 03/19/16Order Date: 03/18/16'TROP' Serial specimen #1, #2, #3, or #4: 1'CKMB' Serial Specimen #1, #2 or #3? [address] [place] [address] Leshbdcqig5864 [address]. [place], [place], [address] TROPONIN-I < 0.02 ng/mL (Normal) Comments: TROPONIN-I EXPECTED VALUES <0.05 NEGATIVE 0.06 - 0.59 AT RISK OF [place] > OR = 0.60 SUGGEST [place] 06-Nbx-175309:00 Basic Metabolic Profile (BMP) Comments: 'TROP' Serial specimen #1, #2, #3, or #4: 1[facility] Abllyhfxau7431 [place] [place], [address] GAP 6 (Normal) Range: 5-15 [...] 7-18 GLU 101 mg/dL (Normal) Range: 70-110 08-Puy-023131:00 CBC W/Diff, Automated Comments: [facility] Jhpdonxgps9481 [place], [address] Absolute Lymph 2.27 {X10_3/ul} (Normal) [...] 4.2-5.4 WBC 4.9 K/mm3 (Normal) Range: 4.4-11.0 74-Siz-391085:00 Lipase Comments: 'TROP' Serial specimen #1, #2, #3, or #4: [address] [place] [address] Ypyaoystte7529 [place], [place], [id number](948) LIPASE 351 U/L (Normal) Range: 73-393 57-Bgp-324879:00 Liver Profile Comments: 'TROP' Serial specimen #1, #2, #3, or #4: [address] [place] [address] Jtxaoqfsaz4329 [place], [place], [address] D BILI 0.15 mg/dL (Normal) Range: 0.00-0.30 T BILI 0.30 mg/dL (Normal) Range: 0.20-1.00 ALT 23 U/L (Normal) Range: 12-78 ALK P 81 U/L (Normal) Range: 50-136 AST 24 U/L (Normal) Range: 15-37 GLOB 2.8 g/dL (Normal) Range: 2.3-3.5 ALB 4.0 g/dL (Normal) Range: 3.4-5.0 T PROT 6.8 g/dL (Normal) Range: 6.4-8.2 75-Gyo-409394:00 Troponin-I Comments: 'TROP' Serial specimen #1, #2, #3, or #4: [address] [place] [address] Byxjyafell7178 [address] [place] [employer], [place], [address] TROPONIN-I < 0.02 ng/mL (Normal) Comments: TROPONIN-I EXPECTED VALUES <0.05 NEGATIVE 0.06 - 0.59 AT RISK OF [place] > OR = 0.60 SUGGEST [place] 17-Fzv-044977:08 Osmolality, Urine Comments: Order Date: 02/16/16Has pt arrived? [facility] Vkfmddomlo8914 [address] [place] [employer], [place], [phone] OSMOLALITY,UR 310 {mOsm/KG} (Normal) Comments: OSMOLALITY URINE REFERENCE INTERVALS 24-hour Urine 300 - 900 mOsm/kg Random Urine 50 - 1400 mOsm/kg After 12 Hr fluid restriction >850 mOsm/kg 31-Mog-039579:50 Amylase Comments: [facility] Bbdxuogoic5162 [address] [place] [employer], [place], [address] PREMA 80 U/L (Normal) Range: 25-115 69-Qek-256155:50 CBC W/Diff, Automated Comments: [facility] Pkvlpazgww5388 [address] [place], [place], [address] Absolute Lymph 1.51 {X10_3/ul} (Normal) Range: 0.83-4.51 [...] 4.2-5.4 WBC 4.3 K/mm3 (Abnormal) Range: 4.4-11.0 02-Qzh-102926:50 Comprehensive Metabolic Profil Comments: [facility] Kofoitihur8776 [address]. [place], [place], [address] GAP 6 (Normal) Range: 5-15 CO2 28.0 [...] 7-18 GLU 98 mg/dL (Normal) Range: 70-110 40-Wmn-539321:50 Lipase Comments: [address] [place], [address] LIPASE 424 U/L (Abnormal) Range: 73-393 39-Ako-659373:50 Osmolality, Serum Comments: [address] [place], [address] OSMOLALITY,SER 275 {mOsm/KG} (Normal) Range: 275-295 71-Rtp-248220:50 Vitamin B12 489 pg/mL (Normal) Comments: [address] [place] [place], [address] ; will review on 02/19 Range: 211-911 23-Asq-443770:50 Vitamin D,25 Hydroxy Comments: [address] [place] [place], [address] Vitamin D 25-OH 37.6 ng/mL (Normal) Comments: Vitamin D 25(OH) Status Range Deficiency <20 ng/mL (50nmol/L) Insuffciency 20 - 30 ng/mL (50 - 75 nmol/L) Sufficiency 30 - 100 ng/mL (75 - 250 nmol/L) Toxicity >100 ng/mL (>250 nmol/L) :00 Ferritin Comments: [address] [place], [address] FERRITIN 13 ng/mL (Normal) Range: 8-252 :00 Lipid Profile Comments: [address] [place] [place], [address] VLDL 28 mg/dL (Normal) [...] 200-240 mg/dL Borderline >240 mg/dL High Risk 4-Ysy-898283:40 CBC W/Diff, Automated Comments: Order Date: 09/08/15Has pt arrived? [facility] Wjdwoaiszh9048 [facility] [place], [place], [address] Absolute Lymph 1.80 {X10_3/ul} (Normal) Range: 0.83-4.51 [...] 4.2-5.4 WBC 4.4 K/mm3 (Normal) Range: 4.4-11.0 2-Oyu-309525:40 Comprehensive Metabolic Profil Comments: Order Date: 09/08/15Has pt arrived? [facility] Leoklsuqiu3725 [address] [place] [employer], [place], [address] GAP -1 (Abnormal) Range: 5-15 CO2 30.0 [...] 7-18 GLU 97 mg/dL (Normal) Range: 70-110 4-Aee-564865:16 Amylase Comments: [facility] Pexuznedlf5620 [place], [address] PREMA 95 U/L (Normal) Range: 25-115 8-Nxd-715697:16 Lipase Comments: [facility] Crpmdkazvi3282 [place], [address] LIPASE 568 U/L (Abnormal) Range: 73-393 5-Khv-430140:29 Influenza A&B Viral Comments: PATIENT NOT FASTINGPERFORMED BY: Lipperhey ID90T [address] [id number] Information: SRC:NOS [id number] Culture (07068) Viral Culture,Rapid,Influenza FLUABN (Normal) Comments: Negative:No Influenza A or B detected. 0-Ite-152953:49 Rapid Flu (79649 x 2) Influenza A Ag neg (Normal) :01 CBC (Auto) (62378) Comments: now and in six months (approximately); PATIENT WAS FASTINGPERFORMED BY: [facility] [id number] Information: [id number], [id number] Platelets 357 {x10E3/uL} (Normal) Range: 150-379 RDW [...] Basic Comments: now; PATIENT WAS FASTINGPERFORMED BY: [facility] Ojczuc[address] [id number] (42290) Calcium, Serum 9.1 mg/dL (Normal) Range: 8.7-10.2 [...] Glucose, Serum 102 mg/dL (Abnormal) Range: 65-99 94-Akh-369431:01 CALCIFIDIOL (46487) VIT D 25 Comments: now and in six months (approximately); PATIENT WAS FASTINGPERFORMED BY: [place] [id number] Vitamin D, 25-Hydroxy 32.8 ng/mL (Normal) Range: 30.0-100.0 Comments: Vitamin D deficiency has been defined by the [place] ofMedicine and an Endocrine Society practice guideline as alevel of serum 25-OH vitamin D less than 20 ng/mL (1,2).The Endocrine Society went on to further define vitamin Dinsufficiency as a level between 21 and 29 ng/mL (2).1. IOM ([place] of Medicine). 2010. Dietary reference intakes for calcium and D. [place]: The National Academies Press.2. Candelaria MF, Janey ELIAS, Yolande GROSS, et al. Evaluation, treatment, and prevention of vitamin D deficiency: an Endocrine Society clinical practice guideline. JCEM. 2010; 96(7):1911-30. 1-Sbk-192266:06 Sputum Culture (33015) Comments: PATIENT NOT FASTINGPERFORMED BY: [facility] [id number] Information: [id number] Result 1 RRF (Normal) Comments: Routine respiratory rajwinder Lower Respiratory Culture Final report (Normal) 9-Sjk-224907:12 Rapid Flu (87745 x 2) Influenza A Ag neg a and b (Normal) 05-Dfc-042818:01 Urinalysis, Office (03555) UA - LEUKOCYTE ESTERASE Negative (Normal) UA - NITRITE Negative (Normal) URINE UROBILINGN YANCI TIMED Normal mg/dL (Normal) UA - PROTEIN Negative mg/dL (Normal) UA - PH 6.0 (Normal) Comments: 5.5 UA - BLOOD Negative (Normal) UA - SPECIFIC GRAVITY 1.025 (Normal) UA - KETONES Negative mg/dL (Normal) UA - BILIRUBIN Negative (Normal) UA - GLUCOSE Negative (Normal) 85-Duy-071382:40 Lipase (81588) Comments: PATIENT NOT FASTINGPERFORMED BY: [facility]fastCarrier ClinicHwhvvt7964 [address] [id number] Lipase, Serum 113 U/L (Abnormal) Range: 0-59 27-Utn-266410:40 Amylase (21560) Comments: PATIENT NOT FASTINGPERFORMED BY: [facility] [place] [address] [id number] Information: [id number] Amylase, Serum 104 U/L (Normal) Range: 31-124 3-Ipi-758411:54 Sputum Culture (48956) Comments: PATIENT NOT FASTINGPERFORMED BY: [facility] [place] [address] [id number] Information: SRC: THROAT [id number] Result 1 RRF (Normal) Comments: Routine respiratory rajwinder Lower Respiratory Culture Final report (Normal) 1-Iyl-520862:55 Pathology Report Comments: PERFORMED BY: [facility] Cyto Wmeet68845 [facility] [id number] BY: [facility] Dermatopathology Prkjxji[address] [id number] Information: [id number] See MATER Comments: Material submitted: .PUNCH BIOPSY [...] IS NEGATIVE FOR FUNGAL FORMS.Pathologist provided ICD-9:692.9CPT .864160, 432183 20-Exm-954175:41 Lipid Panel (21706) Comments: PATIENT WAS FASTINGPERFORMED BY: PublicfastCarrier ClinicCupcih7412 [address] [id number] LDL/HDL Ratio 1.0 {ratio_units} (Normal) Range: 0.0-3.2 [...] - 169 >19 years 100 - 199 80-Hvp-063076:41 Metabolic Panel, Comments: PATIENT WAS FASTINGPERFORMED BY: [facility] [id number] Information: [id number] Comprehensive (32911) ALT (SGPT) 13 [iU]/L (Normal) Range: 0-32 [...] Glucose, Serum 97 mg/dL (Normal) Range: 65-99 40-Fjj-416672:41 Vitamin B-12 (cyanocobalamin) Comments: PATIENT WAS FASTINGPERFORMED BY: [facility] Enfvoz9810 [facility] [id number] (34425) Vitamin B12 632 pg/mL (Normal) Range: 211-946 :41 CBC (Auto) (99860) Comments: PATIENT WAS FASTINGPERFORMED BY: [facility] Qyvkhf6005 [address] [id number] Platelets 270 {x10E3/uL} (Normal) Range: 150-379 RDW 13.9 % (Normal) Range: 12.3-15.4 MCHC 32.8 g/dL (Normal) Range: 31.5-35.7 MCH 29.5 pg (Normal) Range: 26.6-33.0 MCV 90 fL (Normal) Range: 79-97 Hematocrit 36.6 % (Normal) Range: 34.0-46.6 Hemoglobin 12.0 g/dL (Normal) Range: 11.1-15.9 RBC 4.07 {x10E6/uL} (Normal) Range: 3.77-5.28 WBC 8.5 {x10E3/uL} (Normal) Range: 3.4-10.8 :41 Ferritin (24900) Comments: PATIENT WAS FASTINGPERFORMED BY: [facility]CoCar[facility] ClinicDfglmx8280 [address] [id number] Ferritin, Serum 28 ng/mL (Normal) Range: 15-150 :41 CALCIFIDIOL (86827) VIT D 25 Comments: PATIENT WAS FASTINGPERFORMED BY: [facility] Pibwhx9718 [address] [id number] Vitamin D, 25-Hydroxy 24.3 ng/mL (Abnormal) Range: 30.0-100.0 Comments: Vitamin D deficiency has been defined by the [place] ofMedicine and an Endocrine Society practice guideline as alevel of serum 25-OH vitamin D less than 20 ng/mL (1,2).The Endocrine Society went on to further define vitamin Dinsufficiency as a level between 21 and 29 ng/mL (2).1. IOM ([place] of Medicine). 2010. Dietary reference intakes for calcium and D. [place]: The National Academies Press.2. Candelaria MF, Janey NC, Yolande GROSS, et al. Evaluation, treatment, and prevention of vitamin D deficiency: an Endocrine Society clinical practice guideline. JCEM. 2010; 96(7):1911-30. :55 CBC-Complete Blood Cnt No Diff Comments: Test performed at:[facility] Mepzlsldfj220[address] [place] [address] MPV 9.5 fL (Normal) Range: 6.2-12.0 PLT [...] Range: 4.4-11.0 :55 Ferritin Comments: Test performed at:[facility] Ocilocaesa3443 [facility] [place] [address] FERRITIN 23 ng/mL (Normal) Range: 8-252 :55 Iron Comments: Test performed at:[facility] Afctxquyvm5923 [facility] [place] [address] IRON 75 ug/dL (Normal) Range: 50-170 :53 CBC W/Diff, Automated Comments: Test performed at:[facility] [address]posb[address] [place], [place] [address] Absolute Lymph 1.57 {X10_3/ul} (Normal) Range: 0.83-4.51 [...] :53 Comprehensive Metabolic Profil Comments: Test performed at:[facility] [address] [place] [address] GAP 5 (Normal) Range: 5-15 CO2 [...] Range: 70-110 :53 Ferritin Comments: Test performed at:[facility] [address] [place] [address] FERRITIN 13 ng/mL (Normal) Range: 8-252 01-Osg-133044:53 Lipid Profile Comments: Test performed at:[facility] [address]uisj[address] [place] [address] VLDL 19 mg/dL (Normal) Range: 5-40 LDL [...] 200-240 mg/dL Borderline >240 mg/dL High Risk 30-Jjm-393452:53 Vitamin B12 > 2000 pg/mL (Abnormal) Comments: Test performed at:[facility] Rabdvsppcm[address] [place] [address] Range: 211-911 73-Aau-516081:46 CBC W/Diff, Automated Comments: Test performed at:[facility] Yhnopbgtrr[address] [place] [address] Absolute Lymph 1.87 {X10_3/ul} (Normal) Range: 0.83-4.51 [...] 4.2-5.4 WBC 4.1 K/mm3 (Abnormal) Range: 4.4-11.0 61-Zjo-758312:46 Comprehensive Metabolic Profil Comments: Test performed at:[facility] Luufolrynr5443 [place] [address] GAP 4 (Abnormal) Range: 5-15 CO2 28.0 [...] :46 Vitamin D,25 Hydroxy Comments: Test performed at:[facility] Woryvfynem2035 [place] [address] Vitamin D 25-OH 30.6 ng/mL (Normal) Comments: Vitamin D 25(OH) Status Range Deficiency <20 ng/mL (50nmol/L) Insuffciency 20 - 30 ng/mL (50 - 75 nmol/L) Sufficiency 30 - 100 ng/mL (75 - 250 nmol/L) Toxicity >100 ng/mL (>250 nmol/L) 37-Usw-246727:04 CALCIFIDIOL (44418) VIT D Comments: PATIENT NOT FASTINGPERFORMED BY: [facility] Rlubyw[address] [id number] Information: [id number] 25 Vitamin D, 25-Hydroxy 19.2 ng/mL (Abnormal) Range: 30.0-100.0 Comments: Vitamin D deficiency has been defined by the [place] of[facility] and an Endocrine Society practice guideline as alevel of serum 25-OH vitamin D less than 20 ng/mL (1,2).The Endocrine Society went on to further define vitamin Dinsufficiency as a level between 21 and 29 ng/mL (2).1. IOM ([place] of Medicine). 2010. Dietary reference intakes for calcium and D. [place]: The National Academies Press.2. Candelaria MF, Janey NC, Yolande GROSS, et al. Evaluation, treatment, and prevention of vitamin D deficiency: an Endocrine Society clinical practice guideline. JCEM. 2010; 96(7):1911-30. 24-Foj-554445:04 Ferritin (37169) Comments: PATIENT NOT FASTINGPERFORMED BY: [facility] Elrclz1475 [address] [facility] [place] [id number] Ferritin, Serum 34 ng/mL (Normal) Range: 15-150 83-Ofh-047482:05 METABOLIC PANEL, COMPREHENSIVE Comments: PATIENT NOT FASTINGPERFORMED BY: [facility] Vzvqnf7375 [address] [facility] [place] [id number] (57587) ALT (SGPT) 10 [iU]/L (Normal) Range: 0-32 [...] Glucose, Serum 86 mg/dL (Normal) Range: 65-99 97-Igt-423797:05 CBC WITH MANUAL DIFF Comments: PATIENT NOT FASTINGPERFORMED BY: [facility]CoCarrier ClinicDireou6803 [address] [id number] Information: [id number],2ND ORDER NO DRAW F EE (96592) Immature Grans (Abs) 0.0 {x10E3/uL} (Normal) Range: [...] 5.2 {x10E3/uL} (Normal) Range: 3.4-10.8 :05 CALCIFIDIOL (33390) VIT D 25 Comments: PATIENT NOT FASTINGPERFORMED BY: [facility]CoCarrier ClinicGzfpeq4673 [address] [id number] Vitamin D, 25-Hydroxy 19.6 ng/mL (Abnormal) Range: 30.0-100.0 Comments: Vitamin D deficiency has been defined by the [place] of[place]icine and an Endocrine Society practice guideline as alevel of serum 25-OH vitamin D less than 20 ng/mL (1,2).The Endocrine Society went on to further define vitamin Dinsufficiency as a level between 21 and 29 ng/mL (2).1. IOM ([place] of Medicine). 2010. Dietary reference intakes for [...] 4.2-5.4 WBC 3.3 K/mm3 (Abnormal) Range: 4.4-11.0 7-Qza-750806:51 CMP GAP 5 (Normal) Range: 5-15 CO2 [...] 7-18 GLU 93 mg/dL (Normal) Range: 70-110 6-Dlq-905985:51 LUZ MARINA 42 ng/mL (Normal) Range: 8-252 [...] CHOL 168 mg/dL (Normal) Comments: <200 mg/dL Kstxprlbk828-952 mg/dL Borderline>240 mg/dL High Risk :51 VITD 38.8 mg/mL (Normal) Comments: Vitamin D 25(OH) Status RangeDeficiency <20 ng/mL (50nmol/L)Insuffciency 20 - 30 ng/mL (50 - 75 nmol/L)Sufficiency 30 - 100 ng/mL (75 - 250 nmol/L)Toxicity >100 ng/mL (>250 nmol/L) :07 Lipase (35976) Comments: PERFORMED BY: [facility] Kfmkkb8686 [address] [id number] Lipase, Serum 67 U/L (Abnormal) Range: 0-59 :07 Amylase (92205) Comments: PERFORMED BY: [facility]6370 [address] [id number] Amylase, Serum 92 U/L (Normal) Range: 31-124 04-Hcw-050976:11 Urinalysis, Office (67311) UA - LEUKOCYTE ESTERASE Negative (Normal) UA - NITRITE Negative (Normal) URINE UROBILINGN YANCI TIMED Normal mg/dL (Normal) UA - PROTEIN Negative mg/dL (Normal) UA - PH 5 (Abnormal) Comments: 5.5 UA - BLOOD Negative (Normal) UA - SPECIFIC GRAVITY 1.015 (Normal) UA - KETONES 15 mg/dL (Abnormal) UA - BILIRUBIN Small (Normal) UA - GLUCOSE Negative (Normal) 96-Spu-038813:28 GRETTA CULTURE-OTHER (49404) Comments: PATIENT NOT FASTINGPERFORMED BY: [place] 94756[address] [id number] Information: SRC:THRT [id number] Result 1 RRF (Normal) Comments: Routine respiratory rajwinder Upper Respiratory Culture Final report (Normal) 57-Fpe-296344:32 Rapid Strep Test, Office (74613) Rapid Strep Test, Office Negative (Normal) 88-Iye-037344:02 Iron Binding Capacity Comments: PATIENT NOT FASTINGPERFORMED BY: [facility] [place] [address] [id number] Information: [id number] (TIBC) (95362) Iron Saturation 6 % (Abnormal) Range: 15-55 Iron, Serum 32 ug/dL (Abnormal) Range: 35-155 UIBC 461 ug/dL (Abnormal) Range: 150-375 Iron Bind.Cap.(TIBC) 493 ug/dL (Abnormal) Range: 250-450 58-Bdn-618203:02 Ferritin (71797) Comments: PATIENT NOT FASTINGPERFORMED BY: [place] 94756[address] [id number] Ferritin, Serum 7 ng/mL (Abnormal) Range: 15-150 4-Zpd-773809:19 PREMA 80 U/L (Normal) Range: 25-115 9-Ozj-316048:19 B12 386 pg/mL (Normal) Range: 211-911 9-Iqc-376359:19 CMP GAP 7 (Normal) Range: 5-15 CO2 [...] 7-18 GLU 96 mg/dL (Normal) Range: 70-110 3-Yuc-972691:19 LUZ MARINA 11 ng/mL (Normal) Range: 8-252 0-Xqg-641149:19 LIPASE 600 U/L (Abnormal) Range: 70-290 9-Hxz-434898:19 LIPID VLDL 19 mg/dL (Normal) Range: 5-40 [...] CHOL 181 mg/dL (Normal) Comments: <200 mg/dL Bnyowigpl063-247 mg/dL Borderline>240 mg/dL High Risk 1-Tvr-001841:19 VITD 16.5 mg/mL (Normal) Comments: Vitamin D [...] 7-18 GLU 79 mg/dL (Normal) Range: 70-110 22-Iav-968217:18 TS Ab SCREEN GEL NEGATIVE (Normal) SCREEN CELL I NEGATIVE (Normal) SCREEN CELL II NEGATIVE (Normal) SCREEN CELL III NEGATIVE (Normal) BLOOD TYPE GEL O POSITIVE (Normal) 41-Yyo-296307:17 Metabolic Panel, Comments: PATIENT NOT FASTINGPERFORMED BY: [facility]Co[facility] ClinicJootzm9877 [address] [id number] Information: [id number] Comprehensive (95426) ALT (SGPT) 13 [iU]/L (Normal) Range: 0-32 [...] s (Normal) Range: 11.9-14.4 :41 VIT D,25 46353 20.3 ng/mL (Abnormal) Range: 30.0-100.0 Comments: Vitamin D deficiency has been defined by the [place] ofMedicine and an Endocrine Society practice guideline as alevel of serum 25-OH vitamin D less than 20 ng/mL (1,2).The Endocrine Society went on to further define vitamin Dinsufficiency as a level between 21 and 29 ng/mL (2).1. IOM ([place] of Medicine). 2010. Dietary reference intakes for calcium and D. [place]: The National Academies Press.2. Candelaria MF, Janey ELIAS, Yolande GROSS, et al. Evaluation, treatment, and prevention of vitamin D deficiency: an Endocrine Society clinical practice guideline. JCEM. 2010; 96(7): 1911-30.Performed at: - [facility] [employer] [id number] Director: Yony San MD, Phone: [phone] at: [facility] [id number] Director: Era Tinoco MD, Phone: [phone] [id number]-Xpf-994516:41 VITD 1,25 38881 44.5 pg/mL (Normal) Range: 10.0-75.0 2-Fop-879152:09 PREMA 87 U/L (Normal) Range: 25-115 7-Rly-782941:09 CBCD ABSOLUTE NEUT 4.0 3/uL (Normal) Range: [...] Please note:LIPASE revised reference range effective 09. 29-Tez-771519:05 LIPID Comments: COMMENTS: FAX RESULTS TO DR [...] 200-240 mg/dL Borderline >240 mg/dL High Risk [id number]-Ayf-799502:54 BILAT SCRN DIGITAL & CAD Radiology Report [...] 11/20/10 0112 Sign by: Bartolome Patel MD [id number]-Bte-[id number]:54 DEXA BONE DENSITY STUDY (HP) Radiology Report See Note (Normal) Comments: CLINICAL:Female, 55 years old. The patient is postmenopausal. EXAMINATION:DUAL ENERGY X-RAY ABSORPTIOMETRY / DEXA. TECHNIQUE:Bone Mineral Density (BMD) measurements of lumbar spine and bila teralhipswer e obtained using a [employer] scanner.. COMPARISON:Comparison is made with prior study [...] on 11/20/1030 Sign by: Bartolome Patel MD 1-Dng-668126:46 DESIRAE DIR SEMI-QL Comments: ORDERED CBC LUZ MARINA MICHAEL ORDERED [...] DNA UAPROTEIN C3 C4 TSH; appt 11/02/10 DECORATOR MANNEQUIN AB 14 AU/mL (Normal) ANTI-TORRES AB 7 [...] ANTI-SCL 70 14 AU/mL (Normal) :46 ANTI-CCP 491948 < 1 {units} (Normal) Comments: ORDERED CBC [...] mg/L (Normal) Comments: ORDERED CBC LUZ MARINA MICHAEL [...] :46 CBCD Comments: ORDERED CBC LUZ MARINA MICHAEL ORDERED [...] AU/mL (Normal) Comments: ORDERED CBC LUZ MARINA TAYLORRCORYE ORDERED CMP CBCD CRP ESR VITD HEPB SURF AB CCPHEPB IRINA AG HEPC DESIRAE RA HEPB CORE IGM UAC SCL70 ANTOINE ANTI JOANTICENT AB SSA SSB DNA UAPROTEIN C3 C4 TSH 6-Qbc-300113:46 COMP C3 6452 125 (Normal) Comments: ORDERED [...] C4 TSH Range: 8-252 :46 HB CORE [id number] SeeNote (Normal) Comments: ORDERED CBC LUZ MARINA FEDRCOREY ORDERED CMP CBCD CRP ESR VITD HEPB SURF AB CCPHEPB IRINA AG HEPC DESIRAE RA HEPB CORE IGM UAC SCL70 ANTOINE ANTI JOANTICENT AB SSA SSB DNA UAPROTEIN C3 C4 TSH Comments: Result: Negative Performed at: - [facility] [address] [id number] Director: Era Tinoco MD, Phone: [phone] at: - [facility] [id number] Director: Yony San MD, Phone: [phone] :46 HBsAg 6510 Comments: ORDERED CBC LUZ [...] of antibody present. :46 HEP C AB 544779 <0.1 (Normal) Comments: ORDERED CBC LUZ MARINA [...] C4 TSH Range: 0.358-3.74 :46 VIT D,25 75683 9.3 ng/mL (Abnormal) Comments: ORDERED CBC LUZ [...] 4.2-5.4 WBC 9.8 K/mm3 (Normal) Range: 4.4-11.0 87-Lzf-673449:10 FERRITIN 21 ng/mL (Normal) Comments: COMMENTS: FAX RESULTS TO DR. CECI Alvarez IVT DRAWRESULTS FAXED 07/17/10 131VLADIMIR MAKI. Range: 8-252 10-Cib-849544:10 IRON 125 ug/dL (Normal) Comments: COMMENTS: FAX RESULTS TO DR. CECI Alvarez IVT DRAWRESULTS FAXED 07/17/10 VLADIMIR SALAMANCA. Range: 50-170 09-Ycn-519940:20 CBC With Differential/Platelet Comments: [facility]MED BY: [facility] [id number] Baso (Absolute) 0.0 {x10E3/uL} (Normal) Range: 0.0-0.2 [...] 11.7-15.0 WBC 5.3 {x10E3/uL} (Normal) Range: 4.0-10.5 86-Cum-718471:20 Comp. Metabolic Panel (14) Comments: PERFORMED BY: [facility] [id number] ALT (SGPT) 18 [iU]/L (Normal) Range: 0-40 [...] Serum 14 ng/mL (Normal) Comments: [facility]FORMED BY: [facility] [id number] 14:20 Range: 13-150 63-Wzf-442068:20 Iron and TIBC Comments: [facility]: [facility] [id number] Iron Saturation 23 % (Normal) Range: 15-55 Iron, Serum 106 ug/dL (Normal) Range: 35-155 UIBC 361 ug/dL (Normal) Range: 150-375 Iron Bind.Cap.(TIBC) 467 ug/dL Range: 250-450 (Abnormal) TSH 1.760 {uIU/mL} Comments: [facility]FORMED BY: [facility] [id number] :20 (Normal) Range: 0.450-4.500 C DIF TOXIN/AG See Note (Normal) Comments: PT COLLECTED SPECIMEN 12/30 @2300 :45 Comments: C. DIFF ANTIGENS NEGATIVE :45 CUL STOOL/SHIG Comments: PT COLLECTED SPECIMEN 12/30 @2300 CULTURE, STOOL See Note (Normal) Comments: COPY OF REPORT SENT TO [facility]10 [id number]. No Salmonella, Shigella or Yersinia [...] parvum,Cyclospora, or Microsporidia.__ TESTING PERFORMED AT [facility]. ORIGINAL REPORT ONFILE IN LAB CONTAINS [...] (Normal) GLU 102 mg/dL (Normal) Range: 70-110 99-Xma-695434:37 OCCULT BLOOD FECES SCREEN (80450) OCCULT BLOOD FECES SCREEN negative (Normal) 27-Pib-500312:03 CBCD,SMEAR DIFF PLT EST SeeNote (Normal) Comments: [...] 4.2-5.4 WBC 4.2 K/mm3 (Abnormal) Range: 4.4-11.0 98-Fcv-278753:03 COMP METABOLIC CL 96 mmol/L (Abnormal) Range: [...] 6.4-8.2 GLU 94 mg/dL (Normal) Range: 70-110 29-Gez-959804:03 FERRITIN 12 ng/mL (Normal) Range: 8-252 14-Pam-194680:03 IRON 128 ug/dL (Normal) Range: 50-170 80-Jvx-118685:03 LIPID LDL 86 mg/dL (Normal) Range: 0-130 VLDL 18 mg/dL (Normal) Range: 5-40 HDL 79 mg/dL (Normal) Comments: Reference RangeHDL <40 mg/dL Low HDL CholesterolHDL >or= 60 mg/dL High HDL Cholesterol CHOL 183 mg/dL (Normal) Comments: <200 mg/dL Sfnnyihdm345-415 mg/dL Borderline>240 mg/dL High Risk TRIG 88 mg/dL (Normal) Comments: Serum Triglycerides Reference IntervalNormal <150 mg/dLBorderline high 150 - 199 mg/dLHigh 200 - 499 mg/ dLVery High > or = 500 mg/dL 15-Ymg-280585:03 VITAMIN B12 342 pg/mL (Normal) Range: 254-1320 10-Apr-20090:00 FLU A+B DIRECT See Note (Normal) Comments: Negative test results should be confirmed by culture. Order Rapid Viral Culture for Influenzae A+B ([id number]) if clinically indicated. INFLUENZA ANTIGEN,DIRECT Presumptive NEGATIVE for Influenza A/B Antigen (See Note) 55-Inv-433334:43 CHEST, PA AND LATERAL Radiology Report See Note (Normal) Comments: Exam Number: [id number] CLINICAL DATAInterstitial lung disease, cough. CHEST PA [...] pneumonia. Possible bronchitis. Reported By: FLORINDA CAMPOS 37-Lcr-309986:45 L/S SPINE,MIN 4 VIEWS Radiology Report See Note (Normal) Comments: Exam Number: [id number] CLINICAL PROBLEMLow back pain post fall. LUMBAR [...] and spondylosis. Reported By: AROLDO TILLMAN M.D. 73-Ycz-724007:44 KNEE,4 OR MORE VIEWS Radiology Report See Note (Normal) Comments: Exam Number: [id number] CLINICAL PROBLEMPain both knees post fall. FOUR [...] patellofemoral compartments. Reported By: AROLDO TILLMAN M.D. 80-Ted-531064:44 KNEE,4 OR MORE VIEWS Radiology Report See Note (Normal) Comments: Exam Number: [id number] CLINICAL PROBLEMLeft knee pain status post fall. [...] Order Rapid Viral Culture for Influenzae A+B ([id number]) if clinically indicated. INFLUENZA ANTIGEN,DIRECT Presumptive NEGATIVE for Influenza A/B Antigen (See Note) 12-Sep-2008 PREMA 66 U/L (Normal) Range: 25-115 12:11 95-Omu-610987:11 CBCD BASO% 0.2 % (Normal) Range: 0-1 [...] 4.2-5.4 WBC 4.2 K/mm3 (Abnormal) Range: 4.4-11.0 41-Gps-487718:11 COMP METABOLIC A/G 1.2 {RATIO} (Normal) Range: [...] T PROT 6.9 g/dL (Normal) Range: 6.4-8.2 21-Ywk-543033:11 ESR SED RATE 3 mm/h (Normal) Range: 0-30 33-Ckc-776981:11 LIPASE 229 U/L (Normal) Range: 114-286 78-Wsi-324481:11 LIPID CHOL 180 mg/dL (Normal) Comments: <200 [...] mg/dL VLDL 19 mg/dL (Normal) Range: 5-40 93-Ufd-169918:11 MG 1.9 mg/dL (Normal) Range: 1.5-2.2 86-Pjj-948273:00 CBCD BASO% 0.3 % (Normal) Range: 0-1 [...] 11.6-14.6 WBC 4.9 K/mm3 (Normal) Range: 4.4-11.0 25-Bnm-772398:00 COMP METABOLIC A/G 1.2 {RATIO} (Normal) Range: [...] T PROT 6.7 g/dL (Normal) Range: 6.4-8.2 39-Iul-874477:00 METHYLM 688523 330 nmol/L (Normal) Range: 73-376 Comments: The reference range for methylmalonic acid has been set at+3sd above the mean for healthy blood bank donors. In theclinical assessment of patients with megaloblastic anemiasa cutoff of +3sd provides gre ater specificity in thediagnosis of the vitamin deficiency states, despite thesacrifice of some sensitivity.Performed At: [facility] [address] [id number] 6-Qxv-787440:55 Lower Respiratory Culture Comments: Clinical Information: SRC:SP PERFORMED BY: [facility] [id number] Lower Respiratory Culture Final report (Normal) Result 1 RRF (Normal) Comments: Routine respiratory rajwinder :3 PREMA 62 U/L (Normal) Range: 25-115 6 :36 DESIRAE-D 989222 DESIRAE-DIRECT 23 AU/mL (Normal) Range: 0-99 Comments: [...] {IU/mL} (Normal) Range: 0.0-13.9 Comments: Performed At: [facility] [place], [place] [id number] :36 TSH 1.76 {uIU/mL} (Normal) Range: 0.34-4.82 :29 HgA1C , Office (49050) HgA1C , Office 5.5 % (Normal) Range: 4.6 - 7.1 :29 Blood Glucose , Office (23993) Blood Glucose , Office 108 (Normal) :51 CHEST, PA AND LATERAL Radiology Report See Note (Normal) Comments: Exam Number: [id number] PA AND LATERAL CHEST HISTORY Being done [...] By: JERARDO BEAULIEU M.D. :57 Rapid Flu (76167 x 2) INFLUENZA IMMUNOASSY DIRECT OPTICAL OBSERV negative (Normal) Comments: aw 53-Hjj-874432:57 LIPID CHOL 186 mg/dL (Normal) Comments: <200 [...] mg/dL VLDL 43 mg/dL (Abnormal) Range: 5-40 12-Okx-926105:57 VITAMIN B12 370 pg/mL (Normal) Range: 211-911 36-Fuc-985520:57 VITD , 83730 69.6 (Normal) Comments: Performed At: [facility] [address] [place], [place] [id number] 16-Jgy-923542:47 CHEST, PA AND LATERAL Radiology Report See Note (Normal) Comments: Exam Number: [id number] PA AND LATERAL CHEST HISTORY Being done [...] perihilar infiltrate. Reported By: JERARDO BEAULIEU M.D. 84-Ejx-859057:08 Upper Respiratory Culture Comments: Clinical Information: SRC: [facility]FORMED BY: [facility] [id number] Result 1 RRF (Normal) Comments: Routine respiratory rajwinder Upper Respiratory Culture Final report (Normal) 1-Ueh-687911:39 CHEST WITHOUT CONTRAST Radiology Report See Note (Normal) Comments: Exam Number: [id number] CT SCAN OF CHEST HISTORYNeoplasm of uncertain [...] PREMA 73 U/L (Normal) Range: 25-115 :01 70-Nbj-196230:01 CBCD BASO% 0.3 % (Normal) Range: 0-1 [...] mg/dL VLDL 15 mg/dL (Normal) Range: 5-40 83-Fie-432477:40 BC No growth in 5 days. Comments: COMMENTS: ROOM 12 (Normal) 40-Mry-012153:20 COMPLETE UA Comments: COMMENTS: ROOM 12HOLD IN [...] WBC 0 SEEN {/hpf} (Normal) Range: 0-5 24-Xbn-702117:10 BMP Comments: COMMENTS: ROOM 12 BUN 8 [...] 3.5-5.1 NA 132 mmol/L (Abnormal) Range: 136-145 38-Veo-488319:10 CBCD Comments: COMMENTS: ROOM 12 BASO% 0.2 [...] (Normal) WBC 10.6 K/mm3 (Normal) Range: 4.4-11.0 01-Rnf-261675:10 LIPASE 212 U/L (Normal) Comments: COMMENTS: ROOM 12 Range: 114-286 02-Qxn-140422:10 LIVER Comments: COMMENTS: ROOM 12 ALB 3.4 g/dL (Normal) Range: 3.4-5.0 ALK P 84 U/L (Normal) Range: 50-136 ALT 30 [iU]/L (Normal) Range: 30-65 AST 20 U/L (Normal) Range: 15-37 D BILI 0.13 mg/dL (Normal) Range: 0.00-0.30 T BILI 0.40 mg/dL (Normal) Range: 0.00-1.00 T PROT 6.3 g/dL (Abnormal) Range: 6.4-8.2 88-Wsa-80479:59 CBCD BASO% 0.3 % (Normal) Range: 0-1 [...] 29 [iU]/L (Abnormal) Range: 30-65 :07 DESIRAE-D 589483 DESIRAE-DIRECT 24 U/mL (Normal) Range: 0-99 Comments: Negative <100 Equivocal 100 - 120 Positive >120Performed At: [facility] [address] [place], [place] [id number] At: [facility] [address] [place], [place] [id number] :07 See Note (Normal) Comments: CHECK BLOOD [...] 5.8 K/mm3 (Normal) Range: 4.4-11.0 : HISTOPL 885421 SeeNote (Normal) Comments: Result: Negative :07 RA LATEX 6502 8.6 {IU/mL} (Normal) Range: 0.0-13.9 48-Fnl-181158:24 CHEST, PA AND LATERAL Radiology Report See Note (Normal) Comments: Exam Number: [id number] CHEST, PA AND LATERAL HISTORYFever and cough. COMPARISONNone. FINDINGSThere is an indwelling Edyh-M-Aawkqyzn on the right side particularlyin the SVC. [...] T PROT 6.5 g/dL (Normal) Range: 6.4-8.2 30-Olq-931315:35 ESR SED RATE 11 mm/h (Normal) Range: 0-30 :02 Urinalysis, Office (19909) Comments: ABn signed CH UA - BILIRUBIN [...] pg/mL (Abnormal) Range: 211-911 Comments: Performed At: [address] [id number] 4-Xts-300620:00 CULTURE, THROAT See Note (Normal) Comments: Normal throat rajwinder isolated. No beta-hemolyticstreptococcus isolated. 2-Kbz-698406:52 Urinalysis, Office (27010) UA - BILIRUBIN Negative (Normal) UA - [...] unspecified site Planned Observations URINALYSIS, W/ MICRO (54177)Indication: Chronic pancreatitis On: :30 Request Metabolic Panel, Comprehensive (35326)Indication: Chronic pancreatitis On: :03 Request CBC WITH MANUAL DIFF (50654)Indication: Chronic pancreatitis On: :03 Request LIPASE (52777)Indication: Chronic pancreatitis On: :03 Request AMYLASE (41524)Indication: Chronic pancreatitis On: :03 Request AMYLASE (14820)Indication: Chronic pancreatitis On: 46-Jpn-526230:48 Request LIPASE (78390)Indication: Chronic pancreatitis On: :48 Request METABOLIC PANEL, COMPREHENSIVE (67137)Indication: Chronic pancreatitis On: 26-Eic-624545:47 Request LIPOPROTEIN, BLD, BY NMR (68051)Indication: Hyperlipidemia On: :47 Request Ferritin (59641)Indication: Iron deficiency anemia due to dietary causes On: 28-Qld-817044:51 Request LIPASE (36560)Indication: Chronic pancreatitis On: :51 Request AMYLASE (20533)Indication: Chronic pancreatitis On: :50 Request URINALYSIS (36303)Indication: Chronic pancreatitis On: :50 Request CBC WITH MANUAL DIFF (11401)Indication: Chronic pancreatitis On: :50 Request Metabolic Panel, Comprehensive (34863)Indication: Chronic pancreatitis On: :50 Request PT (PROTHROMBIN TIME) (18868)Indication: PFO (patent foramen ovale) On: 44-Oop-755954:36 Request Vitamin B-12 (cyanocobalamin) (40078)Indication: S/P gastric bypass On: :21 Request Ferritin (96690)Indication: Iron deficiency anemia due to dietary causes On: 8-Ubn-539181:21 Request CBC, Platelets & Auto Diff (01663)Indication: Chronic pancreatitis On: : Request Metabolic Panel, Comprehensive (22159)Indication: Chronic pancreatitis On: 8-Ltt-395047:21 Request CALCIFIDIOL (44860) VIT D 25Indication: Vitamin D deficiency, unspecified On: 77-Ukm-65952:55 Request Comments: re check in 8 weeks Sed Rate Erythrocyte (78763)Indication: Fever On: 93-Qhr-883977:39 Request URINALYSIS (90179)Indication: Fever On: :33 Request URINE GRETTA CULTURE-IDENTIFICATN (64716)Indication: Fever On: 61-Qws-096734:33 Request CALCIFIDIOL (17716) VIT D 25Indication: Vitamin D deficiency, unspecified On: 02-Lfe-206514:32 Request CBC, Platelets & Auto Diff (22696)Indication: Iron deficiency anemia due to dietary causes On: 25-Arw-441399:32 Request Ferritin (52470)Indication: Iron deficiency anemia due to dietary causes On: 38-Pvc-973786:32 Request GRETTA CULTURE-BLOOD (75657)Indication: Fever On: 35-Vqt-136141:30 Request Comments: ONE FROM PORT AND ONE PERIPHERAL CALCIFIDIOL (94200) VIT D 25Indication: Vitamin D deficiency, unspecified On: 72-Xln-431432:24 Request FERRITIN (94951)Indication: Iron deficiency anemia due to dietary causes On: 75-Tlx-055780:22 Request EBV ANTIBODY VCA/EA 91328 (73766)Indication: Fatigue On: 08-Ero-513564:31 Request Comments: please do VCA IGM Ferritin (82487)Indication: Iron deficiency anemia due to dietary causes On: 06-Ver-020468:00 Request CALCIFIDIOL (31011) VIT D 25Indication: Vitamin D deficiency, unspecified On: 13-Fjg-129727:00 Request EBV Panel (75288)Indication: Pharyngitis, acute On: 17-Ibx-621472:58 Request Influenza A&B Viral Culture (54282)Indication: Fever On: :34 Request GRETTA CULTURE-OTHER (98333)Indication: Fever On: :33 Request Rapid Strep Test, Office (59008)Indication: Fever On: :18 Request Troponin I (49081)Indication: Chest pain at rest On: :43 Request Comments: pls add to labs already done MYOGLOBIN (19631)Indication: Chest pain at rest On: : Request CPK MB FRACTION (65230)Indication: Chest pain at rest On: : Request Sed Rate Erythrocyte (09217)Indication: Chest pain at rest On: : Request CBC WITH MANUAL DIFF (22749)Indication: Chest pain at rest On: : Request CALCIFEDIOL (30075)Indication: OTHER AND UNSPECIFIED POSTSURGICAL NONABSORPTION On: :12 Request PARATHORMONE (54401)Indication: OTHER AND UNSPECIFIED POSTSURGICAL NONABSORPTION On: : Request Magnesium (03337)Indication: OTHER AND UNSPECIFIED POSTSURGICAL NONABSORPTION On: :12 Request Phosphorus (28606)Indication: OTHER AND UNSPECIFIED POSTSURGICAL NONABSORPTION On: : Request IRON (80425)Indication: OTHER AND UNSPECIFIED POSTSURGICAL NONABSORPTION On: :12 Request FERRITIN (19472)Indication: OTHER AND UNSPECIFIED POSTSURGICAL NONABSORPTION On: :12 Request ZINC, BLOOD (20465)Indication: OTHER AND UNSPECIFIED POSTSURGICAL NONABSORPTION On: :12 Request VITAMIN A (44677)Indication: OTHER AND UNSPECIFIED POSTSURGICAL NONABSORPTION On: :12 Request TSH (32436)Indication: OTHER AND UNSPECIFIED POSTSURGICAL NONABSORPTION On: :12 Request MAGNESIUM (31822)Indication: OTHER AND UNSPECIFIED POSTSURGICAL NONABSORPTION On: :12 Request Folic Acid Serum (47663)Indication: OTHER AND UNSPECIFIED POSTSURGICAL NONABSORPTION On: :12 Request CHROMIUM (28773)Indication: OTHER AND UNSPECIFIED POSTSURGICAL NONABSORPTION On: :12 Request ASSAY, HOMOCYSTINE (82903)Indication: OTHER AND UNSPECIFIED POSTSURGICAL NONABSORPTION On: :12 Request Metabolic Panel, Basic (17811)Indication: Abdominal pain On: :11 Request Comments: do on this tuesday OSMOLALITY URINE (70113)Indication: Abdominal pain On: :11 Request Comments: today in ambulatory OSMOLALITY BLOOD (04654)Indication: Abdominal pain On: :11 Request Comments: today in ambulatory Lipase (70240)Indication: Abdominal pain On: :11 Request Comments: today in ambulatory Amylase (34832)Indication: Abdominal pain On: :11 Request Comments: today in ambulatory CBC, Platelets & Auto Diff (64183)Indication: Abdominal pain On: 30-Mcq-887734:11 Request Comments: today in ambulatory Metabolic Panel, Comprehensive (24669)Indication: Abdominal pain On: 12-Cti-728213:10 Request Comments: today in ambulatory AMYLASE (94694)Indication: Abdominal pain On: 6-Aqs-668566:12 Request LIPASE (65878)Indication: Abdominal pain On: 5-Tdp-889593:12 Request Ferritin (35200)Indication: Iron deficiency anemia due to dietary causes On: :20 Request Comments: in six months (approximately) Vitamin B-12 (cyanocobalamin) (84154)Indication: Other vitamin B12 deficiency anemia On: 18-Yns-420792:19 Request Comments: in six months (approximately) Lipid Panel (24203)Indication: High blood triglycerides On: :19 Request Comments: in six months (approximately) Metabolic Panel, Comprehensive (55805)Indication: Chronic pancreatitis On: 74-Yed-612333:19 Request Comments: in six months (approximately) Vitamin B-12 (cyanocobalamin) (90068)Indication: Other vitamin B12 deficiency anemia On: 80-Asr-134964:27 Request METABOLIC PANEL, COMPREHENSIVE (52516)Indication: High blood triglycerides On: :19 Request LIPID PANEL (99662)Indication: High blood triglycerides On: :19 Request CBC, Platelets & Auto Diff (50931)Indication: Iron deficiency anemia due to dietary causes On: :15 Request Ferritin (50853)Indication: Iron deficiency anemia due to dietary causes On: :15 Request Iron (81435)Indication: Iron deficiency anemia due to dietary causes On: 52-Qaj-951170:29 Request Comments: recheck in 4 weeks pt needs to be fasting Iron Binding Capacity (TIBC) (93242)Indication: Iron deficiency anemia due to dietary causes On: :29 Request Comments: recheck in 4 weeks pt needs to be fasting Ferritin (16118)Indication: Iron deficiency anemia due to dietary causes On: 58-Qkd-822132:28 Request Comments: recheck in 4 weeks pt needs to be fasting METABOLIC PANEL, COMPREHENSIVE (74858)Indication: High blood triglycerides On: 82-Bhk-408053:33 Request LIPID PANEL (69876)Indication: High blood triglycerides On: 75-Idg-129129:33 Request CBC (Auto) (41988)Indication: Iron deficiency anemia due to dietary causes On: 18-Vzn-144012:33 Request Ferritin (62871)Indication: Iron deficiency anemia due to dietary causes On: 57-Lqr-127682:33 Request Vitamin B-12 (cyanocobalamin) (38940)Indication: Other vitamin B12 deficiency anemia On: 89-Qli-017998:32 Request CALCIFIDIOL (68255) VIT D 25Indication: Vitamin D deficiency, unspecified On: 57-Pnp-537549:32 Request CULTURE, SPUTUM (36787)Indication: Cough On: 4-Rad-204558:36 Request Iron (57882)Indication: Iron deficiency anemia due to dietary causes On: 54-Nvr-726980:53 Request CALCIFIDIOL (72370) VIT D 25Indication: Vitamin D deficiency, unspecified On: 72-Owe-806111:02 Request CBC (Auto) (55855)Indication: Iron deficiency anemia due to dietary causes On: 0-Qag-647990:49 Request Metabolic Panel, Comprehensive (92929)Indication: Chronic pancreatitis On: 1-Wbp-855650:49 Request Lipid Panel (72822)Indication: High blood triglycerides On: 0-Meu-904211:49 Request Ferritin (52102)Indication: Iron deficiency anemia due to dietary causes On: 1-Imu-759738:48 Request CALCIFEDIOL (26045)Indication: Vitamin D deficiency, unspecified On: :48 Request Vitamin B-12 (cyanocobalamin) (64920)Indication: Other vitamin B12 deficiency anemia On: 0-Xzq-650772:47 Request Lipase (69205)Indication: Chronic pancreatitis On: :47 Request Amylase (81256)Indication: Chronic pancreatitis On: 7-Pui-911681:47 Request D-Dimer (65161)Indication: Anemia On: 58-Biw-664728:28 Request Comments: stat Metabolic Panel, Comprehensive (86134)Indication: Anemia On: 25-Iko-401234:16 Request TYPE & SCREEN GEL (51792)Indication: Anemia On: 79-Yen-775797:16 Request CBC with manual diff (17755)Indication: Anemia On: 80-Auc-520343:15 Request Lipase (10370)Indication: Chronic pancreatitis On: 60-Vgz-561159:30 Request Amylase (24059)Indication: Chronic pancreatitis On: 16-Cxh-112851:30 Request Ferritin (58985)Indication: Iron deficiency anemia due to dietary causes On: 42-Pid-021666:28 Request LIPASE (49689)Indication: Chronic pancreatitis On: 8-You-698733:21 Request AMYLASE (75468)Indication: Chronic pancreatitis On: 5-Jcp-638120:21 Request Lipase (48875)Indication: Chronic pancreatitis On: 85-Jrc-474605:12 Request Amylase (31750)Indication: Chronic pancreatitis On: 85-Hfn-931315:12 Request MICROALBUMIN: CREATININE RATIO (58251) AND (22600)Indication: Chronic pancreatitis On: 70-Glf-140488:12 Request METABOLIC PANEL, COMPREHENSIVE (95015)Indication: Chronic pancreatitis On: 47-Kfy-172770:12 Request LIPID PANEL (37281)Indication: High blood triglycerides On: 80-Jzl-928326:12 Request CBC WITH MANUAL DIFF (71136)Indication: Chronic pancreatitis On: 84-Jcx-229383:12 Request Metabolic Panel, Comprehensive (21513)Indication: Chronic pancreatitis On: :46 Request Lipase (88569)Indication: Chronic pancreatitis On: :46 Request Amylase (83979)Indication: Chronic pancreatitis On: :46 Request CALCIFIDIOL (78003) VIT D 25Indication: Vitamin D deficiency, unspecified On: :43 Request Ferritin (09208)Indication: Iron deficiency anemia due to dietary causes On: :43 Request CBC (Auto) (87011)Indication: Iron deficiency anemia due to dietary causes On: : Request PT (Prothrobim Time) (88260)Indication: AFTERCARE, LONG-TERM USE, ANTICOAGULANTS On: :28 Request Lipase (60864)Indication: Chronic pancreatitis On: : Request Amylase (59677)Indication: Chronic pancreatitis On: :25 Request Metabolic Panel, Comprehensive (82211)Indication: Chronic pancreatitis On: : Request CBC (Auto) (88662)Indication: Leukopenia On: :25 Request Lipid Panel (85363)Indication: High blood triglycerides On: :25 Request Iron (04219)Indication: Iron deficiency anemia due to dietary causes On: :23 Request Ferritin (57600)Indication: Iron deficiency anemia due to dietary causes On: :23 Request Vitamin B-12 (cyanocobalamin) (12172)Indication: Other vitamin B12 deficiency anemia On: :23 Request CALCIFIDIOL (58801) VIT D 25Indication: Vitamin D deficiency, unspecified On: :23 Request Lipase (64991)Indication: Chronic pancreatitis On: :21 Request Amylase (26226)Indication: Chronic pancreatitis On: 4-Srx-579754:21 Request Comments: pls add to labs already drawn Metabolic Panel, Comprehensive (29595)Indication: Chronic pancreatitis On: :07 Request Ferritin (69180)Indication: Iron deficiency anemia due to dietary causes On: 8-Fdu-586789:07 Request CBC (Auto) (94347)Indication: Chronic pancreatitis On: 4-Wxt-946083:07 Request LIPID PANEL (34353)Indication: High blood triglycerides On: 8-Rlq-126159:15 Request Iron Binding Capacity (TIBC) (07387)Indication: Anemia On: :53 Request Iron (54536)Indication: Anemia On: :53 Request Ferritin (71533)Indication: Anemia On: :53 Request CBC (Auto) (29068)Indication: Anemia On: :53 Request Metabolic Panel, Comprehensive (16808)Indication: Chronic pancreatitis On: :53 Request OVA & PARASITE DIR SMEAR (60554)Indication: Diarrhea On: :37 Request LEUKOCYTE COUNT, FECAL (21121)Indication: Diarrhea On: :37 Request C.Difficile, Stool (80856)Indication: Diarrhea On: :37 Request GRETTA CULTURE-STOOL (31697)Indication: Diarrhea On: :37 Request Vitamin B-12 (cyanocobalamin) (05715)Indication: Other vitamin B12 deficiency anemia On: 72-Ong-168278:05 Request Iron (97044)Indication: Anemia On: 79-Wpa-637308:05 Request Ferritin (49186)Indication: Anemia On: 99-Iqg-640823:05 Request METABOLIC PANEL, COMPREHENSIVE (50950)Indication: High blood triglycerides On: 84-Zrp-887351:05 Request CBC WITH MANUAL DIFF (75951)Indication: Anemia On: 36-Pgr-247611:05 Request LIPID PANEL (13866)Indication: High blood triglycerides On: 02-Wxx-130518:04 Request nasal influenza swab (78994) B6Lrgleasyjb: Unspecified Diagnosis On: 1-Muc-630738:29 Request Rapid Flu (63049 x 2)Indication: Fever On: 4-Juy-586605:44 Request Lipid Panel (48279)Indication: High blood triglycerides On: 68-Nnu-817537:53 Request CBC (Auto) ([id number])Indication: Chronic pancreatitis On: 20-Mgm-925038:51 Request Metabolic Panel, Comprehensive (00806)Indication: Chronic pancreatitis On: :51 Request Ferritin (69375)Indication: Anemia On: :51 Request Iron (88185)Indication: Anemia On: :51 Request Vitamin B-12 (cyanocobalamin) (03820)Indication: Other vitamin B12 deficiency anemia On: 96-Wnw-231862:51 Request Lipid Panel (73787)Indication: Malabsorption syndrome On: 37-Vsa-618124:39 Request Sed Rate Erythrocyte (49102)Indication: Chronic pancreatitis On: :35 Request CBC, Platelets & Auto Diff (01106)Indication: Chronic pancreatitis On: :35 Request Magnesium (26042)Indication: Chronic pancreatitis On: :35 Request Lipase (28894)Indication: Chronic pancreatitis On: :35 Request Amylase (23817)Indication: Chronic pancreatitis On: :35 Request Metabolic Panel, Comprehensive (21054)Indication: Chronic pancreatitis On: 71-Dti-365887:35 Request CBC (Auto) ([id number])Indication: Abdominal pain, acute, generalized On: 12-Hpc-608547:29 Request Metabolic Panel, Comprehensive (71741)Indication: Abdominal pain, acute, generalized On: 63-Uaa-786822:29 Request Methylmalonic acid, serum 07276Dnjwpwbmsz: Other vitamin B12 deficiency anemia On: 00-Tup-703536:29 Request CULTURE, SPUTUM (15597)Indication: Cough On: 3-Blo-794998:42 Request Lipase (37241)Indication: Acute pancreatitis On: 7-Fik-987917:59 Request Amylase (51996)Indication: Acute pancreatitis On: 2-Dfv-530222:59 Request DESIRAE (ANTINUCLEAR ANTIBODY) (49236)Indication: Pain in unspecified joint On: 0-Btq-059537:48 Request C-REACTIVE PROTEIN (16419)Indication: Pain in unspecified joint On: 4-Ycw-222920:48 Request CBC WITH MANUAL DIFF (56599)Indication: Pain in unspecified joint On: 1-Vmm-849335:48 Request METABOLIC PANEL, COMPREHENSIVE (98332)Indication: Pain in unspecified joint On: 5-Bps-958885:48 Request RHEUMATOID FACTOR-QUANT (79566)Indication: Pain in unspecified joint On: 6-Ulb-555675:48 Request SED RATE ERYTHROCYTE (97650)Indication: Pain in unspecified joint On: 0-Kci-104569:48 Request TSH (48528)Indication: Pain in unspecified joint On: 2-Qfv-856281:48 Request GRETTA CULTURE-OTHER (46567)Indication: Pharyngitis, acute On: 32-Tvs-243833:12 Request Rapid Strep Test, Office (74446)Indication: Pharyngitis, acute On: 47-Fjd-502163:12 Request Comments: negative VITAMIN D, 1, 25-DIHYDROXY (12027)Indication: Chronic pancreatitis On: 70-Vle-577152:46 Request Vitamin B-12 (cyanocobalamin) (27438)Indication: Other vitamin B12 deficiency anemia On: 38-Jco-634105:43 Request Lipase (59528)Indication: Chronic pancreatitis On: 39-Vkr-348910:35 Request Amylase (28774)Indication: Chronic pancreatitis On: :34 Request CBC (Auto) (56041)Indication: Chronic pancreatitis On: :34 Request Metabolic Panel, Comprehensive (53084)Indication: Chronic pancreatitis On: :34 Request Lipid Panel (76828)Indication: Chronic pancreatitis On: 89-Bmt-656893:34 Request Comments: standing order every 3 months Metabolic Panel, Comprehensive (47261)Indication: Edema On: 77-Kec-747734:13 Request CBC, Platelets & Auto Diff (60988)Indication: Edema On: 43-Jav-632192:13 Request PTT (Activated Partial Thromboplastin Time) (91736)Indication: Edema On: :12 Request PT (Prothrobim Time) (01505)Indication: Edema On: 37-Brj-318583:12 Request Lipase (22035)Indication: pancreatitis On: :32 Request Amylase (69533)Indication: pancreatitis On: :32 Request CBC (Auto) ([id number])Indication: pancreatitis On: :32 Request Metabolic Panel, Comprehensive (83885)Indication: pancreatitis On: :32 Request Metabolic Panel, Comprehensive (36103)Indication: Fever On: :57 Request GRETTA CULTURE-BLOOD (15982)Indication: Fever On: 24-Dvc-252212:56 Request Comments: one from peripheral GRETTA CULTURE-BLOOD (00546)Indication: Fever On: :56 Request Comments: one from port Sed Rate Erythrocyte (58128)Indication: Fever On: 88-Hyp-106465:56 Request CBC, Platelets & Auto Diff (19286)Indication: Fever On: :56 Request Urinalysis, Office (73412)Indication: Fever On: :56 Request GRETTA CULTURE-OTHER (42790)Indication: Fever On: 5-Cjm-622746:53 Request Rapid Strep Test, Office (58096)Indication: Fever On: 1-Dge-535889:52 Request CBC, Platelets & Auto Diff ([id number])Indication: Chronic pancreatitis On: 9-Sgn-758306:46 Request Lipase (98482)Indication: Chronic pancreatitis On: 7-Pup-289127:46 Request Amylase (97057)Indication: Chronic pancreatitis On: 8-Jms-813365:46 Request Metabolic Panel, Comprehensive (26134)Indication: Chronic pancreatitis On: 0-Ore-734197:46 Request FERRITIN (41225)Indication: Anemia On: 9-Jbc-247795:22 Request VITAMIN B-12 (CYANOCOBALAMIN) (05660)Indication: Other vitamin B12 deficiency anemia On: 9-Ura-144454:22 Request LIPASE (30025)Indication: Acute pancreatitis On: 50-Ave-082305:22 Request ALBUMIN SERUM (73270)Indication: Acute pancreatitis On: 73-Yth-966864:22 Request CBC (AUTO) (05734)Indication: Acute pancreatitis On: :21 Request METABOLIC PANEL, BASIC (91096)Indication: Abnormal blood chemistry On: 84-Qwe-924679:21 Request Planned Encounters Medical; TIMO 4 Month Fu - On: 01-Sep-2018 13:30 [facility] Dima DURAN, Sarah Pizano MD, Sarah Rebollar Planned Procedures Flu Vaccine (Quadrivalent) On: 31-Mar-2018 Intent 81741Pb: COMFORT Gallegos Comments: Lot #:[id number] date: 6-56-47Tqqzop given:0.5mlRoute: IMSite given:L DltdGiven by: ElaineVIS and ABN signed [employer] SCREENING DIGITAL TOMOSYNTHESIS On: 20-Dec-2017 Intent OF BREAST (39423)By: Sarah Pizano MD, MD, Dana M DEXA SCAN AXIAL SKELETON On: 20-Dec-2017 Intent (45391)By: Sarah Pizano MD, MD, Dana M SCREENING DIGITAL TOMOSYNTHESIS On: 29-Apr-2017 Intent OF BREAST (64520)By: Sarah Pizano MD, MD, Dana M Flu Vaccine (Quadrivalent) On: 29-Apr-2017 Intent 16710Cc: Sarah Pizano MD Comments: lot: [id number]: 12/19/ite/route: L kelin, IMamt: 0.5mlVIS and ABN signed when applicableChelsea, [facility] Sarah Pizano MD CT - Abdomen & Pelvis (IV On: 01-Oct-2016 Intent Contrast Needed)By: Dima DURAN, Comments: attentinon pancrease follow up on kidney cyst. 07-20 creat 0.76 Sarah Ghosh MD Flu Vaccine (Quadrivalent) On: 17-May-2016 Intent 02723Li: Sarah Pizano MD Comments: FLUlot: [id number]:11/17site:Lt deltoidroute:IMdose:.5mlDEMICK, MA Sarah Pizano MD Aerosol Treatment (68848)By: On: 27-Apr-2016 Intent SlaKacey olivas LPN DEXA SCAN AXIAL SKELETON On: 09-Mar-2016 Intent (19963)By: Sarah Pizano MD, MD, Dana M MAMMOGRAM, SCREENING, BOTH On: 09-Mar-2016 Intent BREAST (94165)By: Sarah Pizano MD, MD, Dana M DEXA SCAN AXIAL SKELETON On: 15-Jul-2015 Intent (49182)By: Sarah Pizano MD, MD, Dana M MAMMOGRAM, SCREENING, BOTH On: 15-Jul-2015 Intent BREAST (33627)By: Sarah Pizano MD, MD, Dana M Aerosol Treatment (30459)By: On: 08-Jul-2015 Intent Pamella Saavedra CNP Aerosol Treatment (34657)By: On: 08-Jul-2015 Intent Slarb HOME HEALTH CARE COORDINATOR, Kacey XR HIP RIGHT COMPLETE (88516)By: On: 30-Jun-2015 Intent Sarah Pizano MD, MD, Comments: right hip Sarah Rebollar Radiology - PelvisBy: Dima On: 24-Jun-2015 Intent Sarah DURAN MD, Dana M Comments: and right hip xray Venous Doppler - RightBy: On: 24-Jun-2015 Intent Sarah Pizano MD, MD, Comments: leg Sarah Rebollar Flu Vaccine (Quadrivalent) On: 15-Apr-2015 Intent 02178Dg: Sarah Pizano MD Comments: lot [id number]: 01/01/2016site/route L kelin, IMamt 0.5mlVIS and ABN signed when applicableChelsea, CMAFM4 Sarah Pizano MD Radiology - ChestBy: Quentin ARGUETA, On: 07-Feb-2015 Intent Adeola Aerosol Treatment (78598)By: On: 07-Feb-2015 Intent Ailyn Aguilar Solu -Medrol Injection, 125 mg On: 05-Feb-2015 Intent (J2930)By: Pamella Saavedra CNP Comments: lot:[id number]:route:IMdose:125MGsite: R glutGiven by: FOX Angeles Solu -Medrol Injection, 125 mg On: 04-Feb-2015 Intent (J2930)By: Pamella Saavedra CNP Aerosol Treatment (80857)By: On: 04-Feb-2015 Intent Pamella Saavedra CNP MAMMOGRAM, SCREENING, BOTH On: 14-Jan-2015 Intent BREAST (69174)By: Sarah Pizano MD, MD, Dana M Prevnar 13 (69565)By: Dima On: 16-Jul-2014 Intent Sarah DURAN MD, Dana M ADMINISTRATION OF INFLUENZA On: 22-Apr-2014 Intent VIRUS VACCINE (G0008)By: Sarah Pizano MD, MD, Dana M FLU VAC, SPLIT, >3 YEARS, On: 22-Apr-2014 Intent INTRAMUSC (33209)By: Dima DURAN, Comments: Lot #:[id number] date:mount given:0.5mlRoute: IMSite given:left deltoid Given by: Sarah Mota MD Phenergan Injection, up to 50 mg On: 12-Dec-2013 Intent (J2550)By: Pamella Saavedra CNP MAMMOGRAM, SCREENING, BOTH On: 25-Sep-2013 Intent BREASTS (29113)By: Sarah Pizano MD, MD, Dana M Eprescribed prescriptions On: 25-Sep-2013 Intent (G8553)By: Sarah Pizano MD, MD, Dana M Aerosol Treatment (93331)By: On: 05-Sep-2013 Intent [address]ella Saavedra CNP CT - Abdomen & Pelvis (IV On: 04-Jun-2013 Intent Contrast Needed)By: Sarah Pizano MD, MD, Dana M DXA, BONE DENSITY, AXIAL On: 04-Jun-2013 Intent SKELETON (55016)By: Dima DURAN, Comments: postmenapausal Sarah Ghosh MD MAMMOGRAM, SCREENING, BOTH On: 04-Jun-2013 Intent BREASTS (38987)By: Sarah Pizano MD, MD, Dana M Pulse Oximetry (43831)By: On: 04-Jun-2013 Intent COMFORT Gallegos Eprescribed prescriptions On: 14-May-2013 Intent (G8553)By: Melba Malloy ELECTROCARDIOGRAM, COMPLETE On: 26-Dec-2012 Intent (ECG) (25583)By: Sarah Pizano MD, MD, Dana M Eprescribed prescriptions On: 26-Dec-2012 Intent (G8553)By: Makenzie Allred LPN MAMMOGRAM, SCREENING, BOTH On: 24-Aug-2012 Intent BREASTS (67252)By: Dima DURAN, Sarah Pizano MD, Sarah Rebollar Pulse Oximetry (55217)By: On: 29-Jun-2012 Intent COMFORT Gallegos Radiology - Chest- PA and LatBy: On: 01-Jun-2012 Intent Sofia Younger DO Eprescribed prescriptions On: 01-Jun-2012 Intent (G8553)By: Kim Garces LPN FLU VAC, SPLIT, >3 YEARS, On: 28-Apr-2012 Intent INTRAMUSC (35494)By: Balaji, Comments: Lot:[id number]:12.31.12Dose:prefilledRoute:IMSite:L DltdGiven By:BARRY Garcia IMMUNIZ ADMNIN, 1 VAC, On: 28-Apr-2012 Intent SNGL/COMBO (99242)By: Radha Carpio TDAP VACCINE >7 IM (13107)By: On: 24-Nov-2011 Intent Long Makenzie ABBOTT Comments: Lot #[id number]- 11.13Site- L arm, ImDose prefilledgiven by: Makenzie MAMMOGRAM, SCREENING, BOTH On: 01-Nov-2011 Intent BREASTS (70088)By: Dima DURAN, Sarah Ghosh MD Aerosol Treatment (69655)By: On: 14-Oct-2011 Intent Sofia Younger DO Comments: [...] SPLIT, >3 YEARS, On: 20-Apr-2011 Intent INTRAMUSC (42022)By: Cayden Comments: Lot #[id number]-4/30/12Site-left deltoidgiven by: C. SCAR Rodarte LPN, Connie IMMUNIZ ADMNIN, 1 VAC, On: 20-Apr-2011 Intent SNGL/COMBO (33505)By: Chery Rodarte LPN B 12 Injection, 1000 mcg On: 22-Mar-2011 Intent (J3420)By: COMFORT Gallegos DRAIN/INJECT MAJOR JOINT OR On: 22-Mar-2011 Intent BURSA ()By: COMFORT Gallegos Comments: Lot #:[id number] date: given:2ml Route: intra articular Site given:bilateral knees Given by: Dr. Pizano Pulse Oximetry (68805)By: Janieesdilshad On: 19-Mar-2011 Intent LIGHT BULB ASSEMBLER, Adeola Aerosol Treatment (21665)By: On: 19-Mar-2011 Intent Ciesa LIGHT BULB ASSEMBLER, Adeola DRAIN/INJECT MAJOR JOINT OR On: 12-Mar-2011 Intent BURSA ()By: COMFORT Gallegos Comments: Lot #:[id number] date: given:2ml Route: intra articular Site given:bilateral knees Given by: Dr. Pizano DRAIN/INJECT MAJOR JOINT OR On: 04-Mar-2011 Intent BURSA ()By: COMFORT Gallegos Comments: Lot #:[id number] date: given:2mlRoute: intra articular Site given:Bilateral knees Given by: Dr. Pizano injection #1 Kenalog Injection, 10 mgm On: 08-Feb-2011 Intent (J3301)By: Sarah Pizano MD Comments: x 8 Sarah Pizano MD Breast Ultrasound - LeftBy: On: 08-Feb-2011 Intent Sarah Pizano MD, MD, Dana M DXA, BONE DENSITY, AXIAL On: 02-Nov-2010 Intent SKELETON (42493)By: Sarah Pizano MD, MD, Dana M MAMMOGRAM, SCREENING, BOTH On: 02-Nov-2010 Intent BREASTS (33772)By: Sarah Pizano MD, MD, Dana M FLU VAC, SPLIT, >3 YEARS, On: 17-Jun-2010 Intent INTRAMUSC (04754)By: Cayden Comments: Lot #[id number] 4PExp-4/11Site-right deltoidgiven by:Chery PAVON LPN IMMUNIZ ADMNIN, 1 VAC, On: 17-Jun-2010 Intent SNGL/COMBO (05804)By: Chery Rodarte LPN DXA, BONE DENSITY, AXIAL On: 30-Sep-2009 Intent SKELETON (01609)By: Dima DURAN, Sarah Pizano MD, Sarah Rebollar MAMMOGRAM, SCREENING, BOTH On: 30-Sep-2009 Intent BREASTS (75719)By: Dima DURAN, Sarah Ghosh MD B 12 Injection, 1000 mcg On: 30-Sep-2009 Intent (J3420)By: COMFORT Gallegos Pulse Oximetry (21599)By: Quentin On: 09-Apr-2009 Intent LIGHT BULB ASSEMBLER, Adeola Aerosol Treatment (85087)By: On: 09-Apr-2009 Intent Ciesa LIGHT BULB ASSEMBLER, Adeola FLU VAC, SPLIT, >3 YEARS, On: 26-Mar-2009 Intent INTRAMUSC (10799)By: Lisa HERRON, Andie IMMUNIZ ADMNIN, 1 VAC, On: 26-Mar-2009 Intent SNGL/COMBO (77260)By: Lisa RN, Comments: Lot #: [id number] date: mount given: 0.5 mlRoute: IMSite given: left deltoidGiven by: SCAR Montenegro INJECTION, VITAMIN B-12 On: 07-Feb-2009 Intent CYANOCOBALAMIN, UP TO 1000 MCG Comments: Lot #[id number] date:mount given:1mlSite given: right deltoidGiven by:Judith. (Special Coverage Instructions Apply. See CIM: 45-4 and MCM: 2049) (J3420)By: COFMORT Gallegos Pulse Oximetry (39108)By: Ceci On: 04-Dec-2008 Intent DORosa Maria Comments: post kekmayupf45% Aerosol Treatment (66098)By: On: 04-Dec-2008 Intent Fast DO Rosa Maria A Comments: done-aw B 12 Injection, 1000 mcg On: 04-Dec-2008 Intent (J3420)By: Tonia Garcia Comments: Lot #[id number]-05/2010Site-right mmjyurhThtb3789rdr/1mlgiven by Debbie Lei LPN Pulse Oximetry (78484)By: On: 04-Dec-2008 Intent Tonia Garcia Comments: 91% [...] Intent (J3420)By: COMFORT Gallegos Comments: Lot #[id number]-05/2010Site-right raudmeaYvop7565ois/1mlgiven by Debbie Lei LPN DRAIN/INJECT MAJOR JOINT OR On: 09-Oct-2008 Intent BURSA ()By: COMFORT Gallegos Comments: Lot #:[id number] date:mount given:Route: intra articular Site given:bilateral knees Given by: Dr. Pizano DRAIN/INJECT MAJOR JOINT OR On: 01-Oct-2008 Intent BURSA ()By: COMFORT Gallegos Comments: Lot #:[id number] date: given:2.5ml Route:intra-articular Site given:Bilateral knees Given by: Dr. Pizano DRAIN/INJECT MAJOR JOINT OR On: 24-Sep-2008 Intent BURSA ()By: COMFORT Gallegos Comments: Lot #:[id number] date: Amount given:2.5 mlRoute: intra-articular Site given:bilateral knees Given by: Dr. Pizano DRAIN/INJECT MAJOR JOINT OR On: 17-Sep-2008 Intent BURSA ()By: COMFORT Gallegos Comments: Lot #:[id number] date:mo given:2 grams Route: Intra articular Site given: bilateral knees Given by: Dr. Pizano DRAIN/INJECT MAJOR JOINT OR On: 13-Sep-2008 Intent BURSA (93298)By: COMFORT Gallegos Comments: Lot #:[id number] date:05-10 Amount given:2.5MLRoute: INTRA ARTICULAR Site given:bilateral knees Given by: Dr. Pizano B 12 Injection, 1000 mcg On: 10-Sep-2008 Intent (J3420)By: COMFORT Gallegos B 12 Injection, 1000 mcg On: 29-Jul-2008 Intent (J3420)By: Denise Collazo Comments: Amt: 1mlLot: [id number]: 02/10Route: IMSite: right deltTolerated: wellGiven By: SCAR Sood Pulse Oximetry (94323)By: Quentin On: 29-Jul-2008 Intent LIGHT BULB ASSEMBLER Adeola Aerosol Treatment (33021)By: On: 29-Jul-2008 Intent Ciesa KENDALL Adeola Aerosol Treatment (94977)By: On: 16-Jul-2008 Intent Sofia Younger DO Comments: done-awnoise resolved and much more air exchange Pulse Oximetry (50636)By: Carisa On: 16-Jul-2008 Sofia Davis DO Comments: 93% Solu- Medrol Injection, 125mg On: 16-Jul-2008 Intent (J2930)By: Sofia Younger DO Comments: Lot #[id number]-6/11Site-right zadOlrh2ff/125mggiven by Debbie Lei LPN B 12 Injection, 1000 mcg On: 30-Apr-2008 Intent (J3420)By: Prema Lei Comments: Lot #[id number]-5/10Site-right sjlnednTpit2lybodkg by Debbie Lei LPN DXA, BONE DENSITY, AXIAL On: 30-Apr-2008 Intent SKELETON (36465)By: Dima DURAN, Comments: estrogen def Sarah Pizano MD, Sarah Rebollar MAMMOGRAM, SCREENING, BOTH On: 30-Apr-2008 Intent BREASTS (06800)By: Dima DURAN, Sarah Ghosh MD B 12 Injection, 1000 mcg On: 27-Mar-2008 Intent (J3420)By: Tonia Garcia Comments: Lot #:[id number] date:mount given:.1mlRoute: IMSite given:left deltoidGiven by: EDEN Salcido Pulse Oximetry (51061)By: On: 27-Mar-2008 Intent Tonia Garcia Comments: 96% Pulse Oximetry (27260)By: On: 14-Mar-2008 Intent COMFORT Gallegos B 12 Injection, 1000 mcg On: 06-Feb-2008 Intent (J3420)By: Pamella Saavedra CNP Comments: Lot #:[id number] date: Amount given:1ml Route: IMSite given:left deltoid Given by: billy Solu -Medrol Injection, 125 mg On: 06-Feb-2008 Intent (J2930)By: Pamella Saavedra CNP Comments: Lot #:[id number] date:mount given:125mgRoute: IMSite given:left gluteal Given by: aretha Pulse Oximetry (38708)By: Quentin On: 06-Feb-2008 Intent Pamella ARGUETA Aerosol Treatment (75638)By: On: 06-Feb-2008 Intent Pamella Saavedra CNP B 12 Injection, 1000 mcg On: 21-Dec-2007 Intent (J3420)By: Ledy Nogueira Comments: given in right deltoid, lot#[id number], exp.3.10 >Wf. B 12 Injection, 1000 mcg On: 03-Oct-2007 Intent (J3420)By: Pamella Saavedra CNP Pulse Oximetry (57908)By: Quentin On: 03-Oct-2007 Intent Pamella ARGUETA Aerosol Treatment (13413)By: On: 03-Oct-2007 Intent Pamella Saavedra CNP Pulse Oximetry (92663)By: Lenny On: 16-Aug-2007 Intent Cira Aerosol Treatment (06226)By: On: 16-Aug-2007 Intent Sofia Younger DO Comments: no wheeze and better air exchange Solu- Medrol Injection, 125mg On: 16-Aug-2007 Intent (J2930)By: Sofia Younger DO Comments: given in left buttocks.lot # [id number]\Exp 02/2010 SPECIMEN HNDLNG/TRNSPRT, OFFC > On: 16-Aug-2007 Intent LAB (95498)By: Sofia Younger DO B 12 Injection, 1000 mcg On: 01-Aug-2007 Intent (J3420)By: Prema Lei Comments: Lot #[id number]-05/12Site-left aqwfqzqLpyg9grupxvh by Debbie Lei [facility] CT - ChestBy: Sarah Pizano MD On: 01-Aug-2007 Intent Sarah Pizano MD FLU VAC, SPLIT, >3 YEARS, On: 18-Apr-2007 Intent INTRAMUSC (56207)By: Sarah Pizano MD, MD, Dana M IMMUNIZ ADMNIN, 1 VAC, On: 18-Apr-2007 Intent SNGL/COMBO (01183)By: Sarah Pizano MD, MD, Dana M B [...] HNDLNG/TRNSPRT, OFFC > On: 10-Oct-2006 Intent LAB (12197)By: Sarah Pizano MD, MD, Dana M Solu -Medrol Injection, 125 mg On: 16-Sep-2006 Intent (J2930)By: Sarah Pizano MD Comments: lot # [id number] exp 04-[address] gluteal by Sarah Chacon lpn, MD Pulse Oximetry (29599)By: On: 16-Sep-2006 Intent Sarah Pizano MD, MD, Dana M Aerosol Treatment (68893)By: On: 16-Sep-2006 Intent Sarah Pizano MD, MD, Dana M Pulse Oximetry (31074)By: On: 04-Aug-2006 Intent Sarah Pizano MD, MD, Dana M EKG (37140)By: Sarah Pizano MD On: 08-Jul-2006 Intent Sarah Morfin MD IMMUNIZ ADMNIN, 1 VAC, On: 06-May-2006 Intent SNGL/COMBO (14567)By: Ramiro ABBOTT, Peg FLU VAC, SPLIT, >3 YEARS, On: 06-May-2006 Intent INTRAMUSC (74687)By: Ramiro ABBOTT, Comments: Lot #:Expiration date:Amount given:Route: imSite given:r armGiven by: galina golden lpn Peg Echo CompleteBy: Dima DURAN, On: 19-Apr-2006 Intent Sarah Gh[address] MD CT - Abdomen & PelvisBy: Dima On: 19-Apr-2006 Intent Sarah DURAN MD, Dana M Comments: ?obstruction, pancreatitis, attention kidney cyst send to [facility] gastrologist [facility] Planned Medications INJECTION, METHYLPREDNISOLONE SODIUM SUCCINATE, UP TO 125 MG Ordered: 14-Oct-2011 Pending Sofia Younger DO INJECTION, METHYLPREDNISOLONE SODIUM SUCCINATE, UP TO 125 MG Ordered: 04-Feb-2015 Pending Ciesa Pamella ARGUETA INJECTION, METHYLPREDNISOLONE SODIUM SUCCINATE, UP TO 125 MG Ordered: 05-Feb-2015 Pending Ciesa Pamella ARGUETA E INJECTION, TRIAMCINOLONE ACETONIDE, NOT OTHERWISE SPECIFIED, 10 [...] Advance Directives Name Dates Details Immunization Registry [place] - Effective on Effective: 29-Apr-201704/29/2017. Expiration date [...] (579.8), Hyponatremia (276.1), Asthma (493.11), Fibromyalgia (729.1), [facility] V73.21 [place] (Renamed from [facility]), Obesity,unspecified (278.00), GERD (530.81), DEFICIENCY, VITAMIN [...] DUE TO DIETARY IRON DEFICIENCY (280.1), [facility] V73.21 [place] (Renamed from [facility]) [facility] Office Visit On: [...] (477.8), Other vitamin B12 deficiency anemia (281.1), [facility] Phone Encounter On: 23-Jan-2010 [...] docs for this Dr Jacob rabago at [facility]-- -- feels similiar to what [...] months. Note for Fever: pt had epidural [id number] Diagnosis: Dehydration(276.51), Abdominal Pain,Generalized (789.07), FEVER (780.6) [...] and supplemental vitamins. The medical issues the bubba martinez is following up for include All identified [...] care visit: swelling better with aldactone, reviewed [employer] ax consultant's letter use compression, work up from [...] weekend , bite by flies, camp in [facility], no fever abd pain still hit [...] Epigastric pain (789.06), SVC thrombosis, Fibromyalgia (729.1), [facility] Office Visit [...] chemistry (790.6) [facility] z[facility] guarantor
--- OUTSIDE RECORDS SUMMARY | 2018-08-02 06:35 | XMS RPT_ITS | Continuity of Care Document ---
:1955 Author Organization [facility] Address [address] [place] [address] Phone Care Team Providers Name Role Phone iDma DURAN, Adalid Rebollar Unavailable Antonino Lucas MD [...] cervical.doing every 6 months. ariel leaving to [place]. reconmmend Dr. romero and i talk to [...] really expensive can use an equivalent Creon 17918 UNIT Oral Capsule Delayed Release Particles 2 [...] MD, Dana M Start : 30-Nov-2016 Active Caspar 5-325 MG Oral Tablet 1 (one) Tablet [...] Start : 14-Apr-2018 Active Vitamin D (Ergocalciferol) 25393 UNIT Oral Capsule 1 (one) capsule twice weekly for 0 days Quantity: 24 {Capsule} Refills: 3 Ordered:08-Mar-2018 Dima DURAN, Adalid Slaon MD, Adalid Rebollar Start : 08-Mar-2018 Active [...] MD, Adalid Rebollar Start : 06-Feb-2018 Active Comments:[id number] called to [facility] ADVAIR DISKUS, 100-50MCG/DOSE [...] End : 24-Aug-2012 Inactive CALCIUM 500/VITAMIN D, 909-280BF-DBME (Oral Tablet) 1 (one) Tablet daily for [...] : 09-Mar-2016 End : 04-Jun-2016 Inactive Drisdol 33157 UNIT Oral Capsule 1 Capsule two times [...] : 21-Dec-2007 End : 14-Mar-2008 Inactive Nystatin 019106 UNIT/GM External Powder 1 Powder bid for [...] Quantity: 1 {Package} Refills: 0 Ordered:08-Jul-2015 Slarb INSOLE BOTTOM FILLER, Kacey Start : 24-Jun-2015 End : 08-Jul-2015 [...] cervical.doing every 6 months. george leaving to [place]. reconmmend Dr. romero and i talk to [...] need chagne port. leave up to Dr. igllette about this. Status: Inactive as of 22-Apr-2014 [...] Procedures Procedure Dates Details ZOSTER VACC, SC (88444) Date: 01-Oct-2016 Cancelled Cholecystectomy Completed GASTRIC BYPASS, OPEN (71096) Completed Comments: 1997, Dr. lindsay did for recurrent pancreatitis, this is what helped her. Hysterectomy; Abdominal Completed JEJUNOSTOMY (66125) Completed Comments: 1995 closed 1997 when had gastric bypass, because of pancreatitis and was tube feed for 2 years Date Value Details 21-Mar-2018 Dexa Bone Density Study Result: Comments: See Note; NOTES: [facility] Imaging Services [address] [place] [address] Dexa Bone Density Study MR#: [id number] Acct: [id number] Name: JOSE J COBIAN Rep #: [id number] : 1955 F 63 From: Bartolome Patel MD PCP: Adalid Pizano MD Status: REG CLI Study: Dexa Bone Density Study Date of Exam: 03/21/18 Exam# [id number] Ordering Dr: Adalid Pizano MD STUDY: D [...] Bartolome Patel MD at 15:07 EDT Tel [phone], Service support , CC: Adalid Pizano MD Manager Appointment: Signed 21-Mar-2018 SCREENING MAMM (CAD), BILAT Result: Comments: See Note; NOTES: [facility] Imaging Services [address] [place] [address] SCREENING MAMM (CAD), BILAT MR#: [id number] Acct: [id number] Name: JOSE J COBIAN Rep #: [id number] : 1955 F 63 From: Bartolome Patel MD PCP: Adalid Pizano MD Status: [facility] Study: SCREENING MAMM (CAD), BILAT Date of Exam: 03/21/18 Exam# [id number] Ordering Dr: Adalid Pizano MD MAMMOGRAPHY - [...] biopsy of a clinically suspicious abno rmality. [id number] Electronically Signed: Bartolome Patel MD at 13:21 EDT Tel [phone], Service support , CC: Adalid Pizano MD Manager Appointment: Signed 07-Nov-2017 Operative Report Result: Comments: See Note; NOTES: [facility] Medical Records Department [address] [place] [address] Operative Report 11/07/17 1027 MR#: [id number] Acct: [id number] Name: JOSE J COBIAN Rep #: [id number] : 1955 62 From: Bubba Romero MD PCP: Adalid Pizano MD Status: REG SDC Y Location: [place] [address] Problem List (1) Disc disease, degenerative, lumbar [...] 4 Views Result: Comments: See Note; NOTES: [facility] Imaging Services [address] [place] [address] L/S Spine Min 4 Views MR#: [id number] Acct: [id number] Name: JOSE J COBIAN Rep #: [id number] : 1955 F 62 From: Bartolome Patel MD PCP: Adalid Pizano MD Status: [facility] Study: L/S Spine Min 4 Views Date of Exam: 11/07/17 Exam# [id number] Ordering Dr: Bubba Romero MD PROCEDURE : [...] Bartolome Patel MD at 11:01 EDT Tel [phone], Service support , CC: Adalid Pizano MD; Bubba Romero Manager Appointment: Signed 04-Oct-2017 Cardiology Visit Report Result: Comments: See Note; NOTES: [facility] [address] [place] [address] OFFICE VISIT Date of Service: 10/03/17 MR#: [id number] Acct: [id number] Name: JOSE J COBIAN Rep #: [id number] : 1955 Provider: Chanel Shaw Age/Sex: 62/F Location[place] [facility] Status: Signed HPI HPI Details: JOSE [...] Intake Visit Reasons: NOT SEEN SINCE 05/2016 Fur Buyer Required: No Accompanied by: Is patient in [...] mg PO DAILY@0800 10/20/15 [History Confirmed 10/03/17] [place] codone Bitart/Apap 5-325 [Caspar 5/325] 1 tab PO Q4H PRN PRN [...] Operative Report Result: Comments: See Note; NOTES: [facility] Medical Records Department [address] [place] [address] Operative Report 09/05/17 0944 MR#: [id number] Acct: [id number] Name: JOSE J COBIAN Rep #: [id number] : 1955 62 From: Bubba Romero MD PCP: Adalid Pizano MD Status: REG [facility] Y Location: [place] [address] Problem List (1) Lumbosacral spondylosis Status: Chronic [...] 4 Views Result: Comments: See Note; NOTES: [facility] Imaging Services [address] [place] [address] L/S Spine Min 4 Views MR#: [id number] Acct: [id number] Name: JOSE J COBIAN Rep #: [id number] : 1955 F 62 From: Bartolome Patel MD PCP: Adalid Pizano MD Status: [facility] Study: L/S Spine Min 4 Views Date of Exam: 09/05/17 Exam# [id number] Ordering Dr: Bubba Romero MD PROCEDURE : [...] Bartolome Patel MD at 9:02 EST Tel [phone], Service support , CC: Adalid Pizano MD; Bubba Romero Manager Appointment: Signed 08-Aug-2017 Operative Report Result: Comments: See Note; NOTES: [facility] Medical Records Department [address] [place] [address] Operative Report 08/08/17 1408 MR#: [id number] Acct: [id number] Name: JOSE J COBIAN Rep #: [id number] : 1955 62 From: Bubba Romero MD PCP: Adalid Pizano MD Status: [facility] Y Location: [facility] Problem List (1) Lumbosacral radiculopathy [...] 3 Views Result: Comments: See Note; NOTES: [facility] Imaging Services [address] [place] [address] Lumbar Spine 2 or 3 Views MR#: [id number] Acct: [id number] Name: JOSE J COBIAN Rep #: [id number] : 1955 F 62 From: Bartolome Patel MD PCP: Adalid Pizano MD Status: [facility] Study: Lumbar Spine 2 or 3 Views Date of Exam: 08/08/17 Exam# [id number] Ordering Dr: Bubba Romreo MD P ROCEDURE: Transforaminal block. DATE OF EXAMINATION: August 08, 2017. INDICATION: Female, 62 years old. Chronic back pain. FLUOROSCOPY TIME (if supplied): (0:21) minutes/seconds Intraoperative fluo roscopic services provided for right L4-L5 and L5-S1 transforaminal block. RAD/Lumbar Spine 2 or 3 Views IMPRESSION: Imaging provided for right L4-L5 and L5-S1 transforaminal block. Electronically Signed: Bartolome Patel MD at 11:32 EST Tel [phone], Service support , CC: Adalid Pizano MD; Bubba Romero Manager Appointment: Signed 09-May-2017 Operative Report Result: Comments: See Note; NOTES: [facility] Medical Records Department [address] [place] [address] Operative Report 05/09/17 1348 MR#: [id number] Acct: [id number] Name: JOSE J COBIAN Rep #: [id number] : 1955 62 From: Bubba Romero MD PCP: Adalid Pizano MD Status: [facility] Y Location: [place] [address] Report of Operation Date of Procedure: 05/09/17 [...] Spine Inj Result: Comments: See Note; NOTES: [facility] Imaging Services [address] [place] [address] Fluor Guidance for Spine Inj MR#: [id number] Acct: [id number] Name: JOSE J COBIAN Rep #: [id number] : 1955 F 62 From: Bartolome Patel MD PCP: Adalid Pizano MD Status: [facility] Study: Fluor Guidance for Spine Inj Date of Exam: 05/09/17 Exam# [id number] Ordering Dr: Bubba Romero MD PROCEDURE: Caudal [...] Bartolome Patel MD at 14:03 EST Tel [phone], Service support , CC: Adalid leigh MD; Bubba Romero Manager Appointment: Signed 29-Apr-2017 L/S Spine Min 4 Views Result: Comments: See Note; NOTES: [facility] Imaging Services [address] [place] [address] L/S Spine Min 4 Views MR#: [id number] Acct: [id number] Name: JOSE J COBIAN Rep #: [id number] : 1955 F 62 From: Feliberto Sim MD PCP: Adalid Pizano MD Status: REG CLI Study: L/S Spine Min 4 Views Date of Exam: 04/29/17 Exam# [id number] Ordering Dr: Lizeth Sanches STUDY: X-RAY - [...] , CC: Lizeth Sanches; Adalid Pizano MD Manager Appointment: Signed 21-Mar-2017 Operative Report Result: Comments: See Note; NOTES: [facility] Medical Records Department [address] [place] [address] Operative Report 03/21/17 0841 MR#: [id number] Acct: [id number] Name: JOSE J COBIAN Rep #: [id number] : 1955 62 From: Bubba Romero MD PCP: Adalid Pizano MD Status: [facility] Y Location: [facility] Problem List (1) Cervical spine [...] 5 Views Result: Comments: See Note; NOTES: [facility] Imaging Services [address] [place] [address] Cerv Spine 4 or 5 Views MR#: [id number] Acct: [id number] Name: JOSE J COBIAN Rep #: [id number] : 1955 F 62 From: Daniel Manzano DO PCP: Adalid Pizano MD Status: [facility] Study: Cerv Spine 4 or 5 Views Date of Exam: 03/21/17 Exam# [id number] Ordering Dr: Bubba Romero MD STUDY: X-RAY - CERVICAL SPINE REASON FOR EXAM: Female, 62 years old. Cervical block TECHNIQUE: 4 view(s) of the cervical spine were obtained. COMPARISON: None FINDINGS: Face t block was performed with 4 spot fluoroscopy images obtained. Total fluoroscopy time 14.7 seconds. Please see performing physician's report for further details ORD ER #: [id number] RAD/Cerv Spine 4 or 5 Views IMPRESSION: As above Electronically Signed: Daniel Manzano DO at 16:12 EDT Tel , Service support , CC: Adalid Pizano MD; Bubba Romero Manager Appointment: Signed 17-Jan-2017 Operative Report Result: Comments: See Note; NOTES: [facility] Medical Records Department [address] [place] [address] Operative Report 01/17/17 1246 MR#: [id number] Acct: [id number] Name: JOSE J COBIAN Rep #: [id number] : 1955 61 From: Bubba Romero MD PCP: Adalid Pizano MD Status: DEP [facility] Y Location: [facility] Problem List (1) Cervical spine [...] 5 Views Result: Comments: See Note; NOTES: [facility] Imaging Services [address] [place] [address] Verdana 4d Cerv Spine 4 or 5 Views MR#: [id number] Acct: [id number] Name: JOSE J COBIAN #: [id number] : 1955 F 61 From: Tonia Galvan MD PCP: Adalid Pizano MD Status: [facility] Study: Cerv Spine 4 or 5 Views Date of Exam: 01/17/17 Exam# [id number] Ordering Dr: Bubba Romero MD STUDY: X-RAY [...] Tonia Galvan MD at 16:36 EDT Tel [phone], Service support , CC: Adalid Pizano MD; Bubba Romero Manager Appointment: Signed 09-Oct-2016 Abdomen/Pelvis WITH Contrast Result: Comments: See Note; NOTES: [facility] Imaging Services [address] [place] [address] Shiradaolvin 4d Abdomen/Pelvis WITH Contrast MR#: [id number] Acct: [id number] Name: VIRAJ COBIAN Rep #: [id number] : 1955 F 61 From: Enrike Peres PCP: Adalid Pizano MD Status: REG CLI Study: Abdomen/Pelvis WITH Contrast Date of Exam: 10/09/16 Exam# [id number] Ordering Dr: Adalid Pizano MD STUDY: CT [...] at 9:47 EDT Tel , Service support [phone], CC: Adalid Pizano MD Manager Appointment: Signed 23-Aug-2016 Operative Report Result: Comments: See Note; NOTES: [facility] Medical Records Department [address] [place] [address] Operative Report MR#: [id number] Acct: [id number] Name: JOSE J COBIAN Rep #: [id number] : 1955 61 From: Bubba Romero MD PCP: Adalid Pizano MD Status: [facility] DATE OF SERVICE: 08/09/2016 DATE OF [...] indicated. Bubba Romero MD T: NTS JOB: [id number] 08/23/16 1357 <Electronica y signed by Bubba Romero MD> Date Bubba Romero MD Cosigner Signature (If Indicated): Date ____ CC: Adalid Pizano MD; Bubba Romero Date Dictated: 08/09/161 Date Transcribed: 08/09/161310 Manager Appointment: Signed 09-Aug-2016 Thoracic Spine 3 Views Result: Comments: See Note; NOTES: [facility] Imaging Services [address] [address] Verdana 4d Thoracic Spine 3 Views MR#: [id number] Acct: [id number] Name: JOSE J COBIAN p #: [id number] : 1955 F 61 From: Azalia Fernandes MD PCP: Adalid Pizano MD Status: [facility] Study: Thoracic Spine 3 Views Date of Exam: 08/09/16 Exam# [id number] Ordering Dr: Bubba Romero MD [facility] DY: X-RAY - THORACIC SPINE REASON FOR [...] at 1 2:18 EST , Service support [phone], CC: Adaild Pizano MD; Bubba Romero Manager Appointment: Signed 01-Jun-2016 PT D/C of Non Returning Pt (1) Result: Comments: See Note; NOTES: [facility] [address] [place], [place] [address] Fax REHABILITATION SERVICES DISCHAR GE SUMMARY MR#: [id number] Acct: [id number] Name: JOSE J COBIAN Rep #: [id number] Operative Report Result: Comments: See Note; NOTES: [facility] Medical Records Department [address] [place] [address] Operative Report MR#: [id number] Acct: [id number] Name: JOSE J COBIAN Rep #: [id number] : 1955 61 From: Bubba Romero MD PCP: Adalid Pizano MD Status: [facility] DATE OF SERVICE: 03/22/2016 DATE OF [...] indicated. Bubba Romero MD T: NTS JOB: [id number] 04/05/16 1351 <E lectronically signed by Bubab Romero MD> Date Bubba Romero MD Cosigner Signature (If Indicated): Date CC: Adalid Pizano MD; Bubba Romero Date Dictated: 03/22/161415 Date Transcribed: 03/22/161415 Manager Appointment: Signed 01-Apr-2016 Echocardiogram Complete Result: Comments: See Note; NOTES: [facility] Cardiovascular Services [address] [place] [address] Echo Complete 04/01/16 1256 MR#: [id number] Acct: [id number] Name: JOSE J COBIAN Rep #: [id number] : 1955 61 From: Antonino Lucas MD [...] Dictated: 04/01/16 1256 Date Transcribed: 04/01/16 1515 Manager Appointment: Signed 22-Mar-2016 Breast Limited Unilateral Result: Comments: See Note; NOTES: [facility] Imaging Services [address] [place] [address] Verdana 4d Breast Limited Unilateral MR#: [id number] Acct: [id number] Name: JOSE J COBIAN Rep #: [id number] : 1955 F 61 From: Bartolome Patel MD PCP: Adalid Pizano MD Status: REG CLI Study: Breast Limited Unilateral Date of Exam: 03/22/16 Exam# [id number] Ordering Dr: Zack Pizano MD STUDY: ULTRASOUND [...] Bartolome Patel MD at 12:35 EDT Tel [phone], Service support [phone], CC: Adalid Pizano MD Manager Appointment: Signed 19-Mar-2016 Thoracic Spine 3 Views Result: Comments: See Note; NOTES: [facility] Imaging Services [address] [place] [address] Verdana 4d Thoracic Spine 3 Views MR#: [id number] Acct: [id number] Name: JOSE J COBIAN #: [id number] : 1955 F 61 From: Bartolome Patel MD PCP: Adalid Pizano MD Status: [facility] Study: Thoracic Spine 3 Views Date of Exam: 03/22/16 Exam# [id number] Ordering Dr: Bubba Romero MD STUDY: X-RAY [...] Bartolome Patel MD at 14:10 EDT Tel [phone], Service support [phone], CC: Adalid vasquez MD; Bubba Romero Manager Appointment: Signed 19-Mar-2016 Inital Evaluation (1) - PT Result: Comments: See Note; NOTES: [facility] [address] [place], [place] [address] Fax REHABILITATION SERVICES HERI Springer EVALUATION MR#: [id number] Acct: [id number] Name: JOSE J COBIAN Rep #: [id number] : 1955 61 From: Mac Smith Referring Dr.: Bubba Romero Status: REG RCR Insurance: [employer] ARE MEDICARE Patient's Visit Information JOSE [...] to be FAXED BACK to us at [phone] for Medicare purposes. Please let me know [...] AND CAD Result: Comments: See Note; NOTES: [facility] Imaging Services [address] [place] [address] Verdana 4d Bilat Scrn Digital AND CAD MR#: [id number] Acct: [id number] Name: JOSE J COBIAN Rep #: [id number] : 1955 F 61 From: Bartolome Patel MD PCP: Adalid Pizano MD Status: REG CLI Study: Bilat Scrn Digital AND CAD Date of Exam: 03/16/16 Exam# [id number] Ordering Dr: Adalid Pizano MD MAMMOGRAPHY - [...] delay biopsy of a clinically suspicious abnormality. [id number] Electronically Signed: Bartolome Patel MD at 15:06 EDT Tel [phone], Service supp ort [phone], CC: Adalid Pizano MD Manager Appointment: Signed 16-Mar-2016 Dexa Bone Density Study (HP) Result: Comments: See Note; NOTES: [facility] Imaging Services [address] [place] [address] Verdana 4d Dexa Bone Density Study (HP) MR#: [id number] Acct: [id number] Name: MAURI COBIAN Rep #: [id number] : 1955 F 61 From: Bartolome Patel MD PCP: Adalid Pizano MD Status: REG CLI Study: Dexa Bone Density Study (HP) Date of Exam: 03/16/16 Exam# [id number] Ordering Dr: Adalid Deng MD STUDY: DUAL [...] Bartolome Patel MD at 14:15 EDT Tel [phone], Service support [phone], CC: Adalid Pizano MD Manager Appointment: Signed 22-Feb-2016 History and Physical Exam Result: Comments: See Note; NOTES: [facility] Medical Records Department [address] [place] [address] History and Physical 02/22/162054 MR#: [id number] Acct: [id number] Name: JOSE J COBIAN Rep #: [id number] : 1955 60 From: An Dent DO [...] seen in the emergency room at [facility] with a chief complaint of precordial [...] - Mediport placement Psychiatric Hist ory: Anxiety 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: No pertinent 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 ASSISTANT history Lives: Spouse/ Significant Other Smoking Status: [...] 44.6 L Lymph % (Auto) 46.1 H [place] % (Auto) 6.9 Eos % (Auto) 2.0 [...] View (Portable) Result: Comments: See Note; NOTES: [facility] Imaging Services [address] [place] [address] Verdaolvin 4d Chest 1 View (Portable) MR#: [id number] Acct: [id number] Name: JOSE J COBIAN Rep #: [id number] : 1955 F 60 From: Kim Dsouza MD PCP: Adalid Pizano MD Status: REG ER Study: Chest 1 View (Portable) Date of Exam: 02/22/16 Exam# [id number] Ordering Dr: Mac Chi MD STUDY: X-RAY [...] MD at 19:35 EDT , Service support [phone], CC: Adalid Pizano MD; Mac Chi MD Manager Appointment: Signed 16-Feb-2016 Thoracic Spine 3 Views Result: Comments: See Note; NOTES: [facility] Imaging Services [address] [place] [address] Verdana 4d Thoracic Spine 3 Views MR#: [id number] Acct: [id number] Name: MANGOJOSE J Denise Prather #: [id number] : 1955 F 60 From: Kirk Wall MD PCP: Adalid Pizano MD Status: REG CLI Study: Thoracic Spine 3 Views Date of Exam: 02/16/16 Exam# [id number] Ordering Dr: Adalid Pizano MD ST UDY: [...] at 21:50 EDT , S titi support [phone], CC: Adalid Pizano MD Manager Appointment: Signed 03-Nov-2015 Operative Report Result: Comments: See Note; NOTES: [facility] Medical Records Department [address] [place] [address] Operative Report MR#: [id number] Acct: [id number] Name: JOSE J COBIAN Rep #: [id number] : 1955 60 From: Bubba Romero MD PCP: Adalid Pizano MD Status: [facility] DATE OF SERVICE: 10/20/2015 DATE OF [...] indicated. Lidia Romero MD T: NTS JOB: [id number] 11/03/15 8367 <Electronically signed by Bubba Romero MD> Date Bubba Romero MD Co signer Signature (If Indicated): Date CC: Adalid Pizano MD; Bubba Romero Date Dictated: 10/20/15 1351 Date Transcribed: 10/20/15 135 Manager Appointment: Signed 20-Oct-2015 Cerv Spine 2 or 3 Views Result: Comments: See Note; NOTES: [facility] Imaging Services [address] [place] [address] Veradalid 4d Cerv Spine 2 or 3 Views MR#: [id number] Acct: [id number] Name: JOSE J NOWAK Rep #: [id number] : 1955 F 60 From: Bartolome Patel MD PCP: Adalid Piznao MD Status: [facility] Study: Cerv Spine 2 or 3 Views Date of Exam: 10/20/15 Exam# [id number] Ordering Dr: Bubba Romero MD STUDY: X-RAY [...] Bartolome Patel MD at 13:45 EDT Tel [phone], Service support [phone], RAD/Cerv Spine 2 or 3 Views IMPRESSION: Fluoroscopic services provided for right 4 through C7 facet block. Electronically Signed: Bartolome Patel MD at 13:45 EDT Tel [phone], Service support [phone], CC: Adalid Pizano MD; Bubba Romero Manager Appointment: Signed 18-Aug-2015 Operative Report Result: Comments: See Note; NOTES: [facility] Medical Records Department [address] [place] [address] Operative Report MR#: [id number] Acct: [id number] Name: JOSE J COBIAN Rep #: [id number] : 1955 60 From: Bubba Romero MD PCP: Adalid Pizano MD Status: [facility] DATE OF SERVICE: 08/04/2015 DATE OF SERVICE: [...] d. Bubba Romero MD T: NTS JOB: [id number] 08/18/15 0927 <Electronically signed by Bubba Romero MD> Date Bubba copeland MD Cosigner Signature (If Indicated): Date CC: Adalid Pizano MD; Bubba Romero Date Dictated: 08/04/15 143 Date Transcribed: 08/04/151432 Manager Appointment: Signed 04-Aug-2015 Cerv Spine 2 or 3 Views Result: Comments: See Note; NOTES: [facility] Imaging Services [address] [place] [address] Verdana 4d Cerv Spine 2 or 3 Views MR#: [id number] Acct: [id number] Name: JOSE J NOWAK Denise Rep #: [id number] : 1955 F 60 From: Kirk Wall MD PCP: Adalid Pizano MD Status: [facility] Study: Cerv Spine 2 or 3 Views Date of Exam: 08/04/15 Exam# [id number] Ordering Dr: Osiel Romero MD STUDY: X-RAY [...] MD at 16:28 EST , Service support [phone], RAD/Cerv Spine 2 or 3 Views IMPRESSION: Needle positions as above. Electronically Signed: Kirk Wall MD at 16:28 EST , Service support [phone], CC: Adalid Pizano MD; Bubba Romero Manager Appointment: Signed 02-Jul-2015 Hip min 2 Views Result: Comments: See Note; NOTES: [facility] Imaging Services [address] [place] [address] Verdana 4d Hip min 2 Views MR#: [id number] Acct: [id number] Name: VIRAJ COBIAN Rep #: [id number] : 1955 F 60 From: Tuan Boyd MD PCP: Adalid Pizano MD Status: REG CLI Study: Hip min 2 Views Date of Exam: 07/02/15 Exam# [id number] Ordering Dr: Adalid Pizano MD S TUDY: [...] at 12:42 EST Tel , Service support [phone], Fax RAD/Hip min 2 Views IMPRESSION: Normal x-ray examination of the hip. Electronically Signed: Lucius Boyd MD at 12:42 EST Tel , Linnea elizabeth support [phone], CC: Adalid Pizano MD Manager Appointment: Signed 24-Jun-2015 Pelvis 1 or 2 Views Result: Comments: See Note; NOTES: [facility] Imaging Services [address] [place] [address] Verdana 4d Pelvis 1 or 2 Views MR#: [id number] Acct: [id number] Name: JOSEJ COBIAN Rep #: [id number] : 1955 F 60 From: Prosper Dumont MD PCP: Adalid Pizano MD Status: REG CLI Study: Pelvis 1 or 2 Views Date of Exam: 06/24/15 Exam# [id number] Ordering Dr: Tuan Pizano MD STUDY: X-RAY [...] at 11:20 EST Tel , Service support [phone], RAD/Pelvis 1 or 2 Views IMPRESS ION: There is narrowing with cortical sclerosis and osteophyte formation of the sacroiliac joint consistent with degenerative osteoarthritic changes. Electronically Signed: Lavell Dumont MD 08/26 at 11:20 EST Tel , Service support [phone], CC: Adalid iPzano MD Manager Appointment: Signed 07-Feb-2015 Chest PA and Lateral Result: Comments: See Note; NOTES: [facility] Imaging Services [address] [place] [id number] Radiology Report MR#: [id number] Acct: [id number] Name: JOSE J COBIAN Rep #: [id number] : 1955 F 59 From: Baldemar Torres DO PCP: Adalid Pizano MD Status: REG CLI Study: Chest PA and Lateral Date of Exam: 02/07/15 Exam# [id number] Ordering Dr: Pamella Saavedra STUDY: X-RAY CHES [...] Baldemar Torres DO at 19:14 EDT Tel [phone], Service support , RAD/Chest PA and Lateral IMPRESSION: No acute cardiopulmonary disease or interval change. Electronically Signed: Baldemar TorresDO at 19: 14 EDT Tel [phone], Service support [phone], CC: Pamella Saavedra; Adalid Pizano MD Manager Appointment: Signed 05-Feb-2014 Bilat Scrn Digital & CAD Result: Comments: See Note; NOTES: [facility] Imaging Services [address] [place] [address] Breast Imaging Report MR#: [id number] Acct: [id number] Name: JOSE J COBIAN Rep #: [id number] : 1955 F 58 From: Bartolome Patel MD PCP: Adalid Pizano MD Status: REG CLI Exam# [id number] Ordering Dr: Adalid Pizano MD MAMMOGRAPHY - [...] Bartolome Patel MD at 13:16 EDT Tel [phone], Service support [phone], CC: Adalid Pizano MD Manager Appointment: Signed 06-Jun-2013 Abdomen/Pelvis with Contrast Result: Comments: See Note; NOTES: [facility] Imaging Services [address] [place] [address] CAT Scan Report MR#: [id number] Acct: [id number] Name: JOSE J COBIAN Rep #: [id number] : 1955 F 58 From: Tuan Atkins MD PCP: Adalid Pizano MD Status: REG CLI Study: Abdomen/Pelvis with Contrast Date of Exam: 06/06/13 Exam# [id number] Ordering Dr: Adalid Pizano MD STUD Y: [...] M.D. at 0:12 EST , Service support [phone], CC: Adalid Pizano MD Manager Appointment: Signed Immunization Name Dates Details Influenza (3 [...] with spouse. marixa mcclure DAYAMIGEORGE erick Rangel [phone] Status: Active Most Recent Primary Occupation Comments: [employer] retired. 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 sweetheart [...] Date Description Value Details :27 Amylase Comments: [facility] [address]fdkh[address] [place], [place], [id number] PREMA 73 U/L (Normal) Range: 25-115 76-Pnz-324042:27 CBC-Complete Blood Cnt No Diff Comments: [facility] Y[address]rgvqqsjv65[address] [place], [place], [address] MPV 9.3 fL (Normal) Range: 6.2-12.0 PLT [...] 4.2-5.4 WBC 5.3 K/mm3 (Normal) Range: 4.4-11.0 36-Rvf-534629:27 Comprehensive Metabolic Profil Comments: [facility] J[address]yccvcni[address] [place], [place], [address] GAP 4 (Abnormal) Range: 5-15 CO2 29.0 [...] criteria.Please note revised GLUCOSE reference range /02/2018. 18-Dov-180885:27 Lipase Comments: [facility] Dqrsckjgjg2550 [facility] [place], [address] LIPASE 314 U/L (Normal) Range: 73-393 61-Bah-733669:27 Urinalysis, Routine (Dipstick) Comments: How was Urine Obtained? Urine, [facility] Vlbndndrum[address] [facility] [place], [address] LEUK ESTERASE Negative /ul (Normal) OCCULT BLOOD-UR Negative /ul (Normal) NITRITE UR Negative (Normal) UROBILI Normal mg/dL (Normal) PROT DIPSTX Negative mg/dL (Normal) pH UR 6.5 (Normal) Range: 5.0 - 8.0 SP.GR. DIPSTX 1.010 (Normal) Range: 1.002-1.030 KETONE UR Negative mg/dL (Normal) BILIRUBIN URINE Negative mg/dL (Normal) GLUCOSE, UR Normal mg/dL (Normal) CLARITY Clear (Normal) COLOR Yellow (Normal) 3-Zhk-401211:01 Protime w/INR Fingerstick Comments: [facility] [address] [place] [address]. [place] [address] INR ISTAT 1.00 (Normal) Comments: Critical Value > 3.5 PROTIME ISTAT 11.9 {SEC} (Normal) Range: 11.9-14.4 Comments: Reference Range 11.9 - 14.4 97-Ymg-412994:58 URINE GRETTA CULTURE-IDENTIFICATN Comments: PATIENT NOT FASTINGPERFORMED BY: [facility]6370 [facility] [id number] Information: SRC:UC (77131) Result 1 MUG (Normal) Comments: Mixed urogenital floraGreater than 100,000 colony forming units per mL Urine Culture,Comprehensive Final report (Normal) 97-Tgi-583995:57 Urinalysis, Office (95771) UA - LEUKOCYTE ESTERASE Negative (Normal) UA - NITRITE Negative (Normal) URINE UROBILINGN YANCI TIMED 2 mg/dL (Normal) UA - PROTEIN Negative mg/dL (Normal) UA - PH 7.0 (Normal) UA - BLOOD Negative (Normal) UA - SPECIFIC GRAVITY 1.010 (Normal) UA - KETONES Negative mg/dL (Normal) UA - BILIRUBIN Negative (Normal) UA - GLUCOSE Negative (Normal) 03-Apr-20188:00 Protime w/INR Fingerstick Comments: [facility] [address] [place], [place] [address] INR ISTAT 1.10 (Normal) Comments: Critical Value > 3.5 PROTIME ISTAT 13.7 {SEC} (Normal) Range: 11.9-14.4 Comments: Reference Range 11.9 - 14.4 18-Brp-861748:23 Amylase 89 U/L (Normal) Comments: PATIENT NOT FASTINGPERFORMED BY: [facility]6370 [facility] [id number] Range: 31-124 69-Wtj-611887:23 CBC With Differential/Platelet Comments: PATIENT NOT FASTINGPERFORMED BY: [facility]6370 [facility] [id number] Immature Grans (Abs) 0.0 {x10E3/uL} (Normal) Range: [...] 3.77-5.28 WBC 4.2 {x10E3/uL} (Normal) Range: 3.4-10.8 70-Tiz-218642:23 Comp. Metabolic Panel (14) Comments: PATIENT NOT FASTINGPERFORMED BY: [facility] Zknxyo0494 [facility] [id number] ALT (SGPT) 18 [iU]/L (Normal) Range: 0-32 [...] U/L (Abnormal) Comments: PATIENT NOT FASTINGPERFORMED BY: fitaborate Sygncb4718 [facility] [id number] 4:23 Range: 14-72 31-Tum-337927:23 Urinalysis, Routine Comments: PATIENT NOT FASTINGPERFORMED BY: 5app6370 [facility] [id number] Microscopic Examination MICNIP (Normal) Comments: Microscopic not indicated and not performed. Nitrite, Urine Negative (Normal) Urobilinogen,Semi-Qn 1.0 mg/dL (Normal) Range: 0.2-1.0 Bilirubin Negative (Normal) Occult Blood Negative (Normal) Ketones Negative (Normal) Glucose Negative (Normal) Protein Negative (Normal) WBC Esterase Negative (Normal) Appearance Clear (Normal) Urine-Color Yellow (Normal) pH 6.0 (Normal) Range: 5.0-7.5 Specific [place] 1.020 (Normal) Range: 1.005-1.030 :42 Protime w/INR Fingerstick Comments: [facility] Gdne[address] [place], [place] [address] INR ISTAT 1.00 (Normal) Comments: Critical Value > 3.5 PROTIME ISTAT 12.4 {SEC} (Normal) Range: 11.9-14.4 Comments: Reference Range 11.9 - 14.4 :14 CBC W/Diff, Automated Comments: [facility] [address]uwmani[address] [place], [place], [id number] ; fu 6-19 Absolute Lymph 1.62 {X10_3/ul} [...] 4.2-5.4 WBC 4.7 K/mm3 (Normal) Range: 4.4-11.0 69-Muc-787540:14 Comprehensive Metabolic Profil Comments: [facility] [address]rxmqeehi[address] [place], [place], [address] GAP 5 (Normal) Range: 5-15 CO2 29.0 [...] A.D.A. criteria.Please note revised GLUCOSE reference range obrpesyxf93/02/2018. 41-Fzm-091010:14 Ferritin Comments: [facility] [address]mgcc[address] [place], [place], [address] FERRITIN 82 ng/mL (Normal) Range: 8-252 66-Caa-851081:14 Vitamin B12 558 pg/mL (Normal) Comments: [facility] [address] [place], [address] Range: 211-911 05-Sep-20178:07 Protime w/INR Fingerstick Comments: [facility] Xcta[address] [place] [address] INR ISTAT 1.30 (Normal) Comments: Critical Value > 3.5 PROTIME ISTAT 14.9 {SEC} (Abnormal) Range: 11.9-14.4 Comments: Reference Range 11.9 - 14.4 :10 Protime w/INR Fingerstick Comments: [facility] Jlqw[address] [place] [address] INR ISTAT 1.10 (Normal) Comments: Critical Value > 3.5 PROTIME ISTAT 13.0 {SEC} (Normal) Range: 11.9-14.4 Comments: Reference Range 11.9 - 14.4 88-Iqb-863232:32 Culture, Blood (WB) Comments: [facility] [address]ibpwte[address] [place], [address] CUB See Note (Normal) Comments: Has pt arrived? Y Comments: DR. Mello growth in 5 days. 35-Irv-936879:25 CBC W/Diff, Automated Comments: Comments: DR Cui [facility] [address]jzhid[address] [place], [address] Absolute Lymph 1.68 {X10_3/ul} (Normal) Range: [...] 4.2-5.4 WBC 3.9 K/mm3 (Abnormal) Range: 4.4-11.0 84-Igj-409274:25 Culture, Blood (WB) Comments: [facility] Gvkqwaumdi[address] [place], [id number] CUB See Note (Normal) Comments: Has pt arrived? Y Comments: DR. Mello growth in 5 days. 38-Ksc-678174:25 Erythrocyte Sed Rate Comments: Comments: [facility] X[address]mlhukoo[address] [place], [address] SED RATE 8 mm/h (Normal) Range: 0-30 39-Azc-894681:25 Ferritin Comments: Comments: [facility] Zrlfjshrgk40[address] [place], [address] FERRITIN 83 ng/mL (Normal) Range: 8-252 19-Hqj-318413:25 Vitamin D,25 Hydroxy Comments: Order Date: 07/20/17[facility] Dupwdwluvs[address] [place], [address] Vitamin D 25-OH 34.6 ng/mL (Normal) Comments: Vitamin D 25(OH) Status Range Deficiency <20 ng/mL (50nmol/L) Insuffciency 20 - 30 ng/mL (50 - 75 nmol/L) Sufficiency 30 - 100 ng/mL (75 - 250 nmol/L) Toxicity >100 ng/mL (>250 nmol/L) 26-Uql-217187:10 Culture, Urine Comments: [facility] Ovwacigvbr[address] [place], [address] CUUR See Note (Normal) Comments: Order Date: 07/20/17 Comments: DR PIZANO Urine CultureCulture exhibits no growth. 33-Xpk-690486:10 Urinalysis, Complete Comments: Order Date: 07/20/17Has pt arrived? YComments: DR Morales was Urine Obtained? CLEAN [facility] [address] [place], [place], [address] MUCUS, URINE 0 SEEN {/hpf} (Normal) BACTERIA [...] Yellow (Normal) :48 Protime w/INR Fingerstick Comments: [facility] LaboratoryPoint [place] [address] [place], [place] [address] INR ISTAT 1.10 (Normal) Comments: Critical Value > 3.5 PROTIME ISTAT 13.2 {SEC} (Normal) Range: 11.9-14.4 Comments: Reference Range 11.9 - 14.4 :30 Protime w/INR Fingerstick Comments: [facility]Point [facility] NorthIozk[address] [place], [place] [address] INR ISTAT 1.10 (Normal) Comments: Critical Value > 3.5 PROTIME ISTAT 12.8 {SEC} (Normal) Range: 11.9-14.4 Comments: Reference Range 11.9 - 14.4 :44 INR Fingerstick Comments: [facility] Zcsc[address] [place] [address] INR ISTAT 1.10 (Normal) Comments: Critical Value > 3.5 :44 Prothrombin Time Fingerstick Comments: [facility] Ofcn[address] [place] [address] PROTIME ISTAT 13.6 {SEC} (Normal) Range: 11.9-14.4 Comments: Reference Range 11.9 - 14.4 :17 HgA1C , Office (49307) HgA1C , Office 5.7 % (Normal) Range: 4.6 - 7.1 :08 Metabolic Panel, Basic Comments: PATIENT NOT FASTINGPERFORMED BY: [employer] [facility] ArborMEDNAXAt[facility] Health [facility] [id number] (35568) Calcium, Serum 9.1 mg/dL (Normal) Range: 8.7-10.3 [...] Glucose, Serum 97 mg/dL (Normal) Range: 65-99 35-Gvp-262894:08 CBC (Auto) (78269) Comments: PATIENT NOT FASTINGPERFORMED BY: [employer] [facility] [employer] [facility] [id number] Platelets 306 {x10E3/uL} (Normal) Range: 150-379 RDW 15.6 % (Abnormal) Range: 12.3-15.4 MCHC 32.9 g/dL (Normal) Range: 31.5-35.7 MCH 28.3 pg (Normal) Range: 26.6-33.0 MCV 86 fL (Normal) Range: 79-97 Hematocrit 35.9 % (Normal) Range: 34.0-46.6 Hemoglobin 11.8 g/dL (Normal) Range: 11.1-15.9 RBC 4.17 {x10E6/uL} (Normal) Range: 3.77-5.28 WBC 4.6 {x10E3/uL} (Normal) Range: 3.4-10.8 :08 URINALYSIS W/O MICRO (24186) Comments: PATIENT NOT FASTINGPERFORMED BY: [employer] OilAndGasRecruiterAtrium Health Cleveland [id number] Microscopic Examination MICNIP (Normal) Comments: Microscopic not indicated and not performed. Nitrite, Urine Negative (Normal) Urobilinogen,Semi-Qn 0.2 mg/dL (Normal) Range: 0.2-1.0 Bilirubin Negative (Normal) Occult Blood Negative (Normal) Ketones Negative (Normal) Glucose Negative (Normal) Protein Negative (Normal) WBC Esterase Negative (Normal) Appearance Clear (Normal) Urine-Color Yellow (Normal) pH 6.0 (Normal) Range: 5.0-7.5 Specific [place] 1.013 (Normal) Range: 1.005-1.030 :08 COMPLEMENT C4 (16536) Comments: PATIENT NOT FASTINGPERFORMED BY: fitaborate Qpattk6733 [facility] PharmaAt[facility] Health Cleveland [id number] Complement C4, Serum 16 mg/dL (Normal) Range: 14-44 12-Vha-006459:08 COMPLEMENT C3 (22627) Comments: PATIENT NOT FASTINGPERFORMED BY: [employer] OilAndGasRecruiterAtrium Health [facility] [id number] Complement C3, Serum 103 mg/dL (Normal) Range: 82-167 40-Hsr-395005:08 DNA ANTIBODY-NATV/DBL ST (51824) Comments: PATIENT NOT FASTINGPERFORMED BY: [employer]abor[employer] [place] LLCV[facility] [id number] test code 607633 Anti-DNA (DS) Ab Qn <1 {IU/mL} (Normal) Range: 0-9 Comments: Negative <5 Equivocal 5 - 9 Positive >9 70-Mek-445637:08 Sed Rate Erythrocyte (69950) Comments: PATIENT NOT FASTINGPERFORMED BY: fitaborateHudson County Meadowview HospitalMpvpli1995 [facility] [id number] Sedimentation Rate-Westergren 4 mm/h (Normal) Range: 0-40 46-Gly-126619:08 DESIRAE (ANTINUCLEAR ANTIBODY) Comments: PATIENT NOT FASTINGPERFORMED BY: [employer]6370 [facility] [id number] (94694) DESIRAE Direct Negative (Normal) 5-Inh-566071:04 Prothrombin Time w/INR Comments: [facility] [address] [place], [address] INR 1.5 (Normal) PROTIME 17.8 s (Abnormal) Range: 11.7-14.9 76-Zmj-635469:45 Prothrombin Time w/INR Comments: [facility] [address] [place], [address] INR 3.0 (Normal) PROTIME 30.3 s (Abnormal) Range: 11.7-14.9 :51 Serum Creatinine AND GFR Comments: [facility] [address] [place], [place], [address](347) EST GFR - AA 90 mL/min (Normal) Comments: GFR Calc EST GFR 74 mL/min (Normal) Comments: Non- GFR Calc CREAT,SERUM 0.83 mg/dL (Normal) Range: 0.55-1.02 Comments: The validity of the calculated GFR AND GFRAA in patients over70 years has not been determined. Clinical correlation isessential. :21 LIPASE (78568) Comments: PATIENT NOT FASTINGPERFORMED BY: fitaborateHudson County Meadowview HospitalVcitvx7338 [facility] [id number] Lipase, Serum 46 U/L (Normal) Range: 14-72 Comments: Please note reference interval change :21 AMYLASE (07522) Comments: PATIENT NOT FASTINGPERFORMED BY: fit[employer]ate Trsbfk[address] [place] [id number] Amylase, Serum 65 U/L (Normal) Range: 31-124 5-Efs-935644:21 CALCIFIDIOL (38358) VIT D 25 Comments: PATIENT NOT FASTINGPERFORMED BY: [facility] Jtxbvv4866 [facility] [id number] Vitamin D, 25-Hydroxy 25.8 ng/mL (Abnormal) Range: 30.0-100.0 Comments: Vitamin D deficiency has been defined by the [place] ofMedicine and an Endocrine Society practice guideline as alevel of serum 25-OH vitamin D less than 20 ng/mL (1,2).The Endocrine Society went on to further define vitamin Dinsufficiency as a level between 21 and 29 ng/mL (2).1. IOM ([place] of Medicine). 2010. Dietary reference intakes for calcium and D. Lal [place]: The National Academies Press.2. Candelaria MF, Janey NC, Yolande GROSS, et al. Evaluation, treatment, and prevention of vitamin D deficiency: an Endocrine Society clinical practice guideline. JCEM. 2010; 96(7):1911-30. 8-Rrf-497791:21 Ferritin (38039) Comments: PATIENT NOT FASTINGPERFORMED BY: [facility] Kotxwd8615 [facility] [id number]; fu 10-27 db Ferritin, Serum 10 ng/mL (Abnormal) Range: 15-150 7-Dfk-317448:21 Vitamin B-12 (cyanocobalamin) Comments: PATIENT NOT FASTINGPERFORMED BY: [facility] Anfqql9533 [facility] [id number] (79733) Vitamin B12 1888 pg/mL (Abnormal) Range: 211-946 3-Cwv-462874:21 METABOLIC PANEL, COMPREHENSIVE Comments: PATIENT NOT FASTINGPERFORMED BY: [facility] Gxcvrk8363 [facility] [id number] (21700) ALT (SGPT) 11 [iU]/L (Normal) Range: 0-32 [...] Glucose, Serum 101 mg/dL (Abnormal) Range: 65-99 8-Ezu-204007:21 CBC with auto diff Comments: PATIENT NOT FASTINGPERFORMED BY: [facility] Gkrnvf2315 [facility] [id number] Information: CLIENT DRAW (23175) Immature Grans (Abs) 0.0 {x10E3/uL} (Normal) Range: [...] Range: 3.4-10.8 :14 Prothrombin Time w/INR Comments: [facility] [address]lgr[address] [facility]. [place], [place], [address] INR 1.9 (Normal) Comments: ADDENDA: handled by cardio PROTIME 21.0 s (Abnormal) Range: 11.7-14.9 :57 HEPATIC FUNCTION PANEL Comments: PATIENT NOT FASTINGPERFORMED BY: [facility] Ksjcjr9958 [facility] [id number] (01654) ALT (SGPT) 15 [iU]/L (Normal) Range: 0-32 AST (SGOT) 20 [iU]/L (Normal) Range: 0-40 Alkaline Phosphatase, S 114 [iU]/L (Normal) Range: 39-117 Bilirubin, Direct 0.10 mg/dL (Normal) Range: 0.00-0.40 Comments: Please note reference interval change Bilirubin, Total <0.2 mg/dL (Normal) Range: 0.0-1.2 Albumin, Serum 4.9 g/dL (Abnormal) Range: 3.6-4.8 Protein, Total, Serum 7.1 g/dL (Normal) Range: 6.0-8.5 :57 IGA/IGD/IGG/IGM-EACH (10653) Comments: PATIENT NOT FASTINGPERFORMED BY: [employer] Bewzqw8131 [facility] [id number] Immunoglobulin E, Total 50 {IU/mL} (Normal) Range: 0-100 Immunoglobulin M, Qn, Serum 43 mg/dL (Normal) Range: 26-217 Immunoglobulin A, Qn, Serum 131 mg/dL (Normal) Range: 87-352 Immunoglobulin G, Qn, Serum 753 mg/dL (Normal) Range: 700-1600 80-Gpp-643686:57 EBV ACUTE PFOF IgG/IgM Comments: PATIENT NOT FASTINGPERFORMED BY: [employer] [facility] [id number] (44782) Interpretation: SPRCS (Normal) Comments: EBV Interpretation Chart [...] (LACTATE DEHYDROGENASE) Comments: PATIENT NOT FASTINGPERFORMED BY: [employer] Ghrpdx1904 [facility] [id number] (53279) LDH 191 [iU]/L (Normal) Range: 119-226 83-Tyn-335380:57 HIV-1 & 2 ANTBDY-SNGL SHAWN Comments: PATIENT NOT FASTINGPERFORMED BY: [address] [id number] (95871) HIV Screen 4th Generation wRfx Non Reactive (Normal) 80-Blr-953460:57 HEPATITIS PANEL (48329) Comments: PATIENT NOT FASTINGPERFORMED BY: [address] [id number] Hep C Virus Ab 0.1 {s/co_ratio} (Normal) Range: 0.0-0.9 Comments: Negative: < 0.8 Indeterminate: 0.8 - 0.9 Positive: > 0.9 . The CDC recommends that a positive HCV antibody result be followed up with a HCV Nucleic Acid Amplification test (863803). Hep B Core Ab, IgM Negative (Normal) HBsAg Screen Negative (Normal) Hep A Ab, IgM Negative (Normal) :56 Culture, Blood (WB) Comments: [facility] Mfrongtrye[address] [place], [address] CUB See Note (Normal) Comments: BCNo growth in 5 days. 3-Ntp-217841:56 EBV Acute Prof IgG / IgM Comments: [facility] (refer to report for specific site)refer to report for address and phone number INTERPRETATION Comment (Normal) Comments: EBV Interpretation ChartInterpretation EBV-IgM EA(D)-IgG VCA-IgG EBNA-IgGEBV Seronegative - - - -Early Phase + - - -Acute Primary + +or- + -InfectionConvalescence/Past - +or- + +InfectionReactivated +or- + + +Infection + Antibody Present - Antibody Ab sentPerformed at: [address] [id number] Director: Neo Campos PhD, Phone: [phone] EB-NAg [id number] 136.0 U/mL (Abnormal) Range: 0.0-17.9 Comments: Negative <18.0 Equivocal 18.0 - 21.9 Positive >21.9 EB-VCA [id number] 255.0 U/mL (Abnormal) Range: 0.0-17.9 Comments: Negative <18.0 Equivocal 18.0 - 21.9 Positive >21.9 EB-EA IgG 40738 18.4 U/mL (Abnormal) Range: 0.0-8.9 Comments: Hepatitis A, Hepatitis C and HIV antibodies may cross-reactwith this assay. Negative < 9.0 Equivocal 9.0 - 10.9 Positive >10.9 EB-VCA [id number] 36.1 U/mL (Abnormal) Range: 0.0-35.9 Comments: A second sample should be collected and tested no less than2-4 weeks. Negative <36.0 Equivocal 36.0 - 43.9 Positive >43.9 :56 Ferritin Comments: [address] [place], [address] FERRITIN 34 ng/mL (Normal) Range: 8-252 :56 Vitamin D,25 Hydroxy Comments: [address] [place], [address] Vitamin D 25-OH 29.2 ng/mL (Normal) Comments: Vitamin D 25(OH) Status Range Deficiency <20 ng/mL (50nmol/L) Insuffciency 20 - 30 ng/mL (50 - 75 nmol/L) Sufficiency 30 - 100 ng/mL (75 - 250 nmol/L) Toxicity >100 ng/mL (>250 nmol/L) 0-Twd-794265:03 INR Fingerstick Comments: [address] [place], [place] [address] INR ISTAT 1.00 (Normal) Comments: Critical Value > 3.5 :03 Prothrombin Time Fingerstick Comments: [address]. [place], [place] [address] PROTIME ISTAT 12.1 {SEC} (Normal) Range: 11.9-14.4 Comments: Reference Range 11.9 - 14.4 02-Cas-093551:55 Prothrombin Time w/INR Comments: [facility] [address]sofzan[address] [place], [place], [address] INR 2.6 (Normal) PROTIME 26.7 s (Abnormal) Range: 11.7-14.9 :44 GRETTA CULTURE-OTHER (76287) Comments: PATIENT NOT FASTINGPERFORMED BY: LabCoHudson County Meadowview HospitalEwoehm7917 [facility] [id number] Information: THROAT SRC:TH Result 1 RRF (Normal) Comments: Routine respiratory rajwinder Upper Respiratory Culture Final report (Normal) 69-Mpv-396778:31 Rapid Flu (73160 x 2) Influenza A Ag negative (Normal) :31 Rapid Strep Test, Office (68936) Rapid Strep Test, Office Negative (Normal) 74-Iop-570378:46 Microscopic Examination Comments: PATIENT NOT FASTINGPERFORMED BY: [facility] Vzqqyl8019 [facility] [id number] Bacteria Few (Normal) Mucus Threads Present (Normal) Crystal Type Calcium Oxalate (Normal) Crystals Present (Abnormal) Epithelial Cells (non renal) 0-10 {/hpf} (Normal) Range: 0 - 10 RBC 0-2 {/hpf} (Normal) Range: 0 - 2 WBC 0-5 {/hpf} (Normal) Range: 0 - 5 96-Set-838499:46 URINALYSIS (19822) Comments: PATIENT NOT FASTINGPERFORMED BY: [facility] Ojrwkl8389 [facility] [id number] Microscopic Examination See below: (Normal) Comments: Microscopic was indicated and was performed. Nitrite, Urine Negative (Normal) Urobilinogen,Semi-Qn 1.0 mg/dL (Normal) Range: 0.2-1.0 Bilirubin Negative (Normal) Occult Blood Negative (Normal) Ketones Negative (Normal) Glucose Negative (Normal) Protein Negative (Normal) WBC Esterase 1+ (Abnormal) Appearance Clear (Normal) Urine-Color Yellow (Normal) pH 6.0 (Normal) Range: 5.0-7.5 Specific [place] 1.018 (Normal) Range: 1.005-1.030 :46 CBC WITH MANUAL DIFF (10939) Comments: PATIENT NOT FASTINGPERFORMED BY: [facility]6370 [facility] [id number] Immature Grans (Abs) 0.0 {x10E3/uL} (Normal) Range: [...] 3.77-5.28 WBC 4.5 {x10E3/uL} (Normal) Range: 3.4-10.8 13-Krj-723343:46 Ferritin (54513) Comments: PATIENT NOT FASTINGPERFORMED BY: [facility]6370 [facility] [id number] Ferritin, Serum 10 ng/mL (Abnormal) Range: 15-150 74-Ejb-568297:46 Metabolic Panel, Comprehensive Comments: PATIENT NOT FASTINGPERFORMED BY: [facility]6370 [facility] [id number] (67421) ALT (SGPT) 18 [iU]/L (Normal) Range: 0-32 [...] Glucose, Serum 86 mg/dL (Normal) Range: 65-99 66-Sei-463311:46 AMYLASE (28543) Comments: PATIENT NOT FASTINGPERFORMED BY: [employer]6370 [facility] [id number] Amylase, Serum 81 U/L (Normal) Range: 31-124 67-Ule-217300:46 LIPASE (20726) Comments: PATIENT NOT FASTINGPERFORMED BY: LabVeterans Affairs [facility] System6370 [facility] [id number] Lipase, Serum 79 U/L (Abnormal) Range: 0-59 96-Bgb-916240:33 Prothrombin Time w/INR Comments: Order Date: 03/23/16Order Date: 03/23/16Interface Comments: Reason:Order Date: 03/23/16[facility] Dtlgjflwym[address] [place], [address] INR 2.0 (Normal) PROTIME 22.3 s (Abnormal) Range: 11.7-14.9 44-Yzj-280605:36 Prothrombin Time w/INR Comments: [facility] V[address]nr[address] [place], [address] INR 1.4 (Normal) PROTIME 17.1 s (Abnormal) Range: 11.7-14.9 [id number] Prothrombin Time w/INR Comments: Order Date: 05/11/16Order Info: 6301-6 - *PT/INR - Standing OrderComments: Standing Order-Reason:Order Date: 05/11/16Order Info: 6301-6 - *PT/INR - Standing OrderComments: Standing Order- Reason:[facility] [address] [place], [address] INR 1.2 (Normal) PROTIME 14.8 s (Normal) Range: 11.7-14.9 [id number] Prothrombin Time w/INR Comments: Order Date: 05/11/16Order Info: 6301-6 - *PT/INR - Standing OrderComments: Standing Order-Reason:Order Date: 05/11/16Order Info: 6301-6 - *PT/INR - Standing OrderComments: Standing Order-Reason:Order Da te: 05/11/16Order Info: 6301-6 - *PT/INR - Standing OrderComments: Standing Order-Reason:[facility] Vpknmxrvat[address] [place], [id number] INR 1.2 (Normal) PROTIME 15.1 s (Abnormal) Range: 11.7-14.9 04-Jun-20160:00 Culture, Nose Comments: [facility] Dotktearpc7083 [address] [place], [id number] CUN See Note (Normal) Comments: Comments: NARESGram StainGram Stain Rare White Blood Cells 1+ Epithelial cells 4+ Gram positive rods Nasoph. CultNo Haemophilus, Streptococcus pneumoniae, beta-hemolytic Streptococcus or Staphylococcus aureus isolated. :00 Culture, Throat Comments: [facility] Nafeskjmct[address] [place], [place], [address] CUT See Note (Normal) Comments: Comments: NARESCulture, ThroatNo Haemophilus, Streptococcus pneumoniae, beta-hemolytic Streptococcus or Staphylococcus aureus isolated. 13-Pjt-040186:05 Rapid Flu (46125 x 2) Influenza A Ag neg (Normal) :45 CBC W/Diff, Automated Comments: Order Date: 03/18/16Order Date: [facility] Figmaigjmi8657 [address] [place], [place], [id number] Absolute Lymph 2.95 {X10_3/ul} (Normal) Range: 0.83-4.51 [...] 1'CKMB' Serial Specimen #1, #2 or #3? [address] [place] [address] Yfsltwivek3302 Camilo [place], [place], [address] CKRI 3.2 % (Abnormal) Range: 0.0-1.4 Comments: RELATIVE INDEX >1.5% IS PRESUMPTIVELY POSITIVE CPKMB 1.8 ng/mL (Normal) Range: 0.0-5.0 Comments: CK-MB and RI Interpretation MB Relative Index Non-AMI <or= 5 NA Indeterminate > 5 <or= 4 AMI > 5 > 4 CPK TOTAL 57 U/L (Normal) Range: 26-192 :45 Erythrocyte Sed Rate Comments: Order Date: 03/18/16Order Date: 03/18/16[facility] Xtmqiaayqm2375 Cam[address] [place], [place], [id number] SED RATE 1 mm/h (Normal) Range: 0-30 :45 Myoglobin, Serum Comments: Order Date: 03/18/16[facility] (refer to report for specific site)refer to report for address and phone number Myoglobin, Ser 23 ng/mL (Abnormal) Range: 25-58 Comments: Performed at: - [facility] [address] [id number] Director: Neo Campos PhD, Phone: [phone] :[phone] Troponin-I Comments: Order Date: 03/18/16TROP ADDED 03/19/16Order Date: 03/18/16'TROP' Serial specimen #1, #2, #3, or #4: 1'CKMB' Serial Specimen #1, #2 or #3? [address] [place] [address] Nvhjvwqcfs5584 Camilo [place], [place], [address] TROPONIN-I < 0.02 ng/mL (Normal) Comments: TROPONIN-I EXPECTED VALUES <0.05 NEGATIVE 0.06 - 0.59 AT RISK OF GA > OR = 0.60 SUGGEST GA 21-Dfb-366144:00 Basic Metabolic Profile (BMP) Comments: 'TROP' Serial specimen #1, #2, #3, or #4: [facility] Nospdecwdz6413 [place], [address] GAP 6 (Normal) Range: 5-15 [...] 7-18 GLU 101 mg/dL (Normal) Range: 70-110 20-Zcy-564595:00 CBC W/Diff, Automated Comments: [facility] Ljcuouonoh7883 [place], [address] Absolute Lymph 2.27 {X10_3/ul} (Normal) [...] 4.2-5.4 WBC 4.9 K/mm3 (Normal) Range: 4.4-11.0 24-Pmt-350118:00 Lipase Comments: 'TROP' Serial specimen #1, #2, #3, or #4: [address] [place] [address] Bxibjgwxrn1584 [place], [place], [address] LIPASE 351 U/L (Normal) Range: 73-393 14-Wtc-157743:00 Liver Profile Comments: 'TROP' Serial specimen #1, #2, #3, or #4: [address] [place] [address] Isxpbmjfax4532 [place], [place], [address] D BILI 0.15 mg/dL (Normal) Range: 0.00-0.30 T BILI 0.30 mg/dL (Normal) Range: 0.20-1.00 ALT 23 U/L (Normal) Range: 12-78 ALK P 81 U/L (Normal) Range: 50-136 AST 24 U/L (Normal) Range: 15-37 GLOB 2.8 g/dL (Normal) Range: 2.3-3.5 ALB 4.0 g/dL (Normal) Range: 3.4-5.0 T PROT 6.8 g/dL (Normal) Range: 6.4-8.2 16-Bar-987605:00 Troponin-I Comments: 'TROP' Serial specimen #1, #2, #3, or #4: [address] [place] [address] Sjpyodewiy9373 Camilo [place], [place], [address] TROPONIN-I < 0.02 ng/mL (Normal) Comments: TROPONIN-I EXPECTED VALUES <0.05 NEGATIVE 0.06 - 0.59 AT RISK OF GA > OR = 0.60 SUGGEST GA 00-Zfj-870466:08 Osmolality, Urine Comments: Order Date: 02/16/16[facility] [address] [place], [address] OSMOLALITY,UR 310 {mOsm/KG} (Normal) Comments: OSMOLALITY URINE REFERENCE INTERVALS 24-hour Urine 300 - 900 mOsm/kg Random Urine 50 - 1400 mOsm/kg After 12 Hr fluid restriction >850 mOsm/kg 37-Mji-068822:50 Amylase Comments: [facility] Cehwndjssy[address] [place], [place], [address] PREMA 80 U/L (Normal) Range: 25-115 75-Cdd-513286:50 CBC W/Diff, Automated Comments: [facility] Ssqvcdhfse1739 [address] [place], [place], [address] Absolute Lymph 1.51 {X10_3/ul} (Normal) Range: 0.83-4.51 [...] 4.2-5.4 WBC 4.3 K/mm3 (Abnormal) Range: 4.4-11.0 19-Fus-212880:50 Comprehensive Metabolic Profil Comments: [facility] Kawqtfeydy0534 [address] [place], [place], [address] GAP 6 (Normal) Range: 5-15 CO2 28.0 [...] 7-18 GLU 98 mg/dL (Normal) Range: 70-110 92-Bqt-603496:50 Lipase Comments: [facility] Drpqdlnuyw9353 [address] [place], [address] LIPASE 424 U/L (Abnormal) Range: 73-393 49-Saw-725074:50 Osmolality, Serum Comments: [place] [address] [address] [place], [address] OSMOLALITY,SER 275 {mOsm/KG} (Normal) Range: 275-295 89-Eqi-841344:50 Vitamin B12 489 pg/mL (Normal) Comments: [address] [place], [address] ; will review on 02/19 Range: 211-911 33-Anc-028446:50 Vitamin D,25 Hydroxy Comments: [place] [address] [address] [place], [address] Vitamin D 25-OH 37.6 ng/mL (Normal) Comments: Vitamin D 25(OH) Status Range Deficiency <20 ng/mL (50nmol/L) Insuffciency 20 - 30 ng/mL (50 - 75 nmol/L) Sufficiency 30 - 100 ng/mL (75 - 250 nmol/L) Toxicity >100 ng/mL (>250 nmol/L) :00 Ferritin Comments: [address] [place], [address] FERRITIN 13 ng/mL (Normal) Range: 8-252 :00 Lipid Profile Comments: [address] [place], [address] VLDL 28 [...] 200-240 mg/dL Borderline >240 mg/dL High Risk 1-Ruu-268389:40 CBC W/Diff, Automated Comments: Order Date: 09/08/15Has pt arrived? [facility] Lcixgufuie2[address] [place], [place], [address] Absolute Lymph 1.80 {X10_3/ul} (Normal) Range: 0.83-4.51 [...] Profil Comments: Order Date: 09/08/15Has pt arrived? [facility] Nxtdkljzwx5800 [place], [address] GAP -1 (Abnormal) Range: 5-15 CO2 30.0 [...] mg/dL (Normal) Range: 70-110 :16 Amylase Comments: [facility] Fkyfwrrfux65[address] [place], [address] PREMA 95 U/L (Normal) Range: 25-115 :16 Lipase Comments: [facility] [address] [place], [address] LIPASE 568 U/L (Abnormal) Range: 73-393 9-Tlk-247044:29 Influenza A&B Viral Comments: PATIENT NOT FASTINGPERFORMED BY: [employer] [facility] [id number] Information: SRC:NOS [id number] Culture (13275) Viral Culture,Rapid,Influenza FLUABN (Normal) Comments: Negative:No Influenza A or B detected. 4-Lkp-054240:49 Rapid Flu (79817 x 2) Influenza A Ag neg (Normal) :01 CBC (Auto) (98864) Comments: now and in six months (approximately); PATIENT WAS FASTINGPERFORMED BY: [employer]70 [facility] [id number] Information: [id number] Platelets 357 {x10E3/uL} (Normal) Range: 150-379 RDW [...] Basic Comments: now; PATIENT WAS FASTINGPERFORMED BY: [employer] [facility] [id number] (28484) Calcium, Serum 9.1 mg/dL (Normal) Range: 8.7-10.2 [...] Glucose, Serum 102 mg/dL (Abnormal) Range: 65-99 40-Nis-728083:01 CALCIFIDIOL (79367) VIT D 25 Comments: now and in six months (approximately); PATIENT WAS FASTINGPERFORMED BY: VidedressingAt[facility] Health [facility] [id number] Vitamin D, 25-Hydroxy 32.8 ng/mL (Normal) Range: 30.0-100.0 Comments: Vitamin D deficiency has been defined by the Wallace ofMedicine and an Endocrine Society practice guideline as alevel of serum 25-OH vitamin D less than 20 ng/mL (1,2).The Endocrine Society went on to further define vitamin Dinsufficiency as a level between 21 and 29 ng/mL (2).1. IOM (Wallace of Medicine). 2010. Dietary reference intakes for calcium and D. [place]: The National Academies Press.2. Candelaria MF, Janey NC, Yolande GROSS, et al. Evaluation, treatment, and prevention of vitamin D deficiency: an Endocrine Society clinical practice guideline. JCEM. 2010; 96(7):1911-30. 3-Rih-990708:06 Sputum Culture (17085) Comments: PATIENT NOT FASTINGPERFORMED BY: [employer]70 [facility] [id number] Information: [id number] Result 1 RRF (Normal) Comments: Routine respiratory rajwinder Lower Respiratory Culture Final report (Normal) 9-Jlp-757401:12 Rapid Flu (76039 x 2) Influenza A Ag neg a and b (Normal) 55-Chl-652132:01 Urinalysis, Office (16718) UA - LEUKOCYTE ESTERASE Negative (Normal) UA - NITRITE Negative (Normal) URINE UROBILINGN YANCI TIMED Normal mg/dL (Normal) UA - PROTEIN Negative mg/dL (Normal) UA - PH 6.0 (Normal) Comments: 5.5 UA - BLOOD Negative (Normal) UA - SPECIFIC GRAVITY 1.025 (Normal) UA - KETONES Negative mg/dL (Normal) UA - BILIRUBIN Negative (Normal) UA - GLUCOSE Negative (Normal) 51-Ied-356613:40 Lipase (46800) Comments: PATIENT NOT FASTINGPERFORMED BY: [employer]6370 [facility] [id number] Lipase, Serum 113 U/L (Abnormal) Range: 0-59 85-Wsm-860245:40 Amylase (20148) Comments: PATIENT NOT FASTINGPERFORMED BY: [employer] [place] [address] [id number] Information: [id number] Amylase, Serum 104 U/L (Normal) Range: 31-124 4-Mkv-326071:54 Sputum Culture (35001) Comments: PATIENT NOT FASTINGPERFORMED BY: [employer] [place] [address] [id number] Information: SRC: THROAT [id number] Result 1 RRF (Normal) Comments: Routine respiratory rajwinder Lower Respiratory Culture Final report (Normal) 2-Dup-175875:55 Pathology Report Comments: PERFORMED BY: [facility]MAGRUD[facility]T.[facility] Cyto Dgiuj46550 [facility] [id number] BY: [facility] Dermatopathology Olhlkvd[address] [id number] Information: [id number] See MATER Comments: Material submitted: .PUNCH BIOPSY [...] IS NEGATIVE FOR FUNGAL FORMS.Pathologist provided ICD-9:692.9CPT .029142, 111238 22-Owm-823093:41 Lipid Panel (23533) Comments: PATIENT WAS FASTINGPERFORMED BY: [employer]6370 [facility] [id number] LDL/HDL Ratio 1.0 {ratio_units} (Normal) Range: 0.0-3.2 [...] - 169 >19 years 100 - 199 72-Abt-640303:41 Metabolic Panel, Comments: PATIENT WAS FASTINGPERFORMED BY: [employer]6370 [facility] [id number] Information: [id number] Comprehensive (98865) ALT (SGPT) 13 [iU]/L (Normal) Range: 0-32 [...] Glucose, Serum 97 mg/dL (Normal) Range: 65-99 05-Ofr-440336:41 Vitamin B-12 (cyanocobalamin) Comments: PATIENT WAS FASTINGPERFORMED BY: LabKate's GoodnessHudson County Meadowview HospitalMuyaav6436 [facility] [id number] ([address]) Vitamin B12 632 pg/mL (Normal) Range: 211-946 :41 CBC (Auto) (18898) Comments: PATIENT WAS FASTINGPERFORMED BY: LabCoHudson County Meadowview HospitalXmfwfa8183 [facility] [id number] Platelets 270 {x10E3/uL} (Normal) Range: 150-379 RDW 13.9 % (Normal) Range: 12.3-15.4 MCHC 32.8 g/dL (Normal) Range: 31.5-35.7 MCH 29.5 pg (Normal) Range: 26.6-33.0 MCV 90 fL (Normal) Range: 79-97 Hematocrit 36.6 % (Normal) Range: 34.0-46.6 Hemoglobin 12.0 g/dL (Normal) Range: 11.1-15.9 RBC 4.07 {x10E6/uL} (Normal) Range: 3.77-5.28 WBC 8.5 {x10E3/uL} (Normal) Range: 3.4-10.8 :41 Ferritin (76714) Comments: PATIENT WAS FASTINGPERFORMED BY: LabCoHudson County Meadowview HospitalAqpaex2186 [facility] [id number] Ferritin, Serum 28 ng/mL (Normal) Range: 15-150 :41 CALCIFIDIOL (94238) VIT D 25 Comments: PATIENT WAS FASTINGPERFORMED BY: [facility] Xaguko4538 [facility] [id number] Vitamin D, 25-Hydroxy 24.3 ng/mL (Abnormal) Range: 30.0-100.0 Comments: Vitamin D deficiency has been defined by the Wallace ofSumma Health Wadsworth - Rittman Medical Centercine and an Endocrine Society practice guideline as alevel of serum 25-OH vitamin D less than 20 ng/mL (1,2).The Endocrine Society went on to further define vitamin Dinsufficiency as a level between 21 and 29 ng/mL (2).1. IOM (Wallace of Medicine). 2010. Dietary reference intakes for calcium and D. [place]: The National Academies Press.2. Candelaria MF, Janey NC, Yolande GROSS, et al. Evaluation, treatment, and prevention of vitamin D deficiency: an Endocrine Society clinical practice guideline. JCEM. 2010; 96(7):1911-30. :55 CBC-Complete Blood Cnt No Diff Comments: Test performed at:[facility] Vsixhljqgm4425 [address]ilo [place], [place] [address] MPV 9.5 fL (Normal) Range: 6.2-12.0 PLT [...] 4.2-5.4 WBC 5.1 K/mm3 (Normal) Range: 4.4-11.0 57-Qjw-168437:55 Ferritin Comments: Test performed at:[facility] Utitfgbtcw7279 [place] [address] FERRITIN 23 ng/mL (Normal) Range: 8-252 34-Hqx-789317:55 Iron Comments: Test performed at:[facility] [address] [place] [address] IRON 75 ug/dL (Normal) Range: 50-170 18-Shs-133417:53 CBC W/Diff, Automated Comments: Test performed at:[facility] [address] [place], [place] [address] Absolute Lymph 1.57 {X10_3/ul} (Normal) Range: 0.83-4.51 [...] :53 Comprehensive Metabolic Profil Comments: Test performed at:[facility] K[address]vm[address] [place] [address] GAP 5 (Normal) Range: 5-15 CO2 [...] Range: 70-110 :53 Ferritin Comments: Test performed at:[facility] Xsnyhempcu7797 [place] [address] FERRITIN 13 ng/mL (Normal) Range: 8-252 :53 Lipid Profile Comments: Test performed at:[facility] Qjtriaqljb[address] [place] [address] VLDL 19 mg/dL (Normal) Range: 5-40 [...] 200-240 mg/dL Borderline >240 mg/dL High Risk 52-Zll-393810:53 Vitamin B12 > 2000 pg/mL (Abnormal) Comments: Test performed at:[facility] [address]csdtnt[address] [place] [address] Range: 211-911 40-Xfy-462292:46 CBC W/Diff, Automated Comments: Test performed at:[facility] [address]ws[address] [place] [id number] Absolute Lymph 1.87 {X10_3/ul} (Normal) Range: 0.83-4.51 [...] 4.2-5.4 WBC 4.1 K/mm3 (Abnormal) Range: 4.4-11.0 50-Pyu-194912:46 Comprehensive Metabolic Profil Comments: Test performed at:[facility] Tcvmrvaqfl7[address]ario[address] [place], [place] [address] GAP 4 (Abnormal) Range: 5-15 CO2 28.0 [...] :46 Vitamin D,25 Hydroxy Comments: Test performed at:[facility] Kayeiitcbn62[address] [place] [address] Vitamin D 25-OH 30.6 ng/mL (Normal) Comments: Vitamin D 25(OH) Status Range Deficiency <20 ng/mL (50nmol/L) Insuffciency 20 - 30 ng/mL (50 - 75 nmol/L) Sufficiency 30 - 100 ng/mL (75 - 250 nmol/L) Toxicity >100 ng/mL (>250 nmol/L) 81-Rqn-962177:04 CALCIFIDIOL (26537) VIT D Comments: PATIENT NOT FASTINGPERFORMED BY: [employer] Bstcnt2924 [facility] [id number] Information: [id number] 25 Vitamin D, 25-Hydroxy 19.2 ng/mL (Abnormal) Range: 30.0-100.0 Comments: Vitamin D deficiency has been defined by the Wallace ofMedicine and an Endocrine Society practice guideline as alevel of serum 25-OH vitamin D less than 20 ng/mL (1,2).The Endocrine Society went on to further define vitamin Dinsufficiency as a level between 21 and 29 ng/mL (2).1. IOM (Wallace of Medicine). 2010. Dietary reference intakes for calcium and D. [place]: The National Academies Press.2. Candelaria MF, Janey NC, Yolande GROSS, et al. Evaluation, treatment, and prevention of vitamin D deficiency: an Endocrine Society clinical practice guideline. JCEM. 2010; 96(7):1911-30. 51-Myr-389216:04 Ferritin (97113) Comments: PATIENT NOT FASTINGPERFORMED BY: [facility] Lqnrjg5321 [facility] [id number] Ferritin, Serum 34 ng/mL (Normal) Range: 15-150 21-Ogy-963418:05 METABOLIC PANEL, COMPREHENSIVE Comments: PATIENT NOT FASTINGPERFORMED BY: [employer] Wvwvob3977 [facility] [id number] (11170) ALT (SGPT) 10 [iU]/L (Normal) Range: 0-32 [...] Glucose, Serum 86 mg/dL (Normal) Range: 65-99 42-Wdp-711243:05 CBC WITH MANUAL DIFF Comments: PATIENT NOT FASTINGPERFORMED BY: LabCoH[facility] Meadowview HospitalRejvmm5046 [facility] [id number] Information: [id number],2ND ORDER NO DRAW F (16122) Immature Grans (Abs) 0.0 {x10E3/uL} (Normal) Range: [...] 5.2 {x10E3/uL} (Normal) Range: 3.4-10.8 :05 CALCIFIDIOL (75412) VIT D 25 Comments: PATIENT NOT FASTINGPERFORMED BY: [facility] Kmptdb1116 [facility] [id number] Vitamin D, 25-Hydroxy 19.6 ng/mL (Abnormal) Range: 30.0-100.0 Comments: Vitamin D deficiency has been defined by the Wallace ofMedicine and an Endocrine Society practice guideline as alevel of serum 25-OH vitamin D less than 20 ng/mL (1,2).The Endocrine Society went on to further define vitamin Dinsufficiency as a level between 21 and 29 ng/mL (2).1. IOM (Wallace of Medicine). 2010. Dietary reference intakes for [...] 4.2-5.4 WBC 3.3 K/mm3 (Abnormal) Range: 4.4-11.0 5-Ncx-920936:51 CMP GAP 5 (Normal) Range: 5-15 CO2 [...] CHOL 168 mg/dL (Normal) Comments: <200 mg/dL Qgptsitfi187-932 mg/dL Borderline>240 mg/dL High Risk :51 VITD 38.8 mg/mL (Normal) Comments: Vitamin D 25(OH) Status RangeDeficiency <20 ng/mL (50nmol/L)Insuffciency 20 - 30 ng/mL (50 - 75 nmol/L)Sufficiency 30 - 100 ng/mL (75 - 250 nmol/L)Toxicity >100 ng/mL (>250 nmol/L) 05-Ikw-934513:07 Lipase (87462) Comments: PERFORMED BY: [employer] [facility] [id number] Lipase, Serum 67 U/L (Abnormal) Range: 0-59 :07 Amylase (77081) Comments: PERFORMED BY: CB Bounce Imagingox RoadDublin [place] [id number] Amylase, Serum 92 U/L (Normal) Range: 31-124 75-Nmz-915853:11 Urinalysis, Office (09626) UA - LEUKOCYTE ESTERASE Negative (Normal) UA - NITRITE Negative (Normal) URINE UROBILINGN YANCI TIMED Normal mg/dL (Normal) UA - PROTEIN Negative mg/dL (Normal) UA - PH 5 (Abnormal) Comments: 5.5 UA - BLOOD Negative (Normal) UA - SPECIFIC GRAVITY 1.015 (Normal) UA - KETONES 15 mg/dL (Abnormal) UA - BILIRUBIN Small (Normal) UA - GLUCOSE Negative (Normal) 32-Inm-822052:28 GRETTA CULTURE-OTHER (60122) Comments: PATIENT NOT FASTINGPERFORMED BY: [place] 1795570 [facility] [id number] Information: SRC:THRT [id number] Result 1 RRF (Normal) Comments: Routine respiratory rajwinder Upper Respiratory Culture Final report (Normal) 18-Wme-081517:32 Rapid Strep Test, Office (79599) Rapid Strep Test, Office Negative (Normal) 39-Zkg-137836:02 Iron Binding Capacity Comments: PATIENT NOT FASTINGPERFORMED BY: [facility]6370 [facility] [id number] Information: [id number] (TIBC) (43704) Iron Saturation 6 % (Abnormal) Range: 15-55 Iron, Serum 32 ug/dL (Abnormal) Range: 35-155 UIBC 461 ug/dL (Abnormal) Range: 150-375 Iron Bind.Cap.(TIBC) 493 ug/dL (Abnormal) Range: 250-450 51-Rnx-630207:02 Ferritin (75415) Comments: PATIENT NOT FASTINGPERFORMED BY: [facility]6370 [facility] [id number] Ferritin, Serum 7 ng/mL (Abnormal) Range: 15-150 3-Axz-431734:19 PREMA 80 U/L (Normal) Range: 25-115 3-Isk-456862:19 B12 386 pg/mL (Normal) Range: 211-911 9-Kwe-079059:19 CMP GAP 7 (Normal) Range: 5-15 CO2 [...] CHOL 181 mg/dL (Normal) Comments: <200 mg/dL Etbkijnfk517-674 mg/dL Borderline>240 mg/dL High Risk :19 VITD [...] 7-18 GLU 79 mg/dL (Normal) Range: 70-110 78-Idc-789874:18 TS Ab SCREEN GEL NEGATIVE (Normal) SCREEN CELL I NEGATIVE (Normal) SCREEN CELL II NEGATIVE (Normal) SCREEN CELL III NEGATIVE (Normal) BLOOD TYPE GEL O POSITIVE (Normal) 41-Ljq-301182:17 Metabolic Panel, Comments: PATIENT NOT FASTINGPERFORMED BY: [facility]CoH[facility]ow[facility] HospitalOfwpqy0896 [facility] [id number] Information: [id number] Comprehensive (03834) ALT (SGPT) 13 [iU]/L (Normal) Range: 0-32 [...] s (Normal) Range: 11.9-14.4 :41 VIT D,25 40197 20.3 ng/mL (Abnormal) Range: 30.0-100.0 Comments: Vitamin D deficiency has been defined by the Wallace ofMedicine and an Endocrine Society practice guideline as alevel of serum 25-OH vitamin D less than 20 ng/mL (1,2).The Endocrine Society went on to further define vitamin Dinsufficiency as a level between 21 and 29 ng/mL (2).1. IOM (Wallace of Medicine). 2010. Dietary reference intakes for calcium and D. Lal [place]: The National Academies Press.2. Candelaria MF, Janey ELIAS, Yolande GROSS, et al. Evaluation, treatment, and prevention of vitamin D deficiency: an Endocrine Society clinical practice guideline. JCEM. 2010; 96(7): 1911-30.Performed at: - [facility]ness[address] [id number] Director: Yony San MD, Phone: [phone] at: [facility] [id number] Director: Era Tinoco MD, Phone: [phone] 29-Wqw-467324:41 VITD 1,25 22424 44.5 pg/mL (Normal) Range: 10.0-75.0 1-Gzt-603691:09 PREMA 87 U/L (Normal) Range: 25-115 6-Bgr-214956:09 CBCD ABSOLUTE NEUT 4.0 3/uL (Normal) Range: [...] Please note:LIPASE revised reference range effective 09. 28-Phe-380021:05 LIPID Comments: COMMENTS: FAX RESULTS TO DR [...] 200-240 mg/dL Borderline >240 mg/dL High Risk 43-Jba-333450:54 BILAT SCRN DIGITAL & CAD Radiology Report [...] 11/20/10 0112 Sign by: Bartolome Patel MD 83-Rji-873875:54 DEXA BONE DENSITY STUDY (HP) Radiology Report See Note (Normal) Comments: CLINICAL:Female, 55 years old. The patient is postmenopausal. EXAMINATION:DUAL ENERGY X-RAY ABSORPTIOMETRY / DEXA. TECHNIQUE:Bone Mineral Density (BMD) measurements of lumbar spine and bila teralhipswer e obtained using a [employer] scanner.. COMPARISON:Comparison is made with prior study [...] on 11/20/1030 Sign by: Bartolome Patel MD 3-Xau-286468:46 DESIRAE DIR SEMI-QL Comments: ORDERED CBC LUZ [...] DNA UAPROTEIN C3 C4 TSH; appt 11/02/10 CUSTOMER ACCOUNT REPRESENTATIVE AB 14 AU/mL (Normal) ANTI-TORRES AB 7 [...] ANTI-SCL 70 14 AU/mL (Normal) :46 ANTI-CCP 012461 < 1 {units} (Normal) Comments: ORDERED CBC [...] C4 TSH Range: 8-252 :46 HB CORE [id number] SeeNote (Normal) Comments: ORDERED CBC LUZ MARINA FEDRCOREY ORDERED CMP CBCD CRP ESR VITD HEPB SURF AB CCPHEPB IRINA AG HEPC DESIRAE RA HEPB CORE IGM UAC SCL70 ANTOINE ANTI JOANTICENT AB SSA SSB DNA UAPROTEIN C3 C4 TSH Comments: Result: Negative Performed at: - [facility] [address] [id number] Director: Era Tinoco MD, Phone: [phone] at: - [facility] [id number] Director: Yony San MD, Phone: [phone] :46 HBsAg 6510 Comments: ORDERED CBC LUZ [...] of antibody present. :46 HEP C AB 973327 <0.1 (Normal) Comments: ORDERED CBC LUZ MARINA [...] C4 TSH Range: 0.358-3.74 :46 VIT D,25 14026 9.3 ng/mL (Abnormal) Comments: ORDERED CBC LUZ [...] 4.2-5.4 WBC 9.8 K/mm3 (Normal) Range: 4.4-11.0 00-Kcj-356002:10 FERRITIN 21 ng/mL (Normal) Comments: COMMENTS: FAX RESULTS TO DR. CECI FARIAS DRAWRESULTS FAXED 07/17/10 VLADIMIR SALAMANCA. Range: 8-252 02-Neg-413697:10 IRON 125 ug/dL (Normal) Comments: COMMENTS: FAX RESULTS TO DR. CECI FARIAS DRAWRESULTS FAXED 07/17/10 VLADIMIR SALAMANCA. Range: 50-170 12-Cfr-884566:20 CBC With Differential/Platelet Comments: PERFORMED BY: [facility] [facility] [id number] Baso (Absolute) 0.0 {x10E3/uL} (Normal) Range: 0.0-0.2 [...] 11.7-15.0 WBC 5.3 {x10E3/uL} (Normal) Range: 4.0-10.5 62-Chv-205594:20 Comp. Metabolic Panel (14) Comments: [facility]FORMED BY: [facility] [id number] ALT (SGPT) 18 [iU]/L (Normal) Range: 0-40 [...] Serum 14 ng/mL (Normal) Comments: PERFORMED BY: [facility] [id number] 14:20 Range: 13-150 61-Ukt-355024:20 Iron and TIBC Comments: PERFORMED BY: [facility] [id number] Iron Saturation 23 % (Normal) Range: 15-55 Iron, Serum 106 ug/dL (Normal) Range: 35-155 UIBC 361 ug/dL (Normal) Range: 150-375 Iron Bind.Cap.(TIBC) 467 ug/dL Range: 250-450 (Abnormal) TSH 1.760 {uIU/mL} Comments: PERFORMED BY: [facility] [id number] :20 (Normal) Range: 0.450-4.500 C DIF TOXIN/AG See Note (Normal) Comments: PT COLLECTED SPECIMEN 12/30 @2300 :45 Comments: C. DIFF ANTIGENS NEGATIVE :45 CUL STOOL/SHIG Comments: PT COLLECTED SPECIMEN 12/30 @2300 CULTURE, STOOL See Note (Normal) Comments: COPY OF REPORT SENT TO INFECTION [facility]OL 01/[facility]/10 [facility]. No Salmonella, Shigella or Yersinia isolated.No [...] Crytosporidium parvum,Cyclospora, or Microsporidia.__ TESTING PERFORMED AT [facility]. ORIGINAL REPORT ONFILE IN LAB [...] (Normal) GLU 102 mg/dL (Normal) Range: 70-110 27-Xll-551218:37 OCCULT BLOOD FECES SCREEN (66477) OCCULT BLOOD FECES SCREEN negative (Normal) 59-Ljy-098136:03 CBCD,SMEAR DIFF PLT EST SeeNote (Normal) Comments: [...] 4.2-5.4 WBC 4.2 K/mm3 (Abnormal) Range: 4.4-11.0 09-Gom-900102:03 COMP METABOLIC CL 96 mmol/L (Abnormal) Range: [...] 6.4-8.2 GLU 94 mg/dL (Normal) Range: 70-110 61-Agr-424555:03 FERRITIN 12 ng/mL (Normal) Range: 8-252 83-Osk-515107:03 IRON 128 ug/dL (Normal) Range: 50-170 77-Tws-988929:03 LIPID LDL 86 mg/dL (Normal) Range: 0-130 VLDL 18 mg/dL (Normal) Range: 5-40 HDL 79 mg/dL (Normal) Comments: Reference RangeHDL <40 mg/dL Low HDL CholesterolHDL >or= 60 mg/dL High HDL Cholesterol CHOL 183 mg/dL (Normal) Comments: <200 mg/dL Ygljayfoy773-976 mg/dL Borderline>240 mg/dL High Risk TRIG 88 mg/dL (Normal) Comments: Serum Triglycerides Reference IntervalNormal <150 mg/dLBorderline high 150 - 199 mg/dLHigh 200 - 499 mg/ dLVery High > or = 500 mg/dL 19-Vik-393218:03 VITAMIN B12 342 pg/mL (Normal) Range: 254-1320 10-Apr-20090:00 FLU A+B DIRECT See Note (Normal) Comments: Negative test results should be confirmed by culture. Order Rapid Viral Culture for Influenzae A+B ([id number]) if clinically indicated. INFLUENZA ANTIGEN,DIRECT Presumptive NEGATIVE for Influenza A/B Antigen (See Note) 55-Lqv-877344:43 CHEST, PA AND LATERAL Radiology Report See Note (Normal) Comments: Exam Number: [id number] CLINICAL DATAInterstitial lung disease, cough. CHEST PA [...] pneumonia. Possible bronchitis. Reported By: FLORINDA CAMPOS 93-Asl-243779:45 L/S SPINE,MIN 4 VIEWS Radiology Report See Note (Normal) Comments: Exam Number: [id number] CLINICAL PROBLEMLow back pain post fall. LUMBAR [...] and spondylosis. Reported By: AROLDO TILLMAN M.D. 92-Hnm-200213:44 KNEE,4 OR MORE VIEWS Radiology Report See Note (Normal) Comments: Exam Number: [id number] CLINICAL PROBLEMPain both knees post fall. FOUR [...] patellofemoral compartments. Reported By: AROLDO TILLMAN M.D. 26-Axa-881717:44 KNEE,4 OR MORE VIEWS Radiology Report See Note (Normal) Comments: Exam Number: [id number] CLINICAL PROBLEMLeft knee pain status post fall. [...] Order Rapid Viral Culture for Influenzae A+B ([id number]) if clinically indicated. INFLUENZA ANTIGEN,DIRECT Presumptive NEGATIVE for Influenza A/B Antigen (See Note) 12-Sep-2008 PREMA 66 U/L (Normal) Range: 25-115 12:11 87-Fse-920447:11 CBCD BASO% 0.2 % (Normal) Range: 0-1 [...] 4.2-5.4 WBC 4.2 K/mm3 (Abnormal) Range: 4.4-11.0 55-Kpn-205166:11 COMP METABOLIC A/G 1.2 {RATIO} (Normal) Range: [...] T PROT 6.9 g/dL (Normal) Range: 6.4-8.2 35-Yce-614856:11 ESR SED RATE 3 mm/h (Normal) Range: 0-30 40-Vhq-094877:11 LIPASE 229 U/L (Normal) Range: 114-286 05-Acp-725892:11 LIPID CHOL 180 mg/dL (Normal) Comments: <200 [...] mg/dL VLDL 19 mg/dL (Normal) Range: 5-40 56-Yfp-890750:11 MG 1.9 mg/dL (Normal) Range: 1.5-2.2 62-Tgc-446303:00 CBCD BASO% 0.3 % (Normal) Range: 0-1 [...] 11.6-14.6 WBC 4.9 K/mm3 (Normal) Range: 4.4-11.0 25-Ofz-248481:00 COMP METABOLIC A/G 1.2 {RATIO} (Normal) Range: [...] T PROT 6.7 g/dL (Normal) Range: 6.4-8.2 69-Wck-174721:00 METHYLM 468712 330 nmol/L (Normal) Range: 73-376 Comments: The reference range for methylmalonic acid has been set at+3sd above the mean for healthy blood bank donors. In theclinical assessment of patients with megaloblastic anemiasa cutoff of +3sd provides gre ater specificity in thediagnosis of the vitamin deficiency states, despite thesacrifice of some sensitivity.Performed At: [facility] [address] [id number] 1-Dcn-684715:55 Lower Respiratory Culture Comments: Clinical Information: SRC:SP PERFORMED BY: [facility] [id number] Lower Respiratory Culture Final report (Normal) Result 1 RRF (Normal) Comments: Routine respiratory rajwinder :3 PREMA 62 U/L (Normal) Range: 25-115 6 :36 DESIRAE-D 242947 DESIRAE-DIRECT 23 AU/mL (Normal) Range: 0-99 Comments: [...] {IU/mL} (Normal) Range: 0.0-13.9 Comments: Performed At: [facility] [place], [place] [id number] :36 TSH 1.76 {uIU/mL} (Normal) Range: 0.34-4.82 :29 HgA1C , Office (93186) HgA1C , Office 5.5 % (Normal) Range: 4.6 - 7.1 :29 Blood Glucose , Office (00876) Blood Glucose , Office 108 (Normal) :51 CHEST, PA AND LATERAL Radiology Report See Note (Normal) Comments: Exam Number: [id number] PA AND LATERAL CHEST HISTORY Being done [...] acute infiltrate. Reported By: JERARDO BEAULIEU M.D. 1-Usg-878147:57 Rapid Flu (36541 x 2) INFLUENZA IMMUNOASSY DIRECT OPTICAL OBSERV [...] mg/dL VLDL 43 mg/dL (Abnormal) Range: 5-40 99-Pte-346948:57 VITAMIN B12 370 pg/mL (Normal) Range: 211-911 66-Tmg-307987:57 VITD 26788 69.6 (Normal) Comments: Performed At: [facility] [address] [place], [place] [id number] 36-Qsu-026474:47 CHEST, PA AND LATERAL Radiology Report See Note (Normal) Comments: Exam Number: [id number] PA AND LATERAL CHEST HISTORY Being done [...] perihilar infiltrate. Reported By: JERARDO BEAULIEU M.D. 34-Tvv-953367:08 Upper Respiratory Culture Comments: Clinical Information: SRC: PERFORMED BY: [employer] [facility] [id number] Result 1 RRF (Normal) Comments: Routine respiratory rajwinder Upper Respiratory Culture Final report (Normal) 9-Wlc-427543:39 CHEST WITHOUT CONTRAST Radiology Report See Note (Normal) Comments: Exam Number: [id number] CT SCAN OF CHEST HISTORYNeoplasm of uncertain [...] PREMA 73 U/L (Normal) Range: 25-115 :01 60-Ten-031682:01 CBCD BASO% 0.3 % (Normal) Range: 0-1 [...] 5 days. Comments: COMMENTS: ROOM 12 (Normal) 31-Ezn-490301:20 COMPLETE UA Comments: COMMENTS: ROOM 12HOLD IN [...] WBC 0 SEEN {/hpf} (Normal) Range: 0-5 60-Vmt-730651:10 BMP Comments: COMMENTS: ROOM 12 BUN 8 [...] 3.5-5.1 NA 132 mmol/L (Abnormal) Range: 136-145 10-Ytl-020045:10 CBCD Comments: COMMENTS: ROOM 12 BASO% 0.2 [...] (Normal) WBC 10.6 K/mm3 (Normal) Range: 4.4-11.0 46-Zma-297298:10 LIPASE 212 U/L (Normal) Comments: COMMENTS: ROOM 12 Range: 114-286 42-Syl-945533:10 LIVER Comments: COMMENTS: ROOM 12 ALB 3.4 [...] 29 [iU]/L (Abnormal) Range: 30-65 :07 DESIRAE-D 602030 DESIRAE-DIRECT 24 U/mL (Normal) Range: 0-99 Comments: Negative <100 Equivocal 100 - 120 Positive >120Performed At: [facility] [place], [place] [id number] At: [facility] [address] [place], [place] [id number] :07 See Note (Normal) Comments: CHECK BLOOD [...] 5.8 K/mm3 (Normal) Range: 4.4-11.0 : HISTOPL 665828 SeeNote (Normal) Comments: Result: Negative :07 RA LATEX 6502 8.6 {IU/mL} (Normal) Range: 0.0-13.9 50-Cvx-009115:24 CHEST, PA AND LATERAL Radiology Report See Note (Normal) Comments: Exam Number: [id number] CHEST, PA AND LATERAL HISTORYFever and cough. COMPARISONNone. FINDINGSThere is an indwelling Kwyr-S-Bwxgmnxg on the right side particularlyin the SVC. [...] mm/h (Normal) Range: 0-30 :02 Urinalysis, Office (94305) Comments: ABn signed CH UA - BILIRUBIN [...] pg/mL (Abnormal) Range: 211-911 Comments: Performed At: [address] [id number] 8-Epd-838180:00 CULTURE, THROAT See Note (Normal) Comments: Normal throat rajwinder isolated. No beta-hemolyticstreptococcus isolated. 6-Etn-426956:52 Urinalysis, Office (04953) UA - BILIRUBIN Negative (Normal) UA - [...] unspecified site Planned Observations URINALYSIS, W/ MICRO (18825)Indication: Chronic pancreatitis On: :30 Request Metabolic Panel, Comprehensive (81116)Indication: Chronic pancreatitis On: : Request CBC WITH MANUAL DIFF (59078)Indication: Chronic pancreatitis On: :03 Request LIPASE (67501)Indication: Chronic pancreatitis On: :03 Request AMYLASE (05134)Indication: Chronic pancreatitis On: :03 Request AMYLASE (03111)Indication: Chronic pancreatitis On: 49-Azx-745707:48 Request LIPASE (75565)Indication: Chronic pancreatitis On: :48 Request METABOLIC PANEL, COMPREHENSIVE (19272)Indication: Chronic pancreatitis On: 46-Jpz-011925:47 Request LIPOPROTEIN, BLD, BY NMR (39994)Indication: Hyperlipidemia On: :47 Request Ferritin (76472)Indication: Iron deficiency anemia due to dietary causes On: 40-Qzq-053068:51 Request LIPASE (47180)Indication: Chronic pancreatitis On: 07-Qdv-634202:51 Request AMYLASE (17365)Indication: Chronic pancreatitis On: 62-Sgr-762487:50 Request URINALYSIS (63928)Indication: Chronic pancreatitis On: :50 Request CBC WITH MANUAL DIFF (20539)Indication: Chronic pancreatitis On: :50 Request Metabolic Panel, Comprehensive (30669)Indication: Chronic pancreatitis On: 90-Qke-777685:50 Request PT (PROTHROMBIN TIME) (89525)Indication: PFO (patent foramen ovale) On: 68-Vue-071075:36 Request Vitamin B-12 (cyanocobalamin) (00445)Indication: S/P gastric bypass On: :21 Request Ferritin (31859)Indication: Iron deficiency anemia due to dietary causes On: 5-Pzw-013077:21 Request CBC, Platelets & Auto Diff (21105)Indication: Chronic pancreatitis On: : Request Metabolic Panel, Comprehensive (03609)Indication: Chronic pancreatitis On: 4-Wyp-340066: Request CALCIFIDIOL (45603) VIT D 25Indication: Vitamin D deficiency, unspecified On: 15-Aem-41169:55 Request Comments: re check in 8 weeks Sed Rate Erythrocyte (70676)Indication: Fever On: 44-Nxx-355139:39 Request URINALYSIS (77831)Indication: Fever On: 39-Mjo-957910:33 Request URINE GRETTA CULTURE-IDENTIFICATN (19221)Indication: Fever On: :33 Request CALCIFIDIOL (10156) VIT D 25Indication: Vitamin D deficiency, unspecified On: 31-Cyc-002351:32 Request CBC, Platelets & Auto Diff (71068)Indication: Iron deficiency anemia due to dietary causes On: :32 Request Ferritin (72748)Indication: Iron deficiency anemia due to dietary causes On: 71-Shs-125409:32 Request GRETTA CULTURE-BLOOD (12674)Indication: Fever On: 59-Zny-420387:30 Request Comments: ONE FROM PORT AND ONE PERIPHERAL CALCIFIDIOL (60472) VIT D 25Indication: Vitamin D deficiency, unspecified On: 47-Uxc-265030:24 Request FERRITIN (39465)Indication: Iron deficiency anemia due to dietary causes On: 85-Pms-045124:22 Request EBV ANTIBODY VCA/EA 74695 (40788)Indication: Fatigue On: 01-Zrz-912949:31 Request Comments: please do VCA IGM Ferritin (82562)Indication: Iron deficiency anemia due to dietary causes On: 96-Tpp-137144:00 Request CALCIFIDIOL (26932) VIT D 25Indication: Vitamin D deficiency, unspecified On: 65-Hup-817034:00 Request EBV Panel (74525)Indication: Pharyngitis, acute On: 40-Tvj-683442:58 Request Influenza A&B Viral Culture (92781)Indication: Fever On: :34 Request RGETTA CULTURE-OTHER (43047)Indication: Fever On: :33 Request Rapid Strep Test, Office (68585)Indication: Fever On: :18 Request Troponin I (92657)Indication: Chest pain at rest On: 49-Kvn-548669:43 Request Comments: pls add to labs already done MYOGLOBIN (90399)Indication: Chest pain at rest On: : Request CPK MB FRACTION (79357)Indication: Chest pain at rest On: : Request Sed Rate Erythrocyte (56038)Indication: Chest pain at rest On: : Request CBC WITH MANUAL DIFF (71336)Indication: Chest pain at rest On: : Request CALCIFEDIOL (97523)Indication: OTHER AND UNSPECIFIED POSTSURGICAL NONABSORPTION On: :12 Request PARATHORMONE (76798)Indication: OTHER AND UNSPECIFIED POSTSURGICAL NONABSORPTION On: :12 Request Magnesium (11528)Indication: OTHER AND UNSPECIFIED POSTSURGICAL NONABSORPTION On: : Request Phosphorus (61582)Indication: OTHER AND UNSPECIFIED POSTSURGICAL NONABSORPTION On: :12 Request IRON (85985)Indication: OTHER AND UNSPECIFIED POSTSURGICAL NONABSORPTION On: :12 Request FERRITIN (56132)Indication: OTHER AND UNSPECIFIED POSTSURGICAL NONABSORPTION On: :12 Request ZINC, BLOOD (65327)Indication: OTHER AND UNSPECIFIED POSTSURGICAL NONABSORPTION On: :12 Request VITAMIN A (83850)Indication: OTHER AND UNSPECIFIED POSTSURGICAL NONABSORPTION On: :12 Request TSH (37832)Indication: OTHER AND UNSPECIFIED POSTSURGICAL NONABSORPTION On: :12 Request MAGNESIUM (59433)Indication: OTHER AND UNSPECIFIED POSTSURGICAL NONABSORPTION On: :12 Request Folic Acid Serum (19327)Indication: OTHER AND UNSPECIFIED POSTSURGICAL NONABSORPTION On: :12 Request CHROMIUM (56429)Indication: OTHER AND UNSPECIFIED POSTSURGICAL NONABSORPTION On: :12 Request ASSAY, HOMOCYSTINE (90923)Indication: OTHER AND UNSPECIFIED POSTSURGICAL NONABSORPTION On: :12 Request Metabolic Panel, Basic (46606)Indication: Abdominal pain On: :11 Request Comments: do on this tuesday OSMOLALITY URINE (86292)Indication: Abdominal pain On: 47-Vxv-870309:11 Request Comments: today in ambulatory OSMOLALITY BLOOD (82683)Indication: Abdominal pain On: :11 Request Comments: today in ambulatory Lipase (57241)Indication: Abdominal pain On: :11 Request Comments: today in ambulatory Amylase (02280)Indication: Abdominal pain On: :11 Request Comments: today in ambulatory CBC, Platelets & Auto Diff (05781)Indication: Abdominal pain On: :11 Request Comments: today in ambulatory Metabolic Panel, Comprehensive (00049)Indication: Abdominal pain On: 61-Blv-258175:10 Request Comments: today in ambulatory AMYLASE (30511)Indication: Abdominal pain On: 5-Wku-424071:12 Request LIPASE (27357)Indication: Abdominal pain On: 7-Eco-233283:12 Request Ferritin (11550)Indication: Iron deficiency anemia due to dietary causes On: :20 Request Comments: in six months (approximately) Vitamin B-12 (cyanocobalamin) (17227)Indication: Other vitamin B12 deficiency anemia On: 67-Esx-007485:19 Request Comments: in six months (approximately) Lipid Panel (64431)Indication: High blood triglycerides On: :19 Request Comments: in six months (approximately) Metabolic Panel, Comprehensive (20633)Indication: Chronic pancreatitis On: :19 Request Comments: in six months (approximately) Vitamin B-12 (cyanocobalamin) (23563)Indication: Other vitamin B12 deficiency anemia On: :27 Request METABOLIC PANEL, COMPREHENSIVE (44347)Indication: High blood triglycerides On: :19 Request LIPID PANEL (54954)Indication: High blood triglycerides On: :19 Request CBC, Platelets & Auto Diff (57331)Indication: Iron deficiency anemia due to dietary causes On: :15 Request Ferritin (07889)Indication: Iron deficiency anemia due to dietary causes On: :15 Request Iron (86305)Indication: Iron deficiency anemia due to dietary causes On: :29 Request Comments: recheck in 4 weeks pt needs to be fasting Iron Binding Capacity (TIBC) (33699)Indication: Iron deficiency anemia due to dietary causes On: :29 Request Comments: recheck in 4 weeks pt needs to be fasting Ferritin (31593)Indication: Iron deficiency anemia due to dietary causes On: :28 Request Comments: recheck in 4 weeks pt needs to be fasting METABOLIC PANEL, COMPREHENSIVE (68365)Indication: High blood triglycerides On: 08-Bdq-225780:33 Request LIPID PANEL (58412)Indication: High blood triglycerides On: :33 Request CBC (Auto) (72597)Indication: Iron deficiency anemia due to dietary causes On: :33 Request Ferritin (86269)Indication: Iron deficiency anemia due to dietary causes On: 93-Zag-248976:33 Request Vitamin B-12 (cyanocobalamin) (44960)Indication: Other vitamin B12 deficiency anemia On: 10-Phz-700040:32 Request CALCIFIDIOL (83843) VIT D 25Indication: Vitamin D deficiency, unspecified On: 65-Spw-351393:32 Request CULTURE, SPUTUM (96359)Indication: Cough On: 7-Ojr-136240:36 Request Iron (93630)Indication: Iron deficiency anemia due to dietary causes On: 55-Qmr-725189:53 Request CALCIFIDIOL (24156) VIT D 25Indication: Vitamin D deficiency, unspecified On: 50-Jlj-196812:02 Request CBC (Auto) (10250)Indication: Iron deficiency anemia due to dietary causes On: 6-Xlr-125731:49 Request Metabolic Panel, Comprehensive (23875)Indication: Chronic pancreatitis On: 6-Xwc-982618:49 Request Lipid Panel (77225)Indication: High blood triglycerides On: :49 Request Ferritin (91580)Indication: Iron deficiency anemia due to dietary causes On: 4-Kyk-788163:48 Request CALCIFEDIOL (79854)Indication: Vitamin D deficiency, unspecified On: :48 Request Vitamin B-12 (cyanocobalamin) (39125)Indication: Other vitamin B12 deficiency anemia On: :47 Request Lipase (20303)Indication: Chronic pancreatitis On: :47 Request Amylase (66375)Indication: Chronic pancreatitis On: :47 Request D-Dimer (47329)Indication: Anemia On: 23-Hdw-280608:28 Request Comments: stat Metabolic Panel, Comprehensive (31441)Indication: Anemia On: :16 Request TYPE & SCREEN GEL (61627)Indication: Anemia On: :16 Request CBC with manual diff (63004)Indication: Anemia On: :15 Request Lipase (01421)Indication: Chronic pancreatitis On: :30 Request Amylase (70397)Indication: Chronic pancreatitis On: 57-Vla-841276:30 Request Ferritin (54990)Indication: Iron deficiency anemia due to dietary causes On: 59-Tzi-691552:28 Request LIPASE (03266)Indication: Chronic pancreatitis On: 1-Qdp-139073:21 Request AMYLASE (25886)Indication: Chronic pancreatitis On: 9-Emv-445974:21 Request Lipase (04841)Indication: Chronic pancreatitis On: 37-Ggk-192251:12 Request Amylase (31054)Indication: Chronic pancreatitis On: 75-Crt-574088:12 Request MICROALBUMIN: CREATININE RATIO (22703) AND (19221)Indication: Chronic pancreatitis On: 43-Tdq-371792:12 Request METABOLIC PANEL, COMPREHENSIVE (54607)Indication: Chronic pancreatitis On: 22-Omi-181424:12 Request LIPID PANEL (37512)Indication: High blood triglycerides On: 58-Bhx-708917:12 Request CBC WITH MANUAL DIFF (44635)Indication: Chronic pancreatitis On: :12 Request Metabolic Panel, Comprehensive (98964)Indication: Chronic pancreatitis On: 3-Llz-455877:46 Request Lipase (65559)Indication: Chronic pancreatitis On: :46 Request Amylase (44563)Indication: Chronic pancreatitis On: :46 Request CALCIFIDIOL (72889) VIT D 25Indication: Vitamin D deficiency, unspecified On: :43 Request Ferritin (48172)Indication: Iron deficiency anemia due to dietary causes On: :43 Request CBC (Auto) (43821)Indication: Iron deficiency anemia due to dietary causes On: :43 Request PT (Prothrobim Time) (80192)Indication: AFTERCARE, LONG-TERM USE, ANTICOAGULANTS On: :28 Request Lipase (06232)Indication: Chronic pancreatitis On: : Request Amylase (93492)Indication: Chronic pancreatitis On: :25 Request Metabolic Panel, Comprehensive (05466)Indication: Chronic pancreatitis On: :25 Request CBC (Auto) (09041)Indication: Leukopenia On: :25 Request Lipid Panel (16805)Indication: High blood triglycerides On: :25 Request Iron (62637)Indication: Iron deficiency anemia due to dietary causes On: :23 Request Ferritin (71349)Indication: Iron deficiency anemia due to dietary causes On: 2-Xda-212781:23 Request Vitamin B-12 (cyanocobalamin) (41252)Indication: Other vitamin B12 deficiency anemia On: :23 Request CALCIFIDIOL (40599) VIT D 25Indication: Vitamin D deficiency, unspecified On: :23 Request Lipase (41198)Indication: Chronic pancreatitis On: 0-Pkk-923170:21 Request Amylase (23580)Indication: Chronic pancreatitis On: 1-Mkx-639241:21 Request Comments: pls add to labs already drawn Metabolic Panel, Comprehensive (68782)Indication: Chronic pancreatitis On: 5-Ouq-185734:07 Request Ferritin (16235)Indication: Iron deficiency anemia due to dietary causes On: 9-Dbu-979961:07 Request CBC (Auto) (23082)Indication: Chronic pancreatitis On: 9-Gqg-878142:07 Request LIPID PANEL (52373)Indication: High blood triglycerides On: 2-Gcd-366781:15 Request Iron Binding Capacity (TIBC) (64804)Indication: Anemia On: :53 Request Iron (18465)Indication: Anemia On: :53 Request Ferritin (18739)Indication: Anemia On: :53 Request CBC (Auto) (27161)Indication: Anemia On: :53 Request Metabolic Panel, Comprehensive (38158)Indication: Chronic pancreatitis On: :53 Request OVA & PARASITE DIR SMEAR (36388)Indication: Diarrhea On: :37 Request LEUKOCYTE COUNT, FECAL (03464)Indication: Diarrhea On: :37 Request C.Difficile, Stool (44524)Indication: Diarrhea On: :37 Request GRETTA CULTURE-STOOL (81638)Indication: Diarrhea On: 63-Zeh-199144:37 Request Vitamin B-12 (cyanocobalamin) (31968)Indication: Other vitamin B12 deficiency anemia On: 04-Jsb-010297:05 Request Iron (78904)Indication: Anemia On: 50-Wwe-839745:05 Request Ferritin (65409)Indication: Anemia On: 42-Fbb-136561:05 Request METABOLIC PANEL, COMPREHENSIVE (99078)Indication: High blood triglycerides On: 76-Cov-155905:05 Request CBC WITH MANUAL DIFF (91010)Indication: Anemia On: 24-Ulg-136666:05 Request LIPID PANEL (24131)Indication: High blood triglycerides On: 03-Wrt-215216:04 Request nasal influenza swab (20197) N9Hqkmekasru: Unspecified Diagnosis On: 9-Shf-672348:29 Request Rapid Flu (89688 x 2)Indication: Fever On: 6-Atx-463431:44 Request Lipid Panel (20478)Indication: High blood triglycerides On: 34-Rrz-119580:53 Request CBC (Auto) (09132)Indication: Chronic pancreatitis On: 10-Tpr-605801:51 Request Metabolic Panel, Comprehensive (06293)Indication: Chronic pancreatitis On: 96-Obr-127247:51 Request Ferritin (78724)Indication: Anemia On: 47-Uxg-491115:51 Request Iron (40197)Indication: Anemia On: :51 Request Vitamin B-12 (cyanocobalamin) (78323)Indication: Other vitamin B12 deficiency anemia On: 70-Pni-143031:51 Request Lipid Panel (40506)Indication: Malabsorption syndrome On: 94-Jhy-370287:39 Request Sed Rate Erythrocyte (53483)Indication: Chronic pancreatitis On: :35 Request CBC, Platelets & Auto Diff (08511)Indication: Chronic pancreatitis On: :35 Request Magnesium (59195)Indication: Chronic pancreatitis On: :35 Request Lipase (01119)Indication: Chronic pancreatitis On: :35 Request Amylase (42336)Indication: Chronic pancreatitis On: 03-Okp-549501:35 Request Metabolic Panel, Comprehensive (46943)Indication: Chronic pancreatitis On: 54-Rje-083296:35 Request CBC (Auto) (81094)Indication: Abdominal pain, acute, generalized On: 55-Fri-063355:29 Request Metabolic Panel, Comprehensive (29267)Indication: Abdominal pain, acute, generalized On: 40-Szi-544887:29 Request Methylmalonic acid, serum 71949Ouvbdrjszk: Other vitamin B12 deficiency anemia On: 91-Ety-884719:29 Request CULTURE, SPUTUM (26922)Indication: Cough On: 3-Zlm-419157:42 Request Lipase (16943)Indication: Acute pancreatitis On: 1-Gqr-854948:59 Request Amylase (43452)Indication: Acute pancreatitis On: 1-Tdx-155046:59 Request DESIRAE (ANTINUCLEAR ANTIBODY) (75202)Indication: Pain in unspecified joint On: 3-Ohp-062199:48 Request C-REACTIVE PROTEIN (35280)Indication: Pain in unspecified joint On: 2-Hrz-684408:48 Request CBC WITH MANUAL DIFF (18665)Indication: Pain in unspecified joint On: 6-Jud-167374:48 Request METABOLIC PANEL, COMPREHENSIVE (61116)Indication: Pain in unspecified joint On: 3-Dvu-754062:48 Request RHEUMATOID FACTOR-QUANT (49053)Indication: Pain in unspecified joint On: 1-Kon-711658:48 Request SED RATE ERYTHROCYTE (42448)Indication: Pain in unspecified joint On: 5-Mab-248160:48 Request TSH (55756)Indication: Pain in unspecified joint On: 8-Ine-773201:48 Request GRETTA CULTURE-OTHER (92421)Indication: Pharyngitis, acute On: 01-Oau-816073:12 Request Rapid Strep Test, Office (07322)Indication: Pharyngitis, acute On: 96-Yhx-205202:12 Request Comments: negative VITAMIN D, 1, 25-DIHYDROXY (63915)Indication: Chronic pancreatitis On: 21-Mir-823202:46 Request Vitamin B-12 (cyanocobalamin) (57656)Indication: Other vitamin B12 deficiency anemia On: 40-Bfc-417995:43 Request Lipase (65023)Indication: Chronic pancreatitis On: 84-Hfy-908165:35 Request Amylase (08795)Indication: Chronic pancreatitis On: 98-Pgr-161901:34 Request CBC (Auto) (15955)Indication: Chronic pancreatitis On: 74-Xfz-374646:34 Request Metabolic Panel, Comprehensive (47244)Indication: Chronic pancreatitis On: 65-Zrc-496756:34 Request Lipid Panel (02968)Indication: Chronic pancreatitis On: 93-Gmc-368009:34 Request Comments: standing order every 3 months Metabolic Panel, Comprehensive ([id number])Indication: Edema On: 71-Yxy-478099:13 Request CBC, Platelets & Auto Diff ([id number])Indication: Edema On: 73-Pty-689580:13 Request PTT (Activated Partial Thromboplastin Time) ([id number])Indication: Edema On: 41-Qsm-133598:12 Request PT (Prothrobim Time) ([id number])Indication: Edema On: 15-Xxo-126065:12 Request Lipase ([id number])Indication: pancreatitis On: :32 Request Amylase ([id number])Indication: pancreatitis On: :32 Request CBC (Auto) ([id number])Indication: pancreatitis On: :32 Request Metabolic Panel, Comprehensive ([id number])Indication: pancreatitis On: :32 Request Metabolic Panel, Comprehensive ([id number])Indication: Fever On: :57 Request GRETTA CULTURE-BLOOD ([id number])Indication: Fever On: :56 Request Comments: one from peripheral GRETTA CULTURE-BLOOD ([id number])Indication: Fever On: :56 Request Comments: one from port Sed Rate Erythrocyte ([id number])Indication: Fever On: :56 Request CBC, Platelets & Auto Diff ([id number])Indication: Fever On: :56 Request Urinalysis, Office ([id number])Indication: Fever On: :56 Request GRETTA CULTURE-OTHER ([id number])Indication: Fever On: 4-Cub-076443:53 Request Rapid Strep Test, Office ([id number])Indication: Fever On: :52 Request CBC, Platelets & Auto Diff ([id number])Indication: Chronic pancreatitis On: 7-Fqh-391445:46 Request Lipase ([id number])Indication: Chronic pancreatitis On: 1-Gyp-771027:46 Request Amylase ([id number])Indication: Chronic pancreatitis On: 0-Qlw-714908:46 Request Metabolic Panel, Comprehensive ([id number])Indication: Chronic pancreatitis On: 4-Waw-463608:46 Request FERRITIN ([id number])Indication: Anemia On: 9-Vuj-635409:22 Request VITAMIN B-12 (CYANOCOBALAMIN) ([id number])Indication: Other vitamin B12 deficiency anemia On: 5-Udd-002496:22 Request LIPASE ([id number])Indication: Acute pancreatitis On: :22 Request ALBUMIN SERUM ([id number])Indication: Acute pancreatitis On: :22 Request CBC (AUTO) ([id number])Indication: Acute pancreatitis On: :21 Request METABOLIC PANEL, BASIC ([id number])Indication: Abnormal blood chemistry On: :21 Request Planned Encounters Medical; TIMO 4 Month Fu - On: 01-Sep-2018 13:30 [facility] Dima DURAN, Adalid Pizano MD, Adalid Rebollar Planned Procedures Flu Vaccine (Quadrivalent) On: 31-Mar-2018 Intent 29811Ic: COMFORT Gallegos Comments: Lot #:[id number] date: 2-92-43Usqmym given:0.5mlRoute: IMSite given:L DltdGiven by: Kumar and ABN signed [employer] SCREENING DIGITAL TOMOSYNTHESIS On: 20-Dec-2017 Intent OF BREAST ([id number])By: Adalid Pizano MD, MD, Dana M DEXA SCAN AXIAL SKELETON On: 20-Dec-2017 Intent (07412)By: Adalid Pizano MD, MD, Dana M SCREENING DIGITAL TOMOSYNTHESIS On: 29-Apr-2017 Intent OF BREAST (96028)By: Adalid Pizano MD, MD, Dana M Flu Vaccine (Quadrivalent) On: 29-Apr-2017 Intent 42625Sq: Adalid Pizano MD Comments: lot: [id number]: 12/19/ite/route: L kelin, IMamt: 0.5mlVIS and ABN signed when applicableChelsea, ENG[employer] SALES Adalid Pizano MD CT - Abdomen & Pelvis (IV On: 01-Oct-2016 Intent Contrast Needed)By: Dima DURAN, Comments: attentinon pancrease follow up on kidney cyst. 07-20 creat 0.76 Adalid Ghosh MD Flu Vaccine (Quadrivalent) On: 17-May-2016 Intent 36922Kv: Adalid Pizano MD Comments: FLUlot: [id number]:11/17site:Lt deltoidroute:IMdose:.5mlDEMICK, MA Adalid Pizano MD Aerosol Treatment (19794)By: On: 27-Apr-2016 Intent Slarb INSOLE BOTTOM FILLER, Kacey DEXA SCAN AXIAL SKELETON On: 09-Mar-2016 Intent (82300)By: Adalid Pizano MD, MD, Dana M MAMMOGRAM, SCREENING, BOTH On: 09-Mar-2016 Intent BREAST ([id number])By: Adalid Pizano MD, MD, Dana M DEXA SCAN AXIAL SKELETON On: 15-Jul-2015 Intent (46197)By: BoneAdalid leigh MD, MD, Dana M MAMMOGRAM, SCREENING, BOTH On: 15-Jul-2015 Intent BREAST ([id number])By: Adalid Pizano MD, MD, Dana M Aerosol Treatment (36065)By: On: 08-Jul-2015 Intent Pamella Saavedra CNP Aerosol Treatment (45487)By: On: 08-Jul-2015 Intent Slarb INSOLE BOTTOM FILLER, Kacey XR HIP RIGHT COMPLETE (51872)By: On: 30-Jun-2015 Intent Adalid Pizano MD, MD, Comments: right hip Adalid Rebollar Radiology - PelvisBy: Dima On: 24-Jun-2015 Intent Adalid DURAN MD, Dana M Comments: and right hip xray Venous Doppler - RightBy: On: 24-Jun-2015 Intent Adalid Pizano MD, MD, Comments: leg Adalid Rebollar Flu Vaccine (Quadrivalent) On: 15-Apr-2015 Intent 89574Gq: Adalid Pizano MD Comments: lot [id number]: 01/01/2016site/route L kelin, IMamt 0.5mlVIS and ABN signed when applicableChelsea, CMAFM4 Adalid Pizano MD Radiology - ChestBy: Quentin ARGUETA, On: 07-Feb-2015 Intent Adeola Aerosol Treatment (32384)By: On: 07-Feb-2015 Intent Ailyn Aguilar Solu -Medrol Injection, 125 mg On: 05-Feb-2015 Intent (J2930)By: Pamella Saavedra CNP Comments: lot:[id number]:route:IMdose:125MGsite: R glutGiven by: FOX Angeles Solu -Medrol Injection, 125 mg On: 04-Feb-2015 Intent (J2930)By: Pamella Saavedra CNP Aerosol Treatment (60038)By: On: 04-Feb-2015 Intent Pamella Saavedra CNP MAMMOGRAM, SCREENING, BOTH On: 14-Jan-2015 Intent BREAST (54903)By: Adalid Pizano MD, MD, Dana M Prevnar 13 (64530)By: Dima On: 16-Jul-2014 Intent Adalid DURAN MD, Dana M ADMINISTRATION OF INFLUENZA On: 22-Apr-2014 Intent VIRUS VACCINE ([id number])By: Adalid Pizano MD, MD, Dana M FLU VAC, SPLIT, >3 YEARS, On: 22-Apr-2014 Intent INTRAMUSC (30044)By: Dima DURAN, Comments: Lot #:[id number] date:mount given:0.5mlRoute: IMSite given:left deltoid Given by: Adalid Mota MD Phenergan Injection, up to 50 mg On: 12-Dec-2013 Intent (J2550)By: Pamella Saavedra CNP MAMMOGRAM, SCREENING, BOTH On: 25-Sep-2013 Intent BREASTS (25064)By: Adalid Pizano MD, MD, Dana M Eprescribed prescriptions On: 25-Sep-2013 Intent (G8553)By: Adalid Pizano MD, MD, Dana M Aerosol Treatment (40807)By: On: 05-Sep-2013 Intent [address]ella Saavedra CNP CT - Abdomen & Pelvis (IV On: 04-Jun-2013 Intent Contrast Needed)By: Adalid Pizano MD, MD, Dana M DXA, BONE DENSITY, AXIAL On: 04-Jun-2013 Intent SKELETON (15699)By: Dima DURAN, Comments: postmenapausal Adalid Ghosh MD MAMMOGRAM, SCREENING, BOTH On: 04-Jun-2013 Intent BREASTS ([id number])By: Adalid Pizano MD, MD, Dana M Pulse Oximetry (17932)By: On: 04-Jun-2013 Intent COMFORT Gallegos Eprescribed prescriptions On: 14-May-2013 Intent (G8553)By: Melba Malloy ELECTROCARDIOGRAM, COMPLETE On: 26-Dec-2012 Intent (ECG) (38447)By: Adalid Pizano MD, MD, Dana M Eprescribed prescriptions On: 26-Dec-2012 Intent (G8553)By: Makenzie Allred LPN MAMMOGRAM, SCREENING, BOTH On: 24-Aug-2012 Intent BREASTS (98469)By: Dima DURAN, Adalid Ghosh MD Pulse Oximetry (88304)By: On: 29-Jun-2012 Intent COMFORT Gallegos Radiology - Chest- PA and LatBy: On: 01-Jun-2012 Intent Sofia Younger DO Eprescribed prescriptions On: 01-Jun-2012 Intent (G8553)By: Kim Garces LPN FLU VAC, SPLIT, >3 YEARS, On: 28-Apr-2012 Intent INTRAMUSC (56283)By: Balaji, Comments: Lot:[id number]:12.31.12Dose:prefilledRoute:IMSite:L DltdGiven By:BARRY Garcia IMMUNIZ ADMNIN, 1 VAC, On: 28-Apr-2012 Intent SNGL/COMBO (97482)By: Radha Carpio TDAP VACCINE >7 IM (25776)By: On: 24-Nov-2011 Intent Long Makenzie ABBOTT Comments: Lot #[id number]- 11.13Site- L arm, ImDose prefilledgiven by: Makenzie MAMMOGRAM, SCREENING, BOTH On: 01-Nov-2011 Intent BREASTS (74514)By: Dima DURAN, Adalid Ghosh MD Aerosol Treatment (31676)By: On: 14-Oct-2011 Intent Sofia Younger DO Comments: [...] SPLIT, >3 YEARS, On: 20-Apr-2011 Intent INTRAMUSC (61201)By: Cayden Comments: Lot #[id number]-1/30/12Site-left deltoidgiven by: Jared Rodarte LPN LPN, Connie IMMUNIZ ADMNIN, 1 VAC, On: 20-Apr-2011 Intent SNGL/COMBO (36904)By: Chery Rodarte LPN 12 Injection, 1000 mcg On: 22-Mar-2011 Intent (J3420)By: COMFORT Gallegos DRAIN/INJECT MAJOR JOINT OR On: 22-Mar-2011 Intent BURSA ()By: COMFORT Gallegos Comments: Lot #:[id number] date: given:2ml Route: intra articular Site given:bilateral knees Given by: Dr. Pizano Pulse Oximetry (02549)By: Janieesjunie On: 19-Mar-2011 Intent MUCK OPERATOR, Adeola Aerosol Treatment (98581)By: On: 19-Mar-2011 Intent Ciesa MUCK OPERATOR, Adeola DRAIN/INJECT MAJOR JOINT OR On: 12-Mar-2011 Intent BURSA ()By: COMFORT Gallegos Comments: Lot #:[id number] date: given:2ml Route: intra articular Site given:bilateral knees Given by: Dr. Pizano DRAIN/INJECT MAJOR JOINT OR On: 04-Mar-2011 Intent BURSA ()By: COMFORT Gallegos Comments: Lot #:[id number] date: given:2mlRoute: intra articular Site given:Bilateral knees Given by: Dr. Pizano injection #1 Kenalog Injection, 10 mgm On: 08-Feb-2011 Intent (J3301)By: Adalid Pizano MD Comments: x 8 Adalid Pizano MD Breast Ultrasound - LeftBy: On: 08-Feb-2011 Intent Adalid Pizano MD, MD, Dana M DXA, BONE DENSITY, AXIAL On: 02-Nov-2010 Intent SKELETON (51700)By: Adalid Pizano MD, MD, Dana M MAMMOGRAM, SCREENING, BOTH On: 02-Nov-2010 Intent BREASTS (81706)By: Adalid Pizano MD, MD, Dana M FLU VAC, SPLIT, >3 YEARS, On: 17-Jun-2010 Intent INTRAMUSC (35483)By: Cayden Comments: Lot #[id number] 4PExp-10/12Site-right deltoidgiven by:Chery PAVON LPN IMMUNIZ ADMNIN, 1 VAC, On: 17-Jun-2010 Intent SNGL/COMBO (65956)By: Chery Rodarte LPN DXA, BONE DENSITY, AXIAL On: 30-Sep-2009 Intent SKELETON (06087)By: Dima DURAN, Adalid Pizano MD, Adalid Rebollar MAMMOGRAM, SCREENING, BOTH On: 30-Sep-2009 Intent BREASTS (55559)By: Dima DURAN, Adalid Ghosh MD B 12 Injection, 1000 mcg On: 30-Sep-2009 Intent (J3420)By: COMFORT Gallegos Pulse Oximetry (20568)By: Quentin On: 09-Apr-2009 Intent MUCK OPERATOR, Adeola Aerosol Treatment (78471)By: On: 09-Apr-2009 Intent Ciesa MUCK OPERATOR, Adeola FLU VAC, SPLIT, >3 YEARS, On: 26-Mar-2009 Intent INTRAMUSC (26657)By: Lisa RN, Andie IMMUNIZ ADMNIN, 1 VAC, On: 26-Mar-2009 Intent SNGL/COMBO (23652)By: Lisa RN, Comments: Lot #: [id number] date: mount given: 0.5 mlRoute: IMSite given: left deltoidGiven by: SCAR Montenegro INJECTION, VITAMIN B-12 On: 07-Feb-2009 Intent CYANOCOBALAMIN, UP TO 1000 MCG Comments: Lot #[id number] date:mount given:1mlSite given: right deltoidGiven by:Judith. (Special Coverage Instructions Apply. See CIM: 45-4 and MCM: 2049) (J3420)By: COMFORT Gallegos Pulse Oximetry (89677)By: Ceci On: 04-Dec-2008 Intent DORosa Maria Comments: post knxexfnru85% Aerosol Treatment (97967)By: On: 04-Dec-2008 Intent Fast DORosa Maria A Comments: done-aw B 12 Injection, 1000 mcg On: 04-Dec-2008 Intent (J3420)By: Tonia Garcia Comments: Lot #[id number]-05/2010Site-right icxxbplJzmn1418jyp/1mlgiven by Debbie Lei LPN Pulse Oximetry (09286)By: On: 04-Dec-2008 Intent Tonia Garcia Comments: 91% [...] Intent (J3420)By: COMFORT Gallegos Comments: Lot #[id number]-05/2010Site-right tvsximxQtfy3012jvi/1mlgiven by Debbie Lei LPN DRAIN/INJECT MAJOR JOINT OR On: 09-Oct-2008 Intent BURSA ()By: COMFORT Gallegos Comments: Lot #:[id number] date:mo given:Route: intra articular Site given:bilateral knees Given by: Dr. Pizano DRAIN/INJECT MAJOR JOINT OR On: 01-Oct-2008 Intent BURSA ()By: COMOFRT Gallegos Comments: Lot #:[id number] date: given:2.5ml Route:intra-articular Site given:Bilateral knees Given by: Dr. Pizano DRAIN/INJECT MAJOR JOINT OR On: 24-Sep-2008 Intent BURSA ()By: COMFORT Gallegos Comments: Lot #:[id number] date: Amount given:2.5 mlRoute: intra-articular Site given:bilateral knees Given by: Dr. Pizano DRAIN/INJECT MAJOR JOINT OR On: 17-Sep-2008 Intent BURSA ()By: COMFORT Gallegos Comments: Lot #:[id number] date:mo given:2 grams Route: Intra articular Site given: bilateral knees Given by: Dr. Pizano DRAIN/INJECT MAJOR JOINT OR On: 13-Sep-2008 Intent BURSA (13848)By: COMFORT Gallegos Comments: Lot #:[id number] date:05-10 Amount given:2.5MLRoute: INTRA ARTICULAR Site given:bilateral knees Given by: Dr. Pizano B 12 Injection, 1000 mcg On: 10-Sep-2008 Intent (J3420)By: COMFORT Gallegos B 12 Injection, 1000 mcg On: 29-Jul-2008 Intent (J3420)By: Denise Collazo Comments: Amt: 1mlLot: [id number]: 02/10Route: IMSite: right deltTolerated: wellGiven By: SCAR Sood Pulse Oximetry (43226)By: Quentin On: 29-Jul-2008 Intent MUCK OPERATOR, Adeola Aerosol Treatment (47993)By: On: 29-Jul-2008 Intent Ciesa MUCK OPERATOR, Adeola Aerosol Treatment (64223)By: On: 16-Jul-2008 Intent Sofia Younger DO Comments: done-awnoise resolved and much more air exchange Pulse Oximetry (57789)By: Carisa On: 16-Jul-2008 Sofia Davis DO Comments: 93% Solu- Medrol Injection, 125mg On: 16-Jul-2008 Intent (J2930)By: Sofia Younger DO Comments: Lot #[id number]-6/11Site-right xjiFdtz0sx/125mggiven by Debbie Lei LPN B 12 Injection, 1000 mcg On: 30-Apr-2008 Intent (J3420)By: Prema Lei Comments: Lot #[id number]-5/10Site-right geskohwXevk4etuqiqx by Debbie Lei LPN DXA, BONE DENSITY, AXIAL On: 30-Apr-2008 Intent SKELETON (51017)By: Dima DURAN, Comments: estrogen def Adalid Pizano MD, Adalid Rebollar MAMMOGRAM, SCREENING, BOTH On: 30-Apr-2008 Intent BREASTS (96826)By: Dima DURAN, Adalid Ghosh MD B 12 Injection, 1000 mcg On: 27-Mar-2008 Intent (J3420)By: Tonia Garcia Comments: Lot #:[id number] date:mount given:.1mlRoute: IMSite given:left deltoidGiven by: EDEN Salcido Pulse Oximetry (15911)By: On: 27-Mar-2008 Intent Tonia Garcia Comments: 96% Pulse Oximetry (51345)By: On: 14-Mar-2008 Intent COMFORT Gallegos B 12 Injection, 1000 mcg On: 06-Feb-2008 Intent (J3420)By: Pamella Saavedra CNP Comments: Lot #:[id number] date: Amount given:1ml Route: IMSite given:left deltoid Given by: billy Solu -Medrol Injection, 125 mg On: 06-Feb-2008 Intent (J2930)By: Pamella Saavedra CNP Comments: Lot #:[id number] date:mount given:125mgRoute: IMSite given:left gluteal Given by: aretha Pulse Oximetry (32239)By: Quentin On: 06-Feb-2008 Intent Pamella ARGUETA Aerosol Treatment (81935)By: On: 06-Feb-2008 Intent Pamella Saavedra CNP B 12 Injection, 1000 mcg On: 21-Dec-2007 Intent (J3420)By: Ledy Nogueira Comments: given in right deltoid, lot#[id number], exp.3.10 >Wf. B 12 Injection, 1000 mcg On: 03-Oct-2007 Intent (J3420)By: Pamella Saavedra CNP Pulse Oximetry (95341)By: Quentin On: 03-Oct-2007 Intent Pamella ARGUETA Aerosol Treatment (96140)By: On: 03-Oct-2007 Intent Pamella Saavedra CNP Pulse Oximetry (72594)By: Lenny On: 16-Aug-2007 Intent Cira Aerosol Treatment (76896)By: On: 16-Aug-2007 Intent Sofia Younger DO Comments: no wheeze and better air exchange Solu- Medrol Injection, 125mg On: 16-Aug-2007 Intent (J2930)By: Sofia Younger DO Comments: given in left buttocks.lot # [id number]\Exp 02/2010 SPECIMEN HNDLNG/TRNSPRT, OFFC > On: 16-Aug-2007 Intent LAB (75426)By: Sofia Younger DO B 12 Injection, 1000 mcg On: 01-Aug-2007 Intent (J3420)By: Prema Lei Comments: Lot #[id number]-05/12Site-left ezyxifiSfmj6rdzuxcb by Debbie Lei [facility] CT - ChestBy: Adalid Pizano MD On: 01-Aug-2007 Intent Adalid Pizano MD FLU VAC, SPLIT, >3 YEARS, On: 18-Apr-2007 Intent INTRAMUSC (46237)By: Adalid Pizano MD, MD, Dana M IMMUNIZ ADMNIN, 1 VAC, On: 18-Apr-2007 Intent SNGL/COMBO (59651)By: Adalid Pizano MD, MD, Dana M B [...] HNDLNG/TRNSPRT, OFFC > On: 10-Oct-2006 Intent LAB (69768)By: Adalid Pizano MD, MD, Dana M Solu -Medrol Injection, 125 mg On: 16-Sep-2006 Intent (J2930)By: Adalid Pizano MD Comments: lot # [id number] exp 04-[address] gluteal by Adalid Chacon lpn, MD Pulse Oximetry (65739)By: On: 16-Sep-2006 Intent Adalid Pizano MD, MD, Dana M Aerosol Treatment (10341)By: On: 16-Sep-2006 Intent Adalid Pizano MD, MD, Dana M Pulse Oximetry (72981)By: On: 04-Aug-2006 Intent Dima DURAN, Adalid Ghosh MD EKG (29105)By: Adalid Pizano MD On: 08-Jul-2006 Intent Adalid Morfin MD IMMUNIZ ADMNIN, 1 VAC, On: 06-May-2006 Intent SNGL/COMBO (51470)By: Ramiro ABBOTT, Peg FLU VAC, SPLIT, >3 YEARS, On: 06-May-2006 Intent INTRAMUSC (02940)By: Ramiro ABBOTT, Comments: Lot #:Expiration date:Amount given:Route: imSite given:r armGiven by: galina golden lpn Peg Echo CompleteBy: Dima DURAN, On: 19-Apr-2006 Intent [address] Ghosh MD CT - Abdomen & PelvisBy: Dima On: 19-Apr-2006 Adalid Davis MD, MD, Dana M Comments: ?obstruction, pancreatitis, attention kidney cyst send to [facility] gastrologist [facility] Planned Medications INJECTION, METHYLPREDNISOLONE SODIUM SUCCINATE, [...] Advance Directives Name Dates Details Immunization Registry Alvin - Effective on Effective: 29-Apr-201704/29/2017. Expiration date [...] Nutrition: balanced diet and supplemental vitamins. The co dical issues the patient is following up [...] (579.8), Hyponatremia (276.1), Asthma (493.11), Fibromyalgia (729.1), [facility] V73.21 [place] (Renamed from [facility]), Obesity,unspecified (278.00), GERD (530.81), DEFICIENCY, VITAMIN [...] ANEMIA DUE TO DIETARY IRON DEFICIENCY (280.1), [facility] V73.21 [place] (Renamed from [facility]) [facility] Office Visit On: [...] months. Note for Fever: pt had epidural 2-20-09Qwfaddcxj Diagnosis: Dehydration(276.51), Abdominal Pain,Generalized (789.07), FEVER (780.6) [...] care visit: swelling better with aldactone, reviewed information systems consultant's letter use compression, work up from [...] weekend , [facility] [place] no fever abd pain still hit [...] Epigastric pain (789.06), SVC thrombosis, Fibromyalgia (729.1), [facility] Office Visit On: [...] chemistry (790.6) [facility] Medicine Payers [facility] BaptistJOSE J zaman guarantor
--- OUTSIDE RECORDS SUMMARY | 2018-08-02 06:36 | XMS RPT_ITS ---
:1955 Author Organization OHIP Support Name Relationship Address Phone BALDEMAR MAYNARDNIFER Unavailable . + [place] [address] D Unavailable Unavailable Unavailable COBIAN, JUAN CARLOS Unavailable [address] + [place] [address] COOL, ANGEL Unavailable Unavailable + [place] [address] D Unavailable Unavailable Unavailable COBIAN, JUAN CARLOS Unavailable [address] + [place] [address] COOL, ANGEL Unavailable Unavailable + D Unavailable Unavailable Unavailable COBIAN, JUAN CARLOS Unavailable [address] + [place] [address] COOL, ANGEL Unavailable Unavailable + D Unavailable Unavailable Unavailable COBIAN, JUAN CARLOS Unavailable [address] + [place] [address] COOL, ANGEL Unavailable Unavailable + D Unavailable Unavailable Unavailable COBIAN, JUAN CARLOS Unavailable [address] + [place] [address] COOL, ANGEL Unavailable Unavailable + D Unavailable Unavailable Unavailable COBIAN, JUAN CARLOS Unavailable [address] + [place] [address] COOL, ANGEL Unavailable Unavailable + D Unavailable Unavailable Unavailable COBIAN, JUAN CARLOS Unavailable [address] + [place] [address] COOL, ANGEL Unavailable Unavailable + D Unavailable Unavailable Unavailable COBIAN, JUAN CARLOS Unavailable [address] + [place] [address] COOL, ANGEL Unavailable Unavailable + D Unavailable Unavailable Unavailable COBIAN, JUAN CARLOS Unavailable [address] + [place] [address] COOL, ANGEL Unavailable Unavailable + [place] [address] D Unavailable Unavailable Unavailable COBIAN, JUAN CARLOS Unavailable [address] + [place] [address] COOL, ANGEL Unavailable . + [place] [address] D Unavailable Unavailable Unavailable COBIAN, JUAN CARLOS Unavailable [address] + [place] [address] COOL, ANGEL Unavailable . + [place] [address] D Unavailable Unavailable Unavailable COBIAN, JUAN CARLOS Unavailable [address] + [place] [address] COOL, ANGEL Unavailable . + [place] [address] D Unavailable Unavailable Unavailable COBIAN, JUAN CARLOS Unavailable [address] + [place] [address] Care Team Providers Name Role Phone Sarah Ch MD Attending Unavailable Sarah Ch MD Referring Unavailable Sarah Ch MD Consulting Unavailable Chanel Shaw Attending Unavailable Chanel Shaw Referring Unavailable Bonezzi, Sarah Primary Care Unavailable Bubba Romero Attending Unavailable Bubba Romero Referring Unavailable Bonepauli, Sarah Primary Care Unavailable Bubba Romero Attending Unavailable Bubba Romero Referring Unavailable Bonepauli, Sarah Primary Care Unavailable Bubba Romero Attending Unavailable Bubba Romero Referring Unavailable Bonezzi, Sarah Primary Care Unavailable Chanel Shaw Attending Unavailable Dima, Sarah Referring Unavailable Bonezzi, Sarah Primary Care Unavailable Antonino Batres Attending Unavailable Bubba Romero Attending Unavailable Bubba Romero Referring Unavailable Bonezzi, Sarah Primary Care Unavailable Sarah Ch Attending Unavailable Primay Care Physicia, No Primary Care Unavailable Bubba Romero Attending Unavailable Bubba Romero Referring Unavailable Bonezzi, Sarah Primary Care Unavailable Sarah Ch Attending Unavailable Sarah Ch Referring Unavailable Bonezzi, Sarah Primary Care Unavailable Bubba Romero Attending Unavailable Bubba Romero Referring Unavailable Sarah Ch Primary Care Unavailable Bubba Romero Attending Unavailable Sarah Ch Primary Care Unavailable Bubba Romero Referring Unavailable Bonepauli, Sarah Attending Unavailable Bonepauli, Sarah Primary Care Unavailable PROBLEMS PROBLEMS DATE TYPE CONDITION / CODE ATTENDING STATUS SOURCE 06/16/2018 Unknown 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0(ICD-10) Repository 12/16/2017 Unknown D50.8 - Other iron Bonelu, Sarah Active [facility] deficiency anemias [facility] / D50.8(ICD-10) Hospital Repository 12/16/2017 Unknown Z98.84 - Bariatric Bonelu, Sarah Active [place] surgery status / [facility] Z98.84(ICD-10) Hospital Repository PROCEDURES PROCEDURES No Procedure Records FoundRESULTS RESULTS OPERATIVE REPORT Observed: 07/10/2018 Status: F Source: [place] 10:04 AM [facility] REPOSITORY [facility] Medical Records Department [address] [place] [id number] Operative Report 07/10/18 1002 MR#: [id number] Acct: [id number] Name: JOSE J COBIAN Rep #: [id number] : 1955 63 From: Bubba Romero MD PCP: Sarah Ch MD Status: REG [facility] Y Location: [place] [address] Problem List (1) Disc disease, degenerative, lumbar or lumbosacral Status: Chronic (2) Lumbosacral spondylosis Status: Chronic Report of Operation Date of Procedure: 07/10/18 Pre-Operative Diagnosis: Lumbosacral spondylosis, lumbosacral degenerative disc disease, lumbar facet arthropathy Post-Operative Diagnosis: Lumbosacral spondylosis, lumbosacral degenerative disc disease, lumbar facet arthropathy Surgery/Procedure Performed:: Left-sided lumbar radiofrequency ablation of the medial branch at L3, L4, L5, S1 Description of Surgical Findings:: PROCEDURE: Left-sided radiofrequency ablation of the medial branch L3, L4, L5, S1 PREOPERATIVE DIAGNOSES: Lumbosacral spondylosis, lumbosacral degenerative disc disease, lumbar facet arthropathy POSTOPERATIVE DIAGNOSES: Lumbosacral spondylosis, lumbosacral degenerative disc disease, lumbar facet arthropathy ANESTHESIA: MAC COMPLICATIONS: None BLOOD LOSS: Minimal PROCEDURE IN DETAIL: History and physical today was reviewed. Risks and benefits of procedure explained. The patient understood, agreed to the procedure and informed consent was obtained. IV inserted per routine protocol. The patient was taken to the operating room, placed in the prone position with a pillow positioned underneath the abdomen. The left side of the lower back was prepped and draped in a sterile fashion using iodine x 3. Under fluoroscopy guidance, on an oblique view, the L3 through S1 vertebral bodies were visualized. The skin and subcutaneous tissue was anesthetized with approximately 10 mL of 1% lidocaine using a 25-gauge regular needle. Under direct visualization with fluoroscopy at approximately 25-degree angle, starting on the left L3, ending on the left S1 passing through the L4-L5 using a 20-gauge 15 cm with a 10 mm curved active tip radiofrequency ablation needle the needle passed through the skin. The tip of the needle was maneuvered and directed towards the superior and medial gutter of the transverse process at the vicinity of the medial branch. Once the tip of the needle was in contact with the bone, the needle pulled approximately 2 mm up the bone. The stylet of each needle was then removed. After negative aspiration of blood with CSF and confirmation of AP as well as oblique view, radiofrequency ablation probe was then inserted at each level. Impedance was then recorded at L3 to be 217, at L4 219, at L5 229, at S1 260 ohm. Motor-evoked potential was then initiated to 1.5 volt without any motor response at each corresponding level. The probe was then removed intact and a total of 6 mL preservative- free 1% lidocaine was injected in divided doses between those 4 levels after negative aspiration of blood with CSF. The radiofrequency ablation probe was then reinserted after confirmation of AP, oblique as well as lateral view. Radiofrequency ablation was then initiated to 80 degrees Celsius for 90 seconds at each level. Once concluded, the probe was then removed intact and a total of 6 mL of preservative-free 0.25% Marcaine with 40 mg Depo-Medrol was injected in divided doses between those 4 levels. The needles were then removed intact. The patient experienced no signs or symptoms of intrathecal, intravascular injection. The patient experienced no paraesthesia. The procedure was completed without any apparent difficulty, any complication. The patient appeared to tolerate well. Sensory as well as motor exam was unchanged from prior to procedure. ASSESSMENT AND PLAN: This is a 63-year-old Female with lumbosacral spondylosis, lumbosacral degenerative disc disease, lumbar facet arthropathy, status post left-sided radiofrequency ablation of the medial branch L3 through S1. The patient will continue her current medications. The patient will follow up in approximately 2 weeks for reevaluation. 07/10/18 1004 <Electronically signed by Bubba Romero MD> Date Bubba Romero MD CC: Sarah Ch; Sarah Ch MD; Bubba Romero Signed PROTIME W/INR Collected: 07/10/2018 Status: F Source: [place] 8:56 AM [facility] [place] TYPE CODE TESTS RESULT OUT OF RANGE REFERENCE UNITS LAB L9200.1001 11.9-14.4 SEC Normal PROTIME ISTAT 13.1 Result Comment: Reference Range 11.9 - 14.4 LAB L9200.2000 Normal INR ISTAT 1.10 Result Comment: Critical Value > 3.5 Performed By: #### L9200.0000 #### [facility] Point of Care [address] [place] [address] L/S SPINE MIN 4 Observed: 07/10/2018 Status: F Source: [place] V[place] 2:28 AM [facility] [place] [facility] Imaging Services [address] [place] [address] L/S Spine Min 4 Views MR#: [id number] Acct: [id number] Name: JOSE J COBIAN #: [id number] : 1955 F 63 From: Bartolome Patel MD PCP: Sarah Ch MD Status: [facility] Study: L/S Spine Min 4 Views Date of Exam: 07/10/18 Exam# [id number] Ordering Dr: Bubba Romero MD PROCEDURE: Left L3-S1 radiofrequency ablation. DATE OF EXAMINATION: July 10, 2018. INDICATION: Female, 63 years old. Chronic back pain. FLUOROSCOPY TIME (if supplied): (26.7 seconds) minutes/seconds. 7 images were obtained. Intraoperative imaging was provided for left L3-S1 radiofrequency ablation. The spinal needles are seen at the appropriate levels. RAD/L/S Spine Min 4 Views IMPRESSION: Intraoperative imaging provided for left L3-S1 radiofrequency ablation. Electronically Signed: Bartolome Patel MD at 9:30 EST Tel [phone], Service support , CC: Sarah Ch MD; Bubba Romero Bike Mechanic: Signed PROTHROMBIN TIME W/INR Collected: 06/16/2018 Status: F Source: [place] 12:06 PM [facility] [place] Order Comment: Comments: Standing Comments: Standing TYPE CODE TESTS RESULT OUT OF RANGE REFERENCE UNITS LAB L300.4150 11.7-14.9 SECONDS High PROTIME 26.2 LAB L300.4200 Normal INR 2.4 Performed By: #### L300.3900 #### [facility] [address] [place], [address] CBC-COMPLETE BLOOD CNT Collected: 05/22/2018 Status: F Source: [place] NO DIFF 2:27 PM [facility] [place] TYPE CODE TESTS RESULT OUT OF RANGE REFERENCE UNITS LAB L100.1000 4.4-11.0 K/mm3 Normal WBC 5.3 LAB L100.1200 4.2-5.4 M/mm3 Normal RBC 4.31 LAB L100.1300 12.0-15.0 g/dl Normal HGB 13.0 LAB L100.1400 37-47 % Normal HCT 39.0 LAB L100.1500 81-99 fL Normal MCV 90.5 LAB L100.1600 27.0-32.0 pg Normal MCH 30.2 LAB L100.1700 32-36 g/gl Normal MCHC 33.3 LAB L100.1810 11.6-14.6 % Normal RDW CV 14.2 LAB L100.1820 35.1-43.9 fl High RDW SD 46.4 LAB L100.1900 150-450 K/mm3 Normal PLT 266 LAB L100.2000 6.2-12.0 fl Normal MPV 9.3 Performed By: #### L100.0500 #### [facility] [address] [place], [address] COMPREHENSIVE METABOLIC Collected: 05/22/2018 Status: F Source: [facility] 2:27 PM [facility] [place] TYPE CODE TESTS RESULT OUT OF RANGE REFERENCE UNITS LAB L501.0100 74-106 mg/dL Normal GLU 103 Result Comment: Fasting Glucose result from 100 to 125 mg/dL suggests IMPAIRED HOMEOSTASIS per A.D.A. criteria. Please note revised GLUCOSE reference range effective 2017. LAB L501.1000 7-18 mg/dL Normal BUN 16 LAB L501.1100 0.55-1.02 mg/dL Normal CREAT,SERUM 0.79 Result Comment: The validity of the calculated GFR AND GFRAA in patients over 70 years has not been determined. Clinical correlation is essential. LAB L501.1110 >60 mL/min Normal EST GFR 78 Result Comment: Non- GFR Calc LAB L501.1115 >60 mL/min Normal EST GFR - AA 95 Result Comment: GFR Calc LAB L501.1255 ml/min Normal Estimated CRCL 92.00 LAB L501.1300 10-20 RATIO High BUN/CRE 20.2 LAB L501.1500 6.4-8. g/dL Normal 2 T PROT 7.1 LAB L501.1800 3.2-5. g/dL Normal 0 ALB 3.9 LAB L501.1950 2.2-4. g/dL Normal 2 GLOB 3.2 LAB L501.2000 0.9-2. RATIO Normal 4 A/G 1.2 LAB L501.2200 8.5-10 mg/dL Normal .1 CA 8.6 LAB L501.4100 15-37 U/L Low AST 14 LAB L501.4305 45-117 U/L Normal ALK P 82 LAB L501.4405 13-56 U/L Normal ALT 23 LAB L501.4600 0.20-1 mg/dL Normal .00 T BILI 0.30 LAB L501.5300 136-14 mmol/L Low 5 NA 135 LAB L501.5600 3.5-5. mmol/L Normal 1 K 4.4 LAB L501.5900 98-107 mmol/L Normal CL 102 LAB L501.6100 21.0-3 mmol/L Normal 2.0 CO2 29.0 LAB L501.6200 5-15 Low GAP 4 Performed By: #### L500.4050, L501.2400, L501.2450 #### [facility] [address] [facility] [place], [place], [id number] AMYLASE Collected: 05/22/2018 Status: F Source: [place] 2:27 PM [facility] [place] TYPE CODE TESTS RESULT OUT OF RANGE REFERENCE UNITS LAB L501.2400 25-115 U/L Normal AURY 73 Performed By: #### L500.4050, L501.2400, L501.2450 #### [facility] [address] [place], [place], [address] LIPASE Collected: 05/22/2018 Status: F Source: [place] 2:27 PM [facility] [place] TYPE CODE TESTS RESULT OUT OF RANGE REFERENCE UNITS LAB L501.2450 73-393 U/L Normal LIPASE 314 Performed By: #### L500.4050, L501.2400, L501.2450 #### [facility] [address] [facility] [place], [place], [address] URINALYSIS, ROUTINE Collected: 05/22/2018 Status: F Source: [place] ([place]) 2:27 PM [facility] [place] Order Comment: How was Urine Obtained? Urine, Random TYPE CODE TESTS RESULT OUT OF RANGE REFERENCE UNITS LAB L400.3000 Yellow COLOR Normal Yellow LAB L400.3050 Clear Normal CLARITY Clear LAB L400.3200 Normal mg/dl Normal GLUCOSE, UR Normal LAB L400.3300 Negative mg/dL Normal BILIRUBIN URINE Negative LAB L400.3400 Negative mg/dl Normal KETONE UR Negative LAB L400.3465 1.002-1.030 Normal SP.GR. DIPSTX 1.010 LAB L400.3550 5.0 - 8.0 pH UR Normal 6.5 LAB L400.3600 Negative mg/dl PROT Normal DIPSTX Negative LAB L400.3700 Normal mg/dl Normal UROBILI Normal LAB L400.3750 Negative Normal NITRITE UR Negative LAB L400.3780 Negative /ul Normal OCCULT BLOOD-UR Negative LAB L400.3800 Negative /ul LEUK Normal ESTERASE Negative Performed By: #### L400.2010 #### [facility] [address] [facility] [place], [address] OPERATIVE REPORT Observed: 05/08/2018 Status: F Source: [place] 10:56 AM [facility] [place] [facility] Medical Records Department [address] [place] [address] Operative Report 05/08/18 1043 MR#: [id number] Acct: [id number] Name: JOSE J COBIAN Rep #: [id number] : 1955 63 From: Bubba Romero MD PCP: Sarah Ch MD Status: REG [facility] Y Location: [place] [address] Problem List (1) Disc disease, degenerative, lumbar or lumbosacral Status: Chronic (2) Lumbosacral spondylosis Status: Chronic Report of Operation Date of Procedure: 05/08/18 Pre-Operative Diagnosis: Lumbosacral spondylosis, lumbosacral degenerative disc disease, lumbar facet arthropathy Post-Operative Diagnosis: Lumbosacral spondylosis, lumbosacral degenerative disc disease, lumbar facet arthropathy Surgery/Procedure Performed:: Left-sided lumbar facet steroid injection L3, L4, L5, S1 Description of Surgical Findings:: PROCEDURE: Left-sided lumbar facet steroid injection L3, L4, L5, S1 PREOPERATIVE DIAGNOSIS: Lumbosacral spondylosis, lumbosacral degenerative disc disease, lumbar facet arthropathy POSTOPERATIVE DIAGNOSIS: Lumbosacral spondylosis, lumbosacral degenerative disc disease, lumbar facet arthropathy ANESTHESIA: MAC COMPLICATIONS: None BLOOD LOSS: Minimal PROCEDURE IN DETAIL: History and physical today was reviewed. Risks and benefits of the procedure were explained. The patient understood, agreed to our procedure, and informed consent was obtained. IV inserted per routine protocol. The patient was taken to the operating room, placed in a prone position with a pillow positioned underneath the abdomen. The left side of her lower back was prepped and draped in a sterile fashion using iodine x3. Under fluoroscopy guidance, on AP view, L3 through S1 vertebral bodies were visualized. Skin and subcutaneous tissues were anesthetized with approximately 5 mL of 1% lidocaine using a 25-gauge regular needle. Under direct visualization with fluoroscopy at approximately 25-degree angle, starting on the left L3, ending on the left S1, passing through the L4-L5 using a 22-gauge 3 1/2-inch [...] needles were then removed intact. The patient experienced no signs or symptoms intrathecal, intravascular injection. The patient experienced no paraesthesia. The procedure was completed without any apparent difficult, any complication. The patient appeared to tolerate well. ASSESSMENT AND PLAN: This is a 63-year-old Female with Lumbosacral spondylosis, lumbosacral degenerative disc disease, lumbar facet arthropathy, status post left-sided lumbar facet steroid injection [id number] S1. The patient will continue his current medications. The patient will follow in approximately 2 weeks for reevaluation 05/08/18 1056 <Electronically signed by Bubba Romero MD> Date Bubba Romero MD CC: Sarah Ch; Sarah Ch MD; Bubba Romero Signed PROTIME W/INR Collected: 05/08/2018 Status: F Source: [place] 10:01 AM [facility] [place] TYPE CODE TESTS RESULT OUT OF RANGE REFERENCE UNITS LAB L9200.1001 11.9-14.4 SEC Normal PROTIME ISTAT 11.9 Result Comment: Reference Range 11.9 - 14.4 LAB L9200.2000 Normal INR ISTAT 1.00 Result Comment: Critical Value > 3.5 Performed By: #### L9200.0000 #### [facility] Point of Care [address] [place] [address] L/S SPINE MIN 4 Observed: 05/08/2018 Status: F Source: [place] 2:20 AM [facility] [place] [facility] Imaging Services [address] [place] [address] L/S Spine Min 4 Views MR#: [id number] Acct: [id number] Name: JOSE J COBIAN Rep #: [id number] : 1955 F 63 From: Gurdeep Vaca MD PCP: Sarah Ch MD Status: [facility] Study: L/S Spine Min 4 Views Date of Exam: 05/08/18 Exam# [id number] Ordering Dr: Bubba Romero MD STUDY: X-RAY - LUMBAR SPINE REASON FOR EXAM: Female, 63 years old. Facet block. TECHNIQUE: 4 C-arm view(s) of the lumbar spine were obtained. 14.1 seconds fluoroscopy time. COMPARISON: None FINDINGS: 4 C-arm views show needles in positions compatible with the left facet joints at L2-L3, L3-L4, L4-L5, L5-S1. Correlate with procedure note. Electronically Signed: Gurdeep Vaca MD at 15:27 EST , Service support , RAD/L/S Spine Min 4 Views CC: Sarah Ch MD; Bubba Romero Bike Mechanic: Signed OPERATIVE REPORT Observed: 04/03/2018 Status: F Source: [place] 11:20 AM [facility] [place] Medical Records Department [address] [place] [address] Operative Report 04/03/18 1117 MR#: [id number] Acct: [id number] Name: JOSE J COBIAN Rep #: [id number] : 1955 63 From: Bubba Romero MD PCP: Sarah Ch MD Status: DEP [facility] Y Location: [facility] Problem List (1) Disc disease, degenerative, lumbar or lumbosacral Status: Chronic (2) Lumbosacral spondylosis Status: Chronic Report of Operation Date of Procedure: 04/03/18 Pre-Operative Diagnosis: Lumbosacral spondylosis, lumbosacral degenerative disc disease, lumbar facet arthropathy Post-Operative Diagnosis: Lumbosacral spondylosis, lumbosacral degenerative disc disease, lumbar facet arthropathy Surgery/Procedure Performed:: Right-sided lumbar radiofrequency ablation of the medial branch at L3, L4, L5, S1 Description of Surgical Findings:: PROCEDURE: Right-sided lumbar radiofrequency ablation of the medial branch L3, L4, L5, S1 PREOPERATIVE DIAGNOSES: Lumbosacral spondylosis, lumbosacral degenerative disc disease, lumbar facet arthropathy POSTOPERATIVE DIAGNOSES: Lumbosacral spondylosis, lumbosacral degenerative disc disease, lumbar facet arthropathy ANESTHESIA: MAC COMPLICATIONS: None BLOOD LOSS: Minimal PROCEDURE IN DETAIL: History and physical today was reviewed. Risks and benefits of procedure explained. The patient understood, agreed to the procedure and informed consent was obtained. IV inserted per routine protocol. The patient was taken to the operating room, placed in the prone position with a pillow positioned underneath the abdomen. The right side of the lower back was prepped and draped in a sterile fashion using iodine x 3. Under fluoroscopy guidance, on an oblique view, the L3 through S1 vertebral bodies were visualized. The skin and subcutaneous tissue was anesthetized with approximately 10 mL of 1% lidocaine using a 25-gauge regular needle. Under direct visualization with fluoroscopy at approximately 25-degree angle, starting on the right L3, ending on the right S1 passing through the L4-L5 using a 20-gauge 10 cm with a 10 mm curved active tip radiofrequency ablation needle the needle passed through the skin. The tip of the needle was maneuvered and directed towards the superior and medial gutter of the transverse process at the vicinity of the medial branch. Once the tip of the needle was in contact with the bone, the needle pulled approximately 2 mm up the bone. The stylet of each needle was then removed. After negative aspiration of blood with CSF and confirmation of AP as well as oblique view, radiofrequency ablation probe was then inserted at each level. Impedance was then recorded at L3 to be 259, at L4 272, at L5 254, at S1 254 ohm. Motor-evoked potential was then initiated to 1.5 volt without any motor response at each corresponding level. The probe was then removed intact and a total of 6 mL preservative- free 1% lidocaine was injected in divided doses between those 4 levels after negative aspiration of blood with CSF. The radiofrequency ablation probe was then reinserted after confirmation of AP, oblique as well as lateral view. Radiofrequency ablation was then initiated to 80 degrees Celsius for 90 seconds at each level. Once concluded, the probe was then removed intact and a total of 6 mL of preservative-free 0.25% Marcaine with 40 mg Depo-Medrol was injected in divided doses between those 4 levels. The needles were then removed intact. The patient experienced no signs or symptoms of intrathecal, intravascular injection. The patient experienced no paraesthesia. The procedure was completed without any apparent difficulty, any complication. The patient appeared to tolerate well. Sensory as well as motor exam was unchanged from prior to procedure. ASSESSMENT AND PLAN: This is a 63-year-old female with lumbosacral spondylosis, lumbosacral degenerative disc disease, lumbar facet arthropathy, status post right-sided lumbar radiofrequency ablation of the medial branch L3 through S1. The patient will continue her current medications. The patient will follow up in approximately 2 weeks for reevaluation. 04/03/18 1120 <Electronically signed by Bubba Romero MD> Date Bubba Romero MD CC: Sarah Ch; Sarah Ch MD; Bubba Romero Signed PROTIME W/INR Collected: 04/03/2018 Status: F Source: JO[place] [place] 8:00 AM [facility] CODE TESTS RESULT OUT OF RANGE REFERENCE UNITS LAB L9200.1001 11.9-14.4 SEC Normal PROTIME ISTAT 13.7 Result Comment: Reference Range 11.9 - 14.4 LAB L9200.2000 Normal INR ISTAT 1.10 Result Comment: Critical Value > 3.5 Performed By: #### L9200.0000 #### [facility] Point of Care [address] [place] [address] L/S SPINE MIN 4 Observed: 04/03/2018 Status: F Source: [place] VIE[place] 12:30 AM [facility] [facility] Imaging Services [address] [place] [address] L/S Spine Min 4 Views MR#: [id number] Acct: [id number] Name: [place] J COBIAN Rep #: [id number] : 1955 F 63 From: Bartolome Patel MD PCP: Sarah Ch MD Status: [facility] Study: L/S Spine Min 4 Views Date of Exam: 04/03/18 Exam# [id number] Ordering Dr: Bubba Romreo MD PROCEDURE: Right L3-S1 radiofrequency ablation. DATE OF EXAMINATION: April 03, 2018. INDICATION: Female, 63 years old. Chronic low back pain. FLUOROSCOPY TIME (if supplied): (0:35) minutes/seconds. 9 fluoroscopic spot views were obtained intraoperatively. RAD/L/S Spine Min 4 Views IMPRESSION: Intraoperative fluoroscopic services provided for right L3-S1 radiofrequency ablation. Electronically Signed: Bartolome Patel MD at 8:35 EDT Tel [phone], Service support , CC: Sarah Ch MD; Bubba Romero Bike Mechanic: Signed SCREENING MAMM (CAD), Observed: 03/21/2018 Status: F Source: [place] BIL[place] 10:34 AM [facility] [place] [facility] Imaging Services [address] [place] [address] SCREENING MAMM (CAD), BILAT MR#: [id number] Acct: [id number] Name: [place] J COBIAN Rep #: [id number] : 1955 F 63 From: Bartolome Patel MD PCP: Sarah Ch MD Status: REG CLI Study: SCREENING MAMM (CAD), BILAT Date of Exam: 03/21/18 Exam# [id number] Ordering Dr: Sarah Ch MD MAMMOGRAPHY - BILATERAL SCREENING REASON FOR [...] 05, 2014. FINDINGS: Breast Composition: The breasts are heterogeneously dense, which may obscure small masses. There are no dominant masses or suspicious calcifications. Once again, the reservoir of a port is seen in the right axillary region. No other significant abnormalities are identified. There has been no significant change since the prior study. BI/SCREENING MAMM (CAD), BILAT IMPRESSION: Stable bilateral screening mammogram. Yearly follow-up mammogram recommended. (A) ASSESSMENT CATEGORY: BIRADS Category 2: Benign. A letter regarding these results will be sent to the patient by the facility within 30 days. Approximately 10% of breast cancers are not detected by mammography. A normal mammogram should not delay biopsy of a clinically suspicious abnormality. [id number] Electronically Signed: Bartolome Patel MD at 13:21 EDT Tel [phone], Service support , CC: Sarah Ch MD Bike Mechanic: Signed DEXA BONE DENSITY Observed: 03/21/2018 Status: F Source: [place] STUDY 10:34 AM [facility] [place] [facility] Imaging Services [address] [place] [address] Dexa Bone Density Study MR#: [id number] Acct: [id number] Name: [place] J COBIAN Rep #: [id number] : 1955 F 63 From: Bartolome Patel MD PCP: Sarah Ch MD Status: REG CLI Study: Dexa Bone Density Study Date of Exam: 03/21/18 Exam# [id number] Ordering Dr: Sarah Ch MD STUDY: DUAL ENERGY X-RAY ABSORPTIOMETRY / [...] Neck: g/cm2 (0.962) / T-score (-0.5) / Z- score (0.8) Right Femur Total: g/cm2 (0.966) / T-score (-0.3) / Z- score (0.7) Right Femoral Neck: g/cm2 (0.930) / T-score (-0.8) / Z-score (0.5) The T-Scores on the most recent prior examination were: Lumbar Spine (L1-L4): There has been improvement of bone density since the previous examination. Left Femur Total: which represents a worsening of 0.9%. Right Femur Total: which represents a worsening of 7.1%. BD/Dexa Bone Density Study IMPRESSION: The patient is considered normal as outlined below according to World Rogers Organization (WHO) criteria with a low fracture risk. [...] -1 through -1.5 Moderate -1.6 through -2.0 Severe -2.1 through -2.4 The Z-score is the number of standard deviations above or below age-matched controls. A Z-score of less than -1.5 would be considered abnormal. References: 1. NIH Osteoporosis and Related Bone Diseases http://www.osteo.org 2. International Society for Clinical Densitometry http://www.iscd.org 3. National Osteoporosis Foundation http://www.nof.org Electronically Signed: Bartolome Patel MD at 15:07 EDT Tel [phone], Service support , CC: Sarah Ch MD Bike Mechanic: Signed OPERATIVE REPORT Observed: 01/16/2018 Status: F Source: [place] 10:23 AM [facility] [place] [facility] Medical Records Department [address] [place] [address] Operative Report 01/16/18 1020 MR#: [id number] Acct: [id number] Name: COBIANJOSE J WOODARD Rep #: [id number] : 1955 62 From: Bubba Romero MD PCP: Sarah Ch MD Status: DEP [facility] Y Location: [facility] Problem List (1) Disc disease, degenerative, lumbar or lumbosacral Status: Chronic (2) Lumbosacral spondylosis Status: Chronic Report of Operation Date of Procedure: 01/16/18 Pre-Operative Diagnosis: Lumbosacral spondylosis, lumbosacral degenerative disc disease, lumbar facet arthropathy Post-Operative Diagnosis: Lumbosacral spondylosis, lumbosacral degenerative disc disease, lumbar facet arthropathy Surgery/Procedure Performed:: Left-sided lumbar facet steroid injection L3, L4, L5, S1 Description of Surgical Findings:: PROCEDURE: Left-sided lumbar facet steroid injection L3, L4, L5, S1 PREOPERATIVE DIAGNOSIS: Lumbosacral spondylosis, lumbosacral degenerative disc disease, lumbar facet arthropathy POSTOPERATIVE DIAGNOSIS: Lumbosacral spondylosis, lumbosacral degenerative disc disease, lumbar facet arthropathy ANESTHESIA: MAC COMPLICATIONS: None BLOOD LOSS: Minimal PROCEDURE IN DETAIL: History and physical today was reviewed. Risks and benefits of the procedure were explained. The patient understood, agreed to our procedure, and informed consent was obtained. IV inserted per routine protocol. The patient was taken to the operating room, placed in a prone position with a pillow positioned underneath the abdomen. The left side of her lower back was prepped and draped in a sterile fashion using iodine x3. Under fluoroscopy guidance, on AP view, L3 through S1 vertebral bodies were visualized. Skin and subcutaneous tissues were anesthetized with approximately 5 mL of 1% lidocaine using a 25-gauge regular needle. Under direct visualization with fluoroscopy at approximately 25-degree angle, starting on the left L3, ending on the left S1, passing through the L4-L5 using a 22-gauge 3 1/2-inch [...] needles were then removed intact. The patient experienced no signs or symptoms intrathecal, intravascular injection. The patient experienced no paraesthesia. The procedure was completed without any apparent difficult, any complication. The patient appeared to tolerate well. ASSESSMENT AND PLAN: This is a 62-year-old Female with Lumbosacral spondylosis, lumbosacral degenerative disc disease, lumbar facet arthropathy, status post left-sided lumbar facet steroid injection L3 through S1. The patient will continue her current medications. The patient will follow in approximately 2 weeks for possible repeat of the procedure if indicated. 01/16/18 1023 <Electronically signed by Bubba Romero MD> Date Bubba Romero MD CC: Sarah Ch; Sarah Ch MD; Bubba Romero Signed PROTIME W/INR Collected: 01/16/2018 Status: F Source: [place] 7:42 AM [facility] [place] TYPE CODE TESTS RESULT OUT OF RANGE REFERENCE UNITS LAB L9200.1001 11.9-14.4 SEC Normal PROTIME ISTAT 12.4 Result Comment: Reference Range 11.9 - 14.4 LAB L9200.2000 Normal INR ISTAT 1.00 Result Comment: Critical Value > 3.5 Performed By: #### L9200.0000 #### [facility] Point of Care [address] [place] [address] L/S SPINE MIN 4 Observed: 01/16/2018 Status: F Source: [place] VIEWS 12:31 AM [facility] [place] [facility] Imaging Services [address] [place] [address] L/S Spine Min 4 Views MR#: [id number] Acct: [id number] Name: [place] J COBIAN Rep #: [id number] : 1955 F 62 From: Bartolome Patel MD PCP: Sarah Ch MD Status: DEP [facility] Study: L/S Spine Min 4 Views Date of Exam: 01/16/18 Exam# [id number] Ordering Dr: Bubba Romero MD PROCEDURE: Left lumbar facet block. DATE OF EXAMINATION: January 16, 2018. INDICATION: Female, 62 years old. Back pain. FLUOROSCOPY TIME (if supplied): (0:17) minutes/seconds Intraoperative fluoroscopic imaging provided for left L3-S1 facet joint block. The spinal needles are seen at the appropriate sites. RAD/L/S Spine Min 4 Views IMPRESSION: Fluoroscopic imaging provided for left L3-S1 facet joint block. Electronically Signed: Bartolome Patel MD at 8:18 EDT Tel [phone], Service support , CC: Sarah Ch MD; Bubba Romero Bike Mechanic: Signed CBC W/DIFF, AUTOMATED Collected: 12/16/2017 Status: F Source: [place] 12:14 PM [facility] [place] TYPE CODE TESTS RESULT OUT OF RANGE REFERENCE UNITS LAB L100.1000 4.4-11.0 K/mm3 Normal WBC 4.7 LAB L100.1200 4.2-5.4 M/mm3 Low RBC 3.92 LAB L100.1300 12.0-15.0 g/dl Low HGB 11.9 LAB L100.1400 37-47 % Low HCT 35.7 LAB L100.1500 81-99 fL Normal MCV 91.1 LAB L100.1600 27.0-32.0 pg Normal MCH 30.4 LAB L100.1700 32-36 g/gl Normal MCHC 33.3 LAB L100.1810 11.6-14.6 % Normal RDW CV 13.9 LAB L100.1820 35.1-43.9 fl High RDW SD 46.2 LAB L100.1900 150-450 K/mm3 Normal PLT 238 LAB L100.2000 6.2-12.0 fl Normal MPV 9.4 LAB L100.2100 47-70 % Normal NEUT% 53.2 LAB L100.2200 19-41 % Normal LY% 34.5 LAB L100.2300 0-10 % Normal MONO% 7.2 LAB L100.2400 0-5 % Normal EO% 4.9 LAB L100.2500 0-1 % Normal BASO% 0.2 LAB L100.2550 0.0-0.9 % Normal IM GRAN % 0.000 Result Comment: IG% - Immature Granulocytes (promyelocytes, myelocytes and metamyelocytes) > 1% indicates that a LEFT SHIFT is Present. LAB L100.2620 2.0-7.7 X10 3/uL Normal Absolute Neut 2.5 LAB L100.2720 0.83-4.51 X10 3/ul Normal Absolute Lymph 1.62 Performed By: #### L100.0100 #### [facility] [address] [place], [place], [address] COMPREHENSIVE METABOLIC Collected: 12/16/2017 Status: F Source: [facility] 12:14 PM [facility] TYPE CODE TESTS RESULT OUT OF RANGE REFERENCE UNITS LAB L501.0100 74-106 mg/dL Normal GLU 101 Result Comment: Fasting Glucose result from 100 to 125 mg/dL suggests IMPAIRED HOMEOSTASIS per A.D.A. criteria. Please note revised GLUCOSE reference range effective 2017. LAB L501.1000 7-18 mg/dL Normal BUN 15 LAB L501.1100 0.55-1.02 mg/dL Normal CREAT,SERUM 0.78 Result Comment: The validity of the calculated GFR AND GFRAA in patients over 70 years has not been determined. Clinical correlation is essential. LAB L501.1110 >60 mL/min Normal EST GFR 79 Result Comment: Non- GFR Calc LAB L501.1115 >60 mL/min Normal EST GFR - AA 96 Result Comment: GFR Calc LAB L501.1300 10-20 RATIO Normal BUN/CRE 19.2 LAB L501.1500 6.4-8.2 g/dL T Normal PROT 6.8 LAB L501.1800 3.2-5.0 g/dL Normal ALB 3.7 LAB L501.1950 2.2-4.2 g/dL Normal GLOB 3.1 LAB L501.2000 0.9-2.4 RATIO Normal A/G 1.2 LAB L501.2200 8.5-10.1 mg/dL CA Normal 8.5 LAB L501.4100 15-37 U/L Normal AST 22 LAB L501.4305 45-117 U/L Normal ALK P 87 LAB L501.4405 13-56 U/L Normal ALT 25 LAB L501.4600 0.20-1.00 mg/dL T Normal BILI 0.30 LAB L501.5300 136-145 mmol/L NA Normal 137 LAB L501.5600 3.5-5.1 mmol/L K Normal 4.2 LAB L501.5900 98-107 mmol/L CL Normal 103 LAB L501.6100 21.0-32.0 mmol/L Normal CO2 29.0 LAB L501.6200 5-15 Normal GAP 5 Performed By: #### L500.4050, L503.6550 #### [facility] [address] [place], [address] FERRITIN Collected: 12/16/2017 Status: F Source: [place] 12:14 PM [facility] [place] TYPE CODE TESTS RESULT OUT OF RANGE REFERENCE UNITS LAB L503.6550 8-252 ng/mL Normal FERRITIN 82 Performed By: #### L500.4050, L503.6550 #### [facility] [address] [place], [address] VITAMIN B12 Collected: 12/16/2017 Status: F Source: [place] 12:14 PM [facility] [place] TYPE CODE TESTS RESULT OUT OF RANGE REFERENCE UNITS LAB L503.0105 211-911 pg/mL Normal Vitamin B12 558 Performed By: #### L503.0105 #### [facility] [address] [place], [address] OPERATIVE REPORT Observed: 11/07/2017 Status: F Source: [place] 10:30 AM [facility] [place] [facility] Medical Records Department [address] [place] [address] Operative Report 11/07/17 1027 MR#: [id number] Acct: [id number] Name: [place] J COBIAN Rep #: [id number] : 1955 62 From: Bubba Romero MD PCP: Sarah Ch MD Status: REG SDC Y Location: [place] [address] Problem List (1) Disc disease, degenerative, lumbar or lumbosacral Status: Chronic (2) Lumbosacral spondylosis Status: Chronic Report of Operation Date of Procedure: 11/07/17 Pre-Operative Diagnosis: Lumbosacral spondylosis, lumbosacral degenerative disc disease, lumbar facet arthropathy Post-Operative Diagnosis: Lumbosacral spondylosis, lumbosacral degenerative disc disease, lumbar facet arthropathy Surgery/Procedure Performed:: Right-sided lumbar facet steroid injection L3, L4, L5, S1 Description of Surgical Findings:: PROCEDURE: Right-sided lumbar facet steroid injection L3, L4, L5, S1 PREOPERATIVE DIAGNOSIS: Lumbosacral spondylosis, lumbosacral degenerative disc disease, and lumbar facet arthropathy POSTOPERATIVE DIAGNOSIS: Lumbosacral spondylosis, lumbosacral degenerative disc disease, and lumbar facet arthropathy ANESTHESIA: MAC COMPLICATIONS: None BLOOD LOSS: Minimal PROCEDURE [...] L3, ending on the right S1, passing through the L4-L5 using a 22-gauge 3 1/2-inch [...] needles were then removed intact. The patient experienced no signs or [...] possible repeat of the procedure if indicated. 11/07/17 1030 <Electronically signed by Bubba Romero MD> Date Bubba Romero MD CC: Sarah Ch MD; Bubba Romero Signed L/S SPINE MIN 4 Observed: 11/07/2017 Status: F Source: [place] VIEWS 12:41 AM [facility] [place] [facility] Imaging Services [address] [place] [address] L/S Spine Min 4 Views MR#: [id number] Acct: [id number] Name: [place] J COBIAN Rep #: [id number] : 1955 F 62 From: Bartolome Patel MD PCP: Sarah Ch MD Status: REG [facility] Study: L/S Spine Min 4 Views Date of Exam: 11/07/17 Exam# [id number] Ordering Dr: Bubba Romero MD PROCEDURE: Right L3-S1 facet joint block. DATE OF EXAMINATION: November 07, 2017. INDICATION: Female, 62 years old. Low back pain. FLUOROSCOPY TIME (if supplied): (0:10) minutes/seconds Intraoperative imaging provided for right L3-S1 facet joint block. RAD/L/S Spine Min 4 Views IMPRESSION: Intraoperative imaging provided for right L3-S1 facet joint block. Electronically Signed: Bartolome Patel MD at 11:01 EDT Tel [phone], Service support , CC: Sarah Ch MD; Bubba Romero Bike Mechanic: Signed CARDIOLOGY VISIT Observed: 10/04/2017 Status: F Source: [place] RE[place] 11:09 AM [facility] [place] [facility] [address] [place] [address] OFFICE VISIT Date of Service: 10/03/17 MR#: [id number] Acct: [id number] Name: [place] J COBIAN Rep #: [id number] : 1955 Provider: Chanel Shaw Age/Sex: 62/F Location[place] [facility] Status: Signed HPI HPI Details: JO[place] J COBIAN, is a 62 F who presents to the office today for for a cardiovascular follow-up. She was last seen in our [...] chest pain currently. Last week, she did have some heaviness. This is not new and she has had them before. She does not have any worsening SOB. She does not have any palpitations that she is aware of. She does not have any lightheadedness/dizziness. She does not any near syncope/syncope. She does not have any edema. Intake Vital Signs10/03/17 Height 4 ft 10 in 10/03/17 Weight: 183 lb 10/03/17 Body Mass Index (BMI) 38.2 10/03/17 Blood Pressure 146/82 10/03/17 Blood Pressure Location Rt brachial Intake Visit Reasons: NOT SEEN SINCE 05/2016 Purchasing Manager Required: No Accompanied by: Is patient in pain?: Yes (chronic pain in spine, achy) Pain scale (1-10): 5 Allergies hydroxychloroquine sulfate [From Plaquenil] Allergy (Intermediate, Verified 10/03/17 11:12) Rash Penicillins Allergy (Intermediate, Verified 10/03/17 11:12) Rash adhesive tape Allergy (Verified 10/03/17 11:12) Rash erythromycin base [Erythromycin Base] Allergy (Verified 10/03/17 11:12) Unknown levofloxacin [From Levaquin] Allergy (Verified 10/03/17 11:12) Unknown furosemide [From Lasix] Adverse Reaction (Verified 10/03/17 11:12) pancretitis hctz Adverse Reaction (Severe, Uncoded 09/27/17 11:32) Unknown Medications Amitriptyline HCl [Elavil] 100 mg PO QHS 07/30/13 [History Confirmed 09/27/17] Duloxetine Hcl [Cymbalta] 60 mg PO QHS 07/30/13 [History Confirmed 09/27/17] Estrogens, Conjugated [Premarin] 0.625 mg PO QHS 07/30/13 [History Confirmed 10/03/17] Montelukast [Singulair] 10 mg PO QHS 07/30/13 [History Confirmed 10/03/17] Spironolactone [Aldactone] 100 mg PO QHS 07/30/13 [History Confirmed 09/27/17] fentaNYL patch [Duragesic patch] 50 mcg TRANSDERM. Q72H 07/30/13 [History Confirmed 09/27/17] Albuterol Sulfate [Proventil Hfa] 6.7 gm IH PRN PRN 08/29/13 [History Confirmed 10/03/17] Multivitamins,Therapeutic [Multivitamin] 1 tab PO DAILY 08/29/13 [History Confirmed 10/03/17] Zolpidem Tartrate [Ambien] 10 mg PO QHS PRN PRN 08/29/13 [History Confirmed 09/27/17] Acetaminophen [Tylenol] 650 mg PO Q4H PRN PRN 07/31/15 [History Confirmed 10/03/17] Tizanidine HCl 4 mg PO TID 07/31/15 [History Confirmed 09/27/17] Ascorbic Acid [Vitamin C] 1,000 mg PO DAILY@0800 09/08/15 [History Confirmed 09/27/17] Ergocalciferol [Vitamin D] 50,000 unit PO TUTH 09/08/15 [History Confirmed 10/03/17] Ibuprofen [Motrin] 400 mg PO BID PRN PRN 09/08/15 [History Confirmed 10/03/17] Calcium (Elemental) [Os-Fernando 500] 500 mg PO DAILY@0800 10/20/15 [History Confirmed 10/03/17] Hydrocodone Bitart/Apap 5-325 [Diamond 5/325] 1 tab PO Q4H PRN PRN 02/22/16 [History Confirmed 09/27/17] Lipase/Protease/Amylase [Saige Matthews 24,000 Units Capsule] 48,000 units PO TIDCM 02/23/16 [History Confirmed 10/03/17] Omeprazole [Prilosec] 40 mg PO QHS 03/17/16 [History Confirmed 10/03/17] Albuterol Aerosols [Ventolin Aerosols] 2.5 mg INHALATION Q4H PRN PRN 08/03/17 [History Confirmed 09/27/17] Fluticasone 44 Mcg [Flovent (SP)] 2 puff INHALATION BID 08/31/17 [History Confirmed 10/03/17] warfarin 4 mg tablet 4 mg PO QHS #90 tab 10/03/17 [Rx Confirmed 10/03/17] Ejection fraction %: 65 to 70 PFSH Medical History Patent foramen ovale (Chronic) Deep venous thrombosis (Chronic) COPD (chronic obstructive pulmonary disease) (Chronic) Chest pain (Chronic) Surgical History H/O gastric bypass (Chronic) H/O: hysterectomy (Chronic) History of cholecystectomy (Chronic) Hx of jejunostomy (Chronic) Family History Mother , age 80 Myocardial infarction beginning age 60's, has had several MO's CAD (coronary artery disease) history of cardiac stents Father , age 65 Cancer pancreatic Grandfather Myocardial infarction Diabetes Social History Smoking Status: Never smoker alcohol intake: never substance use type: does not use caffeine: Yes Type: coffee Number of servings: 1 what type of physical activity do you participate in: walking frequency: 1-2 times per week duration: 15-30 minutes/day seatbelt use: always do you feel safe at home: Yes ROS Const Const: Negative for weakness, fatigue, fever(s) or headache(s) Eyes Eyes: Negative for blind spots, loss of peripheral vision or transient loss of vision ENT ENT: Negative for headache(s), dizziness, tinnitus or Nosebleed/epistaxis Cardio Chest Pain: No Palpitations: No Edema: None Muscle aches with walking: None Resp Respiratory: Negative for SOB with activity, SOB at rest, SOB orthopnea\SOB lying down or Cough GI GI: Negative nausea, vomiting, heartburn or vomiting blood/hematemesis : Negative for hematuria Musc Musc: Negative for muscle aches/ myalgia Neuro Neuro: Negative for weakness, headache(s), dizziness, near syncope, syncope, lightheadedness or orthostatic symptoms Javan Hematologic/Lymphatic: Negative for easy bleeding Endo Endo: Negative for fatigue Cardiology Exam Const Appearance: cooperative, no acute distress and well developed Orientation: alert, awake and oriented x3 Head Head: normocephalic and atraumatic Mouth: moist mucous membranes Eyes General: appearance normal, both eyes and all related structures Conjunctivae: conjunctivae normal Pupils: PERRL EOM: EOM intact bilaterally Neck Neck: normal visual inspection, no lymphadenopathy and no JVD Carotids: Negative bruit Neck Mass: Negative Neck mass Chest Chest inspection: normal inspection of the chest, symmetric chest movement and other (right central line) Auscultation: Bilateral: Clear to Auscultation Cardio Palpation: normal PMI Rate: regular rate Rhythm: regular rhythm Heart sounds: S1 normal and S2 normal; negative rub, gallop or murmur GI GI: normal to inspection, soft, no hepatosplenomegaly and bowel sounds present; negative tender Neuro General: alert, awake, oriented x3, CN's II-XI intact bilaterally and moves all extremities Extremities Pulses: Normal: Right Posterior Tibial Pulse, Left Posterior Tibial Pulse, Right Radial Pulse, Left Radial Pulse Lower Extremity Edema: None: Bilateral Psych Psychological: normal affect Supplemental Info Echocardiogram in 2016 demonstrated an ejection fraction of 65%. Stage I diastolic dysfunction. Saline contrast study demonstrates small right to left intra-atrial shunt probable patent foramen ovale. RVSP 20 mmHg. Similar when [...] has ever had any kind of hyper coagulated ability testing done as she has a history of autoimmune diseases and multiple DVTs along with PE. She thinks that her primary care doctor to do this. However she is hesitant to do this due to cost. For now she will remain on her Coumadin. Orders Orders: Medications Refilled: Plan Detail Additional Comments - BUBBA Holden The above patient was discussed with Dr. Cooper in Dr. Velasquez absence, he agrees with plan of care. Thank [...] 1 Year (DJN) Coding Level of Care Code Off vis,est,level [...] by Eladio Cooper MD> Cosigner Signature: Date (if applicable) Eladio Cooper MD CC: Sarah Ch MD OPERATIVE REPORT Observed: 09/05/2017 Status: F Source: [place] 9:46 AM [facility] Medical Records Department [address] [place], [place] [address] [address] Operative Report 09/05/17 0944 MR#: [id number] Acct: [id number] Name: JOSE J COBIAN Rep #: [id number] : 1955 62 From: Bubba Romero MD PCP: Sarah Ch MD Status: REG [facility] Y Location: [place] [address] Problem List (1) Lumbosacral spondylosis Status: Chronic (2) Disc disease, degenerative, lumbar or lumbosacral Status: Chronic Report of Operation Date of Procedure: 09/05/17 Pre-Operative Diagnosis: Lumbosacral spondylosis, lumbosacral degenerative disc disease, lumbar facet arthropathy Post-Operative Diagnosis: Lumbosacral spondylosis, lumbosacral degenerative disc disease, lumbar facet arthropathy Surgery/Procedure Performed:: Right-sided lumbar facet steroid injection L3, L4, L5, S1 Description of Surgical Findings:: PROCEDURE: Right-sided lumbar facet steroid injection L3, L4, L5, S1 PREOPERATIVE DIAGNOSIS: Lumbosacral spondylosis, lumbosacral degenerative disc disease, and lumbar facet arthropathy POSTOPERATIVE DIAGNOSIS: Lumbosacral spondylosis, lumbosacral degenerative disc disease, and lumbar facet arthropathy ANESTHESIA: MAC COMPLICATIONS: None BLOOD LOSS: Minimal PROCEDURE [...] L3, ending on the right S1, passing through the L4-L5 using a 22-gauge 3 1/2-inch [...] needles were then removed intact. The patient experienced no signs or [...] possible repeat of the procedure if indicated. 09/05/17 0946 <Electronically signed by Bubba Romero MD> Date Bubba Romero MD CC: Sarah Ch MD; Bubba Romero Signed PROTIME W/INR Collected: 09/05/2017 Status: F Source: [place] 8:07 AM [facility] [place] CODE TESTS RESULT OUT OF REFERENCE UNITS RANGE LAB L9200.1001 11.9-14.4 SEC High PROTIME ISTAT 14.9 Result Comment: Reference Range 11.9 - 14.4 LAB L9200.2000 Normal INR ISTAT 1.30 Result Comment: Critical Value > 3.5 Performed By: #### L9200.0000 #### [facility] Laboratory Point of Care [address] [place] [address] L/S SPINE MIN 4 Observed: 09/04/2017 Status: F Source: [place] 11:45 PM [facility] [place] [facility] Imaging Services [address] [place] [address] L/S Spine Min 4 Views MR#: [id number] Acct: [id number] Name: COBIANJOSE J Denise Rep #: [id number] : 1955 F 62 From: Bartolome Patel MD PCP: Sarah Ch MD Status: [facility] Study: L/S Spine Min 4 Views Date of Exam: 09/05/17 Exam# [id number] Ordering Dr: Bubba Romero MD PROCEDURE: Right L3 S1 lumbar facet block. DATE OF EXAMINATION: September 05, 2017. INDICATION: Female, 62 years old. Chronic low back pain. FLUOROSCOPY TIME (if supplied): (0:10) minutes/seconds Intraoperative imaging provided for right L3-S1 facet joint block. RAD/L/S Spine Min 4 Views IMPRESSION: Imaging provided for right L3-S1 facet joint block. Electronically Signed: Bartolome Patel MD at 9:02 EST Tel [phone], Service support , CC: Sarah Ch MD; Bubba Romero Bike Mechanic: Signed OPERATIVE REPORT Observed: 08/08/2017 Status: F Source: [place] 2:13 PM [facility] [place] [facility] Medical Records Department [address] [place] [address] Operative Report 08/08/17 1408 MR#: [id number] Acct: [id number] Name: JOSE J COBIAN Rep #: [id number] : 1955 62 From: Bubba Romero MD PCP: Sarah Ch MD Status: [facility] Y Location: [facility] Problem List (1) Lumbosacral radiculopathy Status: Chronic (2) Disc disease, degenerative, lumbar or lumbosacral Status: Chronic Report of Operation Date of Procedure: 08/08/17 Pre-Operative Diagnosis: Lumbosacral radiculopathy, lumbosacral degenerative disc disease, lumbosacral spinal stenosis Post-Operative Diagnosis: Lumbosacral degenerative disc disease, lumbosacral radiculopathy, lumbosacral spinal stenosis Surgery/Procedure Performed:: Right-sided lumbar transforaminal epidural steroid injection L4-5, L5-S1 Description of Surgical Findings:: PROCEDURE: Right sided lumbar transforaminal epidural steroid injection L4-5, L5-S1 PREOPERATIVE DIAGNOSIS: Lumbosacral radiculopathy, lumbosacral degenerative disc disease, lumbosacral spinal stenosis POSTOPERATIVE DIAGNOSIS: Lumbosacral radiculopathy, lumbosacral degenerative disc disease, lumbosacral spinal stenosis ANESTHESIA: MAC COMPLICATIONS: None BLOOD LOSS: Minimal PROCEDURE [...] approximately 35-degree angle, starting on the right L4, ending on the right L5, using a 22-gauge 3 1/2-inch spinal needle, the needle was advanced via the skin. The tip of the needle was maneuvered and directed towards inferior medial gutter of the transverse process at the superiormost aspect of the neuroforamen Once the tip of the needle was at the vicinity of the foramen after negative aspiration of blood with CSF and confirmation of AP as well as lateral view, a total of 6 mL of preservative-free 0.25% Marcaine with 80 mg of Depo-Medrol was injection in divided doses between those 2 levels. The needles were then removed intact. The patient experienced no signs or symptoms intrathecal, intravascular injection. The patient experienced no paraesthesia. The procedure was completed without any apparent difficult, any complication. The patient appeared to tolerate well. ASSESSMENT AND PLAN: This is a 62-year-old Female with lumbosacral radiculopathy, lumbosacral degenerative disc disease, lumbosacral spinal stenosis status post right sided lumbar transforaminal epidural steroid injection L4-5, L5-S1 the patient will continue her current medications. The patient will follow in approximately 2 weeks for possible repeat of the procedure if indicated. 08/08/17 1413 <Electronically signed by Bubba Romero MD> Date Bubba Romero MD CC: Sarah Ch MD; Bubba Romero Signed PROTIME W/INR Collected: 08/08/2017 Status: F Source: [place] 9:10 AM [facility] [place] TYPE CODE TESTS RESULT OUT OF RANGE REFERENCE UNITS LAB L9200.1001 11.9-14.4 SEC Normal PROTIME ISTAT 13.0 Result Comment: Reference Range 11.9 - 14.4 LAB L9200.2000 Normal INR ISTAT 1.10 Result Comment: Critical Value > 3.5 Performed By: #### L9200.0000 #### [facility] Laboratory Point of Care [address] [place] [address] LUMBAR SPINE 2 OR 3 Observed: 08/08/2017 Status: F Source: [place] 3:24 AM [facility] [place] [facility] Imaging Services [address] [place] [address] Lumbar Spine 2 or 3 Views MR#: [id number] Acct: [id number] Name: JOSE J COBIAN Rep #: [id number] : 1955 F 62 From: Bartolome Patel MD PCP: Sarah Ch MD Status: [facility] Study: Lumbar Spine 2 or 3 Views Date of Exam: 08/08/17 Exam# [id number] Ordering Dr: Bubba Romero MD PROCEDURE: Transforaminal block. DATE OF EXAMINATION: August 08, 2017. INDICATION: Female, 62 years old. Chronic back pain. FLUOROSCOPY TIME (if supplied): (0:21) minutes/seconds Intraoperative fluoroscopic services provided for right L4- L5 and L5-S1 transforaminal block. RAD/Lumbar Spine 2 or 3 Views IMPRESSION: Imaging provided for right L4-L5 and L5-S1 transforaminal block. Electronically Signed: Bartolome Patel MD at 11:32 EST Tel [phone], Service support , CC: Sarah Ch MD; Bubba Romero Bike Mechanic: Signed ALLERGIES ALLERGIES DATE TYPE / CODE NAME / CODE REACTION SEVERITY SOURCE 07/26/19 Drug hydroxychloroquine Rash [place] 19 Allergy/[id number] sulfate/[id number](RXN [facility] (SNOMED CT) OR) Hospital Repository 07/26/19 Drug Penicillins/[id number] Rash [place] 19 Allergy/918189141 (RXNORM) [facility] (SNOMED CT) Hospital Repository 07/26/19 Drug furosemide/[id number]( pancretitis Unknown [place] 19 Allergy/990741976 RXNORM) [facility] (SNOMED CT) Hospital Repository 07/26/19 Drug erythromycin Unknown Unknown [place] 19 Allergy/707670875 base/N891150500(RXNORM [facility] (SNOMED CT) ) Hospital Repository 07/26/19 Drug adhesive Rash Unknown [place] 19 Allergy/010095378 tape/O550292772(RXNORM [facility] (SNOMED CT) ) Hospital Repository 07/26/19 Drug levofloxacin/[id number] Unknown Unknown [place] 19 Allergy/563905629 9(RXNORM) [facility] (SNOMED CT) Hospital Repository 07/26/19 Miscellaneous hctz Unknown SV [place] 19 Allergy/794318182 [facility] (SNOMED CT) Hospital Repository ENCOUNTERS ENCOUNTERS ADMIT/DISCHARGE ACCOUNT ADMITTING ENCOUNTER LOCATION SOURCE NUMBER CLASS 07/26/2018/ [id number] Ambulatory BMSBuilding:B [place] 9 3 [place].WSA [facility] Repository 07/10/2018/ [id number] Ambulatory [place] 9 6 [facility] ing:SDCRoom: Repository AC17 06/16/2018 [id number] Ambulatory [place] [facility] ing:LAB Repository 05/22/2018 [id number] Ambulatory [place] 2 [facility] ing:MEDOUTP Repository 05/22/2018 1555 Ambulatory Building:[facility] OHIP Practices Repository 05/08/2018/ [id number] Ambulatory [place] 8 9 [facility] ing:SDCRoom: Repository AC20 04/03/2018/ [id number] Ambulatory [place] 2 [facility] ing:SDCRoom: Repository AC08 03/21/2018 [id number] Ambulatory [place] 0 [facility] ing:OPBD Repository 01/16/2018/ [id number] Ambulatory [place] 8 6 [facility] ing:SDCRoom: Repository AC02 12/16/2017 [id number] Ambulatory [place] 8 [facility] ing:MEDOUTP Repository 11/07/2017/ [id number] Ambulatory [place] 8 6 [facility] ing:SDCRoom: Repository AC17 10/03/2017/ [id number] Ambulatory BMSBuilding:B [place] 8 0 [place] Repository 09/05/2017/ [id number] Ambulatory [place] 8 6 [facility] ing:SDC Repository 08/08/2017/ [id number] Ambulatory [place] 8 3 [facility] ing:[facility] Repository PAYERS PAYERS ENCOUNTER GUARANTOR PAYER SUBSCRIBER SOURCE 07/26/2018 JOSE J Walker Primary JOSE J Walker [place] [id number] [place] YDDOB: [facility] [id number] MED[place] Repository [address]Gta: 330 Number: [phone] [id number] Date[facility] [address]ZR: 07/26/2018 Secondary NOT GIVENUNK [place] Insurance:SELF PAY [facility] Number: Effective Repository Date:2018-07-26 07/10/2018 JOSE J Walker Primary JOSE J Walker [place] [id number] Insurance[place] SNYDERDOB: [facility] [id number] [place] Repository [address]Fan: (330) Number: [phone] () [id number] Date: [place], [place] [address]VA: 07/10/2018 Secondary NOT GIVENUNK [place] Insurance:SELF PAY [facility] Number: Effective Repository Date:2018-06-22 06/16/2018 JOSE J J Primary JOSE J J [place] [id number] Insurance[place] SNYDERDOB: [facility] [id number] [place] MED[place] Repository [address]Vgq: (330) Number: [phone] () [id number] Date: [place], [place] [address]WI: 06/16/2018 Secondary NOT GIVENUNK Jose Insurance:SELF PAY [facility] Number: Effective Repository Date:2018-06-16 05/22/2018 JOSE J J Primary JOSE J J [place] [id number] Insurance[place] SNYDERDOB: Community [facility] [id number] [place] Repository [address]Mvb: (330) Number: [phone] () [id number] Date: [place], [place] [address]IF: 05/22/2018 Secondary NOT GIVENUNK Jose Insurance:SELF PAY [facility] Number: Effective Repository Date:2018-05-22 05/22/2018 JOSE J J Primary Insurance:The JOSE J J OHIP Practices SNYDERDOB: Health PLanPolicy SNYDERDOB: Repository Number: [id number] [id number] [place], [place] Date:5624-37-37Pdbq [place], [place] [address]Fie: (330) Name:O [id number] [address] [address]Wrf: () [place], [place] [phone] () [address]LY: 05/22/2018 Secondary Juan Carlos SnyderDOB: OHIP Practices Insurance:CBCA/[facility], [id number] [facility]ository [facility] Sherly P[place] [id number] Date:2005-07-[birth year] [address]Jiw: (404) [phone] () Name:JOSE SHIELDS [address]79[address]RQ: 05/08/2018 JOSE J J Primary JOSE J J [place] [id number] Insurance[place] SNYDERDOB: Community [facility] [id number] [place] MED[place] Repository [address]Wqw: (872) Number: [phone] () [id number] Date: [place], [place] [address]AB: 05/08/2018 Secondary NOT GIVENUNK [place] Insurance:SELF PAY [facility] Number: Effective Repository Date:2018-05-03 04/03/2018 JOSE J J Primary JOSE J J Jose [id number] Insurance:[place] SNYDERDOB: Community [facility] [id number] [place] Repository [address]Djk: 330) Number: [phone] () [id number] Date: [place], [place] [address]VR: 04/03/2018 Secondary NOT GIVENUNK [place] Insurance:SELF PAY [facility] Number: Effective Repository Date:2018-03-13 03/21/2018 JOSE J J Primary JOSE J J [place] [id number] Insurance[place] SNYDERDOB: Community [facility] [id number] [place] Repository [address]Esz: 330) Number: [phone] () [id number] Date: [place], [place] [address]ZL: 03/21/2018 Secondary NOT GIVENUNK [place] Insurance:SELF PAY [facility] Number: Effective Repository Date:2017-12-20 01/16/2018 JOSE J Walker Primary JOSE J Walker [place] [id number] Insurance:[place] SNYDERDOB: Community [facility] [id number] [place] Repository [address]Cdv: 330) Number: [phone] () [id number] Date: [place], [place] [address]VR: 01/16/2018 Secondary NOT GIVENUNK Jose Insurance:SELF PAY [facility] Number: Effective Repository Date:2018-01-11 12/16/2017 JOSE J J Primary JOSE J J [place] [id number] Insurance:[place] SNYDERDOB: Community [facility] [id number] [place] MED[place] Repository [address]Hbc: Number: [phone]~330 [id number] () Date: [place], [place] [address]TR: 12/16/2017 Secondary NOT GIVENUNK [place] Insurance:SELF PAY [facility] Number: Effective Repository Date:2017-12-16 11/07/2017 JOSE J J Primary JOSE J J Jose [id number] Insurance:[place] SNYDERDOB: Community [facility] [id number] [place] MED[place] Repository [address]Ffn: Number: [phone]~330 [id number] () Date: [place], [place] [address]SI: 11/07/2017 Secondary NOT GIVENUNK Jose Insurance:SELF PAY [facility] Number: Effective Repository Date:2017-11-02 10/03/2017 Juan Carlos Cobian141 Primary OJSE J J Jose [address] Insurance:[place] SNYDERDOB: [facility] CARE [id number] Hospital [address]Dqq: (330) MEDICAREPolicy Repository [phone] () Number: [id number] Date: [facility] [place] [address]HO: 10/03/2017 Secondary NOT GIVENUNK [place] Insurance:SELF PAY [facility] Number: Effective Repository Date:2017-10-03 09/05/2017 Juan Carlos Cobian141 Primary JOSE J J Jose [address] Insurance:[place] SNYDERDOB: [facility] CARE [id number] Hospital [address]Fxu: (940) MEDICAREPolicy Repository [phone] () Number: [id number] Date: [facility], [place] [address]RH: 09/05/2017 Secondary NOT GIVENUNK [place] Insurance:SELF PAY [facility] Number: Effective Repository Date:2017-08-30 08/08/2017 Juan Carlos Cobian141 Primary JOSE J J Jose [address] Insurance:[place] SNYDERDOB: [facility] CARE [id number] Hospital [address]Jrs: MEDICAREPolicy Repository [phone] Number: 2 () [id number] Date: [facility], [place] [address]LW: 08/08/2017 Secondary NOT GIVENUNK [place] Insurance:SELF PAY [facility] Number: Effective Repository Date:2017-07-08
== END ==
PROVIDERS: Family Provider Internal Medicine; PCP Internal Medicine; Referring Provider Physician Assistant Medical; Visit Provider Physician Assistant Medical
DX: I82.511 Chronic embolism and thrombosis of right femoral vein (principal)
CPT/HCPCS: 36415; 85610

== ENCOUNTER 2018-07-10 08:41 | Day surgery (SDC) | payer MEDICARE, SELFPAY ==
[2018-05-22 14:54] VITALS: BMI 35.1
[2018-07-10 09:06] LABS: Prothrombin Time Fingerstick 13.1 SEC (11.9-14.4)
[2018-07-10 09:09] VITALS: BP 129/77; PULSE 88; RESP 14; TEMP 36.2; O2SAT 100; BMI 35.7
--- NOTE | 2018-07-10 09:30 | RAD_ITS ---
PROCEDURE: Left L3-S1 radiofrequency ablation. DATE OF EXAMINATION: July 10, 2018. INDICATION: Female, 63 years old. Chronic back pain. FLUOROSCOPY TIME (if supplied): (26.7 seconds) minutes/seconds. 7 images were obtained. Intraoperative imaging was provided for left L3-S1 radiofrequency ablation. The spinal needles are seen at the appropriate levels. RAD/L/S Spine Min 4 Views IMPRESSION: Intraoperative imaging provided for left L3-S1 radiofrequency ablation. Electronically Signed: Bartolome Patel MD at 9:30 EST Tel [phone], Service support ,
[2018-07-10] MEDS: MethylPREDNISolone Acetate 80 MG/ML Vial (09:37)
[2018-07-10] MEDS: Bupivacaine 0.25% 30 ML Vial (09:37)
[2018-07-10 10:00] VITALS: BP 127/73; BP 129/77; PULSE 77; RESP 14; TEMP 36.8; O2SAT 97
--- NOTE | 2018-07-10 10:02 | PCM.OPRPT ---
Problem List (1) Disc disease, degenerative, lumbar or lumbosacral Status: Chronic (2) Lumbosacral spondylosis Status: Chronic Report of Operation Date of Procedure: 07/10/18 Pre-Operative Diagnosis: Lumbosacral spondylosis, lumbosacral degenerative disc disease, lumbar facet arthropathy Post-Operative Diagnosis: Lumbosacral spondylosis, lumbosacral degenerative disc disease, lumbar facet arthropathy Surgery/Procedure Performed:: Left-sided lumbar radiofrequency ablation of the medial branch at L3, L4, L5, S1 Description of Surgical Findings:: PROCEDURE: Left-sided radiofrequency ablation of the medial branch L3, L4, L5, S1 PREOPERATIVE DIAGNOSES: Lumbosacral spondylosis, lumbosacral degenerative disc disease, lumbar facet arthropathy POSTOPERATIVE DIAGNOSES: Lumbosacral spondylosis, lumbosacral degenerative disc disease, lumbar facet arthropathy ANESTHESIA: MAC COMPLICATIONS: None BLOOD LOSS: Minimal PROCEDURE IN DETAIL: History and physical today was reviewed. Risks and benefits of procedure explained. The patient understood, agreed to the procedure and informed consent was obtained. IV inserted per routine protocol. The patient was taken to the operating room, placed in the prone position with a pillow positioned underneath the abdomen. The left side of the lower back was prepped and draped in a sterile fashion using iodine x 3. Under fluoroscopy guidance, on an oblique view, the L3 through S1 vertebral bodies were visualized. The skin and subcutaneous tissue was anesthetized with approximately 10 mL of 1% lidocaine using a 25-gauge regular needle. Under direct visualization with fluoroscopy at approximately 25-degree angle, starting on the left L3, ending on the left S1 passing through the L4-L5 using a 20-gauge 15 cm with a 10 mm curved active tip radiofrequency ablation needle the needle passed through the skin. The tip of the needle was maneuvered and directed towards the superior and medial gutter of the transverse process at the vicinity of the medial branch. Once the tip of the needle was in contact with the bone, the needle pulled approximately 2 mm up the bone. The stylet of each needle was then removed. After negative aspiration of blood with CSF and confirmation of AP as well as oblique view, radiofrequency ablation probe was then inserted at each level. Impedance was then recorded at L3 to be 217, at L4 219, at L5 229, at S1 260 ohm. Motor-evoked potential was then initiated to 1.5 volt without any motor response at each corresponding level. The probe was then removed intact and a total of 6 mL preservative-free 1% lidocaine was injected in divided doses between those 4 levels after negative aspiration of blood with CSF. The radiofrequency ablation probe was then reinserted after confirmation of AP, oblique as well as lateral view. Radiofrequency ablation was then initiated to 80 degrees Celsius for 90 seconds at each level. Once concluded, the probe was then removed intact and a total of 6 mL of preservative-free 0.25% Marcaine with 40 mg Depo-Medrol was injected in divided doses between those 4 levels. The needles were then removed intact. The patient experienced no signs or symptoms of intrathecal, intravascular injection. The patient experienced no paraesthesia. The procedure was completed without any apparent difficulty, any complication. The patient appeared to tolerate well. Sensory as well as motor exam was unchanged from prior to procedure. ASSESSMENT AND PLAN: This is a 63-year-old Female with lumbosacral spondylosis, lumbosacral degenerative disc disease, lumbar facet arthropathy, status post left-sided radiofrequency ablation of the medial branch L3 through S1. The patient will continue her current medications. The patient will follow up in approximately 2 weeks for reevaluation.
[2018-07-10 10:05] VITALS: BP 129/77; BP 133/67; PULSE 80; RESP 14; O2SAT 98
[2018-07-10 10:11] VITALS: BP 129/77; BP 130/73; PULSE 78; RESP 14; O2SAT 100
[2018-07-10 10:15] VITALS: BP 126/66; BP 129/77; PULSE 77; RESP 14; TEMP 37; O2SAT 96
[2018-07-10 10:38] VITALS: BP 129/77
== END 2018-07-10 10:47 | disposition home or self-care (01) ==
LOC: SDC 08:43 → AC 08:43
PROVIDERS: Family Provider Internal Medicine; PCP Internal Medicine; Referring Provider Anesthesiology Pain Medicine; Visit Provider Anesthesiology Pain Medicine
PROC: (CPT 64635; principal; 2018-07-10 09:20)
DX: M47.897 Other spondylosis, lumbosacral region (principal); M51.37 Other intervertebral disc degeneration, lumbosacral region; M46.86 Other specified inflammatory spondylopathies, lumbar region; F32.9 Major depressive disorder, single episode, unspecified; G25.81 Restless legs syndrome; Z86.718 Personal history of other venous thrombosis and embolism; Z86.711 Personal history of pulmonary embolism; Z86.19 Personal history of other infectious and parasitic diseases; Z79.899 Other long term (current) drug therapy; J45.909 Unspecified asthma, uncomplicated
CPT/HCPCS: 64635; 64636 ×3; 36416; 72110; 76000; 85610; J7120; A4216

== ENCOUNTER → 2018-09-05 12:32 | Outpatient (CLI) | payer MEDICARE, SELFPAY ==
[2018-07-26 14:05] VITALS: BMI 35.7
[2018-09-05 13:37] LABS: ALB/GLOB Ratio 1.3 RATIO (0.9-2.4); AST(SGOT) 20 U/L (15-37); Alanine Aminotransfer ALT/SGPT 26 U/L (13-56); Albumin, Serum 3.9 g/dL (3.2-5.0); Alkaline Phosphatase 85 U/L (45-117); Amylase 65 U/L (25-115); Anion Gap 7 (5-15); BUN 15 mg/dL (7-18); BUN/Creat Ratio 19.7 RATIO (10-20); Calcium,Total 8.8 mg/dL (8.5-10.1); Chloride 103 mmol/L (98-107); Creatinine, Serum 0.76 mg/dL (0.55-1.02); EST Glomerular Filtration Rate 82 mL/min (>60); Est Glom Filt Rate - Afr Amer 99 mL/min (>60); Ferritin 63 ng/mL (8-252); Glucose 103 mg/dL (74-106); Lipase 283 U/L (73-393); Potassium 4.4 mmol/L (3.5-5.1); Protein, Total 6.9 g/dL (6.4-8.2); Sodium Level 140 mmol/L (136-145)
[2018-09-06 16:08] LABS: CHOLESTEROL TOTAL 196 mg/dL (100-199); HDL-C 77 mg/dL (>39); HDL-P TOTAL 41.8 umol/L (>=30.5); SMALL LDL-P <90 nmol/L (<=527); TRIGLYCERIDES 119 mg/dL (0-149)
[2018-09-06 20:11] LABS: INSULIN RESISTANCE SCORE 29 (<=45); LDL SIZE 21.6 nm (>20.5); LDL-C 95 mg/dL (0-99); LDL-P 839 nmol/L (<1000)
== END ==
PROVIDERS: Family Provider Internal Medicine; PCP Internal Medicine; Visit Provider Internal Medicine
DX: D50.8 Other iron deficiency anemias (principal); N39.41 Urge incontinence; E78.5 Hyperlipidemia, unspecified; K86.1 Other chronic pancreatitis
CPT/HCPCS: 36591; 80053; 80061; 82150; 82728; 83690; 83704; 87086; 87088; A4216

== ENCOUNTER → 2018-11-01 | Outpatient (CLI) | payer MEDICARE, SELFPAY ==
[2018-10-09 13:44] VITALS: BMI 36.7
--- NOTE | 2018-11-01 12:57 | ECHOD_ITS ---
Reason For Study: PFO Procedure This was a 2D Doppler, Color Flow transthoracic echocardiogram. Exam performed in department. Left Ventricle Normal size and thickness. The estimated ejection fraction is 65 %. Stage 1 diastolic dysfunction. No regional wall motion abnormalities noted. Right Ventricle Normal size and thickness. Normal systolic function. Atria Normal left atrium. Normal right atrium. Normal atrial septum. Mitral Valve The mitral valve is structurally normal. No prolapse or stenosis seen. Tricuspid Valve Normal tricuspid valve. Trivial tricuspid valve insufficiency. Right ventricular systolic pressure estimated to be 28 mmHg. Aortic Valve Normal aortic valve. Trisinus/trileaflet aortic valve. Pulmonic Valve Normal pulmonic valve. Great Vessels Normal aortic root. Normal arch. Normal inferior vena cava. Inferior vena cava collapse with sniff. Pericardium/Pleural No pericardial effusion. MMode/2D Measurements & Calculations LVIDd: 3.9 cm IVSd: 0.75 cm Ao root diam: 2.8 cm LVIDs: 2.6 cm LVPWd: 0.70 cm RVDd: 3.1 cm FS: 33.9 % LAV(MOD-bp): 43.4 ml EDV(MOD-sp4): 73.5 ml SV(MOD-sp4): 44.9 ml LAV(MOD-bp) Indexed: 25.2 ml/m2 ESV(MOD-sp4): 28.6 ml LAV(MOD-sp2): 46.7 ml EF(MOD-sp4): 61.1 % LAV(MOD-sp4): 39.1 ml LA dimension(2D): 3.5 cm LA A4 area: 15.9 cm2 RA A4 area: 13.2 cm2 Time Measurements MV dec time: 0.20 sec Doppler Measurements & Calculations MV E max tony: 93.9 cm/sec Lat Peak E' Tony: 10.8 cm/sec Med Peak E' Tony: 9.7 cm/sec MV A max tony: 103.6 cm/sec E/E' lat: 8.7 E/E' med: 9.7 MV E/A: 0.91 Ao V2 max: 146.5 cm/sec LV V1 max: 130.6 cm/sec PA V2 max: 113.7 cm/sec Ao max P.6 mmHg LV V1 max P.8 mmHg TR max tony: 239.9 cm/sec TR max P.0 mmHg Interpretation Summary The estimated ejection fraction is 65 %. Stage 1 diastolic dysfunction. Trivial tricuspid valve insufficiency. Right ventricular systolic pressure estimated to be 28 mmHg. Compared to echo report dated 04/01/2016, no appreciable changes noted. Ordering Physician: Antonino Velasquez Referring Physician: BRAIN PIZANO Performed By: Martha Marques RDCS
== END | disposition home or self-care (01) ==
LOC: CVS 12:56
PROVIDERS: Family Provider Internal Medicine; PCP Internal Medicine; Referring Provider Internal Medicine Cardiovascular Disease; Visit Provider Internal Medicine Cardiovascular Disease
DX: Q21.1 Atrial septal defect (principal)
CPT/HCPCS: 93306

== ENCOUNTER → 2018-11-08 | Outpatient (CLI) | payer MEDICARE, SELFPAY ==
[2018-10-09 13:44] VITALS: BMI 36.7
--- NOTE | 2018-11-08 12:09 | STE_ITS ---
Reason For Study: DYSPNEA/SOB Stress Results Protocol: RENUKA Maximum Predicted HR: 158 bpm Target HR: 134 bpm % Maximum Predicted HR: 91 % Heart Stage Duration Rate BP Comment (mm:ss) (bpm) BASELINE 78 142/80 STAGE 1 3:00 118 162/78 INCREASED SOB WITH SLIGHT DIZZINESS AND LIGHTHEADED TOWARDS END OF STAGE 2 3:00 144 182/80STAGE RECOVERY 94 144/80ACHING IN CHEST AFTER STEPPING OFF TREADMILL AND ACHINESS RESOLVED Stress Duration: 6:00 mm:ss Maximum Stress HR: 144 bpm Baseline Echocardiogram Findings The estimated ejection fraction is 65 %. Stress Echo Wall motion Data Resting WM Intermediate WM Stress WM Resting Wall Motion Wall Motion Stress No regional wall motion No regional wall motion abnormalities noted. abnormalities noted. EKG Data The baseline ECG displays normal sinus rhythm. The patient exercised according to the regular Renuka protocol for a total duration of 6:00. The maximum heart rate attained was 144 beats per minute. This was 91% of maximum predicted heart rate. The patient exercised into stage 3 of the Renuka protocol. During stress, there were no ST or T wave changes noted to suggest ischemia. No clinical angina was noted. Interpretation Summary The estimated ejection fraction is 65 %. Normal, adequate, treadmill echocardiogram. Negative for ischemia by EKG and echocardiographic criteria. No anginal symptoms noted. Rare PVC noted. Appropriate blood pressure response to exercise. Below average exercise capacity for age. Final LVEF is 75%. Test terminated due to the attainment of target heart rate and dyspnea. No complications. Ordering Physician: Antoinno Velasquez Referring Physician: Antonino Velasquez Performed By: Tanika Magdaleno RDCS, RVT
== END | disposition home or self-care (01) ==
LOC: CVS 12:08
PROVIDERS: Family Provider Internal Medicine; PCP Internal Medicine; Referring Provider Internal Medicine Cardiovascular Disease; Visit Provider Internal Medicine Cardiovascular Disease
DX: R06.02 Shortness of breath (principal); I82.409 Acute embolism and thrombosis of unspecified deep veins of unspecified lower extremity; J44.9 Chronic obstructive pulmonary disease, unspecified; Q21.1 Atrial septal defect; Z79.01 Long term (current) use of anticoagulants
CPT/HCPCS: 93017; 93350

== ENCOUNTER 2018-12-04 07:51 | Day surgery (SDC) | payer MEDICARE, SELFPAY ==
[2018-10-09 13:44] VITALS: BMI 36.7
[2018-12-04 08:54] VITALS: BP 138/71; PULSE 79; RESP 16; TEMP 36.8; O2SAT 96; BMI 35.2
[2018-12-04 08:55] LABS: Prothrombin Time Fingerstick 12.8 SEC (11.9-14.4)
--- NOTE | 2018-12-04 10:16 | RAD_ITS ---
PROCEDURE: Right radiofrequency ablation. DATE OF EXAMINATION: December 04, 2018. INDICATION: Female, 63 years old. Chronic low back pain. FLUOROSCOPY TIME (if supplied): (1:04) minutes/seconds. 10 coned-down images were obtained. Intraoperative imaging provided for right L3-S1 radiofrequency ablation. RAD/L/S Spine Min 4 Views IMPRESSION: Imaging provided for right-sided L3-S1 radiofrequency ablations. Electronically Signed: Bartolome Patel, at 14:13 EDT , Service support ,
[2018-12-04] MEDS: Bupivacaine 0.25% 30 ML Vial (10:20)
[2018-12-04] MEDS: MethylPREDNISolone Acetate 80 MG/ML Vial (10:20)
[2018-12-04 10:40] VITALS: BP 138/71; BP 99/47; PULSE 71; RESP 16; TEMP 36.4; O2SAT 100
[2018-12-04 10:45] VITALS: BP 138/71; BP 95/70; PULSE 72; RESP 16; O2SAT 98
[2018-12-04 10:50] VITALS: BP 109/87; BP 138/71; PULSE 73; RESP 16; O2SAT 97
[2018-12-04 10:55] VITALS: BP 122/65; BP 138/71; PULSE 74; RESP 16; TEMP 36.3; O2SAT 97
[2018-12-04 11:19] VITALS: BP 138/71
--- NOTE | 2018-12-04 11:38 | PCM.OPRPT ---
Problem List (1) Disc disease, degenerative, lumbar or lumbosacral Status: Chronic (2) Lumbosacral spondylosis Status: Chronic Report of Operation Date of Procedure: 12/04/18 Pre-Operative Diagnosis: Lumbosacral spondylosis, lumbosacral degenerative disc disease, lumbar facet arthropathy Post-Operative Diagnosis: Lumbosacral spondylosis, lumbosacral degenerative disc disease, lumbar facet arthropathy Surgery/Procedure Performed:: Right sided lumbar radiofrequency ablation of the medial branch at L3-L4 L5-S1 Description of Surgical Findings:: PROCEDURE: Right-sided radiofrequency ablation of the medial branch L3, L4, L5, S1 PREOPERATIVE DIAGNOSES: Lumbosacral spondylosis, lumbosacral generative disc disease, lumbar facet arthropathy POSTOPERATIVE DIAGNOSES: Lumbosacral spondylosis, lumbosacral degenerative disc disease, lumbar facet arthropathy ANESTHESIA: MAC COMPLICATIONS: None BLOOD LOSS: Minimal PROCEDURE IN DETAIL: History and physical today was reviewed. Risks and benefits of procedure explained. The patient understood, agreed to the procedure and informed consent was obtained. IV inserted per routine protocol. The patient was taken to the operating room, placed in the prone position with a pillow positioned underneath the abdomen. The right side of the lower back was prepped and draped in a sterile fashion using iodine x 3. Under fluoroscopy guidance, on an oblique view, the L3 through S1 vertebral bodies were visualized. The skin and subcutaneous tissue was anesthetized with approximately 10 mL of 1% lidocaine using a 25-gauge regular needle. Under direct visualization with fluoroscopy at approximately 25-degree angle, starting on the right L3, ending on the right S1 passing through the L4-L5 using a 20-gauge 15 cm with a 10 mm curved active tip radiofrequency ablation needle the needle passed through the skin. The tip of the needle was maneuvered and directed towards the superior and medial gutter of the transverse process at the vicinity of the medial branch. Once the tip of the needle was in contact with the bone, the needle pulled approximately 2 mm up the bone. The stylet of each needle was then removed. After negative aspiration of blood with CSF and confirmation of AP as well as oblique view, radiofrequency ablation probe was then inserted at each level. Impedance was then recorded at L3 to be 288, at L4 210, at L5 217, at S1 293 ohm. Motor-evoked potential was then initiated to 1.5 volt without any motor response at each corresponding level. The probe was then removed intact and a total of 6 mL preservative-free 1% lidocaine was injected in divided doses between those 4 levels after negative aspiration of blood with CSF. The radiofrequency ablation probe was then reinserted after confirmation of AP, oblique as well as lateral view. Radiofrequency ablation was then initiated to 80 degrees Celsius for 90 seconds at each level. Once concluded, the probe was then removed intact and a total of 6 mL of preservative-free 0.25% Marcaine with 40 mg Depo-Medrol was injected in divided doses between those 4 levels. The needles were then removed intact. The patient experienced no signs or symptoms of intrathecal, intravascular injection. The patient experienced no paraesthesia. The procedure was completed without any apparent difficulty, any complication. The patient appeared to tolerate well. Sensory as well as motor exam was unchanged from prior to procedure. ASSESSMENT AND PLAN: This is a 63-year-old Female with lumbosacral spondylosis, lumbosacral degenerative disc disease, lumbar facet arthropathy, status post right-sided radiofrequency ablation of the medial branch L3 through S1. The patient will continue her current medications. The patient will follow up in approximately 2 weeks for reevaluation.
== END 2018-12-04 11:20 | disposition home or self-care (01) ==
LOC: SDC 07:51 → AC 09:22
PROVIDERS: Family Provider Internal Medicine; PCP Internal Medicine; Referring Provider Anesthesiology Pain Medicine; Visit Provider Anesthesiology Pain Medicine
PROC: (CPT 64635; principal; 2018-12-04 09:35)
DX: M51.36 Other intervertebral disc degeneration, lumbar region (principal); M47.817 Spondylosis without myelopathy or radiculopathy, lumbosacral region; Z86.711 Personal history of pulmonary embolism; Z86.718 Personal history of other venous thrombosis and embolism; F32.9 Major depressive disorder, single episode, unspecified; Z86.19 Personal history of other infectious and parasitic diseases; Z79.899 Other long term (current) drug therapy; J45.909 Unspecified asthma, uncomplicated; M79.7 Fibromyalgia; E11.9 Type 2 diabetes mellitus without complications; Z79.891 Long term (current) use of opiate analgesic
CPT/HCPCS: 64635; 64636 ×3; 36416; 72110; 76000; 85610; J7120; A4216

== ENCOUNTER 2019-02-05 08:55 | Day surgery (SDC) | payer MEDICARE, SELFPAY ==
[2019-02-05] VITALS (7 sets, daily range): BP systolic 102–130; BP diastolic 65–89; PULSE 61–73; RESP 16–18; TEMP 36.1–36.4; O2SAT 98–100; BMI 34.8
--- NOTE | 2019-02-05 09:40 | RAD_ITS ---
STUDY: X-RAY - THORACIC SPINE REASON FOR EXAM: Female, 63 years old. T4-T7 facet injection. TECHNIQUE: 5 fluoroscopic view(s) of the thoracic spine were obtained. COMPARISON: 08/09/2016 FINDINGS: Fluoroscopic guidance was provided during T4-T7 facet injections. Correlation with the procedure report is recommended. RAD/Thoracic Spine 3 Views IMPRESSION: As above. Electronically Signed: Feliberto Briggs, at 18:01 EDT Tel , Service support ,
[2019-02-05] MEDS: MethylPREDNISolone Acetate 80 MG/ML Vial (09:58)
[2019-02-05] MEDS: Bupivacaine 0.25% 30 ML Vial (09:58)
--- NOTE | 2019-02-05 17:18 | OP.PCM_ITS ---
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 (2) Degeneration of intervertebral disc of thoracic region Status: Chronic Report of Operation Date of Procedure: 02/05/19 Pre-Operative Diagnosis: Thoracic spondylosis, thoracic degenerative disc disease, thoracic facet arthropathy Post-Operative Diagnosis: Thoracic spondylosis, thoracic degenerative disc disease, thoracic facet arthropathy Surgery/Procedure Performed:: Right-sided thoracic facet steroid injection T4, T5, T6, T7 Description of Surgical Findings:: PROCEDURE: Right sided thoracic facet steroid injection T4, T5, T6, T7 PREOPERATIVE DIAGNOSIS: Thoracic spondylosis, thoracic degenerative disc disease, thoracic facet arthropathy POSTOPERATIVE DIAGNOSIS: Thoracic spondylosis, thoracic degenerative disc disease, thoracic facet arthropathy ANESTHESIA: MAC COMPLICATIONS: None BLOOD LOSS: Minimal PROCEDURE IN DETAIL: History and physical today was reviewed. Risks and benefits of the procedure were explained. The patient understood, agreed to our procedure, and informed consent was obtained. IV inserted per routine protocol. The patient was taken to the operating room, placed in a prone position with a pillow positioned underneath the abdomen. The right side of the upper back was prepped and draped in a sterile fashion using iodine x3. Under fluoroscopy guidance, on AP view, T4 throughT7 vertebral bodies were visualized. Skin and subcutaneous tissues were anesthetized with approximately 5 mL of 1% lidocaine using a 25-gauge regular needle. Under direct visualization with fluoroscopy at approximately 15-degree angle, starting on the right T4, ending on the right T7 , passing through the T5 and T6 using a 25 gauge 3 1/2-inch spinal needle, the needle was advanced via the skin. The tip of the needle was maneuvered and directed towards the epiphyseal junction of each corresponding vertebra once the tip of the needle was at the vicinity of the medial branch. Once the tip of the needle was in contact with the bone, the needle pulled approximately 2 mm off the bone. After negative aspiration of blood with CSF and confirmation of AP as well as oblique view, a total of 6 mL of preservative-free 0.25% Marcaine with 80 mg of Depo- Medrol was injection in divided doses between those 4 levels. The needles were then removed intact. The patient experienced no signs or symptoms intrathecal, intravascular injection. The patient experienced no paraesthesia. The procedure was completed without any apparent difficult, any complication. The patient appeared to tolerate well. ASSESSMENT AND PLAN: This is a 63-year-old female with Thoracic spondylosis, thoracic degenerative disc disease, thoracic facet arthropathy, status post right-sided thoracic facet steroid injection T4-T7. The patient will continue her current medications. The patient will follow in approximately 2 weeks for reevaluation.
[2019-02-06 16:04] LABS: Prothrombin Time Fingerstick < 8.0 SEC (11.9-14.4)
== END 2019-02-05 10:52 | disposition home or self-care (01) ==
LOC: SDC 08:55 → AC 08:57
PROVIDERS: Family Provider Internal Medicine; PCP Internal Medicine; Referring Provider Anesthesiology Pain Medicine; Visit Provider Anesthesiology Pain Medicine
PROC: 3E0R3BZ Introduction of Anesthetic Agent into Spinal Canal, Percutaneous Approach (ICD-10-PCS; CPT 62281; principal; 2019-02-05 09:35)
DX: M47.814 Spondylosis without myelopathy or radiculopathy, thoracic region (principal); M51.34 Other intervertebral disc degeneration, thoracic region; M46.94 Unspecified inflammatory spondylopathy, thoracic region; M47.22 Other spondylosis with radiculopathy, cervical region; M47.27 Other spondylosis with radiculopathy, lumbosacral region; M46.96 Unspecified inflammatory spondylopathy, lumbar region; M51.17 Intervertebral disc disorders with radiculopathy, lumbosacral region; M50.10 Cervical disc disorder with radiculopathy, unspecified cervical region; K44.9 Diaphragmatic hernia without obstruction or gangrene; K21.9 Gastro-esophageal reflux disease without esophagitis; J45.909 Unspecified asthma, uncomplicated; E11.9 Type 2 diabetes mellitus without complications; M79.7 Fibromyalgia; M13.0 Polyarthritis, unspecified; E22.2 Syndrome of inappropriate secretion of antidiuretic hormone; I44.7 Left bundle-branch block, unspecified; F32.9 Major depressive disorder, single episode, unspecified; Z86.19 Personal history of other infectious and parasitic diseases; Z87.19 Personal history of other diseases of the digestive system; Z86.2 Personal history of diseases of the blood and blood-forming organs and certain disorders involving the immune mechanism; Z86.711 Personal history of pulmonary embolism; Z86.718 Personal history of other venous thrombosis and embolism; Z78.0 Asymptomatic menopausal state; Z79.01 Long term (current) use of anticoagulants; Z79.899 Other long term (current) drug therapy; Z79.891 Long term (current) use of opiate analgesic
CPT/HCPCS: 64490; 64491; 64492; 36416; 72072; 85610; J7120; A4216

== ENCOUNTER 2019-03-19 11:04 | Day surgery (SDC) | payer MEDICARE, SELFPAY ==
[2019-02-05 09:19] VITALS: BMI 34.8
[2019-03-19 12:12] VITALS: BP 144/78; PULSE 73; RESP 18; TEMP 36.6; O2SAT 98; BMI 35.3
--- NOTE | 2019-03-19 12:20 | RAD_ITS ---
PROCEDURE: Caudal block. DATE OF EXAMINATION: March 19, 2019. INDICATION: Female, 64 years old. Chronic low back pain. FLUOROSCOPY TIME (if supplied): (0:05) minutes/seconds Intraoperative image provided for caudal block. RAD/Fluor Guidance for Spine Inj IMPRESSION: Intraoperative imaging provided for caudal block. Electronically Signed: Bartolome Patel, at 15:53 EDT , Service support ,
[2019-03-19] MEDS: Lactated Ringers 1,000 ML 100 ML IV (12:30)
[2019-03-19] MEDS: MethylPREDNISolone Acetate 80 MG/ML Vial (12:42)
[2019-03-19] MEDS: Bupivacaine 0.25% 30 ML Vial (12:42)
[2019-03-19 12:48] VITALS: BP 130/73; BP 144/78; PULSE 69; RESP 18; TEMP 37.2; O2SAT 100
[2019-03-19 12:50] VITALS: BP 130/74; BP 144/78; PULSE 67; RESP 16; O2SAT 98
[2019-03-19 12:55] VITALS: BP 128/79; BP 144/78; PULSE 70; RESP 16; O2SAT 100
--- NOTE | 2019-03-19 12:55 | PCM.OPRPT ---
Problem List (1) Disc disease, degenerative, lumbar or lumbosacral Status: Chronic (2) Lumbosacral radiculopathy Status: Chronic Report of Operation Date of Procedure: 03/19/19 Description of Surgical Findings:: PROCEDURE: Diagnostic/therapeutic caudal epidural steroid injection PREOPERATIVE DIAGNOSIS: Lumbosacral radiculopathy, lumbosacral degenerative disc disease, lumbosacral spinal stenosis POSTOPERATIVE DIAGNOSIS: Lumbosacral radiculopathy, lumbosacral degenerative disc disease, lumbosacral spinal stenosis ANESTHESIA: MAC COMPLICATIONS: None BLOOD LOSS: Minimal PROCEDURE IN DETAIL: History and physical today was reviewed. Risks and benefits of the procedure were explained. The patient understood, agreed to our procedure, and informed consent was obtained. IV inserted per routine protocol. The patient was taken to the operating room, placed in a prone position with a pillow positioned underneath the abdomen. The lower back area was prepped and draped in a sterile fashion using iodine x3 under fluoroscopy guidance on the lateral view the caudal space was identified the skin and subcutaneous tissue and size approximately 3 cc of 1% lidocaine using a 25-gauge regular needle under direct visualization fluoroscopy using a 22-gauge 3-1/2 inch spinal needle the needle was advanced via the skin through the sacral hiatus tip of the needle passed through the sacrococcygeal ligament advanced approximately S4 area after negative aspiration for blood or CSF a total of 3 cc of contrast were injected to confirm correct placement of the needle as well as cephalad spread the spread was followed to approximately L5 area after negative aspiration for blood or CSF and confirmation AP as well as lateral view a total of 15 cc of preservative-free 0.125% Marcaine with 80 mg of Depo-Medrol were injected easily. The needles were then removed intact. The patient experienced no signs or symptoms intrathecal, intravascular injection. The patient experienced no paraesthesia. The procedure was completed without any apparent difficult, any complication. The patient appeared to tolerate well. ASSESSMENT AND PLAN: This is a 64-year-old female with lumbosacral radiculopathy, lumbosacral degenerative disc disease, lumbosacral spinal stenosis status post diagnostic/therapeutic caudal epidural steroid injection. The patient will continue her current medications. The patient will follow in approximately 2 weeks for reevaluation.
[2019-03-19 12:58] VITALS: BP 123/74; BP 144/78; PULSE 67; RESP 16; TEMP 37.1; O2SAT 100
[2019-03-19 13:29] VITALS: BP 144/78
== END 2019-03-19 13:31 | disposition home or self-care (01) ==
LOC: SDC 11:05 → AC 11:48
PROVIDERS: Family Provider Internal Medicine; PCP Internal Medicine; Referring Provider Anesthesiology Pain Medicine; Visit Provider Anesthesiology Pain Medicine
PROC: 3E0S3BZ Introduction of Anesthetic Agent into Epidural Space, Percutaneous Approach (ICD-10-PCS; CPT 62282; principal; 2019-03-19 12:15)
DX: M47.27 Other spondylosis with radiculopathy, lumbosacral region (principal); M51.17 Intervertebral disc disorders with radiculopathy, lumbosacral region; M48.07 Spinal stenosis, lumbosacral region; M46.96 Unspecified inflammatory spondylopathy, lumbar region; M47.814 Spondylosis without myelopathy or radiculopathy, thoracic region; M51.34 Other intervertebral disc degeneration, thoracic region; M50.10 Cervical disc disorder with radiculopathy, unspecified cervical region; M47.22 Other spondylosis with radiculopathy, cervical region; M46.92 Unspecified inflammatory spondylopathy, cervical region; J45.909 Unspecified asthma, uncomplicated; E11.9 Type 2 diabetes mellitus without complications; M79.7 Fibromyalgia; M13.0 Polyarthritis, unspecified; E22.2 Syndrome of inappropriate secretion of antidiuretic hormone; I44.7 Left bundle-branch block, unspecified; K44.9 Diaphragmatic hernia without obstruction or gangrene; K21.9 Gastro-esophageal reflux disease without esophagitis; F32.9 Major depressive disorder, single episode, unspecified; Z78.0 Asymptomatic menopausal state; Z87.19 Personal history of other diseases of the digestive system; Z86.2 Personal history of diseases of the blood and blood-forming organs and certain disorders involving the immune mechanism; Z86.718 Personal history of other venous thrombosis and embolism; Z86.711 Personal history of pulmonary embolism; Z79.01 Long term (current) use of anticoagulants; Z79.891 Long term (current) use of opiate analgesic; Z79.899 Other long term (current) drug therapy
CPT/HCPCS: 62323; 36416; 64483; 77003; 85610; J7120; A4216; J3490

== ENCOUNTER → 2019-05-02 12:32 | Outpatient (CLI) | payer MEDICARE, SELFPAY ==
--- NOTE | 2019-05-02 12:34 | MRI_ITS ---
STUDY: MRI LUMBAR SPINE WITHOUT CONTRAST REASON FOR EXAM: Female, 64 years old. radiculopathy -- pain low back and bilat legs rt and amp;gt; lt, no lumbar surgery, has had pain injections. TECHNIQUE: Standardized fat and water weighted pulse sequences were obtained in the sagittal and axial planes. COMPARISON: X-ray dated December 08, 2018 FINDINGS: Normal lumbar lordosis. There is no substantial scoliosis. Normal conus medullaris that terminates at the L1 L1-2: There is minimal disc space narrowing and endplate spondylosis. There is no significant disc herniation, central canal or foraminal stenosis. Mild facet hypertrophy L2-3: There is severe disc space narrowing and endplates spondylosis and endplate edema. Mild disc bulge and hypertrophic facets. At the without significant central canal stenosis. There is moderate right and minimal left foraminal stenosis L3-4: There is moderate disc space narrowing and endplates spondylosis and endplate edema. There is mild disc bulge and facet arthropathy without significant central canal. There is mild right and mild left foraminal stenosis. L4-5: There is mild disc space narrowing and endplates spondylosis. There is a minimal disc bulge and severe facet adenopathy without significant central canal or foraminal stenosis. There is minimal grade 1 anterolisthesis. L5-S1: There is mild disc space narrowing and endplates spondylosis. There is mild disc bulge and moderate facet arthropathy without significant central canal or foraminal stenosis Normal visualized sacral ala. MRI/Spine Lumbar (Routine) IMPRESSION: L2/L3: Moderate right foraminal stenosis. Multilevel degenerative changes. Electronically Signed: Robin Desai MD at 12:56 EDT Tel , Service support ,
== END ==
PROVIDERS: Family Provider Internal Medicine; PCP Internal Medicine; Referring Provider Anesthesiology Pain Medicine; Visit Provider Anesthesiology Pain Medicine
DX: M46.96 Unspecified inflammatory spondylopathy, lumbar region (principal); M47.27 Other spondylosis with radiculopathy, lumbosacral region; M51.17 Intervertebral disc disorders with radiculopathy, lumbosacral region
CPT/HCPCS: 72148

== ENCOUNTER → 2019-05-09 14:50 | Outpatient (CLI) | payer MEDICARE, SELFPAY ==
--- NOTE | 2019-05-09 14:52 | BI_ITS ---
MAMMOGRAPHY - BILATERAL SCREENING REASON FOR EXAM: Female, 64 years old. Routine annual screening examination. PERTINENT HISTORY: Aunt with breast cancer. TECHNIQUE: Digital bilateral breast bret (3D mammographic acquisition) in the CC and MLO projections. 2-D mediolateral oblique (MLO) and craniocaudad (CC) views of both breasts were obtained. CAD: Full Field Digital Mammography with Computer Added Detection was performed. COMPARISON: Comparison is made with prior examination of March 21, 2018 and March 16, 2016. FINDINGS: Breast Composition: The breasts are heterogeneously dense, which may obscure small masses. There are no dominant masses or suspicious calcifications. Stable benign-appearing bilateral axillary lymph nodes. A port is seen in the right axillary region. No other significant abnormalities are identified. There has been no significant change since the prior study. BI/SCREENING MAMM (CAD), BILAT IMPRESSION: Stable bilateral screening mammogram. Yearly follow-up mammogram recommended. (A) ASSESSMENT CATEGORY: BIRADS Category 2: Benign. A letter regarding these results will be sent to the patient by the facility within 30 days. Approximately 10% of breast cancers are not detected by mammography. A normal mammogram should not delay biopsy of a clinically suspicious abnormality. [id number] Electronically Signed: Bartolome Patel, at 15:42 EST , Service support ,
== END ==
PROVIDERS: Family Provider Internal Medicine; PCP Internal Medicine; Referring Provider Internal Medicine; Visit Provider Internal Medicine
DX: Z12.31 Encounter for screening mammogram for malignant neoplasm of breast (principal)
CPT/HCPCS: 77067

== ENCOUNTER → 2019-05-22 13:53 | Outpatient (CLI) | payer MEDICARE, SELFPAY ==
[2019-05-14 13:49] VITALS: BMI 34.5
--- NOTE | 2019-05-22 14:00 | RAD_ITS ---
STUDY: X-RAY - PELVIS AND RIGHT HIP REASON FOR EXAM: Female, 64 years old. Pain TECHNIQUE: 4 views of the pelvis and hip. COMPARISON: None. FINDINGS: There is a non-specific bowel gas pattern. Normal visualized soft tissue structures. Moderate bilateral hip arthrosis without productive changes. Normal visualized femoral head. Normal acetabulum. Normal hip joint. RAD/HIP, UNI W/ Pelvis 2-3 Views IMPRESSION: No acute fracture or dislocation. Moderate bilateral hip arthrosis. Electronically Signed: Jt Cervantes, at 14:38 EST Tel , Service support ,
== END ==
PROVIDERS: Family Provider Internal Medicine; PCP Internal Medicine; Referring Provider Anesthesiology Pain Medicine; Visit Provider Anesthesiology Pain Medicine
DX: R10.31 Right lower quadrant pain (principal)
CPT/HCPCS: 73502

== ENCOUNTER 2019-06-04 09:16 | Day surgery (SDC) | payer MEDICARE, SELFPAY ==
[2019-05-14 13:49] VITALS: BMI 34.5
[2019-06-04 09:44] VITALS: BP 134/80; PULSE 85; RESP 15; TEMP 36.4; O2SAT 99; BMI 35.6
[2019-06-04] MEDS: Lactated Ringers 1,000 ML 100 ML IV (09:59)
--- NOTE | 2019-06-04 10:03 | RAD_ITS ---
STUDY: X-RAY - PELVIS AND RIGHT HIP REASON FOR EXAM: Female, 64 years old. Right hip intra-articular injection. TECHNIQUE: 2 intraoperative views of the pelvis and hip. COMPARISON: None. FINDINGS: Intraoperative imaging provided for right hip injection. Contrast is seen within the right hip joint. RAD/Fluoro Guided Needle Placement IMPRESSION: Intraoperative imaging provided for right hip injection. Electronically Signed: Bartolome Patel, at 14:48 EST , Service support ,
[2019-06-04] MEDS: Bupivacaine 0.25% 30 ML Vial (10:10)
[2019-06-04] MEDS: MethylPREDNISolone Acetate 80 MG/ML Vial (10:10)
[2019-06-04 10:20] VITALS: BP 125/70; BP 134/80; PULSE 70; RESP 18; TEMP 37; O2SAT 100
[2019-06-04 10:25] VITALS: BP 122/62; BP 134/80; PULSE 68; RESP 18; O2SAT 99
[2019-06-04 10:30] VITALS: BP 125/66; BP 134/80; PULSE 70; RESP 18; O2SAT 98
[2019-06-04 10:35] VITALS: BP 133/72; BP 134/80; PULSE 71; RESP 18; TEMP 36.8; O2SAT 100
--- NOTE | 2019-06-04 12:09 | PCM.OPRPT ---
Report of Operation Date of Procedure: 06/04/19 Description of Surgical Findings:: PREOPERATIVE DIAGNOSIS: Osteoarthritis of the right hip POSTOPERATIVE DIAGNOSIS: Osteoarthritis of the right hip PROCEDURE PERFORMED: Right hip intraarticular steroid injection under fluoroscopy guidance. ANESTHESIA: MAC. BLOOD LOSS: Minimal. COMPLICATIONS: None. DESCRIPTION OF PROCEDURE: History and physical of today was reviewed. Risks and benefits of the procedure were explained. The patient understood and agreed to proceed. Informed consent was obtained. IV inserted per routine protocol. The patient was taken to the operating room and placed in the supine position. The right hip area was prepped and draped in a sterile fashion using iodine x3. Under fluoroscopy guidance on AP view, the right hip joint was visualized. The skin and subcutaneous tissue was anesthetized with approximately 3 mL of 1% lidocaine using a 25-gauge regular needle approximately 3 cm cephalad to the right greater trochanter. Under direct visualization with fluoroscopy on an AP view, using a 22-gauge 5-inch spinal needle, the needle was advanced via the skin using the lateral approach. The tip of the needle was maneuvered and directed towards the superiormost aspect of the hip joint. Once the tip of the needle was at the vicinity of the joint, after negative aspiration for blood and positive aspiration of synovial fluid, a total of 1 mL of contrast was injected to confirm correct placement of the needle as well as halo spread around the hip joint. After repeated negative aspiration for blood and confirmation on AP as well as oblique view, a total of 10 mL of preservative-free 0.25% Marcaine with 80 mg of Depo-Medrol was injected easily. The needle was then removed intact. The patient experienced no sign or symptoms of intrathecal or intravascular injection. The patient experienced no paresthesia. The procedure was completed without any apparent difficulty or any complications. The patient appeared to tolerate it well. ASSESSMENT AND PLAN: This is a 64-year-old female with osteoarthritis of the right hip status post right hip intra-articular steroid injection under fluoroscopic guidance patient will continue current medications patient found approximately 2 weeks for reevaluation.
[2019-06-04 14:13] LABS: Prothrombin Time Fingerstick 13.6 SEC (11.9-14.4)
[2019-06-11 07:20] LABS: Prothrombin Time Fingerstick 13.6 SEC (11.9-14.4)
== END 2019-06-04 11:03 | disposition home or self-care (01) ==
LOC: SDC 09:16 → AC 09:18
PROVIDERS: Family Provider Internal Medicine; PCP Internal Medicine; Referring Provider Anesthesiology Pain Medicine; Visit Provider Anesthesiology Pain Medicine
PROC: 3E0U3GC Introduction of Other Therapeutic Substance into Joints, Percutaneous Approach (ICD-10-PCS; CPT 20610; principal; 2019-06-04 10:35)
DX: M16.11 Unilateral primary osteoarthritis, right hip (principal); M47.814 Spondylosis without myelopathy or radiculopathy, thoracic region; M51.34 Other intervertebral disc degeneration, thoracic region; M50.10 Cervical disc disorder with radiculopathy, unspecified cervical region; M47.22 Other spondylosis with radiculopathy, cervical region; M46.92 Unspecified inflammatory spondylopathy, cervical region; M47.27 Other spondylosis with radiculopathy, lumbosacral region; M51.17 Intervertebral disc disorders with radiculopathy, lumbosacral region; M46.96 Unspecified inflammatory spondylopathy, lumbar region; J45.909 Unspecified asthma, uncomplicated; E11.9 Type 2 diabetes mellitus without complications; M79.7 Fibromyalgia; K21.9 Gastro-esophageal reflux disease without esophagitis; F32.9 Major depressive disorder, single episode, unspecified; Z78.0 Asymptomatic menopausal state; Z86.2 Personal history of diseases of the blood and blood-forming organs and certain disorders involving the immune mechanism; Z87.19 Personal history of other diseases of the digestive system; Z86.718 Personal history of other venous thrombosis and embolism; Z86.711 Personal history of pulmonary embolism; Z79.01 Long term (current) use of anticoagulants; Z79.891 Long term (current) use of opiate analgesic; Z79.899 Other long term (current) drug therapy
CPT/HCPCS: 20610; 36416; 76000; 77002; 85610; J7120; A4216

== ENCOUNTER 2019-07-23 06:51 | Day surgery (SDC) | payer MEDICARE, SELFPAY ==
[2019-07-23 07:13] VITALS: BP 141/76; PULSE 81; RESP 16; TEMP 36.6; O2SAT 97; BMI 34.7
[2019-07-23] MEDS: Lactated Ringers 1,000 ML 100 ML IV (07:25)
--- NOTE | 2019-07-23 07:30 | RAD_ITS ---
PROCEDURE: Radiofrequency ablation of the right L3-L5 vertebral level. DATE OF EXAMINATION: July 23, 2019. INDICATION: Female, 64 years old. Chronic back pain. FLUOROSCOPY TIME (if supplied): (28 seconds) minutes/seconds Intraoperative imaging provided for right L3-L5 radiofrequency ablation. RAD/Lumbar Spine 2 or 3 Views IMPRESSION: Intraoperative imaging provided for right L3-L5 radiofrequency ablation. Electronically Signed: Bartolome Patel, at 14:23 EST , Service support ,
--- NOTE | 2019-07-23 07:38 | SUR.OPER ---
ESE INTERVENTIONAL SPINE MYRON LES LOT [id number] EXPIRES 11/2021
[2019-07-23] MEDS: Bupivacaine 0.25% 30 ML Vial (07:42)
[2019-07-23] MEDS: MethylPREDNISolone Acetate 80 MG/ML Vial (07:42)
[2019-07-23 08:05] VITALS: BP 130/68; BP 141/76; PULSE 81; RESP 16; TEMP 37.1; O2SAT 96
[2019-07-23 08:10] VITALS: BP 113/69; BP 141/76; PULSE 76; RESP 16; O2SAT 100
[2019-07-23 08:15] VITALS: BP 109/59; BP 141/76; PULSE 73; RESP 16; O2SAT 96
[2019-07-23 08:16] VITALS: BP 113/75; BP 141/76; PULSE 73; RESP 16; TEMP 37.3; O2SAT 93
--- NOTE | 2019-07-23 08:27 | PCM.OPRPT ---
Report of Operation Date of Procedure: 07/23/19 Description of Surgical Findings:: PROCEDURE: Right-sided radiofrequency ablation of the medial branch L3, L4, L5, S1 PREOPERATIVE DIAGNOSES: Lumbosacral spondylosis, lumbosacral degenerative disc disease, lumbar facet arthropathy POSTOPERATIVE DIAGNOSES: Lumbosacral spondylosis, lumbosacral degenerative disc disease, lumbar facet arthropathy ANESTHESIA: MAC COMPLICATIONS: None BLOOD LOSS: Minimal PROCEDURE IN DETAIL: History and physical today was reviewed. Risks and benefits of procedure explained. The patient understood, agreed to the procedure and informed consent was obtained. IV inserted per routine protocol. The patient was taken to the operating room, placed in the prone position with a pillow positioned underneath the abdomen. The right side of the lower back was prepped and draped in a sterile fashion using iodine x 3. Under fluoroscopy guidance, on an oblique view, the L3 through S1 vertebral bodies were visualized. The skin and subcutaneous tissue was anesthetized with approximately 10 mL of 1% lidocaine using a 25-gauge regular needle. Under direct visualization with fluoroscopy at approximately 25-degree angle, starting on the right L3, ending on the right S1 passing through the L4-L5 using a 20-gauge 15 cm with a 10 mm curved active tip radiofrequency ablation needle the needle passed through the skin. The tip of the needle was maneuvered and directed towards the superior and medial gutter of the transverse process at the vicinity of the medial branch. Once the tip of the needle was in contact with the bone, the needle pulled approximately 2 mm up the bone. The stylet of each needle was then removed. After negative aspiration of blood with CSF and confirmation of AP as well as oblique view, radiofrequency ablation probe was then inserted at each level. Impedance was then recorded at L3 to be 237, at L4 284, at L5 295, at S1 204 ohm. Motor-evoked potential was then initiated to 1.5 volt without any motor response at each corresponding level. The probe was then removed intact and a total of 6 mL preservative-free 1% lidocaine was injected in divided doses between those 4 levels after negative aspiration of blood with CSF. The radiofrequency ablation probe was then reinserted after confirmation of AP, oblique as well as lateral view. Radiofrequency ablation was then initiated to 80 degrees Celsius for 90 seconds at each level. Once concluded, the probe was then removed intact and a total of 6 mL of preservative-free 0.25% Marcaine with 40 mg Depo-Medrol was injected in divided doses between those 4 levels. The needles were then removed intact. The patient experienced no signs or symptoms of intrathecal, intravascular injection. The patient experienced no paraesthesia. The procedure was completed without any apparent difficulty, any complication. The patient appeared to tolerate well. Sensory as well as motor exam was unchanged from prior to procedure. ASSESSMENT AND PLAN: This is a 64-year-old Female with lumbosacral spondylosis, lumbosacral degenerative disc disease, lumbar facet arthropathy, status post right-sided radiofrequency ablation of the medial branch L3 through S1. The patient will continue her current medications. The patient will follow up in approximately 2 weeks for reevaluation.
[2019-07-23 08:51] VITALS: BP 141/76
[2019-07-23 13:21] LABS: Prothrombin Time Fingerstick 13.6 SEC (11.9-14.4)
== END 2019-07-23 08:53 | disposition home or self-care (01) ==
LOC: SDC 06:55 → AC 06:57
PROVIDERS: Family Provider Internal Medicine; PCP Internal Medicine; Referring Provider Anesthesiology Pain Medicine; Visit Provider Anesthesiology Pain Medicine
PROC: (CPT 64635; principal; 2019-07-23 07:15)
DX: M47.817 Spondylosis without myelopathy or radiculopathy, lumbosacral region (principal); M51.37 Other intervertebral disc degeneration, lumbosacral region; M50.00 Cervical disc disorder with myelopathy, unspecified cervical region; M50.10 Cervical disc disorder with radiculopathy, unspecified cervical region; M51.34 Other intervertebral disc degeneration, thoracic region; M47.814 Spondylosis without myelopathy or radiculopathy, thoracic region; M50.30 Other cervical disc degeneration, unspecified cervical region; E11.9 Type 2 diabetes mellitus without complications; M79.7 Fibromyalgia; J45.909 Unspecified asthma, uncomplicated; F32.9 Major depressive disorder, single episode, unspecified; Z78.0 Asymptomatic menopausal state; Z79.01 Long term (current) use of anticoagulants; Z79.891 Long term (current) use of opiate analgesic; Z79.899 Other long term (current) drug therapy; Z86.711 Personal history of pulmonary embolism; Z86.19 Personal history of other infectious and parasitic diseases; Z86.718 Personal history of other venous thrombosis and embolism; Z96.653 Presence of artificial knee joint, bilateral
CPT/HCPCS: 01936; 64635; 64636 ×2; 36416; 72100; 76000; 85610; J7120; A4216

== ENCOUNTER 2019-08-20 08:51 | Day surgery (SDC) | payer MEDICARE, SELFPAY ==
[2019-08-20 09:09] VITALS: BP 136/68; PULSE 65; RESP 16; TEMP 36.7; O2SAT 97; BMI 35.8
[2019-08-20 09:10] LABS: Prothrombin Time Fingerstick 13.8 SEC (11.9-14.4)
[2019-08-20] MEDS: Lactated Ringers 1,000 ML 100 ML IV (09:25)
--- NOTE | 2019-08-20 09:54 | RAD_ITS ---
STUDY: X-RAY - LUMBAR SPINE REASON FOR EXAM: Female, 64 years old. RADIOFREQUENCY ABLATION L3-S1 -- 21.9 FLUORO SEC, 5.76mGy, 7 FLUORO IMAGES TECHNIQUE: Coned-down view(s) of the lumbar spine were obtained. COMPARISON: None FINDINGS: Intraoperative fluoroscopic services provided for left L3-S1 radiofrequency ablation. RAD/Lumbar Spine 2 or 3 Views IMPRESSION: Intraoperative fluoroscopic services provided for left L3-S1 radiofrequency ablation. Electronically Signed: Bartolome Patel, at 15:45 EST , Service support ,
[2019-08-20] MEDS: Bupivacaine 0.25% 30 ML Vial (10:07)
[2019-08-20] MEDS: MethylPREDNISolone Acetate 80 MG/ML Vial (10:07)
[2019-08-20 10:18] VITALS: BP 114/55; BP 136/68; PULSE 66; RESP 16; TEMP 37.1; O2SAT 95
[2019-08-20 10:20] VITALS: BP 110/61; BP 136/68; PULSE 69; RESP 16; O2SAT 96
[2019-08-20 10:35] VITALS: BP 109/67; BP 136/68; PULSE 74; RESP 16; TEMP 37.1; O2SAT 99
[2019-08-20 10:50] VITALS: BP 136/68
--- NOTE | 2019-08-20 12:17 | PCM.OPRPT ---
Report of Operation Date of Procedure: 08/20/19 Description of Surgical Findings:: PREOPERATIVE DIAGNOSIS: Lumbosacral spondylosis, lumbosacral degenerative disc disease, lumbar facet arthropathy POSTOPERATIVE DIAGNOSIS: Lumbosacral spondylosis, lumbosacral degenerative disc disease, lumbar facet arthropathy PROCEDURE PERFORMED: Left-sided lumbar radiofrequency ablation of the medial branch at L3, L4, L5, and S1. ANESTHESIA: MAC. BLOOD LOSS: Minimal. COMPLICATIONS: None. DESCRIPTION OF PROCEDURE: History and physical of today was reviewed. Risks and benefits of the procedure were explained. The patient understood and agreed to proceed. Informed consent was obtained. IV inserted per routine protocol. The patient was taken to the operating room and placed in the prone position with a pillow positioned underneath the abdomen. The left side of her lower back was prepped and draped in a sterile fashion using iodine x3. Under fluoroscopy guidance in an oblique view, the L3 through S1 vertebral bodies were visualized. The skin and subcutaneous tissue was anesthetized with approximately 10 mL of 1% lidocaine using a 25-gauge regular needle. Under direct visualization on fluoroscopy at approximately 25-degree angle, starting on the left L3, ending on the left S1, passing through the L4 and L5, using a 20-gauge 15-cm with a 10-mm curved active-tip radiofrequency ablation needle, the needle was passed through the skin. The tip of the needle was maneuvered and directed towards the superior medial gutter of the transverse process at the vicinity of the medial branch. Once the tip of the needle was in contact with the bone, the needle was pulled approximately 2 mm off the bone. The stylette of each needle was then removed. After negative aspiration of blood or CSF and confirmation on AP, oblique as well as lateral view, the radiofrequency ablation probe was then inserted at each level. Impedance was then recorded at L3 to be 276 ohm, at L4 to be 287 ohm, at L5 to be 241 ohm, and at S1 to be 234 ohm. Motor evoked potential was then initiated to 1.5 volt without any motor response at each corresponding level. The probe was then removed intact and a total of 6 mL of preservative-free 1% lidocaine was injected in divided doses between those four levels after negative aspiration of blood or CSF. The radiofrequency ablation probe was then reinserted. After confirmation on AP, oblique as well as lateral view, radiofrequency ablation was then initiated to 80 degree Celsius for 90 second at each level. Once concluded, the probe was then removed intact. A total of 6 mL of preservative-free 0.25% Marcaine with 40 mg of Depo-Medrol was injected in divided doses between those four levels. The needles were then removed intact. The patient experienced no sign or symptoms of intrathecal or intravascular injection. The patient experienced no paresthesia. The procedure was completed without any apparent difficulty or any complications. The patient appeared to tolerate it well. Sensory as well as motor exam was unchanged from prior to the procedure. ASSESSMENT AND PLAN: This is a 64-year-old female with lumbosacral spondylosis, lumbosacral degenerative disc disease, lumbar facet arthropathy status post left-sided lumbar radiofrequency ablation of the medial branch L3-S1, patient will continue her current medications patient phone approximately 2 weeks for reevaluation.
== END 2019-08-20 11:22 | disposition home or self-care (01) ==
LOC: SDC 08:51 → AC 08:53
PROVIDERS: PCP Internal Medicine; Referring Provider Anesthesiology Pain Medicine; Visit Provider Anesthesiology Pain Medicine
PROC: (CPT 64635; principal; 2019-08-20 09:15)
DX: M47.27 Other spondylosis with radiculopathy, lumbosacral region (principal); M51.17 Intervertebral disc disorders with radiculopathy, lumbosacral region; M51.34 Other intervertebral disc degeneration, thoracic region; M50.10 Cervical disc disorder with radiculopathy, unspecified cervical region; M47.22 Other spondylosis with radiculopathy, cervical region; M79.7 Fibromyalgia; M19.90 Unspecified osteoarthritis, unspecified site; E11.9 Type 2 diabetes mellitus without complications; J45.909 Unspecified asthma, uncomplicated; Z79.01 Long term (current) use of anticoagulants; Z79.899 Other long term (current) drug therapy; Z79.891 Long term (current) use of opiate analgesic; Z86.711 Personal history of pulmonary embolism
CPT/HCPCS: 01936; 64635; 64636 ×3; 36416; 72100; 76000; 85610; J7120; A4216

== ENCOUNTER → 2020-01-21 14:44 | Outpatient (CLI) | payer MEDICARE, SELFPAY ==
[2020-01-21] MEDS: 0.9% NaCl VAD Flush IV ×2 (15:10→15:52)
[2020-01-21] MEDS: 0.9% Normal Saline 1,000 ML 999 ML IV (15:11)
[2020-01-21] MEDS: 0.9 % NaCl (Sterile) Posiflush 10 mL IV (15:11)
[2020-01-21 15:44] VITALS: BP 118/58; PULSE 61; RESP 18; TEMP 36.9; O2SAT 100; BMI 35.5
--- NOTE | 2020-01-21 15:50 | NURSING ---
RT CHEST PORT ACCESSED, BLOOD RETURN NOTED BUT DIFFICULT TO FLUSH, MILD EDEMA NOTED AROUND PORT SITE, PT C/O MILD DISCOMFORT IN AREA. PT IS GETTING NEW PORT PLACED SOON, STATES THIS ONE IS OLD. PORT DEACCESSED AND PIV STARTED. SITE INTACT, NO EDEMA NOTED AFTER DEACCESS
== END ==
PROVIDERS: PCP Internal Medicine; Referring Provider Internal Medicine; Visit Provider Internal Medicine
DX: K86.1 Other chronic pancreatitis (principal)
CPT/HCPCS: 96360; J7030; A4216

== ENCOUNTER 2020-02-04 10:55 | Day surgery (SDC) | payer MEDICARE, SELFPAY ==
[2020-01-28 10:07] VITALS: BMI 35.6
[2020-02-04 11:36] LABS: Prothrombin Time Fingerstick 15.8 SEC (11.9-14.4)
[2020-02-04 11:50] VITALS: BP 129/87; PULSE 76; RESP 16; TEMP 37; O2SAT 100; BMI 33.9
[2020-02-04] MEDS: Lactated Ringers 1,000 ML 100 ML IV (12:15)
--- NOTE | 2020-02-04 13:18 | HP.PCM_ITS ---
History and Physical Date of Admission: 02/04/20 [facility] [address] [place] [address] OFFICE VISIT Date of Service: 01/28/20 MR#: [id number] Acct: [id number] Name: JOSE J COBIAN Rep #: [id number] : [id number] Provider: Dr. 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 Is patient in pain?: No Allergies hydroxychloroquine sulfate [From Plaquenil] Allergy (Intermediate, Verified 02/04/20 11:48) Rash Penicillins Allergy (Intermediate, Verified 02/04/20 11:48) Rash adhesive tape Allergy (Verified 02/04/20 11:48) Rash erythromycin base [Erythromycin Base] Allergy (Verified 02/04/20 11:48) Unknown levofloxacin [From Levaquin] Allergy (Verified 02/04/20 11:48) Unknown furosemide [From Lasix] Adverse Reaction (Verified 02/04/20 11:48) pancretitis hctz Adverse Reaction (Severe, Uncoded 02/04/20 11:48) Unknown Medications Amitriptyline HCl [Elavil] 100 mg PO QHS 07/30/13 [History Confirmed 01/31/20] Duloxetine Hcl [Cymbalta] 60 mg PO QHS 07/30/13 [History Confirmed 01/31/20] Montelukast [Singulair] 10 mg PO QHS 07/30/13 [History Confirmed 01/31/20] fentaNYL patch [Duragesic patch] 50 mcg TRANSDERM. Q72H 07/30/13 [History Confirmed 01/31/20] Albuterol Sulfate [Proventil Hfa] 6.7 gm IH PRN PRN 08/29/13 [History Confirmed 01/31/20] Multivitamins,Therapeutic [Multivitamin] 1 tab PO DAILY 08/29/13 [History Confirmed 01/31/20] Zolpidem Tartrate [Ambien] 10 mg PO QHS PRN PRN 08/29/13 [History Confirmed 01/31/20] Acetaminophen [Tylenol] 650 mg PO Q4H PRN PRN 07/31/15 [History Confirmed 01/31/20] Tizanidine HCl 4 mg PO TID 07/31/15 [History Confirmed 02/04/20] Ascorbic Acid [Vitamin C] 1,000 mg PO DAILY@0800 09/08/15 [History Confirmed ] Ibuprofen [Motrin] 400 mg PO BID PRN PRN 09/08/15 [History Confirmed 01/31/20] Calcium (Elemental) [Os-Fernando 500] 500 mg PO DAILY@0800 10/20/15 [History Confirmed 01/31/20] Hydrocodone Bitart/Apap 5-325 [[place] 5/325] 1 tab PO Q4H PRN PRN 02/22/16 [History Confirmed 01/31/20] lipase/protease/amylase [Creon DR 24,000 Unit Capsule] 48,000 units PO TIDCM 02/23/16 [History Confirmed 01/31/20] Omeprazole [Prilosec] 40 mg PO BID 03/17/16 [History Confirmed 01/31/20] Albuterol Aerosols [Ventolin Aerosols] 2.5 mg INHALATION Q4H PRN PRN 08/03/17 [History Confirmed 01/31/20] clonidine HCl 0.1 mg tablet 0.1 mg PO BID 10/09/18 [History Confirmed 02/04/20] ergocalciferol (vitamin D2) 1,250 mcg (50,000 unit) capsule 50,000 unit PO TUTH 10/09/18 [History Confirmed 01/31/20] warfarin 4 mg tablet 4 mg PO QHS tab 10/09/18 [History Confirmed 01/31/20] Is last menstrual period known: No Post menopausal: Yes Patient : No PFSH Medical History Patent foramen ovale (Chronic) Deep venous thrombosis (Chronic) COPD (chronic obstructive pulmonary disease) (Chronic) Chest pain (Chronic) Surgical History H/O gastric bypass (Chronic) H/O: hysterectomy (Chronic) History of cholecystectomy (Chronic) Hx of jejunostomy (Chronic) Family History Mother , age 80 Myocardial infarction beginning age 60's, has had several VT's CAD (coronary artery disease) history of cardiac stents Father , age 65 Cancer pancreatic Grandfather Myocardial infarction Diabetes Social History (Updated 02/04/20 @ 12:[address] Antonino Batres MD) Smoking Status: Never smoker alcohol intake: never substance use type: does not use caffeine: Yes Type: coffee Number of servings: 1 what type of physical activity do you participate in: walking frequency: 1-2 times per week duration: 15-30 minutes/day seatbelt use: always do you feel safe at home: Yes HPI HPI HPI: JOSE J COBIAN, is a 64 F who presents to the office today for HPI HPI HPI: JOSE J COBIAN, is a 64 F who presents to the office today for evaluation of a right IJ Port-A-Cath. I placed this Port-A-Cath in January [id number]. Originally saw her back in July 2018. We decided not to do anything with the port at that time however now the port is not functioning at all. And when they try to flush it she has fluid accumulating underneath the actual port itself. She is not complaining of any pain at the site and they have been able to use the port for infusions. ROS General General: Yes fatigue; no weight change, appetite, colon cancer, breast cancer or weakness HEENT HEENT: No difficulty swallowing, eye injury, eye surgery, swollen glands or hoarseness Endo Endocrine: No thyroid disease, diabetes mellitus, thyroid cancer, Hair loss, heat intolerance or cold intolerance Musc Musculoskeletal: Yes back problems and arthritis; no rheumatoid arthritis, gout or joint pain Cardio Cardiovascular: No murmur, pacemaker, heart disease, atrial fibrillation, high blood pressure, heart attack, heart stent, palpitations, shortness of breat with exertion or chest pain Psych Psychiatric: No depression, anxiety or hearing voices Resp Respiratory: Yes shortness of breath, No sleep apnea, No cough, Yes COPD, No asthma, No emphysema, No wheezing Gastro Gastrointestinal: No abdominal pain, No nausea or vomiting, No diarrhea, No constipation, No blood in stool, No acid reflux, No hemorrhoids, No ulcers, No gallbladder problem, No black,tarry stools Javan Hematologic: Yes blood thinners, No blood disorders, No bleeding, No anemia, Yes blood clots Neuro Neurologic: No weakness Exam Const General: no acute distress, well developed, well hydrated Orientation: oriented to person, oriented to place, oriented to time [facility] Head: normocephalic, atraumatic Ears: external ears normal Mouth: moist mucous membranes Eyes Sclera: sclerae normal Pupils: normal by confrontation Neck Neck: no lymphadenopathy noted Neck mass: No Thyroid: thyroid normal, symmetrical Chest Chest palpation & inspection: normal inspection of the chest Resp Effort & Inspection: normal respiratory effort Auscultation: clear to auscultation bilaterally Percussion: percussion normal Cardio Rate: regular rate Rhythm: regular rhythm Heart Sounds: no murmurs GI Palpation: soft, no hepatosplenomegaly, no masses, nontender Rectal Exam: other Other: Rectal exam deferred. Extrem General: normal to inspection, no clubbing, cyanosis or edema Assessment & Plan Problems 1. Vascular catheter fitting or adjustment Z45.2 Plan I plan to perform a Left IJ port a cath placement. The planned surgical procedure was discussed extensively with the patient. The risks, benefits, anticipated outcomes and possible complication were mentioned. My staff has also explained the procedure in understandable terms and the patient was given the option to take printed material concerning the planned procedure. The patient had the opportunity to ask questions concerning the planned procedure. The patient freely consents to the planned procedure. We will not be doing anything to her port on the right side. Since it was placed back in 2002 I think that it would be unwise to remove it. It is more than likely significantly adherent to the lateral sidewall of her vena cava. Coding Level of Care Code Off vis,est,level 3 Diagnoses Vascular catheter fitting or adjustment Z45.2 COVID (Procedure Consent) Procedure Criteria Procedure Criteria: Yes Elective The surgeon/proceduralist and patient have discussed in detail the risk of exposure to and/or potential harm posed by the COVID-19 virus with having a surgery/procedure at this time versus the risk of? delaying the surgery/procedure. It is not possible to know either the risk of delaying the surgery or procedure or chance of getting an infection with perfect accuracy, but a joint decision was made between the patient and the surgeon/proceduralist ?to proceed at this time with the scheduled surgery/procedure as indicated on the consent form. 02/04/20 1206 <Electronically signed by Antonino copeland MD> Date _ Antonino Batres MD [facility] Signature: Date (if applicable) CC: Dr. Sarah Ch MD ~ I have re-examined the patient. There are no clinical changes since date of exam.
--- NOTE | 2020-02-04 13:39 | PCM.OPRPT ---
Problem List (1) Vascular catheter fitting or adjustment Status: Acute Report of Operation Date of Procedure: 02/04/20 Pre-Operative Diagnosis: Vascular fitting and adjustment Post-Operative Diagnosis: Same Surgery/Procedure Performed:: Left internal jugular PowerPort placement Type of Anesthesia:: Local MAC Anesthesiologist: Yuri Eng Estimated Blood Loss (mL): < 25 cc Description of Procedure: Patient was brought in the operating room. Placed in the supine position. Under excellent MAC anesthetic ultrasound the left neck and identify the internal jugular vein I marked the neck appropriately. The neck and chest were then sterilely prepped and draped in usual fashion. Local was injected into the neck Seldinger's technique was used to gain access to the internal jugular vein with ultrasound guidance. Guidewire was placed over the needle the needle was removed fluoroscopy was used to confirm proper placement of the wire. Local was injected in the chest. Incision was made electrocautery was used to create a pocket for the port. Skin ace was made in the chest dilator was placed over the guidewire and then the dilator and guidewire were placed over the guidewire subsequently the wire and dilator were removed. Single-lumen catheter were then placed into the sheath and the sheath was subsequently removed fluoroscopy was used to confirm proper length. I tunneled from the pocket created over the collarbone into the neck and brought the catheter down. Locking hub was placed on the catheter port was placed on the catheter and the 2 were secured with a locking hub. The catheter shifted out a little bit so had to take the locking hub off the catheter replace a guidewire into the catheter length and my incision in the next slightly so that I can get the catheter back down into the superior vena cava in its proper place once this was done I removed the guidewire put the port back onto the catheter and secured the 2 with a locking hub it flushed and irrigated well was flushed with hep flush. I sutured the port into the pocket created with 2 sutures of 2-0 Prolene. Skin incisions were closed with subcuticular stitches of 3-0 Vicryl. Dermabond was applied sterile dressings were applied and the patient tolerated the procedure well. - Admit VTE Documentation VTE Present on Admission: No VTE Mechan Device Prophylaxis: SCD's VTE Pharm Prophylaxis ordered?: No Reason prophylaxis not ordered:: Treatment Not Indicated - Procedures Cardiovascular CF Procedures [id number]: [id number] Insert tunneled cv cath - + [id number], +[id number]
--- NOTE | 2020-02-04 13:40 | PCM.DC.POR ---
Discharge Diet: No Restrictions - Pain medication may cause nausea. You should typically eat light foods as you take your pain medication. Discharge Activity: May Shower - with the bandage in place 1-2 days after surgery. DO NOT SHOWER WHEN YOUR PORT IS ACCESSED. Additional Activity Instructions:: May not drive, work with heavy equipment, or sign legal documents for [address] if you are no longer taking narcotic pain medications. You may drive when you are no longer taking pain medications. Additional Dressing/Incision Instructions:: Leave the bandage on for 2-3 days. When you remove the bandage, leave the steri-strips intact until they fall off. Allergies/Adverse Reactions: Allergies hydroxychloroquine sulfate [From Plaquenil] Allergy (Intermediate, Verified 02/04/20 11:48) Rash Penicillins Allergy (Intermediate, Verified 02/04/20 11:48) Rash adhesive tape Allergy (Verified 02/04/20 11:48) Rash erythromycin base [Erythromycin Base] Allergy (Verified 02/04/20 11:48) Unknown levofloxacin [From Levaquin] Allergy (Verified 02/04/20 11:48) Unknown furosemide [From Lasix] Adverse Reaction (Verified 02/04/20 11:48) pancretitis hctz Adverse Reaction (Severe, Uncoded 02/04/20 11:48) Unknown Medications to take at Discharge Amitriptyline HCl [Elavil] 100 mg PO QHS 07/30/13 Duloxetine Hcl [Cymbalta] 60 mg PO QHS 07/30/13 Montelukast [Singulair] 10 mg PO QHS 07/30/13 fentaNYL patch [Duragesic patch] 50 mcg TRANSDERM. Q72H 07/30/13 Albuterol Sulfate [Proventil Hfa] 6.7 gm IH PRN PRN 08/29/13 Multivitamins,Therapeutic [Multivitamin] 1 tab PO DAILY 08/29/13 Zolpidem Tartrate [Ambien] 10 mg PO QHS PRN PRN 08/29/13 Acetaminophen [Tylenol] 650 mg PO Q4H PRN PRN 07/31/15 Tizanidine HCl 4 mg PO TID 07/31/15 Ascorbic Acid [Vitamin C] 1,000 mg PO DAILY@0800 09/08/15 Ibuprofen [Motrin] 400 mg PO BID PRN PRN 09/08/15 Calcium (Elemental) [Os-Fernando 500] 500 mg PO DAILY@0800 10/20/15 Hydrocodone Bitart/Apap 5-325 [[place] 5/325] 1 tab PO Q4H PRN PRN 02/22/16 lipase/protease/amylase [Creon DR 24,000 Unit Capsule] 48,000 units PO TIDCM 02/23/16 Omeprazole [Prilosec] 40 mg PO BID 03/17/16 Albuterol Aerosols [Ventolin Aerosols] 2.5 mg INHALATION Q4H PRN PRN 08/03/17 clonidine HCl 0.1 mg tablet 0.1 mg PO BID 10/09/18 ergocalciferol (vitamin D2) 1,250 mcg (50,000 unit) capsule 50,000 unit PO TUTH 10/09/18 warfarin 4 mg tablet 4 mg PO QHS tab 10/09/18 Primary Care Physician: Sarah Ch MD [Primary Care Provider] - Test Results: Test results from this visit will be discussed in further detail at your follow-up appointment, if applicable. Please Follow Up With: Antonino Batres MD - [phone] When: Please plan to follow up in 7 days in the office.
--- NOTE | 2020-02-04 13:41 | RAD_ITS ---
STUDY: X-RAY CHEST REASON FOR EXAM: Female, 64 years old. Post port insertion TECHNIQUE: Single AP portable view of the chest. COMPARISON: Comparison is made with prior study dated 02/22/2016. FINDINGS: A new left-sided portacatheter has been placed with the tip at the junction of the superior vena cava and right atrium. Stable appearance of the right portacatheter. The lungs are clear and expanded. There is no demonstrated pleural abnormality. Normal size heart. Normal mediastinum and yu. Normal visualized pulmonary arteries. Normal visualized aortic arch and descending thoracic aorta. Normal visualized thoracic spine. Normal visualized ribs, clavicles, and shoulders. Surgical clips are seen in the left upper quadrant. RAD/CXR for Line Placement IMPRESSION: New insertion of a left jorge catheter with the tip at the junction of the superior vena cava and right atrium. Stable appearance of the right portacatheter. Electronically Signed: Bartolome Patel, at 15:25 EDT , Service support ,
[2020-02-04] MEDS: BUPIVACAINE LIPOSOME/PF 20 ML VIAL OPERA.SITE (14:15)
[2020-02-04 14:45] VITALS: BP 125/65; BP 129/87; PULSE 81; RESP 16; TEMP 36.8; O2SAT 100
[2020-02-04 14:50] VITALS: BP 126/66; BP 129/87; PULSE 79; RESP 16; O2SAT 99
[2020-02-04 15:00] VITALS: BP 129/87; BP 132/77; PULSE 69; RESP 16; TEMP 36.6; O2SAT 98
[2020-02-04 15:50] VITALS: BP 129/87; BP 134/83; PULSE 69; RESP 18; TEMP 36.8; O2SAT 99
== END 2020-02-04 16:02 | disposition home or self-care (01) ==
LOC: SDC 10:55 → AC 11:07
PROVIDERS: Anesthesiology; PCP Internal Medicine; Referring Provider Surgery; Visit Provider Surgery
PROC: (CPT 36561; principal; 2020-02-04 12:45)
DX: Z45.2 Encounter for adjustment and management of vascular access device (principal); Z11.59 Encounter for screening for other viral diseases; J45.909 Unspecified asthma, uncomplicated; M19.90 Unspecified osteoarthritis, unspecified site; K21.9 Gastro-esophageal reflux disease without esophagitis; Z78.0 Asymptomatic menopausal state; Z79.01 Long term (current) use of anticoagulants; Z79.1 Long term (current) use of non-steroidal anti-inflammatories (NSAID); Z79.899 Other long term (current) drug therapy; Z86.718 Personal history of other venous thrombosis and embolism; Z86.711 Personal history of pulmonary embolism; Z86.19 Personal history of other infectious and parasitic diseases; J44.9 Chronic obstructive pulmonary disease, unspecified; Q21.1 Atrial septal defect; Z98.84 Bariatric surgery status; Z90.710 Acquired absence of both cervix and uterus
CPT/HCPCS: 00532; 36561; 76937; 36416; 71045; 77001; 85610; 87635; 94799; J7120; C1769; C1788; U0003

== ENCOUNTER → 2020-03-24 14:32 | Outpatient (CLI) | payer MEDICARE, SELFPAY ==
[2020-02-08 14:01] VITALS: BMI 33.9
[2020-03-24] MEDS: 0.9% NaCl VAD Flush IV (14:42)
[2020-03-24] MEDS: 0.9 % NaCl (Sterile) Posiflush 10 mL IV (14:42)
== END ==
PROVIDERS: PCP Internal Medicine; Referring Provider Internal Medicine; Visit Provider Internal Medicine
DX: Z45.2 Encounter for adjustment and management of vascular access device (principal); K86.1 Other chronic pancreatitis
CPT/HCPCS: 96523; A4216

== ENCOUNTER → 2020-05-02 13:35 | Outpatient (CLI) | payer MEDICARE, SELFPAY ==
[2020-02-08 14:01] VITALS: BMI 33.9
[2020-05-02] MEDS: 0.9 % NaCl (Sterile) Posiflush 10 mL IV (14:00)
[2020-05-02] MEDS: 0.9% NaCl IVPB Med Flush (250 mL) 15 ML IV (14:00)
[2020-05-02 14:10] VITALS: BP 138/80; PULSE 64; RESP 16; TEMP 36.3; O2SAT 99; BMI 34.3
[2020-05-02 15:21] VITALS: BP 125/66; PULSE 86; RESP 18; O2SAT 96
== END ==
PROVIDERS: PCP Internal Medicine; Referring Provider Internal Medicine; Visit Provider Internal Medicine
DX: Z95.828 Presence of other vascular implants and grafts (principal); D50.9 Iron deficiency anemia, unspecified
CPT/HCPCS: 96365; J1756; J7050; A4216

== ENCOUNTER → 2020-05-16 | Outpatient (CLI) | payer MEDICARE, SELFPAY ==
[2020-02-08 14:01] VITALS: BMI 33.9
[2020-05-15 14:43] VITALS: BMI 34.7
[2020-05-16] MEDS: 0.9 % NaCl (Sterile) Posiflush 10 mL IV (14:06)
[2020-05-16] MEDS: 0.9% NaCl IVPB Med Flush (250 mL) 15 ML IV (14:06)
[2020-05-16 14:07] VITALS: BP 147/92; PULSE 73; RESP 16; TEMP 36.6; O2SAT 100; BMI 34.7
[2020-05-16] MEDS: 0.9% NaCl VAD Flush IV (15:17)
[2020-05-16 15:27] VITALS: BP 149/64; PULSE 65; RESP 16; TEMP 36.1; O2SAT 100
== END | disposition home or self-care (01) ==
LOC: MEDOUTP 13:41
PROVIDERS: PCP Internal Medicine; Referring Provider Internal Medicine; Visit Provider Internal Medicine
DX: D50.9 Iron deficiency anemia, unspecified (principal); K86.1 Other chronic pancreatitis
CPT/HCPCS: 96365; J1756; J7050; A4216

== ENCOUNTER → 2020-05-28 11:37 | Outpatient (CLI) | payer MEDICARE, SELFPAY ==
[2020-02-08 14:01] VITALS: BMI 33.9
[2020-05-16 14:07] VITALS: BMI 34.7
--- NOTE | 2020-05-28 11:38 | BI_ITS ---
MAMMOGRAPHY - BILATERAL SCREENING REASON FOR EXAM: Female, 65 years old. Routine annual screening examination. PERTINENT HISTORY: Screening TECHNIQUE: Digital bilateral breast kimberlee (3D mammographic acquisition) in the CC and MLO projections. 2-D mediolateral oblique (MLO) and craniocaudad (CC) views of both breasts were obtained. CAD: Full Field Digital Mammography with Computer Added Detection was performed. COMPARISON: Previous mammogram obtained on 05/09/2019 FINDINGS: Breast Composition: Heterogeneously dense There are no dominant masses or suspicious calcifications. No other significant abnormalities are identified. BI/SCREEN MAMM (CAD) W/KIMBERLEE BILAT IMPRESSION: Stable bilateral screening mammogram. Yearly follow-up mammogram recommended. (A) ASSESSMENT CATEGORY: BIRADS Category 1: Negative. A letter regarding these results will be sent to the patient by the facility within 30 days. Approximately 10% of breast cancers are not detected by mammography. A normal mammogram should not delay biopsy of a clinically suspicious abnormality. [id number] Electronically Signed: Charan Pinto, at 16:13 EST Tel , Service support ,
--- NOTE | 2020-05-28 11:40 | BD_ITS ---
STUDY: DUAL ENERGY X-RAY ABSORPTIOMETRY / DXA REASON FOR EXAM: Female, 65 years old. Age of surgical carol[place] 34. Pat is 173# and 4''11 and quot; a loss of 3 and quot; per pat. Currently on Progestin. Injections in spine for DDD. Takes an inhaler for asthma prn. Takes 1200 mg of calcium and a multi-vit. Exercises moderately to high. Mother and grandmother have osteo. TECHNIQUE: Bone Mineral Density (BMD) measurements of lumbar spine and bilateral hips were obtained. COMPARISON: Comparison is made with prior study dated 03/21/2018. FINDINGS: Lumbar Spine (L1-L4): g/cm2 (1.032) / T-score (-1.1) / Z-score (0.4) Findings are suggestive of osteopenia with a low fracture risk. Left Femur Total: g/cm2 (0.943) / T-score (-0.5) / Z-score (0.6) Left Femoral Neck: g/cm2 (0.870) / T-score (-1.2) / Z-score (0.2) Right Femur Total: g/cm2 (0.895) / T-score (-0.9) / Z-score (0.3) Right Femoral Neck: g/cm2 (0.854) / T-score (-1.3) / Z-score (0.1) The T-Scores on the most recent prior examination were: Lumbar Spine (L1-L4): There has been worsening of bone density since the previous examination. Left Femur Total: which represents a worsening of 9%. Right Femur Total: which represents a worsening of 7.3%. BD/Dexa Bone Density Study IMPRESSION: The patient is considered osteopenic as outlined below according to World Rogers Organization (WHO) criteria with a low fracture risk. There has been worsening of bone density since the previous examination. Reference Information: The T-score is the number of standard deviations above or below the standard which is normal for young adults at their peak bone mineral density. The World Health Organization (WHO) interprets the T-scores as follows: Above -1 Normal bone density Between -1 and -2.5 Osteopenia Equal to / or below -2.5 Osteoporosis As a practical clinical guideline, osteopenia may be graded as follows: Mild -1 through -1.5 Moderate -1.6 through -2.0 Severe -2.1 through -2.4 The Z-score is the number of standard deviations above or below age-matched controls. A Z-score of less than -1.5 would be considered abnormal. References: 1. NIH Osteoporosis and Related Bone Diseases www osteo.org 2. International Society for Clinical Densitometry www iscd.org 3. National Osteoporosis Foundation www nof.org Electronically Signed: Bartolome Patel, at 10:54 EST , Service support ,
== END ==
PROVIDERS: PCP Internal Medicine; Referring Provider Internal Medicine; Visit Provider Internal Medicine
DX: Z12.31 Encounter for screening mammogram for malignant neoplasm of breast (principal); Z78.0 Asymptomatic menopausal state
CPT/HCPCS: 77063; 77067; 77080

== ENCOUNTER 2020-06-09 06:33 | Day surgery (SDC) | payer MEDICARE, SELFPAY ==
[2020-05-16 14:07] VITALS: BMI 34.7
[2020-06-09 06:50] LABS: Prothrombin Time Fingerstick 14.4 SEC (11.9-14.4)
[2020-06-09 06:56] VITALS: BP 145/78; PULSE 83; RESP 14; TEMP 36.4; O2SAT 100; BMI 34.8
[2020-06-09] MEDS: Lactated Ringers 1,000 ML 100 ML IV (07:23)
--- NOTE | 2020-06-09 07:41 | RAD_ITS ---
STUDY: X-RAY - LUMBAR SPINE REASON FOR EXAM: Female, 65 years old. Lumbar frequency ablation L3-S1 right TECHNIQUE: 3 view(s) of the lumbar spine were obtained. COMPARISON: None FINDINGS: Intraoperative imaging provided for right L3-S1 radiofrequency ablation. RAD/Lumbar Spine 2 or 3 Views IMPRESSION: Intraoperative imaging provided for right L3-S1 radiofrequency ablation. Electronically Signed: Bartolome Patel, at 15:54 EST , Service support ,
[2020-06-09] MEDS: Lidocaine 1% (30 ml sdv) 30 ML Vial (07:49)
[2020-06-09] MEDS: MethylPREDNISolone Acetate 40 MG/ML Vial IM (07:50)
[2020-06-09] MEDS: Bupivacaine 0.25% 30 ML Vial (07:50)
[2020-06-09 08:06] VITALS: BP 119/75; BP 145/78; PULSE 72; RESP 16; TEMP 36.8; O2SAT 99
[2020-06-09 08:11] VITALS: BP 118/78; BP 145/78; PULSE 73; RESP 16; O2SAT 100
--- NOTE | 2020-06-09 08:11 | PCM.OPRPT ---
Report of Operation Date of Procedure: 06/09/20 Description of Surgical Findings:: PROCEDURE: Right-sided lumbar radiofrequency ablation of the medial branch L3, L4, L5, S1 PREOPERATIVE DIAGNOSES: Lumbosacral spondylosis, lumbosacral degenerative disc disease, lumbar facet arthropathy POSTOPERATIVE DIAGNOSES: Lumbosacral spondylosis, lumbosacral degenerative disc disease, lumbar facet arthropathy ANESTHESIA: MAC COMPLICATIONS: None BLOOD LOSS: Minimal PROCEDURE IN DETAIL: History and physical today was reviewed. Risks and benefits of procedure explained. The patient understood, agreed to the procedure and informed consent was obtained. IV inserted per routine protocol. The patient was taken to the operating room, placed in the prone position with a pillow positioned underneath the abdomen. The right side of the lower back was prepped and draped in a sterile fashion using iodine x 3. Under fluoroscopy guidance, on an oblique view, the L3 through S1 vertebral bodies were visualized. The skin and subcutaneous tissue was anesthetized with approximately 10 mL of 1% lidocaine using a 25-gauge regular needle. Under direct visualization with fluoroscopy at approximately 25-degree angle, starting on the right L3, ending on the right S1 passing through the L4-L5 using a 20-gauge 15 cm with a 10 mm curved active tip radiofrequency ablation needle the needle passed through the skin. The tip of the needle was maneuvered and directed towards the superior and medial gutter of the transverse process at the vicinity of the medial branch. Once the tip of the needle was in contact with the bone, the needle pulled approximately 2 mm up the bone. The stylet of each needle was then removed. After negative aspiration of blood with CSF and confirmation of AP as well as oblique view, radiofrequency ablation probe was then inserted at each level. Impedance was then recorded at L3 to be 208, at L4 214, at L5 276, at S1 339 ohm. Motor-evoked potential was then initiated to 1.5 volt without any motor response at each corresponding level. The probe was then removed intact and a total of 6 mL preservative-free 1% lidocaine was injected in divided doses between those 4 levels after negative aspiration of blood with CSF. The radiofrequency ablation probe was then reinserted after confirmation of AP, oblique as well as lateral view. Radiofrequency ablation was then initiated to 80 degrees Celsius for 90 seconds at each level. Once concluded, the probe was then removed intact and a total of 6 mL of preservative-free 0.25% Marcaine with 40 mg Depo-Medrol was injected in divided doses between those 4 levels. The needles were then removed intact. The patient experienced no signs or symptoms of intrathecal, intravascular injection. The patient experienced no paraesthesia. The procedure was completed without any apparent difficulty, any complication. The patient appeared to tolerate well. Sensory as well as motor exam was unchanged from prior to procedure. ASSESSMENT AND PLAN: This is a 65-year-old Female with lumbosacral spondylosis, lumbosacral degenerative disc disease, lumbar facet arthropathy, status post right-sided radiofrequency ablation of the medial branch L3 through S1. The patient will continue her current medications. The patient will follow up in approximately 2 weeks for reevaluation.
[2020-06-09 08:16] VITALS: BP 130/75; BP 145/78; PULSE 73; RESP 16; O2SAT 96
[2020-06-09 08:21] VITALS: BP 135/78; BP 145/78; PULSE 73; RESP 16; TEMP 37; O2SAT 94
[2020-06-09 08:39] VITALS: BP 145/78
== END 2020-06-09 08:42 | disposition home or self-care (01) ==
LOC: SDC 06:33 → AC 06:33
PROVIDERS: PCP Internal Medicine; Referring Provider Anesthesiology Pain Medicine; Visit Provider Anesthesiology Pain Medicine
PROC: (CPT 64635; principal; 2020-06-09 07:15)
DX: M47.816 Spondylosis without myelopathy or radiculopathy, lumbar region (principal); M47.817 Spondylosis without myelopathy or radiculopathy, lumbosacral region; M51.37 Other intervertebral disc degeneration, lumbosacral region; M47.812 Spondylosis without myelopathy or radiculopathy, cervical region; M47.814 Spondylosis without myelopathy or radiculopathy, thoracic region; M51.34 Other intervertebral disc degeneration, thoracic region; M50.30 Other cervical disc degeneration, unspecified cervical region; M54.12 Radiculopathy, cervical region; M54.17 Radiculopathy, lumbosacral region; M48.9 Spondylopathy, unspecified; M79.7 Fibromyalgia; J45.909 Unspecified asthma, uncomplicated; Z79.891 Long term (current) use of opiate analgesic; Z86.711 Personal history of pulmonary embolism
CPT/HCPCS: 64635; 64636 ×2; 36416; 72100; 76000; 85610; J7120; A4216

== ENCOUNTER → 2020-06-20 10:18 | Outpatient (CLI) | payer MEDICARE, SELFPAY ==
[2020-06-09 06:56] VITALS: BMI 34.8
== END ==
PROVIDERS: PCP Internal Medicine; Referring Provider Internal Medicine; Visit Provider Internal Medicine
DX: R00.2 Palpitations (principal)
CPT/HCPCS: 93225; 93226

== ENCOUNTER → 2020-06-23 10:12 | Outpatient (CLI) | payer MEDICARE, SELFPAY ==
[2020-06-09 06:56] VITALS: BMI 34.8
--- NOTE | 2020-06-23 10:14 | ECHOD_ITS ---
Reason For Study: PALPITATIONS Procedure This was a 2D Doppler, Color Flow transthoracic echocardiogram. The exam was of adequate technical quality. Exam performed in department. Left Ventricle Normal LV size. Left ventricular systolic function is normal. The estimated ejection fraction is 65 %. No evidence for diastolic dysfunction. No regional wall motion abnormalities noted. Right Ventricle Normal RV size. Normal systolic function. Atria Normal left atrium. Normal right atrium. No doppler evidence for ASD. Mitral Valve There is no mitral annular calcification. Normal mitral valve. Trivial mitral valve insufficiency. Tricuspid Valve Normal tricuspid valve. Trivial tricuspid valve insufficiency. Right ventricular systolic pressure estimated to be 25 mmHg. Aortic Valve Trisinus/trileaflet aortic valve. Normal aortic valve. Pulmonic Valve The pulmonic valve is not well visualized. Great Vessels Normal sized aortic root. Pericardium/Pleural No pericardial effusion. MMode/2D Measurements & Calculations LVIDd: 4.6 cm IVSd: 0.80 cm Ao root diam: 3.1 cm LVIDs: 3.1 cm LVPWd: 0.91 cm RVDd: 1.9 cm FS: 31.9 % LAV(MOD-bp): 38.5 ml EDV(MOD-sp4): 67.9 ml EDV(MOD-sp2): 80.3 ml LAV(MOD-bp) Indexed: 19.9 ml/m2 ESV(MOD-sp4): 26.2 ml EF(MOD-sp2): 68.7 % LAV(MOD-sp2): 38.0 ml EF(MOD-sp4): 61.3 % LAV(MOD-sp4): 37.2 ml SV(MOD-sp4): 41.6 ml SV(MOD-sp2): 55.2 ml LA A4 area: 14.8 cm2 LA dimension(2D): 3.5 cm RA A4 area: 11.0 cm2 Time Measurements MV dec time: 0.22 sec Doppler Measurements & Calculations MV E max tony: 82.5 cm/sec Lat Peak E' Tony: 8.8 cm/sec Med Peak E' Tony: 7.3 cm/sec MV A max tony: 103.6 cm/sec E/E' lat: 9.3 E/E' med: 11.3 MV E/A: 0.80 Ao V2 max: 152.4 cm/sec LV V1 max: 120.6 cm/sec PA V2 max: 80.7 cm/sec Ao max P.3 mmHg LV V1 max P.8 mmHg TR max tony: 236.3 cm/sec TR max P.3 mmHg Interpretation Summary Left ventricular systolic function is normal. The estimated ejection fraction is 65 %. Trivial mitral valve insufficiency. Trivial tricuspid valve insufficiency. Right ventricular systolic pressure estimated to be 25 mmHg. No evidence for diastolic dysfunction. Ordering Physician: Sarah Ch Referring Physician: Sarah Ch Performed By: Dee Sampson, CYNTHIA, RVT
== END ==
PROVIDERS: PCP Internal Medicine; Referring Provider Internal Medicine; Visit Provider Internal Medicine
DX: R00.2 Palpitations (principal)
CPT/HCPCS: 93306; C8929

== ENCOUNTER 2020-08-27 12:40 | Outpatient (CLI) | payer MEDICARE, SELFPAY | END 2020-08-27 16:55 | disposition home or self-care (01) | LOC: MEDOUTP 12:42 | PROVIDERS: PCP Internal Medicine; Referring Provider Internal Medicine; Visit Provider Internal Medicine | DX: Z45.2 Encounter for adjustment and management of vascular access device (principal); Z95.828 Presence of other vascular implants and grafts | CPT/HCPCS: 96523; A4216 ==

== ENCOUNTER → 2021-02-03 12:56 | Outpatient (CLI) | payer MEDICARE, SELFPAY | PROVIDERS: PCP Internal Medicine; Referring Provider Internal Medicine; Visit Provider Internal Medicine | DX: Z95.828 Presence of other vascular implants and grafts (principal) | CPT/HCPCS: 96523 ==

== ENCOUNTER → 2021-03-25 13:04 | Outpatient (CLI) | payer MEDICARE, SELFPAY | PROVIDERS: PCP Internal Medicine; Referring Provider Internal Medicine; Visit Provider Internal Medicine | DX: Z45.2 Encounter for adjustment and management of vascular access device (principal); R50.9 Fever, unspecified | CPT/HCPCS: 36591; 87040; A4216 ==

== ENCOUNTER → 2021-06-01 15:21 | Outpatient (CLI) | payer MEDICARE, SELFPAY ==
--- NOTE | 2021-06-01 15:23 | BI_ITS ---
MAMMOGRAPHY - BILATERAL SCREENING REASON FOR EXAM: Female, 66 years old. Routine annual screening examination. PERTINENT HISTORY: Aunt with breast cancer. TECHNIQUE: Digital bilateral breast kimberlee (3D mammographic acquisition) in the CC and MLO projections. 2-D mediolateral oblique (MLO) and craniocaudad (CC) views of both breasts were obtained. CAD: Full Field Digital Mammography with Computer Added Detection was performed. COMPARISON: Comparison is made with prior study dated 05/28/2020 and 05/09/2019. FINDINGS: Breast Composition: The breasts are heterogeneously dense, which may obscure small masses. There are no dominant masses or suspicious calcifications. A port is seen in the right and left axillary region. No other significant abnormalities are identified. There has been no significant change since the prior study. BI/SCRN MAMM (CAD)W/KIMBERLEE BILAT IMPRESSION: Stable bilateral screening mammogram. Yearly follow-up mammogram recommended. (A) ASSESSMENT CATEGORY: BIRADS Category 2: Benign. A letter regarding these results will be sent to the patient by the facility within 30 days. Approximately 10% of breast cancers are not detected by mammography. A normal mammogram should not delay biopsy of a clinically suspicious abnormality. [id number] Electronically Signed: Bartolome Patel MD at 10:23 EST , Service support ,
== END ==
PROVIDERS: PCP Internal Medicine; Referring Provider Internal Medicine; Visit Provider Internal Medicine
DX: Z12.31 Encounter for screening mammogram for malignant neoplasm of breast (principal)
CPT/HCPCS: 77063; 77067

== ENCOUNTER 2021-08-12 11:16 | Outpatient (CLI) | payer MEDICARE, SELFPAY ==
--- NOTE | 2021-08-12 11:25 | RAD_ITS ---
STUDY: X-RAY CHEST REASON FOR EXAM: Female, 66 years old. PNEUMONIA/ASTHMA TECHNIQUE: PA and lateral views of the chest. COMPARISON: Comparison is made with prior study 04/03/2020. FINDINGS: Once again, the right and left jorge catheter are seen with the tips in the superior vena cava. These are unchanged. There is hyperinflation of the lungs consistent with chronic obstructive lung disease (COPD). There is no demonstrated pleural abnormality. Normal size heart. Normal mediastinum and yu. Normal visualized pulmonary arteries. Normal visualized aortic arch and descending thoracic aorta. Normal visualized thoracic spine. Normal visualized ribs, clavicles, and shoulders. There is no demonstrated abnormality of the visualized soft tissue structures of the upper abdomen. RAD/Chest PA and Lateral IMPRESSION: Hyperinflation. The lungs are clear. Electronically Signed: Bartolome Patel MD at 12:15 EST ,
== END 2021-08-12 23:59 | disposition home or self-care (01) ==
LOC: RAD 11:19
PROVIDERS: PCP Internal Medicine; Referring Provider Internal Medicine Pulmonary Disease; Visit Provider Internal Medicine Pulmonary Disease
DX: J18.9 Pneumonia, unspecified organism (principal); J45.909 Unspecified asthma, uncomplicated
CPT/HCPCS: 71046

== ENCOUNTER 2021-08-19 14:14 | Outpatient (CLI) | payer MEDICARE, SELFPAY ==
[2021-08-19 15:17] LABS: Absolute Lymphocyte Count 2.95 X10^3/uL (0.83-4.51); Basophil# 0.02 X10^3/uL; Basophil% 0.3 % (0-1); Eosinophil# 0.09 X10^3/uL; Eosinophils% 1.2 % (0-5); Hematocrit 33.6 % (37-47); Hemoglobin 11.3 g/dL (12.0-15.0); Lymphocyte # 2.95 X10^3/ul (0.83-4.51); Mean Corp Hgb Conc 33.6 g/dL (32-36); Mean Corpuscular Hgb 29.5 pg (27.0-32.0); Mean Corpuscular Volume 87.7 fL (81-99); Mean Platelet Vol. 9.5 fl (6.2-12.0); Monocyte# 0.51 X10^3/uL; Monocyte% 6.7 % (0-10); NRBC Flagged by Analyzer 0 % (0-5); Neutrophil # 3.97 X10^3/uL (2.7-7.7); Neutrophil % 52.4 % (47-70); Platelet Count 318 K/mm3 (150-450); RBC Distribution Width CV 14.7 % (11.6-14.6); RBC Distribution Width SD 46.8 fl (35.1-43.9); Red Blood Count 3.83 M/mm3 (4.2-5.4); White Blood Count 7.6 K/mm3 (4.4-11.0)
[2021-08-19 15:55] LABS: ALB/GLOB Ratio 1.2 RATIO (0.9-2.4); AST(SGOT) 14 U/L (15-37); Alanine Aminotransfer ALT/SGPT 19 U/L (13-56); Albumin, Serum 3.7 g/dL (3.2-5.0); Alkaline Phosphatase 80 U/L (45-117); Anion Gap 6 (5-15); BUN 20 mg/dL (7-18); BUN/Creat Ratio 23.8 RATIO (10-20); Calcium,Total 8.7 mg/dL (8.5-10.1); Chloride 104 mmol/L (98-107); Creatinine, Serum 0.84 mg/dL (0.55-1.02); EST Glomerular Filtration Rate 72 mL/min (>60); Est Glom Filt Rate - Afr Amer 87 mL/min (>60); Glucose 95 mg/dL (74-106); Potassium 4.1 mmol/L (3.5-5.1); Protein, Total 6.7 g/dL (6.4-8.2); Sodium Level 139 mmol/L (136-145)
== END 2021-08-19 23:59 | disposition home or self-care (01) ==
LOC: MEDOUTP 14:14
PROVIDERS: PCP Internal Medicine; Referring Provider Internal Medicine; Visit Provider Internal Medicine
DX: U07.1 COVID-19 (principal); M06.4 Inflammatory polyarthropathy
CPT/HCPCS: 36591; 80053; 85025; 86769; A4216

== ENCOUNTER 2021-08-31 13:57 | Outpatient (CLI) | payer MEDICARE, SELFPAY ==
[2021-08-31 14:10] VITALS: BP 155/72; PULSE 74; RESP 16; TEMP 36.3; O2SAT 100
[2021-08-31] MEDS: 0.9% NaCl Peripheral Flush Adult/Peds IV (14:57)
[2021-08-31 15:00] VITALS: BP 149/77; PULSE 73; RESP 16
== END 2021-08-31 23:59 | disposition home or self-care (01) ==
LOC: MEDOUTP 13:57
PROVIDERS: PCP Internal Medicine; Referring Provider Internal Medicine; Visit Provider Internal Medicine
DX: D64.9 Anemia, unspecified (principal)
CPT/HCPCS: 96365; J1756; J7040; A4216

== ENCOUNTER 2021-09-01 13:57 | Outpatient (CLI) | payer MEDICARE, SELFPAY ==
[2021-09-01] MEDS: 0.9% NaCl Peripheral Flush Adult/Peds IV ×2 (14:05→14:54)
[2021-09-01 14:13] VITALS: BP 121/76; PULSE 66; RESP 16; TEMP 36.6; O2SAT 98; BMI 50.1
[2021-09-01 14:57] VITALS: BP 128/77; PULSE 65; RESP 16; TEMP 36.7; O2SAT 96
== END 2021-09-01 23:59 | disposition home or self-care (01) ==
LOC: MEDOUTP 13:57
PROVIDERS: PCP Internal Medicine; Referring Provider Internal Medicine; Visit Provider Internal Medicine
DX: D50.8 Other iron deficiency anemias (principal)
CPT/HCPCS: 96365; J1756; J7040; A4216

== ENCOUNTER 2021-09-02 14:11 | Outpatient (CLI) | payer MEDICARE, SELFPAY ==
[2021-09-02] MEDS: 0.9% NaCl IVPB Med Flush (250 mL) 15 ML IV (14:23)
[2021-09-02] MEDS: 0.9% NaCl Peripheral Flush Adult/Peds IV ×2 (14:23→14:47)
[2021-09-02 14:33] VITALS: BP 140/65; PULSE 80; RESP 16; TEMP 36.4; O2SAT 100
[2021-09-02 14:52] VITALS: BP 137/62; PULSE 81
== END 2021-09-02 23:59 | disposition home or self-care (01) ==
LOC: MEDOUTP 14:11
PROVIDERS: PCP Internal Medicine; Referring Provider Internal Medicine; Visit Provider Internal Medicine
DX: D50.8 Other iron deficiency anemias (principal)
CPT/HCPCS: 96365; J1756; J7050; A4216

== ENCOUNTER 2021-09-02 22:09 | Emergency (ER) | payer OTHER, MEDICARE, SELFPAY ==
[2021-09-02 22:10] VITALS: BP 161/86; PULSE 100; RESP 19; TEMP 36.4; O2SAT 97; BMI 34.7
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
--- NOTE | 2021-09-02 22:22 | EKG12_ITS ---
Test Reason : DYSRHYTHMIA Blood Pressure : / mmHG Vent. Rate : 104 BPM Atrial Rate : 104 BPM P-R Int : 172 ms QRS Dur : 096 ms QT Int : 348 ms P-R-T Axes : 071 -08 091 degrees QTc Int : 457 ms Sinus tachycardia Otherwise normal ECG Confirmed by JACI DURAN, LATISHA ([id number]), editorial cartoonist NEERAJ BELCHER ([id number]) on 09/03/2021 2:05:48 PM Referred By: JOSE Confirmed By:ALVARO BEATTY MD
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
[2021-09-02] MEDS: fentaNYL 100 MCG/2 ML Ampul 50 MCG IV (22:35)
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
[2021-09-02] MEDS: 0.9% Normal Saline 1,000 ML 1000 ML IV (22:36)
[2021-09-02 22:47] LABS: Absolute Lymphocyte Count 2.25 X10^3/uL (0.83-4.51); Absolute Neutrophil Count 2.8 X10^3/uL (2.0-7.7); Basophil# 0.01 X10^3/uL; Basophil% 0.2 % (0-1); Eosinophil# 0.22 X10^3/uL; Eosinophils% 3.7 % (0-5); Hematocrit 33.2 % (37-47); Hemoglobin 10.9 g/dL (12.0-15.0); Lymphocyte # 2.25 X10^3/ul (0.83-4.51); Lymphocyte % 37.8 % (19-41); Mean Corp Hgb Conc 32.8 g/dL (32-36); Mean Corpuscular Hgb 28.9 pg (27.0-32.0); Mean Corpuscular Volume 88.1 fL (81-99); Mean Platelet Vol. 10.2 fl (6.2-12.0); Monocyte# 0.56 X10^3/uL; Monocyte% 9.4 % (0-10); NRBC Flagged by Analyzer 0 % (0-5); Neutrophil # 2.81 X10^3/uL (2.7-7.7); Neutrophil % 47.2 % (47-70); Platelet Count 265 K/mm3 (150-450); RBC Distribution Width CV 14.6 % (11.6-14.6); RBC Distribution Width SD 46.5 fl (35.1-43.9); Red Blood Count 3.77 M/mm3 (4.2-5.4)
[2021-09-02 22:56] LABS: International Normalized Ratio 3.1; Prothrombin Time (Protime)PT. 30.9 SECONDS (11.7-14.9)
[2021-09-02 23:03] LABS: ALB/GLOB Ratio 1.3 RATIO (0.9-2.4); AST(SGOT) 53 U/L (15-37); Alanine Aminotransfer ALT/SGPT 36 U/L (13-56); Albumin, Serum 3.7 g/dL (3.2-5.0); Alkaline Phosphatase 96 U/L (45-117); Anion Gap 7 (5-15); BUN 16 mg/dL (7-18); Calcium,Total 8.8 mg/dL (8.5-10.1); Chloride 104 mmol/L (98-107); Creatinine, Serum 0.73 mg/dL (0.55-1.02); EST Glomerular Filtration Rate 85 mL/min (>60); Est Glom Filt Rate - Afr Amer 103 mL/min (>60); Estimated Creatinine Clearance 94.63 ml/min; Globulin 2.9 g/dL (2.2-4.2); Glucose 109 mg/dL (74-106); Lipase 273 U/L (73-393); Potassium 3.9 mmol/L (3.5-5.1); Protein, Total 6.6 g/dL (6.4-8.2); Sodium Level 137 mmol/L (136-145)
[2021-09-02 23:13] LABS: Partial Thromboplast Time > 200.0 Seconds (24.1-36.2)
[2021-09-03] MEDS: HYDROcodone Bitartrate/Apap 5/325 Tablet PO (00:27)
[2021-09-03 01:00] VITALS: BP 141/62; PULSE 91; RESP 18; O2SAT 100
== END 2021-09-03 01:02 | disposition home or self-care (01) ==
PROVIDERS: Emergency Provider Emergency Medicine; PCP Internal Medicine; Visit Provider Emergency Medicine
DX: S20.20XA Contusion of thorax, unspecified, initial encounter (principal); S30.1XXA Contusion of abdominal wall, initial encounter; S40.022A Contusion of left upper arm, initial encounter; V43.52XA Car driver injured in collision with other type car in traffic accident, initial encounter; Y92.410 Unspecified street and highway as the place of occurrence of the external cause; J44.9 Chronic obstructive pulmonary disease, unspecified; R07.2 Precordial pain; R51.9 Headache, unspecified; Z79.01 Long term (current) use of anticoagulants; Z86.718 Personal history of other venous thrombosis and embolism; Z98.84 Bariatric surgery status; D50.8 Other iron deficiency anemias
CPT/HCPCS: 96365; 36591; 70450; 71260; 72125; 72128; 74177; 80053; 83690; 85025; 85610; 85730; 93005; 96361; 96374; 99285; J1756; J7030; J7050; Q9967; A4216

== ENCOUNTER 2021-09-08 13:53 | Outpatient (CLI) | payer MEDICARE, SELFPAY ==
[2021-09-08] MEDS: 0.9% NaCl IVPB Med Flush (250 mL) 15 ML IV (14:10)
[2021-09-08 14:17] VITALS: BP 144/54; PULSE 74; RESP 16; TEMP 36.1; O2SAT 97; BMI 34.5
[2021-09-08] MEDS: 0.9% NaCl Peripheral Flush Adult/Peds IV (14:40)
[2021-09-08 14:41] VITALS: BP 147/72; PULSE 75; RESP 16; TEMP 35.9; O2SAT 99
== END 2021-09-08 23:59 | disposition home or self-care (01) ==
LOC: MEDOUTP 13:54
PROVIDERS: PCP Internal Medicine; Referring Provider Internal Medicine; Visit Provider Internal Medicine
DX: D64.9 Anemia, unspecified (principal)
CPT/HCPCS: 96365; J1756; J7050; A4216

== ENCOUNTER 2021-09-09 14:04 | Outpatient (CLI) | payer MEDICARE, SELFPAY ==
[2021-09-09] MEDS: 0.9% NaCl Peripheral Flush Adult/Peds IV ×5 (14:34→15:10)
[2021-09-09 14:39] VITALS: BP 181/88; PULSE 82; RESP 16; TEMP 36.3; O2SAT 98; BMI 34.5
[2021-09-09] MEDS: 0.9% NaCl IVPB Med Flush (250 mL) 15 ML IV (14:44)
[2021-09-09 15:15] VITALS: BP 155/78; PULSE 78; RESP 16; TEMP 36.4; O2SAT 98
== END 2021-09-09 23:59 | disposition home or self-care (01) ==
LOC: MEDOUTP 14:04
PROVIDERS: PCP Internal Medicine; Referring Provider Internal Medicine; Visit Provider Internal Medicine
DX: D64.9 Anemia, unspecified (principal)
CPT/HCPCS: 96365; J1756; J7050; A4216

== ENCOUNTER → 2021-10-28 | Outpatient (CLI) | payer MEDICARE, SELFPAY ==
[2021-10-28 14:21] LABS: D-Dimer Quantitative (DVT/PE) < 0.27 FEU/ug/m (0.27-0.49)
[2021-10-28 14:31] LABS: ALB/GLOB Ratio 1.1 RATIO (0.9-2.4); AST(SGOT) 16 U/L (15-37); Alanine Aminotransfer ALT/SGPT 28 U/L (13-56); Albumin, Serum 3.9 g/dL (3.2-5.0); Alkaline Phosphatase 120 U/L (45-117); Anion Gap 7 (5-15); BUN 17 mg/dL (7-18); BUN/Creat Ratio 20.9 RATIO (10-20); Calcium,Total 9.1 mg/dL (8.5-10.1); Chloride 99 mmol/L (98-107); Creatinine, Serum 0.81 mg/dL (0.55-1.02); EST Glomerular Filtration Rate 75 mL/min (>60); Est Glom Filt Rate - Afr Amer 91 mL/min (>60); Globulin 3.4 g/dL (2.2-4.2); Glucose 86 mg/dL (74-106); Potassium 3.9 mmol/L (3.5-5.1); Protein, Total 7.3 g/dL (6.4-8.2); Sodium Level 137 mmol/L (136-145); Thyroid Stim Hormone (TSH) 0.55 uIU/mL (0.358-3.74); Troponin-I HS 3 pg/mL (3.0-54.0)
== END | disposition home or self-care (01) ==
LOC: LABSPEC 14:00
PROVIDERS: PCP Internal Medicine; Referring Provider Internal Medicine; Visit Provider Internal Medicine
DX: R07.89 Other chest pain (principal)
CPT/HCPCS: 80053; 84443; 84484; 85379

== ENCOUNTER 2021-11-13 12:17 | Emergency (ER) | payer MEDICARE, SELFPAY ==
[2021-11-13 12:18] VITALS: BP 167/141; PULSE 102; RESP 18; TEMP 36.6; O2SAT 100; BMI 34.7
--- NOTE | 2021-11-13 12:27 | CT_ITS ---
STUDY: CT BRAIN WITHOUT CONTRAST REASON FOR EXAM: Female, 66 years old. Head injury due to a fall. Patient is on COUMADIN. RADIATION DOSAGE (If Supplied By Facility): CTDIvol = ( 44.99 ) mGy, DLP = ( 762.36 ) mGycm TECHNIQUE: Transaxial CT imaging of the brain was performed without administration of intravenous contrast material. Individualized dose optimization techniques were used for this CT. COMPARISON: No relevant priors. FINDINGS: Normal soft tissue structures. Normal calvarium. Normal size ventricles and extra-axial spaces for the patient''s age. Normal white matter tracts of the cerebral hemispheres. Normal basal ganglia and thalami. Normal brainstem. Normal cerebellum. There is no intracranial hemorrhage. There are no findings of an acute ischemic infarction. There is minimal mucosal thickening of the ethmoid sinuses. CT/Brain/Head without Contrast IMPRESSION: Normal unenhanced CT scan of the brain. Electronically Signed: Bartolome Patel MD at 13:08 EDT ,
--- NOTE | 2021-11-13 12:28 | EDS_ITS ---
HPI History of Present Illness Chief Complaint: Fall Informant: patient Onset/Context/Timing Onset: Today Current Severity: Mild Maximum Severity: Mild Narrative Narrative: Patient presents after a fall. She was coming to the hospital to have a Holter monitor put on as she has been having some palpitations and few abnormal EKGs. She tripped on her shoe and fell forward. She landed on her right knee and struck her right religion. She is on Coumadin. She was due to have her INR checked today. She denies loss of consciousness. She is able to ambulate after the fall without difficulty. She denies lightheadedness or dizziness prior to the fall. [facility] Medical History Chest pain COPD (chronic obstructive pulmonary disease) Deep venous thrombosis Interstitial lung disease Patent foramen ovale Home Medications amitriptyline 100 mg PO QHS 07/30/13 [History Last Taken 02/21/16] duloxetine 60 mg PO QHS 07/30/13 [History Last Taken 02/21/16] fentanyl 50 mcg TRANSDERM. Q72H 07/30/13 [History Last Taken 05/07/18] montelukast 10 mg PO QHS 07/30/13 [History Last Taken 02/21/16] albuterol sulfate 6.7 g IH PRN PRN 08/29/13 [History Last Taken Unknown] multivitamin with folic acid 1 tab PO DAILY 08/29/13 [History Last Taken Unknown] zolpidem 10 mg PO QHS PRN PRN 08/29/13 [History Last Taken 02/21/16] acetaminophen 650 mg PO Q4H PRN PRN 07/31/15 [History Last Taken Unknown] tizanidine 4 mg PO TID 07/31/15 [History Last Taken 02/04/20 09:00] ascorbic acid (vitamin C) 1,000 mg PO DAILY@0800 09/08/15 [History Last Taken 02/21/16] ibuprofen 400 mg PO BID PRN PRN 09/08/15 [History Last Taken Unknown] calcium carbonate 500 mg PO DAILY@0800 10/20/15 [History Last Taken Unknown] hydrocodone-acetaminophen 1 tab PO Q4H PRN PRN 02/22/16 [History Last Taken Unknown] icicow-klliukpr-kbargcz 48,000 units PO TIDCM 02/23/16 [History Last Taken Unknown] omeprazole 40 mg PO BID 03/17/16 [History Last Taken Unknown] albuterol sulfate 2.5 mg INHALATION Q4H PRN PRN 08/03/17 [History Last Taken 09/05/17] ergocalciferol (vitamin D2) 1,250 mcg (50,000 unit) capsule 50,000 unit PO TUTH 10/09/18 [History Last Taken Unknown] warfarin 4 mg tablet 2.5 mg PO QHS tab 10/09/18 [History Last Taken 01/31/20] mometasone-formoterol HFA 100 mcg-5 mcg/actuation aerosol inhaler 2 puff INHALATION BID PRN 06/04/21 [History Last Taken Unknown] pregabalin 25 mg capsule 25 mg PO BID 06/04/21 [History Last Taken Unknown] Allergy/AdvReac Type Severity Reaction Status Date / Time hydroxychloroquine sulfate Allergy Intermediate Rash Verified 11/13/21 12:20 [From Plaquenil] Penicillins Allergy Intermediate Rash Verified 11/13/21 12:20 adhesive tape Allergy Rash Verified 11/13/21 12:20 erythromycin base Allergy Unknown Verified 11/13/21 12:20 [Erythromycin Base] levofloxacin [From Levaquin] Allergy Unknown Verified 11/13/21 12:20 furosemide [From Lasix] AdvReac pancretitis Verified 11/13/21 12:20 hctz AdvReac Severe Unknown Uncoded 11/13/21 12:20 Family History Mother , age 80 Myocardial infarction beginning age 60's, has had several IL's CAD (coronary artery disease) history of cardiac stents Father , age 65 Cancer pancreatic Grandfather Myocardial infarction Diabetes Surgical History H/O gastric bypass H/O: hysterectomy History of cholecystectomy Hx of jejunostomy Social History Smoking Status: Never smoker alcohol intake: never substance use type: does not use caffeine: Yes Type: coffee Number of servings: 1 what type of physical activity do you participate in: walking frequency: 1-2 times per week duration: 15-30 minutes/day seatbelt use: always do you feel safe at home: Yes ROS ROS ED Constitutional Constitutional ED: Denies chills or fever(s) Eyes Eyes: Denies change in vision ENT ENT ED: Denies sore throat Cardiovascular Cardiovascular: Denies chest pain Respiratory/Chest Respiratory/Chest: Denies cough or dyspnea Gastrointestinal Gastrointestinal: Denies abdominal pain, diarrhea, nausea or vomiting Genitourinary Genitourinary ED: Denies dysuria Musculoskeletal Musculoskeletal: Reports arthralgias; Denies back pain or neck pain Integumentary Denies rash Neurologic Neurologic: Denies weakness Allergic/Immunologic Allergic/Immunologic ED: Denies urticaria EXAM Physical Exam Const Vital Signs: 11/13/21 12:18 11/13/21 12:25 Temperature 98 F Temperature Source Temporal Pulse Rate 102 H Respiratory Rate 18 Respiratory Effort Normal Blood Pressure 167/141 H Blood Pressure Mean 149 Pulse Ox 100 Oxygen Delivery Method Room Air Positive well nourished and well developed General Appearance ED: well developed HEENT Reports moist mucous membranes HEENT Narrative: Early ecchymosis noted just superior to the right eyebrow. No bony tenderness. Eyes PERRL and EOMs intact bilaterally Neck supple Chest Wall inspection of chest normal and palpation of chest normal Resp normal respiratory effort and clear to auscultation bilaterally Cardio regular rate and regular rhythm GI normal to inspection, nondistended, normoactive bowel sounds and non-tender Palpation: soft Extremity Extremity Narrative: Mild ecchymosis noted to the anterior right knee. No significant edema. Full range of motion. Neuro oriented x3 Sensorium / Orientation: alert Psych mental status grossly normal MDM MDM MDM Narrative Medical decision making narrative: Patient sent for head CT. INR checked. Lab Data Attestation: I reviewed the patient's lab results. Labs: Laboratory Results - last 24 hr 11/13/21 12:43 PT 40.7 H INR 4.3 H* Radiography Diagnostic Testing: Clinical Impression(s) from Imaging Studies Brain CT 11/13/21 12:27 IMPRESSION: Normal unenhanced CT scan of the brain. Electronically Signed: Bartolome Patel MD at 13:08 EDT , Treatment and Re-Evaluation Narrative: INR is supratherapeutic at 4.3. She will hold her Coumadin tonight and take half dose tomorrow night doing her normal dosing. CT scan of the head is unremarkable. Patient will get her Holter monitor placed to be discharged home. Discharge Plan Triage Chief Complaint: Fall ED Provider: Tonia Cifuentes Dx/Rx/DC Orders Clinical Impression: Fall, CHI (closed head injury), Supratherapeutic INR, Contusion of knee Instructions: ED Mechanical Fall, ED Head Injury (Adult) Prescriptions: No Action warfarin 4 mg tablet 2.5 mg PO QHS RF: 0 pregabalin 25 mg capsule 25 mg PO BID RF: 0 Dulera 100-5 mcg/actuation HFA aerosol inhaler 2 puff inhalation BID PRN (Reason: lung disease) RF: 0 montelukast 10 MG tablet 10 mg PO QHS RF: 0 duloxetine 60 MG capsule 60 mg PO QHS RF: 0 fentanyl 50 MCG patch 50 mcg TRANSDERM. Q72H RF: 0 amitriptyline 100 MG tablet 100 mg PO QHS RF: 0 zolpidem 10 MG tablet 10 mg PO QHS PRN PRN (Reason: Sleep) RF: 0 albuterol sulfate 6.7 GM HFA aerosol inhaler 6.7 g IH PRN PRN (Reason: Sob &/Or Wheezing) RF: 0 multivitamin with folic acid 1 TABLET tablet 1 tab PO DAILY RF: 0 acetaminophen 325 MG tablet 650 mg PO Q4H PRN PRN (Reason: Pain) RF: 0 tizanidine 4 MG tablet 4 mg PO TID RF: 0 ascorbic acid (vitamin C) 500 MG tablet 1,000 mg PO DAILY@0800 RF: 0 ibuprofen 200 MG tablet 400 mg PO BID PRN PRN (Reason: Pain) RF: 0 ergocalciferol (vitamin D2) 50,000 unit capsule 50,000 unit PO TUTH RF: 0 calcium carbonate 500 MG tablet 500 mg PO DAILY@0800 RF: 0 hydrocodone-acetaminophen 1 TABLET tablet 1 tab PO Q4H PRN PRN (Reason: Pain) RF: 0 zajzqo-iktsabzi-yrzbvva 1 EACH capsule,delayed release(DR/EC) 48,000 units PO TIDCM RF: 0 omeprazole 40 MG capsule 40 mg PO BID RF: 0 albuterol sulfate 2.5 MG/3 ML solution for nebulization 2.5 mg INHALATION Q4H PRN PRN (Reason: Wheezing) RF: 0 Primary Care Provider: Sarah Ch Referrals: Sarah Ch MD [Primary Care Provider] - Activity Restrictions/Additional Instructions: As discussed, your INR is high at 4.3. Please hold your Coumadin tonight and take half dose tomorrow night. You can then resume your normal dosing. Please have your INR rechecked next week. Disposition Disposition: Home, Self Care
[2021-11-13 12:57] LABS: Prothrombin Time (Protime)PT. 40.7 SECONDS (11.7-14.9)
[2021-11-13 13:05] LABS: International Normalized Ratio 4.3
[2021-11-13 13:31] VITALS: BP 136/77; PULSE 85; RESP 18; O2SAT 96
--- NOTE | 2021-11-13 13:31 | ED.RN ---
Respiratory is at bedside placing holter monitor on pt.
== END 2021-11-13 13:32 | disposition home or self-care (01) ==
PROVIDERS: Emergency Provider Emergency Medicine; PCP Internal Medicine; Visit Provider Emergency Medicine
DX: S00.83XA Contusion of other part of head, initial encounter (principal); J44.9 Chronic obstructive pulmonary disease, unspecified; S80.01XA Contusion of right knee, initial encounter; W18.09XA Striking against other object with subsequent fall, initial encounter; R79.1 Abnormal coagulation profile; R07.89 Other chest pain; R00.2 Palpitations; Z79.01 Long term (current) use of anticoagulants; Z79.899 Other long term (current) drug therapy; Z98.84 Bariatric surgery status
CPT/HCPCS: 70450; 85610; 93225; 93226; 99282

== ENCOUNTER → 2021-11-13 | Outpatient (CLI) | payer MEDICARE, SELFPAY | END | disposition home or self-care (01) | LOC: PSN 12:01 | PROVIDERS: PCP Internal Medicine; Referring Provider Internal Medicine; Visit Provider Internal Medicine | DX: R07.89 Other chest pain (principal) | CPT/HCPCS: 93225; 93226 ==

== ENCOUNTER → 2021-11-17 | Outpatient (CLI) | payer MEDICARE, SELFPAY ==
--- NOTE | 2021-11-17 14:20 | RAD_ITS ---
STUDY: X-RAY - RIGHT KNEE REASON FOR EXAM: Female, 66 years old. RIGHT KNEE PAIN TECHNIQUE: 4 view(s) of the knee. COMPARISON: Comparison is made with prior study dated 09/25/2012. FINDINGS: Normal visualized distal femur. Normal visualized proximal tibia and fibula. Normal proximal tibiofibular articulation. The patient is status post right total knee arthroplasty. There is good alignment. The soft tissue structures are unremarkable. RAD/Knee 4 or More Views IMPRESSION: Status post right knee arthroplasty. There is good alignment. Electronically Signed: Bartolome Patel MD at 14:59 EDT ,
== END | disposition home or self-care (01) ==
LOC: RAD 14:15
PROVIDERS: PCP Internal Medicine; Referring Provider Internal Medicine; Visit Provider Internal Medicine
DX: M25.561 Pain in right knee (principal)
CPT/HCPCS: 73564

== ENCOUNTER → 2022-06-17 | Outpatient (CLI) | payer MEDICARE, SELFPAY ==
--- NOTE | 2022-06-17 13:37 | BI_ITS ---
MAMMOGRAPHY - BILATERAL SCREENING REASON FOR EXAM: Female, 67 years old. Routine annual screening examination. PERTINENT HISTORY: Aunt with breast cancer. TECHNIQUE: Digital bilateral breast kimberlee (3D mammographic acquisition) in the CC and MLO projections. 2-D mediolateral oblique (MLO) and craniocaudad (CC) views of both breasts were obtained. CAD: Full Field Digital Mammography with Computer Added Detection was performed. COMPARISON: Comparison is made with prior study dated 06/01/2021 and 05/28/2020. FINDINGS: Breast Composition: The breasts are heterogeneously dense, which may obscure small masses. There are no dominant masses or suspicious calcifications. Stable small benign-appearing bilateral axillary lymph nodes. No other significant abnormalities are identified. There has been no significant change since the prior study. BI/SCRN MAMM (CAD)W/KIMBERLEE BILAT IMPRESSION: Stable bilateral screening mammogram. Yearly follow-up mammogram recommended. (A) ASSESSMENT CATEGORY: BIRADS Category 2: Benign. A letter regarding these results will be sent to the patient by the facility within 30 days. Approximately 10% of breast cancers are not detected by mammography. A normal mammogram should not delay biopsy of a clinically suspicious abnormality. [id number] Electronically Signed: Bartolome Patel MD at 10:03 EST ,
--- NOTE | 2022-06-17 13:47 | BD_ITS ---
STUDY: DUAL ENERGY X-RAY ABSORPTIOMETRY / DXA REASON FOR EXAM: Female, 67 years old. [id number] TECHNIQUE: Bone Mineral Density (BMD) measurements of lumbar spine and bilateral hips were obtained. COMPARISON: Comparison is made with prior study dated 05/28/2020. FINDINGS: Lumbar Spine (L1-L4): g/cm2 (0.919) / T-score (-1.2) / Z-score (0.7) Findings are suggestive of osteopenia with a low fracture risk. Left Femur Total: g/cm2 (0.854) / T-score (-0.7) / Z-score (0.6) Left Femoral Neck: g/cm2 (0.677) / T-score (-1.6) / Z-score (0.0) Right Femur Total: g/cm2 (0.843) / T-score (-0.8) / Z-score (0.5) Right Femoral Neck: g/cm2 (0.706) / T-score (-1.3) / Z-score (0.3) The T-Scores on the most recent prior examination were: Lumbar Spine (L1-L4): There has been worsening of bone density since the previous examination. Left Femur Total: which represents a worsening of 2.8%. Right Femur Total: which represents an improvement of 1.3%. BD/Dexa Bone Density Study IMPRESSION: The patient is considered osteopenic as outlined below according to World Rogers Organization (WHO) criteria with a moderate fracture risk. There has been worsening of bone density since the previous examination. Reference Information: The T-score is the number of standard deviations above or below the standard which is normal for young adults at their peak bone mineral density. The World Health Organization (WHO) interprets the T-scores as follows: Above -1 Normal bone density Between -1 and -2.5 Osteopenia Equal to / or below -2.5 Osteoporosis As a practical clinical guideline, osteopenia may be graded as follows: Mild -1 through -1.5 Moderate -1.6 through -2.0 Severe -2.1 through -2.4 The Z-score is the number of standard deviations above or below age-matched controls. A Z-score of less than -1.5 would be considered abnormal. References: 1. NIH Osteoporosis and Related Bone Diseases www osteo.org 2. International Society for Clinical Densitometry www iscd.org 3. National Osteoporosis Foundation www nof.org Electronically Signed: Bartolome Patel MD at 9:15 EST ,
== END | disposition home or self-care (01) ==
LOC: OPBD 13:34
PROVIDERS: PCP Internal Medicine; Visit Provider Internal Medicine
DX: Z12.31 Encounter for screening mammogram for malignant neoplasm of breast (principal); Z80.3 Family history of malignant neoplasm of breast; Z78.0 Asymptomatic menopausal state
CPT/HCPCS: 77063; 77067; 77080

== ENCOUNTER → 2022-06-17 | Outpatient (CLI) | payer MEDICARE, SELFPAY | END | disposition home or self-care (01) | LOC: MEDOUTP 14:18 | PROVIDERS: PCP Internal Medicine; Referring Provider Internal Medicine; Visit Provider Internal Medicine | DX: Z12.31 Encounter for screening mammogram for malignant neoplasm of breast (principal); Z45.2 Encounter for adjustment and management of vascular access device; Z95.828 Presence of other vascular implants and grafts; Z78.0 Asymptomatic menopausal state | CPT/HCPCS: 77063; 77067; 77080; 96523 ==

== ENCOUNTER → 2022-09-01 | Outpatient (CLI) | payer MEDICARE, SELFPAY ==
--- NOTE | 2022-09-01 14:09 | RAD_ITS ---
STUDY: X-RAY CHEST REASON FOR EXAM: Female, 67 years old. Cough TECHNIQUE: PA and lateral views of the chest. COMPARISON: Comparison is made with prior study dated 08/12/2021. FINDINGS: Bilateral jorge catheter seen with the tip in the proximal portion of the superior vena cava. There now is evidence of a patchy infiltrate in the left lung as well as in the right lower lobe and right perihilar region. Bilateral pulmonary infiltrates should be ruled out. There is no demonstrated pleural abnormality. Normal size heart. Normal mediastinum and yu. Normal visualized pulmonary arteries. Normal visualized aortic arch and descending thoracic aorta. Normal visualized thoracic spine. Normal visualized ribs, clavicles, and shoulders. Surgical clips are seen in the left upper quadrant. RAD/Chest PA and Lateral IMPRESSION: Increased markings with areas of confluence in both lungs as described worse in the left hemithorax. Bilateral pneumonia should be ruled out. Radiographic follow-up recommended. Electronically Signed: Bartolome Patel MD at 15:06 EST ,
== END | disposition home or self-care (01) ==
PROVIDERS: PCP Internal Medicine; Visit Provider Internal Medicine
DX: R05.9 Cough, unspecified (principal)
CPT/HCPCS: 71046

== ENCOUNTER → 2022-10-11 | Outpatient (CLI) | payer MEDICARE, SELFPAY ==
[2022-10-11] MEDS: 0.9% NaCl IVPB Med Flush (250 mL) 15 ML IV (13:26)
[2022-10-11 13:27] VITALS: BP 117/45; PULSE 67; RESP 16; TEMP 36.2; O2SAT 100; BMI 35.9
[2022-10-11 15:21] VITALS: BP 136/76; PULSE 66; RESP 16; O2SAT 100
[2022-10-11] MEDS: 0.9% NaCl Peripheral Flush Adult/Peds IV (15:25)
--- NOTE | 2022-10-11 15:40 | RAD_ITS ---
EXAM: XR CHEST, 2 VIEWS CLINICAL INDICATION: UNSPECIFIED BACTERIAL PNEUMONIA TECHNIQUE: Frontal and lateral views of the chest. This report was created using [employer] report generation technology. COMPARISON: 09/01/2022 FINDINGS: LUNGS AND PLEURAL SPACES: Unremarkable. No consolidation or edema. No pneumothorax. No effusion. HEART: Unremarkable. Cardiac silhouette not enlarged. MEDIASTINUM: Central airways and mediastinal contour are unremarkable. BONES/JOINTS: Unremarkable. SOFT TISSUES: Unremarkable. TUBES, LINES AND DEVICES: Bilateral Port-A-Cath are unchanged. RAD/Chest PA and Lateral IMPRESSION: No acute findings in the chest. Electronically Signed: Miguel Angel Wakefield MD at 19:41 EDT ,
== END | disposition home or self-care (01) ==
PROVIDERS: PCP Internal Medicine; Referring Provider Internal Medicine; Visit Provider Internal Medicine
DX: D50.9 Iron deficiency anemia, unspecified (principal); J15.9 Unspecified bacterial pneumonia
CPT/HCPCS: 96365; 96366; 71046; J1756; J7050; A4216

== ENCOUNTER 2022-10-25 13:06 | Outpatient (CLI) | payer MEDICARE, SELFPAY ==
[2022-10-25 13:14] VITALS: BP 126/78; PULSE 66; RESP 16; TEMP 36.2; O2SAT 98; BMI 37.2
[2022-10-25] MEDS: 0.9 % NaCl (Sterile) Posiflush 10 mL IV (13:19)
[2022-10-25] MEDS: 0.9% NaCl IVPB Med Flush (250 mL) 15 ML IV (13:19)
[2022-10-25 15:22] VITALS: BP 120/65; PULSE 63; RESP 16; TEMP 36.4; O2SAT 99
[2022-10-25] MEDS: 0.9% NaCl VAD Flush IV (15:22)
== END 2022-10-25 13:07 | disposition home or self-care (01) ==
PROVIDERS: PCP Internal Medicine; Referring Provider Internal Medicine; Visit Provider Internal Medicine
DX: D50.9 Iron deficiency anemia, unspecified (principal)
CPT/HCPCS: 96365; 96366; J1756; J7050; A4216

== ENCOUNTER → 2022-11-17 | Outpatient (CLI) | payer MEDICARE, SELFPAY ==
--- NOTE | 2022-11-17 15:45 | RAD_ITS ---
INDICATION: PAIN EXAMINATION/TECHNIQUE: X-RAY - RIGHT XR Shoulder Min 2 Views COMPARISON: Chest radiograph 10/11/2022. Chest CT 09/02/2021. FINDINGS: 4 views of the right shoulder. BONES: Normal anatomic alignment without evidence of fracture or subluxation. No concerning bony lesion or abnormal sclerosis to suggest lesion. JOINTS: Chronic glenoid mild degenerative change. SOFT TISSUES: Bilateral chest port catheter tips overlie cavoatrial junction. RAD/Shoulder min 2 Views IMPRESSION: Degenerative change of the right shoulder without acute osseous abnormality. Electronically Signed: Barry Florez MD at 3:54 EDT ,
[2022-11-17 15:47] LABS: Absolute Lymphocyte Count 1.33 X10^3/uL (0.83-4.51); Absolute Neutrophil Count 2.5 X10^3/uL (2.0-7.7); Basophil# 0.02 X10^3/uL; Basophil% 0.5 % (0-1); Eosinophil# 0.24 X10^3/uL; Eosinophils% 5.5 % (0-5); Hematocrit 34.9 % (37-47); Hemoglobin 11.4 g/dL (12.0-15.0); Lymphocyte # 1.33 X10^3/ul (0.83-4.51); Lymphocyte % 30.2 % (19-41); Mean Corp Hgb Conc 32.7 g/dL (32-36); Mean Corpuscular Hgb 28.7 pg (27.0-32.0); Mean Corpuscular Volume 87.9 fL (81-99); Mean Platelet Vol. 9.1 fl (6.2-12.0); Monocyte# 0.31 X10^3/uL; NRBC Flagged by Analyzer 0 % (0-5); Neutrophil # 2.49 X10^3/uL (2.7-7.7); Neutrophil % 56.6 % (47-70); Platelet Count 341 K/mm3 (150-450); RBC Distribution Width SD 51.9 fl (35.1-43.9); Red Blood Count 3.97 M/mm3 (4.2-5.4); White Blood Count 4.4 K/mm3 (4.4-11.0)
[2022-11-17 16:01] LABS: Nucleated Red Bld Cells,Manual 4.4 % (0-5)
[2022-11-17 16:06] LABS: ALB/GLOB Ratio 1.1 RATIO (0.9-2.4); AST(SGOT) 20 U/L (15-37); Alanine Aminotransfer ALT/SGPT 23 U/L (13-56); Albumin, Serum 3.4 g/dL (3.2-5.0); Alkaline Phosphatase 111 U/L (45-117); Amylase 71 U/L (25-115); Anion Gap 6 (5-15); BUN 9 mg/dL (7-18); Calcium,Total 8.9 mg/dL (8.5-10.1); Chloride 104 mmol/L (98-107); Creatinine, Serum 0.64 mg/dL (0.55-1.02); EST Glomerular Filtration Rate 98 mL/min (>60); Est Glom Filt Rate - Afr Amer 119 mL/min (>60); Globulin 3.2 g/dL (2.2-4.2); Glucose 122 mg/dL (74-106); LDH 173 U/L (84-246); Lipase 61 U/L (13-75); Protein, Total 6.6 g/dL (6.4-8.2); Sodium Level 137 mmol/L (136-145)
[2022-11-18 13:11] LABS: Erythrocyte Sedimentation Rate 26 mm/hr (0-30)
[2022-11-19 15:08] LABS: Endomysial Antibody IgA Negative (Negative); Immunoglobulin A 109 mg/dL (87-352); t-Transglutaminase IgA <2 U/mL (0-3)
[2022-11-19 16:09] LABS: Anti-Centromere B Ab <0.2 AI (0.0-0.9); Anti-Chromatin <0.2 AI (0.0-0.9); Anti-Jo <0.2 AI (0.0-0.9); Anti-Scleroderma-70 AB <0.2 AI (0.0-0.9); Anti-dsDNA Ab <1 IU/mL (0-9); RNP Ab <0.2 AI (0.0-0.9); SJOGREN'S Anti-SS-A test < 0.2 AI (0.0-0.9); SJOGREN'S Anti-SS-B test < 0.2 AI (0.0-0.9); Smith Ab <0.2 AI (0.0-0.9)
[2022-11-23 10:09] LABS: Albumin 3.6 g/dL (2.9-4.4); Alpha-1-Globulins 0.3 g/dL (0.0-0.4); Alpha-2-Globulins 0.8 g/dL (0.4-1.0); Cytoplasmic Ab (C-ANCA) <1:20 titer (Neg:<1:20); Gamma Globulin 0.6 g/dL (0.4-1.8); Immunoglobulin A 105 mg/dL (87-352); Immunoglobulin E 78 IU/mL (6-495); Immunoglobulin G 670 mg/dL (586-1602); Immunoglobulin M 48 mg/dL (26-217); PROEL- TOTAL PROTEIN 6.1 g/dL (6.0-8.5); Perinuclear Ab (P-ANCA) <1:20 titer (Neg:<1:20)
== END | disposition home or self-care (01) ==
LOC: LAB 14:57 → PAVLAB 15:02 → MEDOUTP 15:13 → RAD 15:38
PROVIDERS: Internal Medicine Gastroenterology; PCP Internal Medicine; Referring Provider Anesthesiology Pain Medicine; Visit Provider Anesthesiology Pain Medicine
DX: M25.511 Pain in right shoulder (principal)
CPT/HCPCS: 36415; 36591; 73030; 80053; 82150; 82784; 82785; 83516; 83615; 83690; 84165; 85025; 85652; 86140; 86225; 86235; 86255; 86256; 86334; A4216

== ENCOUNTER → 2022-11-24 | Outpatient (CLI) | payer MEDICARE, SELFPAY ==
[2022-11-30 20:07] LABS: Pancreatic Elastase, Fecal 58 (>200)
[2022-12-03 18:08] LABS: Calprotectin, Stool 266 ug/g (0-120); Fats, Neutral Normal (.); Fats, Total Normal (.)
== END | disposition home or self-care (01) ==
PROVIDERS: PCP Internal Medicine; Referring Provider Internal Medicine Gastroenterology; Visit Provider Internal Medicine Gastroenterology
DX: K86.1 Other chronic pancreatitis (principal)
CPT/HCPCS: 82274; 82653; 82705; 83630; 83993; 87177; 87209; 87329; 87493

== ENCOUNTER → 2022-12-07 | Outpatient (CLI) | payer MEDICARE, SELFPAY ==
[2022-12-07 16:47] LABS: Prothrombin Time (Protime)PT. 13.4 SECONDS (11.7-14.9)
== END | disposition home or self-care (01) ==
LOC: LAB 15:06
PROVIDERS: PCP Internal Medicine; Referring Provider Anesthesiology Pain Medicine; Visit Provider Anesthesiology Pain Medicine
DX: Z01.818 Encounter for other preprocedural examination (principal); Z79.01 Long term (current) use of anticoagulants
CPT/HCPCS: 36415; 85610

== ENCOUNTER → 2022-12-21 | Outpatient (CLI) | payer MEDICARE, SELFPAY ==
--- NOTE | 2022-12-21 13:33 | CT_ITS ---
EXAM: CT Abdomen And Pelvis WO/W Contrast Injection HISTORY: pancreatitis, IBD TECHNIQUE: Routine protocol CT abdomen pelvis. IV Contrast: Oral Readi-CAT . Oral Contrast: with. Sagittal and coronal images were reconstructed. Precontrast scan through the upper abdomen also obtained. RADIATION DOSAGE (If Supplied By Facility): CTDIvol = ( 18.17 ) mGy, DLP = ( 1525.00 ) mGycm Individualized dose optimization techniques were used for this CT. COMPARISON: CT abdomen and pelvis 09/02/2021, images only, no report. LIMITATIONS: None. FINDINGS: LOWER CHEST: Unremarkable. LIVER: Fatty infiltration. GALLBLADDER/BILE DUCTS: Gallbladder surgically absent. PANCREAS: Unremarkable. No adjacent inflammatory changes or fluid collection SPLEEN: Unremarkable. ADRENAL GLANDS: Unremarkable. KIDNEYS / URETERS: Unremarkable. BOWEL / MESENTERY: Surgical clips upper and left mid abdomen post gastric bypass. Suggestion of asymmetric wall thickening at the site of the sutures distal small bowel anastomosis in the left lower abdomen, which may be related to postsurgical distortion. This was not clearly present on the prior study although was more focally distended with contents on the prior. No adjacent stranding. No bowel obstruction. Large amount stool throughout the colon especially the transverse and descending. APPENDIX: Not identified. Possibly surgically absent. PERITONEUM: No free air. No free fluid. VESSELS: Abdominal aorta is normal caliber. RETROPERITONEUM: Unremarkable. REPRODUCTIVE ORGANS: Uterus not identified. BLADDER: Unremarkable. ABDOMINAL WALL: Unremarkable. BONES: Degenerative changes lumbar spine with minimal anterolisthesis L4-5. OTHER: None. CT/CT Abd/Pelvis W/WO Contrast IMPRESSION: Questionable asymmetric wall thickening of the distal small bowel at the level of the distal small bowel anastomosis may be postsurgical change, inflammatory focal enteritis is not entirely excluded. No bowel obstruction. Large amount of colonic stool. Electronically Signed: Dee Alvarado MD at 17:42 EDT ,
[2022-12-21] MEDS: 0.9% Saline Lock 10 ML Syringe IV (14:25)
[2022-12-21 14:26] LABS: CREATININE FINGERSTICK < 0.9 mg/dL (0.55-1.02); EGFR FINGERSTICK > 60.0000 mL/min (>60)
== END | disposition home or self-care (01) ==
PROVIDERS: PCP Internal Medicine; Referring Provider Internal Medicine Gastroenterology; Visit Provider Internal Medicine Gastroenterology
DX: K86.1 Other chronic pancreatitis (principal)
CPT/HCPCS: 74178; Q9967; A4216

== ENCOUNTER 2023-02-01 13:19 | Day surgery (SDC) | payer MEDICARE, SELFPAY ==
--- NOTE | 2023-02-01 | IMM_PTH ---
PATIENT: JOSE J COBIAN LOC: EN U#:[id number] AGE/SX: 67/F ROOM: RE02/01/[address]: Dr. Nahid Kaye DO : 1955 BED: DIS: 02/01/2023 SPEC #: [id number] RECD: 02/03/23 14:34 STATUS: FER REQ #: [id number] [place]: 02/01/23 00:[address]: Nahid Kaye DEPT: IMMUNOHISTOCHEMISTRY RECD BY: Sudha Guzmán ENTERED: 02/03/23 14:35 SP TYPE: IMMUNO OTHR DR: Dr. Sarah Ch MD Tissues: Stomach, NOS Procedures: H Pylori (initial) PHYSICIAN & INSTITUTION [place] [id number] SPECIMEN INFORMATION: Tissue Source: Anastomosis Clinical Info: Chronic pancreatitis Specimen Number: [id number] CPT code: 87714 METHODOLOGY: Deparaffinized sections of prefer/formalin-fixed tissue or PAP/DQ stained slides are incubated with monoclonal/polyclonal antibodies/oligonucleotide probes. Localization is made via biotin free immunoperoxidase method. Appropriate controls are performed and reacted as expected. Results on target cell population are indicated in the following table: RESULTS: ANTIBODY / CLONE RESULT H Pylori (polyclonal) negative These tests were developed and their performance characteristics determined by [facility]. They may not have been cleared or approved by the U.S. Food and Drug Administration. The FDA has determined that such clearance or approval is not necessary. The above immunohistochemical/dualISH markers are ordered and reviewed by the Pathologist. INTERPRETATION: Anastomosis, biopsy: Negative for Helicobacter pylori organisms. SJ:saige 02/04/2023
[2023-02-01 13:56] VITALS: BP 188/85; PULSE 93; RESP 16; TEMP 36.7; O2SAT 100; BMI 36.3
[2023-02-01] MEDS: Lactated Ringers 1,000 ML 15 ML IV (14:06)
[2023-02-01] MEDS: 0.9 % NaCl (Sterile) Posiflush 10 mL IV (14:07)
--- NOTE | 2023-02-01 14:30 | COLBX_PTH ---
PATIENT: JOSE J COBIAN LOC: EN U#:[id number] AGE/SX: 67/F ROOM: RE02/01/[address]: Dr. Nahid Kaye DO : 1955 BED: DIS: 02/01/2023 SPEC #: [id number] RECD: 02/02/23 08:11 STATUS: FER FANKhadar #: [id number] [place]: 02/01/23 14:[address]: Nahid Kaye DEPT: SURGICAL PATHOLOGY RECD BY: Kalyani Lynch ENTERED: 02/02/23 09:48 SP TYPE: COLON BX OTHR DR: Dr. Sarah Ch MD Tissues: COLON BIOPSY Procedures: Surgery Specimen Level IV HEADER OPERATION: EGD (MAC) with biopsies and bipolar hemostasis PRE-OP DIAGNOSIS: Chronic pancreatitis TISSUE SUBMITTED: Anastomosis MICROSCOPIC DIAGNOSIS Anastomosis, biopsy: Fragments of gastric mucosa with chronic inflammation and reactive changes. See microscopic description and comment. SJ:saige 02/03/2023 COMMENT The results of immunohistochemistry for Helicobacter pylori will be reported separately ([id number]). MICROSCOPIC DESCRIPTION Slides are reviewed. The specimen shows fragments of gastric mucosa with chronic inflammatory cell infiltrates in the lamina propria consisting of lymphocytes and plasma cells, consistent with mild chronic gastritis. Reactive changes are also noted. GROSS DESCRIPTION Received in fixative is one container labeled with the patient's name and designated anastomosis. The specimen consists of two irregular fragments of light mcknight soft tissue that in aggregate measure 1.0 x 0.5 x 0.1 cm. The specimen is totally submitted in one cassette. / AM:saige 02/02/2023 TC:3 CPT: 43976
--- NOTE | 2023-02-01 14:53 | HP.PCM_ITS ---
History and Physical Date of Admission: 02/01/23 GI Hx pancreatitis s/p jejunostomy 1995 reversed 1997, GERD, history of sphincter stricture. fibromyalgia, osteoarthritis, inflammatory polyarthropathy, asthma, dysthymic, mild cognitive disorder, iron deficiency anemia; lupus. PSH gastric bypass PCP OV 08.16.22 as a chronic f/u notes history of elevated AP, chronic pancreatitis and GERD. *BGI established 11.17.22. GI establishment includes [facility] and most recently with Dr. Harrell. Reports history of pancreatitis since age 37. Recently she has been having difficulty with loose stools that are floating. Gastric bypass was performed to attempt to stimulate her pancreas and was effective; prior to this she was on TPN for management of chronic pancreatitis. Currently taking Creon. FH includes father pancreatic cancer, age 55; mother lupus and myasthenia gravis. ROS Const Constitutional: No anorexia, fatigue, fever(s), weight change or sleep problems Eyes Eyes: No change in vision ENT ENT: No abnormal hearing, difficulty swallowing, mouth lesions, tongue swelling or throat swelling Resp Respiratory: No cough or shortness of breath Cardio Cardiology: No chest pain at rest, chest pain with exertion, shortness of breath or dyspnea on exertion Gastro GI: No difficulty swallowing Genitourinary-Female: No difficulty urinating or burning urination Musc Musculoskeletal: No joint pain, joint swelling, muscle weakness or decreased muscle mass Skin Skin: No hair loss in leg, yellowing of the eye, itchy eyes, rash, skin ulcer or skin swelling Neuro Neurology: No abnormal hearing, abnormal movements, confusion, unsteady gait/balance or memory loss Psych Psychiatric: No anxiety, No confusion and No memory loss Endo Endocrine: No fatigue or weight change Aller/Imm Allergy/Immunologic: No itchy eyes, throat swelling or tongue swelling Javan/Lymp Hematologic/Lymphatic: No easy bleeding, easy bruising or enlarged lymph nodes Exam Const General: cooperative and comfortable Nutritional Appearance: average body habitus and well nourished HENWY Head: normal to inspection Ears: hearing grossly normal bilaterally Nose: external nose normal Face and sinus: normal facial exam Mouth: oral mucosae normal Throat: posterior oropharynx normal Eyes General: appearance normal, both eyes and all related structures Neck Neck: normal visual inspection Chest Chest palpation & inspection: normal inspection of the chest and normal palpation of entire chest wall Resp Effort & Inspection: normal respiratory effort Auscultation: Bilateral: Clear to Auscultation Cardio Palpation: normal PMI Rate: regular rate Rhythm: regular rhythm GI Inspection: normal to inspection Auscultation: normal bowel sounds Percussion: normal to percussion Palpation: no hepatosplenomegaly Skin General: no rashes or lesions noted Neuro General: patient alert Extrem General: normal to inspection Psych Affect: normal affect Quality Reporting Tobacco Screening ([facility] 138) Smoking Status: Never smoker Assessment and Plan Assessment and Plan (1) Chronic pancreatitis: Status: Chronic Plan: Very pleasant 67-year-old with past history of recurrent idiopathic pancreatitis as per the patient. She says she did not have any gene for acute recurrent pancreatitis. She underwent hepaticojejunostomy with partial pancreatectomy as per the patient to prevent recurrent pancreatitis. She has been on pancreatic enzymes for several years with some success. She still getting abdominal pain intermittently with foods despite the increasing amount of Creon therapy. What also alarming is that she has been paying a lot of money for the Creon tablets resulting in the need to not take amount needed on a daily basis to prevent recurrent pancreatitis. She would need to have a stool for alpha-1 antitrypsin checked to see if she is having any signs of protein, nutrition along with having fecal fat, fecal elastase and possible urine check for proteinuria. She should have an IgG4 checked along with a gammaglobulin level, p-ANCA, DESIRAE, ESR, CRP and in the future screening with a CA 19-9 and imaging. Orders: Orders Amylase 11/17/22 K86.1 - Other chronic pancreatitis Comprehensive Metabolic Profil 11/17/22 K86.1 - Other chronic pancreatitis CRP 11/17/22 K86.1 - Other chronic pancreatitis LDH 11/17/22 K86.1 - Other chronic pancreatitis Lipase 11/17/22 K86.1 - Other chronic pancreatitis CBC W/Diff, Automated 11/17/22 K86.1 - Other chronic pancreatitis, R07.2 - Precordial pain Erythrocyte Sed Rate 11/17/22 K86.1 - Other chronic pancreatitis DESIRAE Comprehensive Panel 11/17/22 K86.1 - Other chronic pancreatitis Calprotectin, Stool 11/17/22 K86.1 - Other chronic pancreatitis Fecal Fat, Qualitative 11/17/22 K86.1 - Other chronic pancreatitis OVA+PARA w/Giardia EIA [id number] 11/17/22 K86.1 - Other chronic pancreatitis CDIFF (PCR) 11/17/22 K86.1 - Other chronic pancreatitis Stool Occult Blood iFOB 11/17/22 K86.1 - Other chronic pancreatitis Stool Lactoferrin/WBC 11/17/22 K86.1 - Other chronic pancreatitis ANCA 11/17/22 K86.1 - Other chronic pancreatitis Celiac Disease Profile 11/17/22 K86.1 - Other chronic pancreatitis Immunoglobulins G/A/M/E 11/17/22 K86.1 - Other chronic pancreatitis MARILIA + Protein Elect, Serum 11/17/22 K86.1 - Other chronic pancreatitis Pancreatic Elastase, Fecal 11/17/22 K86.1 - Other chronic pancreatitis Miscellaneous Lab Procedure 11/17/22 K86.1 - Other chronic pancreatitis Medications: Discontinued mometasone-formoterol 100-5 mcg/actuation (Dulera) Discontinued Reason: Order Completed 2 puffs inhalation BID PRN lung disease I have examined the patient and the H&P has been reviewed. There are no clinical changes since date of exam.
[2023-02-01 15:47] VITALS: BP 188/85; PULSE 84; RESP 18; TEMP 36.6; O2SAT 92
--- NOTE | 2023-02-01 15:52 | OP.EGD_ITS ---
Patient Name: Tana Martines Procedure Date: 02/01/2023 3:23 PM Date of : 1955 Age: 67 Procedure: Upper GI endoscopy Indications: Epigastric abdominal pain, Functional Dyspepsia Providers: Nahid Kaye DO Referring MD: Sarah Ch Medicines: Monitored Anesthesia Care Patient Profile: This is a 67 year old female. Refer to note in patient chart for documentation of history and physical. Patient has symptoms of chronic epigastric abdominal pain, chronic dyspepsia and chronic nausea. Complications: No immediate complications. Procedure: Pre-Anesthesia Assessment: - Prior to the procedure, a History and Physical was performed, and patient medications and allergies were reviewed. The patient is competent. The risks and benefits of the procedure and the sedation options and risks were discussed with the patient. All questions were answered and informed consent was obtained. Patient identification and proposed procedure were verified by the physician. Mental Status Examination: normal. Respiratory Examination: clear to auscultation. CV Examination: normal. Prophylactic Antibiotics: The patient does not require prophylactic antibiotics. Prior Anticoagulants: The patient has taken no previous anticoagulant or antiplatelet agents. ASA Grade Assessment: II - A patient with mild systemic disease. After reviewing the risks and benefits, the patient was deemed in satisfactory condition to undergo the procedure. The anesthesia plan was to use monitored anesthesia care (MAC). Immediately prior to administration of medications, the patient was re-assessed for adequacy to receive sedatives. The heart rate, respiratory rate, oxygen saturations, blood pressure, adequacy of pulmonary ventilation, and response to care were monitored throughout the procedure. The physical status of the patient was re-assessed after the procedure. After obtaining informed consent, the endoscope was passed under direct vision. Throughout the procedure, the patient's blood pressure, pulse, and oxygen saturations were monitored continuously. The Endoscope was introduced through the mouth, and advanced to the second part of duodenum. The upper GI endoscopy was accomplished without difficulty. The patient tolerated the procedure well. Scope In: 3:36:39 PM Scope Out: 3:42:04 PM Total Procedure Duration Time 0 hours 5 minutes 25 seconds Findings: Non-severe esophagitis with no bleeding was found 37 to 38 cm from the incisors. Evidence of a Phil-en-Y gastrojejunostomy was found. The gastrojejunal anastomosis was characterized by erythema, a hemorrhagic appearance and ulceration. This was traversed. The djnvf-tl-vzhankz limb was characterized by healthy appearing mucosa. The jejunojejunal anastomosis was characterized by healthy appearing mucosa. The ibqbdaib-xv-iorkyai limb was not examined as it could not be found. Coagulation for hemostasis using heater probe was successful. To prevent bleeding post-intervention, one hemostatic clip was successfully placed. There was no bleeding at the end of the procedure. A single 5 mm sessile polyp with no bleeding and no stigmata of recent bleeding was found in the cardia. The polyp was removed with a hot snare. Resection and retrieval were complete. Verification of patient identification for the specimen was done. Estimated blood loss was minimal. The examined jejunum was normal. Impression: - Non-severe non-erosive esophagitis. - Phil-en-Y gastrojejunostomy with gastrojejunal anastomosis characterized by erythema, a hemorrhagic appearance and ulceration. Treated with a heater probe. Clip was placed. - A single gastric polyp. Resected and retrieved. - Normal examined jejunum. Recommendation: - Discharge patient to home. - Resume previous diet. - Continue present medications. - Await pathology results. Procedure Code(s): --- Professional --- 98110, 59, Esophagogastroduodenoscopy, flexible, transoral; with control of bleeding, any method 21214, 51, Esophagogastroduodenoscopy, flexible, transoral; with removal of tumor(s), polyp(s), or other lesion(s) by snare technique CPT copyright 2017 [employer]. All rights reserved. The codes documented in this report are preliminary and upon music pastor review may be revised to meet current compliance requirements. Nahid Kaye DO 02/01/2023 3:51:44 PM This report has been signed electronically. Number of Addenda: 0 Note Initiated On: 02/01/2023 3:23 PM
--- NOTE | 2023-02-01 15:52 | OP.CCLET_ITS ---
02/01/2023 Sarah Ch Re : Upper GI endoscopy procedure for Tana Martines Dear Dima This procedure was performed on Wednesday, February 01, 2023. My impressions and recommendations are as follows: Impressions : - Non-severe non-erosive esophagitis. - Phil-en-Y gastrojejunostomy with gastrojejunal anastomosis characterized by erythema, a hemorrhagic appearance and ulceration. Treated with a heater probe. Clip was placed. - A single gastric polyp. Resected and retrieved. - Normal examined jejunum. Recommendations : - Discharge patient to home. - Resume previous diet. - Continue present medications. - Await pathology results. My findings are described in the full procedure note, which is enclosed. If I can be of further assistance, please feel free to contact me at . Sincerely, Nahid Kaye, 02/01/2023 3:51:44 PM This report has been signed electronically.
[2023-02-01 15:55] VITALS: BP 155/74; BP 188/85; PULSE 82; RESP 16; O2SAT 100
[2023-02-01 16:00] VITALS: BP 157/82; BP 188/85; PULSE 74; RESP 18; O2SAT 99
[2023-02-01 16:05] VITALS: BP 154/89; BP 188/85; PULSE 74; RESP 18; O2SAT 100
[2023-02-01 16:10] VITALS: BP 149/87; BP 188/85; PULSE 73; RESP 18; TEMP 37.1; O2SAT 96
[2023-02-03 06:32] LABS: INR Fingerstick 1.2; Prothrombin Time Fingerstick 13.2 SEC (11.7-14.9)
== END 2023-02-01 16:35 | disposition home or self-care (01) ==
LOC: EN 13:20 → AC 13:22
PROVIDERS: PCP Internal Medicine; Referring Provider Internal Medicine; Visit Provider Internal Medicine Gastroenterology
PROC: 0DJ08ZZ Inspection of Upper Intestinal Tract, Via Natural or Artificial Opening Endoscopic (ICD-10-PCS; CPT 43235; principal; 2023-02-01 14:25)
DX: K86.1 Other chronic pancreatitis (principal); K31.7 Polyp of stomach and duodenum; Z98.84 Bariatric surgery status; K21.9 Gastro-esophageal reflux disease without esophagitis; Z79.899 Other long term (current) drug therapy; R10.13 Epigastric pain; K20.90 Esophagitis, unspecified without bleeding; K91.89 Other postprocedural complications and disorders of digestive system; K28.4 Chronic or unspecified gastrojejunal ulcer with hemorrhage; Y83.2 Surgical operation with anastomosis, bypass or graft as the cause of abnormal reaction of the patient, or of later complication, without mention of misadventure at the time of the procedure
CPT/HCPCS: 43255; 43251; 36416; 85610; 88305; 88342; J7120; J2405

== ENCOUNTER 2023-03-02 08:09 | Outpatient (CLI) | payer MEDICARE, SELFPAY ==
[2023-03-04 20:24] LABS: Miscellaneous Lab Procedure A
== END 2023-03-02 08:10 | disposition home or self-care (01) ==
PROVIDERS: PCP Internal Medicine; Referring Provider Internal Medicine Gastroenterology; Visit Provider Internal Medicine Gastroenterology
DX: R10.9 Unspecified abdominal pain (principal)
CPT/HCPCS: 36415; 36591; A4216

== ENCOUNTER 2023-03-23 08:20 | Outpatient (CLI) | payer MEDICARE, SELFPAY | END 2023-03-23 08:21 | disposition home or self-care (01) | LOC: MEDOUTP 08:20 | PROVIDERS: PCP Internal Medicine; Referring Provider Internal Medicine; Visit Provider Internal Medicine | DX: Z95.828 Presence of other vascular implants and grafts (principal) | CPT/HCPCS: 96523; A4216 ==

== ENCOUNTER → 2023-04-26 | Outpatient (CLI) | payer MEDICARE, SELFPAY ==
[2023-04-26 16:07] LABS: Troponin-I HS 8 pg/mL (3.0-54.0)
== END | disposition home or self-care (01) ==
LOC: LABSPEC 15:35
PROVIDERS: PCP Internal Medicine; Referring Provider Internal Medicine; Visit Provider Internal Medicine
DX: R07.9 Chest pain, unspecified (principal)
CPT/HCPCS: 84484

== ENCOUNTER 2023-05-15 17:56 | Observation (INO) | payer MEDICARE, SELFPAY ==
--- NOTE | 2023-05-15 17:21 | EKGRS_ITS ---
Test Reason : CP Blood Pressure : / mmHG Vent. Rate : 083 BPM Atrial Rate : 083 BPM P-R Int : 178 ms QRS Dur : 138 ms QT Int : 400 ms P-R-T Axes : 067 -09 106 degrees QTc Int : 470 ms Normal sinus rhythm Left bundle branch block Abnormal ECG When compared with ECG of 02-SEP-2021 22:32, Left bundle branch block is now Present Confirmed by SAUL DURAN, PAUL ([id number]), senior technical editor NEERAJ BELCHER ([id number]) on 05/25/2023 12:49:27 PM Referred By: VICKI Confirmed By:PAUL HUGHES MD
[2023-05-15 17:24] VITALS: BMI 36.6
[2023-05-15 18:15] VITALS: BP 152/76; PULSE 79; RESP 16; TEMP 36.2; O2SAT 99
--- NOTE | 2023-05-15 18:18 | PCM.HP.STD ---
HPI - General General Date of Admission: 05/15/23 HPI Narrative JOSE J COBIAN, is a 68 F who presents to an outside hospital with chest pain. She has had multiple episodes of chest pain and was seen by her headliner installer on 05/05/2023 where the chest pain was accompanied by a new left bundle branch block. At that time she was told to call and schedule for an outpatient echo and stress test and when she did the soonest she could get in was 05/20/2023. She has been having repeated episodes of chest pain though not as bad as it was 2 weeks ago today at [facility] and so EMS was called and they brought her to the outside hospital. She elected to be transferred here because this is where her headliner installer is. No new EKG changes other than that left bundle branch block and her initial troponin was 12 and second troponin went down to 9. After she was excepted to this facility, she drove her own personal vehicle as it would take too long for transfer via EMS per the emergency room at the outside hospital. [facility] Medical History (Updated 05/05/23 @ 14:14 by Chanel MAC, PA) Abdominal pain Abnormal coagulation profile Abnormal echocardiogram Age-related cognitive decline Anemia Arthritis Cardiology follow-up encounter Cervical spine degeneration Cervical spondylosis Chest pain Chest pain Chronic obstructive pulmonary disease (COPD) suggested by initial evaluation Chronic pain Chronic pancreatitis COPD (chronic obstructive pulmonary disease) CRP elevated Deep venous thrombosis Degeneration of intervertebral disc of thoracic region Depression Disc disease, degenerative, lumbar or lumbosacral Elevated alkaline phosphatase level Essential hypertension Fibromyalgia GERD (gastroesophageal reflux disease) Hepatitis History of echocardiogram History of hiatal hernia History of Holter monitoring History of steroid therapy History of stress test Hyponatremia Interstitial lung disease Left bundle branch block 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 current use of anticoagulant Low iron Lumbosacral radiculopathy Lumbosacral spondylosis Non-smoker Osteoarthritis Other intervertebral disc degeneration, lumbosacral region Other iron deficiency anemias Patent foramen ovale Port-A-Cath in place Spondylosis of thoracic region without myelopathy or radiculopathy Trapezius muscle spasm Tremor Vascular catheter fitting or adjustment Wears dentures Wears glasses Home Medications amitriptyline 100 mg tablet 50 mg PO QHS 07/30/13 [History Last Taken 05/14/23] duloxetine 60 mg capsule,delayed release 60 mg PO QHS 07/30/13 [History Last Taken 05/14/23] montelukast 10 mg tablet 10 mg PO QHS 07/30/13 [History Last Taken 05/14/23] albuterol sulfate 90 mcg/actuation aerosol inhaler 6.7 g IH PRN PRN Sob &/Or Wheezing 08/29/13 [History Last Taken 05/14/23] multivitamin with folic acid 400 mcg tablet 1 tab PO DAILY 08/29/13 [History Last Taken 05/15/23] zolpidem 10 mg tablet 10 mg PO QHS PRN PRN Sleep 08/29/13 [History Last Taken 05/14/23] tizanidine 4 mg tablet 4 mg PO TID MUSCLE RELAXER 07/31/15 [History Last Taken 05/15/23] ascorbic acid (vitamin C) 500 mg tablet 1,000 mg PO DAILY@0800 09/08/15 [History Last Taken 05/15/23] ibuprofen 200 mg tablet 400 mg PO BID PRN PRN Pain 09/08/15 [History Last Taken 01/31/23] calcium carbonate 500 mg calcium (1,250 mg) tablet 500 mg PO DAILY@0800 10/20/15 [History Last Taken 05/15/23] omeprazole 40 mg capsule,delayed release 40 mg PO BID 03/17/16 [History Last Taken 05/15/23] albuterol sulfate 2.5 mg/3 mL (0.083 %) solution for nebulization 2.5 mg inhalation Q4H PRN PRN Wheezing 08/03/17 [History Last Taken 05/14/23] ergocalciferol (vitamin D2) 1,250 mcg (50,000 unit) capsule 50,000 unit PO TUTH 10/09/18 [History Last Taken 05/12/23] warfarin 4 mg tablet 2.5 mg PO QHS 10/09/18 [History Last Taken 05/14/23] pregabalin 25 mg capsule 25 mg PO BID 06/04/22 [History Last Taken 05/15/23] fentanyl 25 mcg/hr transdermal patch 1 patch transdermal DAILY 10/25/22 [History Last Taken 05/14/23] hydrocodone-acetaminophen 5-325mg 5mg-325mg 1 tab PO TID 10/25/22 [History Last Taken 05/15/23] yntqsj-kbhtcmrp-bwuwthh 40,000-126,000-168,000 unit capsule, delay rel (Zenpep) See Rx Instructions PO .COMPLEX #180 caps 11/18/22 [Rx Last Taken 05/15/23] fluticasone 232 mcg-salmeterol 14 mcg/actuation breath activated powdr 1 inh inhalation DAILY 01/26/23 [History Last Taken 05/15/23] diltiazem HCl 120 mg tablet (Cardizem) 120 mg PO BID 05/05/23 [History Last Taken 05/15/23] nitroglycerin 0.4 mg sublingual tablet (Nitrostat) 0.4 mg sublingual Q5-15M PRN chest pain #25 tabs 05/05/23 [Rx Last Taken 05/15/23] Allergy/AdvReac Type Severity Reaction Status Date / Time hydroxychloroquine sulfate Allergy Intermediate Rash Verified 05/05/23 13:30 [From Plaquenil] Penicillins Allergy Intermediate Rash Verified 05/05/23 13:30 adhesive tape Allergy Rash Verified 05/05/23 13:30 erythromycin base Allergy Unknown Verified 05/05/23 13:30 [Erythromycin Base] levofloxacin [From Levaquin] Allergy Unknown Verified 05/05/23 13:30 hydrochlorothiazide AdvReac Severe NEEDS Verified 05/05/23 13:30 FOLLOW-UP furosemide [From Lasix] AdvReac pancretitis Verified 05/05/23 13:30 Family History Mother , age 80 Myocardial infarction beginning age 60's, has had several OK's CAD (coronary artery disease) history of cardiac stents Father , age 65 Cancer pancreatic Grandfather Myocardial infarction Diabetes Surgical History H/O gastric bypass H/O: hysterectomy History of cholecystectomy Hx of jejunostomy Social History Smoking Status: Never smoker alcohol intake: never substance use type: does not use caffeine: Yes Type: coffee Number of servings: 1 what type of physical activity do you participate in: walking frequency: 1-2 times per week duration: 15-30 minutes/day seatbelt use: always do you feel safe at home: Yes Vital Signs Vital Signs Vital Signs: 05/15/23 18:15 Temperature 97.1 F L Temperature Source Temporal Pulse Rate 79 Respiratory Rate 16 Blood Pressure 152/76 H Blood Pressure Mean 101 Blood Pressure Source Monitor Blood Pressure Position Semi-Fowlers Blood Pressure Location Right Arm Pulse Ox 99 Oxygen Delivery Method Room Air Weight Weight: 181 lb 10.574 oz Body Mass Index (BMI) 36.6 Physical Exam Narrative General: Alert, Oriented x3, Cooperative, No apparent distress HEENT: Atraumatic, PERRLA, EOMI, Normocephalic Oral: Moist Mucosa Neck: Supple, No JVD Lungs: Diminished, Normal air movement, No rhonchi, No wheeze, No rales Cardiovascular: Regular rate, Regular Rhythm, Normal S1, Normal S2, No murmurs, port on left chest Abdomen: Soft, chronic epigastric tender, Non-Distended, No Hepato-splenomegaly Extremities: No edema, Capillary Refill Less than 3 Seconds Skin: No rashes, No breakdown Musculoskeletal: No Tenderness to Palpation of Joints or Extremities Neurological: Cranial nerves II-XII grossly intact, Motor Exam 5/5 strength throughout, Sensory exam intact to light touch and pain Psych/Mental Status: Normal Affect, Appropriate Assessment & Plan Assessment/Plan (1) Left bundle branch block: (2) Chest pain: QUALIFIERS: Chest pain type: precordial chest pain Qualified Code(s): R07.2 - Precordial pain PLAN: Plan 1. Chest pain with a left bundle branch block/HTN/HLD ? Troponins were unremarkable at the outside hospital ? We will plan for a stress test in the morning ? Continue with her home blood pressure medications ? We will monitor make adjustments as necessary 2. Chronic pancreatitis and interstitial lung disease possibly due to lupus/DVT/chronic pain ? Continue with her Coumadin ? She has a port in her left chest secondary to all the TPN she has received due to her chronic pancreatitis ? She states that her physicians believe this is due to lupus ? We will resume her home pain medications ? Continue with her home inhalers, she sees Dr. Tate 3. Anxiety/depression ? Stable ? Continue with Cymbalta 4. GERD ? Stable ? Continue with PPI DVT: Coumadin 76 minutes was spent on direct patient care, including documentation as well as chart review and collaboration with colleagues Charges/Coding Visit Charges Inpatient E&M: 31451 Init Hosp L3
[2023-05-15 21:32] LABS: Troponin-I HS 17 pg/mL (3.0-54.0)
[2023-05-15 22:30] VITALS: BP 159/72; PULSE 78; RESP 15; TEMP 36.7; O2SAT 100
[2023-05-15] MEDS: dilTIAZem CD 120 MG Capsule PO (22:37)
[2023-05-15] MEDS: DULoxetine Hcl 60 MG Capsule PO (22:38)
[2023-05-15] MEDS: Amitriptyline 25 MG Tablet 50 MG PO (22:38)
[2023-05-15] MEDS: Pantoprazole Sodium 40 MG Tablet PO (22:39)
[2023-05-15] MEDS: Montelukast 10 MG Tablet PO (22:39)
[2023-05-15] MEDS: Pregabalin 25 MG Capsule PO (22:59)
[2023-05-15] MEDS: HYDROcodone Bitartrate/Apap 5/325 Tablet PO (22:59)
--- NOTE | 2023-05-15 23:01 | EKG12_ITS ---
Test Reason : AM EKG Blood Pressure : / mmHG Vent. Rate : 077 BPM Atrial Rate : 077 BPM P-R Int : 174 ms QRS Dur : 142 ms QT Int : 418 ms P-R-T Axes : 041 -18 107 degrees QTc Int : 473 ms Normal sinus rhythm Left bundle branch block Abnormal ECG When compared with ECG of 15-MAY-2023 23:07, MANUAL COMPARISON REQUIRED, DATA IS UNCONFIRMED Confirmed by SAUL DURAN, PAUL ([id number]), online content editor NEERAJ BELCHER ([id number]) on 05/25/2023 12:48:15 PM Referred By: VICKI Confirmed By:PAUL HUGHES MD
[2023-05-15 23:58] VITALS: BP 139/85; PULSE 81; RESP 15; TEMP 36.8; O2SAT 96
[2023-05-16] MEDS: Morphine 2 MG/ML Syringe IV (00:02)
[2023-05-16] MEDS: 0.9% Saline Lock 10 ML Syringe IV ×2 (00:03→16:48)
[2023-05-16] MEDS: Zolpidem Tartrate 5 MG Tablet 10 MG PO (00:18)
--- NOTE | 2023-05-16 05:55 | EKG12_ITS ---
Test Reason : CP Blood Pressure : / mmHG Vent. Rate : 076 BPM Atrial Rate : 076 BPM P-R Int : 180 ms QRS Dur : 136 ms QT Int : 406 ms P-R-T Axes : 065 -13 106 degrees QTc Int : 456 ms Sinus rhythm with occasional Premature ventricular complexes Left bundle branch block Abnormal ECG When compared with ECG of 15-MAY-2023 19:03, MANUAL COMPARISON REQUIRED, DATA IS UNCONFIRMED Confirmed by SAUL DURAN, PAUL ([id number]), editorial assistant NEERAJ BELCHER ([id number]) on 05/25/2023 12:49:16 PM Referred By: VICKI Confirmed By:PAUL HUGHES MD
[2023-05-16 06:09] VITALS: BP 153/71; PULSE 73; RESP 18; TEMP 36.6; O2SAT 93
[2023-05-16] MEDS: HYDROcodone Bitartrate/Apap 5/325 Tablet PO ×2 (06:13→13:48)
[2023-05-16 06:22] LABS: Absolute Lymphocyte Count 1.67 X10^3/uL (0.83-4.51); Absolute Neutrophil Count 2.4 X10^3/uL (2.0-7.7); Basophil# 0.02 X10^3/uL; Basophil% 0.4 % (0-1); Eosinophil# 0.21 X10^3/uL; Eosinophils% 4.4 % (0-5); Hematocrit 35.9 % (37-47); Hemoglobin 11.4 g/dL (12.0-15.0); Lymphocyte # 1.67 X10^3/ul (0.83-4.51); Lymphocyte % 34.7 % (19-41); Mean Corp Hgb Conc 31.8 g/dL (32-36); Mean Corpuscular Hgb 29.7 pg (27.0-32.0); Mean Corpuscular Volume 93.5 fL (81-99); Mean Platelet Vol. 9.2 fl (6.2-12.0); Monocyte# 0.47 X10^3/uL; Monocyte% 9.8 % (0-10); NRBC Flagged by Analyzer 0 % (0-5); Neutrophil # 2.43 X10^3/uL (2.7-7.7); Neutrophil % 50.5 % (47-70); Platelet Count 277 K/mm3 (150-450); RBC Distribution Width CV 15.6 % (11.6-14.6); RBC Distribution Width SD 53.1 fl (35.1-43.9); Red Blood Count 3.84 M/mm3 (4.2-5.4); White Blood Count 4.8 K/mm3 (4.4-11.0)
[2023-05-16 06:28] LABS: International Normalized Ratio 1.8; Prothrombin Time (Protime)PT. 21.4 SECONDS (11.7-14.9)
[2023-05-16 06:45] LABS: Anion Gap 3 (5-15); BUN 11 mg/dL (7-18); Calcium,Total 8.4 mg/dL (8.5-10.1); Chloride 106 mmol/L (98-107); Creatinine, Serum 0.73 mg/dL (0.55-1.02); EST Glomerular Filtration Rate 84 mL/min (>60); Est Glom Filt Rate - Afr Amer 102 mL/min (>60); Estimated Creatinine Clearance 71.01 ml/min; Glucose 109 mg/dL (74-106); Potassium 4.2 mmol/L (3.5-5.1); Sodium Level 139 mmol/L (136-145)
--- NOTE | 2023-05-16 07:52 | ECHOD_ITS ---
Reason For Study: CHEST PAIN Procedure This was a 2D Doppler, Color Flow transthoracic echocardiogram. Exam performed in department. Left Ventricle Normal LV size. The estimated ejection fraction is 60-65 %. Right Ventricle Normal right ventricle. The right ventricle is normal in size, function, and thickness. Atria Normal left atrium. Normal right atrium. Mitral Valve There is mild mitral annular calcification. Trivial mitral valve insufficiency. Tricuspid Valve Normal tricuspid valve. Trivial tricuspid valve insufficiency. Aortic Valve Normal aortic valve. Pulmonic Valve The pulmonic valve is not well visualized. Great Vessels Normal aortic root. Pericardium/Pleural No pericardial effusion. MMode/2D Measurements & Calculations LVIDd: 4.2 cm IVSd: 0.91 cm Ao root diam: 3.1 cm LVIDs: 3.0 cm LVPWd: 0.85 cm RVDd: 3.3 cm FS: 30.3 % LAV(MOD-bp): 34.6 ml LVAd ap4: 23.8 cm2 SV(MOD-sp4): 36.8 ml LAV(MOD-bp) Indexed: 19.6 ml/m2 LVLd ap4: 7.0 cm LAV(MOD-sp2): 31.7 ml EDV(MOD-sp4): 65.3 ml LAV(MOD-sp4): 33.6 ml EDV(sp4-el): 68.5 ml LVAs ap4: 14.4 cm2 LVLs ap4: 6.1 cm ESV(MOD-sp4): 28.5 ml ESV(sp4-el): 29.0 ml EF(MOD-sp4): 56.4 % EF(sp4-el): 57.6 % SV(sp4-el): 39.4 ml LA A4 area: 13.5 cm2 LA dimension(2D): 3.4 cm RA A4 area: 10.0 cm2 Time Measurements MV dec time: 0.25 sec Doppler Measurements & Calculations MV E max tony: 94.0 cm/sec Lat Peak E' Tony: 9.6 cm/sec Med Peak E' Tony: 11.6 cm/sec MV A max tony: 125.4 cm/sec E/E' lat: 9.8 E/E' med: 8.1 MV E/A: 0.75 Ao V2 max: 152.2 cm/sec LV V1 max: 126.0 cm/sec PA V2 max: 123.4 cm/sec Ao max P.3 mmHg LV V1 max P.4 mmHg TR max tony: 249.9 cm/sec TR max P.0 mmHg ECHO/Echo Complete Interpretation Summary The estimated ejection fraction is 60-65 %. Normal LV systolic function In comparison to previous echo in June 23, 2020 No significant change. Ordering Physician: Parvin Infante Referring Physician: BRAIN PIZANO Performed By: Martha Marques RDCS
[2023-05-16 09:45] VITALS: BP 150/72; PULSE 81; RESP 18; TEMP 36.4; O2SAT 98
[2023-05-16 10:00] VITALS: RESP 18
[2023-05-16 11:25] VITALS: BP 154/77; PULSE 82; RESP 18; TEMP 36.6; O2SAT 98
[2023-05-16] MEDS: Pantoprazole Sodium 40 MG Tablet PO (12:23)
[2023-05-16] MEDS: dilTIAZem CD 120 MG Capsule PO (12:24)
[2023-05-16] MEDS: Pregabalin 25 MG Capsule PO (13:48)
--- NOTE | 2023-05-16 15:53 | CHAPLAIN ---
Type of Pastoral Visit _x__ Initial Visit ___ Follow-up Visit ___ On-call Visit ___ General Patient Visit ___ Spiritual Assessment ___ Family Conference ___ Bereavement ___ Rapid Response ___ Code Blue ___ Other (describe below) Pastoral Care Referral From _x__ Patient ___ Family ___ Nurse ___ Physician ___ Retail Security Professional ___ Powersaw Supervisor ___ Other (describe below) Sacrament/Intervention _x__ Active listening ___ Anointing ___ Latter Day ___ Bereavement ___ Communion _x__ Amirah exploration ___ ___ Life review _x__ Prayer ___ Reconciliation ___ Sacrament of Sick _x__ Supportive presence ___ Wedding ___ Other (describe below) Pastoral Comments patient is visiting with spouse and daughter when this visit begins; all are welcoming; some life review given along with expression of their personal amirah and active involvement in congregational; pt is waiting for test results and is asked about coping and feelings; pt has amirah in God and uses that to handle the circumstances; pt and family invite prayer support and conversation
--- NOTE | 2023-05-16 15:57 | STRESSREP_ITS ---
Stress Test Report Pharmacologic/Lexiscan myocardial perfusion stress test. Indication; 68-year-old female presented to outside facility with symptoms of chest pain described as multiple episodes Also she has a new left bundle branch block Other medical problem include COPD Stress protocol: Resting EKG demonstrates. Normal sinus rhythm. With left bundle branch 0.4 mg of regadenoson was infused per usual protocol followed by rapid intravenous saline flush injection continuous EKG monitoring was performed. The maximum heart rate attained was 88 bpm which was 57% of maximum predicted heart . Stress EKG showed[, no significant change from the resting EKG, the resting EKG showed left bundle branch block. Arrhythmia: No arrhythmia demonstrated Symptoms: Patient had no symptoms of chest pain Blood pressure at rest: 124/68 millimeters mercury blood pressure at the end of stress: 124/68 mmHg Myocardial perfusion protocol. 12 mCi ]of Technetium 99m Sestamibi was injected at rest. [ 0.4 mg ]of Regadenoson was infused per usual protocol peak infusion, 34.5 mCi ]of Technetium 99m sestamibi was injected. Stress images were obtained stress and rest images were reconstructed and compared in the short axis vertical and horizontal long axis. Gated images were also obtained Perfusion SPECT analysis: Review of the images demonstrate normal uptake of sestamibi at rest, post stress images demonstrate similar uptake of sestamibi to the resting images, homogeneous tracer uptake With no evidence of reversible myocardial ischemia. Gated SPECT analysis: The gated ejection fraction is 71%. LV wall motion showed hyperdynamic left ventricle. Conclusion: Negative Lexiscan sestamibi myocardial perfusion study for reversible myocardial ischemia Hyperdynamic left ventricle. Patient has no symptoms to report, in particular no chest pain Ruth Marie MD,FACC,[facility]
[2023-05-16 16:30] VITALS: BP 140/78; PULSE 75; RESP 18; TEMP 36.6; O2SAT 95
--- NOTE | 2023-05-16 16:54 | CASEMGMT ---
GERMAINE HUBBARD in to complete BUTLER Form with patient. GERMAINE HUBBARD explained BUTLER Form to patient, patient voiced understanding. Patient signed form and filed in chart. Patient provided copy of signed BUTLER Form. Patient had no further questions or concerns at this time.
--- NOTE | 2023-05-16 17:13 | DS.PCM_ITS ---
Providers Date of Admission: 05/15/23 Date of Discharge: 05/16/23 Primary Care Physician: Dr. Sarah Pizano MD Reason For Visit: CHEST PAIN Diagnosis Discharge Diagnosis (1) Left bundle branch block: Status: Acute Code(s): I44.7 - Left bundle-branch block, unspecified (2) Chest pain: Status: Chronic Code(s): R07.9 - Chest pain, unspecified Qualifiers: Chest pain type: precordial chest pain Qualified Code(s): R07.2 - Precordial pain Plan #Chest pain with normal stress test #GERD #History of DVT and PFO #History of fibromyalgia #OA and chronic pain #Left bundle branch block Medications at Discharge Home Medications amitriptyline 100 mg tablet 50 mg PO QHS 07/30/13 duloxetine 60 mg capsule,delayed release 60 mg PO QHS 07/30/13 montelukast 10 mg tablet 10 mg PO QHS 07/30/13 albuterol sulfate 90 mcg/actuation aerosol inhaler 6.7 g IH PRN PRN Sob &/Or Wheezing 08/29/13 multivitamin with folic acid 400 mcg tablet 1 tab PO DAILY vitamin 08/29/13 zolpidem 10 mg tablet 10 mg PO QHS PRN PRN Sleep 08/29/13 tizanidine 4 mg tablet 4 mg PO TID MUSCLE RELAXER 07/31/15 ascorbic acid (vitamin C) 500 mg tablet 1,000 mg PO DAILY@0800 09/08/15 ibuprofen 200 mg tablet 400 mg PO BID PRN PRN Pain 09/08/15 calcium carbonate 500 mg calcium (1,250 mg) tablet 500 mg PO DAILY@0800 10/20/15 omeprazole 40 mg capsule,delayed release 40 mg PO BID reflux 03/17/16 albuterol sulfate 2.5 mg/3 mL (0.083 %) solution for nebulization 2.5 mg inhal ation Q4H PRN PRN Wheezing 08/03/17 ergocalciferol (vitamin D2) 1,250 mcg (50,000 unit) capsule 50,000 unit PO TUTH 10/09/18 warfarin 4 mg tablet 2.5 mg PO QHS anti coagulant 10/09/18 pregabalin 25 mg capsule 25 mg PO BID 06/04/22 fentanyl 25 mcg/hr transdermal patch 1 patch transdermal DAILY pain 10/25/22 hydrocodone-acetaminophen 5-325mg 5mg-325mg 1 tab PO TID pain 10/25/22 [id number] 40,000-126,000-168,000 unit capsule, delay rel (Zenpep) See Rx Instructions PO .COMPLEX supplement #180 caps 11/18/22 fluticasone 232 mcg-salmeterol 14 mcg/actuation breath activated powdr 1 inh inhalation DAILY breathing 01/26/23 diltiazem HCl 120 mg tablet (Cardizem) 120 mg PO BID heart rate 05/05/23 nitroglycerin 0.4 mg sublingual tablet (Nitrostat) 0.4 mg sublingual Q5-15M PRN chest pain #25 tabs 05/05/23 Hospital Course Procedures Nuclear stress test and Transthoracic echo Summary of Care Provided Minutes Spent on Discharge: 35 Hospital Course: 68-year-old female history of asthma, DVT, OA presented to [facility] 05/15/2023 from an outside facility for chest pain. She has had multiple episodes of chest pain and was seen by her home health outreach coordinator on 05/05/2023 where the chest pain was accompanied by a new left bundle branch block. At that time she was told to call and schedule for an outpatient echo and stress test and when she did the soonest she could get in was 05/20/2023. She has been having repeated episodes of chest pain though not as bad as it was 2 weeks ago today at [facility] and so EMS was called and they brought her to the outside hospital. She elected to be transferred here because this is where her card iologist is. No new EKG changes other than that left bundle branch block and her initial troponin was 12 and second troponin went down to 9. After she was excepted to this facility, she drove her own personal vehicle as it would take too long for transfer via EMS per the emergency room at the outside hospital. Stress test and echocardiogram ordered, both of these were unremarkable. Patient reports her pain is in the center of her chest and has no exacerbating or relieving factors, she has recently had some problems with flaring of her asthma and query if this could have a pulmonary component. Given clinical stability patient was discharged home to follow-up with her heart doctor and her lung doctor. Patient discharged in stable condition. She was noted to have an INR of 1.8, discussed her current dosing and she reports she is actively having it adjusted by her prescribing physician. Discussed adjusting dose versus patient following up with her physician tomorrow about her INR and further adjustments and patient would like to follow-up with her physician for adjustments. Did discuss that she and an INR of 1.8 which is subtherapeutic, patient verbalized understanding. Discharge instructions as followed: DISCHARGE INSTRUCTIONS PLEASE READ *Please take this with you to your next doctors appointment* -You will need to follow-up with cardiology upon discharge, please call their office upon discharge to schedule your hospital follow-up appointment ) -Please follow-up with your lung doctor upon discharge. Please call their office to schedule hospital follow-up appointment upon discharge. -Please call your primary care provider's office upon discharge to schedule a hospital follow up within 1 week. -For any concerning signs or symptoms please call 911 or proceed to the nearest emergency department Physical Exam Narrative General: Alert, oriented, no apparent distress HEENT: Atraumatic, normocephalic Eyes: Anicteric, normal conjunctiva, extraocular movements grossly intact Neck: Supple Respiratory: Slightly diminished at bases, normal respiratory effort Cardiovascular: Regular rate GI: Soft, nontender, nondistended Extremities: No edema Musculoskeletal: Moving all extremities Neuro: No overt focal neurological deficits Skin: No rashes appreciated Psych: Cooperative Weight / BMI Weight Weight: 82.4 kg Body Mass Index (BMI) 36.6 ABG / Lab / Microbiology Data 05/16/23 05:53 05/16/23 05:53 Laboratory: Laboratory Results - last 24 hr 05/15/23 20:48: Troponin I High Sens 17 05/16/23 05:53: WBC 4.8, RBC 3.84 L, Hgb 11.4 L, Hct 35.9 L, MCV 93.5, MCH 29.7, MCHC 31.8 L, RDW Std Deviation 53.1 H, RDW Coeff of Darrick 15.6 H, Plt Count 277, MPV 9.2, Immature Gran % (Auto) 0.200, Neut % (Auto) 50.5, Lymph % (Auto) 34.7, Bowie % (Auto) 9.8, Eos % (Auto) 4.4, Baso % (Auto) 0.4, Absolute Neuts (auto) 2.4, Absolute Lymphs (auto) 1.67, Nucleated RBC % 0, PT 21.4 H, INR 1.8, Sodium 139, Potassium 4.2, Chloride 106, Carbon Dioxide 30.0, Anion Gap 3 L, BUN 11, Creatinine 0.73, Estim Creat Clear Calc 71.01, Est GFR (MDRD) Af Amer 102, Est GFR (MDRD) Non-Af 84, BUN/Creatinine Ratio 15.0, Glucose 109 H, Calcium 8.4 L Radiography Diagnostic Testing: Radiology Impression Echocardiogram 05/16/23 07:52 Interpretation Summary The estimated ejection fraction is 60-65 %. Normal LV systolic function In comparison to previous echo in June 23, 2020 No significant change. Ordering Physician: Parvin Infante Referring Physician: SARAH PIZANO Performed By: Martha Marques RDCS D/C Instructions Discharge Diet: - (DASH diet) Meaningful Use Info Meaningful Use Diagnoses (Choose all that apply): None applicable Discharge Plan Admission Admit Date/Time: 05/15/23 17:56 Primary Reason for Your Visit: Chest pain Attending Provider: Parvin Infante Primary Care Provider: Sarah Pizano Consulting Providers: Huang Tavarez Instructions Patient Instructions: ED Chest Pain, Uncertain Cause Additional Instructions / Restrictions: DISCHARGE INSTRUCTIONS PLEASE READ *Please take this with you to your next doctors appointment* -You will need to follow-up with cardiology upon discharge, please call their office upon discharge to schedule your hospital follow-up appointment ) -Please follow-up with your lung doctor upon discharge. Please call their office to schedule hospital follow-up appointment upon discharge. -Please follow-up with the physician monitoring your INR and Coumadin tomorrow given your INR of 1.8 as he may need further adjustments -Please call your primary care provider's office upon discharge to schedule a hospital follow up within 1 week. -For any concerning signs or symptoms please call 911 or proceed to the nearest emergency department Discharge Orders/Prescriptions Prescriptions: Continued warfarin 4 mg tablet 2.5 mg PO QHS Protocol: Dose Management Protocol Text: Patient Instructed to take: warfarin 4 mg (1 Tab) on [place], , , , , SA warfarin 4 mg (1.5 Tabs) on WE Patient Comments: [address] Pizano is taking over management 10/09/18; pregabalin 25 mg capsule 25 mg PO BID diltiazem HCl [Cardizem] 120 mg tablet 120 mg PO BID nitroglycerin [Nitrostat] 0.4 mg tablet, sublingual 0.4 mg sublingual Q5-15M PRN (Reason: chest pain) Qty: 25 3RF Rx Instructions: do not exceed 3 doses per episode montelukast 10 MG tablet 10 mg PO QHS Patient Comments: breathing duloxetine 60 MG capsule 60 mg PO QHS Patient Comments: mental health amitriptyline 100 MG tablet 50 mg PO QHS Patient Comments: mental health zolpidem 10 MG tablet 10 mg PO QHS PRN PRN (Reason: Sleep) Patient Comments: sleep albuterol sulfate 6.7 GM HFA aerosol inhaler 6.7 g IH PRN PRN (Reason: Sob &/Or Wheezing) Patient Comments: breathing multivitamin with folic acid 1 TABLET tablet 1 tab PO DAILY Patient Comments: supplement tizanidine 4 MG tablet 4 mg PO TID Patient Comments: muscle relaxer ascorbic acid (vitamin C) 500 MG tablet 1,000 mg PO DAILY@0800 Patient Comments: supplment ibuprofen 200 MG tablet 400 mg PO BID PRN PRN (Reason: Pain) Patient Comments: pain ergocalciferol (vitamin D2) 50,000 unit capsule 50,000 unit PO TUTH Patient Comments: TWICE WEEKLY ON TUESDAY & TUESDAY supplement calcium carbonate 500 MG tablet 500 mg PO DAILY@0800 Patient Comments: supplement omeprazole 40 MG capsule 40 mg PO BID albuterol sulfate 2.5 MG/3 ML solution for nebulization 2.5 mg INHALATION Q4H PRN PRN (Reason: Wheezing) hydrocodone-acetaminophen 5-325 mg tablet 1 tab PO TID Patient Comments: TAKE ONE TABLET BY MOUTH THREE TIMES DAILY NEEDED FOR PAIN fentanyl 25 mcg/hr patch 72 hour 1 patch transdermal DAILY Patient Comments: APPLY ONE PATCH TO SKIN EVERY 72 HOURS TO be used in conjunction with THE 12mg fluticasone propion-salmeterol 232-14 mcg/actuation aerosol powdr breath activated 1 inh INHALATION DAILY Patient Comments: INHALE 1 PUFF TWICE DAILY Zenpep 40,000-126,000- 168,000 unit capsule,delayed release(DR/EC) See Rx Instructions PO .COMPLEX Qty: 180 11RF Rx Instructions: take 1-2 with snacks and 2-3 with meals. EPI K86.81 Referrals / Follow Up: Sarah Pizano MD [Primary Care Provider] - Within 1 Week Chanel Shaw PA [Med Staff - Adv Practice Prof] - (Please follow-up with your cardiology office upon discharge) Disposition Disposition (needs filled in before D/C Order can be placed): Home, Self Care Charges/Coding Visit Charges Inpatient E&M: 19303 Disch Hosp >30min
[2023-05-16] MEDS: 0.9 % NaCl (Sterile) Posiflush 10 mL IV (18:47)
== END 2023-05-16 17:13 | disposition home or self-care (01) ==
PROVIDERS: Admitting Provider Family Medicine; PCP Internal Medicine; Visit Provider Internal Medicine
DX: R07.2 Precordial pain (principal); J44.9 Chronic obstructive pulmonary disease, unspecified; K86.1 Other chronic pancreatitis; I10 Essential (primary) hypertension; Z79.01 Long term (current) use of anticoagulants; M79.7 Fibromyalgia; I44.7 Left bundle-branch block, unspecified; Z79.51 Long term (current) use of inhaled steroids; K21.9 Gastro-esophageal reflux disease without esophagitis; Z86.718 Personal history of other venous thrombosis and embolism; Q21.12 Patent foramen ovale; Z79.899 Other long term (current) drug therapy; Z98.84 Bariatric surgery status; E78.5 Hyperlipidemia, unspecified; F41.9 Anxiety disorder, unspecified; F32.A Depression, unspecified; M19.90 Unspecified osteoarthritis, unspecified site; G89.29 Other chronic pain
CPT/HCPCS: 36415; 78452; 80048; 84484; 85025; 85610; 93005; 93017; 93306; 96374; 96375; 99221; A9500; A4216; G0378; G0379; J2785

== ENCOUNTER 2023-05-31 14:01 | Outpatient (RCR) | payer MEDICARE, SELFPAY ==
[2023-05-31 14:35] LABS: Prothrombin Time (Protime)PT. 13.3 SECONDS (11.7-14.9)
== END 2023-06-02 18:00 | disposition home or self-care (01) ==
LOC: LAB 14:01
PROVIDERS: PCP Internal Medicine; Referring Provider Clinical Nurse Specialist Adult Health; Visit Provider Clinical Nurse Specialist Adult Health
DX: Z79.01 Long term (current) use of anticoagulants (principal)
CPT/HCPCS: 36415; 85610

== ENCOUNTER 2023-06-06 14:40 | Inpatient (IN) | payer MEDICARE, SELFPAY ==
[2023-06-06] VITALS (7 sets, daily range): BP systolic 139–169; BP diastolic 74–120; PULSE 75–88; RESP 16–21; TEMP 36.2–37.2; O2SAT 84–96; BMI 35.9; BMI 35.4
--- NOTE | 2023-06-06 15:10 | EX.ED.DYSGE1 ---
HPI <BUBBA Rice - Last Filed: 06/06/23 18:10> History of Present Illness Chief Complaint: Shortness of Breath Narrative Narrative: Patient presenting today due to shortness of breath that started evening. She reports that she has had an intermittent fever, body aches, and productive cough. She did see her PCP today who performed a rapid COVID test which was negative. She reports a history of asthma and has been out of her albuterol inhaler for the past few days. She also reports having some moderate epigastric abdominal pain over the past several days and thinks that her chronic pancreatitis could be acting up. She reports a PMH of asthma, interstitial lung disease, and hypertension. She is on Coumadin, last INR was checked on and was normal. PFSH <BUBBA Rice - Last Filed: 06/06/23 18:10> [facility] Medical History (Updated 06/06/23 @ 18:34 by Marsha Sharpe) Abdominal pain Abnormal coagulation profile Abnormal echocardiogram Age-related cognitive decline Anemia Arthritis Cardiology follow-up encounter Cervical spine degeneration Cervical spondylosis Chest pain Chest pain Chronic obstructive pulmonary disease (COPD) suggested by initial evaluation Chronic pain Chronic pancreatitis COPD (chronic obstructive pulmonary disease) CRP elevated Deep venous thrombosis Degeneration of intervertebral disc of thoracic region Depression Disc disease, degenerative, lumbar or lumbosacral Elevated alkaline phosphatase level Essential hypertension Fibromyalgia GERD (gastroesophageal reflux disease) Hepatitis History of echocardiogram History of hiatal hernia History of Holter monitoring History of steroid therapy History of stress test Hyponatremia Interstitial lung disease Left bundle branch block FPC current use of anticoagulant Low iron Lumbosacral radiculopathy Lumbosacral spondylosis Myocardial infarct Non-smoker Osteoarthritis Osteoporosis Other intervertebral disc degeneration, lumbosacral region Other iron deficiency anemias Pancreatitis Patent foramen ovale Port-A-Cath in place Pulmonary embolism Spondylosis of thoracic region without myelopathy or radiculopathy Trapezius muscle spasm Tremor Vascular catheter fitting or adjustment Wears dentures Wears glasses Home Medications amitriptyline 100 mg tablet 50 mg PO QHS sleep 07/30/13 [History Last Taken 05/14/23] duloxetine 60 mg capsule,delayed release 60 mg PO QHS mental health 07/30/13 [History Last Taken 05/14/23] montelukast 10 mg tablet 10 mg PO QHS breathing 07/30/13 [History Last Taken 05/14/23] albuterol sulfate 90 mcg/actuation aerosol inhaler 6.7 g IH PRN PRN Sob &/Or Wheezing 08/29/13 [History Last Taken 05/14/23] multivitamin with folic acid 400 mcg tablet 1 tab PO DAILY vitamin 08/29/13 [History Last Taken 05/15/23] zolpidem 10 mg tablet 10 mg PO QHS PRN PRN Sleep 08/29/13 [History Last Taken 05/14/23] tizanidine 4 mg tablet 4 mg PO TID MUSCLE RELAXER 07/31/15 [History Last Taken 05/15/23] ascorbic acid (vitamin C) 500 mg tablet 1,000 mg PO DAILY@0800 supplement 09/08/15 [History Last Taken 05/15/23] ibuprofen 200 mg tablet 400 mg PO BID PRN PRN Pain 09/08/15 [History Last Taken 01/31/23] calcium carbonate 500 mg calcium (1,250 mg) tablet 500 mg PO DAILY@0800 supplement 10/20/15 [History Last Taken 05/15/23] omeprazole 40 mg capsule,delayed release 40 mg PO BID reflux 03/17/16 [History Last Taken 05/15/23] albuterol sulfate 2.5 mg/3 mL (0.083 %) solution for nebulization 2.5 mg inhalation Q4H PRN PRN Wheezing 08/03/17 [History Last Taken 05/14/23] ergocalciferol (vitamin D2) 1,250 mcg (50,000 unit) capsule 50,000 unit PO TUTH supplement 10/09/18 [History Last Taken 05/12/23] warfarin 4 mg tablet 3 mg PO QHS anti coagulant 10/09/18 [History Last Taken 05/14/23] pregabalin 25 mg capsule 25 mg PO BID neuropathy 06/04/22 [History Last Taken 05/15/23] fentanyl 25 mcg/hr transdermal patch 1 patch transdermal Q72H pain 10/25/22 [History Last Taken 05/14/23] hydrocodone-acetaminophen 5-325mg 5mg-325mg 1 tab PO TID PRN pain 10/25/22 [History Last Taken 05/15/23] czaoxo-tttsyfnx-quqmqio 40,000-126,000-168,000 unit capsule, delay rel (Zenpep) See Rx Instructions PO .COMPLEX supplement #180 caps 11/18/22 [Rx Last Taken 05/15/23] fluticasone 232 mcg-salmeterol 14 mcg/actuation breath activated powdr 1 inh inhalation DAILY breathing 01/26/23 [History Last Taken 05/15/23] diltiazem HCl 120 mg tablet (Cardizem) 120 mg PO BID heart rate 05/05/23 [History Last Taken 05/15/23] nitroglycerin 0.4 mg sublingual tablet (Nitrostat) 0.4 mg sublingual Q5-15M PRN chest pain #25 tabs 05/05/23 [Rx Last Taken 05/15/23] amlodipine 5 mg tablet (Norvasc) 5 mg PO DAILY blood pressure 06/06/23 [History Last Taken Unknown] fentanyl 37.5 mcg/hour transdermal patch 1 patch transdermal Q72H pain 06/06/23 [History Last Taken 06/06/23 13:43 1 patch] Allergy/AdvReac Type Severity Reaction Status Date / Time hydroxychloroquine sulfate Allergy Intermediate Rash Verified 06/06/23 18:37 [From Plaquenil] Penicillins Allergy Intermediate Rash Verified 06/06/23 18:37 adhesive tape Allergy Rash Verified 06/06/23 18:37 erythromycin base Allergy Unknown Verified 06/06/23 18:37 [Erythromycin Base] levofloxacin [From Levaquin] Allergy Unknown Verified 06/06/23 18:37 hydrochlorothiazide AdvReac Severe NEEDS Verified 06/06/23 18:37 FOLLOW-UP furosemide [From Lasix] AdvReac pancretitis Verified 06/06/23 18:37 Family History Mother , age 80 Myocardial infarction beginning age 60's, has had several OH's CAD (coronary artery disease) history of cardiac stents Father , age 65 Cancer pancreatic Grandfather Myocardial infarction Diabetes Surgical History (Updated 06/06/23 @ 18:34 by Marsha Sharpe) H/O gastric bypass H/O: hysterectomy History of appendectomy History of cholecystectomy History of embolic filter insertion Hx of jejunostomy Social History Smoking Status: Never smoker alcohol intake: never substance use type: does not use caffeine: Yes Type: coffee Number of servings: 1 what type of physical activity do you participate in: walking frequency: 1-2 times per week duration: 15-30 minutes/day seatbelt use: always do you feel safe at home: Yes ROS <BUBBA Riec - Last Filed: 06/06/23 18:10> ROS ED Constitutional Constitutional ED: Reports fever(s); Denies chills Cardiovascular Cardiovascular: Denies chest pain Respiratory/Chest Respiratory/Chest: Reports cough, dyspnea and dyspnea on exertion; Denies tachypnea or wheezing Gastrointestinal Gastrointestinal: Reports abdominal pain; Denies nausea or vomiting Genitourinary Genitourinary ED: Denies dysuria, hematuria or urinary urgency Musculoskeletal Musculoskeletal: Denies arthralgias or myalgias Integumentary Denies rash Neurologic Neurologic: Denies weakness EXAM <BUBBA Rice - Last Filed: 06/06/23 18:10> Physical Exam Const Vital Signs: 06/06/23 14:41 06/06/23 14:40 06/06/23 14:56 Temperature 97.2 F L Temperature Source Temporal Pulse Rate 85 Respiratory Rate 16 Respiratory Effort Short of Breath Respiratory Depth Normal Respiratory Pattern Tachypnea Blood Pressure 169/120 H Blood Pressure Mean 136 Pulse Ox 95 Oxygen Delivery Method Nasal Cannula Nasal Cannula Nasal Cannula Oxygen Flow Rate (L/min) 2 2 06/06/23 16:18 06/06/23 17:22 Temperature Temperature Source Pulse Rate 75 82 Respiratory Rate 18 21 H Respiratory Effort Respiratory Depth Respiratory Pattern Blood Pressure 139/74 H Blood Pressure Mean 95 Pulse Ox 96 Oxygen Delivery Method Nasal Cannula Oxygen Flow Rate (L/min) 3 Positive well nourished, well developed and no apparent distress General Appearance ED: well developed HEENT Reports normocephalic and head/scalp atraumatic Mouth ED: Yes moist mucous membranes normal Eyes PERRL and EOMs intact bilaterally Neck full ROM and supple Chest Wall inspection of chest normal Resp normal respiratory effort Resp Narrative: Diffuse crackles and expiratory wheezes to bilateral lung marsh Cardio regular rate and regular rhythm GI non-tender, non-distended and no masses GI Narrative: Minimal epigastric tenderness to palpation without any rigidity, guarding, or peritoneal signs. Back/Spine normal ROM and normal to inspection Extremity normal to inspection and full ROM Neuro oriented x3, CN's II-XII intact bilaterally, moves all extremities, no focal motor deficits and no sensory deficits noted Sensorium / Orientation: awake and alert Psych mental status grossly normal and thought process normal Skin no rashes or lesions noted and no wounds <Gallo Nayak MD - Last Filed: 06/06/23 22:40> Physical Exam Const Vital Signs: 06/06/23 14:41 06/06/23 14:40 06/06/23 14:56 Temperature 97.2 F L Temperature Source Temporal Pulse Rate 85 Respiratory Rate 16 Respiratory Effort Short of Breath Respiratory Depth Normal Respiratory Pattern Tachypnea Blood Pressure 169/120 H Blood Pressure Mean 136 Pulse Ox 95 Oxygen Delivery Method Nasal Cannula Nasal Cannula Nasal Cannula Oxygen Flow Rate (L/min) 2 2 06/06/23 16:18 06/06/23 17:22 Temperature Temperature Source Pulse Rate 75 82 Respiratory Rate 18 21 H Respiratory Effort Respiratory Depth Respiratory Pattern Blood Pressure 139/74 H Blood Pressure Mean 95 Pulse Ox 96 Oxygen Delivery Method Nasal Cannula Oxygen Flow Rate (L/min) 3 MDM <BUBBA Rice - Last Filed: 06/06/23 18:10> [facility] Narrative Medical decision making narrative: Patient presenting due to shortness of breath and a productive cough that she has had since evening. She is nontoxic-appearing. She has a history of asthma and interstitial lung disease. She is at 95% oxygen saturation on 2 L. She did come in to triage hypoxic at 88% on room air. COVID and flu swabs will be obtained, chest x-ray will be obtained to rule out infiltrate. Labs to be obtained to rule out leukocytosis, anemia, electrolyte abnormality, and ACS. She will be given breathing treatments and Solu-Medrol. The nurse attempted to ambulate the patient and she dropped to 88% on RA just by being taken off her supplemental O2. Given her hypoxia, I do feel that she needs to be admitted. Her symptoms are consistent with viral illness, chest x-ray negative for infiltrate. COVID and flu swabs were negative. Lipase was obtained given patient's epigastric pain and concern for flare in her chronic pancreatitis, this is within normal range. Troponin WNL. Low suspicion for PE given patient is within therapeutic range of her warfarin. I did speak with the hospitalist, she will be admitted in stable condition and is comfortable with plan. Lab Data Attestation: I reviewed the patient's lab results. Lab results narrative: H&H 11.9 and 36.8, sodium 134, calcium 8.3, BNP 114.7, troponin 10, lipase 41 Labs: Laboratory Results - last 24 hr 06/06/23 15:28 WBC 6.5 RBC 4.06 L Hgb 11.9 L Hct 36.8 L MCV 90.6 MCH 29.3 MCHC 32.3 RDW Std Deviation 50.0 H RDW Coeff of Darrick 15.1 H Plt Count 226 MPV 9.5 Immature Gran % (Auto) 0.300 Neut % (Auto) 78.1 H Lymph % (Auto) 10.9 L Erath % (Auto) 9.1 Eos % (Auto) 1.4 Baso % (Auto) 0.2 Absolute Neuts (auto) 5.1 Absolute Lymphs (auto) 0.71 L Nucleated RBC % 0 PT 20.7 H INR 1.8 Sodium 134 L Potassium 4.1 Chloride 98 Carbon Dioxide 32.0 Anion Gap 4 L BUN 10 Creatinine 0.76 Est GFR (MDRD) Af Amer 97 Est GFR (MDRD) Non-Af 80 BUN/Creatinine Ratio 13.1 Glucose 114 H Calcium 8.3 L Troponin I High Sens 10 B-Natriuretic Peptide 114.7 H Lipase 41 Radiography X-Ray: Read by ED Physician and Read by Radiologist Diagnostic Testing: Clinical Impression(s) from Imaging Studies Chest X-Ray 06/06/23 15:45 IMPRESSION: No definite acute or significant abnormality seen. Electronically Signed: Gurdeep Vaca MD at 16:48 EST , EKG Initial EKG: Comments: 73 bpm, normal sinus rhythm, left bundle branch block, no ST elevation, reviewed and interpreted by attending ED physician. <Gallo Nayak MD - Last Filed: 06/06/23 22:40> [facility] Narrative Medical decision making narrative: Patient presenting due to shortness of breath and a productive cough that she has had since evening. She is nontoxic-appearing. She has a history of asthma and interstitial lung disease. She is at 95% oxygen saturation on 2 L. She did come in to triage hypoxic at 88% on room air. COVID and flu swabs will be obtained, chest x-ray will be obtained to rule out infiltrate. Labs to be obtained to rule out leukocytosis, anemia, electrolyte abnormality, and ACS. She will be given breathing treatments and Solu-Medrol. The nurse attempted to ambulate the patient and she dropped to 88% on RA just by being taken off her supplemental O2. Given her hypoxia, I do feel that she needs to be admitted. Her symptoms are consistent with viral illness, chest x-ray negative for infiltrate. COVID and flu swabs were negative. Lipase was obtained given patient's epigastric pain and concern for flare in her chronic pancreatitis, this is within normal range. Troponin WNL. Low suspicion for PE given patient is within therapeutic range of her warfarin. I did speak with the hospitalist, she will be admitted in stable condition and is comfortable with plan. Dr. Nayak: I have personally performed a face to face assessment of the patient and have reviewed the ANICETO Note. I performed a substantive portion of the visit including all aspects of the following. My thomas findings include: History is shortness of breath with history of asthma. Hypoxic at primary care provider's office. Exam is afebrile. Vital signs noted. Coarse breath sounds bilaterally with occasional expiratory wheezing. No respiratory distress. Regular rate and rhythm. Abdomen soft and nontender. Medical Decision Making: In the differential diagnosis is pneumonia versus pneumothorax versus asthma exacerbation/COPD exacerbation. Check chest x-ray. Chest x-ray interpreted by myself independently shows no evidence of a discrete pneumonia or pneumothorax. Patient hypoxic at rest with slightest movement. Admit. Other additions or changes: [None] History & Record Review Discussion w/independent historian: Patient and Family Additional record(s) reviewed:: Prior labs Lab Data Labs: Laboratory Results - last 24 hr 06/06/23 15:28 WBC 6.5 RBC 4.06 L Hgb 11.9 L Hct 36.8 L MCV 90.6 MCH 29.3 MCHC 32.3 RDW Std Deviation 50.0 H RDW Coeff of Darrick 15.1 H Plt Count 226 MPV 9.5 Immature Gran % (Auto) 0.300 Neut % (Auto) 78.1 H Lymph % (Auto) 10.9 L Erath % (Auto) 9.1 Eos % (Auto) 1.4 Baso % (Auto) 0.2 Absolute Neuts (auto) 5.1 Absolute Lymphs (auto) 0.71 L Nucleated RBC % 0 PT 20.7 H INR 1.8 Sodium 134 L Potassium 4.1 Chloride 98 Carbon Dioxide 32.0 Anion Gap 4 L BUN 10 Creatinine 0.76 Est GFR (MDRD) Af Amer 97 Est GFR (MDRD) Non-Af 80 BUN/Creatinine Ratio 13.1 Glucose 114 H Calcium 8.3 L Troponin I High Sens 10 B-Natriuretic Peptide 114.7 H Lipase 41 Radiography Diagnostic Testing: Clinical Impression(s) from Imaging Studies Chest X-Ray 06/06/23 15:45 IMPRESSION: No definite acute or significant abnormality seen. Electronically Signed: Gurdeep Vaca MD at 16:48 EST , EKG Initial EKG: Attestation: I personally reviewed and interpreted this EKG as follows: Discharge Plan Dx/Rx/DC Orders Clinical Impression: Shortness of breath, Interstitial lung disease, Hypoxia, Viral illness Disposition Disposition: Acute Care Hospital [facility] Discharge Date/Time: 06/06/23 18:13
[2023-06-06 15:39] LABS: Absolute Lymphocyte Count 0.71 X10^3/uL (0.83-4.51); Absolute Neutrophil Count 5.1 X10^3/uL (2.0-7.7); Basophil# 0.01 X10^3/uL; Basophil% 0.2 % (0-1); Eosinophil# 0.09 X10^3/uL; Eosinophils% 1.4 % (0-5); Hematocrit 36.8 % (37-47); Hemoglobin 11.9 g/dL (12.0-15.0); Lymphocyte # 0.71 X10^3/ul (0.83-4.51); Lymphocyte % 10.9 % (19-41); Mean Corp Hgb Conc 32.3 g/dL (32-36); Mean Corpuscular Hgb 29.3 pg (27.0-32.0); Mean Corpuscular Volume 90.6 fL (81-99); Mean Platelet Vol. 9.5 fl (6.2-12.0); Monocyte# 0.59 X10^3/uL; Monocyte% 9.1 % (0-10); NRBC Flagged by Analyzer 0 % (0-5); Neutrophil # 5.07 X10^3/uL (2.7-7.7); Neutrophil % 78.1 % (47-70); Platelet Count 226 K/mm3 (150-450); RBC Distribution Width CV 15.1 % (11.6-14.6); Red Blood Count 4.06 M/mm3 (4.2-5.4); White Blood Count 6.5 K/mm3 (4.4-11.0)
--- NOTE | 2023-06-06 15:45 | RAD_ITS ---
STUDY: X-RAY CHEST REASON FOR EXAM: Female, 68 years old. shortness of breath TECHNIQUE: Single AP portable view of the chest. COMPARISON: 10/11/2022. FINDINGS: Stable appearance of bilateral indwelling central lines terminating in the lower SVC. The lungs are clear and expanded. There is no demonstrated pleural abnormality. Normal size heart. Normal mediastinum and yu. Normal visualized pulmonary arteries. Normal visualized aortic arch and descending thoracic aorta. Normal visualized thoracic spine. Normal visualized ribs, clavicles, and shoulders. There is no demonstrated abnormality of the visualized soft tissue structures of the upper abdomen. RAD/Chest PA and Lateral IMPRESSION: No definite acute or significant abnormality seen. Electronically Signed: Gurdeep Vaca MD at 16:48 EST ,
[2023-06-06 15:55] LABS: Anion Gap 4 (5-15); BUN 10 mg/dL (7-18); BUN/Creat Ratio 13.1 RATIO (10-20); Calcium,Total 8.3 mg/dL (8.5-10.1); Chloride 98 mmol/L (98-107); Creatinine, Serum 0.76 mg/dL (0.55-1.02); EST Glomerular Filtration Rate 80 mL/min (>60); Est Glom Filt Rate - Afr Amer 97 mL/min (>60); Glucose 114 mg/dL (74-106); Lipase 41 U/L (13-75); Potassium 4.1 mmol/L (3.5-5.1); Sodium Level 134 mmol/L (136-145); Troponin-I HS 10 pg/mL (3.0-54.0)
[2023-06-06 15:59] LABS: BNP,B-Type NATRIURETIC PEPTIDE 114.7 pg/mL (0-100)
[2023-06-06] MEDS: Albuterol 2.5 MG/3 ML VIAL.NEB. INHALATION (16:17)
[2023-06-06] MEDS: Ipratropium/Albuterol Sulfate 3 ML AMPUL.NEB INHALATION ×2 (16:17→19:13)
[2023-06-06 17:25] LABS: International Normalized Ratio 1.8; Prothrombin Time (Protime)PT. 20.7 SECONDS (11.7-14.9)
--- NOTE | 2023-06-06 17:37 | NURSING ---
MED SURG KOORTIZS HYPOXIA
[2023-06-06] MEDS: MethylPREDNISolone 125 MG/2 ML Vial IV (17:40)
--- NOTE | 2023-06-06 17:42 | HP.PCM.HOS_ITS ---
HPI - General General Date of Admission: 06/06/23 HPI Narrative JOSE J COBIAN, is a 68 F who presents with shortness of breath and fevers and chills as well as myalgias for the last 3 to 4 days. She says symptoms started on which is around the same time that she ran out of her inhalers insert addendum to use her nebulizer. She slowly got worse and she presented today and was hypoxic to 88% on room air in triage and subsequently had to be increased from 2 L to 3 L nasal cannula. She does have an history of interstitial lung disease from possible lupus and she says that she has been on several short courses of steroids over the last couple of weeks. She was recently in for chest pain as well as what appeared to be a new left bundle branch block, stress test and echocardiogram were unremarkable and she did not undergo a cardiac catheterization. She is not currently having any significant chest pain initial troponin was unremarkable. Chest x-ray was normal and COVID and flu testing were negative however a respiratory panel is pending. [facility] Medical History (Updated 06/06/23 @ 18:34 by Marsha Sharpe) Abdominal pain Abnormal coagulation profile Abnormal echocardiogram Age-related cognitive decline Anemia Arthritis Cardiology follow-up encounter Cervical spine degeneration Cervical spondylosis Chest pain Chest pain Chronic obstructive pulmonary disease (COPD) suggested by initial evaluation Chronic pain Chronic pancreatitis COPD (chronic obstructive pulmonary disease) CRP elevated Deep venous thrombosis Degeneration of intervertebral disc of thoracic region Depression Disc disease, degenerative, lumbar or lumbosacral Elevated alkaline phosphatase level Essential hypertension Fibromyalgia GERD (gastroesophageal reflux disease) Hepatitis History of echocardiogram History of hiatal hernia History of Holter monitoring History of steroid therapy History of stress test Hyponatremia Interstitial lung disease Left bundle branch block [facility] current use of anticoagulant Low iron Lumbosacral radiculopathy Lumbosacral spondylosis Myocardial infarct Non-smoker Osteoarthritis Osteoporosis Other intervertebral disc degeneration, lumbosacral region Other iron deficiency anemias Pancreatitis Patent foramen ovale Port-A-Cath in place Pulmonary embolism Spondylosis of thoracic region without myelopathy or radiculopathy Trapezius muscle spasm Tremor Vascular catheter fitting or adjustment Wears dentures Wears glasses Home Medications amitriptyline 100 mg tablet 50 mg PO QHS sleep 07/30/13 [History Last Taken 05/14/23] duloxetine 60 mg capsule,delayed release 60 mg PO QHS mental health 07/30/13 [History Last Taken 05/14/23] montelukast 10 mg tablet 10 mg PO QHS breathing 07/30/13 [History Last Taken 05/14/23] albuterol sulfate 90 mcg/actuation aerosol inhaler 6.7 g IH PRN PRN Sob &/Or Wheezing 08/29/13 [History Last Taken 05/14/23] multivitamin with folic acid 400 mcg tablet 1 tab PO DAILY vitamin 08/29/13 [History Last Taken 05/15/23] zolpidem 10 mg tablet 10 mg PO QHS PRN PRN Sleep 08/29/13 [History Last Taken 05/14/23] tizanidine 4 mg tablet 4 mg PO TID MUSCLE RELAXER 07/31/15 [History Last Taken 05/15/23] ascorbic acid (vitamin C) 500 mg tablet 1,000 mg PO DAILY@0800 supplement 09/08/15 [History Last Taken 05/15/23] ibuprofen 200 mg tablet 400 mg PO BID PRN PRN Pain 09/08/15 [History Last Taken 01/31/23] calcium carbonate 500 mg calcium (1,250 mg) tablet 500 mg PO DAILY@0800 supplement 10/20/15 [History Last Taken 05/15/23] omeprazole 40 mg capsule,delayed release 40 mg PO BID reflux 03/17/16 [History Last Taken 05/15/23] albuterol sulfate 2.5 mg/3 mL (0.083 %) solution for nebulization 2.5 mg inhalation Q4H PRN PRN Wheezing 08/03/17 [History Last Taken 05/14/23] ergocalciferol (vitamin D2) 1,250 mcg (50,000 unit) capsule 50,000 unit PO TUTH supplement 10/09/18 [History Last Taken 05/12/23] warfarin 4 mg tablet 3 mg PO QHS anti coagulant 10/09/18 [History Last Taken 05/14/23] pregabalin 25 mg capsule 25 mg PO BID neuropathy 06/04/22 [History Last Taken 05/15/23] fentanyl 25 mcg/hr transdermal patch 1 patch transdermal Q72H pain 10/25/22 [History Last Taken 05/14/23] hydrocodone-acetaminophen 5-325mg 5mg-325mg 1 tab PO TID PRN pain 10/25/22 [History Last Taken 05/15/23] fgdfet-rfkfgoif-enwaadq 40,000-126,000-168,000 unit capsule, delay rel (Zenpep) See Rx Instructions PO .COMPLEX supplement #180 caps 11/18/22 [Rx Last Taken 05/15/23] fluticasone 232 mcg-salmeterol 14 mcg/actuation breath activated powdr 1 inh inhalation DAILY breathing 01/26/23 [History Last Taken 05/15/23] diltiazem HCl 120 mg tablet (Cardizem) 120 mg PO BID heart rate 05/05/23 [History Last Taken 05/15/23] nitroglycerin 0.4 mg sublingual tablet (Nitrostat) 0.4 mg sublingual Q5-15M PRN chest pain #25 tabs 05/05/23 [Rx Last Taken 05/15/23] amlodipine 5 mg tablet (Norvasc) 5 mg PO DAILY blood pressure 06/06/23 [History Last Taken Unknown] fentanyl 37.5 mcg/hour transdermal patch 1 patch transdermal Q72H pain 06/06/23 [History Last Taken 06/06/23 13:43 1 patch] Allergy/AdvReac Type Severity Reaction Status Date / Time hydroxychloroquine sulfate Allergy Intermediate Rash Verified 06/06/23 18:37 [From Plaquenil] Penicillins Allergy Intermediate Rash Verified 06/06/23 18:37 adhesive tape Allergy Rash Verified 06/06/23 18:37 erythromycin base Allergy Unknown Verified 06/06/23 18:37 [Erythromycin Base] levofloxacin [From Levaquin] Allergy Unknown Verified 06/06/23 18:37 hydrochlorothiazide AdvReac Severe NEEDS Verified 06/06/23 18:37 FOLLOW-UP furosemide [From Lasix] AdvReac pancretitis Verified 06/06/23 18:37 Family History Mother , age 80 Myocardial infarction beginning age 60's, has had several NV's CAD (coronary artery disease) history of cardiac stents Father , age 65 Cancer pancreatic Grandfather Myocardial infarction Diabetes Surgical History (Updated 06/06/23 @ 18:34 by Marsha Sharpe) H/O gastric bypass H/O: hysterectomy History of appendectomy History of cholecystectomy History of embolic filter insertion Hx of jejunostomy Social History Smoking Status: Never smoker alcohol intake: never substance use type: does not use caffeine: Yes Type: coffee Number of servings: 1 what type of physical activity do you participate in: walking frequency: 1-2 times per week duration: 15-30 minutes/day seatbelt use: always do you feel safe at home: Yes ROS Constitutional Constitutional: Reports chills and fever(s); Denies fatigue or malaise Eyes Eyes: Denies blurry vision ENT HEENT: Denies headache(s) or nasal discharge Cardiovascular Cardiovascular: Denies chest pain, dyspnea on exertion or syncope Respiratory/Chest Respiratory/Chest: Reports productive cough, shortness of breath at rest and shortness of breath with exertion Gastrointestinal Gastrointestinal: Denies constipation, diarrhea, nausea or vomiting Genitourinary Genitourinary: Denies dysuria Musculoskeletal Musculoskeletal: Reports myalgias Neurologic Neurologic: Denies focal weakness, numbness or tremor(s) Psychiatric Psychiatric: Denies anxiety or depression Vital Signs Vital Signs Vital Signs: 06/06/23 14:41 06/06/23 14:40 06/06/23 14:56 Temperature 97.2 F L Temperature Source Temporal Pulse Rate 85 Respiratory Rate 16 Respiratory Effort Short of Breath Respiratory Depth Normal Respiratory Pattern Tachypnea Blood Pressure 169/120 H Blood Pressure Mean 136 Pulse Ox 95 Oxygen Delivery Method Nasal Cannula Nasal Cannula Nasal Cannula Oxygen Flow Rate (L/min) 2 2 06/06/23 16:18 06/06/23 17:22 Temperature Temperature Source Pulse Rate 75 82 Respiratory Rate 18 21 H Respiratory Effort Respiratory Depth Respiratory Pattern Blood Pressure 139/74 H Blood Pressure Mean 95 Pulse Ox 96 Oxygen Delivery Method Nasal Cannula Oxygen Flow Rate (L/min) 3 Physical Exam Narrative General: Alert, Oriented x3, Cooperative, No apparent distress HEENT: Atraumatic, PERRLA, EOMI, Normocephalic Oral: Moist Mucosa Neck: Supple, No JVD Lungs: Diminished, Normal air movement, rhonchi, wheeze, No rales Cardiovascular: Regular rate, Regular Rhythm, Normal S1, Normal S2, No murmurs Abdomen: Soft, Non Tender, Non-Distended, No Hepato-splenomegaly Extremities: No edema, Capillary Refill Less than 3 Seconds Skin: No rashes, No breakdown Musculoskeletal: No Tenderness to Palpation of Joints or Extremities Neurological: Cranial nerves II-XII grossly intact, Motor Exam 5/5 strength throughout, Sensory exam intact to light touch and pain Psych/Mental Status: Normal Affect, Appropriate Results Lab / Micro Data 06/06/23 15:28 06/06/23 15:28 Labs: Laboratory Results - last 24 hr 06/06/23 15:28: WBC 6.5, RBC 4.06 L, Hgb 11.9 L, Hct 36.8 L, MCV 90.6, MCH 29.3, MCHC 32.3, RDW Std Deviation 50.0 H, RDW Coeff of Darrick 15.1 H, Plt Count 226, MPV 9.5, Immature Gran % (Auto) 0.300, Neut % (Auto) 78.1 H, Lymph % (Auto) 10.9 L, [place] % (Auto) 9.1, Eos % (Auto) 1.4, Baso % (Auto) 0.2, Absolute Neuts (auto) 5.1, Absolute Lymphs (auto) 0.71 L, Nucleated RBC % 0, PT 20.7 H, INR 1.8, Sodium 134 L, Potassium 4.1, Chloride 98, Carbon Dioxide 32.0, Anion Gap 4 L, BUN 10, Creatinine 0.76, Est GFR (MDRD) Af Amer 97, Est GFR (MDRD) Non-Af 80, BUN/Creatinine Ratio 13.1, Glucose 114 H, Calcium 8.3 L, Troponin I High Sens 10, B-Natriuretic Peptide 114.7 H, Lipase 41 Micro: Microbiology 06/06/23 15:28 Nasal Secretion SARS-CoV-2 & FLU Antigen (Rapid) - Final Imagaing Radiology Impression Chest X-Ray 06/06/23 15:45 IMPRESSION: No definite acute or significant abnormality seen. Electronically Signed: Gurdeep Vaca MD at 16:48 EST , Assessment & Plan Assessment/Plan (1) Hypoxia: (2) Interstitial lung disease: PLAN: Plan 1. Acute hypoxia with exacerbation of her interstitial lung disease ? She does see Dr. Salazar as an outpatient has been on multiple courses of steroids, she will likely need to be tapered after this course ? Oxygen requirements are elevated to 3 L, she is not requiring oxygen at baseline when she came in she was hypoxic to 88% on room air ? We will continue with high-dose steroids as well as DuoNebs ? Respiratory panel was pending ? COVID and flu were negative ? Denies any sick contacts at home 2. HTN/HLD ? She did recently have a left bundle branch block underwent cardiac evaluation which was unremarkable ? Continue with her home blood pressure medications ? We will monitor make adjustments as necessary 3. Chronic pancreatitis due to possible lupus/history of DVT/chronic pain ? We will continue with the Coumadin and monitor her INR is ? She has a port in her left chest secondary to all the TPN she has received due to her chronic pancreatitis ? She states that her physicians believe this is due to lupus ? We will resume her home pain medications 4. Anxiety/depression ? Stable ? Continue with Cymbalta 5. GERD ? Stable ? Continue with PPI DVT: Coumadin 76 minutes was spent on direct patient care, including documentation as well as chart review and collaboration with colleagues Charges/Coding Visit Charges Inpatient E&M: 73708 Init Hosp L3
[2023-06-06] MEDS: dilTIAZem 60 MG Tablet 120 MG PO (21:53)
[2023-06-06] MEDS: Montelukast 10 MG Tablet PO (21:53)
[2023-06-06] MEDS: Pantoprazole Sodium 40 MG Tablet PO (21:53)
[2023-06-06] MEDS: DULoxetine Hcl 60 MG Capsule PO (21:53)
[2023-06-06] MEDS: Amitriptyline 100 MG Tablet 50 MG PO (21:54)
[2023-06-06] MEDS: HYDROcodone Bitartrate/Apap 5/325 Tablet PO (22:08)
[2023-06-06] MEDS: Ibuprofen 400 MG Tablet PO (22:12)
[2023-06-06] MEDS: Pregabalin 25 MG Capsule PO (22:21)
[2023-06-07] VITALS (13 sets, daily range): BP systolic 156–189; BP diastolic 59–85; PULSE 71–103; RESP 16–20; TEMP 36.4–37; O2SAT 93–100
[2023-06-07] MEDS: Ipratropium/Albuterol Sulfate 3 ML AMPUL.NEB INHALATION ×5 (04:22→18:56)
--- NOTE | 2023-06-07 07:47 | PN.HOSP_ITS ---
Reason for Visit Reason for Visit: Shortness of breath, fever, chills Subjective Subjective Patient is a 68-year-old white female who presented to the emergency department at [facility] on 06/06/2023 with worsening shortness of breath, fever, and chills as well as myalgias that have been worse over the last 3 to 4 days. She reported that symptoms started on and she slowly worsened which is why she presented on the day of admission. She is found to be hypoxic on room air at 88% in triage and was placed on 2 L nasal cannula. She does have a history of interstitial lung disease from possible lupus diagnosis and she indicated she had been on several short courses of steroids over the past couple of weeks prior to presentation. She recently was admitted for chest pain and EKG changes consistent with a new left bundle branch block. A stress test and echocardiogram were found to be unremarkable. She denied chest pain on pres entation. Rapid flu and COVID were negative. Viral respiratory panel was performed and she is positive for RSV A. She was admitted to the medical floor and placed on supportive care with aerosols and given steroids to help with bronchospasm and wheezing. Patient states she is feeling okay. Notices that she is wheezing quite a bit. Indicated she did not have the RSV vaccine. Is anxious to go home however with her oxygen requirements going up through the night I did discuss with her that I would like to see them stabilize for 24 hours before we do an ambulatory oxygen saturation and discussed discharge. She voiced understanding. Objective Data Objective Data Vital Signs: Vital Signs Temp Pulse Resp BP Pulse Ox O2 Del Method O2 Flow Rate 97.5 F L 78 18 158/75 H 95 Nasal Cannula 2 06/07/23 04:17 06/07/23 04:23 06/07/23 04:23 06/07/23 04:17 06/07/23 04:17 06/07/23 04:17 06/07/23 04:17 Oxygen Flow Rate (L/min) 2 Oxygen Delivery Method Nasal Cannula Weight: 79.696 kg Body Mass Index (BMI) 35.4 Lab / Micro Data 06/06/23 15:28 06/06/23 15:28 Labs: Laboratory Results - last 24 hr 06/06/23 15:28: WBC 6.5, RBC 4.06 L, Hgb 11.9 L, Hct 36.8 L, MCV 90.6, MCH 29.3, MCHC 32.3, RDW Std Deviation 50.0 H, RDW Coeff of Darrick 15.1 H, Plt Count 226, MPV 9.5, Immature Gran % (Auto) 0.300, Neut % (Auto) 78.1 H, Lymph % (Auto) 10.9 L, [place] % (Auto) 9.1, Eos % (Auto) 1.4, Baso % (Auto) 0.2, Absolute Neuts (auto) 5.1, Absolute Lymphs (auto) 0.71 L, Nucleated RBC % 0, PT 20.7 H, INR 1.8, Sodium 134 L, Potassium 4.1, Chloride 98, Carbon Dioxide 32.0, Anion Gap 4 L, BUN 10, Creatinine 0.76, Est GFR (MDRD) Af Amer 97, Est GFR (MDRD) Non-Af 80, BUN/Creatinine Ratio 13.1, Glucose 114 H, Calcium 8.3 L, Troponin I High Sens 10, B-Natriuretic Peptide 114.7 H, Lipase 41 Micro: Microbiology 06/06/23 18:01 Mucosa - Nasopharyngeal Respiratory Panel (PCR) - Final RSV A 06/06/23 15:28 Nasal Secretion SARS-CoV-2 & FLU Antigen (Rapid) - Final Radiography Diagnostic Testing: Radiology Impression Chest X-Ray 06/06/23 15:45 IMPRESSION: No definite acute or significant abnormality seen. Electronically Signed: Gurdeep Vaca MD at 16:48 EST , Physical Exam Const alert, oriented x3, no apparent distress, healthy appearing and well nourished Constitutional Narrative: Obese, upper middle-aged, pleasant, white female, sitting up in bed watching television, appears comfortable and nontoxic, no signs of respiratory distress, currently on 4 L supplemental nasal cannula HEENT head/scalp atraumatic and moist oral mucous membranes HEENT Narrative: Mallampati 3, no thrush Head and Scalp: normocephalic Resp no retractions, no use of accessory muscles and No clear to auscultation b ilaterally Resp Narrative: Coarse bilateral lung sounds with diffuse crackles and scattered end expiratory wheezes, no signs of respiratory distress or tachypnea, stable on 4 L Auscultation: crackles and wheezes; Negative for rhonchi Cardio regular rate, regular rhythm, S1 normal heart sound, S2 normal heart sound, no murmurs, no rub, no gallops and no clicks GI normal to inspection, nondistended, normoactive bowel sounds, soft to palpation and non-tender Extremity no clubbing, cyanosis or edema Extremity Narrative: Pedal pulses are 2+ Neuro oriented x3, moves all extremities and no focal motor deficits Speech: speech normal Psych affect normal Psych Narrative: Extremely pleasant, interacts appropriately, eye contact is good Assessment & Plan Assessment/Plan (1) Hypoxia: (2) Shortness of breath: (3) RSV infection: PLAN: Plan Shortness of breath/hypoxia secondary to RSV infection -Respiratory viral panel was positive for RSV a -Patient was not vaccinated for RSV -Continue scheduled and as needed aerosols -Continue IV steroids -Continue incentive spirometry -Continue Pep therapy -Add Mucinex -Patient currently requiring 4 L nasal cannula to maintain oxygen saturations -Wean as able -Patient is anxious to go home and I did discuss with her that she will l ikely need to go home on supplemental oxygen however we would like to see her oxygen levels stabilize prior to her leaving -She voiced understanding -If oxygen levels are stable check ambulatory pulse ox tomorrow Hyperglycemia -Likely related to acute steroid use -No documented history of diabetes -We will check hemoglobin A1c -Start SSI and Accu-Cheks as a.m. blood sugar was 247 Pulmonary fibrosis/ILD -Patient is not O2 dependent at baseline -Follows as an outpatient with Dr. Salazar -Restart inhalers at discharge Hypertension/hyperlipidemia/LBBB -Patient underwent testing recently due to left bundle branch block which was unremarkable -Continue home diltiazem -Continue home amlodipine -Patient is not on anything for cholesterol continue outpatient follow-up GERD -Continue home PPI Chronic pancreatitis -Continue home medications History of DVT -Continue Coumadin -Repeat INR in a.m. -Currently is subtherapeutic so we will place on therapeutic Lovenox until INR is greater than 2 then stop Lovenox -Increase warfarin from 2.5 to 3 mg nightly Chronic pain/fibromyalgia -Continue home as needed ibuprofen -Continue home fentanyl patch -Continue home tizanidine -Continue home Lyrica Depression/anxiety -Continue home amitriptyline -Can home duloxetine Insomnia -Hold home zolpidem for now with respiratory status DVT prophylaxis -INR is 1.6 and patient is chronically on Coumadin -With INR being subtherapeutic we will place on therapeutic dose Lovenox until INR is greater than 2 due to history of DVT CODE STATUS -Full code Charges/Coding Visit Charges Inpatient E&M: 32736 Subs Hosp L2
[2023-06-07 08:28] LABS: Absolute Lymphocyte Count 0.18 X10^3/uL (0.83-4.51); Absolute Neutrophil Count 3.1 X10^3/uL (2.0-7.7); Hematocrit 39.5 % (37-47); Lymphocyte # 0.18 X10^3/ul (0.83-4.51); Lymphocyte % 5.5 % (19-41); Mean Corp Hgb Conc 32.9 g/dL (32-36); Mean Corpuscular Hgb 29.5 pg (27.0-32.0); Mean Corpuscular Volume 89.8 fL (81-99); Mean Platelet Vol. 9.6 fl (6.2-12.0); Monocyte# 0.04 X10^3/uL; Monocyte% 1.2 % (0-10); NRBC Flagged by Analyzer 0 % (0-5); Neutrophil # 3.08 X10^3/uL (2.7-7.7); Neutrophil % 93.3 % (47-70); POSITIVE DIFFERENTIAL YES; Platelet Count 242 K/mm3 (150-450); RBC Distribution Width CV 14.9 % (11.6-14.6); RBC Distribution Width SD 49.1 fl (35.1-43.9); White Blood Count 3.3 K/mm3 (4.4-11.0)
[2023-06-07 08:32] LABS: Differential Indicated SCAN CRITERIA MET
[2023-06-07 08:42] LABS: International Normalized Ratio 1.6; Prothrombin Time (Protime)PT. 19.1 SECONDS (11.7-14.9)
[2023-06-07 08:46] LABS: Anion Gap 6 (5-15); BUN 11 mg/dL (7-18); BUN/Creat Ratio 12.2 RATIO (10-20); Calcium,Total 8.9 mg/dL (8.5-10.1); Chloride 98 mmol/L (98-107); EST Glomerular Filtration Rate 67 mL/min (>60); Est Glom Filt Rate - Afr Amer 81 mL/min (>60); Estimated Creatinine Clearance 76.31 ml/min; Glucose 247 mg/dL (74-106); Potassium 4.1 mmol/L (3.5-5.1); Sodium Level 132 mmol/L (136-145)
[2023-06-07] MEDS: Pregabalin 25 MG Capsule PO ×2 (09:40→21:05)
[2023-06-07] MEDS: dilTIAZem 60 MG Tablet 120 MG PO ×2 (09:40→20:54)
[2023-06-07] MEDS: Pantoprazole Sodium 40 MG Tablet PO ×2 (09:40→20:54)
[2023-06-07] MEDS: guaiFENesin 1,200 MG Tablet 1200 MG PO ×2 (11:11→20:54)
[2023-06-07] MEDS: Insulin Lispro 100 UNIT/ML INSULN.PEN SC ×2 (11:18→17:00)
--- NOTE | 2023-06-07 11:25 | CASEMGMT ---
GERMAINE HUBBARD Assessment: Face to Face with pt for initial transition planning/care coordination assessment. GERMAINE HUBBARD introduced self and role at [facility], pt voices understanding and consents to assessment. Pt is A&O x4 and answers all questions appropriately at this time. Pt sitting up in bed in no distress with oxygen on. Care providers, pharmacy, and demographics verified/updated. Admitting Dx: shortness of breath with hypoxia PCP:Dima Specialists:Martin, pulm; Friend, GI; Anthony, pain mgmt; WHG, cardio Preferred [facility]acy: [facility] Insurance: [employer] Prescription Benefit: yes LNOK: Juan Carlos Martines, ; Tonia Conrad, dtr DPOA: Juan Carlos Martines Living Arrangements: Pt lives with in a single story home with 1 step to enter. Pt reports she is I in ADL's and denies concerns at home. Pt does own meals, laundry and gets groceries. Pt denies concerns at home. Transportation: Pt drives self and denies concerns with transportation. DME:pox, nebulizer, INR machine HHC/SNF: Pt has had [facility] HHC in the past, denies SNF stays. Pt states no concerns with going home at time of dc. Pt states no further concerns/needs. CM to follow for home oxygen. Provided pt with a local in network verbal list of DME providers, pt chose [employer] should she need oxygen. Advised pt to ask CM if any further question/concerns/needs arise, voices understanding. Pt Goal: Home Plan: Home, follow for oxygen
[2023-06-07 11:40] LABS: Bedside Glucose 280 mg/dL (74-106)
[2023-06-07 12:36] LABS: Pathologist Review Reviewed
[2023-06-07] MEDS: 0.9 % NaCl (Sterile) Posiflush 10 mL IV (14:25)
[2023-06-07 16:33] LABS: Bedside Glucose 204 mg/dL (74-106)
[2023-06-07] MEDS: Montelukast 10 MG Tablet PO (20:54)
[2023-06-07] MEDS: DULoxetine Hcl 60 MG Capsule PO (20:54)
[2023-06-07] MEDS: Enoxaparin 80 MG/0.8 ML Syringe SC (20:54)
[2023-06-07] MEDS: Amitriptyline 100 MG Tablet 50 MG PO (20:54)
[2023-06-07 22:30] LABS: Bedside Glucose 237 mg/dL (74-106)
[2023-06-08 03:58] VITALS: BP 144/68; PULSE 86; RESP 18; TEMP 36.8; O2SAT 93
[2023-06-08] MEDS: Insulin Lispro 100 UNIT/ML INSULN.PEN SC ×2 (06:35→11:19)
[2023-06-08] MEDS: 0.9% Saline Lock 10 ML Syringe IV ×3 (06:37→14:45)
[2023-06-08 07:00] LABS: Bedside Glucose 179 mg/dL (74-106)
[2023-06-08] MEDS: Ipratropium/Albuterol Sulfate 3 ML AMPUL.NEB INHALATION ×2 (07:01→10:29)
[2023-06-08 07:03] VITALS: PULSE 79; RESP 19; O2SAT 95
[2023-06-08] MEDS: Pantoprazole Sodium 40 MG Tablet PO (08:41)
[2023-06-08] MEDS: guaiFENesin 1,200 MG Tablet 1200 MG PO (08:41)
[2023-06-08] MEDS: Enoxaparin 80 MG/0.8 ML Syringe SC (08:41)
[2023-06-08 08:44] VITALS: BP 156/63; PULSE 86; RESP 18; TEMP 36.8; O2SAT 94
[2023-06-08 08:45] VITALS: O2SAT 94
[2023-06-08 08:45] LABS: Absolute Lymphocyte Count 0.52 X10^3/uL (0.83-4.51); Absolute Neutrophil Count 11.9 X10^3/uL (2.0-7.7); Basophil# 0.01 X10^3/uL; Basophil% 0.1 % (0-1); Hematocrit 39.5 % (37-47); Lymphocyte # 0.52 X10^3/ul (0.83-4.51); Lymphocyte % 4.1 % (19-41); Mean Corp Hgb Conc 32.9 g/dL (32-36); Mean Corpuscular Hgb 29.5 pg (27.0-32.0); Mean Corpuscular Volume 89.6 fL (81-99); Mean Platelet Vol. 9.9 fl (6.2-12.0); Monocyte# 0.27 X10^3/uL; Monocyte% 2.1 % (0-10); NRBC Flagged by Analyzer 0 % (0-5); Neutrophil # 11.85 X10^3/uL (2.7-7.7); Neutrophil % 93.4 % (47-70); POSITIVE DIFFERENTIAL YES; Platelet Count 310 K/mm3 (150-450); RBC Distribution Width CV 15.2 % (11.6-14.6); RBC Distribution Width SD 50.3 fl (35.1-43.9); Red Blood Count 4.41 M/mm3 (4.2-5.4); White Blood Count 12.7 K/mm3 (4.4-11.0)
[2023-06-08 08:48] LABS: Differential Indicated SCAN CRITERIA MET
[2023-06-08 08:49] LABS: International Normalized Ratio 2.4; Prothrombin Time (Protime)PT. 26.2 SECONDS (11.7-14.9)
[2023-06-08 09:05] LABS: Anion Gap 6 (5-15); BUN 19 mg/dL (7-18); BUN/Creat Ratio 24.9 RATIO (10-20); Calcium,Total 9.1 mg/dL (8.5-10.1); Chloride 101 mmol/L (98-107); Creatinine, Serum 0.76 mg/dL (0.55-1.02); EST Glomerular Filtration Rate 80 mL/min (>60); Est Glom Filt Rate - Afr Amer 97 mL/min (>60); Estimated Creatinine Clearance 68.68 ml/min; Glucose 185 mg/dL (74-106); Sodium Level 133 mmol/L (136-145)
[2023-06-08] MEDS: Pregabalin 25 MG Capsule PO (09:27)
[2023-06-08] MEDS: dilTIAZem 60 MG Tablet 120 MG PO (09:27)
--- NOTE | 2023-06-08 10:15 | DCINST_ITS ---
Discharge Instructions Diet Discharge Diet: No restrictions Activity Discharge Activity: Return to Normal Activity Weight Bearing Status: Weight bearing as tolerated Dressing / Incision Call your doctor if you observe: Fever of 101 or Higher, Coldness, Increased Pain, Numbness or Tingling, Change in Color, Inability to urinate, Inability to have a bowel movement, Using more than 1 pad per hour, Shortness of breath, Dizziness, Fainting spells, Swelling in the ankles, Chest pain, Prolonged hiccupping, Increased palpitations (irregular heartbeat) and Calf discomfort Follow Up Care When: IN 2 WEEKS Test Results: Test results from this visit will be discussed in further detail at your follow- up appointment, if applicable. Discharge Plan Admission Admit Date/Time: 06/06/23 17:38 Primary Reason for Your Visit: Interstitial lung disease, RSV infection. Attending Provider: Amadou Barrientos Primary Care Provider: Sarah Ch Consulting Providers: Huang Tavarez; Kelyl Dsouza Discharge Orders/Prescriptions Prescriptions: New dextromethorphan-guaifenesin [Mucinex DM] 60-1,200 mg tablet extended release 12 hr 1 tab PO Q12H 7 Days Qty: 14 0RF prednisone 20 mg tablet 20 mg PO DAILY Qty: 22 0RF Rx Instructions: 40 mg daily for 4 days, 30 mg for 4 days, 20 mg for 4 days and 10 mg 8 days Continued warfarin 4 mg tablet 3 mg PO QHS Protocol: Dose Management Protocol Text: Patient Instructed to take: warfarin 4 mg (1 Tab) on [place], MO, TU, TH, FR, SA warfarin 4 mg (1.5 Tabs) on WE Patient Comments: [address] Ch is taking over management 10/09/18; pregabalin 25 mg capsule 25 mg PO BID diltiazem HCl [Cardizem] 120 mg tablet 120 mg PO BID nitroglycerin [Nitrostat] 0.4 mg tablet, sublingual 0.4 mg sublingual Q5-15M PRN (Reason: chest pain) Qty: 25 3RF Rx Instructions: do not exceed 3 doses per episode montelukast 10 MG tablet 10 mg PO QHS Patient Comments: breathing duloxetine 60 MG capsule 60 mg PO QHS Patient Comments: mental health amitriptyline 100 MG tablet 50 mg PO QHS Patient Comments: mental health zolpidem 10 MG tablet 10 mg PO QHS PRN PRN (Reason: Sleep) Patient Comments: sleep albuterol sulfate 6.7 GM HFA aerosol inhaler 6.7 g IH PRN PRN (Reason: Sob &/Or Wheezing) Patient Comments: breathing multivitamin with folic acid 1 TABLET tablet 1 tab PO DAILY Patient Comments: supplement tizanidine 4 MG tablet 4 mg PO TID Patient Comments: muscle relaxer ascorbic acid (vitamin C) 500 MG tablet 1,000 mg PO DAILY@0800 Patient Comments: supplment ibuprofen 200 MG tablet 400 mg PO BID PRN PRN (Reason: Pain) Patient Comments: pain ergocalciferol (vitamin D2) 50,000 unit capsule 50,000 unit PO TUTH Patient Comments: TWICE WEEKLY ON TUESDAY & TUESDAY supplement calcium carbonate 500 MG tablet 500 mg PO DAILY@0800 Patient Comments: supplement omeprazole 40 MG capsule 40 mg PO BID albuterol sulfate 2.5 MG/3 ML solution for nebulization 2.5 mg INHALATION Q4H PRN PRN (Reason: Wheezing) hydrocodone-acetaminophen 5-325 mg tablet 1 tab PO TID PRN (Reason: pain) Patient Comments: TAKE ONE TABLET BY MOUTH THREE TIMES DAILY NEEDED FOR PAIN fentanyl 25 mcg/hr patch 72 hour 1 patch transdermal Q72H Patient Comments: APPLY ONE PATCH TO SKIN EVERY 72 HOURS TO be used in conjunction with THE 12mg fluticasone propion-salmeterol 232-14 mcg/actuation aerosol powdr breath activated 1 inh INHALATION DAILY Patient Comments: INHALE 1 PUFF TWICE DAILY amlodipine [Norvasc] 5 mg tablet 5 mg PO DAILY Zenpep 40,000-126,000- 168,000 unit capsule,delayed release(DR/EC) See Rx Instructions PO .COMPLEX Qty: 180 11RF Rx Instructions: take 1-2 with snacks and 2-3 with meals. EPI K86.81 Discontinued fentanyl 37.5 mcg/hour patch 72 hour 1 patch transdermal Q72H Patient Comments: apply ONE PATCH every 72Hours - DO not fill UNTIL 04/29/23] Referrals / Follow Up: Sarah Ch MD [Primary Care Provider] - Brandan Salazar MD [Med Staff - Active Staff] - Within 2 Weeks Disposition Disposition (needs filled in before D/C Order can be placed): Home, Self Care
[2023-06-08 10:31] VITALS: PULSE 81; RESP 16; O2SAT 95
[2023-06-08 11:21] VITALS: BP 135/56; PULSE 89; RESP 18; TEMP 36.6; O2SAT 93
[2023-06-08 11:41] LABS: Bedside Glucose 238 mg/dL (74-106)
--- NOTE | 2023-06-08 14:10 | DS.PCM_ITS ---
Providers Date of Admission: 06/06/23 Date of Discharge: 06/08/23 Primary Care Physician: Dr. Sarah Ch MD Reason For Visit: SHORTNESS OF BREATH WITH HYPOXIA Diagnosis Discharge Diagnosis (1) Hypoxia: Status: Acute Code(s): R09.02 - Hypoxemia (2) Shortness of breath: Status: Acute Code(s): R06.02 - Shortness of breath (3) RSV infection: Status: Acute Code(s): B33.8 - Other specified viral diseases Plan 68-year-old female was admitted with shortness of breath fever chills as well as myalgia for 3 to 4 days. Patient was found hypoxic 88% on room air in triage. Shortness of breath/hypoxia secondary to RSV infection -Respiratory viral panel was positive for RSV a -Patient was not vaccinated for RSV -Continue scheduled and as needed aerosols -Continue IV steroids -Continue incentive spirometry -Continue Pep therapy Mucinex was prescribed. -Patient currently requiring 4 L nasal cannula to maintain oxygen saturations -06/08: Patient was gradually weaned off to room air. Patient wants to go home. Advised follow-up with Dr. Salazar. Recommended RSV vaccination. Home oxygen qualification was done patient did not qualify for advised to further follow-up with Dr. Salazar. - Hyperglycemia -Likely related to acute steroid use -No documented history of diabetes -We will check hemoglobin A1c -Glucose is elevated due to Solu-Medrol Pulmonary fibrosis/ILD -Patient is not O2 dependent at baseline -Follows as an outpatient with Dr. Salazar -Restart inhalers at discharge Hypertension/hyperlipidemia/LBBB -Patient underwent testing recently due to left bundle branch block which was unremarkable -Continue home diltiazem -Continue home amlodipine -Patient is not on anything for cholesterol continue outpatient follow-up GERD -Continue home PPI Chronic pancreatitis -Continue home medications History of DVT -Continue Coumadin -Repeat INR in a.m. -Currently is subtherapeutic so we will place on therapeutic Lovenox until INR is greater than 2 then stop Lovenox -Increase warfarin from 2.5 to 3 mg nightly Chronic pain/fibromyalgia -Continue home as needed ibuprofen -Continue home fentanyl patch -Continue home tizanidine -Continue home Lyrica Depression/anxiety -Continue home amitriptyline -Can home duloxetine Insomnia -Hold home zolpidem for now with respiratory status DVT prophylaxis -INR is 1.6 and patient is chronically on Coumadin -With INR being subtherapeutic we will place on therapeutic dose Lovenox until INR is greater than 2 due to history of DVT Prescription given long tapering dose of prednisone. Prescription also given for Mucinex DM and warfarin 3 mg daily. Advised INR in 2 days. Discharge medication reconciliation done. Discharge follow-up instructions completed. Discharge process discussed with the patient and all questions were answered to patient's satisfaction. Follow with PCP in 1 to 2 weeks Total time spent, exact 35 minutes on discharge meds reconciliation, examination, coordination of care with nurses and ancillary staff, review of imaging and blood test and discussion with the patient on follow-up instructions. Medications at Discharge Home Medications amitriptyline 100 mg tablet 50 mg PO QHS sleep 07/30/13 duloxetine 60 mg capsule,delayed release 60 mg PO QHS mental health 07/30/13 montelukast 10 mg tablet 10 mg PO QHS breathing 07/30/13 albuterol sulfate 90 mcg/actuation aerosol inhaler 6.7 g IH PRN PRN Sob &/Or Wheezing 08/29/13 multivitamin with folic acid 400 mcg tablet 1 tab PO DAILY vitamin 08/29/13 zolpidem 10 mg tablet 10 mg PO QHS PRN PRN Sleep 08/29/13 tizanidine 4 mg tablet 4 mg PO TID MUSCLE RELAXER 07/31/15 ascorbic acid (vitamin C) 500 mg tablet 1,000 mg PO DAILY@0800 supplement 09/08/15 ibuprofen 200 mg tablet 400 mg PO BID PRN PRN Pain 09/08/15 calcium carbonate 500 mg calcium (1,250 mg) tablet 500 mg PO DAILY@0800 supplement 10/20/15 omeprazole 40 mg capsule,delayed release 40 mg PO BID reflux 03/17/16 albuterol sulfate 2.5 mg/3 mL (0.083 %) solution for nebulization 2.5 mg inhalation Q4H PRN PRN Wheezing 08/03/17 ergocalciferol (vitamin D2) 1,250 mcg (50,000 unit) capsule 50,000 unit PO TUTH supplement 10/09/18 pregabalin 25 mg capsule 25 mg PO BID neuropathy 06/04/22 fentanyl 25 mcg/hr transdermal patch 1 patch transdermal Q72H pain 10/25/22 hydrocodone-acetaminophen 5-325mg 5mg-325mg 1 tab PO TID PRN pain 10/25/22 [id number]-[id number] 40,000-126,000-168,000 unit capsule, delay rel (Zenpep) See Rx Instructions PO .COMPLEX supplement #180 caps 11/18/22 fluticasone 232 mcg-salmeterol 14 mcg/actuation breath activated powdr 1 inh inhalation DAILY breathing 01/26/23 diltiazem HCl 120 mg tablet (Cardizem) 120 mg PO BID heart rate 05/05/23 nitroglycerin 0.4 mg sublingual tablet (Nitrostat) 0.4 mg sublingual Q5-15M PRN chest pain #25 tabs 05/05/23 amlodipine 5 mg tablet (Norvasc) 5 mg PO DAILY blood pressure 06/06/23 dextromethorphan-guaifenesin ER 60 mg-1,200 mg tab,extend release,12hr (Mucinex DM) 1 tab PO Q12H 7 days #14 tabs 06/08/23 prednisone 20 mg tablet 20 mg PO DAILY #22 tabs 06/08/23 warfarin 3 mg tablet 3 mg PO QHS #30 tabs 06/08/23 Physical Exam Narrative Seen and examined. Patient denies any shortness of breath. She is walking around within the room. On droplet and contact precaution due to RSV. Physical exam General: Alert, Oriented x3, Cooperative HEENT: Atraumatic, PERRLA, EOMI, Normocephalic Oral: No Gingival or Mucosal Lesions/ Ulcerations Neck: Supple, No JVD, Negative Carotid Bruits Lungs: Air entry diminished in bilateral lung bases. Fine expiratory rhonchi and wheezing present. Hypoxia resolved. Cardiovascular: Regular rate, Regular Rhythm, Normal S1, Normal S2, No murmurs Abdomen: Bowel Sounds Present, Soft, Non Tender, Non-Distended : No renal angle tenderness. No suprapubic tenderness. Extremities: No edema, Capillary Refill Less than 3 Seconds Skin: No rashes, No breakdown Musculoskeletal: No Tenderness to Palpation of Joints or Extremities Neurological: Cranial nerves II-XII grossly intact, DTR 2+/4. No acute focal neurological deficit. Psych/Mental Status: Normal Affect, Appropriate. Weight / BMI Weight Weight: 175 lb 11.2 oz Body Mass Index (BMI) 35.4 ABG / Lab / Microbiology Data 06/08/23 08:10 06/08/23 08:10 Laboratory: Laboratory Results - last 24 hr 06/07/23 16:04: POC Glucose 204 H 06/07/23 20:40: POC Glucose 237 H 06/08/23 06:35: POC Glucose 179 H 06/08/23 08:10: WBC 12.7 H, RBC 4.41, Hgb 13.0, Hct 39.5, MCV 89.6, MCH 29.5, MCHC 32.9, RDW Std Deviation 50.3 H, RDW Coeff of Darrick 15.2 H, Plt Count 310, MPV 9.9, Immature Gran % (Auto) 0.300, Neut % (Auto) 93.4 H, Lymph % (Auto) 4.1 L, [place] % (Auto) 2.1, Eos % (Auto) 0.0, Baso % (Auto) 0.1, Absolute Neuts (auto) 11.9 H, Absolute Lymphs (auto) 0.52 L, Nucleated RBC % 0, Differential Comment COMMENT, PT 26.2 H, INR 2.4, Sodium 133 L, Potassium 4.0, Chloride 101, Carbon Dioxide 26.0, Anion Gap 6, BUN 19 H, Creatinine 0.76, Estim Creat Clear Calc 68. 68, Est GFR (MDRD) Af Amer 97, Est GFR (MDRD) Non-Af 80, BUN/Creatinine Ratio 24.9 H, Glucose 185 H, Calcium 9.1 06/08/23 11:16: POC Glucose 238 H Microbiology: Microbiology 06/06/23 18:01 Mucosa - Nasopharyngeal Respiratory Panel (PCR) - Final RSV A 06/06/23 15:28 Nasal Secretion SARS-CoV-2 & FLU Antigen (Rapid) - Final D/C Instructions Discharge Diet: No restrictions Weight Bearing Status: Weight bearing as tolerated Call your doctor if you observe: Fever of 101 or Higher, Coldness, Increased Pain, Numbness or Tingling, Change in Color, Inability to urinate, Inability to have a bowel movement, Using more than 1 pad per hour, Shortness of breath, Dizziness, Fainting spells, Swelling in the ankles, Chest pain, Prolonged hiccupping, Increased palpitations (irregular heartbeat) and Calf discomfort When: IN 2 WEEKS Meaningful Use Info Meaningful Use Diagnoses (Choose all that apply): None applicable Discharge Plan Admission Admit Date/Time: 06/06/23 17:38 Primary Reason for Your Visit: Interstitial lung disease, RSV infection. Attending Provider: Amadou Barrientos Primary Care Provider: Sarah Ch Consulting Providers: Huang Tavarez; Kelly Dsouza Instructions Additional Instructions / Restrictions: PT/INR on weight 23 and follow with PCP to titrate the dose of warfarin. Discharge Orders/Prescriptions Prescriptions: New dextromethorphan-guaifenesin [Mucinex DM] 60-1,200 mg tablet extended release 12 hr 1 tab PO Q12H 7 Days Qty: 14 0RF prednisone 20 mg tablet 20 mg PO DAILY Qty: 22 0RF Rx Instructions: 40 mg daily for 4 days, 30 mg for 4 days, 20 mg for 4 days and 10 mg 8 days warfarin 3 mg tablet 3 mg PO QHS Qty: 30 0RF Rx Instructions: Hold if INR is more than 2.9 Continued pregabalin 25 mg capsule 25 mg PO BID diltiazem HCl [Cardizem] 120 mg tablet 120 mg PO BID nitroglycerin [Nitrostat] 0.4 mg tablet, sublingual 0.4 mg sublingual Q5-15M PRN (Reason: chest pain) Qty: 25 3RF Rx Instructions: do not exceed 3 doses per episode montelukast 10 MG tablet 10 mg PO QHS Patient Comments: breathing duloxetine 60 MG capsule 60 mg PO QHS Patient Comments: mental health amitriptyline 100 MG tablet 50 mg PO QHS Patient Comments: mental health zolpidem 10 MG tablet 10 mg PO QHS PRN PRN (Reason: Sleep) Patient Comments: sleep albuterol sulfate 6.7 GM HFA aerosol inhaler 6.7 g IH PRN PRN (Reason: Sob &/Or Wheezing) Patient Comments: breathing multivitamin with folic acid 1 TABLET tablet 1 tab PO DAILY Patient Comments: supplement tizanidine 4 MG tablet 4 mg PO TID Patient Comments: muscle relaxer ascorbic acid (vitamin C) 500 MG tablet 1,000 mg PO DAILY@0800 Patient Comments: supplment ibuprofen 200 MG tablet 400 mg PO BID PRN PRN (Reason: Pain) Patient Comments: pain ergocalciferol (vitamin D2) 50,000 unit capsule 50,000 unit PO TUTH Patient Comments: TWICE WEEKLY ON TUESDAY & TUESDAY supplement calcium carbonate 500 MG tablet 500 mg PO DAILY@0800 Patient Comments: supplement omeprazole 40 MG capsule 40 mg PO BID albuterol sulfate 2.5 MG/3 ML solution for nebulization 2.5 mg INHALATION Q4H PRN PRN (Reason: Wheezing) hydrocodone-acetaminophen 5-325 mg tablet 1 tab PO TID PRN (Reason: pain) Patient Comments: TAKE ONE TABLET BY MOUTH THREE TIMES DAILY NEEDED FOR PAIN fentanyl 25 mcg/hr patch 72 hour 1 patch transdermal Q72H Patient Comments: APPLY ONE PATCH TO SKIN EVERY 72 HOURS TO be used in conjunction with THE 12mg fluticasone propion-salmeterol 232-14 mcg/actuation aerosol powdr breath acti vated 1 inh INHALATION DAILY Patient Comments: INHALE 1 PUFF TWICE DAILY amlodipine [Norvasc] 5 mg tablet 5 mg PO DAILY Zenpep 40,000-126,000- 168,000 unit capsule,delayed release(DR/EC) See Rx Instructions PO .COMPLEX Qty: 180 11RF Rx Instructions: take 1-2 with snacks and 2-3 with meals. EPI K86.81 Discontinued warfarin 4 mg tablet 3 mg PO QHS Protocol: Dose Management Protocol Text: Patient Instructed to take: warfarin 4 mg (1 Tab) on , , , , , SA warfarin 4 mg (1.5 Tabs) on Patient Comments: [address] Ch is taking over management 10/09/18; fentanyl 37.5 mcg/hour patch 72 hour 1 patch transdermal Q72H Patient Comments: apply ONE PATCH every 72Hours - DO not fill UNTIL 04/29/23] Referrals / Follow Up: Sarah Ch MD [Primary Care Provider] - Brandan Salazar MD [Med Staff - Active Staff] - 06/14/23 2:30 pm Disposition Disposition (needs filled in before D/C Order can be placed): Home, Self Care Charges/Coding Visit Charges Inpatient E&M: 31602 Disch Hosp >30min
--- NOTE | 2023-06-08 14:24 | CASEMGMT ---
Pt does not require oxygen at home. Pt to dc this date.
--- NOTE | 2023-06-08 15:56 | PHA.DC_ITS ---
Pharmacy OR Med Reconciliation Pharmacy Service has performed discharge medication reconciliation for this patient. Attempted to cancer genetic counselor via telephone due to precautions but patient did not answer. Medications reviewed. The patient's discharge medication list was reviewed for discrepancies and discrepancies were resolved. Medications at Discharge Home Medications amitriptyline 100 mg tablet 50 mg PO QHS sleep 07/30/13 duloxetine 60 mg capsule,delayed release 60 mg PO QHS mental health 07/30/13 montelukast 10 mg tablet 10 mg PO QHS breathing 07/30/13 albuterol sulfate 90 mcg/actuation aerosol inhaler 6.7 g IH PRN PRN Sob &/Or Wheezing 08/29/13 multivitamin with folic acid 400 mcg tablet 1 tab PO DAILY vitamin 08/29/13 zolpidem 10 mg tablet 10 mg PO QHS PRN PRN Sleep 08/29/13 tizanidine 4 mg tablet 4 mg PO TID MUSCLE RELAXER 07/31/15 ascorbic acid (vitamin C) 500 mg tablet 1,000 mg PO DAILY@0800 supplement 09/08/15 ibuprofen 200 mg tablet 400 mg PO BID PRN PRN Pain 09/08/15 calcium carbonate 500 mg calcium (1,250 mg) tablet 500 mg PO DAILY@0800 supplement 10/20/15 omeprazole 40 mg capsule,delayed release 40 mg PO BID reflux 03/17/16 albuterol sulfate 2.5 mg/3 mL (0.083 %) solution for nebulization 2.5 mg inhalation Q4H PRN PRN Wheezing 08/03/17 ergocalciferol (vitamin D2) 1,250 mcg (50,000 unit) capsule 50,000 unit PO TUTH supplement 10/09/18 pregabalin 25 mg capsule 25 mg PO BID neuropathy 06/04/22 fentanyl 25 mcg/hr transdermal patch 1 patch transdermal Q72H pain 10/25/22 hydrocodone-acetaminophen 5-325mg 5mg-325mg 1 tab PO TID PRN pain 10/25/22 qozrqt-eoyyhowh-lljnubr 40,000-126,000-168,000 unit capsule, delay rel (Zenpep) See Rx Instructions PO .COMPLEX supplement #180 caps 11/18/22 fluticasone 232 mcg-salmeterol 14 mcg/actuation breath activated powdr 1 inh inhalation DAILY breathing 01/26/23 diltiazem HCl 120 mg tablet (Cardizem) 120 mg PO BID heart rate 05/05/23 nitroglycerin 0.4 mg sublingual tablet (Nitrostat) 0.4 mg sublingual Q5-15M PRN chest pain #25 tabs 05/05/23 amlodipine 5 mg tablet (Norvasc) 5 mg PO DAILY blood pressure 06/06/23 dextromethorphan-guaifenesin ER 60 mg-1,200 mg tab,extend release,12hr (Mucinex DM) 1 tab PO Q12H 7 days #14 tabs 06/08/23 prednisone 20 mg tablet 20 mg PO DAILY #22 tabs 06/08/23 warfarin 3 mg tablet 3 mg PO QHS #30 tabs 06/08/23
--- NOTE | 2023-06-13 10:46 | CASEMGMT ---
GERMAINE HUBBARD F/U: Notified by GERMAINE Delgado of pt's request for home delivered meals. Noted pt with [employer] insurance. [employer] contacted and request made. Pt will receive 14 meals with planned delivery tomorrow, June 14. GERMAINE Delgado notified of this arrangement. Waldemar Villegas RN CM
== END 2023-06-08 15:00 | disposition home or self-care (01) | DRG 202 ==
LOC: ED 17:35 → MS3 17:38
PROVIDERS: Internal Medicine; Physician Assistant; Admitting Provider Family Medicine; Emergency Provider Emergency Medicine; PCP Internal Medicine; Visit Provider Internal Medicine
DX: J20.5 Acute bronchitis due to respiratory syncytial virus (principal); J44.0 Chronic obstructive pulmonary disease with (acute) lower respiratory infection; J84.9 Interstitial pulmonary disease, unspecified; J44.1 Chronic obstructive pulmonary disease with (acute) exacerbation; K86.1 Other chronic pancreatitis; I10 Essential (primary) hypertension; F32.A Depression, unspecified; E78.5 Hyperlipidemia, unspecified; M79.7 Fibromyalgia; K21.9 Gastro-esophageal reflux disease without esophagitis; F41.9 Anxiety disorder, unspecified; R73.9 Hyperglycemia, unspecified; T38.0X5A Adverse effect of glucocorticoids and synthetic analogues, initial encounter; G89.29 Other chronic pain; Z11.52 Encounter for screening for COVID-19; Z79.01 Long term (current) use of anticoagulants; R09.02 Hypoxemia; G47.00 Insomnia, unspecified; Z79.51 Long term (current) use of inhaled steroids; Z86.718 Personal history of other venous thrombosis and embolism
CPT/HCPCS: 36415; 36591; 71046; 80048; 82962; 83036; 83690; 83880; 84484; 85025; 85610; 87428; 87633; 93005; 94640; 94668; 99252; 99284; A4216; G0463

== ENCOUNTER → 2023-09-08 | Outpatient (CLI) | payer MEDICARE, SELFPAY ==
--- NOTE | 2023-09-08 14:24 | BI_ITS ---
MAMMOGRAPHY - BILATERAL SCREENING 3-D TOMOSYNTHESIS REASON FOR EXAM: Female, 68 years old. Encounter for screening mammogram for malignant neoplasm of breas PERTINENT HISTORY: No significant family history. TECHNIQUE: 2-D mammograms and 3-D Tomosynthesis of the breast (s) were performed. CAD was performed. COMPARISON: 06/17/2022 FINDINGS: The breast composition is heterogeneously dense that can obscure small breast masses. Scattered benign calcifications are seen. No dense spiculated masses or suspicious microcalcifications are identified. No architectural distortion is identified. There is no skin thickening or retraction. There has been no significant change since the prior study. BI/SCRN MAMM (CAD)W/KIMBERLEE BILAT IMPRESSION: No mammographic signs of malignancy. Routine yearly mammograms recommended. ASSESSMENT CATEGORY: BIRADS Category 1: Negative. A letter regarding these results will be sent to the patient by the facility within 30 days. FOLLOW UP RECOMMENDATION: Yearly follow up mammogram recommended. (A) Approximately 10% of breast cancers are not detected by mammography. A normal mammogram should not delay biopsy of a clinically suspicious abnormality. Electronically Signed: Kana Quinteros MD at 15:56 EST ,
--- NOTE | 2023-09-08 15:07 | RAD_ITS ---
STUDY: X-RAY CHEST REASON FOR EXAM: Female, 68 years old. abnormal chest xray TECHNIQUE: Frontal and lateral views of the chest. COMPARISON: 06/29/2023. FINDINGS: Right and left indwelling catheters are stable. The lungs are clear and expanded. There is no demonstrated pleural abnormality. Normal size heart. Normal mediastinum and yu. Normal visualized pulmonary arteries. Normal visualized aortic arch and descending thoracic aorta. Normal visualized thoracic spine. Normal visualized ribs, clavicles, and shoulders. There is no demonstrated abnormality of the visualized soft tissue structures of the upper abdomen. RAD/Chest PA and Lateral IMPRESSION: No definite acute or significant abnormality seen. Electronically Signed: Gurdeep Vaca MD at 20:00 EST ,
== END | disposition home or self-care (01) ==
PROVIDERS: PCP Internal Medicine; Referring Provider Internal Medicine; Visit Provider Internal Medicine
DX: Z12.31 Encounter for screening mammogram for malignant neoplasm of breast (principal); Z95.828 Presence of other vascular implants and grafts; R93.89 Abnormal findings on diagnostic imaging of other specified body structures
CPT/HCPCS: 71046; 77063; 77067; 96523

== ENCOUNTER 2023-10-25 12:08 | Outpatient (CLI) | payer MEDICARE, SELFPAY ==
[2023-10-25] MEDS: 0.9 % NaCl (Sterile) Posiflush 10 mL IV (12:32)
[2023-10-25] MEDS: 0.9% NaCl VAD Flush IV ×2 (12:33→14:52)
[2023-10-25] MEDS: 0.9% NaCl IVPB Med Flush (250 mL) 15 ML IV (12:34)
[2023-10-25 12:49] VITALS: BP 173/62; PULSE 73; RESP 16; TEMP 35.8; O2SAT 98; BMI 35.9
[2023-10-25] MEDS: NORMAL SALINE 0.9% IV (12:54)
[2023-10-25] MEDS: IRON SUCROSE COMPLEX IV (12:54)
[2023-10-25 14:54] VITALS: BP 155/65; PULSE 70; RESP 16; TEMP 35.8; O2SAT 98
[2023-10-26 13:07] LABS: Carbohydrate Ag 19-9 2261 13 U/mL (0-35)
== END 2023-10-25 12:09 | disposition home or self-care (01) ==
LOC: MEDOUTP 12:08
PROVIDERS: PCP Internal Medicine; Referring Provider Internal Medicine Gastroenterology; Visit Provider Internal Medicine Gastroenterology
DX: D50.9 Iron deficiency anemia, unspecified (principal); K50.90 Crohn's disease, unspecified, without complications
CPT/HCPCS: 96365; 96366; 36591; 86301; J1756; J7050; A4216

== ENCOUNTER 2023-10-27 13:01 | Outpatient (RCR) | payer MEDICARE, SELFPAY ==
[2023-10-27 13:19] VITALS: BP 184/79; PULSE 73; RESP 20; TEMP 36.1; BMI 36.0
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
--- NOTE | 2023-10-28 10:05 | WC ---
10/27/2023 (I) RIGHT UPPER ARM
== END 2023-11-01 23:59 | disposition home or self-care (01) ==
LOC: WC 13:01
PROVIDERS: PCP Internal Medicine; Referring Provider Internal Medicine; Visit Provider Physician Assistant
DX: S41.101A Unspecified open wound of right upper arm, initial encounter (principal); K86.1 Other chronic pancreatitis; J44.9 Chronic obstructive pulmonary disease, unspecified; T22.23 Burn of second degree of upper arm; X16.XXXS Contact with hot heating appliances, radiators and pipes, sequela; I10 Essential (primary) hypertension; M79.7 Fibromyalgia; Z79.01 Long term (current) use of anticoagulants; Z79.899 Other long term (current) drug therapy
CPT/HCPCS: 11042; 87070; 87075; 87205; 99203; G0463

== ENCOUNTER → 2023-11-03 | Outpatient (CLI) | payer MEDICARE, SELFPAY ==
--- NOTE | 2023-11-03 10:32 | MRI_ITS ---
STUDY: MR CHOLANGIOPANCREATOGRAPHY (MRCP) REASON FOR EXAM: Female, 68 years old. Acute on Chronic pancreatitis TECHNIQUE: Standard MRCP technique was utilized. 3-D reconstructions were performed. COMPARISON: CT 12/21/2022 FINDINGS: Gall Bladder: Gall bladder is surgically absent. Cystic duct: Normal with no demonstrated fixed filling defect. Intrahepatic ducts: Normal visualized intrahepatic ducts with no demonstrated fixed filling defect, dilation or stricture. Common hepatic duct: Normal with no demonstrated fixed filling defect, dilation or stricture. Common bile duct: Normal with no demonstrated fixed filling defect, dilation or stricture. Pancreatic duct: Normal with no demonstrated fixed filling defect, dilation or stricture. MRI/MRCP Abdomen without Contrast IMPRESSION: Normal MRCP in a patient who is status post cholecystectomy. Electronically Signed: Kana Quinteros MD at 23:22 EDT ,
== END | disposition home or self-care (01) ==
LOC: MRI 10:28
PROVIDERS: PCP Internal Medicine; Referring Provider Internal Medicine Gastroenterology; Visit Provider Internal Medicine Gastroenterology
DX: K86.1 Other chronic pancreatitis (principal)
CPT/HCPCS: 74181

== ENCOUNTER 2023-11-08 12:30 | Outpatient (CLI) | payer MEDICARE, SELFPAY ==
[2023-11-08 12:41] VITALS: BP 145/77; PULSE 72; RESP 16; TEMP 36.1; O2SAT 99; BMI 36.3
[2023-11-08] MEDS: 0.9% NaCl IVPB Med Flush (250 mL) 15 ML IV (12:53)
[2023-11-08] MEDS: IRON SUCROSE COMPLEX IV (13:02)
[2023-11-08] MEDS: NORMAL SALINE 0.9% IV (13:02)
[2023-11-08] MEDS: 0.9% NaCl PICC Flush IV (14:44)
[2023-11-08 14:48] VITALS: BP 180/58; PULSE 67; RESP 16; O2SAT 98
== END 2023-11-08 12:31 | disposition home or self-care (01) ==
LOC: MEDOUTP 12:30
PROVIDERS: PCP Internal Medicine; Referring Provider Internal Medicine; Visit Provider Internal Medicine
DX: D50.9 Iron deficiency anemia, unspecified (principal)
CPT/HCPCS: 96365; 96366; J1756; J7050; A4216

== ENCOUNTER 2023-12-01 14:30 | Outpatient (RCR) | payer MEDICARE, SELFPAY ==
[2023-11-02 00:57] VITALS: BP 184/79; PULSE 73; RESP 20; TEMP 36.1; BMI 36.0
[2023-11-10 13:13] VITALS: BP 183/74; PULSE 80; RESP 20; TEMP 36.6; BMI 36.0
--- NOTE | 2023-11-10 18:05 | PCM.WC.PN ---
History of Present Illness Date of Service: 11/10/23 Chief Complaint: R upper arm wound History of Wound: Tana Martines is a very pleasant 68 y/o female who presents to the wound healing center today for evaluation and management of a R upper arm wound. She is referred by Dr. Ch. She is accompanied to her appointment today by her who does help with wound care. This wound has been present for 4 weeks now. Four weeks ago, she fell asleep on a heating pad that she used for back pain. Somehow, it ended up bunched at her arm and it burned the skin there. Initially, she reports she had a very large blister which eventually ruptured and left behind this wound. As per Dr. Ch's instructions, she has been cleansing the area with Hibiclens, then applying Bacitracin, and covering with dry gauze. She has been changing these dressings daily. She does not think the wound is getting any worse, but does not seem to be making a lot of progress towards healing. There is a lot of thick slough present. Dr. Ch had prescribed Santyl, but one tube was $100 so they did not get this. She has not had any sharp debridement. She has not had any wound cultures or been on any antibiotics. She is noticing a lot of serous drainage. No foul odor, expanding erythema, warmth, focal swelling, nausea, vomiting, fevers, or chills. The wound is painful, but not as painful as when it initially occurred. She is on warfarin for history of PFO and recurrent DVT. She does have fibromyalgia and DDD. She has history of recurrent pancreatitis though no recent flares. She has extensive surgical history including gastric bypass, hysterectomy, appendectomy, cholecystectomy. She does not smoke. She is not diabetic. It is noted that she unfortunately as a very high copay for debridement under her current insurance plan. Will keep this in mind throughout wound management. Subjective Subjective She has been caring for the wound as instructed and utilizing Santyl. She and her both feel it is looking better. She has not had any increased redness/warmth/drainage. She does report that she had some transient fevers over the weekend up to 101 but these have since resolved. She had no other associated symptoms. She reports that this is something that these spontaneous/transient fevers have been ongoing for her for many years and her PCP is aware and she has previously had workup for this. Objective Data Objective Data Vital Signs: Vital Signs Temp Pulse Resp BP 97.8 F 80 20 H 183/74 H 11/10/23 13:13 11/10/23 13:13 11/10/23 13:13 11/10/23 13:13 Weight: 178 lb 6.765 oz Body Mass Index (BMI) 36.0 Charges/Coding Visit Charges Office Visits / Consults: 53501 OV L3 Est 20min Physical Exam Const alert, oriented x3, no apparent distress, healthy appearing and well nourished General Appearance: cooperative and comfortable HEENT normocephalic, head/scalp atraumatic, hearing grossly normal bilaterally, external ears normal and external nose normal Eyes EOMs intact bilaterally General Eye: normal appearance of both eyes Neck General: normal visual inspection and trachea midline Resp normal respiratory effort, no retractions and no use of accessory muscles Effort and Inspection: able to speak in complete sentences; Negative for labored, stridor, actively coughing, retractions or audible wheezes Cardio regular rate and regular rhythm Extremity no clubbing, cyanosis or edema Skin Wounds: wounds noted Wound Narrative: R lateral upper arm wound still with some slough centrally but much improved from initial exam 2 weeks ago. The remainder of the wound base is pink and granular. The wound has improved in size. There is no significant erythema around the wound, prior superfiically burned areas has resolved. No significant warmth, foul odor, or swelling. Neuro oriented x3, CN's II-XII intact bilaterally, moves all extremities, no focal motor deficits and no sensory deficits noted Speech: speech normal Psych mental status grossly normal, cooperative, affect normal, speech normal and activity/motor behavior normal Attitude: calm and engaged Activity / Motor Behavior: appropriate eye contact Debridement Note Debridement Note No debridement was completed: No debridement was completed today Post-Debridement Measurements and Additional Note: Post-Debridement Measurements/Treatment - Nurse 1 - General Ulcer Assessment Start: 11/10/23 13:13 Freq: Status: Active Protocol: TWYLA Activity Type Activity Date Activity User E-sign Co-sign Detail Recorded Client Recorded Date Recorded By Document 11/10/23 13:13 DL Desktop 11/10/23 13:18 DL 11/10/23 13:13 WC - Today's Visit Information Type of service Follow-up 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 ) Arrival Mode Ambulatory Transfer Assistance None Patient Identification Verified (Name & Yes ) Patient Requires Transmission-Based No Precautions Height and Weight Body Mass Index (BMI) 36.0 BMI Classification Obese Vital Signs Temperature (97.8 F-99.1 F) 97.8 F Temperature Source Temporal Pulse Rate (60-100) 80 Pulse Location Monitor Respiratory Rate (12-18) 20 H Respiratory rate source Observation Blood Pressure (90/60-120/80) 183/74 H Blood Pressure Mean (mm Hg) 110 Source Monitor History Since Last Visit- (Skip if this is Patient's initial visit) Have you changed medications since your No last visit? Any new allergies or adverse reactions No Had a fall/change in ADL's that may No increase risk of falls Signs or symptoms of abuse and/or No neglect since last visit Have you been in the hospital since your No last visit? Has dressing in place as prescribed Yes Has compression in place as prescribed N/A Has offloadiing in place as prescribed N/A Experienced any changes in pain level or No management Pain Scale: 0-10 Numeric Is Patient Pain Free? Yes - Nurse 1 - General Ulcer Measurement Start: 11/10/23 13:13 Freq: Status: Active Protocol: Activity Type Activity Date Activity User E-sign Co-sign Detail Recorded Client Recorded Date Recorded By Document 11/10/23 13:13 DL Desktop 11/10/23 13:18 DL 11/10/23 13:13 Wound Center Nurse 1 #1 R Post Upper Arm -Current Size (cm) - Length 5.2 -Current Size (cm) - Width 2.2 -Current Size (cm) - Depth 0.2 -Total Square Cm 11.44 -Exudate Amt Medium -Exudate Type Serosanguineous -Wound Margin Distinct, Outline Attached -Granulation Amt Medium (34-66%) -Granulation Quality [place] -Necrosis Amt Medium (34-66%) -Necrotic Tissue Type Adherent Slough -Structure Exposed N/A -Texture (Farzaneh-wound Skin Appearance) Scarring -Moisture (Farzaneh-wound Skin Appearance) No Abnormality -Color (Farzaneh-wound Skin Appearance) Erythema -Temperature (Farzaneh-wound Skin No Abnormality Appearance) (Pt Warm) -Tenderness on Palpation (Farzaneh-wound No Skin Appearance) -Ulcer Cleansing Rinsed/ Irrigated with Saline -Foul Odor after Cleansing No -Anesthetic Used 5% Lidocaine Gel - Nurse 2 - General Ulcer CM Notes Start: 11/10/23 13:13 Freq: Status: Active Protocol: Activity Type Activity Date Activity User E-sign Co-sign Detail Recorded Client Recorded Date Recorded By Document 11/10/23 13:42 Desktop 11/10/23 13:48 11/10/23 13:42 Wound Center Nurse 2 -Time 13:43 -Correct Patient Yes -Correct Side, Site, Position Yes -Post Debridement (cm) - Length 5.3 -Post Debridement (cm) - Width 1.9 -Post Debridement (cm) - Depth 0.2 -Total Square (Post) (cm) 10.07 -Tunneling No -Undermining/Tunneling No -Circular Undermining No -Wound/Ulcer Outcome Not Healed -Bleeding Controlled with NA -Wound Comment(s) no debridement today Pain Scale: 0-10 Numeric Is Patient Pain Free? Yes - Nurse 3 - General Ulcer D/C NN Start: 11/10/23 13:13 Freq: Status: Active Protocol: Activity Type Activity Date Activity User E-sign Co-sign Detail Recorded Client Recorded Date Recorded By Document 11/10/23 13:51 Desktop 11/10/23 13:52 11/10/23 13:51 Wound Care Center Nurse 3 #1 R Post Upper Arm -Ulcer Cleansing Not Cleansed -Foul Odor after Cleansing No -Wound Comment(s) used a sample excel sap Pain Scale: 0-10 Numeric Is Patient Pain Free? Yes Teaching: Wound Center dressing wound -Person Taught Patient,Family -Teaching Method Discussion -Response to teaching Verbalize understanding - Visit Discharge Discharge Condition Stable Ambulatory Status Ambulatory Transportation Private Auto Clinical Summary of Care Provided Yes Assessment/Plan Assessment/Plan (1) Wound of right upper extremity: CODE(S): S41.101A - Unspecified open wound of right upper arm, initial encounter PLAN: Plan The wound is much improved in size and appearance. There is still some slough centrally, but at this time feel good progress is being made with chemical debridement alone. Will defer sharp debridement today. For wound care: (1) Wash the area with hibiclens, rinse well, and pat to dry. (2) Apply a nickel-thick layer of Santyl to the wound bed. (3) Cover with a lightly moistened gauze (4) Apply silicone-border foam dressing or dry gauze dressing over top. (5) Apply low compression tubigrip. (6) Change daily or more often as needed to keep clean and dry. Wound cultures obtained at last OV did not have any growth. She will return to the wound center in 1 week or sooner as needed.
[2023-11-17 12:58] VITALS: BP 190/84; PULSE 84; RESP 18; TEMP 36.2; BMI 36.0
--- NOTE | 2023-11-17 16:54 | PN.PCM_ITS ---
History of Present Illness Date of Service: 11/17/23 Chief Complaint: R upper arm wound History of Wound: Tana Martines is a very pleasant 68 y/o female who presents to the wound healing center today for evaluation and management of a R upper arm wound. She is referred by Dr. Ch. She is accompanied to her appointment today by her who does help with wound care. This wound has been present for 4 weeks now. Four weeks ago, she fell asleep on a heating pad that she used for back pain. Somehow, it ended up bunched at her arm and it burned the skin there. Initially, she reports she had a very large blister which eventually ruptured and left behind this wound. As per Dr. Ch's instructions, she has been cleansing the area with Hibiclens, then applying Bacitracin, and covering with dry gauze. She has been changing these dressings daily. She does not think the wound is getting any worse, but does not seem to be making a lot of progress towards healing. There is a lot of thick slough present. Dr. Ch had prescribed Santyl, but one tube was $100 so they did not get this. She has not had any sharp debridement. She has not had any wound cultures or been on any antibiotics. She is noticing a lot of serous drainage. No foul odor, expanding erythema, warmth, focal swelling, nausea, vomiting, fevers, or chills. The wound is painful, but not as painful as when it initially occurred. She is on warfarin for history of PFO and recurrent DVT. She does have fibromyalgia and DDD. She has history of recurrent pancreatitis though no recent flares. She has extensive surgical history including gastric bypass, hysterectomy, appendectomy, cholecystectomy. She does not smoke. She is not diabetic. It is noted that she unfortunately as a very high copay for debridement under her current insurance plan. Will keep this in mind throughout wound management. Subjective Subjective Patient has been doing well over the last week. She and her feel the wound continues to improve. She does still have pain at the wound intermittently. No spreading redness, increased drainage, or increased swelling. She has noticed that she is having possible some irritation from the adhesive dressings. She has not other complaints today. Objective Data Objective Data Vital Signs: Vital Signs Temp Pulse Resp BP O2 Del Method 97.1 F L 84 18 190/84 H Room Air 11/17/23 12:58 11/17/23 12:58 11/17/23 12:58 11/17/23 12:58 11/17/23 12:58 Oxygen Delivery Method Room Air Weight: 178 lb 6.765 oz Body Mass Index (BMI) 36.0 Physical Exam Const alert, oriented x3, no apparent distress, healthy appearing and well nourished General Appearance: cooperative and comfortable HEENT normocephalic, head/scalp atraumatic, hearing grossly normal bilaterally, external ears normal and external nose normal Eyes EOMs intact bilaterally General Eye: normal appearance of both eyes Neck General: normal visual inspection and trachea midline Resp normal respiratory effort, no retractions and no use of accessory muscles Effort and Inspection: able to speak in complete sentences; Negative for labored, stridor, actively coughing, retractions or audible wheezes Cardio regular rate and regular rhythm Extremity no clubbing, cyanosis or edema Skin Wounds: wounds noted Wound Narrative: R lateral upper arm wound still with some slough centrally. The remainder of the wound base is pink and granular. The wound has improved in size. There is no significant erythema around the wound, prior superficially burned areas have resolved. No significant warmth, foul odor, or swelling. Neuro oriented x3, CN's II-XII intact bilaterally, moves all extremities, no focal motor deficits and no sensory deficits noted Speech: speech normal Psych mental status grossly normal, cooperative, affect normal, speech normal and activity/motor behavior normal Attitude: calm and engaged Activity / Motor Behavior: appropriate eye contact Debridement Note Debridement Note No debridement was completed: No debridement was completed today Post-Debridement Measurements and Additional Note: Post-Debridement Measurements/Treatment - Nurse 1 - General Ulcer Assessment Start: 11/10/23 13:13 Freq: Status: Active Protocol: TWYLA Activity Type Activity Date Activity User E-sign Co-sign Detail Recorded Client Recorded Date Recorded By Document 11/10/23 13:13 DL Desktop 11/10/23 13:18 DL Document 11/17/23 12:58 [id number] 11/17/23 13:03 KW 11/10/23 11/17/23 13:13 12:58 - Today's Visit Information Type of service Follow-up Visit Follow-up Visit (Physician/CNC LATHE MACHINE OPERATOR (Physician/CNC LATHE MACHINE OPERATOR ) ) Arrival Mode Ambulatory Ambulatory Transfer Assistance None Accompanied by Patient Identification Verified (Name & Yes Yes ) Patient Requires Transmission-Based No Precautions Height and Weight Body Mass Index (BMI) 36.0 36.0 BMI Classification Obese Obese Vital Signs Temperature (97.8 F-99.1 F) 97.8 F 97.1 F L Temperature Source Temporal Temporal Pulse Rate (60-100) 80 84 Pulse Location Monitor Monitor Respiratory Rate (12-18) 20 H 18 Respiratory rate source Observation Observation Oxygen Delivery Method Room Air Blood Pressure (90/60-120/80) 183/74 H 190/84 H Blood Pressure Mean (mm Hg) 110 119 Source Monitor Monitor Position Semi-Fowlers Blood Pressure Location Left Arm History Since Last Visit- (Skip if this is Patient's initial visit) Have you changed medications since your No No last visit? Any new allergies or adverse reactions No No Had a fall/change in ADL's that may No No increase risk of falls Signs or symptoms of abuse and/or No No neglect since last visit Have you been in the hospital since your No No last visit? Has dressing in place as prescribed Yes Yes Has compression in place as prescribed N/A N/A Has offloadiing in place as prescribed N/A N/A Experienced any changes in pain level or No No management Left Footwear Regular Shoe Right Footwear Regular Shoe Pain Scale: 0-10 Numeric Is Patient Pain Free? Yes Yes WC - Nurse 1 - General Ulcer Measurement Start: 11/10/23 13:13 Freq: Status: Active Protocol: Activity Type Activity Date Activity User E-sign Co-sign Detail Recorded Client Recorded Date Recorded By Document 11/10/23 13:13 DL Desktop 11/10/23 13:18 DL Document 11/17/23 12:58 [id number] 11/17/23 13:03 KW 11/10/23 11/17/23 13:13 12:58 Wound Center Nurse 1 #1 R Post Upper Arm -Current Size (cm) - Length 5.2 4.8 -Current Size (cm) - Width 2.2 1.6 -Current Size (cm) - Depth 0.2 0.1 -Total Square Cm 11.44 7.68 -Exudate Amt Medium Small -Exudate Type Serosanguineous Serosanguineous -Wound Margin Distinct, Distinct, Outline Outline Attached Attached -Granulation Amt Medium (34-66%) Medium (34-66%) -Granulation Quality [place] -Necrosis Amt Medium (34-66%) Medium (34-66%) -Necrotic Tissue Type Adherent Slough Adherent Slough -Structure Exposed N/A -Texture (Farzaneh-wound Skin Appearance) Scarring Assessed -Moisture (Farzaneh-wound Skin Appearance) No Abnormality Assessed -Color (Farzaneh-wound Skin Appearance) Erythema Assessed -Temperature (Farzaneh-wound Skin No Abnormality No Abnormality Appearance) (Pt Warm) (Pt Warm) -Tenderness on Palpation (Farzaneh-wound No No Skin Appearance) -Ulcer Cleansing Rinsed/ Soap and Water Irrigated with Saline -Foul Odor after Cleansing No -Anesthetic Used 5% Lidocaine 5% Lidocaine Gel Gel WC - Nurse 2 - General Ulcer CM Notes Start: 11/10/23 13:13 Freq: Status: Active Protocol: Activity Type Activity Date Activity User E-sign Co-sign Detail Recorded Client Recorded Date Recorded By Document 11/10/23 13:42 [employer] 11/10/23 13:48 Document 11/17/23 13:16 [id number] 11/17/23 13:20 11/10/23 11/17/23 13:42 13:16 Wound Center Nurse 2 #1 R Post Upper Arm -Time 13:43 13:19 -Correct Patient Yes Yes -Correct Side, Site, Position Yes Yes -Correct Procedure No -Procedure Performed No -Post Debridement (cm) - Length 5.3 -Post Debridement (cm) - Width 1.9 -Post Debridement (cm) - Depth 0.2 -Total Square (Post) (cm) 10.07 -Tunneling No -Undermining/Tunneling No -Circular Undermining No -Wound/Ulcer Outcome Not Healed Not Healed -Ulcer Cleansing Not Cleansed -Foul Odor after Cleansing No -Bleeding Controlled with NA -Wound Comment(s) no debridement Measurements 4. today 9 x 1.8 x 0.2 Pain Scale: 0-10 Numeric Is Patient Pain Free? Yes Yes - Nurse 3 - General Ulcer D/C NN Start: 11/10/23 13:13 Freq: Status: Active Protocol: Activity Type Activity Date Activity User E-sign Co-sign Detail Recorded Client Recorded Date Recorded By Document 11/10/23 13:51 GM Desktop 11/10/23 13:52 GM Document 11/17/23 13:22 [id number] 11/17/23 13:24 GM 11/10/23 11/17/23 13:51 13:22 Wound Care Center Nurse 3 #1 R Post Upper Arm -Ulcer Cleansing Not Cleansed Rinsed/ Irrigated with Saline -Foul Odor after Cleansing No No -Other Dressing used excep sap brought from home over santyl shanice thick -Wound Comment(s) used a sample excel sap Pain Scale: 0-10 Numeric Is Patient Pain Free? Yes Yes Teaching: Wound Center dressing wound -Person Taught Patient,Family -Teaching Method Discussion -Response to teaching Verbalize understanding WC - Visit Discharge Discharge Condition Stable Stable Ambulatory Status Ambulatory Ambulatory Transportation Private Auto Private Auto Clinical Summary of Care Provided Yes Yes Assessment/Plan Assessment/Plan (1) Wound of right upper extremity: CODE(S): S41.101A - Unspecified open wound of right upper arm, initial encounter PLAN: Plan The wound is much improved in size and appearance. There is still some slough centrally, but at this time feel good progress is being made with chemical debridement alone. May need to consider sharp debridement again next week. For wound care: (1) Wash the area with hibiclens, rinse well, and pat to dry. (2) Apply a nickel-thick layer of Santyl to the wound bed. (3) Cover with a lightly moistened gauze (4) Due to possible irritation from adhesive, wrap with dry Kerlix around the arm, tape to the dressing. (5) Apply low compression tubigrip. (6) Change daily or more often as needed to keep clean and dry. No signs/symptoms concerning for infection today. Her BP was very elevated here today, this did not come to my attention until she left the clinic. I did call her via telephone. She was asymptomatic. She forgot to take her BP medications today. She is advised to ensure she is taking her BP medication and to start monitoring her BP daily at home and keeping a log. If her BP remains >140 systolic at home even when she takes her medication she is advised to contact her PCP as she may need adjustments to her medication regimen. She acknowledges understanding. She will return to the wound center in 1 week or sooner as needed.
--- NOTE | 2023-11-21 14:09 | WC ---
11/17/2023 RIGHT POST ARM
[2023-11-24 14:14] VITALS: BP 131/47; PULSE 74; RESP 18; TEMP 36.3; BMI 36.0
--- NOTE | 2023-11-24 16:50 | PCM.WC.PN ---
History of Present Illness Date of Service: 11/24/23 Chief Complaint: R upper arm wound History of Wound: Tana Martines is a very pleasant 68 y/o female who presents to the wound healing center today for evaluation and management of a R upper arm wound. She is referred by Dr. Ch. She is accompanied to her appointment today by her who does help with wound care. This wound has been present for 4 weeks now. Four weeks ago, she fell asleep on a heating pad that she used for back pain. Somehow, it ended up bunched at her arm and it burned the skin there. Initially, she reports she had a very large blister which eventually ruptured and left behind this wound. As per Dr. Ch's instructions, she has been cleansing the area with Hibiclens, then applying Bacitracin, and covering with dry gauze. She has been changing these dressings daily. She does not think the wound is getting any worse, but does not seem to be making a lot of progress towards healing. There is a lot of thick slough present. Dr. Ch had prescribed Santyl, but one tube was $100 so they did not get this. She has not had any sharp debridement. She has not had any wound cultures or been on any antibiotics. She is noticing a lot of serous drainage. No foul odor, expanding erythema, warmth, focal swelling, nausea, vomiting, fevers, or chills. The wound is painful, but not as painful as when it initially occurred. She is on warfarin for history of PFO and recurrent DVT. She does have fibromyalgia and DDD. She has history of recurrent pancreatitis though no recent flares. She has extensive surgical history including gastric bypass, hysterectomy, appendectomy, cholecystectomy. She does not smoke. She is not diabetic. It is noted that she unfortunately as a very high copay for debridement under her current insurance plan. Will keep this in mind throughout wound management. Subjective Subjective Patient returns to the wound center today accompanied by her as usual. She reports she has been doing well. They continue to do well with dressing changes. She does continue to notice itching and some irritation around the wound. Otherwise, no expanding erythema, foul odor, N/V, F/C. Objective Data Objective Data Vital Signs: Vital Signs Temp Pulse Resp BP O2 Del Method 97.3 F L 74 18 131/47 H Room Air 11/24/23 14:14 11/24/23 14:14 11/24/23 14:14 11/24/23 14:14 11/24/23 14:14 Oxygen Delivery Method Room Air Weight: 178 lb 6.765 oz Body Mass Index (BMI) 36.0 Charges/Coding Visit Charges Office Visits / Consults: 72921 OV L3 Est 20min Physical Exam Const alert, oriented x3, no apparent distress, healthy appearing and well nourished General Appearance: cooperative and comfortable HEENT normocephalic, head/scalp atraumatic, hearing grossly normal bilaterally, external ears normal and external nose normal Eyes EOMs intact bilaterally General Eye: normal appearance of both eyes Neck General: normal visual inspection and trachea midline Resp normal respiratory effort, no retractions and no use of accessory muscles Effort and Inspection: able to speak in complete sentences; Negative for labored, stridor, actively coughing, retractions or audible wheezes Cardio regular rate and regular rhythm Extremity no clubbing, cyanosis or edema Skin Wounds: wounds noted Wound Narrative: R lateral upper arm wound still with some slough centrally. The remainder of the wound base is pink and granular. The wound has improved in size. There is some noted periwound irritiation/dermatitis but no expanding erythema/warmth. Neuro oriented x3, CN's II-XII intact bilaterally, moves all extremities, no focal motor deficits and no sensory deficits noted Speech: speech normal Psych mental status grossly normal, cooperative, affect normal, speech normal and activity/motor behavior normal Attitude: calm and engaged Activity / Motor Behavior: appropriate eye contact Debridement Note Debridement Note No debridement was completed: No debridement was completed today Post-Debridement Measurements and Additional Note: Post-Debridement Measurements/Treatment WC - Nurse 1 - General Ulcer Assessment Start: 11/10/23 13:13 Freq: Status: Active Protocol: TWYLA Activity Type Activity Date Activity User E-sign Co-sign Detail Recorded Client Recorded Date Recorded By Document 11/10/23 13:13 DL Desktop 11/10/23 13:18 DL Document 11/17/23 12:58 [id number] 11/17/23 13:03 KW Document 11/24/23 14:14 KW wound center 11/24/23 14:33 KW 11/10/23 11/17/23 11/24/23 13:13 12:58 14:14 WC - Today's Visit Information Type of service Follow-up Visit Follow-up Visit Follow-up Visit (Physician/DENTAL RESIDENT (Physician/DENTAL RESIDENT (Physician/DENTAL RESIDENT ) ) ) Arrival Mode Ambulatory Ambulatory Ambulatory Transfer Assistance None Accompanied by Patient Identification Verified (Name & Yes Yes Yes ) Patient Requires Transmission-Based No Precautions Height and Weight Body Mass Index (BMI) 36.0 36.0 36.0 BMI Classification Obese Obese Obese Vital Signs Temperature (97.8 F-99.1 F) 97.8 F 97.1 F L 97.3 F L Temperature Source Temporal Temporal Temporal Pulse Rate (60-100) 80 84 74 Pulse Location Monitor Monitor Monitor Respiratory Rate (12-18) 20 H 18 18 Respiratory rate source Observation Observation Observation Oxygen Delivery Method Room Air Room Air Blood Pressure (90/60-120/80) 183/74 H 190/84 H 131/47 H Blood Pressure Mean (mm Hg) 110 119 75 Source Monitor Monitor Monitor Position Semi-Fowlers Semi-Fowlers Blood Pressure Location Left Arm Left Arm History Since Last Visit- (Skip if this is Patient's initial visit) Have you changed medications since your No No No last visit? Any new allergies or adverse reactions No No No Had a fall/change in ADL's that may No No No increase risk of falls Signs or symptoms of abuse and/or No No No neglect since last visit Have you been in the hospital since your No No No last visit? Has dressing in place as prescribed Yes Yes No Has compression in place as prescribed N/A N/A N/A Has offloadiing in place as prescribed N/A N/A N/A Experienced any changes in pain level or No No No management Left Footwear Regular Shoe Regular Shoe Right Footwear Regular Shoe Regular Shoe Pain Scale: 0-10 Numeric Is Patient Pain Free? Yes Yes Yes - Nurse 1 - General Ulcer Measurement Start: 11/10/23 13:13 Freq: Status: Active Protocol: Activity Type Activity Date Activity User E-sign Co-sign Detail Recorded Client Recorded Date Recorded By Document 11/10/23 13:13 DL Desktop 11/10/23 13:18 DL Document 11/17/23 12:58 [id number] [id number] 11/17/23 13:03 KW Document 11/24/23 14:50 KW [id number] 11/24/23 14:51 11/10/23 11/17/23 11/24/23 13:13 12:58 14:50 Wound Center Nurse 1 #1 R Post Upper Arm -Current Size (cm) - Length 5.2 4.8 3 -Current Size (cm) - Width 2.2 1.6 1.6 -Current Size (cm) - Depth 0.2 0.1 0.1 -Total Square Cm 11.44 7.68 4.8 -Exudate Amt Medium Small Small -Exudate Type Serosanguineous Serosanguineous Serosanguineous -Wound Margin Distinct, Distinct, Distinct, Outline Outline Outline Attached Attached Attached -Granulation Amt Medium (34-66%) Medium (34-66%) Small (1-33%) -Granulation Quality Kinnelon Kinnelon Red -Necrosis Amt Medium (34-66%) Medium (34-66%) Large (67-100%) -Necrotic Tissue Type Adherent Slough Adherent Slough Adherent Slough -Structure Exposed N/A -Texture (Farzaneh-wound Skin Appearance) Scarring Assessed Assessed -Moisture (Farzaneh-wound Skin Appearance) No Abnormality Assessed Assessed -Color (Farzaneh-wound Skin Appearance) Erythema Assessed Assessed -Temperature (Farzaneh-wound Skin No Abnormality No Abnormality No Abnormality Appearance) (Pt Warm) (Pt Warm) (Pt Warm) -Tenderness on Palpation (Farzaneh-wound No No No Skin Appearance) -Ulcer Cleansing Rinsed/ Soap and Water Rinsed/ Irrigated with Irrigated with Saline Saline -Foul Odor after Cleansing No No -Anesthetic Used 5% Lidocaine 5% Lidocaine 5% Lidocaine Gel Gel Gel WC - Nurse 2 - General Ulcer CM Notes Start: 11/10/23 13:13 Freq: Status: Active Protocol: Activity Type Activity Date Activity User E-sign Co-sign Detail Recorded Client Recorded Date Recorded By Document 11/10/23 13:42 Desktop 11/10/23 13:48 Document 11/17/23 13:16 [id number] 11/17/23 13:20 Document 11/24/23 15:06 wound center 11/24/23 15:10 11/10/23 11/17/23 11/24/23 13:42 13:16 15:06 Wound Center Nurse 2 #1 R Post Upper Arm -Time 13:43 13:19 15:10 -Correct Patient Yes Yes Yes -Correct Side, Site, Position Yes Yes Yes -Correct Procedure No -Procedure Performed No -Post Debridement (cm) - Length 5.3 -Post Debridement (cm) - Width 1.9 -Post Debridement (cm) - Depth 0.2 -Total Square (Post) (cm) 10.07 -Tunneling No -Undermining/Tunneling No -Circular Undermining No -Wound/Ulcer Outcome Not Healed Not Healed -Ulcer Cleansing Not Cleansed -Foul Odor after Cleansing No -Bleeding Controlled with NA -Wound Comment(s) no debridement Measurements 4. no debridement today 9 x 1.8 x 0.2 measurements 4.6x1.6x0.2 Pain Scale: 0-10 Numeric Is Patient Pain Free? Yes Yes Yes - Nurse 3 - General Ulcer D/C NN Start: 11/10/23 13:13 Freq: Status: Active Protocol: Activity Type Activity Date Activity User E-sign Co-sign Detail Recorded Client Recorded Date Recorded By Document 11/10/23 13:51 Desktop 11/10/23 13:52 Document 11/17/23 13:22 [id number] 11/17/23 13:24 Document 11/24/23 15:17 wound center 11/24/23 15:21 11/10/23 11/17/23 11/24/23 13:51 13:22 15:17 Wound Care Center Nurse 3 #1 R Post Upper Arm -Ulcer Cleansing Not Cleansed Rinsed/ Irrigated with Saline -Foul Odor after Cleansing No No -Other Dressing used excep sap MOISTENED GAUZE brought from home over santyl shanice thick -Primary Dressing Covered/Secured with Dry Gauze & Roll Gauze, Secured with Tape -Wound Comment(s) used a sample excel sap Pain Scale: 0-10 Numeric Is Patient Pain Free? Yes Yes Yes Teaching: Wound Center dressing wound -Person Taught Patient,Family -Teaching Method Discussion -Response to teaching Verbalize understanding WC - Visit Discharge Discharge Condition Stable Stable Stable Ambulatory Status Ambulatory Ambulatory Ambulatory Transportation Private Auto Private Auto Private Auto Medication Reconcilliation completed & No provided to patient/care provider Clinical Summary of Care Provided Yes Yes Yes Assessment/Plan Assessment/Plan (1) Wound of right upper extremity: CODE(S): S41.101A - Unspecified open wound of right upper arm, initial encounter PLAN: Plan The wound continues to improve. There is still some slough centrally, but at this time feel good progress continues to be made with chemical debridement alone. For wound care: (1) Wash the area with hibiclens, rinse well, and pat to dry. (2) Apply a nickel-thick layer of Santyl to the wound bed. (3) Cover with a lightly moistened gauze (4) Wrap with dry Kerlix around the arm, tape to the dressing. (5) Apply low compression tubigrip. (6) Change daily or more often as needed to keep clean and dry. With continued periwound irritation, I will prescribe lotrisone cream which can be applied to the periwound skin with dressing changes. I also advise changing the dressing more frequently if it appears to be soaking through. No signs/symptoms concerning for infection today. Her BP is much better this week. She will return to the wound center in 1 week or sooner as needed.
[2023-12-01 14:43] VITALS: BP 147/68; PULSE 74; RESP 18; TEMP 36.6; BMI 36.0
--- NOTE | 2023-12-01 17:03 | PCM.WC.PN ---
History of Present Illness Date of Service: 12/01/23 Chief Complaint: R upper arm wound History of Wound: Tana Martines is a very pleasant 68 y/o female who presents to the wound healing center today for evaluation and management of a R upper arm wound. She is referred by Dr. Ch. She is accompanied to her appointment today by her who does help with wound care. This wound has been present for 4 weeks now. Four weeks ago, she fell asleep on a heating pad that she used for back pain. Somehow, it ended up bunched at her arm and it burned the skin there. Initially, she reports she had a very large blister which eventually ruptured and left behind this wound. As per Dr. Ch's instructions, she has been cleansing the area with Hibiclens, then applying Bacitracin, and covering with dry gauze. She has been changing these dressings daily. She does not think the wound is getting any worse, but does not seem to be making a lot of progress towards healing. There is a lot of thick slough present. Dr. Ch had prescribed Santyl, but one tube was $100 so they did not get this. She has not had any sharp debridement. She has not had any wound cultures or been on any antibiotics. She is noticing a lot of serous drainage. No foul odor, expanding erythema, warmth, focal swelling, nausea, vomiting, fevers, or chills. The wound is painful, but not as painful as when it initially occurred. She is on warfarin for history of PFO and recurrent DVT. She does have fibromyalgia and DDD. She has history of recurrent pancreatitis though no recent flares. She has extensive surgical history including gastric bypass, hysterectomy, appendectomy, cholecystectomy. She does not smoke. She is not diabetic. It is noted that she unfortunately as a very high copay for debridement under her current insurance plan. Will keep this in mind throughout wound management. Subjective Subjective Patient returns to the wound center today accompanied by her as usual. She reports she has been doing well. They continue to do well with dressing changes. The itching/irritation around the wound has improved with use of lotrisone cream. Objective Data Objective Data Vital Signs: Vital Signs Temp Pulse Resp BP O2 Del Method 97.8 F 74 18 147/68 H Room Air 12/01/23 14:43 12/01/23 14:43 12/01/23 14:43 12/01/23 14:43 11/24/23 14:14 Oxygen Delivery Method Room Air Weight: 178 lb 6.765 oz Body Mass Index (BMI) 36.0 Charges/Coding Visit Charges Office Visits / Consults: 68558 OV L3 Est 20min Physical Exam Const alert, oriented x3, no apparent distress, healthy appearing and well nourished General Appearance: cooperative and comfortable HEENT normocephalic, head/scalp atraumatic, hearing grossly normal bilaterally, external ears normal and external nose normal Eyes EOMs intact bilaterally General Eye: normal appearance of both eyes Neck General: normal visual inspection and trachea midline Resp normal respiratory effort, no retractions and no use of accessory muscles Effort and Inspection: able to speak in complete sentences; Negative for labored, stridor, actively coughing, retractions or audible wheezes Cardio regular rate and regular rhythm Extremity no clubbing, cyanosis or edema Skin Wounds: wounds noted Wound Narrative: R lateral upper arm wound still with some slough centrally. The remainder of the wound base is pink and granular. It is an irregular shape but has visible improved in size. Neuro oriented x3, CN's II-XII intact bilaterally, moves all extremities, no focal motor deficits and no sensory deficits noted Speech: speech normal Psych mental status grossly normal, cooperative, affect normal, speech normal and activity/motor behavior normal Attitude: calm and engaged Activity / Motor Behavior: appropriate eye contact Debridement Note Debridement Note No debridement was completed: No debridement was completed today Post-Debridement Measurements and Additional Note: Post-Debridement Measurements/Treatment WC - Nurse 1 - General Ulcer Assessment Start: 11/10/23 13:13 Freq: Status: Active Protocol: [email or web address] Activity Type Activity Date Activity User E-sign Co-sign Detail Recorded Client Recorded Date Recorded By Document 11/10/23 13:13 DL Desktop 11/10/23 13:18 DL Document 11/17/23 12:58 KW [id number] 11/17/23 13:03 KW Document 11/24/23 14:14 KW wound center 11/24/23 14:33 KW Document 12/01/23 14:43 DL [id number] 12/01/23 14:48 DL 11/10/23 11/17/23 11/24/23 13:13 12:58 14:14 - Today's Visit Information Type of service Follow-up Visit Follow-up Visit Follow-up Visit (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 (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 (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 ) ) ) Arrival Mode Ambulatory Ambulatory Ambulatory Transfer Assistance None Accompanied by Patient Identification Verified (Name & Yes Yes Yes ) Patient Requires Transmission-Based No Precautions Height and Weight Body Mass Index (BMI) 36.0 36.0 36.0 BMI Classification Obese Obese Obese Vital Signs Temperature (97.8 F-99.1 F) 97.8 F 97.1 F L 97.3 F L Temperature Source Temporal Temporal Temporal Pulse Rate (60-100) 80 84 74 Pulse Location Monitor Monitor Monitor Respiratory Rate (12-18) 20 H 18 18 Respiratory rate source Observation Observation Observation Oxygen Delivery Method Room Air Room Air Blood Pressure (90/60-120/80) 183/74 H 190/84 H 131/47 H Blood Pressure Mean (mm Hg) 110 119 75 Source Monitor Monitor Monitor Position Semi-Fowlers Semi-Fowlers Blood Pressure Location Left Arm Left Arm History Since Last Visit- (Skip if this is Patient's initial visit) Have you changed medications since your No No No last visit? Any new allergies or adverse reactions No No No Had a fall/change in ADL's that may No No No increase risk of falls Signs or symptoms of abuse and/or No No No neglect since last visit Have you been in the hospital since your No No No last visit? Has dressing in place as prescribed Yes Yes No Has compression in place as prescribed N/A N/A N/A Has offloadiing in place as prescribed N/A N/A N/A Experienced any changes in pain level or No No No management Left Footwear Regular Shoe Regular Shoe Right Footwear Regular Shoe Regular Shoe Pain Scale: 0-10 Numeric Is Patient Pain Free? Yes Yes Yes 12/01/23 14:43 - Today's Visit Information Type of service Follow-up Visit (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 ) Arrival Mode Ambulatory Transfer Assistance None Accompanied by Patient Identification Verified (Name & Yes ) Patient Requires Transmission-Based No Precautions Height and Weight Body Mass Index (BMI) 36.0 BMI Classification Obese Vital Signs Temperature (97.8 F-99.1 F) 97.8 F Temperature Source Temporal Pulse Rate (60-100) 74 Pulse Location Monitor Respiratory Rate (12-18) 18 Respiratory rate source Observation Oxygen Delivery Method Blood Pressure (90/60-120/80) 147/68 H Blood Pressure Mean (mm Hg) 94 Source Monitor Position Blood Pressure Location History Since Last Visit- (Skip if this is Patient's initial visit) Have you changed medications since your No last visit? Any new allergies or adverse reactions No Had a fall/change in ADL's that may No increase risk of falls Signs or symptoms of abuse and/or No neglect since last visit Have you been in the hospital since your No last visit? Has dressing in place as prescribed Yes Has compression in place as prescribed N/A Has offloadiing in place as prescribed N/A Experienced any changes in pain level or Yes management Left Footwear Right Footwear Pain Scale: 0-10 Numeric Is Patient Pain Free? Yes WC - Nurse 1 - General Ulcer Measurement Start: 11/10/23 13:13 Freq: Status: Active Protocol: Activity Type Activity Date Activity User E-sign Co-sign Detail Recorded Client Recorded Date Recorded By Document 11/10/23 13:13 DL Desktop 11/10/23 13:18 DL Document 11/17/23 12:58 KW [id number] 11/17/23 13:03 KW Document 11/24/23 14:50 KW [id number] 11/24/23 14:51 KW Document 12/01/23 14:43 DL [id number] 12/01/23 14:48 DL 11/10/23 11/17/23 11/24/23 13:13 12:58 14:50 Wound Center Nurse 1 #1 R Post Upper Arm -Current Size (cm) - Length 5.2 4.8 3 -Current Size (cm) - Width 2.2 1.6 1.6 -Current Size (cm) - Depth 0.2 0.1 0.1 -Total Square Cm 11.44 7.68 4.8 -Exudate Amt Medium Small Small -Exudate Type Serosanguineous Serosanguineous Serosanguineous -Wound Margin Distinct, Distinct, Distinct, Outline Outline Outline Attached Attached Attached -Granulation Amt Medium (34-66%) Medium (34-66%) Small (1-33%) -Granulation Quality Home Home Red -Necrosis Amt Medium (34-66%) Medium (34-66%) Large (67-100%) -Necrotic Tissue Type Adherent Slough Adherent Slough Adherent Slough -Structure Exposed N/A -Texture (Farzaneh-wound Skin Appearance) Scarring Assessed Assessed -Moisture (Farzaneh-wound Skin Appearance) No Abnormality Assessed Assessed -Color (Farzaneh-wound Skin Appearance) Erythema Assessed Assessed -Temperature (Farzaneh-wound Skin No Abnormality No Abnormality No Abnormality Appearance) (Pt Warm) (Pt Warm) (Pt Warm) -Tenderness on Palpation (Farzaneh-wound No No No Skin Appearance) -Ulcer Cleansing Rinsed/ Soap and Water Rinsed/ Irrigated with Irrigated with Saline Saline -Foul Odor after Cleansing No No -Anesthetic Used 5% Lidocaine 5% Lidocaine 5% Lidocaine Gel Gel Gel 12/01/23 14:43 Wound Center Nurse 1 #1 R Post Upper Arm -Current Size (cm) - Length 4 -Current Size (cm) - Width 1.3 -Current Size (cm) - Depth 0.1 -Total Square Cm 5.2 -Exudate Amt Medium -Exudate Type Serosanguineous -Wound Margin Distinct, Outline Attached -Granulation Amt Medium (34-66%) -Granulation Quality Red -Necrosis Amt Medium (34-66%) -Necrotic Tissue Type Adherent Slough -Structure Exposed N/A -Texture (Farzaneh-wound Skin Appearance) Scarring -Moisture (Farzaneh-wound Skin Appearance) No Abnormality -Color (Farzaneh-wound Skin Appearance) No Abnormality -Temperature (Farzaneh-wound Skin No Abnormality Appearance) (Pt Warm) -Tenderness on Palpation (Farzaneh-wound No Skin Appearance) -Ulcer Cleansing Rinsed/ Irrigated with Saline -Foul Odor after Cleansing No -Anesthetic Used 5% Lidocaine Gel WC - Nurse 2 - General Ulcer CM Notes Start: 11/10/23 13:13 Freq: Status: Active Protocol: Activity Type Activity Date Activity User E-sign Co-sign Detail Recorded Client Recorded Date Recorded By Document 11/10/23 13:42 Desktop 11/10/23 13:48 Document 11/17/23 13:16 [id number] 11/17/23 13:20 Document 11/24/23 15:06 wound center 11/24/23 15:10 Document 12/01/23 15:12 [facility] 12/01/23 15:18 05/09/24 05/16/24 05/23/24 13:42 13:16 15:06 Wound Center Nurse 2 #1 R Post Upper Arm -Time 13:43 13:19 15:10 -Correct Patient Yes Yes Yes -Correct Side, Site, Position Yes Yes Yes -Correct Procedure No -Procedure Performed No -Post Debridement (cm) - Length 5.3 -Post Debridement (cm) - Width 1.9 -Post Debridement (cm) - Depth 0.2 -Total Square (Post) (cm) 10.07 -Tunneling No -Undermining/Tunneling No -Circular Undermining No -Wound/Ulcer Outcome Not Healed Not Healed -Ulcer Cleansing Not Cleansed -Foul Odor after Cleansing No -Bioengineered Tissue -Bleeding Controlled with NA -Wound Comment(s) no debridement Measurements 4. no debridement today 9 x 1.8 x 0.2 measurements 4.6x1.6x0.2 Pain Scale: 0-10 Numeric Is Patient Pain Free? Yes Yes Yes 12/01/23 15:12 Wound Center Nurse 2 #1 R Post Upper Arm -Time 15:12 -Correct Patient Yes -Correct Side, Site, Position Yes -Correct Procedure -Procedure Performed -Post Debridement (cm) - Length -Post Debridement (cm) - Width -Post Debridement (cm) - Depth -Total Square (Post) (cm) -Tunneling -Undermining/Tunneling -Circular Undermining -Wound/Ulcer Outcome Not Healed -Ulcer Cleansing Rinsed/ Irrigated with Saline -Foul Odor after Cleansing No -Bioengineered Tissue No -Bleeding Controlled with -Wound Comment(s) Pain Scale: 0-10 Numeric Is Patient Pain Free? Yes - Nurse 3 - General Ulcer D/C NN Start: 11/10/23 13:13 Freq: Status: Active Protocol: Activity Type Activity Date Activity User E-sign Co-sign Detail Recorded Client Recorded Date Recorded By Document 11/10/23 13:51 Desktop 11/10/23 13:52 Document 11/17/23 13:22 [id number] 11/17/23 13:24 Document 11/24/23 15:17 KW wound center 11/24/23 15:21 KW Document 12/01/23 15:25 KW wound center 12/01/23 15:25 KW 11/10/23 11/17/23 11/24/23 13:51 13:22 15:17 Wound Care Center Nurse 3 #1 R Post Upper Arm -Ulcer Cleansing Not Cleansed Rinsed/ Irrigated with Saline -Foul Odor after Cleansing No No -Other Dressing used excep sap MOISTENED GAUZE brought from home over santyl shanice thick -Primary Dressing Covered/Secured with Dry Gauze & Roll Gauze, Secured with Tape -Wound Comment(s) used a sample excel sap Pain Scale: 0-10 Numeric Is Patient Pain Free? Yes Yes Yes Teaching: Wound Center dressing wound -Person Taught Patient,Family -Teaching Method Discussion -Response to teaching Verbalize understanding WC - Visit Discharge Discharge Condition Stable Stable Stable Ambulatory Status Ambulatory Ambulatory Ambulatory Transportation Private Auto Private Auto Private Auto Accompanied by Medication Reconcilliation completed & No provided to patient/care provider Clinical Summary of Care Provided Yes Yes Yes 12/01/23 15:25 Wound Care Center Nurse 3 #1 R Post Upper Arm -Ulcer Cleansing -Foul Odor after Cleansing -Other Dressing HYDROGEL, APPLY SANTYL AT HOME -Primary Dressing Covered/Secured with Dry Gauze & Roll Gauze, Secured with Tape -Wound Comment(s) Pain Scale: 0-10 Numeric Is Patient Pain Free? Yes Teaching: Wound Center dressing wound -Person Taught -Teaching Method -Response to teaching WC - Visit Discharge Discharge Condition Stable Ambulatory Status Ambulatory Transportation Private Auto Accompanied by Medication Reconcilliation completed & No provided to patient/care provider Clinical Summary of Care Provided Yes Assessment/Plan Assessment/Plan (1) Wound of right upper extremity: CODE(S): S41.101A - Unspecified open wound of right upper arm, initial encounter PLAN: Plan The wound continues to improve. There is still some slough centrally, but at this time feel good progress continues to be made with chemical debridement alone. For wound care: (1) Wash the area with hibiclens, rinse well, and pat to dry. (2) Apply a nickel-thick layer of Santyl to the wound bed. (3) Cover with a lightly moistened gauze (4) Wrap with dry Kerlix around the arm, tape to the dressing. (5) Apply low compression tubigrip. (6) Change daily or more often as needed to keep clean and dry. Continue to apply lotrisone cream daily as needed to manage itching/irritation. I also advise changing the dressing more frequently if it appears to be soaking through. No signs/symptoms concerning for infection today. She will return to the wound center in 2 weeks or sooner as needed.
== END 2023-12-02 23:59 | disposition home or self-care (01) ==
LOC: WC 14:30
PROVIDERS: PCP Internal Medicine; Referring Provider Internal Medicine; Visit Provider Physician Assistant
DX: S41.101A Unspecified open wound of right upper arm, initial encounter (principal); K86.1 Other chronic pancreatitis; T22.23 Burn of second degree of upper arm; X16.XXXS Contact with hot heating appliances, radiators and pipes, sequela; M79.7 Fibromyalgia; Z79.01 Long term (current) use of anticoagulants; Z79.899 Other long term (current) drug therapy
CPT/HCPCS: 99213; G0463

== ENCOUNTER 2023-12-20 12:59 | Outpatient (CLI) | payer MEDICARE, SELFPAY ==
[2023-12-20] MEDS: 0.9 % NaCl (Sterile) Posiflush 10 mL IV (13:16)
== END 2023-12-20 23:59 | disposition home or self-care (01) ==
LOC: MEDOUTP 12:59
PROVIDERS: PCP Internal Medicine; Referring Provider Internal Medicine; Visit Provider Internal Medicine
DX: Z95.828 Presence of other vascular implants and grafts (principal)
CPT/HCPCS: 96523

== ENCOUNTER 2023-12-29 13:30 | Outpatient (RCR) | payer MEDICARE, SELFPAY ==
[2023-12-03 01:15] VITALS: BP 184/79; PULSE 73; RESP 20; TEMP 36.1; BMI 36.0
[2023-12-15 14:34] VITALS: BP 133/64; PULSE 75; RESP 18; TEMP 36.3; BMI 36.0
--- NOTE | 2023-12-16 16:38 | PCM.WC.PN ---
History of Present Illness Date of Service: 12/15/23 Chief Complaint: R upper arm wound History of Wound: Tana Martines is a very pleasant 68 y/o female who presents to the wound healing center today for evaluation and management of a R upper arm wound. She is referred by Dr. Ch. She is accompanied to her appointment today by her who does help with wound care. This wound has been present for 4 weeks now. Four weeks ago, she fell asleep on a heating pad that she used for back pain. Somehow, it ended up bunched at her arm and it burned the skin there. Initially, she reports she had a very large blister which eventually ruptured and left behind this wound. As per Dr. Ch's instructions, she has been cleansing the area with Hibiclens, then applying Bacitracin, and covering with dry gauze. She has been changing these dressings daily. She does not think the wound is getting any worse, but does not seem to be making a lot of progress towards healing. There is a lot of thick slough present. Dr. Ch had prescribed Santyl, but one tube was $100 so they did not get this. She has not had any sharp debridement. She has not had any wound cultures or been on any antibiotics. She is noticing a lot of serous drainage. No foul odor, expanding erythema, warmth, focal swelling, nausea, vomiting, fevers, or chills. The wound is painful, but not as painful as when it initially occurred. She is on warfarin for history of PFO and recurrent DVT. She does have fibromyalgia and DDD. She has history of recurrent pancreatitis though no recent flares. She has extensive surgical history including gastric bypass, hysterectomy, appendectomy, cholecystectomy. She does not smoke. She is not diabetic. It is noted that she unfortunately as a very high copay for debridement under her current insurance plan. Will keep this in mind throughout wound management. Subjective Subjective Patient returns to the wound center today accompanied by her as usual. She reports she has been doing well. No new redness, swelling, drainage, or foul odor. No issues with dressing changes. She is on her last refill of the Santyl but has plenty for now. Lotrisone cream continues to help with the itching/skin irritation. Objective Data Objective Data Vital Signs: Vital Signs Temp Pulse Resp BP O2 Del Method 97.3 F L 75 18 133/64 H Room Air 12/15/23 14:34 12/15/23 14:34 12/15/23 14:34 12/15/23 14:34 12/15/23 14:34 Oxygen Delivery Method Room Air Weight: 178 lb 6.765 oz Body Mass Index (BMI) 36.0 Charges/Coding Visit Charges Office Visits / Consults: 83035 OV L3 Est 20min Physical Exam Const alert, oriented x3, no apparent distress, healthy appearing and well nourished General Appearance: cooperative and comfortable HEENT normocephalic, head/scalp atraumatic, hearing grossly normal bilaterally, external ears normal and external nose normal Eyes EOMs intact bilaterally General Eye: normal appearance of both eyes Neck General: normal visual inspection and trachea midline Resp normal respiratory effort, no retractions and no use of accessory muscles Effort and Inspection: able to speak in complete sentences; Negative for labored, stridor, actively coughing, retractions or audible wheezes Cardio regular rate and regular rhythm Extremity no clubbing, cyanosis or edema Skin Wounds: wounds noted Wound Narrative: R lateral upper arm wound still with some slough centrally. The remainder of the wound base is pink and granular. There has been significant reduction in wound size since the last visit. No signs of infection. Neuro oriented x3, CN's II-XII intact bilaterally, moves all extremities, no focal motor deficits and no sensory deficits noted Speech: speech normal Psych mental status grossly normal, cooperative, affect normal, speech normal and activity/motor behavior normal Attitude: calm and engaged Activity / Motor Behavior: appropriate eye contact Debridement Note Debridement Note No debridement was completed: No debridement was completed today Post-Debridement Measurements and Additional Note: Post-Debridement Measurements/Treatment - Nurse 1 - General Ulcer Assessment Start: 12/15/23 14:33 Freq: Status: Active Protocol: TWYLA Activity Type Activity Date Activity User E-sign Co-sign Detail Recorded Client Recorded Date Recorded By Document 12/15/23 14:34 KW g 12/15/23 14:38 KW 12/15/23 14:34 - Today's Visit Information Type of service Follow-up Visit (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 ) Arrival Mode Ambulatory Accompanied by Patient Identification Verified (Name & Yes ) Height and Weight Body Mass Index (BMI) 36.0 BMI Classification Obese Vital Signs Temperature (97.8 F-99.1 F) 97.3 F L Temperature Source Temporal Pulse Rate (60-100) 75 Pulse Location Monitor Respiratory Rate (12-18) 18 Respiratory rate source Observation Oxygen Delivery Method Room Air Blood Pressure (90/60-120/80) 133/64 H Blood Pressure Mean (mm Hg) 87 Source Monitor Position Semi-Fowlers Blood Pressure Location Left Arm History Since Last Visit- (Skip if this is Patient's initial visit) Have you changed medications since your No last visit? Any new allergies or adverse reactions No Had a fall/change in ADL's that may No increase risk of falls Signs or symptoms of abuse and/or No neglect since last visit Have you been in the hospital since your No last visit? Has dressing in place as prescribed Yes Has compression in place as prescribed N/A Has offloadiing in place as prescribed N/A Experienced any changes in pain level or No management Pain Scale: 0-10 Numeric Is Patient Pain Free? Yes WC - Nurse 1 - General Ulcer Measurement Start: 12/15/23 14:33 Freq: Status: Active Protocol: Activity Type Activity Date Activity User E-sign Co-sign Detail Recorded Client Recorded Date Recorded By Document 12/15/23 14:34 KW g 12/15/23 14:38 KW 12/15/23 14:34 Wound Center Nurse 1 #1 R Post Upper Arm -Current Size (cm) - Length 4 -Current Size (cm) - Width 2 -Current Size (cm) - Depth 0.2 -Total Square Cm 8 -Exudate Amt Small -Exudate Type Serosanguineous -Wound Margin Distinct, Outline Attached -Granulation Amt Small (1-33%) -Granulation Quality [place] -Necrosis Amt Large (67-100%) -Necrotic Tissue Type Adherent Slough -Texture (Farzaneh-wound Skin Appearance) Assessed -Moisture (Farzaneh-wound Skin Appearance) Assessed -Color (Farzaneh-wound Skin Appearance) Assessed -Temperature (Farzaneh-wound Skin No Abnormality Appearance) (Pt Warm) -Tenderness on Palpation (Farzaneh-wound No Skin Appearance) -Ulcer Cleansing Rinsed/ Irrigated with Saline -Foul Odor after Cleansing No -Anesthetic Used 5% Lidocaine Gel WC - Nurse 2 - General Ulcer CM Notes Start: 12/15/23 14:33 Freq: Status: Active Protocol: Activity Type Activity Date Activity User E-sign Co-sign Detail Recorded Client Recorded Date Recorded By Document 12/15/23 14:57 GM 12/15/23 14:58 GM 12/15/23 14:57 Wound Center Nurse 2 -Time 14:57 -Correct Patient Yes -Correct Side, Site, Position Yes -Wound/Ulcer Outcome Not Healed -Wound Comment(s) not debrided 2. 3 x 1.0 x 0.1 cm Pain Scale: 0-10 Numeric Is Patient Pain Free? Yes - Nurse 3 - General Ulcer D/C NN Start: 12/15/23 14:33 Freq: Status: Active Protocol: Activity Type Activity Date Activity User E-sign Co-sign Detail Recorded Client Recorded Date Recorded By Document 12/15/23 15:12 KW g 12/15/23 15:13 KW 12/15/23 15:12 Wound Care Center Nurse 3 #1 R Post Upper Arm -Ulcer Cleansing Soap and Water -Other Dressing santyl -Primary Dressing Covered/Secured with Dry Gauze, Secured with Tape Pain Scale: 0-10 Numeric Is Patient Pain Free? Yes - Visit Discharge Discharge Condition Stable Ambulatory Status Ambulatory Transportation Private Auto Accompanied by Medication Reconcilliation completed & No provided to patient/care provider Clinical Summary of Care Provided Yes Assessment/Plan Assessment/Plan (1) Wound of right upper extremity: CODE(S): S41.101A - Unspecified open wound of right upper arm, initial encounter PLAN: Plan The wound continues to improve. There is still some slough centrally, but good progress continues to be made with chemical debridement alone. For wound care: (1) Wash the area with hibiclens, rinse well, and pat to dry. (2) Apply a nickel-thick layer of Santyl to the wound bed. (3) Cover with a lightly moistened gauze (4) Wrap with dry Kerlix around the arm, tape to the dressing. (5) Apply low compression tubigrip. (6) Change daily or more often as needed to keep clean and dry. Continue to apply lotrisone cream daily as needed to manage itching/irritation. I also advise changing the dressing more frequently if it appears to be soaking through. No signs/symptoms concerning for infection today. She will return to the wound center in 2 weeks or sooner as needed.
[2023-12-29 13:37] VITALS: BP 146/63; PULSE 85; RESP 18; TEMP 36.1; BMI 36.0
--- NOTE | 2023-12-29 16:14 | PN.PCM_ITS ---
History of Present Illness Date of Service: 12/29/23 Chief Complaint: R upper arm wound History of Wound: Tana Martines is a very pleasant 68 y/o female who presents to the wound healing center today for evaluation and management of a R upper arm wound. She is referred by Dr. Ch. She is accompanied to her appointment today by her who does help with wound care. This wound has been present for 4 weeks now. Four weeks ago, she fell asleep on a heating pad that she used for back pain. Somehow, it ended up bunched at her arm and it burned the skin there. Initially, she reports she had a very large blister which eventually ruptured and left behind this wound. As per Dr. Ch's instructions, she has been cleansing the area with Hibiclens, then applying Bacitracin, and covering with dry gauze. She has been changing these dressings daily. She does not think the wound is getting any worse, but does not seem to be making a lot of progress towards healing. There is a lot of thick slough present. Dr. Ch had prescribed Santyl, but one tube was $100 so they did not get this. She has not had any sharp debridement. She has not had any wound cultures or been on any antibiotics. She is noticing a lot of serous drainage. No foul odor, expanding erythema, warmth, focal swelling, nausea, vomiting, fevers, or chills. The wound is painful, but not as painful as when it initially occurred. She is on warfarin for history of PFO and recurrent DVT. She does have fibromyalgia and DDD. She has history of recurrent pancreatitis though no recent flares. She has extensive surgical history including gastric bypass, hysterectomy, appendectomy, cholecystectomy. She does not smoke. She is not diabetic. It is noted that she unfortunately as a very high copay for debridement under her current insurance plan. Will keep this in mind throughout wound management. Subjective Subjective Patient continues to manage dressing changes without issue at home. She does not have any new concerns today. She denies any symptoms of infection. Objective Data Objective Data Vital Signs: Vital Signs Temp Pulse Resp BP O2 Del Method 97.0 F L 85 18 146/63 H Room Air 12/29/23 13:37 12/29/23 13:37 12/29/23 13:37 12/29/23 13:37 12/29/23 13:37 Oxygen Delivery Method Room Air Weight: 178 lb 6.765 oz Body Mass Index (BMI) 36.0 Charges/Coding Procedures Integumentary 111xxx-113xx: [id number] Fanny subq tissue 20 sq cm/< Physical Exam Const alert, oriented x3, no apparent distress, healthy appearing and well nourished General Appearance: cooperative and comfortable HEENT normocephalic, head/scalp atraumatic, hearing grossly normal bilaterally, external ears normal and external nose normal Eyes EOMs intact bilaterally General Eye: normal appearance of both eyes Neck General: normal visual inspection and trachea midline Resp normal respiratory effort, no retractions and no use of accessory muscles Effort and Inspection: able to speak in complete sentences; Negative for labored, stridor, actively coughing, retractions or audible wheezes Cardio regular rate and regular rhythm Extremity no clubbing, cyanosis or edema Skin Wounds: wounds noted Wound Narrative: R lateral upper arm wound with significant adherent slough covering the wound bed. There has been significant reduction in wound size since the last visit. No signs of infection. Neuro oriented x3, CN's II-XII intact bilaterally, moves all extremities, no focal motor deficits and no sensory deficits noted Speech: speech normal Psych mental status grossly normal, cooperative, affect normal, speech normal and activity/motor behavior normal Attitude: calm and engaged Activity / Motor Behavior: appropriate eye contact Debridement Note Debridement Note Wound debrided: R upper arm Laterality: Right Type of Debridement: Excisional debridement Anesthesia Used: 5% Lidocaine Gel Depth: Down to and including healthy tissue and in the subcutaneous layer Percentage of wound debrided: 100 Instrument Used: 5mm curette, #15 blade and Forceps Severity: Fat Layer Exposed Amount of bleeding with debridement: Moderate Bleeding Controlled with: Compression and gauze Patient tolerated procedure: Patient tolerated procedure well Post-Debridement Measurements and Additional Note: Post-Debridement Measurements/Treatment WC - Nurse 1 - General Ulcer Assessment Start: 12/15/23 14:33 Freq: Status: Active Protocol: TWYLA Activity Type Activity Date Activity User E-sign Co-sign Detail Recorded Client Recorded Date Recorded By Document 12/15/23 14:34 KW g 12/15/23 14:38 KW Document 12/29/23 13:37 KW l 12/29/23 13:42 KW 12/15/23 12/29/23 14:34 13:37 WC - Today's Visit Information Type of service Follow-up Visit Follow-up Visit (Physician/HUMAN SERVICES CARE SPECIALIST (Physician/HUMAN SERVICES CARE SPECIALIST ) ) Arrival Mode Ambulatory Ambulatory Accompanied by Patient Identification Verified (Name & Yes ) Height and Weight Body Mass Index (BMI) 36.0 36.0 BMI Classification Obese Obese Vital Signs Temperature (97.8 F-99.1 F) 97.3 F L 97.0 F L Temperature Source Temporal Temporal Pulse Rate (60-100) 75 85 Pulse Location Monitor Monitor Respiratory Rate (12-18) 18 18 Respiratory rate source Observation Observation Oxygen Delivery Method Room Air Room Air Blood Pressure (90/60-120/80) 133/64 H 146/63 H Blood Pressure Mean (mm Hg) 87 90 Source Monitor Monitor Position Semi-Fowlers Sitting Blood Pressure Location Left Arm Left Arm History Since Last Visit- (Skip if this is Patient's initial visit) Have you changed medications since your No No last visit? Any new allergies or adverse reactions No No Had a fall/change in ADL's that may No No increase risk of falls Signs or symptoms of abuse and/or No No neglect since last visit Have you been in the hospital since your No No last visit? Has dressing in place as prescribed Yes Yes Has compression in place as prescribed N/A N/A Has offloadiing in place as prescribed N/A N/A Experienced any changes in pain level or No No management Left Footwear Regular Shoe Right Footwear Regular Shoe Pain Scale: 0-10 Numeric Is Patient Pain Free? Yes Yes WC - Nurse 1 - General Ulcer Measurement Start: 12/15/23 14:33 Freq: Status: Active Protocol: Activity Type Activity Date Activity User E-sign Co-sign Detail Recorded Client Recorded Date Recorded By Document 12/15/23 14:34 KW g 12/15/23 14:38 KW Document 12/29/23 13:37 KW l 12/29/23 13:42 KW 12/15/23 12/29/23 14:34 13:37 Wound Center Nurse 1 #1 R Post Upper Arm -Current Size (cm) - Length 4 2 -Current Size (cm) - Width 2 0.6 -Current Size (cm) - Depth 0.2 0.3 -Total Square Cm 8 1.2 -Date of Last Picture (Recall this 12/29/23 field) -Exudate Amt Small -Exudate Type Serosanguineous -Wound Margin Distinct, Outline Attached -Granulation Amt Small (1-33%) Small (1-33%) -Granulation Quality Mooar Mooar -Necrosis Amt Large (67-100%) Large (67-100%) -Necrotic Tissue Type Adherent Slough Adherent Slough -Texture (Farzaneh-wound Skin Appearance) Assessed Scarring -Moisture (Farzaneh-wound Skin Appearance) Assessed Assessed -Color (Farzaneh-wound Skin Appearance) Assessed Assessed, Erythema -Temperature (Farzaneh-wound Skin No Abnormality No Abnormality Appearance) (Pt Warm) (Pt Warm) -Tenderness on Palpation (Farzaneh-wound No Skin Appearance) -Ulcer Cleansing Rinsed/ Rinsed/ Irrigated with Irrigated with Saline Saline -Foul Odor after Cleansing No No -Anesthetic Used 5% Lidocaine 5% Lidocaine Gel Gel WC - Nurse 2 - General Ulcer CM Notes Start: 12/15/23 14:33 Freq: Status: Active Protocol: Activity Type Activity Date Activity User E-sign Co-sign Detail Recorded Client Recorded Date Recorded By Document 12/15/23 14:57 GM 12/15/23 14:58 GM Document 12/29/23 14:19 [facility] 12/29/23 14:31 12/15/23 12/29/23 14:57 14:19 Wound Center Nurse 2 #1 R Post Upper Arm -Time 14:57 14:20 -Correct Patient Yes Yes -Correct Side, Site, Position Yes Yes -Correct Procedure Yes -Procedure Performed Yes -Type of Procedure Debridement -Clinical Debridement Subcutaneous -Tissue Removed Subcutaneous -Post Debridement (cm) - Length 2.0 -Post Debridement (cm) - Width 0.7 -Post Debridement (cm) - Depth 0.1 -Total Square (Post) (cm) 1.40 -Area of Debridement (cm) - Length 2.0 -Area of Debridement (cm) - Width 0.7 -Total Square (Area) (cm) 1.40 -Tunneling No -Undermining/Tunneling No -Circular Undermining No -Wound/Ulcer Outcome Not Healed Not Healed -Ulcer Cleansing Rinsed/ Irrigated with Saline -Foul Odor after Cleansing No -Bioengineered Tissue No -Bleeding Controlled with Pressure -Treatment Response Procedure Tolerated Well -Debridement - Subq, 1st 20sq cm Yes -Wound Comment(s) not debrided 2. 3 x 1.0 x 0.1 cm Pain Scale: 0-10 Numeric Is Patient Pain Free? Yes Yes - Nurse 3 - General Ulcer D/C NN Start: 12/15/23 14:33 Freq: Status: Active Protocol: Activity Type Activity Date Activity User E-sign Co-sign Detail Recorded Client Recorded Date Recorded By Document 12/15/23 15:12 KW g 12/15/23 15:13 KW Document 12/29/23 14:38 [facility] [email or web address] 12/29/23 14:38 [facility] 12/15/23 12/29/23 15:12 14:38 Wound Care Center Nurse 3 #1 R Post Upper Arm -Ulcer Cleansing Soap and Water Rinsed/ Irrigated with Saline -Foul Odor after Cleansing No -Other Dressing santyl SANTYL OINT; DRSG PER KW LINE ASSEMBLER -Primary Dressing Covered/Secured with Dry Gauze, Dry Gauze, Secured with Secured with Tape Tape Treatment Response Procedure Tolerated Well Pain Scale: 0-10 Numeric Is Patient Pain Free? Yes Yes - Visit Discharge Discharge Condition Stable Stable Ambulatory Status Ambulatory Ambulatory Transportation Private Auto Private Auto Accompanied by Medication Reconcilliation completed & No provided to patient/care provider Clinical Summary of Care Provided Yes Assessment/Plan Assessment/Plan (1) Wound of right upper extremity: CODE(S): S41.101A - Unspecified open wound of right upper arm, initial encounter PLAN: Plan Sharp debridement was completed today and she tolerated this well. For wound care: (1) Wash the area with hibiclens, rinse well, and pat to dry. (2) Apply a nickel-thick layer of Santyl to the wound bed. (3) Cover with a lightly moistened gauze (4) Wrap with dry Kerlix around the arm, tape to the dressing. (5) Apply low compression tubigrip. (6) Change daily or more often as needed to keep clean and dry. Continue to apply lotrisone cream daily as needed to manage itching/irritation. I also advise changing the dressing more frequently if it appears to be soaking through. No signs/symptoms concerning for infection today. Next week is 04 of January and the following week she will be out of town. She will return to see me in 3 weeks on 01/18. She will call or return sooner if needed.
--- NOTE | 2024-01-04 09:47 | WC ---
PHOTO RIGHT POSTERIOR ARM 12/29/2023
--- NOTE | 2024-01-12 08:38 | WC ---
PHOTO 12/29/2023 RIGHT POSTERIOR ARM
== END 2024-01-01 23:59 | disposition home or self-care (01) ==
LOC: WC 13:30
PROVIDERS: PCP Internal Medicine; Referring Provider Internal Medicine; Visit Provider Physician Assistant
DX: S41.101A Unspecified open wound of right upper arm, initial encounter (principal); K86.1 Other chronic pancreatitis; M79.7 Fibromyalgia; T22.23 Burn of second degree of upper arm; X16.XXXS Contact with hot heating appliances, radiators and pipes, sequela; Z79.01 Long term (current) use of anticoagulants; Z86.718 Personal history of other venous thrombosis and embolism
CPT/HCPCS: 11042; 99213; G0463

== ENCOUNTER 2024-01-19 08:53 | Outpatient (RCR) | payer MEDICARE, SELFPAY ==
[2024-01-02 00:38] VITALS: BP 184/79; PULSE 73; RESP 20; TEMP 36.1; BMI 36.0
[2024-01-19 14:23] VITALS: BP 154/89; PULSE 67; RESP 14; TEMP 36.8; BMI 36.0
--- NOTE | 2024-01-19 18:22 | PN.PCM_ITS ---
History of Present Illness Date of Service: 01/19/24 Chief Complaint: R upper arm wound History of Wound: Tana Martines is a very pleasant 68 y/o female who presents to the wound healing center today for evaluation and management of a R upper arm wound. She is referred by Dr. Ch. She is accompanied to her appointment today by her who does help with wound care. This wound has been present for 4 weeks now. Four weeks ago, she fell asleep on a heating pad that she used for back pain. Somehow, it ended up bunched at her arm and it burned the skin there. Initially, she reports she had a very large blister which eventually ruptured and left behind this wound. As per Dr. Ch's instructions, she has been cleansing the area with Hibiclens, then applying Bacitracin, and covering with dry gauze. She has been changing these dressings daily. She does not think the wound is getting any worse, but does not seem to be making a lot of progress towards healing. There is a lot of thick slough present. Dr. Ch had prescribed Santyl, but one tube was $100 so they did not get this. She has not had any sharp debridement. She has not had any wound cultures or been on any antibiotics. She is noticing a lot of serous drainage. No foul odor, expanding erythema, warmth, focal swelling, nausea, vomiting, fevers, or chills. The wound is painful, but not as painful as when it initially occurred. She is on warfarin for history of PFO and recurrent DVT. She does have fibromyalgia and DDD. She has history of recurrent pancreatitis though no recent flares. She has extensive surgical history including gastric bypass, hysterectomy, appendectomy, cholecystectomy. She does not smoke. She is not diabetic. It is noted that she unfortunately as a very high copay for debridement under her current insurance plan. Will keep this in mind throughout wound management. Subjective Subjective Patient continues to manage dressing changes without issue at home. Her wound is very nearly healed. She does not have any new concerns today. She denies any symptoms of infection. Objective Data Objective Data Vital Signs: Vital Signs Temp Pulse Resp BP 98.2 F 67 14 154/89 H 01/19/24 14:23 01/19/24 14:23 01/19/24 14:23 01/19/24 14:23 Weight: 178 lb 6.765 oz Body Mass Index (BMI) 36.0 Charges/Coding Visit Charges Office Visits / Consults: 53132 OV L3 Est 20min Physical Exam Const alert, oriented x3, no apparent distress, healthy appearing and well nourished General Appearance: cooperative and comfortable HEENT normocephalic, head/scalp atraumatic, hearing grossly normal bilaterally, external ears normal and external nose normal Eyes EOMs intact bilaterally General Eye: normal appearance of both eyes Neck General: normal visual inspection and trachea midline Resp normal respiratory effort, no retractions and no use of accessory muscles Effort and Inspection: able to speak in complete sentences; Negative for labored, stridor, actively coughing, retractions or audible wheezes Cardio regular rate and regular rhythm Extremity no clubbing, cyanosis or edema Skin Wounds: wounds noted Wound Narrative: R lateral upper arm wound with small amount of slough covering the wound bed. There has been significant reduction in wound size since the last visit. No signs of infection. Neuro oriented x3, CN's II-XII intact bilaterally, moves all extremities, no focal motor deficits and no sensory deficits noted Speech: speech normal Psych mental status grossly normal, cooperative, affect normal, speech normal and activity/motor behavior normal Attitude: calm and engaged Activity / Motor Behavior: appropriate eye contact Debridement Note Debridement Note No debridement was completed: No debridement was completed today Post-Debridement Measurements and Additional Note: Post-Debridement Measurements/Treatment WC - Nurse 1 - General Ulcer Assessment Start: 01/19/24 14:23 Freq: Status: Active Protocol: TWYLA Activity Type Activity Date Activity User E-sign Co-sign Detail Recorded Client Recorded Date Recorded By Document 01/19/24 14:23 ML [email or web address] 01/19/24 14:30 ML 01/19/24 14:23 - Today's Visit Information Type of service Follow-up Visit (Physician/FIRE CONTROL SYSTEM INSTALLER ) Arrival Mode Ambulatory Transfer Assistance None Patient Identification Verified (Name & Yes ) Patient Requires Transmission-Based No Precautions Height and Weight Body Mass Index (BMI) 36.0 BMI Classification Obese Vital Signs Temperature (97.8 F-99.1 F) 98.2 F Temperature Source Oral Pulse Rate (60-100) 67 Pulse Location Monitor Respiratory Rate (12-18) 14 Respiratory rate source Ausculation Blood Pressure (90/60-120/80) 154/89 H Blood Pressure Mean (mm Hg) 110 Source Monitor Position Sitting Blood Pressure Location Left Arm History Since Last Visit- (Skip if this is Patient's initial visit) Have you changed medications since your No last visit? Any new allergies or adverse reactions No Had a fall/change in ADL's that may No increase risk of falls Signs or symptoms of abuse and/or No neglect since last visit Have you been in the hospital since your No last visit? Has dressing in place as prescribed Yes Has compression in place as prescribed N/A Has offloadiing in place as prescribed N/A Experienced any changes in pain level or No management Left Footwear Regular Shoe Right Footwear Regular Shoe Pain Scale: 0-10 Numeric Is Patient Pain Free? No - Nurse 1 - General Ulcer Measurement Start: 01/19/24 14:23 Freq: Status: Active Protocol: Activity Type Activity Date Activity User E-sign Co-sign Detail Recorded Client Recorded Date Recorded By Document 01/19/24 14:23 ML [email or web address] 01/19/24 14:30 ML 01/19/24 14:23 Wound Center Nurse 1 #1 R Post Upper Arm -Combined with (Name of Wound-Exactly 1 as it is documented) -Current Size (cm) - Length 0.3 -Current Size (cm) - Width 0.2 -Total Square Cm 0.06 -Exudate Amt Medium -Exudate Type Serosanguineous -Wound Margin Distinct, Outline Attached -Granulation Amt Medium (34-66%) -Slough/Fibrin Yes -Necrosis Amt Medium (34-66%) -Necrotic Tissue Type Adherent Slough -Texture (Farzaneh-wound Skin Appearance) No Abnormality -Moisture (Farzaneh-wound Skin Appearance) No Abnormality -Color (Farzaneh-wound Skin Appearance) No Abnormality -Temperature (Farzaneh-wound Skin No Abnormality Appearance) (Pt Warm) -Ulcer Cleansing Rinsed/ Irrigated with Saline -Anesthetic Used 5% Lidocaine Gel - Nurse 2 - General Ulcer CM Notes Start: 01/19/24 14:23 Freq: Status: Active Protocol: Activity Type Activity Date Activity User E-sign Co-sign Detail Recorded Client Recorded Date Recorded By Document 01/19/24 14:36 [facility] 01/19/24 14:37 07/18/24 14:36 Wound Center Nurse 2 -Time 14:36 -Correct Patient Yes -Correct Side, Site, Position Yes -Wound/Ulcer Outcome Not Healed -Wound Comment(s) wound measurement 0.3 x 0.5 x 0.1 Pain Scale: 0-10 Numeric Is Patient Pain Free? Yes WC - Nurse 3 - General Ulcer D/C NN Start: 01/19/24 14:23 Freq: Status: Active Protocol: Activity Type Activity Date Activity User E-sign Co-sign Detail Recorded Client Recorded Date Recorded By Document 01/19/24 14:42 KW f 01/19/24 14:46 KW 01/19/24 14:42 Wound Care Center Nurse 3 #1 R Post Upper Arm -Primary Dressing Applied Mepilex Border -Other Dressing santyl with moist gauze -Mepilex Border 1 Pain Scale: 0-10 Numeric Is Patient Pain Free? Yes Assessment/Plan Assessment/Plan (1) Wound of right upper extremity: CODE(S): S41.101A - Unspecified open wound of right upper arm, initial encounter PLAN: Plan For wound care: (1) Wash the area with hibiclens, rinse well, and pat to dry. (2) Apply a nickel-thick layer of Santyl to the wound bed. (3) Cover with a lightly moistened gauze (4) Wrap with dry Kerlix around the arm, tape to the dressing. (5) Apply low compression tubigrip. (6) Change daily or more often as needed to keep clean and dry. Continue to apply lotrisone cream daily as needed to manage itching/irritation. No signs/symptoms concerning for infection today. She will return in 2 weeks or sooner as needed.
--- NOTE | 2024-01-20 11:40 | WC ---
PHOTO 01/19/24 RIGHT POST. UPPER ARM
== END 2024-02-01 23:59 | disposition home or self-care (01) ==
LOC: WC 08:53
PROVIDERS: PCP Internal Medicine; Referring Provider Internal Medicine; Visit Provider Physician Assistant
DX: S41.101A Unspecified open wound of right upper arm, initial encounter (principal); K86.1 Other chronic pancreatitis; M79.7 Fibromyalgia; T22.23 Burn of second degree of upper arm; X16.XXXS Contact with hot heating appliances, radiators and pipes, sequela; Z79.01 Long term (current) use of anticoagulants; Z86.718 Personal history of other venous thrombosis and embolism
CPT/HCPCS: 99213; G0463

== ENCOUNTER 2024-02-02 12:52 | Outpatient (CLI) | payer MEDICARE, SELFPAY | END 2024-02-02 23:59 | disposition home or self-care (01) | LOC: MEDOUTP 12:52 | PROVIDERS: PCP Internal Medicine; Referring Provider Internal Medicine; Visit Provider Internal Medicine | DX: Z95.828 Presence of other vascular implants and grafts (principal) | CPT/HCPCS: 96523 ==

== ENCOUNTER 2024-02-02 13:14 | Outpatient (RCR) | payer MEDICARE, SELFPAY ==
[2024-02-02 00:19] VITALS: BP 184/79; PULSE 73; RESP 20; TEMP 36.1; BMI 36.0
[2024-02-02 13:37] VITALS: BP 129/74; PULSE 87; RESP 18; TEMP 35.7; BMI 36.0
--- NOTE | 2024-02-02 15:02 | PCM.WC.PN ---
History of Present Illness Date of Service: 02/02/24 Chief Complaint: R upper arm wound History of Wound: Tana Martines is a very pleasant 68 y/o female who presents to the wound healing center today for evaluation and management of a R upper arm wound. She is referred by Dr. Ch. She is accompanied to her appointment today by her who does help with wound care. This wound has been present for 4 weeks now. Four weeks ago, she fell asleep on a heating pad that she used for back pain. Somehow, it ended up bunched at her arm and it burned the skin there. Initially, she reports she had a very large blister which eventually ruptured and left behind this wound. As per Dr. Ch's instructions, she has been cleansing the area with Hibiclens, then applying Bacitracin, and covering with dry gauze. She has been changing these dressings daily. She does not think the wound is getting any worse, but does not seem to be making a lot of progress towards healing. There is a lot of thick slough present. Dr. Ch had prescribed Santyl, but one tube was $100 so they did not get this. She has not had any sharp debridement. She has not had any wound cultures or been on any antibiotics. She is noticing a lot of serous drainage. No foul odor, expanding erythema, warmth, focal swelling, nausea, vomiting, fevers, or chills. The wound is painful, but not as painful as when it initially occurred. She is on warfarin for history of PFO and recurrent DVT. She does have fibromyalgia and DDD. She has history of recurrent pancreatitis though no recent flares. She has extensive surgical history including gastric bypass, hysterectomy, appendectomy, cholecystectomy. She does not smoke. She is not diabetic. It is noted that she unfortunately as a very high copay for debridement under her current insurance plan. Will keep this in mind throughout wound management. Subjective Subjective Tana returns to the wound center for evaluation of her R arm wound. She thinks that it has healed. She has not noticed any drainage on the bandage for a few days. Objective Data Objective Data Vital Signs: Vital Signs Temp Pulse Resp BP 96.3 F L 87 18 129/74 H 02/02/24 13:37 02/02/24 13:37 02/02/24 13:37 02/02/24 13:37 Weight: 178 lb 6.765 oz Body Mass Index (BMI) 36.0 Charges/Coding Visit Charges Office Visits / Consults: 68199 OV L2 Est 10min Physical Exam Const alert, oriented x3, no apparent distress, healthy appearing and well nourished General Appearance: cooperative and comfortable HEENT normocephalic, head/scalp atraumatic, hearing grossly normal bilaterally, external ears normal and external nose normal Eyes EOMs intact bilaterally General Eye: normal appearance of both eyes Neck General: normal visual inspection and trachea midline Resp normal respiratory effort, no retractions and no use of accessory muscles Effort and Inspection: able to speak in complete sentences; Negative for labored, stridor, actively coughing, retractions or audible wheezes Cardio regular rate and regular rhythm Extremity no clubbing, cyanosis or edema Skin Wounds: wounds noted Wound Narrative: R lateral upper arm wound appears nearly fully epithelialized with what appears to be a very small <0.1x0.1cm superficially open area remaining. Neuro oriented x3, CN's II-XII intact bilaterally, moves all extremities, no focal motor deficits and no sensory deficits noted Speech: speech normal Psych mental status grossly normal, cooperative, affect normal, speech normal and activity/motor behavior normal Attitude: calm and engaged Activity / Motor Behavior: appropriate eye contact Debridement Note Debridement Note No debridement was completed: No debridement was completed today Post-Debridement Measurements and Additional Note: Post-Debridement Measurements/Treatment KIRA - Nurse 1 - General Ulcer Assessment Start: 02/02/24 13:37 Freq: Status: Active Protocol: TWYLA Activity Type Activity Date Activity User E-sign Co-sign Detail Recorded Client Recorded Date Recorded By Document 02/02/24 13:37 RB wound 02/02/24 13:39 RB 02/02/24 13:37 - Today's Visit Information Type of service Follow-up Visit (Physician/PRODUCT STRATEGY DIRECTOR ) Arrival Mode Ambulatory Transfer Assistance None Patient Identification Verified (Name & Yes ) Patient Requires Transmission-Based No Precautions Height and Weight Body Mass Index (BMI) 36.0 BMI Classification Obese Vital Signs Temperature (97.8 F-99.1 F) 96.3 F L Temperature Source Temporal Pulse Rate (60-100) 87 Pulse Location Monitor Respiratory Rate (12-18) 18 Respiratory rate source Observation Blood Pressure (90/60-120/80) 129/74 H Blood Pressure Mean (mm Hg) 92 Source Monitor Position Semi-Fowlers Blood Pressure Location Left Arm History Since Last Visit- (Skip if this is Patient's initial visit) Have you changed medications since your No last visit? Any new allergies or adverse reactions No Had a fall/change in ADL's that may No increase risk of falls Signs or symptoms of abuse and/or No neglect since last visit Have you been in the hospital since your No last visit? Has dressing in place as prescribed Yes Has compression in place as prescribed No Has offloadiing in place as prescribed No Experienced any changes in pain level or No management Pain Scale: 0-10 Numeric Is Patient Pain Free? Yes WC - Nurse 1 - General Ulcer Measurement Start: 02/02/24 13:37 Freq: Status: Active Protocol: Activity Type Activity Date Activity User E-sign Co-sign Detail Recorded Client Recorded Date Recorded By Document 02/02/24 13:37 RB wound 02/02/24 13:39 RB 02/02/24 13:37 Wound Center Nurse 1 #1 R Post Upper Arm -Combined with other wound No -Current Size (cm) - Length 0.1 -Current Size (cm) - Width 0.1 -Current Size (cm) - Depth 0.1 -Total Square Cm 0.01 -Photo Taken Yes -Tunneling No -Undermining/Tunneling No -Circular Undermining No -Exudate Amt Medium -Exudate Type Serosanguineous -Wound Margin Distinct, Outline Attached -Granulation Amt Medium (34-66%) -Granulation Quality Hel[place] -Slough/Fibrin Yes -Necrosis Amt Medium (34-66%) -Necrotic Tissue Type Adherent Slough -Structure Exposed N/A -Texture (Farzaneh-wound Skin Appearance) Assessed -Moisture (Farzaneh-wound Skin Appearance) Assessed -Color (Farzaneh-wound Skin Appearance) Assessed -Temperature (Farzaneh-wound Skin No Abnormality Appearance) (Pt Warm) -Tenderness on Palpation (Farzaneh-wound No Skin Appearance) -Ulcer Cleansing Wound Cleanser -Foul Odor after Cleansing No -Anesthetic Used 5% Lidocaine Gel KIRA - Nurse 2 - General Ulcer CM Notes Start: 02/02/24 13:37 Freq: Status: Active Protocol: Activity Type Activity Date Activity User E-sign Co-sign Detail Recorded Client Recorded Date Recorded By Document 02/02/24 14:06 BM[facility] [id number] 02/02/24 14:09 [facility] 02/02/24 14:06 Wound Center Nurse 2 -Post Debridement (cm) - Length 0.1 -Post Debridement (cm) - Width 0.1 -Post Debridement (cm) - Depth 0.1 -Total Square (Post) (cm) 0.01 -Area of Debridement (cm) - Length 0.1 -Area of Debridement (cm) - Width 0.1 -Total Square (Area) (cm) 0.01 -Wound/Ulcer Outcome Healed- Epithelialized Pain Scale: 0-10 Numeric Is Patient Pain Free? Yes - Nurse 3 - General Ulcer D/C NN Start: 02/02/24 13:37 Freq: Status: Active Protocol: Activity Type Activity Date Activity User E-sign Co-sign Detail Recorded Client Recorded Date Recorded By Document 02/02/24 14:20 RB wound 02/02/24 14:21 RB 02/02/24 14:20 Wound Care Center Nurse 3 #1 R Post Upper Arm -Ulcer Cleansing Rinsed/ Irrigated with Saline -Primary Dressing Applied C Hydrogel ($) -Primary Dressing Covered/Secured with Dry Gauze, Secured with Tape Treatment Response Procedure Tolerated Well Pain Scale: 0-10 Numeric Is Patient Pain Free? Yes Teaching: Wound Center dressing wound -Person Taught Patient -Teaching Method Discussion, Demonstration -Response to teaching Verbalize Understanding WC - Visit Discharge Discharge Condition Stable Ambulatory Status Ambulatory Transportation Private Auto Medication Reconcilliation completed & No provided to patient/care provider Clinical Summary of Care Provided Yes Assessment/Plan Assessment/Plan (1) Wound of right upper extremity: CODE(S): S41.101A - Unspecified open wound of right upper arm, initial encounter QUALIFIERS: Qualified Code(s): S41.101D - Unspecified open wound of right upper arm, subsequent encounter PLAN: Plan She is discharged from the wound healing center today. I advise continuing to keep the area covered for another 7-10 days to continue to protect the delicate newly healed tissue. She is advised to please return as needed.
--- NOTE | 2024-02-03 08:44 | WC ---
PHOTO 02/02/24 RIGHT POST ARM
--- NOTE | 2024-02-06 09:46 | WC ---
PHOTO 02/02/24 RIGHT POST ARM
== END 2024-02-03 08:34 | disposition home or self-care (01) ==
LOC: WC 13:14
PROVIDERS: PCP Internal Medicine; Referring Provider Internal Medicine; Visit Provider Physician Assistant
DX: S41.101A Unspecified open wound of right upper arm, initial encounter (principal); K86.1 Other chronic pancreatitis; T22.23 Burn of second degree of upper arm; X16.XXXS Contact with hot heating appliances, radiators and pipes, sequela; M79.7 Fibromyalgia; Z79.01 Long term (current) use of anticoagulants; Z79.899 Other long term (current) drug therapy
CPT/HCPCS: 99212; G0463

== ENCOUNTER 2024-03-01 12:00 | Outpatient (CLI) | payer MEDICARE, SELFPAY | END 2024-03-01 23:59 | disposition home or self-care (01) | LOC: MEDOUTP 12:01 | PROVIDERS: PCP Internal Medicine; Referring Provider Internal Medicine; Visit Provider Internal Medicine | DX: Z95.828 Presence of other vascular implants and grafts (principal) | CPT/HCPCS: 96523 ==

== ENCOUNTER → 2024-04-24 | Outpatient (CLI) | payer MEDICARE, SELFPAY ==
--- NOTE | 2024-04-24 16:47 | CT_ITS ---
INDICATION: SEVERE ASTHMA AND COUGH EXAMINATION: CT CHEST WITHOUT CONTRAST - CT Chest W/O Contrast Injection TECHNIQUE: Helically acquired images were obtained of the chest. The protocol utilizes one or more of the following dose reduction techniques: automated exposure control, adjustment of mA and/or kV according to patient size,and/or use of iterative reconstruction technique. IV Contrast dosage and agent: None. RADIATION DOSAGE (If Supplied By Facility): CTDIvol = ( 16.15 ) mGy, DLP = ( 528.68 ) mGycm COMPARISON: Prior study dated: 09/02/2021 FINDINGS: LUNGS, PLEURA AND LARGE AIRWAYS: Chronic patchy opacity in the right upper lobe probably due to scarring. No focal consolidation. No pleural effusion or thickening. No pneumothorax. THYROID: No thyroid lesions. HEART AND PERICARDIUM: Heart size is normal. No pericardial effusion. CORONARY ARTERIES: Coronary artery calcification is not seen. VESSELS: Bilateral Port-A-Cath with the tips in the distal superior vena cava and cavoatrial junction. No evidence of thoracic aortic aneurysm. MEDIASTINUM AND PEGGY: No mediastinal or hilar adenopathy. Esophagus is unremarkable. No hiatal hernia. UPPER ABDOMEN: Fecal retention. Surgical clips in the region of the stomach. Status post cholecystectomy. BONES: No suspicious lytic or blastic abnormality. CT/Chest without Contrast IMPRESSION: No acute pulmonary infiltrate or pleural effusions. Electronically Signed: Waldo Henry MD at 14:12 EDT ,
== END | disposition home or self-care (01) ==
LOC: CT 16:42
PROVIDERS: PCP Internal Medicine; Referring Provider Internal Medicine Pulmonary Disease; Visit Provider Internal Medicine Pulmonary Disease
DX: J45.50 Severe persistent asthma, uncomplicated (principal); R05.9 Cough, unspecified
CPT/HCPCS: 71250

== ENCOUNTER 2024-06-15 10:22 | Outpatient (CLI) | payer MEDICARE, SELFPAY | END 2024-06-15 23:59 | disposition home or self-care (01) | PROVIDERS: PCP Internal Medicine; Referring Provider Internal Medicine; Visit Provider Internal Medicine | DX: Z95.828 Presence of other vascular implants and grafts (principal) | CPT/HCPCS: 96523; A4216 ==

== ENCOUNTER 2024-08-21 11:51 | Outpatient (CLI) | payer MEDICARE, SELFPAY ==
[2024-08-21 12:46] LABS: Absolute Lymphocyte Count 2.18 X10^3/uL (0.83-4.51); Absolute Neutrophil Count 4.4 X10^3/uL (2.0-7.7); Basophil# 0.01 X10^3/uL; Basophil% 0.1 % (0-1); Eosinophil# 0.36 X10^3/uL; Eosinophils% 4.7 % (0-5); Hemoglobin 10.6 g/dL (12.0-15.0); Lymphocyte # 2.18 X10^3/ul (0.83-4.51); Lymphocyte % 28.7 % (19-41); Mean Corp Hgb Conc 33.1 g/dL (32-36); Mean Corpuscular Volume 87.7 fL (81-99); Mean Platelet Vol. 9.7 fl (6.2-12.0); Monocyte# 0.65 X10^3/uL; Monocyte% 8.6 % (0-10); NRBC Flagged by Analyzer 0 % (0-5); Neutrophil # 4.38 X10^3/uL (2.7-7.7); Neutrophil % 57.6 % (47-70); Platelet Count 277 K/mm3 (150-450); RBC Distribution Width CV 14.6 % (11.6-14.6); RBC Distribution Width SD 46.9 fl (35.1-43.9); Red Blood Count 3.65 M/mm3 (4.2-5.4); White Blood Count 7.6 K/mm3 (4.4-11.0)
[2024-08-21 12:58] LABS: Erythrocyte Sedimentation Rate 13 mm/hr (0-30)
[2024-08-21 13:26] LABS: ALB/GLOB Ratio 1.1 RATIO (0.9-2.4); AST(SGOT) 22 U/L (15-37); Alanine Aminotransfer ALT/SGPT 17 U/L (13-56); Albumin, Serum 3.2 g/dL (3.2-5.0); Alkaline Phosphatase 105 U/L (45-117); Anion Gap 7 (5-15); BUN 6 mg/dL (7-18); BUN/Creat Ratio 8.9 RATIO (10-20); CRP 4.04 mg/L (0.0-3.0); Chloride 99 mmol/L (98-107); Creatinine, Serum 0.67 mg/dL (0.55-1.02); EST Glomerular Filtration Rate 93 mL/min (>60); Est Glom Filt Rate - Afr Amer 112 mL/min (>60); Glucose 66 mg/dL (74-106); Potassium 4.2 mmol/L (3.5-5.1); Protein, Total 6.2 g/dL (6.4-8.2); Rheumatoid Factor < 10.0 IU/mL (<15); Sodium Level 134 mmol/L (136-145)
--- NOTE | 2024-08-21 15:15 | RAD_ITS ---
PROCEDURE: CHEST PA AND LATERAL REASON FOR EXAM: Inflammatory polyarthropathy, other chronic pancreatitis TECHNIQUE: Frontal and lateral views of the chest. COMPARISON: 03/08/2024 FINDINGS: Bilateral IJ port with tips in the SVC The heart size is normal. The mediastinal contour is unremarkable. The lungs are clear. The bones are unremarkable. RAD/Chest PA and Lateral IMPRESSION: No radiographic evidence of acute cardiopulmonary disease Reading Location: [facility]
[2024-08-21 15:33] LABS: Hepatitis B Surface Antibody Non-Reactive; Hepatitis B Surface Antigen Non-Reactive (Nonreactive); Hepatitis C Antibody Non-Reactive (Nonreactive)
[2024-08-24 04:07] LABS: Angiotensin Convert Enzyme 100 U/L (14-82); CCP IgG Antibodies 4 units (0-19); QNTFERON TB Mitogen Value > 10.00 IU/mL (.); QNTFERON TB Nil Value 0.05 IU/mL (.); QNTFERON TB1+ Ag Value 0.04 IU/mL (.); QNTFERON TB2+ Ag Value 0.05 IU/mL (.); QNTIFERON TB Positive Criteria Negative (Negative)
[2024-08-24 08:38] LABS: ANTINUCLEAR ANTIBODIES DIRECT Negative
== END 2024-08-21 23:59 | disposition home or self-care (01) ==
PROVIDERS: PCP Internal Medicine; Referring Provider Internal Medicine Rheumatology; Visit Provider Internal Medicine
DX: Z95.828 Presence of other vascular implants and grafts (principal); J45.50 Severe persistent asthma, uncomplicated; K86.1 Other chronic pancreatitis; J84.9 Interstitial pulmonary disease, unspecified; M06.4 Inflammatory polyarthropathy; M79.7 Fibromyalgia; I10 Essential (primary) hypertension
CPT/HCPCS: 36591; 71046; 80053; 82164; 85025; 85652; 86038; 86140; 86200; 86431; 86480; 86706; 86803; 87340; A4216

== ENCOUNTER 2024-08-28 12:30 | Outpatient (CLI) | payer MEDICARE, SELFPAY | END 2024-08-28 23:59 | disposition home or self-care (01) | LOC: MEDOUTP 09-25 14:28 | PROVIDERS: PCP Internal Medicine; Referring Provider Internal Medicine; Visit Provider Internal Medicine | DX: Z00.00 Encounter for general adult medical examination without abnormal findings (principal) ==

== ENCOUNTER 2024-09-11 13:37 | Outpatient (CLI) | payer MEDICARE, SELFPAY ==
[2024-08-28 12:49] VITALS: BP 166/77; PULSE 91; RESP 16; TEMP 36.9; O2SAT 97
[2024-08-28] MEDS: 0.9 % NaCl (Sterile) Posiflush 10 mL IV (13:02)
[2024-08-28] MEDS: Iron Sucrose Complex 200 MG in 0.9% Normal Saline (100mL Bag) 100 ML 220 MG IV (13:04)
[2024-08-28] MEDS: 0.9% NaCl VAD Flush IV (13:42)
[2024-08-28 13:45] VITALS: BP 159/70; PULSE 83; RESP 16; O2SAT 97
[2024-09-11] MEDS: 0.9% NaCl Peripheral Flush Adult/Peds IV ×2 (14:07→15:49)
[2024-09-11] MEDS: 0.9 % NaCl (Sterile) Posiflush 10 mL IV (14:07)
[2024-09-11 14:26] VITALS: BP 155/78; PULSE 85; RESP 16; TEMP 36.6; O2SAT 98; BMI 36.3
[2024-09-11] MEDS: Iron Sucrose Complex 200 MG in 0.9% Normal Saline (100mL Bag) 100 ML 220 MG IV (14:57)
[2024-09-11] MEDS: 0.9% Normal Saline (100mL Bag) 100 ML 15 ML IV (14:57)
[2024-09-11 15:30] LABS: Anion Gap 12 (5-15); BUN 8 mg/dL (4-19); BUN/Creat Ratio 10.6 RATIO (10-20); Calcium,Total 9.3 mg/dL (7.6-11.0); Carbon Dioxide 24.9 mmol/L (21.0-32.0); Chloride 92 mmol/L (98-108); Creatinine, Serum 0.72 mg/dL (0.70-1.20); EST Glomerular Filtration Rate 91 (>60); Estimated Creatinine Clearance 63.71 ml/min (50-250); Glucose 106 mg/dL (70-99); Potassium 4.7 mmol/L (3.3-5.1); Sodium Level 129 mmol/L (133-145)
== END 2024-09-11 23:59 | disposition home or self-care (01) ==
PROVIDERS: Internal Medicine Pulmonary Disease; PCP Internal Medicine; Referring Provider Internal Medicine; Visit Provider Internal Medicine
DX: D50.9 Iron deficiency anemia, unspecified (principal)
CPT/HCPCS: 96365 ×2; 36591; 80048; J1756; A4216

== ENCOUNTER → 2024-09-11 | Outpatient (CLI) | payer MEDICARE, SELFPAY ==
--- NOTE | 2024-09-11 13:37 | CT_ITS ---
PROCEDURE: CHEST WITHOUT CONTRAST REASON FOR EXAM: ASYMPTOMATIC MENOPAUSAL STATE TECHNIQUE: Chest CT without contrast. COMPARISON: Comparison is made with prior study dated April 24, 2024. FINDINGS: Hardware: Bilateral port a catheter is seen with the tips in the superior vena cava. Lymph nodes: No mediastinal hilar or axillary lymphadenopathy. Heart and Vasculature: Normal heart size. No pericardial effusion. Thoracic aorta and pulmonary arteries have normal contours; noncontrast technique limits evaluation. Coronary Artery Calcifications: Absent Lungs and Airways: The lungs are normally expanded and clear. Pleura: No pleural effusion. No pneumothorax. Upper Abdomen: Prior cholecystectomy. Subtotal resection of the stomach. Bones: Degenerative changes of the thoracic spine. CT/Chest without Contrast IMPRESSION: No acute abnormality is seen. One or more dose reduction techniques were used (e.g., Automated exposure contr ol, adjustment of the mA and/or kV according to patient size, use of iterative reconstruction technique). Reading Location: [place] [id number]
== END | disposition home or self-care (01) ==
PROVIDERS: PCP Internal Medicine; Referring Provider Internal Medicine; Visit Provider Internal Medicine
DX: Z78.0 Asymptomatic menopausal state (principal)
CPT/HCPCS: 71250

== ENCOUNTER 2024-09-12 13:40 | Day surgery (SDC) | payer MEDICARE, SELFPAY ==
--- NOTE | 2024-09-11 16:35 | PAT.ANE_ITS ---
Pre-Assessment Diagnosis/Proposed Procedure Planned Operative Procedure(s): BRONCHOSCOPY Anesthesia History Anesthesia History - master yacht: Anesthesia History - master yacht Hx Hospitalization No 09/11/24 10:40 Any Problems With Anesthesia No 09/11/24 10:40 Cholinesterase deficiency No 09/11/24 10:40 You/Your Family Experience No 09/11/24 10:40 fever (hyperthermia) with Relationship Recent Exposure to Contagious No 03/08/24 10:29 Disease Does patient have nerve No 09/11/24 10:40 stimulator Patient instructed to have device shut off --Does patient have Pacemaker or ICD? When Was Last Pacemaker Check QUESTION #4 FULL TEXT: You/Your Family Experience fever (hyperthermia) with Anesthesia Last Oral Intake Last Oral intake: Last Oral Intake NPO since Meds taken in AM with sips of water? Meds patient instructed to take am of surgery PONV PONV - master yacht: PONV - master yacht Female Yes 09/11/24 10:40 HX of Motion Sickness Yes 09/11/24 10:40 HX of N/V After Surgery No 09/11/24 10:40 Non-Smoker Yes 09/11/24 10:40 Duration of Surgery greater No 09/11/24 10:40 than 60 minutes Number of Risk Factors 3 09/11/24 10:40 PONV Score Moderate Risk 09/11/24 10:40 Height & Weight Height & Weight: Anesthesia: Height & Weight Height 4 ft 11 in 08/28/24 12:49 Respiratory Assessment Respiratory Assessment - master yacht: Respiratory Tract Infection Hx - master yacht Hx Respiratory Tract Infection No 09/11/24 10:40 STOP Sleep Apnea STOP Sleep Apnea - master yacht: STOP Sleep Apnea - master yacht Hx Hypertension Yes: PER PT, CONTROLLED ON 09/11/24 10:40 MEDS Hx Sleep Apnea No 09/11/24 10:40 CPAP No 09/11/24 10:40 BIPAP No 09/11/24 10:40 Do you snore loudly (louder No 09/11/24 10:40 than talking or can be heard Do you often feel tired/ No 09/11/24 10:40 fatigued/ sleepy during daytime? Has anyone observed you stop No 09/11/24 10:40 breathing during sleep? STOP Results Negative 09/11/24 10:40 QUESTION #5 FULL TEXT : Do you snore loudly (louder than talking or can be heard through closed doors)? Tobacco Use History Tobacco Use History - master yacht: Tobacco Use History - master yacht Tobacco Use Smoking Status Never smoker 09/11/24 10:40 Hx Tobacco Use No 09/11/24 10:40 Years Smoking Packs Smoked per Day Smoking Cessation Date was within the last 15 years Hx Smoking Cessation Date Hx Smoking Cessation Counseling Hematologic Medial History Hematologic Hx - master yacht: Hematologic Medical Hx - driver/guide Hx of Blood Transfusion No 09/11/24 10:40 Hx of Transfusion in last 3 No 09/11/24 10:40 Months Date of Last Transfusion (if within last 3 months) Ever experience any problems No 09/11/24 10:40 with transfusion(s)? Specify any problems Hx of Preganancy in last 3 No 09/11/24 10:40 Months Nurse Filling Out Transfusion STEPHANIE 09/11/24 10:40 & Questions: Date: 09/11/24 09/11/24 10:40 Time: 10:43 09/11/24 10:40 Patient unable to answer at this time (ie. confused, unrespo /Reproduction History /Reproductive History - master yacht: /Reproductive Hx- master yacht Hx Now No 09/11/24 10:40 Gestational Age (in weeks): EDC: Hx Hx Para Hx Section SAB No 09/11/24 10:40 PFSH Medical History (Updated 09/11/24 @ 10:54 by Kathleen Goss) Easy bruising Excessive bleeding Dietary restriction Gastric reflux Shortness of breath on exertion Leg cramps History of edema RSV infection (~06/2023) Osteoporosis Pancreatitis Pulmonary embolism Hypoxia Essential hypertension Left bundle branch block Anemia Wears glasses Wears dentures Depression History of steroid therapy Arthritis Low iron Hepatitis History of hiatal hernia Non-smoker History of Holter monitoring History of echocardiogram History of stress test Cardiology follow-up encounter Port-A-Cath in place Other iron deficiency anemias GERD (gastroesophageal reflux disease) Osteoarthritis Other intervertebral disc degeneration, lumbosacral region Fibromyalgia Abnormal coagulation profile Tremor Age-related cognitive decline Elevated alkaline phosphatase level CRP elevated Interstitial lung disease Vascular catheter fitting or adjustment Degeneration of intervertebral disc of thoracic region Spondylosis of thoracic region without myelopathy or radiculopathy 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 Chronic obstructive pulmonary disease (COPD) suggested by initial evaluation Abnormal echocardiogram Patent foramen ovale Deep venous thrombosis Lumbosacral spondylosis Disc disease, degenerative, lumbar or lumbosacral Lumbosacral radiculopathy Cervical spondylosis Cervical spine degeneration COPD (chronic obstructive pulmonary disease) Chronic pancreatitis Chronic pain Hyponatremia Trapezius muscle spasm Home Medications ?Medication ?Instructions ?Recorded ?Last Taken ?Type duloxetine 60 mg capsule,delayed 60 mg PO QHS mental h ealth 07/30/13 05/14/23 History release montelukast 10 mg tablet 10 mg PO QHS breathing 07/3005/14/23 History multivitamin with folic acid 400 1 tab PO DAILY vitami n 08/29/13 05/15/23 History mcg tablet zolpidem 10 mg tablet 10 mg PO QHS PRN PRN Sleep 0 08/29/13 05/14/23 History tizanidine 4 mg tablet 4 mg PO TID MUSCLE RELAXER 0 07/31/15 05/15/23 History ascorbic acid (vitamin C) 500 mg 1,000 mg PO DAILY@080 0 supplement 09/08/15 05/15/23 History tablet ibuprofen 200 mg tablet 400 mg PO BID PRN PRN Pain 0 09/08/15 01/31/23 History calcium carbonate 500 mg PO DAILY@0800 supplem ent 10/20/15 05/15/23 History albuterol sulfate 2.5 mg/3 mL 2.5 mg inhalation Q4H NM N PRN 08/03/17 05/14/23 History (0.083 %) solution for nebulization Wheezing ergocalciferol (vitamin D2) 1,250 50,000 unit PO WE vazquez pplement 10/09/18 05/12/23 History mcg (50,000 unit) capsule pregabalin 25 mg capsule 25 mg PO BID neuropathy 12/0 08/2505/15/23 History hydrocodone-acetaminophen 5-325mg 1 tab PO TID PRN gabe n 10/25/22 05/15/23 History 5mg-325mg diltiazem HCl 120 mg tablet 120 mg PO BID heart rate 1 07/05/22 05/15/23 History (Cardizem) nitroglycerin 0.4 mg sublingual 0.4 mg sublingual Q5-1 5M PRN chest 05/05/23 05/15/23 Rx tablet (Nitrostat) pain #25 tabs warfarin 3 mg tablet 3 mg PO QHS #30 tabs 3 Unknown Rx Held on 09/11/24. Instructions: FOR BRONCHOSCOPY albuterol sulfate 90 mcg/actuation 1 inh inhalation ON CE PRN 08/25/23 Unknown History breath activated powder shortness of breath or wheez ing inhaler,sensor (Proair Digihaler) cyanocobalamin (vitamin B-12) 1,000 mcg PO DAILY 08/25 Unknown History 1,000 mcg tablet (Vitamin B-12) fentanyl 37.5 mcg/hour transdermal 37.5 mcg transderma l Q72H 08/25/23 Unknown History patch fluticasone propionate 250 1 inh inhalation BID Unknown History mcg/actuation blister powder for inhalation losartan 25 mg tablet 12.5 mg PO DAILY 08/25/23 Un known History omeprazole 20 mg capsule,delayed 20 mg PO BID 08/25/23 Unknown History release prednisone 20 mg tablet 30 mg PO DAILY 08/25/23 Unkn own History warfarin 1 mg tablet 0.5 mg PO DAILY 08/25/2312/26 History Held on 09/11/24. Instructions: FOR BRONCHOSCOPY warfarin 2 mg tablet 2 mg PO DAILY 08/25/23 Unkno wn History Held on 09/11/24. Instructions: FOR BRONCHOSCOPY dextromethorphan-guaifenesin ER 60 1 tab PO Q12H PRN c ough 10/25/23 Unknown History mg-1,200 mg tab,extend release,12hr (Mucinex DM) Zenpep 2 cap .Route .WITH MEALS Unknown History budesonide 0.5 mg/2 mL suspension 0.5 mg inhalation BI D 05/17/24 Unknown History for nebulization acetaminophen 500 mg capsule 1,000 mg PO Q4H PRN pain 09/11/24 Unknown History Allergy/AdvReac Type Severity Reaction Status Date / Time hydroxychloroquine sulfate Allergy Intermediate Rash Verified 09/11/24 10:30 (From Plaquenil) Penicillins Allergy Intermediate Rash Verified 09/11/24 10:30 adhesive tape Allergy Rash Verified 09/11/24 10:30 levofloxacin (From Levaquin) Allergy Unknown Verified 09/11/24 10:30 hydrochlorothiazide AdvReac Severe NEEDS Verified 09/11/24 10:30 FOLLOW-UP erythromycin base AdvReac Vomiting Verified 09/11/24 10:30 (Erythromycin Base) furosemide (From Lasix) AdvReac pancretitis Verified 09/11/24 10:30 Family History Mother , age 80 Myocardial infarction beginning age 60's, has had several LA's CAD (coronary artery disease) history of cardiac stents Father , age 65 Cancer pancreatic Grandfather Myocardial infarction Diabetes Surgical History (Updated 09/11/24 @ 10:39 by Kathleen Goss) History of esophagogastroduodenoscopy (EGD) History of colonoscopy History of selective injection of anesthetic agent around lumbar nerve root History of appendectomy History of embolic filter insertion Hx of jejunostomy History of cholecystectomy H/O: hysterectomy H/O gastric bypass Social History Smoking Status: Never smoker alcohol intake: never substance use type: does not use caffeine: Yes Type: coffee Number of servings: 1 what type of physical activity do you participate in: walking frequency: 1-2 times per week duration: 15-30 minutes/day seatbelt use: always do you feel safe at home: Yes Audit: Pertinent Findings Pertinent Findings EKG Perinent findings: NSR w/ LBBB Stress test pertinent findings: Hyperdynamic LV, otherwise WNL Echo (EF%) pertinent findings: EF 60-65% Additional pertinent findings: Hx patent ivette ovale, not seen previously Current Visit Impressions Current Visit Impressions: Need to follow up as to why patient is on prednisone - COPD exacerbation? From cardiac standpoint should be able to proceed with procedure. Recommendation Anesthesia Recommendation Anesthesia recommendation: OPTIMIZED for anesthesia
[2024-09-12] VITALS (7 sets, daily range): BP systolic 104–172; BP diastolic 74–133; PULSE 73–83; RESP 16–20; TEMP 36.4–37.3; O2SAT 97–100; BMI 35.6
--- NOTE | 2024-09-12 | FLU_PTH ---
PATIENT: JOSE J COIBAN LOC: EN U#:[id number] AGE/SX: 69/F ROOM: RE09/12/[address]: Dr. Brandan Salazar MD : [id number] BED: DIS: 09/12/2024 SPEC #: [id number] RECD: 09/13/24 13:10 STATUS: FER CARLOS #: [id number] [place]: 09/12/24 00:[address]: Brandan Salazar V DEPT: CYTOLOGY RECD BY: Fabio Carl ENTERED: 09/13/24 13:10 SP TYPE: Fluid OTHR DR: Dr. Sarah Ch MD Tissues: A - Lung, NOS Procedures: Special Stain Group II Special Stain Group I Surgery Specimen Level IV AFB Stain (control) GMS Stain (control) Cytospin Fluid Comments: Report says right upper lobe fluid. Tree sheet says right upper lobe but left is circled for BAL on tree sheet (Tree sheet is scanned in under physician order). Called office on 09/17/2024 at 12:50pm and spoke to Dania. She said Dr. Salazar confirmed cytology sample was collected on left upper lobe. HEADER OPERATION: Bronchoscopy, biopsy, washing PRE-OP DIAGNOSIS: Interstitial lung disease TISSUE SUBMITTED: Right upper lobe fluid for cytology DIAGNOSIS CYTOLOGY Left upper lobe, bronchoalveolar lavage:Acute inflammation and pulmonary macrophagesFungal hyphae and yeast forms are identified favor Erica (see comment) COMMENT A GMS stain is performed with appropriate positive controls, and they show fungal hyphae and yeast favor Erica. An AFB stain is performed with appropriate positive controls and is negative for acid-fast bacilli.Denise nicholson MD, 09/17/2024 CYTOLOGY STUDY Slides are reviewed. CYTOLOGY GROSS A. Received is 35 ml of red-mucoidy cloudy fluid labeled with the patient's name and and designated per the requisition as Right upper lobe fluid. Submitted for cytology preparation. 09/13/2024 CPT: 62608,53909o6 TC:2
--- NOTE | 2024-09-12 | LUNG_PTH ---
PATIENT: JOSE J COBIAN LOC: EN U#:[id number] AGE/SX: 69/F ROOM: RE09/12/[address]: Dr. Brandan Salazar MD : 1955 BED: DIS: 09/12/2024 SPEC #: [id number] RECD: 09/13/24 11:27 STATUS: FER RE #: [id number] [place]: 09/12/24 00:[address]: Brandan Salazar V DEPT: SURGICAL PATHOLOGY RECD BY: Fabio Carl ENTERED: 09/13/24 11:27 SP TYPE: LUNG BX OTHR DR: Dr. Sarah Ch MD Tissues: A - Lung, NOS Procedures: Surgery Specimen Level IV Comments: Report says right upper lobe biopsy. Tree sheet says right upper lobe (OP notes in EMR say left lobe). (Tree sheet is scanned in under physician order). Called office on 09/17/2024 at 12:50pm and spoke to Dania. She said Dr. Salazar confirmed biopsy sample was collected on right upper lobe. HEADER OPERATION: Bronchoscopy, biopsy, washing PRE-OP DIAGNOSIS: Interstitial lung disease TISSUE SUBMITTED: A- Right upper lobe biopsy MICROSCOPIC DIAGNOSIS LUNG, RIGHT UPPER LOBE, ENDOBRONCHIAL BIOPSY: Very light acute inflammationNo granulomas mekaJ lyn DURAN, 09/17/2024 MICROSCOPIC DESCRIPTION Slides are reviewed. GROSS DESCRIPTION The specimen is received in one container labeled with the patient's name and designated [id number]. The specimen consists of multiple fragments of mcknight-black soft tissue measuring in aggregate 1 x 0.3 x 0.3 cm. TE1 09/14/24. CPT: 16532, TC:
--- NOTE | 2024-09-12 14:01 | PCM.PRE.AN2 ---
ASA Classification* ASA Classification ASA Classification: 3 Assessment & Plan Anesthesia* Anesthesia Assessment Anesthesia Assessment: Discussed sedation and/or anesthesia options, risks, benefits, and alternatives with patient/parents/legal guardian/POA. Questions invited. The patient/parents/legal guardian/POA seems to understand and agrees to proceed with anesthesia plan. Reviewed the physical assessment, medical history, allergy history and patient home medications list prior to surgery/procedure/anesthetic and documented any changes. Performed airway and anesthesia risk assessments. Anesthesia Type Anesthesia Type: General (hx PFO. no air in IV) Anesthesia Focused Assessment* Airway Assessment Mouth opens: >3 cm Mallampati Score: II Focused Labs Anesthesia Preop lab: CBC WBC 7.6 K/mm3 (4.4-11.0) 08/21/24 12:08/21/24 RBC 3.65 M/mm3 (4.2-5.4) L 08/21/24 12:25 08/21/24 Hgb 10.6 g/dL (12.0-15.0) L 08/21/24 12:25 08/21/24 Hct 32.0 % (37-47) L 08/21/24 12:25 08/21/24 Plt Count 277 K/mm3 (150-450) 08/21/24 12:25 08/21/24 CHEMISTRY Potassium 4.7 mmol/L (3.3-5.1) 09/11/24 14:24 09/11/24 Sodium 129 mmol/L (133-145) L 09/11/24 14:24 09/11/24 BUN 8 mg/dL (4-19) 09/11/24 14:24 09/11/24 Creatinine 0.72 mg/dL (0.70-1.20) 09/11/24 14:24 09/11/24 Glucose 106 mg/dL (70-99) H 09/11/24 14:24 09/11/24 POC Glucose 238 mg/dL (74-106) H 06/08/23 11:16 06/08/23 TSH 0.55 uIU/mL (0.358-3.74) 10/28/21 13:24 10/28/21 COAG PT 26.2 SECONDS (11.7-14.9) H 06/08/23 08:10 06/08/23 Pre-Assessment Diagnosis/Proposed Procedure Planned Operative Procedure(s): BRONCHOSCOPY Anesthesia History Anesthesia History - guest room attendant: Anesthesia History - guest room attendant Hx Hospitalization No 09/11/24 10:40 Any Problems With Anesthesia No 09/11/24 10:40 Cholinesterase deficiency No 09/11/24 10:40 You/Your Family Experience No 09/11/24 10:40 fever (hyperthermia) with Relationship Recent Exposure to Contagious No 03/08/24 10:29 Disease Does patient have nerve No 09/11/24 10:40 stimulator Patient instructed to have device shut off --Does patient have Pacemaker or ICD? When Was Last Pacemaker Check QUESTION #4 FULL TEXT: You/Your Family Experience fever (hyperthermia) with Anesthesia Last Oral Intake Last Oral intake: Last Oral Intake NPO since Meds taken in AM with sips of water? Meds patient instructed to take am of surgery PONV PONV - guest room attendant: PONV - guest room attendant Female Yes 09/11/24 10:40 HX of Motion Sickness Yes 09/11/24 10:40 HX of N/V After Surgery No 09/11/24 10:40 Non-Smoker Yes 09/11/24 10:40 Duration of Surgery greater No 09/11/24 10:40 than 60 minutes Number of Risk Factors 3 09/11/24 10:40 PONV Score Moderate Risk 09/11/24 10:40 Height & Weight Height & Weight: Anesthesia: Height & Weight Height 4 ft 11 in 09/11/24 14:26 Respiratory Assessment Respiratory Assessment - guest room attendant: Respiratory Tract Infection Hx - guest room attendant Hx Respiratory Tract Infection No 09/11/24 10:40 STOP Sleep Apnea STOP Sleep Apnea - guest room attendant: STOP Sleep Apnea - guest room attendant Hx Hypertension Yes: PER PT, CONTROLLED ON 09/11/24 14:26 MEDS Hx Sleep Apnea No 09/11/24 10:40 CPAP No 09/11/24 10:40 BIPAP No 09/11/24 10:40 Do you snore loudly (louder No 09/11/24 10:40 than talking or can be heard Do you often feel tired/ No 09/11/24 10:40 fatigued/ sleepy during daytime? Has anyone observed you stop No 09/11/24 10:40 breathing during sleep? STOP Results Negative 09/11/24 10:40 QUESTION #5 FULL TEXT : Do you snore loudly (louder than talking or can be heard through closed doors)? Tobacco Use History Tobacco Use History - guest room attendant: Tobacco Use History - guest room attendant Tobacco Use Smoking Status Never smoker 09/11/24 10:40 Hx Tobacco Use No 09/11/24 10:40 Years Smoking Packs Smoked per Day Smoking Cessation Date was within the last 15 years Hx Smoking Cessation Date Hx Smoking Cessation Counseling Hematologic Medial History Hematologic Hx - guest room attendant: Hematologic Medical Hx - shear scrapman Hx of Blood Transfusion No 09/11/24 10:40 Hx of Transfusion in last 3 No 09/11/24 10:40 Months Date of Last Transfusion (if within last 3 months) Ever experience any problems No 09/11/24 10:40 with transfusion(s)? Specify any problems Hx of Preganancy in last 3 No 09/11/24 10:40 Months Nurse Filling Out Transfusion MGRIFFITH 09/11/24 10:40 & Questions: Date: 09/11/24 09/11/24 10:40 Time: 10:43 09/11/24 10:40 Patient unable to answer at this time (ie. confused, unrespo /Reproduction History /Reproductive History - guest room attendant: /Reproductive Hx- guest room attendant Hx Now No 09/11/24 10:40 Gestational Age (in weeks): EDC: Hx Hx Para Hx Section SAB No 09/11/24 10:40 PFSH Medical History Easy bruising Excessive bleeding Dietary restriction Gastric reflux Shortness of breath on exertion Leg cramps History of edema RSV infection (~06/2023) Osteoporosis Pancreatitis Pulmonary embolism Hypoxia Essential hypertension Left bundle branch block Anemia Wears glasses Wears dentures Depression History of steroid therapy Arthritis Low iron Hepatitis History of hiatal hernia Non-smoker History of Holter monitoring History of echocardiogram History of stress test Cardiology follow-up encounter Port-A-Cath in place Other iron deficiency anemias GERD (gastroesophageal reflux disease) Osteoarthritis Other intervertebral disc degeneration, lumbosacral region Fibromyalgia Abnormal coagulation profile Tremor Age-related cognitive decline Elevated alkaline phosphatase level CRP elevated Interstitial lung disease Vascular catheter fitting or adjustment Degeneration of intervertebral disc of thoracic region Spondylosis of thoracic region without myelopathy or radiculopathy prison current use of anticoagulant Chronic obstructive pulmonary disease (COPD) suggested by initial evaluation Abnormal echocardiogram Patent foramen ovale Deep venous thrombosis Lumbosacral spondylosis Disc disease, degenerative, lumbar or lumbosacral Lumbosacral radiculopathy Cervical spondylosis Cervical spine degeneration COPD (chronic obstructive pulmonary disease) Chronic pancreatitis Chronic pain Hyponatremia Trapezius muscle spasm Home Medications ?Medication ?Instructions ?Recorded ?Last Taken ?Type duloxetine 60 mg capsule,delayed 60 mg PO QHS mental health 07/30/13 05/14/23 History release montelukast 10 mg tablet 10 mg PO QHS breathing 07/30/13 05/14/23 History multivitamin with folic acid 400 1 tab PO DAILY vitamin 08/29/13 05/15/23 History mcg tablet zolpidem 10 mg tablet 10 mg PO QHS PRN PRN Sleep 08/29/13 05/14/23 History tizanidine 4 mg tablet 4 mg PO TID MUSCLE RELAXER 07/31/15 05/15/23 History ascorbic acid (vitamin C) 500 mg 1,000 mg PO DAILY@0800 supplement 09/08/15 05/15/23 History tablet ibuprofen 200 mg tablet 400 mg PO BID PRN PRN Pain 09/08/15 01/31/23 History calcium carbonate 500 mg PO DAILY@0800 supplement 10/20/15 05/15/23 History albuterol sulfate 2.5 mg/3 mL 2.5 mg inhalation Q4H PRN PRN 08/03/17 05/14/23 History (0.083 %) solution for nebulization Wheezing ergocalciferol (vitamin D2) 1,250 50,000 unit PO WE supplement 10/09/18 05/12/23 History mcg (50,000 unit) capsule pregabalin 25 mg capsule 25 mg PO BID neuropathy 06/04/22 05/15/23 History hydrocodone-acetaminophen 5-325mg 1 tab PO TID PRN pain 10/25/22 05/15/23 History 5mg-325mg diltiazem HCl 120 mg tablet 120 mg PO BID heart rate 05/05/23 05/15/23 History (Cardizem) nitroglycerin 0.4 mg sublingual 0.4 mg sublingual Q5-15M PRN chest 05/05/23 05/15/23 Rx tablet (Nitrostat) pain #25 tabs warfarin 3 mg tablet 3 mg PO QHS #30 tabs 06/08/23 Unknown Rx Held on 09/11/24. Instructions: FOR BRONCHOSCOPY albuterol sulfate 90 mcg/actuation 1 inh inhalation ONCE PRN 08/25/23 Unknown History breath activated powder shortness of breath or wheezing inhaler,sensor (Proair Digihaler) cyanocobalamin (vitamin B-12) 1,000 mcg PO DAILY 08/25/23 Unknown History 1,000 mcg tablet (Vitamin B-12) fentanyl 37.5 mcg/hour transdermal 37.5 mcg transdermal Q72H 08/25/23 Unknown History patch fluticasone propionate 250 1 inh inhalation BID 08/25/23 Unknown History mcg/actuation blister powder for inhalation losartan 25 mg tablet 12.5 mg PO DAILY 08/25/23 Unknown History omeprazole 20 mg capsule,delayed 20 mg PO BID 08/25/23 Unknown History release prednisone 20 mg tablet 30 mg PO DAILY 08/25/23 Unknown History warfarin 1 mg tablet 0.5 mg PO DAILY 08/25/23 09/06/24 History Held on 09/11/24. Instructions: FOR BRONCHOSCOPY warfarin 2 mg tablet 2 mg PO DAILY 08/25/23 Unknown History Held on 09/11/24. Instructions: FOR BRONCHOSCOPY dextromethorphan-guaifenesin ER 60 1 tab PO Q12H PRN cough 10/25/23 Unknown History mg-1,200 mg tab,extend release,12hr (Mucinex DM) Zenpep 2 cap .Route .WITH MEALS 10/27/23 Unknown History budesonide 0.5 mg/2 mL suspension 0.5 mg inhalation BID 05/17/24 Unknown History for nebulization acetaminophen 500 mg capsule 1,000 mg PO Q4H PRN pain 09/11/24 Unknown History Allergy/AdvReac Type Severity Reaction Status Date / Time hydroxychloroquine sulfate Allergy Intermediate Rash Verified 09/11/24 10:30 (From Plaquenil) Penicillins Allergy Intermediate Rash Verified 09/11/24 10:30 adhesive tape Allergy Rash Verified 09/11/24 10:30 levofloxacin (From Levaquin) Allergy Unknown Verified 09/11/24 10:30 hydrochlorothiazide AdvReac Severe NEEDS Verified 09/11/24 10:30 FOLLOW-UP erythromycin base AdvReac Vomiting Verified 09/11/24 10:30 (Erythromycin Base) furosemide (From Lasix) AdvReac pancretitis Verified 09/11/24 10:30 Family History Mother , age 80 Myocardial infarction beginning age 60's, has had several VT's CAD (coronary artery disease) history of cardiac stents Father , age 65 Cancer pancreatic Grandfather Myocardial infarction Diabetes Surgical History History of esophagogastroduodenoscopy (EGD) History of colonoscopy History of selective injection of anesthetic agent around lumbar nerve root History of appendectomy History of embolic filter insertion Hx of jejunostomy History of cholecystectomy H/O: hysterectomy H/O gastric bypass Social History Smoking Status: Never smoker alcohol intake: never substance use type: does not use caffeine: Yes Type: coffee Number of servings: 1 what type of physical activity do you participate in: walking frequency: 1-2 times per week duration: 15-30 minutes/day seatbelt use: always do you feel safe at home: Yes Review of Systems (Anesthesia) ROS Narrative System reviewed and no additional complaints, except as documented.
[2024-09-12 14:40] LABS: International Normalized Ratio 1.5; Prothrombin Time (Protime)PT. 18.2 SECONDS (11.7-14.9)
[2024-09-12] MEDS: Lidocaine 2% (5ml sdv) 5 ML VIAL.MPF (15:19)
[2024-09-12] MEDS: Phenylephrine 0.25% 15 ML NASAL.SRY NASAL (15:19)
[2024-09-12] MEDS: 0.9% Normal Saline (Pres. free 10 ML Vial (15:20)
[2024-09-12] MEDS: Lidocaine Jelly 2% 20 ML Syringe (URO-JET) 1 APPLIC (15:25)
--- NOTE | 2024-09-12 15:44 | OP.BRONCH_ITS ---
Patient Name: Tana Martines Procedure Date: 09/12/2024 2:54 PM Date of : 1955 Age: 69 Procedure: Bronchoscopy Indications: Interstitial lung disease Providers: Brandan Salazar MD Referring MD: Sarah Ch Medicines: Lidocaine 2% applied to cords 9 mL Complications: No immediate complications Procedure: Pre-Anesthesia Assessment: - A History and Physical has been performed. The patient's medications, allergies and sensitivities have been reviewed. - A History and Physical has been performed. The patient's medications, allergies and sensitivities have been reviewed. After I obtained informed consent, the scope was passed under direct vision. Throughout the procedure, the patient's blood pressure, pulse, and oxygen saturations were monitored continuously. The bronchoscope was introduced through the left nostril and advanced to the tracheobronchial tree of both lungs. The procedure was accomplished without difficulty. The patient tolerated the procedure well. Moderate Sedation: An independent trained observer was present and continuously monitored the patient. Findings: Transbronchial biopsies of an area of infiltration were performed in the anterior segment of the left upper lobe using forceps and sent for Histology, possible sarcoid. The procedure was guided by fluoroscopy. Transbronchial biopsy technique was selected because the sampling site was not visible endoscopically. Six biopsy passes were performed. Six biopsy samples were obtained. The bronchoscope was advanced until wedged at the desired location for bronchoalveolar lavage. BAL was performed in the MERI inferior lingular segment (B5) of the lung and sent for cell count, bacterial culture, viral smears & culture, and fungal & AFB analysis and cytology. 90 mL of fluid were instilled. 20 mL were returned. The return was bloody. There were no mucoid plugs in the return fluid. [Multi samples]. Impression: - Transbronchial lung biopsies were performed. Recommendation: - Await test results. MD Brandan Navarro MD 09/12/2024 3:43:57 PM This report has been signed electronically. Number of Addenda: 0 Note Initiated On: 09/12/2024 2:54 PM
--- NOTE | 2024-09-12 15:44 | PCM.POST.ANE ---
Anesthesia: Postop Eval I Current Vital Signs Temperature: 99.1 F Pulse Rate: 79 Blood Pressure: 172/74 Respiratory Rate: 20 Pulse Ox: 98 Oxygen Delivery Method: Room Air Assessment Airway patent: Yes Spontaneous unlabored respirations: Yes Mental status: Awake and Calm nausea: No Vomiting: No Anesthesia Complication: No Fluid Hydration Crystalloid volume administer (ml): 20 Total IV fluid infused: 20 Progress Note Anesthesia document: Postop Eval 1 completed: Yes
--- NOTE | 2024-09-12 15:45 | RAD_ITS ---
EXAM: XR Chest, 1 View CLINICAL INDICATION: POST BRONCH, STAT PORTABLE CXR UPRIGHT TECHNIQUE: Frontal view of the chest. COMPARISON: No relevant prior studies available. FINDINGS: LUNGS AND PLEURAL SPACES: Pulmonary venous congestion. No pneumothorax. HEART: Unremarkable. No cardiomegaly. MEDIASTINUM: Unremarkable. Normal mediastinal contour. BONES/JOINTS: Unremarkable. No acute fracture. TUBES, LINES AND DEVICES: Right-sided Mediport with the distal tip in the SVC. No pneumothorax. Left-sided Mediport with the distal tip in the SVC. No pneumothorax. RAD/Chest 1 View (Portable) IMPRESSION: 1. No pneumothorax. 2. Pulmonary venous congestion. Reading Location: [facility]
--- NOTE | 2024-09-12 15:50 | POSTOPAN2_ITS ---
Anesthesia Postop Eval I Sum Postop Eval Completion status Anesthesia document: Postop Eval 1 completed: Yes Anesthesia Postop Eval I Summary Anesthesia Postop Eval I Summary: Anesthesia Postop Eval I: Assessment Summary Airway patent Yes 09/12/24 15:45 [email or web address] Spontaneous unlabored Yes 09/12/24 15:45 [email or web address] respirations Mental status Awake,Calm 09/12/24 15:45 [email or web address] nausea No 09/12/24 15:45 [email or web address] Vomiting No 09/12/24 15:45 [email or web address] Anesthesia Postop Eval I: Fluid Summary Crystalloid volume administer 20 09/12/24 15:45 [email or web address] (ml) Colloids volume administered ( ml) Blood Product volume administered (ml) Total IV fluid infused 20 09/12/24 15:45 [email or web address] Anesthesia Postop Eval I: Summary Notes Anesthesia Complication No 09/12/24 15:45 [email or web address] Anesthesia Complication Comment: Post-operative progress note Anesthesia: Postop Eval II Evaluation Mental status: Awake Pain Level: 0 nausea: No Vomiting: No
--- NOTE | 2024-09-12 15:50 | PCM.POSTANE2 ---
Anesthesia Postop Eval I Sum Postop Eval Completion status Anesthesia document: Postop Eval 1 completed: Yes Anesthesia Postop Eval I Summary Anesthesia Postop Eval I Summary: Anesthesia Postop Eval I: Assessment Summary Airway patent Yes 09/12/24 15:45 [email or web address] Spontaneous unlabored Yes 09/12/24 15:45 [email or web address] respirations Mental status Awake,Calm 09/12/24 15:45 [email or web address] nausea No 09/12/24 15:45 [email or web address] Vomiting No 09/12/24 15:45 [email or web address] Anesthesia Postop Eval I: Fluid Summary Crystalloid volume administer 20 09/12/24 15:45 [email or web address] (ml) Colloids volume administered ( ml) Blood Product volume administered (ml) Total IV fluid infused 20 09/12/24 15:45 [email or web address] Anesthesia Postop Eval I: Summary Notes Anesthesia Complication No 09/12/24 15:45 [email or web address] Anesthesia Complication Comment: Post-operative progress note Anesthesia: Postop Eval II Evaluation Mental status: Awake Pain Level: 0 nausea: No Vomiting: No
[2024-09-12 16:00] LABS: Cytology, Body Fluid / CSF SEE PATHOLOGY REPORT; Pathologist Comment/Body Fluid May follow
[2024-09-12 19:08] LABS: Appearance/Body Fluid SL CLDY; Color/Body Fluid RED; Source- Body Fluid BRONCHIAL LAVAGE
[2024-09-12 19:09] LABS: Red Cell Count/Body Fluid 3875 /mm3; White Blood Count/Body Fluid 1010 /mm3
[2024-09-12 19:38] LABS: Lymphocytes 6 %; Monocytes 3 %; Neutrophil (Segs) 87 %; Other Cell Type/BF 4 %
[2024-09-14 06:25] LABS: INR Fingerstick 1.5; Prothrombin Time Fingerstick 17.3 SEC (11.7-14.9)
== END 2024-09-12 16:21 | disposition home or self-care (01) ==
LOC: EN 13:42 → AC 13:43
PROVIDERS: PCP Internal Medicine; Referring Provider Internal Medicine; Visit Provider Internal Medicine Pulmonary Disease
PROC: 0BJ08ZZ Inspection of Tracheobronchial Tree, Via Natural or Artificial Opening Endoscopic (ICD-10-PCS; CPT 31622; principal; 2024-09-12 14:30)
DX: J84.9 Interstitial pulmonary disease, unspecified (principal); J45.50 Severe persistent asthma, uncomplicated; Z79.01 Long term (current) use of anticoagulants; Z79.899 Other long term (current) drug therapy; K21.9 Gastro-esophageal reflux disease without esophagitis; E66.09 Other obesity due to excess calories; Z68.35 Body mass index [BMI] 35.0-35.9, adult
CPT/HCPCS: 31624; 31628; 36416; 71045; 76000; 85610; 87015; 87070; 87101; 87116; 87205; 87206; 88108; 88305; 88312; 88313; 89050; A4216

== ENCOUNTER 2024-10-01 13:49 | Outpatient (CLI) | payer MEDICARE, SELFPAY ==
[2024-10-01 15:01] LABS: Absolute Neutrophil Count 4.2 X10^3/uL (2.0-7.7); Basophil# 0.02 X10^3/uL; Basophil% 0.3 % (0-1); Eosinophil# 0.07 X10^3/uL; Eosinophils% 0.9 % (0-5); Hematocrit 36.2 % (37-47); Hemoglobin 12.2 g/dL (12.0-15.0); Lymphocyte % 36.7 % (19-41); Mean Corp Hgb Conc 33.7 g/dL (32-36); Mean Corpuscular Hgb 30.3 pg (27.0-32.0); Mean Corpuscular Volume 89.8 fL (81-99); Mean Platelet Vol. 8.8 fl (6.2-12.0); Monocyte# 0.61 X10^3/uL; Monocyte% 7.7 % (0-10); NRBC Flagged by Analyzer 0 % (0-5); Neutrophil % 53.1 % (47-70); Platelet Count 242 K/mm3 (150-450); RBC Distribution Width CV 15.6 % (11.6-14.6); RBC Distribution Width SD 50.9 fl (35.1-43.9); Red Blood Count 4.03 M/mm3 (4.2-5.4); White Blood Count 7.9 K/mm3 (4.4-11.0)
[2024-10-01 15:17] LABS: Pro- Brain NATRIURETIC PEPTIDE 112 pg/mL (<=900)
[2024-10-01 15:43] LABS: Erythrocyte Sedimentation Rate 3 mm/hr (0-30)
== END 2024-10-01 23:59 | disposition home or self-care (01) ==
LOC: MEDOUTP 13:50
PROVIDERS: PCP Internal Medicine
DX: J84.113 Idiopathic non-specific interstitial pneumonitis (principal)
CPT/HCPCS: 36591; 82085; 83880; 85025; 85652; A4216

== ENCOUNTER → 2024-10-09 | Outpatient (CLI) | payer MEDICARE, SELFPAY ==
[2024-10-09 17:25] LABS: Pro- Brain NATRIURETIC PEPTIDE 133 pg/mL (<=900)
== END | disposition home or self-care (01) ==
PROVIDERS: PCP Internal Medicine; Visit Provider Internal Medicine Pulmonary Disease
DX: J84.113 Idiopathic non-specific interstitial pneumonitis (principal)
CPT/HCPCS: 36415; 83880

== ENCOUNTER → 2024-11-29 | Outpatient (CLI) | payer MEDICARE, SELFPAY ==
--- NOTE | 2024-11-29 14:19 | BD_ITS ---
PROCEDURE: DEXA BONE DENSITY STUDY 11/29/2024 REASON FOR EXAM: F, age 69 y/o . Postmenopausal. TECHNIQUE: DXA scan of sites with data reported below. [facility]KS: [facility] COMPARISON: Prior study dated June 17, 2022. FINDINGS: BMD and T-SCORES Lumbar spine: 0.834 g/cm2, T-score -1.9 Levels: L1 through L4 Change from prior: Loss of 9.3%. Left femoral neck: 0.603 g/cm2, T-score -2.2 Femoral neck comparison data not recommended for monitoring change. Left total hip: 0.775 g/cm2, T-score -1.4 Change from prior: Loss of 9.3%. Right femoral neck: 0.653 g/cm2, T-score -1.8 Femoral neck comparison data not recommended for monitoring change. Right total hip: 0.816 g/cm2, T-score -1.0 Change from prior: Loss of 3.2%. The World Health Organization has defined the following categories based on bone density: Normal bone density: T-score equal to or greater than -1.0 Osteopenia: T-score between -1.0 and -2.5 Osteoporosis: T-score equal to or less than -2.5 The patient does meet the pharmacological treatment recommendations for prevention of osteoporosis. BD/Dexa Bone Density Study IMPRESSION: OSTEOPENIA. Recommend follow-up as clinically warranted. Reading Location: [id number]
--- NOTE | 2024-11-29 14:19 | BI_ITS ---
EXAM: SCRN MAMM (CAD)W/KIMBERLEE BILAT DATE: 11/29/2024 CLINICAL HISTORY: F, Age 69 y/o , SCRN MAMM (CAD)W/KIMBERLEE BILAT: TO BE DONE AFTER 09/25 No family history. BREAST CANCER RISK ASSESSMENT: Not assessed. TECHNIQUE: Bilateral screening digital breast tomosynthesis with 2D and 3D images. Computer aided detection. COMPARISON: Prior exam(s) dated September 08, 2023.. FINDINGS: TISSUE DENSITY: The breast tissue is heterogenously dense, which may obscure small masses. Bilateral Breast Mammographic Findings: No significant masses, calcifications or other abnormalities are identified. No suspicious masses, areas of developing architectural distortion, or suspicious calcifications. There has been no significant interval change. BI/SCRN MAMM (CAD)W/KIMBERLEE BILAT IMPRESSION: OVERALL FINAL ASSESSMENT: BIRADS 1 NEGATIVE RECOMMENDATION: Routine annual follow-up in 1 Year A letter with findings and recommendations will be mailed to the patient. Reading Location: [facility]
== END | disposition home or self-care (01) ==
LOC: OPBD 14:18
PROVIDERS: PCP Internal Medicine; Referring Provider Internal Medicine; Visit Provider Internal Medicine
DX: Z12.31 Encounter for screening mammogram for malignant neoplasm of breast (principal); Z78.0 Asymptomatic menopausal state; M85.80 Other specified disorders of bone density and structure, unspecified site
CPT/HCPCS: 77063; 77067; 77080

== ENCOUNTER → 2024-12-06 | Outpatient (CLI) | payer MEDICARE, SELFPAY ==
--- NOTE | 2024-12-06 12:47 | ECHOD_ITS ---
Reason For Study Reason For Study: Dyspnea/SOB Procedure This was a 2D Doppler, Color Flow transthoracic echocardiogram. The study was technically difficult. Exam performed in department. Left Ventricle Normal left ventricle. The estimated ejection fraction is 55 %. No evidence for diastolic dysfunction. No regional wall motion abnormalities noted. Right Ventricle Normal RV size. Normal systolic function. Atria The left and right atria are normal. No doppler evidence for ASD. Mitral Valve There is no mitral valve stenosis. Trivial mitral valve insufficiency. Tricuspid Valve There is no tricuspid stenosis. Trivial tricuspid valve insufficiency. Pulmonary artery systolic pressure is 30-35 mmHg. Aortic Valve Trisinus/trileaflet aortic valve. There is no aortic stenosis. No aortic valve insufficiency. Pulmonic Valve There is no pulmonic valvular stenosis. No pulmonic valve insufficiency. Great Vessels Normal sized aortic root. Pericardium/Pleural No pericardial effusion. MMode/2D Measurements & Calculations LVIDd: 4.3 cm IVSd: 1.2 cm Ao root diam: 3.0 cm LVIDs: 3.3 cm LVPWd: 1.1 cm RVDd: 3.0 cm FS: 24.4 % LAV(MOD-bp): 43.3 ml LVAd ap4: 25.0 cm2 SV(MOD-sp4): 35.8 ml LAV(MOD-bp) Indexed: 24.7 ml/m2 LVLd ap4: 7.3 cm SI(MOD-sp4): 20.4 ml/m2 LAV(MOD-sp2): 39.9 ml EDV(MOD-sp4): 70.2 ml LAV(MOD-sp4): 46.9 ml EDV(sp4-el): 72.8 ml LVAs ap4: 17.2 cm2 LVLs ap4: 7.1 cm ESV(MOD-sp4): 34.4 ml ESV(sp4-el): 35.6 ml EF(MOD-sp4): 50.9 % EF(sp4-el): 51.1 % SV(sp4-el): 37.2 ml LA A4 area: 16.9 cm2 LA dimension(2D): 4.1 cm RA A4 area: 8.6 cm2 TAPSE: 2.0 cm Time Measurements MV dec time: 0.20 sec Doppler Measurements & Calculations MV E max tony: 85.6 cm/sec Lat Peak E' Tony: 10.8 cm/sec Med Peak E' Tony: 9.9 cm/sec MV A max tony: 133.1 cm/sec E/E' lat: 8.0 E/E' med: 8.7 MV E/A: 0.64 MV V2 max: 173.6 cm/sec MV P1/2t max tony: 119.3 cm/sec Ao V2 max: 177.9 cm/sec MV max P.1 mmHg MV P1/2t: 78.6 msec Ao max P.7 mmHg MV V2 mean: 90.3 cm/sec Ao V2 mean: 121.6 cm/sec MV mean P.9 mmHg MV dec slope: 444.2 cm/sec2 Ao mean P.8 mmHg MV V2 VTI: 31.0 cm MVA(P1/2t): 2.8 cm2 Ao V2 VTI: 35.2 cm AV (velocity ratio): 0.79 LV V1 max: 144.1 cm/sec MR max tony: 489.2 cm/sec PA V2 max: 144.6 cm/sec LV V1 max P.3 mmHg MR max P.7 mmHg LV V1 mean P.7 mmHg LV V1 mean: 101.9 cm/sec LV V1 VTI: 27.9 cm TR max tony: 281.2 cm/sec TR max P.6 mmHg ECHO/Echo Complete Interpretation Summary The estimated ejection fraction is 55 %. No evidence for diastolic dysfunction. Trivial mitral valve insufficiency. Ordering Physician: Kunal Mitchell Referring Physician: Kunal Mitchell Performed By: Saman Alfred RCS
== END | disposition home or self-care (01) ==
LOC: CVS 12:46
PROVIDERS: PCP Internal Medicine; Referring Provider Internal Medicine Cardiovascular Disease; Visit Provider Internal Medicine Cardiovascular Disease
DX: Q21.12 Patent foramen ovale (principal); R06.02 Shortness of breath
CPT/HCPCS: 93306

== ENCOUNTER 2024-12-18 12:04 | Outpatient (CLI) | payer MEDICARE, SELFPAY ==
[2024-12-19 15:08] LABS: Cytoplasmic Ab (C-ANCA) <1:20 titer (Neg:<1:20); Perinuclear Ab (P-ANCA) <1:20 titer (Neg:<1:20)
== END 2024-12-18 23:59 | disposition home or self-care (01) ==
LOC: MEDOUTP 12:08
PROVIDERS: PCP Internal Medicine
DX: J84.9 Interstitial pulmonary disease, unspecified (principal)
CPT/HCPCS: 36591; 82085; 86037; A4216

== ENCOUNTER → 2024-12-26 | Outpatient (CLI) | payer MEDICARE, SELFPAY ==
--- NOTE | 2024-12-26 10:04 | CT_ITS ---
PROCEDURE: CHEST WITHOUT CONTRAST 12/26/2024 REASON FOR EXAM: BRONCHIOLITIS Worsening of dry cough. TECHNIQUE: Chest CT without contrast. Coronal and Sagittal reconstruction series were provided. One or more dose reduction techniques were used (e.g., Automated exposure control, adjustment of the mA and/or kV according to patient size, use of iterative reconstruction technique RADIATION DOSE SUMMARY: CTDlvol: 16.49 mGy DLP: 519.89 mGycm COMPARISON: Prior study dated September 11, 2024. FINDINGS: Hardware: A left-sided port a catheter is seen with the tip in the superior vena cava. A right-sided port a catheter is seen as well with the tip in the superior vena cava. Lymph nodes: Small benign-appearing mediastinal lymph nodes. Heart and Vasculature: The heart is not enlarged Coronary Artery Calcifications: Mild degree of coronary artery calcification. Lungs and Airways: Well aerated. No focal abnormality is seen. Pleura: No pleural effusion. Upper Abdomen: Status post cholecystectomy. Surgical clips are seen in the region of the epigastrium. Findings suggestive of of post gastrectomy Bones: Degenerative changes of the thoracic spine. CT/Chest without Contrast IMPRESSION: Coronary artery calcification (CAC) is is present The lungs are clear. Reading Location: [facility]
== END | disposition home or self-care (01) ==
LOC: CT 10:01
PROVIDERS: PCP Internal Medicine
DX: J21.9 Acute bronchiolitis, unspecified (principal)
CPT/HCPCS: 71250

== ENCOUNTER → 2025-03-25 | Outpatient (CLI) | payer MEDICARE, SELFPAY | END | disposition home or self-care (01) | LOC: MTLAB 16:25 | PROVIDERS: PCP Internal Medicine; Referring Provider Internal Medicine Pulmonary Disease; Visit Provider Internal Medicine Pulmonary Disease | DX: J84.113 Idiopathic non-specific interstitial pneumonitis (principal) ==

== ENCOUNTER 2025-03-26 15:20 | Outpatient (CLI) | payer MEDICARE, SELFPAY ==
[2025-03-26 16:16] LABS: Hematocrit 34.2 % (37-47); Hemoglobin 11.6 g/dL (12.0-15.0); Immature Granulocytes Count 0.090 X10^3/uL (0.0-0.0); Mean Corp Hgb Conc 33.9 g/dL (32-36); Mean Corpuscular Volume 89.1 fL (81-99); Mean Platelet Vol. 8.9 fl (6.2-12.0); NRBC Flagged by Analyzer 0 % (0-5); Platelet Count 367 K/mm3 (150-450); RBC Distribution Width CV 13.2 % (11.6-14.6); RBC Distribution Width SD 43.0 fl (35.1-43.9); Red Blood Count 3.84 M/mm3 (4.2-5.4); White Blood Count 17.2 K/mm3 (4.4-11.0)
[2025-03-26 16:39] LABS: AST(SGOT) 20 U/L (<=31); Alanine Aminotransfer ALT/SGPT 18 U/L (<=34); Albumin, Serum 3.8 g/dL (3.4-4.8); Alkaline Phosphatase 78 U/L (35-104); Anion Gap 12 (5-15); Bilirubin, Direct 0.11 mg/dL (0.00-0.30); CRP 67.50 mg/L (0.0-3.0); Carbon Dioxide 26.6 mmol/L (21.0-32.0); Chloride 91 mmol/L (98-108); Globulin 2.2 g/dL (2.2-4.2); Potassium 4.4 mmol/L (3.3-5.1)
[2025-03-28 16:09] LABS: Angiotensin Convert Enzyme 53 U/L (14-82)
== END 2025-03-26 23:59 | disposition home or self-care (01) ==
LOC: MEDOUTP 15:20
PROVIDERS: PCP Internal Medicine; Referring Provider Internal Medicine Pulmonary Disease; Visit Provider Internal Medicine Pulmonary Disease
DX: J84.113 Idiopathic non-specific interstitial pneumonitis (principal)
CPT/HCPCS: 36591; 80051; 80076; 82164; 85025; 85652; 86140; A4216

== ENCOUNTER → 2025-04-26 | Outpatient (CLI) | payer MEDICARE, SELFPAY | END | disposition home or self-care (01) | LOC: RAD 13:20 | PROVIDERS: PCP Internal Medicine; Referring Provider Internal Medicine; Visit Provider Internal Medicine | DX: M79.672 Pain in left foot (principal) | CPT/HCPCS: 73630 ==